=== PATIENT | male | born 1955 | race Caucasian/White ===

== ENCOUNTER → 2016-12-27 | Outpatient (CLI) | payer BC ==
[~2016-12-27] MED LIST: ACET-1256 PO; ACET325T96 PO; ALBINSX INH; ALBUAER2 INH; ATOR10TA88 PO; BISA10SU7 PR; CEFT1INJ6 IV; CLON1TAB3 PO; CNCI50 IV; CRG3125 PO; CYCL0.052 OPB; CYCL5TAB PO; DAPT500I IV; DOCU100C31 PO; ENOX40IN SQ; FLUO40CA8 PO; FLUT0.15 NAE; FRS/40 PO; FURO-85 PO; FURO80TA63 PO; GABA-113 PO; GABA600T PO; INSDGI SC; INSDGIPEN SC; INSU1INJ2 SC; INSUINJ4 SQ; LACT10SO17 PO; MCRK20 PO; MELA3TAB PO; METO50TA16 PO; METO50TA17 PO; MOME50SP5 NAE; MOME6000 NAE; NF656 TD; NVLGI SC; NXM/40 PO; OMEP40CA41 PO; ONDA4TAB46 PO; OXYC-57 PO; OXYC1TAB3 PO; PANT40TA PO; PENT400T PO; PENT400T2 PO; POLY1POW2 PO; POTA-74 PO; POTA20TA16 PO; PRAM1TAB6 PO; PRED-301 PO; PRED10TA PO; PRED20TA PO; PROM25IN13 IV; PROP10TA7 PO; PROP20TA67 PO; Potassium Chloride PO; QUET1TAB30 PO; REPA1TAB5 PO; RIFA300C34 PO; RIFA550T2 PO; ROTI1DIS3 TD; RSTOPS OP; RXC/5 PO; SIME80CH40 PO; SIMV20TA2 PO; SPIR50TA2 PO; SPR25 PO; SULF800T23 PO; VNTHFA/IN INH; XPNINS125 INH; [UNRECOGNIZED DRUG - CODE]; [UNRECOGNIZED DRUG - CODE] FLUSH; [UNRECOGNIZED DRUG - CODE] IM
--- NOTE | 2016-12-27 13:14 | DIAGNOSTIC IMAGING REPORT ---
MRI LUMBAR SPINE W/O CONTRAST CLINICAL HISTORY: Severe right-sided lumbar radiculopathy. TECHNIQUE: Sagittal and axial T1, T2 and STIR images were obtained. COMPARISON STUDY: No previous studies for comparison. OBSERVATIONS: There is a focal fatty rest/hemangioma at the S2 level. L1-2: No disc protrusions or extrusions. No evidence of spinal canal or neural foraminal compromise. L2-3: There is a tiny left paracentral disc protrusion. There is no significant spinal or foraminal stenosis. L3-4: No disc protrusions or extrusions. No evidence of spinal canal or neural foraminal compromise. L4-5: There is a large extruded disc herniation posteriorly on the right. This deforms the thecal sac, and likely impinges on the right L5 nerve root. L5-S1: No disc protrusions or extrusions. No evidence of spinal canal or neural foraminal compromise. The conus medullaris and cauda equina appear normal. IMPRESSION: 1. Large right-sided extruded disc herniation at the L4-5 level. The disc material extends posterior to the L5 vertebra. There is secondary thecal sac deformity and probable impingement on the right L5 nerve root 2. Tiny left paracentral disc protrusion at the L2-3 level. Electronically signed by: Ian Jones M.D. 12/27/2016 1:12 PM Dictated Date/Time: 12/27/2016 1:07 PM
== END | disposition home or self-care (01) ==
LOC: C.MRI 12:07
PROVIDERS: ATTEND Internal Medicine
DX: M54.16 Radiculopathy, lumbar region (principal); M51.26 Other intervertebral disc displacement, lumbar region

== ENCOUNTER → 2017-01-26 | Outpatient (CLI) | payer BC ==
--- NOTE | 2017-01-26 09:46 | DIAGNOSTIC IMAGING REPORT ---
ABDOMINAL ULTRASOUND COMPLETE HISTORY: Pain. Nausea. ABD PAIN, NAUSEA. COMPARISON: None. FINDINGS: Pancreas: The pancreas demonstrates a normal echotexture. Liver: Fatty infiltration Gallbladder: Slight thickening of the gallbladder wall at 4 mm. Trace amount of pericholecystic fluid. CBD: 8 mm considered slightly prominent Kidneys: No hydronephrosis. Spleen: Mildly enlarged at 14 cm Aorta: Normal in caliber. IVC: Patent. IMPRESSION: 1 slight gallbladder wall thickening with a trace amount of pericholecystic edematous change 2. Mild prominence extra hepatic common bile duct at 8 mm. 3. Fatty infiltration of liver. 4. Splenomegaly at 14 cm. 5. Possibility of a calculus cholecystitis is a diagnostic possibility. Biliary scanning would be helpful in this regard. Electronically signed by: Naga Vázquez M.D. 01/26/2017 9:45 AM Dictated Date/Time: 01/26/2017 9:43 AM
== END | disposition home or self-care (01) ==
LOC: C.ULTR 07:21
PROVIDERS: ATTEND Internal Medicine
DX: R10.10 Upper abdominal pain, unspecified (principal); R11.0 Nausea; K76.0 Fatty (change of) liver, not elsewhere classified; R16.1 Splenomegaly, not elsewhere classified; R93.2 Abnormal findings on diagnostic imaging of liver and biliary tract

== ENCOUNTER → 2017-01-31 | Outpatient (CLI) | payer BC ==
[~2017-01-31] MED LIST changes: +SINCALIDE INJ 2 MCG in SODIUM CHLORIDE 0.9% 100ML 100 ML IV ONE
--- NOTE | 2017-01-31 12:57 | DIAGNOSTIC IMAGING REPORT ---
NUCLEAR MEDICINE HEPATOBILIARY SCAN WITH GALLBLADDER EJECTION FRACTION CLINICAL HISTORY: Suspected calculus cholecystitis. COMPARISON: Abdominal ultrasound January 26, 2017. TECHNIQUE: 5.4 mCi of technetium 99m Choletec IV was injected at 10:30 AM on January 31, 2017. Immediately following injection, imaging of the abdomen was carried out for 60 minutes in the anterior projection. At this time, 2 mcg of Sincalide was injected IV as per protocol. Imaging was performed for an additional 45 minutes to estimate a gallbladder ejection fraction. FINDINGS: Hepatic uptake of radiotracer is prompt and homogeneous. Radiotracer is first identified within the gallbladder and common bile duct at 15 minutes. Following injection of sincalide, normal gallbladder emptying was noted with estimated ejection fraction of 77%. Normal is greater than 30-35%. IMPRESSION: 1. Normal hepatobiliary scan. No evidence of acute or chronic cholecystitis. 2. Normal gallbladder ejection fraction of 77%. Electronically signed by: Shayne Buchanan M.D. 01/31/2017 12:55 PM Dictated Date/Time: 01/31/2017 12:46 PM
== END | disposition home or self-care (01) ==
LOC: C.NUCL 10:07
PROVIDERS: ATTEND Internal Medicine
DX: K80.20 Calculus of gallbladder without cholecystitis without obstruction (principal)

== ENCOUNTER → 2017-02-03 | Outpatient (CLI) | payer BC ==
[~2017-02-03] MED LIST changes: -SINCALIDE INJ 2 MCG in SODIUM CHLORIDE 0.9% 100ML 100 ML IV ONE
== END | disposition home or self-care (01) ==
LOC: C.LABSPEC 12:30
PROVIDERS: ATTEND Internal Medicine
DX: E11.9 Type 2 diabetes mellitus without complications (principal); Z12.11 Encounter for screening for malignant neoplasm of colon

== ENCOUNTER → 2017-02-03 | Outpatient (CLI) | payer BC | END | disposition home or self-care (01) | LOC: C.LABSPEC 18:01 | PROVIDERS: ATTEND Internal Medicine | DX: Z12.11 Encounter for screening for malignant neoplasm of colon (principal) ==

== ENCOUNTER → 2017-02-10 | Outpatient (CLI) | payer BC ==
[~2017-02-10] MED LIST changes: +OPTIRAY 320 IV PRN
--- NOTE | 2017-02-10 12:30 | DIAGNOSTIC IMAGING REPORT ---
CT ABDOMEN COMBO CT DOSE: 2843.42 mGy.cm CLINICAL HISTORY: NAUSEA, WEIGHT LOSS,VOMITING *scoliosis. Liver lesions. TECHNIQUE: Unenhanced images were obtained through the upper abdomen. Patient was then scanned in a dynamic helical fashion during intravenous administration of 117 cc Optiray 320. Arterial phase and portal phase imaging was performed. COMPARISON STUDY: None. FINDINGS: The visualized portions the lung bases reveal mediastinal and hilar lymphadenopathy with areas of calcification. There is low volume ascites. There is a 4 mm left renal calculus. Postcontrast images reveal no space-occupying hepatic masses. The portal vein is patent. There is a slight nodular contour of the liver. Cirrhosis is suspected. There is recannulization of the umbilical vein. There is low volume ascites. There is nonspecific pericholecystic edema which may be secondary to hepatocellular disease. There is a tiny calcification abutting the gallbladder wall. No splenic masses are visualized. The spleen is enlarged measuring 15.5 cm. No pancreatic masses are visualized. No adrenal masses are visualized. No solid renal masses are visualized. There are multiple left renal hypodensities, the largest of which measures 8 mm. These likely represent cysts. There is no evidence of abdominal aortic dilatation. There is minimal mesenteric edema. There are scattered mildly prominent retroperitoneal and peripancreatic lymph nodes, likely reactive. IMPRESSION: 1. Cirrhotic morphology of the liver. No hepatic masses identified. Recannulization of the umbilical vein. 2. Splenomegaly 3. Low volume ascites 4. Nonobstructing left renal calculus 5. Gallbladder wall edema/pericholecystic fluid, likely secondary to hepatocellular disease 6. Mildly prominent retroperitoneal and peripancreatic lymph nodes, likely reactive. 7. Mediastinal and hilar lymphadenopathy Electronically signed by: Ian Jones M.D. 02/10/2017 12:29 PM Dictated Date/Time: 02/10/2017 12:21 PM
== END | disposition home or self-care (01) ==
LOC: C.CTS 11:41
PROVIDERS: ATTEND Internal Medicine Gastroenterology
DX: R11.0 Nausea (principal); K74.60 Unspecified cirrhosis of liver; N20.0 Calculus of kidney; R16.1 Splenomegaly, not elsewhere classified; R59.0 Localized enlarged lymph nodes

== ENCOUNTER → 2017-02-14 | Outpatient (CLI) | payer BC ==
[~2017-02-14] MED LIST changes: -OPTIRAY 320 IV PRN
--- NOTE | 2017-02-14 11:24 | DIAGNOSTIC IMAGING REPORT ---
MRI abdomen MRCP CLINICAL HISTORY: ABNORMAL LFT STAT elevated liver function tests TECHNIQUE: Multi axial MRI acquisition COMPARISON STUDY: CT dated 02/10/2017 FINDINGS: Lung bases appear clear. Components of hepatic cirrhosis. Trace perihepatic ascites. Gallbladder shows slightly edematous wall with a trace mastoid fluid. Biliary ductal system on the MRCP comparison study is unremarkable. There is no evidence for choledocholithiasis. Signal characteristics of the pancreas are unremarkable. Kidneys show moderate cortical scarring. There are negative for hydronephrosis. There is a 1 cm left renal cyst. Bowel pattern is nonobstructive. Moderate splenomegaly. IMPRESSION: 1. Mild hepatic cirrhotic change. 2. Trace Ascites. 3. Moderate splenomegaly. 4. Negative MRCP component of the study. 5. Slight gallbladder wall thickening and/or trace cholecystic edematous change raising possibility of changes secondary to hepatocellular dysfunction, although possibly of a calculus cholecystitis is not excluded. Electronically signed by: Naga Vázquez M.D. 02/14/2017 11:22 AM Dictated Date/Time: 02/14/2017 11:16 AM
== END | disposition home or self-care (01) ==
LOC: C.MRI 10:14
PROVIDERS: ATTEND Internal Medicine Gastroenterology
DX: R79.89 Other specified abnormal findings of blood chemistry (principal)

== ENCOUNTER 2017-03-08 12:11 | Emergency (ER) | payer BC ==
[~2017-03-08] VITALS: Ht 172.7 cm; Wt 105.9 kg
[~2017-03-08 12:11] MED LIST changes: -ACET-1256 PO; -ACET325T96 PO; -ALBINSX INH; +ATOR10TA82 PO; -ATOR10TA88 PO; -BISA10SU7 PR; -CEFT1INJ6 IV; -CNCI50 IV; -CYCL0.052 OPB; -CYCL5TAB PO; -DAPT500I IV; -DOCU100C31 PO; -ENOX40IN SQ; -FLUO40CA8 PO; -FLUT0.15 NAE; -FRS/40 PO; -FURO-85 PO; -FURO80TA63 PO; -GABA-113 PO; -GABA600T PO; -INSDGI SC; -INSDGIPEN SC; -INSU1INJ2 SC; -LACT10SO17 PO; -MCRK20 PO; -MELA3TAB PO; -METO50TA16 PO; -METO50TA17 PO; -MOME6000 NAE; -NF656 TD; -OMEP40CA41 PO; -ONDA4TAB46 PO; -OXYC-57 PO; -OXYC1TAB3 PO; -PANT40TA PO; -PENT400T2 PO; -POLY1POW2 PO; -POTA20TA16 PO; -PRED10TA PO; -PRED20TA PO; -PROM25IN13 IV; -PROP10TA7 PO; -PROP20TA67 PO; -Potassium Chloride PO; -QUET1TAB30 PO; -REPA1TAB5 PO; -RIFA300C34 PO; -RIFA550T2 PO; -RXC/5 PO; -SIME80CH40 PO; -SIMV20TA2 PO; -SPIR50TA2 PO; -SPR25 PO; -VNTHFA/IN INH; -XPNINS125 INH; -[UNRECOGNIZED DRUG - CODE] FLUSH
[2017-03-08 12:32] VITALS: TEMP 36.7; Ht 172.7 cm; Wt 105.9 kg
[2017-03-08] MEDS ORDERED: MoRPHine SULFATE 10 MG/ML CARP/VIAL IV STA (13:18)
[2017-03-08] MEDS ORDERED: ONDANSETRON INJ 2 MG/ML 2 ML VIAL IV STA (13:18)
[2017-03-08] MEDS ORDERED: SODIUM CHLORIDE 0.9% 500ML 500 ML IV STA (13:27)
[2017-03-08] MEDS ORDERED: MoRPHine SULFATE 4 MG/ML 1 ML CARP\\VIAL ONE (13:56)
[2017-03-08 14:08] LABS: HEMATOCRIT 39.6 % (42-52); MEAN CELL VOLUME 98.3 fL (80-100); MEAN CORPUSCULAR HGB CONC 33.6 g/dl (32-36); MEAN PLATELET VOLUME 11.3 fL (7.4-10.4); PLATELET COUNT 60 K/uL (130-400); RED BLOOD COUNT 4.03 M/uL (4.7-6.1); WHITE BLOOD COUNT 4.58 K/uL (4.8-10.8)
[2017-03-08 14:18] LABS: BUN/CREATININE RATIO 14.7 (10-20); CALCIUM 8.7 mg/dl (8.5-10.1); CREATININE 0.76 mg/dl (0.60-1.40); POTASSIUM 3.4 mmol/L (3.5-5.1)
[2017-03-08 14:23] LABS: BASO % 0.7 %; BASO ABS # 0.03 K/uL (0-0.2); COMPLETE YES; EOS % 1.3 %; IG% 0.2 %; LYMPH % 11.6 %; LYMPH ABS # 0.53 K/uL (1.2-3.4); MONO % 10.7 %; NEUT % 75.5 %
[2017-03-08] MEDS ORDERED: HYDROmorphone INJ 0.5 MG/0.5 ML SYR IV STA ×2 (14:38→16:51)
[2017-03-08] MEDS ORDERED: VNTHFA/IN INH (14:46)
[2017-03-08] MEDS ORDERED: CYCL0.052 OPB (14:46)
[2017-03-08] MEDS ORDERED: MOME6000 NAE (14:46)
[2017-03-08] MEDS ORDERED: PRED10TA PO (14:46)
[2017-03-08] MEDS ORDERED: GABA600T PO (14:46)
[2017-03-08] MEDS ORDERED: INSDGIPEN SC (14:46)
[2017-03-08] MEDS ORDERED: INSU1INJ2 SC (14:46)
[2017-03-08] MEDS ORDERED: OXYC1TAB3 PO (16:54)
[2017-03-08 17:26] VITALS: BP 128/79; PULSE 74; O2SAT 95
--- NOTE | 2017-03-08 18:39 | EMERGENCY ROOM VISIT NOTE ---
History First contact with patient: 13:03 Chief Complaint: BACK PAIN Stated Complaint: SEVERE BACK PAIN History of Present Illness The patient is a 62 year old male who presents to the Emergency Room with his with complaints of severe lower back pain radiating down both legs. The patient reports a recent MRI showing a large herniated disc. He was seen by Dr. Alexis who wanted to try conservative management. The patient reports that he has been doing well over the past few months until he twisted his back on Monday and now has worsening pain. The patient reports that he has had pain radiating all the way down the right lower extremity to the foot, which is unchanged over the past few months. He now reports increasing pain radiating into the left posterior thigh and buttock. He denies any change in lower extremity strength, saddle anesthesias or bladder/bowel difficulties/ incontinence. The patient reports that he has an appointment at the [facility] this Monday at 7:30 AM. The patient reports that "there is no way in hell I will make it until that appointment". He rates his discomfort a 9 out of 10. The reports that the patient has been taking Tylenol with Codeine at home without any pain relief. This medication was prescribed by his PCP, Dr. Yas Savage. 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 Social History Smoking Status: Never Smoker Alcohol Use: none Drug Use: none Marital Status: Housing Status: lives with family Occupation Status: retired Current/Historical Medications Scheduled Albuterol Hfa (Ventolin Hfa), 2-4 PUFFS INH Q6H Atorvastatin (Lipitor), 10 MG PO DAILY Clonazepam (Klonopin), 1.5 MG PO HS Cyclosporine (Ophth) (Restasis), 1 DROP OP BID Esomeprazole Magnesium (Nexium), 40 MG PO DAILY Gabapentin (Neurontin), 600 MG PO HS Insulin Aspart (Novolog Penfill), SC AC Insulin Glargine (Lantus Solostar), 40 UNITS SC AMPM Mometasone Furoate (Nasal) (Mometasone Furoate), 2 SPRAYS JORGE DAILY Potassium Chloride (Potassium Chloride Er), 30 MG PO BID Pramipexole Dihydrochloride (Pramipexole Dihydrochlori), 1 MG PO HS Prednisone Tab (Prednisone), 10 MG PO DAILY Scheduled PRN Oxycodone Ir (Roxicodone Ir), 1-2 TAB PO Q4H PRN for Pain Allergies Coded Allergies: Celecoxib (Verified Allergy, Intermediate, HIVES, 03/08/17) Penicillins (Verified Allergy, Intermediate, HIVES, 03/08/17) Physical Exam Vital Signs Date Time Temp Pulse Resp B/P Pulse Ox O2 Delivery O2 Flow Rate FiO2 03/08/17 17:26 74 18 128/79 95 03/08/17 15:09 81 14 131/76 92 Room Air 03/08/17 13:22 89 16 115/70 96 Room Air 03/08/17 12:32 36.7 86 18 114/72 93 Room Air Physical Exam CONSTITUTIONAL: Obese male, alert and oriented X 3 with positive affect. The patient appears in moderate discomfort. HEENT: Normocephalic, atraumatic. Pupils equal, round and reactive. NECK: Full active range of motion without discomfort. RESPIRATORY: Clear to auscultation bilaterally with no wheezing, crackles, rhonchi or stridor. CARDIOVASCULAR: Regular rate and rhythm with no murmurs, rubs or gallops. GASTROINTESTINAL: Bowel sounds present in all quadrants. Soft and nontender to palpation. MUSCULOSKELETAL: Examination shows diffuse tenderness to palpation of bilateral lower lumbar paraspinous muscles and SI joints. Negative logroll bilaterally. Positive right straight leg raise. Ankle plantar/torsion flexion strength is 4 out of 5 and symmetric bilaterally. INTEGUMENTARY: No rash or other significant dermatologic conditions noted. NEUROLOGIC: Lower extremity deep tendon reflexes are 2+ and symmetric bilaterally. The patient does have decreased sensation in the lower extremities from neuropathy. Medical Decision & Procedures Laboratory Results 03/08/17 13:34 Red Blood Count 4.03, Mean Corpuscular Volume 98.3, Mean Corpuscular Hemoglobin 33.0, Mean Corpuscular Hemoglobin Concent 33.6, Mean Platelet Volume 11.3, Neutrophils (%) (Auto) 75.5, Lymphocytes (%) (Auto) 11.6, Monocytes (%) (Auto) 10.7, Eosinophils (%) (Auto) 1.3, Basophils (%) (Auto) 0.7, Neutrophils # (Auto ) 3.46, Lymphocytes # (Auto) 0.53, Monocytes # (Auto) 0.49, Eosinophils # (Auto ) 0.06, Basophils # (Auto) 0.03 03/08/17 13:34 Test 03/08/17 13:34 White Blood Count 4.58 K/uL (4.8-10.8) Red Blood Count 4.03 M/uL (4.7-6.1) Hemoglobin 13.3 g/dL (14.0-18.0) Hematocrit 39.6 % (42-52) Mean Corpuscular Volume 98.3 fL (80-100) Mean Corpuscular Hemoglobin 33.0 pg (25-34) Mean Corpuscular Hemoglobin Concent 33.6 g/dl (32-36) Platelet Count 60 K/uL (130-400) Mean Platelet Volume 11.3 fL (7.4-10.4) Neutrophils (%) (Auto) 75.5 % Lymphocytes (%) (Auto) 11.6 % Monocytes (%) (Auto) 10.7 % Eosinophils (%) (Auto) 1.3 % Basophils (%) (Auto) 0.7 % Neutrophils # (Auto) 3.46 K/uL (1.4-6.5) Lymphocytes # (Auto) 0.53 K/uL (1.2-3.4) Monocytes # (Auto) 0.49 K/uL (0.11-0.59) Eosinophils # (Auto) 0.06 K/uL (0-0.5) Basophils # (Auto) 0.03 K/uL (0-0.2) RDW Standard Deviation 57.3 fL (36.4-46.3) RDW Coefficient of Variation 16.0 % (11.5-14.5) Immature Granulocyte % (Auto) 0.2 % Immature Granulocyte # (Auto) 0.01 K/uL (0.00-0.02) Anion Gap 6.0 mmol/L (3-11) Est Creatinine Clear Calc Drug Dose 115.8 ml/min Estimated GFR () 111.7 Estimated GFR (Non- 96.4 BUN/Creatinine Ratio 14.7 (10-20) Calcium Level 8.7 mg/dl (8.5-10.1) The above labs were reviewed. Medications Administered Medications (Trade) Dose Ordered Sig/Nathalia Route Start Time Stop Time Status Last Admin Dose Admin Ondansetron HCl 4 mg 4 mg NOW STAT IV 03/08/17 13:18 03/08/17 13:21 DC 03/08/17 13:57 4 MG Sodium Chloride (Nss 500ml) 500 ml @ 999 mls/hr Q31M STAT IV 03/08/17 13:27 03/08/17 13:57 DC 03/08/17 13:57 999 MLS/HR Morphine Sulfate (MoRPHine SULFATE INJ) 8 mg STK-MED ONCE .ROUTE 03/08/17 13:56 03/08/17 13:57 DC 03/08/17 13:56 8 MG Hydromorphone HCl (Dilaudid Inj) 0.5 mg NOW STAT IV 03/08/17 14:38 03/08/17 14:45 DC 03/08/17 15:09 0.5 MG Hydromorphone HCl (Dilaudid Inj) 0.5 mg NOW STAT IV 03/08/17 16:51 03/08/17 16:52 DC 03/08/17 17:00 0.5 MG Procedure 1. IV hydration: The patient received a normal saline 500 mL bolus 2. IV medications: The patient was initially administered morphine 8 mg and Zofran 4 mg IVP. He received an additional dose of Dilaudid 0.5 mg IVP after the initial morphine did not provide any significant relief. The patient received an additional Dilaudid 0.5 mg IVP prior to discharge. ED Course Patient history and physical exam were performed. Nurse's notes were reviewed. Vital signs were reviewed and were normal except for an O2 saturation of 93% on room air. I also reviewed the patient's last MRI dated 12/27/16, showing a large right sided extruded disc herniation at L4 5 level. The disc material extends posterior to the L5 vertebra. There is secondary thecal sac deformity and probable impingement on the right L5 nerve root. A tiny left paracentral disc protrusion at L2 3 level is also noted. For best titration of pain control, I did suggest establishing an IV. The patient was in agreement. In case the patient will require surgical intervention within the next 30 days, I also elected to draw labs. IV access was established, and the patient received analgesics and antiemetics as discussed in the previous Procedure section. The patient did not have any significant relief after his first IV dose of morphine. He was then given IV Dilaudid with moderate relief of his pain. Labs were reviewed and were normal. At this point, I discussed further disposition with the patient. 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 He reports that he cannot miss this closing. He also stated that if he would be admitted for simply pain control, he would rather go home. He would prefer to have surgery if he does come into the hospital. At this point, I discussed the case further with Dr. Alexis, who reports that the surgery would not happen a timely manner for him to attend the closing. He suggested hospitalist consultation as needed if needed for additional pain management. Otherwise he will see the patient in his office on Monday. This was discussed with the patient. He elected discharge with stronger pain medications. The patient was administered an additional IV Dilaudid prior to discharge, and was provided a prescription for OxyIR 5 mg. He was warned about sedation and constipation while taking this medication. The patient also on until no if he could take prednisone as he has a lot of this medication at home. The patient reports that it does not really miss with his blood glucose levels. He was encouraged to start a prednisone taper at 60 mg, decreasing 10 mg every day until finished. He will follow-up with the pain clinic on Monday, and call Dr. Alexis's office to arrange further follow-up. The patient was instructed to return to the emergency department for any uncontrollable pain or other concerning neurologic symptoms. I did brief patient and regarding the symptoms to watch for that are associated with cauda equina syndrome or other emergent compressive neuropathy. I also instructed him to call his PCP to advise him of his ED evaluation, and to provide additional analgesics as needed. The patient was happy with plan of care, voiced understanding of all discharge instructions, and rated his pain a 4 out of 10 at the conclusion of my exam. Medical Decision At this point, the patient has an MRI proven disc herniation with fragment. History and clinical exam does not show any symptoms consistent with an emergent compressive neuropathy or cauda equina syndrome. The patient is currently refusing hospitalist evaluation or observation for his pain. Impression Primary Impression: Lumbar disc herniation with radiculopathy Departure Information Prescriptions Oxycodone Ir (Roxicodone Ir) 5 Mg Tab 1-2 TAB PO Q4H Y for Pain, #36 TAB For Initial Treatment Prov: Jose Miguel Rivera PA 03/08/17 Referrals Hu Ackerman M.D. (PCP) Patient Instructions My [facility]
[2017-03-13] MEDS ORDERED: FRS/40 PO (14:19)
[2017-03-13] MEDS ORDERED: FLUO40CA8 PO (14:19)
[2017-03-13] MEDS ORDERED: Potassium Chloride PO (14:19)
[2017-03-13] MEDS ORDERED: PENT400T2 PO (14:19)
[2017-03-14] MEDS ORDERED: OXYC-57 PO (09:32)
[2017-03-18] MEDS ORDERED: OXYC-57 PO (08:24)
[2017-04-09] MEDS ORDERED: DAPT500I IV (09:58)
[2017-04-09] MEDS ORDERED: XPNINS125 INH (09:58)
[2017-04-09] MEDS ORDERED: [UNRECOGNIZED DRUG - CODE] FLUSH (09:58)
[2017-04-09] MEDS ORDERED: SPR25 PO (09:58)
[2017-04-09] MEDS ORDERED: MCRK20 PO (09:58)
[2017-04-09] MEDS ORDERED: METO50TA17 PO (09:58)
[2017-07-22] MEDS ORDERED: ATOR10TA82 PO (01:13)
[2017-08-01] MEDS ORDERED: CNCI50 IV (08:17)
== END 2017-03-08 17:28 | disposition home or self-care (01) ==
LOC: C.EDB 12:12 → C.EDC 17:28
DX: M51.16 Intervertebral disc disorders with radiculopathy, lumbar region (principal); I10 Essential (primary) hypertension; E78.5 Hyperlipidemia, unspecified; E11.43 Type 2 diabetes mellitus with diabetic autonomic (poly)neuropathy; J45.909 Unspecified asthma, uncomplicated; D64.9 Anemia, unspecified; K21.9 Gastro-esophageal reflux disease without esophagitis; G47.30 Sleep apnea, unspecified; Z87.442 Personal history of urinary calculi; Z86.19 Personal history of other infectious and parasitic diseases; Z79.4 Long term (current) use of insulin; Z79.899 Other long term (current) drug therapy; Z88.0 Allergy status to penicillin; Z88.8 Allergy status to other drugs, medicaments and biological substances

== ENCOUNTER → 2017-03-10 | Outpatient (CLI) | payer BC ==
[~2017-03-10] MED LIST changes: +ACET-1256 PO; +ACET325T96 PO; +ALBINSX INH; -ALBUAER2 INH; +BISA10SU7 PR; +CEFT1INJ6 IV; +CNCI50 IV; -CRG3125 PO; +CYCL0.052 OPB; +CYCL5TAB PO; +DAPT500I IV; +DOCU100C31 PO; +ENOX40IN SQ; +FLUO40CA8 PO; +FLUT0.15 NAE; +FRS/40 PO; +FURO-85 PO; +FURO80TA63 PO; +GABA-113 PO; +GABA600T PO; +INSDGI SC; +INSDGIPEN SC; +INSU1INJ2 SC; -INSUINJ4 SQ; +LACT10SO17 PO; +MCRK20 PO; +MELA3TAB PO; +METO50TA16 PO; +METO50TA17 PO; -MOME50SP5 NAE; +MOME6000 NAE; +NF656 TD; -NVLGI SC; +OMEP40CA41 PO; +ONDA4TAB46 PO; +OXYC-57 PO; +OXYC1TAB3 PO; +PANT40TA PO; -PENT400T PO; +PENT400T2 PO; +POLY1POW2 PO; +POTA20TA16 PO; -PRED-301 PO; +PRED10TA PO; +PRED20TA PO; +PROM25IN13 IV; +PROP10TA7 PO; +PROP20TA67 PO; +Potassium Chloride PO; +QUET1TAB30 PO; +REPA1TAB5 PO; +RIFA300C34 PO; +RIFA550T2 PO; -ROTI1DIS3 TD; -RSTOPS OP; +RXC/5 PO; +SIME80CH40 PO; +SIMV20TA2 PO; +SPIR50TA2 PO; +SPR25 PO; -SULF800T23 PO; +VNTHFA/IN INH; +XPNINS125 INH; -[UNRECOGNIZED DRUG - CODE]; +[UNRECOGNIZED DRUG - CODE] FLUSH; -[UNRECOGNIZED DRUG - CODE] IM
--- NOTE | 2017-03-10 17:14 | DIAGNOSTIC IMAGING REPORT ---
MRI OF THE LUMBAR SPINE WITHOUT IV CONTRAST CLINICAL HISTORY: Low back pain. Lower extremity radiculopathy. COMPARISON STUDY: MRI of the lumbar spine dated 12/27/2016. TECHNIQUE: MRI of the lumbar spine is performed utilizing various T1 and T2-weighted sequences in the axial and sagittal planes. IV contrast was not administered for this examination. FINDINGS: Lumbar spine: Vertebral body height and alignment are maintained throughout the lumbar spine. Normal marrow signal intensity is preserved throughout the visualized bony structures. The transverse and spinous processes are intact as imaged. There is no evidence of spondylolysis. Minimal chronic degenerative endplate change is noted at L4-L5. Intervertebral discs: There is degenerative disc desiccation seen throughout the lumbar spine. Mild loss of height is noted at L2-L3. Spinal cord: The imaged spinal cord is normal in morphology and signal intensity. The conus medullaris terminates at the level of L1. The nerve roots of the cauda equina are normal in morphology. L1-L2: Unremarkable. L2-L3: There is broad-based posterior disc bulge eccentric to the left. This causes mild to moderate acquired compromise of the central canal with a minimum AP diameter of 8.5 mm. This causes left-sided subarticular stenosis, and likely impinges on the exiting left L2 and the transiting left L3 nerve roots. The neural foramina are patent. L3-L4: There is mild posterior disc bulge. The central canal and neural foramina are patent. L4-L5: There is a large posterior disc herniation eccentric to the right. An inferiorly extruded fragment measures up to 1.8 cm. This causes only minimal effacement of the right anterior thecal sac. The disc fragment impinges on the transiting right L5 nerve root. There is right-sided subarticular stenosis. Facet arthropathy causes minimal bilateral neural foraminal narrowing. L5-S1: Unremarkable. Sacrum: Visualized sacrum is normal in morphology and signal intensity. Soft tissues: The bladder wall appears mildly thickened and trabeculated suggesting chronic outlet obstruction. The paraspinous soft tissues are within normal limits. IMPRESSION: 1. Again seen is a large disc herniation eccentric to the right at L4-L5 with an inferiorly extruded fragment. This impinges on the transiting right L5 nerve root. 2. Progressive disc bulge at L2-L3 as compared to 12/27/2016. This causes mild to moderate acquired compromise of the central canal. 3. Additional findings as above. Dictated: 03/10/2017 2:56 PM Transcribed: 03/10/2017 5:13 PM EVONNE_Troy Electronically signed by: Gianni Hewitt M.D. 03/11/2017 1:18 AM Dictated Date/Time: 03/10/2017 2:56 PM
== END | disposition home or self-care (01) ==
PROVIDERS: ATTEND Orthopaedic Surgery Orthopaedic Surgery of the Spine
DX: M51.26 Other intervertebral disc displacement, lumbar region (principal); M48.06 Spinal stenosis, lumbar region; R29.818 Other symptoms and signs involving the nervous system

== ENCOUNTER 2017-03-24 17:49 | Inpatient (IN) | payer BC, OTHER ==
[~2017-03-24] VITALS: Ht 170.2 cm; Wt 95.9 kg
[~2017-03-24 17:49] MED LIST changes: -ACET-1256 PO; -ACET325T96 PO; -ALBINSX INH; -BISA10SU7 PR; -CEFT1INJ6 IV; -CNCI50 IV; -CYCL5TAB PO; -DAPT500I IV; -DOCU100C31 PO; -ENOX40IN SQ; -FLUT0.15 NAE; -FURO-85 PO; -FURO80TA63 PO; -GABA-113 PO; -GABA600T PO; -INSDGI SC; -LACT10SO17 PO; -MCRK20 PO; -MELA3TAB PO; -METO50TA16 PO; -METO50TA17 PO; -NF656 TD; -OMEP40CA41 PO; -ONDA4TAB46 PO; -OXYC1TAB3 PO; -PANT40TA PO; -POLY1POW2 PO; -POTA-74 PO; -POTA20TA16 PO; -PRED20TA PO; -PROM25IN13 IV; -PROP10TA7 PO; -PROP20TA67 PO; -QUET1TAB30 PO; -REPA1TAB5 PO; -RIFA300C34 PO; -RIFA550T2 PO; -RXC/5 PO; -SIME80CH40 PO; -SIMV20TA2 PO; -SPIR50TA2 PO; -SPR25 PO; -XPNINS125 INH; -[UNRECOGNIZED DRUG - CODE] FLUSH
[2017-03-24] MEDS ORDERED: ONDANSETRON INJ 2 MG/ML 2 ML VIAL IV STA (18:24)
[2017-03-24] MEDS ORDERED: SODIUM CHLORIDE 0.9% 1000ML 1,000 ML IV STA (18:24)
[2017-03-24] MEDS ORDERED: HYDROmorphone INJ 1 MG/ML SYR IV STA ×2 (18:24→19:25)
--- NOTE | 2017-03-24 18:28 | EMERGENCY ROOM VISIT NOTE ---
History Report prepared by Teresa: Master Flower Under the Supervision of: Dr. Abram Mohamud M.D. First contact with patient: 18:19 Chief Complaint: BACK PAIN Stated Complaint: LOWER BACK PAIN History of Present Illness The patient is a 62 year old male who presents to the Emergency Room via ALS with complaints of persistent back pain that started a week ago after having L4- L5 fusion surgery performed for a herniated disc. The patient had the surgery done by Dr. Gray. The patient has not seen Dr. Gray for a follow up yet, but it is scheduled for next week. Per the patient's family, the patient has had back pain ever since the surgery, and he has been taking so many pain medications, that the patient has been extremely groggy and is not eating or drinking. The patient has been noted to be barely getting out of bed due to the grogginess. He has been being given Oxycodone 5 mg. He was also given Flexeril 5 mg a couple times. The patient also has a hematoma on his back that started when he came back from the hospital. He is noted to have had a low grade fever last night, but his temperature has gone back down today. He is diabetic. Source of History: patient, family Onset: A week ago Position: back Timing: other (persistent) Associated Symptoms: + fevers (last night) Note: Associated symptoms: Groggy and hardly eating due to pain medications. Barely getting out of bed. Hematoma on back. Review of Systems See HPI for pertinent positives & negatives. A total of 10 systems reviewed and were otherwise negative. Past Medical & Surgical Medical Problems: (1) ACUTE RESP.FAIL.,SARCOIDOSIS (2) Anemia (3) Asthma (4) Diabetic autonomic neuropathy (5) GERD (gastroesophageal reflux disease) (6) HEPATIC ENCEPHALOPATHY. SARCOIDOSIS. DM2,POST LUMBAR DISC SURGERY (7) HERNIATED L4-L5 DISC (8) Hyperlipidemia (9) Hypertension (10) Kidney stone (11) Lumbar stenosis with neurogenic claudication (12) Obesity (13) Sarcoidosis (14) Septal defect (15) SEVERE CELLULITIS L LEG,SEPSIS SYNDROME (16) Sleep apnea (17) Thrombocytopenia Family History Patient reports no known family medical history. Social History Smoking Status: Never Smoker Alcohol Use: none Drug Use: none Marital Status: Housing Status: lives with family Occupation Status: retired Current/Historical Medications Scheduled Albuterol Hfa (Ventolin Hfa), 2-4 PUFFS INH Q6H Atorvastatin (Lipitor), 10 MG PO QAM Clonazepam (Klonopin), 1.5 MG PO HS Cyclosporine (Ophth) (Restasis), 1 DROP OPB BID Esomeprazole Magnesium (Nexium), 40 MG PO BID Fluoxetine (Prozac), 40 MG PO HS Furosemide (Lasix), 60 MG PO QAM Insulin Aspart (Novolog Penfill), SC AC Insulin Glargine (Lantus Solostar), 40 UNITS SC BID Mometasone Furoate (Nasal) (Mometasone Furoate), 2 SPRAYS JORGE DAILY Pentoxifylline (Trental), 400 MG PO TID Pramipexole Dihydrochloride (Pramipexole Dihydrochlori), 1 MG PO HS Prednisone Tab (Prednisone), 10 MG PO QAM [Potassium Chloride], 60 MEQ PO BID Scheduled PRN Oxycodone/Acetaminophen 5MG/325MG (Percocet 5MG/325MG), 1-2 TABLETS PO Q4H PRN for Pain Allergies Coded Allergies: Celecoxib (Verified Allergy, Intermediate, HIVES, 03/24/17) Penicillins (Verified Allergy, Intermediate, HIVES, 03/24/17) Physical Exam Vital Signs Date Time Temp Pulse Resp B/P Pulse Ox O2 Delivery O2 Flow Rate FiO2 03/24/17 21:28 88 14 95/56 93 Room Air 03/24/17 19:25 80 16 109/63 93 Room Air 03/24/17 18:09 82 03/24/17 17:59 37.5 80 18 116/67 97 Room Air Physical Exam GENERAL: Patient is a healthy-appearing well-nourished 62 year old male HEAD: Normocephalic atraumatic EYES: Ocular movements intact pupils equal and react to light OROPHARYNX mucous membranes are moist no exudates present no erythema or edema present NECK: Supple no nuchal rigidity CHEST: Good equal expansion LUNGS: Clear and equal to auscultation CARDIAC: Normal S1 and S2 ABDOMEN: Soft nontender no guarding BACK: Healing surgical incision. Large hematoma to left flank area. EXTREMITIES: No pain upon palpation normal muscle strength in all groups no clubbing cyanosis or edema NEURO: Patient is following commands is answering questions appropriately. Alert and oriented x3 Cranial Nerves 2-12 grossly intact Medical Decision & Procedures ER Provider Diagnostic Interpretation: CT results as stated below per my review and radiologist interpretation: CT LUMBAR SPINE WITHOUT CT DOSE: CLINICAL HISTORY: Low back pain TECHNIQUE: Helical images were acquired in transverse plane. Reformatted sagittal and coronal images were reviewed. CONTRAST: No contrast was administered COMPARISON STUDY: None. FINDINGS: L1-2 level: There is no evidence of significant disc bulge or focal herniation. There is no evidence of spinal or foraminal stenosis. L2-3 level: There is a circumferential disc bulge with mild spinal stenosis. L3-4 level: There is a circumferential disc bulge with mild spinal stenosis. L4-5 level: There are postsurgical changes of an L4-5 discectomy and interbody fusion. There is posterior pedicle screw fixation. There are postlaminectomy changes. L5-S1 level: There is no evidence of significant disc bulge or focal herniation. There is no evidence of spinal or foraminal stenosis. IMPRESSION: 1. No acute fractures or traumatic subluxations identified 2. Postsurgical changes the L4-5 level 3. Disc bulges with mild spinal stenosis at the L2-3 and L3-4 levels. Electronically signed by: Ian Jones M.D. 03/24/2017 7:30 PM Dictated Date/Time: 03/24/2017 7:28 PM CHEST ONE VIEW PORTABLE CLINICAL HISTORY: Fever COMPARISON STUDY: 03/14/2017 FINDINGS: The heart remains enlarged. There is mild superior mediastinal widening unchanged the prior study. There is aortic tortuosity. There is no focal pulmonary consolidation. There is no overt failure. There are no significant pleural effusions.[ IMPRESSION: AP portable study. Stable cardiomegaly. No evidence of focal pulmonary consolidation Electronically signed by: Ian Jones M.D. 03/24/2017 6:53 PM Dictated Date/Time: 03/24/2017 6:[address] SCAN OF THE ABDOMEN AND PELVIS WITHOUT CONTRAST CLINICAL HISTORY: Left flank pain COMPARISON STUDY: The 2416 TECHNIQUE: CT scan of the abdomen and pelvis was performed from the lung bases to the proximal femurs. Images are reviewed in the axial, sagittal, and coronal planes. IV contrast was not administered for this examination. CT DOSE: 1667.51 mGy.cm FINDINGS: Lower chest: There are small bilateral pleural effusions with by basilar atelectasis. There is mild subpleural interstitial thickening/edema. Liver: The liver is slightly serrated. Underlying cirrhosis cannot be excluded. There are no focal masses identified on this noncontrast study. Gallbladder: Cholelithiasis versus gallbladder wall calcification. Spleen: The spleen is enlarged measuring 13.7 cm Pancreas: Unremarkable. Adrenal glands: Unremarkable. Kidneys: There is no hydronephrosis. There is a 5 mm nonobstructing left renal calculus. No ureteral calculi are visualized Bowel: Evaluation the bowel is somewhat limited due to the presence of ascites. There are no transition zones indicate bowel obstruction. There is colonic diverticulosis. There is possible mild diverticulitis involving the distal descending colon. Peritoneum: There is a fat-containing right inguinal hernia. There is low to moderate volume ascites which is increased when compared the prior study. Vasculature: The abdominal aorta is normal in course and caliber. Adenopathy: There are mildly prominent aortocaval lymph nodes, unchanged the preceding study. Pelvic viscera: The bladder, and pelvic viscera are unremarkable. Skeletal structures: There are postsurgical changes at the L4-5 level. IMPRESSION: 1. Hepatic cirrhosis with splenomegaly 2. Increasing ascites which is mild to moderate in volume 3. No evidence of bowel obstruction. No evidence of free air 4. Nonobstructing 5 mm left renal calculus. No ureteral calculi identified 5. Diverticulosis. Suspected mild acute diverticulitis involving the distal descending colon 6. Small bilateral pleural effusions Electronically signed by: Ian Jones M.D. 03/24/2017 7:26 PM Dictated Date/Time: 03/24/2017 7:17 PM Laboratory Results Test 03/24/17 19:00 03/24/17 20:07 Toxic Granulation 1+ Platelet Estimate DECREASED Giant Platelets 1+ Lipase 82 U/L (73-393) Ethyl Alcohol mg/dL < 3.0 mg/dl (0-3) Labs reviewed by ED physician. Medications Administered Medications (Trade) Dose Ordered Sig/Nathalia Route Start Time Stop Time Status Last Admin Dose Admin Sodium Chloride (Nss 1000ml) 1,000 ml @ 999 mls/hr Q1H1M STAT IV 03/24/17 18:24 03/24/17 19:24 DC 03/24/17 18:42 999 MLS/HR Hydromorphone HCl (Dilaudid Inj) 1 mg NOW STAT IV 03/24/17 18:24 03/24/17 18:26 DC 03/24/17 18:41 1 MG Ondansetron HCl (Zofran Inj) 4 mg NOW STAT IV 03/24/17 18:24 03/24/17 18:26 DC 03/24/17 18:40 4 MG Hydromorphone HCl (Dilaudid Inj) 1 mg NOW STAT IV 03/24/17 19:25 03/24/17 19:26 DC 03/24/17 19:38 1 MG ED Course 1819: Past medical records reviewed. The patient was evaluated in room C6. A complete history and physical examination was performed. 1823: Ordered Zofran Inj 4 mg IV, Dilaudid Inj 1 mg IV, NSS 1000 ml @ 999 mls/ hr IV. Medical Decision Prior records/ancillary studies reviewed. Triage Nursing notes reviewed. Additional history obtained from family. Differential diagnosis: Etiologies such as musculoskeletal, disc herniation, fracture, aortic disease, metastatic disease, cord compression, discitis, infection, renal colic, gastrointestinal, acute exacerbation of chronic back pain, sciatica, cauda equina, as well as others were entertained. This is a 62-year-old male who presents to the emergency department with intractable back pain. The patient's family is concerned over how confused he has been at home. The patient is unable to ambulate by himself and his large frame is concerning to both his and his daughter. In the emergency department an IV was established, the patient given normal saline bolus, Dilaudid. The patient also has elevations in his T bili and the bili. For this reason he was sent for an ultrasound of his gallbladder. I did discuss the case with the hospitalist who agreed to admit the patient. Patient family were in agreement with the treatment plan. Impression Primary Impression: Thrombocytopenia Additional Impression: Intractable low back pain Scribe Attestation The scribe's documentation has been prepared under my direction and personally reviewed by me in its entirety. I confirm that the note above accurately reflects all work, treatment, procedures, and medical decision making performed by me. Departure Information Dispostion Still a Patient Referrals Hu Ackerman M.D. (PCP) Patient Instructions My [facility] Problem Qualifiers
--- NOTE | 2017-03-24 18:55 | DIAGNOSTIC IMAGING REPORT ---
CHEST ONE VIEW PORTABLE CLINICAL HISTORY: Fever COMPARISON STUDY: 03/14/2017 FINDINGS: The heart remains enlarged. There is mild superior mediastinal widening unchanged the prior study. There is aortic tortuosity. There is no focal pulmonary consolidation. There is no overt failure. There are no significant pleural effusions.[ IMPRESSION: AP portable study. Stable cardiomegaly. No evidence of focal pulmonary consolidation Electronically signed by: Ian Jones M.D. 03/24/2017 6:53 PM Dictated Date/Time: 03/24/2017 6:53 PM
[2017-03-24 19:10] LABS: HEMATOCRIT 36.5 % (42-52); MEAN CELL VOLUME 96.6 fL (80-100); MEAN CORPUSCULAR HEMOGLOBIN 31.7 pg (25-34); MEAN CORPUSCULAR HGB CONC 32.9 g/dl (32-36); RED BLOOD COUNT 3.78 M/uL (4.7-6.1); WHITE BLOOD COUNT 8.98 K/uL (4.8-10.8)
--- NOTE | 2017-03-24 19:27 | DIAGNOSTIC IMAGING REPORT ---
CT SCAN OF THE ABDOMEN AND PELVIS WITHOUT CONTRAST CLINICAL HISTORY: Left flank pain COMPARISON STUDY: The 2417 TECHNIQUE: CT scan of the abdomen and pelvis was performed from the lung bases to the proximal femurs. Images are reviewed in the axial, sagittal, and coronal planes. IV contrast was not administered for this examination. CT DOSE: 1667.51 mGy.cm FINDINGS: Lower chest: There are small bilateral pleural effusions with by basilar atelectasis. There is mild subpleural interstitial thickening/edema. Liver: The liver is slightly serrated. Underlying cirrhosis cannot be excluded. There are no focal masses identified on this noncontrast study. Gallbladder: Cholelithiasis versus gallbladder wall calcification. Spleen: The spleen is enlarged measuring 13.7 cm Pancreas: Unremarkable. Adrenal glands: Unremarkable. Kidneys: There is no hydronephrosis. There is a 5 mm nonobstructing left renal calculus. No ureteral calculi are visualized Bowel: Evaluation the bowel is somewhat limited due to the presence of ascites. There are no transition zones indicate bowel obstruction. There is colonic diverticulosis. There is possible mild diverticulitis involving the distal descending colon. Peritoneum: There is a fat-containing right inguinal hernia. There is low to moderate volume ascites which is increased when compared the prior study. Vasculature: The abdominal aorta is normal in course and caliber. Adenopathy: There are mildly prominent aortocaval lymph nodes, unchanged the preceding study. Pelvic viscera: The bladder, and pelvic viscera are unremarkable. Skeletal structures: There are postsurgical changes at the L4-5 level. IMPRESSION: 1. Hepatic cirrhosis with splenomegaly 2. Increasing ascites which is mild to moderate in volume 3. No evidence of bowel obstruction. No evidence of free air 4. Nonobstructing 5 mm left renal calculus. No ureteral calculi identified 5. Diverticulosis. Suspected mild acute diverticulitis involving the distal descending colon 6. Small bilateral pleural effusions Electronically signed by: Ian Jones M.D. 03/24/2017 7:26 PM Dictated Date/Time: 03/24/2017 7:17 PM
--- NOTE | 2017-03-24 19:31 | DIAGNOSTIC IMAGING REPORT ---
CT LUMBAR SPINE WITHOUT CT DOSE: CLINICAL HISTORY: Low back pain TECHNIQUE: Helical images were acquired in transverse plane. Reformatted sagittal and coronal images were reviewed. CONTRAST: No contrast was administered COMPARISON STUDY: None. FINDINGS: L1-2 level: There is no evidence of significant disc bulge or focal herniation. There is no evidence of spinal or foraminal stenosis. L2-3 level: There is a circumferential disc bulge with mild spinal stenosis. L3-4 level: There is a circumferential disc bulge with mild spinal stenosis. L4-5 level: There are postsurgical changes of an L4-5 discectomy and interbody fusion. There is posterior pedicle screw fixation. There are postlaminectomy changes. L5-S1 level: There is no evidence of significant disc bulge or focal herniation. There is no evidence of spinal or foraminal stenosis. IMPRESSION: 1. No acute fractures or traumatic subluxations identified 2. Postsurgical changes the L4-5 level 3. Disc bulges with mild spinal stenosis at the L2-3 and L3-4 levels. Electronically signed by: Ian Jones M.D. 03/24/2017 7:30 PM Dictated Date/Time: 03/24/2017 7:28 PM
[2017-03-24 19:35] LABS: BASO % 0.3 %; BASO ABS # 0.03 K/uL (0-0.2); COMPLETE YES; EOS % 1.2 %; GIANT PLATELETS 1+; IG% 0.3 %; LYMPH % 2.6 %; LYMPH ABS # 0.23 K/uL (1.2-3.4); MEAN PLATELET VOLUME 11.5 fL (7.4-10.4); MONO % 3.8 %; NEUT % 91.8 %; PLATELET COUNT 59 K/uL (130-400); PLT ESTIMATE DECREASED; TOXIC GRANULATION 1+
[2017-03-24 19:41] LABS: BUN/CREATININE RATIO 16.9 (10-20); CALCIUM 8.3 mg/dl (8.5-10.1); CREATININE 1.1 mg/dl (0.60-1.40); POTASSIUM 5.1 mmol/L (3.5-5.1)
[2017-03-24 20:22] LABS: INR 1.3 (0.9-1.1); PROTHROMBIN TIME (PATIENT) 13.9 SECONDS (9.0-12.0)
--- NOTE | 2017-03-24 21:03 | DIAGNOSTIC IMAGING REPORT ---
BILIARY ULTRASOUND CLINICAL HISTORY: Right upper quadrant abdominal pain COMPARISON STUDY: 01/26/2017, CT scan dated 03/24/2017 FINDINGS: The pancreas was nonvisualized. No gallstones are visualized. There is mild gallbladder wall thickening. Common bile duct measures 4 mm. There is low volume ascites. There is no right-sided hydronephrosis. The liver has a cirrhotic morphology. The study was very difficult from a technical standpoint. The patient was unable to cooperate with breath holding. IMPRESSION: 1. Technically limited study 2. Gallbladder wall thickening, a nonspecific finding which may be secondary to hepatic cirrhosis and ascites. No calculi identified 3. No evidence of significant ductal dilatation 4. Cirrhotic morphology of the liver 5. Low volume ascites 6. Nondiagnostic evaluation of the pancreas Electronically signed by: Ian Jones M.D. 03/24/2017 9:02 PM Dictated Date/Time: 03/24/2017 8:59 PM
[2017-03-24] MEDS ORDERED: LACTULOSE SYRUP 20 GM/30 ML UDC PO STA (21:40)
[2017-03-24] MEDS ORDERED: GLUCAGON FOR INJ 1 MG VIAL SQ PRN (22:45)
[2017-03-24] MEDS ORDERED: GLUCOSE 40% GEL 15 GM TUBE PO PRN (22:45)
[2017-03-24] MEDS ORDERED: DEXTROSE 50% 50 ML SYR IV PRN (22:45)
[2017-03-24] MEDS ORDERED: GLUCOSE 10 TABS/TUBE PO PRN (22:45)
[2017-03-24 22:55] VITALS: BP 126/81; PULSE 86; TEMP 37; O2SAT 90; BMI 38.7
[2017-03-24] MEDS: METRONIDAZOLE / NSS 500 MG in PREMIXED NSS 100 ML IV SCH (23:03)
[2017-03-25] MEDS: CIPROFLOXACIN / D5W 400 MG in PREMIXED IN D5W 200 ML IV SCH ×3 (00:13→23:54)
[2017-03-25] MEDS: HYDROmorphone INJ 0.5 MG/0.5 ML SYR IV PRN ×3 (00:14→21:50)
--- NOTE | 2017-03-25 05:12 | HISTORY & PHYSICAL EXAMINATION ---
DATE OF ADMISSION: 03/24/2017 A 62-year-old male, admitted through the Emergency Room with mental status changes and suspected hepatic encephalopathy. HISTORY OF PRESENT ILLNESS: The patient was hospitalized at [facility] from 03/14/2017 until 03/18/2017. He had a large herniation of his L4-L5 disc with compromise of the exiting right L5 root. He underwent surgery on 03/16/[address] Gray. The procedure was well-tolerated. His pain resolved rapidly after surgery. Prior to his surgery, he did have previously noted chronic thrombocytopenia and he did require platelet transfusion. His medical history is quite complex. He has longstanding sarcoidosis with pulmonary and extrapulmonary involvement. He has type 2 diabetes mellitus, chronic lung disease and arterial hypertension. He has been on chronic prednisone therapy. He also has a history of atrial septal defect which was repaired in 2014. He does have sleep apnea and he uses CPAP at home. He was recently diagnosed with liver cirrhosis. The patient was discharged home on 03/18/2017. According to the patient and his , he did well until this 03/22/2017. His pain was controlled. He has been taking his narcotic pain medication. He was ambulating, but then on Monday he started having low back pain. He was taking his narcotic pain medication more frequently. He denied any falls. The pain at times, radiated to his right buttock area. His family noted that he has been quite lethargic, difficult to arouse. He has not been eating or drinking sufficiently. The patient does make wine at home. In the past, I did not get the impression or the history that he was drinking wine frequently, but today it is confirmed that he does drink at least 3 glasses of wine per day. The patient was having low back pain. He called Dr. Gray's office in the afternoon. He was asked to call our office or come to the Emergency Room. His called the office describing his condition. I recommended that he will be brought to the Emergency Room for evaluation. He was brought by ambulance. He was evaluated by Dr. Mohamud. Multiple tests were done. There was no apparent problem related to his surgery. The patient was quite lethargic. I saw the patient in the Emergency Room. He was admitted for further treatment. PAST MEDICAL HISTORY: 1. Herniated L4-L5 disc with compromise of the exiting right L5 root as noted above, requiring surgery on 03/16/2017. 2. Sarcoidosis. Multiple manifestations including pulmonary and extrapulmonary. He has been treated by multiple physicians and in multiple medical centers. He has been on chronic prednisone therapy and multiple other medications were administered in the past. 3. Tonsillectomy in childhood. 4. Left inguinal hernia repair, back in 1996. 5. Left knee torn meniscus, required surgery in 1996. 6. Carpal tunnel release in the past. 7. Environmental allergies. 8. Hyperlipidemia. 9. Episode of GI bleed with hemoglobin down to 7 grams. He was hospitalized. He had a GI workup. He had endoscopies. No definite source of the bleeding was determined. 10. Type 2 diabetes mellitus, first diagnosed in 2007, initially thought to be steroid induced. 11. Arterial hypertension. 12. Sleep apnea, diagnosed in 2005. 13. History of bilateral cataract surgery. 14. Atrial septal defect, repaired in 2014, done at the [facility]. Since his ASD repair, he has not required any home oxygen. 15. History of severe cellulitis of his left lower leg, required hospitalization. 16. Chronic thrombocytopenia, he did require platelet transfusion prior to his surgery last month. SOCIAL HISTORY: He is , has 1 daughter. No history of any smoking. He drinks wine. Now I know that he drinks at least 3 glasses of wine per day. 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 He denied any excessive coffee, tea or soft drinks. He is retired. He is on disability because of his pulmonary disease and sarcoidosis. 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 He is now volunteering with different organizations including the [employer] FAMILY HISTORY: His father at age 76, was diabetic and had heart disease. His mother at age 84 of natural cause. He has 2 sisters, alive and well. His daughter was diagnosed with breast cancer, treated. ALLERGIES: 1. CELEBREX. 2. PENICILLIN. REVIEW OF SYSTEMS: He is quite lethargic. Sleeping. Arousable. He denied any headache. No dizziness, no lightheadedness. He denied any earache or sore throat. No chest pain, no shortness of breath. No abdominal pain, no nausea, no vomiting. No problem with his bowel movements. No problem urinating. He is complaining of low back pain. He has noticed significant increased swelling in his legs. He also has noted some increase in the girth of his abdomen. PHYSICAL EXAMINATION: GENERAL: Well-developed, in no acute distress. He is lethargic. His recorded weight is 112 kg, height 170.2 cm and BMI 38.7. VITAL SIGNS: Blood pressure 116/67, pulse 80, respirations 18, temperature 37.5 and oxygen saturation 97% on room air. SKIN: Warm and dry. No rash. Multiple ecchymotic areas. HEENT: Facial deformity related to his chronic steroid therapy. Normal oronasal and pharyngeal mucosa. Ears were normal. No problem with his vision. NECK: Supple. Nontender. No lymph node or thyroid enlargement. No JVD. Bilateral carotid bruits. CHEST: Normal. HEART: Regular heart sounds, 2/6 systolic murmur. LUNGS: Decreased breath sounds bilaterally. No wheezing. No rhonchi. ABDOMEN: Protruded. Soft. Nontender. He does have documented splenomegaly. Good bowel sounds. BACK: Surgical scar. EXTREMITIES: Bilateral leg edema. No clubbing, no cyanosis. Good pulses. NEUROLOGIC: He is lethargic, but arousable. No evidence of any lateralized deficits. LABORATORY TESTS: WBC count 8980, hemoglobin 12, hematocrit 36.5 and platelet count 59,000. Sodium 136, potassium 5.1, chloride 103, CO2 27, BUN 19, creatinine 1.1, glucose 96, calcium 8.3, total bilirubin 4.9, direct bilirubin 2.8, AST 61, ALT 30, alkaline phosphatase 178, total protein 6.0, albumin 2.3, lipase 82 and ammonia level 40. Prothrombin time 13.9, INR 1.3. Multiple imaging studies were done. Lumbar CT scan showed the postsurgical changes. No acute problems were noted. He does have some disc bulging at L2-L3 and L3-L4 levels, but definitely there is no evidence of any hematoma or any complication related to his recent surgery. His chest x-ray showed stable cardiomegaly. No evidence of any other abnormalities. CT scan of the abdomen and pelvis without contrast was done. He does have splenomegaly. Changes consistent with liver cirrhosis. He had evidence of increasing ascites, [id number]. There was no evidence of any bowel obstruction. He is noted to have a nonobstructing 5 mm of left renal calculus. Also, he is noted to have diverticulosis and suspected acute diverticulitis involving the distal descending colon. Small bilateral pleural effusions were noted. ASSESSMENT: 1. Mental status changes, thought to be related to hepatic encephalopathy. 2. Sarcoidosis; pulmonary and extrapulmonary manifestation. 3. Status post surgery for herniated L4-L5 disc with neurological compromise of the exiting right L5 root. 4. Sleep apnea. 5. Thrombocytopenia. 6. Suspected diverticulitis. 7. History of atrial septal defect requiring repair in 2014. 8. Type 2 diabetes mellitus. 9. Hyperlipidemia. 10. Arterial hypertension. 11. Cirrhosis of the liver. PLAN: The patient was admitted to a medical bed. Resuscitation level 1. All his laboratory tests were ordered. Many of his medications are being held at this time. I placed him on sliding scale coverage for his diabetes. Low dose Dilaudid for pain control. I think part of the problem with his admission and mental status changes is multifactorial including his pain medications, liver cirrhosis and hepatic encephalopathy. Because of the ascites and leg edema, I did not start any IV fluids. He was given lactulose. We will hold off on any diuretic at this time until his condition improves. I did not start any Aldactone. His potassium is 5.1, we will monitor that. The plan at this time is to monitor his liver chemistries. Monitor his encephalopathy. Increase his activity gradually. Control his pain with a minimal amount of pain medication possible. We will decide, once he is stable, whether he needs to go to the rehab because of his recent surgery, recurrent back pain and multiple other medical problems.
[2017-03-25] MEDS: ONDANSETRON INJ 8 MG in DEXTROSE 5% 50ML 50 ML IV PRN (05:38)
[2017-03-25] MEDS: METRONIDAZOLE / NSS 500 MG in PREMIXED NSS 100 ML IV SCH ×3 (06:23→22:58)
[2017-03-25 07:50] VITALS: BP 122/66; PULSE 84; TEMP 39.3; O2SAT 96
[2017-03-25] MEDS: ACETAMINOPHEN 500 MG TAB PO PRN ×2 (07:56→23:54)
[2017-03-25 07:58] LABS: HEMATOCRIT 34.6 % (42-52); MEAN CELL VOLUME 96.9 fL (80-100); MEAN CORPUSCULAR HEMOGLOBIN 33.3 pg (25-34); MEAN CORPUSCULAR HGB CONC 34.4 g/dl (32-36); RED BLOOD COUNT 3.57 M/uL (4.7-6.1); WHITE BLOOD COUNT 8.13 K/uL (4.8-10.8)
[2017-03-25 08:06] LABS: INR 1.4 (0.9-1.1); PROTHROMBIN TIME (PATIENT) 15.3 SECONDS (9.0-12.0)
[2017-03-25 08:09] LABS: BASO % 0.1 %; BASO ABS # 0.01 K/uL (0-0.2); COMPLETE YES; EOS % 0.7 %; IG% 1.1 %; LYMPH % 2.7 %; LYMPH ABS # 0.22 K/uL (1.2-3.4); MEAN PLATELET VOLUME 11.7 fL (7.4-10.4); MONO % 3.1 %; NEUT % 92.3 %; PLATELET COUNT 51 K/uL (130-400)
[2017-03-25 08:55] LABS: BUN/CREATININE RATIO 17.7 (10-20); CALCIUM 8.5 mg/dl (8.5-10.1); CREATININE 1.2 mg/dl (0.60-1.40); POTASSIUM 4.6 mmol/L (3.5-5.1)
[2017-03-25] MEDS ORDERED: PHYTONADIONE INJ 5 MG in SODIUM CHLORIDE 0.9% 50ML 50 ML IV ONE (09:00)
[2017-03-25 09:14] VITALS: O2SAT 96
[2017-03-25 09:23] LABS: MANUAL MICROSCOPIC REQUIRED? YES; REVIEW REQ? NO; SULFASALICYLIC ACID POS (NEG); URINE APPEARANCE CLEAR (CLEAR); URINE COLOR ORANGE; URINE SPECIFIC GRAVITY 1.024 (1.000-1.030)
[2017-03-25 09:56] LABS: URINE BACTERIA 1+ (NEG); URINE MUCUS PRESENT (NONE PRSENT)
[2017-03-25] MEDS: LACTULOSE SYRUP 30 GM/45 ML UDP PO SCH ×3 (10:00→21:54)
[2017-03-25] MEDS: INSULIN ASPART 100 UNITS/ML 3 ML PEN SC SCH ×4 (10:07→21:53)
[2017-03-25 11:12] VITALS: TEMP 37.7
--- NOTE | 2017-03-25 11:22 | PROGRESS NOTE ---
DATE: 03/25/2017 A 62-year-old male admitted with: 1. Hepatic encephalopathy. 2. Liver cirrhosis. 3. Low back pain. 4. Status post surgery for large herniation of L4-L5 disc. 5. Sarcoidosis with pulmonary and extrapulmonary manifestations. 6. Type 2 diabetes mellitus. 7. Chronic steroid therapy. The patient was admitted. He was started on lactulose already. I held most of his medications at this time. Prescribed Dilaudid 0.5 mg, the lowest dose possible because of the concern about the interaction between his narcotic pain medication and his liver cirrhosis and mental status. He is continuing to have low back pain but overall it is tolerable. He denied any headache or dizziness. No chest pain. He does get short of breath with activity. Difficult for him to move in bed or getting out of bed. It is very strength consuming. No nausea, at this time no vomiting. I was called very early this morning, he was complaining of nausea and he did receive IV Zofran. His nausea has subsided. No problem urinating. Has not had a bowel movement yet. He does have swelling in both legs. PHYSICAL EXAMINATION: GENERAL: Well developed, in no distress. VITAL SIGNS: Blood pressure 122/66, pulse 84, respiration 14, temperature 39.3, oxygen saturation 96% on 2 liter oxygen by nasal cannula. SKIN: Warm and dry. No rash. HEENT: Noticeably icteric, jaundice. No mucosal abnormality. NECK: No adenopathy, no thyromegaly. No JVD. HEART: Regular heart sounds with 2/6 systolic murmur. He does have a history of ASD which was repaired in 2014. LUNGS: Clear. ABDOMEN: Protruded. Soft. Nontender. BACK: Surgical scar. The area looks fine. There is no evidence of any inflammation. He does have bruising in the lower back. EXTREMITIES: Bilateral leg edema. No clubbing or cyanosis. TODAY'S LABORATORY TESTS: WBC count 8130, hemoglobin 11.9, hematocrit 34.6, platelet count 51,000. He does have chronic thrombocytopenia. Sodium 136, potassium 4.6, chloride 101, CO2 of 26, BUN 21, creatinine 1.2, glucose 121, calcium 8.4, total bilirubin 5.2, direct bilirubin 3.5, AST 71, ALT 31, alkaline phosphatase 171, total protein 6, albumin 2.3, ammonia 35. ASSESSMENT: 1. Hepatic encephalopathy. His mental status has definitely improved since yesterday. He is much more awake and alert and communicative. 2. Liver cirrhosis. 3. Status post surgery for herniated L4-L5 disc. 4. Sarcoidosis. 5. History of atrial septal defect which required repair. 6. Type 2 diabetes mellitus. 7. Chronic steroid therapy. PLAN: 1. All cultures are done and are pending. 2. Tylenol for his fever. 3. Continue with the ciprofloxacin and metronidazole for the suspected diverticulitis. 4. We will get him out of bed. 5. Continue monitoring his liver enzymes. 6. A dose of vitamin K was ordered. 7. GI consultation requested. 8. We will continue with his medications. IV antibiotics. Monitor his fever. Wait for the cultures.
[2017-03-25 11:54] VITALS: BP 118/72; PULSE 80; TEMP 37.7; O2SAT 96
[2017-03-25] MEDS ORDERED: VANCOMYCIN CONSULT ACTIVE PRN (13:45)
[2017-03-25] MEDS ORDERED: VANCOMYCIN INJ 2,600 MG in SODIUM CHLORIDE 0.9% 500ML 500 ML IV ONE (14:00)
--- NOTE | 2017-03-25 14:07 | Pharmacy Progress Note ---
Pharmacy Antibiotic Consult Date of Service: March 25, 2017. Pharmacy Dosing Scope Pharmacy is consulted to initiate Vanco IV dosing therapy, order appropriate labs and adjust drug dose/frequency. Subjective The patient is a 62 year old male admitted on March 24, 2017 at 21:29. Objective Height (Feet): 5 Height (Inches): 7.00 Weight (Kilograms): 112.000 Lab Results (24hrs): Test 03/24/17 19:00 03/24/17 20:07 03/25/17 06:58 03/25/17 07:45 White Blood Count 8.98 K/uL (4.8-10.8) 8.13 K/uL (4.8-10.8) Red Blood Count 3.78 M/uL (4.7-6.1) 3.57 M/uL (4.7-6.1) Hemoglobin 12.0 g/dL (14.0-18.0) 11.9 g/dL (14.0-18.0) Hematocrit 36.5 % (42-52) 34.6 % (42-52) Mean Corpuscular Volume 96.6 fL (80-100) 96.9 fL (80-100) Mean Corpuscular Hemoglobin 31.7 pg (25-34) 33.3 pg (25-34) Mean Corpuscular Hemoglobin Concent 32.9 g/dl (32-36) 34.4 g/dl (32-36) Platelet Count 59 K/uL (130-400) 51 K/uL (130-400) Mean Platelet Volume 11.5 fL (7.4-10.4) 11.7 fL (7.4-10.4) Neutrophils (%) (Auto) 91.8 % 92.3 % Lymphocytes (%) (Auto) 2.6 % 2.7 % Monocytes (%) (Auto) 3.8 % 3.1 % Eosinophils (%) (Auto) 1.2 % 0.7 % Basophils (%) (Auto) 0.3 % 0.1 % Neutrophils # (Auto) 8.24 K/uL (1.4-6.5) 7.50 K/uL (1.4-6.5) Lymphocytes # (Auto) 0.23 K/uL (1.2-3.4) 0.22 K/uL (1.2-3.4) Monocytes # (Auto) 0.34 K/uL (0.11-0.59) 0.25 K/uL (0.11-0.59) Eosinophils # (Auto) 0.11 K/uL (0-0.5) 0.06 K/uL (0-0.5) Basophils # (Auto) 0.03 K/uL (0-0.2) 0.01 K/uL (0-0.2) RDW Standard Deviation 57.7 fL (36.4-46.3) 59.2 fL (36.4-46.3) RDW Coefficient of Variation 16.4 % (11.5-14.5) 16.6 % (11.5-14.5) Immature Granulocyte % (Auto) 0.3 % 1.1 % Immature Granulocyte # (Auto) 0.03 K/uL (0.00-0.02) 0.09 K/uL (0.00-0.02) Toxic Granulation 1+ Platelet Estimate DECREASED Giant Platelets 1+ Prothrombin Time 13.9 SECONDS (9.0-12.0) 15.3 SECONDS (9.0-12.0) Prothromb Time International Ratio 1.3 (0.9-1.1) 1.4 (0.9-1.1) Sodium Level 136 mmol/L (136-145) 136 mmol/L (136-145) Potassium Level 5.1 mmol/L (3.5-5.1) 4.6 mmol/L (3.5-5.1) Chloride Level 103 mmol/L (98-107) 101 mmol/L (98-107) Carbon Dioxide Level 27 mmol/L (21-32) 26 mmol/L (21-32) Anion Gap 6.0 mmol/L (3-11) 9.0 mmol/L (3-11) Blood Urea Nitrogen 19 mg/dl (7-18) 21 mg/dl (7-18) Creatinine 1.10 mg/dl (0.60-1.40) 1.20 mg/dl (0.60-1.40) Est Creatinine Clear Calc Drug Dose 81.1 ml/min 74.3 ml/min Estimated GFR () 81.8 73.6 Estimated GFR (Non- 70.6 63.5 BUN/Creatinine Ratio 16.9 (10-20) 17.7 (10-20) Random Glucose 96 mg/dl (70-99) 121 mg/dl (70-99) Calcium Level 8.3 mg/dl (8.5-10.1) 8.5 mg/dl (8.5-10.1) Total Bilirubin 4.9 mg/dl (0.2-1) 5.2 mg/dl (0.2-1) Direct Bilirubin 2.8 mg/dl (0-0.2) 3.5 mg/dl (0-0.2) Aspartate Amino Transf (AST/SGOT) 61 U/L (15-37) 71 U/L (15-37) Alanine Aminotransferase (ALT/SGPT) 30 U/L (12-78) 31 U/L (12-78) Alkaline Phosphatase 178 U/L (45-117) 171 U/L (45-117) Total Protein 6.0 gm/dl (6.4-8.2) 6.0 gm/dl (6.4-8.2) Albumin 2.3 gm/dl (3.4-5.0) 2.3 gm/dl (3.4-5.0) Lipase 82 U/L (73-393) Ammonia 40.0 umol/L (11-32) 35.0 umol/L (11-32) Ethyl Alcohol mg/dL < 3.0 mg/dl (0-3) Urine Color ORANGE Urine Appearance CLEAR (CLEAR) Urine pH (4.5-7.5) Urine Specific [place] 1.024 (1.000-1.030) Urine Protein POS (NEG) Urine Glucose (UA) (NEG) Urine Ketones (NEG) Urine Occult Blood (NEG) Urine Nitrite (NEG) Urine Bilirubin (NEG) Urine Urobilinogen (NEG) Urine Leukocyte Esterase (NEG) Urine RBC 10-30 /hpf (0-4) Urine WBC 1-5 /hpf (0-5) Urine Epithelial Cells 5-10 /lpf (0-5) Urine Bacteria 1+ (NEG) Urine Mucus PRESENT (NONE PRSENT) Test 03/25/17 08:04 03/25/17 11:54 Bedside Glucose 103 mg/dl (70-99) 152 mg/dl (70-99) Micro Results: Item Value Date Time Blood Culture - Preliminary Resulted 03/24/17 2135 Blood Gram Positive Cocci Urine Culture Received 03/25/17 0745 Urine , Clean Catch Pending Blood Culture Received 03/24/17 2140 Blood Pending Assessment & Plan Pt is a 62 yo M p/w AMS and fever. He is growing GPC in 1/2 BC with sensitivities predicated on organism. Empiric Cipro and Flagyl are also on board. Current temp is 37.7. WBC/RR/HR all currently WNL. His renal fxn is currently not at baseline. eCrCl is currently at 74cc/min (baseline: 101-129cc/ min) and SCr 1.20 (baseline: 0.66-.88). Pt population p'kinetics: ke=0.0658, t1/ 2=10.5. He does not have a h/o of MDRO. He is immunosuppressed 2/2 to chronic prednisone tx. Due to his BMI he is at a risk of Vanco accumulation. Vanco: * Loading dose: Vanco 2600mg (23mg/kg) IV X 1 dose at 1400 to achieve a peak of ~39mcg/mL: * Vanco 1600mg (14mg/kg) IV every 12 hours starting at 2200 on 03/25/17. * Goal trough level estimate: between 15 - 20 mcg/mL. * Trough level has been ordered for: prior to the third MD. Thank you for consulting the pharmacy kinetic team and including us in the care of Mr. Santiago. Pharmacy will continue to follow and will adjust dose/frequency as necessary. Thank you
--- NOTE | 2017-03-25 14:24 | PROGRESS NOTE ---
DATE: 03/25/2017 A report from microbiology. One blood culture is positive for Gram positive cocci. The patient has diverticulitis and he is on Cipro and Flagyl. Given the fact that he is acutely ill and spiked a fever up to 39.3 this morning and he had surgery last week and he also has a history of ASD with repair. Given the positive cocci in his blood culture, we will make sure that he is covered with vancomycin until we get the final report. I spoke with the pharmacist to initiate the vancomycin until we get the final culture report.
[2017-03-25 15:25] VITALS: BP 116/68; PULSE 76; TEMP 37.6; O2SAT 96
--- NOTE | 2017-03-25 17:21 | Gastroenterology Progress Note ---
Progress Note Subjective Pt evaluation today including: conversation w/ patient, conversation w/ family ( and daughter), physical exam, chart review (EMR this admit, GI consult , Outpt GI Office visit 01/2017) Medications Current Inpatient Medications Medications (Trade) Dose Ordered Sig/Nathalia Route Start Time Stop Time Status Last Admin Dose Admin Prednisone 10 mg 10 mg QAM PO 03/25/17 09:00 04/24/17 08:59 03/25/17 10:00 10 MG Ciprofloxacin/ Dextrose 400 mg/ Prmx 200 ml @ 100 mls/hr Q12H IV 03/25/17 00:00 04/04/17 00:00 03/25/17 12:17 100 MLS/HR Metronidazole/Prmx (Flagyl / Nss/ Premixed Nss) 100 ml @ 100 mls/hr Q8H IV 03/24/17 23:00 04/03/17 22:59 03/25/17 14:32 100 MLS/HR Insulin Aspart (novoLOG ASPART) SLIDING SCALE G... ACHS SC 03/25/17 07:00 04/24/17 06:59 03/25/17 13:24 6 UNITS Hydromorphone HCl (Dilaudid Inj) 0.5 mg Q4H PRN IV 03/24/17 21:30 04/07/17 21:29 03/25/17 15:40 0.5 MG Lactulose (Chronulac Syrup) 30 gm TID PO 03/25/17 09:00 04/24/17 08:59 03/25/17 14:32 30 GM Glucose (Glucose 40% Gel) 15-30 GRAMS 15 GRAMS... UD PRN PO 03/24/17 22:45 04/23/17 22:44 Glucose (Glucose Chew Tab) 4-8 Tablets 4 Tabl... UD PRN PO 03/24/17 22:45 04/23/17 22:44 Dextrose (Dextrose 50% 50ML Syringe) 25-50ML OF 50% DW IV FOR... UD PRN IV 03/24/17 22:45 04/23/17 22:44 Glucagon 1 mg 1 mg UD PRN SQ 03/24/17 22:45 04/23/17 22:44 Ondansetron HCl/ Dextrose (Zofran Inj/D5 50ml) 54 ml @ 200 mls/hr Q4H PRN IV 03/25/17 05:30 04/24/17 05:29 03/25/17 05:38 200 MLS/HR Acetaminophen (Tylenol Tab) 500 mg Q4H PRN PO 03/25/17 07:45 04/24/17 07:44 03/25/17 07:56 500 MG Vancomycin HCl 1 ea 1 ea UD PRN N/A 03/25/17 13:45 04/24/17 13:44 Vancomycin HCl/ Sodium Chloride (Vancomycin Inj/ Nss 500ml) 532 ml @ 200 mls/hr Q12@1000,2200 IV 03/25/17 22:00 04/08/17 21:59 Objective Vital Signs Date Time Temp Pulse Resp B/P Pulse Ox O2 Delivery O2 Flow Rate FiO2 03/25/17 15:30 Room Air 03/25/17 15:25 37.6 76 18 116/68 96 Nasal Cannula 2.0 03/25/17 11:54 37.7 80 18 118/72 96 Nasal Cannula 2.0 03/25/17 11:12 37.7 03/25/17 09:14 96 Nasal Cannula 2.0 03/25/17 07:50 Nasal Cannula 2.0 03/25/17 07:50 39.3 84 14 122/66 96 Nasal Cannula 2.0 03/25/17 00:24 Nasal Cannula 2.0 03/24/17 22:55 37.0 86 18 126/81 90 Room Air 03/24/17 21:28 88 14 95/56 93 Room Air 03/24/17 19:25 80 16 109/63 93 Room Air 03/24/17 18:09 82 03/24/17 17:59 37.5 80 18 116/67 97 Room Air Physical Exam Abdomen: normal bowel sounds, non tender, soft, + pertinent finding (somewhat distended but soft) Extremities: + pertinent finding Laboratory Results Last 24 Hours Test 03/24/17 19:00 03/24/17 20:07 03/25/17 06:58 03/25/17 07:45 White Blood Count 8.98 K/uL 8.13 K/uL Red Blood Count 3.78 M/uL 3.57 M/uL Hemoglobin 12.0 g/dL 11.9 g/dL Hematocrit 36.5 % 34.6 % Mean Corpuscular Volume 96.6 fL 96.9 fL Mean Corpuscular Hemoglobin 31.7 pg 33.3 pg Mean Corpuscular Hemoglobin Concent 32.9 g/dl 34.4 g/dl Platelet Count 59 K/uL 51 K/uL Mean Platelet Volume 11.5 fL 11.7 fL Neutrophils (%) (Auto) 91.8 % 92.3 % Lymphocytes (%) (Auto) 2.6 % 2.7 % Monocytes (%) (Auto) 3.8 % 3.1 % Eosinophils (%) (Auto) 1.2 % 0.7 % Basophils (%) (Auto) 0.3 % 0.1 % Neutrophils # (Auto) 8.24 K/uL 7.50 K/uL Lymphocytes # (Auto) 0.23 K/uL 0.22 K/uL Monocytes # (Auto) 0.34 K/uL 0.25 K/uL Eosinophils # (Auto) 0.11 K/uL 0.06 K/uL Basophils # (Auto) 0.03 K/uL 0.01 K/uL RDW Standard Deviation 57.7 fL 59.2 fL RDW Coefficient of Variation 16.4 % 16.6 % Immature Granulocyte % (Auto) 0.3 % 1.1 % Immature Granulocyte # (Auto) 0.03 K/uL 0.09 K/uL Toxic Granulation 1+ Platelet Estimate DECREASED Giant Platelets 1+ Prothrombin Time 13.9 SECONDS 15.3 SECONDS Prothromb Time International Ratio 1.3 1.4 Sodium Level 136 mmol/L 136 mmol/L Potassium Level 5.1 mmol/L 4.6 mmol/L Chloride Level 103 mmol/L 101 mmol/L Carbon Dioxide Level 27 mmol/L 26 mmol/L Anion Gap 6.0 mmol/L 9.0 mmol/L Blood Urea Nitrogen 19 mg/dl 21 mg/dl Creatinine 1.10 mg/dl 1.20 mg/dl Est Creatinine Clear Calc Drug Dose 81.1 ml/min 74.3 ml/min Estimated GFR () 81.8 73.6 Estimated GFR (Non- 70.6 63.5 BUN/Creatinine Ratio 16.9 17.7 Random Glucose 96 mg/dl 121 mg/dl Calcium Level 8.3 mg/dl 8.5 mg/dl Total Bilirubin 4.9 mg/dl 5.2 mg/dl Direct Bilirubin 2.8 mg/dl 3.5 mg/dl Aspartate Amino Transf (AST/SGOT) 61 U/L 71 U/L Alanine Aminotransferase (ALT/SGPT) 30 U/L 31 U/L Alkaline Phosphatase 178 U/L 171 U/L Total Protein 6.0 gm/dl 6.0 gm/dl Albumin 2.3 gm/dl 2.3 gm/dl Lipase 82 U/L Ammonia 40.0 umol/L 35.0 umol/L Ethyl Alcohol mg/dL < 3.0 mg/dl Urine Color ORANGE Urine Appearance CLEAR Urine pH Urine Specific [place] 1.024 Urine Protein POS Urine Glucose (UA) Urine Ketones Urine Occult Blood Urine Nitrite Urine Bilirubin Urine Urobilinogen Urine Leukocyte Esterase Urine RBC 10-30 /hpf Urine WBC 1-5 /hpf Urine Epithelial Cells 5-10 /lpf Urine Bacteria 1+ Urine Mucus PRESENT Test 03/25/17 08:04 03/25/17 11:54 Bedside Glucose 103 mg/dl 152 mg/dl Assessment and Plan GI consult--dicatated job [id number] Mental status changes--improved--could be from hepatic encephalopathy but ammonia level was not really in range I would expect that to be causing problem , pain medication and sepsis can also do this Elevated ammonia--continue lactulose for now titrate dose to 3-5 BMs per day. Whether he needs to be on meds chronically remains to be seen Ascites--worsening clinically as well as on CT scan---Cipro and Flagyl can cover possible SBP, Recommend patient have diagnostic and possible therapeutic paracentesis monday. cirrhosis--patient has not had full workup for etiology but sarcoidosis and ETOH and SANTOS can all be causative--told patient and and daughter recommend complete abstinence from ETOH. possible diverticulitis DC on CT--clinically no pain to suggest that but cipro and Flagyl will cover that calcified GB versus gallstones on CT--no gallstones on U/S--if has truly has calcified GB wall then worry about porcelain GB which has malignant potential-- Will speak with radiology regarding do they really feel GB wall calcified. elevated LFTs--TB worsened from baseline and others at baseline--can be from sepsis Normoacytic anemia--stable--no history of black or bloody stools thromobocytopenia--likely from splenomegaly from portal HTN Others per Dr Patterson Blood culture positive--gm positive cocci DM Spoke with DR Cooper regarding patient.
[2017-03-25] MEDS: VANCOMYCIN INJ 1,600 MG in SODIUM CHLORIDE 0.9% 500ML 500 ML IV SCH (21:58)
[2017-03-25 22:55] VITALS: BP 111/66; PULSE 80; TEMP 37.1; O2SAT 94
[2017-03-26] MEDS: HYDROmorphone INJ 1 MG/ML SYR IV PRN ×3 (02:28→22:08)
[2017-03-26] MEDS: ACETAMINOPHEN 500 MG TAB PO PRN ×2 (04:38→23:50)
[2017-03-26 06:24] LABS: HEMATOCRIT 29.8 % (42-52); MEAN CELL VOLUME 94.9 fL (80-100); MEAN CORPUSCULAR HEMOGLOBIN 32.2 pg (25-34); MEAN CORPUSCULAR HGB CONC 33.9 g/dl (32-36); RED BLOOD COUNT 3.14 M/uL (4.7-6.1); WHITE BLOOD COUNT 6.11 K/uL (4.8-10.8)
[2017-03-26 06:28] LABS: MEAN PLATELET VOLUME 11.2 fL (7.4-10.4); PLATELET COUNT 50 K/uL (130-400)
[2017-03-26 06:36] LABS: INR 1.4 (0.9-1.1); PROTHROMBIN TIME (PATIENT) 15.4 SECONDS (9.0-12.0)
[2017-03-26] MEDS: METRONIDAZOLE / NSS 500 MG in PREMIXED NSS 100 ML IV SCH ×3 (06:41→23:14)
[2017-03-26 06:54] VITALS: BP 97/55; PULSE 68; TEMP 36.5; O2SAT 94
[2017-03-26 06:56] LABS: ALB/GLOB RATIO 0.6 (0.9-2); BUN/CREATININE RATIO 25.3 (10-20); CALCIUM 7.9 mg/dl (8.5-10.1); CREATININE 1.2 mg/dl (0.60-1.40); POTASSIUM 3.9 mmol/L (3.5-5.1)
[2017-03-26 07:19] LABS: BASO % 0.3 %; BASO ABS # 0.02 K/uL (0-0.2); COMPLETE YES; EOS % 3.3 %; IG% 0.2 %; LYMPH % 4.7 %; LYMPH ABS # 0.29 K/uL (1.2-3.4); MONO % 6.7 %; NEUT % 84.8 %; TOXIC GRANULATION 1+
[2017-03-26] MEDS: VANCOMYCIN INJ 1,600 MG in SODIUM CHLORIDE 0.9% 500ML 500 ML IV SCH ×2 (09:30→22:07)
[2017-03-26] MEDS: INSULIN ASPART 100 UNITS/ML 3 ML PEN SC SCH ×4 (09:32→21:00)
--- NOTE | 2017-03-26 10:39 | PROGRESS NOTE ---
DATE: 03/26/2017 DATE: 03/26/2017. SUBJECTIVE: A 62-year-old male admitted with multiple medical problems includin. Encephalopathy, most likely metabolic, possibly a combination of hepatic and septic. 2. Cirrhosis of the liver. 3. Status post laminectomy L4-L5 herniated disc on 03/16/2017. 4. Sarcoidosis with both pulmonary and extra pulmonary manifestation. 5. Chronic steroid therapy. 6. History of atrial septal defect status post repair in 2014. 7. Thrombocytopenia. 8. Sleep apnea. 9. Suspected diverticulitis. The patient was admitted. Cultures were done. Initially, he was started on metronidazole and ciprofloxacin. Blood cultures were done initially and reported to be growing gram positive cocci yesterday. This morning the gram positive cocci is identified as a Staphylococcus species. Final identification and sensitivity pending. Yesterday after the report of positive blood culture with gram positive cocci he was also started on IV vancomycin. The patient had a laminectomy on 03/16/2017. He was still complaining of low back pain. His incision looked fine to my examination. There was no evidence of any significant inflammation or any drainage. Because of his liver cirrhosis the patient was seen yesterday in GI consultation by Dr. Osborne. I appreciated his consultation and input. Dr. Osborne did call me after he saw the patient and we discussed his condition and the plan of treatment. The patient remains afebrile. Today, he is really showing significant improvement. He remains afebrile. He denied any headache or dizziness or lightheadedness. No chest pain, no shortness of breath. No abdominal pain. No nausea, no vomiting. He was given lactulose initially and he has had multiple bowel movements. No urinary problem. He is still having low back pain. When he was admitted, he had a CT scan of the lumbar area and there was really no evidence of any fluid collection. He still has bilateral leg edema. PHYSICAL EXAMINATION: GENERAL: Well developed in no distress. VITAL SIGNS: Blood pressure 95/55, pulse 68, respirations 16, temperature 36.5, oxygen saturation 94% on room air. SKIN: Warm and dry. No rash. HEAD, EYES, EARS, NOSE, AND THROAT: He does have minimal scleral jaundice. Improved. NECK: Supple without lymph node enlargement. No JVD. Bilateral carotid bruit. HEART: Regular heart sounds with 2/6 systolic murmur. LUNGS: Decreased breath sounds. No wheezing, no rhonchi. ABDOMEN: Protruded, soft. No evidence of any tenderness. Documented splenomegaly. BACK: Surgical scar, looks fine. No evidence of any inflammation. EXTREMITIES: Bilateral leg edema. No clubbing, no cyanosis. NEUROLOGIC EXAMINATION: He is much more awake and alert. There is no evidence of any deficits. No tremor. No deficits. TODAY'S LABORATORY TESTS: WBC count 6110, hemoglobin 10.1, hematocrit 29.8, platelet count 50,000. Sodium 134, potassium 3.9, chloride 101, CO2 27, BUN 30, creatinine 1.2, glucose 130, calcium 7.9, total bilirubin 4.5, direct bilirubin 3.4, AST 44, ALT 26, alkaline phosphatase 145, total protein 5.3, albumin 1.9. Ammonia less than 10. As noted, blood cultures are growing Staphylococcus species. Both of them. ASSESSMENT: 1. Encephalopathy. Metabolic. Thought to be hepatic and also because of his sepsis. 2. Liver cirrhosis. 3. Type 2 diabetes mellitus. 4. Recent L4-L5 laminectomy for herniated disc done on 03/16/2016. 5. Chronic thrombocytopenia. 6. Sarcoidosis. 7. History of repair of atrioseptal defect. 8. Sleep apnea. 9. Diverticulosis. 10. Chronic steroid therapy. PLAN: 1. Continue the same medications at this point. 2. Continue with antibiotics including his Flagyl and ciprofloxacin. This was initiated because of the suspected diverticulitis and also he has ascites and the ciprofloxacin will cover any possible spontaneous peritonitis. 3. Continue vancomycin until the final identification of the Staphylococcus and the sensitivity. 4. There is no obvious source for his infection at this time. My main concern is about the fact that he does have a history of ASD and he has had this repaired with a patch. 5. I will speak with the [employer] sales and service supervisor and see which tests will be more helpful to us as far as trying to determine any evidence of vegetations, whether it is going to be a transthoracic echocardiogram or transesophageal echocardiogram. 6. I also requested a consultation from Dr. Gray to check the incision site, make sure he does not think that there is anything going on from an infectious standpoint. 7. I discontinued his lactulose today. 8. As noted, he was seen in GI consultation by Dr. Osborne. His findings were discussed. Dr. Osborne is having is scheduling him for a paracentesis tomorrow. 9. Encouraged to be out of bed. 10. We will continue his evaluation. Continue his IV antibiotics for now. Adjust his therapy as indicated by the results of the further testing.
[2017-03-26] MEDS: CIPROFLOXACIN / D5W 400 MG in PREMIXED IN D5W 200 ML IV SCH ×2 (12:06→23:50)
--- NOTE | 2017-03-26 14:28 | ORTHOPEDIC CONSULTATION ---
DATE OF CONSULTATION: 03/26/2017 CHIEF COMPLAINT: Back pain. HISTORY OF PRESENT ILLNESS: The patient did come to the hospital Monday evening with confusion. Laboratory studies do demonstrate evidence of bacteremia with blood cultures showing staph. He had done well postoperatively, but at the end of last week, Monday morning he began having evidence of confusion and worsening back pain. He continues to deny any clear radicular complaints. This again is markedly improved after surgery. PHYSICAL EXAMINATION: GENERAL: Today, he is in a chair. His family is in the room. He is alert and oriented x3. NEUROLOGICAL: He is in no gross tension signs. Reasonable strength to testing lower extremities, but does note marked difficulty with standing and ambulation secondary to back pain and some modest radiation into the right buttock. SKIN: Incision is clean, dry and intact, modest erythema only. No drainage. ASSESSMENT: Status post lumbar decompression and fusion. PLAN: At this time, I have a very low threshold to perform an I\T\D lumbar spine to wash out any retained hematoma or seroma. In light of his bacteremic state, he would easily seed this area and could go onto full lumbar infection. Subsequently, we will obtain an MRI today to assess for any fluid levels in the lumbar spine. We will have a very low threshold to perform an I\T\D preps Monday and reinsert drain. His family and the patient understand my concerns. We certainly do not want him to go on to develop a lumbar infection amongst his other health issues. He has done well nicely from as far as resolution of his radicular complaints. He understands and agrees. Will prophylactically make him n.p.o. after midnight and await MRI for further recommendations.
[2017-03-26 15:23] VITALS: BP 118/69; PULSE 76; TEMP 36.9; O2SAT 99
--- NOTE | 2017-03-26 17:04 | Gastroenterology Progress Note ---
Progress Note Date of Service: March 26, 2017 Subjective Pt evaluation today including: conversation w/ patient, physical exam, chart review, lab review, review of studies, review of inpatient medication list CC f/u mental status change, ascites HPI: Pt states has had crampy abd pain he attributes to lactulose. Thinks abd distension is affecting his breathing somewhat. Review of Systems Respiratory: + shortness of breath (off and on with exertion) Cardiac: No chest pain Medications Current Inpatient Medications Medications (Trade) Dose Ordered Sig/Nathalia Route Start Time Stop Time Status Last Admin Dose Admin Prednisone 10 mg 10 mg QAM PO 03/25/17 09:00 04/24/17 08:59 03/26/17 08:21 10 MG Ciprofloxacin/ Dextrose 400 mg/ Prmx 200 ml @ 100 mls/hr Q12H IV 03/25/17 00:00 04/04/17 00:00 03/26/17 12:06 100 MLS/HR Metronidazole/Prmx (Flagyl / Nss/ Premixed Nss) 100 ml @ 100 mls/hr Q8H IV 03/24/17 23:00 04/03/17 22:59 03/26/17 14:26 100 MLS/HR Insulin Aspart (novoLOG ASPART) SLIDING SCALE G... ACHS SC 03/25/17 07:00 04/24/17 06:59 03/26/17 14:08 4 UNITS Glucose (Glucose 40% Gel) 15-30 GRAMS 15 GRAMS... UD PRN PO 03/24/17 22:45 04/23/17 22:44 Glucose (Glucose Chew Tab) 4-8 Tablets 4 Tabl... UD PRN PO 03/24/17 22:45 04/23/17 22:44 Dextrose (Dextrose 50% 50ML Syringe) 25-50ML OF 50% DW IV FOR... UD PRN IV 03/24/17 22:45 04/23/17 22:44 Glucagon 1 mg 1 mg UD PRN SQ 03/24/17 22:45 04/23/17 22:44 Ondansetron HCl/ Dextrose (Zofran Inj/D5 50ml) 54 ml @ 200 mls/hr Q4H PRN IV 03/25/17 05:30 04/24/17 05:29 03/25/17 05:38 200 MLS/HR Acetaminophen (Tylenol Tab) 500 mg Q4H PRN PO 03/25/17 07:45 04/24/17 07:44 03/26/17 04:38 500 MG Vancomycin HCl 1 ea 1 ea UD PRN N/A 03/25/17 13:45 04/24/17 13:44 Vancomycin HCl/ Sodium Chloride (Vancomycin Inj/ Nss 500ml) 532 ml @ 200 mls/hr Q12@1000,2200 IV 03/25/17 22:00 04/08/17 21:59 03/26/17 09:30 200 MLS/HR Hydromorphone HCl (Dilaudid Inj) 0.5 mg Q4H PRN IV 03/26/17 02:30 04/09/17 02:29 03/26/17 13:47 0.5 MG Objective Vital Signs Date Time Temp Pulse Resp B/P Pulse Ox O2 Delivery O2 Flow Rate FiO2 03/26/17 15:23 36.9 76 18 118/69 99 Nasal Cannula 2.0 03/26/17 08:00 Room Air 03/26/17 06:54 36.5 68 16 97/55 94 Room Air 03/25/17 23:45 CPAP 03/25/17 22:55 37.1 80 18 111/66 94 CPAP Physical Exam General Appearance: WD/WN, no apparent distress Respiratory/Chest: lungs clear, no respiratory distress Cardiovascular: regular rate, rhythm, + pertinent finding (bilateral edema) Abdomen: normal bowel sounds, non tender, soft, + pertinent finding (distended but soft) Neurologic/Psych: 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, alert, normal mood/affect, oriented x 3 Laboratory Results Last 24 Hours Test 03/25/17 17:15 03/25/17 20:35 03/25/17 20:46 03/26/17 06:11 Bedside Glucose 153 mg/dl 164 mg/dl 161 mg/dl White Blood Count 6.11 K/uL Red Blood Count 3.14 M/uL Hemoglobin 10.1 g/dL Hematocrit 29.8 % Mean Corpuscular Volume 94.9 fL Mean Corpuscular Hemoglobin 32.2 pg Mean Corpuscular Hemoglobin Concent 33.9 g/dl Platelet Count 50 K/uL Mean Platelet Volume 11.2 fL Neutrophils (%) (Auto) 84.8 % Lymphocytes (%) (Auto) 4.7 % Monocytes (%) (Auto) 6.7 % Eosinophils (%) (Auto) 3.3 % Basophils (%) (Auto) 0.3 % Neutrophils # (Auto) 5.18 K/uL Lymphocytes # (Auto) 0.29 K/uL Monocytes # (Auto) 0.41 K/uL Eosinophils # (Auto) 0.20 K/uL Basophils # (Auto) 0.02 K/uL RDW Standard Deviation 58.1 fL RDW Coefficient of Variation 16.7 % Immature Granulocyte % (Auto) 0.2 % Immature Granulocyte # (Auto) 0.01 K/uL Toxic Granulation 1+ Prothrombin Time 15.4 SECONDS Prothromb Time International Ratio 1.4 Sodium Level 134 mmol/L Potassium Level 3.9 mmol/L Chloride Level 101 mmol/L Carbon Dioxide Level 27 mmol/L Anion Gap 6.0 mmol/L Blood Urea Nitrogen 30 mg/dl Creatinine 1.20 mg/dl Est Creatinine Clear Calc Drug Dose 74.3 ml/min Estimated GFR () 73.6 Estimated GFR (Non- 63.5 BUN/Creatinine Ratio 25.3 Random Glucose 130 mg/dl Calcium Level 7.9 mg/dl Total Bilirubin 4.5 mg/dl Direct Bilirubin 3.4 mg/dl Aspartate Amino Transf (AST/SGOT) 44 U/L Alanine Aminotransferase (ALT/SGPT) 26 U/L Alkaline Phosphatase 145 U/L Ammonia < 10.0 umol/L Total Protein 5.3 gm/dl Albumin 1.9 gm/dl Globulin 3.4 gm/dl Albumin/Globulin Ratio 0.6 Test 03/26/17 08:24 03/26/17 12:03 Bedside Glucose 101 mg/dl 145 mg/dl Assessment and Plan Mental status changes-resolved--could be from hepatic encephalopathy but ammonia level was not really in range I would expect that to be causing problem , pain medication and sepsis can also do this--=ammonia normal today Elevated ammonia--resolved--lactulose stopped Ascites--worsening clinically as well as on CT scan---Cipro and Flagyl can cover possible SBP, Recommend patient have diagnostic and possible therapeutic paracentesis monday. cirrhosis--patient has not had full workup for etiology but sarcoidosis and ETOH and SANTOS can all be causative--told patient and and daughter recommend complete abstinence from ETOH. possible diverticulitis DC on CT--clinically no pain to suggest that but cipro and Flagyl will cover that calcified GB versus gallstones on CT--no gallstones on U/S--if has truly has calcified GB wall then worry about porcelain GB which has malignant potential-- Will speak with radiology regarding do they really feel GB wall calcified. elevated LFTs--improved today Normoacytic anemia--decreased--no history of black or bloody stools---brown thromobocytopenia--likely from splenomegaly from portal HTN Others per Dr Patterson Blood culture positive--staph--ortho may be doing I and D on back at some point , doubt GI source DM Spoke with DR Cooper regarding patient.
[2017-03-26] MEDS ORDERED: VANCOMYCIN TROUGH ONE (21:30)
[2017-03-26] MEDS ORDERED: NURSING VERBAL MED ORDER ONE (22:15)
[2017-03-26] MEDS ORDERED: HYDROmorphone INJ 1 MG/ML SYR IV PRN (22:30)
[2017-03-26 22:51] VITALS: BP 138/76; PULSE 84; TEMP 37.1; O2SAT 98
[2017-03-27] VITALS (13 sets, daily range): BP systolic 111–177; BP diastolic 66–92; PULSE 81–141; TEMP 36.9–38.7; O2SAT 84–98
[2017-03-27] MEDS ORDERED: HydrALAZINE HCL 20 MG/ML VIAL IV. STA (02:36)
[2017-03-27] MEDS ORDERED: FUROSEMIDE INJ 40 MG in SYRINGE 0 ML IV STA (02:55)
[2017-03-27] MEDS ORDERED: LEVALBUTEROL 1.25MG/3ML NEB INH STA (03:12)
[2017-03-27] MEDS: HYDROmorphone INJ 1 MG/ML SYR IV PRN ×3 (03:18→17:03)
[2017-03-27] MEDS ORDERED: FUROSEMIDE INJ 40 MG in SYRINGE 0 ML IV ONE ×2 (06:00→15:15)
[2017-03-27 06:25] LABS: INR 1.4 (0.9-1.1); PROTHROMBIN TIME (PATIENT) 15.1 SECONDS (9.0-12.0)
[2017-03-27] MEDS: METRONIDAZOLE / NSS 500 MG in PREMIXED NSS 100 ML IV SCH ×2 (06:28→14:14)
[2017-03-27] MEDS: INSULIN ASPART 100 UNITS/ML 3 ML PEN SC SCH ×4 (06:30→20:39)
[2017-03-27] MEDS ORDERED: NURSING VERBAL MED ORDER ONE ×2 (06:30→18:15)
[2017-03-27 06:34] LABS: BASO % 0.4 %; BASO ABS # 0.03 K/uL (0-0.2); COMPLETE YES; EOS % 3.2 %; HEMATOCRIT 33.4 % (42-52); IG% 0.6 %; LYMPH % 8.2 %; LYMPH ABS # 0.58 K/uL (1.2-3.4); MEAN CELL VOLUME 95.7 fL (80-100); MEAN CORPUSCULAR HEMOGLOBIN 32.4 pg (25-34); MEAN CORPUSCULAR HGB CONC 33.8 g/dl (32-36); MEAN PLATELET VOLUME 12.1 fL (7.4-10.4); MONO % 9.6 %; PLATELET COUNT 58 K/uL (130-400); PLT ESTIMATE DECREASED; RED BLOOD COUNT 3.49 M/uL (4.7-6.1); WHITE BLOOD COUNT 7.11 K/uL (4.8-10.8)
[2017-03-27 06:44] LABS: BUN/CREATININE RATIO 18.7 (10-20); CALCIUM 7.9 mg/dl (8.5-10.1); CREATININE 1.3 mg/dl (0.60-1.40); POTASSIUM 3.8 mmol/L (3.5-5.1)
--- NOTE | 2017-03-27 07:14 | GASTROINTESTINAL CONSULTATION ---
DATE OF CONSULTATION: 03/25/2017 REQUESTING PHYSICIAN: Hu Nielsen MD REASON FOR CONSULTATION: Hepatic encephalopathy and cirrhosis. CHIEF COMPLAINT: The patient had some mental status changes and some back pain. HISTORY OF PRESENT ILLNESS: I went back and looked at records from Dr. Monroe in January seeing the patient for elevated LFTs and new diagnosis of cirrhosis. He had also GI consult on 03/17/2017 when he was in the hospital for herniated disk and a back surgery. He was out of the hospital about 3 days, developed some back pain and then 2 days grogginess. He came to the Emergency Room groggy and having significant back pain as well. The and the patient both recognize his mental status changes. He was given lactulose and he has also been given some antibiotics and he feels much better today and his back to his baseline. He has had no bloody stools or black stools, some increased abdominal girth, but no actual pain. He states his bowel habits were normal at home and diarrheal with lactulose in the hospital. No dysphagia. No significant change in weight. He did have some low-grade temps, some dry heaves, has history of GERD; controlled on Nexium. No hiatal hernia. He does have a history of sarcoidosis. Does drink alcohol, wine maybe 3 glasses a day. He also has a history of diabetes. His most recent EGD 02/28/2017, gastric erosions, path inflammation, possibly some mild portal hypertensive, gastropathy, and duodenal diverticulum. A random duodenal path was negative. An MRCP on 02/14/2017 showing some cirrhosis, trace ascites, moderate splenomegaly and some gallbladder thickening. He had a chest x-ray on this admission, cardiomegaly. CT abdomen and pelvis on this admission; gallstone versus calcified gallbladder wall, splenomegaly, diverticulosis and possible diverticulitis in the descending colon, moderate ascites, increased from before, left renal stone pleural effusion, and cirrhosis. Ultrasound of the gallbladder; gallbladder thickening, no stones, cirrhosis and a little ascites. Ammonia was 40 on admission and today, 35. Hemoglobin on admission 12 and 11.9 today. PT/INR 1.3. His LFTs on admission, the total bili is 5.2, AST 71, alkaline phosphatase 171, and albumin 2.3. Baseline total bili 03/18/2017 was 2.7, AST 51, alkaline phosphatase 175. ALLERGIES: CELECOXIB AND PENICILLIN. MEDICATIONS ON ADMISSION: Included Ventolin, Lipitor, Klonopin, Restasis, Nexium, Prozac, Lasix, insulin, mometasone spray, Trental, pramipexole, prednisone, potassium, oxycodone/acetaminophen. MEDICAL PROBLEMS: Include sarcoidosis, anemia, asthma, diabetic autonomic neuropathy, GERD, herniated disk, hyperlipidemia, hypertension, kidney stone, lumbar stenosis, obesity, atrial septal defect which has been operated on, sleep apnea, and thrombocytopenia. FAMILY HISTORY: His sister with some type of colitis. SOCIAL HISTORY: Tobacco negative, ethanol to about 3 glasses of wine daily. REVIEW OF SYSTEMS: Musculoskeletal, low back pain. Others are all negative including constitutional; eyes, ears, nose, mouth, and throat; cardiovascular; respiratory; ; integumentary; neurologic; psych; endocrine; hematologic; and allergic except as above. PHYSICAL EXAMINATION: GENERAL: Male, appears stated age in no acute distress. VITAL SIGNS: Most recent vital signs in the chart. Temp 37.6, pulse 76, respirations 18, BP 116/68, and O2 saturation 96% on 2 liters. EYES: Conjunctivae and lids normal. ENT: Oropharynx clear. NECK: Without obvious mass or thyroid enlargement. RESPIRATORY: Normal effort, clear to anterior auscultation. CARDIOVASCULAR: Regular rate and rhythm. EXTREMITIES: some bilateral edema ABDOMEN: Positive bowel sounds, mildly distended, but soft. No guarding or rebound, possibly some splenomegaly appreciated. No obvious masses noted. LYMPH: No obvious neck or groin nodes. MUSCULOSKELETAL: Digits and nails normal. SKIN: Without obvious rash or induration. Anteriorly incision in the back, some hyperemia, but no definite cellulitis. PSYCHIATRIC: Recent and remote memory good. Insight and judgment good. LABORATORY DATA: As above and also blood cultures are positive for gram-positive cocci. IMPRESSION AND PLAN: 1 . Mental status changes. This is markedly improved, could be multifactorial, some hepatic encephalopathy, although the ammonia level is not really in the range I would expect that, pain medication and sepsis can all do that as well. 2. Elevated ammonia. Continue lactulose for now, titrate to 3-5 bowel movements per day whether he needs to be on medication chronically, it remains to be seen. 3. Ascites, it is worsening clinically as well as on CAT scan. Cipro and Flagyl can cover possible spontaneous bacterial peritonitis. Recommend the patient a diagnostic and possible therapeutic paracentesis on Monday. 4. Cirrhosis. The patient has not had a full workup for etiology, but sarcoidosis and alcohol and nonalcoholic steatohepatitis can all be cause. I told the patient and the and daughter, recommended complete abstinence from alcohol. 5. Possible diverticulitis on CAT scan. Clinically, no pain to suggest, but Cipro and Flagyl will cover that in case. 6. Calcified gallbladder versus gallstones. CT scan, no gallstones noted on ultrasound. If he truly has a calcified gallbladder wall and worry about porcelain gallbladder, which has malignant potential, I will have to speak with radiology at some point to see whether porcelain gallbladder is in the differential. 7. Elevated LFTs. Total bilirubin is worsened from baseline and others are more baselines and this can be from sepsis. 8. Normocytic anemia, no history of black or bloody stools to suggest gastrointestinal bleeding. 9. Thrombocytopenia, likely from splenomegaly, portal hypertension. Other problems per Dr. Morales OROURKE, which include but are not limited to positive blood culture and diabetes. I did speak with Dr. Nielsen regarding this patient in my thoughts on further gastrointestinal workup. [facility]
[2017-03-27] MEDS: LEVALBUTEROL 1.25MG/3ML NEB INH SCH ×3 (07:23→20:04)
--- NOTE | 2017-03-27 07:40 | DIAGNOSTIC IMAGING REPORT ---
CHEST ONE VIEW PORTABLE HISTORY: dyspnea COMPARISON: Chest 03/24/2017. FINDINGS: No pneumothorax. The heart is mildly enlarged. There are low lung volumes. There is perihilar interstitial and vascular thickening consistent with mild pulmonary edema. Suspect trace bilateral pleural effusions. IMPRESSION: Mild interstitial pulmonary edema with trace bilateral pleural effusions. Electronically signed by: Joseph Beltrán M.D. 03/27/2017 7:38 AM Dictated Date/Time: 03/27/2017 7:38 AM
[2017-03-27] MEDS ORDERED: VANCOMYCIN TROUGH ONE (09:30)
--- NOTE | 2017-03-27 10:04 | DIAGNOSTIC IMAGING REPORT ---
ULTRASOUND-GUIDED therapeutic and diagnostic PARACENTESIS: HISTORY: Ascites. Procedure: The procedure and its risks, benefits and alternatives were discussed with the patient and written informed consent was obtained. Preliminary ultrasound of the abdomen was performed to determine a safe needle entry site. The right upper quadrant was prepped and draped in the usual sterile fashion. 1% Lidocaine was used for local anesthesia. A paracentesis needle-sheath was inserted into the peritoneal space using ultrasound guidance. The needle was removed and the sheath was connected to tubing and a vacuum suction device. A total of 1.6 liters of yellow ascites was aspirated. The sheath was removed and a sterile dressing applied. The patient tolerated the procedure well and there were no immediate complications. IMPRESSION: Ultrasound-guided therapeutic and diagnostic paracentesis with aspiration of 1.6 liters of ascites. A total of 1 L was sent to the laboratory. Electronically signed by: Joseph Beltrán M.D. 03/27/2017 10:03 AM Dictated Date/Time: 03/27/2017 10:02 AM
[2017-03-27] MEDS: VANCOMYCIN INJ 1,600 MG in SODIUM CHLORIDE 0.9% 500ML 500 ML IV SCH ×2 (10:24→22:14)
--- NOTE | 2017-03-27 11:38 | Pharmacy Progress Note ---
Pharmacy Antibiotic Prog Note Date of Service March 27, 2017. Subjective The patient is currently receiving vancomycin 1600 mg IV every 12 hours. The patient is currently on day # 3 of vancomycin IV therapy. Objective Height (Feet): 5 Height (Inches): 7.00 Weight (Kilograms): 114.300 Levels: Item Value Date Time Vancomycin Level Trough 18.3 mcg/ml 03/27/17 1020 Previous dose hung 03/26 @ 6303. Lab Results (24hrs): Test 03/27/17 00:00 03/27/17 05:56 03/27/17 06:05 03/27/17 08:17 Peritoneal Fluid Total Protein 0.9 g/dl Peritoneal Fluid Albumin < 0.6 g/dl Peritoneal Fluid Amylase 10 U/L Peritoneal Fluid Lipase 83 U/L Peritoneal Fluid Triglycerides 33 mg/dl White Blood Count 7.11 K/uL (4.8-10.8) Red Blood Count 3.49 M/uL (4.7-6.1) Hemoglobin 11.3 g/dL (14.0-18.0) Hematocrit 33.4 % (42-52) Mean Corpuscular Volume 95.7 fL (80-100) Mean Corpuscular Hemoglobin 32.4 pg (25-34) Mean Corpuscular Hemoglobin Concent 33.8 g/dl (32-36) Platelet Count 58 K/uL (130-400) Mean Platelet Volume 12.1 fL (7.4-10.4) Neutrophils (%) (Auto) 78.0 % Lymphocytes (%) (Auto) 8.2 % Monocytes (%) (Auto) 9.6 % Eosinophils (%) (Auto) 3.2 % Basophils (%) (Auto) 0.4 % Neutrophils # (Auto) 5.55 K/uL (1.4-6.5) Lymphocytes # (Auto) 0.58 K/uL (1.2-3.4) Monocytes # (Auto) 0.68 K/uL (0.11-0.59) Eosinophils # (Auto) 0.23 K/uL (0-0.5) Basophils # (Auto) 0.03 K/uL (0-0.2) RDW Standard Deviation 56.7 fL (36.4-46.3) RDW Coefficient of Variation 16.3 % (11.5-14.5) Immature Granulocyte % (Auto) 0.6 % Immature Granulocyte # (Auto) 0.04 K/uL (0.00-0.02) Platelet Estimate DECREASED Prothrombin Time 15.1 SECONDS (9.0-12.0) Prothromb Time International Ratio 1.4 (0.9-1.1) Sodium Level 135 mmol/L (136-145) Potassium Level 3.8 mmol/L (3.5-5.1) Chloride Level 102 mmol/L (98-107) Carbon Dioxide Level 25 mmol/L (21-32) Anion Gap 8.0 mmol/L (3-11) Blood Urea Nitrogen 24 mg/dl (7-18) Creatinine 1.30 mg/dl (0.60-1.40) Est Creatinine Clear Calc Drug Dose 69.3 ml/min Estimated GFR () 66.8 Estimated GFR (Non- 57.7 BUN/Creatinine Ratio 18.7 (10-20) Random Glucose 127 mg/dl (70-99) Calcium Level 7.9 mg/dl (8.5-10.1) Total Bilirubin 5.2 mg/dl (0.2-1) Direct Bilirubin 3.7 mg/dl (0-0.2) Aspartate Amino Transf (AST/SGOT) 44 U/L (15-37) Alanine Aminotransferase (ALT/SGPT) 27 U/L (12-78) Alkaline Phosphatase 204 U/L (45-117) Ammonia < 10.0 umol/L (11-32) Total Protein 5.5 gm/dl (6.4-8.2) Albumin 1.9 gm/dl (3.4-5.0) Bedside Glucose 114 mg/dl (70-99) 104 mg/dl (70-99) Test 03/27/17 10:20 Vancomycin Level Trough 18.3 mcg/ml (SEE COMMENT) Micro Results: 03/24 blood x2 Staph spp- ID & sens pending 03/25 urine NG 03/27 peritoneal fluid stains and cultures pending Recent Pertinent Medications Item Value Date Time Vancomycin HCl 532 ml @ 200 mls/hr 03/25/17 2200 1600 mg/Sodium Q12@1000,2200/IV 03/27/17 1024 Chloride Ciprofloxacin/ 200 ml @ 100 mls/hr 03/25/17 0000 Dextrose 400 mg/ Q12H/IV 03/26/17 2350 Prmx Metronidazole 500 100 ml @ 100 mls/hr 03/24/17 2300 mg/Prmx Q8H/IV 03/27/17 0628 Assessment & Plan Patient on day 3 of vancomycin for Staph bacteremia, and Cipro/Flagyl for possible SBP or diverticulitis (not a consult). This level is: Therapeutic. Will continue same dose and recheck vanco level in a few days if stable to assess for accumulation. Continue vancomycin 1600 mg IV every 12 hours. Goal trough level estimate: between 15-20 mcg/mL. Trough has been ordered for: 03/29/17 before 1000 dose. Pharmacy will continue to follow and will adjust dose/frequency as necessary. Thank you
[2017-03-27 11:51] LABS: PERIT FL WBC 220 /uL (0-300); PERITONEAL FLUID RBC < 3000 /uL
--- NOTE | 2017-03-27 12:29 | Gastroenterology Progress Note ---
Progress Note Date of Service: March 27, 2017 Subjective Pt evaluation today including: conversation w/ patient, physical exam, chart review, lab review, review of studies, review of inpatient medication list cc f/u cirrhosis, ascites HPI Pt s/p paracentesis today with 1.6 L fluid removed and patient feels less bloated. No randy abd pain. Review of Systems Respiratory: + shortness of breath Cardiac: No chest pain Medications Current Inpatient Medications Medications (Trade) Dose Ordered Sig/Nathalia Route Start Time Stop Time Status Last Admin Dose Admin Prednisone 10 mg 10 mg QAM PO 03/25/17 09:00 04/24/17 08:59 03/26/17 08:21 10 MG Ciprofloxacin/ Dextrose 400 mg/ Prmx 200 ml @ 100 mls/hr Q12H IV 03/25/17 00:00 04/04/17 00:00 03/26/17 23:50 100 MLS/HR Metronidazole/Prmx (Flagyl / Nss/ Premixed Nss) 100 ml @ 100 mls/hr Q8H IV 03/24/17 23:00 04/03/17 22:59 03/27/17 06:28 100 MLS/HR Glucose (Glucose 40% Gel) 15-30 GRAMS 15 GRAMS... UD PRN PO 03/24/17 22:45 04/23/17 22:44 Glucose (Glucose Chew Tab) 4-8 Tablets 4 Tabl... UD PRN PO 03/24/17 22:45 04/23/17 22:44 Dextrose (Dextrose 50% 50ML Syringe) 25-50ML OF 50% DW IV FOR... UD PRN IV 03/24/17 22:45 04/23/17 22:44 Glucagon 1 mg 1 mg UD PRN SQ 03/24/17 22:45 04/23/17 22:44 Ondansetron HCl/ Dextrose (Zofran Inj/D5 50ml) 54 ml @ 200 mls/hr Q4H PRN IV 03/25/17 05:30 04/24/17 05:29 03/25/17 05:38 200 MLS/HR Acetaminophen (Tylenol Tab) 500 mg Q4H PRN PO 03/25/17 07:45 04/24/17 07:44 03/26/17 23:50 500 MG Vancomycin HCl 1 ea 1 ea UD PRN N/A 03/25/17 13:45 04/24/17 13:44 Vancomycin HCl/ Sodium Chloride (Vancomycin Inj/ Nss 500ml) 532 ml @ 200 mls/hr Q12@1000,2200 IV 03/25/17 22:00 04/08/17 21:59 03/27/17 10:24 200 MLS/HR Hydromorphone HCl (Dilaudid Inj) 0.5 mg Q4H PRN IV 03/26/17 02:30 04/09/17 02:29 03/27/17 11:37 0.5 MG Levalbuterol (Xopenex 1.25MG/ 3ML Neb) 1.25 mg Q6R INH 03/27/17 09:00 04/26/17 08:59 03/27/17 07:23 1.25 MG Insulin Aspart (novoLOG ASPART) SLIDING SCALE G... Q6 SC 03/27/17 12:00 04/26/17 11:59 Objective Vital Signs Date Time Temp Pulse Resp B/P Pulse Ox O2 Delivery O2 Flow Rate FiO2 03/27/17 07:30 Nasal Cannula 03/27/17 07:23 97 18 95 Nasal Cannula 2.0 03/27/17 07:11 37.0 95 17 111/69 94 Nasal Cannula 2.0 03/27/17 06:52 37.0 95 17 11169 94 Nasal Cannula 2.0 03/27/17 03:33 112 20 95 Nasal Cannula 2.0 03/27/17 02:43 112 149/89 95 Nasal Cannula 5.0 03/27/17 02:25 131 177/92 03/27/17 02:22 141 94 Nasal Cannula 5.0 03/27/17 02:17 140 84 Room Air 03/27/17 00:00 Nasal Cannula 2.0 03/26/17 22:51 37.1 84 16 138/76 98 Nasal Cannula 2.0 03/26/17 15:40 Nasal Cannula 2.0 03/26/17 15:23 36.9 76 18 118/69 99 Nasal Cannula 2.0 Physical Exam General Appearance: WD/WN, no apparent distress Respiratory/Chest: normal breath sounds, no respiratory distress Cardiovascular: no murmur, + pertinent finding (bilateral edema) Abdomen: normal bowel sounds, non tender, soft Neurologic/Psych: normal mood/affect, oriented x 3 Laboratory Results Last 24 Hours Test 03/26/17 17:07 03/26/17 22:05 03/27/17 00:00 03/27/17 05:56 Bedside Glucose 127 mg/dl 130 mg/dl Peritoneal Fluid Color YELLOW Peritoneal Fluid Appearance CLEAR Peritoneal Fluid WBC 220 /uL Peritoneal Fluid RBC < 3000 /uL Peritoneal Fld Mononuclear WBCs (%) 58.7 % Peritoneal Fld Polynuclear WBCs (%) 41.3 % Peritoneal Fluid Total Protein 0.9 g/dl Peritoneal Fluid Albumin < 0.6 g/dl Peritoneal Fluid Amylase 10 U/L Peritoneal Fluid Lipase 83 U/L Peritoneal Fluid Triglycerides 33 mg/dl White Blood Count 7.11 K/uL Red Blood Count 3.49 M/uL Hemoglobin 11.3 g/dL Hematocrit 33.4 % Mean Corpuscular Volume 95.7 fL Mean Corpuscular Hemoglobin 32.4 pg Mean Corpuscular Hemoglobin Concent 33.8 g/dl Platelet Count 58 K/uL Mean Platelet Volume 12.1 fL Neutrophils (%) (Auto) 78.0 % Lymphocytes (%) (Auto) 8.2 % Monocytes (%) (Auto) 9.6 % Eosinophils (%) (Auto) 3.2 % Basophils (%) (Auto) 0.4 % Neutrophils # (Auto) 5.55 K/uL Lymphocytes # (Auto) 0.58 K/uL Monocytes # (Auto) 0.68 K/uL Eosinophils # (Auto) 0.23 K/uL Basophils # (Auto) 0.03 K/uL RDW Standard Deviation 56.7 fL RDW Coefficient of Variation 16.3 % Immature Granulocyte % (Auto) 0.6 % Immature Granulocyte # (Auto) 0.04 K/uL Platelet Estimate DECREASED Prothrombin Time 15.1 SECONDS Prothromb Time International Ratio 1.4 Sodium Level 135 mmol/L Potassium Level 3.8 mmol/L Chloride Level 102 mmol/L Carbon Dioxide Level 25 mmol/L Anion Gap 8.0 mmol/L Blood Urea Nitrogen 24 mg/dl Creatinine 1.30 mg/dl Est Creatinine Clear Calc Drug Dose 69.3 ml/min Estimated GFR () 66.8 Estimated GFR (Non- 57.7 BUN/Creatinine Ratio 18.7 Random Glucose 127 mg/dl Calcium Level 7.9 mg/dl Total Bilirubin 5.2 mg/dl Direct Bilirubin 3.7 mg/dl Aspartate Amino Transf (AST/SGOT) 44 U/L Alanine Aminotransferase (ALT/SGPT) 27 U/L Alkaline Phosphatase 204 U/L Ammonia < 10.0 umol/L Total Protein 5.5 gm/dl Albumin 1.9 gm/dl Test 03/27/17 06:05 03/27/17 08:17 03/27/17 10:20 Bedside Glucose 114 mg/dl 104 mg/dl Vancomycin Level Trough 18.3 mcg/ml Assessment and Plan Mental status changes-resolved--could be from hepatic encephalopathy but ammonia level was not really in range I would expect that to be causing problem , pain medication and sepsis can also do this--=ammonia normal today Elevated ammonia--resolved--lactulose stopped Ascites--s/p paracenteis and PMS only 90 so doubt SBP, could stop cipro and flagyl versus wait for cultures either way acceptable cirrhosis--patient has not had full workup for etiology but sarcoidosis and ETOH and SANTOS can all be causative--told patient and and daughtera on admit recommend complete abstinence from ETOH. possible diverticulitis DC on CT--clinically no pain to suggest that but cipro and Flagyl will cover that calcified GB versus gallstones on CT--no gallstones on U/S--if has truly has calcified GB wall then worry about porcelain GB which has malignant potential-- Will speak with radiology regarding do they really feel GB wall calcified. elevated LFTs--worse today Normoacytic anemia--improved--no history of black or bloody stools---brown thromobocytopenia--likely from splenomegaly from portal HTN Others per Dr Patterson: Blood culture positive--staph--ortho may be doing I and D on back at some point , doubt GI source DM
[2017-03-27] MEDS: CIPROFLOXACIN / D5W 400 MG in PREMIXED IN D5W 200 ML IV SCH (13:44)
[2017-03-27] MEDS: ONDANSETRON INJ 8 MG in DEXTROSE 5% 50ML 50 ML IV PRN (17:02)
--- NOTE | 2017-03-27 17:06 | DIAGNOSTIC IMAGING REPORT ---
LUMBAR SPINE MRI HISTORY: Pain post op back pain TECHNIQUE: Multiplanar multisequence MRI of the lumbar spine was performed without the use of contrast. COMPARISON: 03/10/2017 FINDINGS: For the purpose of the report the L5-S1 disc space will be located on axial image 27 of 30. Very limited study diagnostically due to the presence of severe patient motion and inability to tolerate the procedure. Interval L4-L5 laminectomy and fusion. Soft tissue posterior to the L4-L5 complex difficult to evaluate given given poor signal characteristics. There is suggestion that this is displaced the thecal sac anteriorly. Large disc herniation extruded disc fragment is less well-defined currently although this may be secondary to the poor caliber of the study are in L1-L2: No significant central canal or neural foraminal narrowing. L2-L3: Mild broad-based disc bulge. Mild impact anterior thecal sac. L3-L4: No significant central canal or neural foraminal narrowing. L4-L5: Apparent anterior displacement of the thecal sac versus abnormal soft tissue within the cecal thecal sac specifically. Lack resolution makes it extremely difficult to evaluate the significance of this finding. A large disc herniation appears to be diminished as does the extruded disc fragment posterior to L5. L5-S1: No significant central canal or neural foraminal narrowing. IMPRESSION: 1. Near nondiagnostic and/or nondiagnostic study of the lumbar spine despite several attempts. 2. Potential soft tissue of uncertain etiology posterior to the L4 level at the L4-L5 laminectomy and fusion site. 3. This measures 4.6 x 4.8 cm. It may be consistent with postprocedural granulation tissue, artifact, versus the less likely possibility of hemorrhage . It may be displacing the thecal sac anteriorly. 4. If the patient is able at a later time, a repeat scan potentially would be of assistance Electronically signed by: Naga Vázquez M.D. 03/27/2017 5:04 PM Dictated Date/Time: 03/27/2017 4:56 PM
[2017-03-27] MEDS: ACETAMINOPHEN 500 MG TAB PO PRN (20:37)
--- NOTE | 2017-03-27 21:30 | PROGRESS NOTE ---
DATE: 03/27/2017 A 62-year-old male admitted with metabolic encephalopathy related to his liver cirrhosis and also sepsis. His medical problems include type 2 diabetes mellitus, sarcoidosis with pulmonary and extrapulmonary manifestation, arterial hypertension, sleep apnea, history of atrial septal defect, status post repair in 2014. He also is diagnosed with liver cirrhosis. Early during the night, around 2:30 in the morning, he got up to go to the bathroom, and when he came back, he was markedly dyspneic. His oxygen saturation decreased. He was wheezing. His blood pressure increased. His heart rate also increased. He got back into bed. The patient was placed on oxygen. I saw him at that time. He was markedly dyspneic. His oxygen saturation improved with supplemental oxygen. He was given IV Lasix, a dose of 40 mg. Also given Xopenex treatment. Chest x-ray was done, showed evidence of interstitial edema. Electrocardiogram was done and showed no acute changes. His condition gradually improved. Multiple things were done today includin. He had paracentesis. 1400 mL of peritoneal fluid evacuated. There was no evidence of any infection. 2. He had an MRI of the lumbar spine done. This was done this afternoon. The study was of poor quality. There is what is described as potential soft tissue of uncertain etiology posterior to the L4 level, at the L4-L5 laminectomy and fusion site. This measured 4.6 x 4.8 cm. It may be consistent with post-procedural granulation tissue, artifact, or possibly hemorrhage. 3. An echocardiogram was attempted but was not completed. At this time, the patient is resting comfortably. He denied any headache. No dizziness. No chest pain. He does get dyspneic with activity. No abdominal pain. He does have nausea, needing Zofran. No vomiting. He has had multiple bowel movements. He is off lactulose now. Denied any urinary problem. He does complain of low back pain. Also, he does have swelling in both legs. PHYSICAL EXAMINATION: GENERAL: Well developed. No acute distress. VITAL SIGNS: This evening blood pressure 121/73, pulse 91, respiration 18, temperature 38.7, oxygen saturation 97% on 2 liter oxygen by nasal cannula. SKIN: Warm and dry. No rash. HEENT: No mucosal abnormality. He does have evidence of conjunctival icterus. NECK: Supple. Nontender. No JVD. HEART: Regular heart sounds with 2/6 systolic murmur. LUNGS: Decreased breath sounds. Scattered wheezes. ABDOMEN: Protruded. Soft. Nontender. BACK: His incision is not inflamed. No discharge. EXTREMITIES: Bilateral leg edema. No clubbing or cyanosis. TODAY'S LABORATORY TESTS: WBC count 7100, hemoglobin 11.3, hematocrit 33.4, platelet count 58,000. INR 1.4. Sodium 135, potassium 3.8, chloride 102, CO2 of 25, BUN 24, creatinine 1.3, glucose 127, calcium 7.9, total bilirubin 5.2, direct bilirubin 3.7, AST 44, ALT 27, alkaline phosphatase 204, total protein 5.5, albumin 1.9. ASSESSMENT: 1. Acute congestive heart failure, most likely on the basis of diastolic dysfunction. 2. Staphylococcus sepsis. 3. Status post lumbar laminectomy for herniated disc. 4. Liver cirrhosis. 5. History of atrial septal defect, status post repair. 6. Sarcoidosis with pulmonary and extrapulmonary manifestations. 7. Suspected diverticulitis. PLAN: 1. Continuing the same medications at this time. His IVs consist of Flagyl and Cipro, initiated because of suspected diverticulitis. He is on vancomycin because of the staph sepsis. His blood culture, both of them grew staphylococcus. It is sensitive to vancomycin. Also sensitive to daptomycin. It is not methicillin resistant. So we are continuing all the antibiotics at this time. 2. As noted, his MRI was done and the results are as noted. 3. I spoke with Dr. Gray this evening. He will review the MRI. Tentatively, the patient will have surgery on Monday to have an incision and drainage and placement of a drain. The main concern is about sepsis and possible seeding of the surgical site. 4. Echocardiogram was done today. We will see what that shows. Obviously, the concern is about the fact that he had a prior repair of his ASD with a patch. We will decide after the initial echocardiogram whether he will need a transesophageal echocardiogram. 5. We will continue with IV Lasix as needed. 6. We will repeat his chest x-ray in the morning. 7. We will continue his other medications. 8. In anticipation for the surgery on Monday, I spoke with blood bank and anticipate in needing 2 units of platelets. His platelet count today is 58,000. We will give him 2 units. 9. We will also keep monitoring his INR and decide on the need of fresh frozen plasma.
[2017-03-28] VITALS (19 sets, daily range): BP systolic 87–138; BP diastolic 45–72; PULSE 68–121; TEMP 36.5–37.6; O2SAT 94–98
[2017-03-28] MEDS: METRONIDAZOLE / NSS 500 MG in PREMIXED NSS 100 ML IV SCH ×4 (00:35→23:09)
[2017-03-28] MEDS: CIPROFLOXACIN / D5W 400 MG in PREMIXED IN D5W 200 ML IV SCH ×2 (00:35→13:02)
[2017-03-28] MEDS: HYDROmorphone INJ 1 MG/ML SYR IV PRN ×3 (00:46→21:30)
[2017-03-28] MEDS: LEVALBUTEROL 1.25MG/3ML NEB INH SCH ×4 (01:42→20:09)
[2017-03-28] MEDS ORDERED: FUROSEMIDE INJ 40 MG in SYRINGE 0 ML IV ONE ×2 (05:45→14:00)
[2017-03-28 06:39] LABS: MEAN CELL VOLUME 93.7 fL (80-100); MEAN CORPUSCULAR HEMOGLOBIN 31.7 pg (25-34); MEAN CORPUSCULAR HGB CONC 33.8 g/dl (32-36); RED BLOOD COUNT 3.63 M/uL (4.7-6.1); WHITE BLOOD COUNT 7.51 K/uL (4.8-10.8)
[2017-03-28 06:47] LABS: INR 1.7 (0.9-1.1); PROTHROMBIN TIME (PATIENT) 18.2 SECONDS (9.0-12.0)
[2017-03-28 07:10] LABS: BASO % 0.7 %; BASO ABS # 0.05 K/uL (0-0.2); COMPLETE YES; EOS % 4.5 %; IG% 0.9 %; LYMPH % 8.7 %; LYMPH ABS # 0.65 K/uL (1.2-3.4); MEAN PLATELET VOLUME 11.1 fL (7.4-10.4); MONO % 10.9 %; NEUT % 74.3 %; PLATELET COUNT 62 K/uL (130-400)
[2017-03-28 07:12] LABS: CALCIUM 7.9 mg/dl (8.5-10.1); CREATININE 1.3 mg/dl (0.60-1.40); POTASSIUM 3.2 mmol/L (3.5-5.1)
[2017-03-28] MEDS: INSULIN ASPART 100 UNITS/ML 3 ML PEN SC SCH ×4 (08:00→21:00)
[2017-03-28] MEDS ORDERED: POTASSIUM CHLORIDE 10 MEQ TABCR PO ONE ×3 (08:15→17:00)
--- NOTE | 2017-03-28 08:19 | PROGRESS NOTE ---
DATE: 03/28/2017 Continues to have back pain, no radicular complaints. I did review his MRI with the patient. There is significant fluid collection and compression of the thecal sac. This combined with his risks for infection we have elected to undergo I\T\D of the lumbar spine tomorrow morning. Hopefully around 9-10 o'clock will begin this procedure. My discussion with Dr. Nielsen he will be transfused with FFP and platelets today and tomorrow preoperatively. All questions were addressed. The patient understands and agrees. Will plan for surgery after tomorrow; n.p.o. after midnight.
--- NOTE | 2017-03-28 09:07 | DIAGNOSTIC IMAGING REPORT ---
CHEST ONE VIEW PORTABLE CLINICAL HISTORY: Congestive heart failure. COMPARISON STUDY: Chest radiograph March 2017. FINDINGS: Cardiomediastinal silhouette is stable. There is no pneumothorax or pleural effusion. There is mild right infrahilar opacity. Pulmonary vascular congestion has improved. IMPRESSION: 1. Interval improvement in pulmonary vascular congestion. 2. Suspected right infrahilar opacity which could reflect consolidation or atelectasis. Radiographic follow-up is recommended. Electronically signed by: Shayne Buchanan M.D. 03/28/2017 9:06 AM Dictated Date/Time: 03/28/2017 8:57 AM
[2017-03-28] MEDS: VANCOMYCIN INJ 1,600 MG in SODIUM CHLORIDE 0.9% 500ML 500 ML IV SCH ×2 (09:35→21:30)
--- NOTE | 2017-03-28 11:25 | ECHOCARDIOGRAM REPORT ---
*NOTICE TO RECEIVING LIBERTARIAN AGENCY This information is strictly Confidential and protected under [place] law. [place] law prohibits you from making any further disclosure of this information unless further disclosure is expressly permitted by the written consent of the person to whom it pertains or is authorized by law. A general authorization for the release of medical or other information is not sufficient for this purpose. Hospital accepts no responsibility if the information is made available to any other person, INCLUDING THE PATIENT. Interpretation Summary * Name: ALEXIS FENG JR Study Date: 03/28/2017 06:42 AM * Patient Location: [facility] [place]\S\N375\S\2 HR: 86 * : 1955 (M/d/yyyy) Gender: Male Height: 67 in * Age: 62 yrs Ethnicity: [place] Weight: 251 lb * Ordering Physician: Hu Ackerman * Referring Physician: Self, Referred * Performed By: Gisela Arroyo RDCS * * Reason For Study: Staph sepsis, post ASD repair, looking for vegetations * BSA: 2.2 m2 * There is no evidence of a mass or vegetation. This does not rule out endocarditis. * -- Conclusions -- * The study was technically difficult. * Left ventricular systolic function is low normal. * Regional wall motion abnormalities cannot be excluded due to limited visualization. * The right ventricle is mild to moderately dilated. * The right ventricular systolic function is normal as assessed by tricuspid annular plane systolic excursion (TAPSE) (normal >1.5 cm). * The left atrium is mildly dilated. * Mild valvular aortic stenosis. * There is mild mitral regurgitation. * There is mild mitral annular calcification. * Right ventricular systolic pressure is normal. * There is no evidence of a mass or vegetation. This does not rule out endocarditis. * Compared to an echocardiogram from 01/2016, there is no significant difference Procedure Details * A complete two-dimensional transthoracic echocardiogram was performed (2D, M-mode, Doppler and color flow Doppler). * The study was technically difficult. Left Ventricle * The left ventricle is normal in size. * There is normal left ventricular wall thickness. * Ejection Fraction = 50-55%. * Left ventricular systolic function is low normal. * Regional wall motion abnormalities cannot be excluded due to limited visualization. Right Ventricle * The right ventricle is mild to moderately dilated. * The right ventricular systolic function is normal as assessed by tricuspid annular plane systolic excursion (TAPSE) (normal >1.5 cm). Atria * The left atrium is mildly dilated. * The right atrium is mildly dilated. * There is an ASD patch visualized. Mitral Valve * The mitral valve leaflets appear thickened, but open well. * There is mild mitral annular calcification. * There is mild mitral regurgitation. Tricuspid Valve * The tricuspid valve is not well visualized, but is grossly normal. * There is mild tricuspid regurgitation. * Right ventricular systolic pressure is normal. Aortic Valve * Mild valvular aortic stenosis. * There is no significant aortic regurgitation. Pericardium/Pleural * There is no pericardial effusion. Left Ventricular Diastolic Function * Pulse wave TDI of the anterior and posterior mitral annulas demonstrates normal LV relaxation MMode 2D Measurements and Calculations IVSd 10 cm LVIDd 5.2 cm LVIDs 3.3 cm LVPWd 1.0 cm IVS/LVPW 0.99 FS 35.9 % EDV(Teich) 128.8 ml ESV(Teich) 44.9 ml EF(Teich) 65.1 % EDV(cubed) 139.6 ml ESV(cubed) 36.7 ml EF(cubed) 73.7 % LV mass(C)d 193.9 grams LV mass(C)dI 87.1 grams/m\S\2 SV(Teich) 83.9 ml SI(Teich) 37.7 ml/m\S\2 SV(cubed) 102.9 ml SI(cubed) 46.2 ml/m\S\2 Ao root diam 3.1 cm Ao root area 7.3 cm\S\2 ACS 1.7 cm LA dimension 3.8 cm asc Aorta Diam 3.1 cm LA/Ao 1.2 LVOT diam 2.0 cm LVOT area 3.0 cm\S\2 LVAd ap4 29.9 cm\S\2 LVLd ap4 8.4 cm EDV(MOD-sp4) 83.7 ml EDV(sp4-el) 90.4 ml LVAs ap4 17.9 cm\S\2 LVLs ap4 7.6 cm ESV(MOD-sp4) 34.1 ml ESV(sp4-el) 35.8 ml EF(MOD-sp4) 59.3 % EF(sp4-el) 60.4 % LVAd ap2 33.0 cm\S\2 LVLd ap2 8.2 cm EDV(MOD-sp2) 106.3 ml EDV(sp2-el) 112.4 ml LVAs ap2 19.7 cm\S\2 LVLs ap2 7.1 cm ESV(MOD-sp2) 44.9 ml ESV(sp2-el) 46.3 ml EF(MOD-sp2) 57.8 % EF(sp2-el) 58.8 % LVLd %diff -2.35 % EDV(MOD-bp) 96.0 ml LVLs %diff -6.82 % ESV(MOD-bp) 40.4 ml EF(MOD-bp) 57.9 % SV(MOD-sp4) 49.6 ml SI(MOD-sp4) 22.3 ml/m\S\2 SV(MOD-sp2) 61.5 ml SI(MOD-sp2) 27.6 ml/m\S\2 SV(MOD-bp) 55.6 ml SI(MOD-bp) 25.0 ml/m\S\2 SV(sp4-el) 54.6 ml SI(sp4-el) 24.5 ml/m\S\2 SV(sp2-el) 66.1 ml SI(sp2-el) 29.7 ml/m\S\2 Doppler Measurements and Calculations MV E max garrett 116.3 cm/sec MV A max garrett 80.7 cm/sec MV E/A 1.4 MV dec time 0.29 sec Ao V2 max 231.9 cm/sec Ao max PG 21.5 mmHg Ao max PG (full) 15.1 mmHg Ao V2 mean 161.1 cm/sec Ao mean PG 11.7 mmHg Ao V2 VTI 40.3 cm LOLA(V,A) 1.6 cm\S\2 LOLA(V,D) 1.6 cm\S\2 LV V1 max PG 6.4 mmHg LV V1 max 126.4 cm/sec MR max garrett 487.9 cm/sec MR max PG 95.2 mmHg MR mean garrett 394.6 cm/sec MR mean PG 68.6 mmHg MR VTI 148.0 cm SV(Ao) 294.7 ml SI(Ao) 132.3 ml/m\S\2 PA V2 max 94.2 cm/sec PA max PG 3.5 mmHg PA acc slope 445.5 cm/sec\S\2 PA acc time 0.19 sec TR max garrett 261.9 cm/sec PA pr(Accel) -4.33 mmHg
[2017-03-28] MEDS ORDERED: NURSING VERBAL MED ORDER ONE ×2 (12:30→23:00)
--- NOTE | 2017-03-28 12:51 | Gastroenterology Progress Note ---
Progress Note Date of Service: March 28, 2017 Subjective Pt evaluation today including: conversation w/ patient, conversation w/ family (), physical exam, chart review, lab review, review of studies, review of inpatient medication list CC f/u ascites HPI No abd pain. Tolerating diet. Review of Systems Respiratory: + shortness of breath Cardiac: No chest pain Medications Current Inpatient Medications Medications (Trade) Dose Ordered Sig/Nathalia Route Start Time Stop Time Status Last Admin Dose Admin Prednisone 10 mg 10 mg QAM PO 03/25/17 09:00 04/24/17 08:59 03/28/17 08:58 10 MG Ciprofloxacin/ Dextrose 400 mg/ Prmx 200 ml @ 100 mls/hr Q12H IV 03/25/17 00:00 04/04/17 00:00 03/28/17 00:35 100 MLS/HR Metronidazole/Prmx (Flagyl / Nss/ Premixed Nss) 100 ml @ 100 mls/hr Q8H IV 03/24/17 23:00 04/03/17 22:59 03/28/17 06:30 100 MLS/HR Glucose (Glucose 40% Gel) 15-30 GRAMS 15 GRAMS... UD PRN PO 03/24/17 22:45 04/23/17 22:44 Glucose (Glucose Chew Tab) 4-8 Tablets 4 Tabl... UD PRN PO 03/24/17 22:45 04/23/17 22:44 Dextrose (Dextrose 50% 50ML Syringe) 25-50ML OF 50% DW IV FOR... UD PRN IV 03/24/17 22:45 04/23/17 22:44 Glucagon 1 mg 1 mg UD PRN SQ 03/24/17 22:45 04/23/17 22:44 Ondansetron HCl/ Dextrose (Zofran Inj/D5 50ml) 54 ml @ 200 mls/hr Q4H PRN IV 03/25/17 05:30 04/24/17 05:29 03/27/17 17:02 200 MLS/HR Acetaminophen (Tylenol Tab) 500 mg Q4H PRN PO 03/25/17 07:45 04/24/17 07:44 03/27/17 20:37 500 MG Vancomycin HCl 1 ea 1 ea UD PRN N/A 03/25/17 13:45 04/24/17 13:44 Vancomycin HCl/ Sodium Chloride (Vancomycin Inj/ Nss 500ml) 532 ml @ 200 mls/hr Q12@1000,2200 IV 03/25/17 22:00 04/08/17 21:59 03/28/17 09:35 200 MLS/HR Hydromorphone HCl (Dilaudid Inj) 0.5 mg Q4H PRN IV 03/26/17 02:30 04/09/17 02:29 03/28/17 00:46 0.5 MG Levalbuterol (Xopenex 1.25MG/ 3ML Neb) 1.25 mg Q6R INH 03/27/17 09:00 04/26/17 08:59 03/28/17 12:11 1.25 MG Insulin Aspart SLIDING SCALE G... ACHS SC 03/27/17 21:00 04/26/17 20:59 Furosemide/Syringe (Lasix Inj/ Syringe) 4 ml @ 4 mls/min ONE ONCE IV 03/28/17 14:00 03/28/17 14:01 Potassium Chloride (Klor-Con M10) 30 meq ONE ONCE PO 03/28/17 17:00 03/28/17 17:01 Miscellaneous Information (Nursing Verbal Med Order) 1 ea ONE ONCE N/A 03/28/17 12:30 03/28/17 12:31 UNV Objective Vital Signs Date Time Temp Pulse Resp B/P Pulse Ox O2 Delivery O2 Flow Rate FiO2 03/28/17 12:15 121 20 98 Nasal Cannula 2.0 03/28/17 08:04 37.2 88 20 138/72 96 Room Air 03/28/17 07:45 Room Air 03/28/17 01:42 83 20 97 Nasal Cannula 2.0 03/27/17 23:54 36.9 81 20 113/66 95 03/27/17 23:00 CPAP 03/27/17 20:38 95 Room Air 03/27/17 20:04 85 14 98 Nasal Cannula 2.0 03/27/17 19:35 Room Air 03/27/17 17:00 Nasal Cannula 2.0 03/27/17 16:53 38.7 91 18 121/73 97 Nasal Cannula 2.0 03/27/17 14:06 87 14 95 Nasal Cannula 2.0 Physical Exam General Appearance: WD/WN, no apparent distress Respiratory/Chest: lungs clear, normal breath sounds Cardiovascular: regular rate, rhythm, + pertinent finding (bilateral lower extremity edema) Neurologic/Psych: normal mood/affect, oriented x 3 Laboratory Results Last 24 Hours Test 03/27/17 17:57 03/27/17 20:39 03/28/17 06:22 03/28/17 08:13 Bedside Glucose 129 mg/dl 118 mg/dl 74 mg/dl White Blood Count 7.51 K/uL Red Blood Count 3.63 M/uL Hemoglobin 11.5 g/dL Hematocrit 34.0 % Mean Corpuscular Volume 93.7 fL Mean Corpuscular Hemoglobin 31.7 pg Mean Corpuscular Hemoglobin Concent 33.8 g/dl Platelet Count 62 K/uL Mean Platelet Volume 11.1 fL Neutrophils (%) (Auto) 74.3 % Lymphocytes (%) (Auto) 8.7 % Monocytes (%) (Auto) 10.9 % Eosinophils (%) (Auto) 4.5 % Basophils (%) (Auto) 0.7 % Neutrophils # (Auto) 5.58 K/uL Lymphocytes # (Auto) 0.65 K/uL Monocytes # (Auto) 0.82 K/uL Eosinophils # (Auto) 0.34 K/uL Basophils # (Auto) 0.05 K/uL RDW Standard Deviation 55.5 fL RDW Coefficient of Variation 16.0 % Immature Granulocyte % (Auto) 0.9 % Immature Granulocyte # (Auto) 0.07 K/uL Prothrombin Time 18.2 SECONDS Prothromb Time International Ratio 1.7 Sodium Level 135 mmol/L Potassium Level 3.2 mmol/L Chloride Level 101 mmol/L Carbon Dioxide Level 26 mmol/L Anion Gap 8.0 mmol/L Blood Urea Nitrogen 26 mg/dl Creatinine 1.30 mg/dl Est Creatinine Clear Calc Drug Dose 68.7 ml/min Estimated GFR () 66.8 Estimated GFR (Non- 57.7 BUN/Creatinine Ratio 20.0 Random Glucose 107 mg/dl Calcium Level 7.9 mg/dl Total Bilirubin 7.3 mg/dl Direct Bilirubin 5.4 mg/dl Aspartate Amino Transf (AST/SGOT) 47 U/L Alanine Aminotransferase (ALT/SGPT) 26 U/L Alkaline Phosphatase 209 U/L Ammonia < 10.0 umol/L Total Protein 5.5 gm/dl Albumin 2.0 gm/dl Test 03/28/17 11:54 Bedside Glucose 114 mg/dl Assessment and Plan Mental status changes-resolved--could be from hepatic encephalopathy but ammonia level was not really in range I would expect that to be causing problem , pain medication and sepsis can also do this--=ammonia normal today Elevated ammonia--resolved--lactulose stopped Ascites--s/p paracenteis and PMS only 90 so doubt SBP, could stop cipro and flagyl versus wait for cultures either way acceptable, cx neg so far, serum ascites albumin gradient >1.3 consistent with portal HTN as cause, amylase, trigs, TP negative., Cytology pending cirrhosis--patient has not had full workup for etiology but sarcoidosis and ETOH and SANTOS can all be causative--told patient and and daughtera on admit recommend complete abstinence from ETOH. possible diverticulitis DC on CT--clinically no pain to suggest that but cipro and Flagyl will cover that calcified GB versus gallstones on CT--no gallstones on U/S--discussed with DR Beltrán of radiology and he looked at CT which showed 2-2 mm calcifications of GB wall and NOT porcealin GB so no further evalluatation needed. elevated LFTs--TB worse today. continue to follow Normoacytic anemia--stable--no history of black or bloody stools---brown thromobocytopenia--likely from splenomegaly from portal HTN Others per Dr Patterson: Blood culture positive--staph--ortho may be doing I and D on back at some point , doubt GI source DM
[2017-03-28] MEDS ORDERED: METOPROLOL TARTRATE 50 MG TAB PO ONE (12:58)
[2017-03-28] MEDS: SODIUM CHLORIDE 0.65% NA SOLN 45 ML (OCEAN) PRN (13:07)
[2017-03-28] MEDS: ACETAMINOPHEN 500 MG TAB PO PRN (14:51)
--- NOTE | 2017-03-28 20:41 | Anesthesiology Progress Note ---
Pre-OP Anesthesia Assessment Date of Note March 28, 2017. Review patient information reviewed, chart reviewed, labs reviewed, acceptable for surgery Notes 62 yo male had lumbar decompression 03/16/17. There were no anesthesia related complaints or complications postoperatively. Developed fluid collection at operative site and presents for wound exploration, I & D. PMH is complicated and includes DM, sarcoidosis, HTN, THUY, and chronic thrombocytopenia. Also noted hypokalemia and coagulopathy at present. Received platelets earlier today and p.o potassium supplements. Would review repeat labs preoperatively. GA discussed. He expressed understanding and signed informed consent.
[2017-03-28] MEDS: METOPROLOL TARTRATE 50 MG TAB PO SCH (21:00)
--- NOTE | 2017-03-28 23:42 | PROGRESS NOTE ---
DATE: 03/28/2017 SUBJECTIVE: A 62-year-old male with multiple problems includin. Mental status changes thought to be related to hepatic encephalopathy and sepsis. 2. Staphylococcus sepsis. 3. Status post surgery for herniated L4-L5 disk. 4. Sleep apnea. 5. Liver cirrhosis. 6. Thrombocytopenia. 7. Suspected diverticulosis. 8. History of atrial septal defect requiring repair in 2014. 9. Type 2 diabetes mellitus. 10. Hyperlipidemia. 11. Arterial hypertension. 12. 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 The patient was admitted. Cultures were done. Blood cultures grew Staphylococcus. He also was suspected of having a diverticulitis. Currently, he is on Flagyl and ciprofloxacin and also vancomycin. He was having recurrent low back pain. MRI of the lumbar spine showed a fluid collection. Dr. Gray is intending on taking the patient to the operating room to do an incision and drainage of the area. He denied any headache. No dizziness. No earache, sore throat or neck pain. No chest pain. His shortness of breath has improved. He did present with congestive heart failure. He was diuresed with IV Lasix. No abdominal pain. Recurrent nausea at times. No vomiting. He has had multiple bowel movements. Initially, he was started on lactulose because of his hepatic encephalopathy. Denied any problem urinating. He does have low back pain. He does have swelling in both legs. PHYSICAL EXAMINATION: GENERAL: Well developed, in no acute distress. VITAL SIGNS: Blood pressure 138/72, pulse 88, respirations 20, temperature 37.2, oxygen saturation 96% on room air. SKIN: Warm and dry. No rash. HEENT: No mucosal abnormalities. NECK: No JVD, no adenopathy. HEART: Regular heart sounds with 2/6 systolic murmur. LUNGS: Decreased breath sounds. No wheezing. No rales. ABDOMEN: Protruded. Soft, nontender. He does have ascites. Paracentesis was done yesterday and 1400 mL of fluid evacuated. BACK: Surgical scar, lower back. EXTREMITIES: Bilateral leg edema. No clubbing or cyanosis. TODAY'S LABORATORY TESTS: Sodium 135, potassium 3.2, chloride 102, CO2 26, BUN 26, creatinine 1.3, glucose 107. Calcium 7.9, total bilirubin 7.3, direct bilirubin 5.4, AST 47, ALT 26, alkaline phosphatase 209. WBC count 7510, hemoglobin 11.5, hematocrit 34, platelet count 62,000. INR 1.7. IMAGING DATA: His chest x-ray showed improvement as far as the congestive changes. Today, he presented with an episode where his heart rate increased, as high as 120. Electrocardiogram was done. No acute changes noted. His rate subsequently came down to 101. He was started on metoprolol. Also today, an echocardiogram was done. The results did not indicate the presence of any vegetation or any valvular problem but the study was limited because of the quality. Dr. Lopez recommended doing a CORDELL. Cardiology consultation was requested. ASSESSMENT: 1. Hepatic encephalopathy. Resolved. 2. Staphylococcus sepsis. 3. Status post surgery for herniated L4-L5 disk. 4. Recurrent back pain and evidence of fluid collection at the surgical site. 5. Sarcoidosis both pulmonary and extra pulmonary manifestations. 6. Type 2 diabetes mellitus. 7. Thrombocytopenia. 8. Liver cirrhosis. PLAN: 1. Anticipating surgery tomorrow. 2. The patient was transfused 2 units of platelets today. 3. His INR is elevated to 1.7. The plan is to give him 2 units of fresh frozen plasma tomorrow morning early prior to his surgery. 4. We will be repeating his laboratory test in the morning. 5. He was started on metoprolol tartrate 50 mg twice a day. 6. Continuing his IV antibiotics. 7. Planning for CORDELL to be done on . AMBIKA
[2017-03-29] VITALS (29 sets, daily range): BP systolic 92–116; BP diastolic 54–75; PULSE 64–86; TEMP 36.7–37.4; O2SAT 93–100
[2017-03-29] MEDS: CIPROFLOXACIN / D5W 400 MG in PREMIXED IN D5W 200 ML IV SCH ×2 (00:12→14:04)
[2017-03-29] MEDS: LEVALBUTEROL 1.25MG/3ML NEB INH SCH ×4 (01:56→19:38)
[2017-03-29 04:24] LABS: HEMATOCRIT 27.8 % (42-52); MEAN CELL VOLUME 92.4 fL (80-100); MEAN CORPUSCULAR HEMOGLOBIN 32.6 pg (25-34); MEAN CORPUSCULAR HGB CONC 35.3 g/dl (32-36); RED BLOOD COUNT 3.01 M/uL (4.7-6.1); WHITE BLOOD COUNT 6.29 K/uL (4.8-10.8)
[2017-03-29 04:27] LABS: MEAN PLATELET VOLUME 10.8 fL (7.4-10.4); PLATELET COUNT 74 K/uL (130-400)
[2017-03-29 04:38] LABS: INR 1.5 (0.9-1.1); PROTHROMBIN TIME (PATIENT) 16.8 SECONDS (9.0-12.0)
[2017-03-29 04:46] LABS: ALB/GLOB RATIO 0.7 (0.9-2); BUN/CREATININE RATIO 20.1 (10-20); CALCIUM 7.8 mg/dl (8.5-10.1); CREATININE 1.3 mg/dl (0.60-1.40); POTASSIUM 3.4 mmol/L (3.5-5.1)
[2017-03-29 04:54] LABS: BASO % 0.5 %; BASO ABS # 0.03 K/uL (0-0.2); COMPLETE YES; DOHLE BODIES 1+; LYMPH % 13.8 %; LYMPH ABS # 0.87 K/uL (1.2-3.4); NEUT % 67.7 %; TARGET CELLS 1+; TOXIC GRANULATION 3+; VACUOLIZATION 1+
[2017-03-29] MEDS: HYDROmorphone INJ 1 MG/ML SYR IV PRN ×3 (04:55→17:32)
[2017-03-29] MEDS ORDERED: POTASSIUM CHLORIDE 10 MEQ TABCR PO STA (05:36)
[2017-03-29] MEDS: INSULIN ASPART 100 UNITS/ML 3 ML PEN SC SCH ×4 (05:56→23:00)
[2017-03-29] MEDS: METRONIDAZOLE / NSS 500 MG in PREMIXED NSS 100 ML IV SCH ×3 (06:36→22:55)
[2017-03-29] MEDS ORDERED: FUROSEMIDE INJ 40 MG in SYRINGE 0 ML IV ONE (07:30)
[2017-03-29 08:22] LABS: INR 1.4 (0.9-1.1); PROTHROMBIN TIME (PATIENT) 15.7 SECONDS (9.0-12.0)
[2017-03-29] MEDS ORDERED: VANCOMYCIN TROUGH ONE (09:30)
--- NOTE | 2017-03-29 09:55 | History & Physical Bridge Note ---
H&P Re-Evaluation Bridge Note: I have examined the patient, reviewed the History & Physical and in the interval since the performance of the History & Physical I have noted the following changes of clinical significance: No changes noted
[2017-03-29] MEDS: VANCOMYCIN INJ 1,600 MG in SODIUM CHLORIDE 0.9% 500ML 500 ML IV SCH (10:12)
[2017-03-29] MEDS: METOPROLOL TARTRATE 50 MG TAB PO SCH ×2 (10:32→21:25)
[2017-03-29] MEDS ORDERED: LABETALOL HCL IV 5 MG/ML 20ML IV PRN (11:00)
[2017-03-29] MEDS ORDERED: PHENYLEPHRINE 100MCG/ML 5ML SYR IV PRN (11:00)
[2017-03-29] MEDS ORDERED: MEPERIDINE HCL 25 MG/ML CARP IV PRN (11:00)
[2017-03-29] MEDS ORDERED: ATROPINE SULFATE 0.1 MG/ML 5ML SYR IV PRN (11:00)
[2017-03-29] MEDS ORDERED: HYDROmorphone INJ 2 MG/ML SYR/VIAL IV PRN (11:00)
[2017-03-29] MEDS ORDERED: EpHEDrine SULFATE INJ 50 MG/ML AMP IV PRN (11:00)
[2017-03-29] MEDS ORDERED: FLUMAZENIL 0.1 MG/1 ML 10 ML VIAL IV PRN (11:00)
[2017-03-29] MEDS ORDERED: FENTANYL CITRATE INJ 50 MCG/1 ML 2 ML VIAL IV PRN (11:00)
[2017-03-29] MEDS ORDERED: NALOXONE HCL 0.4 MG/1 ML VIAL/CARP IV PRN ×2 (11:00→12:30)
[2017-03-29] MEDS ORDERED: ONDANSETRON INJ 2 MG/ML 2 ML VIAL IV PRN ×2 (11:00→12:30)
[2017-03-29] MEDS ORDERED: SUCCINYLCHOLINE CHLORIDE 20 MG/ML 10 ML VIAL IV ONE (11:05)
[2017-03-29] MEDS ORDERED: PROPOFOL IV EMULSION 10 MG/ML 20 ML VIAL IV ONE (11:05)
[2017-03-29] MEDS ORDERED: MIDAZOLAM HCL 1 MG/ML 2ML VIAL IV ONE (11:05)
[2017-03-29] MEDS ORDERED: ONDANSETRON INJ 2 MG/ML 2 ML VIAL IV ONE (11:05)
[2017-03-29] MEDS ORDERED: FENTANYL CITRATE INJ 50 MCG/1 ML 2 ML VIAL IV ONE (11:05)
[2017-03-29] MEDS ORDERED: LIDOCAINE HCL 2% 2 ML VIAL (20MG/ML) INFIL ONE (11:05)
[2017-03-29] MEDS ORDERED: HYDROmorphone INJ 2 MG/ML SYR/VIAL IV ONE (11:05)
--- NOTE | 2017-03-29 11:13 | Pharmacy Progress Note ---
Pharmacy Abx Dose Progress Nt Date of Service March 29, 2017. Pharmacy Dosing Scope The patient is currently receiving the following antimicrobial agents per Pharmacy consult: Vancomycin 1600 mg IV every 12 hours Objective Height (Feet): 5 Height (Inches): 7.00 Weight (Kilograms): 112.400 Vital Signs (Past 12Hrs) Vital Signs Past 12 Hours Date Time Temp Pulse Resp B/P Pulse Ox O2 Delivery O2 Flow Rate FiO2 03/29/17 10:31 76 105/59 03/29/17 08:15 37.4 76 19 115/68 95 1.0 03/29/17 07:42 37.1 71 18 105/65 95 03/29/17 07:35 71 14 98 Nasal Cannula 2.0 03/29/17 07:03 37.1 72 18 108/55 96 2.0 03/29/17 06:51 37.1 71 18 101/65 96 2.0 03/29/17 06:32 37.2 70 18 106/66 96 2.0 03/29/17 06:20 36.9 71 18 102/60 96 2.0 03/29/17 05:48 36.8 69 18 104/60 96 2.0 03/29/17 05:21 37.2 71 18 111/66 97 2.0 03/29/17 05:04 37.0 71 18 104/62 96 2.0 03/29/17 04:47 37.0 70 18 101/64 98 2.0 03/29/17 04:45 37.0 64 18 101/64 98 2.0 03/29/17 04:20 37.0 72 18 102/57 97 2.0 03/29/17 03:51 36.8 69 18 109/62 97 2.0 03/29/17 03:21 36.7 77 18 112/67 94 2.0 03/29/17 03:09 36.8 71 18 103/66 97 2.0 03/29/17 02:50 36.8 70 18 92/54 97 Nasal Cannula 2.0 03/29/17 01:56 71 14 97 Nasal Cannula 2.0 03/28/17 23:25 Nasal Cannula 2.0 03/28/17 23:05 36.5 71 18 102/65 97 Nasal Cannula 2.0 Lab Results (24Hrs) Test 03/28/17 23:51 03/29/17 04:15 03/29/17 05:56 03/29/17 08:04 Bedside Glucose 141 mg/dl (70-99) 112 mg/dl (70-99) White Blood Count 6.29 K/uL (4.8-10.8) Red Blood Count 3.01 M/uL (4.7-6.1) Hemoglobin 9.8 g/dL (14.0-18.0) Hematocrit 27.8 % (42-52) Mean Corpuscular Volume 92.4 fL (80-100) Mean Corpuscular Hemoglobin 32.6 pg (25-34) Mean Corpuscular Hemoglobin Concent 35.3 g/dl (32-36) Platelet Count 74 K/uL (130-400) Mean Platelet Volume 10.8 fL (7.4-10.4) Neutrophils (%) (Auto) 67.7 % Lymphocytes (%) (Auto) 13.8 % Monocytes (%) (Auto) 13.0 % Eosinophils (%) (Auto) 4.0 % Basophils (%) (Auto) 0.5 % Neutrophils # (Auto) 4.26 K/uL (1.4-6.5) Lymphocytes # (Auto) 0.87 K/uL (1.2-3.4) Monocytes # (Auto) 0.82 K/uL (0.11-0.59) Eosinophils # (Auto) 0.25 K/uL (0-0.5) Basophils # (Auto) 0.03 K/uL (0-0.2) RDW Standard Deviation 53.3 fL (36.4-46.3) RDW Coefficient of Variation 15.7 % (11.5-14.5) Immature Granulocyte % (Auto) 1.0 % Immature Granulocyte # (Auto) 0.06 K/uL (0.00-0.02) Toxic Granulation 3+ Toxic Vacuolation 1+ Dohle Bodies 1+ Target Cells 1+ Prothrombin Time 16.8 SECONDS (9.0-12.0) 15.7 SECONDS (9.0-12.0) Prothromb Time International Ratio 1.5 (0.9-1.1) 1.4 (0.9-1.1) Sodium Level 135 mmol/L (136-145) Potassium Level 3.4 mmol/L (3.5-5.1) Chloride Level 100 mmol/L (98-107) Carbon Dioxide Level 27 mmol/L (21-32) Anion Gap 8.0 mmol/L (3-11) Blood Urea Nitrogen 26 mg/dl (7-18) Creatinine 1.30 mg/dl (0.60-1.40) Est Creatinine Clear Calc Drug Dose 68.7 ml/min Estimated GFR () 66.8 Estimated GFR (Non- 57.7 BUN/Creatinine Ratio 20.1 (10-20) Random Glucose 123 mg/dl (70-99) Calcium Level 7.8 mg/dl (8.5-10.1) Total Bilirubin 7.1 mg/dl (0.2-1) Aspartate Amino Transf (AST/SGOT) 40 U/L (15-37) Alanine Aminotransferase (ALT/SGPT) 26 U/L (12-78) Alkaline Phosphatase 210 U/L (45-117) Ammonia < 10.0 umol/L (11-32) Total Protein 5.3 gm/dl (6.4-8.2) Albumin 2.1 gm/dl (3.4-5.0) Globulin 3.2 gm/dl (2.5-4.0) Albumin/Globulin Ratio 0.7 (0.9-2) Test 03/29/17 09:31 Vancomycin Level Trough 25.0 mcg/ml (SEE COMMENT) Micro Results Date/Time Source Procedure Growth Status 03/24/17 21:40 Blood Blood Culture - Final Coag Neg Staph Not Lugdunensis Complete 03/24/17 21:35 Blood Blood Culture - Final Coag Neg Staph Not Lugdunensis Complete 03/25/17 07:45 Urine , Clean Catch Urine Culture - Final NO GROWTH - LESS THAN 1,000 COLONIES/ML Complete 03/27/17 00:00 Peritoneal Fluid Acid Fast Stain - Final Resulted 03/27/17 00:00 Peritoneal Fluid Mycobacterial Culture Pending Resulted 03/27/17 00:00 Peritoneal Fluid Gram Stain - Final Resulted 03/27/17 00:00 Peritoneal Fluid Bacterial Culture - Preliminary NO GROWTH TO DATE. Resulted Risk Factors for Resistance * Hospitalization for 48 hours or more within the past 90 days (lumbar surgery in February 2017) * Current hospitalization > 5 days * Immunocompromised (chronic steroid therapy) Assessment & Plan Assessment 62 year old male receiving Vancomycin for treatment of staph bacteremia Day #04/02 of antimicrobial therapy Plan Vancomycin IV * Trough level of 25 mcg/mL is supratherapeutic. * Change to 1250 mg IV every 12 hours * Due to obesity (BMI >35), Vancomycin has accumulated over the last 48 hours * Patient received 1600 mg (scheduled for 1000) this morning after trough drawn * To estimate when to re-dose the patient at reduced dosing, I used current level and added estimated peak of the dose infused * I estimate the patient to come back to therapeutic range ~18 hours after dose infused this morning * Goal trough level for staph bacteremia : 15 to 20 mcg/mL * Trough level ordered for: 03/31/17 @1730 prior to the 1800 dose * Less than traditional dose selected due to likelihood of drug accumulation in obese patient/CKD Pharmacy will continue to follow and will adjust dose/frequency as necessary. Thank you.
[2017-03-29] MEDS ORDERED: BACITRACIN 50000 UNIT VIAL ONE ×2 (11:18→12:07)
[2017-03-29] MEDS ORDERED: BUPIVACAINE/EPINEPHRINE 0.5% MPF 1:200,000 30 ML VIAL ONE (11:18)
[2017-03-29] MEDS ORDERED: GENTAMICIN SULFATE 40 MG/ML 2 ML VIAL ONE (11:18)
[2017-03-29] MEDS ORDERED: VANCOMYCIN HCL 1000MG/20ML VIAL ONE (11:23)
[2017-03-29] MEDS ORDERED: ALBUT/IPRATROP 3MG/0.5MG NEB 3 ML VIAL ONE (11:28)
--- NOTE | 2017-03-29 11:43 | CARDIOLOGY CONSULTATION ---
DATE OF CONSULTATION: 03/29/2017 DATE OF CONSULTATION: 03/29/2017. REFERRING PHYSICIAN: Dr. Hu Nielsen. CHIEF COMPLAINT: Sepsis. HISTORY OF PRESENT ILLNESS: Mr. Orlando Santiago is a 62-year-old gentleman with a history of atrial septal defect fixed with a percutaneous device in 2013 at the [facility]. The patient has recently undergone surgery for herniated lumbar risk and apparently was feeling well at home when he later developed severe back pain and some mental status changes. This resulted in readmission to [facility] for evaluation. The patient was discovered to have evidence of staphylococcal infection, the source of which is unclear. The patient did undergo paracentesis for significant ascites which did not demonstrate evidence of SBT. He continues to have low back pain and is scheduled to go to the operative room today for explanation and possible debridement. The patient states that in general, he is an active individual who has some limitations related primarily to orthopedic and back disease. He has an element of dyspnea which is mild and does not perform significant exertional activity. He denies symptoms of chest discomfort. He has not had recent episodes of dizziness or lightheadedness and has not suffered a recent syncopal episode. He is not aware of any palpitations and does not describe symptoms of chest pain. It seems that during his evaluation for sarcoidosis at the [facility] he was noted to be hypoxic with exertion. This led to an evaluation demonstrating an atrial septal defect. This appears to have been closed percutaneously. His symptoms of exertional dyspnea and hypoxia resolved. PAST MEDICAL HISTORY: Significant for: 1. Sarcoidosis, which is believed to be pulmonary and extra pulmonary. The patient currently on chronic immunosuppression. 2. Obstructive sleep apnea. 3. Hyperlipidemia. 4. 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 5. History of gastrointestinal hemorrhage. 6. Diabetes mellitus type 2. 7. Hypertension. 8. Cataracts. 9. 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 PAST SURGICAL HISTORY: Includes the percutaneous repair of atrial septal defect, tonsillectomy, inguinal hernia repair on the left, knee surgery on the left, cataract surgery. SOCIAL HISTORY: Significant for alcohol abuse. Currently drinking wine on occasion. He was previously employed by [employer]. He denies tobacco use. FAMILY HISTORY: Not significant for premature coronary disease. CURRENT MEDICATIONS: Include insulin, metoprolol, vancomycin, prednisone, metronidazole. MEDICAL ALLERGIES: INCLUDE CELECOXIB AND PENICILLIN. REVIEW OF SYSTEMS: A complete 10-system review of systems was performed and the pertinent positives are noted in the history of present illness. The patient denied any recent loss in appetite or anorexia, no significant nausea or vomiting recently. He does have some edema in his lower extremities which is improving. He did have some increasing abdominal girth, but no current abdominal discomfort. PHYSICAL EXAMINATION: GENERAL: The patient was alert and oriented. His mood and affect appeared normal. He was no acute distress. He answered all questions appropriately. VITAL SIGNS: Include blood pressure 105/59 with pulse of 76. HEAD, EYES, EARS, NOSE, AND THROAT: Sclerae appear to be anicteric. Pupils equal and react to light and accommodation. Extraocular movements appear to be intact. Palpation of submandibular region did not reveal any significant lymphadenopathy. The carotids are palpable bilaterally. I do not appreciate any bruits on auscultation. There is no evidence of jugular venous distention, although the neck was somewhat redundant. There was no thyromegaly. LUNGS: Auscultation of the lung apices reveal them to be clear. He had good air movement. There were no rales, wheezes or rhonchi. CARDIAC EXAMINATION: Revealed him to be in a regular rhythm. He did have a crescendo systolic murmur heard best at the left second intercostal space. ABDOMEN: Soft and nontender but somewhat distention. Evaluation of lower extremities revealed 1+ pitting edema to the mid calf bilaterally. EXTREMITIES: Evaluation of both wrists revealed radial pulses that were equal in intensity. I did not appreciate any cyanosis or clubbing. The patient did have some bruising and ecchymosis throughout his body, but no notable rashes. LABORATORY STUDIES: Obtained today include a white cell count of 6.9, hemoglobin of 9.8, a platelet count of 74. Sodium is 135, potassium was 3.4, BUN was 26, creatinine was 1.3. INR was 1.4. The patient did undergo a transthoracic echocardiogram yesterday which revealed overall preserved left ventricular systolic function with mild left atrial dilatation and mild valvular aortic stenosis and mitral regurgitation. The patient had blood cultures obtained at the time of admission which revealed coagulated staph in 2 separate cultures. A back MRI was performed on 03/27/2017 and was felt to be of poor quality; however, there was some concern regarding the operative site in the lumbar area. Serial chest x-rays have been obtained since the patient's admission. There are intermittent reports of some mild pulmonary vascular congestion, otherwise unremarkable. ASSESSMENT AND PLAN: 1. Aortic stenosis. The patient has element of mild aortic stenosis, mild mitral regurgitation that is unchanged from prior studies. No overt symptoms or evidence of compromise based on this information. This can be followed longitudinally and likely would not require therapy. 2. Staphylococcus bacteremia. The source of the patient's infection is unclear, possibly related to his recent surgery. Given the known prosthetic material used for closure of his ASD and poor quality of the transthoracic echocardiogram it would be reasonable to proceed with a transesophagus echocardiogram 2 evaluated for possible endocarditis. This will be arranged for tomorrow. 3. Atrial septal defect: The patient had percutaneous repair which appears to be intact on his recent transthoracic echocardiogram. Symptoms associated with this abnormality have resolved with closure. 4. Sarcoidosis: The patient does not have reported cardiac sarcoid. He has occasional PVCs on EKGs, but no symptoms consistent with sustained ventricular arrhythmias. Overall, cardiac function continues to be normal.
--- NOTE | 2017-03-29 12:23 | [facility] Post Operative Brief Note ---
Immediate Operative Summary Operative Date March 29, 2017. Pre-Operative Diagnosis Status post lumbar decompression and fusion Post-Operative Diagnosis Status post lumbar decompression and fusion Procedure(s) Performed i and d Surgeon Dr. Todd Gray Strap Cutting Machine Operator Surgeon(s) Inna Peterson PA-C Estimated Blood Loss 50 Findings purulant fluid Specimens Microbiology L4-L5 Epidural Fluid
[2017-03-29] MEDS ORDERED: BISACODYL 10 MG SUPP PR PRN (12:30)
[2017-03-29] MEDS ORDERED: MAGNESIUM HYDROXIDE SUSP 30 ML UDC PO PRN (12:30)
[2017-03-29] MEDS ORDERED: SOD PHOSPHATE/SOD BIPHOSPHATE ENEMA 132 ML BTL PR PRN (12:30)
--- NOTE | 2017-03-29 13:42 | Anesthesiology Progress Note ---
Anesthesia Post Op Note Date & Time March 29, 2017 at 13:42 Vital Signs Pain Intensity: 0 Vital Signs Past 12 Hours Date Time Temp Pulse Resp B/P Pulse Ox O2 Delivery O2 Flow Rate FiO2 03/29/17 13:25 36.7 81 16 131/86 94 Nasal Cannula 4 03/29/17 13:20 81 16 100 Nasal Cannula 4.0 03/29/17 13:15 80 16 140/87 97 Nasal Cannula 4 03/29/17 13:05 83 16 127/78 96 Mask 10 03/29/17 12:55 85 16 119/87 96 Mask 10 03/29/17 12:45 36.2 74 16 112/77 96 Mask 10 03/29/17 10:31 76 105/59 03/29/17 08:15 37.4 76 19 115/68 95 1.0 03/29/17 08:15 Nasal Cannula 2.0 03/29/17 07:42 37.1 71 18 105/65 95 03/29/17 07:35 71 14 98 Nasal Cannula 2.0 03/29/17 07:03 37.1 72 18 108/55 96 2.0 03/29/17 06:51 37.1 71 18 101/65 96 2.0 03/29/17 06:32 37.2 70 18 106/66 96 2.0 03/29/17 06:20 36.9 71 18 102/60 96 2.0 03/29/17 05:48 36.8 69 18 104/60 96 2.0 03/29/17 05:21 37.2 71 18 111/66 97 2.0 03/29/17 05:04 37.0 71 18 104/62 96 2.0 03/29/17 04:47 37.0 70 18 101/64 98 2.0 03/29/17 04:45 37.0 64 18 101/64 98 2.0 03/29/17 04:20 37.0 72 18 102/57 97 2.0 03/29/17 03:51 36.8 69 18 109/62 97 2.0 03/29/17 03:21 36.7 77 18 112/67 94 2.0 03/29/17 03:09 36.8 71 18 103/66 97 2.0 03/29/17 02:50 36.8 70 18 92/54 97 Nasal Cannula 2.0 03/29/17 01:56 71 14 97 Nasal Cannula 2.0 Notes Mental Status: alert / awake / arousable, participated in evaluation Pt Amnestic to Procedure: Yes Nausea / Vomiting: adequately controlled Pain: adequately controlled Airway Patency, RR, SpO2: stable & adequate, see Notes BP & HR: stable & adequate Hydration State: stable & adequate Anesthetic Complications: no major complications apparent The patient was given a Duoneb both preoperatively and postoperatively due to wheezing. He is awake and at his baseline.
--- NOTE | 2017-03-29 13:56 | OPERATIVE REPORT ---
DATE OF OPERATION: 03/29/2017 PREOPERATIVE DIAGNOSIS: Epidural fluid collection. POSTOPERATIVE DIAGNOSIS: Same with evidence of epidural abscess. PROCEDURE PERFORMED: 1. I\T\D lumbar spine. 2. Evacuation of epidural abscess. 3. Placement of Stimulan beads gentamicin and vancomycin. SURGEON: Dr. Todd Gray. CARRIER DRIVER: Inna Barreto PA-C. Due to the complex nature of the procedure, the entire surgery was performed with the occupational therapist assistant of Inna Barreto PA-C. The construction management assistant, under direct supervision, was involved in the actual performance of all aspects of the surgical procedure including hemostasis, tissue retraction and incision, instrument management, patient positioning, and wound closure. ANESTHESIA: General. DISPOSITION: The patient was awakened and taken to PACU in stable condition. OPERATION AND FINDINGS: DESCRIPTION OF PROCEDURE: The patient was met with preoperatively, case discussed and all questions were addressed. At that point the patient was taken back to the operative suite and after undergoing successful general intubation by the department of anesthesia was placed in prone position on Mark table atop the Rustam frame. All bony prominences were well padded and the eyes were inspected to ensure there was no external pressure placed upon them. At this point, lumbar spine was prepped and draped in normal sterile fashion. Utilizing the previous incision site, sharp dissection with the assistance of Bovie cautery was performed down to and exposing the fascia. All sutures were then removed relieving a significant pocket of fluid in the epidural space. Cultures were taken. The fluid was cloudy and clearly consistent with infectious process. We then copiously irrigated the incision with antibiotic solution. After this was complete and we were down to very clean appearing tissues we placed Stimulan beads that were incorporated with both gentamicin and vancomycin in the posterolateral gutters. A 7 flat ANA drain was inserted. Incision was closed with 1-0 Vicryl in the fascia, 2-0 Vicryl subcutaneously, ricardo for final skin closure. Steri-Strips and sterile dressing placed. The patient was awakened and taken to PACU in stable condition. I attest to the content of the Intraoperative Record and any orders documented therein. Any exceptio ns are noted below.
[2017-03-29] MEDS: SODIUM CHLORIDE 0.9% 1000ML 1,000 ML IV SCH (14:04)
[2017-03-29] MEDS ORDERED: NURSING VERBAL MED ORDER ONE (15:15)
--- NOTE | 2017-03-29 16:40 | GASTROENTEROLOGY PROGRESS NOTE ---
DATE: 03/29/2017 DATE: 03/29/2017. SUBJECTIVE: The patient was found to have gram positive cocci with coag negative staph in his blood and underwent an epidural abscess drainage today by Dr. Gray. He was recently seen by GI services for his history of cirrhosis and elevated ammonia, which has resolved. The patient's cytology from his peritoneal fluid came back normal and it does not look infected. IMPRESSION: Patient has cirrhosis with noninfected ascites and normal ammonia level at this point. His deterioration appears to be related to an infected epidural abscess that was drained earlier today. At this point, we have no further recommendations and will sign off unless further input is needed. If so please contact us.
[2017-03-29] MEDS: DOCUSATE SODIUM/SENNA 50/8.6MG TAB PO SCH (21:00)
--- NOTE | 2017-03-29 23:21 | PROGRESS NOTE ---
DATE: 03/29/2017 A 62-year-old male, admitted with multiple problems includin. Metabolic encephalopathy secondary to his liver cirrhosis and sepsis. 2. Cirrhosis of the liver. 3. Staphylococcal sepsis. 4. Chronic thrombocytopenia. 5. Coagulopathy, secondary to his liver cirrhosis. 6. Sarcoidosis with extrapulmonary and pulmonary manifestations. 7. Status post surgery for a herniated L4-L5 disc. 8. Type 2 diabetes mellitus. 9. Chronic steroid therapy. 10. History of repair of an atrial septal defect. 11. Suspected diverticulitis. The patient was admitted. Cultures were done. His blood cultures did grow Staphylococcus. He has been on vancomycin. Also for his diverticulitis, he was initially started on ciprofloxacin and metronidazole. The patient was seen in GI consultation by Dr. Osborne. He was complaining of low back pain. Dr. Gray was consulted. An MRI was done. There was a pocket of fluid that was identified at the surgical site. In preparation of his surgery, the patient required transfusion of platelets and also because of his prolonged INR he was given 2 units of fresh frozen plasma. The patient was taken to the operating room today by Dr. Gray. His surgical site was explored. Dr. Gray identified a pocket of fluid with cloudy fluid suspected to be infectious. Overall, he is doing well at this point. He denied any headache. No dizziness. No chest pain. No shortness of breath at rest. No abdominal pain, no nausea, no vomiting. He did have a paracentesis with evacuation of 1400 mL. No problem with his bowel movements. He had multiple bowel movements after he was given lactulose. No urinary problem. He does have swelling in his legs. PHYSICAL EXAMINATION: GENERAL: Well-developed, in no distress. VITAL SIGNS: Blood pressure 105/68, pulse 70, respirations 18, temperature 37.1 and oxygen saturation 96% on 2 liters oxygen by nasal cannula. SKIN: Warm and dry. No rash. HEENT: He does have scleral icterus. NECK: Supple without adenopathy or thyromegaly. No JVD. HEART: Regular heart sounds with 2/6 systolic murmur. LUNGS: Decreased breath sounds. Upper airway wheezing. ABDOMEN: Soft and nontender. BACK: Surgical dressing in place with a drain. EXTREMITIES: Bilateral leg edema. No clubbing or cyanosis. TODAY'S LABORATORY TESTS: WBC count 6290, hemoglobin 9.8, hematocrit 27.8 and platelet count 74,000. This was after receiving 2 units of platelets during the night last night and yesterday afternoon. After the results became available this morning, prior to his surgery, he was given one additional unit of platelets. INR was 1.5. He did receive 2 units of fresh frozen plasma; after that his INR was 1.4. Sodium 135, potassium 3.4, chloride 100, CO2 27, BUN 26, creatinine 1.3, glucose 123, calcium 7.8, total bilirubin 7.1, AST 40, ALT 26, alkaline phosphatase 210, total protein 5.3, albumin 2.1 and globulin 3.2. ASSESSMENT: 1. Encephalopathy; both metabolic secondary to his sepsis and hepatic secondary to his liver cirrhosis. 2. Status post surgery for herniated L4-L5 disc. 3. Postoperative fluid collection, suspected to be infectious. 4. Liver cirrhosis. 5. Sarcoidosis. 6. Chronic steroid therapy. 7. History of repair of an atrial septal defect. 8. Type 2 diabetes mellitus. 9. Chronic steroid therapy. PLAN: 1. As noted, he underwent surgery today; a pocket of fluid was evacuated and culture was done. 2. Continue his IV antibiotics. 3. He is scheduled for a CORDELL tomorrow. 4. I will wait for the results of the CORDELL. 5. As far as his antibiotics, I should be able to discontinue his Cipro and metronidazole in another 24 hours. 6. As far as treatment of his Staphylococcal sepsis and the possible infectious collection at the site of his surgery in his lumbar area, I will wait to see what the CORDELL shows and decide on further treatment. 7. I will ask for an infectious disease consultation. The question that we need to answer is continuation of his vancomycin and the length of treatment. If he needs long-term treatment, then we will need to decide whether we are going to stay with the vancomycin or change to daptomycin, so the antibiotic could be administered only once a day as an outpatient.
[2017-03-30] VITALS (24 sets, daily range): BP systolic 100–125; BP diastolic 53–76; PULSE 62–88; TEMP 36.6–37.3; O2SAT 91–99; Ht 170.2 cm; Wt 95.9 kg
[2017-03-30] MEDS: CIPROFLOXACIN / D5W 400 MG in PREMIXED IN D5W 200 ML IV SCH ×2 (00:32→12:33)
[2017-03-30] MEDS: LEVALBUTEROL 1.25MG/3ML NEB INH SCH ×4 (02:02→19:47)
[2017-03-30] MEDS: SODIUM CHLORIDE 0.9% 1000ML 1,000 ML IV SCH (03:18)
[2017-03-30] MEDS: VANCOMYCIN INJ 1,250 MG in SODIUM CHLORIDE 0.9% 250ML 250 ML IV SCH ×2 (05:39→18:25)
[2017-03-30] MEDS: METRONIDAZOLE / NSS 500 MG in PREMIXED NSS 100 ML IV SCH ×3 (06:34→23:15)
[2017-03-30 06:49] LABS: BASO % 0.7 %; BASO ABS # 0.05 K/uL (0-0.2); COMPLETE YES; EOS % 4.2 %; HEMATOCRIT 29.7 % (42-52); IG% 1.5 %; LYMPH % 10.1 %; LYMPH ABS # 0.75 K/uL (1.2-3.4); MEAN CELL VOLUME 94.3 fL (80-100); MEAN CORPUSCULAR HEMOGLOBIN 33.3 pg (25-34); MEAN CORPUSCULAR HGB CONC 35.4 g/dl (32-36); MEAN PLATELET VOLUME 11.8 fL (7.4-10.4); MONO % 16.4 %; NEUT % 67.1 %; PLATELET COUNT 117 K/uL (130-400); RED BLOOD COUNT 3.15 M/uL (4.7-6.1)
[2017-03-30 06:53] LABS: INR 1.6 (0.9-1.1); PROTHROMBIN TIME (PATIENT) 17.5 SECONDS (9.0-12.0)
[2017-03-30] MEDS ORDERED: NURSING VERBAL MED ORDER ONE ×2 (07:00→12:45)
[2017-03-30 07:30] LABS: BUN/CREATININE RATIO 16.7 (10-20); CALCIUM 8.2 mg/dl (8.5-10.1); CREATININE 1.5 mg/dl (0.60-1.40); POTASSIUM 3.7 mmol/L (3.5-5.1)
--- NOTE | 2017-03-30 08:22 | PROGRESS NOTE ---
DATE: 03/30/2017 Postop day 1. Back symptoms are markedly improved. Leg pain improved. Vital signs are stable. T-max 37.3. ANA drained 50 mL over the last shift. Cultures taken intraoperatively pending. Blood cultures are demonstrating coag negative staph. On exam, he is in chair at bedside. Has good strength to testing, appears relatively comfortable. ASSESSMENT: Status post incision and drainage lumbar spine with placement of antibiotic beads. PLAN: At this time, we will encourage him to attempt at walking as tolerated. He understands we may need to maintain the drain for a few more days. He most likely will require IV antibiotics for a minimum of 6 weeks.
--- NOTE | 2017-03-30 08:33 | Anesthesiology Progress Note ---
Anesthesia Post Op Note Date & Time March 30, 2017 at 08:32 Vital Signs Pain Intensity: 3.0 Vital Signs Past 12 Hours Date Time Temp Pulse Resp B/P Pulse Ox O2 Delivery O2 Flow Rate FiO2 03/30/17 08:31 99 Nasal Cannula 2.0 03/30/17 07:36 69 16 98 Nasal Cannula 2.0 03/30/17 07:33 37.3 76 20 109/68 99 Nasal Cannula 2.0 03/30/17 03:49 36.6 69 18 125/76 98 Nasal Cannula 2.0 03/30/17 02:02 71 16 91 Nasal Cannula 2.0 03/30/17 01:46 Nasal Cannula 2.0 03/29/17 22:56 37.1 77 18 116/57 96 Nasal Cannula 2.0 03/29/17 21:23 76 103/54 Notes Mental Status: alert / awake / arousable, participated in evaluation Anesthetic Complications: no major complications apparent
[2017-03-30] MEDS: METOPROLOL TARTRATE 50 MG TAB PO SCH ×2 (08:47→21:13)
[2017-03-30] MEDS ORDERED: BENZOCAIN/TETRACA/BUTAM SPRAY 200 APPLN/20 GM SPRY ONE (10:51)
[2017-03-30] MEDS ORDERED: MIDAZOLAM HCL 1 MG/ML 2ML VIAL ONE (10:51)
[2017-03-30] MEDS ORDERED: FENTANYL CITRATE INJ 50 MCG/1 ML 2 ML VIAL ONE (10:51)
[2017-03-30] MEDS ORDERED: CANNULA ONE ×2 (10:51)
--- NOTE | 2017-03-30 11:41 | Procedure Note ---
Pre-Mod Sedation Assessment General Date of Moderate Sedation: March 30, 2017. Vital Signs: Vital Signs Past 12 Hours Date Time Temp Pulse Resp B/P Pulse Ox O2 Delivery O2 Flow Rate FiO2 03/30/17 10:55 77 18 119/61 97 Nasal Cannula 3 03/30/17 08:45 69 109/69 03/30/17 08:31 99 Nasal Cannula 2.0 03/30/17 07:36 69 16 98 Nasal Cannula 2.0 03/30/17 07:35 Nasal Cannula 2.0 03/30/17 07:33 37.3 76 20 109/68 99 Nasal Cannula 2.0 03/30/17 03:49 36.6 69 18 125/76 98 Nasal Cannula 2.0 03/30/17 02:02 71 16 91 Nasal Cannula 2.0 03/30/17 01:46 Nasal Cannula 2.0 Review Cardiovascular: regular rate, rhythm Airway Class: III Pre-Sedation Airway Assessment Oral Cavity: WNL Able to Visualize Vocal Cords: No Short Thick Neck: Yes Hx of Sleep Apnea: Yes Smoking Status: Never Smoker Mallampati Classification: Class III ASA Classification: Class III Procedure Planning Contraindications-for Mod Sed: None Yes Notes The planned sedation has been discussed with the patient and consent obtained. I have identified the patient, determined the appropriateness of sedation and have assessed the patient immediately prior to the procedure. All medicine(s) and interventions are by my order.
[2017-03-30] MEDS ORDERED: INSULIN ASPART 100 UNITS/ML 3 ML PEN SC SCH (12:00)
--- NOTE | 2017-03-30 12:37 | Medical Consult ---
Consultation Date of Consultation: March 30, 2017. Attending Physician: Hu Ackerman M.D. Reason for Consultation: Sepsis, status post lumbar laminectomy, ASD repair History of Present Illness 62-year-old male with multiple medical comorbidities including sarcoidosis on chronic steroid therapy, type 2 diabetes mellitus, cirrhosis of the liver with ascites, and chronic thrombocytopenia, who was hospitalized earlier this month for disc herniation, and underwent repaired of surgery. He initially did well postop, but several days ago noted worsening back pain radiating into his right buttock and was found to have progressively worsening mental status changes ultimately requiring him being brought to the hospital. He has been found to have positive blood cultures for coagulase negative Staph, and had MRI scan, read by me, which showed the presence of an epidural collection. He has now undergone exploration by Dr. Gray with finding of probable abscess formation. Operative cultures and Gram stain are pending. Patient currently on IV vancomycin therapy. Patient also with history of prior ASD repair 2014. CORDELL is pending. Has been afebrile with improvement in mental status since admitted. Back pain improved since surgery. Past Medical/Surgical History Medical Problems: (1) Fall in home Status: Acute (2) Fever Status: Acute (3) Hypoxia Status: Acute (4) Immunocompromised Status: Acute (5) Left leg cellulitis Status: Acute (6) Lumbar disc herniation with radiculopathy Status: Acute (7) Orthostasis Status: Acute (8) Tenosynovitis, de Quervain Status: Acute (9) Vomiting Status: Acute Medical Problems: (1) Abscess in epidural space of lumbar spine (2) ACUTE RESP.FAIL.,SARCOIDOSIS (3) Anemia (4) Asthma (5) Diabetic autonomic neuropathy (6) GERD (gastroesophageal reflux disease) (7) HEPATIC ENCEPHALOPATHY. SARCOIDOSIS. DM2,POST LUMBAR DISC SURGERY (8) HERNIATED L4-L5 DISC (9) Hyperlipidemia (10) Hypertension (11) Kidney stone (12) Lumbar stenosis with neurogenic claudication (13) Obesity (14) Sarcoidosis (15) Septal defect (16) SEVERE CELLULITIS L LEG,SEPSIS SYNDROME (17) Sleep apnea (18) Thrombocytopenia Family History Patient reports no known family medical history. Social History Smoking Status: Never Smoker Drug Use: none Marital Status: Housing Status: lives with family Occupation Status: retired Allergies Coded Allergies: Celecoxib (Verified Allergy, Intermediate, HIVES, 03/24/17) Penicillins (Verified Allergy, Intermediate, HIVES, 03/24/17) Current Inpatient Medications Current Inpatient Medications Medications (Trade) Dose Ordered Sig/Nathalia Route Start Time Stop Time Status Last Admin Dose Admin Prednisone 10 mg 10 mg QAM PO 03/25/17 09:00 04/24/17 08:59 03/30/17 08:47 10 MG Ciprofloxacin/ Dextrose 400 mg/ Prmx 200 ml @ 100 mls/hr Q12H IV 03/25/17 00:00 04/04/17 00:00 03/30/17 00:32 100 MLS/HR Metronidazole/Prmx (Flagyl / Nss/ Premixed Nss) 100 ml @ 100 mls/hr Q8H IV 03/24/17 23:00 04/03/17 22:59 03/30/17 06:34 100 MLS/HR Glucose (Glucose 40% Gel) 15-30 GRAMS 15 GRAMS... UD PRN PO 03/24/17 22:45 04/23/17 22:44 Glucose (Glucose Chew Tab) 4-8 Tablets 4 Tabl... UD PRN PO 03/24/17 22:45 04/23/17 22:44 Dextrose (Dextrose 50% 50ML Syringe) 25-50ML OF 50% DW IV FOR... UD PRN IV 03/24/17 22:45 04/23/17 22:44 Glucagon 1 mg 1 mg UD PRN SQ 03/24/17 22:45 04/23/17 22:44 Ondansetron HCl/ Dextrose (Zofran Inj/D5 50ml) 54 ml @ 200 mls/hr Q4H PRN IV 03/25/17 05:30 04/24/17 05:29 03/27/17 17:02 200 MLS/HR Acetaminophen (Tylenol Tab) 500 mg Q4H PRN PO 03/25/17 07:45 04/24/17 07:44 03/28/17 14:51 500 MG Vancomycin HCl (Consult) 1 ea UD PRN N/A 03/25/17 13:45 04/24/17 13:44 Hydromorphone HCl (Dilaudid Inj) 0.5 mg Q4H PRN IV 03/26/17 02:30 04/09/17 02:29 03/29/17 17:32 0.5 MG Levalbuterol (Xopenex 1.25MG/ 3ML Neb) 1.25 mg Q6R INH 03/27/17 09:00 04/26/17 08:59 03/30/17 07:36 1.25 MG Sodium Chloride ([place] Nasal [place]) 1 sprays PRN PRN NA 03/28/17 13:00 04/27/17 12:59 03/28/17 13:07 1 SPRAYS Metoprolol Tartrate 50 mg 50 mg BID PO 03/28/17 21:00 04/27/17 20:59 03/30/17 08:47 50 MG Vancomycin HCl/ Sodium Chloride (Vancomycin Inj/ Nss 250ml) 275 ml @ 125 mls/hr Q12H IV 03/30/17 06:00 04/07/17 23:59 03/30/17 05:39 125 MLS/HR Polyethylene (Miralax Powder Packet) 17 gm Q6 PO 03/31/17 06:00 04/30/17 05:59 Bisacodyl (Dulcolax Supp) 10 mg DAILY PRN NE 03/29/17 12:30 04/28/17 12:29 Magnesium Hydroxide (Milk Of Magnesia Susp) 30 ml DAILY PRN PO 03/29/17 12:30 04/28/17 12:29 Naloxone HCl (Narcan Inj) 0.1 mg Q5M PRN IV 03/29/17 12:30 04/28/17 12:29 Senna/Docusate Sodium (Senokot S Tab) 2 tab HS PO 03/29/17 21:00 04/28/17 20:59 Sodium Biphosphate/ Sodium Phosphate (Fleet Enema) 132 ml ONE PRN NE 03/29/17 12:30 04/28/17 12:29 Insulin Aspart (novoLOG ASPART) SLIDING SCALE G... Q6 SC 03/30/17 12:00 04/29/17 11:59 Review of Systems Constitutional: + weakness, No fever Eyes: No problem reported ENT: No problem reported Respiratory: No problem reported Cardiovascular: No problem reported Musculoskeletal: + problem reported (See HPI) Genitourinary - Male: No problem reported Neurologic: + problem reported (See HPI) Psychiatric: No problem reported Endocrine: No problem reported Hematologic / Lymphatic: No problem reported Integumentary: No problem reported Allergic / Immunologic: No problem reported Physical Exam Date Time Temp Pulse Resp B/P Pulse Ox O2 Delivery O2 Flow Rate FiO2 03/30/17 12:28 37.0 67 16 115/67 97 Nasal Cannula 2.0 03/30/17 12:05 71 14 103/51 96 Nasal Cannula 3 03/30/17 11:54 73 18 111/53 95 Nasal Cannula 3 03/30/17 11:37 70 16 108/56 95 Nasal Cannula 3 03/30/17 11:22 73 17 117/65 95 Nasal Cannula 3 03/30/17 11:22 73 17 117/65 95 Nasal Cannula 3 03/30/17 10:55 77 18 119/61 97 Nasal Cannula 3 03/30/17 08:45 69 109/69 03/30/17 08:31 99 Nasal Cannula 2.0 03/30/17 07:36 69 16 98 Nasal Cannula 2.0 03/30/17 07:35 Nasal Cannula 2.0 03/30/17 07:33 37.3 76 20 109/68 99 Nasal Cannula 2.0 03/30/17 03:49 36.6 69 18 125/76 98 Nasal Cannula 2.0 03/30/17 02:02 71 16 91 Nasal Cannula 2.0 03/30/17 01:46 Nasal Cannula 2.0 03/29/17 22:56 37.1 77 18 116/57 96 Nasal Cannula 2.0 03/29/17 21:23 76 103/54 03/29/17 19:50 37.0 79 18 115/73 95 Nasal Cannula 2.0 03/29/17 19:39 86 16 93 Nasal Cannula 2.0 03/29/17 17:10 36.9 70 18 114/75 93 Nasal Cannula 2.0 03/29/17 16:00 37.1 70 18 105/68 96 Nasal Cannula 2.0 03/29/17 15:30 Nasal Cannula 2.0 03/29/17 15:00 36.7 69 16 106/63 94 Nasal Cannula 2.0 03/29/17 14:36 76 16 95 Nasal Cannula 2.0 03/29/17 14:30 37.0 75 19 112/69 96 Nasal Cannula 2.0 03/29/17 14:00 93 Nasal Cannula 2.0 03/29/17 14:00 Nasal Cannula 2.0 03/29/17 13:25 36.7 81 16 131/86 94 Nasal Cannula 4 03/29/17 13:20 81 16 100 Nasal Cannula 4.0 03/29/17 13:15 80 16 140/87 97 Nasal Cannula 4 03/29/17 13:05 83 16 127/78 96 Mask 10 03/29/17 12:55 85 16 119/87 96 Mask 10 03/29/17 12:45 36.2 74 16 112/77 96 Mask 10 General Appearance: WD/WN, no apparent distress Head: normocephalic, atraumatic Eyes: normal inspection, EOMI, sclerae normal ENT: normal ENT inspection, pharynx normal Neck: supple, no adenopathy, thyroid normal, trachea midline Respiratory/Chest: chest non-tender, lungs clear, normal breath sounds, no respiratory distress Cardiovascular: regular rate, rhythm, no gallop, + systolic murmur Abdomen/GI: normal bowel sounds, soft, no organomegaly, + distended, + pertinent finding (Ascites present) Back: normal inspection, no CVA tenderness Extremities/Musculoskelatal: no calf tenderness, normal capillary refill Neurologic/Psych: alert, + disoriented Skin: normal color, warm/dry, no rash Lymphatic: no adenopathy Laboratory Results -------- RUN DATE: 03/27/17 [facility] LAB PAGE 1 RUN TIME: 1446 Specimen Inquiry PATIENT: ALEXIS FENG LOC: JANAE U # : [id number] AGE/SX: 62/M ROOM: [facility] REG : 03/24/[address]: Hu Ackerman M. : 1955 BED: 2 DIS : STATUS: ADM IN TLOC: SPEC #: [id number] ANGELIA: 03/24/17 STATUS: EDUARDO REQ #: [id number] RECD: 03/24/[address]: uH Ackerman M.D. SOURCE: BLOOD ENTR: 03/24/17-2009 [facility] [address]: Abram Mohamud MD [facility]: ORDERED: BLOOD CULTURE Procedure Result Verified Site BLD CULT Final 03/27/17-1446 Organism 1 COAG NEG STAPH NOT LUGDUNENSIS SENS SENSITIVITY TO FOLLOW Phoned Positive Blood Culture Gram Stain Report to ELIA PRADO on 03/25/17 At 1303 By LEA. Results were verbalized back to LEA. 1. COAG NEG STAPH NOT LUGDUNENSIS Target Route Dose RX AB Cost M.I.C. IQ ------ ----- ------ -- ------ -------- - ------ DAVID/SULFA R > * OXACILLIN S <=0.25 VANCOMYCIN S 1 ERYTHROMYCIN R >4 TETRACYCLINE R >8 CLINDAMYCIN R >4 DAPTOMYCIN S <=0.5 S = SENSITIVE I = INTERMEDIATE R = RESISTANT Last 24 Hours Test 03/29/17 12:50 03/29/17 14:11 03/29/17 17:16 03/29/17 20:58 Bedside Glucose 79 mg/dl 86 mg/dl 111 mg/dl 158 mg/dl Test 03/29/17 22:57 03/30/17 06:00 03/30/17 07:44 03/30/17 10:24 Bedside Glucose 146 mg/dl 89 mg/dl White Blood Count 7.40 K/uL Red Blood Count 3.15 M/uL Hemoglobin 10.5 g/dL Hematocrit 29.7 % Mean Corpuscular Volume 94.3 fL Mean Corpuscular Hemoglobin 33.3 pg Mean Corpuscular Hemoglobin Concent 35.4 g/dl Platelet Count 117 K/uL Mean Platelet Volume 11.8 fL Neutrophils (%) (Auto) 67.1 % Lymphocytes (%) (Auto) 10.1 % Monocytes (%) (Auto) 16.4 % Eosinophils (%) (Auto) 4.2 % Basophils (%) (Auto) 0.7 % Neutrophils # (Auto) 4.97 K/uL Lymphocytes # (Auto) 0.75 K/uL Monocytes # (Auto) 1.21 K/uL Eosinophils # (Auto) 0.31 K/uL Basophils # (Auto) 0.05 K/uL RDW Standard Deviation 55.4 fL RDW Coefficient of Variation 16.2 % Immature Granulocyte % (Auto) 1.5 % Immature Granulocyte # (Auto) 0.11 K/uL Prothrombin Time 17.5 SECONDS Prothromb Time International Ratio 1.6 Sodium Level 134 mmol/L Potassium Level 3.7 mmol/L Chloride Level 100 mmol/L Carbon Dioxide Level 28 mmol/L Anion Gap 6.0 mmol/L Blood Urea Nitrogen 25 mg/dl Creatinine 1.50 mg/dl Est Creatinine Clear Calc Drug Dose 60.8 ml/min Estimated GFR () 56.2 Estimated GFR (Non- 48.5 BUN/Creatinine Ratio 16.7 Random Glucose 111 mg/dl Calcium Level 8.2 mg/dl Total Bilirubin 8.8 mg/dl Direct Bilirubin 6.7 mg/dl Aspartate Amino Transf (AST/SGOT) 49 U/L Alanine Aminotransferase (ALT/SGPT) 28 U/L Alkaline Phosphatase 236 U/L Total Protein 6.0 gm/dl Albumin 2.3 gm/dl Ammonia < 10.0 umol/L Assessment & Plan 62-year-old male with multiple medical comorbidities including sarcoidosis and severe hepatic disease, now with coagulase negative staphylococcal sepsis with probable epidural abscess following lumbar laminectomy. Patient now status post surgical debridement. I feel the patient will require prolonged i.e. 6-8 weeks IV antibiotic therapy. Given penicillin allergy, daptomycin would provide easiest therapy once patient leaves the hospital. I would obtain echocardiogram to see if any significant valvular findings. I will discuss with all involved and we will continue to follow patient.
--- NOTE | 2017-03-30 13:27 | TEE ---
*NOTICE TO RECEIVING CONSTITUTION PARTY AGENCY This information is strictly Confidential and protected under [place] law. [place] law prohibits you from making any further disclosure of this information unless further disclosure is expressly permitted by the written consent of the person to whom it pertains or is authorized by law. A general authorization for the release of medical or other information is not sufficient for this purpose. Hospital accepts no responsibility if the information is made available to any other person, INCLUDING THE PATIENT. Interpretation Summary * Name: ALEXIS FENG JR Study Date: 03/30/2017 11:13 AM BP: 119/61 mmHg * Patient Location: C.MSN\S\N375\S\2 HR: 73 * : 1955 (M/d/yyyy) Gender: Male Height: 67 in * Age: 62 yrs Ethnicity: [place] Weight: 247 lb * Ordering Physician: Steven Lopez * Referring Physician: Self, Referred * Performed By: Brenda Delgado RCS * * Reason For Study: ENDOCARDITIS * BSA: 2.2 m2 * -- Conclusions -- * There is mild mitral regurgitation. * No evidence of endocarditis. * Intact ASD occlusion device. Procedure Details * CORDELL Probe #3 was administered during procedure. TIME OUT: 1120 PROBE IN: 1122 PROBE OUT: 1135 * The study was performed in Cardiopulmonary Department. * Time out was conducted by the physician, nurse, and soldering technician with positive identification of patient and procedure. * Informed consent for Transesophageal Echocardiogram was obtained prior to the procedure. * An intravenous line was placed. A topical anesthetic agent was used for oropharangeal anesthesia. A bite block was inserted. * The patient's vital signs, including blood pressure, heart rate, pulse oximetry and cardiac rhythm were monitored throughout the procedure . * Fentanyl 25 mcg was administered for procedural sedation. * Midazolam 1 mg administered for sedation. * The posterior oropharynx was anesthetized using a topical anesthetic spray. A bite guard was inserted. * The usual views were obtained; basal, mid-esophageal, transgastric and aortic views. * The patient tolerated the procedure well without evidence of orophangeal or esophageal trauma. * A 2D transesophageal echocardiogram with spectral and color flow Doppler was performed. * Contrast injection with agitated saline was performed. * A 2D transesophageal echocardiogram with Doppler and color flow Doppler was performed. Left Ventricle * Left ventricular systolic function is normal. * The left ventricular wall motion is normal at rest. Atria * ASD occlusion device is well positioned. No flow across the septum is seen. Mitral Valve * The mitral valve anatomy is normal. * There is mild mitral regurgitation. Aortic Valve * The aortic valve is normal in structure and function. Pericardium * There is no pericardial effusion.
[2017-03-30] MEDS: HYDROmorphone INJ 1 MG/ML SYR IV PRN (17:32)
[2017-03-30] MEDS: INSULIN ASPART 100 UNITS/ML 3 ML PEN SC SCH ×2 (18:28→21:00)
[2017-03-30] MEDS: DOCUSATE SODIUM/SENNA 50/8.6MG TAB PO SCH (21:13)
--- NOTE | 2017-03-30 23:51 | PROGRESS NOTE ---
DATE: 03/30/2017 A 62-year-old male admitted with encephalopathy related to his cirrhosis and also sepsis. He has staphylococcus sepsis. He had prior surgery for herniated L4-L5 disc. His medical problems also include liver cirrhosis, type 2 diabetes mellitus, sarcoidosis, chronic steroid therapy, and recently diagnosed liver cirrhosis with ascites. He also has chronic thrombocytopenia. The patient was admitted. Cultures were done. Staphylococcus was detected in his blood cultures. He also had suspected left-sided diverticulitis. Initially, he was started on ciprofloxacin and metronidazole. When the first blood culture came back positive for gram-positive cocci, vancomycin was added. The patient also has a history of ASD and had a repair with a patch in 2014. The patient was taken to the operating room and he had reexploration of his incision. He had a pocket of fluid which was suspected to be infectious based on the appearance of the cloudy fluid. The culture this afternoon from the fluid was reported to be growing staphylococcus. The patient has been seen in consultation by Dr. Gray in spinal surgery, Dr. Osborne in gastroenterology, and today he was also seen in infectious disease consultation by Dr. Banks. The patient has been confused. He is telling stories of things that happened while he was working many years ago. He had to be reoriented, but he was not aggressive and he was not violent. He denied any headache. No dizziness. No chest pain. No shortness of breath. No abdominal pain. His abdominal girth has increased in size. He does have ascites. He does have back pain related to his surgery. He does have swelling in both legs. Also swelling in his scrotum and penis. The patient underwent a CORDELL today and it looked normal. There is no evidence of any vegetations. PHYSICAL EXAMINATION: GENERAL: Well developed, in no distress. VITAL SIGNS: Blood pressure 112/71, pulse 69, respirations 18, temperature 36.6, oxygen saturation 96% on 2 liter oxygen by nasal cannula. SKIN: Warm and dry. Not jaundiced. HEENT: Conjunctival icterus noted. Oxygen cannula in place. NECK: No JVD. No adenopathy. HEART: Regular heart sounds. 2/6 systolic murmur. LUNGS: Clear. ABDOMEN: Distended. Evidence of ascites. BACK: Surgical scar and drain in place. EXTREMITIES: Bilateral leg edema. TODAY'S LABORATORY TESTS: WBC count 7400, hemoglobin 10.5, hematocrit 29.7, platelet count 117,000. Sodium 134, potassium 3.7, chloride 100, CO2 of 28, BUN 25, creatinine 1.5, glucose 111, calcium 8.2. Total bilirubin 8.8, direct bilirubin 6.5, AST 49, ALT 28, alkaline phosphatase 236, total protein 6.0, albumin 2.3. ASSESSMENT: 1. Staphylococcus sepsis. 2. Hepatic encephalopathy. 3. Postsurgical wound infection with evidence of staphylococcus lumbar area. 4. Mental status changes with confusion, most likely related to his hepatic disease. 5. Type 2 diabetes mellitus. 6. Chronic steroid therapy. 7. Sarcoidosis. 8. History of atrial septal defect. 9. Large ascites. 10. Chronic thrombocytopenia. PLAN: 1. His mental status is being monitored. Most likely, his confusion is related to his hepatic problem. His ammonia level was checked today and it was normal. 2. Continue his IV antibiotics. 3. As noted, he was seen in infectious disease consultation by Dr. Banks. The recommendation is for the patient to need antibiotic for 6-8 weeks. 4. A therapeutic paracentesis was ordered. 5. Tomorrow I should be able to discontinue his ciprofloxacin and metronidazole. 6. We are working on his discharge planning. Possibly admission to [facility]. Subsequently, we will be arranging for his IV antibiotics. Currently, he is on vancomycin, but there is a possibility that we can get him changed to daptomycin so that administration of antibiotic will be only once a day. We will ask Dr. Banks to finalize his treatment.
[2017-03-31] VITALS (15 sets, daily range): BP systolic 96–123; BP diastolic 59–75; PULSE 55–89; TEMP 36.4–37.2; O2SAT 95–100
[2017-03-31] MEDS: CIPROFLOXACIN / D5W 400 MG in PREMIXED IN D5W 200 ML IV SCH (00:09)
[2017-03-31] MEDS: LEVALBUTEROL 1.25MG/3ML NEB INH SCH ×4 (02:05→19:44)
[2017-03-31] MEDS ORDERED: NURSING VERBAL MED ORDER ONE (05:00)
[2017-03-31] MEDS: VANCOMYCIN INJ 1,250 MG in SODIUM CHLORIDE 0.9% 250ML 250 ML IV SCH ×2 (05:59→18:59)
[2017-03-31] MEDS ORDERED: FUROSEMIDE INJ 40 MG in SYRINGE 0 ML IV ONE ×2 (06:00→18:30)
[2017-03-31] MEDS ORDERED: POLYETHYLENE (MIRALAX) 17 GM PACK PO SCH (06:00)
[2017-03-31] MEDS: METRONIDAZOLE / NSS 500 MG in PREMIXED NSS 100 ML IV SCH (06:32)
[2017-03-31 06:33] LABS: BASO % 1.7 %; COMPLETE YES; EOS % 4.7 %; HEMATOCRIT 30.6 % (42-52); IG% 2.3 %; LYMPH % 20.2 %; LYMPH ABS # 1.21 K/uL (1.2-3.4); MEAN CELL VOLUME 92.7 fL (80-100); MEAN CORPUSCULAR HEMOGLOBIN 31.8 pg (25-34); MEAN CORPUSCULAR HGB CONC 34.3 g/dl (32-36); MEAN PLATELET VOLUME 11.3 fL (7.4-10.4); MONO % 8.7 %; NEUT % 62.4 %; PLATELET COUNT 123 K/uL (130-400)
[2017-03-31 06:41] LABS: INR 1.7 (0.9-1.1); PARTIAL THROMBOPLASTIN RATIO 1.4; PROTHROMBIN TIME (PATIENT) 18.8 SECONDS (9.0-12.0)
[2017-03-31 07:11] LABS: BUN/CREATININE RATIO 16.5 (10-20); CALCIUM 8.4 mg/dl (8.5-10.1); CREATININE 1.4 mg/dl (0.60-1.40); POTASSIUM 3.5 mmol/L (3.5-5.1)
[2017-03-31 07:12] LABS: ALB/GLOB RATIO 0.6 (0.9-2)
[2017-03-31] MEDS: METOPROLOL TARTRATE 50 MG TAB PO SCH ×2 (08:33→21:17)
[2017-03-31] MEDS: HYDROmorphone INJ 1 MG/ML SYR IV PRN ×2 (08:39→13:45)
[2017-03-31] MEDS: INSULIN ASPART 100 UNITS/ML 3 ML PEN SC SCH ×4 (08:42→21:26)
--- NOTE | 2017-03-31 09:30 | DIAGNOSTIC IMAGING REPORT ---
PARACENTESIS UNDER ULTRASOUND GUIDANCE CLINICAL HISTORY: ASCITES, LIVER CIRRHOSIS COMPARISON STUDY: No previous studies for comparison. FINDINGS: The risks, benefits, and alternatives to the procedure were discussed with the patient. Written informed consent was obtained. Following real-time ultrasound localization, the skin was prepped and draped. Following local anesthesia with Xylocaine, the sheath paracentesis needle was inserted and approximately 3 liters of straw-colored fluid was removed by vacuum suction. A right lower quadrant approach was utilized. The patient tolerated the procedure well and left the department in satisfactory condition. IMPRESSION: Successful ultrasound-guided paracentesis with removal of approximately 3 liters of ascitic fluid. Electronically signed by: Ian Jones M.D. 03/31/2017 9:29 AM Dictated Date/Time: 03/31/2017 9:28 AM
[2017-03-31] MEDS: SPIRONOLACTONE 25 MG TAB PO SCH (10:58)
--- NOTE | 2017-03-31 16:12 | PROGRESS NOTE ---
DATE: 03/31/2017 DATE: 03/31/2017. SUBJECTIVE: Pain is improved regarding his lumbar spine. He has no leg pain. Vital signs stable. T-max 37.2. ANA drained 150 mL today. Hematocrit 30.6. His cultures are positive for staph. OBJECTIVE: On exam, he is in chair at the bedside, has reasonable strength to testing and does appear comfortable. ASSESSMENT: Status post lumbar decompression and fusion. PLAN: At this time, will continue with activity as tolerated and hopefully be able to discontinue the drain in the next few days.
[2017-03-31] MEDS ORDERED: VANCOMYCIN TROUGH SCH (17:30)
--- NOTE | 2017-03-31 20:31 | PROGRESS NOTE ---
DATE: 03/31/2017 SUBJECTIVE: A 62-year-old male with multiple problems includin. Staphylococcus sepsis. 2. Liver cirrhosis. 3. Metabolic encephalopathy. 4. History of surgery for L4-L5 herniated disc. 5. Postoperative fluid collection infected with staph. 6. Ascites. 7. Thrombocytopenia. 8. Coagulopathy. 9. Sarcoidosis. 10. History of ASD with patch repair. The patient has had confusion yesterday throughout the day, but this morning his condition started to improve. He was more awake and alert and appropriate. He denied any headache or dizziness. No chest pain, no shortness of breath. No abdominal pain, no nausea, no vomiting. No problem with his bowel movements. No problem urinating. Today, he had a paracentesis done and 3 liters of fluid removed. Today also a PICC line was placed. PHYSICAL EXAMINATION: GENERAL: Well-developed in no distress. VITAL SIGNS: Blood pressure 106/65, pulse 85, respirations 18, temperature 37, oxygen saturation 97% on 2 liter oxygen by nasal cannula. SKIN: Warm and dry. No rash. HEENT: Oxygen cannula in place. He is jaundiced. NECK: Supple. No adenopathy, no thyromegaly. HEART: Regular heart sounds with 2/6 systolic murmur. LUNGS: Clear. ABDOMEN: Soft. Much less distended. BACK: Tenderness lumbar area from his surgery. EXTREMITIES: Bilateral leg edema. No clubbing, no cyanosis. GENITALIA: He does have a small area of slough skin over the scrotum and he does have evidence of scrotal and penile edema. TODAY'S LABORATORY TESTS: WBC count 6000, hemoglobin 10.5, hematocrit 30.6, platelet count 123,000. Sodium 139, potassium 3.5, chloride 105, CO2 27, BUN 23, creatinine 1.4, glucose 111, calcium 8.4, AST 44, ALT 22, alkaline phosphatase 215, total protein 5.4, albumin 2.0. INR 1.7. ASSESSMENT: 1. Staphylococcus sepsis. 2. Hepatic encephalopathy. 3. Liver cirrhosis. 4. Infection of surgical site lumbar area from his surgery for L4-L5 herniated disc. 5. History of atrial septal defect, status post repair. 6. Thrombocytopenia. 7. Coagulopathy. 8. Ascites. PLAN: 1. As noted, a PICC line was placed today. 2. I discontinued his ciprofloxacin and metronidazole. 3. Continuing vancomycin. 4. I started Aldactone. We will also give him additional Lasix to reduce his fluid retention and ascites. 5. Planning for him to go to [facility]. 6. We are planning on getting him set up for antibiotic therapy [facility]. He will need IV antibiotic, most likely is going to be daptomycin for 6-8 weeks as recommended by Dr. Banks. MARY IMOGENE BASSETT HOSPITALRefugio
[2017-03-31] MEDS: POTASSIUM CHLORIDE 20 MEQ TABCR PO SCH (21:16)
[2017-03-31] MEDS: DOCUSATE SODIUM/SENNA 50/8.6MG TAB PO SCH (21:16)
[2017-04-01] VITALS (11 sets, daily range): BP systolic 102–135; BP diastolic 60–71; PULSE 62–76; TEMP 36.5–36.7; O2SAT 93–100
[2017-04-01] MEDS: HYDROmorphone INJ 1 MG/ML SYR IV PRN ×3 (01:10→18:26)
[2017-04-01] MEDS: LEVALBUTEROL 1.25MG/3ML NEB INH SCH ×4 (01:40→19:43)
[2017-04-01] MEDS: ACETAMINOPHEN 500 MG TAB PO PRN (04:42)
[2017-04-01] MEDS: FUROSEMIDE INJ 40 MG in SYRINGE 0 ML IV SCH ×2 (06:33→14:15)
[2017-04-01 07:00] LABS: CREATININE 1.5 mg/dl (0.60-1.40)
[2017-04-01] MEDS: POTASSIUM CHLORIDE 20 MEQ TABCR PO SCH ×3 (08:50→21:49)
[2017-04-01] MEDS: SPIRONOLACTONE 25 MG TAB PO SCH (08:50)
[2017-04-01] MEDS: METOPROLOL TARTRATE 50 MG TAB PO SCH ×2 (08:50→21:49)
[2017-04-01] MEDS: INSULIN ASPART 100 UNITS/ML 3 ML PEN SC SCH ×4 (08:57→21:56)
--- NOTE | 2017-04-01 09:18 | Pharmacy Progress Note ---
Pharmacy Abx Dose Progress Nt Date of Service April 01, 2017. Pharmacy Dosing Scope The patient is currently receiving the following antimicrobial agents per Pharmacy consult: * VANCOMYCIN 1250 mg IV every 12 hours Objective Height (Feet): 5 Height (Inches): 7 Weight (Kilograms): 111.100 Vital Signs (Past 12Hrs) Vital Signs Past 12 Hours Date Time Temp Pulse Resp B/P Pulse Ox O2 Delivery O2 Flow Rate FiO2 04/01/17 08:54 67 109/70 94 Room Air 04/01/17 07:17 36.5 62 18 108/68 100 Mask 7.0 04/01/17 07:07 68 18 93 Room Air 04/01/17 01:40 65 18 95 Room Air 04/01/17 00:30 Room Air 03/31/17 22:58 36.6 68 18 107/60 95 Room Air Lab Results (24Hrs) Test 03/31/17 17:57 03/31/17 20:33 04/01/17 05:45 04/01/17 06:00 Vancomycin Level Trough 25.2 mcg/ml (SEE COMMENT) Bedside Glucose 144 mg/dl (70-99) Creatinine 1.50 mg/dl (0.60-1.40) Est Creatinine Clear Calc Drug Dose 59.2 ml/min Estimated GFR () 56.2 Estimated GFR (Non- 48.5 Test 04/01/17 08:21 Bedside Glucose 130 mg/dl (70-99) Micro Results Date/Time Source Procedure Growth Status 03/24/17 21:40 Blood Blood Culture - Final Coag Neg Staph Not Lugdunensis Complete 03/24/17 21:35 Blood Blood Culture - Final Coag Neg Staph Not Lugdunensis Complete 03/25/17 07:45 Urine , Clean Catch Urine Culture - Final NO GROWTH - LESS THAN 1,000 COLONIES/ML Complete 03/29/17 12:00 Drainage-Deep Lumbar Gram Stain - Final Resulted 03/29/17 12:00 Bacterial Culture - Preliminary Staph Species Resulted 03/27/17 00:00 Peritoneal Fluid Acid Fast Stain - Final Resulted 03/27/17 00:00 Peritoneal Fluid Mycobacterial Culture Pending Resulted 03/27/17 00:00 Peritoneal Fluid Gram Stain - Final Resulted 03/27/17 00:00 Peritoneal Fluid Bacterial Culture - Preliminary NO GROWTH TO DATE. Resulted Risk Factors for Resistance * Hospitalization for 48 hours or more within the past 90 days (lumbar surgery in February 2017) * Current hospitalization > 5 days * Immunocompromised (chronic steroid therapy) Assessment & Plan Assessment 62 year old male receiving VANCOMYCIN IV for treatment of CoN Staph bacteremia , infected epidural abscess following surgery on L4-5 * Day # 8 of antimicrobial therapy (will likely require 6-8 wks of ABX per provider's) * Renal fxn stable over the last 3 days - SCr a little higher than earlier this admission (1.2-1.3 early in admission vs 1.4-1.5 now). U.O. yesterday 3550. Vital signs stable. Will need to monitor renal fxn closely given 2 elevated troughs in the last 4 days. Will recheck SCr tomorrow AM. Plan Vancomycin IV * Trough level of 25.2 mcg/mL is supratherapeutic - likely due to accumulation of drug w/ ongoing therapy in obese patient (BMI > 35) * Change to 1300 mg IV every 18 hours - given an estimated half-life of ~13-14 hrs and estimated peak of ~40-45 after last evening's dose, he will not need redosed until 2200 tonight at which time trough should be less than 20 by my calculations * Goal trough level for bacteremia, epidural abscess : 15 to 20 mcg/mL * Trough or random level ordered for: 04/03/17 * Less than traditional dose and/or extended dosing interval selected due to likelihood of drug accumulation in obese patient/CKD. Pharmacy will continue to follow and will adjust dose/frequency as necessary. Thank you)
--- NOTE | 2017-04-01 10:05 | PROGRESS NOTE ---
DATE: 04/01/2017 DATE: 04/01/2017. SUBJECTIVE: The patient is in bed. He is difficult to maintain conversation, he is quite lethargic this morning. Vital signs are stable. T max 36.5. ANA drained 40 mL over the last shift. ASSESSMENT: Status post incision and drainage lumbar spine. PLAN: At this time, the ANA drain is still fairly significant and in light of his protein counts and liver disease this may need to stay in a few extra days. Continue to recommend transfers and ambulation as tolerated.
[2017-04-01 10:39] LABS: BASO % 0.9 %; BASO ABS # 0.06 K/uL (0-0.2); COMPLETE YES; EOS % 4.7 %; HEMATOCRIT 28.7 % (42-52); IG% 1.4 %; LYMPH % 11.4 %; LYMPH ABS # 0.76 K/uL (1.2-3.4); MEAN CELL VOLUME 93.2 fL (80-100); MEAN CORPUSCULAR HEMOGLOBIN 33.4 pg (25-34); MEAN CORPUSCULAR HGB CONC 35.9 g/dl (32-36); MEAN PLATELET VOLUME 11.6 fL (7.4-10.4); MONO % 12.7 %; NEUT % 68.9 %; PLATELET COUNT 122 K/uL (130-400); RED BLOOD COUNT 3.08 M/uL (4.7-6.1); WHITE BLOOD COUNT 6.64 K/uL (4.8-10.8)
[2017-04-01 10:52] LABS: INR 1.7 (0.9-1.1); PROTHROMBIN TIME (PATIENT) 18.6 SECONDS (9.0-12.0)
[2017-04-01 11:30] LABS: ALB/GLOB RATIO 0.5 (0.9-2); BUN/CREATININE RATIO 16.7 (10-20); CALCIUM 8.5 mg/dl (8.5-10.1); CREATININE 1.5 mg/dl (0.60-1.40)
[2017-04-01] MEDS: ONDANSETRON INJ 8 MG in DEXTROSE 5% 50ML 50 ML IV PRN (12:28)
[2017-04-01] MEDS: POTASSIUM CHLR 10 MEQ / WTR 10 MEQ in PREMIXED WATER 100 ML IV SCH ×2 (12:53→14:15)
--- NOTE | 2017-04-01 13:43 | PROGRESS NOTE ---
DATE: 04/01/2017 PROBLEM LIST: A 62-year-old male admitted with multiple problems includin. Mental status changes. 2. Staphylococcus sepsis. 3. Status post surgery for herniated L4-L5 disc. 4. Surgical site infection with fluid collection which also growing Staphylococcus. 5. 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 6. Atrial septal defect which was repaired in 2014. 7. Type 2 diabetes mellitus. 8. Chronic prednisone therapy. 9. Hyperlipidemia. 10. Sleep apnea. 11. Liver cirrhosis. 12. Chronic thrombocytopenia. 13. Coagulopathy secondary to his liver disease. SUBJECTIVE: The patient was admitted. Started on IV antibiotics. Initially, there was suspicion that he may have diverticulitis and he was started on ciprofloxacin and metronidazole. Then the blood culture was reported to be positive for Gram-positive cocci and vancomycin was started. The culture was later identified as Staphylococcus aureus. The patient was taken to the operating room by Dr. Gray. The surgical site was reexplored. He had a fluid collection. Culture was done. The culture grew Staphylococcus. Multiple problems have occurred during his hospitalization with deterioration of his liver function. His bilirubin has risen. His prothrombin time INR is 1.7. Prior to his surgery, he required platelet transfusion and also administration of fresh frozen plasma. The patient is being diuresed with IV Lasix and he was also started on Aldactone. Yesterday he also had a paracentesis done and removed 3000 mL of ascitic fluid. His condition has improved. He presented with confusion. His mental status is improving. He feeling tired. Sleeping this morning. Denied any headache. No dizziness. No chest pain. No shortness of breath. No abdominal pain, no nausea, no vomiting. His abdomen is distended because of the ascites. He still has a drain in his surgical site and he is draining good amount of fluid. He does have swelling in both legs. Also swelling in his scrotum and penis. PHYSICAL EXAMINATION: GENERAL: Well developed in no distress. VITAL SIGNS: Blood pressure 108/68, pulse 62, respirations 18, temperature 36.5, oxygen saturation was 100% on his CPAP mask with oxygen, 94% on room air subsequently SKIN: Warm and dry. Jaundiced. HEENT: Scleral icterus. No mucosal abnormalities. NECK: No JVD, no adenopathy. HEART: Regular heart sounds with a 2/6 systolic murmur. LUNGS: Decreased breath sounds. No wheezing, no rhonchi. ABDOMEN: Distended with ascites, but much improved since the paracentesis yesterday. BACK: No spinal tenderness. EXTREMITIES: Bilateral leg edema. GENITALIA: He does have edema of the scrotum and the penis. TODAY'S LABORATORY TESTS: WBC count 6640, hemoglobin 10.3, hematocrit 28.7, platelet count 122,000. Sodium 138, potassium 3.0, chloride 101, CO2 of 29, BUN 25, creatinine 1.5, glucose 213, calcium 8.5, total bilirubin 8.1, AST 44, ALT 20, alkaline phosphatase 232, total protein 5.4, albumin 1.9, globulin 3.5. ASSESSMENT: 1. Staphylococcus sepsis. 2. Infected surgical site after his lumbar surgery for herniated disk. 3. Mental status changes. 4. Hepatic encephalopathy. 5. Liver cirrhosis. 6. Sarcoidosis. 7. Type 2 diabetes mellitus. 8. Large ascites requiring paracentesis. 9. Sleep apnea. 10. 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 PLAN: 1. Continuing with his diuresis. 2. His potassium will be corrected. 3. Continuing his other medications. 4. Encouraged to be out of bed. 5. Eventually patient will go to [facility]. 6. As recommended by Dr. Banks, the patient will need IV antibiotics for 6-8 weeks because of the source of the infection and his multiple comorbidities. I am hoping that his antibiotic can be changed from vancomycin to daptomycin, which will make it easier for 1 a day administration since the patient will have to have his IV antibiotics administered at the medical treatment unit after his discharge from the rehab hospital. The cost of him having the antibiotic administered at home is prohibitive at this point.
[2017-04-01] MEDS: DOCUSATE SODIUM/SENNA 50/8.6MG TAB PO SCH (21:49)
[2017-04-01] MEDS: VANCOMYCIN INJ 1,300 MG in SODIUM CHLORIDE 0.9% 250ML 250 ML IV SCH (22:03)
[2017-04-02] VITALS (8 sets, daily range): BP systolic 100–111; BP diastolic 57–67; PULSE 63–70; TEMP 36.5–36.9; O2SAT 94–97
[2017-04-02] MEDS: LEVALBUTEROL 1.25MG/3ML NEB INH SCH ×4 (02:21→20:21)
[2017-04-02 06:01] LABS: BASO % 0.7 %; BASO ABS # 0.06 K/uL (0-0.2); COMPLETE YES; EOS % 3.1 %; HEMATOCRIT 29.8 % (42-52); IG% 1.6 %; LYMPH % 9.2 %; LYMPH ABS # 0.79 K/uL (1.2-3.4); MEAN CELL VOLUME 91.4 fL (80-100); MEAN CORPUSCULAR HEMOGLOBIN 31.6 pg (25-34); MEAN CORPUSCULAR HGB CONC 34.6 g/dl (32-36); MONO % 11.4 %; PLATELET COUNT 146 K/uL (130-400); RED BLOOD COUNT 3.26 M/uL (4.7-6.1); WHITE BLOOD COUNT 8.61 K/uL (4.8-10.8)
[2017-04-02 06:12] LABS: INR 1.6 (0.9-1.1); PROTHROMBIN TIME (PATIENT) 17.8 SECONDS (9.0-12.0)
[2017-04-02] MEDS: FUROSEMIDE INJ 40 MG in SYRINGE 0 ML IV SCH ×2 (06:30→13:49)
[2017-04-02 06:49] LABS: ALB/GLOB RATIO 0.5 (0.9-2); BUN/CREATININE RATIO 16.5 (10-20); CALCIUM 8.8 mg/dl (8.5-10.1); CREATININE 1.4 mg/dl (0.60-1.40); POTASSIUM 3.6 mmol/L (3.5-5.1)
[2017-04-02] MEDS: ACETAMINOPHEN 500 MG TAB PO PRN ×3 (07:38→23:55)
[2017-04-02] MEDS: HYDROmorphone INJ 1 MG/ML SYR IV PRN (09:06)
[2017-04-02] MEDS: POTASSIUM CHLORIDE 20 MEQ TABCR PO SCH ×3 (09:20→20:53)
[2017-04-02] MEDS: METOPROLOL TARTRATE 50 MG TAB PO SCH ×2 (09:21→20:54)
[2017-04-02] MEDS: SPIRONOLACTONE 25 MG TAB PO SCH (09:21)
[2017-04-02] MEDS: INSULIN ASPART 100 UNITS/ML 3 ML PEN SC SCH ×4 (09:26→20:58)
--- NOTE | 2017-04-02 11:36 | PROGRESS NOTE ---
DATE: 04/02/2017 HISTORY OF PRESENT ILLNESS: A 62-year-old male admitted with multiple problems includin. Mental status changes. 2. Metabolic encephalopathy secondary to his liver disease. 3. Sepsis secondary to Staphylococcus, which should also contributed to his mental status changes and encephalopathy. 4. Status post surgery for large herniation of L4-5 disc with neurological compromise. 5. Infection at the incision site with pocket of fluid that was drained by Dr. Gray and the culture is growing Staphylococcus. 6. Liver cirrhosis. 7. Type 2 diabetes mellitus. 8. Chronic steroid therapy. 9. 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 10. History of atrial septal defect which was repaired with the patch at the [facility] in 2014. The patient remains afebrile. He is currently on vancomycin. Initially, there was a suspicion of diverticulitis and he was also treated with metronidazole and Cipro, but these 2 antibiotics were discontinued yesterday. He remains afebrile. His RN, Sondra Mendoza, made the very important observation that whenever he got out of bed or stood up or sat in the chair, he experienced severe headache. Yesterday, he also became nauseous. She also noted markedly increased output through his drain from the lumbar surgical site whenever he stood up. She raised the possibility of a CSF leak. Actually this morning, I did the same thing got him out of bed and was taking him for a walk in the hallway and as soon as his stood up, he experienced severe headache. He had to sit down and I had to take him back to his room in a wheelchair. Also, when I first saw him this morning, I checked the drainage and it was really minimal but after he stood up and we got him back to bed the drainage increased very significantly. So most likely that is exactly what we are dealing with a CSF leak. We got him back to bed. He was medicated with Dilaudid. I spoke with Dr. Gray. Dr. Gray spoke with his nurse. He wanted the drain to be pulled out and the patient be kept in a flat position. Keep him at bed rest. Dr. Gray will be in to see the patient. Other than that his condition has been improving. He is less jaundiced. No dizziness. No chest pain, no shortness of breath. No cough. No abdominal pain. He had a paracentesis on Monday. During the night, there was leakage from the paracentesis site, so an ostomy bag was placed and he is draining some acidic fluid from that site. No problem urinating. His scrotal and penile edema has decreased. He is not really having any back pain. His leg edema has also decreased. PHYSICAL EXAMINATION: GENERAL: Well developed, in no acute distress. His weight today was 108.4 kilograms. His weight has been decreasing significantly with the diuresis and after the paracentesis when 3000 mL were removed. VITAL SIGNS: Blood pressure 111/67, pulse 65, respirations 16, temperature 36.5, oxygen saturation 94% on room air. SKIN: Warm and dry. No rash. Jaundiced. HEENT: No mucosal abnormality. NECK: No JVD. No adenopathy. HEART: Regular heart sounds with 2/6 systolic murmur. LUNGS: Clear. ABDOMEN: Soft. Still with evidence of ascites but much less than it has been. No abdominal tenderness. No guarding, no rebound. Ostomy bag on the right side at the site where he had his paracentesis with ascitic fluid content. BACK: Surgical dressing in place. Drain in place. EXTREMITIES: Bilateral leg edema, but markedly improved. GENITALIA: He does have scrotal edema and edema of the penis, but that has markedly decreased. TODAY'S LABORATORY TESTS: WBC count 8610, hemoglobin 10.3, hematocrit 29.8, and platelet count 146,000. Sodium 137, potassium 3.6, chloride 102, CO2 29, BUN 23, creatinine 1.4, glucose 141, calcium 8.8, total bilirubin 7.4, AST 42, ALT 20, alkaline phosphatase 251, total protein 5.5, albumin 1.19. ASSESSMENT: 1. Mental status changes with metabolic encephalopathy secondary to liver cirrhosis and sepsis. 2. Sepsis secondary to Staphylococcus. 3. Liver cirrhosis. 4. Status post surgery for L4-L5 disc herniation. 5. Status post surgery reexploration of the surgical site with finding of fluid collection which is also growing Staphylococcus. 6. Suspected cerebrospinal fluid leak. 7. Type 2 diabetes mellitus. 8. Sarcoidosis. 9. Sleep apnea. PLAN: 1. Continuing IV vancomycin. 2. I spoke with Dr. Gray this morning after I saw Mr. Santiago. Dr. Gray spoke with the RN. He wants her to pull out the drain from his surgical site in the lumbar area. Keep the patient flat in bed. Dr. Gray will be in to evaluate the patient. 3. All his laboratory tests are trending toward improvement. 4. Continuing all his medications. 5. Pain control as far as his headache. He was just given a dose of Dilaudid IV. 6. The plan is for him to go to [facility], but we have to wait until he is stable and all his problems are taken care of. At this point, with the suspicion of the CSF leak, the patient will be here for at least for the next 2-3 days. AMBIKA
--- NOTE | 2017-04-02 13:44 | PROGRESS NOTE ---
DATE: 04/02/2017 SUBJECTIVE: Unfortunately, he is demonstrating evidence of a CSF leak. We did pull the drain this morning and would plan on bed rest at least for the next 24, possibly 48 hours, before reinitiating transfers to a chair and ambulation. If he does continue to demonstrate CSF leak, we may have to explore the incision and repair it openly. This is reviewed with patient and family.
[2017-04-02] MEDS: VANCOMYCIN INJ 1,300 MG in SODIUM CHLORIDE 0.9% 250ML 250 ML IV SCH (15:59)
[2017-04-02] MEDS: DOCUSATE SODIUM/SENNA 50/8.6MG TAB PO SCH (20:53)
[2017-04-03] MEDS: HYDROmorphone INJ 1 MG/ML SYR IV PRN ×2 (01:34→05:46)
[2017-04-03] MEDS: LEVALBUTEROL 1.25MG/3ML NEB INH SCH ×4 (02:31→19:32)
[2017-04-03] MEDS: FUROSEMIDE INJ 40 MG in SYRINGE 0 ML IV SCH ×2 (06:29→13:34)
[2017-04-03 07:55] VITALS: PULSE 79; O2SAT 92
[2017-04-03] MEDS: INSULIN ASPART 100 UNITS/ML 3 ML PEN SC SCH ×4 (08:00→20:08)
[2017-04-03 08:17] VITALS: BP 106/62; PULSE 61; TEMP 36.9; O2SAT 91
[2017-04-03 08:18] LABS: BASO % 0.9 %; COMPLETE YES; EOS % 4.7 %; HEMATOCRIT 30.9 % (42-52); IG% 1.6 %; MEAN CELL VOLUME 91.7 fL (80-100); MEAN PLATELET VOLUME 11.1 fL (7.4-10.4); MONO % 11.5 %; NEUT % 72.3 %; PLATELET COUNT 166 K/uL (130-400); RED BLOOD COUNT 3.37 M/uL (4.7-6.1); WHITE BLOOD COUNT 11.17 K/uL (4.8-10.8)
[2017-04-03 08:24] LABS: INR 1.6 (0.9-1.1); PROTHROMBIN TIME (PATIENT) 16.9 SECONDS (9.0-12.0)
[2017-04-03] MEDS: METOPROLOL TARTRATE 50 MG TAB PO SCH ×2 (09:30→20:11)
[2017-04-03] MEDS: POTASSIUM CHLORIDE 20 MEQ TABCR PO SCH ×3 (09:30→20:11)
[2017-04-03] MEDS: SPIRONOLACTONE 25 MG TAB PO SCH (09:30)
[2017-04-03] MEDS ORDERED: VANCOMYCIN TROUGH ONE (09:30)
[2017-04-03 09:33] LABS: ALB/GLOB RATIO 0.5 (0.9-2); BUN/CREATININE RATIO 14.9 (10-20); CALCIUM 9.4 mg/dl (8.5-10.1); CREATININE 1.5 mg/dl (0.60-1.40); POTASSIUM 3.6 mmol/L (3.5-5.1)
[2017-04-03] MEDS: ONDANSETRON INJ 8 MG in DEXTROSE 5% 50ML 50 ML IV PRN ×2 (10:00→15:27)
[2017-04-03] MEDS: VANCOMYCIN INJ 1,300 MG in SODIUM CHLORIDE 0.9% 250ML 250 ML IV SCH (10:18)
--- NOTE | 2017-04-03 13:29 | PROGRESS NOTE ---
DATE: 04/03/2017 SUBJECTIVE: Today, he denies any headache. He states he is relatively comfortable; however, he does have signs of confusion and did ask me where he was, at the current time. He quickly realized he was at the hospital to questioning. PHYSICAL EXAMINATION: VITAL SIGNS: Stable. T-max 36.9. BACK AND SPINE: On inspection of the lumbar spine demonstrates a clean and intact dressing. There is no evidence of drainage at this time. There is no fluctuance to palpation of the lumbar musculature or jeremie-incisional region. There is no erythema. NEUROLOGICALLY: Intact to testing of the lower extremities. ASSESSMENT: Lumbar decompression and fusion with postoperative infection and concerns of a cerebrospinal fluid leak. PLAN: At this time, will maintain bed rest today. Pending his improvement over the next 24 hours, I may initiate a course of physical therapy to be in Monday with transitions to the chair. He understands and agrees.
[2017-04-03 14:29] VITALS: PULSE 73; O2SAT 90
[2017-04-03 15:00] VITALS: BP 122/66; PULSE 74; TEMP 37.4; O2SAT 92
[2017-04-03 19:32] VITALS: PULSE 79; O2SAT 92
[2017-04-03] MEDS: DOCUSATE SODIUM/SENNA 50/8.6MG TAB PO SCH (20:10)
--- NOTE | 2017-04-03 20:51 | Infectious Disease Progress Nt ---
Progress Note Date of Service April 03, 2017. Subjective Pt evaluation today including: conversation w/ patient, physical exam, chart review, lab review, review of studies, conversation w/ financial management consultant, review of inpatient medication list Now appears to have developed CSF leak. Somewhat confused. No fever. Appears to be tolerating antibiotics without apparent difficulty. All Other Systems: Reviewed and Negative Medications Current Inpatient Medications Medications (Trade) Dose Ordered Sig/Nathalia Route Start Time Stop Time Status Last Admin Dose Admin Prednisone (PredniSONE TAB) 10 mg QAM PO 03/25/17 09:00 04/24/17 08:59 04/03/17 09:31 10 MG Glucose (Glucose 40% Gel) 15-30 GRAMS 15 GRAMS... UD PRN PO 03/24/17 22:45 04/23/17 22:44 Glucose (Glucose Chew Tab) 4-8 Tablets 4 Tabl... UD PRN PO 03/24/17 22:45 04/23/17 22:44 Dextrose (Dextrose 50% 50ML Syringe) 25-50ML OF 50% DW IV FOR... UD PRN IV 03/24/17 22:45 04/23/17 22:44 Glucagon 1 mg 1 mg UD PRN SQ 03/24/17 22:45 04/23/17 22:44 Ondansetron HCl/ Dextrose (Zofran Inj/D5 50ml) 54 ml @ 200 mls/hr Q4H PRN IV 03/25/17 05:30 04/24/17 05:29 04/03/17 15:27 200 MLS/HR Acetaminophen (Tylenol Tab) 500 mg Q4H PRN PO 03/25/17 07:45 04/24/17 07:44 04/02/17 23:55 500 MG Hydromorphone HCl (Dilaudid Inj) 0.5 mg Q4H PRN IV 03/26/17 02:30 04/09/17 02:29 04/03/17 05:46 0.5 MG Levalbuterol (Xopenex 1.25MG/ 3ML Neb) 1.25 mg Q6R INH 03/27/17 09:00 04/26/17 08:59 04/03/17 19:32 1.25 MG Sodium Chloride ([place] Nasal [place]) 1 sprays PRN PRN NA 03/28/17 13:00 04/27/17 12:59 03/28/17 13:07 1 SPRAYS Metoprolol Tartrate (Lopressor Tab) 50 mg BID PO 03/28/17 21:00 04/27/17 20:59 04/03/17 20:11 50 MG Bisacodyl (Dulcolax Supp) 10 mg DAILY PRN MD 03/29/17 12:30 04/28/17 12:29 04/02/17 20:03 10 MG Magnesium Hydroxide (Milk Of Magnesia Susp) 30 ml DAILY PRN PO 03/29/17 12:30 04/28/17 12:29 Naloxone HCl (Narcan Inj) 0.1 mg Q5M PRN IV 03/29/17 12:30 04/28/17 12:29 Senna/Docusate Sodium (Senokot S Tab) 2 tab HS PO 03/29/17 21:00 04/28/17 20:59 04/03/17 20:10 2 TAB Sodium Biphosphate/ Sodium Phosphate (Fleet Enema) 132 ml ONE PRN MD 03/29/17 12:30 04/28/17 12:29 Insulin Aspart (novoLOG ASPART) SLIDING SCALE G... ACHS SC 03/30/17 17:15 04/29/17 17:14 04/02/17 20:58 5 UNITS Spironolactone (Aldactone Tab) 25 mg QAM PO 03/31/17 09:00 04/30/17 08:59 04/03/17 09:30 25 MG Heparin Sodium (Porcine) 5 ml 5 ml PRN PRN FLUSH 03/31/17 16:15 04/30/17 16:14 04/03/17 16:01 5 ML Furosemide/Syringe (Lasix Inj/ Syringe) 4 ml @ 4 mls/min [id number] IV 04/01/17 07:00 05/01/17 06:59 04/03/17 13:34 4 MLS/MIN Potassium Chloride 20 meq 20 meq TID PO 04/01/17 14:00 05/01/17 13:59 04/03/17 20:11 20 MEQ Daptomycin/Sodium Chloride (Cubicin IV/Nss 50ml) 62 ml @ 120 mls/hr DAILY@0600 IV 04/04/17 06:00 05/05/17 06:30 Objective Vital Signs Date Time Temp Pulse Resp B/P Pulse Ox O2 Delivery O2 Flow Rate FiO2 04/03/17 19:32 79 18 92 Room Air 04/03/17 15:00 37.4 74 18 122/66 92 Room Air 04/03/17 14:29 73 18 90 Room Air 04/03/17 10:09 Room Air 04/03/17 08:17 36.9 61 18 106/62 91 Room Air 04/03/17 07:55 79 18 92 Room Air 04/02/17 23:45 Room Air 04/02/17 22:47 36.9 68 18 108/66 97 Room Air Physical Exam General Appearance: WD/WN, no apparent distress Eyes: normal inspection, sclerae normal ENT: normal ENT inspection, pharynx normal Neck: supple, no adenopathy, trachea midline Respiratory/Chest: chest non-tender, lungs clear, normal breath sounds, no respiratory distress Cardiovascular: regular rate, rhythm, no gallop, no murmur Abdomen: normal bowel sounds, non tender, no organomegaly, + distended, + pertinent finding (Leakage from paracentesis site) Extremities: non-tender, no calf tenderness Neurologic/Psychiatric: alert Skin: normal color, no rash Lymphatic: no adenopathy Laboratory Results Last 24 Hours Test 04/03/17 08:00 04/03/17 08:17 04/03/17 09:47 04/03/17 12:06 White Blood Count 11.17 K/uL Red Blood Count 3.37 M/uL Hemoglobin 10.8 g/dL Hematocrit 30.9 % Mean Corpuscular Volume 91.7 fL Mean Corpuscular Hemoglobin 32.0 pg Mean Corpuscular Hemoglobin Concent 35.0 g/dl Platelet Count 166 K/uL Mean Platelet Volume 11.1 fL Neutrophils (%) (Auto) 72.3 % Lymphocytes (%) (Auto) 9.0 % Monocytes (%) (Auto) 11.5 % Eosinophils (%) (Auto) 4.7 % Basophils (%) (Auto) 0.9 % Neutrophils # (Auto) 8.09 K/uL Lymphocytes # (Auto) 1.00 K/uL Monocytes # (Auto) 1.28 K/uL Eosinophils # (Auto) 0.52 K/uL Basophils # (Auto) 0.10 K/uL RDW Standard Deviation 53.8 fL RDW Coefficient of Variation 16.9 % Immature Granulocyte % (Auto) 1.6 % Immature Granulocyte # (Auto) 0.18 K/uL Prothrombin Time 16.9 SECONDS Prothromb Time International Ratio 1.6 Sodium Level 136 mmol/L Potassium Level 3.6 mmol/L Chloride Level 99 mmol/L Carbon Dioxide Level 31 mmol/L Anion Gap 6.0 mmol/L Blood Urea Nitrogen 22 mg/dl Creatinine 1.50 mg/dl Est Creatinine Clear Calc Drug Dose 56.1 ml/min Estimated GFR () 56.2 Estimated GFR (Non- 48.5 BUN/Creatinine Ratio 14.9 Random Glucose 93 mg/dl Calcium Level 9.4 mg/dl Total Bilirubin 7.2 mg/dl Aspartate Amino Transf (AST/SGOT) 46 U/L Alanine Aminotransferase (ALT/SGPT) 21 U/L Alkaline Phosphatase 238 U/L Total Protein 5.7 gm/dl Albumin 2.0 gm/dl Globulin 3.7 gm/dl Albumin/Globulin Ratio 0.5 Bedside Glucose 88 mg/dl 78 mg/dl Vancomycin Level Trough 22.9 mcg/ml Test 04/03/17 16:57 Bedside Glucose 100 mg/dl Assessment and Plan 62-year-old male with multiple medical comorbidities including sarcoidosis and severe hepatic disease, now with coagulase negative staphylococcal sepsis with probable epidural abscess following lumbar laminectomy. Patient now status post surgical debridement. I feel the patient will require prolonged i.e. 6-8 weeks IV antibiotic therapy. Given penicillin allergy, daptomycin would provide easiest therapy once patient leaves the hospital. I would obtain echocardiogram to see if any significant valvular findings. Further management of CSF leak as per Dr. Gray. I will discuss with all involved and we will continue to follow patient.
[2017-04-03 22:58] VITALS: BP 116/65; PULSE 77; TEMP 37.4; O2SAT 92
[2017-04-04] VITALS (13 sets, daily range): BP systolic 119–162; BP diastolic 61–84; PULSE 69–82; TEMP 36.5–37; O2SAT 90–97
--- NOTE | 2017-04-04 00:26 | PROGRESS NOTE ---
DATE: 04/03/2017 A 62-year-old male admitted with mental status changes and metabolic encephalopathy, secondary to his liver cirrhosis and also, he was septic with Staphylococcus. He had prior surgery for herniated L4-L5 disc. He was found to have a pocket of fluid collection at the surgical site, which required re-exploration by Dr. Gray. The fluid was suspected to be an infectious collection. Eventually, the culture from the fluid did also grow Staphylococcus. The patient with known liver cirrhosis, type 2 diabetes mellitus, chronic steroid therapy, sarcoidosis and history of repair of an ASD. Today, the patient has been confused throughout the day; definitely not as bad as it has been in the past. Unfortunately, there is a suspicion of a CSF leak, so he is kept at bed rest. There has been no fever. No chills. No further headaches. No dizziness. No lightheadedness. Denied any chest pain, no shortness of breath. No abdominal pain. He has had vomiting twice today. He has had bowel movements. No problem urinating. Denied any pain in his extremities. He is complaining of some pain in the lower back the right buttocks area. PHYSICAL EXAMINATION: GENERAL: Well developed, in no distress. VITAL SIGNS: Blood pressure 106/62, pulse 61, respirations 18, temperature is 36.9, oxygen saturation 91% on room air. SKIN: Warm and dry. Jaundiced. HEENT: Sclerae icterus. No mucosal abnormalities. NECK: No adenopathy, no thyromegaly, no JVD. No rigidity. CHEST: Normal. HEART: Regular heart sounds with a 2/6 systolic murmur. LUNGS: Clear. No wheezing. ABDOMEN: Distended, related to his ascites. No tenderness. There is some ascitic fluid leakage from the sites of prior two paracenteses that he had. BACK: Surgical dressing in place. EXTREMITIES: Persistent bilateral leg edema. Also, there is dependent edema of the upper thighs and hips. NEUROLOGIC: He is confused. His confusion has been intermittent today. There is no lateralized deficit. LABORATORY TESTS: WBC count 11,170; hemoglobin 10.8, hematocrit 30.9, platelet count 166,000. His INR was 1.6. Sodium 136, potassium 3.6, chloride 99, CO2 31, BUN 22, creatinine 1.5, glucose 93, calcium 9.4, total bilirubin 7.2, AST 46, ALT 21, alkaline phosphatase 238, total protein 5.7, albumin 2.0. ASSESSMENT: 1. Sepsis, secondary to Staphylococcus. 2. Status post surgery for L4-L5 herniated disc. 3. Postoperative infection at the surgical site. Culture is growing Staphylococcus. 4. Liver cirrhosis. 5. Hepatic encephalopathy. 6. Type 2 diabetes mellitus. 7. Sarcoidosis. 8. History of repair of atrial septal defect. 9. Ascites. PLAN: 1. Continuing the same medications. 2. Continue diuresis with IV Lasix and he is also on Aldactone. 3. He is at bed rest throughout the day today. 4. We will monitor his WBC count. Monitor his temperature. 5. Dr. Gray will decide whether the surgical site will need to be explored to repair the CSF leak. 6. He is on vancomycin. Today, he was changed to daptomycin by Dr. Banks. He will be on the antibiotic for a total of 6-8 weeks. The patient has a PICC line and the intent is for him to go to [facility] once he is stable and then continue the course of his antibiotic treatment as an outpatient in the medical treatment unit. 7. I spoke with his and his daughter this afternoon. AMBIKA
[2017-04-04] MEDS: LEVALBUTEROL 1.25MG/3ML NEB INH SCH ×4 (02:04→19:55)
[2017-04-04 05:12] LABS: BASO % 0.6 %; BASO ABS # 0.07 K/uL (0-0.2); COMPLETE YES; EOS % 2.1 %; IG% 1.2 %; LYMPH % 9.4 %; LYMPH ABS # 1.04 K/uL (1.2-3.4); MEAN CELL VOLUME 90.4 fL (80-100); MEAN CORPUSCULAR HEMOGLOBIN 31.6 pg (25-34); MEAN PLATELET VOLUME 10.7 fL (7.4-10.4); MONO % 12.3 %; NEUT % 74.4 %; PLATELET COUNT 154 K/uL (130-400); RED BLOOD COUNT 3.32 M/uL (4.7-6.1); WHITE BLOOD COUNT 11.12 K/uL (4.8-10.8)
[2017-04-04 05:35] LABS: INR 1.5 (0.9-1.1); PROTHROMBIN TIME (PATIENT) 16.1 SECONDS (9.0-12.0)
[2017-04-04 05:37] LABS: ALB/GLOB RATIO 0.5 (0.9-2); BUN/CREATININE RATIO 16.1 (10-20); CALCIUM 9.2 mg/dl (8.5-10.1); CREATININE 1.6 mg/dl (0.60-1.40); MAGNESIUM 1.8 mg/dl (1.8-2.4); POTASSIUM 4.2 mmol/L (3.5-5.1)
[2017-04-04] MEDS: DAPTOmycin IV 600 MG in SODIUM CHLORIDE 0.9% 50ML 50 ML IV SCH (06:00)
[2017-04-04] MEDS: INSULIN ASPART 100 UNITS/ML 3 ML PEN SC SCH ×4 (09:20→21:41)
[2017-04-04] MEDS: POTASSIUM CHLORIDE 20 MEQ TABCR PO SCH ×3 (09:49→21:49)
[2017-04-04] MEDS: SPIRONOLACTONE 25 MG TAB PO SCH (09:49)
[2017-04-04] MEDS: METOPROLOL TARTRATE 50 MG TAB PO SCH ×2 (09:49→21:49)
--- NOTE | 2017-04-04 12:15 | PROGRESS NOTE ---
DATE: 04/04/2017 The patient is alert today, is sitting up at the side of the bed. He denies any headache, denies any leg pain, numbness or tingling. Back pain is controlled. On exam, he is oriented to place and time. His incision is clean, dry and intact. There is no fluctuance to palpation of the paravertebral musculature. ____ region. He has good strength to testing of lower extremities. ASSESSMENT: Status post lumbar decompression and fusion. PLAN: At this time, we will initiate transfers from bed to chair today. If he tolerates this without incident, we may consider increasing activity tomorrow.
[2017-04-04] MEDS: DOCUSATE SODIUM/SENNA 50/8.6MG TAB PO SCH (21:49)
--- NOTE | 2017-04-04 22:10 | PROGRESS NOTE ---
DATE: 04/04/2017 A 62-year-old male admitted with multiple problems includin. Encephalopathy, metabolic. It is thought to be multifactorial related to his liver cirrhosis and his sepsis. 2. Status post surgery for L4-L5 herniated disc. 3. Postoperative infection at the surgical site with fluid collection that also grew staphylococcus. 4. Sepsis related to staphylococcus. 5. Cirrhosis of the liver. 6. Sarcoidosis. 7. Coagulopathy. 8. Thrombocytopenia. 9. Type 2 diabetes mellitus. 10. History of ASD which was repaired in 2014. At this point, the main issue remains with his mental status. He is lethargic. Confused. He does not seem to be in any distress. He is at bed rest. He has a suspected CSF leak. He denied any headache. No dizziness, no lightheadedness. No chest pain, no shortness of breath. No abdominal pain, no nausea, no vomiting. Only very minimal discharge at the ostomy bag from his paracentesis site. He is complaining of low back pain but the pain is pretty much controlled. He does have swelling in his scrotum and penis which is resolving. He also has bilateral leg edema. PHYSICAL EXAMINATION: GENERAL: Well developed, in no distress. VITAL SIGNS: Blood pressure 162/84, pulse 70, respiration 15, temperature of 37, oxygen saturation 94% on room air. SKIN: Warm and dry. Jaundiced. HEENT: Conjunctival icterus noted. No mucosal abnormality. NECK: No JVD. No adenopathy. HEART: Regular heart sounds with 2/6 systolic murmur. LUNGS: Clear. ABDOMEN: Soft. Nontender. He does have evidence of ascites. BACK: Surgical dressing in place. EXTREMITIES: PICC line right upper arm. Bilateral leg edema. GENITALIA: The edema has resolved. TODAY'S LABORATORY TESTS: WBC count 11,120, hemoglobin 10.5, hematocrit 30%, platelet count 154,000. Sodium 136, potassium 4.2, chloride 99, CO2 of 34, BUN 26, creatinine 1.6, glucose 117, calcium 9.2, magnesium 1.8, total bilirubin 8.6, AST 54, ALT 22, alkaline phosphatase 221, total protein 6, albumin 1.9, globulin 4.1. His INR was 1.5. ASSESSMENT: 1. Metabolic encephalopathy secondary to liver cirrhosis and staphylococcus sepsis. 2. Liver cirrhosis. 3. Staphylococcus sepsis. 4. Sarcoidosis. 5. Chronic steroid therapy. 6. Status post surgery for L4-L5 disc. 7. Status post infectious process at the surgical site. The fluid drained also grew staphylococcus. 8. Coagulopathy. 9. Thrombocytopenia which is much improved. Prior to his surgery, he did receive platelet transfusion but his platelet count is holding in a good range. 10. Suspected cerebrospinal fluid leak at the surgical site. PLAN: 1. Continue with activity as recommended by Dr. Gray. 2. Continue his same medications. 3. He has been significantly diuresed with IV Lasix and he is also on Aldactone. 4. His mental status, remains confused. 5. We will increase his activity as soon as Dr. Gray thinks it is appropriate. 6. The intent is for him to go to [facility] after his acute hospitalization. 7. He is currently on daptomycin daily and the treatment should last between 6-8 weeks as recommended by Dr. Banks.
[2017-04-05] VITALS (10 sets, daily range): BP systolic 98–123; BP diastolic 55–71; PULSE 54–77; TEMP 36.1–36.9; O2SAT 90–97
[2017-04-05] MEDS: LEVALBUTEROL 1.25MG/3ML NEB INH SCH ×4 (02:05→19:40)
[2017-04-05] MEDS: DAPTOmycin IV 600 MG in SODIUM CHLORIDE 0.9% 50ML 50 ML IV SCH (05:38)
[2017-04-05 06:14] LABS: BASO % 0.6 %; BASO ABS # 0.08 K/uL (0-0.2); COMPLETE YES; EOS % 2.8 %; HEMATOCRIT 28.6 % (42-52); LYMPH % 8.6 %; LYMPH ABS # 1.06 K/uL (1.2-3.4); MEAN CELL VOLUME 90.8 fL (80-100); MEAN CORPUSCULAR HEMOGLOBIN 32.1 pg (25-34); MEAN CORPUSCULAR HGB CONC 35.3 g/dl (32-36); MEAN PLATELET VOLUME 11.3 fL (7.4-10.4); MONO % 12.1 %; NEUT % 74.9 %; PLATELET COUNT 129 K/uL (130-400); RED BLOOD COUNT 3.15 M/uL (4.7-6.1); WHITE BLOOD COUNT 12.33 K/uL (4.8-10.8)
[2017-04-05 06:22] LABS: INR 1.4 (0.9-1.1); PROTHROMBIN TIME (PATIENT) 15.7 SECONDS (9.0-12.0)
[2017-04-05] MEDS: FUROSEMIDE INJ 40 MG in SYRINGE 0 ML IV SCH (06:36)
[2017-04-05 06:50] LABS: BUN/CREATININE RATIO 18.6 (10-20); CALCIUM 9.2 mg/dl (8.5-10.1); CREATININE 1.4 mg/dl (0.60-1.40); POTASSIUM 4.1 mmol/L (3.5-5.1)
[2017-04-05 06:53] LABS: ALB/GLOB RATIO 0.5 (0.9-2)
[2017-04-05] MEDS: POTASSIUM CHLORIDE 20 MEQ TABCR PO SCH ×4 (09:54→21:13)
[2017-04-05] MEDS: METOPROLOL TARTRATE 50 MG TAB PO SCH ×2 (09:54→21:00)
[2017-04-05] MEDS: SPIRONOLACTONE 25 MG TAB PO SCH (09:54)
[2017-04-05] MEDS: INSULIN ASPART 100 UNITS/ML 3 ML PEN SC SCH ×4 (10:02→21:12)
[2017-04-05 10:50] LABS: MANUAL MICROSCOPIC REQUIRED? NO; REVIEW REQ? NO; URINE APPEARANCE CLEAR (CLEAR); URINE BILIRUBIN NEG (NEG); URINE COLOR YELLOW; URINE EPITHELIAL CELL AUTO 0-5 /lpf (0-5); URINE NITRITE NEG (NEG); UROBILINOGEN NEG (NEG)
[2017-04-05] MEDS ORDERED: LACTULOSE SYRUP 30 GM/45 ML UDP PO ONE (13:30)
--- NOTE | 2017-04-05 14:29 | PROGRESS NOTE ---
DATE: 04/05/2017 Today the patient is somewhat confused, but is responsive to questioning. On exam the incision is clean, dry and intact, very modest appreciable swelling, no fluctuance. Again no drainage. Nontender to palpation. He has reasonable strength to testing lower extremities. Vital signs are stable. T max 36.5. White count is 12.3 today. Platelets 129. ASSESSMENT: Status post incision and drainage lumbar spine. PLAN: At this time, I have concern that his white count seems to be creeping up. I do not appreciate any abnormal skin markings or evidence of infection lumbar spine of which I would have a low suspicion at this region secondary to the antibiotic beads placed at the time of his I\T\D. He was able to sit up yesterday in a chair and transfer with OT. He had no headaches throughout this activity yesterday. We will continue to monitor him closely.
[2017-04-05] MEDS: ACETAMINOPHEN 500 MG TAB PO PRN (17:35)
--- NOTE | 2017-04-05 20:29 | GASTROENTEROLOGY PROGRESS NOTE ---
DATE: 04/05/2017 I was contacted by Dr. Nielsen regarding Mr. Santiago. He has developed a degree of encephalopathy and has to re-evaluate the patient. He was seen previously during this hospitalization by Dr. Rubio. The patient was admitted for an infected fluid accumulation in his back following a back surgery several weeks ago. This has undergone drainage, but is complicated by a small CSF leak. The patient had developed increasing confusion. His laboratory studies show an elevation in his bilirubin at 8.6, which is up from admission on 03/24/2017; at that time it was 4.9. In addition his alkaline phosphatase is also elevated at 178. His ammonia level on admission was 40 and yesterday it was less than 10. Lipase was normal on admission. His white blood cell count has increased since 04/03/2017 and is currently 12.3, his value on admission was 8.9. Hemoglobin has essentially been stable in the low to mid 10 range. His vital signs currently are afebrile and it would not appear that the patient has had fever during his hospitalization. Cultures revealed coagulase negative staph from the lumbar drainage and the patient underwent peritoneal aspirate for ascites without evidence of bacterial growth. MEDICATIONS: The patient is currently on vancomycin and changed over to daptomycin. He is also on insulin, spironolactone, potassium supplements, Lasix and was recently restarted on lactulose at 30 grams (45 mL twice daily today). REVIEW OF SYSTEMS: Otherwise noncontributory. PHYSICAL EXAMINATION: GENERAL: Today the patient is awake and arousable, but somnolent. He does recognize me from prior evaluation. The patient is icteric. LUNGS: Overall clear to auscultation. HEART: Shows a systolic ejection murmur. ABDOMEN: Obese and nontender without rebound or guarding. I do not appreciate abdominal bruits. Abdominal exam is difficult to ascertain the presence of ascites. However, the abdomen is not tense. EXTREMITIES: Show +1 edema. There are compression boots on the patient. IMPRESSION: The patient with evidence of mental status changes, increasing bilirubin and white count, although the patient remains afebrile. There is a staph non-aureus organism for which he is currently being treated. The patient has a systolic ejection murmur. The source of the patient's bilirubin may have a lagging effect given the patient's infectious etiology, but this should be watched. The alkaline phosphatase is also climbing and at some point if these numbers persist abdominal imaging may be necessary. Also if the white count persists, increases, if there is any afebrile component, increase in abdominal girth or distention then reassessment for possible paracentesis may be necessary for cell count and organisms. The patient did have an echocardiogram on 03/28/2017, which showed no evidence of agitation with a left ventricular ejection fraction of 50-55%, right ventricle is moderately dilated. There is some thickening to the mitral valves although they open well and there is mild regurgitation. There is mild aortic stenosis noted without regurgitation. No evidence for pericardial effusion. I would continue lactulose at 45 mL twice daily with the end point of 3-4 pasty bowel movements and observation for clearing of mental status. Ammonia may not necessarily correlate with hepatic encephalopathy. If this is ineffective over several days, investigation for other sources of infection may be needed including biliary imaging. Rifaximin may be an alternative for the patient's hepatic encephalopathy. All questions were answered. MTDD
[2017-04-05] MEDS: LACTULOSE SYRUP 30 GM/45 ML UDP PO SCH ×2 (21:00→21:13)
[2017-04-05] MEDS: DOCUSATE SODIUM/SENNA 50/8.6MG TAB PO SCH ×2 (21:00→21:13)
[2017-04-06] VITALS (10 sets, daily range): BP systolic 97–114; BP diastolic 58–76; PULSE 60–73; TEMP 36.8–36.9; O2SAT 91–95
[2017-04-06] MEDS: LEVALBUTEROL 1.25MG/3ML NEB INH SCH ×4 (02:14→19:41)
--- NOTE | 2017-04-06 03:13 | PROGRESS NOTE ---
DATE: 04/05/2017 A 62-year-old male admitted with mental status changes and metabolic encephalopathy, thought to be related to his liver cirrhosis and also he was septic. His blood cultures grew Staphylococcus. He recently has had surgery for an L4-L5 disk and when he was readmitted there was a collection of fluid at the surgical site which also grew Staphylococcus. His medical problems also include sarcoidosis, arterial hypertension, type 2 diabetes mellitus, sleep apnea, chronic steroid therapy, thrombocytopenia and coagulopathy. His mental status remained altered. He is very sleepy. He is arousable, but he remains confused. He denies any headache. No dizziness. No chest pain, no shortness of breath. No abdominal pain. No nausea, no vomiting. This morning, he was having very frequent urination. He was quite uncomfortable. His bladder was scanned for over 400 mL of urine. A Verma catheter was placed. He continues to have bowel movements. He was complaining of pain in the right hip area. The patient is continued to be seen by Dr. Gray. PHYSICAL EXAMINATION: GENERAL: Well developed, in no distress. He is quite lethargic. VITAL SIGNS: Blood pressure 110/68, pulse 70, respiration 18, temperature 36.1, oxygen saturation 94% on 2 liter oxygen by nasal cannula. SKIN: Warm and dry. Jaundiced. HEENT: No mucosal abnormality. Scleral icterus. NECK: No JVD, no adenopathy. HEART: Regular heart sounds with 2/6 systolic murmur. LUNGS: Clear. ABDOMEN: Soft, nontender. There is still some drainage from both sides of previous paracentesis. MUSCULOSKELETAL: He is still having some low back pain. He has surgical dressing in place. His leg edema has markedly decreased. Also, the edema in his scrotum and penis have decreased. LABORATORY TESTS: WBC count 12,330, hemoglobin 10.1, hematocrit 28.6, platelet count 129,000. Sodium 133, potassium 4.1, chloride 98, CO2 31, BUN 26, creatinine 1.4, glucose 124, calcium 9.2, total bilirubin 8.6, AST 41, ALT 14, alkaline phosphatase 220, total protein 5.9, albumin 1.9. Urinalysis is normal. This was a cath specimen. There was minimal blood, but that is related to the Verma catheter. There is no evidence of any infection. ASSESSMENT: 1. Mental status changes. 2. Sepsis secondary to Staphylococcus. 3. Hepatic encephalopathy. 4. Infected surgical site which required reexploration and drainage of fluid collection which was growing Staphylococcus. 5. Liver cirrhosis. 6. Type 2 diabetes mellitus. 7. Sleep apnea. 8. Urinary retention. 9. Ascites. PLAN: 1. Continuing with his diuresis. 2. As noted, a Verma catheter was placed today. 3. I spoke with Dr. Monroe. The patient was seen by Dr. Monroe this afternoon. He was restarted on lactulose, 30 grams twice a day. 4. Dr. Gray will decide on the level of his activity. 5. There is a suspicion of CSF leak from the surgical site and the catheter was removed. 6. We will advance his activity as soon as Dr. Gray permits it. 7. We will continue monitoring his mental status and his laboratory tests.
[2017-04-06] MEDS: DAPTOmycin IV 600 MG in SODIUM CHLORIDE 0.9% 50ML 50 ML IV SCH (05:38)
[2017-04-06] MEDS: FUROSEMIDE INJ 40 MG in SYRINGE 0 ML IV SCH (06:30)
[2017-04-06 06:48] LABS: INR 1.4 (0.9-1.1)
[2017-04-06 06:57] LABS: BASO % 0.6 %; BASO ABS # 0.06 K/uL (0-0.2); COMPLETE YES; EOS % 4.3 %; IG% 1.1 %; LYMPH % 10.3 %; LYMPH ABS # 0.97 K/uL (1.2-3.4); MEAN CELL VOLUME 92.3 fL (80-100); MEAN CORPUSCULAR HGB CONC 35.8 g/dl (32-36); MONO % 9.7 %; PLATELET COUNT 113 K/uL (130-400); RED BLOOD COUNT 3.36 M/uL (4.7-6.1); WHITE BLOOD COUNT 9.43 K/uL (4.8-10.8)
[2017-04-06 07:24] LABS: ALB/GLOB RATIO 0.4 (0.9-2); BUN/CREATININE RATIO 18.5 (10-20); CALCIUM 9.4 mg/dl (8.5-10.1); CREATININE 1.4 mg/dl (0.60-1.40); POTASSIUM 3.9 mmol/L (3.5-5.1)
--- NOTE | 2017-04-06 08:15 | PROGRESS NOTE ---
DATE: 04/06/2017 DATE: 04/06/2017. SUBJECTIVE: He states today he has no significant discomfort. He is alert to place. He knows who I am through discussions. OBJECTIVE: On exam, vital signs are stable. T-max 36.8. White count 9, hematocrit 31.0. Dressing has been changed. It is clean, dry and intact. No evidence of drainage. There is no erythema appreciable. Nontender to palpation. He has good strength to testing lower extremities. ASSESSMENT: Status post lumbar decompression and fusion. PLAN: At this time, I would continue to recommend transfer from bed to chair as tolerated, ambulate about the room as tolerated.
[2017-04-06] MEDS: SPIRONOLACTONE 25 MG TAB PO SCH (08:39)
[2017-04-06] MEDS: ACETAMINOPHEN 500 MG TAB PO PRN ×2 (08:39→18:45)
[2017-04-06] MEDS: POTASSIUM CHLORIDE 20 MEQ TABCR PO SCH ×3 (08:40→21:13)
[2017-04-06] MEDS: METOPROLOL TARTRATE 50 MG TAB PO SCH ×2 (08:41→21:17)
[2017-04-06] MEDS: LACTULOSE SYRUP 30 GM/45 ML UDP PO SCH ×2 (08:45→21:12)
[2017-04-06] MEDS: INSULIN ASPART 100 UNITS/ML 3 ML PEN SC SCH ×4 (09:39→21:20)
--- NOTE | 2017-04-06 20:07 | GASTROENTEROLOGY PROGRESS NOTE ---
DATE: 04/06/2017 SUBJECTIVE: The patient was seen and he was accompanied by his family members. The patient is actually more lucid today, arousable, seemed to recognize me and provided a thumbs up when I asked. The patient is icteric. He did have response to the lactulose with a reported explosive bowel movement, but I believe that this may have improved some of his cognitive function. LABORATORY STUDIES: Today; show a white count of 9.43 which is down from 12.33, his hemoglobin is 11.1 and platelets are 113,000. His serum chemistries show a BUN and creatinine of 26 and 1.4, potassium 3.9, total bilirubin is 8.5, ammonia level this morning was less than 10, albumin 2.0, alkaline phosphatase 254, AST 46 and ALT 18. Alkaline phosphatase is slightly up and bilirubin is stable. PHYSICAL EXAMINATION: GENERAL: The patient is icteric. HEENT: Sclerae are icteric and skin is icteric. Oral mucosa is parched. HEART: Normal S1, S2. ABDOMEN: Soft, protuberant, nontender and nondistended with good bowel sounds. EXTREMITIES: Without clubbing, cyanosis or edema. RECTAL: Deferred at this time. VITAL SIGNS: Today; he is afebrile, blood pressure 108/67, 91% on room air, respirations rate 16 and heart rate of 60. IMPRESSION: The patient with a history of chronic liver disease with cirrhosis that may be multifactorial including sarcoid, alcohol and possibly from cor pulmonale. The patient's mental status has improved with less confusion although the patient is slightly somnolent. Mornings seem to be better for him. Would continue the current dose of lactulose and antibiotics for the back fluid collection. Goal is to titrate lactulose to create 3-4 pasty bowel movements daily. If this is not achievable, then consideration of a trial of rifaximin 550 mg twice daily and perhaps three times daily if lactulose is ineffective. We will follow with you. We would also trend liver function tests and if the white count rebounds, fever develops or ascites becomes more problematic then would recommend an ultrasound with portal venous Dopplers would be helpful and consideration for an additional diagnostic and therapeutic paracentesis. [facility]
[2017-04-06] MEDS: DOCUSATE SODIUM/SENNA 50/8.6MG TAB PO SCH (21:18)
--- NOTE | 2017-04-06 23:28 | PROGRESS NOTE ---
DATE: 04/06/2017 SUBJECTIVE: A 62-year-old male with mental status changes and encephalopathy secondary to liver cirrhosis and also sepsis. He had surgery for an L4-L5 disc and developed subsequent surgery at the surgical site with collection of fluid that also grew Staphylococcus. Two blood cultures also grew Staphylococcus. He has liver cirrhosis, sarcoidosis, type 2 diabetes mellitus. He is on chronic steroid therapy. He also had urinary retention and required a Verma catheter. I saw Mr. Santiago early this morning. He was resting comfortably. He was afebrile. He denied any headache or dizziness. No chest pain, no shortness of breath. No abdominal pain, no nausea, no vomiting. He was not having any significant pain. When I came back and saw him this evening, his condition had markedly improved. He was sitting up in the chair. He was completely awake and alert and oriented and conversant. He had no complaints whatsoever. He tolerated his diet well today. PHYSICAL EXAMINATION: GENERAL: Well-developed in no distress. VITAL SIGNS: Blood pressure 108/67, pulse 60, respirations 18, temperature 36.9, oxygen saturation 91% on room air. SKIN: Warm and dry. No rash. Jaundiced. HEENT: No mucosal abnormality. He does have conjunctival icterus. NECK: No JVD. No adenopathy. HEART: Regular heart sounds with 2/6 systolic murmur. LUNGS: Clear. ABDOMEN: Soft, nontender. BACK: Surgical dressing in place. EXTREMITIES: Minimal edema. No clubbing or cyanosis. TODAY'S LABORATORY TESTS: WBC count 9430, hemoglobin 11.1, hematocrit 31%, platelet count 113,000. Sodium 135, potassium 3.9, chloride 99, CO2 32, BUN 26, creatinine 1.4, glucose 114, calcium 9.4, total bilirubin 8.5, AST 46, ALT 18, alkaline phosphatase 254, total protein 6.5, albumin 2.0. ASSESSMENT: 1. Metabolic encephalopathy secondary to liver cirrhosis and sepsis. 2. Staphylococcus sepsis. 3. Status post L4-L5 disc surgery with subsequent infection at the surgical site. 4. Liver cirrhosis. 5. History of atrial septal defect, which was repaired. 6. Scoliosis. 7. Type 2 diabetes mellitus. 8. Urinary retention. PLAN: 1. As noted, this afternoon, his condition has markedly improved. 2. Continuing the same medications, he is on daptomycin. 3. Increasing his activity gradually. 4. We will remove his Verma in the morning. 5. The intent is for him to go to [facility]. We will make sure he is in a stable condition prior to that.
[2017-04-07] VITALS (9 sets, daily range): BP systolic 89–109; BP diastolic 53–70; PULSE 62–80; TEMP 36.4–36.9; O2SAT 91–96
[2017-04-07] MEDS: ACETAMINOPHEN 500 MG TAB PO PRN ×5 (01:44→22:33)
[2017-04-07] MEDS: LEVALBUTEROL 1.25MG/3ML NEB INH SCH ×5 (02:21→19:31)
[2017-04-07] MEDS: DAPTOmycin IV 600 MG in SODIUM CHLORIDE 0.9% 50ML 50 ML IV SCH (05:34)
[2017-04-07] MEDS: FUROSEMIDE INJ 40 MG in SYRINGE 0 ML IV SCH (06:33)
[2017-04-07 08:53] LABS: BASO % 0.8 %; BASO ABS # 0.07 K/uL (0-0.2); COMPLETE YES; EOS % 5.8 %; HEMATOCRIT 31.5 % (42-52); IG% 0.9 %; LYMPH % 10.1 %; LYMPH ABS # 0.89 K/uL (1.2-3.4); MEAN CELL VOLUME 93.5 fL (80-100); MEAN CORPUSCULAR HEMOGLOBIN 32.6 pg (25-34); MEAN CORPUSCULAR HGB CONC 34.9 g/dl (32-36); MEAN PLATELET VOLUME 11.3 fL (7.4-10.4); MONO % 10.7 %; NEUT % 71.7 %; PLATELET COUNT 109 K/uL (130-400); RED BLOOD COUNT 3.37 M/uL (4.7-6.1); WHITE BLOOD COUNT 8.85 K/uL (4.8-10.8)
[2017-04-07] MEDS: SPIRONOLACTONE 25 MG TAB PO SCH (09:03)
[2017-04-07] MEDS: METOPROLOL TARTRATE 50 MG TAB PO SCH ×2 (09:05→21:00)
[2017-04-07] MEDS: POTASSIUM CHLORIDE 20 MEQ TABCR PO SCH ×3 (09:07→21:48)
[2017-04-07] MEDS: LACTULOSE SYRUP 30 GM/45 ML UDP PO SCH ×2 (09:10→21:48)
[2017-04-07] MEDS: INSULIN ASPART 100 UNITS/ML 3 ML PEN SC SCH ×4 (09:11→21:55)
[2017-04-07] MEDS: SODIUM CHLORIDE 0.65% NA SOLN 45 ML (OCEAN) PRN (09:13)
[2017-04-07 09:26] LABS: ALB/GLOB RATIO 0.4 (0.9-2); BUN/CREATININE RATIO 20.9 (10-20); CREATININE 1.3 mg/dl (0.60-1.40); POTASSIUM 3.9 mmol/L (3.5-5.1)
--- NOTE | 2017-04-07 10:36 | PROGRESS NOTE ---
DATE: 04/07/2017 DATE: 04/07/2017. SUBJECTIVE: The patient is much more comfortable today. He has been up in the chair for 3 hours, states he tolerated this well without difficulty. Denies headaches, nausea or vomiting. Has some lumbar soreness but is quite tolerable. Vital signs stable. T-max 36.9. White count 8.8. OBJECTIVE: On exam, he has reasonable strength to testing and does appear comfortable. ASSESSMENT: Status post incision and drainage lumbar spine. PLAN: At this time, will continue to encourage bed to chair as tolerated with ambulation progressing as tolerated.
--- NOTE | 2017-04-07 16:16 | PROGRESS NOTE ---
DATE: 04/07/2017 SUBJECTIVE: The patient is more awake today and oriented to person, place and time. The patient reports that he had 6 bowel movements today on the lactulose. His white blood cell count has returned to normal at 8.85, hemoglobin is stable at 11. PHYSICAL EXAMINATION: NEUROLOGICAL: The patient has paula complexion and has some very mild asterixis. IMPRESSION: The patient's encephalopathy has improved with lactulose, which will be continued. Dr. Osborne will be covering for the weekend.
--- NOTE | 2017-04-07 20:23 | Infectious Disease Progress Nt ---
Progress Note Date of Service April 07, 2017. Subjective Pt evaluation today including: conversation w/ patient, physical exam, chart review, lab review, review of studies, conversation w/ investment consultant, review of inpatient medication list Patient feeling better, and mental status has returned to baseline. Remains afebrile. Back pain controlled. Tolerating antibiotic without apparent difficulty. All Other Systems: Reviewed and Negative Medications Current Inpatient Medications Medications (Trade) Dose Ordered Sig/Nathalia Route Start Time Stop Time Status Last Admin Dose Admin Prednisone (PredniSONE TAB) 10 mg QAM PO 03/25/17 09:00 04/24/17 08:59 04/07/17 09:04 10 MG Glucose (Glucose 40% Gel) 15-30 GRAMS 15 GRAMS... UD PRN PO 03/24/17 22:45 04/23/17 22:44 Glucose (Glucose Chew Tab) 4-8 Tablets 4 Tabl... UD PRN PO 03/24/17 22:45 04/23/17 22:44 Dextrose (Dextrose 50% 50ML Syringe) 25-50ML OF 50% DW IV FOR... UD PRN IV 03/24/17 22:45 04/23/17 22:44 Glucagon 1 mg 1 mg UD PRN SQ 03/24/17 22:45 04/23/17 22:44 Ondansetron HCl/ Dextrose (Zofran Inj/D5 50ml) 54 ml @ 200 mls/hr Q4H PRN IV 03/25/17 05:30 04/24/17 05:29 04/03/17 15:27 200 MLS/HR Acetaminophen (Tylenol Tab) 500 mg Q4H PRN PO 03/25/17 07:45 04/24/17 07:44 04/07/17 18:44 500 MG Hydromorphone HCl (Dilaudid Inj) 0.5 mg Q4H PRN IV 03/26/17 02:30 04/09/17 02:29 04/03/17 05:46 0.5 MG Levalbuterol (Xopenex 1.25MG/ 3ML Neb) 1.25 mg Q6R INH 03/27/17 09:00 04/26/17 08:59 04/07/17 19:31 1.25 MG Sodium Chloride ([place] Nasal [place]) 1 sprays PRN PRN NA 03/28/17 13:00 04/27/17 12:59 04/07/17 09:13 1 SPRAYS Metoprolol Tartrate (Lopressor Tab) 50 mg BID PO 03/28/17 21:00 04/27/17 20:59 04/07/17 09:05 50 MG Bisacodyl (Dulcolax Supp) 10 mg DAILY PRN NV 03/29/17 12:30 04/28/17 12:29 04/02/17 20:03 10 MG Magnesium Hydroxide (Milk Of Magnesia Susp) 30 ml DAILY PRN PO 03/29/17 12:30 04/28/17 12:29 Naloxone HCl (Narcan Inj) 0.1 mg Q5M PRN IV 03/29/17 12:30 04/28/17 12:29 Senna/Docusate Sodium (Senokot S Tab) 2 tab HS PO 03/29/17 21:00 04/28/17 20:59 04/06/17 21:18 2 TAB Sodium Biphosphate/ Sodium Phosphate (Fleet Enema) 132 ml ONE PRN NV 03/29/17 12:30 04/28/17 12:29 Insulin Aspart (novoLOG ASPART) SLIDING SCALE G... ACHS SC 03/30/17 17:15 04/29/17 17:14 04/07/17 18:43 5 UNITS Spironolactone (Aldactone Tab) 25 mg QAM PO 03/31/17 09:00 04/30/17 08:59 04/07/17 09:03 25 MG Heparin Sodium (Porcine) (Heparin 10 Unit/ ml 5 ml Flush) 5 ml PRN PRN FLUSH 03/31/17 16:15 04/30/17 16:14 04/07/17 10:46 5 ML Potassium Chloride 20 meq 20 meq TID PO 04/01/17 14:00 05/01/17 13:59 04/07/17 13:20 20 MEQ Daptomycin 600 mg/ Sodium Chloride 62 ml @ 120 mls/hr DAILY@0600 IV 04/04/17 06:00 05/05/17 06:30 04/07/17 05:34 120 MLS/HR Furosemide/Syringe (Lasix Inj/ Syringe) 4 ml @ 4 mls/min DAILY@0700 IV 04/05/17 07:00 05/05/17 06:59 04/07/17 06:33 4 MLS/MIN Lactulose (Chronulac Syrup) 30 gm BID PO 04/05/17 21:00 05/05/17 20:59 04/07/17 09:10 30 GM Objective Vital Signs Date Time Temp Pulse Resp B/P Pulse Ox O2 Delivery O2 Flow Rate FiO2 04/07/17 19:30 71 16 94 Room Air 04/07/17 15:17 67 16 91 Room Air 04/07/17 15:02 36.4 67 18 97/61 93 Room Air 04/07/17 08:03 62 16 91 Room Air 04/07/17 07:45 95 Room Air 04/07/17 07:03 36.9 65 18 109/70 95 Room Air 04/07/17 02:21 68 16 93 Room Air 04/07/17 01:15 Room Air 04/06/17 22:47 36.8 64 16 97/58 93 Room Air 04/06/17 21:15 73 114/69 Physical Exam General Appearance: WD/WN, no apparent distress Eyes: normal inspection, EOMI, sclerae normal ENT: normal ENT inspection, pharynx normal Neck: supple, no adenopathy, trachea midline Respiratory/Chest: chest non-tender, lungs clear, normal breath sounds, no respiratory distress Cardiovascular: regular rate, rhythm, no gallop, no murmur Abdomen: normal bowel sounds, non tender, soft, no organomegaly Extremities: non-tender, no calf tenderness Neurologic/Psychiatric: alert, oriented x 3 Skin: normal color, no rash Lymphatic: no adenopathy Laboratory Results Last 24 Hours Test 04/06/17 21:10 04/07/17 07:28 04/07/17 07:58 04/07/17 11:55 Bedside Glucose 158 mg/dl 112 mg/dl 168 mg/dl White Blood Count 8.85 K/uL Red Blood Count 3.37 M/uL Hemoglobin 11.0 g/dL Hematocrit 31.5 % Mean Corpuscular Volume 93.5 fL Mean Corpuscular Hemoglobin 32.6 pg Mean Corpuscular Hemoglobin Concent 34.9 g/dl Platelet Count 109 K/uL Mean Platelet Volume 11.3 fL Neutrophils (%) (Auto) 71.7 % Lymphocytes (%) (Auto) 10.1 % Monocytes (%) (Auto) 10.7 % Eosinophils (%) (Auto) 5.8 % Basophils (%) (Auto) 0.8 % Neutrophils # (Auto) 6.35 K/uL Lymphocytes # (Auto) 0.89 K/uL Monocytes # (Auto) 0.95 K/uL Eosinophils # (Auto) 0.51 K/uL Basophils # (Auto) 0.07 K/uL RDW Standard Deviation 60.9 fL RDW Coefficient of Variation 18.2 % Immature Granulocyte % (Auto) 0.9 % Immature Granulocyte # (Auto) 0.08 K/uL Sodium Level 133 mmol/L Potassium Level 3.9 mmol/L Chloride Level 95 mmol/L Carbon Dioxide Level 31 mmol/L Anion Gap 7.0 mmol/L Blood Urea Nitrogen 27 mg/dl Creatinine 1.30 mg/dl Est Creatinine Clear Calc Drug Dose 64.6 ml/min Estimated GFR () 66.8 Estimated GFR (Non- 57.7 BUN/Creatinine Ratio 20.9 Random Glucose 108 mg/dl Calcium Level 9.0 mg/dl Total Bilirubin 7.3 mg/dl Aspartate Amino Transf (AST/SGOT) 50 U/L Alanine Aminotransferase (ALT/SGPT) 19 U/L Alkaline Phosphatase 236 U/L Total Protein 6.6 gm/dl Albumin 2.0 gm/dl Globulin 4.6 gm/dl Albumin/Globulin Ratio 0.4 Test 04/07/17 17:01 Bedside Glucose 167 mg/dl Assessment and Plan 62-year-old male with multiple medical comorbidities including sarcoidosis and severe hepatic disease, now with coagulase negative staphylococcal sepsis with probable epidural abscess following lumbar laminectomy. Patient now status post surgical debridement. Patient requires prolonged IV antibiiotics\ and should continue on datomycin with serial CPK levels. Will follow.
[2017-04-07] MEDS: DOCUSATE SODIUM/SENNA 50/8.6MG TAB PO SCH (21:00)
--- NOTE | 2017-04-07 21:52 | PROGRESS NOTE ---
DATE: 04/07/2017 A 62-year-old male with multiple problems includin. Encephalopathy. 2. Sepsis secondary to staphylococcus. 3. Liver cirrhosis. 4. Status post surgery for herniated L4-L5 disc. 5. Postoperative infection at the site of the surgery with fluid collection that also grew staphylococcus. 6. Suspected CSF leak. 7. Sarcoidosis. 8. Type 2 diabetes mellitus. 9. Atrial septal defect which was repaired in 2014. 10. Urinary retention. Resolved. 11. Sleep apnea. His condition has markedly improved since yesterday. His mental status is normal. He is quite awake and alert and oriented. He denied any headache or dizziness. No chest pain, no shortness of breath. Denied any abdominal pain, no nausea, no vomiting. No back pain. He is having some pain in the right buttocks area. His leg edema has resolved. The edema in his scrotum and penis also has resolved. PHYSICAL EXAMINATION: GENERAL: Well developed, in no distress. VITAL SIGNS: Blood pressure 109/70, pulse 65, respiration 18, temperature 36.9, oxygen saturation 95% on room air. SKIN: Warm and dry. Jaundiced. HEENT: Scleral icterus. No mucosal abnormality. NECK: No JVD. No adenopathy. HEART: Regular heart sounds with 2/6 systolic murmur. LUNGS: Clear. ABDOMEN: Soft, nontender. BACK: No spinal tenderness. Surgical dressing. EXTREMITIES: Resolved edema. No clubbing, no cyanosis. GENITALIA: Resolved edema. TODAY'S LABORATORY TESTS: WBC count 8850, hemoglobin 11, hematocrit 31.5, platelet count 109,000. Sodium 133, potassium 3.9, chloride 95, CO2 of 31, BUN 26, creatinine 1.3, glucose 108, calcium 9.0, total bilirubin 7.3, AST 50, ALT 19, alkaline phosphatase 236, total protein 6.6, albumin 2.0. ASSESSMENT: 1. Encephalopathy, multifactorial, related to his staphylococcus sepsis and surgical site infection and liver cirrhosis. 2. Thrombocytopenia. 3. Coagulopathy secondary to his liver disease. 4. Staphylococcus sepsis. 5. Sleep apnea. 6. Type 2 diabetes mellitus. 7. Sarcoidosis with pulmonary and extrapulmonary manifestations. 8. Status post atrial septal defect repair. PLAN: 1. His condition is continuing to improve. 2. Continue with his therapies. 3. He will continue to stay on daptomycin for approximately 6 weeks. 4. The plan is for him to go to [facility]. We are working on getting that approved through his insurance company. If everything is lined up, then I expect transferring him tomorrow.
[2017-04-08] VITALS (11 sets, daily range): BP systolic 96–128; BP diastolic 56–78; PULSE 62–89; TEMP 36.9–37.4; O2SAT 90–96
[2017-04-08] MEDS: LEVALBUTEROL 1.25MG/3ML NEB INH SCH ×4 (02:22→20:26)
[2017-04-08] MEDS: ACETAMINOPHEN 500 MG TAB PO PRN ×2 (02:57→08:50)
[2017-04-08] MEDS: DAPTOmycin IV 600 MG in SODIUM CHLORIDE 0.9% 50ML 50 ML IV SCH (05:51)
[2017-04-08 06:14] LABS: HEMATOCRIT 29.4 % (42-52); MEAN CELL VOLUME 92.5 fL (80-100); MEAN CORPUSCULAR HEMOGLOBIN 32.7 pg (25-34); MEAN CORPUSCULAR HGB CONC 35.4 g/dl (32-36); RED BLOOD COUNT 3.18 M/uL (4.7-6.1); WHITE BLOOD COUNT 10.57 K/uL (4.8-10.8)
[2017-04-08 06:28] LABS: MEAN PLATELET VOLUME 12.1 fL (7.4-10.4); PLATELET COUNT 123 K/uL (130-400)
[2017-04-08 06:29] LABS: BASO % 0.9 %; BASO ABS # 0.09 K/uL (0-0.2); COMPLETE YES; EOS % 4.5 %; IG% 0.9 %; LYMPH % 9.3 %; LYMPH ABS # 0.98 K/uL (1.2-3.4); MONO % 9.7 %; NEUT % 74.7 %; PLT ESTIMATE DECREASED; POLYCHROMASIA 1+; TARGET CELLS 1+; TOXIC GRANULATION 3+
[2017-04-08] MEDS: FUROSEMIDE INJ 40 MG in SYRINGE 0 ML IV SCH (06:30)
[2017-04-08 06:45] LABS: ALB/GLOB RATIO 0.4 (0.9-2); BUN/CREATININE RATIO 16.6 (10-20); CALCIUM 8.7 mg/dl (8.5-10.1); CREATININE 1.4 mg/dl (0.60-1.40); POTASSIUM 4.3 mmol/L (3.5-5.1)
[2017-04-08] MEDS: METOPROLOL TARTRATE 50 MG TAB PO SCH ×2 (08:50→21:08)
[2017-04-08] MEDS: POTASSIUM CHLORIDE 20 MEQ TABCR PO SCH ×3 (08:50→21:07)
[2017-04-08] MEDS: LACTULOSE SYRUP 30 GM/45 ML UDP PO SCH ×2 (08:51→21:08)
[2017-04-08] MEDS: SPIRONOLACTONE 25 MG TAB PO SCH (08:51)
[2017-04-08] MEDS: INSULIN ASPART 100 UNITS/ML 3 ML PEN SC SCH ×4 (08:53→21:12)
[2017-04-08] MEDS ORDERED: OXYCODONE HCL IR 5 MG TAB (IMMEDIATE RELEASE) PO STA (10:38)
[2017-04-08] MEDS ORDERED: OXYCODONE HCL IR 5 MG TAB (IMMEDIATE RELEASE) PO PRN (10:45)
--- NOTE | 2017-04-08 15:27 | Gastroenterology Progress Note ---
Progress Note Date of Service: April 08, 2017 Subjective Pt evaluation today including: conversation w/ patient, conversation w/ family () CC f/u mental status changes, cirrhosis HPI Pt alert, Denies abd pain. States he is having more than 5 bms per 24 hour period but does not want to cut back on the lactulose. Per patient appetite somewhat off his usual but his thinks eating adequately. Review of Systems Respiratory: + shortness of breath (with walking around patten) Cardiac: No chest pain Medications Current Inpatient Medications Medications (Trade) Dose Ordered Sig/Nathalia Route Start Time Stop Time Status Last Admin Dose Admin Prednisone (PredniSONE TAB) 10 mg QAM PO 03/25/17 09:00 04/24/17 08:59 04/08/17 08:51 10 MG Glucose (Glucose 40% Gel) 15-30 GRAMS 15 GRAMS... UD PRN PO 03/24/17 22:45 04/23/17 22:44 Glucose (Glucose Chew Tab) 4-8 Tablets 4 Tabl... UD PRN PO 03/24/17 22:45 04/23/17 22:44 Dextrose (Dextrose 50% 50ML Syringe) 25-50ML OF 50% DW IV FOR... UD PRN IV 03/24/17 22:45 04/23/17 22:44 Glucagon 1 mg 1 mg UD PRN SQ 03/24/17 22:45 04/23/17 22:44 Ondansetron HCl/ Dextrose (Zofran Inj/D5 50ml) 54 ml @ 200 mls/hr Q4H PRN IV 03/25/17 05:30 04/24/17 05:29 04/03/17 15:27 200 MLS/HR Acetaminophen (Tylenol Tab) 500 mg Q4H PRN PO 03/25/17 07:45 04/24/17 07:44 04/08/17 08:50 500 MG Levalbuterol (Xopenex 1.25MG/ 3ML Neb) 1.25 mg Q6R INH 03/27/17 09:00 04/26/17 08:59 04/08/17 14:15 1.25 MG Sodium Chloride ([place] Nasal [place]) 1 sprays PRN PRN NA 03/28/17 13:00 04/27/17 12:59 04/07/17 09:13 1 SPRAYS Metoprolol Tartrate (Lopressor Tab) 50 mg BID PO 03/28/17 21:00 04/27/17 20:59 04/07/17 09:05 50 MG Bisacodyl (Dulcolax Supp) 10 mg DAILY PRN [place] 03/29/17 12:30 04/28/17 12:29 04/02/17 20:03 10 MG Magnesium Hydroxide (Milk Of Magnesia Susp) 30 ml DAILY PRN PO 03/29/17 12:30 04/28/17 12:29 Naloxone HCl (Narcan Inj) 0.1 mg Q5M PRN IV 03/29/17 12:30 04/28/17 12:29 Senna/Docusate Sodium (Senokot S Tab) 2 tab HS PO 03/29/17 21:00 04/28/17 20:59 04/06/17 21:18 2 TAB Sodium Biphosphate/ Sodium Phosphate (Fleet Enema) 132 ml ONE PRN [place] 03/29/17 12:30 04/28/17 12:29 Insulin Aspart (novoLOG ASPART) SLIDING SCALE G... ACHS SC 03/30/17 17:15 04/29/17 17:14 04/08/17 12:58 4 UNITS Spironolactone (Aldactone Tab) 25 mg QAM PO 03/31/17 09:00 04/30/17 08:59 04/08/17 08:51 25 MG Heparin Sodium (Porcine) (Heparin 10 Unit/ ml 5 ml Flush) 5 ml PRN PRN FLUSH 03/31/17 16:15 04/30/17 16:14 04/08/17 06:30 5 ML Potassium Chloride 20 meq 20 meq TID PO 04/01/17 14:00 05/01/17 13:59 04/08/17 13:49 20 MEQ Daptomycin 600 mg/ Sodium Chloride 62 ml @ 120 mls/hr DAILY@0600 IV 04/04/17 06:00 05/05/17 06:30 04/08/17 05:51 120 MLS/HR Furosemide/Syringe (Lasix Inj/ Syringe) 4 ml @ 4 mls/min DAILY@0700 IV 04/05/17 07:00 05/05/17 06:59 04/08/17 06:30 4 MLS/MIN Lactulose (Chronulac Syrup) 30 gm BID PO 04/05/17 21:00 05/05/17 20:59 04/08/17 08:51 30 GM Oxycodone HCl (Roxicodone Immediate Rel Tab) 5 mg Q4H PRN PO 04/08/17 10:45 04/22/17 10:44 Objective Vital Signs Date Time Temp Pulse Resp B/P Pulse Ox O2 Delivery O2 Flow Rate FiO2 04/08/17 14:10 72 14 95 Room Air 04/08/17 11:51 37.1 62 16 128/78 96 Room Air 04/08/17 09:15 95 Room Air 04/08/17 08:04 36.9 72 16 99/60 95 Room Air 04/08/17 07:44 72 16 95 Room Air 04/08/17 07:30 Room Air 04/08/17 06:29 96/57 04/07/17 23:33 80 91/53 04/07/17 23:30 Room Air 04/07/17 23:10 36.9 69 20 89/53 96 Room Air 04/07/17 19:30 71 16 94 Room Air 04/07/17 15:25 Room Air Physical Exam General Appearance: WD/WN, no apparent distress Respiratory/Chest: normal breath sounds, no respiratory distress Cardiovascular: regular rate, rhythm Abdomen: normal bowel sounds, non tender, soft, + pertinent finding (moderate distension from ascites, 2 drain bags on previous paracentesis sites. ) Laboratory Results Last 24 Hours Test 04/07/17 17:01 04/07/17 20:44 04/08/17 05:35 04/08/17 08:03 Bedside Glucose 167 mg/dl 166 mg/dl 82 mg/dl White Blood Count 10.57 K/uL Red Blood Count 3.18 M/uL Hemoglobin 10.4 g/dL Hematocrit 29.4 % Mean Corpuscular Volume 92.5 fL Mean Corpuscular Hemoglobin 32.7 pg Mean Corpuscular Hemoglobin Concent 35.4 g/dl Platelet Count 123 K/uL Mean Platelet Volume 12.1 fL Neutrophils (%) (Auto) 74.7 % Lymphocytes (%) (Auto) 9.3 % Monocytes (%) (Auto) 9.7 % Eosinophils (%) (Auto) 4.5 % Basophils (%) (Auto) 0.9 % Neutrophils # (Auto) 7.90 K/uL Lymphocytes # (Auto) 0.98 K/uL Monocytes # (Auto) 1.03 K/uL Eosinophils # (Auto) 0.48 K/uL Basophils # (Auto) 0.09 K/uL RDW Standard Deviation 61.5 fL RDW Coefficient of Variation 18.6 % Immature Granulocyte % (Auto) 0.9 % Immature Granulocyte # (Auto) 0.09 K/uL Toxic Granulation 3+ Platelet Estimate DECREASED Polychromasia 1+ Basophilic Stippling 1+ Target Cells 1+ Sodium Level 133 mmol/L Potassium Level 4.3 mmol/L Chloride Level 97 mmol/L Carbon Dioxide Level 31 mmol/L Anion Gap 5.0 mmol/L Blood Urea Nitrogen 23 mg/dl Creatinine 1.40 mg/dl Est Creatinine Clear Calc Drug Dose 59.4 ml/min Estimated GFR () 61.1 Estimated GFR (Non- 52.7 BUN/Creatinine Ratio 16.6 Random Glucose 95 mg/dl Calcium Level 8.7 mg/dl Total Bilirubin 7.3 mg/dl Aspartate Amino Transf (AST/SGOT) 54 U/L Alanine Aminotransferase (ALT/SGPT) 20 U/L Alkaline Phosphatase 231 U/L Total Protein 6.5 gm/dl Albumin 2.0 gm/dl Globulin 4.5 gm/dl Albumin/Globulin Ratio 0.4 Test 04/08/17 12:01 Bedside Glucose 134 mg/dl Assessment and Plan Mental status changes-resolved--could be from hepatic encephalopathy in combination with sepsis Hepatic encephalopathy--may have a component of this despite normal ammonias. Continue lactulose Ascites--s/p paracenteis twice, no infection, cytology pending, consistent with portal HTN cirrhosis--patient has not had full workup for etiology but sarcoidosis and ETOH and SANTOS can all be causative-- recommend complete abstinence from ETOH. elevated LFTs--stable Normoacytic anemia--stable-- thromobocytopenia--likely from splenomegaly from portal HTN
[2017-04-08] MEDS: ONDANSETRON INJ 8 MG in DEXTROSE 5% 50ML 50 ML IV PRN (18:24)
[2017-04-08] MEDS: DOCUSATE SODIUM/SENNA 50/8.6MG TAB PO SCH (21:08)
--- NOTE | 2017-04-08 23:00 | PROGRESS NOTE ---
DATE: 04/08/2017 SUBJECTIVE: A 62-year-old male with encephalopathy secondary to Staphylococcus sepsis and hepatic encephalopathy. He has multiple problems including recent surgery for herniated L4-L5 disk. Subsequently, he developed a fluid collection in the surgical site. Culture from the site did grow Staphylococcus. He was taken to the operating room and had an incision and debridement of the area. Gentamicin and vancomycin seeds were also placed. The patient has been treated with IV antibiotics. Initially vancomycin then daptomycin. He is also diabetic. Has sarcoidosis. He has chronic thrombocytopenia. He has a coagulopathy secondary to his liver disease. He has sleep apnea. He is on chronic steroid therapy. He denied any headache. No dizziness. Denied any chest pain, no shortness of breath. No abdominal pain, no nausea, no vomiting. He is having pain in the right side of his back, over the 11th and 12 rib areas. His leg edema has subsided. His scrotal edema also has subsided. PHYSICAL EXAMINATION: GENERAL: Well developed in no distress. VITAL SIGNS: Blood pressure of 99/60, pulse 72, respirations 16, temperature 36.9. SKIN: Warm and dry. No rash. HEENT: He has jaundice. NECK: No adenopathy, no thyromegaly, no JVD. HEART: Regular heart sounds with 2/6 systolic murmur. LUNGS: Clear. ABDOMEN: Soft, nontender. He does have ascites. BACK: Surgical dressing in place. Localized tenderness over the 11th and 12th rib area on the right side. EXTREMITIES: No edema, clubbing, or cyanosis. TODAY'S LABORATORY TESTS: WBC count 10,570, hemoglobin 10.4, hematocrit 29.4, platelet count 123,000. Sodium 133, potassium 4.3, chloride 97, CO2 31, BUN 23, creatinine 1.4, glucose 95. Calcium 8.7, total bilirubin 7.3, AST 54, ALT 20, alkaline phosphatase 231, total protein 6.5, and albumin 2.0. ASSESSMENT: 1. Encephalopathy secondary to sepsis and liver cirrhosis. 2. Status post L4-L5 disk herniation surgery. 3. Status post infection at the surgical site. 4. Liver cirrhosis. 5. Sarcoidosis. 6. Chronic steroid therapy. 7. Type 2 diabetes mellitus. 8. Sleep apnea. PLAN: 1. Continuing the same medications. 2. Continue monitoring his laboratory tests. 3. Was able to ambulate with him this morning the length of 1 hallway. He did become tired but he tolerated the walk. 4. Anticipating transfer to [facility]. All the necessary authorizations were obtained. No bed was available today. Hoping to be able to transfer him tomorrow.
[2017-04-09] VITALS (7 sets, daily range): BP systolic 108–113; BP diastolic 67–76; PULSE 68–84; TEMP 36.7–36.9; O2SAT 92–96
[2017-04-09] MEDS: LEVALBUTEROL 1.25MG/3ML NEB INH SCH ×3 (01:48→14:31)
[2017-04-09] MEDS: ACETAMINOPHEN 500 MG TAB PO PRN ×2 (03:53→11:11)
[2017-04-09] MEDS: DAPTOmycin IV 600 MG in SODIUM CHLORIDE 0.9% 50ML 50 ML IV SCH (05:35)
[2017-04-09 06:03] LABS: HEMATOCRIT 27.5 % (42-52); MEAN CELL VOLUME 94.5 fL (80-100); MEAN CORPUSCULAR HEMOGLOBIN 32.6 pg (25-34); MEAN CORPUSCULAR HGB CONC 34.5 g/dl (32-36); PLATELET COUNT 111 K/uL (130-400); RED BLOOD COUNT 2.91 M/uL (4.7-6.1); WHITE BLOOD COUNT 8.48 K/uL (4.8-10.8)
[2017-04-09 06:25] LABS: BASO % 0.6 %; BASO ABS # 0.05 K/uL (0-0.2); COMPLETE YES; EOS % 3.3 %; IG% 0.8 %; LYMPH % 11.7 %; LYMPH ABS # 0.99 K/uL (1.2-3.4); MONO % 13.3 %; NEUT % 70.3 %
[2017-04-09] MEDS: FUROSEMIDE INJ 40 MG in SYRINGE 0 ML IV SCH (06:27)
[2017-04-09 06:42] LABS: ALB/GLOB RATIO 0.4 (0.9-2); BUN/CREATININE RATIO 16.8 (10-20); CALCIUM 8.3 mg/dl (8.5-10.1); CREATININE 1.3 mg/dl (0.60-1.40); POTASSIUM 4.3 mmol/L (3.5-5.1)
[2017-04-09] MEDS: LACTULOSE SYRUP 30 GM/45 ML UDP PO SCH (08:42)
[2017-04-09] MEDS: METOPROLOL TARTRATE 50 MG TAB PO SCH (08:44)
[2017-04-09] MEDS: SPIRONOLACTONE 25 MG TAB PO SCH (08:44)
[2017-04-09] MEDS: POTASSIUM CHLORIDE 20 MEQ TABCR PO SCH ×2 (08:45→14:32)
[2017-04-09] MEDS: INSULIN ASPART 100 UNITS/ML 3 ML PEN SC SCH ×2 (08:48→13:32)
[2017-04-09] MEDS ORDERED: SPR25 PO (09:58)
[2017-04-09] MEDS ORDERED: [UNRECOGNIZED DRUG - CODE] FLUSH (09:58)
[2017-04-09] MEDS ORDERED: XPNINS125 INH (09:58)
[2017-04-09] MEDS ORDERED: METO50TA17 PO (09:58)
[2017-04-09] MEDS ORDERED: DAPT500I IV (09:58)
[2017-04-09] MEDS ORDERED: MCRK20 PO (09:58)
--- NOTE | 2017-04-09 10:13 | Discharge Instructions ---
Discharge Instructions Date of Service April 09, 2017. Admission Reason for Admission: STAPHYLOCOCCUS SEPSIS LIVER CIRRHOSIS HEPATIC ENCEPHALOPATHY POST L4-L5 HERNIATED DISC SURGERY ON 03/16/2017 POST OPERATIVE SITE INFECTION REQUIRING RE-EXPLORATION AND DRAINING OF COLLECTION THROMBOCYTOPENIA COAGULOPATHY TYPE 2 DIABETES MELLITUS SARCOIDOSIS. PULMONARY AND EXTRA-PULMONARY MANIFESTATION PERIPHERAL NEUROPATHY CHRONIC STEROID THERAPY Discharge Discharge Diagnosis / Problem: STAPHYLOCOCCUS SEPSIS. ENCEPHALOPATHY.LIVER CIRRHOSIS.POST-OP INFECTION Discharge Goals Goal(s): Decrease discomfort, Improve function, Increase independence, Improve disease control, Improve nutritional status, Therapeutic intervention Activity Recommendations Activity Level: Assistance Required Therapies: Physical Therapy, Occupational Therapy . Additional Information Patient informed of condition: Yes Advance Directives: No DNR: No Level of Care: Acute Rehab Communicable Disease: No Prognosis: Stable Verma Catheter: No Instructions / Follow-Up Instructions / Follow-Up PICC LINE CARE DR SMITH WANTS TO SEE PATIENT IN ONE WEEK. PLEASE ARRANGE FOR APPOINTMENT WHEN DISCHARGED FROM [facility] NEED TO ARRANGE FOR DAPTOMYCIN INFUSION AT THE MEDICAL TREATMENT UNIT TO COMPLETE THE COURSE Current Hospital Diet Patient's current hospital diet: Diabetes Type 2 Diet Discharge Diet Recommended Diet: Diabetes Type 2 Diet Procedures Procedures Performed: INCISION AND DRAINAGE LUMBAR SPINE PARACENTESIS X 2 PICC LINE CORDELL Pending Studies Studies pending at discharge: no Medical Emergencies . Who to Call and When: Medical Emergencies: If at any time you feel your situation is an emergency, please call 911 immediately. . Non-Emergent Contact Non-Emergency issues call your: Primary Care Provider, Surgeon . . "Provider Documentation" section prepared by Hu Nielsen. . Core Measure Problem Core Measures: None
--- NOTE | 2017-04-09 21:49 | PROGRESS NOTE ---
DATE: 04/09/2017 SUBJECTIVE: A 62-year-old male admitted with mental status changes with encephalopathy which turned out to be related to Staphylococcus sepsis and hepatic encephalopathy. He does have liver cirrhosis. He had surgery for herniated L4-L5 disk. The patient was found to have an infection site at the site of his surgery. He required reexploration. A pocket of fluid was evacuated. Culture grew Staphylococcus. Two blood cultures also grew Staphylococcus. He also has thrombocytopenia and coagulopathy related to his liver disease. He is diabetic. He has sleep apnea. He has a history of ASD, which required patch repair. 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 He has sleep apnea. Peripheral neuropathy. Overall, his condition gradually improved. He remained afebrile. He denied any headache or dizziness. No chest pain, no shortness of breath. No abdominal pain. No nausea, no vomiting. He is having frequent bowel movements related to the lactulose. He does have some back pain, but only minimal. No pain in his extremities. He did have significant edema, but that has resolved. He also had ascites and he underwent 2 paracentesis. He still has some seepage from the site of the paracentesis. PHYSICAL EXAMINATION: GENERAL: Well developed, in no acute distress. VITAL SIGNS: Blood pressure 108/67, pulse 68, respirations 17, temperature 36.7, oxygen saturation 92% on room air. SKIN: Warm and dry. No rash. Jaundiced HEENT: Scleral icterus. NECK: No JVD. No adenopathy. HEART: Regular heart sounds. 2/6 systolic murmur. LUNGS: Clear. ABDOMEN: Evidence of ascites. Soft, nontender. He does have ascitic fluid coming from that 2 paracentesis sites, very minimal. BACK: Surgical scar. EXTREMITIES: Resolved edema. No clubbing, no cyanosis. NEUROLOGIC: He is alert and oriented. There is no deficit. TODAY'S LABORATORY TESTS: WBC count 8480, hemoglobin 9.4, hematocrit 27.5, platelet count 111,000. Sodium 136, potassium 4.3, chloride 99, CO2 29, BUN 22, creatinine 1.3, glucose 96. Calcium 8.3, total bilirubin decreasing to 6.8, AST 55, ALT 21, alkaline phosphatase 212, total protein 6.3, albumin 1.9. ASSESSMENT: 1. Staphylococcus sepsis. 2. Status post surgery for L4-L5 disk. 3. Infection of the surgical site, which required incision and drainage of a pocket of fluid that grew Staphylococcus. 4. Liver cirrhosis. 5. Hepatic encephalopathy. 6. Thrombocytopenia. 7. Coagulopathy. 8. Type 2 diabetes mellitus. 9. Sarcoidosis. 10. History of atherosclerotic disease, which required repair. 11. Peripheral neuropathy. 12. Chronic steroid therapy. PLAN: 1. I discontinued his lactulose. 2. Continuing his medications. 3. Arrangements are completed for him to go to [facility]. 4. He will need to continue on his daptomycin 600 mg daily for an additional 35 days. 5. [facility], will make arrangements for him to have the daptomycin infusion in the medical treatment unit. 6. He will be seen by Dr. Gray as an outpatient in about a week. AMBIKA
--- NOTE | 2017-04-17 18:48 | DISCHARGE SUMMARY ---
DISCHARGE DIAGNOSES: 1. Mental status changes with encephalopathy secondary to liver cirrhosis and Staphylococcus sepsis. 2. Staphylococcus sepsis. 3. Liver cirrhosis. 4. Hepatic encephalopathy. 5. Status post surgery for L4-L5 herniated disk done on 03/16/2017. 6. Postoperative site infection requiring exploration and drainage of fluid collection which also grew Staphylococcus. 7. Chronic thrombocytopenia. 8. Coagulopathy with prolonged INR. 9. Type 2 diabetes mellitus. 10. 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 11. Peripheral neuropathy. 12. Chronic steroid therapy. 13. Sleep apnea. DISCHARGE MEDICATIONS: Included: 1. Daptomycin 600 mg daily to continue for 35 days. 2. Heparin flush of his PICC line. 3. Xopenex high flow treatment every 6 hours. 4. Metoprolol tartrate 50 mg twice daily. 5. Potassium chloride 20 mEq 3 times daily. 6. Spironolactone 25 mg daily. 7. Atorvastatin 10 mg daily. 8. Restasis 0.05% eyedrops 1 drop in both eyes twice a day. 9. Nexium 40 mg daily. 10. Fluoxetine 40 mg daily. 11. Furosemide 40 mg daily. 12. NovoLog insulin according to scale. 13. Oxycodone/APAP 5/325 one to two tablets every 4 hours if needed for pain. 14. Trental 400 mg 3 times a day. 15. Pramipexole 1 mg at bedtime. 16. Prednisone 10 mg daily. CONSULTATIONS: 1. Dr. Todd Gray in spinal surgery. 2. Dr. Nader Monroe in gastroenterology. 3. Dr. Banks in infectious disease. 4. Dr. Lopez in cardiology. PROCEDURES: 1 Re-exploration and drainage of an infected site of surgery at L4-L5 disc surgery which was previously done. 2. Paracentesis on 2 separate occasions. 3. PICC line placement. 4. Transesophageal echocardiogram. HISTORY OF PRESENT ILLNESS: A 62-year-old male admitted through the Emergency Room with mental status changes and suspected hepatic encephalopathy. The patient was hospitalized at [facility] from 03/14/2017 until 03/18/2017. He had a large herniation of his L4-L5 disc with nerve compromise of the L4 root on the right side. He underwent surgery on 03/16/2017. The procedure was well tolerated. He does have chronic thrombocytopenia and also coagulopathy secondary to his liver disease. He did require platelet transfusion and also fresh frozen plasma administration. His medical history is quite complex. He has sarcoidosis with pulmonary and extra pulmonary manifestations, type 2 diabetes mellitus, chronic lung disease, sleep apnea, arterial hypertension, chronic steroid therapy, history of atrial septal defect which was repaired in 2014. He also was diagnosed with liver cirrhosis. For a couple of days after his discharge, he was doing well. It started on Monday prior to his admission, he started having low back pain. He was taking his narcotic pain medication more frequently. He denied any fall. The pain radiated to the right buttock area at times. His family noted that he was quite lethargic. Difficult to arouse. He has not been eating or drinking sufficiently. The patient was having low back pain. He called Dr. Gray's office in the afternoon. He was asked to call our office or come to the Emergency Room. His called the office describing his condition and I asked her to call an ambulance and bring him to the Emergency Room. He was evaluated by Dr. Mohamud. Multiple tests were done. I saw the patient in the Emergency Room and he was admitted for further evaluation and treatment. PAST MEDICAL HISTORY, SOCIAL HISTORY AND FAMILY HISTORY: All as noted. ALLERGIES: 1. CELEBREX. 2. PENICILLIN. PHYSICAL EXAMINATION AND ADMISSION LABORATORY TESTS: All as noted. HOSPITAL COURSE: The patient was admitted to medical bed. Resuscitation level 1. All his laboratory tests were ordered. Cultures were ordered. He was placed on sliding scale coverage for his diabetes. Low dose Dilaudid for pain control. Because of his ascites and leg edema he was not started on IV fluid. He was given lactulose orally. Continued.... MTDD
--- NOTE | 2017-04-17 18:50 | DISCHARGE SUMMARY ---
HOSPITAL COURSE: As noted the patient was admitted to medical bed. Resuscitation level 1. All his laboratory tests were ordered. Cultures were ordered. He was placed on a sliding scale coverage for his diabetes. He was given Dilaudid for pain control. He was started on lactulose. Initially on his CT scan of the abdomen and pelvis, there was a suspicion that he may have a mild diverticulitis, so he was started on IV ciprofloxacin and metronidazole. His blood cultures grew Staphylococcus. As soon as the culture was reported to be growing Gram-positive cocci, he was started on IV vancomycin. The blood cultures did grow Staphylococcus according to the final report. The patient was having back pain. He just had surgery. Spinal surgery consultation was requested. He was seen by Dr. Gray. There was a suspicion that he may have a fluid collection at the site of the surgery. Dr. Gray took him back to the operating room. He did re-explore the area and drained a pocket of fluid which was cloudy and suspicion is to be infectious in nature. Culture was done. Eventually the culture did grow Staphylococcus. Postoperatively, his pain has subsided. As far as his liver cirrhosis, his bilirubin continued to rise. His mental status was affected. He had multiple episodes and multiple days where he was completely confused and not aware of where he was and he was drowsy and lethargic. GI consultation was requested. He was seen by Dr. Monroe. As far as his hepatic encephalopathy, the supportive treatment was continued. Because of his ascites he did have 2 paracenteses done. The first one 1400 mL of fluid drained and the second one 3000 mL. There was no evidence of any infection. Because of the sepsis with Staphylococcus and the fact that the patient had a prior ASD, which was repaired with a patch, cardiology consultation was requested. An echocardiogram was done. Initially, it did not really show any problem, but it was recommended that we should proceed with a CORDELL. This was done by Dr. Lopez. Fortunately, there was no problem with any vegetation or any other abnormality regarding his valves or the repaired ASD. Therapies were ordered. His laboratory tests were monitored. His condition fluctuated, but eventually his mental status improved. His total bilirubin started to drift down. He was ambulating with therapy. The patient remained in a weakened condition. It was impossible for us to send him directly home. Case management worked on discharge planning. The decision was to proceed with admission to [facility]. As noted, patient was seen in infectious disease consultation by Dr. Banks. The recommendation was to continue IV antibiotics for 6-8 weeks. Initially, patient was on vancomycin, but Dr. Gray did change it to daptomycin, so it could be administered only once a day. A PICC line was placed for the long-term IV antibiotic administration. His condition improved. His appetite improved. He was tolerating his therapies. He was ambulating. With the lactulose he did have multiple bowel movements, but the medication was discontinued because of the frequent bowel movements and some stool incontinence that he had. During his hospitalization, he also had an episode of urinary retention that required Verma catheter, but the Verma catheter was subsequently removed and he was voiding without any problem. Once his condition stabilized, the patient was transferred to [facility]. He was to follow up with Dr. Gray the following week. I will see him in the office after his discharge from [facility].
[2017-07-22] MEDS ORDERED: ATOR10TA82 PO (01:13)
== END 2017-04-09 15:35 | DRG 856 ==
LOC: ENRESERVTM → ENRESERVDT → EDBD 17:49 → C.EDC 17:50 → C.MSN 21:29
PROVIDERS: ADMIT Internal Medicine; ATTEND Internal Medicine
PROC: 0W9G3ZZ Drainage of Peritoneal Cavity, Percutaneous Approach (ICD-10-PCS; 2017-03-27)
PROC: 0W9G3ZX Drainage of Peritoneal Cavity, Percutaneous Approach, Diagnostic (ICD-10-PCS; 2017-03-27)
PROC: 009U0ZZ Drainage of Spinal Canal, Open Approach (ICD-10-PCS; principal; 2017-03-29 11:45)
PROC: 3E0S329 Introduction of Other Anti-infective into Epidural Space, Percutaneous Approach (ICD-10-PCS; principal; 2017-03-29 11:45)
PROC: 0W9G3ZZ Drainage of Peritoneal Cavity, Percutaneous Approach (ICD-10-PCS; 2017-03-31)
PROC: 02HV33Z Insertion of Infusion Device into Superior Vena Cava, Percutaneous Approach (ICD-10-PCS; 2017-03-31)
DX: T81.4XXA Infection following a procedure, initial encounter (principal); A41.1 Sepsis due to other specified staphylococcus; K57.92 Diverticulitis of intestine, part unspecified, without perforation or abscess without bleeding; R65.20 Severe sepsis without septic shock; K76.6 Portal hypertension; G93.41 Metabolic encephalopathy; I50.31 Acute diastolic (congestive) heart failure; G96.0 Cerebrospinal fluid leak; G06.1 Intraspinal abscess and granuloma; Z98.1 Arthrodesis status; D86.0 Sarcoidosis of lung; E11.43 Type 2 diabetes mellitus with diabetic autonomic (poly)neuropathy; K21.9 Gastro-esophageal reflux disease without esophagitis; E78.5 Hyperlipidemia, unspecified; E66.9 Obesity, unspecified; Z88.0 Allergy status to penicillin; D69.6 Thrombocytopenia, unspecified; K72.90 Hepatic failure, unspecified without coma; D86.89 Sarcoidosis of other sites; I10 Essential (primary) hypertension; K70.31 Alcoholic cirrhosis of liver with ascites; Z79.52 Long term (current) use of systemic steroids; G47.33 Obstructive sleep apnea (adult) (pediatric); F10.20 Alcohol dependence, uncomplicated; K25.9 Gastric ulcer, unspecified as acute or chronic, without hemorrhage or perforation; K31.89 Other diseases of stomach and duodenum; Y83.8 Other surgical procedures as the cause of abnormal reaction of the patient, or of later complication, without mention of misadventure at the time of the procedure; Y92.009 Unspecified place in unspecified non-institutional (private) residence as the place of occurrence of the external cause

== ENCOUNTER → 2017-04-27 | Outpatient (CLI) | payer BC ==
[~2017-04-27] MED LIST changes: +ACET-1256 PO; +ACET325T96 PO; +ALBINSX INH; +BISA10SU7 PR; +CEFT1INJ6 IV; -CLON1TAB3 PO; +CNCI50 IV; +CYCL5TAB PO; +DAPT500I IV; +DOCU100C31 PO; +ENOX40IN SQ; +FLUT0.15 NAE; +FURO-85 PO; +FURO80TA63 PO; +GABA-113 PO; +INSDGI SC; -INSDGIPEN SC; +LACT10SO17 PO; +MCRK20 PO; +MELA3TAB PO; +METO50TA16 PO; +METO50TA17 PO; +NF656 TD; +OMEP40CA41 PO; +ONDA4TAB46 PO; +OXYC1TAB3 PO; +PANT40TA PO; +POLY1POW2 PO; +POTA20TA16 PO; +PRED20TA PO; +PROM25IN13 IV; +PROP10TA7 PO; +PROP20TA67 PO; -Potassium Chloride PO; +QUET1TAB30 PO; +REPA1TAB5 PO; +RIFA300C34 PO; +RIFA550T2 PO; +RXC/5 PO; +SIME80CH40 PO; +SIMV20TA2 PO; +SPIR50TA2 PO; +SPR25 PO; +XPNINS125 INH; +[UNRECOGNIZED DRUG - CODE] FLUSH
[2017-04-27 15:20] LABS: ALT/SGPT 29 U/L (12-78); AST/SGOT 36 U/L (15-37); BLOOD UREA NITROGEN 25 mg/dl (7-18); CALCIUM 8.6 mg/dl (8.5-10.1); CARBON DIOXIDE 26 mmol/L (21-32); CHLORIDE 102 mmol/L (98-107); GLUCOSE 167 mg/dl (70-99); POTASSIUM 4.2 mmol/L (3.5-5.1); SODIUM 136 mmol/L (136-145)
[2017-04-27 15:21] LABS: INR 1.1 (0.9-1.1)
[2017-04-27 15:23] LABS: ALB/GLOB RATIO 0.4 (0.9-2); ALKALINE PHOSPHATASE 278 U/L (45-117)
[2017-04-27 15:39] LABS: BASO % 0.8 %; BASO ABS # 0.05 K/uL (0-0.2); COMPLETE YES; EOS % 4.6 %; HEMATOCRIT 30.2 % (42-52); IG% 0.3 %; LYMPH % 14.6 %; LYMPH ABS # 0.96 K/uL (1.2-3.4); MEAN CELL VOLUME 95.9 fL (80-100); MEAN CORPUSCULAR HGB CONC 34.4 g/dl (32-36); MEAN PLATELET VOLUME 11.4 fL (7.4-10.4); MONO % 14.3 %; NEUT % 65.4 %; PLATELET COUNT 128 K/uL (130-400); RED BLOOD COUNT 3.15 M/uL (4.7-6.1); TOXIC GRANULATION 2+; WHITE BLOOD COUNT 6.58 K/uL (4.8-10.8)
== END | disposition home or self-care (01) ==
LOC: C.LABSPEC 14:52
PROVIDERS: ATTEND Internal Medicine
DX: K74.60 Unspecified cirrhosis of liver (principal)

== ENCOUNTER 2017-05-02 11:31 | Inpatient (IN) | payer BC, OTHER ==
[2017-05-02] VITALS (10 sets, daily range): BP systolic 106–164; BP diastolic 64–93; PULSE 84–114; TEMP 36.6–38; O2SAT 91–97; Ht 170.2 cm; Wt 112.0 kg
[~2017-05-02] VITALS: Ht 170.2 cm; Wt 112.0 kg
[~2017-05-02 11:31] MED LIST changes: -ACET-1256 PO; -ACET325T96 PO; -ALBINSX INH; -ATOR10TA82 PO; +ATOR10TA88 PO; -BISA10SU7 PR; -CEFT1INJ6 IV; -CNCI50 IV; -CYCL5TAB PO; -DOCU100C31 PO; -ENOX40IN SQ; -FLUT0.15 NAE; -FURO-85 PO; -FURO80TA63 PO; -GABA-113 PO; -INSDGI SC; -LACT10SO17 PO; -MELA3TAB PO; -METO50TA16 PO; -NF656 TD; -OMEP40CA41 PO; -ONDA4TAB46 PO; -OXYC1TAB3 PO; -PANT40TA PO; -POLY1POW2 PO; -POTA20TA16 PO; -PRED20TA PO; -PROM25IN13 IV; -PROP10TA7 PO; -PROP20TA67 PO; -QUET1TAB30 PO; -REPA1TAB5 PO; -RIFA300C34 PO; -RIFA550T2 PO; -RXC/5 PO; -SIME80CH40 PO; -SIMV20TA2 PO; -SPIR50TA2 PO; -VNTHFA/IN INH
[2017-05-02] MEDS: LACTATED RINGER'S 1000ML 1,000 ML IV SCH (12:09)
[2017-05-02] MEDS ORDERED: DAPTOmycin 500 MG VIAL IV SCH (12:15)
[2017-05-02] MEDS ORDERED: NALOXONE HCL 0.4 MG/1 ML VIAL/CARP IV PRN (12:15)
[2017-05-02] MEDS ORDERED: LORAZEPAM INJ 1 MG in SYRINGE 0 ML IV PRN (12:15)
--- NOTE | 2017-05-02 12:59 | HISTORY & PHYSICAL EXAMINATION ---
DATE OF ADMISSION: 05/02/2017 HISTORY OF PRESENT ILLNESS: The patient is known to us prior he presented to our office for his routine followup. He is roughly 4 weeks status post I&D lumbar spine as well as on 03/16/2017 L4-L5 decompression and fusion. He has been on IV daptomycin since. He is now home. He notes an increase in back pain for the past week. He notes low grade temperatures off and on. Both of his legs are numb. He has right buttock and posterior thigh pain to the knee. He is requiring OxyIR 1 tablet every 5 hours plus Tylenol for pain control. Ambulates with a walker. He does have an upcoming appointment scheduled with Dr. Banks this May 05. PAST MEDICAL HISTORY: The patient's medical history is significant for sarcoidosis, type 2 diabetes, arterial hypertension, chronic prednisone therapy, history of atrial septal defect status post repair, sleep apnea with use of CPAP machine, liver cirrhosis, lumbar epidural abscess, GI bleed, and chronic thrombocytopenia. PAST SURGICAL HISTORY: Significant for tonsillectomy, left inguinal hernia repair, left knee surgery, carpal tunnel release, repair of atrial septal defect in [place], lumbar fusion with subsequent I&D to remove epidural abscess. ALLERGIES: INCLUDE CELEBREX AND PENICILLIN. MEDICATIONS: At home include insulin, chronic prednisone, oxycodone, IV daptomycin, spironolactone, and furosemide. SOCIAL HISTORY: He is and lives at home with his . REVIEW OF SYSTEMS: Significant for back and bilateral leg pain, numbness, fevers, increase in back pain. PHYSICAL EXAMINATION: GENERAL: He is seen with his in our office today, he is in a wheelchair. No obvious distress. He is alert and oriented x3. HEENT: Speech appropriate. CARDIOPULMONARY: No gross abnormalities. ABDOMEN: Soft, nontender. GENITOURINARY: Deferred. NEUROLOGIC: Cranial nerves II-XII grossly intact. MUSCULOSKELETAL: Lumbar incision is healed. There is some induration. There is some modest edema along the superior part of the incision. No purulence. Strength is intact bilateral lower extremities. No evidence of ankle clonus. LABORATORY DATA: He has a sed rate from yesterday which is greater than 90,000. White count is normal and platelet count is 98,000. PLAN: The patient will be directly admitted from our office. Will update MRI as well as CT scan, there is a possible lucency of the L4-L5 hardware as well due to his high sed rate as well as active infection despite IV daptomycin. We will plan for I&D as well as removal of instrumentation on . Will consult anesthesia, infectious disease and his family physician, Dr. Nielsen, preoperatively. The patient, his and his daughter are comfortable with this plan.
[2017-05-02 13:53] LABS: HEMATOCRIT 28.7 % (42-52); MEAN CELL VOLUME 96.3 fL (80-100); MEAN CORPUSCULAR HEMOGLOBIN 32.2 pg (25-34); MEAN CORPUSCULAR HGB CONC 33.4 g/dl (32-36); RED BLOOD COUNT 2.98 M/uL (4.7-6.1); WHITE BLOOD COUNT 5.76 K/uL (4.8-10.8)
[2017-05-02 14:12] LABS: INR 1.1 (0.9-1.1)
--- NOTE | 2017-05-02 14:16 | Progress Note ---
Progress Note Date of Service May 02, 2017. Progress Note ID Consult Dictated # [id number] A/P: 1. Epidural Abscess - RECRUITING OPERATIONS CONSULTANT, on dapto -Follow blood cultures, if + will need repeat echo -For OR in am, please send cultures, await OR findings -Add Imipenem for gnr coverage pending additional culture data -Will follow, thank you
[2017-05-02 14:17] LABS: MEAN PLATELET VOLUME 9.7 fL (7.4-10.4); PLATELET COUNT 98 K/uL (130-400)
[2017-05-02] MEDS: LEVALBUTEROL 1.25MG/3ML NEB INH SCH ×2 (14:20→19:02)
[2017-05-02 14:26] LABS: BUN/CREATININE RATIO 14.3 (10-20); CALCIUM 8.2 mg/dl (8.5-10.1); CREATININE 1.1 mg/dl (0.60-1.40)
[2017-05-02 14:27] LABS: ALB/GLOB RATIO 0.4 (0.9-2)
[2017-05-02] MEDS: PENTOXIFYLLINE 400MG EXT REL TAB PO SCH ×2 (14:35→21:10)
[2017-05-02] MEDS: POTASSIUM CHLORIDE 20 MEQ TABCR PO SCH ×2 (14:35→21:11)
[2017-05-02 14:41] LABS: BASO % 0.5 %; BASO ABS # 0.03 K/uL (0-0.2); COMPLETE YES; EOS % 2.6 %; IG% 0.7 %; LYMPH % 15.3 %; LYMPH ABS # 0.88 K/uL (1.2-3.4); MONO % 12.3 %; NEUT % 68.6 %; TOXIC GRANULATION 1+
[2017-05-02] MEDS ORDERED: GLUCOSE 40% GEL 15 GM TUBE PO PRN (15:00)
[2017-05-02] MEDS ORDERED: GLUCAGON FOR INJ 1 MG VIAL SQ PRN (15:00)
[2017-05-02] MEDS ORDERED: DEXTROSE 50% 50 ML SYR IV PRN (15:00)
[2017-05-02] MEDS ORDERED: GLUCOSE 10 TABS/TUBE PO PRN (15:00)
--- NOTE | 2017-05-02 15:02 | INFECT. DISEASE CONSULTATION ---
DATE OF CONSULTATION: 05/02/2017 DATE OF CONSULTATION: 05/02/2017. REQUESTING PHYSICIAN: Dr. Gray. HISTORY OF PRESENT ILLNESS: This is a 62-year-old gentleman who was admitted from the orthopedic office after he was seen there earlier today for follow-up visit. He does have a history of coagulase negative staph bacteremia as well as epidural abscess in March of 2017. He was placed on IV daptomycin and he continues on this as an outpatient basis. He did have an I&D of the lumbar spine on 03/16/2017. He had cultures from 04/07/2017 which grew coagulase negative staph. Per the H&P today he reported that he had increased back pain for the past week. He has also admitting to low grade fevers subjectively at home. On my examination today, he is wrapped in warming blankets and having active chills. He also complained of bilateral lower extremity weakness and numbness. He does have his most upcoming ID appointment scheduled for later this week. He appears to be tolerating daptomycin while on outpatient basis. He was admitted to the hospital and underwent MRI scan. He is due to have I&D of the lumbar area tomorrow. On my examination, he is complaining of fevers and he is having rigors on exam. He states that he is cold. He is wrapped in warming blankets and only his face is exposed. He does not wish to undergo full examination secondary to just getting placed into bed and feeling warm. The heat is also on in his room. He does admit to worsening back pain. He denies any bowel or bladder incontinence. He states he was tolerating antibiotics well. His remaining review of systems is limited, but unremarkable except or noted above. PAST MEDICAL HISTORY: Significant for sarcoidosis, type 2 diabetes, arterial hypertension, atrial septal defect status post repair, obstructive sleep apnea on CPAP, cirrhosis, epidural abscess with recent cultures from mid March growing coagulase negative staph, history of GI bleed and thrombocytopenia. PAST SURGICAL HISTORY: Significant for tonsillectomy and left inguinal hernia repair, left knee surgery, carpal tunnel release, repair of an atrial septal defect, lumbar fusion with I&D in February and removal of epidural abscess. ALLERGIES: HE HAS ALLERGIES TO PENICILLIN AND CELEBREX. SOCIAL HISTORY: Negative for tobacco use, alcohol use or drug use. CURRENT MEDICATIONS: Include Lipitor, Lasix, prednisone, spironolactone, Flonase, daptomycin, Prozac, Lopressor, Protonix, Mirapex, Xopenex, Trental, potassium, Ativan, Zofran, Dilaudid and subQ heparin. PHYSICAL EXAMINATION: VITAL SIGNS: She is afebrile, pulse 87, respiratory rate 19, blood pressure is 126/70, oxygen saturation 97% on room air. GENERAL: He is awake and having rigors. HEAD, EYES, EARS, NOSE, AND THROAT: Mucous membranes are dry. Extraocular muscles are intact. HEART: Regular. LUNGS: Clear with poor inspiratory effort. ABDOMEN: Nondistended. There is no edema. LABORATORY STUDIES: CBC today reveals a white blood cell count of 5.7, hemoglobin 9.6, platelets are pending. Chemistry panel is pending. Coagulation studies are pending. Urinalysis is pending. Blood cultures are ordered. There is no imaging to review of old micro reveals a deep lumbar drainage culture dated 03/29/2017 to be growing coagulase negative staph with susceptibilities to daptomycin, penicillin and vancomycin. Peritoneal fluid from March 27 is negative. Blood cultures from the are coagulase negative staph in 2/2 sets with matching susceptibilities, most recent echocardiogram was done on March 30. This was CORDELL. No vegetation was noted. ASD occlusion device was well placed. ASSESSMENT AND PLAN: Epidural abscess on daptomycin. He will undergo a formal I&D tomorrow. Repeat OR cultures should be obtained. Blood cultures are ordered and results are pending. I will add imipenem for gram negative coverage empirically in addition to his current daptomycin therapy following the results of his cultures. If his blood cultures are positive a repeat echocardiogram should be obtained. We will follow along with you.
[2017-05-02 15:06] LABS: MANUAL MICROSCOPIC REQUIRED? NO; REVIEW REQ? NO; URINE APPEARANCE CLOUDY (CLEAR); URINE BILIRUBIN NEG (NEG); URINE COLOR YELLOW; URINE EPITHELIAL CELL AUTO 0-5 /lpf (0-5); URINE NITRITE NEG (NEG); URINE SPECIFIC GRAVITY 1.012 (1.000-1.030); UROBILINOGEN NEG (NEG)
[2017-05-02] MEDS: RESTASIS-ORDER AWAITING ACTION SCH ×2 (16:00→23:47)
[2017-05-02] MEDS: HYDROmorphone HCL 0.5MG/ML 50 ML CASSETTE IV PRN ×2 (16:10→23:07)
[2017-05-02] MEDS: IMIPENEM/CILASTATIN IV 500 MG in DEXTROSE 5% 100ML 100 ML IV SCH ×2 (16:17→22:12)
[2017-05-02] MEDS: SODIUM CHLORIDE 0.9% 1000ML 1,000 ML IV SCH (16:17)
[2017-05-02] MEDS: ONDANSETRON INJ 2 MG/ML 2 ML VIAL IV PRN (16:57)
[2017-05-02] MEDS ORDERED: NURSING VERBAL MED ORDER ONE ×3 (17:00→23:15)
--- NOTE | 2017-05-02 18:40 | DIAGNOSTIC IMAGING REPORT ---
CT LUMBAR SPINE WITHOUT CT DOSE: 1609.29 mGy.cm CLINICAL HISTORY: Back pain. Hardware failure and L4-5. TECHNIQUE: Helical images were acquired in transverse plane. Reformatted sagittal and coronal images were reviewed. CONTRAST: No contrast was administered COMPARISON STUDY: 03/24/2017 FINDINGS: L1-2 level: There is no evidence of significant disc bulge or focal herniation. There is no evidence of spinal or foraminal stenosis. L2-3 level: There is a moderate circumferential disc bulge with mild to moderate spinal stenosis. There is no significant foraminal narrowing L3-4 level: There is a circumferential disc bulge with mild spinal stenosis. There is no significant foraminal narrowing L4-5 level: There are postsurgical changes of a discectomy and interbody fusion. There is a grade 1 spondylolisthesis of L4 and L5 which appears to have developed in the interim. There is a 5 cm posterior gas and fluid collection, likely postsurgical. There is possible revision of the hardware. There is a lucency surrounding the left L4 pedicle screw. There is a fracture of the left lateral mass of the L4 vertebra. There is a fracture involving the right lateral mass of the L5 vertebra. The right L5 pedicle screw is positioned lateral to the vertebral body. L5-S1 level: There is no evidence of significant disc bulge or focal herniation. There is no evidence of spinal or foraminal stenosis. IMPRESSION: 1. Moderate circumferential disc bulge at the L2-3 level with mild to moderate spinal stenosis 2. Circumferential disc bulge at the L3-4 level with mild spinal stenosis 3. Postsurgical changes the L4-5 level. Interval development of a grade 1 spondylolisthesis of L4 on L5. 5 cm posterior gas and fluid collection likely postsurgical. New fracture of the lateral mass of the L4 vertebra. New fracture of the right lateral mass of the L5 vertebra. The right L5 pedicle screw is positioned lateral to the vertebral body. There are lucencies surrounding the left L4 pedicle screw and right L5 pedicle screw. Electronically signed by: Ian Jones M.D. 05/02/2017 6:39 PM Dictated Date/Time: 05/02/2017 6:30 PM
[2017-05-02] MEDS ORDERED: GADAVIST IV PRN (18:45)
--- NOTE | 2017-05-02 19:04 | DIAGNOSTIC IMAGING REPORT ---
MRI LUMBAR SPINE COMBINATION CLINICAL HISTORY: Low back pain and bilateral leg pain. Right leg numbness and tingling. History of infection. History of lumbar spinal surgery in January 2017 TECHNIQUE: Sagittal and axial T1, T2 and STIR images were obtained. Imaging was performed before and after administration 11 cc of intravenous Gadavist COMPARISON STUDY: 03/27/2017 OBSERVATIONS: The examination is compromised due to motion artifact. There is progressive marrow edema involving the inferior L4 endplate and superior L5 endplate. The findings could be secondary to either a discitis osteomyelitis, or edema from abnormal motion at the L4-5 level. L1-2: No disc protrusions or extrusions. No evidence of spinal canal or neural foraminal compromise. L2-3: There is a circumferential disc bulge with mild spinal stenosis. L3-4: There is a circumferential disc bulge with mild spinal stenosis. L4-5: There is artifact secondary to pedicle screw fixation. There is abnormal marrow edema involving the inferior L4 endplate and superior L5 endplate. There is a posterior extradural fluid collection measuring 24 x 50 x 20 mm. There is significant circumferential epidural enhancement surrounding the thecal sac. No psoas abscesses are visualized. There is a grade 1 spondylolisthesis of L4 and L5 L5-S1: No disc protrusions or extrusions. No evidence of spinal canal or neural foraminal compromise. The conus medullaris and cauda equina appear normal. IMPRESSION: 1. Moderately limited study from a technical standpoint secondary to motion artifact. 2. Circumferential disc bulges with mild spinal stenosis the L2-3, and L3-4 levels 3. Postsurgical changes at the L4-5 level. Interval development of a grade 1 spondylolisthesis of L4 on L5 4. Posterior extradural fluid collection at the L4-5 level measuring 24 x 15 x 20 mm. This is likely postsurgical. It is not possible to determine whether this is infected 5. Circumferential epidural enhancement at the L4-5 level. This could be secondary to infection or related to recent surgery 6. Interval development of abnormal marrow edema involving the inferior L4 endplate and superior L5 endplate. Diagnostic considerations include a discitis osteomyelitis, or edema from abnormal motion at the L4-5 level. Electronically signed by: Ian Jones M.D. 05/02/2017 7:02 PM Dictated Date/Time: 05/02/2017 6:53 PM
[2017-05-02] MEDS: INSULIN ASPART 100 UNITS/ML 3 ML PEN SC SCH ×2 (19:17→21:14)
[2017-05-02] MEDS ORDERED: ACETAMINOPHEN 500 MG TAB PO PRN (20:45)
[2017-05-02] MEDS ORDERED: NON-FORMULARY MEDICATION (Cyclosporine (Ophth) (Restasis) 1 DROP) OPB SCH (21:00)
[2017-05-02] MEDS: PANTOprazole SOD 40 MG TAB PO SCH (21:10)
[2017-05-02] MEDS: FLUOXETINE HCL 20 MG CAP PO SCH (21:10)
[2017-05-02] MEDS: PRAMIPEXOLE DIHYDROCHLORIDE 0.5 MG TAB PO SCH (21:10)
[2017-05-02] MEDS: METOPROLOL TARTRATE 50 MG TAB PO SCH (21:10)
[2017-05-03] VITALS (15 sets, daily range): BP systolic 97–113; BP diastolic 52–69; PULSE 48–76; TEMP 36.4–36.6; O2SAT 92–100
[2017-05-03] MEDS: INSULIN ASPART 100 UNITS/ML 3 ML PEN SC SCH ×5 (00:17→21:03)
--- NOTE | 2017-05-03 01:24 | INTERNAL MEDICINE CONSULTATION ---
DATE OF CONSULTATION: 05/02/2017 A 62-year-old male admitted earlier today by Dr. Todd Gray with recurrent infection in the lumbar area. The patient has had lumbar spinal surgery for a large herniation of L4-L5 disc with compromise of the exiting L5 root. The surgery was done on 03/16/2017. The patient recovered from his surgery. He was discharged. He was readmitted on 03/24/2017 with multiple problems, including mental status changes and suspected hepatic encephalopathy. His medical history is quite extensive includin. 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 2. Chronic steroid therapy. 3. Obstructive sleep apnea. 4. Chronic thrombocytopenia. 5. History of atrial septal defect, requiring repair in 2014. 6. Type 2 diabetes mellitus. 7. Hyperlipidemia. 8. Arterial hypertension. 9. Liver cirrhosis with recent decompensation with marked elevation of his bilirubin up to 8.5. He developed large ascites and required paracentesis on 2 separate occasions. After his last hospitalization, he was transferred to [facility]. The patient has been continued on IV daptomycin, which he has been receiving on a daily basis. He does have a PICC line in place. The patient was seen by Dr. Gray today for his followup. He was complaining of pain. He was having fever and chills. His evaluation revealed evidence of a collection of fluid in the lumbar area, suspected to be an infectious process in nature. He was admitted directly from his office. Since admission, the patient has had multiple tests done. He also had an MRI of the lumbar spine and also a CT scan of the lumbar spine. Both imaging studies are showing severe abnormalities, a moderate circumferential disc bulge at L2-L3 with [id number] spinal stenosis. Also, disc bulge at L3-L4 with mild spinal stenosis. Postsurgical changes of L4-L5. He also had interval development of a grade 1 spondylolisthesis of L4 on L5. He also had a 5-cm posterior gas and fluid collection, likely post surgical. New fracture of the lateral mass of L4 vertebra. New fracture of the right lateral mass of the L5 vertebra. The right L5 pedicle screw was positioned laterally to the vertebral body. There were also lucencies surrounding the left L4 pedicle screw and right L5 pedicle screw. The patient was admitted with the intent of taking him to the operating room for treatment of the abnormalities noted. The patient continued to have recurrent fever. Having chills. Feeling weak and tired. Complaining of having low back pain. During his last hospitalization, patient had a transthoracic and transesophageal echocardiograms and there was no significant valvular abnormality and the patch repair of the AST was intact. He denied any chest pain. No shortness of breath. Poor appetite. Some nausea. No vomiting. No problem with his bowel movements. No problem urinating. Back pain, as noted. He was having weakness and numbness in both legs. PHYSICAL EXAMINATION: GENERAL: Well developed, in no acute distress. His recorded weight is 112 kg, height 170.2 cm, BMI 38.7. SKIN: Warm and dry. His jaundice has resolved. HEENT: No mucosal abnormality. NECK: No JVD, no adenopathy. No thyromegaly. HEART: Regular heart sounds with a 2/6 systolic murmur. LUNGS: Clear. ABDOMEN: Soft, nontender, without evident organomegaly or masses. BACK: Surgical scar, lumbar area. There is an area of swelling and fluctuation in the lumbar area. EXTREMITIES: No edema, clubbing, or cyanosis. NEUROLOGIC: He is awake and alert. He is oriented. After his admission, his family noted that he is intermittently confused. ADMISSION LABORATORY TESTS: WBC count 5760, hemoglobin 9.6, hematocrit 28.7, platelet count 98,000. Prothrombin time 12, INR 1.1. Sodium 136, potassium 4.0, chloride 102, CO2 24, BUN 16, creatinine 1.1, glucose 222, calcium 8.2, total bilirubin 1.7, AST 36, ALT 28, alkaline phosphatase 337. Total protein 7.3, albumin 2.1. His urinalysis showed a small amount of leukocyte esterase, 10-30 WBCs. His chest x-ray was unremarkable. His electrocardiogram was normal. ASSESSMENT: 1. Recurrent infection, lumbar area, status post surgery for a large herniation of L4-L5 disc. Status post reexploration of the area because of fluid collection and the culture at that time did grow Staphylococcus aureus and also 2 blood cultures were positive for the same bacteria. 2. Sarcoidosis. 3. Chronic steroid therapy. 4. Type 2 diabetes mellitus. 5. Obstructive sleep apnea. 6. Atrial septal defect with prior repair. 7. Liver cirrhosis. PLAN: As noted, the patient is admitted. The plan is for him to be taken to the operating room for re-exploration of the area and dealing with the hardware, as Dr. Gray decides. He was placed on a sliding scale coverage for his diabetes. He was seen in infectious disease consultation. He is continued on daptomycin. Primaxin was also added. All his cultures have been done as far as the blood cultures. Also, a urine culture was sent. Anticipating cultures from the operating room at the time his wound is explored. As noted, during his last hospitalization, patient did have transesophageal and transthoracic echocardiograms and there was no evidence of any vegetations. He is continued on his medications. Pain control. Surgery as planned. IV antibiotics. Cultures pending. Thank you for asking me to see Mr. Santiago. We will follow with you during his hospitalization.
[2017-05-03] MEDS: IMIPENEM/CILASTATIN IV 500 MG in DEXTROSE 5% 100ML 100 ML IV SCH ×4 (01:25→22:07)
[2017-05-03] MEDS: LEVALBUTEROL 1.25MG/3ML NEB INH SCH ×4 (01:37→19:11)
[2017-05-03] MEDS: HYDROmorphone HCL 0.5MG/ML 50 ML CASSETTE IV PRN ×4 (07:06→22:55)
[2017-05-03] MEDS: DAPTOmycin IV 600 MG in SODIUM CHLORIDE 0.9% 50ML 50 ML IV SCH (07:53)
[2017-05-03] MEDS: RESTASIS-ORDER AWAITING ACTION SCH ×3 (07:54→22:24)
[2017-05-03] MEDS: FLUTICASONE PROPIONATE NA SPR 16 GM BTL NAE SCH (08:48)
[2017-05-03] MEDS: PANTOprazole SOD 40 MG TAB PO SCH ×2 (08:49→20:54)
[2017-05-03] MEDS: METOPROLOL TARTRATE 50 MG TAB PO SCH ×2 (08:49→20:50)
[2017-05-03] MEDS: FUROSEMIDE 40 MG TAB PO SCH (08:49)
[2017-05-03] MEDS: SPIRONOLACTONE 25 MG TAB PO SCH (08:50)
[2017-05-03] MEDS: POTASSIUM CHLORIDE 20 MEQ TABCR PO SCH ×3 (08:50→20:53)
[2017-05-03] MEDS: ATORVASTATIN 10 MG TAB PO SCH (08:53)
[2017-05-03] MEDS: PENTOXIFYLLINE 400MG EXT REL TAB PO SCH ×3 (08:53→20:53)
[2017-05-03] MEDS ORDERED: MOMETASONE FUROATE NAE SCH (09:00)
[2017-05-03 09:17] LABS: HEMATOCRIT 27.8 % (42-52); MEAN CELL VOLUME 96.2 fL (80-100); MEAN CORPUSCULAR HEMOGLOBIN 32.5 pg (25-34); MEAN CORPUSCULAR HGB CONC 33.8 g/dl (32-36); RED BLOOD COUNT 2.89 M/uL (4.7-6.1); WHITE BLOOD COUNT 7.09 K/uL (4.8-10.8)
[2017-05-03 09:20] LABS: MEAN PLATELET VOLUME 9.2 fL (7.4-10.4); PLATELET COUNT 94 K/uL (130-400)
[2017-05-03 09:54] LABS: BUN/CREATININE RATIO 15.5 (10-20); CREATININE 1.1 mg/dl (0.60-1.40); POTASSIUM 4.2 mmol/L (3.5-5.1)
[2017-05-03 09:57] LABS: BASO % 0.4 %; BASO ABS # 0.03 K/uL (0-0.2); COMPLETE YES; EOS % 2.3 %; IG% 0.4 %; LYMPH % 10.9 %; LYMPH ABS # 0.77 K/uL (1.2-3.4); MONO % 13.8 %; NEUT % 72.2 %
[2017-05-03 10:01] LABS: ALB/GLOB RATIO 0.4 (0.9-2); CALCIUM 8.9 mg/dl (8.5-10.1)
[2017-05-03] MEDS: LACTATED RINGER'S 1000ML 1,000 ML IV SCH (13:12)
[2017-05-03] MEDS: SODIUM CHLORIDE 0.9% 1000ML 1,000 ML IV SCH (13:14)
[2017-05-03] MEDS ORDERED: VANCOMYCIN HCL 1000MG/20ML VIAL ONE (15:09)
[2017-05-03] MEDS ORDERED: GENTAMICIN SULFATE 40 MG/ML 2 ML VIAL ONE (15:09)
[2017-05-03] MEDS ORDERED: SODIUM CHLORIDE 0.9% PF 50 ML VIAL ONE (15:10)
[2017-05-03] MEDS ORDERED: BUPIVACAINE/EPINEPHRINE 0.5% MPF 1:200,000 30 ML VIAL ONE (15:10)
[2017-05-03] MEDS ORDERED: BACITRACIN 50000 UNIT VIAL ONE ×2 (15:10→15:30)
[2017-05-03] MEDS ORDERED: LIDOCAINE HCL 2% 2 ML VIAL (20MG/ML) ONE (15:12)
[2017-05-03] MEDS ORDERED: NEOSTIGMINE METHYLSULFATE 5 MG/5 ML SYR ONE (15:12)
[2017-05-03] MEDS ORDERED: PHENYLEPHRINE HCL INJ 10 MG/ML VIAL ONE (15:12)
[2017-05-03] MEDS ORDERED: GLYCOPYRROLATE INJ 0.2 MG/ML VIAL ONE (15:12)
[2017-05-03] MEDS ORDERED: DEXAMETHASONE SOD INJ 4 MG/ML VIAL ONE (15:12)
[2017-05-03] MEDS ORDERED: MIDAZOLAM HCL 1 MG/ML 2ML VIAL ONE (15:12)
[2017-05-03] MEDS ORDERED: ONDANSETRON INJ 2 MG/ML 2 ML VIAL ONE (15:12)
[2017-05-03] MEDS ORDERED: SUCCINYLCHOLINE CHLORIDE 20 MG/ML 10 ML VIAL IV ONE (15:12)
[2017-05-03] MEDS ORDERED: ROCURONIUM BROMIDE 10 MG/ML 5 ML VIAL ONE (15:12)
[2017-05-03] MEDS ORDERED: FENTANYL CITRATE INJ 50 MCG/1 ML 2 ML VIAL ONE (15:12)
[2017-05-03] MEDS ORDERED: EpHEDrine SULFATE INJ 50 MG/ML AMP ONE (15:12)
[2017-05-03] MEDS ORDERED: PROPOFOL IV EMULSION 10 MG/ML 20 ML VIAL IV ONE (15:12)
--- NOTE | 2017-05-03 15:33 | Progress Note ---
Subjective Date of Service: May 03, 2017. Subjective pt in OR. cultures reviewed, urine and blood with gnr. tolerating abx. isolated fever overnight, 38. wbc 7 today. UA with 10-30 wbc Problem List Medical Problems: (1) Fall in home Status: Acute (2) Fever Status: Acute (3) Hypoxia Status: Acute (4) Immunocompromised Status: Acute (5) Left leg cellulitis Status: Acute (6) Lumbar disc herniation with radiculopathy Status: Acute (7) Orthostasis Status: Acute (8) Tenosynovitis, de Quervain Status: Acute (9) Vomiting Status: Acute Objective Vital Signs Date Time Temp Pulse Resp B/P (MAP) Pulse Ox O2 Delivery O2 Flow Rate FiO2 05/03/17 14:05 59 16 94 Room Air 05/03/17 11:37 36.5 62 16 102/64 (77) 94 Room Air 05/03/17 08:50 74 109/62 (78) 05/03/17 08:39 92 Room Air 05/03/17 07:30 Room Air 05/03/17 07:15 36.6 64 16 100/52 (68) 92 Room Air 05/03/17 07:05 72 16 97 Room Air 05/03/17 03:56 36.4 72 16 113/69 (84) Room Air 05/02/17 23:15 Room Air 05/02/17 23:04 36.9 84 18 106/69 (81) 93 Room Air 05/02/17 21:04 37.4 102 20 120/69 (86) 91 Room Air 05/02/17 19:55 38.0 111 22 119/66 (83) 93 Room Air 05/02/17 19:02 84 16 96 Room Air 05/02/17 18:48 36.8 114 20 132/75 (94) 92 Room Air 05/02/17 16:10 37.7 109 20 164/93 (116) 97 Room Air 05/02/17 15:50 Room Air Laboratory Results Item Value Date Time Blood Culture - Preliminary Resulted 05/02/17 1437 Blood Gram Negative Bacilli Blood Culture - Preliminary Resulted 05/02/17 1427 Blood Gram Negative Bacilli Urine Culture - Preliminary Resulted 05/02/17 0000 Urine , Clean Catch Gram Negative Bacilli Last 24 Hours Test 05/02/17 18:46 05/02/17 20:56 05/02/17 23:55 05/03/17 05:55 Bedside Glucose 174 mg/dl 172 mg/dl 186 mg/dl 143 mg/dl Test 05/03/17 09:06 05/03/17 12:09 White Blood Count 7.09 K/uL Red Blood Count 2.89 M/uL Hemoglobin 9.4 g/dL Hematocrit 27.8 % Mean Corpuscular Volume 96.2 fL Mean Corpuscular Hemoglobin 32.5 pg Mean Corpuscular Hemoglobin Concent 33.8 g/dl Platelet Count 94 K/uL Mean Platelet Volume 9.2 fL Neutrophils (%) (Auto) 72.2 % Lymphocytes (%) (Auto) 10.9 % Monocytes (%) (Auto) 13.8 % Eosinophils (%) (Auto) 2.3 % Basophils (%) (Auto) 0.4 % Neutrophils # (Auto) 5.12 K/uL Lymphocytes # (Auto) 0.77 K/uL Monocytes # (Auto) 0.98 K/uL Eosinophils # (Auto) 0.16 K/uL Basophils # (Auto) 0.03 K/uL RDW Standard Deviation 63.2 fL RDW Coefficient of Variation 17.7 % Immature Granulocyte % (Auto) 0.4 % Immature Granulocyte # (Auto) 0.03 K/uL Sodium Level 139 mmol/L Potassium Level 4.2 mmol/L Chloride Level 105 mmol/L Carbon Dioxide Level 24 mmol/L Anion Gap 10.0 mmol/L Blood Urea Nitrogen 17 mg/dl Creatinine 1.10 mg/dl Est Creatinine Clear Calc Drug Dose 81.1 ml/min Estimated GFR () 81.8 Estimated GFR (Non- 70.6 BUN/Creatinine Ratio 15.5 Random Glucose 108 mg/dl Calcium Level 8.9 mg/dl Total Bilirubin 2.2 mg/dl Aspartate Amino Transf (AST/SGOT) 31 U/L Alanine Aminotransferase (ALT/SGPT) 26 U/L Alkaline Phosphatase 231 U/L Total Protein 6.7 gm/dl Albumin 1.9 gm/dl Globulin 4.8 gm/dl Albumin/Globulin Ratio 0.4 Bedside Glucose 129 mg/dl Assessment and Plan (1) Gram negative septicemia Assessment & Plan: continue current abx, will order repeat blood cultures. await OR findings, await ID gnr from urine and blood. (2) Post op infection
[2017-05-03] MEDS ORDERED: FENTANYL CITRATE INJ 50 MCG/1 ML 2 ML VIAL IV PRN (16:00)
[2017-05-03] MEDS ORDERED: ATROPINE SULFATE 0.1 MG/ML 5ML SYR IV PRN (16:00)
[2017-05-03] MEDS ORDERED: ONDANSETRON INJ 2 MG/ML 2 ML VIAL IV PRN ×2 (16:00→16:45)
[2017-05-03] MEDS ORDERED: HYDROmorphone INJ 1 MG/ML SYR IV PRN (16:00)
[2017-05-03] MEDS ORDERED: EpHEDrine SULFATE INJ 50 MG/ML AMP IV PRN (16:00)
[2017-05-03] MEDS ORDERED: SODIUM CHLORIDE 0.9% 1000ML 1,000 ML IV SCH ×2 (16:37→17:30)
--- NOTE | 2017-05-03 16:37 | [facility] Post Operative Brief Note ---
Immediate Operative Summary Operative Date May 03, 2017. 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
[2017-05-03] MEDS ORDERED: METOCLOPRAMIDE HCL INJ 5 MG/ML 2 ML VIAL IV PRN (16:45)
[2017-05-03] MEDS ORDERED: NALOXONE HCL 0.4 MG/1 ML VIAL/CARP IV PRN ×2 (16:45)
[2017-05-03] MEDS ORDERED: DO NOT ADMINISTER FLU VACCINE PRN ×3 (16:45)
[2017-05-03] MEDS ORDERED: BISACODYL 10 MG SUPP PR PRN (16:45)
[2017-05-03] MEDS ORDERED: MAGNESIUM HYDROXIDE SUSP 30 ML UDC PO PRN (16:45)
[2017-05-03] MEDS ORDERED: PROMETHAZINE HCL INJ 12.5 MG in SODIUM CHLORIDE 0.9% 50ML 50 ML IV PRN (16:45)
[2017-05-03] MEDS ORDERED: HYDROmorphone HCL 0.5MG/ML 50 ML CASSETTE IV PRN (16:45)
[2017-05-03] MEDS ORDERED: DO NOT ADMINISTER PNEUMOCOCCAL VACCINE PRN ×2 (16:45)
[2017-05-03] MEDS ORDERED: SOD PHOSPHATE/SOD BIPHOSPHATE ENEMA 132 ML BTL PR PRN (16:45)
[2017-05-03] MEDS ORDERED: LARYING-O-JET KIT (LTA) ONE ×2 (17:10)
--- NOTE | 2017-05-03 17:40 | Anesthesiology Progress Note ---
Anesthesia Post Op Note Date & Time May 03, 2017 at 17:40 Vital Signs Pain Intensity: 0 Vital Signs Past 12 Hours Date Time Temp Pulse Resp B/P (MAP) Pulse Ox O2 Delivery O2 Flow Rate FiO2 05/03/17 17:25 73 18 114/61 100 Nasal Cannula 2 05/03/17 17:15 79 15 105/66 100 Mask 10 05/03/17 17:05 78 21 107/63 100 Mask 10 05/03/17 16:59 36.9 82 14 112/63 100 Mask 10 05/03/17 14:05 59 16 94 Room Air 05/03/17 11:37 36.5 62 16 102/64 (77) 94 Room Air 05/03/17 08:50 74 109/62 (78) 05/03/17 08:39 92 Room Air 05/03/17 07:30 Room Air 05/03/17 07:15 36.6 64 16 100/52 (68) 92 Room Air 05/03/17 07:05 72 16 97 Room Air Notes Mental Status: alert / awake / arousable, participated in evaluation Pt Amnestic to Procedure: Yes Nausea / Vomiting: adequately controlled Pain: adequately controlled Airway Patency, RR, SpO2: stable & adequate BP & HR: stable & adequate Hydration State: stable & adequate Anesthetic Complications: no major complications apparent
[2017-05-03] MEDS ORDERED: NURSING VERBAL MED ORDER ONE (18:00)
--- NOTE | 2017-05-03 18:00 | OPERATIVE REPORT ---
DATE OF OPERATION: 05/03/2017 PREOPERATIVE DIAGNOSIS: Epidural abscess, L4-L5. POSTOPERATIVE DIAGNOSES: Same with evidence of loose hardware. PROCEDURES PERFORMED: 1. I&D lumbar spine. 2. Removal of posterior instrumentation L4-L5 lumbar spine. 3. Placement of Stimulan beads with vancomycin and gentamicin in the posterolateral gutters and pedicle screw holes. SURGEON: Dr. Todd Gray. FIELD OPERATIONS MANAGER: Inna Barreto PA-C. Due to the complex nature of the procedure, the entire surgery was performed with the critical care physician assistant of ANJALI Lewis.? The diversional therapist's assistant, under direct supervision, was involved in the actual performance of all aspects of the surgical procedure including hemostasis, tissue retraction and incision, instrument management, patient positioning, and wound closure. ANESTHESIA: General. DISPOSITION: The patient awakened and taken to PACU in stable condition. HISTORY OF PATIENT'S PROBLEMS: A 62-year-old male presents with above-mentioned diagnosis. After marked concern of loose hardware and worsening epidural abscess with neurologic decline, we elected to undergo I&D lumbar spine. Risks, benefits, pros, cons, and alternatives were outlined in detail preoperatively. DESCRIPTION OF PROCEDURE: The patient was met with preoperatively, case discussed and all questions were addressed. At that point the patient was taken back to the operative suite and after undergoing successful general intubation by the department of anesthesia was placed in prone position on Mark table atop the Rustam frame. All bony prominences were padded and the eyes were inspected to ensure there was no external pressure placed upon them. At this point, lumbar spine was prepped and draped in normal sterile fashion. Sharp dissection with the assistance of Bovie cautery was performed down to and exposing the hardware at L4-L5. Obvious fluid collection purulent in nature was found in the epidural space. This was evacuated in its entirety, cultures were taken. All loose tissue was debrided and removed. We did proceed to remove the hardware bilaterally. The incision was then copiously irrigated with antibiotic solution. We then placed Stimulan beads prepared with vancomycin and gentamicin into the posterior gutters and the previous pedicle screw holes. A 15 round ANA drain was inserted and incision was closed with 1-0 Vicryl in the fascia, 2-0 Vicryl subcutaneously, 4-0 Monocryl for final skin closure. Steri-Strips and sterile dressing placed. The patient was awakened and taken to PACU in stable condition. I attest to the content of the Intraoperative Record and any orders documented therein. Any exception s are noted below.
[2017-05-03] MEDS: FLUOXETINE HCL 20 MG CAP PO SCH (20:54)
[2017-05-03] MEDS: DOCUSATE SODIUM/SENNA 50/8.6MG TAB PO SCH (20:54)
[2017-05-03] MEDS: PRAMIPEXOLE DIHYDROCHLORIDE 0.5 MG TAB PO SCH (20:54)
[2017-05-04] VITALS (10 sets, daily range): BP systolic 95–131; BP diastolic 54–75; PULSE 48–92; TEMP 36.4–36.8; O2SAT 91–97
[2017-05-04] MEDS: LEVALBUTEROL 1.25MG/3ML NEB INH SCH ×4 (01:28→20:11)
--- NOTE | 2017-05-04 01:55 | PROGRESS NOTE ---
DATE: 05/03/2017 A 62-year-old male admitted with fever and chills. He has had prior surgery for herniated L4-L5 disc. He developed complications after surgery with the site of infection and collection of fluid, and he required additional surgery. Culture grew Staphylococcus aureus. He also had bacteremia secondary to the same bacteria. He has been on IV daptomycin. The patient was readmitted because of fever and chills. Additional imaging studies showed significant problem with the hardware in his back and also a fluid collection. Also 2 blood cultures are growing gram \negative bacilli. Identification is pending. His urine is also growing gram-negative bacilli. His temperature did come down. He is on IV daptomycin and also IV Primaxin. I spoke with Dr. Gray this morning. The patient was taken back to the operating room. Surgery was done. It was tolerated. I saw the patient this morning. He was resting comfortably. He was not having any fever or any chills. No headache. No dizziness. No chest pain or shortness of breath. No abdominal pain. No nausea or vomiting. No edema. PHYSICAL EXAMINATION: GENERAL: Well developed, in no distress. VITAL SIGNS: Blood pressure 100/52, pulse 64, respirations 16, temperature 36.6, oxygen saturation 92% on room air. SKIN: Warm and dry. No rash. HEENT: No mucosal abnormality. Slightly jaundiced. NECK: Supple. No adenopathy, no thyromegaly. No JVD. HEART: Regular heart sounds with 2/6 systolic murmur. LUNGS: Decreased breath sounds. No wheezing, no rhonchi. ABDOMEN: Soft, nontender. BACK: Surgical scar. EXTREMITIES: No edema, clubbing, or cyanosis. TODAY'S LABORATORY TESTS: WBC count 7090, hemoglobin 9.4, hematocrit 27.8, platelet count 94,000. Sodium 139, potassium 4.2, chloride 105, CO2 24, BUN 17, creatinine 1.1, glucose 108, calcium 8.9. Total bilirubin 2.2, AST 31, ALT 26, alkaline phosphatase 231. Total protein 6.7, albumin 1.9. ASSESSMENT: 1. Recurrent infections surgical site, lumbar area. 2. Gram-negative bacilli bacteremia. 3. Urinary tract infection. 4. Sarcoidosis. 5. Type 2 diabetes mellitus. 6. History of ASD, status post repair. PLAN: 1. As noted, patient was taken to the operating room. 2. Continuing the same IV antibiotics. 3. Pending identification of the gram-negative bacilli. 4. Continuing all his medications. Everything will be resumed after surgery. 5. Continue monitoring his blood sugars. 6. Decision as to the continuation of antibiotics, in what form and for how long.
[2017-05-04] MEDS: IMIPENEM/CILASTATIN IV 500 MG in DEXTROSE 5% 100ML 100 ML IV SCH ×4 (04:03→22:42)
[2017-05-04] MEDS ORDERED: NURSING DECISION MEDICATION ORDER SCH (05:30)
[2017-05-04 05:51] LABS: BASO % 0.5 %; BASO ABS # 0.04 K/uL (0-0.2); COMPLETE YES; EOS % 2.7 %; HEMATOCRIT 27.9 % (42-52); IG% 0.6 %; LYMPH % 11.2 %; LYMPH ABS # 0.91 K/uL (1.2-3.4); MEAN CELL VOLUME 95.5 fL (80-100); MEAN CORPUSCULAR HEMOGLOBIN 32.5 pg (25-34); MEAN CORPUSCULAR HGB CONC 34.1 g/dl (32-36); MEAN PLATELET VOLUME 10.1 fL (7.4-10.4); MONO % 11.9 %; NEUT % 73.1 %; PLATELET COUNT 122 K/uL (130-400); RED BLOOD COUNT 2.92 M/uL (4.7-6.1)
[2017-05-04 06:28] LABS: BUN/CREATININE RATIO 16.9 (10-20); CALCIUM 8.5 mg/dl (8.5-10.1); POTASSIUM 4.1 mmol/L (3.5-5.1)
[2017-05-04] MEDS: HYDROmorphone HCL 0.5MG/ML 50 ML CASSETTE IV PRN ×3 (06:56→19:05)
[2017-05-04] MEDS: RESTASIS-ORDER AWAITING ACTION SCH ×3 (06:58→22:42)
[2017-05-04] MEDS: LACTATED RINGER'S 1000ML 1,000 ML IV SCH (07:00)
[2017-05-04] MEDS: DAPTOmycin IV 600 MG in SODIUM CHLORIDE 0.9% 50ML 50 ML IV SCH (08:36)
[2017-05-04] MEDS: POTASSIUM CHLORIDE 20 MEQ TABCR PO SCH ×3 (09:08→22:34)
[2017-05-04] MEDS: ATORVASTATIN 10 MG TAB PO SCH (09:08)
[2017-05-04] MEDS: FLUTICASONE PROPIONATE NA SPR 16 GM BTL NAE SCH (09:08)
[2017-05-04] MEDS: PENTOXIFYLLINE 400MG EXT REL TAB PO SCH ×3 (09:09→22:36)
[2017-05-04] MEDS: FUROSEMIDE 40 MG TAB PO SCH (09:09)
[2017-05-04] MEDS: METOPROLOL TARTRATE 50 MG TAB PO SCH ×2 (09:09→22:35)
[2017-05-04] MEDS: PANTOprazole SOD 40 MG TAB PO SCH ×2 (09:09→22:34)
[2017-05-04] MEDS: SPIRONOLACTONE 25 MG TAB PO SCH (09:10)
[2017-05-04] MEDS: INSULIN ASPART 100 UNITS/ML 3 ML PEN SC SCH ×4 (09:17→21:00)
--- NOTE | 2017-05-04 10:52 | Progress Note ---
Subjective Date of Service: May 04, 2017. Subjective Pt evaluation today including: conversation w/ patient, physical exam, chart review, lab review pt seen in follow up, s/p lumbar I&D, hardware removal yesterday. Increased pain today, lethargic at times during exam. No f/c. no more episodes of rigors since admission. Urine culture growing payne sensitive Klebsiella, initial blood cultures with gnr, not yet identified. Repeat blood cultures pending. OR cultures pending. Remains on imipenem and dapto, tolerating well. Denies any gu symptoms prior to admission, none currently. No abd pain. All remaining ros reviewed and are negative. Problem List Medical Problems: (1) Fall in home Status: Acute (2) Fever Status: Acute (3) Hypoxia Status: Acute (4) Immunocompromised Status: Acute (5) Left leg cellulitis Status: Acute (6) Lumbar disc herniation with radiculopathy Status: Acute (7) Orthostasis Status: Acute (8) Tenosynovitis, de Quervain Status: Acute (9) Vomiting Status: Acute Objective Vital Signs Date Time Temp Pulse Resp B/P (MAP) Pulse Ox O2 Delivery O2 Flow Rate FiO2 05/04/17 08:21 Room Air 05/04/17 08:00 95 Room Air 05/04/17 07:52 36.5 70 18 100/54 (69) 95 Room Air 05/04/17 07:05 92 16 91 Room Air 05/04/17 03:33 36.4 83 16 95/58 (70) 93 Room Air 05/04/17 00:08 Room Air 05/03/17 23:10 36.4 72 18 108/63 (78) 98 Room Air 05/03/17 22:00 36.4 76 18 97/64 (75) 96 Room Air 05/03/17 20:46 36.4 68 16 104/54 (71) 96 Room Air 05/03/17 20:00 66 16 112/66 (81) 99 Nasal Cannula 2.0 05/03/17 19:20 Nasal Cannula 2.0 05/03/17 19:11 70 16 100 Nasal Cannula 05/03/17 19:00 36.6 58 16 102/62 (75) 99 Nasal Cannula 2.0 05/03/17 18:33 36.4 48 16 103/53 (70) 100 Nasal Cannula 2.0 05/03/17 18:00 99 Nasal Cannula 2.0 05/03/17 18:00 36.4 58 16 108/54 (72) 99 Nasal Cannula 2.0 05/03/17 18:00 99 Nasal Cannula 2.0 05/03/17 17:45 64 12 102/46 100 Nasal Cannula 2 05/03/17 17:35 36.4 67 13 105/63 100 Nasal Cannula 2 05/03/17 17:25 73 18 114/61 100 Nasal Cannula 2 05/03/17 17:15 79 15 105/66 100 Mask 10 05/03/17 17:05 78 21 107/63 100 Mask 10 05/03/17 16:59 36.9 82 14 112/63 100 Mask 10 05/03/17 14:05 59 16 94 Room Air 05/03/17 11:37 36.5 62 16 102/64 (77) 94 Room Air Physical Exam General Appearance: WD/WN, no apparent distress Eyes: normal inspection Neck: supple Respiratory/Chest: lungs clear, normal breath sounds, no respiratory distress Cardiovascular: regular rate, rhythm, no edema Abdomen: non tender, soft Extremities: non-tender, normal inspection, no pedal edema Neurologic/Psychiatric: alert, oriented x 3 Skin: normal color Comments: rue picc c/d/i, no surrounding edema, erythema Laboratory Results Item Value Date Time Urine Culture - Preliminary Resulted 05/02/17 0000 Urine , Clean Catch Klebsiella Pneumoniae Blood Culture - Preliminary Resulted 05/02/17 1427 Blood Gram Negative Bacilli Blood Culture - Preliminary Resulted 05/02/17 1437 Blood Gram Negative Bacilli Last 24 Hours Test 05/03/17 12:09 05/03/17 14:52 05/03/17 17:04 05/03/17 18:09 Bedside Glucose 129 mg/dl 153 mg/dl 172 mg/dl 167 mg/dl Test 05/03/17 20:48 05/04/17 05:20 Bedside Glucose 182 mg/dl White Blood Count 8.10 K/uL Red Blood Count 2.92 M/uL Hemoglobin 9.5 g/dL Hematocrit 27.9 % Mean Corpuscular Volume 95.5 fL Mean Corpuscular Hemoglobin 32.5 pg Mean Corpuscular Hemoglobin Concent 34.1 g/dl Platelet Count 122 K/uL Mean Platelet Volume 10.1 fL Neutrophils (%) (Auto) 73.1 % Lymphocytes (%) (Auto) 11.2 % Monocytes (%) (Auto) 11.9 % Eosinophils (%) (Auto) 2.7 % Basophils (%) (Auto) 0.5 % Neutrophils # (Auto) 5.92 K/uL Lymphocytes # (Auto) 0.91 K/uL Monocytes # (Auto) 0.96 K/uL Eosinophils # (Auto) 0.22 K/uL Basophils # (Auto) 0.04 K/uL RDW Standard Deviation 61.5 fL RDW Coefficient of Variation 17.4 % Immature Granulocyte % (Auto) 0.6 % Immature Granulocyte # (Auto) 0.05 K/uL Sodium Level 135 mmol/L Potassium Level 4.1 mmol/L Chloride Level 101 mmol/L Carbon Dioxide Level 26 mmol/L Anion Gap 8.0 mmol/L Blood Urea Nitrogen 17 mg/dl Creatinine 1.00 mg/dl Est Creatinine Clear Calc Drug Dose 89.2 ml/min Estimated GFR () 91.8 Estimated GFR (Non- 79.2 BUN/Creatinine Ratio 16.9 Random Glucose 133 mg/dl Calcium Level 8.5 mg/dl Assessment and Plan (1) Gram negative septicemia Assessment & Plan: will cont current abx pending ID gnr in blood and OR cultures. follow repeat cultures. (2) Post op infection
--- NOTE | 2017-05-04 11:34 | PROGRESS NOTE ---
DATE: 05/04/2017 DATE: 05/04/2017. SUBJECTIVE: Postop day 1. The patient complains of considerable back pain when transitioning to the chair. He is comfortable in bed. Denies any significant leg pain. Vital signs stable. T-max 36.5. ANA drained 10 mL. Hematocrit this a.m. is 27.9, platelets 122. Cultures are pending. ASSESSMENT: Status post incision and drainage lumbar spine. PLAN: At this time, I would recommend simple bed to chair transfers only for the next day or so. Assess his progress. We may need to consider a fci versus rehab placement.
[2017-05-04] MEDS: SODIUM CHLORIDE 0.9% 1000ML 1,000 ML IV SCH (11:59)
[2017-05-04] MEDS: PRAMIPEXOLE DIHYDROCHLORIDE 0.5 MG TAB PO SCH (22:34)
[2017-05-04] MEDS: DOCUSATE SODIUM/SENNA 50/8.6MG TAB PO SCH (22:34)
[2017-05-04] MEDS: FLUOXETINE HCL 20 MG CAP PO SCH (22:34)
[2017-05-05] VITALS (10 sets, daily range): BP systolic 105–134; BP diastolic 64–88; PULSE 76–93; TEMP 36.6–37; O2SAT 94–97
--- NOTE | 2017-05-05 01:31 | PROGRESS NOTE ---
DATE: 05/04/2017 A 62-year-old male admitted by Dr. Gray. He has had prior surgery for herniated L4-L5 disc. Postoperatively, he developed an infection in the surgical site. His culture grew Staphylococcus. He also had Staphylococcus bacteremia. He had been on IV daptomycin. The patient was admitted with fever and chills. He was found to have a fluid collection in the lumbar area at the surgical site. He also had evidence of a urinary tract infection. Two blood cultures were positive for gram-negative bacilli. The patient was taken to the operating room. He had an incision and drainage of the lumbar area. He was found to have an epidural abscess. 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 He also has sleep apnea and arterial hypertension. The patient remains afebrile. He denied any headache. No dizziness. Denied any chest pain. No shortness of breath. No abdominal pain. No nausea, no vomiting. Poor appetite. No problem urinating. No problem with his bowel movements. No swelling in his extremities. PHYSICAL EXAMINATION: GENERAL: Well developed, in no distress. VITAL SIGNS: Blood pressure 100/54, pulse 70, respiration 18, temperature 36.5, oxygen saturation 95% on room air. SKIN: Warm and dry. No rash. HEENT: No mucosal abnormality. NECK: No adenopathy. No JVD. HEART: Regular heart sounds with a 2/6 systolic murmur. LUNGS: Clear. ABDOMEN: Soft, nontender. BACK: Surgical dressing. Drain in place. EXTREMITIES: No edema, clubbing, or cyanosis. LABORATORY TESTS: WBC count 8100, hemoglobin 9.5, hematocrit 27.9, platelet count 122,000. Sodium 135, potassium 4.1, chloride 101, CO2 26, BUN 17, creatinine 1.0, glucose 133, calcium 8.5. ASSESSMENT: 1. Epidural abscess. 2. Postoperative complications with recurrent abscess in the same area. 3. History of Staphylococcus bacteremia. 4. Gram-negative bacilli bacteremia. Identification pending. 5. Urinary tract infection, secondary to Klebsiella. 6. Liver cirrhosis. 7. History of atrial septal defect, status post repair. 8. Type 2 diabetes mellitus. 9. Thrombocytopenia. 10. Obstructive sleep apnea. PLAN: 1. Overall, his condition has improved. His pain is under control. He remains afebrile. 2. Continuing with daptomycin and Primaxin. 3. The final identification, as far as the gram negative bacilli in his blood, is pending. 4. Continue all his medications. 5. Gradual increase in his activity, as dictated by Dr. Gray.
[2017-05-05] MEDS: LEVALBUTEROL 1.25MG/3ML NEB INH SCH ×4 (02:07→19:00)
[2017-05-05] MEDS: IMIPENEM/CILASTATIN IV 500 MG in DEXTROSE 5% 100ML 100 ML IV SCH ×2 (04:02→10:31)
[2017-05-05 05:38] LABS: BASO % 0.4 %; BASO ABS # 0.04 K/uL (0-0.2); COMPLETE YES; EOS % 2.6 %; HEMATOCRIT 29.7 % (42-52); IG% 0.7 %; LYMPH % 11.4 %; LYMPH ABS # 1.02 K/uL (1.2-3.4); MEAN CORPUSCULAR HEMOGLOBIN 31.6 pg (25-34); MEAN CORPUSCULAR HGB CONC 33.7 g/dl (32-36); MEAN PLATELET VOLUME 9.8 fL (7.4-10.4); MONO % 13.5 %; NEUT % 71.4 %; PLATELET COUNT 142 K/uL (130-400); RED BLOOD COUNT 3.16 M/uL (4.7-6.1); WHITE BLOOD COUNT 8.98 K/uL (4.8-10.8)
[2017-05-05 05:42] LABS: INR 1.2 (0.9-1.1); PROTHROMBIN TIME (PATIENT) 12.8 SECONDS (9.0-12.0)
[2017-05-05 06:07] LABS: BUN/CREATININE RATIO 14.9 (10-20); CALCIUM 8.8 mg/dl (8.5-10.1); CREATININE 1.1 mg/dl (0.60-1.40); POTASSIUM 4.1 mmol/L (3.5-5.1)
[2017-05-05 06:10] LABS: ALB/GLOB RATIO 0.4 (0.9-2)
[2017-05-05] MEDS: POLYETHYLENE (MIRALAX) 17 GM PACK PO SCH ×3 (06:14→18:51)
[2017-05-05] MEDS: HYDROmorphone HCL 0.5MG/ML 50 ML CASSETTE IV PRN ×2 (07:12→11:10)
[2017-05-05] MEDS: RESTASIS-ORDER AWAITING ACTION SCH ×2 (08:00→16:00)
[2017-05-05] MEDS: FLUTICASONE PROPIONATE NA SPR 16 GM BTL NAE SCH (08:04)
[2017-05-05] MEDS: DAPTOmycin IV 600 MG in SODIUM CHLORIDE 0.9% 50ML 50 ML IV SCH (08:04)
[2017-05-05] MEDS: SPIRONOLACTONE 25 MG TAB PO SCH (08:05)
[2017-05-05] MEDS: PENTOXIFYLLINE 400MG EXT REL TAB PO SCH ×3 (08:05→21:06)
[2017-05-05] MEDS: METOPROLOL TARTRATE 50 MG TAB PO SCH ×2 (08:05→21:07)
[2017-05-05] MEDS: FUROSEMIDE 40 MG TAB PO SCH (08:06)
[2017-05-05] MEDS: ATORVASTATIN 10 MG TAB PO SCH (08:06)
[2017-05-05] MEDS: POTASSIUM CHLORIDE 20 MEQ TABCR PO SCH ×3 (08:07→21:07)
[2017-05-05] MEDS: INSULIN ASPART 100 UNITS/ML 3 ML PEN SC SCH ×4 (08:50→21:10)
[2017-05-05] MEDS: PANTOprazole SOD 40 MG TAB PO SCH ×2 (09:15→21:07)
--- NOTE | 2017-05-05 10:52 | Progress Note ---
Subjective Date of Service: May 05, 2017. Subjective Pt evaluation today including: conversation w/ patient, physical exam, chart review, lab review pt seen in follow up, less pain today but still requiring pain meds. more awake , appears more comfortable. no f/c overnight. tolerating abx. initial blood culture with k. pneumo as well. OR cultures negative to date but collection drained in OR. Repeat blood cultures negative to date. eating well. no n/v/d. all remaining ros reviewed and are negative. wbc 8.9, tolerating abx. Problem List Medical Problems: (1) Fall in home Status: Acute (2) Fever Status: Acute (3) Hypoxia Status: Acute (4) Immunocompromised Status: Acute (5) Left leg cellulitis Status: Acute (6) Lumbar disc herniation with radiculopathy Status: Acute (7) Orthostasis Status: Acute (8) Tenosynovitis, de Quervain Status: Acute (9) Vomiting Status: Acute Objective Vital Signs Date Time Temp Pulse Resp B/P (MAP) Pulse Ox O2 Delivery O2 Flow Rate FiO2 05/05/17 08:15 77 16 96 Room Air 05/05/17 08:00 Room Air 05/05/17 07:16 36.8 86 16 123/72 (89) 95 Room Air 05/05/17 03:40 36.6 93 16 134/88 (103) 94 Room Air 05/04/17 23:41 36.8 88 22 123/66 (85) 97 Room Air 05/04/17 22:33 92 128/68 (88) 05/04/17 20:11 80 16 95 Room Air 05/04/17 19:30 Room Air 05/04/17 16:00 Room Air 05/04/17 15:10 36.4 74 18 131/75 (93) 91 Room Air 05/04/17 14:27 81 16 94 Room Air 05/04/17 12:09 36.7 48 12 110/70 (83) 93 Room Air Physical Exam General Appearance: WD/WN, no apparent distress Eyes: normal inspection, EOMI Neck: supple Respiratory/Chest: lungs clear, normal breath sounds, no respiratory distress Cardiovascular: regular rate, rhythm, no edema Abdomen: non tender, soft Extremities: non-tender, normal inspection, no pedal edema Neurologic/Psychiatric: alert, oriented x 3 Skin: normal color Comments: pilar drain with min serosang drainage. picc c/d/i Laboratory Results Item Value Date Time Urine Culture - Final Complete 05/02/17 0000 Urine , Clean Catch Klebsiella Pneumoniae Blood Culture - Final Complete 05/02/17 1427 Blood Klebsiella Pneumoniae Blood Culture - Final Complete 05/02/17 1437 Blood Klebsiella Pneumoniae Gram Stain - Final Resulted 05/03/17 1610 Abscess Back Blood Culture - Preliminary Resulted 05/03/17 1925 Blood NO GROWTH TO DATE. Blood Culture - Preliminary Resulted 05/03/172013 Blood NO GROWTH TO DATE. Last 24 Hours Test 05/04/17 11:57 05/04/17 17:06 05/04/17 21:03 05/05/17 05:22 Bedside Glucose 131 mg/dl 197 mg/dl 116 mg/dl White Blood Count 8.98 K/uL Red Blood Count 3.16 M/uL Hemoglobin 10.0 g/dL Hematocrit 29.7 % Mean Corpuscular Volume 94.0 fL Mean Corpuscular Hemoglobin 31.6 pg Mean Corpuscular Hemoglobin Concent 33.7 g/dl Platelet Count 142 K/uL Mean Platelet Volume 9.8 fL Neutrophils (%) (Auto) 71.4 % Lymphocytes (%) (Auto) 11.4 % Monocytes (%) (Auto) 13.5 % Eosinophils (%) (Auto) 2.6 % Basophils (%) (Auto) 0.4 % Neutrophils # (Auto) 6.42 K/uL Lymphocytes # (Auto) 1.02 K/uL Monocytes # (Auto) 1.21 K/uL Eosinophils # (Auto) 0.23 K/uL Basophils # (Auto) 0.04 K/uL RDW Standard Deviation 59.5 fL RDW Coefficient of Variation 17.2 % Immature Granulocyte % (Auto) 0.7 % Immature Granulocyte # (Auto) 0.06 K/uL Prothrombin Time 12.8 SECONDS Prothromb Time International Ratio 1.2 Sodium Level 133 mmol/L Potassium Level 4.1 mmol/L Chloride Level 96 mmol/L Carbon Dioxide Level 30 mmol/L Anion Gap 7.0 mmol/L Blood Urea Nitrogen 16 mg/dl Creatinine 1.10 mg/dl Est Creatinine Clear Calc Drug Dose 81.1 ml/min Estimated GFR () 81.8 Estimated GFR (Non- 70.6 BUN/Creatinine Ratio 14.9 Random Glucose 111 mg/dl Calcium Level 8.8 mg/dl Total Bilirubin 2.3 mg/dl Aspartate Amino Transf (AST/SGOT) 28 U/L Alanine Aminotransferase (ALT/SGPT) 22 U/L Alkaline Phosphatase 213 U/L Total Creatine Kinase 36 U/L Total Protein 7.2 gm/dl Albumin 2.0 gm/dl Globulin 5.2 gm/dl Albumin/Globulin Ratio 0.4 Test 05/05/17 07:56 Bedside Glucose 120 mg/dl Assessment and Plan (1) Gram negative septicemia Assessment & Plan: likely secondary to gu source but with collection seen at hardware, will continue with IV abx. will change to ertapenem for ease of daily dosing. follow OR and repeat blood cultures. continue dapto as planned. dispo pending, ? rehab. will need continued outpt follow up post d/c (2) Post op infection
[2017-05-05] MEDS ORDERED: NURSING VERBAL MED ORDER ONE (11:15)
[2017-05-05] MEDS: ONDANSETRON INJ 2 MG/ML 2 ML VIAL IV PRN (13:34)
[2017-05-05] MEDS: ERTAPENEM IV 1 GM in SODIUM CHLOR 0.9% AD-VAN 50ML 50 ML IV SCH (15:11)
[2017-05-05] MEDS: LORAZEPAM 1 MG TAB PO PRN (15:23)
[2017-05-05] MEDS ORDERED: OXYCODONE HCL IR 5 MG TAB (IMMEDIATE RELEASE) ONE (16:57)
--- NOTE | 2017-05-05 17:26 | PROGRESS NOTE ---
DATE: 05/05/2017 SUBJECTIVE: Back pain is controlled. Leg pain improved. Vital signs are stable. T-max 37.0. ANA drained 35 mL today. Hematocrit stable at 29.7, platelets 142. Cultures from the lumbar spine continue to be demonstrate no growth. PHYSICAL EXAMINATION: He has good strength to testing. He is alert and oriented. ASSESSMENT: Status post incision and drainage lumbar spine. PLAN: At this time, will begin transfers to the chair, ambulate about the room. He has requested discharge with home health and will try to have this arranged.
[2017-05-05] MEDS: HYDROmorphone INJ 1 MG/ML SYR IV PRN (18:12)
[2017-05-05] MEDS: PRAMIPEXOLE DIHYDROCHLORIDE 0.5 MG TAB PO SCH (21:06)
[2017-05-05] MEDS: DOCUSATE SODIUM/SENNA 50/8.6MG TAB PO SCH (21:06)
[2017-05-05] MEDS: FLUOXETINE HCL 20 MG CAP PO SCH (21:07)
[2017-05-06] VITALS (7 sets, daily range): BP systolic 100–142; BP diastolic 62–77; PULSE 74–82; TEMP 36.5–37; O2SAT 92–99
[2017-05-06] MEDS: OXYCODONE HCL IR 5 MG TAB (IMMEDIATE RELEASE) PO PRN ×3 (00:34→16:59)
[2017-05-06] MEDS: POLYETHYLENE (MIRALAX) 17 GM PACK PO SCH ×4 (00:34→18:00)
--- NOTE | 2017-05-06 01:52 | PROGRESS NOTE ---
DATE: 05/05/2017 A 62-year-old male with multiple medical problems includin. Recurrent fluid collection and epidural abscess. 2. Status post surgery for herniated L4-L5 discs. 3. History of Staphylococcus sepsis. 4. Urinary tract infection. 5. Sepsis secondary to Klebsiella pneumonia. 6. Sarcoidosis. 7. Type 2 diabetes mellitus. 8. History of atrial septal defect, status post repair. 9. Sleep apnea. After admission, the patient was taken to the operating room by Dr. Gray. Incision and drainage of the pocket of fluid in the lumbar area was done. Culture was done, still negative. The hardware was removed. The patient continued to feel weak, tired, back pain. Denied any headache or dizziness. No chest pain, no shortness of breath. No abdominal pain, no nausea, no vomiting. No problem with his bowel movements. No problem urinating. No significant edema. PHYSICAL EXAMINATION: GENERAL: Well developed, in no acute distress. VITAL SIGNS: Blood pressure 123/72, pulse 86, respiration 16, temperature 36.8, oxygen saturation 95% on room air. SKIN: Warm and dry. No rash. HEENT: Very minimal jaundice. NECK: Supple without lymph node or thyroid enlargement. No JVD. HEART: Regular heart sounds with 2/6 systolic murmur. LUNGS: Clear. ABDOMEN: Soft, nontender. BACK: Surgical dressing. Drain in place. EXTREMITIES: No edema, clubbing or cyanosis. TODAY'S LABORATORY TESTS: WBC count 8980, hemoglobin 10, hematocrit 29.7, platelet count 142,000. Sodium 133, potassium 4.1, chloride 96, CO2 of 30, BUN 16, creatinine 1.1, glucose 111, calcium 8.8, total bilirubin 2.3, AST 28, ALT 22, alkaline phosphatase 213, total CK 36, total protein 7.2, albumin 2.0. ASSESSMENT: 1. Epidural abscess. 2. History of surgery for herniated L4-L5 discs with postoperative complication with abscess formation. 3. Staphylococcus sepsis, has been on daptomycin IV. 4. Urinary tract infection secondary to Klebsiella pneumonia. 5. Bacteremia secondary to Klebsiella pneumonia. 6. Sarcoidosis. 7. Type 2 diabetes mellitus. 8. Sleep apnea. 9. Liver cirrhosis. PLAN: 1. Continuing the same medications. 2. Working with physical and occupational therapy. 3. Working on discharge planning. Options discussed including [facility] and the rehab hospital. I spoke with his and his daughter this afternoon. They did go to [facility] and visited the facility and they were happy. This is primary choice for now. Referral has already been made. 4. We will wait until Dr. Gray continues to increase his activity and decide on discharge timing.
[2017-05-06] MEDS: HYDROmorphone INJ 1 MG/ML SYR IV PRN ×2 (01:56→11:23)
[2017-05-06] MEDS: LEVALBUTEROL 1.25MG/3ML NEB INH SCH ×4 (03:00→19:12)
[2017-05-06 06:09] LABS: BASO % 0.4 %; BASO ABS # 0.04 K/uL (0-0.2); COMPLETE YES; EOS % 2.2 %; HEMATOCRIT 30.1 % (42-52); IG% 0.9 %; LYMPH % 12.7 %; LYMPH ABS # 1.19 K/uL (1.2-3.4); MEAN CELL VOLUME 93.2 fL (80-100); MEAN CORPUSCULAR HEMOGLOBIN 32.8 pg (25-34); MEAN CORPUSCULAR HGB CONC 35.2 g/dl (32-36); MEAN PLATELET VOLUME 10.1 fL (7.4-10.4); NEUT % 70.8 %; PLATELET COUNT 165 K/uL (130-400); RED BLOOD COUNT 3.23 M/uL (4.7-6.1); WHITE BLOOD COUNT 9.36 K/uL (4.8-10.8)
[2017-05-06 06:46] LABS: BUN/CREATININE RATIO 16.2 (10-20); CALCIUM 9.1 mg/dl (8.5-10.1); CREATININE 1.1 mg/dl (0.60-1.40); POTASSIUM 3.6 mmol/L (3.5-5.1)
[2017-05-06 06:48] LABS: ALB/GLOB RATIO 0.4 (0.9-2)
[2017-05-06] MEDS: RESTASIS-ORDER AWAITING ACTION SCH ×4 (07:00→23:06)
[2017-05-06] MEDS: DAPTOmycin IV 600 MG in SODIUM CHLORIDE 0.9% 50ML 50 ML IV SCH (07:40)
[2017-05-06] MEDS: INSULIN ASPART 100 UNITS/ML 3 ML PEN SC SCH ×4 (08:00→21:35)
[2017-05-06] MEDS: FUROSEMIDE 40 MG TAB PO SCH (08:46)
[2017-05-06] MEDS: PANTOprazole SOD 40 MG TAB PO SCH ×2 (08:46→21:36)
[2017-05-06] MEDS: SPIRONOLACTONE 25 MG TAB PO SCH (08:46)
[2017-05-06] MEDS: ERTAPENEM IV 1 GM in SODIUM CHLOR 0.9% AD-VAN 50ML 50 ML IV SCH (08:47)
[2017-05-06] MEDS: FLUTICASONE PROPIONATE NA SPR 16 GM BTL NAE SCH (08:47)
[2017-05-06] MEDS: ATORVASTATIN 10 MG TAB PO SCH (08:47)
[2017-05-06] MEDS: POTASSIUM CHLORIDE 20 MEQ TABCR PO SCH ×3 (08:47→21:36)
[2017-05-06] MEDS: METOPROLOL TARTRATE 50 MG TAB PO SCH ×2 (08:48→21:37)
[2017-05-06] MEDS: PENTOXIFYLLINE 400MG EXT REL TAB PO SCH ×3 (08:48→21:37)
--- NOTE | 2017-05-06 11:14 | PROGRESS NOTE ---
DATE: 05/06/2017 Complaining mostly of axial back pain, right sided worse than left. He states his leg symptoms are improved. He did get to a chair yesterday a few steps about the room and seemed to be able to tolerate this. Vital signs stable. T-max 36.5. ANA drain down to 5 mL. Hematocrit stable at 30.1. PHYSICAL EXAMINATION: He has good strength to testing. He is alert and oriented. ASSESSMENT: Status post I&D, removal of instrumentation lumbar spine. PLAN: At this time, I think it is safe to remove the drain today. I am considering adding MS Contin 15 mg p.o. b.i.d. for pain control. If this does not work, we may consider consultation with pain management for their guidance. We anticipate discharge Monday, perhaps to a SNF.
[2017-05-06] MEDS: MoRPHine SULFATE CR 15 MG TAB (MS CONTIN) PO SCH ×2 (11:22→21:45)
--- NOTE | 2017-05-06 19:59 | PROGRESS NOTE ---
DATE: 05/06/2017 A 62-year-old male, with multiple problems includin. Recent surgery for herniated L4-L5 disc with postoperative complication with epidural abscess. Blood cultures were positive for Staphylococcus aureus and also the culture from the fluid collection grew the same bacteria. Initially, he was started on vancomycin on 03/24/2017 and subsequently changed to daptomycin at the time he was hospitalized the last time and then transferred to [facility]. After his discharge from [facility], he continued to receive daptomycin in the medical treatment unit daily. 2. Urinary tract infection secondary to Klebsiella. 3. Bacteremia secondary to Klebsiella. 4. Sarcoidosis. 5. Liver cirrhosis. 6. Chronic steroid therapy. 7. Type 2 diabetes mellitus. 8. Sleep apnea. Overall, his condition is stable. He denied any headache. No dizziness, no lightheadedness. He has no chest pain, no shortness of breath. He continues to complain of back pain. He did require additional surgery when he was admitted by Dr. Gray and removal of the hardware. He denied any problem with his bowel movements. No problem urinating. He denied any swelling in his ankles. PHYSICAL EXAMINATION: GENERAL: Well-developed, in no distress. VITAL SIGNS: Blood pressure 142/77, pulse 74, respirations 19, temperature 36.5 and oxygen saturation 99% on room air. SKIN: Warm and dry. No rash. HEENT: No mucosal abnormality. Mild jaundice. NECK: Supple. No JVD. HEART: Regular heart sounds with 2/6 systolic murmur. LUNGS: Clear. ABDOMEN: Soft and nontender. BACK: Surgical dressing. Drain is still in place. EXTREMITIES: No edema, clubbing or cyanosis. TODAY'S LABORATORY TESTS: WBC count 9360, hemoglobin 10.6, hematocrit 30.1 and platelet count 165,000. Sodium 132, potassium 3.6, chloride 94, CO2 31, BUN 18, creatinine 1.1, glucose 102, calcium 9.1, total bilirubin 2.5, AST 27, ALT 21, alkaline phosphatase 214, total protein 7.5 and albumin 2.2. ASSESSMENT: 1. Urinary tract infection. 2. Bacteremia secondary to Klebsiella. 3. Epidural abscess. 4. Status post surgery for herniated L4-L5 disc. He had multiple complications after his surgery. 5. Type 2 diabetes mellitus. 6. Sarcoidosis. 7. History of atrial septal defect requiring repair. 8. Sleep apnea. PLAN: 1. Continuing the same medications. 2. Encouraged him to be out of bed. 3. Continue monitoring his laboratory tests. 4. Working on discharge planning. Multiple consideration including [facility] and [facility].
[2017-05-06] MEDS: DOCUSATE SODIUM/SENNA 50/8.6MG TAB PO SCH (21:36)
[2017-05-06] MEDS: PRAMIPEXOLE DIHYDROCHLORIDE 0.5 MG TAB PO SCH (21:36)
[2017-05-06] MEDS: FLUOXETINE HCL 20 MG CAP PO SCH (21:37)
[2017-05-07] MEDS: HYDROmorphone INJ 1 MG/ML SYR IV PRN (00:15)
[2017-05-07] MEDS ORDERED: NURSING VERBAL MED ORDER ONE ×2 (00:15→15:15)
[2017-05-07] MEDS: LEVALBUTEROL 1.25MG/3ML NEB INH SCH (03:00)
[2017-05-07 05:48] LABS: BASO % 0.2 %; BASO ABS # 0.02 K/uL (0-0.2); COMPLETE YES; EOS % 0.9 %; HEMATOCRIT 31.5 % (42-52); IG% 0.7 %; LYMPH % 9.1 %; LYMPH ABS # 0.97 K/uL (1.2-3.4); MEAN CELL VOLUME 92.6 fL (80-100); MEAN CORPUSCULAR HEMOGLOBIN 31.5 pg (25-34); MEAN PLATELET VOLUME 9.5 fL (7.4-10.4); MONO % 10.7 %; NEUT % 78.4 %; PLATELET COUNT 170 K/uL (130-400)
[2017-05-07 06:21] LABS: BUN/CREATININE RATIO 18.7 (10-20); CALCIUM 9.1 mg/dl (8.5-10.1); CREATININE 1.1 mg/dl (0.60-1.40); POTASSIUM 3.8 mmol/L (3.5-5.1)
[2017-05-07 06:23] LABS: ALB/GLOB RATIO 0.4 (0.9-2)
[2017-05-07 06:59] VITALS: BP 112/69; PULSE 70; TEMP 36.5; O2SAT 95
[2017-05-07 07:55] VITALS: PULSE 85; O2SAT 96
[2017-05-07] MEDS: DAPTOmycin IV 600 MG in SODIUM CHLORIDE 0.9% 50ML 50 ML IV SCH (07:59)
[2017-05-07] MEDS: RESTASIS-ORDER AWAITING ACTION SCH ×2 (07:59→16:00)
[2017-05-07] MEDS: ERTAPENEM IV 1 GM in SODIUM CHLOR 0.9% AD-VAN 50ML 50 ML IV SCH (09:16)
[2017-05-07] MEDS: POTASSIUM CHLORIDE 20 MEQ TABCR PO SCH ×3 (09:17→20:54)
[2017-05-07] MEDS: FUROSEMIDE 40 MG TAB PO SCH (09:17)
[2017-05-07] MEDS: ATORVASTATIN 10 MG TAB PO SCH (09:18)
[2017-05-07] MEDS: SPIRONOLACTONE 25 MG TAB PO SCH (09:18)
[2017-05-07] MEDS: PENTOXIFYLLINE 400MG EXT REL TAB PO SCH ×3 (09:21→20:54)
[2017-05-07] MEDS: METOPROLOL TARTRATE 50 MG TAB PO SCH ×2 (09:21→20:40)
[2017-05-07] MEDS: FLUTICASONE PROPIONATE NA SPR 16 GM BTL NAE SCH (09:21)
[2017-05-07] MEDS: PANTOprazole SOD 40 MG TAB PO SCH ×2 (09:21→20:55)
[2017-05-07] MEDS: OXYCODONE HCL IR 5 MG TAB (IMMEDIATE RELEASE) PO PRN ×3 (09:29→17:13)
[2017-05-07] MEDS: INSULIN ASPART 100 UNITS/ML 3 ML PEN SC SCH ×4 (09:31→21:00)
[2017-05-07] MEDS: MoRPHine SULFATE CR 15 MG TAB (MS CONTIN) PO SCH ×2 (12:09→22:14)
[2017-05-07] MEDS: LEValbuterol HFA 15GM INHALER INH SCH ×2 (13:24→18:53)
[2017-05-07 15:06] VITALS: BP 108/63; PULSE 65; TEMP 36.3; O2SAT 93
[2017-05-07 16:00] VITALS: O2SAT 93
--- NOTE | 2017-05-07 16:17 | PROGRESS NOTE ---
DATE: 05/07/2017 A 62-year-old male with the following problems: 1. Urinary tract infection. 2. Bacteremia secondary to Klebsiella, which is the same bacteria growing in his urine. 3. Recurrent infection at his surgical site, he has had a prior L4-L5 disc surgery. 4. History of staphylococcus bacteremia. 5. Sarcoidosis. 6. Type 2 diabetes mellitus. 7. Sleep apnea. 8. Liver cirrhosis. The patient continued to be on IV daptomycin and currently on ertapenem. He remains afebrile. His condition has improved compared to yesterday. He is resting more comfortably, still having pain but it is more under control. The pain is mostly in his back. He denied any headache. No dizziness. No chest pain, no shortness of breath. No abdominal pain, no nausea, no vomiting. No problem with his bowel movements. No problem urinating. Back pain as noted. No pain in his extremities. PHYSICAL EXAMINATION: GENERAL: Well developed, in no distress. VITAL SIGNS: Blood pressure 112/69, pulse 70, respirations 15, temperature 36.5, oxygen saturation 95% on room air. SKIN: Warm and dry. No rash. HEENT: Slight jaundice. NECK: No JVD. No adenopathy. HEART: Regular heart sounds with 2/6 systolic murmur. LUNGS: Clear. ABDOMEN: Soft, nontender. BACK: Surgical dressing. Drain still in place. EXTREMITIES: No edema, clubbing, or cyanosis. TODAY'S LABORATORY TESTS: WBC count 10,700, hemoglobin 10.7, hematocrit 31.5, platelet count 170,000. Sodium 133, potassium 3.8, chloride 96, CO2 28, BUN 21, creatinine 1.1, glucose 134, calcium 9.1, total bilirubin 2.2, AST 29, ALT 21, alkaline phosphatase 228, total protein 7.5, albumin 2.2. ASSESSMENT: 1. Urinary tract infection secondary to Klebsiella. 2. Bacteremia secondary to Klebsiella. 3. Status post surgery for L4-L5 disc with infectious complications with collection of fluid. The first time the fluid collection did grow staphylococcus. The second time so far, his culture is negative. 4. Liver cirrhosis. 5. Type 2 diabetes mellitus. 6. Chronic steroid therapy. PLAN: 1. As noted, his condition has improved. He is having less pain. He has been out of bed twice so far. 2. Continuing the same medications. 3. Working on discharge planning with the alf facility. 4. The patient has been on IV antibiotic for his staph infection since March 24. The culture from his back at this time is negative. Now we are dealing mostly with his urinary tract infection and urosepsis. 5. Infectious disease will decide on the length of his treatment and which antibiotics to continue.
[2017-05-07] MEDS: PRAMIPEXOLE DIHYDROCHLORIDE 0.5 MG TAB PO SCH (20:40)
[2017-05-07] MEDS: DOCUSATE SODIUM/SENNA 50/8.6MG TAB PO SCH (20:55)
[2017-05-07] MEDS: FLUOXETINE HCL 20 MG CAP PO SCH (20:55)
[2017-05-07 22:52] VITALS: BP 123/75; PULSE 70; TEMP 36.5; O2SAT 98
[2017-05-08] VITALS (7 sets, daily range): BP systolic 103–159; BP diastolic 67–82; PULSE 64–94; TEMP 35.2–36.8; O2SAT 92–100
[2017-05-08] MEDS: LEValbuterol HFA 15GM INHALER INH SCH ×5 (00:08→18:00)
[2017-05-08] MEDS: OXYCODONE HCL IR 5 MG TAB (IMMEDIATE RELEASE) PO PRN (00:24)
[2017-05-08] MEDS: LORAZEPAM 1 MG TAB PO PRN (06:09)
[2017-05-08] MEDS: HYDROmorphone INJ 1 MG/ML SYR IV PRN (06:30)
[2017-05-08] MEDS: RESTASIS-ORDER AWAITING ACTION SCH ×2 (08:00)
[2017-05-08] MEDS: DAPTOmycin IV 600 MG in SODIUM CHLORIDE 0.9% 50ML 50 ML IV SCH (08:28)
[2017-05-08] MEDS: METOPROLOL TARTRATE 50 MG TAB PO SCH ×2 (09:02→20:41)
[2017-05-08] MEDS: ATORVASTATIN 10 MG TAB PO SCH (09:02)
[2017-05-08] MEDS: FUROSEMIDE 40 MG TAB PO SCH (09:03)
[2017-05-08] MEDS: PENTOXIFYLLINE 400MG EXT REL TAB PO SCH ×3 (09:03→20:41)
[2017-05-08] MEDS: SPIRONOLACTONE 25 MG TAB PO SCH (09:03)
[2017-05-08] MEDS: FLUTICASONE PROPIONATE NA SPR 16 GM BTL NAE SCH (09:04)
[2017-05-08] MEDS: POTASSIUM CHLORIDE 20 MEQ TABCR PO SCH ×3 (09:04→20:41)
[2017-05-08] MEDS: PANTOprazole SOD 40 MG TAB PO SCH ×2 (09:04→20:42)
[2017-05-08] MEDS: ERTAPENEM IV 1 GM in SODIUM CHLOR 0.9% AD-VAN 50ML 50 ML IV SCH (09:04)
[2017-05-08] MEDS: INSULIN ASPART 100 UNITS/ML 3 ML PEN SC SCH ×4 (09:12→21:00)
--- NOTE | 2017-05-08 11:21 | Progress Note ---
Subjective Date of Service: May 08, 2017. Subjective Pt evaluation today including: conversation w/ patient, physical exam, chart review, lab review pt seen in follow up, lethargic but denies pain. denies any additonal fevers or shaking chills. cultures reviewed, repeat blood cultures negative. urine and initial blood cultures with payne sensitive k. pneumo. tolerating meds. wbc nml. for d/c to rehab. all remaining ros reviewed and are negative. Problem List Medical Problems: (1) Fall in home Status: Acute (2) Fever Status: Acute (3) Hypoxia Status: Acute (4) Immunocompromised Status: Acute (5) Left leg cellulitis Status: Acute (6) Lumbar disc herniation with radiculopathy Status: Acute (7) Orthostasis Status: Acute (8) Tenosynovitis, de Quervain Status: Acute (9) Vomiting Status: Acute Objective Vital Signs Date Time Temp Pulse Resp B/P (MAP) Pulse Ox O2 Delivery O2 Flow Rate FiO2 05/08/17 07:37 36.7 94 18 159/82 (107) 94 Room Air 05/08/17 07:35 Room Air 05/08/17 00:05 Room Air 05/07/17 22:52 36.5 70 16 123/75 (91) 98 Room Air 05/07/17 16:00 93 Room Air 05/07/17 15:06 36.3 65 16 108/63 (78) 93 Room Air Physical Exam General Appearance: WD/WN Eyes: normal inspection Neck: supple Respiratory/Chest: normal breath sounds, no respiratory distress Cardiovascular: regular rate, rhythm, no edema Abdomen: non tender, soft Extremities: non-tender, normal inspection, no pedal edema Neurologic/Psychiatric: alert, oriented x 3 Skin: normal color Laboratory Results Item Value Date Time Urine Culture - Final Complete 05/02/17 0000 Urine , Clean Catch Klebsiella Pneumoniae Blood Culture - Final Complete 05/02/17 1427 Blood Klebsiella Pneumoniae Blood Culture - Final Complete 05/02/17 1437 Blood Klebsiella Pneumoniae Blood Culture - Preliminary Resulted 05/03/17 1925 Blood NO GROWTH TO DATE. Blood Culture - Preliminary Resulted 05/03/17 2014 Blood NO GROWTH TO DATE. Gram Stain - Final Resulted 05/03/17 1610 Abscess Back Gram Stain - Final Resulted 05/03/17 1610 Abscess Back Last 24 Hours Test 05/07/17 12:01 6/18/17 17:10 05/07/17 20:51 05/08/17 08:15 Bedside Glucose 125 mg/dl 149 mg/dl 155 mg/dl 127 mg/dl Assessment and Plan (1) Gram negative septicemia Assessment & Plan: likely secondary to gu source but with collection seen at hardware, will continue with IV abx. will change to ertapenem for ease of daily dosing. follow OR and repeat blood cultures. continue dapto as planned. dispo pending, ? rehab. will need continued outpt follow up post d/c would give Ertapenem until 05/17, continue dapto as well (OR cultures negative) until 05/17. will need weekly cbc,cmp, esr, cpk while on abx. will need ID follow up (2) Post op infection
[2017-05-08] MEDS: MoRPHine SULFATE CR 15 MG TAB (MS CONTIN) PO SCH (11:39)
--- NOTE | 2017-05-08 13:59 | PROGRESS NOTE ---
DATE: 05/08/2017 SUBJECTIVE: Pain is controlled. Denies any leg pain. Vital signs stable. T-max 36.7. Hematocrit stable at 31.5. OBJECTIVE: On exam, he is comfortable, has good strength to testing lower extremities. ASSESSMENT: Status post incision and drainage. PLAN: At this time, will consult physical therapy, occupational therapy for their input. Hope to transfer to [facility] tomorrow. The patient understands and agrees.
[2017-05-08] MEDS ORDERED: NURSING VERBAL MED ORDER ONE (16:45)
[2017-05-08] MEDS ORDERED: NALOXONE HCL 0.4 MG/1 ML VIAL/CARP IV STA (17:36)
[2017-05-08] MEDS ORDERED: ACETAMINOPHEN IV 650 MG in EMPTY BAG 0 ML IV PRN (17:45)
[2017-05-08] MEDS: KETOROLAC TROMETHAMINE 15 MG/ML VIAL IV PRN (18:00)
[2017-05-08 18:06] LABS: BASO % 0.2 %; BASO ABS # 0.02 K/uL (0-0.2); EOS % 0.6 %; HEMATOCRIT 33.3 % (42-52); IG% 1.3 %; LYMPH % 8.1 %; LYMPH ABS # 0.89 K/uL (1.2-3.4); MEAN PLATELET VOLUME 9.5 fL (7.4-10.4); MONO % 9.5 %; NEUT % 80.3 %; PLATELET COUNT 174 K/uL (130-400); RED BLOOD COUNT 3.62 M/uL (4.7-6.1); WHITE BLOOD COUNT 10.93 K/uL (4.8-10.8)
[2017-05-08 18:10] LABS: COMPLETE YES; MEAN CORPUSCULAR HGB CONC 34.8 g/dl (32-36)
[2017-05-08 18:31] LABS: ALB/GLOB RATIO 0.4 (0.9-2); BUN/CREATININE RATIO 16.1 (10-20); CALCIUM 8.8 mg/dl (8.5-10.1); CREATININE 1.3 mg/dl (0.60-1.40); POTASSIUM 4.2 mmol/L (3.5-5.1)
[2017-05-08] MEDS: BOOST GLUCOSE CONTROL PO SCH (18:58)
[2017-05-08] MEDS: HYDROmorphone INJ 0.5 MG/0.5 ML SYR IV PRN (20:15)
[2017-05-08] MEDS: CYCLOBENZAPRINE HCL 5 MG TAB PO SCH (20:16)
[2017-05-08] MEDS: SODIUM CHLORIDE 0.9% 1000ML 1,000 ML IV SCH (20:18)
[2017-05-08] MEDS: PRAMIPEXOLE DIHYDROCHLORIDE 0.5 MG TAB PO SCH (20:42)
[2017-05-08] MEDS: FLUOXETINE HCL 20 MG CAP PO SCH (20:42)
[2017-05-08] MEDS: DOCUSATE SODIUM/SENNA 50/8.6MG TAB PO SCH (20:42)
[2017-05-08] MEDS: GABAPENTIN 300 MG CAP PO SCH (20:42)
--- NOTE | 2017-05-08 21:50 | PROGRESS NOTE ---
DATE: 05/08/2017 SUBJECTIVE: A 62-year-old male admitted by Dr. Gray. The patient has had prior surgery for L4-L5 disc. Subsequently, he developed an epidural abscess. Grew Staphylococcus. He also had bacteremia with Staphylococcus. At this time, there was a loosening of the hardware and he required additional surgery. He was also found to have an epidural abscess. The culture from that collection has been negative. The patient also had urinary tract infection and bacteremia secondary to Klebsiella. He is currently on daptomycin and ertapenem. The patient continues to complain of pain in his back and his right leg. He has been on multiple pain medications. He has multiple other problems including, sarcoidosis and liver cirrhosis, type 2 diabetes mellitus, sleep apnea, arterial hypertension, peripheral neuropathy. I saw the patient this morning, his condition was stable. His vital signs were normal. He was afebrile. He was communicating. Late this afternoon, his condition has changed. He was markedly lethargic. He is not responding. When I came to see him, his eyes were rolled back. I could ask him to open his eyes and he responds, but that is the extent of it. He was grimacing with pain, but he has had received pain medications including, oxycodone and also IV Dilaudid and also received lorazepam for presumed spasm in his back and right leg. PHYSICAL EXAMINATION: GENERAL: Well-developed. He is very lethargic. Difficult to arouse. VITAL SIGNS: Blood pressure 111/68, pulse 72, respirations 16, temperature 35.2, oxygen saturation 95% on room air. SKIN: Warm and dry. Mild jaundice. HEENT: Mild sclerae, jaundice. NECK: No adenopathy. No JVD. HEART: Regular heart sounds with 2/6 systolic murmur. LUNGS: Clear. ABDOMEN: Soft. Nontender. BACK: Surgical dressing. Drain in place. EXTREMITIES: No edema, clubbing, or cyanosis. No evidence of any inflammation in any of his joints. NEUROLOGIC: Quite lethargic. Difficult to arouse. ASSESSMENT: 1. Mental status changes. 2. Urinary tract infection. 3. Klebsiella bacteremia. 4. Epidural abscess of the lumbar spine post-surgical. 5. Liver cirrhosis. 6. Type 2 diabetes mellitus. 7. Sleep apnea. 8. Jaundice. PLAN: 1. The patient was evaluated. In view of the fact that he received narcotics and his mental status has changed, I did give him 1 dose of Narcan 0.4 mg IV. His mental status improved immediately after that. 2. He was complaining of pain and spasms and I suspected that he may have urinary retention. We scanned his bladder. He did have large volume and I placed a Verma catheter and was able to remove 700 mL of clear urine. 3. I discontinued all his narcotics and sedatives. 4. Starting him on IV Tylenol and IV Toradol. 5. I did speak with Dr. Gray to update him of his condition. 6. He continued to have severe pain. I added Dilaudid, but only 0.5 mg instead of the 1 mg dose every 4 hours as needed. I also started him on Neurontin 300 mg three times a day. He had been on Neurontin in the past. Also given Flexeril for spasms. 7. I did check his laboratory test, including his CBC and chemistry profile and there was really nothing significantly different from prior tests. 8. At this point, we will monitor his condition. Control his pain. Monitor his laboratory tests. Try to increase his activity. 9. We are working on getting him to a facility, where he could receive his therapies and also continue to receive his IV antibiotics, both ertapenem and daptomycin until 05/17/[address] Chen. [facility]
[2017-05-09] VITALS (7 sets, daily range): BP systolic 93–113; BP diastolic 63–70; PULSE 48–81; TEMP 36.3–36.6; O2SAT 94–100
[2017-05-09] MEDS: LEValbuterol HFA 15GM INHALER INH SCH ×4 (00:31→18:00)
--- NOTE | 2017-05-09 08:32 | PROGRESS NOTE ---
DATE: 05/09/2017 DATE: 05/09/2017. SUBJECTIVE: He is much improved today, alert and oriented, sitting in chair at bedside. Vital signs stable. T-max 36.3. Hematocrit stable at 33.3. OBJECTIVE: On exam, he has reasonable strength to testing. ASSESSMENT: Status post incision and drainage and removal of instrumentation. PLAN: At this time, we will obtain x-rays of the lumbar spine today. Anticipate transfer to [facility] in the next day or so.
[2017-05-09] MEDS: BOOST GLUCOSE CONTROL PO SCH ×3 (09:28→17:47)
[2017-05-09] MEDS: DAPTOmycin IV 600 MG in SODIUM CHLORIDE 0.9% 50ML 50 ML IV SCH (09:28)
[2017-05-09] MEDS: ERTAPENEM IV 1 GM in SODIUM CHLOR 0.9% AD-VAN 50ML 50 ML IV SCH (09:29)
[2017-05-09] MEDS: FLUTICASONE PROPIONATE NA SPR 16 GM BTL NAE SCH (09:31)
[2017-05-09] MEDS: PENTOXIFYLLINE 400MG EXT REL TAB PO SCH ×3 (09:34→22:10)
[2017-05-09] MEDS: GABAPENTIN 300 MG CAP PO SCH ×3 (09:35→22:09)
[2017-05-09] MEDS: SPIRONOLACTONE 25 MG TAB PO SCH (09:35)
[2017-05-09] MEDS: ATORVASTATIN 10 MG TAB PO SCH (09:35)
[2017-05-09] MEDS: FUROSEMIDE 40 MG TAB PO SCH (09:37)
[2017-05-09] MEDS: POTASSIUM CHLORIDE 20 MEQ TABCR PO SCH ×3 (09:39→22:09)
[2017-05-09] MEDS: METOPROLOL TARTRATE 50 MG TAB PO SCH ×2 (09:39→22:09)
[2017-05-09] MEDS: CYCLOBENZAPRINE HCL 5 MG TAB PO SCH ×3 (09:40→22:09)
[2017-05-09] MEDS: INSULIN ASPART 100 UNITS/ML 3 ML PEN SC SCH ×4 (09:49→22:13)
[2017-05-09] MEDS: PANTOprazole SOD 40 MG TAB PO SCH ×2 (10:05→22:09)
[2017-05-09] MEDS: SODIUM CHLORIDE 0.9% 1000ML 1,000 ML IV SCH ×2 (10:11→22:13)
--- NOTE | 2017-05-09 13:08 | DIAGNOSTIC IMAGING REPORT ---
LUMBAR SPINE 2 OR 3 VIEWS CLINICAL HISTORY: post op COMPARISON STUDY: None FINDINGS: Findings consistent with lumbar laminectomy and fusion at L4-L5. Minimal grade 1 anterolisthesis of L4 on L5. Disc spacers present at the L4-L5 level. IMPRESSION: Findings consistent with laminectomy and fusion at the L4-L5 level. Disc spacer is present. Electronically signed by: Naga Vázquez M.D. 05/09/2017 1:07 PM Dictated Date/Time: 05/09/2017 1:06 PM
[2017-05-09] MEDS: HYDROmorphone INJ 0.5 MG/0.5 ML SYR IV PRN (17:47)
[2017-05-09] MEDS: DOCUSATE SODIUM/SENNA 50/8.6MG TAB PO SCH (21:00)
[2017-05-09] MEDS: PRAMIPEXOLE DIHYDROCHLORIDE 0.5 MG TAB PO SCH (22:09)
[2017-05-09] MEDS: FLUOXETINE HCL 20 MG CAP PO SCH (22:10)
--- NOTE | 2017-05-09 22:41 | PROGRESS NOTE ---
DATE: 05/09/2017 A 62-year-old male, with multiple problems including a prior surgery for L4-L5 disc herniation with subsequent postoperative complication with epidural abscess on two separate occasions. He also had a Staphylococcus sepsis and also positive culture from the fluid collection in the epidural area initially after surgery. He had been on IV antibiotics since 03/24/2017. Subsequently, the patient was readmitted with loosening of the hardware. He also had a fluid collection which also required drainage. This time, the culture was negative, but the patient had a urinary tract infection and bacteremia secondary to Klebsiella. This morning, his condition has markedly improved. The patient was awake and alert. His pain was controlled. He slept much better last night. No headache or dizziness. No chest pain, no shortness of breath. No abdominal pain, no nausea, no vomiting. His pain is under control. PHYSICAL EXAMINATION: GENERAL: Well-developed, in no distress. VITAL SIGNS: Blood pressure 104/70, pulse 48, respirations 20, temperature 36.3 and oxygen saturation 100% on 1.5 liters oxygen by nasal cannula. SKIN: Warm and dry. No rash. HEENT: Mild conjunctival icterus. NECK: Supple. No adenopathy, no thyromegaly. No JVD. HEART: Regular heart sounds with 2/6 systolic murmur. LUNGS: Clear. ABDOMEN: Soft and nontender. BACK: Surgical dressing. EXTREMITIES: No edema, clubbing or cyanosis. ASSESSMENT: 1. Urinary tract infection secondary to Klebsiella with bacteremia, secondary to the same bacteria. 2. History of epidural abscess. Positive Staphylococcus culture. 3. Status post surgery for herniated L4-L5 disc. 4. Liver cirrhosis. 5. Type 2 diabetes mellitus. 6. History of atrial septal defect with prior repair. 7. Urinary retention. He has a Verma catheter in place since yesterday. PLAN: 1. Overall, his condition has markedly improved. Today, he has been sitting out of bed and he has been working with therapy. 2. Continue working on his discharge planning. 3. We will try to remove the Verma catheter tomorrow.
[2017-05-10] MEDS: LEValbuterol HFA 15GM INHALER INH SCH ×5 (00:23→23:34)
[2017-05-10] MEDS: KETOROLAC TROMETHAMINE 15 MG/ML VIAL IV PRN (05:52)
[2017-05-10 07:15] VITALS: O2SAT 96
[2017-05-10 08:13] VITALS: BP 110/64; PULSE 74; TEMP 36.8; O2SAT 96
[2017-05-10 08:58] VITALS: O2SAT 96
[2017-05-10] MEDS: DAPTOmycin IV 600 MG in SODIUM CHLORIDE 0.9% 50ML 50 ML IV SCH (09:40)
[2017-05-10] MEDS: ERTAPENEM IV 1 GM in SODIUM CHLOR 0.9% AD-VAN 50ML 50 ML IV SCH (09:40)
[2017-05-10] MEDS: BOOST GLUCOSE CONTROL PO SCH ×3 (09:44→17:50)
[2017-05-10] MEDS: FLUTICASONE PROPIONATE NA SPR 16 GM BTL NAE SCH (09:45)
[2017-05-10] MEDS: SPIRONOLACTONE 25 MG TAB PO SCH (09:46)
[2017-05-10] MEDS: CYCLOBENZAPRINE HCL 5 MG TAB PO SCH ×3 (09:46→22:03)
[2017-05-10] MEDS: POTASSIUM CHLORIDE 20 MEQ TABCR PO SCH ×3 (09:47→22:08)
[2017-05-10] MEDS: FUROSEMIDE 40 MG TAB PO SCH (09:48)
[2017-05-10] MEDS: METOPROLOL TARTRATE 50 MG TAB PO SCH ×2 (09:48→22:13)
[2017-05-10] MEDS: ATORVASTATIN 10 MG TAB PO SCH (09:49)
[2017-05-10] MEDS: GABAPENTIN 300 MG CAP PO SCH ×3 (09:49→22:04)
[2017-05-10] MEDS: PANTOprazole SOD 40 MG TAB PO SCH ×2 (09:51→22:05)
[2017-05-10] MEDS: PENTOXIFYLLINE 400MG EXT REL TAB PO SCH ×3 (09:51→22:11)
[2017-05-10] MEDS: INSULIN ASPART 100 UNITS/ML 3 ML PEN SC SCH ×4 (09:53→22:15)
[2017-05-10 11:41] VITALS: BP 94/58; PULSE 68; TEMP 36.9; O2SAT 99
[2017-05-10] MEDS: SODIUM CHLORIDE 0.9% 1000ML 1,000 ML IV SCH (12:48)
--- NOTE | 2017-05-10 15:08 | Discharge Instructions ---
Discharge Instructions Date of Service May 10, 2017. Admission Reason for Admission: Recurrent Lumbar Spine Infection Discharge Discharge Diagnosis / Problem: hardware removal Discharge Goals Goal(s): Improve function Activity Recommendations Activity Limitations: per Instructions/Follow-up section . Instructions / Follow-Up Instructions / Follow-Up ACTIVITY RECOMMENDATIONS: SELF CARE INSTRUCTIONS AFTER THORACIC/LUMBAR FUSIONS 1. You may walk to your tolerance. It is good exercise for your legs and back. Expect some back and intermittent leg aches and pains. 2. You may perform "counter-top" level activities (make a sandwich, ryan with a project, etc.). 3. No bending or lifting of more than 10 pounds or back twisting of any nature (roll like a log when turning in bed). 4. You may ride in a car for 20-30 minutes at a time. No driving until after your first visit with your doctor. 5. Frequent changes of position and restricting sitting to 30 minutes at a time will help limit the amount of back spasms and stiffness you may experience. 6. You may discontinue the use of ambulatory aids (cane, crutches, etc.) once your strength and confidence allow. 7. You may final assembly and packing supervisor the shower and let water strike your incision when you arrive home at least once daily. Do not take a tub bath, sit in a hot tub or go into a swimming pool until after your first recheck in the office. SPECIAL CARE INSTRUCTIONS: VERY IMPORTANT TO READ AND REVIEW A. Your surgical incision has been closed with a cosmetic suture under the skin that will dissolve in about 6 weeks. In 14 days, you can use a pair of clean scissors and cut the suture that is left outside of the skin at the ends of your incision. 1. The small skin tapes can be removed 7 days after surgery if they have not fallen off by that point. 2. You may keep the wound open to air as much as possible to promote healing after post-op day number 5 unless told otherwise by your doctor. 3. If you think the wound looks like it is becoming infected (redness or worsening drainage) and/or you are experiencing fever, chill or worsening back pain and muscle spasms, contact the office so that we may evaluate you as soon as possible. B. Complications are uncommon, but please contact us if you have any signs or symptoms of: 1. wound infection (fever higher than 102.5 degrees F, redness, separation of wound, drainage, or increasing pain from the incision) 2. blood clots in legs (pain, swelling, redness and warmth in legs) 3. urinary tract infection (fever higher than 102.5 degrees F, burning upon urination or increased frequency of urination) 4. nerve problems (inability to walk on your toes or heels, numbness, loss of bowel or bladder control) 5. any other symptoms that concern you C. Please call the office at if you have any concerns or questions about your operation or recovery. D. No smoking! Smoking drastically decreases the chance of a solid fusion. E. Do not take any anti-inflammatory medications (Indocin, Advil, Motrin, Aspirin, Naprosyn, etc.) as these may inhibit the chance of a solid fusion. Tylenol is okay to take for pain. MANAGING PAIN AFTER SPINAL SURGERY 1. Narcotic medication is intended for short-term use and will be provided for surgical pain. Surgical pain usually lasts for a period of 4-6 weeks. Narcotic medication includes Percocet, Vicodin, Darvocet, Tylenol #3 or Lortab. 2. Longer-term pain is more appropriately treated with non-narcotic medication such as Tylenol ES. 3. Muscle spasm is not appropriately treated with narcotics. Muscle relaxers such as Soma, Flexeril or Skelaxin can be used along with Tylenol ES. 4. Remember that we all live with some "aches and pains". This is not unusual or uncommon after an injury or as we get older. a. Back pain is expected and may include muscle spasms for 4 to 6 weeks after surgery. The pain should gradually improve. If the pain worsens for no apparent reason, please contact the office. b. Intermittent leg pain may also be experienced and should not be concerned about unless it worsens for no apparent reason. If so, please contact the office. 5. We will provide appropriate medication within the normal guidelines of their prescribed use. We will also be very cautious and aware of potential abuse and extended duration of patients' medication needs. a. Pain medications are for your comfort and to assist with sleep and rest so that the tissue can heal. They are not provided in order to return to normal activity and should not be used through the day. To do so or worsening pain at night can result from ongoing tissue damage and development of tolerance to the prescribed medicine. 6. Please allow 2-3 days to process refills. Prescriptions will not be mailed but must be picked up at the office. FOLLOW UP VISIT: Keep your scheduled follow-up appointment. Any questions, please call the office at . Current Hospital Diet Patient's current hospital diet: Diabetes Type 2 Diet Discharge Diet Recommended Diet: Regular Diet Procedures Procedures Performed: Incision and drainage of the lumbar spine, hardware removal at L4-L5. Pending Studies Studies pending at discharge: no Medical Emergencies . Who to Call and When: Medical Emergencies: If at any time you feel your situation is an emergency, please call 911 immediately. . Non-Emergent Contact Non-Emergency issues call your: Primary Care Provider . "Provider Documentation" section prepared by Todd Gray. . VTE Core Measure Inpt VTE Proph given/why not?: Tatianna Moon, [facility]
[2017-05-10 15:26] VITALS: BP 99/58; PULSE 72; TEMP 37; O2SAT 99
--- NOTE | 2017-05-10 15:33 | PROGRESS NOTE ---
DATE: 05/10/2017 He is alert and oriented today. Feels his pain is reasonably controlled. Still some right-sided back pain. He has been getting to his chair regularly. Vital signs stable. T-max 36.9. Hematocrit stable at 33.3. On exam, he has good strength to testing. Appears comfortable. ASSESSMENT: Status post incision and drainage of lumbar spine. PLAN: At this time, we are awaiting disposition hopefully to [facility] or nursing facility tomorrow.
[2017-05-10] MEDS: DOCUSATE SODIUM/SENNA 50/8.6MG TAB PO SCH (22:06)
[2017-05-10] MEDS: PRAMIPEXOLE DIHYDROCHLORIDE 0.5 MG TAB PO SCH (22:08)
[2017-05-10] MEDS: FLUOXETINE HCL 20 MG CAP PO SCH (22:10)
--- NOTE | 2017-05-10 22:34 | PROGRESS NOTE ---
DATE: 05/10/2017 A 62-year-old male, who underwent a surgery for L4-L5 disc herniation. Subsequently, he had evidence of an epidural abscess. The culture grew Staphylococcus. He had 2 blood cultures that were also positive for Staphylococcus. He was treated initially with vancomycin and then daptomycin. His antibiotic was started on 03/24/2017. Subsequently, he went to [facility] and then home. He had to be re-admitted with multiple problems. He had a urinary tract infection. Two blood cultures were positive for Klebsiella. He has been on IV antibiotics; initially Primaxin and now he is on ertapenem. His medical history is quite extensive with sarcoidosis, type 2 diabetes mellitus, sleep apnea, liver cirrhosis and history of ASD that required repair. His condition has slightly improved. His mental status has improved. He denied any headache. No dizziness. No chest pain. No shortness of breath. No abdominal pain. He has had multiple bowel movements. He had urinary retention. He had a Verma catheter in place. He continues to complain of low back pain, but overall level of the pain has markedly improved. There is no weakness in his legs related to any neurological deficits. PHYSICAL EXAMINATION: GENERAL: Well-developed, in no distress. VITAL SIGNS: Blood pressure 110/64, pulse 74, respirations 20, temperature 36.8 and oxygen saturation 96% on room air. SKIN: Warm and dry. No rash. HEENT: No evidence of any mucosal abnormalities. NECK: No JVD. No adenopathy. HEART: Regular heart sounds with 2/6 systolic murmur. LUNGS: Clear. ABDOMEN: Soft and nontender. EXTREMITIES: No edema, clubbing or cyanosis. ASSESSMENT: 1. Epidural abscess. 2. Urinary tract infection. 3. Klebsiella bacteremia. 4. History of epidural abscess with Staphylococcus isolated in the culture. 5. History of Staphylococcus bacteremia. 6. Liver cirrhosis. 7. Type 2 diabetes mellitus. 8. Sleep apnea. 9. Sarcoidosis. 10. Chronic steroid therapy. PLAN: 1. His Verma catheter was removed. 2. Continuing the same medications. 3. Continuing with his therapies. 4. Working on trying to finalize his discharge planning to [facility] or a nursing home facility. He will need to continue both IV antibiotics, daptomycin and ertapenem until 05/17/[address] Chen.
[2017-05-10 22:54] VITALS: BP 126/72; PULSE 85; TEMP 36.7; O2SAT 97
[2017-05-11] VITALS (7 sets, daily range): BP systolic 93–118; BP diastolic 51–67; PULSE 68–88; TEMP 36.7–37.1; O2SAT 93–98
[2017-05-11] MEDS: SODIUM CHLORIDE 0.9% 1000ML 1,000 ML IV SCH ×2 (01:52→13:06)
[2017-05-11] MEDS: LEValbuterol HFA 15GM INHALER INH SCH ×4 (05:45→23:28)
[2017-05-11] MEDS: ERTAPENEM IV 1 GM in SODIUM CHLOR 0.9% AD-VAN 50ML 50 ML IV SCH (08:37)
[2017-05-11] MEDS: DAPTOmycin IV 600 MG in SODIUM CHLORIDE 0.9% 50ML 50 ML IV SCH (08:37)
[2017-05-11] MEDS: BOOST GLUCOSE CONTROL PO SCH ×3 (08:37→17:50)
[2017-05-11] MEDS: FLUTICASONE PROPIONATE NA SPR 16 GM BTL NAE SCH (08:37)
[2017-05-11] MEDS: SPIRONOLACTONE 25 MG TAB PO SCH (08:39)
[2017-05-11] MEDS: FUROSEMIDE 40 MG TAB PO SCH (08:39)
[2017-05-11] MEDS: GABAPENTIN 300 MG CAP PO SCH ×3 (08:40→21:48)
[2017-05-11] MEDS: POTASSIUM CHLORIDE 20 MEQ TABCR PO SCH ×3 (08:40→21:50)
[2017-05-11] MEDS: ATORVASTATIN 10 MG TAB PO SCH (08:40)
[2017-05-11] MEDS: METOPROLOL TARTRATE 50 MG TAB PO SCH ×2 (08:41→21:00)
[2017-05-11] MEDS: PENTOXIFYLLINE 400MG EXT REL TAB PO SCH ×3 (08:41→21:48)
[2017-05-11] MEDS: PANTOprazole SOD 40 MG TAB PO SCH ×2 (08:41→21:48)
[2017-05-11] MEDS: CYCLOBENZAPRINE HCL 5 MG TAB PO SCH ×3 (08:42→21:48)
[2017-05-11] MEDS: INSULIN ASPART 100 UNITS/ML 3 ML PEN SC SCH ×4 (09:24→21:44)
--- NOTE | 2017-05-11 14:54 | PROGRESS NOTE ---
DATE: 05/11/2017 SUBJECTIVE: Back pain controlled. Leg pain improved. Vital signs stable. T-max 36.1. Bowels working well. Hematocrit stable at 33.3. On exam, he has reasonable strength to testing, is relatively comfortable. ASSESSMENT: Status post incision and drainage lumbar spine. PLAN: At this time, we are awaiting placement. The patient understands and agrees.
[2017-05-11] MEDS: KETOROLAC TROMETHAMINE 15 MG/ML VIAL IV PRN (17:15)
[2017-05-11] MEDS: PRAMIPEXOLE DIHYDROCHLORIDE 0.5 MG TAB PO SCH (21:48)
[2017-05-11] MEDS: DOCUSATE SODIUM/SENNA 50/8.6MG TAB PO SCH (21:48)
[2017-05-11] MEDS: FLUOXETINE HCL 20 MG CAP PO SCH (21:48)
--- NOTE | 2017-05-11 23:43 | PROGRESS NOTE ---
DATE: 05/11/2017 A 62-year-old male with multiple problems includin. Recent surgery for herniated L4-L5 disc. 2. Postoperative complications with epidural abscess secondary to staphylococcus with staphylococcus bacteremia. 3. CSF leak. 4. Re-hospitalization with urinary tract infection secondary to Klebsiella with 2 blood cultures positive for Klebsiella. 5. Type 2 diabetes mellitus. 6. Sarcoidosis. 7. History of atrial septal defect requiring repair. 8. Sleep apnea. 9. Liver cirrhosis. He remains afebrile. He is continued on IV antibiotics. He is currently on daptomycin and ertapenem. The plan is to continue both medications until 05/17/2017. The patient has had recurrent problem with confusion. He denied any headache or dizziness. No chest pain. No shortness of breath. No abdominal pain, no nausea, no vomiting. He had urinary retention and required a Verma catheter. It was removed. He is voiding. No problem with his bowel movements. His back pain and pain in his right leg persist but seem to be under control. PHYSICAL EXAMINATION: GENERAL: Well developed, in no distress. VITAL SIGNS: Blood pressure 112/58, pulse 78, respirations 24, temperature 36.7, oxygen saturation 94% on room air. SKIN: Warm and dry. No rash. HEENT: No mucosal abnormality. Slight jaundice. NECK: Supple. No adenopathy. No JVD. HEART: Regular heart sounds with 2/6 systolic murmur. LUNGS: Clear. ABDOMEN: Soft, nontender. BACK: Surgical scar. EXTREMITIES: No edema, clubbing, or cyanosis. ASSESSMENT: 1. Urinary tract infection secondary to Klebsiella. 2. Bacteremia secondary to Klebsiella. 3. Epidural abscess. 4. Status post surgery for L4-L5 disc. 5. Liver cirrhosis. 6. Type 2 diabetes mellitus. 7. Sleep apnea. 8. Sarcoidosis. PLAN: 1. Continuing the same medications. 2. Continue with therapies. 3. Still working on his discharge planning. Waiting for final approval. 4. He will continue his IV antibiotics until 05/17/2017. 5. As soon as we have final approval and final decision as far as where he is going to go for his rehabilitation, we will proceed with that.
[2017-05-12] MEDS: LEValbuterol HFA 15GM INHALER INH SCH ×2 (05:30→13:23)
[2017-05-12 07:24] VITALS: BP 101/52; PULSE 89; TEMP 37; O2SAT 92
[2017-05-12] MEDS: INSULIN ASPART 100 UNITS/ML 3 ML PEN SC SCH ×2 (08:00→13:29)
[2017-05-12] MEDS: BOOST GLUCOSE CONTROL PO SCH ×2 (09:04→13:22)
[2017-05-12] MEDS: DAPTOmycin IV 600 MG in SODIUM CHLORIDE 0.9% 50ML 50 ML IV SCH (09:04)
[2017-05-12] MEDS: ERTAPENEM IV 1 GM in SODIUM CHLOR 0.9% AD-VAN 50ML 50 ML IV SCH (09:04)
[2017-05-12] MEDS: FLUTICASONE PROPIONATE NA SPR 16 GM BTL NAE SCH (09:17)
[2017-05-12] MEDS: PENTOXIFYLLINE 400MG EXT REL TAB PO SCH ×2 (09:18→13:24)
[2017-05-12] MEDS: METOPROLOL TARTRATE 50 MG TAB PO SCH (09:18)
[2017-05-12] MEDS: CYCLOBENZAPRINE HCL 5 MG TAB PO SCH ×2 (09:19→13:24)
[2017-05-12] MEDS: SPIRONOLACTONE 25 MG TAB PO SCH (09:19)
[2017-05-12] MEDS: PANTOprazole SOD 40 MG TAB PO SCH (09:19)
[2017-05-12] MEDS: POTASSIUM CHLORIDE 20 MEQ TABCR PO SCH ×2 (09:20→13:24)
[2017-05-12] MEDS: ATORVASTATIN 10 MG TAB PO SCH (09:21)
[2017-05-12] MEDS: GABAPENTIN 300 MG CAP PO SCH ×2 (09:21→13:24)
[2017-05-12] MEDS: FUROSEMIDE 40 MG TAB PO SCH (09:21)
[2017-05-12 10:48] VITALS: BP 110/69; PULSE 103; O2SAT 96
[2017-05-12 13:12] VITALS: BP 101/52; PULSE 89; TEMP 37; O2SAT 92
--- NOTE | 2017-05-22 10:15 | Discharge Summary ---
Orthopedic Discharge Summary Admission Date/Reason May 02, 2017 at 11:38 Recurrent Lumbar Spine Infection. Discharge Date/Disposition May 11, 2017 care home facility Diagnosis Principal Diagnosis: lumbar infection, hardware failure lumbar spine Secondary Diagnoses/Problems: urosepsis Procedure(s) Performed removal hardware lumbar spine, Iand D lumbar spine Consultations infectious disease Medication Reconciliation Continued Medications: Cyclosporine (Ophth) (Restasis) 0.05 % Emu 1 DROP OPB BID Daptomycin (Daptomycin) 500 Mg Inj 600 MG IV Q24H for 35 Days Esomeprazole Magnesium (Nexium) 40 Mg Cap 40 MG PO BID, CAP Fluoxetine (Prozac) 40 Mg Cap 40 MG PO HS, CAP Heparin Sodium (Porcine) Lock (Heparin Lock Flush) 10 Unit/Ml Inj 5 ML FLUSH PRN PRN for FLUSH for 90 Days Insulin Aspart (Novolog Penfill) 100 Unit/Ml Inj SC AC SLIDING SCALE BS 120 OR GREATER 20 UNITS BS 160 40 UNITS Levalbuterol (Levalbuterol HCl) 1.25 Mg/3 Ml Nebu 1.25 MG INH Q6R for 15 Days Mometasone Furoate (Nasal) (Mometasone Furoate) 50 Mcg/Act Spr 2 SPRAYS JORGE DAILY Pentoxifylline (Trental) 400 Mg Tab 400 MG PO TID, TAB Pramipexole Dihydrochloride (Pramipexole Dihydrochlori) 1 Mg Tab 1 MG PO HS Prednisone Tab (Prednisone) 10 Mg Tab 10 MG PO QAM, TAB Spironolactone (Spironolactone) 25 Mg Tab 25 MG PO QAM for 90 Days, #90 TAB Discontinued Medications: Oxycodone/Acetaminophen 5MG/325MG (Percocet 5MG/325MG) Tab 1-2 TABLETS PO Q4H PRN for Pain for 30 Days, #60 TAB PAIN Admission Physical Exam As per Admitting History & Physical. Discharge Instructions Please refer to the electronic Patient Visit Report (Discharge Instructions) for additional information.
[2017-08-01] MEDS ORDERED: CNCI50 IV (08:17)
== END 2017-05-12 13:53 | DRG 856 ==
LOC: C.MSN 11:38
PROVIDERS: ADMIT Orthopaedic Surgery Orthopaedic Surgery of the Spine; ATTEND Orthopaedic Surgery Orthopaedic Surgery of the Spine
PROC: 0JC70ZZ Extirpation of Matter from Back Subcutaneous Tissue and Fascia, Open Approach (ICD-10-PCS; principal; 2017-05-03 15:15)
PROC: 009Y00Z Drainage of Lumbar Spinal Cord with Drainage Device, Open Approach (ICD-10-PCS; principal; 2017-05-03 15:15)
PROC: 3E0U029 Introduction of Other Anti-infective into Joints, Open Approach (ICD-10-PCS; principal; 2017-05-03 15:15)
PROC: 0QP004Z Removal of Internal Fixation Device from Lumbar Vertebra, Open Approach (ICD-10-PCS; principal; 2017-05-03 15:15)
DX: T81.4XXA Infection following a procedure, initial encounter (principal); G06.1 Intraspinal abscess and granuloma; T84.328A Displacement of other bone devices, implants and grafts, initial encounter; A41.01 Sepsis due to Methicillin susceptible Staphylococcus aureus; N39.0 Urinary tract infection, site not specified; L03.114 Cellulitis of left upper limb; D86.9 Sarcoidosis, unspecified; E11.9 Type 2 diabetes mellitus without complications; I10 Essential (primary) hypertension; G47.30 Sleep apnea, unspecified; Z79.52 Long term (current) use of systemic steroids; K74.60 Unspecified cirrhosis of liver; G47.33 Obstructive sleep apnea (adult) (pediatric); Z88.0 Allergy status to penicillin; M51.26 Other intervertebral disc displacement, lumbar region; Y83.8 Other surgical procedures as the cause of abnormal reaction of the patient, or of later complication, without mention of misadventure at the time of the procedure; Y92.009 Unspecified place in unspecified non-institutional (private) residence as the place of occurrence of the external cause; Y79.2 Prosthetic and other implants, materials and accessory orthopedic devices associated with adverse incidents

== ENCOUNTER 2017-05-19 10:47 | Inpatient (IN) | payer BC, OTHER ==
[~2017-05-19] VITALS: Ht 170.2 cm; Wt 79.1 kg
[2017-05-19] VITALS (9 sets, daily range): BP systolic 88–110; BP diastolic 49–82; PULSE 79–93; TEMP 36.7–37; O2SAT 94–99; Ht 170.2 cm; Wt 79.1 kg
[~2017-05-19 10:47] MED LIST changes: -OXYC-57 PO
[2017-05-19 12:07] LABS: BASO % 0.3 %; BASO ABS # 0.02 K/uL (0-0.2); COMPLETE YES; EOS % 0.7 %; HEMATOCRIT 31.4 % (42-52); IG% 0.4 %; LYMPH % 7.6 %; LYMPH ABS # 0.55 K/uL (1.2-3.4); MEAN CORPUSCULAR HEMOGLOBIN 31.1 pg (25-34); MEAN CORPUSCULAR HGB CONC 33.1 g/dl (32-36); MEAN PLATELET VOLUME 10.1 fL (7.4-10.4); MONO % 11.4 %; NEUT % 79.6 %; PLATELET COUNT 188 K/uL (130-400); RED BLOOD COUNT 3.34 M/uL (4.7-6.1); WHITE BLOOD COUNT 7.27 K/uL (4.8-10.8)
[2017-05-19] MEDS ORDERED: SODIUM CHLORIDE 0.9% 1000ML 1,000 ML IV STA (12:07)
[2017-05-19] MEDS ORDERED: SODIUM CHLORIDE 0.9% 500ML 500 ML IV STA (12:07)
--- NOTE | 2017-05-19 12:16 | EMERGENCY ROOM VISIT NOTE ---
History Report prepared by Teresa: Galindo Prado Under the Supervision of: Dr. Cehy Diehl M.D. First contact with patient: 12:04 Chief Complaint: ALTERED MENTAL STATUS Stated Complaint: CONFUSION/TREMORS Nursing Triage Summary: pt arrived als from [facility] for an evaluation regarding his base line since february of altered mental status with tremors reported pt had a surgery on lumbar in february and ever since has tremors and is altered pt was dc from [facility] march 06 back surgery, april 05 infected picc line on iv antibiotics since, may 06barterial infection with uti [place] at [facility] picc line was pulled and cultured hx of sarcoid cirrhosis History of Present Illness The patient is a 62 year old male who presents to the Emergency Room from [facility] with complaints of worsened altered mental status starting a few days ago. The patient recently had 3 back surgeries and was discharged from [facility] about a week ago. The patient recently had a osteomyelitis of the spine and urinary tract infection and has completed 8 weeks of intravenous antibiotics. He apparently began to spike fevers towards the end of the course of treatment. He also has a history of liver cirrhosis, spleen issues, and sarcoidosis. He recently had blood work and his ammonia levels were coming down. He has been having intermittent fevers for the past few days. The patient's current symptoms are worse than they were with the staph infection and UTI. He has been having shakiness and moving his arms around which is new. He has been urinating as normal. He has had a loss of appetite. The patient has lost 50 pounds since February. HPI is limited secondary to altered mental status. Additional history is obtained as per . Source of History: patient History Limited By: AMS Onset: a few days ago Position: other (global) Quality: other (altered mental status) Timing: other (worsened) Associated Symptoms: + fevers Review of Systems ROS is limited secondary to altered mental status. 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 SARCOIDOSIS. DM2,POST LUMBAR DISC SURGERY (9) HERNIATED L4-L5 DISC (10) Hyperlipidemia (11) Hypertension (12) Infection of lumbar spine (13) Kidney stone (14) Lumbar stenosis with neurogenic claudication (15) Meningitis (16) MSC. FEVER.,?MENINGITIS,DM2,SARCOIDOSIS,SLEEP APNEA (17) Obesity (18) Post op infection (19) Sarcoidosis (20) Septal defect (21) SEVERE CELLULITIS L LEG,SEPSIS SYNDROME (22) Sleep apnea (23) Thrombocytopenia Family History Patient reports no known family medical history. Social History Smoking Status: Unknown if Ever Smoked Alcohol Use: none Drug Use: none Marital Status: Housing Status: lives with family Occupation Status: retired Current/Historical Medications Scheduled Cyclobenzaprine Hcl (Flexeril), 5 MG PO Q8 Cyclosporine (Ophth) (Restasis), 1 DROP OPB BID Daptomycin (Daptomycin), 600 MG IV Q24H Esomeprazole Magnesium (Nexium), 40 MG PO BID Fluoxetine (Prozac), 40 MG PO HS Furosemide (Lasix), 60 MG PO DAILY Gabapentin (Neurontin), 300 MG PO Q8 Insulin Aspart (Novolog Penfill), SC AC Lactulose (Chronulac), 30 ML PO TID Levalbuterol (Levalbuterol HCl), 1.25 MG INH Q6R Metoprolol Tartrate (Lopressor) (Lopressor), 50 MG PO AMPM Mometasone Furoate (Nasal) (Mometasone Furoate), 2 SPRAYS JORGE DAILY Pentoxifylline (Trental), 400 MG PO TID Potassium Ext Rel (Klor-Con), 20 MEQ PO TIDM Pramipexole Dihydrochloride (Pramipexole Dihydrochlori), 1 MG PO HS Prednisone Tab (Prednisone), 10 MG PO QAM Spironolactone (Spironolactone), 25 MG PO QAM Scheduled PRN Acetaminophen Tab (Tylenol), 650 MG PO Q8 PRN for Fever Heparin Sodium (Porcine) Lock (Heparin Lock Flush), 5 ML FLUSH PRN PRN for FLUSH Oxycodone HCl (Oxycodone HCl), 5 MG PO Q6 PRN for Pain Allergies Coded Allergies: Celecoxib (Verified Allergy, Intermediate, HIVES, 05/02/17) Penicillins (Verified Allergy, Intermediate, HIVES, 05/02/17) Physical Exam Vital Signs Date Time Temp Pulse Resp B/P (MAP) Pulse Ox O2 Delivery O2 Flow Rate FiO2 05/19/17 15:41 87 18 95/61 96 Room Air 05/19/17 15:14 87 18 95/61 94 Room Air 05/19/17 14:23 88 18 102/66 92 05/19/17 13:10 90 05/19/17 12:30 88 22 126/65 96 Room Air 05/19/17 12:29 38.6 88 22 126/65 96 Room Air 05/19/17 12:29 96 Room Air 05/19/17 11:19 91 05/19/17 10:57 37.2 88 18 127/79 97 Room Air Physical Exam Vital signs reviewed. General: Chronically ill-appearing, jaundiced, hallucinating, in no significant distress. HEENT: No scleral icterus, PERRLA, pale conjunctiva, severely dry mucous membranes, neck supple. Atraumatic. Cardiovascular: Regular rate and rhythm, no extra sounds. Pulmonary: Clear to auscultation bilaterally, normal work of breathing. Abdomen: Soft, nontender, nondistended, positive bowel sounds. Musculoskeletal: Atraumatic, no peripheral edema. Neurologic: Patient is able to answer questions regarding orientation. Has random upper extremity movements (holding hands up over the head). Full strength in all 4 extremities. Cranial nerves 2 through 12 grossly intact. Skin: Warm, dry, no rash Medical Decision & Procedures ER Provider Diagnostic Interpretation: X-ray results as stated below per interpretation by me and the radiologist: CHEST ONE VIEW PORTABLE CLINICAL HISTORY: fever COMPARISON STUDY: 03/28/2017 FINDINGS: Potential small parenchymal infiltrate medial left base versus chronic parenchymal scarring. Lungs otherwise appear clear. Diaphragms smooth. IMPRESSION: Small parenchymal infiltrate medial left base versus components of chronic parenchymal scarring Electronically signed by: Naga Vázquez M.D. 05/19/2017 1:23 PM Dictated Date/Time: 05/19/2017 12:[address], US, and Fluoroscopy results as stated below per my review and radiologist interpretation: ABDOMINAL ULTRASOUND TO ASSESS FOR ASCITES CLINICAL HISTORY: Ascites. COMPARISON STUDY: Ultrasound guided paracentesis March 31, 2017. FINDINGS: The patient presented for possible paracentesis. However, no fluid was identified within the 4 quadrants. Therefore, no paracentesis could be performed. IMPRESSION: No ascites. Electronically signed by: Shayne Buchanan M.D. 05/19/2017 4:54 PM Dictated Date/Time: 05/19/2017 4:53 PM FLUOROSCOPICALLY GUIDED LUMBAR PUNCTURE CLINICAL HISTORY: AMS, fever, h/o spine osteo recently PROCEDURE: The procedure, risks and benefits were discussed with the patient and his given altered mental status. The discussed risks included spinal headache, bleeding and infection. The patient agreed to the procedure and informed written consent was obtained. The procedure was performed by Dr. Buchanan following a timeout. The right L4-L5 interlaminar space was targeted. Skin overlying the space was prepped and draped in sterile fashion and local anesthesia was achieved with 1% lidocaine. Under intermittent fluoroscopic guidance, a 5 inch, 22-gauge spinal needle was directed into the thecal sac. This procedure was difficult given motion during this exam. There was return of serosanguineous fluid. 7 cc of serosanguineous fluid was collected in 4 vials and sent to laboratory as ordered. The fluid did not clear during the procedure. The needle was removed. No immediate complications were evident. IMPRESSION: Fluoroscopically guided lumbar puncture. Technically difficult procedure due to significant patient motion during the procedure. 7 cc of serosanguineous fluid was collected. When correlating with MRI of May 02, 2017, this fluid could represent cerebrospinal fluid or fluid from the laminectomy bed collection. Discussed with Dr. Diehl at time of dictation. Electronically signed by: Shayne Buchanan M.D. 05/19/2017 3:02 PM Dictated Date/Time: 05/19/2017 2:[address] NON[address]AST CT DOSE: 537.48 mGy.cm HISTORY: Mental status change AMS TECHNIQUE: Multiaxial CT images of the head were performed without the use of intravenous contrast. Comparison: 05/09/2013 Findings: Moderate mucosal thickening right maxillary sinus. The calvarium and skull base are intact. The ventricles and sulci are within normal limits. There is no mass, hematoma, midline shift, or acute infarct. Impression: No acute intracranial abnormality. Electronically signed by: Naga Vázquez M.D. 05/19/2017 1:25 PM Dictated Date/Time: 05/19/2017 1:23 PM Laboratory Results 05/19/17 11:15 Red Blood Count 3.34, Mean Corpuscular Volume 94.0, Mean Corpuscular Hemoglobin 31.1, Mean Corpuscular Hemoglobin Concent 33.1, Mean Platelet Volume 10.1, Neutrophils (%) (Auto) 79.6, Lymphocytes (%) (Auto) 7.6, Monocytes (%) (Auto) 11.4, Eosinophils (%) (Auto) 0.7, Basophils (%) (Auto) 0.3, Neutrophils # (Auto ) 5.79, Lymphocytes # (Auto) 0.55, Monocytes # (Auto) 0.83, Eosinophils # (Auto ) 0.05, Basophils # (Auto) 0.02 05/19/17 11:15 05/19/17 12:45 Test 05/19/17 11:15 05/19/17 12:30 05/19/17 12:45 05/19/17 13:04 White Blood Count 7.27 K/uL (4.8-10.8) Red Blood Count 3.34 M/uL (4.7-6.1) Hemoglobin 10.4 g/dL (14.0-18.0) Hematocrit 31.4 % (42-52) Mean Corpuscular Volume 94.0 fL (80-100) Mean Corpuscular Hemoglobin 31.1 pg (25-34) Mean Corpuscular Hemoglobin Concent 33.1 g/dl (32-36) Platelet Count 188 K/uL (130-400) Mean Platelet Volume 10.1 fL (7.4-10.4) Neutrophils (%) (Auto) 79.6 % Lymphocytes (%) (Auto) 7.6 % Monocytes (%) (Auto) 11.4 % Eosinophils (%) (Auto) 0.7 % Basophils (%) (Auto) 0.3 % Neutrophils # (Auto) 5.79 K/uL (1.4-6.5) Lymphocytes # (Auto) 0.55 K/uL (1.2-3.4) Monocytes # (Auto) 0.83 K/uL (0.11-0.59) Eosinophils # (Auto) 0.05 K/uL (0-0.5) Basophils # (Auto) 0.02 K/uL (0-0.2) RDW Standard Deviation 53.8 fL (36.4-46.3) RDW Coefficient of Variation 15.7 % (11.5-14.5) Immature Granulocyte % (Auto) 0.4 % Immature Granulocyte # (Auto) 0.03 K/uL (0.00-0.02) Prothrombin Time 14.0 SECONDS (9.0-12.0) Prothromb Time International Ratio 1.3 (0.9-1.1) Activated Partial Thromboplast Time 32.0 SECONDS (21.0-31.0) Partial Thromboplastin Ratio 1.2 Anion Gap 10.0 mmol/L (3-11) Est Creatinine Clear Calc Drug Dose 47.8 ml/min Estimated GFR () 52.0 Estimated GFR (Non- 44.9 BUN/Creatinine Ratio 15.6 (10-20) Calcium Level 9.1 mg/dl (8.5-10.1) Total Bilirubin 2.5 mg/dl (0.2-1) Alanine Aminotransferase (ALT/SGPT) 24 U/L (12-78) Alkaline Phosphatase 194 U/L (45-117) Total Protein 8.0 gm/dl (6.4-8.2) Albumin 2.2 gm/dl (3.4-5.0) Globulin 5.8 gm/dl (2.5-4.0) Albumin/Globulin Ratio 0.4 (0.9-2) Urine Color YELLOW Urine Appearance CLEAR (CLEAR) Urine pH 5.0 (4.5-7.5) Urine Specific [place] 1.017 (1.000-1.030) Urine Protein TRACE (NEG) Urine Glucose (UA) NEG (NEG) Urine Ketones NEG (NEG) Urine Occult Blood 3+ (NEG) Urine Nitrite NEG (NEG) Urine Bilirubin NEG (NEG) Urine Urobilinogen NEG (NEG) Urine Leukocyte Esterase NEG (NEG) Urine WBC (Auto) 1-5 /hpf (0-5) Urine RBC (Auto) 10-30 /hpf (0-4) Urine Hyaline Casts (Auto) 1-5 /lpf (0-5) Urine Epithelial Cells (Auto) 10-20 /lpf (0-5) Urine Bacteria (Auto) NEG (NEG) Magnesium Level 2.1 mg/dl (1.8-2.4) Aspartate Amino Transf (AST/SGOT) 37 U/L (15-37) Ammonia 31.0 umol/L (11-32) Bedside Lactic Acid Venous 2.46 mmol/L (0.90-1.70) Test 05/19/17 14:05 CSF Color RED CSF Appearance BLOODY CSF WBC 97818 /uL (0-5) CSF RBC 225671 /uL (0) CSF Xanthrochromic XANTHOCHROMIC CSF Cell Count Tube # 1 CSF Mononuclear WBCs % 7.6 % CSF Polynuclear WBCs (%) 92.4 % CSF Chemistry Tube # 2 CSF Glucose 93 mg/dl (40-70) CSF Total Protein mg/dl (15.0-45.0) Laboratory results per my review. Medications Administered Medications (Trade) Dose Ordered Sig/Nathalia Route Start Time Stop Time Status Last Admin Dose Admin Sodium Chloride 500 ml @ 999 mls/hr Q31M STAT IV 05/19/17 12:07 05/19/17 12:39 DC 05/19/17 12:07 999 MLS/HR Sodium Chloride 1,000 ml @ 150 mls/hr Q6H40M STAT IV 05/19/17 12:07 05/19/17 17:41 DC 05/19/17 12:07 150 MLS/HR Ceftriaxone Sodium 2000 mg/ Dextrose 70 ml @ 140 mls/hr NOW STAT IV 05/19/17 13:43 05/19/17 14:12 DC 05/19/17 15:54 140 MLS/HR Vancomycin HCl 2000 mg/Sodium Chloride 540 ml @ 200 mls/hr NOW STAT IV 05/19/17 13:44 05/19/17 16:25 DC 05/19/17 14:28 200 MLS/HR Trimethoprim/ Sulfamethoxazole 408 mg/Dextrose 525.5 ml @ 333 mls/hr NOW STAT IV 05/19/17 13:49 05/19/17 15:23 DC 05/19/17 15:33 333 MLS/HR Acetaminophen 650 mg/Empty Bag 65 ml @ 260 mls/hr NOW STAT IV 05/19/17 13:54 05/19/17 14:08 DC 05/19/17 14:24 260 MLS/HR Fentanyl Citrate (Fentanyl Inj) 50 mcg NOW STAT IV 05/19/17 15:22 05/19/17 15:23 DC 05/19/17 15:29 50 MCG Diazepam (Valium Inj) 2.5 mg NOW STAT IV 05/19/17 15:24 05/19/17 15:25 DC 05/19/17 15:24 2.5 MG ECG Indication: altered mental status Rate (beats per minute): 87 Rhythm: sinus rhythm Findings: nonspecific-ST abn, PVC, no ectopy ED Course 1204: Past medical records reviewed. The patient was evaluated in room C04. A complete history and physical examination was performed. 1207: Sodium Chloride 1000 ml @ 150 mls/hr IV, Sodium Chloride 500 ml @ 999 mls/ hr IV 1253: I discussed the patient's case with Dr. Nielsen, parts counter specialist with [facility]. He reported that the patient just finished an 8 week dose of antibiotics for osteomyelitis of spine and klebsiella UTI. He is under the care of infectious disease. 1259: I discussed the patient's case with Dr. Buchanan, radiologist with [facility]. He is going to do paracentesis and a lumbar puncture. 1338: I discussed the patient's case with Dr. Chen, infectious disease specialist with [facility]. 1343: Ceftriaxone Sodium 2000 mg/Dextrose 70 ml @ 140 mls/hr Protocol IV 1344: Vancomycin HCl 2000 mg/Sodium Chloride 540 ml @ 200 mls/hr IV 1349: Trimethoprim/Sulfamethoxazole 408 mg/Dextrose 525.5 ml @ 333 mls/hr IV 1621: Upon reevaluation, the patient is resting comfortably. I discussed laboratory and radiographic results with the patient's family. They verbalized agreement of the treatment plan. I spoke with Dr. Nielsen, parts counter specialist with [facility]. The patient will be evaluated for further management and care. Medical Decision Medication Reconciliation: I attest that I have personally reviewed the patient' s current medication list. Blood Pressure Screening: Patient was found to have normal blood pressure on screening and does not require follow-up. Differential diagnosis: Etiologies such as hepatic encephalopathy, sepsis, UTI, pneumonia, metabolic, electrolyte abnormalities, cardiac sources, intracerebral event, toxicologic, neurologic, as well as others were entertained. This patient was evaluated and appeared to be in significantly ill. IV access was obtained and laboratory work was drawn. 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 EKG reveals nonspecific ST changes. Rectal temp is elevated to 38.6. Blood cultures and lactate were drawn. Patient's laboratory work reveals a normal white blood cell count. Lactic acid is 2.49. Patient was started on IV hydration. Consultation with Dr. Buchanan of radiology was placed. He has agreed to perform lumbar puncture under fluoroscopy as well as a paracentesis. After consultation with infectious disease, Dr. Chen and clinical pharmacist in the ER, Rasta Bernard the patient was given IV ceftriaxone, IV vancomycin, IV Bactrim. The LP was apparently difficult due to the patient's movements and postsurgical changes in the spine. There is a serosanguineous fluid that was obtained per Dr. Buchanan. He is concerned that this may represent CSF versus surgical bed fluid collection. The lumbar puncture reveals many WBCs and RBCs. They do not seem to be clearing by tube 4. I did communicate my findings to Dr. Hu Savage, the patient's PCP. He agrees to evaluate the patient for admission and further management. He is also aware of the difficulty in performing the lumbar puncture. A repeat LP at a different level may be indicated at some point. The patient will be admitted to the hospital for further treatment and patient's family are aware of the plan. Consults Time Called: 1250 Consulting Physician: Dr. Nielsen, parts counter specialist with [facility] Returned Call: [phone] I discussed the patient's case with Dr. Nielsen, parts counter specialist with [facility]. He reported that the patient just finished an 8 week dose of antibiotics for osteomyelitis of spine and klebsiella UTI. He is under the care of infectious disease. Additional Consults: Time Called: 1256 Consulted Physician: Dr. Buchanan, radiologist with [facility] Returned Call: [phone] Additional Comments: I discussed the patient's case with Dr. Buchanan, [facility]. He is going to do paracentesis and a lumbar puncture. Time Called: 1334 Consulted Physician: Dr. Chen, infectious disease specialist with [facility] Returned Call: [phone] Additional Comments: I discussed the patient's case with Dr. Chen, infectious disease specialist with [facility]. Impression Primary Impression: Sepsis Additional Impressions: Meningitis Altered mental status Critical Care I have personally spent greater than 60 minutes of critical care time in the direct management of this patient. This includes bedside care, interpretation of diagnostic studies, and testing, discussion with consultants, patient, and family members, and other required patient management activities. This 60 minutes is in excess of all separately billable procedures. Scribe Attestation The scribe's documentation has been prepared under my direction and personally reviewed by me in its entirety. I confirm that the note above accurately reflects all work, treatment, procedures, and medical decision making performed by me. Departure Information Dispostion Being Evaluated By Hospitalist Referrals Hu Ackerman M.D. (PCP) Patient Instructions My [facility] Problem Qualifiers Primary Impression: Sepsis Sepsis type: sepsis due to unspecified organism Qualified Codes: A41.9 - Sepsis, unspecified organism Additional Impressions: Altered mental status Altered mental status type: delirium Qualified Codes: R41.0 - Disorientation , unspecified
[2017-05-19 12:19] LABS: INR 1.3 (0.9-1.1); PARTIAL THROMBOPLASTIN RATIO 1.2
[2017-05-19 12:28] LABS: ALB/GLOB RATIO 0.4 (0.9-2); ALKALINE PHOSPHATASE 194 U/L (45-117); ALT/SGPT 24 U/L (12-78); BLOOD UREA NITROGEN 25 mg/dl (7-18); BUN/CREATININE RATIO 15.6 (10-20); CALCIUM 9.1 mg/dl (8.5-10.1); CARBON DIOXIDE 23 mmol/L (21-32); CHLORIDE 106 mmol/L (98-107); GLUCOSE 142 mg/dl (70-99); SODIUM 139 mmol/L (136-145)
[2017-05-19 12:50] LABS: URINE APPEARANCE CLEAR (CLEAR); URINE BILIRUBIN NEG (NEG); URINE COLOR YELLOW; URINE NITRITE NEG (NEG); URINE SPECIFIC GRAVITY 1.017 (1.000-1.030); UROBILINOGEN NEG (NEG)
[2017-05-19] MEDS ORDERED: FURO-85 PO (12:54)
[2017-05-19] MEDS ORDERED: POTA20TA16 PO (12:54)
[2017-05-19] MEDS ORDERED: LACT10SO17 PO (12:54)
[2017-05-19] MEDS ORDERED: CYCL5TAB PO (12:54)
[2017-05-19] MEDS ORDERED: RXC/5 PO (12:54)
[2017-05-19] MEDS ORDERED: GABA-113 PO (12:54)
[2017-05-19 12:56] LABS: MANUAL MICROSCOPIC REQUIRED? NO; REVIEW REQ? NO
[2017-05-19] MEDS ORDERED: ACET325T96 PO (12:56)
[2017-05-19] MEDS ORDERED: METO50TA16 PO (13:00)
[2017-05-19 13:18] LABS: POTASSIUM 3.9 mmol/L (3.5-5.1)
[2017-05-19 13:23] LABS: MAGNESIUM 2.1 mg/dl (1.8-2.4)
--- NOTE | 2017-05-19 13:24 | DIAGNOSTIC IMAGING REPORT ---
CHEST ONE VIEW PORTABLE CLINICAL HISTORY: fever COMPARISON STUDY: 03/28/2017 FINDINGS: Potential small parenchymal infiltrate medial left base versus chronic parenchymal scarring. Lungs otherwise appear clear. Diaphragms smooth. IMPRESSION: Small parenchymal infiltrate medial left base versus components of chronic parenchymal scarring Electronically signed by: Naga Vázquez M.D. 05/19/2017 1:23 PM Dictated Date/Time: 05/19/2017 12:39 PM
--- NOTE | 2017-05-19 13:27 | DIAGNOSTIC IMAGING REPORT ---
HEAD CT NONCONTRAST CT DOSE: 537.48 mGy.cm HISTORY: Mental status change AMS TECHNIQUE: Multiaxial CT images of the head were performed without the use of intravenous contrast. Comparison: 05/09/2013 Findings: Moderate mucosal thickening right maxillary sinus. The calvarium and skull base are intact. The ventricles and sulci are within normal limits. There is no mass, hematoma, midline shift, or acute infarct. Impression: No acute intracranial abnormality. Electronically signed by: Naga Vázquez M.D. 05/19/2017 1:25 PM Dictated Date/Time: 05/19/2017 1:23 PM
[2017-05-19] MEDS ORDERED: CEFTRIAXONE SOD INJ 2000 MG in DEXTROSE 5% 50ML IV STA (13:43)
[2017-05-19] MEDS ORDERED: VANCOMYCIN INJ 2,000 MG in SODIUM CHLORIDE 0.9% 500ML 500 ML IV STA (13:44)
[2017-05-19] MEDS ORDERED: TRIMETH IV STA (13:49)
[2017-05-19] MEDS ORDERED: DEXTROSE 5% IV STA (13:49)
[2017-05-19] MEDS ORDERED: SULFA IV STA (13:49)
[2017-05-19] MEDS ORDERED: ACETAMINOPHEN IV 650 MG in EMPTY BAG 0 ML IV STA (13:54)
[2017-05-19 14:31] LABS: CSF CHEMISTRY TUBE # 2
[2017-05-19 14:57] LABS: CSF APPEARANCE BLOODY; CSF COLOR RED
[2017-05-19 14:58] LABS: CSF XANTHOCHROMIC XANTHOCHROMIC
[2017-05-19 15:03] LABS: CSF XANTHOCHROMIC XANTHOCHROMIC
--- NOTE | 2017-05-19 15:03 | DIAGNOSTIC IMAGING REPORT ---
FLUOROSCOPICALLY GUIDED LUMBAR PUNCTURE CLINICAL HISTORY: AMS, fever, h/o spine osteo recently PROCEDURE: The procedure, risks and benefits were discussed with the patient and his given altered mental status. The discussed risks included spinal headache, bleeding and infection. The patient agreed to the procedure and informed written consent was obtained. The procedure was performed by Dr. Buchanan following a timeout. The right L4-L5 interlaminar space was targeted. Skin overlying the space was prepped and draped in sterile fashion and local anesthesia was achieved with 1% lidocaine. Under intermittent fluoroscopic guidance, a 5 inch, 22-gauge spinal needle was directed into the thecal sac. This procedure was difficult given motion during this exam. There was return of serosanguineous fluid. 7 cc of serosanguineous fluid was collected in 4 vials and sent to laboratory as ordered. The fluid did not clear during the procedure. The needle was removed. No immediate complications were evident. IMPRESSION: Fluoroscopically guided lumbar puncture. Technically difficult procedure due to significant patient motion during the procedure. 7 cc of serosanguineous fluid was collected. When correlating with MRI of May 02, 2017, this fluid could represent cerebrospinal fluid or fluid from the laminectomy bed collection. Discussed with Dr. Diehl at time of dictation. Electronically signed by: Shayne Buchanan M.D. 05/19/2017 3:02 PM Dictated Date/Time: 05/19/2017 2:16 PM
[2017-05-19 15:07] LABS: CSF APPEARANCE BLOODY; CSF COLOR RED; CSF MONONUC RELAT 7.6 %
[2017-05-19] MEDS ORDERED: FENTANYL CITRATE INJ 50 MCG/1 ML 2 ML VIAL IV STA (15:22)
[2017-05-19] MEDS ORDERED: DIAZEPAM INJ 5 MG/ML 2 ML CARP IV STA (15:24)
[2017-05-19] MEDS ORDERED: IMIPENEM/CILASTATIN IV 500 MG in DEXTROSE 5% 100ML 100 ML IV STA (15:33)
[2017-05-19 15:34] LABS: CSF MONONUC RELAT 7.9 %
--- NOTE | 2017-05-19 16:24 | Medical Consult ---
Consultation Date of Consultation: May 19, 2017. Attending Physician: History of Present Illness pt seen in Er. called by primary and ER regarding concern for meningitis and altered mental status. Pt did have isolated fever at [facility] last week, blood and urine culture negative reportedly. he was taken off of dapto and ertapenem ( recent back/hardware infection with MRSA and bsi due to uti with klebsiella), abx stopped on 05/17, picc removed and picc tip cultures (pending). Spoke to pcp on , plan to remove picc and follow off of abx (? b lactam fever, ? infected picc) and if fever persisted, send to ER for further workup. He then according to family at bedside in Er had fever yesterday and again today, mental status alerted as well today, acutely. states he is talking but not making sense and is not responsive. appetite has been poor as well this week. currently with fever. Sent to Er for further eval and LP done, >12,000 wbc, glucose elevated, gram stain csf negative. all cultures pending. started on bactrim, vanco and ctx in ER (droplet precautions), for paracenthesis soon as well. CT head negative. Had ortho surgery last admission and OR cultures negative. Pt is moving in bed but does not follow commands. non verbal, awake, I am unable to obtain ros. tolerating abx. lactate elevated. wbc nml. Past Medical/Surgical History Medical Problems: (1) Fall in home Status: Acute (2) Fever Status: Acute (3) Hypoxia Status: Acute (4) Immunocompromised Status: Acute (5) Left leg cellulitis Status: Acute (6) Lumbar disc herniation with radiculopathy Status: Acute (7) Orthostasis Status: Acute (8) Tenosynovitis, de Quervain Status: Acute (9) Vomiting Status: Acute Family History Patient reports no known family medical history. Social History Smoking Status: Unknown if Ever Smoked Drug Use: none Marital Status: Housing Status: lives with family Occupation Status: retired Allergies Coded Allergies: Celecoxib (Verified Allergy, Intermediate, HIVES, 05/02/17) Penicillins (Verified Allergy, Intermediate, HIVES, 05/02/17) Current Inpatient Medications Current Inpatient Medications Medications (Trade) Dose Ordered Sig/Nathalia Route Start Time Stop Time Status Last Admin Dose Admin Sodium Chloride 1,000 ml @ 150 mls/hr Q6H40M STAT IV 05/19/17 12:07 05/19/17 18:46 05/19/17 12:07 150 MLS/HR Vancomycin HCl 2000 mg/Sodium Chloride 540 ml @ 200 mls/hr NOW STAT IV 05/19/17 13:44 05/19/17 16:25 05/19/17 14:28 200 MLS/HR Imipenem/ Cilastatin Sodium 500 mg/Dextrose 110 ml @ 100 mls/hr NOW STAT IV 05/19/17 15:33 05/19/17 16:38 Physical Exam Date Time Temp Pulse Resp B/P (MAP) Pulse Ox O2 Delivery O2 Flow Rate FiO2 05/19/17 15:41 87 18 95/61 96 Room Air 05/19/17 15:14 87 18 95/61 94 Room Air 05/19/17 14:23 88 18 102/66 92 05/19/17 13:10 90 05/19/17 12:30 88 22 126/65 96 Room Air 05/19/17 12:29 38.6 88 22 126/65 96 Room Air 05/19/17 12:29 96 Room Air 05/19/17 11:19 91 05/19/17 10:57 37.2 88 18 127/79 97 Room Air General Appearance: + moderate distress, + pertinent finding (no nuchal rigidity, moving all extremities ) Head: normocephalic, atraumatic ENT: + pertinent finding (dry mm) Neck: + pertinent finding (no rigidity) Respiratory/Chest: lungs clear, + decreased breath sounds Cardiovascular: regular rate, rhythm, no edema Abdomen/GI: soft Back: + pertinent finding (unable to examine) Extremities/Musculoskelatal: no pedal edema Neurologic/Psych: + pertinent finding (letharic/obtunded) Skin: normal color, warm/dry, no rash Laboratory Results Item Value Date Time Gram Stain - Final Resulted 05/19/17 1405 Cerebral Spinal Fluid CSF WBC 10436 /uL *H 05/19/17 1405 Last 24 Hours Test 05/19/17 11:15 05/19/17 12:30 05/19/17 12:45 05/19/17 13:04 White Blood Count 7.27 K/uL Red Blood Count 3.34 M/uL Hemoglobin 10.4 g/dL Hematocrit 31.4 % Mean Corpuscular Volume 94.0 fL Mean Corpuscular Hemoglobin 31.1 pg Mean Corpuscular Hemoglobin Concent 33.1 g/dl Platelet Count 188 K/uL Mean Platelet Volume 10.1 fL Neutrophils (%) (Auto) 79.6 % Lymphocytes (%) (Auto) 7.6 % Monocytes (%) (Auto) 11.4 % Eosinophils (%) (Auto) 0.7 % Basophils (%) (Auto) 0.3 % Neutrophils # (Auto) 5.79 K/uL Lymphocytes # (Auto) 0.55 K/uL Monocytes # (Auto) 0.83 K/uL Eosinophils # (Auto) 0.05 K/uL Basophils # (Auto) 0.02 K/uL RDW Standard Deviation 53.8 fL RDW Coefficient of Variation 15.7 % Immature Granulocyte % (Auto) 0.4 % Immature Granulocyte # (Auto) 0.03 K/uL Prothrombin Time 14.0 SECONDS Prothromb Time International Ratio 1.3 Activated Partial Thromboplast Time 32.0 SECONDS Partial Thromboplastin Ratio 1.2 Sodium Level 139 mmol/L Potassium Level mmol/L 3.9 mmol/L Chloride Level 106 mmol/L Carbon Dioxide Level 23 mmol/L Anion Gap 10.0 mmol/L Blood Urea Nitrogen 25 mg/dl Creatinine 1.60 mg/dl Est Creatinine Clear Calc Drug Dose 47.8 ml/min Estimated GFR () 52.0 Estimated GFR (Non- 44.9 BUN/Creatinine Ratio 15.6 Random Glucose 142 mg/dl Calcium Level 9.1 mg/dl Magnesium Level mg/dl 2.1 mg/dl Total Bilirubin 2.5 mg/dl Aspartate Amino Transf (AST/SGOT) U/L 37 U/L Alanine Aminotransferase (ALT/SGPT) 24 U/L Alkaline Phosphatase 194 U/L Total Protein 8.0 gm/dl Albumin 2.2 gm/dl Globulin 5.8 gm/dl Albumin/Globulin Ratio 0.4 Urine Color YELLOW Urine Appearance CLEAR Urine pH 5.0 Urine Specific [place] 1.017 Urine Protein TRACE Urine Glucose (UA) NEG Urine Ketones NEG Urine Occult Blood 3+ Urine Nitrite NEG Urine Bilirubin NEG Urine Urobilinogen NEG Urine Leukocyte Esterase NEG Urine WBC (Auto) 1-5 /hpf Urine RBC (Auto) 10-30 /hpf Urine Hyaline Casts (Auto) 1-5 /lpf Urine Epithelial Cells (Auto) 10-20 /lpf Urine Bacteria (Auto) NEG Ammonia 31.0 umol/L Bedside Lactic Acid Venous 2.46 mmol/L Test 05/19/17 14:05 CSF Color RED CSF Appearance BLOODY CSF WBC 65825 /uL CSF RBC 305051 /uL CSF Xanthrochromic XANTHOCHROMIC CSF Cell Count Tube # 1 CSF Mononuclear WBCs % 7.6 % CSF Polynuclear WBCs (%) 92.4 % CSF Chemistry Tube # 2 CSF Glucose 93 mg/dl CSF Total Protein mg/dl Assessment & Plan (1) Meningitis Assessment & Plan: will add imipenem, concern for potential csf leak with multiple recent surgeries. will continue with broad spectrum abx, especially with h/o MRSA infection. droplet precautions. follow cultures. suggest orhto eval as well. supportive care. discussed case with ER and pcp.
[2017-05-19] MEDS ORDERED: ACETAMINOPHEN 325 MG TAB PO PRN (16:30)
[2017-05-19] MEDS ORDERED: HYDROCORTISONE IV 100 MG in SYRINGE 0 ML IV STA (16:48)
--- NOTE | 2017-05-19 16:55 | DIAGNOSTIC IMAGING REPORT ---
ABDOMINAL ULTRASOUND TO ASSESS FOR ASCITES CLINICAL HISTORY: Ascites. COMPARISON STUDY: Ultrasound guided paracentesis March 31, 2017. FINDINGS: The patient presented for possible paracentesis. However, no fluid was identified within the 4 quadrants. Therefore, no paracentesis could be performed. IMPRESSION: No ascites. Electronically signed by: Shayne Buchanan M.D. 05/19/2017 4:54 PM Dictated Date/Time: 05/19/2017 4:53 PM
[2017-05-19] MEDS ORDERED: GLUCAGON FOR INJ 1 MG VIAL SQ PRN (17:30)
[2017-05-19] MEDS ORDERED: DEXTROSE 50% 50 ML SYR IV PRN (17:30)
[2017-05-19] MEDS ORDERED: GLUCOSE 10 TABS/TUBE PO PRN (17:30)
[2017-05-19] MEDS ORDERED: GLUCOSE 40% GEL 15 GM TUBE PO PRN (17:30)
--- NOTE | 2017-05-19 17:36 | Medical Consult ---
Consultation Date of Consultation: May 19, 2017. Attending Physician: Reason for Consultation: confusion, Recent lumbar infection History of Present Illness 62 yo male with sarcoidosis and cirrhosis who underwent lumbar fusion complicated by postop infection(MRSA) who underwent 2 subsequent debridements, the last 2 weeks ago with hardware removal and antibiotic bead placement, tlif cage remains in disc space. He was d/c's to SNF with family reporting decline in ambulation and strength over past week. He has had intermittent fevers, iv abx stopped 05/17. Family reports he has been increasingly confused and that he has had increased LBP since HW removal, he has also been incontinent since his last surgery. He is currently confused and nonverbal but follow commands in a limited fashion. He has been seen by ID and placed on broad spectrum iv abx. LP is done. WBC currently wnl. Past Medical/Surgical History Medical Problems: (1) Altered mental status Status: Acute (2) Fall in home Status: Acute (3) Fever Status: Acute (4) Hypoxia Status: Acute (5) Immunocompromised Status: Acute (6) Left leg cellulitis Status: Acute (7) Lumbar disc herniation with radiculopathy Status: Acute (8) Orthostasis Status: Acute (9) Sepsis Status: Acute (10) Tenosynovitis, de Quervain Status: Acute (11) Vomiting Status: Acute Family History Patient reports no known family medical history. Social History Smoking Status: Unknown if Ever Smoked Drug Use: none Marital Status: Housing Status: lives with family Occupation Status: retired Allergies Coded Allergies: Celecoxib (Verified Allergy, Intermediate, HIVES, 05/02/17) Penicillins (Verified Allergy, Intermediate, HIVES, 05/02/17) Current Inpatient Medications Current Inpatient Medications Medications (Trade) Dose Ordered Sig/Nathalia Route Start Time Stop Time Status Last Admin Dose Admin Sodium Chloride 1,000 ml @ 150 mls/hr Q6H40M STAT IV 05/19/17 12:07 05/19/17 18:46 05/19/17 12:07 150 MLS/HR Imipenem/ Cilastatin Sodium 500 mg/Dextrose 110 ml @ 100 mls/hr Q6H IV 05/19/17 16:30 05/29/17 16:29 UNV Sodium Chloride 1,000 ml @ 100 mls/hr Q10H IV 05/19/17 16:23 06/18/17 16:22 UNV Acetaminophen (Tylenol Tab) 650 mg Q4H PRN PO 05/19/17 16:30 06/18/17 16:29 Pantoprazole Sodium (Protonix Tab) 40 mg DAILY PO 05/20/17 09:00 06/19/17 08:59 UNV Hydrocortisone Sodium Succinate 50 mg/Syringe 1 ml @ 4 mls/min Q6H IV 05/19/17 16:30 06/18/17 16:29 UNV Insulin Aspart (novoLOG ASPART) SLIDING SCALE G... ACHS SC 05/19/17 21:00 06/18/17 20:59 UNV Gabapentin (Neurontin Cap) 300 mg Q8 PO 05/19/17 22:00 06/18/17 21:59 UNV Lactulose (Chronulac Syrup) 20 gm TID PO 05/19/17 21:00 06/18/17 20:59 UNV Metoprolol Tartrate (Lopressor Tab) 50 mg BID PO 05/19/17 21:00 06/18/17 20:59 UNV Review of Systems not obtainable Physical Exam Date Time Temp Pulse Resp B/P (MAP) Pulse Ox O2 Delivery O2 Flow Rate FiO2 05/19/17 16:49 89 18 110/61 97 Room Air 05/19/17 15:41 87 18 95/61 96 Room Air 05/19/17 15:14 87 18 95/61 94 Room Air 05/19/17 14:23 88 18 102/66 92 05/19/17 13:10 90 05/19/17 12:30 88 22 126/65 96 Room Air 05/19/17 12:29 38.6 88 22 126/65 96 Room Air 05/19/17 12:29 96 Room Air 05/19/17 11:19 91 05/19/17 10:57 37.2 88 18 127/79 97 Room Air General Appearance: + moderate distress Head: normocephalic, atraumatic Back: normal inspection, + pertinent finding (incision healed with no redness, drainage swelling, or fluctuance) Extremities/Musculoskelatal: normal inspection Neurologic/Psych: no motor/sensory deficits (he is grossly moving both LE's, appeared to have intact sensation to light touch in bilateral LE's but evaluation limited), normal reflexes (difficult to assess due to patient inability to follow instructions) Laboratory Results Last 24 Hours Test 05/19/17 11:15 05/19/17 12:30 05/19/17 12:45 05/19/17 13:04 White Blood Count 7.27 K/uL Red Blood Count 3.34 M/uL Hemoglobin 10.4 g/dL Hematocrit 31.4 % Mean Corpuscular Volume 94.0 fL Mean Corpuscular Hemoglobin 31.1 pg Mean Corpuscular Hemoglobin Concent 33.1 g/dl Platelet Count 188 K/uL Mean Platelet Volume 10.1 fL Neutrophils (%) (Auto) 79.6 % Lymphocytes (%) (Auto) 7.6 % Monocytes (%) (Auto) 11.4 % Eosinophils (%) (Auto) 0.7 % Basophils (%) (Auto) 0.3 % Neutrophils # (Auto) 5.79 K/uL Lymphocytes # (Auto) 0.55 K/uL Monocytes # (Auto) 0.83 K/uL Eosinophils # (Auto) 0.05 K/uL Basophils # (Auto) 0.02 K/uL RDW Standard Deviation 53.8 fL RDW Coefficient of Variation 15.7 % Immature Granulocyte % (Auto) 0.4 % Immature Granulocyte # (Auto) 0.03 K/uL Prothrombin Time 14.0 SECONDS Prothromb Time International Ratio 1.3 Activated Partial Thromboplast Time 32.0 SECONDS Partial Thromboplastin Ratio 1.2 Sodium Level 139 mmol/L Potassium Level mmol/L 3.9 mmol/L Chloride Level 106 mmol/L Carbon Dioxide Level 23 mmol/L Anion Gap 10.0 mmol/L Blood Urea Nitrogen 25 mg/dl Creatinine 1.60 mg/dl Est Creatinine Clear Calc Drug Dose 47.8 ml/min Estimated GFR () 52.0 Estimated GFR (Non- 44.9 BUN/Creatinine Ratio 15.6 Random Glucose 142 mg/dl Calcium Level 9.1 mg/dl Magnesium Level mg/dl 2.1 mg/dl Total Bilirubin 2.5 mg/dl Aspartate Amino Transf (AST/SGOT) U/L 37 U/L Alanine Aminotransferase (ALT/SGPT) 24 U/L Alkaline Phosphatase 194 U/L Total Protein 8.0 gm/dl Albumin 2.2 gm/dl Globulin 5.8 gm/dl Albumin/Globulin Ratio 0.4 Urine Color YELLOW Urine Appearance CLEAR Urine pH 5.0 Urine Specific [place] 1.017 Urine Protein TRACE Urine Glucose (UA) NEG Urine Ketones NEG Urine Occult Blood 3+ Urine Nitrite NEG Urine Bilirubin NEG Urine Urobilinogen NEG Urine Leukocyte Esterase NEG Urine WBC (Auto) 1-5 /hpf Urine RBC (Auto) 10-30 /hpf Urine Hyaline Casts (Auto) 1-5 /lpf Urine Epithelial Cells (Auto) 10-20 /lpf Urine Bacteria (Auto) NEG Ammonia 31.0 umol/L Bedside Lactic Acid Venous 2.46 mmol/L Test 05/19/17 14:05 CSF Color RED CSF Appearance BLOODY CSF WBC 70294 /uL CSF RBC 110554 /uL CSF Xanthrochromic XANTHOCHROMIC CSF Cell Count Tube # 1 CSF Mononuclear WBCs % 7.6 % CSF Polynuclear WBCs (%) 92.4 % CSF Chemistry Tube # 2 CSF Glucose 93 mg/dl CSF Total Protein mg/dl Assessment & Plan Possible ongoing lumbar infection with possible colonized interbody device, L4- 5 instability. No gross motor deficits. Agree with ID recs, Doubt CSF leak. Repeat lumbar MRI with and without nicky when able to be sedated or compliant. will order lumbar xray to assess stability.
[2017-05-19] MEDS: SODIUM CHLORIDE 0.9% 1000ML 1,000 ML IV SCH (18:30)
[2017-05-19] MEDS ORDERED: VANCOMYCIN CONSULT ACTIVE PRN (18:45)
[2017-05-19] MEDS ORDERED: HALOPERIDOL LACTATE 5 MG/ML 1 ML VIAL IV STA (18:46)
--- NOTE | 2017-05-19 18:53 | Pharmacy Progress Note ---
Pharmacy Abx Initial Consult Date of Service May 19, 2017. Pharmacy Dosing Scope Date of Consult: 05/19/17 Consultation requested by: Dr. Pagan Pharmacy is consulted to initiate vancomycin IV dosing therapy, order appropriate labs and adjust drug dose/frequency. Subjective The patient is a 62 year old male admitted on May 19, 2017 at 16:42. Objective Height (Feet): 5 Height (Inches): 7.00 Weight (Kilograms): 79.100 Vital Signs (Past 12Hrs) Vital Signs Past 12 Hours Date Time Temp Pulse Resp B/P (MAP) Pulse Ox O2 Delivery O2 Flow Rate FiO2 05/19/17 17:56 36.8 87 18 109/65 96 Room Air 05/19/17 17:24 89 20 110/67 95 Room Air 05/19/17 16:49 89 18 110/61 97 Room Air 05/19/17 15:41 87 18 95/61 96 Room Air 05/19/17 15:14 87 18 95/61 94 Room Air 05/19/17 14:23 88 18 102/66 92 05/19/17 13:10 90 05/19/17 12:30 88 22 126/65 96 Room Air 05/19/17 12:29 38.6 88 22 126/65 96 Room Air 05/19/17 12:29 96 Room Air 05/19/17 11:19 91 05/19/17 10:57 37.2 88 18 127/79 97 Room Air Lab Results (24Hrs) Laboratory Tests (24 Hours) Test 05/19/17 11:15 White Blood Count 7.27 K/uL (4.8-10.8) Red Blood Count 3.34 M/uL (4.7-6.1) L Hemoglobin 10.4 g/dL (14.0-18.0) L Hematocrit 31.4 % (42-52) L Mean Corpuscular Volume 94.0 fL (80-100) Mean Corpuscular Hemoglobin 31.1 pg (25-34) Mean Corpuscular Hemoglobin Concent 33.1 g/dl (32-36) Platelet Count 188 K/uL (130-400) Mean Platelet Volume 10.1 fL (7.4-10.4) Neutrophils (%) (Auto) 79.6 % Lymphocytes (%) (Auto) 7.6 % Monocytes (%) (Auto) 11.4 % Eosinophils (%) (Auto) 0.7 % Basophils (%) (Auto) 0.3 % Neutrophils # (Auto) 5.79 K/uL (1.4-6.5) Lymphocytes # (Auto) 0.55 K/uL (1.2-3.4) L Monocytes # (Auto) 0.83 K/uL (0.11-0.59) H Eosinophils # (Auto) 0.05 K/uL (0-0.5) Basophils # (Auto) 0.02 K/uL (0-0.2) Item Value Date Time Bedside Lactic Acid Venous 2.46 mmol/L H 05/19/17 1304 Creatinine 1.60 mg/dl H 05/19/17 1115 Est Creatinine Clear Calc Drug Dose 47.8 ml/min 05/19/17 1115 Micro Results Date/Time Source Procedure Growth Status 05/19/17 12:45 Blood Blood Culture Pending Received 05/19/17 11:15 Blood Blood Culture Pending Received 05/19/17 14:05 Cerebral Spinal Fluid Gram Stain - Final Resulted 05/19/17 14:05 Cerebral Spinal Fluid CSF Culture Pending Resulted 05/19/17 00:00 Nasal MRSA DNA Surveillance Screen Pending Received 05/19/17 12:30 Urine,Catheterized Urine Culture Pending Received Item Value Date Time CSF Total Protein mg/dl 05/19/17 1405 CSF Glucose 93 mg/dl H 05/19/17 1405 CSF Chemistry Tube # 2 05/19/17 1405 CSF Polynuclear WBCs (%) 92.1 % 05/19/17 1405 CSF Mononuclear WBCs % 7.9 % 05/19/17 1405 CSF Cell Count Tube # 4 05/19/17 1405 CSF RBC 969194 /uL 05/19/17 1405 CSF WBC 01261 /uL *H 05/19/17 1405 CSF Xanthrochromic XANTHOCHROMIC 05/19/17 1405 CSF Color RED 05/19/17 1405 CSF Appearance BLOODY 05/19/17 1405 Risk Factors for Resistance * Resident in a long term or extended-care facility * Hospitalization for 48 hours or more within the past 90 days * Immunocompromised (chronic steroid therapy - Prednisone 10mg PO daily) * 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 pneumoniae * Possible meningitis, CSF leak * vancomycin, ceftriaxone and sulfamethoxazole/trimethoprim given in ED * Currently in [facility] * SCr 1.6mg/dL (baseline ~1.1mg/dL) Plan Vancomycin and Imipenem-cilastatin for treatment of meningitis Vancomycin IV * Loading dose: 2000 mg (25 mg/kg) x1 in ED * Maintenance dose: 1250 mg IV (16 mg/kg) every 14 hours * Goal trough level for meningitis : 15 to 20 mcg/mL * Trough level ordered for 05/21/17 prior to the 12:00 dose * Vancomycin has been empirically dosed based on baseline renal function - if SCr does not improve, frequency will need adjusted. Imipenem-cilastatin IV (not a pharmacy consult) * Loading dose: 500mg IV x1 in ED * Maintenance dose: 500mg IV every 6 hours * will need dose adjusted if CrCL does not rise above 50mL/min * Low levels reached in CSF - may consider addition/change in gram-negative coverage if patient does not improve (Cefepime or ceftriaxone) Pharmacy will continue to follow and will adjust dose/frequency as necessary. Thank you.
[2017-05-19] MEDS ORDERED: CEFTRIAXONE SOD INJ 1 GM in DEXTROSE 5% ADD-VANTAGE 50ML 50 ML IV SCH (20:15)
[2017-05-19] MEDS ORDERED: TRIMETH IV SCH (20:15)
[2017-05-19] MEDS ORDERED: SULFA IV SCH (20:15)
[2017-05-19] MEDS ORDERED: DILUENT IV SCH (20:15)
[2017-05-19] MEDS ORDERED: ALBUMIN HUMAN 25% 12.5 GM/50 ML VIAL IV ONE (20:30)
[2017-05-19] MEDS ORDERED: METOPROLOL TARTRATE 50 MG TAB PO SCH (21:00)
[2017-05-19] MEDS: LACTULOSE SYRUP 20 GM/30 ML UDC PO SCH (21:00)
[2017-05-19] MEDS: INSULIN ASPART 100 UNITS/ML 3 ML PEN SC SCH (21:00)
--- NOTE | 2017-05-19 21:12 | Critical Care Consultation ---
Critical Care Consultation Date of Consultation: May 19, 2017. Attending Physician: Hu Ackerman M.D. Reason for Consultation: Fever, altered mental status History of Present Illness This is a 62-year-old gentleman with a very complex past medical history. He has a history of steroid-dependent sarcoidosis, diabetes as well as other medical problems which will be outlined below. He is admitted to the intensive care unit from the emergency department where he presented with fever and altered mental status today. His most recent course of hospitalizations and events include admission to [facility] between March 14 and March 18 for an L4L5 decompression and fusion. He returned to the hospital between March 24 April 09 at which time he had blood cultures which were positive for staph aureus and he required an operation to drain a pocket of fluid near around the surgical site which also grew staph aureus. He was on vancomycin and changed to daptomycin for a 6-8 week course of IV antibiotics. He was discharged to [facility]. He returned to [facility] on May 02 through May 11. He had complaints of back pain and numbness in the legs. His hardware was removed during that admission and he grew Klebsiella from his urine. At some point along the line he was also diagnosed with cirrhosis and had several paracentesis. He was discharged to [facility] on May 11 to complete his IV antibiotics which I believe were daptomycin. Antibiotics were stopped on May 17. He is now been out of the hospital for about a week and his tells me he was running fevers for around the past 5 days between 100 F and 101F. His PICC line was removed on May 17 and thus far, according to his attending physician, the blood cultures and culture of the tip of the PICC line remain negative. His reports that his mental status has been declining for the past week and that he has made several attempts to get out of bed. His appetite has been poor and he has been confused. She denies cough, abdominal pain, shortness of breath, lower extremity swelling, chills. He regularly has diarrhea when he is on antibiotics. He was seen in the emergency department today and was given a normal saline bolus of 500 mL and 150 mL per hour. He underwent fluoroscopic lumbar puncture which may have been a drainage of a fluid collection as the white blood cells were 12,507. He had a CT scan of his brain which showed no acute process, chest x-ray showed no acute process but he does have some basilar scarring, abdominal ultrasound did not reveal any ascites to sample. He received ceftriaxone and vancomycin and Bactrim. He was seen by Dr. Chen who added imipenem to his regimen. Blood cultures were drawn along with sending urine culture and CSF culture. He has also been seen by the orthopedic service and the neurology service has been consulted. He is unable to give me any history whatsoever. Although he will awaken and try to speak he mumbles unintelligibly. Past Medical/Surgical History Steroid-dependent sarcoidosis, cared for by a physician at [facility] Diabetes mellitus type 2 History of ASD status post pair in 2014 Hypertension Obstructive sleep apnea with use of CPAP Cirrhosis Lumbar epidural abscess Chronic thrombocytopenia Splenomegaly Tonsillectomy Left inguinal hernia repair L4-L5 decompression and fusion February 2017 Incision and drainage at the L4-L5 decompression site Removal of lumbar hardware Family History Patient reports no known family medical history. Social History He is cared for by his . They recently sold their home and she is living out of [facility]. He has never smoked and used to drink about 3 glasses of wine and several cocktails per day until approximately 2 weeks ago when he was told he had cirrhosis. He likes to make wine. Drug Use: none Marital Status: Housing Status: lives with family Occupation Status: retired Allergies Coded Allergies: Celecoxib (Verified Allergy, Intermediate, HIVES, 05/02/17) Penicillins (Verified Allergy, Intermediate, HIVES, 05/02/17) Home Medications Scheduled Cyclobenzaprine Hcl (Flexeril), 5 MG PO Q8 Cyclosporine (Ophth) (Restasis), 1 DROP OPB BID Daptomycin (Daptomycin), 600 MG IV Q24H Esomeprazole Magnesium (Nexium), 40 MG PO BID Fluoxetine (Prozac), 40 MG PO HS Furosemide (Lasix), 60 MG PO DAILY Gabapentin (Neurontin), 300 MG PO Q8 Insulin Aspart (Novolog Penfill), SC AC Lactulose (Chronulac), 30 ML PO TID Levalbuterol (Levalbuterol HCl), 1.25 MG INH Q6R Metoprolol Tartrate (Lopressor) (Lopressor), 50 MG PO AMPM Mometasone Furoate (Nasal) (Mometasone Furoate), 2 SPRAYS JORGE DAILY Pentoxifylline (Trental), 400 MG PO TID Potassium Ext Rel (Klor-Con), 20 MEQ PO TIDM Pramipexole Dihydrochloride (Pramipexole Dihydrochlori), 1 MG PO HS Prednisone Tab (Prednisone), 10 MG PO QAM Spironolactone (Spironolactone), 25 MG PO QAM Scheduled PRN Acetaminophen Tab (Tylenol), 650 MG PO Q8 PRN for Fever Heparin Sodium (Porcine) Lock (Heparin Lock Flush), 5 ML FLUSH PRN PRN for FLUSH Oxycodone HCl (Oxycodone HCl), 5 MG PO Q6 PRN for Pain Current Inpatient Medications Current Inpatient Medications Medications (Trade) Dose Ordered Sig/Nathalia Route Start Time Stop Time Status Last Admin Dose Admin Imipenem/ Cilastatin Sodium 500 mg/Dextrose 110 ml @ 100 mls/hr Q6H IV 05/20/17 01:00 05/30/17 00:59 Sodium Chloride 1,000 ml @ 100 mls/hr Q10H IV 05/19/17 16:23 06/18/17 16:22 05/19/17 18:30 100 MLS/HR Acetaminophen (Tylenol Tab) 650 mg Q4H PRN PO 05/19/17 16:30 06/18/17 16:29 Hydrocortisone Sodium Succinate 50 mg/Syringe 1 ml @ 4 mls/min Q6H IV 05/19/17 23:00 06/18/17 22:59 Insulin Aspart (novoLOG ASPART) SLIDING SCALE G... ACHS SC 05/19/17 21:00 06/18/17 20:59 Lactulose (Chronulac Syrup) 20 gm TID PO 05/19/17 21:00 06/18/17 20:59 Glucose (Glucose 40% Gel) 15-30 GRAMS 15 GRAMS... UD PRN PO 05/19/17 17:30 06/18/17 17:29 Glucose (Glucose Chew Tab) 4-8 Tablets 4 Tabl... UD PRN PO 05/19/17 17:30 06/18/17 17:29 Dextrose (Dextrose 50% 50ML Syringe) 25-50ML OF 50% DW IV FOR... UD PRN IV 05/19/17 17:30 06/18/17 17:29 Glucagon (Glucagon Inj) 1 mg UD PRN SQ 05/19/17 17:30 06/18/17 17:29 Vancomycin HCl (Consult) 1 ea UD PRN N/A 05/19/17 18:45 06/18/17 18:44 Vancomycin HCl 1250 mg/Sodium Chloride 275 ml @ 125 mls/hr Q14H IV 05/20/17 08:00 05/30/17 07:59 Pantoprazole Sodium 40 mg/ Syringe 10 ml @ 5 mls/min DAILY@11 IV 05/20/17 11:00 06/19/17 10:59 UNV Metoprolol Tartrate (Lopressor Iv) 5 mg Q6 IV. 05/20/17 00:00 06/19/17 00:00 UNV Trimethoprim/ Sulfamethoxazole 408 mg/Diluent 25.5 ml @ 0 mls/hr Q12H IV 05/19/17 20:15 05/29/17 20:14 UNV Ceftriaxone Sodium 1 gm/ Dextrose 50 ml @ 100 mls/hr Q24H IV 05/19/17 20:15 05/29/17 20:14 UNV Albumin Human (Albumin 25%) 25 gm ONE ONCE IV 05/19/17 20:30 05/19/17 20:31 Review of Systems A 12 point review of systems was obtained. He has not complained of headache or visual changes but seems to be having some visual hallucinations. He has had numbness and weakness of the lower extremities. He has diarrhea when he is on antibiotics. Additional review of systems are negative or noncontributory 12 point system. Please also refer to the history of present illness. Physical Exam Date Time Temp Pulse Resp B/P (MAP) Pulse Ox O2 Delivery O2 Flow Rate FiO2 05/19/17 17:56 36.8 87 18 109/65 96 Room Air 05/19/17 17:24 89 20 110/67 95 Room Air 05/19/17 16:49 89 18 110/61 97 Room Air 05/19/17 15:41 87 18 95/61 96 Room Air 05/19/17 15:14 87 18 95/61 94 Room Air 05/19/17 14:23 88 18 102/66 92 05/19/17 13:10 90 05/19/17 12:30 88 22 126/65 96 Room Air 05/19/17 12:29 38.6 88 22 126/65 96 Room Air 05/19/17 12:29 96 Room Air 05/19/17 11:19 91 05/19/17 10:57 37.2 88 18 127/79 97 Room Air In general this is a chronically ill-appearing gentleman lying in bed reaching to try to pick things out of the air HEENT pupils are equally round and reactive to light he has some proptosis. The oral mucosa is very dry. Posterior pharynx is clear. Neck no rigidity, no bruits, trachea midline. Lungs: Decreased breath sounds throughout no rales rhonchi or wheezes. Heart: regular rate and rhythm Abdomen: round, soft, nontender, mildly distended, active bowel sounds. Extremities: Thin and without edema. Scattered ecchymosis. Skin: Thin and friable. Dry. Neuro: He moves all 4 extremities spontaneously but not to command. I don't see a facial droop and tongue is midline. He does not follow instructions. Difficult to assess his strength. Sensation seems grossly intact. Laboratory Results Last 24 Hours Test 05/19/17 11:15 05/19/17 12:30 05/19/17 12:45 05/19/17 13:04 White Blood Count 7.27 K/uL Red Blood Count 3.34 M/uL Hemoglobin 10.4 g/dL Hematocrit 31.4 % Mean Corpuscular Volume 94.0 fL Mean Corpuscular Hemoglobin 31.1 pg Mean Corpuscular Hemoglobin Concent 33.1 g/dl Platelet Count 188 K/uL Mean Platelet Volume 10.1 fL Neutrophils (%) (Auto) 79.6 % Lymphocytes (%) (Auto) 7.6 % Monocytes (%) (Auto) 11.4 % Eosinophils (%) (Auto) 0.7 % Basophils (%) (Auto) 0.3 % Neutrophils # (Auto) 5.79 K/uL Lymphocytes # (Auto) 0.55 K/uL Monocytes # (Auto) 0.83 K/uL Eosinophils # (Auto) 0.05 K/uL Basophils # (Auto) 0.02 K/uL RDW Standard Deviation 53.8 fL RDW Coefficient of Variation 15.7 % Immature Granulocyte % (Auto) 0.4 % Immature Granulocyte # (Auto) 0.03 K/uL Prothrombin Time 14.0 SECONDS Prothromb Time International Ratio 1.3 Activated Partial Thromboplast Time 32.0 SECONDS Partial Thromboplastin Ratio 1.2 Sodium Level 139 mmol/L Potassium Level mmol/L 3.9 mmol/L Chloride Level 106 mmol/L Carbon Dioxide Level 23 mmol/L Anion Gap 10.0 mmol/L Blood Urea Nitrogen 25 mg/dl Creatinine 1.60 mg/dl Est Creatinine Clear Calc Drug Dose 47.8 ml/min Estimated GFR () 52.0 Estimated GFR (Non- 44.9 BUN/Creatinine Ratio 15.6 Random Glucose 142 mg/dl Calcium Level 9.1 mg/dl Magnesium Level mg/dl 2.1 mg/dl Total Bilirubin 2.5 mg/dl Aspartate Amino Transf (AST/SGOT) U/L 37 U/L Alanine Aminotransferase (ALT/SGPT) 24 U/L Alkaline Phosphatase 194 U/L Total Protein 8.0 gm/dl Albumin 2.2 gm/dl Globulin 5.8 gm/dl Albumin/Globulin Ratio 0.4 Urine Color YELLOW Urine Appearance CLEAR Urine pH 5.0 Urine Specific [place] 1.017 Urine Protein TRACE Urine Glucose (UA) NEG Urine Ketones NEG Urine Occult Blood 3+ Urine Nitrite NEG Urine Bilirubin NEG Urine Urobilinogen NEG Urine Leukocyte Esterase NEG Urine WBC (Auto) 1-5 /hpf Urine RBC (Auto) 10-30 /hpf Urine Hyaline Casts (Auto) 1-5 /lpf Urine Epithelial Cells (Auto) 10-20 /lpf Urine Bacteria (Auto) NEG Ammonia 31.0 umol/L Bedside Lactic Acid Venous 2.46 mmol/L Test 05/19/17 14:05 05/19/17 20:00 05/19/17 20:01 CSF Color RED CSF Appearance BLOODY CSF WBC 89347 /uL CSF RBC 185652 /uL CSF Xanthrochromic XANTHOCHROMIC CSF Cell Count Tube # 1 CSF Mononuclear WBCs % 7.6 % CSF Polynuclear WBCs (%) 92.4 % CSF Chemistry Tube # 2 CSF Glucose 93 mg/dl CSF Total Protein mg/dl Diagnostic Results ABDOMINAL ULTRASOUND TO ASSESS FOR ASCITES CLINICAL HISTORY: Ascites. COMPARISON STUDY: Ultrasound guided paracentesis March 31, 2017. FINDINGS: The patient presented for possible paracentesis. However, no fluid was identified within the 4 quadrants. Therefore, no paracentesis could be performed. IMPRESSION: No ascites. HEAD CT NONCONTRAST CT DOSE: 537.48 mGy.cm HISTORY: Mental status change AMS TECHNIQUE: Multiaxial CT images of the head were performed without the use of intravenous contrast. Comparison: 05/09/2013 Findings: Moderate mucosal thickening right maxillary sinus. The calvarium and skull base are intact. The ventricles and sulci are within normal limits. There is no mass, hematoma, midline shift, or acute infarct. Impression: No acute intracranial abnormality. Electronically signed by: Naga Vázquez M.D. 05/19/2017 1:25 PM EKG shows normal sinus rhythm with occasional PVCs. Nonspecific ST-T wave changes. QTc 476 ms Assessment & Plan 1. Fever with recent removal of his lumbar hardware after infection with staph aureus. With the white blood cell count being as high as it is in the CSF, he is being treated very broadly for possible meningitis. Cultures are pending and the infectious disease service has been consulted. Unfortunately I'm unable to see previous culture results at this time. Cultures were also drawn at [facility] earlier this week. 2. Encephalopathy, likely metabolic in secondary to infection and sepsis. 3. Acute kidney injury. I think he is intravascularly depleted and may be experiencing ATN associated with sepsis as well. 4. Status post L4-L5 decompression and fusion, incision and drainage, removal of hardware and completion of his course of antibiotics on May 17. 5. History of steroid-dependent sarcoidosis, on stress dose steroids with hydrocortisone. 6. Diabetes mellitus type 2 7. History of cirrhosis with ascites. Ammonia level is 31 and satisfactory this far. It may be difficult to give him his by mouth medications, i.e. lactulose unless his mental status improves. 8. History of thrombocytopenia, presently his platelets are satisfactory 9. History of hypertension 10. History of ASD repair Plan: Neuro: I have ordered low-dose Haldol for his restlessness. Discontinue gabapentin as he is not safe to take oral medications presently. If he has pain , use low-dose Dilaudid. Infectious disease: Continue Primaxin, ceftriaxone, vancomycin and Bactrim. I paged Dr. Chen to confirm but have not heard back from her. Continue to follow cultures. MRI of the lumbar spine as soon as is feasible and he can remain still.. Presently he is not hypotensive and I don't believe it would dramatically change his treatment overnight tonight. I would like to avoid a nighttime transport to the MRI as well. Plain films of the lumbar spine are pending. Should he deteriorate, consider intubation for MRI. I discussed this with his this evening. Cardiovascular: I have changed his Lopressor from by mouth to IV. Volume resuscitate with albumin. Continue IV fluids. Pulmonary: no acute active issues however I'm concerned that he may develop acute lung injury secondary to sepsis. Renal: Appropriately dosed medications and avoid nephrotoxins. Continue volume resuscitation. GI: Nothing by mouth for now. Provide GI prophylaxis with IV Protonix and follow ammonia level. The GI service also have been consulted. Endocrine: Insulin sliding scale and glycemic management consult. Continue stress dose steroids. Heme: Follow platelets. SCDs for DVT prophylaxis. I discussed his care in detail with his . He is a full code. Questions were answered and support was provided. Critical care time 60 minutes.
[2017-05-19] MEDS: CEFTRIAXONE SOD INJ 2000 MG in DEXTROSE 5% 50ML IV SCH (21:38)
[2017-05-19] MEDS ORDERED: GABAPENTIN 300 MG CAP PO SCH (22:00)
[2017-05-19 22:06] LABS: BUN/CREATININE RATIO 16.6 (10-20); CALCIUM 8.1 mg/dl (8.5-10.1); CREATININE 1.4 mg/dl (0.60-1.40); MAGNESIUM 1.9 mg/dl (1.8-2.4); PHOSPHORUS 2.7 mg/dl (2.5-4.9); POTASSIUM 3.3 mmol/L (3.5-5.1)
--- NOTE | 2017-05-19 22:16 | DIAGNOSTIC IMAGING REPORT ---
LUMBAR SPINE 2 VIEWS CLINICAL HISTORY: Low back pain. FINDINGS: AP and lateral portable views of the lumbar spine are compared to study dated 05/09/2017. Correlation is made with CT scan of the lumbar spine dated 05/02/2017. The examination is degraded by suboptimal positioning and portable technique. The skeletal structures are osteopenic. There is likely a severe compression fracture of L5 with significant loss of height. This is new from 05/09/2017. Vertebral body height is otherwise maintained throughout the lumbar spine. Anterolisthesis is noted at L4-L5. Alignment is otherwise preserved. A disc spacer is seen at L4-L5. The transverse and spinous processes appear intact as visualized. Mild multilevel degenerative disc space narrowing is noted. The bony pelvis is intact as visualized. There is a nonobstructed abdominal bowel gas pattern. IMPRESSION: 1. There is a severe acute compression fracture of L5, new from 05/09/2017. 2. Vertebral body height is otherwise maintained throughout the lumbar spine. Electronically signed by: Gianni Hewitt M.D. 05/19/2017 10:14 PM Dictated Date/Time: 05/19/2017 10:09 PM
[2017-05-19] MEDS ORDERED: POTASSIUM CHLR 20 MEQ / WTR 20 MEQ in PREMIXED WATER 100 ML IV SCH (23:15)
[2017-05-19] MEDS: HYDROCORTISONE IV 50 MG in SYRINGE 0 ML IV SCH (23:43)
[2017-05-19] MEDS: POTASSIUM CHLR 20 MEQ / WTR 20 MEQ in PREMIXED WATER 100 ML IV SCH (23:43)
[2017-05-20] VITALS (11 sets, daily range): BP systolic 88–117; BP diastolic 45–59; PULSE 79–95; TEMP 36.8–38.7; O2SAT 94–99
[2017-05-20] MEDS ORDERED: METOPROLOL TARTRATE 1 MG/ML VIAL IV. SCH
[2017-05-20] MEDS ORDERED: NURSING VERBAL MED ORDER ONE ×2 (01:15→03:45)
[2017-05-20] MEDS: IMIPENEM/CILASTATIN IV 500 MG in DEXTROSE 5% 100ML 100 ML IV SCH ×3 (01:28→12:40)
[2017-05-20] MEDS ORDERED: METOPROLOL TARTRATE 1 MG/ML VIAL IV PRN (02:00)
[2017-05-20] MEDS: POTASSIUM CHLR 20 MEQ / WTR 20 MEQ in PREMIXED WATER 100 ML IV SCH (03:05)
[2017-05-20] MEDS: SODIUM CHLORIDE 0.9% 1000ML 1,000 ML IV SCH ×2 (03:05→12:41)
[2017-05-20] MEDS ORDERED: SULFA IV SCH (04:00)
[2017-05-20] MEDS ORDERED: DEXTROSE 5% IV SCH (04:00)
[2017-05-20] MEDS ORDERED: TRIMETH IV SCH (04:00)
[2017-05-20] MEDS ORDERED: ACETAMINOPHEN IV 650 MG in EMPTY BAG 0 ML IV ONE (04:15)
[2017-05-20] MEDS: HYDROCORTISONE IV 50 MG in SYRINGE 0 ML IV SCH ×2 (05:13→12:40)
[2017-05-20 06:46] LABS: BUN/CREATININE RATIO 16.5 (10-20); CALCIUM 7.8 mg/dl (8.5-10.1); CREATININE 1.4 mg/dl (0.60-1.40); POTASSIUM 3.4 mmol/L (3.5-5.1)
[2017-05-20 06:53] LABS: ALB/GLOB RATIO 0.4 (0.9-2); PHOSPHORUS 1.9 mg/dl (2.5-4.9)
[2017-05-20] MEDS ORDERED: POTASSIUM PHOS 3 MMOL/1 ML INFUSION IV STA (07:34)
[2017-05-20] MEDS ORDERED: POTASSIUM CHLR 20 MEQ / WTR 20 MEQ in PREMIXED WATER 100 ML IV ONE (07:45)
[2017-05-20] MEDS ORDERED: POTASSIUM PHOSPHATE INJ 24 MMOL in SODIUM CHLORIDE 0.9% 500ML 500 ML IV ONE (07:45)
[2017-05-20] MEDS: CEFTRIAXONE SOD INJ 2000 MG in DEXTROSE 5% 50ML IV SCH (07:53)
[2017-05-20] MEDS: INSULIN ASPART 100 UNITS/ML 3 ML PEN SC SCH ×2 (07:53→11:00)
[2017-05-20] MEDS: LACTULOSE SYRUP 20 GM/30 ML UDC PO SCH ×2 (07:54→12:41)
[2017-05-20 08:00] LABS: MEAN CORPUSCULAR HGB CONC 34.2 g/dl (32-36)
[2017-05-20] MEDS ORDERED: VANCOMYCIN INJ 1,250 MG in SODIUM CHLORIDE 0.9% 250ML 250 ML IV SCH (08:00)
[2017-05-20 08:01] LABS: MEAN CORPUSCULAR HEMOGLOBIN 31.4 pg (25-34); RED BLOOD COUNT 2.61 M/uL (4.7-6.1)
--- NOTE | 2017-05-20 08:10 | Progress Note ---
Subjective Date of Service: May 20, 2017. Subjective Pt evaluation today including: conversation w/ patient, physical exam, chart review, lab review pt significantly improved this am. ate breakfast, awake, able to answer questions but remains lethargic and confused at times. still with episode of shaking but much better than yesterday. spoke with primary this am, radiology feels they may have sampled a post op fluid collection and not csf. cultures negative so far. blood cultures pending. remains on broad spectrum abx. still with fevers tmax 38.7. am labs pending. admits to fevers and back pain, remaining ros negative but limited Problem List Medical Problems: (1) Altered mental status Status: Acute (2) Fall in home Status: Acute (3) Fever Status: Acute (4) Hypoxia Status: Acute (5) Immunocompromised Status: Acute (6) Left leg cellulitis Status: Acute (7) Lumbar disc herniation with radiculopathy Status: Acute (8) Orthostasis Status: Acute (9) Sepsis Status: Acute (10) Tenosynovitis, de Quervain Status: Acute (11) Vomiting Status: Acute Objective Vital Signs Date Time Temp Pulse Resp B/P (MAP) Pulse Ox O2 Delivery O2 Flow Rate FiO2 05/20/17 05:00 38.3 85 21 88/52 (64) 97 Room Air 05/20/17 04:34 96 Room Air 05/20/17 04:01 38.7 88 19 102/53 (69) 97 Room Air 05/20/17 03:01 94 17 111/54 (73) 96 Room Air 05/20/17 02:00 95 17 117/57 (77) 99 Room Air 95 05/20/17 01:01 91 19 110/59 (76) 96 Room Air 91 05/20/17 00:06 96 Room Air 05/20/17 00:01 93 23 107/57 (74) 99 Room Air 93 05/19/17 23:13 37.0 88 21 104/52 (69) 98 Room Air 05/19/17 23:10 17 104/52 (69) 99 Room Air 05/19/17 23:00 37.0 17 103/54 (70) 97 Room Air 05/19/17 22:01 88 20 100/56 (71) 98 Room Air 88 05/19/17 21:01 93 17 105/82 (90) 98 Room Air 93 05/19/17 20:45 96 Room Air 05/19/17 20:00 36.7 79 13 88/49 (62) 94 Room Air 79 05/19/17 19:01 92 24 110/64 (79) Room Air 92 05/19/17 17:56 36.8 87 18 109/65 96 Room Air 05/19/17 17:24 89 20 110/67 95 Room Air 05/19/17 16:49 89 18 110/61 97 Room Air 05/19/17 15:41 87 18 95/61 96 Room Air 05/19/17 15:14 87 18 95/61 94 Room Air 05/19/17 14:23 88 18 102/66 92 05/19/17 13:10 90 05/19/17 12:30 88 22 126/65 96 Room Air 05/19/17 12:29 38.6 88 22 126/65 96 Room Air 05/19/17 12:29 96 Room Air 05/19/17 11:19 91 05/19/17 10:57 37.2 88 18 127/79 97 Room Air Physical Exam General Appearance: + mild distress Eyes: EOMI Neck: supple, + pertinent finding (no rigidity) Respiratory/Chest: chest non-tender, lungs clear, normal breath sounds, no respiratory distress Cardiovascular: regular rate, rhythm, no edema Abdomen: non tender, soft Extremities: non-tender, normal inspection, no pedal edema Neurologic/Psychiatric: alert, oriented x 3 Skin: normal color Laboratory Results Item Value Date Time Gram Stain - Final Resulted 05/19/17 1405 Cerebral Spinal Fluid Last 24 Hours Test 05/19/17 11:15 05/19/17 12:30 05/19/17 12:45 05/19/17 13:04 White Blood Count 7.27 K/uL Red Blood Count 3.34 M/uL Hemoglobin 10.4 g/dL Hematocrit 31.4 % Mean Corpuscular Volume 94.0 fL Mean Corpuscular Hemoglobin 31.1 pg Mean Corpuscular Hemoglobin Concent 33.1 g/dl Platelet Count 188 K/uL Mean Platelet Volume 10.1 fL Neutrophils (%) (Auto) 79.6 % Lymphocytes (%) (Auto) 7.6 % Monocytes (%) (Auto) 11.4 % Eosinophils (%) (Auto) 0.7 % Basophils (%) (Auto) 0.3 % Neutrophils # (Auto) 5.79 K/uL Lymphocytes # (Auto) 0.55 K/uL Monocytes # (Auto) 0.83 K/uL Eosinophils # (Auto) 0.05 K/uL Basophils # (Auto) 0.02 K/uL RDW Standard Deviation 53.8 fL RDW Coefficient of Variation 15.7 % Immature Granulocyte % (Auto) 0.4 % Immature Granulocyte # (Auto) 0.03 K/uL Prothrombin Time 14.0 SECONDS Prothromb Time International Ratio 1.3 Activated Partial Thromboplast Time 32.0 SECONDS Partial Thromboplastin Ratio 1.2 Sodium Level 139 mmol/L Potassium Level mmol/L 3.9 mmol/L Chloride Level 106 mmol/L Carbon Dioxide Level 23 mmol/L Anion Gap 10.0 mmol/L Blood Urea Nitrogen 25 mg/dl Creatinine 1.60 mg/dl Est Creatinine Clear Calc Drug Dose 47.8 ml/min Estimated GFR () 52.0 Estimated GFR (Non- 44.9 BUN/Creatinine Ratio 15.6 Random Glucose 142 mg/dl Calcium Level 9.1 mg/dl Magnesium Level mg/dl 2.1 mg/dl Total Bilirubin 2.5 mg/dl Aspartate Amino Transf (AST/SGOT) U/L 37 U/L Alanine Aminotransferase (ALT/SGPT) 24 U/L Alkaline Phosphatase 194 U/L Total Protein 8.0 gm/dl Albumin 2.2 gm/dl Globulin 5.8 gm/dl Albumin/Globulin Ratio 0.4 Urine Color YELLOW Urine Appearance CLEAR Urine pH 5.0 Urine Specific [place] 1.017 Urine Protein TRACE Urine Glucose (UA) NEG Urine Ketones NEG Urine Occult Blood 3+ Urine Nitrite NEG Urine Bilirubin NEG Urine Urobilinogen NEG Urine Leukocyte Esterase NEG Urine WBC (Auto) 1-5 /hpf Urine RBC (Auto) 10-30 /hpf Urine Hyaline Casts (Auto) 1-5 /lpf Urine Epithelial Cells (Auto) 10-20 /lpf Urine Bacteria (Auto) NEG Ammonia 31.0 umol/L Bedside Lactic Acid Venous 2.46 mmol/L Test 05/19/17 14:05 05/19/17 21:27 05/19/17 21:31 05/20/17 06:13 CSF Color RED CSF Appearance BLOODY CSF WBC 77936 /uL CSF RBC 021947 /uL CSF Xanthrochromic XANTHOCHROMIC CSF Cell Count Tube # 1 CSF Mononuclear WBCs % 7.6 % CSF Polynuclear WBCs (%) 92.4 % CSF Chemistry Tube # 2 CSF Glucose 93 mg/dl CSF Total Protein mg/dl Sodium Level 138 mmol/L 138 mmol/L Potassium Level 3.3 mmol/L 3.4 mmol/L Chloride Level 108 mmol/L 109 mmol/L Carbon Dioxide Level 21 mmol/L 21 mmol/L Anion Gap 9.0 mmol/L 8.0 mmol/L Blood Urea Nitrogen 23 mg/dl 23 mg/dl Creatinine 1.40 mg/dl 1.40 mg/dl Est Creatinine Clear Calc Drug Dose 49.8 ml/min 49.8 ml/min Estimated GFR () 61.1 61.1 Estimated GFR (Non- 52.7 52.7 BUN/Creatinine Ratio 16.6 16.5 Random Glucose 139 mg/dl 195 mg/dl Lactic Acid Level 1.6 mmol/L Calcium Level 8.1 mg/dl 7.8 mg/dl Phosphorus Level 2.7 mg/dl 1.9 mg/dl Magnesium Level 1.9 mg/dl 2.0 mg/dl Procalcitonin 0.32 ng/ml 0.35 ng/ml Bedside Glucose 126 mg/dl Total Bilirubin 1.3 mg/dl Aspartate Amino Transf (AST/SGOT) 22 U/L Alanine Aminotransferase (ALT/SGPT) 16 U/L Alkaline Phosphatase 126 U/L Ammonia 17.0 umol/L Total Protein 6.0 gm/dl Albumin 1.8 gm/dl Globulin 4.2 gm/dl Albumin/Globulin Ratio 0.4 Test 05/20/17 06:32 05/20/17 07:37 05/20/17 07:42 Bedside Glucose 166 mg/dl White Blood Count 2.80 K/uL Red Blood Count 2.61 M/uL Hemoglobin 8.2 g/dL Hematocrit 24.0 % Mean Corpuscular Volume 92.0 fL Mean Corpuscular Hemoglobin 31.4 pg Mean Corpuscular Hemoglobin Concent 34.2 g/dl RDW Standard Deviation 52.2 fL RDW Coefficient of Variation 15.3 % Assessment and Plan (1) Meningitis Assessment & Plan: continue abx, follow cultures. unsure if sampled fluid was csf or collection but with continued fevers, mental status change would repeat lp. discussed with primary
[2017-05-20 08:18] LABS: MEAN PLATELET VOLUME 9.4 fL (7.4-10.4); PLATELET COUNT 89 K/uL (130-400)
[2017-05-20 08:19] LABS: BASO % 0.4 %; BASO ABS # 0.01 K/uL (0-0.2); COMPLETE YES; IG% 0.4 %; LARGE PLATELETS 1+; LYMPH % 7.1 %; MONO % 11.8 %; NEUT % 80.3 %; PLT ESTIMATE DECREASED; TARGET CELLS 1+; TOXIC GRANULATION 1+
[2017-05-20] MEDS ORDERED: PANTOprazole SOD 40 MG TAB PO SCH (09:00)
[2017-05-20] MEDS ORDERED: HALOPERIDOL LACTATE 5 MG/ML 1 ML VIAL ONE (09:01)
[2017-05-20] MEDS ORDERED: HALOPERIDOL LACTATE 5 MG/ML 1 ML VIAL IV PRN (09:15)
[2017-05-20 10:21] LABS: CSF APPEARANCE CLOUDY; CSF COLOR ORANGE
[2017-05-20 10:22] LABS: CSF XANTHOCHROMIC XANTHOCHROMIC
[2017-05-20 10:37] LABS: CSF LACTATE** 5.8 mmol/L (0.6-2.2)
[2017-05-20 10:52] LABS: CSF MONONUC RELAT 6.8 %
[2017-05-20] MEDS ORDERED: PANTOprazole INJ 40 MG in SYRINGE 0 ML IV SCH (11:00)
[2017-05-20 11:03] LABS: CSF CHEMISTRY TUBE # 1
[2017-05-20 11:16] LABS: CSF TOTAL PROTEIN 450.3 mg/dl (15.0-45.0)
--- NOTE | 2017-05-20 11:43 | Neurology Consultation ---
Neurology Consultation Date of Service May 20, 2017. Neurology Consultation I have been asked to evaluate this 62 year old man with a very complex chronic and recent medical history by his primary care physician Dr Yas Savage and by the ICU staff. He currently ahs been readmitted to [facility] for assessment of a progressive encephalopathy characterized by confusion, disorientation, delusional thinking, hallucinations and episodic myoclonic movements ove the past week to ten days and in association with fevers of uncertain causation. I refer the reader to the extensive Infectious disease consultation notes, the comprehensive notes of the ICU staff and Dr Yas Savage for details of his recent issues following lumbar disc surgery in February of 2017 and the subsequent post operative infections need for incision and drainage and removal of hardware and the multiple courses of antibiotics that have been and continue to be requires for treatment of this issue He has a past history of steroid dependent sarcoidosis, type two diabetes, an asd repain, hypertension, obstructive sleep apnea, cirrhosis, splenomegaly, thrombocytopenia and is post t an a in the remote past. Meds are as per the EMR he is now on four antibiotics for broad coverage of possible meningitis along with other potential sources of infedtion and lactulose I do not see any ongoing thiamine Family history and social history of no significance other than prior etoh use which has now stopped. Ros as recorded in multiple notes and not obtainable from the patient today Imaging and labs reviewed second Lumbar puncture results pending but initial values suggest peripheral blood contamination Cultures likely to be sterile at this point anywy due to antibiotic rx unless there is a fungal or tuberculous component Exam limited he is according to family a bit more lucid and is jovial but clearly not fully oriented save to year and location and this is inconsistent He is hallucinating looking about the room and at times appearing to be conversing with unseen individuals. There is no clear confabulation per se but it would be very hard to demonstrate in light of the global confusional state. Ocular movements are normal and full no nystagmus is seen and all extremities move well and symmetrically Reflexes difficult to test and strength is also but appears to be grossly normal and there is no atrophy of significance specifically in L4-5 innervated groups Sensation cannot be reliably tested There are periodic myoclonic movements of his angel and head and rarely legs No clear asterixis seen. At this point the diagnosis remains a nonspecific encephalopathy likely toxic an metabolic and likely multifactorial. My only recommendations are to await results of csf, check an eeg at some point (but doubt nonconvulsive status here in light of his exam ), check a brain mri with contrast if renal function will permit and at a time when he can cooperate and to rx empirically with thiamine to cover potential Wernicke Korsakoff syndrome I will check back tomorrow discussed with Dr Yas Savage earlier Orlando Serra MD
--- NOTE | 2017-05-20 11:50 | DIAGNOSTIC IMAGING REPORT ---
FLUOROSCOPICALLY GUIDED LUMBAR PUNCTURE CLINICAL HISTORY: Encephalopathy. PROCEDURE: The procedure, risks and benefits were discussed with the the patient's given the patient's altered mental status including the risk of spinal headache, bleeding and infection. She agreed to the procedure and informed written consent was obtained. The procedure was performed by Dr. Buchanan following a timeout. Initially, the left L2-L3 interlaminar space was targeted. Skin overlying the space was prepped and draped in sterile fashion and local anesthesia was achieved with 1% lidocaine. Under intermittent fluoroscopic guidance, a 5 inch, 22-gauge spinal needle was directed into the thecal sac. There was immediate return of blood-tinged CSF. Only a small amount of CSF was obtained possibly due to low pressure. Attempt was made at the L1-L2 level as well. A small amount of CSF was obtained. A total of 2 cc of blood-tinged CSF was collected and sent to laboratory for analysis. Fluoroscopy time was 1.3 minutes. 4 fluoroscopic images were obtained. IMPRESSION: Fluoroscopically guided lumbar puncture with collection of 2 cc of blood-tinged CSF. No additional CSF could be obtained as this exam was technically difficult. Fluid sent to the laboratory for analysis. Electronically signed by: Shayne Buchanan M.D. 05/20/2017 11:49 AM Dictated Date/Time: 05/20/2017 11:43 AM
--- NOTE | 2017-05-20 12:09 | Consultant Recommendations ---
Wafer Line Worker Recommendations Date of Service May 20, 2017. Wafer Line Worker Recommendations The patient remains intermittently confused. Currently neutropenic, thrombocytopenic, anemic. On broad spectrum abx. No neuro change from last PM. Has intact motor function in BLE, but limited by pain and confusion. Xrays show progressive collapse of L5 with retrolisthesis into canal and migration of interbody spacer into body of L4. This likely represents bony destruction and instability due to osteomyelitis. 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 Transfer to tertiary care at [facility] for further management has been agreed to and he has been accepted by [facility] and [facility] service at [facility].
--- NOTE | 2017-05-20 13:16 | Progress Note ---
Progress Note Date of Service May 20, 2017. Progress Note There were no acute events overnight. The patient's care was discussed in detail with his bedside nurse, Lita. He had a double lumen PICC line placed last night and remains on Rocephin, Bactrim, Primaxin and vancomycin. He still has a sitter at his bedside secondary to some visual hallucinations and agitation. He received Haldol 2.5 mg IV 1 last evening for the PICC line and responded well. He is much easier to understand today is far as his speech goes but is still confused. He is able to tell me his back pain is about 5 or 6 out of 10. He had a bowel movement this morning. He underwent a repeat lumbar puncture this morning with fluoroscopic guidance. He has over 7000 white blood cells in this CSF sample. Vital signs maximum temperature 38.7 heart rate 85-94 respiratory rate 17-19 blood pressure 88-117/56 oxygen saturation 97% on room air fluid balance overnight is even. Exam: Gen.: This is a chronically ill appearing gentleman who is fidgeting in the bed and picking at his sheets. He sometimes picks at things in the air. He laughs at inappropriate times. Neuro: He moves all 4 extremities to command. The right proximal lower extremity strength seems to be limited by back pain, distal strength is 4/5 bilaterally. Upper extremity strength is 4/5. Sensation is grossly intact. CAM assessment is positive. Lungs: Clear to auscultation bilaterally. No rhonchi or wheezes. Heart: regular rate and rhythm with 2/6 systolic murmur murmur Abdomen: Soft, nondistended, nontender, active bowel sounds. Extremities: No edema Skin: Very thin and dry. Last 24 Hours Test 05/19/17 13:04 05/19/17 14:05 05/19/17 21:27 05/19/17 21:31 Bedside Lactic Acid Venous 2.46 mmol/L CSF Color RED CSF Appearance BLOODY CSF WBC 16019 /uL CSF RBC 440837 /uL CSF Xanthrochromic XANTHOCHROMIC CSF Cell Count Tube # 1 CSF Mononuclear WBCs % 7.6 % CSF Polynuclear WBCs (%) 92.4 % CSF Chemistry Tube # 2 CSF Glucose 93 mg/dl CSF Total Protein mg/dl Sodium Level 138 mmol/L Potassium Level 3.3 mmol/L Chloride Level 108 mmol/L Carbon Dioxide Level 21 mmol/L Anion Gap 9.0 mmol/L Blood Urea Nitrogen 23 mg/dl Creatinine 1.40 mg/dl Est Creatinine Clear Calc Drug Dose 49.8 ml/min Estimated GFR () 61.1 Estimated GFR (Non- 52.7 BUN/Creatinine Ratio 16.6 Random Glucose 139 mg/dl Lactic Acid Level 1.6 mmol/L Calcium Level 8.1 mg/dl Phosphorus Level 2.7 mg/dl Magnesium Level 1.9 mg/dl Procalcitonin 0.32 ng/ml Bedside Glucose 126 mg/dl Test 05/20/17 06:13 05/20/17 06:32 05/20/17 07:31 05/20/17 07:42 Sodium Level 138 mmol/L Potassium Level 3.4 mmol/L Chloride Level 109 mmol/L Carbon Dioxide Level 21 mmol/L Anion Gap 8.0 mmol/L Blood Urea Nitrogen 23 mg/dl Creatinine 1.40 mg/dl Est Creatinine Clear Calc Drug Dose 49.8 ml/min Estimated GFR () 61.1 Estimated GFR (Non- 52.7 BUN/Creatinine Ratio 16.5 Random Glucose 195 mg/dl Calcium Level 7.8 mg/dl Phosphorus Level 1.9 mg/dl Magnesium Level 2.0 mg/dl Total Bilirubin 1.3 mg/dl Aspartate Amino Transf (AST/SGOT) 22 U/L Alanine Aminotransferase (ALT/SGPT) 16 U/L Alkaline Phosphatase 126 U/L Ammonia 17.0 umol/L Total Protein 6.0 gm/dl Albumin 1.8 gm/dl Globulin 4.2 gm/dl Albumin/Globulin Ratio 0.4 Procalcitonin 0.35 ng/ml Bedside Glucose 166 mg/dl Lactic Acid Level 2.9 mmol/L White Blood Count 2.80 K/uL Red Blood Count 2.61 M/uL Hemoglobin 8.2 g/dL Hematocrit 24.0 % Mean Corpuscular Volume 92.0 fL Mean Corpuscular Hemoglobin 31.4 pg Mean Corpuscular Hemoglobin Concent 34.2 g/dl Platelet Count 89 K/uL Mean Platelet Volume 9.4 fL Neutrophils (%) (Auto) 80.3 % Lymphocytes (%) (Auto) 7.1 % Monocytes (%) (Auto) 11.8 % Eosinophils (%) (Auto) 0.0 % Basophils (%) (Auto) 0.4 % Neutrophils # (Auto) 2.25 K/uL Lymphocytes # (Auto) 0.20 K/uL Monocytes # (Auto) 0.33 K/uL Eosinophils # (Auto) 0.00 K/uL Basophils # (Auto) 0.01 K/uL RDW Standard Deviation 52.2 fL RDW Coefficient of Variation 15.3 % Immature Granulocyte % (Auto) 0.4 % Immature Granulocyte # (Auto) 0.01 K/uL Toxic Granulation 1+ Platelet Estimate DECREASED Large Platelets 1+ Target Cells 1+ Random Cortisol > 150.00 mcg/dl Test 05/20/17 09:31 05/20/17 11:23 CSF Color ORANGE CSF Appearance CLOUDY CSF WBC 7872 /uL CSF RBC 40229 /uL CSF Xanthrochromic XANTHOCHROMIC CSF Cell Count Tube # 1 CSF Mononuclear WBCs % 6.8 % CSF Polynuclear WBCs (%) 93.2 % CSF Chemistry Tube # 1 CSF Glucose 79 mg/dl CSF Lactic Acid 5.8 mmol/L CSF Total Protein 450.3 mg/dl Bedside Glucose 144 mg/dl LUMBAR SPINE 2 VIEWS CLINICAL HISTORY: Low back pain. FINDINGS: AP and lateral portable views of the lumbar spine are compared to study dated 05/09/2017. Correlation is made with CT scan of the lumbar spine dated 05/02/2017. The examination is degraded by suboptimal positioning and portable technique. The skeletal structures are osteopenic. There is likely a severe compression fracture of L5 with significant loss of height. This is new from 05/09/2017. Vertebral body height is otherwise maintained throughout the lumbar spine. Anterolisthesis is noted at L4-L5. Alignment is otherwise preserved. A disc spacer is seen at L4-L5. The transverse and spinous processes appear intact as visualized. Mild multilevel degenerative disc space narrowing is noted. The bony pelvis is intact as visualized. There is a nonobstructed abdominal bowel gas pattern. IMPRESSION: 1. There is a severe acute compression fracture of L5, new from 05/09/2017. 2. Vertebral body height is otherwise maintained throughout the lumbar spine. Electronically signed by: Gianni Hewitt M.D. 05/19/2017 10:14 PM Dictated Date/Time: 05/19/2017 10:09 PM Blood cultures 05/19/17 pending, urine culture also pending 05/19/17 CSF Gram stain 05/19/17 with many white blood cells no organisms CSF Gram stain 05/20/17 many polys no organisms CSF cultures pending Medications: Acetaminophen, ceftriaxone day 2, Haldol when necessary, hydrocortisone, imipenem day 2, insulin sliding scale, lactulose, Lopressor when necessary, Protonix, normal saline 100 mL per hour, Bactrim day 2, vancomycin. Impression: 1. Sepsis. This is most likely secondary to osteomyelitis or meningitis. He is being covered broadly with antibiotics and is known to have had recent infection of his lumbar surgical site. His hardware was removed and his most recent x-ray of the lumbar spine shows an acute compression fracture. The orthopedic service has seen the patient this morning and has made arrangements for transfer to [facility] for further evaluation and possible surgical intervention. 2. Acute metabolic encephalopathy, likely secondary to #1. 3. Acute kidney injury, improved 4. Steroid-dependent sarcoidosis on stress dose steroids. Random cortisol is greater than 150. 5. History of cirrhosis with ascites and splenomegaly. Ammonia level is still satisfactory without his lactulose. He has been unable to take it due to his waxing and waning mental status. Bilirubin is improved compared to yesterday 6. History of chronic thrombocytopenia, platelets are down to 85,000 now. 7. Anemia, no signs of acute blood loss. He may be hemodilution to do and this may be partially due to sepsis as well. 8. History of ASD repair 9. Hypokalemia and hypophosphatemia Plan: Neuro: Continue Haldol 2.5 mg IV every 6 hours for agitation. Avoid benzodiazepines. Reorient frequently. Follow neuro exam. Continue Tylenol for pain. Consider low-dose Dilaudid as well. Infectious disease: Continue Rocephin, Bactrim, Primaxin and vancomycin. He is being transferred to [facility] for possible surgical debridement of the lumbar operative site. Hold on MRI secondary to pending transfer. Cardiovascular: Continue Lopressor when necessary. Continue IV fluids. Pulmonary: No active issues. GI: Continue GI prophylaxis and followed ammonia level. He is tolerating some clears. I will hold anything by mouth for the impending transfer. Endocrine. Continue insulin sliding scale and consider decreasing steroids. Heme. Follow platelets and watch for signs of bleeding. SCDs for DVT prophylaxis. Renal: Electrolytes are being repleted. Consider changing fluids to half- normal saline. As noted previously, he is being transferred to [facility]. has communicated with the orthopedics and critical care services at [facility]. Please call me about any Medical Center for any questions or concerns.
[2017-05-21] MEDS ORDERED: VANCOMYCIN TROUGH SCH (11:30)
--- NOTE | 2017-06-03 18:24 | Discharge Summary ---
Discharge Summary Date of Service Jun 03, 2017. Discharge Summary Admission Date: 05/19/2017 Discharge Date: 05/20/2017 Discharge Diagnoses: Lumbar spinal abscess Postoperative compression fracture and collapse of the L5 Osteomyelitis Suspected Meningitis Mental status changes secondary to ongoing infection Sleep apnea Sarcoidosis History of atrial septal defect requiring repair Liver cirrhosis Thrombocytopenia type 2 diabetes mellitus Arterial hypertension 62-year-old male admitted from [facility] with multiple problems including mental status changes, confusion, delirium,he has had multiple surgeries for herniated disc and severe postoperative complications. Postoperatively he had a severe infection with epidural abscess which grew Staphylococcus, requiring additional interventions. He also had loosening of the hardware and it was removed except for a spacer. He was also hospitalized for urinary tract infection with urosepsis. He has been on IV antibiotics initially with vancomycin and then with daptomycin since is due 03/25/2017. He also received a full course of IV ertapenem for his urinary tract infection and urosepsis. Patient has had recurrent fever in spite of the antibiotic treatment. His mental status has been altered significantly. He has been confused. Hallucinating. His oral intake has not been adequate. He was transferred to the emergency room. He was evaluated by Dr. Diehl. Multiple cultures were done. A lumbar puncture was also done in the radiology Department by Dr. Buchanan. The results were consistent with severe meningitis. But Dr. Buchanan was not completely sure that he would do spinal fluid. It was a possible that he drained an epidural abscess area. Infectious disease consultation was requested from Dr. Pallavi Chen. Patient was started on IV Septra, IV ceftriaxone, IV vancomycin, and IV Primaxin. Patient was admitted to ICU for further evaluation and treatment. Intensive care medicine was requested from Dr. Rocio Pagan. Past medical history social history and family history were all as noted on his admission history and physical Allergies: Celebrex Penicillin Medications on admission were all as noted on his home medication list Hospital Course: Patient was admitted to ICU. All cultures were done. He was continued on the 4 antibiotics as noted above. He was seen in orthopedic surgery consultation by Dr. Jj. In view of the initial results of his lumbar puncture the procedure was repeated by Dr. Buchanan. The spinal fluid analysis was still markedly abnormal motor. The main issue is with a concern about epidural abscess or spinal fluid leak. Could not be absolutely sure that the CSF was sampled. X-rays of his lumbar spine were done. There was evidence of severe compression fracture and collapse of satisfying. There was also suspicion of an abscess. Unfortunately because of his mental status an MRI could not be done immediately. Patient would have to be intubated and sedated. Dr. Jj recommended that we transfer care Mr. Santiago to a tertiary care hospital because he anticipated that the patient will need extensive surgery which could not be done here. He made arrangements for transfer to [facility] orthopedic surgery Department for further treatment. Patient was to be admitted to ICU at [facility]. Initially arrangements were being made for transfer by helicopter but the weather did not permit it. The transfer Team came by ambulance from [facility] and transported the patient.
== END 2017-05-20 14:55 | disposition short-term general hospital (02) | DRG 856 ==
LOC: EDBD 10:47 → C.EDC 10:48 → C.MSICU 16:42 → UNDOADMIN 16:42 → ENRESERV 16:51
PROVIDERS: ADMIT Internal Medicine; ATTEND Internal Medicine
PROC: 009Y00Z Drainage of Lumbar Spinal Cord with Drainage Device, Open Approach (ICD-10-PCS; principal; 2017-05-20)
DX: T81.4XXA Infection following a procedure, initial encounter (principal); G06.1 Intraspinal abscess and granuloma; G03.9 Meningitis, unspecified; I10 Essential (primary) hypertension; E78.5 Hyperlipidemia, unspecified; E11.43 Type 2 diabetes mellitus with diabetic autonomic (poly)neuropathy; J45.909 Unspecified asthma, uncomplicated; D64.9 Anemia, unspecified; K21.9 Gastro-esophageal reflux disease without esophagitis; R41.0 Disorientation, unspecified; E87.6 Hypokalemia; E83.39 Other disorders of phosphorus metabolism; D86.9 Sarcoidosis, unspecified; G47.33 Obstructive sleep apnea (adult) (pediatric); Y83.8 Other surgical procedures as the cause of abnormal reaction of the patient, or of later complication, without mention of misadventure at the time of the procedure; Z79.4 Long term (current) use of insulin; Z79.52 Long term (current) use of systemic steroids

== ENCOUNTER → 2017-06-16 | Outpatient (CLI) | payer BC ==
[~2017-06-16] MED LIST changes: +ACET-1256 PO; +ACET325T96 PO; +ALBINSX INH; +BISA10SU7 PR; +CEFT1INJ6 IV; +CNCI50 IV; +CYCL5TAB PO; +DOCU100C31 PO; +ENOX40IN SQ; +FLUT0.15 NAE; +FURO-85 PO; +FURO80TA63 PO; +GABA-113 PO; +INSDGI SC; +LACT10SO17 PO; -MCRK20 PO; +MELA3TAB PO; +METO50TA16 PO; -METO50TA17 PO; +NF656 TD; +OMEP40CA41 PO; +ONDA4TAB46 PO; +OXYC1TAB3 PO; +PANT40TA PO; +POLY1POW2 PO; +POTA20TA16 PO; +PRED20TA PO; +PROM25IN13 IV; +PROP10TA7 PO; +PROP20TA67 PO; +QUET1TAB30 PO; +REPA1TAB5 PO; +RIFA300C34 PO; +RIFA550T2 PO; +RXC/5 PO; +SIME80CH40 PO; +SIMV20TA2 PO; +SPIR50TA2 PO; +VNTHFA/IN INH
[2017-06-16 08:33] LABS: ALT/SGPT 18 U/L (12-78); AST/SGOT 28 U/L (15-37); BLOOD UREA NITROGEN 14 mg/dl (7-18); BUN/CREATININE RATIO 13.6 (10-20); CALCIUM 7.2 mg/dl (8.5-10.1); CARBON DIOXIDE 25 mmol/L (21-32); CHLORIDE 101 mmol/L (98-107); GLUCOSE 77 mg/dl (70-99); POTASSIUM 2.6 mmol/L (3.5-5.1); SODIUM 136 mmol/L (136-145)
[2017-06-16 08:43] LABS: ALB/GLOB RATIO 0.4 (0.9-2); ALKALINE PHOSPHATASE 301 U/L (45-117); PREALBUMIN < 3.0 mg/dl (20-40)
== END ==
LOC: C.LABCC 07:49
DX: R60.9 Edema, unspecified (principal); K74.60 Unspecified cirrhosis of liver

== ENCOUNTER 2017-06-17 15:31 | Inpatient (IN) | payer BC, OTHER ==
[~2017-06-17] VITALS: Ht 170.2 cm; Wt 96.0 kg
[~2017-06-17 15:31] MED LIST changes: -ACET-1256 PO; -ALBINSX INH; -ATOR10TA88 PO; -BISA10SU7 PR; -CEFT1INJ6 IV; -CNCI50 IV; -DOCU100C31 PO; -ENOX40IN SQ; -FLUT0.15 NAE; -FRS/40 PO; -FURO80TA63 PO; -INSDGI SC; -MELA3TAB PO; -NF656 TD; -OMEP40CA41 PO; -ONDA4TAB46 PO; -OXYC1TAB3 PO; -PANT40TA PO; -POLY1POW2 PO; -PRED20TA PO; -PROM25IN13 IV; -PROP10TA7 PO; -PROP20TA67 PO; -QUET1TAB30 PO; -REPA1TAB5 PO; -RIFA300C34 PO; -RIFA550T2 PO; -SIME80CH40 PO; -SIMV20TA2 PO; -SPIR50TA2 PO; -VNTHFA/IN INH
[2017-06-17] MEDS ORDERED: FLUT0.15 NAE (15:52)
[2017-06-17] MEDS ORDERED: ONDA4TAB46 PO (15:52)
[2017-06-17] MEDS ORDERED: MELA3TAB PO (15:52)
[2017-06-17] MEDS ORDERED: PROP20TA67 PO (15:52)
[2017-06-17] MEDS ORDERED: REPA1TAB5 PO (15:52)
[2017-06-17] MEDS ORDERED: PRED20TA PO (15:52)
[2017-06-17] MEDS ORDERED: SIMV20TA2 PO (15:52)
[2017-06-17] MEDS ORDERED: RIFA300C34 PO (15:52)
[2017-06-17] MEDS ORDERED: RIFA550T2 PO (15:52)
[2017-06-17] MEDS ORDERED: QUET1TAB30 PO (15:52)
[2017-06-17] MEDS ORDERED: FURO80TA63 PO (15:52)
[2017-06-17] MEDS ORDERED: XPNINS125 INH (15:52)
[2017-06-17] MEDS ORDERED: SPIR50TA2 PO (15:52)
[2017-06-17] MEDS ORDERED: NF656 TD (15:52)
[2017-06-17] MEDS ORDERED: CEFT1INJ6 IV (15:54)
[2017-06-17] MEDS ORDERED: VNTHFA/IN INH (16:06)
[2017-06-17] MEDS ORDERED: OXYC1TAB3 PO (16:06)
[2017-06-17] MEDS ORDERED: ACET325T96 PO (16:06)
[2017-06-17] MEDS ORDERED: OMEP40CA41 PO (16:06)
[2017-06-17] MEDS ORDERED: SIME80CH40 PO (16:06)
[2017-06-17] MEDS ORDERED: PROM25IN13 IV (16:06)
--- NOTE | 2017-06-17 16:17 | EMERGENCY ROOM VISIT NOTE ---
History Report prepared by Scribe: Danielle Huitron Under the Supervision of: Dr. Harriet Harman D.O. First contact with patient: 15:51 Chief Complaint: OTHER COMPLAINT Stated Complaint: LETHARGIC, ILLNESS History of Present Illness The patient is a 62 year old male who presents to the Emergency Room with complaints of worsening lethargy that started within the past day. He was brought to the ED via EMS and is accompanied by his . The patient has undergone 5 back surgeries since February 2017 for a history of lumbar stenosis. 3 of the surgeries were performed in [place] at [facility], and 2 were performed here at [facility]. His initial surgery was performed by Dr. Gray at [facility] and afterwards he developed an infection, requiring multiple additional surgeries. This morning, the patient's primary care physician, Dr. Nielsen, stopped in to visit him at [facility], where he is getting post-surgical rehabilitation, and referred the patient to the ED for further evaluation after seeing how weak he was. The patient states his legs have been so swollen and weeping so much recently that he thought they were "going to explode". His states his abdomen is distended and he has a history of abdominal ascites due to cirrhosis. The patient complains of nausea, but has not vomited. He was given Phenergan and Rocephin in the field but states they have provided only minimal relief. He does receive IV antibiotics twice a day at [facility]. 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 A total of 10 systems reviewed and were otherwise negative. 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 SARCOIDOSIS. DM2,POST LUMBAR DISC SURGERY (9) HERNIATED L4-L5 DISC (10) Hyperlipidemia (11) Hypertension (12) Infection of lumbar spine (13) Kidney stone (14) Lumbar stenosis with neurogenic claudication (15) Meningitis (16) MSC. FEVER.,?MENINGITIS,DM2,SARCOIDOSIS,SLEEP APNEA (17) Obesity (18) Post op infection (19) Sarcoidosis (20) Septal defect (21) SEVERE CELLULITIS L LEG,SEPSIS SYNDROME (22) Sleep apnea (23) Thrombocytopenia Family History Patient reports no known family medical history. Social History Alcohol Use: none Drug Use: none Marital Status: Housing Status: lives with family Occupation Status: retired Current/Historical Medications Scheduled Ceftriaxone Sodium (Rocephin), 2 GM IV Q12 Cyclosporine (Ophth) (Restasis), 1 DROP OPB BID Fluticasone Propionate (Nasal) (Flonase Allergy Relief), 2 SPRAYS JORGE DAILY Furosemide (Lasix), 80 MG PO BID Insulin Aspart (Novolog Penfill), SC AC Lactulose (Chronulac), 30 ML PO TID Levalbuterol (Levalbuterol HCl), 1.25 MG INH TID Lidocaine (Lidoderm Patch 5%), 1 PATCH TD QAM Melatonin (Melatonin), 6 MG PO HS Omeprazole (Prilosec), 40 MG PO BID Pentoxifylline (Trental), 400 MG PO TID Potassium Ext Rel (Klor-Con), 40 MEQ PO QAM Prednisone (Prednisone), 20 MG PO QAM Propranolol (Inderal), 20 MG PO BID Quetiapine Fumarate (Seroquel), 25 MG PO HS Repaglinide (Prandin), 0.5 MG PO TID Rifampin (Rifadin), 300 MG PO BID Rifaximin (Xifaxan), 550 MG PO BID Simvastatin (Zocor), 20 MG PO HS Spironolactone (Aldactone), 50 MG PO DAILY Scheduled PRN Acetaminophen Tab (Tylenol), 650 MG PO Q6 PRN for Mild Pain Albuterol Hfa (Ventolin Hfa), 2-4 PUFFS INH Q4 PRN for Shortness of Breath Ondansetron Hcl (Zofran), 4 MG PO Q6 PRN for Nausea Oxycodone Ir (Roxicodone Ir), 5 MG PO Q4H PRN for Moderate Pain Promethazine Hcl (Phenergan), 25 MG IV Q6 PRN for Nausea or Vomiting Simethicone (Cvs Gas Relief), 80 MG PO Q6 PRN for GAS Allergies Coded Allergies: Celecoxib (Verified Allergy, Intermediate, HIVES, 05/02/17) Penicillins (Verified Allergy, Intermediate, HIVES, 05/02/17) Physical Exam Vital Signs Date Time Temp Pulse Resp B/P (MAP) Pulse Ox O2 Delivery O2 Flow Rate FiO2 06/17/17 18:03 88/61 06/17/17 18:01 73 16 87/57 99 06/17/17 18:00 87/57 06/17/17 17:56 75 12 97 06/17/17 17:51 71 10 96 06/17/17 17:46 74 16 98 06/17/17 17:41 69 17 99 06/17/17 17:36 71 10 98 06/17/17 17:31 76 11 96 06/17/17 17:26 76 11 97 06/17/17 17:25 81 19 100/62 97 06/17/17 17:22 100/65 06/17/17 17:21 74 19 99 06/17/17 17:16 73 19 98 06/17/17 17:11 73 12 98 06/17/17 17:06 73 12 99 06/17/17 17:01 71 14 97 06/17/17 16:56 74 14 96 06/17/17 16:51 72 14 97 06/17/17 16:46 70 10 98 06/17/17 16:41 70 10 97 06/17/17 16:36 68 13 96 06/17/17 16:31 77 14 93 06/17/17 16:26 72 14 97 06/17/17 16:21 71 14 94 06/17/17 16:16 71 14 97 06/17/17 16:14 73 06/17/17 16:11 73 14 97 06/17/17 16:06 73 15 97 06/17/17 16:01 72 13 99 06/17/17 15:56 74 17 98 06/17/17 15:50 36.3 75 18 104/71 99 Room Air 06/17/17 15:39 104/71 Physical Exam HEENT: Head - normocephalic and atraumatic Eyes are proptotic. Pupils are equal, round, and reactive to light. Extraocular eye muscles are intact, and scleral icteric. Nose - moist nasal mucosa without discharge. Mouth - moist buccal mucosa. Oropharynx is nonerythematous and there is no tonsillar exudate or edema noted. Neck: Supple; no JVD, nuchal rigidity, cervical lymphadenopathy. Heart: Regular rate and rhythm. There is a normal S1 and S2 with no murmurs, clicks, or gallops appreciated. Lungs: Clear to auscultation bilaterally with no wheezes, rales, or rhonchi. Abdomen: Abdomen is distended, soft, completely nontender, with good bowel sounds. There are no palpable pulsatile masses or hepatosplenomegaly. There is no guarding, rigidity, or rebound noted. Extremities: 4+ edema in the legs with weeping wounds. No evidence of cyanosis, clubbing. There are easily palpable peripheral pulses. Skin: Skin is jaundiced, warm and dry with good turgor and no rashes. Neuro: The patient seems slightly lethargic but is awake, alert and oriented. Medical Decision & Procedures Laboratory Results 06/17/17 16:35 Red Blood Count 2.97, Mean Corpuscular Volume 89.6, Mean Corpuscular Hemoglobin 31.0, Mean Corpuscular Hemoglobin Concent 34.6, Mean Platelet Volume 9.9, Neutrophils (%) (Auto) 66.3, Lymphocytes (%) (Auto) 15.0, Monocytes (%) (Auto) 12.0, Eosinophils (%) (Auto) 5.2, Basophils (%) (Auto) 0.9, Neutrophils # (Auto ) 3.55, Lymphocytes # (Auto) 0.80, Monocytes # (Auto) 0.64, Eosinophils # (Auto ) 0.28, Basophils # (Auto) 0.05 06/17/17 16:35 Test 06/17/17 15:43 06/17/17 16:35 Urine Color DK YELLOW Urine Appearance CLEAR (CLEAR) Urine pH 6.5 (4.5-7.5) Urine Specific Hollister 1.011 (1.000-1.030) Urine Protein NEG (NEG) Urine Glucose (UA) NEG (NEG) Urine Ketones NEG (NEG) Urine Occult Blood 2+ (NEG) Urine Nitrite NEG (NEG) Urine Bilirubin NEG (NEG) Urine Urobilinogen NEG (NEG) Urine Leukocyte Esterase NEG (NEG) Urine WBC (Auto) 0 /hpf (0-5) Urine RBC (Auto) 10-30 /hpf (0-4) Urine Hyaline Casts (Auto) 0 /lpf (0-5) Urine Epithelial Cells (Auto) 0-5 /lpf (0-5) Urine Bacteria (Auto) NEG (NEG) White Blood Count 5.35 K/uL (4.8-10.8) Red Blood Count 2.97 M/uL (4.7-6.1) Hemoglobin 9.2 g/dL (14.0-18.0) Hematocrit 26.6 % (42-52) Mean Corpuscular Volume 89.6 fL (80-100) Mean Corpuscular Hemoglobin 31.0 pg (25-34) Mean Corpuscular Hemoglobin Concent 34.6 g/dl (32-36) Platelet Count 154 K/uL (130-400) Mean Platelet Volume 9.9 fL (7.4-10.4) Neutrophils (%) (Auto) 66.3 % Lymphocytes (%) (Auto) 15.0 % Monocytes (%) (Auto) 12.0 % Eosinophils (%) (Auto) 5.2 % Basophils (%) (Auto) 0.9 % Neutrophils # (Auto) 3.55 K/uL (1.4-6.5) Lymphocytes # (Auto) 0.80 K/uL (1.2-3.4) Monocytes # (Auto) 0.64 K/uL (0.11-0.59) Eosinophils # (Auto) 0.28 K/uL (0-0.5) Basophils # (Auto) 0.05 K/uL (0-0.2) RDW Standard Deviation 58.2 fL (36.4-46.3) RDW Coefficient of Variation 17.7 % (11.5-14.5) Immature Granulocyte % (Auto) 0.6 % Immature Granulocyte # (Auto) 0.03 K/uL (0.00-0.02) Prothrombin Time 15.1 SECONDS (9.0-12.0) Prothromb Time International Ratio 1.4 (0.9-1.1) Activated Partial Thromboplast Time 39.1 SECONDS (21.0-31.0) Partial Thromboplastin Ratio 1.5 Anion Gap 8.0 mmol/L (3-11) Est Creatinine Clear Calc Drug Dose 83.7 ml/min Estimated GFR () 95.2 Estimated GFR (Non- 82.2 BUN/Creatinine Ratio 11.5 (10-20) Calcium Level 6.8 mg/dl (8.5-10.1) Phosphorus Level 2.9 mg/dl (2.5-4.9) Magnesium Level 1.5 mg/dl (1.8-2.4) Total Bilirubin 4.8 mg/dl (0.2-1) Direct Bilirubin 3.6 mg/dl (0-0.2) Aspartate Amino Transf (AST/SGOT) 27 U/L (15-37) Alanine Aminotransferase (ALT/SGPT) 19 U/L (12-78) Alkaline Phosphatase 348 U/L (45-117) Ammonia < 10.0 umol/L (11-32) Total Protein 4.9 gm/dl (6.4-8.2) Albumin 1.4 gm/dl (3.4-5.0) Lipase 447 U/L (73-393) Laboratory results per my review. Medications Administered Medications (Trade) Dose Ordered Sig/Nathalia Route Start Time Stop Time Status Last Admin Dose Admin Sodium Chloride 1,000 ml @ 250 mls/hr Q4H STAT IV 06/17/17 17:12 06/17/17 21:11 06/17/17 17:34 250 MLS/HR Potassium Chloride (Kcl 10 Meq / Wtr) 10 meq NOW STAT IV 06/17/17 17:12 06/17/17 17:13 DC 06/17/17 17:35 10 MEQ Sodium Chloride 500 ml @ 999 mls/hr Q31M STAT IV 06/17/17 18:05 06/17/17 18:35 DC 06/17/17 18:05 999 MLS/HR Procedure Potassium Chloride IV. NSS IV. ECG Indication: weakness Rate (beats per minute): 73 Rhythm: normal sinus Findings: no acute ischemic change, no ectopy ED Course 1555: Past medical records reviewed. The patient was evaluated in room C12. A complete history and physical exam was performed. labs were drawn as above. 1711: Nursing informed me the patient's Potassium is 2.3. 1712: Potassium Chloride 10 meq IV, NSS 1000 ml @ 250 mls/hr IV. 1745: I reevaluated the patient. He is resting comfortably. I discussed his results and my recommendation that he remain in the hospital for further evaluation and management and he and his family verbalized complete understanding and agreement. 1747: I discussed the patients case with Dr. Nielsen, [facility]. The patient will be further evaluated. 1803: Nursing informed me the patients blood pressure is in the 80s systolic. I will administer a fluid bolus. 180: NSS 500 ml @ 999 mls/hr IV. Medical Decision The patient is a 62 year old male who presents to the ED with lethargy. The differential diagnoses considered include: cirrhosis, elevated ammonia level, worsening liver failure and dehydration. Lab results show no leukocytosis. Hemoglobin is 9.2 which is baseline for him. Platelets are 154, which is improved from previous admission. Potassium is 2.3. Magnesium is 1.5. Normal renal function. Glucose is 83. Calcium is 6.8. Total bilirubin is 4.8. Direct bilirubin is 3.6. Trans aminase level is normal. Alkaline Phosphatase is 348. Ammonia is less than 10. Lipase is 447. Urine has 2 + blood, and 10 to 30 red blood cells. INR is 1.4. Phosphorus-2.9 This is a 62-year-old male patient with a long-standing history of cirrhosis and hepatic encephalopathy. His PCP/friend had stopped by to visit him today at [facility] and noted that he was increasingly lethargic and more jaundiced. He recommended that the [facility] doctors have the patient evaluated here at the hospital. The patient has noticed increased edema to his legs and they have begun to weep. The patient has quite an extensive spinal surgery history with a total 5 surgeries since February 2017. The patient's potassium was noted to be low along with his magnesium and calcium. He has had previous episodes of electrolyte derangement. I've discussed the case with his PCP and he will evaluate the patient here in the hospital. The patient is currently receiving IV potassium replacement and IV crystalloid therapy for some hypotension. Medication Reconcilliation Current Medication List: was personally reviewed by me Blood Pressure Screening Patient's blood pressure: Normal blood pressure Blood pressure disposition: Did not require urgent referral Consults Time Called: 1744 Consulting Physician: Dr. Yas Savage, [facility] Returned Call: 1746 I discussed the patients case with Dr. Nielsen, [facility]. The patient will be further evaluated. Impression Primary Impression: Hypokalemia Additional Impression: Hepatic encephalopathy Scribe Attestation The scribe's documentation has been prepared under my direction and personally reviewed by me in its entirety. I confirm that the note above accurately reflects all work, treatment, procedures, and medical decision making performed by me. Departure Information Dispostion Being Evaluated By Hospitalist Referrals [place] ([place]P) Patient Instructions My [facility] Health Problem Qualifiers
[2017-06-17 16:35] LABS: URINE APPEARANCE CLEAR (CLEAR); URINE BILIRUBIN NEG (NEG); URINE COLOR DK YELLOW; URINE EPITHELIAL CELL AUTO 0-5 /lpf (0-5); URINE NITRITE NEG (NEG); URINE PH 6.5 (4.5-7.5); URINE SPECIFIC GRAVITY 1.011 (1.000-1.030); UROBILINOGEN NEG (NEG)
[2017-06-17 16:46] LABS: BASO % 0.9 %; BASO ABS # 0.05 K/uL (0-0.2); COMPLETE YES; EOS % 5.2 %; HEMATOCRIT 26.6 % (42-52); IG% 0.6 %; MEAN CELL VOLUME 89.6 fL (80-100); MEAN CORPUSCULAR HGB CONC 34.6 g/dl (32-36); MEAN PLATELET VOLUME 9.9 fL (7.4-10.4); NEUT % 66.3 %; PLATELET COUNT 154 K/uL (130-400); RED BLOOD COUNT 2.97 M/uL (4.7-6.1); WHITE BLOOD COUNT 5.35 K/uL (4.8-10.8)
[2017-06-17 16:50] LABS: MANUAL MICROSCOPIC REQUIRED? NO; REVIEW REQ? NO
[2017-06-17 17:12] LABS: BUN/CREATININE RATIO 11.5 (10-20); CALCIUM 6.8 mg/dl (8.5-10.1); CREATININE 0.97 mg/dl (0.60-1.40); MAGNESIUM 1.5 mg/dl (1.8-2.4)
[2017-06-17] MEDS ORDERED: POTASSIUM CHLORIDE 10 MEQ / 100ML WTR IV STA (17:12)
[2017-06-17] MEDS ORDERED: SODIUM CHLORIDE 0.9% 1000ML 1,000 ML IV STA (17:12)
[2017-06-17 17:13] LABS: POTASSIUM 2.3 mmol/L (3.5-5.1)
[2017-06-17 17:51] LABS: INR 1.4 (0.9-1.1); PARTIAL THROMBOPLASTIN RATIO 1.5; PROTHROMBIN TIME (PATIENT) 15.1 SECONDS (9.0-12.0)
[2017-06-17] MEDS ORDERED: SODIUM CHLORIDE 0.9% 500ML 500 ML IV STA (18:05)
[2017-06-17] MEDS ORDERED: ACETAMINOPHEN 500 MG TAB PO PRN (19:00)
[2017-06-17] MEDS ORDERED: ALBUTEROL HFA 8 GM INHALER INH PRN (19:15)
[2017-06-17 20:18] VITALS: O2SAT 96
[2017-06-17] MEDS ORDERED: POTASSIUM CHLR 20 MEQ / WTR 20 MEQ in PREMIXED WATER 100 ML IV STA (20:22)
[2017-06-17 20:39] VITALS: BP 107/70; PULSE 79; TEMP 36.5; Ht 170.2 cm; Wt 96.0 kg
[2017-06-17] MEDS: MAGNESIUM SULFATE 1GM / D5W 1 GM in PREMIXED IN D5W 100 ML IV SCH ×3 (20:46→22:26)
[2017-06-17] MEDS: CEFTRIAXONE SOD INJ 2000 MG in DEXTROSE 5% 50ML IV SCH (20:52)
[2017-06-17] MEDS: INSULIN ASPART 100 UNITS/ML 3 ML PEN SC SCH (21:00)
[2017-06-17] MEDS ORDERED: CEFTRIAXONE SOD 1 GM VIAL IV SCH (21:00)
[2017-06-17] MEDS: LEVALBUTEROL 1.25MG/3ML NEB INH SCH (21:00)
[2017-06-17] MEDS ORDERED: LACTULOSE SYRUP 20 GM/30 ML UDC PO SCH (21:00)
[2017-06-17] MEDS ORDERED: HEPARIN SOD 5000 UNIT/0.5 ML CARP SQ SCH (21:00)
[2017-06-17] MEDS: QUETIAPINE FUMARATE 25 MG TAB PO SCH (21:06)
[2017-06-17] MEDS: PENTOXIFYLLINE 400MG EXT REL TAB PO SCH (21:07)
[2017-06-17] MEDS: RIFAMPIN 300 MG CAP PO SCH (21:07)
[2017-06-17] MEDS: SIMVASTATIN 20 MG TAB PO SCH (21:07)
[2017-06-17] MEDS: PROPRANOLOL HCL 20 MG TAB PO SCH (21:07)
[2017-06-17] MEDS: RIFAXIMIN TAB 550 MG TAB PO SCH (21:07)
[2017-06-17] MEDS: LACTULOSE SYRUP 10 GM/15 ML BTL 473 ML PO SCH (21:10)
[2017-06-18] VITALS (15 sets, daily range): BP systolic 90–106; BP diastolic 50–68; PULSE 71–91; TEMP 36.4–36.9; O2SAT 92–99
--- NOTE | 2017-06-18 00:30 | History and Physical ---
History & Physical Date of Service Jun 17, 2017. History & Physical ADMISSION DATE: 06/17/2017 CHIEF COMPLAINT: 62-year-old male admitted from [facility] with multiple problems including mental status changes, jaundice, diffuse edema, multiple electrolyte abnormalities including severe hypokalemia and hypomagnesemia. PRESENT ILLNESS: His medical history is quite extensive including sarcoidosis with pulmonary and extrapulmonary manifestations has been on chronic prednisone therapy. He is also diabetic. Was on insulin until recently. Arterial hypertension, obstructive sleep apnea, cirrhosis of the liver, history of atrial septal defect which was repaired in 2014 at the [facility]. He also has liver cirrhosis. He did present with hepatic encephalopathy.In February of this year he had a large herniated L4-L5 disc with severe compromise of the exiting L5 nerve root. He had surgery. Postoperatively he had multiple complications including epidural abscess, Staphylococcus sepsis, CSF leak, required multiple interventions. He had loosening of the hardware which had to be removed. But he still has a spacer and a screen in place. At one time postoperatively he had problem with urinary retention, urinary tract infection with Klebsiella as the offending -organism. He also had Klebsiella sepsis. On 05/19/2017 he was found to have severe compression fracture of L4. He was also suspected to have an abscess. He had ongoing infection in spite of the continued IV antibiotic treatment. He was transferred to [facility]. He had 2 additional intervention. One to repair a large CSF leak and the other one for debridement of the abscess area. It is anticipated that patient will need more extensive surgery with anterior approach and this is planned for some time in the future. In the meantime he was transferred to [facility]. [facility]. Actually he was doing well at that time. He was awake and alert and conversant. He was complaining of weakness in his legs. He was receiving his IV antibiotics. He was undergoing therapies. I did go back to [facility] this morning. His condition has dramatically changed. He was very lethargic. He did not answer me appropriately. He was jaundiced. He was markedly edematous. I asked the nursing supervisor mending to contact the on-call physician. Patient was subsequently transferred to the emergency room. On 06/16/2017 he had blood test done. His sodium was 136, potassium 2.6, chloride 101, CO2 25, BUN 14, creatinine 1.0, glucose 77, potassium 7.2, total bilirubin 4.3, AST 28, ALT 18, alkaline phosphatase 301, total protein 4.7, albumin 1.4, globulin 3.3, the albumin less than 3, TSH 2.64. I saw the patient in the emergency room after he was already evaluated by Dr. Harman. He was already receiving IV fluid and supplemental potassium chloride. Arrangements were made for admission. PAST MEDICAL HISTORY: * herniated L4-L5 disc with compromise of the exiting L5 nerve root requiring surgery on 03/16/2017. * Multiple postoperative complications with epidural abscess secondary to Staphylococcus, Staphylococcus sepsis, CSF leak, loosening of the hardware, had 2 additional interventions. Subsequently transferred to [facility]. He had 2 additional surgeries. Anticipating major surgery with ventral approach for debridement of the lumbar spine abscess. He continues to be on IV antibiotics. Currently on Rocephin 2 g IV every 12 hours and also rifampin 300 mg twice a day. He does have a PICC line in place * Prior hospitalization with Klebsiella urosepsis. * Sarcoidosis with pulmonary and extrapulmonary manifestations. He has been evaluated in multiple Medical Center's. Currently he goes to the [facility]. He is on chronic prednisone. He had multiple other medications in the past. * Atrial septal defect discovered when he was evaluated at the [facility]. He underwent patch repair in 2014. * During his hospitalization at that time he presented with Staphylococcus sepsis he had a transesophageal echocardiogram and a patch was intact. * Obstructive sleep apnea diagnosed in 2005. He does use his CPAP. * Tonsillectomy in childhood * Left knee torn meniscus requiring surgery in 1996 * Left inguinal hernia repair in 1996 * Carpal tunnel release in the remote past * Environmental allergies * Type 2 diabetes mellitus. Initially steroid induced. * Episode of GI bleed with a hemoglobin down to 7 g. He did require hospitalization and transfusion. He had upper and lower endoscopies. The source of bleeding was not identified. * Arterial hypertension * History of bilateral cataract surgery * History of thrombocytopenia thought to be related to his liver disease and splenomegaly. Prior to his disc surgery he did require platelet transfusion. His prothrombin time was also prolonged and he did require fresh frozen plasma. SOCIAL HISTORY: He is . Has one daughter. No history of any smoking. He did have excessive alcohol intake. 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 He is retired. He is on disability because of his pulmonary disease. 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 After shelter he was volunteering with multiple organizations. FAMILY HISTORY: His father age 76 was diabetic and had heart disease. His mother at age 84 of natural cause. He has 2 sisters alive and well. His daughter was recently treated for breast cancer. ALLERGIES: * penicillin * Celebrex CURRENT MEDICATIONS: * : As noted on his admission laboratory tests according to the [facility]. REVIEW OF SYSTEMS: At this time he seemed to be much more awake and alert compared to his condition this morning. He denied any headache or dizziness or lightheadedness. Denies any chest pain. No shortness of breath. No abdominal pain. His abdomen is distended. He does have ascites. He does have lower back pain. He has diffuse edema in his lower legs. Clear fluid is seeping from multiple areas on his legs. PHYSICAL EXAMINATION: GENERAL : Well developed. Chronically ill. His recorded weight is 92.8 kg, height 170.2 cm, BMI 32. VITAL SIGNS ; Blood Pressure : on arrived to the emergency room he was hypotensive with a blood pressure of 88/61. His blood pressure did gradually improve.Pulse : 79 Temperature :36.3, respirations 14, oxygen saturation 96% on room air SKIN : Warm and dry. No rash.Markedly jaundiced HEENT :Conjunctival icterus. No mucosal abnormalities. NECK : Supple. No adenopathy. No thyromegaly. No JVD. Normal carotid pulses. No carotid bruit. CHEST : Normal HEART: Regular heart tones with 2/6 systolic murmur. No rub no gallop. LUNGS: Clear. Normal breath sounds. ABDOMEN: Distended. Evidence of ascites. Difficult to appreciate any organomegaly. Edematous. BACK: Surgical dressing lower back EXTREMITIES: Severe edema of the entire legs. No clubbing no cyanosis. Clear fluid seepage from multiple areas of his lower legs. Good pulses. NEUROLOGICAL EXAMINATION: He is much more awake and alert and responsive. He does have severe weakness of both legs. GENITALIA: He does have edema of the scrotum and the penis. LABORATORY TEST; WBC count 5350, hemoglobin 9.2, hematocrit 26.6, platelet count 154,000. Prothrombin time 15.1, INR 1.4, PTT 39.1. Sodium 136, potassium 2.3, chloride 98, CO2 30, BUN 11, creatinine 0.97, glucose 83, potassium 6.8, magnesium 1.5, phosphorus 2.9, total bilirubin 4.8, AST 27, ALT 19, alkaline phosphatase 348, ammonia level less than 10, total protein 4.9, albumin 1.4, lipase 447. Urinalysis showed 2+ blood. 10-30 rbc's. Electrocardiogram showed a normal sinus rhythm. No acute changes. ASSESSMENT: * mental status changes * Severe hypokalemia * Hypomagnesemia * Liver cirrhosis * Diffuse edema * Malnutrition * Lumbar spinal abscess. Initially presented with a herniated L4-L5 disc. He had surgery. He had multiple complications afterwards.with epidural abscess, CSF leak, loosening of the hardware. * Sarcoidosis * Sleep apnea * Type 2 diabetes mellitus * Atrial septal defect which was repaired in 2014 PLAN: Patient was admitted to the PCU with telemetry. Resuscitation level I. all his laboratory tests were ordered. Cultures were ordered. He was continued on the same antibiotic regimen prescribed at [facility]. Will correct his potassium and magnesium. Will monitor his liver chemistries. Dietary consultation was requested. Need to work on protein supplementation. Wound care consultation was requested. He was tentatively scheduled to go back to [facility] next week to have the ricardo removed. It is anticipated that the patient will need a major surgery to take care of the infected area and his lumbar spine and to remove that his visual material. I spoke with the patient, his , his sister and a niece who were all with him in the emergency room.
[2017-06-18] MEDS ORDERED: POTASSIUM CHLR 20 MEQ / WTR 20 MEQ in PREMIXED WATER 100 ML IV ONE ×6 (02:00→22:00)
[2017-06-18 05:49] LABS: BASO % 1.5 %; BASO ABS # 0.09 K/uL (0-0.2); EOS % 17.9 %; HEMATOCRIT 24.6 % (42-52); LYMPH % 10.7 %; LYMPH ABS # 0.65 K/uL (1.2-3.4); MEAN CELL VOLUME 88.8 fL (80-100); MEAN PLATELET VOLUME 9.8 fL (7.4-10.4); MONO % 21.2 %; NEUT % 47.7 %; PLATELET COUNT 138 K/uL (130-400); RED BLOOD COUNT 2.77 M/uL (4.7-6.1); WHITE BLOOD COUNT 6.08 K/uL (4.8-10.8)
[2017-06-18 06:18] LABS: COMPLETE YES; GIANT PLATELETS 1+; TOXIC GRANULATION 1+
[2017-06-18 06:32] LABS: ALB/GLOB RATIO 0.5 (0.9-2); BUN/CREATININE RATIO 12.7 (10-20); CALCIUM 6.5 mg/dl (8.5-10.1); CREATININE 0.92 mg/dl (0.60-1.40); MAGNESIUM 1.8 mg/dl (1.8-2.4); POTASSIUM 2.3 mmol/L (3.5-5.1)
[2017-06-18] MEDS: INSULIN ASPART 100 UNITS/ML 3 ML PEN SC SCH ×4 (07:00→20:29)
[2017-06-18] MEDS: LEVALBUTEROL 1.25MG/3ML NEB INH SCH ×3 (07:10→19:10)
[2017-06-18] MEDS ORDERED: ONDANSETRON INJ 2 MG/ML 2 ML VIAL ONE ×2 (08:13→08:17)
[2017-06-18] MEDS ORDERED: NURSING VERBAL MED ORDER ONE (08:30)
[2017-06-18] MEDS: FLUTICASONE PROPIONATE NA SPR 16 GM BTL NAE SCH (08:37)
[2017-06-18] MEDS: PROPRANOLOL HCL 20 MG TAB PO SCH ×2 (09:00→20:23)
[2017-06-18] MEDS: CEFTRIAXONE SOD INJ 2000 MG in DEXTROSE 5% 50ML IV SCH ×2 (09:17→20:30)
[2017-06-18] MEDS: LACTULOSE SYRUP 10 GM/15 ML BTL 473 ML PO SCH ×3 (09:18→20:20)
[2017-06-18] MEDS: RIFAMPIN 300 MG CAP PO SCH ×2 (09:18→20:23)
[2017-06-18] MEDS: PENTOXIFYLLINE 400MG EXT REL TAB PO SCH ×3 (09:19→15:43)
[2017-06-18] MEDS: SPIRONOLACTONE 25 MG TAB PO SCH (09:20)
[2017-06-18] MEDS: RIFAXIMIN TAB 550 MG TAB PO SCH ×2 (09:22→20:23)
[2017-06-18 18:00] LABS: BUN/CREATININE RATIO 10.8 (10-20); CALCIUM 6.8 mg/dl (8.5-10.1); CREATININE 1.1 mg/dl (0.60-1.40); POTASSIUM 3.2 mmol/L (3.5-5.1)
--- NOTE | 2017-06-18 18:21 | Progress Note ---
Progress Note Date of Service Jun 18, 2017. Progress Note 62-year-old [facility] including: * mental status changes * Severe hypokalemia * Hypomagnesemia * Poor nutritional status with an albumin of 1.4 * Liver cirrhosis * Diffuse edema * History of surgery for a herniated L4-L5 disc with severe complications since then including epidural abscess, suspected abscess at the L4 level, loosening of the hardware, CSF leak, * Sleep apnea * Type 2 diabetes mellitus * Atrial septal defect which was repaired in 2014 His mental status has improved. He denied any headache or dizziness or lightheadedness. Denies any chest pain. No shortness of breath. He is complaining of nausea. Most likely related to the medications he is taking by mouth. No vomiting. No problem with his bowel movements. No problem urinating. He does have pain in his back. Weakness in his lower extremities. EXAMINATION: GENERAL : Well developed. Well nourished. No acute distress.Feeling very weak. VITAL SIGNS ; Blood Pressure : 96/65 Pulse :81 Temperature :36.5 Respiration 20 oxygen saturation 97% on room air SKIN: Jaundiced HEENT :Scleral icterus. No mucosal abnormalities. NECK : Supple. No adenopathy. No thyromegaly. No JVD. Normal carotid pulses. HEART: Regular heart tones with 2/6 systolic murmur. No rub no gallop. LUNGS: Clear. Normal breath sounds. ABDOMEN: Soft nontender. Good bowel sounds. BACK: No spine or CVA tenderness.Surgical dressing in lumbar area EXTREMITIES: Persistent bilateral leg edema. The edema extends to the upper thighs and hip area. It is improved compared to yesterday.PICC line right arm LABORATORY TESTS: WBC count 6000 an AP, hemoglobin 8.6, hematocrit 24.6, platelet count 138,000. Sodium 137, potassium 2.3, chloride 100, CO2 30, BUN 12, creatinine 0.92, glucose 79, potassium 6.5, magnesium 1.8, total bilirubin 4.1, AST 25, ALT 17, alkaline phosphatase 330, total protein 4.4, albumin 1.4, globulin 3.0. ASSESSMENT: * mental status changes. Improved * Severe hypokalemia * Bilateral leg weakness * Status post surgery for herniated L4-L5 disc with multiple postoperative complications requiring multiple interventions * Type 2 diabetes mellitus * Liver cirrhosis * Sarcoidosis * Sleep apnea * General weakness PLAN: * continue all his medications including his antibiotics * Potassium supplementation * Physical and occupational therapy * Dietary consultation has been requested * Will coordinate his next visit to [facility] which was scheduled for next week.
[2017-06-18] MEDS: BOOST GLUCOSE CONTROL PO SCH (20:20)
[2017-06-18] MEDS: QUETIAPINE FUMARATE 25 MG TAB PO SCH (20:22)
[2017-06-18] MEDS: SIMVASTATIN 20 MG TAB PO SCH (20:23)
[2017-06-18] MEDS: OXYCODONE HCL IR 5 MG TAB (IMMEDIATE RELEASE) PO PRN (21:10)
[2017-06-19] VITALS (9 sets, daily range): BP systolic 94–107; BP diastolic 57–71; PULSE 81–90; TEMP 36.8–37.2; O2SAT 93–98
[2017-06-19 05:43] LABS: BASO % 1.3 %; BASO ABS # 0.08 K/uL (0-0.2); EOS % 17.1 %; HEMATOCRIT 25.7 % (42-52); LYMPH % 13.6 %; LYMPH ABS # 0.82 K/uL (1.2-3.4); MEAN CELL VOLUME 89.9 fL (80-100); MEAN CORPUSCULAR HEMOGLOBIN 30.8 pg (25-34); MEAN CORPUSCULAR HGB CONC 34.2 g/dl (32-36); MEAN PLATELET VOLUME 10.1 fL (7.4-10.4); PLATELET COUNT 140 K/uL (130-400); RED BLOOD COUNT 2.86 M/uL (4.7-6.1); WHITE BLOOD COUNT 6.01 K/uL (4.8-10.8)
[2017-06-19 06:12] LABS: BUN/CREATININE RATIO 14.1 (10-20); CALCIUM 6.8 mg/dl (8.5-10.1); CREATININE 0.87 mg/dl (0.60-1.40); MAGNESIUM 1.8 mg/dl (1.8-2.4)
[2017-06-19 06:14] LABS: ALB/GLOB RATIO 0.5 (0.9-2)
[2017-06-19] MEDS: INSULIN ASPART 100 UNITS/ML 3 ML PEN SC SCH ×4 (07:00→21:02)
[2017-06-19 07:10] LABS: ANISOCYTOSIS PRESENT; COMPLETE YES
[2017-06-19] MEDS: LEVALBUTEROL 1.25MG/3ML NEB INH SCH ×3 (07:10→19:44)
[2017-06-19] MEDS ORDERED: POTASSIUM CHLR 20 MEQ / WTR 20 MEQ in PREMIXED WATER 100 ML IV SCH ×2 (07:45→11:00)
[2017-06-19] MEDS: FLUTICASONE PROPIONATE NA SPR 16 GM BTL NAE SCH (08:30)
[2017-06-19] MEDS: PENTOXIFYLLINE 400MG EXT REL TAB PO SCH ×3 (08:30→17:47)
[2017-06-19] MEDS: SPIRONOLACTONE 25 MG TAB PO SCH (08:31)
[2017-06-19] MEDS: LACTULOSE SYRUP 10 GM/15 ML BTL 473 ML PO SCH ×3 (08:31→21:00)
[2017-06-19] MEDS: RIFAXIMIN TAB 550 MG TAB PO SCH ×2 (08:32→20:59)
[2017-06-19] MEDS: BOOST GLUCOSE CONTROL PO SCH ×3 (08:32→21:00)
[2017-06-19] MEDS: PROPRANOLOL HCL 20 MG TAB PO SCH ×2 (08:32→20:59)
[2017-06-19] MEDS: RIFAMPIN 300 MG CAP PO SCH ×2 (08:32→20:59)
[2017-06-19] MEDS: CEFTRIAXONE SOD INJ 2000 MG in DEXTROSE 5% 50ML IV SCH ×2 (08:37→21:00)
--- NOTE | 2017-06-19 09:28 | Clinical Documentation Query ---
[facility] : CLINICAL DOCUMENTATION QUERIES QUERY 1 OF 2 Documentation includes "mental status changes". In the setting of recurrent infection (including current antibiotics), severe electrolyte derangements, and liver cirrhosis, consider documentation as suggested below as an alteration in mental status represents only a symptom, not a clinical diagnosis, which lacks the severity of illness and associated risk of mortality. In your clinical opinion is this patient being managed for: (x ) Metabolic encephalopathy ( ) Other explanation of clinical findings (Please Explain) ( ) Unable to determine (Please Define) ( ) Need to Discuss ( ) Not Agree The medical record reflects the following clinical findings, treatment, and risk factors. Clinical Indicators: As above Treatment: Electrolyte repletion, antibiotics, labs Risk Factors: Recurrent infections, electrolyte derangement, cirrhosis of the liver QUERY 2 OF 2 Documentation includes "malnutrition", not otherwise specified. Serum albumin noted to be 1.4 g/dl. He has cirrhosis of the liver. [employer] has been consulted. PT/OT have been consulted. [employer] documentation included "Wt Hx is consistent w/a 13.9 kg (13%) wt loss in 3 months which is significant." He has bilateral edema of the legs and feet with draining fluid In your clinical opinion is this patient being managed for: ( x ) Severe protein-calorie malnutrition ( ) Other explanation of clinical findings (Please Explain) ( ) Unable to determine (Please Define) ( ) Need to Discuss ( ) Not Agree The medical record reflects the following clinical findings, treatment, and risk factors. Clinical Indicators:decreased appetite, multiple hospitalizations/surgeries, acute illness, wt loss of 13% in 3 months, <50% of EEE for >5 days, skin breakdown Treatment: [employer] consult, Boost supplements, serial chemistries, high protein snacks from kitchen BID, daily weights, I/O, skin care and precautions. Risk Factors: Frequent hospitalizations, nausea, illness Please clarify and document your clinical opinion in the progress notes and discharge summary. Terms such as "probable", "suspected", "likely", "questionable", "possible", or "still to be ruled out" are acceptable. IF IN AGREEMENT, YOU MUST DOCUMENT ABOVE DIAGNOSTIC STATEMENT IN DAILY PROGRESS NOTES AND DISCHARGE SUMMARY. This document is not part of the patient's record. Thank You, Fabio Carrera, RN [phone]
[2017-06-19] MEDS: ONDANSETRON INJ 8 MG in DEXTROSE 5% 50ML 50 ML IV PRN (16:59)
[2017-06-19 17:51] LABS: BUN/CREATININE RATIO 12.7 (10-20); CALCIUM 7.2 mg/dl (8.5-10.1); CREATININE 0.89 mg/dl (0.60-1.40); POTASSIUM 3.9 mmol/L (3.5-5.1)
--- NOTE | 2017-06-19 18:41 | Progress Note ---
Progress Note Date of Service Jun 19, 2017. Progress Note 62-year-old male admitted from [facility]. Problems include: * Mental status changes consistent with metabolic encephalopathy * Severe hypokalemia * Hypomagnesemia * Cirrhosis of the liver * Malnutrition * Lumbar spinal abscess. He is status post surgery for L4-L5 disc. Had multiple complications with infection and CSF leak. He has had multiple additional procedures here at [facility] and also at [facility] * Sarcoidosis * Type 2 diabetes mellitus * Sleep apnea * Atrial septal defect which was repaired in 2014 at the [facility] Patient was admitted. Cultures were done. His potassium was supplemented with IV potassium chloride. His magnesium was corrected. Dietary consultation was requested. He had severe edema of both legs and he was seeping clear liquid. He continues to complain mostly of nausea. He did has had some vomiting. I think is all related to the oral antibiotics that he is receiving. He denied any headache no dizziness no lightheadedness. No chest pain no shortness of breath. He does have some nonspecific abdominal discomfort. His back pain is under control. He still has ricardo in place. No problem with his bowel movements. No problem urinating. Examination Well-developed in no distress. He does have persistent jaundice but slightly decreased Vital signs: Blood pressure 97/61, pulse 83, respiration 20, temperature 37.2, oxygen saturation 94% on room air. Skin is warm and dry. Jaundiced. HEENT: Icteric sclera. Neck is supple without lymph node or thyroid enlargement. No JVD. Heart regular heart sounds with 2/6 systolic murmur Lungs are clear Abdomen is soft nontender. Good bowel sounds. Back he still has the ricardo in place. His incision looks fine. No evidence of any inflammation. Extremities persistent edema but markedly improved. From a neurological standpoint he is awake and alert. Appropriate. Still complaining of weakness in his legs. Laboratory tests: WBC count 6010, hemoglobin 8.8, hematocrit 25.7, platelet count 140,000. Sodium 137, potassium 3.0, glucose chloride 101, CO2 29, BUN 12, creatinine 0.87 , glucose 98, calcium 6.8, magnesium 1.8, total bilirubin 3.7, AST 23, AST 17, alkaline phosphatase 335, total protein 4.5, albumin 1.4, Assessment: * Metabolic encephalopathy * Status post multiple surgical intervention for his herniated L4-L5 disc followed by multiple postoperative complications including infection site epidural abscess spinal infection CSF leak * Sarcoidosis * Type 2 diabetes mellitus * Sleep apnea * Hypokalemia * Malnutrition Plan: * Potassium supplementation for correction * Continue all his other medications * Physical and occupational therapy * Depending on his condition and will decide on which facility to go to. He has been at [facility], [facility]. His preference for rehabilitation at this point is [facility]. * Continuing his antibiotics unchanged * His blood cultures remain negative
[2017-06-19] MEDS ORDERED: NURSING VERBAL MED ORDER ONE (19:30)
[2017-06-19] MEDS ORDERED: PROMETHAZINE HCL INJ 12.5 MG in SODIUM CHLORIDE 0.9% 50ML 50 ML IV ONE (19:45)
[2017-06-19] MEDS: QUETIAPINE FUMARATE 25 MG TAB PO SCH (20:59)
[2017-06-19] MEDS: OXYCODONE HCL IR 5 MG TAB (IMMEDIATE RELEASE) PO PRN (20:59)
[2017-06-19] MEDS: SIMVASTATIN 20 MG TAB PO SCH (21:00)
[2017-06-20] VITALS (7 sets, daily range): BP systolic 90–116; BP diastolic 56–75; PULSE 77–86; TEMP 36.5–37; O2SAT 93–100
[2017-06-20] MEDS: OXYCODONE HCL IR 5 MG TAB (IMMEDIATE RELEASE) PO PRN ×2 (02:11→19:36)
[2017-06-20 04:33] LABS: MEAN CELL VOLUME 90.3 fL (80-100); MEAN CORPUSCULAR HEMOGLOBIN 31.3 pg (25-34); MEAN CORPUSCULAR HGB CONC 34.6 g/dl (32-36); MEAN PLATELET VOLUME 9.8 fL (7.4-10.4); PLATELET COUNT 133 K/uL (130-400); RED BLOOD COUNT 2.88 M/uL (4.7-6.1); WHITE BLOOD COUNT 7.28 K/uL (4.8-10.8)
[2017-06-20] MEDS: ONDANSETRON INJ 8 MG in DEXTROSE 5% 50ML 50 ML IV PRN (04:36)
[2017-06-20 05:00] LABS: ALB/GLOB RATIO 0.5 (0.9-2); BUN/CREATININE RATIO 13.2 (10-20); CALCIUM 7.3 mg/dl (8.5-10.1); CREATININE 0.8 mg/dl (0.60-1.40); MAGNESIUM 1.9 mg/dl (1.8-2.4); POTASSIUM 3.3 mmol/L (3.5-5.1)
[2017-06-20 05:41] LABS: BASO ABS # 0.12 K/uL (0-0.2); BASOPHIL % 1.7 % (0-2); COMPLETE YES; ECHINOCYTES 1+; EOSINOPHIL % 24.3 %; LYMPH ABS # 0.76 K/uL (1.2-3.4); LYMPHOCYTE % 10.4 %; NEUTROPHILS % 58.4 %; POLYCHROMASIA 1+; TOXIC GRANULATION 1+
[2017-06-20] MEDS: LEVALBUTEROL 1.25MG/3ML NEB INH SCH ×3 (07:17→18:57)
[2017-06-20] MEDS: FLUTICASONE PROPIONATE NA SPR 16 GM BTL NAE SCH (07:39)
[2017-06-20] MEDS: PENTOXIFYLLINE 400MG EXT REL TAB PO SCH ×4 (07:40→22:18)
[2017-06-20] MEDS: PROPRANOLOL HCL 20 MG TAB PO SCH ×2 (07:40→21:00)
[2017-06-20] MEDS: RIFAMPIN 300 MG CAP PO SCH ×2 (07:40→22:17)
[2017-06-20] MEDS: RIFAXIMIN TAB 550 MG TAB PO SCH ×2 (07:40→22:16)
[2017-06-20] MEDS: SPIRONOLACTONE 25 MG TAB PO SCH (07:41)
[2017-06-20] MEDS: POTASSIUM CHLR 10 MEQ / WTR 10 MEQ in PREMIXED WATER 100 ML IV SCH ×4 (07:55→15:37)
[2017-06-20] MEDS: BOOST GLUCOSE CONTROL PO SCH ×3 (07:57→21:00)
[2017-06-20] MEDS: LACTULOSE SYRUP 10 GM/15 ML BTL 473 ML PO SCH ×3 (08:30→21:00)
[2017-06-20] MEDS: INSULIN ASPART 100 UNITS/ML 3 ML PEN SC SCH ×4 (09:07→21:00)
[2017-06-20] MEDS: PROMETHAZINE HCL INJ 12.5 MG in SODIUM CHLORIDE 0.9% 50ML 50 ML IV PRN ×2 (10:14→17:26)
[2017-06-20] MEDS: CEFTRIAXONE SOD INJ 2000 MG in DEXTROSE 5% 50ML IV SCH ×2 (11:01→22:15)
[2017-06-20 17:58] LABS: BUN/CREATININE RATIO 12.7 (10-20); CALCIUM 7.4 mg/dl (8.5-10.1); CREATININE 0.88 mg/dl (0.60-1.40)
[2017-06-20] MEDS: QUETIAPINE FUMARATE 25 MG TAB PO SCH (22:16)
[2017-06-20] MEDS: SIMVASTATIN 20 MG TAB PO SCH (22:18)
[2017-06-20] MEDS ORDERED: POTASSIUM CHLR 20 MEQ / WTR 20 MEQ in PREMIXED WATER 100 ML IV STA (22:37)
--- NOTE | 2017-06-20 22:44 | Progress Note ---
Progress Note Date of Service Jun 20, 2017. Progress Note 62-year-old male admitted from [facility]. His medical problems are extensive including: * mental status changes with metabolic encephalopathy * Cirrhosis of the liver * Severe hypokalemia * Hypomagnesemia * Malnutrition with an albumin level of 1.4 * Status post surgery for herniated L4-L5 disc with multiple complications including epidural abscess osteomyelitis loosening of the hardware recurrent CSF leak has required multiple interventions. He is now scheduled to undergo a major intervention at [facility] on 06/22/2017 * Sarcoidosis * Chronic steroid therapy * Type 2 diabetes mellitus * Sleep apnea * History of atrial septal defect which was repaired with a patch at the [facility] in 2014 His condition definitely improved. His mental status is back to his baseline. He continues to complain of feeling tired and weak. Poor appetite. Recurrent nausea. Denied any headache. No dizziness. No chest pain. No shortness of breath. Abdominal discomfort. Nonspecific. Having bowel movements. No problem urinating. Continues to complain of pain in his back. His leg edema has decreased. EXAMINATION: General : Well developed. No distress. Vital Signs : Blood [id number], pulse 81, respiration 20, temperature 36.9, oxygen saturation 98% on room air Skin is warm and dry. Jaundiced. HEENT :Scleral icterus Neck is supple. No tenderness. No adenopathy no thyromegaly. No JVD. Heart regular heart sounds with 2/6 systolic murmur Lungs are clear Abdomen is soft. No localized tenderness. No guarding no rebound. Good bowel sounds. Back surgical scar lumbar area. Esteban in place. Extremities bilateral leg edema. Improved. No clubbing no cyanosis. No seepage of any fluid Genitalia he does have minimal scrotal and edema of the penis LABORATORY TESTS: WBC count 7280, hemoglobin 9, hematocrit 26, platelet count 133,000. Sodium 134 , potassium 3.3, chloride 100, CO2 27, BUN 11, creatinine 0.8, glucose 123, calcium 7.3, magnesium 1.9, total bilirubin 3.6, AST 25, ALT 17, alkaline phosphatase 381, total protein 4.8, albumin 1.5. ASSESSMENT : * Mental status changes with encephalopathy. * Hypokalemia * Hypomagnesemia * Lumbar spinal infection post surgery. Loosening of the hardware which was removed. Fractured L4. * Type 2 diabetes mellitus * Sarcoidosis * Atrial septal defect status post repair in 2014 * Sleep apnea * Generalized weakness * Persistent nausea * Malnutrition PLAN: * Continue the same medications and IVs * I did change him from Zofran to Phenergan IV for his nausea. Seems to be more effective for him * Arrangements are being made for transfer care to [facility] tomorrow with anticipated surgery on 06/22/2017. I did speak with today. Arrangements were made with admissions for transfer there tomorrow. Patient would be transferred with S by ambulance * I spoke with the patient and his .
[2017-06-21] VITALS (8 sets, daily range): BP systolic 93–112; BP diastolic 60–71; PULSE 67–91; TEMP 37–37.2; O2SAT 95–98
[2017-06-21] MEDS: PROMETHAZINE HCL INJ 12.5 MG in SODIUM CHLORIDE 0.9% 50ML 50 ML IV PRN ×3 (00:41→16:51)
[2017-06-21] MEDS: OXYCODONE HCL IR 5 MG TAB (IMMEDIATE RELEASE) PO PRN ×2 (02:15→18:57)
[2017-06-21 05:51] LABS: BASO % 1.3 %; BASO ABS # 0.08 K/uL (0-0.2); EOS % 12.6 %; HEMATOCRIT 25.4 % (42-52); IG% 2.3 %; LYMPH % 12.6 %; LYMPH ABS # 0.77 K/uL (1.2-3.4); MEAN CORPUSCULAR HEMOGLOBIN 30.5 pg (25-34); MEAN CORPUSCULAR HGB CONC 33.5 g/dl (32-36); MONO % 15.7 %; NEUT % 55.5 %; PLATELET COUNT 105 K/uL (130-400); RED BLOOD COUNT 2.79 M/uL (4.7-6.1)
[2017-06-21 06:32] LABS: ALB/GLOB RATIO 0.5 (0.9-2); BUN/CREATININE RATIO 12.4 (10-20); CALCIUM 7.3 mg/dl (8.5-10.1); CREATININE 0.79 mg/dl (0.60-1.40); MAGNESIUM 1.9 mg/dl (1.8-2.4); POTASSIUM 3.8 mmol/L (3.5-5.1)
[2017-06-21 06:49] LABS: COMPLETE YES; OVALOCYTES 1+; TOXIC GRANULATION 2+; VACUOLIZATION 1+
[2017-06-21] MEDS: LEVALBUTEROL 1.25MG/3ML NEB INH SCH ×3 (07:09→19:10)
[2017-06-21] MEDS: CEFTRIAXONE SOD INJ 2000 MG in DEXTROSE 5% 50ML IV SCH ×2 (07:42→20:12)
[2017-06-21] MEDS: BOOST GLUCOSE CONTROL PO SCH ×3 (07:42→20:04)
[2017-06-21] MEDS: INSULIN ASPART 100 UNITS/ML 3 ML PEN SC SCH ×4 (07:42→20:06)
[2017-06-21] MEDS: SPIRONOLACTONE 25 MG TAB PO SCH (07:43)
[2017-06-21] MEDS: FLUTICASONE PROPIONATE NA SPR 16 GM BTL NAE SCH (07:43)
[2017-06-21] MEDS: LACTULOSE SYRUP 10 GM/15 ML BTL 473 ML PO SCH ×3 (07:44→20:04)
[2017-06-21] MEDS: PROPRANOLOL HCL 20 MG TAB PO SCH ×2 (07:44→20:04)
[2017-06-21] MEDS: RIFAMPIN 300 MG CAP PO SCH ×2 (07:45→20:04)
[2017-06-21] MEDS: RIFAXIMIN TAB 550 MG TAB PO SCH ×2 (07:45→20:05)
[2017-06-21] MEDS: PENTOXIFYLLINE 400MG EXT REL TAB PO SCH ×2 (12:08→16:52)
--- NOTE | 2017-06-21 18:38 | Progress Note ---
Progress Note Date of Service Jun 21, 2017. Progress Note 62-year-old male admitted with multiple problems including: * Mental status changes * Metabolic encephalopathy * Liver cirrhosis * Profound hypokalemia * Hypomagnesemia * Status post surgery for L4-L5 disc followed by multiple complications including epidural abscess osteomyelitis loosening of the hardware and fracture of L4. He required multiple surgeries at [facility] and at [facility]. Anticipating surgery tomorrow morning at [facility]. * Sarcoidosis * Type 2 diabetes mellitus * Atrial septal defect which was repaired at the [facility] in 2014 * Generalized weakness * Malnutrition His condition didn't improve. His electrolytes were corrected. His mental status improved. His back pain is under control. He was mostly complaining of nausea. I think this is related to the oral antibiotics is taking. He denied any headache. No dizziness. No neck pain. No chest pain no shortness of breath. No abdominal pain. Nausea. No vomiting. He is on lactulose. He has had multiple bowel movements. EXAMINATION: Well-developed. No acute distress. Jaundiced. Vital signs: Blood pressure 112/70, pulse 91, respiration 20, temperature 37.2, oxygen saturation 96% on room air Skin is warm and dry. Mild jaundice. HEENT scleral icterus. Neck is supple. Nontender. No lymph node or thyroid enlargement. Heart regular heart sounds Lungs are clear Abdomen is soft nontender. Good bowel sounds. Back surgical scar. Equality in place. Extremities persistent edema but much less pronounced. No ulcerations. Genitalia minimal edema of the scrotum and the penis. LABORATORY TESTS: WBC count 6100, hemoglobin 8.5, hematocrit 25.4, platelet count 10 5000. Sodium 135, potassium 3.8, chloride 101, CO2 28, BU and 10, creatinine 0.79, glucose 110, calcium 7.3, magnesium 1.9, total bilirubin 3.1, AST 25, AST 16, alkaline phosphatase 339, total protein 4.5, albumin 1.5 ASSESSMENT: * Metabolic encephalopathy. Resolved. * Profound hypokalemia. Corrected * Hypomagnesemia. Corrected * Liver cirrhosis * Lumbar spinal infection and fractured L4 * Type 2 diabetes mellitus * Sleep apnea * Sarcoidosis * History of ASD which was repaired in 2014 PLAN: * Continue the same medications * Anticipating transfer to [facility] today * Anticipating surgery tomorrow morning * Continue Phenergan for nausea. More effective than Zofran for him.
[2017-06-21] MEDS: SIMVASTATIN 20 MG TAB PO SCH (20:06)
[2017-06-21] MEDS: QUETIAPINE FUMARATE 25 MG TAB PO SCH (20:07)
--- NOTE | 2017-07-01 19:36 | Discharge Summary ---
Discharge Summary Date of Service Jul 01, 2017. Discharge Summary ADMISSION DATE: 06/17/2017 DISCHARGE DATE: 06/21/2017(patient was transferred to [facility]) DISCHARGE DIAGNOSES: * mental status changes * Metabolic encephalopathy * Lumbar spinal abscess. * Status post laminectomy for L4-L5 herniated disc * Epidural abscess requiring surgery * Loosening of the hardware requiring surgery * Severe hypokalemia * Hypomagnesemia * Sarcoidosis with pulmonary and extrapulmonary manifestations * Chronic prednisone therapy * Type 2 diabetes mellitus * Obstructive sleep apnea * Atrial septal defect which was repaired with a patch in 2014 * Liver cirrhosis * Malnutrition DISCHARGE MEDICATIONS: * ceftriaxone 2 g IV every 12 hours * Boost one can 3 times a day * Flonase nasal spray 2 sprays in each nostril daily * Regular insulin coverage according to scale * Lactulose 15 g 3 times a day * Xopenex 1.25 mg- high flow treatment 3 times a day * Trental 400 mg 3 times a day * Propranolol 20 mg twice a day * Prednisone 20 mg daily * Seroquel 25 mg at bedtime * Rifampin 300 mg 2 times a day * Rifaximin 550 mg twice a day * Simvastatin 20 mg daily * Spironolactone 50 mg daily * Tylenol 500 mg every 4 hours as needed * Albuterol inhaler 2 puffs every 4 hours as needed * Promethazine 12.5 mg IV every 4 hours as needed for nausea * Oxycodone IR 5 mg every 4 hours as needed for pain * Heparin flushes for his PICC line 62-year-old male admitted from [facility] with multiple problems including mental status changes, jaundice, diffuse edema, multiple electrolyte abnormalities with severe hypokalemia and hypomagnesemia. Patient with a very complex medical history. In February of this year he underwent surgery for a herniated L4-L5 disc. He had multiple postoperative complications including epidural abscess, loosening of the hardware, fracture of L4, spinal abscess, required multiple interventions both at [facility] and at [facility]. After his last hospitalization at [facility] he was transferred to the intermediate for rehabilitation in anticipation of additional major surgery on his lumbar spine. Patient has been septic.he also had an episode of urosepsis. He has been on IV antibiotics since that time after his surgery in February. His other medical problems include sarcoidosis with pulmonary and extrapulmonary manifestations, type 2 diabetes mellitus, liver cirrhosis, severe malnutrition, sleep apnea. I saw the patient at the intermediate few days prior to his admission and actually he was doing quite well. I went back to see him on the day of admission and there has been significant change in his status. He was very lethargic. His mental status has changed. He was not communicative. Recent blood test at the intermediate showed severe hypokalemia. He has multiple other laboratory abnormalities. Patient was transferred to the emergency room. After evaluation he was admitted for further treatment. PAST MEDICAL HISTORY, SOCIAL HISTORY, FAMILY HISTORY: As noted on admission history and physical ALLERGIES: * penicillin * Celebrex ADMISSION MEDICATIONS: As noted on the home medication list PHYSICAL EXAMINATION AND LABORATORY TESTS ARE NOTED ON ADMISSION HITORY AND PHYSICAL HOSPITAL COURSE: Patient was admitted to PCU with telemetry. Resuscitation level I. All his laboratory tests were ordered. Blood cultures were done. He was continued on the same antibiotics as has been administered at the intermediate including IV Rocephin, oral rifampin. He did require multiple doses of IV potassium chloride. His magnesium was also corrected. Dietary consultation was requested. Wound Care consultation was requested. Patient had severe edema of both legs and had multiple areas with clear fluid seeping. Physical and occupational therapies were ordered. Patient presented with recurrent nausea. I thought it was related to his oral antibiotics. He was initially given Zofran but that was not effective. Phenergan was prescribed and that was more helpful to control his nausea. His appetite remained poor. His albumin level was markedly decreased to 1.4 and 1.5. His electrolytes were corrected. His blood cultures were negative. He remained with generalized weakness. I did speak with Dr. Cameron Birmingham at [facility]. Patient was scheduled to be admitted on 06/22/2017 for his major surgery. Arrangements were completed. Patient was transferred by ambulance with S.
== END 2017-06-21 21:39 | disposition short-term general hospital (02) | DRG 640 ==
LOC: EDBD 15:31 → C.EDC 15:32 → C.2T 19:05 → ENRESERV 19:35 → C.2T 06-18 14:13
PROVIDERS: ADMIT Internal Medicine; ATTEND Internal Medicine
DX: E87.6 Hypokalemia (principal); G93.41 Metabolic encephalopathy; E43 Unspecified severe protein-calorie malnutrition; G06.1 Intraspinal abscess and granuloma; E83.42 Hypomagnesemia; K74.60 Unspecified cirrhosis of liver; R60.9 Edema, unspecified; D86.0 Sarcoidosis of lung; J45.909 Unspecified asthma, uncomplicated; E10.43 Type 1 diabetes mellitus with diabetic autonomic (poly)neuropathy; I10 Essential (primary) hypertension; E78.5 Hyperlipidemia, unspecified; K21.9 Gastro-esophageal reflux disease without esophagitis; G47.33 Obstructive sleep apnea (adult) (pediatric); E66.9 Obesity, unspecified; Z79.899 Other long term (current) drug therapy; Z79.4 Long term (current) use of insulin; Z79.52 Long term (current) use of systemic steroids; Z98.890 Other specified postprocedural states; Z86.19 Personal history of other infectious and parasitic diseases; Z87.440 Personal history of urinary (tract) infections; Z87.74 Personal history of (corrected) congenital malformations of heart and circulatory system; Z68.33 Body mass index [BMI] 33.0-33.9, adult; Z83.3 Family history of diabetes mellitus; Z82.49 Family history of ischemic heart disease and other diseases of the circulatory system; Z80.3 Family history of malignant neoplasm of breast; Y83.8 Other surgical procedures as the cause of abnormal reaction of the patient, or of later complication, without mention of misadventure at the time of the procedure

== ENCOUNTER 2017-07-21 23:34 | Inpatient (IN) | payer BC, OTHER ==
[~2017-07-21] VITALS: Ht 170.2 cm; Wt 84.3 kg
[~2017-07-21 23:34] MED LIST changes: +CEFT1INJ6 IV; -CYCL5TAB PO; -DAPT500I IV; -FLUO40CA8 PO; +FLUT0.15 NAE; -FURO-85 PO; +FURO80TA63 PO; -GABA-113 PO; +MELA3TAB PO; -METO50TA16 PO; -MOME6000 NAE; +NF656 TD; -NXM/40 PO; +OMEP40CA41 PO; +ONDA4TAB46 PO; +OXYC1TAB3 PO; -PRAM1TAB6 PO; -PRED10TA PO; +PRED20TA PO; +PROM25IN13 IV; +PROP20TA67 PO; +QUET1TAB30 PO; +REPA1TAB5 PO; +RIFA300C34 PO; +RIFA550T2 PO; -RXC/5 PO; +SIME80CH40 PO; +SIMV20TA2 PO; +SPIR50TA2 PO; -SPR25 PO; +VNTHFA/IN INH; -[UNRECOGNIZED DRUG - CODE] FLUSH
[2017-07-21] MEDS ORDERED: SODIUM CHLORIDE 0.9% 1000ML 2,000 ML IV STA (23:48)
[2017-07-22] VITALS (13 sets, daily range): BP systolic 85–110; BP diastolic 47–66; PULSE 70–91; TEMP 36–36.7; O2SAT 90–98; BMI 32.2
[2017-07-22] MEDS ORDERED: OPTIRAY 320 IV PRN (00:15)
[2017-07-22] MEDS ORDERED: ONDANSETRON INJ 2 MG/ML 2 ML VIAL ONE (00:25)
[2017-07-22 00:35] LABS: HEMATOCRIT 29.1 % (42-52); MEAN CELL VOLUME 89.8 fL (80-100); MEAN CORPUSCULAR HEMOGLOBIN 30.6 pg (25-34); PLATELET COUNT 111 K/uL (130-400); RED BLOOD COUNT 3.24 M/uL (4.7-6.1)
[2017-07-22] MEDS ORDERED: LEVAQUIN 750MG / 150ML D5W IV STA (00:36)
[2017-07-22] MEDS ORDERED: CEFEPIME IV 1,000 MG in DEXTROSE 5% 100ML 100 ML IV STA (00:36)
[2017-07-22 00:39] LABS: URINE APPEARANCE CLEAR (CLEAR); URINE BILIRUBIN NEG (NEG); URINE COLOR YELLOW; URINE NITRITE NEG (NEG); URINE SPECIFIC GRAVITY 1.014 (1.000-1.030); UROBILINOGEN NEG (NEG); ZZUR CULT IF INDIC CLEAN CATCH YES
[2017-07-22 00:41] LABS: ISTAT CREATININE 1.2 mg/dl (0.6-1.3); ISTAT HEMOGLOBIN 10.5 g/dl (14.0-18.0); ISTAT IONIZED CALCIUM 1.08 mmol/l (1.12-1.32)
[2017-07-22 00:44] LABS: INR 1.2 (0.9-1.1); PROTHROMBIN TIME (PATIENT) 12.6 SECONDS (9.0-12.0)
[2017-07-22] MEDS ORDERED: PROP10TA7 PO (00:49)
[2017-07-22] MEDS ORDERED: PRED20TA PO (00:51)
[2017-07-22] MEDS ORDERED: VANCOMYCIN INJ 2,500 MG in SODIUM CHLORIDE 0.9% 500ML 500 ML IV STA (00:56)
[2017-07-22] MEDS ORDERED: ACETAMINOPHEN 500 MG TAB PO STA (00:56)
[2017-07-22] MEDS ORDERED: PANT40TA PO (00:57)
[2017-07-22 00:58] LABS: MANUAL MICROSCOPIC REQUIRED? NO; REVIEW REQ? YES
[2017-07-22] MEDS ORDERED: INSDGI SC (01:02)
[2017-07-22 01:04] LABS: BASO % 0.1 %; BASO ABS # 0.03 K/uL (0-0.2); COMPLETE YES; EOS % 0.6 %; IG% 2.2 %; LYMPH % 1.3 %; LYMPH ABS # 0.29 K/uL (1.2-3.4); MONO % 4.2 %; NEUT % 91.6 %; OVALOCYTES 1+; TOXIC GRANULATION 1+; VACUOLIZATION 1+
[2017-07-22] MEDS ORDERED: FRS/40 PO (01:06)
[2017-07-22] MEDS ORDERED: FLUO40CA8 PO (01:07)
[2017-07-22] MEDS ORDERED: ENOX40IN SQ (01:08)
[2017-07-22] MEDS ORDERED: DOCU100C31 PO (01:10)
[2017-07-22] MEDS ORDERED: ATOR10TA88 PO (01:13)
[2017-07-22] MEDS ORDERED: ALBINSX INH (01:16)
[2017-07-22] MEDS ORDERED: ACET-1256 PO (01:17)
[2017-07-22 01:18] LABS: PARTIAL THROMBOPLASTIN RATIO 1.3
[2017-07-22] MEDS ORDERED: BISA10SU7 PR (01:19)
[2017-07-22] MEDS ORDERED: POLY1POW2 PO (01:20)
[2017-07-22 01:57] LABS: CALCIUM 8.3 mg/dl (8.5-10.1); MAGNESIUM 1.8 mg/dl (1.8-2.4); POTASSIUM 3.7 mmol/L (3.5-5.1)
[2017-07-22 02:02] LABS: CKMB/CK RATIO 3.8 (0-3.0)
[2017-07-22 02:03] LABS: BUN/CREATININE RATIO 19.7 (10-20); CREATININE 1.3 mg/dl (0.60-1.40)
[2017-07-22] MEDS ORDERED: PROTAMINE SULFATE INJ 20 MG in DEXTROSE 5% 50ML 50 ML IV ONE (02:15)
[2017-07-22] MEDS ORDERED: ACETAMINOPHEN 325 MG TAB PO PRN (02:30)
[2017-07-22] MEDS ORDERED: SODIUM CHLORIDE 0.9% 1000ML 1,000 ML IV STA (02:56)
[2017-07-22] MEDS: LEVALBUTEROL 1.25MG/3ML NEB INH SCH ×4 (03:00→19:03)
[2017-07-22] MEDS: OXYCODONE HCL IR 5 MG TAB (IMMEDIATE RELEASE) PO PRN ×2 (03:14→19:22)
[2017-07-22] MEDS ORDERED: GLUCOSE 10 TABS/TUBE PO PRN (03:15)
[2017-07-22] MEDS ORDERED: GLUCOSE 40% GEL 15 GM TUBE PO PRN (03:15)
[2017-07-22] MEDS ORDERED: DEXTROSE 50% 50 ML SYR IV PRN (03:15)
[2017-07-22] MEDS ORDERED: GLUCAGON FOR INJ 1 MG VIAL SQ PRN (03:15)
--- NOTE | 2017-07-22 03:37 | EMERGENCY ROOM VISIT NOTE ---
History Report prepared by Scribe: Danielle Huitron Under the Supervision of: Dr. Jerzy Soto D.O. First contact with patient: 23:38 Stated Complaint: BLOODY STOOL History of Present Illness The patient is a 62 year old male who presents to the Emergency Room with complaints of persistent rectal bleeding that started earlier this evening. He has a history of multiple previous back surgeries with the most recent one being a spinal fusion performed last , 8 days [employer], at [facility]. The patient is currently recovering at [facility]. He underwent an L4/ L5 decompression on March 14, 2017. He developed a post-operative MRSA infection and on March 29, 2017, underwent a washout. On April 20, he developed pain and swelling and underwent 3 separate debridement surgeries. On May 26, he had an L2 spinal fusion and on June 22, he underwent a corpectomy and an L3 to S1 spinal fusion. On June 26, he had paracentesis for a history of liver disease. A final revision was performed on June 30. Earlier this evening, he had one bloody bowel movement, so EMS was called. He is on daily blood thinners , stating he gets 40 mg Lovenox SQ in his abdomen. In addition to the rectal bleeding, he also complains of nausea and fatigue. The patient denies any headache, change in vision, fevers, chest pain, shortness of breath, vomiting, diarrhea, pain with urination, melena or new numbness or weakness in his legs. He denies any history of previous blood clots. Source of History: patient Onset: [employer] Position: other (rectum) Timing: other (persistent) Associated Symptoms: + nausea, + fatigue, No fevers, No headache, No chest pain, No SOB, No vomiting, No melena, No diarrhea, No urinary symptoms, No weakness (in the legs), No numbness (in the legs) Review of Systems See HPI for pertinent positives & negatives. A total of 10 systems reviewed and were otherwise negative. Past Medical & Surgical Medical Problems: (1) Abscess in epidural space of lumbar spine (2) ACUTE RESP.FAIL.,SARCOIDOSIS (3) Anemia (4) Asthma (5) Diabetic autonomic neuropathy (6) GERD (gastroesophageal reflux disease) (7) gi bleed, ? sepsis (8) gi bleed, ?sepsis (9) Gram negative septicemia (10) HEPATIC ENCEPHALOPATHY. SARCOIDOSIS. DM2,POST LUMBAR DISC SURGERY (11) HERNIATED L4-L5 DISC (12) Hyperlipidemia (13) Hypertension (14) Infection of lumbar spine (15) Kidney stone (16) Lumbar stenosis with neurogenic claudication (17) Meningitis (18) MSC,SEVERE HYPO K, LUMBAR SPINE ABCESS,MALNUTRITION, CIRRHOSIS (19) MSC. FEVER.,?MENINGITIS,DM2,SARCOIDOSIS,SLEEP APNEA (20) Obesity (21) Post op infection (22) Sarcoidosis (23) Septal defect (24) SEVERE CELLULITIS L LEG,SEPSIS SYNDROME (25) Sleep apnea (26) Thrombocytopenia Family History Patient reports no known family medical history. Social History Smoking Status: Never Smoker Alcohol Use: none Drug Use: none Marital Status: Housing Status: lives with family Occupation Status: retired Current/Historical Medications Scheduled Atorvastatin (Lipitor), 10 MG PO DAILY Ceftriaxone Sodium (Rocephin), 2 GM IV Q12 Cyclosporine (Ophth) (Restasis), 1 DROP OPB BID Enoxaparin (Lovenox), 40 MG SQ DAILY Fluoxetine (Prozac), 40 MG PO QAM Furosemide (Lasix), 40 MG PO BID Insulin Aspart (Novolog Penfill), SC AC Insulin Glargine (Lantus), 30 UNITS SC QPM Lactulose (Chronulac), 30 ML PO TID Levalbuterol (Levalbuterol HCl), 1.25 MG INH TID Pantoprazole (Protonix), 40 MG PO QAM Pentoxifylline (Trental), 400 MG PO TID Potassium Ext Rel (Klor-Con), 20 MEQ PO BIDM Prednisone (Prednisone), 20 MG PO QAM Propranolol (Inderal), 10 MG PO BID Quetiapine Fumarate (Seroquel), 25 MG PO HS Rifaximin (Xifaxan), 550 MG PO BID Spironolactone (Aldactone), 50 MG PO DAILY Scheduled PRN Acetaminophen (Tylenol), 500 MG PO Q4H PRN for Pain Albuterol Sulf (Albuterol Sulfate), 2.5 MG INH Q4H PRN for SOB/Wheezing Bisacodyl (Bisac-Evac), 10 MG MT DAILY PRN for Constipation Docusate Sodium (Docusate Sodium), 100 MG PO BID PRN for Constipation Ondansetron Hcl (Zofran), 4 MG PO Q6 PRN for Nausea Oxycodone Ir (Roxicodone Ir), 5 MG PO Q4H PRN for Moderate Pain Polyethylene Glycol 3350 (Bulk (Polyethylene Glycol 3350), 17 GM PO DAILY PRN for Constipation Simethicone (Cvs Gas Relief), 80 MG PO Q6 PRN for GAS Allergies Coded Allergies: Celecoxib (Verified Allergy, Intermediate, HIVES, 05/02/17) Penicillins (Verified Allergy, Intermediate, HIVES, 05/02/17) Physical Exam Vital Signs Date Time Temp Pulse Resp B/P (MAP) Pulse Ox O2 Delivery O2 Flow Rate FiO2 07/22/17 02:52 96 18 79/49 97 Nasal Cannula 3.0 07/22/17 01:45 100 90/56 94 Nasal Cannula 2.0 07/22/17 01:45 101 18 76/48 97 Nasal Cannula 2.0 07/22/17 01:30 97 18 87/58 94 Nasal Cannula 2.0 07/22/17 01:15 99 18 89/50 97 Nasal Cannula 2.0 07/22/17 00:57 92 18 88/55 97 Nasal Cannula 3.0 07/22/17 00:45 95 18 91/58 98 Nasal Cannula 2.0 07/22/17 00:30 96 18 95/62 98 Room Air 07/22/17 00:21 38.7 98 18 103/58 95 Nasal Cannula 3.0 07/22/17 00:09 108 18 89/44 07/21/17 23:41 37.6 106 18 79/51 93 Nasal Cannula 2.0 Physical Exam GENERAL: Patient is alert, sitting up in bed, on nasal canula, ill-appearing, in moderate distress EYE EXAM: normal conjunctiva OROPHARYNX: no exudate, no erythema, lips, buccal mucosa, and tongue normal and mucous membranes are dry NECK: supple, no nuchal rigidity, no adenopathy, non-tender LUNGS: Diminished bilateral. Normal chest wall mechanics HEART: no murmurs, S1 normal and S2 normal ABDOMEN: Abdomen is distended with a midline incision which is clean, dry and intact. Abdomen is non-tender, normo-active bowel sounds, no masses, no rebound or guarding. RECTAL: Gross blood present. BACK: Back is symmetrical on inspection and there is no deformity, no midline tenderness, no CVA tenderness. SKIN: no rashes and no bruising UPPER EXTREMITIES: upper extremities are grossly normal. LOWER EXTREMITIES: Pitting edema in bilateral LE. NEURO EXAM: Normal sensorium, cranial nerves II-XII grossly intact, normal speech. Medical Decision & Procedures ER Provider Diagnostic Interpretation: Radiology results as stated below per my review and interpretation: CHEST X-RAY, PORTABLE, 1 VIEW Patchy infiltrate over left lung, with consolidation in right lower lobe. CT ABDOMEN & PELVIS: Comparison: CT abdomen and pelvis 03/24/17 No gross evidence of GI hemorrhage, although very limited on noncontrast CT. Tagged red blood cell scan could be used for further evaluation if indicated. Colonic diverticulosis without evidence of diverticulitis. Cirrhotic liver with evidence of portal hypertension. Splenomegaly. Moderate volume ascites. Accumulation of fluid within the muscular layers of the left lower quadrant anterior abdominal wall. Sterility is indeterminate. Overlying fluid in the subcutaneous abdominal wall. Anasarca. Peripancreatic fluid, which may be redistribution of ascites, but correlate with labs for acute pancreatitis. Nonobstructing left renal calculus. Small amount of air in the urinary bladder. Correlate for recent instrumentation versus infection. Scattered bibasilar opacities, likely atelectasis. Posterior lumbosacral spinal fusion. Radiologist: Efrían Esteban MD Laboratory Results 07/22/17 00:18 Red Blood Count 3.24, Mean Corpuscular Volume 89.8, Mean Corpuscular Hemoglobin 30.6, Mean Corpuscular Hemoglobin Concent 34.0, Mean Platelet Volume 11.0, Neutrophils (%) (Auto) 91.6, Lymphocytes (%) (Auto) 1.3, Monocytes (%) (Auto) 4.2, Eosinophils (%) (Auto) 0.6, Basophils (%) (Auto) 0.1, Neutrophils # (Auto) 19.79, Lymphocytes # (Auto) 0.29, Monocytes # (Auto) 0.90, Eosinophils # (Auto) 0.12, Basophils # (Auto) 0.03 07/22/17 00:18 Test 07/22/17 00:18 07/22/17 00:23 07/22/17 00:27 White Blood Count 21.60 K/uL (4.8-10.8) Red Blood Count 3.24 M/uL (4.7-6.1) Hemoglobin 9.9 g/dL (14.0-18.0) Hematocrit 29.1 % (42-52) Mean Corpuscular Volume 89.8 fL (80-100) Mean Corpuscular Hemoglobin 30.6 pg (25-34) Mean Corpuscular Hemoglobin Concent 34.0 g/dl (32-36) Platelet Count 111 K/uL (130-400) Mean Platelet Volume 11.0 fL (7.4-10.4) Neutrophils (%) (Auto) 91.6 % Lymphocytes (%) (Auto) 1.3 % Monocytes (%) (Auto) 4.2 % Eosinophils (%) (Auto) 0.6 % Basophils (%) (Auto) 0.1 % Neutrophils # (Auto) 19.79 K/uL (1.4-6.5) Lymphocytes # (Auto) 0.29 K/uL (1.2-3.4) Monocytes # (Auto) 0.90 K/uL (0.11-0.59) Eosinophils # (Auto) 0.12 K/uL (0-0.5) Basophils # (Auto) 0.03 K/uL (0-0.2) RDW Standard Deviation 58.8 fL (36.4-46.3) RDW Coefficient of Variation 17.9 % (11.5-14.5) Immature Granulocyte % (Auto) 2.2 % Immature Granulocyte # (Auto) 0.47 K/uL (0.00-0.02) Toxic Granulation 1+ Toxic Vacuolation 1+ Ovalocytes 1+ Prothrombin Time 12.6 SECONDS (9.0-12.0) Prothromb Time International Ratio 1.2 (0.9-1.1) Activated Partial Thromboplast Time 32.9 SECONDS (21.0-31.0) Partial Thromboplastin Ratio 1.3 Urine Color YELLOW Urine Appearance CLEAR (CLEAR) Urine pH 6.0 (4.5-7.5) Urine Specific [place] 1.014 (1.000-1.030) Urine Protein TRACE (NEG) Urine Glucose (UA) NEG (NEG) Urine Ketones NEG (NEG) Urine Occult Blood 3+ (NEG) Urine Nitrite NEG (NEG) Urine Bilirubin NEG (NEG) Urine Urobilinogen NEG (NEG) Urine Leukocyte Esterase NEG (NEG) Urine WBC (Auto) 5-10 /hpf (0-5) Urine RBC (Auto) >30 /hpf (0-4) Urine Hyaline Casts (Auto) 1-5 /lpf (0-5) Urine Epithelial Cells (Auto) 5-10 /lpf (0-5) Urine Bacteria (Auto) NEG (NEG) Urine Yeast (Auto) BUDDING (NONE PRSENT) Est Creatinine Clear Calc Drug Dose 62.7 ml/min Estimated GFR () 66.8 Estimated GFR (Non- 57.7 BUN/Creatinine Ratio 19.7 (10-20) Calcium Level 8.3 mg/dl (8.5-10.1) Magnesium Level 1.8 mg/dl (1.8-2.4) Total Bilirubin 1.7 mg/dl (0.2-1) Direct Bilirubin 0.9 mg/dl (0-0.2) Aspartate Amino Transf (AST/SGOT) 33 U/L (15-37) Alanine Aminotransferase (ALT/SGPT) 30 U/L (12-78) Alkaline Phosphatase 311 U/L (45-117) Total Creatine Kinase 24 U/L (39-308) Creatine Kinase MB 0.9 ng/ml (0.5-3.6) Creatine Kinase MB Ratio 3.8 (0-3.0) Troponin I 0.040 ng/ml (0-0.045) Total Protein 4.7 gm/dl (6.4-8.2) Albumin 2.1 gm/dl (3.4-5.0) Bedside Lactic Acid Venous 2.62 mmol/L (0.90-1.70) Bedside Hemoglobin 10.5 g/dl (14.0-18.0) Bedside Hematocrit 31 % (42-52) Bedside Sodium 134 mEq/L (135-144) Bedside Potassium 3.7 mEq/L (3.3-5.0) Bedside Chloride 91 mEq/L (101-112) Bedside Total CO2 28 mEq/l (24-31) Anion Gap 19.0 mmol/L (16-25) Bedside Blood Urea Nitrogen 23 mg/dl (7-18) Bedside Creatinine 1.2 mg/dl (0.6-1.3) Bedside Glucose (other) 135 mg/dl (70-99) Bedside Ionized Calcium (James) 1.08 mmol/l (1.12-1.32) Laboratory results per my review. Medications Administered Medications (Trade) Dose Ordered Sig/Nathalia Route Start Time Stop Time Status Last Admin Dose Admin Sodium Chloride 2,000 ml @ 999 mls/hr Q2H1M STAT IV 07/21/17 23:48 07/22/17 01:48 DC 07/22/17 00:19 999 MLS/HR Ondansetron HCl (Zofran Inj) 4 mg STK-MED ONCE .ROUTE 07/22/17 00:25 07/22/17 00:26 DC 07/22/17 00:27 4 MG Cefepime HCl 1000 mg/Dextrose 111.3 ml @ 200 mls/hr NOW STAT IV 07/22/17 00:36 07/22/17 01:09 DC 07/22/17 01:31 200 MLS/HR Levofloxacin (Levaquin / D5W) 750 mg NOW STAT IV 07/22/17 00:36 07/22/17 00:37 DC 07/22/17 01:34 750 MG Vancomycin HCl 2500 mg/Sodium Chloride 550 ml @ 200 mls/hr ONE STAT IV 07/22/17 00:56 07/22/17 03:40 07/22/17 02:13 200 MLS/HR Acetaminophen (Tylenol Tab) 1,000 mg NOW STAT PO 07/22/17 00:56 07/22/17 00:57 DC 07/22/17 01:38 1,000 MG Protamine Sulfate 20 mg/Dextrose 52 ml @ 300 mls/hr NOW ONCE IV 07/22/17 02:15 07/22/17 02:25 DC 07/22/17 03:00 300 MLS/HR Oxycodone HCl (Roxicodone Immediate Rel Tab) 5 mg Q4H PRN PO 07/22/17 02:45 08/05/17 02:44 07/22/17 03:14 5 MG Sodium Chloride 1,000 ml @ 999 mls/hr Q1H1M STAT IV 07/22/17 02:56 07/22/17 03:56 07/22/17 03:01 999 MLS/HR ECG Indication: toxicologic, weakness Rate (beats per minute): 96 Rhythm: sinus rhythm Findings: PAC, PVC, other (normal axis) ED Course ED COURSE: Vital signs were reviewed and showed normal vital signs The patients medical record was reviewed The above diagnostic studies were performed and reviewed. ED treatments and interventions as stated above. 2339: The patient was evaluated in room B6. A complete history and physical examination was performed. 2348: NSS 2000 ml @ 999 mls/hr IV. 0005: I reevaluated the patient. He had another bloody bowel movement. 0020: I have reviewed the patients most recent lab work from July 20, 2017. His WBC was 9.8, Hemoglobin was 9.5 and Creatinine was 1.1. 0025: Zofran 4 mg IV. 0036: Levaquin 750 mg IV, Cefepime HCl 1000 mg/Dextrose 111.3 ml @ 200 mls/hr IV. 0056: Acetaminophen 1000 mg PO, Vancomycin HCl 2500 mg/NSS 550 ml @ 200 mls/hr IV. 0118: I discussed the patients case Dr. Nielesn, Internal Medicine. The patient will be further evaluated. 0150: The patients blood pressure decreased from the 90's to the 70's. A bedside US shows no pericardial effusion, but a hyperdynamic left ventricle. 0201: I discussed the patients case with Danika Alvarenga PA-C, [facility] Autom[employer] Service Consultant. The patient will be further evaluated. 0210: Upon reevaluation, the patient is stable and resting. I discussed my findings with the patient and he understands and agrees with the treatment plan. 0215: Protamine Sulfate 20 mg/Dextrose 52 ml @ 300 mls/hr IV. Based on the patients age, coexisting illnesses, exam and lab findings the decision to treat as an inpatient was made. The patient remained stable while under my care. The patient will be evaluated for further management. Medical Decision Differential diagnosis includes etiologies such as diverticulosis, AVM, coagulopathy, colitis, inflammatory bowel disease, malignancy, Ruma-Leggett tear, esophagitis, peptic ulcer disease, variceal bleed, gastritis, epistaxis, fissure, hemorrhoids, as well as others were entertained. Patient is a 62-year-old male that presents to ER via ALS who was found to be febrile with a temperature of 39, tachycardic and hypotensive with systolic blood pressures in the 70s. He was having bright red blood per rectum. Sepsis order set was started. PICC line was previously in place. An additional 18- gauge was obtained. He was given 3 L of IV normal saline. He was given cefepime, vancomycin and Levaquin. Chest x-ray supports pneumonia. CT of his abdomen and pelvis doesn't appear to show any acute infectious etiology. Bedside ultrasound/echo of the heart shows a hyperdynamic LV initially. Heart rate trended down following fluids. Systolic blood pressures did improve to the 90s. CBC was 21,000. Hemoglobin was 9.9 consistent with his hemoglobin yesterday. BMP was unremarkable. Bilirubin slightly elevated. Lactate was 2.6. UA does not support an infection. PTT was elevated at 33. With his GI bleeding per to mean was given to reverse bleeding. Patient and family were updated at the bedside. He was admitted to internal medicine for further workup of his severe sepsis. Medication Reconcilliation Current Medication List: was personally reviewed by me Blood Pressure Screening Patient's blood pressure: Low blood pressure Blood pressure disposition: Elevated BP felt to be situational Consults Time Called: 0115 Consulting Physician: Dr. Nielsen, Internal Medicine Returned Call: 0118 I discussed the patients case Dr. Nielsen, Internal Medicine. The patient will be further evaluated. Additional Consults: Time Called: 0157 Consulted Physician: Danika Alvarenga PA-C, [facility] [employer] Service Consultant Returned Call: 0201 Additional Comments: I discussed the patients case with Danika Alvarenga PA-C, [facility] Autom[employer] Service Consultant. The patient will be further evaluated. Impression Primary Impression: Severe sepsis Additional Impressions: Lactic acidosis Pneumonia GI bleed Hypotension Critical Care I have personally spent 75 minutes of critical care time in the direct management of this patient. This includes bedside care, interpretation of diagnostic studies, and testing, discussion with consultants, patient, and family members, and other required patient management activities. This 75 minutes is in excess of all separately billable procedures. Scribe Attestation The scribe's documentation has been prepared under my direction and personally reviewed by me in its entirety. I confirm that the note above accurately reflects all work, treatment, procedures, and medical decision making performed by me. Departure Information Dispostion Being Evaluated By Hospitalist Referrals HaakonBala (PCP) Problem Qualifiers Additional Impressions: Pneumonia Pneumonia type: due to unspecified organism Laterality: unspecified laterality Lung location: unspecified part of lung Qualified Codes: J18.9 - Pneumonia, unspecified organism GI bleed GI bleed type/associated pathology: unspecified gastrointestinal hemorrhage type Qualified Codes: K92.2 - Gastrointestinal hemorrhage, unspecified Hypotension Hypotension type: unspecified hypotension type Qualified Codes: I95.9 - Hypotension, unspecified
[2017-07-22] MEDS ORDERED: CEFEPIME CONSULT ACTIVE PRN ×2 (04:00)
[2017-07-22] MEDS ORDERED: VANCOMYCIN CONSULT ACTIVE PRN (04:00)
[2017-07-22] MEDS ORDERED: LEVOFLOXACIN CONSULT ACTIVE PRN (04:00)
--- NOTE | 2017-07-22 04:16 | History and Physical ---
History & Physical Date of Service Jul 22, 2017. History & Physical ADMISSION DATE : 07/22/2017 CHIEF COMPLAINT : 62-year-old male admitted from [facility] with multiple problems including recurrent fever, rectal bleeding. PRESENT ILLNESS : Patient with extensive medical history. Since the end of February 2017 he has been hospitalized here at [facility], [facility] , [facility], [facility]. He probably spent approximately one week at home since then. In February of this year he underwent surgery for severe herniation of L4-L5 disc with nerve root compromise. He was having severe lumbar radiculopathy with leg weakness and fall. He underwent surgery by Dr. Todd Gray. Subsequently he developed infection at the surgical site and required additional surgery. The hardware got loose. He required additional intervention and eventually removed of most of the hardware. He required multiple hospitalizations. Required additional interventions for debridement of the surgical site. He did develop spinal abscess. At one time he was also hospitalized with sepsis related to urinary tract infection. Patient was then transferred to [facility]. He underwent additional surgeries. The hardware was eventually completely removed. He had severe collapse of L4. An new cage was placed. There was a problem related to that because the cage moved out of place and another surgery was performed. The last 2 surgeries he had involved anterior approach. His surgeries have been quite complex. Patient has been on IV antibiotic continuously since after his first surgery. He has been on different medications including vancomycin, daptomycin, Rocephin, and rifampin orally. Patient was discharged from [facility] 2 days ago. He was admitted to [facility]. Tonight he was noted to have rectal bleeding. He was feeling weak and tired. He also developed fever. Keeping in mind that he is still on IV Rocephin . Patient was transferred to the emergency room. He was evaluated by Dr. Soto. Multiple tests were done. His chest x-ray showed abnormalities most likely representing atelectasis but the possibility of an infectious process is also considered. He had a CT scan of the abdomen and pelvis. No evidence of any ongoing infection was noted. As noted his medical history is quite complex. 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 Type 2 diabetes mellitus initially steroid induced. Chronic steroid therapy. Liver cirrhosis. Recurrent ascites. Chronic thrombocytopenia. Malnutrition. Atrial septal defect which was repaired in 2014 at the [facility]. Depression. According to the patient and his family he participated in therapy. He does have a brace that he has to wear whenever he is moved. Earlier today his family noted that he was feeling tired. He denied any headache. No dizziness no lightheadedness. Denied any chest pain. No shortness of breath. No cough or sputum no hemoptysis. No abdominal pain. No problem with the surgical site. He was complaining of back pain which is chronic. He has had severe swelling in his lower extremities but that has been improving. I saw the patient in the emergency room. He was already started on a triple antibiotic with Levaquin, cefepime, and vancomycin. Patient has been on Lovenox. Protamine sulfate was also ordered by Dr. Soto. After evaluation in the emergency room patient is being admitted to PCU with telemetry for further evaluation and treatment. PAST MEDICAL HISTORY : * Long-standing sarcoidosis with pulmonary and extrapulmonary manifestations. He has been on chronic prednisone therapy. Prior to that he was tried on multiple medications. * Large herniation of L4-L5 disc with severe compromise of the exiting L4 root. Had his first surgery in February 2016. Multiple postoperative complications with abscesses, osteomyelitis, loosening of the hardware, collapse of L4. * History of urosepsis with Klebsiella * Atrial septal defect required repair at the [facility] in 2014 * Obstructive sleep apnea he uses a CPAP. First diagnosed in 2005 * Tonsillectomy in childhood * Torn meniscus of the left knee required surgery in 1996 * Left inguinal hernia repair in 1996 * Bilateral carpal tunnel release in the remote past * Type 2 diabetes mellitus on insulin * Peripheral neuropathy * Liver cirrhosis * History of GI bleed with a hemoglobin down to 7 g. He was hospitalized. He had upper and lower endoscopies. The source of the bleeding was never determined. * Arterial hypertension. Long-standing. * Bilateral cataract surgery * Chronic thrombocytopenia * Recurrent ascites SOCIAL HISTORY : He is . Has one daughter. No history of any smoking. 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 He did drink wine at least 3 glasses per day. Denied any drugs. He is retired. 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 Up until he presented with the problem with his herniated disc he was volunteering with multiple organizations. FAMILY HISTORY : His father age 76. Was diabetic and had heart disease. His mother at age 84 of natural cause. He has 2 sisters alive and well. One daughter recently treated for breast cancer. ALLERGIES : * Penicillin * Celebrex CURRENT MEDICATIONS : All as noted on the information that came with him from [facility] REVIEW OF SYSTEMS : All as noted above PHYSICAL EXAMINATION : GENERAL: Well-developed. Feeling weak and tired. His recorded weight is 94 kg. Height 170.2 cm. BMI 32.4 VITAL SIGNS: On arrival to the emergency room his blood pressure was 79/51, pulse 106, respiration 18, temperature 37.6, oxygen saturation 93% on 2 L oxygen by nasal cannula. His temperature tameka to 38.7 after he arrived to the emergency room. SKIN: Warm and dry. No evidence of any significant jaundice. HEENT: No significant jaundice. No mucosal abnormality. NECK: Supple. Nontender. No lymph node or thyroid enlargement. No JVD. CHEST: Normal HEART: Regular heart sounds with 2/6 systolic murmur. LUNGS: Decreased breath sounds bilaterally. No wheezing. No rhonchi. AXILLA: No adenopathy BREASTS: Normal ABDOMEN: Soft nontender. Evidence of ascites. Surgical scar left side. No evidence of any inflammation or discharge. Good bowel sounds. BACK: Surgical scar EXTREMITIES: Bilateral leg edema. No clubbing no cyanosis. No joint or muscle tenderness. Good pulses. He has a PICC line right arm NEUROLOGICAL EXAMINATION: He is awake alert and oriented. He does have bilateral leg weakness. No lateralized deficit. GENITALIA: He does have evidence of edema in the scrotum and the penis LABORATORY TESTS : WBC count 21,600, hemoglobin 9.9, hematocrit 29.1, platelet count 111,000. Prothrombin time 12.6, INR 1.2, PTT 32.9. Sodium 135, potassium 3.7, chloride 97, CO2 30, BU and 26, creatinine 1.3, glucose 138, calcium 8.3, magnesium 1.8, total bilirubin 1.7, AST 33, AST 30, alkaline phosphatase 311, total CK 24, CK-MB 0.9, troponin I 0.040, total protein 4.7, albumin 2.1. Lactic acid 2.62. Urinalysis showed trace protein, 3+ blood, 5-10 WBCs, over 30 rbc's. Budding yeast noted. ASSESSMENT : * Lower GI bleed * Suspected sepsis * Abnormal chest x-ray. Atelectasis. Cannot rule out an infectious process. Clinically he is not having any cough or any sputum. * Status post lumbar disc surgery L4-L5 with multiple complications including osteomyelitis, abscesses, collapse of L4, has required multiple interventions a total of 7. * Sarcoidosis with pulmonary and extrapulmonary manifestations * Liver cirrhosis * Chronic thrombocytopenia * Type 2 diabetes mellitus * Generalized weakness * Poor nutritional status * Obstructive sleep apnea * Peripheral neuropathy * Depression * Atrial septal defect which was repaired in 2014 PLAN : As noted patient had an extensive evaluation by Dr. Soto in the emergency room. Because of the GI bleed and the fact that he was on Lovenox Dr. Soto gave him a dose of protamine sulfate. He also started him on a triple antibiotic with Levaquin, cefepime, and vancomycin. I spoke with the pharmacist. We will continue this triple antibiotic for now. Infectious disease consultation was requested from Dr. Pallavi Chen and she will decide on the choice of antibiotics. Depending on the blood culture results we need to decide about changing his PICC line and possibly repeat his echocardiogram. Stool was sent for culture and sensitivity and also for Clostridium difficile toxin. Patient is admitted to PCU with telemetry. Resuscitation level I. All his laboratory tests were ordered. Continued on oxygen. High flow treatment with Xopenex. Monitoring his BSG's and insulin coverage. Hold off on any anticoagulation. GI consultation was requested. Patient has seen Dr. Fer garcia in the past. With all the surgeries that he had so far, recurrent sepsis, GI bleed and generalized weakness his condition is serious. I did speak with the patient, his and his sister.
[2017-07-22] MEDS: SODIUM CHLORIDE 0.9% 1000ML 1,000 ML IV SCH ×2 (05:02→17:15)
--- NOTE | 2017-07-22 05:24 | DIAGNOSTIC IMAGING REPORT ---
CHEST ONE VIEW PORTABLE CLINICAL HISTORY: 62 years-old Male presenting with fever. TECHNIQUE: Portable semiupright AP view of the chest was obtained. COMPARISON: 05/19/2017. FINDINGS: Right upper extremity PICC terminates in the SVC. Low lung volumes with hypoventilatory changes. Resulting prominence of the cardiomediastinal silhouette. Patchy central and basilar predominant opacities, left greater than right. No large effusion or pneumothorax. Degenerative changes of the spine. Upper abdomen normal. IMPRESSION: 1. Patchy central and basilar predominant opacities, left greater than right. Multifocal pneumonia cannot be excluded. However, in the setting of low lung volumes, this could also represent extensive atelectasis. Electronically signed by: Jayro Frankel M.D. 07/22/2017 5:22 AM Dictated Date/Time: 07/22/2017 5:20 AM
--- NOTE | 2017-07-22 06:00 | DIAGNOSTIC IMAGING REPORT ---
ABD/PELVIS IV CONTRAST ONLY CLINICAL HISTORY: 62 years-old Male presenting with gi bleed . TECHNIQUE: Multidetector CT of the abdomen and pelvis was performed after the administration of intravenous contrast. IV contrast: 94 mL of Optiray 320. A dose lowering technique was used consistent with the principles of ALARA (as low as reasonably achievable). COMPARISON: 03/24/2017. CT DOSE (mGy.cm): The estimated cumulative dose is 1675.81 mGy.cm. 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 Lung bases: Increased peribronchial vascular consolidation in the right lower lobe. Reticular and groundglass opacities now seen in the lingula. Bandlike opacities in the left lung base also noted. Surgical material noted in the region of the interatrial septum. Aortic valve and coronary artery calcification. Mild cardiac enlargement. No pericardial or pleural effusion. Liver: Nodular contour of the liver could suggest cirrhosis. No liver lesion. Patent hepatic vasculature. Biliary: No intrahepatic or extrahepatic biliary ductal dilatation. Gallbladder contracted. Pancreas: Peripancreatic fluid and fat stranding most pronounced at the tail new from prior. Densely normal parenchymal enhancement. Spleen: Top normal in size measuring nearly 13 cm in maximal sagittal dimension. Adrenal glands: Normal. Kidneys and ureters: Few well-defined hypodensities in the left kidney likely simple cysts. Nonobstructing 5 mm calculus in the interpolar region of the left kidney. No hydronephrosis. Normal ureters. Bladder: Incompletely evaluated secondary to underdistention. Apparent bladder wall thickening may be due to underdistention. A focus of gas may represent recent catheterization or instrumentation. Pelvic organs: Prostate and seminal vesicles normal. Bowel: Fluid within the colon suggests a diarrheal state. Limited diverticulosis at the junction of the descending and sigmoid colon. No bowel obstruction. Mild wall thickening of the descending portion of the duodenum is suggested, likely secondarily reactive. Peritoneal cavity: Stable to slight increase in volume of the moderate abdominal pelvic ascites. Peritoneal defects with herniation of ascites along the left abdominal wall and into the subcutaneous tissue of the left lower quadrant. No convincing evidence of peritoneal thickening or enhancement to suggest peritonitis. Vasculature: Atherosclerosis of the normal caliber abdominal aorta. IVC patent. Lymph nodes: Few prominent lymph nodes in the portacaval region, likely reactive. No pathologically enlarged lymph nodes by CT size criteria. Abdominal wall: Fat-containing right inguinal hernia. The left inguinal canal contains hyperdense material that may suggest prior postsurgical or posttreatment change. Multiple locules of fluid noted in the subcutaneous tissue of the left lower quadrant, likely due to herniation of ascites. Skin thickening over the left lower quadrant, more focal than on prior exam. Mild anasarca noted. A surgical defect may be present along the left lower quadrant at the site of subcutaneous ascites. Musculoskeletal: Posterior lumbar fusion hardware noted. This bridges the bilateral sacroiliac joints. IMPRESSION: 1. Interval development of peripancreatic fluid and fat stranding with essentially normal parenchymal enhancement of the pancreas. This is consistent with interstitial edematous pancreatitis likely with acute peripancreatic fluid collection at the pancreatic tail. 2. Fluid within the colon suggests a diarrheal state. 3. Slowly increasing ascites. Multiple peritoneal defects primarily in the left lower quadrant with herniation of ascites into the abdominal wall and subcutaneous tissue. 4. Suggestion of cirrhosis. 5. Postsurgical changes in the left lower quadrant may be present. Skin thickening could be related or represent cellulitis. Correlate clinically. 6. Vascular consolidation of the right lower lobe combined with reticular and groundglass opacities in the lingula. Infectious etiology cannot be excluded. Likely atelectasis in the left lower lobe. Electronically signed by: Jayro Frankel M.D. 07/22/2017 5:59 AM Dictated Date/Time: 07/22/2017 5:45 AM
[2017-07-22 06:33] LABS: HEMATOCRIT 27.5 % (42-52); MEAN CELL VOLUME 91.7 fL (80-100); MEAN CORPUSCULAR HGB CONC 31.6 g/dl (32-36); WHITE BLOOD COUNT 12.35 K/uL (4.8-10.8)
[2017-07-22 06:42] LABS: INR 1.2 (0.9-1.1); PARTIAL THROMBOPLASTIN RATIO 1.5; PROTHROMBIN TIME (PATIENT) 13.4 SECONDS (9.0-12.0)
[2017-07-22 06:59] LABS: BUN/CREATININE RATIO 19.1 (10-20); CALCIUM 7.4 mg/dl (8.5-10.1); CREATININE 1.2 mg/dl (0.60-1.40); MAGNESIUM 1.7 mg/dl (1.8-2.4); POTASSIUM 3.6 mmol/L (3.5-5.1)
[2017-07-22 07:01] LABS: ALB/GLOB RATIO 0.7 (0.9-2); PHOSPHORUS 3.6 mg/dl (2.5-4.9)
[2017-07-22 07:38] LABS: BASO % 0.1 %; BASO ABS # 0.01 K/uL (0-0.2); COMPLETE YES; ECHINOCYTES 2+; EOS % 0.9 %; IG% 1.6 %; LYMPH % 3.6 %; LYMPH ABS # 0.45 K/uL (1.2-3.4); MEAN PLATELET VOLUME 10.4 fL (7.4-10.4); MONO % 8.6 %; NEUT % 85.2 %; PLATELET COUNT 73 K/uL (130-400); PLT ESTIMATE DECREASED; TOXIC GRANULATION 3+
[2017-07-22] MEDS: RESTASIS~ORDER AWAITING ACTION SCH ×2 (08:00→16:00)
[2017-07-22] MEDS: FUROSEMIDE 40 MG TAB PO SCH ×2 (08:31→17:08)
[2017-07-22] MEDS: FLUOXETINE HCL 20 MG CAP PO SCH (08:31)
[2017-07-22] MEDS: ATORVASTATIN 10 MG TAB PO SCH (08:31)
[2017-07-22] MEDS: PROPRANOLOL HCL 10 MG TAB PO SCH ×2 (08:32→21:55)
[2017-07-22] MEDS: SPIRONOLACTONE 100 MG TAB PO SCH (08:32)
[2017-07-22] MEDS: PANTOprazole SOD 40 MG TAB PO SCH (08:33)
[2017-07-22] MEDS: LACTULOSE SYRUP 20 GM/30 ML UDC PO SCH ×3 (08:33→19:28)
[2017-07-22] MEDS: INSULIN GLARGINE SOLOSTAR 100 UNITS/ML 3 ML PEN SC SCH ×2 (08:37→21:59)
[2017-07-22] MEDS: INSULIN ASPART 100 UNITS/ML 3 ML PEN SC SCH ×4 (08:37→21:58)
[2017-07-22] MEDS ORDERED: FUROSEMIDE 40 MG TAB PO SCH (09:00)
--- NOTE | 2017-07-22 09:57 | Progress Note ---
Progress Note Date of Service Jul 22, 2017. Progress Note 62-year-old male admitted during the night with multiple problems including rectal bleeding, suspected sepsis, he has an extensive complex medical history. He has had multiple surgeries on his lumbar spine. Initially he had herniated L4-L5 disc and had surgery in February. Subsequently he developed multiple severe complications with infection of the surgical site, osteomyelitis, collapse of L4, loosening of the hardware. He has required multiple surgeries both here at our hospital and also at [facility]. This morning he is afebrile. He seems to be resting comfortably. He denied any headache or dizziness or lightheadedness. No chest pain no shortness of breath. No abdominal pain. His back pain is under control. He does have swelling in his legs. This is chronic. He does have liver cirrhosis. He also has ascites. EXAMINATION: Skin is warm and dry. No rash. HEENT no evidence of any mucosal abnormality. No jaundice. Neck is supple without lymph node or thyroid enlargement. No JVD. Heart regular heart sounds. 2/6 systolic murmur. Lungs decreased breath sounds. No wheezing. Abdomen is markedly distended with ascites. He does have a surgical scar left side of his abdomen. Extremities bilateral leg edema. Laboratory tests this morning showed WBC count 12,350, hemoglobin 8.7, hematocrit 27.5, platelet count 73,000. Sodium 138, potassium 3.6, glucose 114 , chloride 102, CO2 30, BU and 23, creatinine 1.2, calcium 7.4, phosphorus 3.6, magnesium 1.7, total bilirubin 1.3, AST 27, AST 25, alkaline phosphatase 248. Stool was negative for Clostridium difficile. Cultures are pending. He did have a bowel movement this morning. There was only minimal amount of blood. ASSESSMENT * Lower GI bleed * Probable sepsis * Liver cirrhosis * Thrombocytopenia * Anemia * Status post multiple surgeries lumbar spine initially for herniated disc then for multiple infectious complications * Sarcoidosis * Type 2 diabetes mellitus * Chronic thrombocytopenia PLAN: * Continue with his current medications * We'll monitor his hemoglobin. It did decrease from 9.9 on admission this was done at midnight last night and this morning it was 8.7. So far there is no evidence of significant bleeding per rectum. We will be repeating his CBC at noon and again at 6 PM tonight. I did ask him to sign at the transfusion consent just in case is currently transfusion * GI consultation was requested * Infectious disease consultation was requested * Physical and occupational therapies were requested. * He is currently on a triple antibiotic with cefepime, vancomycin, Levaquin. We will continue this regimen until we have recommendation from infectious disease.
[2017-07-22] MEDS: CEFEPIME IV 2000 MG in DEXTROSE 5% 100ML IV SCH ×2 (10:13→17:06)
[2017-07-22 12:16] LABS: HEMATOCRIT 27.3 % (42-52); MEAN CELL VOLUME 91.6 fL (80-100); MEAN CORPUSCULAR HEMOGLOBIN 30.5 pg (25-34); MEAN CORPUSCULAR HGB CONC 33.3 g/dl (32-36); RED BLOOD COUNT 2.98 M/uL (4.7-6.1)
[2017-07-22 12:20] LABS: MEAN PLATELET VOLUME 10.6 fL (7.4-10.4); PLATELET COUNT 79 K/uL (130-400)
--- NOTE | 2017-07-22 13:30 | Gastrointestinal Consultation ---
Gastrointestinal Consultation Date of Consultation: Jul 22, 2017 Attending Physician: Hu Cooper Consulting Physician: Fabio Osborne Reason for Consultation: GI bleeding History of Present Illness Patient is a 62 year old male with chief complaint of rectal bleeding HPI with patient for H and P. Reviewed [place] and [facility] EMR. Pt with complicated recent history. Pt with several back surgeries since 02/2017 and either in hospital or acute or subacute rehab since then. Has had complications of infection. GI saw him last in office 01/[address] Monroe diagnosed him with cirrhosis. Last GI hosp contact 03/2017 for mental status changes and ascites. Had GI workup for anemia 2014 with EGD, colonoscopy and capsule with unclear source. The [id number] did show hemorrhoids and diverticulosis. Most recent EGD 02/28/2017 Gastric erosions path inflammation, portal hypertensive gastropathy, duodenal diverticulum, random duodenal bx neg. Pt most recently at [facility] and noted to be having bowel movements with what was described as fresh red blood. Rectal in ER described as gross blood. Hgb 9.9 in ER versus baseline 8.5 on 06/21/17. Hgb 9.1 at 1208 today. Had small brown with red stool this am but at 1319 stool but no blood in it. Pt states has incisional abd pain. Has lost 50 lbs since February with multiple admissions, surgeries. In ER noted to be hypotensive and tachycardic with fever to 39. Is on Xifaxan and lactulose for hepatic encephalopathy and does have diarrhea from that treatment. CXR ? pneumonia. WBC elevated. LFTS elevated. CT A/P diverticulosis, ascites, cirrhosis, fluid around panacreas, stool composition suggestive of diarrhea. Past Medical/Surgical History Medical Problems: (1) Altered mental status Status: Acute (2) Fall in home Status: Acute (3) Fever Status: Acute (4) GI bleed Status: Acute (5) Hepatic encephalopathy Status: Acute (6) Hypokalemia Status: Acute (7) Hypotension Status: Acute (8) Hypoxia Status: Acute (9) Immunocompromised Status: Acute (10) Lactic acidosis Status: Acute (11) Left leg cellulitis Status: Acute (12) Lumbar disc herniation with radiculopathy Status: Acute (13) Orthostasis Status: Acute (14) Pneumonia Status: Acute (15) Sepsis Status: Acute (16) Severe sepsis Status: Acute (17) Tenosynovitis, de Quervain Status: Acute (18) Vomiting Status: Acute Family History Patient reports no known family medical history. Social History Smoking Status: Never Smoker Alcohol Use: none Drug Use: none Marital Status: Housing Status: lives with family Occupation Status: retired Allergies Coded Allergies: Celecoxib (Verified Allergy, Intermediate, HIVES, 05/02/17) Penicillins (Verified Allergy, Intermediate, HIVES, 05/02/17) Current Medications Home Meds and Scripts Medications Dose Route/Sig Max Daily Dose Days Date Category Dose Instructions Polyethylene Glycol 3350 (Polyethylene Glycol 3350 (Bulk) 1 17 Gm PO DAILY PRN 07/22/17 Reported Bisac-Evac (Bisacodyl) 10 Mg Sup 10 Mg OH DAILY PRN 07/22/17 Reported Tylenol (Acetaminophen) 500 Mg Tab 500 Mg PO Q4H PRN 07/22/17 Reported Albuterol Sulfate (Albuterol Sulf) 2.5 Mg/3 Ml Nebu 2.5 Mg INH Q4H PRN 07/22/17 Reported Lipitor (Atorvastatin Calcium) 10 Mg Tab 10 Mg PO DAILY 07/22/17 Reported Docusate Sodium 100 Mg Cap 100 Mg PO BID PRN 07/22/17 Reported Lovenox (Enoxaparin Sodium) 40 Mg/0.4 Ml Inj 40 Mg SQ DAILY 07/22/17 Reported Prozac (Fluoxetine HCl) 40 Mg Cap 40 Mg PO QAM 07/22/17 Reported Lasix (Furosemide) 40 Mg Tab 40 Mg PO BID 07/22/17 Reported Lantus (Insulin Glargine) 100 Unit/Ml Inj 30 Units SC QPM 07/22/17 Reported Protonix (Pantoprazole Sodium) 40 Mg Tab 40 Mg PO QAM 07/22/17 Reported Inderal (Propranolol HCl) 10 Mg Tab 10 Mg PO BID 07/22/17 Reported Roxicodone Ir (Oxycodone HCl) 5 Mg Tab 5 Mg PO Q4H PRN 06/17/17 Reported [facility] Gas Relief (Simethicone) 80 Mg Chw 80 Mg PO Q6 PRN 06/17/17 Reported Rocephin (Ceftriaxone Sodium) 1 Gm Inj 2 Gm IV Q12 06/17/17 Reported Zofran (Ondansetron HCl) 4 Mg Tab 4 Mg PO Q6 PRN 06/17/17 Reported Aldactone (Spironolactone) 50 Mg Tab 50 Mg PO DAILY 06/17/17 Reported Levalbuterol HCl (Levalbuterol) 1.25 Mg/3 Ml Nebu 1.25 Mg INH TID 06/17/17 Reported Prednisone 20 Mg Tab 20 Mg PO QAM 06/17/17 Reported Xifaxan (Rifaximin) 550 Mg Tab 550 Mg PO BID 06/17/17 Reported Seroquel (Quetiapine Fumarate) 25 Mg Tab 25 Mg PO HS 06/17/17 Reported Chronulac (Lactulose) 10 Gm/15 Ml Syrp 30 Ml PO TID 05/19/17 Reported Klor-Con (Potassium Chloride) 20 Meq Tabcr 20 Meq PO BIDM 05/19/17 Reported Trental (Pentoxifylline) 400 Mg Tab 400 Mg PO TID 03/13/17 Reported Novolog Penfill (Insulin Aspart) 100 Unit/Ml Inj SC AC 03/08/17 Reported SLIDING SCALE Restasis (Cyclosporine (Ophth)) 0.05 % Emu 1 Drop OPB BID 03/08/17 Reported Review of Systems 10 ROS of negative Physical Exam Date Time Temp Pulse Resp B/P (MAP) Pulse Ox O2 Delivery O2 Flow Rate FiO2 07/22/17 12:01 36.7 70 20 93/57 (69) 90 Room Air 07/22/17 08:07 36.0 73 20 91/63 (72) 97 Nasal Cannula 2.0 07/22/17 08:00 97 Nasal Cannula 1.5 07/22/17 07:27 74 16 97 Nasal Cannula 1.5 07/22/17 04:27 36.6 91 18 85/47 95 Nasal Cannula 2.0 07/22/17 04:00 37.0 88 18 80/46 95 07/22/17 03:50 89 18 82/49 94 Nasal Cannula 3.0 07/22/17 03:49 93 18 75/50 92 Nasal Cannula 3.0 07/22/17 03:35 91 18 76/48 94 Nasal Cannula 3.0 07/22/17 03:15 96 18 86/51 93 Nasal Cannula 3.0 07/22/17 03:00 96 18 86/48 95 Nasal Cannula 3.0 07/22/17 02:52 96 18 79/49 97 Nasal Cannula 3.0 07/22/17 01:45 100 90/56 94 Nasal Cannula 2.0 07/22/17 01:45 101 18 76/48 97 Nasal Cannula 2.0 07/22/17 01:30 97 18 87/58 94 Nasal Cannula 2.0 07/22/17 01:15 99 18 89/50 97 Nasal Cannula 2.0 07/22/17 00:57 92 18 88/55 97 Nasal Cannula 3.0 07/22/17 00:45 95 18 91/58 98 Nasal Cannula 2.0 07/22/17 00:30 96 18 95/62 98 Room Air 07/22/17 00:21 38.7 98 18 103/58 95 Nasal Cannula 3.0 07/22/17 00:09 108 18 89/44 07/21/17 23:41 37.6 106 18 79/51 93 Nasal Cannula 2.0 General Appearance: WD/WN, no apparent distress ENT: hearing grossly normal, pharynx normal Neck: supple, no adenopathy Respiratory/Chest: lungs clear, no respiratory distress Cardiovascular: no murmur, + pertinent finding (bilateral lower extremity edema ) Abdomen: normal bowel sounds, non tender, soft, + pertinent finding ( protuberant abdomen from ascites.) Extremities: normal range of motion, non-tender 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, no motor/sensory deficits, alert Skin: normal color, no jaundice Laboratory Results Last 24 Hours Test 07/22/17 00:18 07/22/17 00:23 07/22/17 00:27 07/22/17 06:08 White Blood Count 21.60 K/uL 12.35 K/uL Red Blood Count 3.24 M/uL 3.00 M/uL Hemoglobin 9.9 g/dL 8.7 g/dL Hematocrit 29.1 % 27.5 % Mean Corpuscular Volume 89.8 fL 91.7 fL Mean Corpuscular Hemoglobin 30.6 pg 29.0 pg Mean Corpuscular Hemoglobin Concent 34.0 g/dl 31.6 g/dl Platelet Count 111 K/uL 73 K/uL Mean Platelet Volume 11.0 fL 10.4 fL Neutrophils (%) (Auto) 91.6 % 85.2 % Lymphocytes (%) (Auto) 1.3 % 3.6 % Monocytes (%) (Auto) 4.2 % 8.6 % Eosinophils (%) (Auto) 0.6 % 0.9 % Basophils (%) (Auto) 0.1 % 0.1 % Neutrophils # (Auto) 19.79 K/uL 10.52 K/uL Lymphocytes # (Auto) 0.29 K/uL 0.45 K/uL Monocytes # (Auto) 0.90 K/uL 1.06 K/uL Eosinophils # (Auto) 0.12 K/uL 0.11 K/uL Basophils # (Auto) 0.03 K/uL 0.01 K/uL RDW Standard Deviation 58.8 fL 60.6 fL RDW Coefficient of Variation 17.9 % 18.0 % Immature Granulocyte % (Auto) 2.2 % 1.6 % Immature Granulocyte # (Auto) 0.47 K/uL 0.20 K/uL Toxic Granulation 1+ 3+ Toxic Vacuolation 1+ Ovalocytes 1+ Prothrombin Time 12.6 SECONDS 13.4 SECONDS Prothromb Time International Ratio 1.2 1.2 Activated Partial Thromboplast Time 32.9 SECONDS 38.3 SECONDS Partial Thromboplastin Ratio 1.3 1.5 Urine Color YELLOW Urine Appearance CLEAR Urine pH 6.0 Urine Specific [place] 1.014 Urine Protein TRACE Urine Glucose (UA) NEG Urine Ketones NEG Urine Occult Blood 3+ Urine Nitrite NEG Urine Bilirubin NEG Urine Urobilinogen NEG Urine Leukocyte Esterase NEG Urine WBC (Auto) 5-10 /hpf Urine RBC (Auto) >30 /hpf Urine Hyaline Casts (Auto) 1-5 /lpf Urine Epithelial Cells (Auto) 5-10 /lpf Urine Bacteria (Auto) NEG Urine Yeast (Auto) BUDDING Sodium Level 135 mmol/L 138 mmol/L Potassium Level 3.7 mmol/L 3.6 mmol/L Chloride Level 97 mmol/L 102 mmol/L Carbon Dioxide Level 30 mmol/L 30 mmol/L Anion Gap 8.0 mmol/L 19.0 mmol/L 6.0 mmol/L Blood Urea Nitrogen 26 mg/dl 23 mg/dl Creatinine 1.30 mg/dl 1.20 mg/dl Est Creatinine Clear Calc Drug Dose 62.7 ml/min 67.8 ml/min Estimated GFR () 66.8 73.6 Estimated GFR (Non- 57.7 63.5 BUN/Creatinine Ratio 19.7 19.1 Random Glucose 138 mg/dl 114 mg/dl Calcium Level 8.3 mg/dl 7.4 mg/dl Magnesium Level 1.8 mg/dl 1.7 mg/dl Total Bilirubin 1.7 mg/dl 1.3 mg/dl Direct Bilirubin 0.9 mg/dl Aspartate Amino Transf (AST/SGOT) 33 U/L 27 U/L Alanine Aminotransferase (ALT/SGPT) 30 U/L 25 U/L Alkaline Phosphatase 311 U/L 248 U/L Total Creatine Kinase 24 U/L Creatine Kinase MB 0.9 ng/ml Creatine Kinase MB Ratio 3.8 Troponin I 0.040 ng/ml Total Protein 4.7 gm/dl 4.0 gm/dl Albumin 2.1 gm/dl 1.7 gm/dl Bedside Lactic Acid Venous 2.62 mmol/L Bedside Hemoglobin 10.5 g/dl Bedside Hematocrit 31 % Bedside Sodium 134 mEq/L Bedside Potassium 3.7 mEq/L Bedside Chloride 91 mEq/L Bedside Total CO2 28 mEq/l Bedside Blood Urea Nitrogen 23 mg/dl Bedside Creatinine 1.2 mg/dl Bedside Glucose (other) 135 mg/dl Bedside Ionized Calcium (James) 1.08 mmol/l Platelet Estimate DECREASED Echinocytes 2+ Phosphorus Level 3.6 mg/dl Globulin 2.3 gm/dl Albumin/Globulin Ratio 0.7 Hepatitis C Antibody Screen NEG Test 07/22/17 06:41 07/22/17 11:40 07/22/17 12:05 Bedside Glucose 119 mg/dl 140 mg/dl White Blood Count 10.10 K/uL Red Blood Count 2.98 M/uL Hemoglobin 9.1 g/dL Hematocrit 27.3 % Mean Corpuscular Volume 91.6 fL Mean Corpuscular Hemoglobin 30.5 pg Mean Corpuscular Hemoglobin Concent 33.3 g/dl RDW Standard Deviation 61.1 fL RDW Coefficient of Variation 18.1 % Platelet Count 79 K/uL Mean Platelet Volume 10.6 fL Impression Rectal bleeding---brown stool now mixed with blood suggestive of lower colonic process--could be hemorrhoids or diverticulosis. At this point no gross blood seen. In setting of possible sepsis would avoid colonoscopy unless has ongoing brisk bleeding. follow H and H Ascites--no abd pain to suggest SBP--is on multiple abx to cover for that hepatic encephalopathy---check baseline ammonia, lactulose ordered but on Xifaxan as output so monitor ammonia levels daily cirrhosis --no complete workup done but suspect SANTOS and/or sarcoidosis elevated LFTs from cirrhosis Pancreas fluid--no abd pain to suggest pancreatis---check lipase
[2017-07-22] MEDS: VANCOMYCIN INJ 1,250 MG in SODIUM CHLORIDE 0.9% 250ML 250 ML IV SCH ×2 (13:59→23:11)
[2017-07-22 14:28] LABS: RED BLOOD COUNT 2.94 M/uL (4.7-6.1); WHITE BLOOD COUNT 8.55 K/uL (4.8-10.8)
[2017-07-22 14:29] LABS: HEMATOCRIT 27.2 % (42-52); MEAN CELL VOLUME 92.5 fL (80-100); MEAN CORPUSCULAR HEMOGLOBIN 29.6 pg (25-34)
[2017-07-22 14:41] LABS: PLATELET COUNT 81 K/uL (130-400)
[2017-07-22] MEDS: BOOST GLUCOSE CONTROL PO SCH (17:08)
[2017-07-22] MEDS: QUETIAPINE FUMARATE 25 MG TAB PO SCH (21:53)
[2017-07-22] MEDS: MAGNESIUM SULFATE 1GM / D5W 1 GM in PREMIXED IN D5W 100 ML IV SCH (22:47)
[2017-07-23] VITALS (16 sets, daily range): BP systolic 95–122; BP diastolic 63–75; PULSE 62–85; TEMP 36.1–37.7; O2SAT 91–98
[2017-07-23] MEDS: MAGNESIUM SULFATE 1GM / D5W 1 GM in PREMIXED IN D5W 100 ML IV SCH (00:07)
[2017-07-23] MEDS: LEVALBUTEROL 1.25MG/3ML NEB INH SCH ×4 (02:02→19:27)
[2017-07-23] MEDS: LEVOFLOXACIN 750MG / D5W IV SCH (02:58)
[2017-07-23] MEDS: CEFEPIME IV 2000 MG in DEXTROSE 5% 100ML IV SCH ×3 (02:58→16:54)
[2017-07-23 06:52] LABS: HEMATOCRIT 25.6 % (42-52); MEAN CELL VOLUME 91.1 fL (80-100); MEAN CORPUSCULAR HEMOGLOBIN 30.6 pg (25-34); MEAN CORPUSCULAR HGB CONC 33.6 g/dl (32-36); RED BLOOD COUNT 2.81 M/uL (4.7-6.1); WHITE BLOOD COUNT 6.09 K/uL (4.8-10.8)
--- NOTE | 2017-07-23 06:58 | Progress Note ---
Progress Note Date of Service Jul 23, 2017. Progress Note ID Consult Dictated #[id number] A/P: 1. Fever, h/o infected hardware -Continue abx, follow cultures -Will follow, thank you
[2017-07-23 07:26] LABS: BUN/CREATININE RATIO 22.1 (10-20); CALCIUM 7.7 mg/dl (8.5-10.1); MAGNESIUM 2.3 mg/dl (1.8-2.4); POTASSIUM 3.5 mmol/L (3.5-5.1)
[2017-07-23 07:29] LABS: ALB/GLOB RATIO 0.7 (0.9-2); PHOSPHORUS 3.2 mg/dl (2.5-4.9)
[2017-07-23 07:31] LABS: MEAN PLATELET VOLUME 11.2 fL (7.4-10.4); PLATELET COUNT 76 K/uL (130-400)
[2017-07-23 07:32] LABS: BASO % 0.2 %; BASO ABS # 0.01 K/uL (0-0.2); COMPLETE YES; ECHINOCYTES 1+; EOS % 3.3 %; IG% 0.8 %; LYMPH % 7.7 %; LYMPH ABS # 0.47 K/uL (1.2-3.4); MONO % 12.2 %; NEUT % 75.8 %; TOXIC GRANULATION 2+
[2017-07-23] MEDS: RESTASIS~ORDER AWAITING ACTION SCH ×4 (08:00→23:11)
[2017-07-23] MEDS: PROPRANOLOL HCL 10 MG TAB PO SCH ×2 (08:16→21:08)
[2017-07-23] MEDS: BOOST GLUCOSE CONTROL PO SCH ×3 (08:16→16:54)
[2017-07-23] MEDS: PANTOprazole SOD 40 MG TAB PO SCH (08:18)
[2017-07-23] MEDS: LACTULOSE SYRUP 20 GM/30 ML UDC PO SCH ×3 (08:18→21:08)
[2017-07-23] MEDS: ATORVASTATIN 10 MG TAB PO SCH (08:18)
[2017-07-23] MEDS: ONDANSETRON INJ 8 MG in DEXTROSE 5% 50ML 50 ML IV PRN ×2 (08:18→18:33)
[2017-07-23] MEDS: SPIRONOLACTONE 100 MG TAB PO SCH (08:19)
[2017-07-23] MEDS: FLUOXETINE HCL 20 MG CAP PO SCH (08:19)
[2017-07-23] MEDS: FUROSEMIDE 40 MG TAB PO SCH ×2 (08:19→16:55)
[2017-07-23] MEDS: INSULIN ASPART 100 UNITS/ML 3 ML PEN SC SCH ×4 (08:22→21:09)
[2017-07-23] MEDS: INSULIN GLARGINE SOLOSTAR 100 UNITS/ML 3 ML PEN SC SCH ×2 (08:22→21:09)
[2017-07-23] MEDS: VANCOMYCIN INJ 1,250 MG in SODIUM CHLORIDE 0.9% 250ML 250 ML IV SCH ×2 (12:18→22:39)
[2017-07-23] MEDS: OXYCODONE HCL IR 5 MG TAB (IMMEDIATE RELEASE) PO PRN ×2 (14:55→19:15)
--- NOTE | 2017-07-23 14:57 | Gastroenterology Progress Note ---
Progress Note Date of Service: Jul 23, 2017 Subjective Pt evaluation today including: conversation w/ patient, physical exam, chart review, lab review, review of studies, review of inpatient medication list CC f/u rectal bleeding HPI Pt states has some crampy mild abd discomfort. Per nursing care trend and patient no further rectal bleeding noted. Review of Systems Respiratory: No shortness of breath Cardiac: No chest pain Medications Current Inpatient Medications Medications (Trade) Dose Ordered Sig/Nathalia Route Start Time Stop Time Status Last Admin Dose Admin Ioversol (Optiray 320) 125 ml UD PRN IV 07/22/17 00:15 07/26/17 00:14 Acetaminophen (Tylenol Tab) 650 mg Q4H PRN PO 07/22/17 02:30 08/21/17 02:29 Atorvastatin Calcium (Lipitor Tab) 10 mg DAILY PO 07/22/17 09:00 08/21/17 08:59 07/23/17 08:18 10 MG Fluoxetine HCl (Prozac Cap) 40 mg QAM PO 07/22/17 09:00 08/21/17 08:59 07/23/17 08:19 40 MG Pantoprazole Sodium (Protonix Tab) 40 mg QAM PO 07/22/17 09:00 08/21/17 08:59 07/23/17 08:18 40 MG Prednisone (PredniSONE TAB) 20 mg QAM PO 07/22/17 09:00 08/21/17 08:59 07/23/17 08:18 20 MG Propranolol HCl (Inderal Tab) 10 mg BID PO 07/22/17 09:00 08/21/17 08:59 07/23/17 08:16 10 MG Quetiapine Fumarate (seroQUEL TAB) 25 mg HS PO 07/22/17 21:00 08/21/17 20:59 07/22/17 21:53 25 MG Spironolactone (Aldactone Tab) 50 mg DAILY PO 07/22/17 09:00 08/21/17 08:59 07/23/17 08:19 50 MG Miscellaneous Information (Order Awaiting Action) 1 ea QS N/A 07/22/17 08:00 08/21/17 07:59 Levalbuterol (Xopenex 1.25MG/ 3ML Neb) 1.25 mg Q6R INH 07/22/17 03:00 08/21/17 02:59 07/23/17 14:03 1.25 MG Insulin Glargine (Lantus Solostar Pen) 10 units BID SC 07/22/17 09:00 08/21/17 08:59 07/23/17 08:22 10 UNITS Insulin Aspart (novoLOG ASPART) SLIDING SCALE G... ACHS SC 07/22/17 07:00 08/21/17 06:59 07/23/17 12:20 10 UNITS Lactulose (Chronulac Syrup) 20 gm TID PO 07/22/17 09:00 08/21/17 08:59 07/22/17 13:59 20 GM Oxycodone HCl (Roxicodone Immediate Rel Tab) 5 mg Q4H PRN PO 07/22/17 02:45 08/05/17 02:44 07/22/17 19:22 5 MG Ondansetron HCl 8 mg/Dextrose 54 ml @ 200 mls/hr Q4H PRN IV 07/22/17 03:00 08/21/17 02:59 07/23/17 08:18 200 MLS/HR Glucose (Glucose 40% Gel) 15-30 GRAMS 15 GRAMS... UD PRN PO 07/22/17 03:15 08/21/17 03:14 Glucose (Glucose Chew Tab) 4-8 Tablets 4 Tabl... UD PRN PO 07/22/17 03:15 08/21/17 03:14 Dextrose (Dextrose 50% 50ML Syringe) 25-50ML OF 50% DW IV FOR... UD PRN IV 07/22/17 03:15 08/21/17 03:14 Glucagon (Glucagon Inj) 1 mg UD PRN SQ 07/22/17 03:15 08/21/17 03:14 Cefepime HCl (Consult) 1 ea UD PRN N/A 07/22/17 04:00 08/21/17 03:59 Levofloxacin (Consult) 1 ea UD PRN N/A 07/22/17 04:00 08/21/17 03:59 Vancomycin HCl (Consult) 1 ea UD PRN N/A 07/22/17 04:00 08/21/17 03:59 Levofloxacin 750 mg/Prmx 150 ml @ 100 mls/hr Q24H IV 07/23/17 02:00 07/30/17 01:59 07/23/17 02:58 100 MLS/HR Cefepime HCl 2000 mg/Dextrose 112.5 ml @ 225 mls/hr Q8H IV 07/22/17 10:00 07/29/17 09:59 07/23/17 10:05 225 MLS/HR Furosemide (Lasix Tab) 40 mg BIDM PO 07/22/17 07:30 08/21/17 07:29 07/23/17 08:19 40 MG Vancomycin HCl 1250 mg/Sodium Chloride 275 ml @ 125 mls/hr Q12H IV 07/22/17 11:00 07/29/17 10:59 07/23/17 12:18 125 MLS/HR Enteral Nutritional Formula (Boost Glucose Control) 1 can TIDM PO 07/22/17 16:45 08/21/17 16:44 07/23/17 12:17 1 CAN Objective Vital Signs Date Time Temp Pulse Resp B/P (MAP) Pulse Ox O2 Delivery O2 Flow Rate FiO2 07/23/17 14:03 78 16 91 Nasal Cannula 2.0 07/23/17 12:00 97 Nasal Cannula 2.0 07/23/17 11:54 37.0 78 20 104/66 (79) 96 Room Air 07/23/17 08:03 36.5 72 24 95/63 (74) 91 Nasal Cannula 2.0 07/23/17 08:00 97 Nasal Cannula 2.0 07/23/17 07:14 71 16 96 Nasal Cannula 2.0 07/23/17 04:46 36.1 62 18 100/63 (75) 97 Nasal Cannula 2.0 07/23/17 04:05 98 Nasal Cannula 1.5 07/23/17 02:02 67 14 97 Nasal Cannula 2.0 07/23/17 00:16 98 Nasal Cannula 1.5 07/22/17 23:17 36.5 76 18 110/63 (79) 97 Nasal Cannula 2.0 07/22/17 20:16 98 Nasal Cannula 1.5 07/22/17 19:03 72 16 97 Nasal Cannula 2.0 07/22/17 18:46 36.3 71 18 103/66 (78) 98 Nasal Cannula 2.0 07/22/17 16:00 98 Nasal Cannula 1.5 07/22/17 15:19 36.4 75 18 98/63 (75) 94 Room Air Physical Exam General Appearance: WD/WN, no apparent distress Respiratory/Chest: normal breath sounds Cardiovascular: + pertinent finding (bilateral lower extremity edema) Abdomen: normal bowel sounds, non tender, soft, + pertinent finding ( protuberant likely from ascites) Laboratory Results Last 24 Hours Test 07/22/17 16:59 07/22/17 20:03 07/23/17 06:32 07/23/17 06:33 Bedside Glucose 259 mg/dl 231 mg/dl 164 mg/dl White Blood Count 6.09 K/uL Red Blood Count 2.81 M/uL Hemoglobin 8.6 g/dL Hematocrit 25.6 % Mean Corpuscular Volume 91.1 fL Mean Corpuscular Hemoglobin 30.6 pg Mean Corpuscular Hemoglobin Concent 33.6 g/dl Platelet Count 76 K/uL Mean Platelet Volume 11.2 fL Neutrophils (%) (Auto) 75.8 % Lymphocytes (%) (Auto) 7.7 % Monocytes (%) (Auto) 12.2 % Eosinophils (%) (Auto) 3.3 % Basophils (%) (Auto) 0.2 % Neutrophils # (Auto) 4.62 K/uL Lymphocytes # (Auto) 0.47 K/uL Monocytes # (Auto) 0.74 K/uL Eosinophils # (Auto) 0.20 K/uL Basophils # (Auto) 0.01 K/uL RDW Standard Deviation 59.1 fL RDW Coefficient of Variation 17.8 % Immature Granulocyte % (Auto) 0.8 % Immature Granulocyte # (Auto) 0.05 K/uL Toxic Granulation 2+ Echinocytes 1+ Sodium Level 138 mmol/L Potassium Level 3.5 mmol/L Chloride Level 103 mmol/L Carbon Dioxide Level 29 mmol/L Anion Gap 6.0 mmol/L Blood Urea Nitrogen 22 mg/dl Creatinine 1.00 mg/dl Est Creatinine Clear Calc Drug Dose 81.3 ml/min Estimated GFR () 91.8 Estimated GFR (Non- 79.2 BUN/Creatinine Ratio 22.1 Random Glucose 153 mg/dl Calcium Level 7.7 mg/dl Phosphorus Level 3.2 mg/dl Magnesium Level 2.3 mg/dl Total Bilirubin 1.0 mg/dl Aspartate Amino Transf (AST/SGOT) 26 U/L Alanine Aminotransferase (ALT/SGPT) 25 U/L Alkaline Phosphatase 266 U/L Ammonia 29.0 umol/L Total Protein 4.0 gm/dl Albumin 1.7 gm/dl Globulin 2.3 gm/dl Albumin/Globulin Ratio 0.7 Test 07/23/17 10:47 Bedside Glucose 199 mg/dl Assessment and Plan Rectal bleeding---brown stool only at this point suggestive of local process such as hemorrhoidal bleeding. In setting of possible sepsis would avoid colonoscopy unless has ongoing brisk bleeding. follow H and H--stable Ascites--no significant abd pain to suggest SBP--is on multiple abx to cover for that--await ID note, if no other source of infection found then paracentesis by radiology could be ordered. hepatic encephalopathy---ammonia 29 today lactulose ordered but on Xifaxan as output so monitor ammonia levels daily cirrhosis --no complete workup done but suspect SANTOS and/or sarcoidosis elevated LFTs from cirrhosis Pancreas --fluid suroundin on CT-no abd pain to suggest pancreatis--- lipase 07/22 normal--doubt pancreatitis. Addendum: Fabio Osborne M.D. on 07/22/17 @ 21:31 Addendum Section Ammonia and lipase normal from earlier today.
--- NOTE | 2017-07-23 15:18 | INFECT. DISEASE CONSULTATION ---
DATE OF CONSULTATION: 07/23/2017 REQUESTING PHYSICIAN: Dr. Lui. HISTORY OF PRESENT ILLNESS: This is a 62-year-old gentleman who was recently seen by infectious diseases in April of this year. 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 Previous culture grew coagulase negative staph. He was on long-term antibiotics for this and was readmitted in April with fevers. At that time, he was found to have a Klebsiella pneumonia and his urinary tract infection and bloodstream infection as well. At that time, he was transferred to [facility]. He had been there for a prolonged period of time and was just discharged 2 days ago. He was admitted to [facility] and then subsequently transferred to the ER for rectal bleeding. He is being followed by GI. He denies any back pain at this time. He states he remains on multiple antibiotics unable to tell me what he has been on most recently. He denies any fevers or chills. He did have a white blood cell count of 21 upon admission, but this is improved to 8 this morning. His urinalysis had only 5-10 wbc's. His C. diff was checked and is pending. PROSPER is negative. He did have a CAT scan of the abdomen which did show questionable right lower lobe pneumonia versus atelectasis. He was placed on Levaquin, vancomycin and cefepime. He did have an isolated fever of 38.7. He states he is feeling significantly better this morning. He denies any cough, chest pain, shortness of breath, nausea, vomiting or diarrhea. He denies any rectal pain. He states his appetite is stable. He denies any back pain. He has no urinary symptoms. All remaining review of systems is reviewed and is unremarkable. PAST MEDICAL HISTORY: Significant for sarcoidosis with extra pulmonary manifestations, he is on chronic steroids for this; L4-L5 disc disease with multiple surgeries complicated by infection with osteomyelitis and abscess, ASD was repaired in 2014, obstructive sleep apnea on CPAP, type 2 diabetes, peripheral neuropathy, cirrhosis of the liver, history of GI bleed, and hypertension. PAST SURGICAL HISTORY: Significant for multiple lumbar surgeries and ASD repair, tonsillectomy, knee surgery, inguinal repair, carpal tunnel release, and cataract surgery. FAMILY HISTORY: Noncontributory. SOCIAL HISTORY: Negative for tobacco use, drug use or alcohol use. He currently has been hospitalized for a prolonged period of time. ALLERGIES: HE HAS ALLERGIES TO PENICILLIN AND CELEBREX. CURRENT MEDICATIONS: Include Levaquin, Seroquel, vancomycin, cefepime, Lipitor, Prozac, Protonix, prednisone, Inderal, Aldactone, Lantus, Lasix, Xopenex, Zofran, Roxicodone, and Tylenol. PHYSICAL EXAMINATION: VITAL SIGNS: He is currently afebrile, pulse 62, respiratory rate is 18, blood pressure is 100/63, and oxygen saturation is 97-98%. GENERAL: He is awake, alert and oriented x3 on my exam. HEENT: His mucous membranes are moist. Extraocular muscles are intact. HEART: Regular. LUNGS: Clear bilaterally with decreased breath sounds at the bases. ABDOMEN: Soft, nontender, nondistended. There is no edema. LABORATORY STUDIES: CBC yesterday reveals a white blood cell count of 8.5, hemoglobin 8.7, platelets are 81. Chemistry panel yesterday afternoon - sodium 138, potassium 3.6, chloride 102, bicarbonate 30, BUN 23, creatinine 1.2, glucose is 140. LFTs are within normal limits. Lipase was 326. Urinalysis again had only 5-10 wbc's, sepsis screen is negative, C. diff is negative. Blood cultures and urine cultures are pending. IMAGING: As above. ASSESSMENT AND PLAN: Fever. Certainly, I would keep this patient on broad spectrum antibiotics pending blood cultures with his past history of infected hardware. The Clostridium difficile is negative. We will follow along with you. Thank you for this consultation. MABIKA
--- NOTE | 2017-07-23 20:36 | Progress Note ---
Progress Note Date of Service Jul 23, 2017. Progress Note 62-year-old male admitted from the rehabilitation hospital. He was admitted there 2 days prior to his transfer to the emergency room. He was sent to the emergency room because of rectal bleeding and fever. He has an extensive medical history. Since February of this year he has had a total of 7 surgical intervention. The first one was for treatment of a large herniation of L4-L5 disc. He developed multiple complications after the surgery with abscess, osteomyelitis, loosening of the hardware, collapse of L4. His surgeries were done both here and at [facility].he also has sarcoidosis, type 2 diabetes mellitus, sleep apnea,atrial septal defect which was repaired, depression, liver cirrhosis, chronic thrombocytopenia. Patient was admitted. All cultures were done. He was started on triple IV antibiotics with vancomycin, cefepime, and Levaquin. He seems to be doing well. His rectal bleeding subsided. After the initial drop of his hemoglobin it has been stable. He has not required any transfusions. He was seen in GI consultation by Dr. Fabio Osborne. He was also seen in infectious disease consultation by Dr. Chen. His mental status is back to his baseline. He denied any headache no dizziness no lightheadedness. No chest pain no shortness of breath. His abdomen is distended. He has ascites. There is also some seepage from the incision left side of his abdomen. His back pain seems to be under control. He does have swelling of both legs. Also swelling of the penis and the scrotum. EXAMINATION: GENERAL : Well developed. Well nourished. No acute distress. VITAL SIGNS : Blood Pressure : 95/63, respiration 24, pulse 72, temperature 36.5 , oxygen saturation 91% on 2 L oxygen by nasal cannula. SKIN : Warm and dry. No rash.No jaundice HEENT :Facial swelling related to his chronic prednisone therapy NECK : Supple. No adenopathy. No thyromegaly. No JVD. Normal carotid pulses. No carotid bruit. HEART: Regular heart tones with 2/6 systolic murmur. No rub no gallop. LUNG: Decreased breath sounds. No wheezing no rhonchi. ABDOMEN: Soft. Distended. Ascites. Significant seepage of clear fluid from his incision on the left side. The fluid coming how it is consistent with his ascites. BACK: Surgical scar. EXTREMITIES: bilateral leg edema. No clubbing no cyanosis. GENITALIA: Edema of the scrotum and the penis LABORATORY TESTS: WBC count 6090, hemoglobin 8.6, hematocrit 25.6, platelet count 76,000. Sodium 138, potassium 3.5, chloride 103, CO2 29, BUN 22, creatinine 1.0, glucose 153, calcium 7.7, phosphorus 3.2, magnesium 2.3, total bilirubin 1.0, AST 26, ALT 25, aspirin phosphatase 266, total protein 4.0, albumin 1.7 So far all his cultures have been negative ASSESSMENT: * rectal bleed. Seems to have subsided. * Recurrent fever. 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 * Because of the edema and the seepage from his abdominal incision I did discontinue his IV fluid. * Continuing with his therapies * We'll await for the final culture results. Decide on continuation of his antibiotics and the choice of his antibiotics. Obviously I will leave that up to Dr. Chen * I anticipate that we will need to schedule both a diagnostic and therapeutic paracentesis. * I will check his coagulation parameters tomorrow.
[2017-07-23] MEDS: QUETIAPINE FUMARATE 25 MG TAB PO SCH (21:08)
[2017-07-24] VITALS (11 sets, daily range): BP systolic 94–109; BP diastolic 56–69; PULSE 70–83; TEMP 36.6–37.3; O2SAT 94–99
[2017-07-24] MEDS: LEVOFLOXACIN 750MG / D5W IV SCH (01:18)
[2017-07-24] MEDS: CEFEPIME IV 2000 MG in DEXTROSE 5% 100ML IV SCH ×3 (01:18→17:35)
[2017-07-24] MEDS: LEVALBUTEROL 1.25MG/3ML NEB INH SCH ×4 (01:52→20:13)
[2017-07-24 06:11] LABS: HEMATOCRIT 26.4 % (42-52); MEAN CELL VOLUME 90.4 fL (80-100); MEAN CORPUSCULAR HEMOGLOBIN 29.8 pg (25-34); RED BLOOD COUNT 2.92 M/uL (4.7-6.1)
[2017-07-24 06:18] LABS: MEAN PLATELET VOLUME 11.9 fL (7.4-10.4); PLATELET COUNT 74 K/uL (130-400)
[2017-07-24] MEDS: OXYCODONE HCL IR 5 MG TAB (IMMEDIATE RELEASE) PO PRN ×3 (06:29→19:50)
[2017-07-24 06:37] LABS: BASO % 0.2 %; BASO ABS # 0.01 K/uL (0-0.2); COMPLETE YES; ECHINOCYTES 1+; EOS % 0.8 %; IG% 0.6 %; LYMPH % 14.2 %; LYMPH ABS # 0.75 K/uL (1.2-3.4); MONO % 1.7 %; NEUT % 82.5 %; POLYCHROMASIA 1+
[2017-07-24 06:43] LABS: BUN/CREATININE RATIO 20.7 (10-20); CALCIUM 7.4 mg/dl (8.5-10.1); CREATININE 1.1 mg/dl (0.60-1.40); POTASSIUM 3.5 mmol/L (3.5-5.1)
[2017-07-24 06:46] LABS: ALB/GLOB RATIO 0.7 (0.9-2); PHOSPHORUS 2.8 mg/dl (2.5-4.9)
[2017-07-24] MEDS: FUROSEMIDE 40 MG TAB PO SCH ×2 (07:48→16:01)
[2017-07-24] MEDS: INSULIN ASPART 100 UNITS/ML 3 ML PEN SC SCH ×4 (07:49→22:18)
[2017-07-24] MEDS: INSULIN GLARGINE SOLOSTAR 100 UNITS/ML 3 ML PEN SC SCH ×2 (07:49→22:17)
[2017-07-24] MEDS: ATORVASTATIN 10 MG TAB PO SCH (07:50)
[2017-07-24] MEDS: PANTOprazole SOD 40 MG TAB PO SCH (07:51)
[2017-07-24] MEDS: FLUOXETINE HCL 20 MG CAP PO SCH (07:51)
[2017-07-24] MEDS: LACTULOSE SYRUP 20 GM/30 ML UDC PO SCH ×3 (07:51→22:15)
[2017-07-24] MEDS: SPIRONOLACTONE 100 MG TAB PO SCH (07:51)
[2017-07-24] MEDS: PROPRANOLOL HCL 10 MG TAB PO SCH ×2 (07:52→22:16)
[2017-07-24] MEDS: RESTASIS~ORDER AWAITING ACTION SCH ×2 (08:00→15:55)
[2017-07-24] MEDS: BOOST GLUCOSE CONTROL PO SCH ×3 (08:04→15:59)
[2017-07-24] MEDS ORDERED: VANCOMYCIN TROUGH SCH (10:30)
[2017-07-24] MEDS: VANCOMYCIN INJ 1,250 MG in SODIUM CHLORIDE 0.9% 250ML 250 ML IV SCH (10:57)
[2017-07-24] MEDS ORDERED: FUROSEMIDE INJ 40 MG in SYRINGE 0 ML IV ONE (11:15)
--- NOTE | 2017-07-24 11:33 | Progress Note ---
Progress Note Date of Service Jul 24, 2017. Progress Note 62-year-old male admitted from the rehabilitation hospital with multiple problems including rectal bleeding, recurrent fever, suspected sepsis. His medical history is quite extensive. Since February of this year he has had multiple surgeries on his lumbar spine. He initially presented with a herniated L4-L5 disc with severe compromise of the exiting nerve root. He had his first surgery but unfortunately developed multiple infectious complications after that including abscess, osteomyelitis, loosening of the hardware, collapse of the fourth lumbar vertebra. He has had multiple surgeries both at our hospital and at [facility]. He has not had any recurrent fever. His WBC count normalized. At this time his rectal bleeding seems to have resolved. His hemoglobin has stabilized. He has not had any fever. All his cultures remain negative. He does have large ascites. He has seepage of ascites fluid from his abdominal incision on the left side. He does have severe swelling in both legs and also in his penis and scrotum. He denied any headache no dizziness no lightheadedness. No chest pain. No shortness of breath. No abdominal pain no nausea no vomiting. He is tolerating his diet. He is having bowel movements. No evidence of any blood. Not having any problem urinating. EXAMINATION: He is well-developed. No distress. Vital signs blood pressure 98/64, pulse 70, respiration 22, temperature 36.9, oxygen saturation 96% on 3 L oxygen by nasal cannula Skin is warm and dry. No rash. No evidence of any jaundice HEENT: Oxygen cannula in place. No mucosal abnormality Neck is supple without lymph node or thyroid enlargement. No JVD Heart regular heart sounds with 2/6 systolic murmur Lungs are clear. Abdomen is markedly distended. Large ascites. Nontender. Incision left side of his abdomen which is seeping large amount of ascitic fluid. Back his incision is healing very well. Extremities: Bilateral leg edema. Severe. No clubbing no cyanosis. Genitalia: He does have significant edema of his scrotum and penis LABORATORY TESTS: WBC count 5300, hemoglobin 8.7, hematocrit 26.4, platelet count 74,000. Sodium 133, potassium 3.5, chloride 99, CO2 30, BUN 23, creatinine 1.1, glucose at 210, calcium 7.4, phosphorus 2.8, magnesium 2.0, total bilirubin 1.1, AST 30 , AST 26, alkaline phosphatase 274. ASSESSMENT * Rectal bleeding. Most likely lower source. Resolved. * Recurrent fever. * Lumbar spinal pathology with herniated disc and multiple infectious complications * Sarcoidosis * Type 2 diabetes mellitus * Sleep apnea * Liver cirrhosis * Large ascites * History of atrial septal defect which was repaired PLAN: * Was given 1 dose of IV Lasix in addition to his oral dose. Continue Aldactone. * Paracentesis under ultrasound guidance was ordered. Ascites fluid analysis ordered. Cultures ordered. * Continue his other medications unchanged * He is still on triple antibiotic with vancomycin, Levaquin, and cefepime. * Continue with his therapies * Eventually the plan is for him to go back to the rehabilitation hospital. Dr. Chen will decide on his antibiotic therapy. * I will call his physicians at [facility] tomorrow just to give them an update. He was scheduled to be seen in vascular service tomorrow.
--- NOTE | 2017-07-24 11:43 | Pharmacy Progress Note ---
Pharmacy Abx Dose Progress Nt Date of Service Jul 24, 2017. Pharmacy Dosing Scope The patient is currently receiving the following antimicrobial agents per Pharmacy consult: Vancomycin 1250 mg IV every 12 hours Levaquin 750mg IV Q24H Cefepime 2g IV Q8H Objective Height (Feet): 5 Height (Inches): 7.00 Weight (Kilograms): 95.500 Vital Signs (Past 12Hrs) Vital Signs Past 12 Hours Date Time Temp Pulse Resp B/P (MAP) Pulse Ox O2 Delivery O2 Flow Rate FiO2 07/24/17 08:00 Nasal Cannula 3.0 07/24/17 07:34 36.9 70 22 98/64 (75) 96 Nasal Cannula 3.0 07/24/17 04:00 98 Nasal Cannula 3.0 07/24/17 04:00 37.0 74 18 94/56 (69) 98 Nasal Cannula 3.0 07/24/17 01:53 76 20 96 Nasal Cannula 2.0 07/24/17 00:00 37.3 83 20 105/63 (77) 94 Nasal Cannula 2.0 07/23/17 23:59 94 Nasal Cannula 3.0 Lab Results (24Hrs) Laboratory Tests (24 Hours) Item Value Date Time Vancomycin Level Trough 34.4 mcg/ml 07/24/17 1033 Test 07/24/17 06:01 White Blood Count 5.30 K/uL (4.8-10.8) Red Blood Count 2.92 M/uL (4.7-6.1) L Hemoglobin 8.7 g/dL (14.0-18.0) L Hematocrit 26.4 % (42-52) L Mean Corpuscular Volume 90.4 fL (80-100) Mean Corpuscular Hemoglobin 29.8 pg (25-34) Mean Corpuscular Hemoglobin Concent 33.0 g/dl (32-36) Platelet Count 74 K/uL (130-400) L Mean Platelet Volume 11.9 fL (7.4-10.4) H Neutrophils (%) (Auto) 82.5 % Lymphocytes (%) (Auto) 14.2 % Monocytes (%) (Auto) 1.7 % Eosinophils (%) (Auto) 0.8 % Basophils (%) (Auto) 0.2 % Neutrophils # (Auto) 4.38 K/uL (1.4-6.5) Lymphocytes # (Auto) 0.75 K/uL (1.2-3.4) L Monocytes # (Auto) 0.09 K/uL (0.11-0.59) L Eosinophils # (Auto) 0.04 K/uL (0-0.5) Basophils # (Auto) 0.01 K/uL (0-0.2) Micro Results Date/Time Source Procedure Growth Status 07/22/17 00:34 Blood Blood Culture - Preliminary NO GROWTH TO DATE. Resulted 07/22/17 00:18 Blood Blood Culture - Preliminary NO GROWTH TO DATE. Resulted 07/22/17 04:55 Nasal MRSA DNA Surveillance Screen - Final Specimen Negative for MRSA by DNA Probe Complete 07/22/17 03:28 Stool C.difficile Toxin B Gene (PCR) - Final No C. difficile toxin B gene detected Complete 07/22/17 03:28 Stool Shiga Toxin Test - Preliminary Resulted 07/22/17 03:28 Stool Stool Culture - Preliminary NO SALMONELLA ISOLATED TO DATE,... Resulted 07/22/17 00:18 Urine , Clean Catch Urine Culture - Final Christina Glabrata (T. Glabrata) Complete Risk Factors for Resistance * Resident in a intermediate or extended-care facility * Hospitalization for 48 hours or more within the past 90 days * Immunocompromised (chronic steroid therapy) * Previously infected lumbar hardware * Antimicrobial use within the last 90 days Vancomycin, Daptomycin, Rocephin, Rifampin Assessment & Plan Assessment 62 year old male receiving IV Vancomycin, Levaquin, Cefepime for treatment of sepsis, pulmonary source possible? ID consulted, continuing antibiotics until cultures finalized as patient has had previously infected lumbar hardware. Day # 3 of antimicrobial therapy Plan Vancomycin IV * Trough level of 34.4 mcg/mL is supratherapeutic. * Change to Vancomycin 1250 mg IV every 18 hours, will start this 24 hours after the last dose given * Goal trough level for sepsis/pneumonia/ ?infected hardware? : 15 to 20 mcg/mL , closer to 20mcg/mL * Trough level ordered for: 07/26/17 prior to 0400 dose * Less than traditional dose selected due to likelihood of drug accumulation in obese patient (13mg/kg dose for BMI 33kg/m2) Levaquin 750mg IV Q24H * Continue for CrCl > 50ml/min Cefepime 2g IV Q8H * Continue for CrCl > 60ml/min Pharmacy will continue to follow and will adjust dose/frequency as necessary. Thank you.
--- NOTE | 2017-07-24 15:07 | Gastroenterology Progress Note ---
Progress Note Date of Service: Jul 24, 2017 Subjective Pt evaluation today including: conversation w/ patient, physical exam, chart review, lab review, review of studies, review of inpatient medication list cc F/u GI bleeding, ascites HPI Pt has some abdominal discomfort. Complains of nausea today. Paracentesis has been ordered by DR Lambert. No mention in nursing notes of rectal bleeding. Most recent stool recorded was today at 0600 brown. Review of Systems Respiratory: No shortness of breath Cardiac: No chest pain Medications Current Inpatient Medications Medications (Trade) Dose Ordered Sig/Nathalia Route Start Time Stop Time Status Last Admin Dose Admin Ioversol (Optiray 320) 125 ml UD PRN IV 07/22/17 00:15 07/26/17 00:14 Acetaminophen (Tylenol Tab) 650 mg Q4H PRN PO 07/22/17 02:30 08/21/17 02:29 Atorvastatin Calcium (Lipitor Tab) 10 mg DAILY PO 07/22/17 09:00 08/21/17 08:59 07/24/17 07:50 10 MG Fluoxetine HCl (Prozac Cap) 40 mg QAM PO 07/22/17 09:00 08/21/17 08:59 07/24/17 07:51 40 MG Pantoprazole Sodium (Protonix Tab) 40 mg QAM PO 07/22/17 09:00 08/21/17 08:59 07/24/17 07:51 40 MG Prednisone (PredniSONE TAB) 20 mg QAM PO 07/22/17 09:00 08/21/17 08:59 07/24/17 07:51 20 MG Propranolol HCl (Inderal Tab) 10 mg BID PO 07/22/17 09:00 08/21/17 08:59 07/24/17 07:52 10 MG Quetiapine Fumarate (seroQUEL TAB) 25 mg HS PO 07/22/17 21:00 08/21/17 20:59 07/23/17 21:08 25 MG Spironolactone (Aldactone Tab) 50 mg DAILY PO 07/22/17 09:00 08/21/17 08:59 07/24/17 07:51 50 MG Miscellaneous Information (Order Awaiting Action) 1 ea QS N/A 07/22/17 08:00 08/21/17 07:59 Levalbuterol (Xopenex 1.25MG/ 3ML Neb) 1.25 mg Q6R INH 07/22/17 03:00 08/21/17 02:59 07/24/17 14:27 1.25 MG Insulin Glargine (Lantus Solostar Pen) 10 units BID SC 07/22/17 09:00 08/21/17 08:59 07/24/17 07:49 10 UNITS Insulin Aspart (novoLOG ASPART) SLIDING SCALE G... ACHS SC 07/22/17 07:00 08/21/17 06:59 07/24/17 11:58 9 UNITS Lactulose (Chronulac Syrup) 20 gm TID PO 07/22/17 09:00 08/21/17 08:59 07/24/17 14:16 20 GM Oxycodone HCl (Roxicodone Immediate Rel Tab) 5 mg Q4H PRN PO 07/22/17 02:45 08/05/17 02:44 07/24/17 06:29 5 MG Ondansetron HCl 8 mg/Dextrose 54 ml @ 200 mls/hr Q4H PRN IV 07/22/17 03:00 08/21/17 02:59 07/23/17 18:33 200 MLS/HR Glucose (Glucose 40% Gel) 15-30 GRAMS 15 GRAMS... UD PRN PO 07/22/17 03:15 08/21/17 03:14 Glucose (Glucose Chew Tab) 4-8 Tablets 4 Tabl... UD PRN PO 07/22/17 03:15 08/21/17 03:14 Dextrose (Dextrose 50% 50ML Syringe) 25-50ML OF 50% DW IV FOR... UD PRN IV 07/22/17 03:15 08/21/17 03:14 Glucagon (Glucagon Inj) 1 mg UD PRN SQ 07/22/17 03:15 08/21/17 03:14 Cefepime HCl (Consult) 1 ea UD PRN N/A 07/22/17 04:00 08/21/17 03:59 Levofloxacin (Consult) 1 ea UD PRN N/A 07/22/17 04:00 08/21/17 03:59 Vancomycin HCl (Consult) 1 ea UD PRN N/A 07/22/17 04:00 08/21/17 03:59 Levofloxacin 750 mg/Prmx 150 ml @ 100 mls/hr Q24H IV 07/23/17 02:00 07/30/17 01:59 07/24/17 01:18 100 MLS/HR Cefepime HCl 2000 mg/Dextrose 112.5 ml @ 225 mls/hr Q8H IV 07/22/17 10:00 07/29/17 09:59 07/24/17 09:55 225 MLS/HR Furosemide (Lasix Tab) 40 mg BIDM PO 07/22/17 07:30 08/21/17 07:29 07/24/17 07:48 40 MG Enteral Nutritional Formula (Boost Glucose Control) 1 can TIDM PO 07/22/17 16:45 08/21/17 16:44 07/24/17 11:51 1 CAN Vancomycin HCl 1250 mg/Sodium Chloride 275 ml @ 125 mls/hr Q18H IV 07/25/17 10:00 07/31/17 23:59 Objective Vital Signs Date Time Temp Pulse Resp B/P (MAP) Pulse Ox O2 Delivery O2 Flow Rate FiO2 07/24/17 14:27 73 16 96 Nasal Cannula 3.0 07/24/17 12:00 Nasal Cannula 3.0 07/24/17 11:50 36.6 71 20 109/69 (82) 99 Nasal Cannula 3.0 07/24/17 08:00 Nasal Cannula 3.0 07/24/17 07:34 36.9 70 22 98/64 (75) 96 Nasal Cannula 3.0 07/24/17 04:00 98 Nasal Cannula 3.0 07/24/17 04:00 37.0 74 18 94/56 (69) 98 Nasal Cannula 3.0 07/24/17 01:53 76 20 96 Nasal Cannula 2.0 07/24/17 00:00 37.3 83 20 105/63 (77) 94 Nasal Cannula 2.0 07/23/17 23:59 94 Nasal Cannula 3.0 07/23/17 20:00 94 Nasal Cannula 2.0 07/23/17 19:27 85 20 94 Nasal Cannula 2.0 07/23/17 19:12 37.2 83 20 113/68 (83) 95 Nasal Cannula 2.0 07/23/17 16:26 37.7 85 22 122/75 (91) 94 Room Air 07/23/17 16:00 97 Nasal Cannula 2.0 Physical Exam General Appearance: WD/WN, no apparent distress Respiratory/Chest: lungs clear, no respiratory distress Cardiovascular: no murmur, + pertinent finding (bilateral edema) Abdomen: normal bowel sounds, soft, + pertinent finding (some subjective abd discomfort but no guarding nor rebound. Abdomen more distended but not tense. ) Laboratory Results Last 24 Hours Test 07/23/17 16:37 07/23/17 20:03 07/24/17 06:01 07/24/17 06:40 Bedside Glucose 173 mg/dl 224 mg/dl 203 mg/dl White Blood Count 5.30 K/uL Red Blood Count 2.92 M/uL Hemoglobin 8.7 g/dL Hematocrit 26.4 % Mean Corpuscular Volume 90.4 fL Mean Corpuscular Hemoglobin 29.8 pg Mean Corpuscular Hemoglobin Concent 33.0 g/dl Platelet Count 74 K/uL Mean Platelet Volume 11.9 fL Neutrophils (%) (Auto) 82.5 % Lymphocytes (%) (Auto) 14.2 % Monocytes (%) (Auto) 1.7 % Eosinophils (%) (Auto) 0.8 % Basophils (%) (Auto) 0.2 % Neutrophils # (Auto) 4.38 K/uL Lymphocytes # (Auto) 0.75 K/uL Monocytes # (Auto) 0.09 K/uL Eosinophils # (Auto) 0.04 K/uL Basophils # (Auto) 0.01 K/uL RDW Standard Deviation 58.2 fL RDW Coefficient of Variation 17.5 % Immature Granulocyte % (Auto) 0.6 % Immature Granulocyte # (Auto) 0.03 K/uL Polychromasia 1+ Echinocytes 1+ Sodium Level 133 mmol/L Potassium Level 3.5 mmol/L Chloride Level 99 mmol/L Carbon Dioxide Level 30 mmol/L Anion Gap 4.0 mmol/L Blood Urea Nitrogen 23 mg/dl Creatinine 1.10 mg/dl Est Creatinine Clear Calc Drug Dose 74.7 ml/min Estimated GFR () 81.8 Estimated GFR (Non- 70.6 BUN/Creatinine Ratio 20.7 Random Glucose 210 mg/dl Calcium Level 7.4 mg/dl Phosphorus Level 2.8 mg/dl Magnesium Level 2.0 mg/dl Total Bilirubin 1.1 mg/dl Aspartate Amino Transf (AST/SGOT) 30 U/L Alanine Aminotransferase (ALT/SGPT) 26 U/L Alkaline Phosphatase 276 U/L Ammonia 36.0 umol/L Total Protein 4.2 gm/dl Albumin 1.7 gm/dl Globulin 2.5 gm/dl Albumin/Globulin Ratio 0.7 Test 07/24/17 10:33 07/24/17 10:55 Vancomycin Level Trough 34.4 mcg/ml Bedside Glucose 186 mg/dl Assessment and Plan Rectal bleeding---brown stool only at this point suggestive of local process such as hemorrhoidal bleeding. In setting of possible sepsis would avoid colonoscopy unless has ongoing brisk bleeding. follow H and H Ascites--is on multiple abx to cover SBP, Increasing in amount and patient having symptom so paracentesis should be helpful diagnostically and therapeutically. hepatic encephalopathy---ammonia 36 going up. Is on lactulose only. Add Xifaxan. cirrhosis --no complete workup done but suspect SANTOS and/or sarcoidosis elevated LFTs from cirrhosis Pancreas --fluid surounding on CT-no abd pain to suggest pancreatis--- lipase 07/22 normal--doubt pancreatitis. Addendum: Fabio Osborne M.D. on 07/22/17 @ 21:31 Addendum Section Ammonia and lipase normal from earlier today.
[2017-07-24] MEDS ORDERED: INSULIN ASPART 100 UNITS/ML 3 ML PEN SC SCH (17:00)
[2017-07-24] MEDS ORDERED: NURSING VERBAL MED ORDER ONE (17:00)
[2017-07-24] MEDS: ONDANSETRON INJ 8 MG in DEXTROSE 5% 50ML 50 ML IV PRN (19:26)
[2017-07-24] MEDS ORDERED: NURSING VERBAL MED ORDER STA (19:36)
[2017-07-24] MEDS ORDERED: INSULIN ASPART 100 UNITS/ML 3 ML PEN SC ONE (19:45)
[2017-07-24] MEDS ORDERED: CASPOFUNGIN INJ 70 MG in SODIUM CHLORIDE 0.9% 250ML 250 ML IV STA (21:35)
--- NOTE | 2017-07-24 21:35 | Progress Note ---
Progress Note Date of Service Jul 24, 2017. Progress Note This evening at 21:20 one blood culture is reporting to grow yeast. Identification is pending. His urine culture did grow Christina glabrata. Tondonald I ordered one dose of caspofungin 70 mg to be administered intravenously. I did not order any additional doses. I would wait on to Dr. Chen has a chance to review the cultures tomorrow and decide on further treatment. Also we need to decide about changing his PICC line.
[2017-07-24] MEDS: QUETIAPINE FUMARATE 25 MG TAB PO SCH (22:15)
[2017-07-24] MEDS: RIFAXIMIN TAB 550 MG TAB PO SCH (22:15)
[2017-07-25] VITALS (11 sets, daily range): BP systolic 95–109; BP diastolic 59–66; PULSE 67–78; TEMP 36.4–36.8; O2SAT 90–98; BMI 31.4
[2017-07-25] MEDS: CEFEPIME IV 2000 MG in DEXTROSE 5% 100ML IV SCH ×3 (01:34→17:37)
[2017-07-25] MEDS: LEVOFLOXACIN 750MG / D5W IV SCH (01:34)
[2017-07-25] MEDS: LEVALBUTEROL 1.25MG/3ML NEB INH SCH ×4 (02:04→19:45)
[2017-07-25 04:30] LABS: HEMATOCRIT 25.7 % (42-52); MEAN CELL VOLUME 89.9 fL (80-100); MEAN CORPUSCULAR HEMOGLOBIN 29.7 pg (25-34); MEAN CORPUSCULAR HGB CONC 33.1 g/dl (32-36); RED BLOOD COUNT 2.86 M/uL (4.7-6.1)
[2017-07-25 04:32] LABS: MEAN PLATELET VOLUME 11.1 fL (7.4-10.4); PLATELET COUNT 74 K/uL (130-400)
[2017-07-25 04:48] LABS: BUN/CREATININE RATIO 24.1 (10-20); CALCIUM 7.6 mg/dl (8.5-10.1); CREATININE 1.1 mg/dl (0.60-1.40); MAGNESIUM 2.1 mg/dl (1.8-2.4); POTASSIUM 3.3 mmol/L (3.5-5.1)
[2017-07-25 04:51] LABS: ALB/GLOB RATIO 0.6 (0.9-2); PHOSPHORUS 2.5 mg/dl (2.5-4.9)
[2017-07-25 05:10] LABS: BASO % 0.1 %; BASO ABS # 0.01 K/uL (0-0.2); COMPLETE YES; EOS % 2.6 %; IG% 1.2 %; LYMPH % 8.8 %; MONO % 8.1 %; NEUT % 79.2 %
[2017-07-25 06:25] LABS: INR 1.2 (0.9-1.1); PARTIAL THROMBOPLASTIN RATIO 1.4; PROTHROMBIN TIME (PATIENT) 12.9 SECONDS (9.0-12.0)
[2017-07-25] MEDS: RIFAXIMIN TAB 550 MG TAB PO SCH ×2 (07:23→20:40)
[2017-07-25] MEDS: FLUOXETINE HCL 20 MG CAP PO SCH (07:23)
[2017-07-25] MEDS: LACTULOSE SYRUP 20 GM/30 ML UDC PO SCH ×3 (07:23→20:38)
[2017-07-25] MEDS: ATORVASTATIN 10 MG TAB PO SCH (07:23)
[2017-07-25] MEDS: BOOST GLUCOSE CONTROL PO SCH ×3 (07:23→17:26)
[2017-07-25] MEDS: PANTOprazole SOD 40 MG TAB PO SCH (07:24)
[2017-07-25] MEDS: PROPRANOLOL HCL 10 MG TAB PO SCH ×2 (07:24→20:39)
[2017-07-25] MEDS: SPIRONOLACTONE 100 MG TAB PO SCH ×2 (07:24→10:43)
[2017-07-25] MEDS: FUROSEMIDE 40 MG TAB PO SCH ×3 (07:25→17:26)
[2017-07-25] MEDS: RESTASIS~ORDER AWAITING ACTION SCH ×4 (07:26→23:47)
[2017-07-25] MEDS: INSULIN GLARGINE SOLOSTAR 100 UNITS/ML 3 ML PEN SC SCH ×2 (07:28→20:43)
[2017-07-25] MEDS: INSULIN ASPART 100 UNITS/ML 3 ML PEN SC SCH ×4 (08:00→20:46)
[2017-07-25] MEDS ORDERED: POTASSIUM CHLR 20 MEQ / WTR 20 MEQ in PREMIXED WATER 100 ML IV SCH (09:30)
--- NOTE | 2017-07-25 10:55 | DIAGNOSTIC IMAGING REPORT ---
ULTRASOUND-GUIDED DIAGNOSTIC AND THERAPEUTIC PARACENTESIS: HISTORY: Ascites. Procedure: The procedure and its risks, benefits and alternatives were discussed with the patient and written informed consent was obtained. Preliminary ultrasound of the abdomen was performed to determine a safe needle entry site. The left lower quadrant was prepped and draped in the usual sterile fashion. 1% Lidocaine was used for local anesthesia. 2 separate paracentesis needle-sheaths were inserted into the 2 separate fluid collections which appear to be either within the abdominal wall or retroperitoneal space using ultrasound guidance. The needles were removed and the sheaths were connected to tubing and a vacuum suction device. A total of 2.2 liters of yellow fluid was aspirated. The patient tolerated the procedure well and there were no immediate complications. IMPRESSION: Ultrasound-guided therapeutic and diagnostic paracentesis/drainage of the left-sided abdominal wall/retroperitoneal fluid collections with aspiration of 2.2 liters of ascites. A small amount of intra-abdominal ascites remains Electronically signed by: Joseph Beltrán M.D. 07/25/2017 10:54 AM Dictated Date/Time: 07/25/2017 10:50 AM
[2017-07-25] MEDS: VANCOMYCIN INJ 1,250 MG in SODIUM CHLORIDE 0.9% 250ML 250 ML IV SCH (12:19)
[2017-07-25 12:28] LABS: PERIT FL WBC 103 /uL (0-300); PERITONEAL FLUID RBC < 3000 /uL
[2017-07-25] MEDS: OXYCODONE HCL IR 5 MG TAB (IMMEDIATE RELEASE) PO PRN ×3 (13:57→20:35)
--- NOTE | 2017-07-25 15:14 | Progress Note ---
Subjective Date of Service: Jul 25, 2017. Subjective Pt evaluation today including: conversation w/ patient, conversation w/ family , physical exam, chart review, lab review pt seen in follow up,states he feels cold but denies fevers. initial blood cultures + yeast, non albicans. given one time dose caspo yesterday, remains on abx. urine with yeast as well. states he has had same picc in place for months. denies pain at picc site. no f/c. tolerating abx. wbc improved from admission. denies additional bleeding. all remainign ros reviewed and are negative. Problem List Medical Problems: (1) Altered mental status Status: Acute (2) Fall in home Status: Acute (3) Fever Status: Acute (4) GI bleed Status: Acute (5) Hepatic encephalopathy Status: Acute (6) Hypokalemia Status: Acute (7) Hypotension Status: Acute (8) Hypoxia Status: Acute (9) Immunocompromised Status: Acute (10) Lactic acidosis Status: Acute (11) Left leg cellulitis Status: Acute (12) Lumbar disc herniation with radiculopathy Status: Acute (13) Orthostasis Status: Acute (14) Pneumonia Status: Acute (15) Sepsis Status: Acute (16) Severe sepsis Status: Acute (17) Tenosynovitis, de Quervain Status: Acute (18) Vomiting Status: Acute Objective Vital Signs Date Time Temp Pulse Resp B/P (MAP) Pulse Ox O2 Delivery O2 Flow Rate FiO2 07/25/17 14:20 70 16 90 Nasal Cannula 1.0 07/25/17 12:00 Nasal Cannula 2.0 07/25/17 10:44 36.5 73 22 99/63 (75) 92 Nasal Cannula 2.0 07/25/17 08:00 Nasal Cannula 2.0 07/25/17 07:57 36.7 69 20 104/64 (77) 98 Nasal Cannula 2.0 07/25/17 07:30 67 16 97 Nasal Cannula 2.0 07/25/17 04:00 36.5 69 19 102/61 (75) 95 Nasal Cannula 2.0 07/25/17 04:00 96 Nasal Cannula 2.0 07/25/17 02:04 78 16 96 Nasal Cannula 2.0 07/25/17 00:16 36.4 70 19 109/66 (80) 97 Nasal Cannula 2.0 07/24/17 23:59 95 Nasal Cannula 2.0 07/24/17 20:17 82 16 95 Nasal Cannula 2.0 07/24/17 20:15 36.9 79 18 97/60 (72) 96 Nasal Cannula 2.0 07/24/17 20:00 98 Nasal Cannula 2.0 07/24/17 16:00 Nasal Cannula 3.0 07/24/17 15:34 36.9 72 16 104/58 (73) 98 Nasal Cannula 2.0 Physical Exam General Appearance: WD/WN, no apparent distress Eyes: normal inspection, EOMI Neck: supple Respiratory/Chest: lungs clear, normal breath sounds, no respiratory distress Cardiovascular: regular rate, rhythm, no edema Abdomen: non tender, soft Extremities: non-tender, no pedal edema Neurologic/Psychiatric: alert, oriented x 3 Skin: normal color, no rash Comments: picc site c/d/i Laboratory Results Item Value Date Time Blood Culture - Preliminary Resulted 07/22/17 0018 Blood NO GROWTH TO DATE. Urine Culture - Final Complete 07/22/17 0018 Urine , Clean Catch Christina Glabrata (T. Glabrata) Blood Culture - Preliminary Resulted 07/22/17 0034 Blood Yeast - Ident To Follow C.difficile Toxin B Gene (PCR) - Final Complete 07/22/17 0328 Stool No C. difficile toxin B gene detected Blood Culture - Preliminary Resulted 07/22/17 0034 Blood Yeast Not Christina Albicans Last 24 Hours Test 07/24/17 16:20 07/24/17 16:38 07/24/17 19:22 07/24/17 20:50 Bedside Glucose 353 mg/dl 371 mg/dl 263 mg/dl 188 mg/dl Test 07/25/17 00:00 07/25/17 04:21 07/25/17 06:05 07/25/17 06:59 Peritoneal Fluid Color PALE YELLOW Peritoneal Fluid Appearance HAZY Peritoneal Fluid WBC 103 /uL Peritoneal Fluid RBC < 3000 /uL Peritoneal Fld Mononuclear WBCs (%) 58.2 % Peritoneal Fld Polynuclear WBCs (%) 41.8 % Peritoneal Fluid Total Protein 0.6 g/dl Peritoneal Fluid Albumin < 0.6 g/dl Peritoneal Fluid LDH 56 IU Peritoneal Fluid Glucose 159 mg/dl Peritoneal Fluid Amylase 50 U/L Peritoneal Fluid Lipase 571 U/L Peritoneal Fluid Triglycerides 37 mg/dl White Blood Count 6.80 K/uL Red Blood Count 2.86 M/uL Hemoglobin 8.5 g/dL Hematocrit 25.7 % Mean Corpuscular Volume 89.9 fL Mean Corpuscular Hemoglobin 29.7 pg Mean Corpuscular Hemoglobin Concent 33.1 g/dl Platelet Count 74 K/uL Mean Platelet Volume 11.1 fL Neutrophils (%) (Auto) 79.2 % Lymphocytes (%) (Auto) 8.8 % Monocytes (%) (Auto) 8.1 % Eosinophils (%) (Auto) 2.6 % Basophils (%) (Auto) 0.1 % Neutrophils # (Auto) 5.38 K/uL Lymphocytes # (Auto) 0.60 K/uL Monocytes # (Auto) 0.55 K/uL Eosinophils # (Auto) 0.18 K/uL Basophils # (Auto) 0.01 K/uL RDW Standard Deviation 57.4 fL RDW Coefficient of Variation 17.3 % Immature Granulocyte % (Auto) 1.2 % Immature Granulocyte # (Auto) 0.08 K/uL Basophilic Stippling 1+ Sodium Level 135 mmol/L Potassium Level 3.3 mmol/L Chloride Level 101 mmol/L Carbon Dioxide Level 30 mmol/L Anion Gap 4.0 mmol/L Blood Urea Nitrogen 27 mg/dl Creatinine 1.10 mg/dl Est Creatinine Clear Calc Drug Dose 74.7 ml/min Estimated GFR () 81.8 Estimated GFR (Non- 70.6 BUN/Creatinine Ratio 24.1 Random Glucose 171 mg/dl Calcium Level 7.6 mg/dl Phosphorus Level 2.5 mg/dl Magnesium Level 2.1 mg/dl Total Bilirubin 1.0 mg/dl Aspartate Amino Transf (AST/SGOT) 27 U/L Alanine Aminotransferase (ALT/SGPT) 25 U/L Alkaline Phosphatase 291 U/L Ammonia 26.0 umol/L Total Protein 4.1 gm/dl Albumin 1.6 gm/dl Globulin 2.5 gm/dl Albumin/Globulin Ratio 0.6 Prothrombin Time 12.9 SECONDS Prothromb Time International Ratio 1.2 Activated Partial Thromboplast Time 36.3 SECONDS Partial Thromboplastin Ratio 1.4 Bedside Glucose 115 mg/dl Assessment and Plan (1) Fungemia Assessment & Plan: pt will remains on caspo, repeat cultures ordered. will need echo as well. urine could be source but with prolonged picc line and multiple IV abx, line suspected as source. Agree with primary to remove line and culture tip. 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 will follow.
[2017-07-25] MEDS: QUETIAPINE FUMARATE 25 MG TAB PO SCH (20:38)
--- NOTE | 2017-07-25 21:45 | Progress Note ---
Progress Note Date of Service Jul 25, 2017. Progress Note 62-year-old male admitted with multiple problems including * rectal bleeding * Recurrent fever * Lumbar spine infection. Had surgery in February for herniated L4-L5 disc. Multiple infectious complications including abscess formation, Staphylococcus sepsis, infection of the hardware, loosening of the hardware, has required multiple surgeries. * Liver cirrhosis * Ascites * Sarcoidosis * Type 2 diabetes mellitus Patient was admitted. Cultures were done. He was started on a broad spectrum triple antibiotic coverage. His blood cultures had been negative, but given his standpoint. One bacteria was reported to be growing yeast. Identification is pending. He also had a large ascites. His left abdominal incision was sleeping and clear liquid. His rectal bleeding resolved spontaneously. He denied any headache or dizziness. No chest pain no shortness of breath. No abdominal pain. No nausea or vomiting. His appetite is improving. No problem with his bowel movements. No problem urinating. He does have edema of his legs. Also edema of his penis and scrotum. Patient has been seen in GI consultation by Dr. Osborne. Seen by infectious disease consultation by Dr. Chen. EXAMINATION: GENERAL : Well developed. Well nourished. No acute distress. VITAL SIGNS : Blood Pressure : 104/64, pulse 69, respiration 20, temperature 36.7, oxygen saturation 98% on 2 L oxygen by nasal cannula SKIN : Warm and dry. No rash.No jaundice HEENT :Oxygen cannula in place. No mucosal abnormalities. NECK : Supple. No adenopathy. No thyromegaly. No JVD. Normal carotid pulses. HEART: Regular heart tones with 2/6 systolic murmur. No rub no gallop. LUNGS: Clear. Normal breath sounds. ABDOMEN: Soft nontender. No organomegaly or masses. Good bowel sounds.Surgical scar. Large ascites. BACK: No spine or CVA tenderness.Surgical scar. Well-healed. EXTREMITIES: Bilateral leg edema. GENITALIA: Edema of the scrotum and penis. LABORATORY TESTS: WBC count 6800, hemoglobin 8.5, hematocrit 25.7, platelet count 74,000. Sodium 135, potassium 3.3, chloride 101, CO2 30, BUN 27, creatinine 1.1, glucose 171, calcium 7.6, phosphorus 2.5, magnesium 2.1, total bilirubin 1.0, AST 27, ALT 25, alkaline phosphatase 291, ammonia 26, total protein 4.1, albumin 1.6, ASSESSMENT: * rectal bleeding. Self-limited. * Recurrent fever. Bacterial cultures have been negative. One blood culture grew yeast. Identification is pending. * Status post multiple surgeries for lumbar disc disease and multiple infectious complications * Hypokalemia * Liver cirrhosis * Ascites * Type 2 diabetes mellitus * Sarcoidosis PLAN: * potassium supplementation * Continue on his IV antibiotics * Remove PICC line and culture tip * Continuing therapies * He did have a paracentesis today. 2.2 L of fluid removed. * Dr. Chen in order to additional blood cultures today * Decide on continuation of his antibiotics and whether he needs treatment for his positive blood cultures for fungus. * The intent is for him to go back to [facility].
[2017-07-26] VITALS (12 sets, daily range): BP systolic 91–101; BP diastolic 51–63; PULSE 73–88; TEMP 36.5–37.1; O2SAT 87–97; Ht 170.2 cm; Wt 84.3 kg
[2017-07-26] MEDS: LEVALBUTEROL 1.25MG/3ML NEB INH SCH ×4 (02:02→19:37)
[2017-07-26] MEDS: CEFEPIME IV 2000 MG in DEXTROSE 5% 100ML IV SCH ×2 (02:30→10:36)
[2017-07-26] MEDS: LEVOFLOXACIN 750MG / D5W IV SCH (03:11)
[2017-07-26] MEDS ORDERED: VANCOMYCIN TROUGH SCH (03:30)
[2017-07-26 03:40] LABS: HEMATOCRIT 27.5 % (42-52); MEAN CELL VOLUME 89.3 fL (80-100); MEAN CORPUSCULAR HEMOGLOBIN 29.9 pg (25-34); MEAN CORPUSCULAR HGB CONC 33.5 g/dl (32-36); RED BLOOD COUNT 3.08 M/uL (4.7-6.1); WHITE BLOOD COUNT 7.88 K/uL (4.8-10.8)
[2017-07-26 03:59] LABS: BUN/CREATININE RATIO 20.8 (10-20); CALCIUM 7.7 mg/dl (8.5-10.1); CREATININE 1.3 mg/dl (0.60-1.40); MAGNESIUM 1.9 mg/dl (1.8-2.4); POTASSIUM 3.4 mmol/L (3.5-5.1)
[2017-07-26 04:03] LABS: MEAN PLATELET VOLUME 11.1 fL (7.4-10.4); PLATELET COUNT 76 K/uL (130-400)
[2017-07-26 04:04] LABS: ALB/GLOB RATIO 0.6 (0.9-2); PHOSPHORUS 2.5 mg/dl (2.5-4.9)
[2017-07-26 04:17] LABS: BASO % 0.5 %; BASO ABS # 0.04 K/uL (0-0.2); COMPLETE YES; IG% 2.3 %; LYMPH % 4.6 %; LYMPH ABS # 0.36 K/uL (1.2-3.4); MONO % 12.7 %; NEUT % 76.9 %; POLYCHROMASIA 1+
[2017-07-26] MEDS: OXYCODONE HCL IR 5 MG TAB (IMMEDIATE RELEASE) PO PRN ×3 (04:18→10:29)
[2017-07-26] MEDS: VANCOMYCIN INJ 1,250 MG in SODIUM CHLORIDE 0.9% 250ML 250 ML IV SCH (04:55)
--- NOTE | 2017-07-26 05:26 | GASTROENTEROLOGY PROGRESS NOTE ---
DATE: 07/25/2017 SUBJECTIVE: Mr. Santiago is known to me from prior hospitalizations. The patient has a history of cirrhosis that may reflect an SANTOS vs. sarcoidosis. The patient has had a complicated neurosurgical course for the past several months and was in an extended care facility during which period he has required surgical revisions. The patient presented on July 22 and had rectal bleeding on presentation. The patient is treated at home for encephalopathy and it would appear the patient had presented with confusion but is currently alert. The patient presented to the hospital from extended care facility with reports of rectal bleeding, hypotension, tachycardia and febrile state. Since admission, the patient's hemoglobin has remained stable. The patient himself reported overnight that he had some rectal bleeding, although yesterday's notations from GI and review of the nursing notes do not describe any significant rectal bleeding event that I can identify. Since admission, the patient reports episodes of GI bleeding since yesterday's GI visit. There is no abdominal pain. His laboratory studies show an overall stable hemoglobin that was 8.7 on admission and essentially continues in that range with hemoglobin this morning of 8.5. White count is normal at 6.8. The patient's platelet count is diminished at 74,000 but stable. There was some aspects of confusion and the patient has remained on his lactulose and rifaximin that he was taking outside the hospital. The patient did undergo paracentesis earlier today. LABORATORY DATA: His laboratory studies show a normal white count, diminished platelet count of approximately 70,000 and a hemoglobin that has been essentially stable in the mid-8 region since admission. The patient is eating and tolerating food well. REVIEW OF SYSTEMS: Otherwise noncontributory, based on 13-point exam. PHYSICAL EXAMINATION: VITAL SIGNS: Stable and include blood pressure 99/63, respirations 22, pulse 73, temperature 36.5, on 2 liters nasal cannula at 92%. GENERAL: The patient is awake, alert and oriented x3. The patient recognized me from my previous interactions and hospitalizations. HEENT: Sclerae are anicteric. Oral mucosa is slightly parched. Conjunctivae are moist. HEART: Normal S1, S2. LUNGS: Clear to auscultation. ABDOMEN: Soft, nontender, nondistended with good bowel sounds. I do not appreciate a tense ascites. I do not appreciate hepatosplenomegaly. EXTREMITIES: Show trace to +1 edema bilaterally. RECTAL: Deferred at this time. MEDICATIONS: Reviewed. He continues on capofungin, vancomycin IV, rifaximin was started, lactulose, levofloxacin, cefepime, atorvastatin, Prozac, pantoprazole, prednisone, spironolactone, insulin. ALLERGIES: THE PATIENT IS ALLERGIC TO CELECOXIB, PENICILLINS. IMPRESSION AND PLAN: The patient reported rectal bleeding, although earlier today and overnight, there were brown bowel movements noted by nursing. At the present time, his hemoglobin remains stable. Differential diagnosis may include ischemic colitis, or bleeding related to portal hypertension. We will continue PPI therapy and monitor hemoglobin and stool outputs. If bleeding becomes evident, it may first be helpful to obtain a tagged red cell scan to help localize this bleeding source, and if an area can be identified or if bleeding becomes more consistent then it may be necessary to consider bidirectional endoscopy. Await results of the paracentesis. His BUN and creatinine are 27 and 1.1 today and on presentation to the Emergency Room, BUN and creatinine were 26 and 1.3. All questions were answered for the patient. AMBIKA
[2017-07-26] MEDS ORDERED: POTASSIUM CHLORIDE 10 MEQ TABCR PO STA (07:08)
[2017-07-26] MEDS ORDERED: POTASSIUM CHLORIDE 10 MEQ TABCR PO ONE (07:15)
[2017-07-26] MEDS: RESTASIS~ORDER AWAITING ACTION SCH ×2 (08:00→16:00)
--- NOTE | 2017-07-26 08:44 | Clinical Documentation Query ---
Dr. EUSEBIO [facility] : CLINICAL DOCUMENTATION QUERIES QUERY 1 OF 2 Patient is a 62 year old male admitted for evaluation and treatment of rectal bleeding, recurrent fever. Cultures performed. Multiple antibiotics administered. Urine and 1 of 2 blood cultures growing yeast. PICC line discontinued. Tip culture pending. ID architectural sales consultant documentation included "urine could be source but with prolonged picc line and multiple IV abx, line suspected as source". As appropriate, consider documentation as suggested below in order to capture the severity of illness associated with this diagnosis. Thank you. In your clinical opinion is this patient being managed for: ( ) (Possible/Suspected) fungal sepsis secondary to infected PICC line, POA ( ) Not Agree ( ) Other explanation of clinical findings (Please Explain) (x) Unable to determine (Please Define) This is not definite at this time. Could be contamination. Cultures repeated. Please be patient. ( ) Need to Discuss The medical record reflects the following clinical findings, treatment, and risk factors. 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 He recieved protamine sulfate in the ED, seen in consultation by GI, and is being monitored with serial hematology. In your clinical opinion is this patient being managed for: ( ) GI bleeding secondary to Lovenox in the setting of known hemorrhoids and diverticulosis ( ) Not Agree ( ) Other explanation of clinical findings (Please Explain) (x ) Unable to determine (Please Define) Most likey hemorroidal bleed. ( ) Need to Discuss The medical record reflects the following clinical findings, treatment, and risk factors. Clinical Indicators: As above Treatment: Protamine sulfate, GI consultation, serial hematolgy Risk Factors: Age, medications, hemorrhoids, diverticulosis, Lovenox Please clarify and document your clinical opinion in the progress notes and discharge summary. Terms such as "probable", "suspected", "likely", "questionable", "possible", or "still to be ruled out" are acceptable. Please clarify and document your clinical opinion in the progress notes and discharge summary. Terms such as "probable", "suspected", "likely", "questionable", "possible", or "still to be ruled out" are acceptable. IF IN AGREEMENT, YOU MUST DOCUMENT ABOVE DIAGNOSTIC STATEMENT IN DAILY PROGRESS NOTES AND DISCHARGE SUMMARY. This document is not part of the patient's record. Thank You, Fabio Carrera RN [phone]
[2017-07-26] MEDS: ATORVASTATIN 10 MG TAB PO SCH (08:51)
[2017-07-26] MEDS: LACTULOSE SYRUP 20 GM/30 ML UDC PO SCH ×3 (08:51→21:20)
[2017-07-26] MEDS: FUROSEMIDE 40 MG TAB PO SCH ×2 (08:51→17:34)
[2017-07-26] MEDS: PROPRANOLOL HCL 10 MG TAB PO SCH ×2 (08:52→21:20)
[2017-07-26] MEDS: RIFAXIMIN TAB 550 MG TAB PO SCH ×2 (08:52→21:20)
[2017-07-26] MEDS: FLUOXETINE HCL 20 MG CAP PO SCH (08:52)
[2017-07-26] MEDS: PANTOprazole SOD 40 MG TAB PO SCH (08:52)
--- NOTE | 2017-07-26 08:53 | Pharmacy Progress Note ---
Pharmacy Abx Dose Short Note Date of Service Jul 26, 2017. Assessment & Plan Assessment 62 year old male receiving vancomycin/levaquin/cefepime for treatment of sepsis , caspofungin for candidemia (non-albicans) Day # 5 of antimicrobial therapy. Plan Vancomycin * Trough level of 32.8 mcg/mL is supratherapeutic. * Estimate T 1/2 ~ 21 hours, received dose this morning ~0500 * Will check random level and SCr in AM, then will start 1250 mg q24H if still appropriate * Goal trough level 15-20 mcg/mL Pharmacy will continue to follow and will adjust dose/frequency as necessary. Thank you.
[2017-07-26] MEDS: BOOST GLUCOSE CONTROL PO SCH ×3 (08:57→16:11)
[2017-07-26] MEDS: CASPOFUNGIN INJ 50 MG in SODIUM CHLORIDE 0.9% 250ML 250 ML IV SCH (08:57)
[2017-07-26] MEDS: INSULIN ASPART 100 UNITS/ML 3 ML PEN SC SCH ×4 (09:03→21:25)
[2017-07-26] MEDS: INSULIN GLARGINE SOLOSTAR 100 UNITS/ML 3 ML PEN SC SCH ×2 (09:04→21:24)
[2017-07-26] MEDS: ONDANSETRON INJ 8 MG in DEXTROSE 5% 50ML 50 ML IV PRN ×2 (09:24→16:40)
[2017-07-26] MEDS: SPIRONOLACTONE 100 MG TAB PO SCH (10:07)
[2017-07-26] MEDS ORDERED: NURSING VERBAL MED ORDER ONE ×2 (10:30→20:30)
--- NOTE | 2017-07-26 15:06 | Progress Note ---
Subjective Date of Service: Jul 26, 2017. Subjective pt receiving breathing treatment, comfortable. no fevers. on caspo, tolerating well. Picc line removed yesterday, picc tip culture negative so far. repeat blood cultures penidng - done before picc removed, unclear if taken from line or perph. Spoke with primary and reviewed old records send from rehab. pt was d/ c from hospital on ctx 2g Q12h. It is unclear from records if he was followed by ID. No clear stop date given per faxed records. Primay spoke with performing surgeon and plan was to transition to po suppressive abx and stop IV abx. No signs of infection were found upon last surgery for displaced hardware and no cultures obtained. Unfortunately, pt now has non albicans yeast bsi ? picc vs urine. Last + culture was from 03/2017 - [facility], sensitive to oxacillin. he was on prolonged dapto since that time. Also received ertapenem course in April for K. pneumo bsi. No fevers, no diarrhea, remaining negative. Problem List Medical Problems: (1) Altered mental status Status: Acute (2) Fall in home Status: Acute (3) Fever Status: Acute (4) GI bleed Status: Acute (5) Hepatic encephalopathy Status: Acute (6) Hypokalemia Status: Acute (7) Hypotension Status: Acute (8) Hypoxia Status: Acute (9) Immunocompromised Status: Acute (10) Lactic acidosis Status: Acute (11) Left leg cellulitis Status: Acute (12) Lumbar disc herniation with radiculopathy Status: Acute (13) Orthostasis Status: Acute (14) Pneumonia Status: Acute (15) Sepsis Status: Acute (16) Severe sepsis Status: Acute (17) Tenosynovitis, de Quervain Status: Acute (18) Vomiting Status: Acute Objective Vital Signs Date Time Temp Pulse Resp B/P (MAP) Pulse Ox O2 Delivery O2 Flow Rate FiO2 07/26/17 14:38 82 18 91 Room Air 07/26/17 12:18 36.8 88 22 96/58 (71) 97 07/26/17 12:00 Room Air 07/26/17 08:00 Room Air 07/26/17 07:42 36.5 80 22 96/60 (72) 91 Room Air 07/26/17 06:52 75 15 92 Room Air 07/26/17 04:12 36.8 75 20 97/51 (66) 93 Room Air 07/26/17 04:00 97 Nasal Cannula 2.0 07/26/17 02:02 73 16 93 Room Air 07/26/17 00:09 36.9 73 19 91/53 (66) 93 Nasal Cannula 2.0 07/25/17 20:00 97 Nasal Cannula 2.0 07/25/17 19:53 36.8 76 18 104/66 (79) 97 Nasal Cannula 2.0 07/25/17 19:45 77 16 94 Nasal Cannula 2.0 07/25/17 16:08 36.5 76 18 95/59 (71) 94 Nasal Cannula 3.0 07/25/17 16:00 Nasal Cannula 2.0 Physical Exam General Appearance: WD/WN, no apparent distress Eyes: normal inspection, EOMI Neck: supple Respiratory/Chest: normal breath sounds, no respiratory distress Cardiovascular: no edema Abdomen: soft Extremities: no pedal edema Neurologic/Psychiatric: alert Skin: normal color Laboratory Results Item Value Date Time Urine Culture - Final Complete 07/22/17 0018 Urine , Clean Catch Christina Glabrata (T. Glabrata) Blood Culture - Preliminary Resulted 07/22/17 0034 Blood Yeast Not Christina Albicans Catheter Tip Culture - Preliminary Resulted 07/25/17 1710 Catheter Tip Picc Line NO GROWTH TO DATE. Gram Stain - Final Resulted 07/25/17 0000 Ascities Fluid Last 24 Hours Test 07/25/17 16:32 07/25/17 20:13 07/26/17 03:29 07/26/17 07:06 Bedside Glucose 235 mg/dl 338 mg/dl 140 mg/dl White Blood Count 7.88 K/uL Red Blood Count 3.08 M/uL Hemoglobin 9.2 g/dL Hematocrit 27.5 % Mean Corpuscular Volume 89.3 fL Mean Corpuscular Hemoglobin 29.9 pg Mean Corpuscular Hemoglobin Concent 33.5 g/dl Platelet Count 76 K/uL Mean Platelet Volume 11.1 fL Neutrophils (%) (Auto) 76.9 % Lymphocytes (%) (Auto) 4.6 % Monocytes (%) (Auto) 12.7 % Eosinophils (%) (Auto) 3.0 % Basophils (%) (Auto) 0.5 % Neutrophils # (Auto) 6.06 K/uL Lymphocytes # (Auto) 0.36 K/uL Monocytes # (Auto) 1.00 K/uL Eosinophils # (Auto) 0.24 K/uL Basophils # (Auto) 0.04 K/uL RDW Standard Deviation 56.8 fL RDW Coefficient of Variation 17.4 % Immature Granulocyte % (Auto) 2.3 % Immature Granulocyte # (Auto) 0.18 K/uL Polychromasia 1+ Sodium Level 133 mmol/L Potassium Level 3.4 mmol/L Chloride Level 98 mmol/L Carbon Dioxide Level 30 mmol/L Anion Gap 5.0 mmol/L Blood Urea Nitrogen 27 mg/dl Creatinine 1.30 mg/dl Est Creatinine Clear Calc Drug Dose 61.8 ml/min Estimated GFR () 66.8 Estimated GFR (Non- 57.7 BUN/Creatinine Ratio 20.8 Random Glucose 232 mg/dl Calcium Level 7.7 mg/dl Phosphorus Level 2.5 mg/dl Magnesium Level 1.9 mg/dl Total Bilirubin 1.0 mg/dl Aspartate Amino Transf (AST/SGOT) 29 U/L Alanine Aminotransferase (ALT/SGPT) 27 U/L Alkaline Phosphatase 344 U/L Ammonia 20.0 umol/L Total Protein 4.5 gm/dl Albumin 1.7 gm/dl Globulin 2.8 gm/dl Albumin/Globulin Ratio 0.6 Vancomycin Level Trough 32.8 mcg/ml Assessment and Plan (1) Fungemia Assessment & Plan: picc out, culture tip negative to date. will continue vanco for now pending repeat cultures. If negative, will finish course for fungemia and also transition to po abx suppression prior to d/c. Needs echo r/o IE. If negative, will need 14 days caspofungin from first negative culture. would not transition to po fluconazole with non albicans yeast. Willfollow.
--- NOTE | 2017-07-26 18:30 | GASTROENTEROLOGY PROGRESS NOTE ---
DATE: 07/26/2017 GASTROENTEROLOGY INPATIENT PROGRESS NOTE SUBJECTIVE: The patient is doing better and shows increasing improvement with mental status. The patient is awake, alert and oriented x3 and accompanied by his . He reports no further rectal bleeding and nursing notes confirmed bowel movement to be brown, soft, without evidence of bleeding. His blood work today showed a white count of 7.8 with a hemoglobin of 9.2, which is up from yesterday of 8.5 without transfusions; platelet count is 76,000. His alkaline phosphatase today is 344 with an ammonia level of 20, transaminase and bilirubin are normal. BUN and creatinine are 27 and 1.3, and ammonia level was 14 on July 22, 29 on July 23 and 36 on July 24. MEDICATIONS: His medications were reviewed and he continues on anti-fungal therapy capofungin Rifaximin, atorvastatin, enteral nutritional formula, Seroquel, pantoprazole, prednisone, Inderal, spironolactone, insulin, lactulose, and furosemide. ALLERGIES: Reviewed. REVIEW OF SYSTEMS: Otherwise noncontributory. LABORATORY STUDIES: Microbiology on the ascites fluid shows no growth to date bacterial cultures and no evidence of acid fast bacilli on stain with cultures pending. Peritoneal fluid showed 103 white cells, less than 3000 red blood cells for which the mononuclear component of white cells were 58.2%. Albumin is low at 0.6, amylase 50, lipase 571. This would suggest no evidence for SBP. Serum albumin was 1.6 on July 25 with ascites of less than 0.6, which likely reflects values consistent with serum albumin ascites gradient of greater than 1.3. PHYSICAL EXAMINATION: GENERAL: The patient is awake, alert and oriented x3. VITAL SIGNS: Show the patient is afebrile, blood pressure is 100/58, respirations 18, heart rate 78, 92% on room air. NEUROLOGIC: The patient is awake, alert and oriented x3. HEENT: Sclerae are anicteric, conjunctivae slightly injected but moist, oral mucosa is slightly parched. HEART: Normal S1, S2. LUNGS: Show diminished breath sounds at the bases, which may be partly inspiratory effort. I do not appreciate rhonchi. HEART: Normal S1, S2. ABDOMEN: Soft, nontender, mildly protuberant without focal tenderness, evidence of tense ascites, rebound or guarding. There are positive bowel sounds. EXTREMITIES: Show +1 edema. IMPRESSION AND PLAN: The patient with a history of cirrhosis, presumably due to either sarcoid and/or nonalcoholic steatohepatitis with portal hypertension and ascites. Admission with rectal bleeding, although this seems to have stopped over the last 24-48 hours and hemoglobin actually is increased without recent transfusions. There are no reports of melena or bright red blood per rectum. No evidence for small bowel obstruction. Would continue medicines with hepatic encephalopathy and can slowly increase diet as tolerated. We will follow with you. MTDD
[2017-07-26] MEDS ORDERED: INSULIN ASPART 100 UNITS/ML 3 ML PEN SC ONE (21:00)
[2017-07-26] MEDS: QUETIAPINE FUMARATE 25 MG TAB PO SCH (21:20)
--- NOTE | 2017-07-26 21:42 | Progress Note ---
Progress Note Date of Service Jul 26, 2017. Progress Note 62-year-old male admitted with multiple problems including: * rectal bleeding. * Recurrent fever * Since February of this year he has had surgery for herniated L4-L5 disc. Followed by multiple complications. He developed epidural abscess. Osteomyelitis. The dosing of the hardware. Collapse of L4. Has required multiple surgeries since February her periods are total of 7. * Type 2 diabetes mellitus * Liver cirrhosis * Ascites * Sarcoidosis * Atrial septal defect which was repaired in 2014 * Poor nutritional status * Sleep apnea His rectal bleeding was self-limited. He has not had any recurrent problem. His fever resolved. He had had multiple cultures. One culture growing a yeast. Identification is still pending. His PICC line was removed yesterday. He did have a paracentesis with removal of 2.2 L of fluid. He has been receiving physical and occupational therapy. Patient has been seen in gastroenterology consultation by Dr. Fabio Osborne and in infectious disease consultation by Dr. Pallavi Cehn. He denied any headache. No dizziness. No chest pain. No shortness of breath. No abdominal pain. No nausea no vomiting. His appetite is improving. He has had multiple bowel movements. No evidence of any blood in his stool. No problem urinating. His back pain is well under control. He does have bilateral leg edema. Which has improved. EXAMINATION: Skin is warm and dry. No evidence of any jaundice. Vital signs: Blood pressure 96/60, pulse 80, respiration 22, temperature 36.5, oxygen saturation 91% on room air. Skin is warm and dry. No rash. No jaundice. HEENT no evidence of any mucosal abnormality. Neck is supple without lymph node enlargement. No JVD. Heart regular heart sounds with 2/6 systolic murmur Lungs are clear. Abdomen is soft. Nontender. No evidence of any masses. His left side abdominal incision is healing nicely. There is much less drainage after the paracentesis. Back his surgical incision is healed very well. Extremities: He does have significant edema in his feet but this is related to the SCD stocking. LABORATORY TEST: None WBC count 7880, hemoglobin 9.2, hematocrit 27.5, platelet count 76,000. Sodium 133, potassium 3.4, chloride 98, CO2 30, BUN 27, creatinine 1.3, glucose 232, calcium 7.7, phosphorus 2.5, magnesium 1.9, total bilirubin 1.0, AST 29, ALT 27 , alkaline phosphatase 344, ammonia level XX, total protein 4.7, albumin 1.7. ASSESSMENT: * rectal bleed. Self-limited. Most likely hemorrhoidal. * Because of fever. Has remained afebrile since admission. * Lumbar spinal infection. Has required multiple surgeries. * Liver cirrhosis * Ascites * Sarcoidosis * Type 2 diabetes mellitus PLAN: * today I was able to speak with Dr. Birmingham at [facility]. Gave him an update about the patient's condition. He feels that at this time we can plan on change in his antibiotic to his suppressive therapy. He thinks that he needs to be treated for about a year. He would see him in followup end of July. * I spoke with Dr. Chen. She is agreeable. She will plan on changing his antibiotics when appropriate. * As far as the positive culture for yeast it turns out to be not a tony albicans.he is currently on caspofungin. * Will plan on repeating his echocardiogram as she recommended * Continue with his therapies * Potassium supplementation ordered * The plan is for him to go back to [facility] once stable.
[2017-07-27] VITALS (11 sets, daily range): BP systolic 92–97; BP diastolic 50–61; PULSE 71–86; TEMP 36.8–37.1; O2SAT 91–96
[2017-07-27] MEDS: LEVALBUTEROL 1.25MG/3ML NEB INH SCH ×4 (02:32→20:40)
[2017-07-27] MEDS: ONDANSETRON INJ 8 MG in DEXTROSE 5% 50ML 50 ML IV PRN ×2 (03:05→15:58)
[2017-07-27] MEDS: OXYCODONE HCL IR 5 MG TAB (IMMEDIATE RELEASE) PO PRN ×2 (03:06→08:37)
[2017-07-27 07:13] LABS: HEMATOCRIT 27.9 % (42-52); MEAN CELL VOLUME 88.6 fL (80-100); MEAN CORPUSCULAR HEMOGLOBIN 30.2 pg (25-34); MEAN CORPUSCULAR HGB CONC 34.1 g/dl (32-36); RED BLOOD COUNT 3.15 M/uL (4.7-6.1); WHITE BLOOD COUNT 7.98 K/uL (4.8-10.8)
[2017-07-27 07:43] LABS: MEAN PLATELET VOLUME 11.3 fL (7.4-10.4); PLATELET COUNT 93 K/uL (130-400)
[2017-07-27 07:48] LABS: BASO % 0.6 %; BASO ABS # 0.05 K/uL (0-0.2); BUN/CREATININE RATIO 24.1 (10-20); CALCIUM 8.1 mg/dl (8.5-10.1); COMPLETE YES; CREATININE 1.2 mg/dl (0.60-1.40); EOS % 3.9 %; IG% 4.3 %; LYMPH % 8.4 %; LYMPH ABS # 0.67 K/uL (1.2-3.4); NEUT % 71.8 %; POLYCHROMASIA 1+; POTASSIUM 3.2 mmol/L (3.5-5.1); TOXIC GRANULATION 1+
[2017-07-27 07:51] LABS: ALB/GLOB RATIO 0.6 (0.9-2)
[2017-07-27] MEDS: RESTASIS~ORDER AWAITING ACTION SCH ×3 (08:38→15:32)
[2017-07-27] MEDS: FUROSEMIDE 40 MG TAB PO SCH ×2 (08:38→17:26)
[2017-07-27] MEDS: BOOST GLUCOSE CONTROL PO SCH ×3 (08:38→16:45)
[2017-07-27] MEDS: INSULIN ASPART 100 UNITS/ML 3 ML PEN SC SCH ×4 (08:42→21:37)
[2017-07-27] MEDS: INSULIN GLARGINE SOLOSTAR 100 UNITS/ML 3 ML PEN SC SCH ×2 (08:43→21:37)
[2017-07-27] MEDS: FLUOXETINE HCL 20 MG CAP PO SCH (08:44)
[2017-07-27] MEDS: ATORVASTATIN 10 MG TAB PO SCH (08:45)
[2017-07-27] MEDS: RIFAXIMIN TAB 550 MG TAB PO SCH ×2 (08:45→20:06)
[2017-07-27] MEDS: PANTOprazole SOD 40 MG TAB PO SCH (08:46)
[2017-07-27] MEDS: SPIRONOLACTONE 100 MG TAB PO SCH (08:47)
[2017-07-27] MEDS: LACTULOSE SYRUP 20 GM/30 ML UDC PO SCH ×3 (08:48→20:03)
[2017-07-27] MEDS: CASPOFUNGIN INJ 50 MG in SODIUM CHLORIDE 0.9% 250ML 250 ML IV SCH (08:50)
--- NOTE | 2017-07-27 13:22 | Pharmacy Progress Note ---
Pharmacy Abx Dose Short Note Date of Service Jul 27, 2017. Assessment & Plan Assessment 62 year old male receiving vancomycin for treatment of sepsis, caspofungin for candidemia (non-albicans) Day # 6 of antimicrobial therapy. Plan Vancomycin * Random level this AM is 30 mcg/mL * Per ID note- plan to stop the vancomycin if blood cultures remain negative * Estimated t1/2 ~30 hours- level should remain therapeutic until morning * Will not redose and check another level in AM if vancomycin continued. Pharmacy will continue to follow and will adjust dose/frequency as necessary. Thank you.
[2017-07-27] MEDS: PROPRANOLOL HCL 10 MG TAB PO SCH ×2 (14:14→20:06)
[2017-07-27] MEDS: POTASSIUM CHLORIDE 20 MEQ TABCR PO SCH ×3 (14:14→20:06)
--- NOTE | 2017-07-27 14:55 | Progress Note ---
Subjective Date of Service: Jul 27, 2017. Subjective Pt evaluation today including: conversation w/ patient, physical exam, chart review, lab review pt seen in followup, doing well. feeling better today. vanco level elevated, on hold. other abx stopped yesterday. c diff negative. repeat cultures negative. tolerating caspo. denies f/c. no abd pain, sp aspiration, ascites growing non albicans yeast as well, ? source. picc tip negative and final. All remaining ros reviewed and are negative. Problem List Medical Problems: (1) Altered mental status Status: Acute (2) Fall in home Status: Acute (3) Fever Status: Acute (4) GI bleed Status: Acute (5) Hepatic encephalopathy Status: Acute (6) Hypokalemia Status: Acute (7) Hypotension Status: Acute (8) Hypoxia Status: Acute (9) Immunocompromised Status: Acute (10) Lactic acidosis Status: Acute (11) Left leg cellulitis Status: Acute (12) Lumbar disc herniation with radiculopathy Status: Acute (13) Orthostasis Status: Acute (14) Pneumonia Status: Acute (15) Sepsis Status: Acute (16) Severe sepsis Status: Acute (17) Tenosynovitis, de Quervain Status: Acute (18) Vomiting Status: Acute Objective Vital Signs Date Time Temp Pulse Resp B/P (MAP) Pulse Ox O2 Delivery O2 Flow Rate FiO2 07/27/17 14:26 81 16 95 Nasal Cannula 3.0 07/27/17 12:00 Nasal Cannula 2.0 07/27/17 08:20 36.8 71 20 96/56 (69) 94 Room Air 07/27/17 08:00 Nasal Cannula 2.0 07/27/17 07:29 81 16 95 Room Air 07/27/17 04:00 Nasal Cannula 2.0 07/27/17 04:00 37.1 75 20 96/59 (71) 96 Nasal Cannula 2.0 07/27/17 02:33 78 16 96 Nasal Cannula 2.0 07/26/17 23:59 Nasal Cannula 2.0 07/26/17 23:22 37.1 84 20 98/55 (69) 94 Nasal Cannula 2.0 07/26/17 20:05 36.9 86 18 101/63 (76) 91 Room Air 07/26/17 20:00 Room Air 07/26/17 19:37 82 16 87 Room Air 07/26/17 16:00 Room Air 07/26/17 15:30 37.0 78 18 100/58 (72) 92 Room Air Physical Exam General Appearance: WD/WN, no apparent distress Eyes: normal inspection, EOMI Neck: supple Respiratory/Chest: lungs clear, normal breath sounds, no respiratory distress Cardiovascular: regular rate, rhythm, no edema Abdomen: non tender, soft Extremities: non-tender Neurologic/Psychiatric: alert, oriented x 3 Skin: normal color, warm/dry, no rash Laboratory Results Item Value Date Time Urine Culture - Final Complete 07/22/17 0018 Urine , Clean Catch Christina Glabrata (T. Glabrata) Blood Culture - Preliminary Resulted 07/22/17 0034 Blood Yeast Not Christina Albicans Gram Stain - Final Resulted 07/25/17 0000 Ascities Fluid Blood Culture - Preliminary Resulted 07/25/17 1607 Blood NO GROWTH TO DATE. Blood Culture - Preliminary Resulted 07/25/17 1600 Blood NO GROWTH TO DATE. Catheter Tip Culture - Final Complete 07/25/17 1710 Catheter Tip Picc Line NO GROWTH Gram Stain - Final Resulted 07/25/17 0000 Ascities Fluid C.difficile Toxin B Gene (PCR) - Final Complete 07/27/17 1054 Stool No C. difficile toxin B gene detected Gram Stain - Final Resulted 07/25/17 0000 Ascities Fluid Last 24 Hours Test 07/26/17 16:12 07/26/17 19:56 07/27/17 06:46 07/27/17 06:53 Bedside Glucose 314 mg/dl 301 mg/dl 100 mg/dl White Blood Count 7.98 K/uL Red Blood Count 3.15 M/uL Hemoglobin 9.5 g/dL Hematocrit 27.9 % Mean Corpuscular Volume 88.6 fL Mean Corpuscular Hemoglobin 30.2 pg Mean Corpuscular Hemoglobin Concent 34.1 g/dl Platelet Count 93 K/uL Mean Platelet Volume 11.3 fL Neutrophils (%) (Auto) 71.8 % Lymphocytes (%) (Auto) 8.4 % Monocytes (%) (Auto) 11.0 % Eosinophils (%) (Auto) 3.9 % Basophils (%) (Auto) 0.6 % Neutrophils # (Auto) 5.73 K/uL Lymphocytes # (Auto) 0.67 K/uL Monocytes # (Auto) 0.88 K/uL Eosinophils # (Auto) 0.31 K/uL Basophils # (Auto) 0.05 K/uL RDW Standard Deviation 56.7 fL RDW Coefficient of Variation 17.4 % Immature Granulocyte % (Auto) 4.3 % Immature Granulocyte # (Auto) 0.34 K/uL Toxic Granulation 1+ Polychromasia 1+ Basophilic Stippling 1+ Sodium Level 135 mmol/L Potassium Level 3.2 mmol/L Chloride Level 100 mmol/L Carbon Dioxide Level 26 mmol/L Anion Gap 9.0 mmol/L Blood Urea Nitrogen 29 mg/dl Creatinine 1.20 mg/dl Est Creatinine Clear Calc Drug Dose 65.0 ml/min Estimated GFR () 73.6 Estimated GFR (Non- 63.5 BUN/Creatinine Ratio 24.1 Random Glucose 92 mg/dl Calcium Level 8.1 mg/dl Total Bilirubin 1.1 mg/dl Aspartate Amino Transf (AST/SGOT) 33 U/L Alanine Aminotransferase (ALT/SGPT) 26 U/L Alkaline Phosphatase 283 U/L Ammonia 38.0 umol/L Total Protein 4.2 gm/dl Albumin 1.6 gm/dl Globulin 2.6 gm/dl Albumin/Globulin Ratio 0.6 Random Vancomycin Level 30.0 mcg/ml Assessment and Plan (1) Fungemia Assessment & Plan: suspect ascites as source. this will prolong duration, would give 4 weeks from first negative culture. will likely require another picc line unfortunately. will place on keflex bid for suppression of back infection and he will plan to follow with surgery post d/c.
[2017-07-27] MEDS: QUETIAPINE FUMARATE 25 MG TAB PO SCH (20:06)
--- NOTE | 2017-07-27 21:05 | Progress Note ---
Progress Note Date of Service Jul 27, 2017. Progress Note 62-year-old male admitted with multiple problems from [facility]. He presented with rectal bleeding. He also had recurrent fever. His medical history is quite complex with lumbar spinal infection after herniated disc surgery which was complicated by abscess formation and osteomyelitis and loosening of the hardware and collapse of L4. He also has liver cirrhosis. He had a large ascites. He has sleep apnea. He has a history of atrial septal defect which required repair. His rectal bleeding subsided spontaneously. It is thought to be most likely hemorrhoid noted. He was seen in GI consultation by Dr. Osborne He remained afebrile after admission. Multiple cultures were done. His urine culture, one blood culture, and culture of the peritoneal fluid overload 2 yeast which was not Christina. Initially he was placed on triple antibiotics with vancomycin, Levaquin, and cefepime. Because of the positive blood culture for yeast he was also started on caspofungin. He was seen in infectious disease consultation by Dr. Chen. Today his intravenous antibiotics have been discontinued. He was placed on a maintenance suppressive treatment with cephalexin. He is continued on caspofungin. Dr. Chen is recommending continuation of antifungal treatment for 4 weeks after the last negative culture. Patient had a PICC line initially which was removed. But he will need another PICC line. He denied any headache or dizziness or lightheadedness. Denied any earache. No chest pain. No shortness of breath. He has had recurrent abdominal pain. No nausea no vomiting. He has had recurrent diarrhea. No evidence of any blood in his stool. Today his stool was checked for Clostridium difficile and it was negative. EXAMINATION: GENERAL : Well developed. Well nourished. No acute distress. VITAL SIGNS : Blood Pressure : 96/56, pulse 71, respiration 20, temperature 36.8 , oxygen saturation 94% on room air. SKIN : Warm and dry. No rash.No jaundice HEENT :No mucosal abnormalities NECK : Supple. No adenopathy. No thyromegaly. No JVD. HEART: Regular heart tones with 2/6 systolic murmur. No rub no gallop. LUNGS: Clear. Normal breath sounds. ABDOMEN: Soft. Nontender. The incision on his left side of his abdomen if he did well. There is no further seepage of fluid since his paracentesis was done. BACK: No problem with his lumbar incision EXTREMITIES: Bilateral leg edema. Decreasing. LABORATORY TESTS : WBC count 7980, hemoglobin 9.5, hematocrit 27.9, platelet count 93,000. Sodium 135, potassium 3.2, chloride 100, CO2 26, BUN 29, creatinine 1.2, glucose 92, calcium 8.1, bilirubin 1.1, AST 33, ALT 26, alkaline phosphatase 283, ammonia level of 38, total protein 4.2, albumin 1.6. ASSESSMENT: * fungal infection. Most likely peritoneal with one positive blood culture . Also fungal urinary tract infection * Rectal bleeding. Self-limited * Lumbar spinal infection after multiple surgeries * Liver cirrhosis * Sarcoidosis * Type 2 diabetes mellitus * History of atrial septal defect which was repaired * Sleep apnea PLAN: * as noted he was switched today to oral Keflex for maintenance suppression. * Continuing caspofungin * We'll recheck an echocardiogram tomorrow * Will place a new PICC line * Continuing therapies * Eventually transfer to [facility]
[2017-07-27] MEDS: CEPHALEXIN MONOHYDRATE 500 MG CAP PO SCH (22:23)
[2017-07-28] VITALS (11 sets, daily range): BP systolic 88–105; BP diastolic 50–69; PULSE 60–101; TEMP 36.6–37.5; O2SAT 87–97
[2017-07-28] MEDS: OXYCODONE HCL IR 5 MG TAB (IMMEDIATE RELEASE) PO PRN ×4 (00:02→18:30)
[2017-07-28] MEDS: LEVALBUTEROL 1.25MG/3ML NEB INH SCH ×4 (01:54→20:54)
[2017-07-28 06:37] LABS: HEMATOCRIT 27.8 % (42-52); MEAN CELL VOLUME 89.1 fL (80-100); MEAN CORPUSCULAR HEMOGLOBIN 29.8 pg (25-34); MEAN CORPUSCULAR HGB CONC 33.5 g/dl (32-36); RED BLOOD COUNT 3.12 M/uL (4.7-6.1); WHITE BLOOD COUNT 6.11 K/uL (4.8-10.8)
[2017-07-28 06:41] LABS: PLATELET COUNT 81 K/uL (130-400)
[2017-07-28 07:05] LABS: CALCIUM 8.4 mg/dl (8.5-10.1); CREATININE 1.4 mg/dl (0.60-1.40); POTASSIUM 3.6 mmol/L (3.5-5.1)
[2017-07-28 07:08] LABS: ALB/GLOB RATIO 0.6 (0.9-2)
[2017-07-28 07:31] LABS: BASO % 0.3 %; BASO ABS # 0.02 K/uL (0-0.2); COMPLETE YES; EOS % 4.7 %; IG% 4.9 %; LYMPH % 5.6 %; LYMPH ABS # 0.34 K/uL (1.2-3.4); MONO % 12.6 %; NEUT % 71.9 %; TOXIC GRANULATION 1+
[2017-07-28] MEDS: RESTASIS~ORDER AWAITING ACTION SCH ×3 (08:00→16:00)
--- NOTE | 2017-07-28 09:24 | DIAGNOSTIC IMAGING REPORT ---
CHEST ONE VIEW PORTABLE CLINICAL HISTORY: atelectasis SEPSIS COMPARISON STUDY: 07/22/2017 FINDINGS: The cardiac and mediastinal contours remain stable. There are persistent bilateral posterior airspace opacities, most pronounced in the left midlung zone and right perihilar region. There is stable mild elevation and flattening of the right hemidiaphragm.[ IMPRESSION: 1. No significant change from the prior study. Stable bilateral pulmonary airspace opacities Electronically signed by: Ian Jones M.D. 07/28/2017 9:22 AM Dictated Date/Time: 07/28/2017 9:20 AM
[2017-07-28] MEDS: BOOST GLUCOSE CONTROL PO SCH ×3 (09:41→17:56)
[2017-07-28] MEDS: INSULIN GLARGINE SOLOSTAR 100 UNITS/ML 3 ML PEN SC SCH ×2 (09:44→21:13)
[2017-07-28] MEDS: INSULIN ASPART 100 UNITS/ML 3 ML PEN SC SCH ×4 (09:44→21:15)
[2017-07-28] MEDS: LACTULOSE SYRUP 20 GM/30 ML UDC PO SCH ×3 (09:46→21:04)
[2017-07-28] MEDS: PROPRANOLOL HCL 10 MG TAB PO SCH ×2 (09:47→21:04)
[2017-07-28] MEDS: FUROSEMIDE 40 MG TAB PO SCH ×2 (09:48→17:57)
[2017-07-28] MEDS: SPIRONOLACTONE 100 MG TAB PO SCH (09:49)
[2017-07-28] MEDS: ATORVASTATIN 10 MG TAB PO SCH (09:49)
[2017-07-28] MEDS: RIFAXIMIN TAB 550 MG TAB PO SCH ×2 (09:50→21:04)
[2017-07-28] MEDS: PANTOprazole SOD 40 MG TAB PO SCH (09:50)
[2017-07-28] MEDS: FLUOXETINE HCL 20 MG CAP PO SCH (09:51)
[2017-07-28] MEDS: POTASSIUM CHLORIDE 20 MEQ TABCR PO SCH ×3 (09:51→21:04)
[2017-07-28] MEDS: CEPHALEXIN MONOHYDRATE 500 MG CAP PO SCH ×2 (09:52→21:04)
[2017-07-28] MEDS: CASPOFUNGIN INJ 50 MG in SODIUM CHLORIDE 0.9% 250ML 250 ML IV SCH (09:56)
--- NOTE | 2017-07-28 10:34 | Progress Note ---
Subjective Date of Service: Jul 28, 2017. Subjective Pt evaluation today including: conversation w/ patient, physical exam, chart review, lab review Pt doing much better, reading the paper, ate breakfast this am, no n/v/d/abd pain. no f/c. tolerating caspo. was placed on suppressive keflex yesterday, tolerating well. new picc placed. picc tip culture negative, repeat blood cultures remain negative. Feeling much better today. All remaining ros reviewed and are negative. Problem List Medical Problems: (1) Altered mental status Status: Acute (2) Fall in home Status: Acute (3) Fever Status: Acute (4) GI bleed Status: Acute (5) Hepatic encephalopathy Status: Acute (6) Hypokalemia Status: Acute (7) Hypotension Status: Acute (8) Hypoxia Status: Acute (9) Immunocompromised Status: Acute (10) Lactic acidosis Status: Acute (11) Left leg cellulitis Status: Acute (12) Lumbar disc herniation with radiculopathy Status: Acute (13) Orthostasis Status: Acute (14) Pneumonia Status: Acute (15) Sepsis Status: Acute (16) Severe sepsis Status: Acute (17) Tenosynovitis, de Quervain Status: Acute (18) Vomiting Status: Acute Objective Vital Signs Date Time Temp Pulse Resp B/P (MAP) Pulse Ox O2 Delivery O2 Flow Rate FiO2 07/28/17 07:34 36.6 74 18 89/50 (63) 93 Nasal Cannula 2.0 07/28/17 07:33 74 16 93 Nasal Cannula 2.0 07/28/17 04:15 36.6 60 19 94/59 (71) 95 Nasal Cannula 2.0 07/28/17 04:00 Nasal Cannula 2.0 07/28/17 01:57 73 16 96 Nasal Cannula 2.0 07/28/17 00:00 Nasal Cannula 2.0 07/27/17 23:54 37.1 72 19 97/50 (66) 92 Nasal Cannula 2.0 07/27/17 20:40 79 16 96 Nasal Cannula 3.0 07/27/17 20:26 36.8 81 16 94/61 (72) 93 Nasal Cannula 4.0 07/27/17 20:01 91 Nasal Cannula 2.0 07/27/17 16:01 91 Nasal Cannula 2.0 07/27/17 15:50 37.1 86 18 92/59 (70) 91 Nasal Cannula 1.5 07/27/17 14:26 81 16 95 Nasal Cannula 3.0 07/27/17 12:00 Nasal Cannula 2.0 Physical Exam General Appearance: WD/WN, no apparent distress Eyes: normal inspection, EOMI Neck: supple Respiratory/Chest: lungs clear, normal breath sounds, no respiratory distress Cardiovascular: regular rate, rhythm, no edema Abdomen: non tender, soft Extremities: non-tender, normal inspection, no pedal edema Neurologic/Psychiatric: alert, normal mood/affect, oriented x 3 Skin: normal color Laboratory Results Item Value Date Time Catheter Tip Culture - Final Complete 07/25/17 1710 Catheter Tip Picc Line NO GROWTH Blood Culture - Preliminary Resulted 07/25/17 1607 Blood NO GROWTH TO DATE. Blood Culture - Preliminary Resulted 07/25/17 1600 Blood NO GROWTH TO DATE. Gram Stain - Final Resulted 07/25/17 0000 Ascities Fluid Blood Culture - Final Complete 07/22/17 0034 Blood Christina Glabrata (T. Glabrata) Urine Culture - Final Complete 07/22/17 0018 Urine , Clean Catch Christina Glabrata (T. Glabrata) Gram Stain - Final Resulted 07/25/17 0000 Ascities Fluid Last 24 Hours Test 07/27/17 11:32 07/27/17 16:47 07/27/17 20:33 07/28/17 06:14 Bedside Glucose 178 mg/dl 235 mg/dl 259 mg/dl Sodium Level 135 mmol/L Potassium Level 3.6 mmol/L Chloride Level 101 mmol/L Carbon Dioxide Level 28 mmol/L Anion Gap 6.0 mmol/L Blood Urea Nitrogen 32 mg/dl Creatinine 1.40 mg/dl Est Creatinine Clear Calc Drug Dose 55.8 ml/min Estimated GFR () 61.1 Estimated GFR (Non- 52.7 BUN/Creatinine Ratio 23.0 Random Glucose 124 mg/dl Calcium Level 8.4 mg/dl Total Bilirubin 1.1 mg/dl Aspartate Amino Transf (AST/SGOT) 36 U/L Alanine Aminotransferase (ALT/SGPT) 28 U/L Alkaline Phosphatase 303 U/L Ammonia 47.0 umol/L Total Protein 4.2 gm/dl Albumin 1.6 gm/dl Globulin 2.6 gm/dl Albumin/Globulin Ratio 0.6 Test 07/28/17 06:15 07/28/17 07:01 White Blood Count 6.11 K/uL Red Blood Count 3.12 M/uL Hemoglobin 9.3 g/dL Hematocrit 27.8 % Mean Corpuscular Volume 89.1 fL Mean Corpuscular Hemoglobin 29.8 pg Mean Corpuscular Hemoglobin Concent 33.5 g/dl Platelet Count 81 K/uL Mean Platelet Volume 11.0 fL Neutrophils (%) (Auto) 71.9 % Lymphocytes (%) (Auto) 5.6 % Monocytes (%) (Auto) 12.6 % Eosinophils (%) (Auto) 4.7 % Basophils (%) (Auto) 0.3 % Neutrophils # (Auto) 4.39 K/uL Lymphocytes # (Auto) 0.34 K/uL Monocytes # (Auto) 0.77 K/uL Eosinophils # (Auto) 0.29 K/uL Basophils # (Auto) 0.02 K/uL RDW Standard Deviation 57.3 fL RDW Coefficient of Variation 17.5 % Immature Granulocyte % (Auto) 4.9 % Immature Granulocyte # (Auto) 0.30 K/uL Toxic Granulation 1+ Random Vancomycin Level 22.5 mcg/ml Bedside Glucose 119 mg/dl Assessment and Plan (1) Fungemia Assessment & Plan: suspect ascites as source. this will prolong duration, would give 4 weeks from first negative culture, tentative stop date 08/22. [address] on keflex bid for suppression of back infection and he will plan to follow with surgery post d/c. ok for d/c when otherwise stable.
--- NOTE | 2017-07-28 13:27 | GASTROENTEROLOGY PROGRESS NOTE ---
DATE: 07/28/2017 DATE: 07/28/2017 SUBJECTIVE: The patient reports a good night overall. This morning he is slightly fatigued but is clearly awake, alert and oriented x3. Sclerae are anicteric. The patient did eat breakfast this morning without difficulty and has not had a bowel movement. There are no reports of gastrointestinal bleeding overnight. Small amount of serous leakage from abdominal incision onto the gown is noted. LABORATORY STUDIES: Show white count 6.1, hemoglobin is stable at 9.3, platelets are 81,000. BUN and creatinine this morning 32 and 1.4, which is slightly increased compared to yesterday, potassium 3.6, total bilirubin is slightly elevated at 1.1 with an alkaline phosphatase of 303. His ammonia level is up compared with yesterday when it was 38, today is 47. REVIEW OF SYSTEMS: Otherwise noncontributory based on 13-point exam. MEDICATIONS: Include Keflex, potassium chloride, insulin, caspofungin, rifaximin, atorvastatin, Prozac, pantoprazole 40 mg daily, prednisone, Inderal 10 mg twice daily, spironolactone, lactulose, Lasix. PHYSICAL EXAMINATION: GENERAL: The patient is awake, alert, slightly lethargic but clearly is oriented to person, place and time. HEART: Normal S1, S2. LUNGS: Clear to auscultation. ABDOMEN: Soft, nontender, without rebound or guarding. EXTREMITIES: Without edema. IMPRESSION: The patient with a history of cirrhosis due to a probable sarcoid versus and/or fatty liver. His ammonia level is up compared with yesterday at 47. It is difficult to know if this reflects a slight worsening of encephalopathy or small just fatigue from his occupational therapy. However, ammonia level was elevated and could reflect a component of dehydration as his BUN and creatinine are slightly elevated compared with yesterday despite the absence of any reported blood loss and stable hemoglobin. There is no evidence for ST-T. It may be reasonable, if tolerated, to increase hydration slowly and consider increasing lactulose to 45 mL 3 times daily. Understandably walking a fine balance between dehydration and reduced lethargy and volume overload. Will continue to follow with you. MTDD
--- NOTE | 2017-07-28 19:41 | ECHOCARDIOGRAM REPORT ---
*NOTICE TO RECEIVING REPUBLICAN AGENCY This information is strictly Confidential and protected under [place] law. [place] law prohibits you from making any further disclosure of this information unless further disclosure is expressly permitted by the written consent of the person to whom it pertains or is authorized by law. A general authorization for the release of medical or other information is not sufficient for this purpose. Hospital accepts no responsibility if the information is made available to any other person, INCLUDING THE PATIENT. Interpretation Summary * Name: ALEXIS FENG JR Study Date: 07/28/2017 10:19 AM * Patient Location: C.2T\S\S244\S\1 HR: 72 * : 1955 (M/d/yyyy) Gender: Male Height: 67 in * Age: 62 yrs Ethnicity: [place] Weight: 189 lb * Ordering Physician: Hu Ackerman * Referring Physician: UNKNOWN * Performed By: Sophie Koehler RCS * * Reason For Study: Rule Out Endocarditiis * BSA: 2.0 m2 * Normal biventricular systolic function. * Mild concentric left ventricle hypertrophy. * Class 2 left ventricular diastolic dysfunction. * Mild left atrial dilatation. * Aortic valve sclerosis without significant stenosis. The valve was mildly stenosed. No aortic regurgitation. * Trace mitral and tricuspid regurgitation. * Normal estimated right ventricular systolic pressure. * There is no evidence of a mass or vegetation. This does not rule out endocarditis. * -- Conclusions -- * Aortic valve sclerosis moderate, without significant aortic valvular stenosis. Procedure Details * Left Ventricle The left ventricle is normal in size. There is mild concentric left ventricular hypertrophy. Ejection Fraction = 65-70%. Left ventricular systolic function is normal. A full diastolic examination was done with clinical findings of Class II diastolic dysfunction. The left ventricular wall motion is normal. * Right Ventricle The right ventricle is normal in size and function. * Atria The left atrium is mildly dilated. Right atrial size is normal. No ASD detected; PFO is not assessed. * Mitral Valve There is mild mitral annular calcification. There is no mitral valve stenosis. There is trace mitral regurgitation. * Tricuspid Valve The tricuspid valve is normal. There is no tricuspid stenosis. There is trace tricuspid regurgitation. * Aortic Valve The aortic valve is trileaflet. Aortic valve sclerosis moderate, without significant aortic valvular stenosis. Aortic valve area was calculated at 1.6 cm\S\2 using the continuity equation. Mild valvular aortic stenosis. No aortic regurgitation is present. * Pulmonic Valve The pulmonic valve is not well visualized. The pulmonary valve is inadequately visualized, but the Doppler data is adequate for interpretation. There is no pulmonic valvular stenosis. There is no pulmonic valvular regurgitation. * Great Vessels The aortic root is normal size. * Pericardium/Pleural There is no pericardial effusion. * Great Vessels Normal inferior vena cava diameter and respiratory variation suggests normal central venous pressure. * * MMode 2D Measurements and Calculations * IVSd 1.4 cm * * LVIDd 4.7 cm * LVIDs 2.8 cm * LVPWd 1.4 cm * * IVS/LVPW 0.98 * FS 40.2 % * EDV(Teich) 104.4 ml * ESV(Teich) 30.5 ml * EF(Teich) 70.8 % * * EDV(cubed) 106.4 ml * ESV(cubed) 22.8 ml * EF(cubed) 78.6 % * * LV mass(C)d 267.1 grams * LV mass(C)dI 135.3 grams/m\S\2 * * SV(Teich) 73.9 ml * SI(Teich) 37.4 ml/m\S\2 * SV(cubed) 83.6 ml * SI(cubed) 42.4 ml/m\S\2 * * Ao root diam 2.9 cm * Ao root area 6.7 cm\S\2 * LA dimension 4.6 cm * * LA/Ao 1.6 * LVOT diam 2.0 cm * LVOT area 3.1 cm\S\2 * * LVAd ap4 38.3 cm\S\2 * LVLd ap4 9.3 cm * EDV(MOD-sp4) 129.6 ml * EDV(sp4-el) 134.0 ml * LVAs ap4 16.0 cm\S\2 * LVLs ap4 7.0 cm * ESV(MOD-sp4) 29.3 ml * ESV(sp4-el) 31.0 ml * EF(MOD-sp4) 77.4 % * EF(sp4-el) 76.8 % * * LVAd ap2 23.8 cm\S\2 * LVLd ap2 8.7 cm * EDV(MOD-sp2) 54.4 ml * EDV(sp2-el) 55.4 ml * LVAs ap2 12.0 cm\S\2 * LVLs ap2 6.4 cm * ESV(MOD-sp2) 19.0 ml * ESV(sp2-el) 19.2 ml * EF(MOD-sp2) 65.1 % * EF(sp2-el) 65.4 % * * LVLd %diff -6.83 % * EDV(MOD-bp) 87.1 ml * LVLs %diff -8.23 % * ESV(MOD-bp) 24.5 ml * EF(MOD-bp) 71.9 % * * SV(MOD-sp4) 100.3 ml * SI(MOD-sp4) 50.8 ml/m\S\2 * * SV(MOD-sp2) 35.5 ml * SI(MOD-sp2) 18.0 ml/m\S\2 * * SV(MOD-bp) 62.6 ml * SI(MOD-bp) 31.7 ml/m\S\2 * * SV(sp4-el) 103.0 ml * SI(sp4-el) 52.2 ml/m\S\2 * * SV(sp2-el) 36.2 ml * SI(sp2-el) 18.3 ml/m\S\2 * * * Doppler Measurements and Calculations * MV E max garrett 78.8 cm/sec * MV A max garrett 74.2 cm/sec * * MV E/A 1.1 * * Ao V2 max 244.3 cm/sec * Ao max PG 23.9 mmHg * Ao max PG (full) 17.8 mmHg * Ao V2 mean 167.1 cm/sec * Ao mean PG 12.7 mmHg * Ao mean PG (full) 9.3 mmHg * Ao V2 VTI 50.3 cm * LOLA(I,A) 1.7 cm\S\2 * LOLA(I,D) 1.7 cm\S\2 * LOLA(V,A) 1.6 cm\S\2 * LOLA(V,D) 1.6 cm\S\2 * * LV V1 max PG 6.2 mmHg * LV V1 mean PG 3.3 mmHg * * LV V1 max 123.2 cm/sec * LV V1 mean 82.5 cm/sec * LV V1 VTI 27.1 cm * * SV(Ao) 338.0 ml * SI(Ao) 171.2 ml/m\S\2 * SV(LVOT) 84.8 ml * SI(LVOT) 42.9 ml/m\S\2 * * TR max garrett 248.9 cm/sec * * *
--- NOTE | 2017-07-28 20:51 | Progress Note ---
Progress Note Date of Service Jul 28, 2017. Progress Note she 2-year-old male admitted with bleeding which was self-limited. He also has recurrent fever and was suspected of having recurrent sepsis. He has had an infection of the lumbar spine after his initial surgery for herniated L4-L5 disc with major complications with epidural abscess and osteomyelitis and who is new of the hardware and collapse of L4. He had multiple surgeries here at our hospital and also at [facility].his history is also significant for sarcoidosis, type 2 diabetes mellitus , sleep apnea, atrial septal defect which was repaired, peripheral neuropathy.he also has liver cirrhosis. Had large ascites. Underwent paracentesis. Cultures from his peritoneal fluid, urine and one blood culture grew yeast. He is currently on caspofungin. He was on intravenous antibiotics but he was changed to a maintenance suppressive therapy with cephalexin. His condition has improved. He denied any headache. No dizziness. No chest pain. No shortness of breath. Has had recurrent abdominal pain. Has recurrent diarrhea. He has been on lactulose. No problem urinating. His back pain is under control. He does have bilateral leg edema. EXAMINATION GENERAL : Well developed. Well nourished. No acute distress. VITAL SIGNS : Blood Pressure : 89/50, pulse 74, respiration 18, temperature 36.6 , oxygen saturation 93% on 2 L oxygen. SKIN : Warm and dry. No rash. HEENT :Oxygen cannula in place. No mucosal abdomen obese. NECK : Supple. No adenopathy. No thyromegaly. No JVD. HEART: Regular heart tones with 2/6 systolic murmur. No rub no gallop. LUNGS: Clear. Normal breath sounds. ABDOMEN: Soft. Nontender. Surgical scar left side. Does have residual ascites. EXTREMITIES: Bilateral leg edema. Much improved. New PICC line in place left arm LABORATORY TESTS: WBC count 6110, hemoglobin 9.3, hematocrit 27.8, platelet count 81,000. Sodium 135, potassium 3.6, chloride 101, CO2 28, BUN 32, creatinine 1.4, glucose 124, calcium 8.4, total bilirubin 1.1, AST 36, ALT 28, alkaline phosphatase 303, ammonia 47, total protein 4.2, albumin 1.6. Repeat chest x-ray showed stable bilateral pulmonary airspace opacities. Echocardiogram did not show any evidence of endocarditis ASSESSMENT: * fungal infection. Thought to be related to his ascites. One positive blood culture. Positive urine culture. * Rectal bleeding. Self-limited. * Lumbar spinal infection after surgery * Liver cirrhosis * Recurrent ascites * Type 2 diabetes mellitus * Sleep apnea * Sarcoidosis PLAN: * as noted a new PICC line was placed * Continuing caspofungin * Continuing cephalexin * Increase lactulose because of the increase in his ammonia level * Continue therapies * Plan and for eventual transfer to [facility]
[2017-07-28] MEDS: QUETIAPINE FUMARATE 25 MG TAB PO SCH (21:04)
[2017-07-28] MEDS: ONDANSETRON INJ 8 MG in DEXTROSE 5% 50ML 50 ML IV PRN (21:16)
[2017-07-29] VITALS (14 sets, daily range): BP systolic 97–107; BP diastolic 59–71; PULSE 75–98; TEMP 36.7–37; O2SAT 93–97
[2017-07-29] MEDS: LEVALBUTEROL 1.25MG/3ML NEB INH SCH ×4 (01:50→20:04)
[2017-07-29 04:48] LABS: HEMATOCRIT 27.5 % (42-52); MEAN CELL VOLUME 88.4 fL (80-100); MEAN CORPUSCULAR HEMOGLOBIN 30.5 pg (25-34); MEAN CORPUSCULAR HGB CONC 34.5 g/dl (32-36); RED BLOOD COUNT 3.11 M/uL (4.7-6.1); WHITE BLOOD COUNT 6.91 K/uL (4.8-10.8)
[2017-07-29 04:54] LABS: MEAN PLATELET VOLUME 11.1 fL (7.4-10.4); PLATELET COUNT 80 K/uL (130-400)
[2017-07-29 05:17] LABS: BASO % 0.3 %; BASO ABS # 0.02 K/uL (0-0.2); COMPLETE YES; IG% 5.2 %; LYMPH % 2.7 %; LYMPH ABS # 0.19 K/uL (1.2-3.4); MONO % 11.6 %; NEUT % 78.2 %; TOXIC GRANULATION 1+
[2017-07-29 05:48] LABS: BUN/CREATININE RATIO 24.6 (10-20); CALCIUM 8.2 mg/dl (8.5-10.1); CREATININE 1.3 mg/dl (0.60-1.40); POTASSIUM 4.7 mmol/L (3.5-5.1)
[2017-07-29 05:55] LABS: ALB/GLOB RATIO 0.6 (0.9-2)
[2017-07-29] MEDS: INSULIN ASPART 100 UNITS/ML 3 ML PEN SC SCH ×4 (07:59→21:29)
[2017-07-29] MEDS: RESTASIS~ORDER AWAITING ACTION SCH ×4 (08:00→18:46)
[2017-07-29] MEDS: FUROSEMIDE 40 MG TAB PO SCH ×2 (08:03→17:11)
[2017-07-29] MEDS: BOOST GLUCOSE CONTROL PO SCH ×3 (08:08→17:11)
[2017-07-29] MEDS: LACTULOSE SYRUP 20 GM/30 ML UDC PO SCH ×3 (08:08→21:00)
[2017-07-29] MEDS: FLUOXETINE HCL 20 MG CAP PO SCH (08:09)
[2017-07-29] MEDS: PROPRANOLOL HCL 10 MG TAB PO SCH ×2 (08:09→21:27)
[2017-07-29] MEDS: SPIRONOLACTONE 100 MG TAB PO SCH (08:09)
[2017-07-29] MEDS: RIFAXIMIN TAB 550 MG TAB PO SCH ×2 (08:09→21:27)
[2017-07-29] MEDS: CEPHALEXIN MONOHYDRATE 500 MG CAP PO SCH ×2 (08:10→21:27)
[2017-07-29] MEDS: POTASSIUM CHLORIDE 20 MEQ TABCR PO SCH ×3 (08:10→21:27)
[2017-07-29] MEDS: CASPOFUNGIN INJ 50 MG in SODIUM CHLORIDE 0.9% 250ML 250 ML IV SCH (09:19)
[2017-07-29] MEDS: INSULIN GLARGINE SOLOSTAR 100 UNITS/ML 3 ML PEN SC SCH ×2 (09:20→21:30)
[2017-07-29] MEDS: PANTOprazole SOD 40 MG TAB PO SCH (09:30)
[2017-07-29] MEDS: ATORVASTATIN 10 MG TAB PO SCH (09:30)
--- NOTE | 2017-07-29 11:10 | Progress Note ---
Progress Note Date of Service Jul 29, 2017. Progress Note 62-year-old male admitted from [facility] with multiple problems including rectal bleeding. He also had recurrent fever. He was suspected of having recurrent sepsis. He had surgery for L4-L5 herniated disc back in February 2017 and had multiple complications since then including epidural abscess, osteomyelitis, loosening of the hardware, infection of the hardware, collapse of L4. He has required multiple surgeries since then a total of 7. His medical problems also include sarcoidosis, type 2 diabetes mellitus, sleep apnea, peripheral neuropathy, liver cirrhosis, recurrent ascites , atrial septal defect which required repair. Since his admission this time the following has taken place: * His rectal bleeding resolved spontaneously. After the initial drop of his hemoglobin is stabilized. There has been no evidence of any recurrent bleeding. * He has not had any recurrent fever. Blood cultures were negative for soreness bacterial growth. One blood culture grew yeast not tony. * His urine culture also grew yeast. Not tony. * He had a paracentesis with removal of 2.2 L of ascites fluid. Culture did grow yeast. Not tony. The suspicion is that he did have a yeast peritonitis which is the source of the infection. * He had a PICC line which was removed. Culture of the tip of the catheter has been negative * An echocardiogram was done yesterday and showed no evidence of endocarditis within the limitation of the test * His ammonia level has been slightly elevated. He is on lactulose. He is also on rifaximin. He has had a large number of bowel movements or diarrhea related to the lactulose. Stool was negative for Clostridium difficile. * He has been undergoing therapy. At this point he denied any headache or dizziness or lightheadedness. His jaundice completely resolved. He is requiring oxygen. Denied any chest pain. No shortness of breath. His abdominal pain seems to have resolved. His appetite is improving. He likes to eat a lot of carbohydrates. We are trying to encourage him to eat more protein. He has required additional doses of insulin because of his carbohydrate intake. There has been no more blood in his stool. No problem urinating. He continues to have some discomfort in his lower back. But it seems to be under control. He does have bilateral leg edema. It has markedly improved. EXAMINATION : GENERAL: Well-developed. No distress. VITAL SIGNS: Blood pressure 103/71, pulse 75, respiration 20, temperature 36.9, oxygen saturation 97% on 2 L oxygen by nasal cannula. SKIN: Warm and dry. No rash. No jaundice HEENT: Oxygen cannula in place. No mucosal abnormality NECK: Supple, nontender. No lymph node or thyroid enlargement. No JVD. HEART: Regular heart sounds with 2/6 systolic murmur LUNGS: Bilateral rhonchi especially at the bases ABDOMEN: Soft nontender. Residual ascites. Left-sided abdominal scar is healing very well. Minimal discharge noted on the dressing. BACK: No reported problem with his incision EXTREMITIES: Persistent edema. Much lesser extent. Dependent edema upper thighs and hips. LABORATORY TESTS : WBC count 6910, hemoglobin 9.5, hematocrit 27.5, platelet count 80,000. Sodium 131, potassium 4.7, chloride 99, CO2 29, BUN 32, creatinine 1.3, glucose 175, calcium 8.2, total bilirubin 1.2, AST 41, AST 31, alkaline phosphatase 334 , total protein 4.4, albumin 1.7, ASSESSMENT : * Yeast peritonitis with fungemia and urinary tract infection * Rectal bleeding. Resolved. * Lumbar spinal infection after surgery for herniated disc with multiple complications * Liver cirrhosis * Sleep apnea * Type 2 diabetes mellitus * Sarcoidosis PLAN : * Continue the same medications * Additional dose of Lasix today * Continuing his therapies * New PICC line in place * Continue monitoring the results of his cultures * Continuing physical therapy * Planning for transfer to [facility] early next week
--- NOTE | 2017-07-29 17:26 | Gastroenterology Progress Note ---
Progress Note Date of Service: Jul 29, 2017 Subjective Pt evaluation today including: conversation w/ patient, physical exam, chart review, lab review, review of studies, review of inpatient medication list CC f/u GI bleeding, ascites HPI Pt denies abd pain but is nauseated and thinks maybe one of his meds might be doing it but not sure which one. Stools per patient and nursing no blood. Most recent yellow. Review of Systems Respiratory: No shortness of breath Cardiac: No chest pain Medications Current Inpatient Medications Medications (Trade) Dose Ordered Sig/Nathalia Route Start Time Stop Time Status Last Admin Dose Admin Acetaminophen (Tylenol Tab) 650 mg Q4H PRN PO 07/22/17 02:30 08/21/17 02:29 Atorvastatin Calcium (Lipitor Tab) 10 mg DAILY PO 07/22/17 09:00 08/21/17 08:59 07/29/17 09:30 10 MG Fluoxetine HCl (Prozac Cap) 40 mg QAM PO 07/22/17 09:00 08/21/17 08:59 07/29/17 08:09 40 MG Pantoprazole Sodium (Protonix Tab) 40 mg QAM PO 07/22/17 09:00 08/21/17 08:59 07/29/17 09:30 40 MG Prednisone (PredniSONE TAB) 20 mg QAM PO 07/22/17 09:00 08/21/17 08:59 07/29/17 09:29 20 MG Propranolol HCl (Inderal Tab) 10 mg BID PO 07/22/17 09:00 08/21/17 08:59 07/29/17 08:09 10 MG Quetiapine Fumarate (seroQUEL TAB) 25 mg HS PO 07/22/17 21:00 08/21/17 20:59 07/28/17 21:04 25 MG Spironolactone (Aldactone Tab) 50 mg DAILY PO 07/22/17 09:00 08/21/17 08:59 07/29/17 08:09 50 MG Miscellaneous Information (Order Awaiting Action) 1 ea QS N/A 07/22/17 08:00 08/21/17 07:59 Levalbuterol (Xopenex 1.25MG/ 3ML Neb) 1.25 mg Q6R INH 07/22/17 03:00 08/21/17 02:59 07/29/17 14:05 1.25 MG Insulin Aspart (novoLOG ASPART) SLIDING SCALE G... ACHS SC 07/22/17 07:00 08/21/17 06:59 07/29/17 17:15 14 UNITS Lactulose (Chronulac Syrup) 20 gm TID PO 07/22/17 09:00 08/21/17 08:59 07/29/17 14:33 20 GM Oxycodone HCl (Roxicodone Immediate Rel Tab) 5 mg Q4H PRN PO 07/22/17 02:45 08/05/17 02:44 07/28/17 18:30 5 MG Ondansetron HCl 8 mg/Dextrose 54 ml @ 200 mls/hr Q4H PRN IV 07/22/17 03:00 08/21/17 02:59 07/28/17 21:16 200 MLS/HR Glucose (Glucose 40% Gel) 15-30 GRAMS 15 GRAMS... UD PRN PO 07/22/17 03:15 08/21/17 03:14 Glucose (Glucose Chew Tab) 4-8 Tablets 4 Tabl... UD PRN PO 07/22/17 03:15 08/21/17 03:14 Dextrose (Dextrose 50% 50ML Syringe) 25-50ML OF 50% DW IV FOR... UD PRN IV 07/22/17 03:15 08/21/17 03:14 Glucagon (Glucagon Inj) 1 mg UD PRN SQ 07/22/17 03:15 08/21/17 03:14 Furosemide (Lasix Tab) 40 mg BIDM PO 07/22/17 07:30 08/21/17 07:29 07/29/17 17:11 40 MG Enteral Nutritional Formula (Boost Glucose Control) 1 can TIDM PO 07/22/17 16:45 08/21/17 16:44 07/29/17 17:11 1 CAN Rifaximin (Xifaxan Tab) 550 mg BID PO 07/24/17 21:00 08/23/17 20:59 07/29/17 08:09 550 MG Caspofungin 50 mg/ Sodium Chloride 260 ml @ 250 mls/hr DAILY IV 07/26/17 09:00 08/25/17 08:59 07/29/17 09:19 250 MLS/HR Insulin Glargine (Lantus Solostar Pen) 20 units BID SC 07/26/17 21:00 08/21/17 08:59 07/29/17 09:20 20 UNITS Potassium Chloride (Klor-Con Tab) 20 meq TID PO 07/27/17 09:00 08/26/17 08:59 07/29/17 14:33 20 MEQ Cephalexin Monohydrate (Keflex Cap) 500 mg BID PO 07/27/17 21:00 09/07/17 20:59 07/29/17 08:10 500 MG Heparin Sodium (Porcine) (Heparin 10 Unit/ ml 5 ml Flush) 5 ml PRN PRN FLUSH 07/29/17 01:00 08/28/17 00:59 07/29/17 10:46 5 ML Objective Vital Signs Date Time Temp Pulse Resp B/P (MAP) Pulse Ox O2 Delivery O2 Flow Rate FiO2 07/29/17 16:45 95 Nasal Cannula 2.0 07/29/17 16:01 37.0 79 18 103/65 (78) 95 Room Air 07/29/17 14:06 88 16 95 Nasal Cannula 2.0 07/29/17 12:45 95 Nasal Cannula 2.0 07/29/17 11:26 36.7 83 20 101/64 (76) 95 Nasal Cannula 2.5 07/29/17 08:36 95 Nasal Cannula 2.0 07/29/17 07:44 36.9 75 20 103/71 (82) 97 Nasal Cannula 2.0 07/29/17 06:57 81 16 94 Nasal Cannula 2.0 07/29/17 04:00 36.8 82 20 97/67 (77) 95 Nasal Cannula 2.0 07/29/17 04:00 95 Nasal Cannula 2.0 07/29/17 01:51 98 16 94 Nasal Cannula 2.0 07/29/17 00:00 94 Nasal Cannula 2.0 07/29/17 00:00 36.9 85 20 107/69 (82) 94 Nasal Cannula 2.0 07/28/17 20:54 101 16 95 Nasal Cannula 2.0 07/28/17 20:00 94 Nasal Cannula 2.0 07/28/17 18:59 37.5 20 100/64 (76) 94 Nasal Cannula 2.0 Physical Exam General Appearance: WD/WN, no apparent distress Respiratory/Chest: lungs clear, no respiratory distress Cardiovascular: regular rate, rhythm, no murmur Abdomen: normal bowel sounds, non tender, soft, no organomegaly Laboratory Results Last 24 Hours Test 07/28/17 20:23 07/29/17 04:40 07/29/17 06:50 07/29/17 11:14 Bedside Glucose 238 mg/dl 152 mg/dl 211 mg/dl White Blood Count 6.91 K/uL Red Blood Count 3.11 M/uL Hemoglobin 9.5 g/dL Hematocrit 27.5 % Mean Corpuscular Volume 88.4 fL Mean Corpuscular Hemoglobin 30.5 pg Mean Corpuscular Hemoglobin Concent 34.5 g/dl Platelet Count 80 K/uL Mean Platelet Volume 11.1 fL Neutrophils (%) (Auto) 78.2 % Lymphocytes (%) (Auto) 2.7 % Monocytes (%) (Auto) 11.6 % Eosinophils (%) (Auto) 2.0 % Basophils (%) (Auto) 0.3 % Neutrophils # (Auto) 5.40 K/uL Lymphocytes # (Auto) 0.19 K/uL Monocytes # (Auto) 0.80 K/uL Eosinophils # (Auto) 0.14 K/uL Basophils # (Auto) 0.02 K/uL RDW Standard Deviation 56.2 fL RDW Coefficient of Variation 17.3 % Immature Granulocyte % (Auto) 5.2 % Immature Granulocyte # (Auto) 0.36 K/uL Toxic Granulation 1+ Sodium Level 131 mmol/L Potassium Level 4.7 mmol/L Chloride Level 99 mmol/L Carbon Dioxide Level 29 mmol/L Anion Gap 3.0 mmol/L Blood Urea Nitrogen 32 mg/dl Creatinine 1.30 mg/dl Est Creatinine Clear Calc Drug Dose 60.1 ml/min Estimated GFR () 66.8 Estimated GFR (Non- 57.7 BUN/Creatinine Ratio 24.6 Random Glucose 175 mg/dl Calcium Level 8.2 mg/dl Total Bilirubin 1.2 mg/dl Aspartate Amino Transf (AST/SGOT) 41 U/L Alanine Aminotransferase (ALT/SGPT) 31 U/L Alkaline Phosphatase 334 U/L Ammonia 42.0 umol/L Total Protein 4.4 gm/dl Albumin 1.7 gm/dl Globulin 2.7 gm/dl Albumin/Globulin Ratio 0.6 Test 07/29/17 16:22 Bedside Glucose 239 mg/dl Assessment and Plan Rectal bleeding---resolved Ascites--culture positive for tony so perhaps this is source of bacteremia also nausea--on zofran 8 mg every 4 hours, patient thinks perhaps medication but would be difficult to sort out since on multiple hepatic encephalopathy---peaked yesterday. today improved. Pt is awake and alert. on lactulose stooling and xifaxan, follow. cirrhosis --no complete workup done but suspect SANTOS and/or sarcoidosis elevated LFTs from cirrhosis Pancreas --fluid surounding on CT-no abd pain to suggest pancreatis--- lipase 9/ 2 normal--doubt pancreatitis.
[2017-07-29] MEDS: QUETIAPINE FUMARATE 25 MG TAB PO SCH (21:27)
[2017-07-29] MEDS: OXYCODONE HCL IR 5 MG TAB (IMMEDIATE RELEASE) PO PRN (21:42)
[2017-07-29] MEDS: ONDANSETRON INJ 8 MG in DEXTROSE 5% 50ML 50 ML IV PRN (22:04)
[2017-07-30] VITALS (11 sets, daily range): BP systolic 89–111; BP diastolic 65–72; PULSE 73–85; TEMP 36–36.8; O2SAT 90–98
[2017-07-30] MEDS: LEVALBUTEROL 1.25MG/3ML NEB INH SCH ×4 (01:49→19:03)
[2017-07-30 04:47] LABS: HEMATOCRIT 26.6 % (42-52); MEAN CELL VOLUME 88.4 fL (80-100); MEAN CORPUSCULAR HEMOGLOBIN 29.9 pg (25-34); MEAN CORPUSCULAR HGB CONC 33.8 g/dl (32-36); RED BLOOD COUNT 3.01 M/uL (4.7-6.1); WHITE BLOOD COUNT 7.44 K/uL (4.8-10.8)
[2017-07-30 05:08] LABS: BUN/CREATININE RATIO 24.8 (10-20); CREATININE 1.3 mg/dl (0.60-1.40); POTASSIUM 4.3 mmol/L (3.5-5.1)
[2017-07-30 05:09] LABS: MEAN PLATELET VOLUME 10.6 fL (7.4-10.4); PLATELET COUNT 78 K/uL (130-400)
[2017-07-30 05:10] LABS: ALB/GLOB RATIO 0.7 (0.9-2)
[2017-07-30 05:16] LABS: BASO % 0.3 %; BASO ABS # 0.02 K/uL (0-0.2); COMPLETE YES; EOS % 2.4 %; IG% 4.4 %; LYMPH % 4.7 %; LYMPH ABS # 0.35 K/uL (1.2-3.4); MONO % 16.1 %; NEUT % 72.1 %; TOXIC GRANULATION 2+
[2017-07-30] MEDS: RESTASIS~ORDER AWAITING ACTION SCH ×3 (08:00→19:40)
[2017-07-30] MEDS: ATORVASTATIN 10 MG TAB PO SCH (08:50)
[2017-07-30] MEDS: FUROSEMIDE 40 MG TAB PO SCH ×2 (08:50→17:49)
[2017-07-30] MEDS: LACTULOSE SYRUP 20 GM/30 ML UDC PO SCH ×3 (08:50→21:00)
[2017-07-30] MEDS: CASPOFUNGIN INJ 50 MG in SODIUM CHLORIDE 0.9% 250ML 250 ML IV SCH (08:50)
[2017-07-30] MEDS: PANTOprazole SOD 40 MG TAB PO SCH (08:50)
[2017-07-30] MEDS: PROPRANOLOL HCL 10 MG TAB PO SCH ×2 (08:50→21:28)
[2017-07-30] MEDS: RIFAXIMIN TAB 550 MG TAB PO SCH ×2 (08:51→21:29)
[2017-07-30] MEDS: FLUOXETINE HCL 20 MG CAP PO SCH (08:51)
[2017-07-30] MEDS: SPIRONOLACTONE 100 MG TAB PO SCH (08:51)
[2017-07-30] MEDS: CEPHALEXIN MONOHYDRATE 500 MG CAP PO SCH ×2 (08:51→21:28)
[2017-07-30] MEDS: BOOST GLUCOSE CONTROL PO SCH ×3 (08:51→17:49)
[2017-07-30] MEDS: INSULIN ASPART 100 UNITS/ML 3 ML PEN SC SCH ×4 (09:04→21:28)
[2017-07-30] MEDS: INSULIN GLARGINE SOLOSTAR 100 UNITS/ML 3 ML PEN SC SCH ×2 (09:04→21:28)
[2017-07-30] MEDS: POTASSIUM CHLORIDE 20 MEQ TABCR PO SCH ×3 (10:01→21:29)
[2017-07-30] MEDS: OXYCODONE HCL IR 5 MG TAB (IMMEDIATE RELEASE) PO PRN ×2 (10:01→21:29)
--- NOTE | 2017-07-30 13:25 | Progress Note ---
Progress Note Date of Service Jul 30, 2017. Progress Note 62-year-old male admitted from [facility] with multiple problems including rectal bleeding, recurrent fever. He has an extensive medical history including lumbar spine an infection after surgery for herniated L4-L5 disc. Multiple infectious complications including epidural abscess, osteomyelitis, infection of the hardware, loosening of the hardware, collapse of L4. he also has type 2 diabetes mellitus, so. Doses, sleep apnea, liver cirrhosis, recurrent ascites. One blood culture grew yeast. Urine culture also grew yeast. Culture of peritoneal fluid also grew yeast. No bacterial growth was noted. Culture of the PICC line tip was negative. Echocardiogram showed no evidence of endocarditis.at this point he is on caspofungin and suppressive chronic treatment with cephalexin. He is complaining of feeling weak and tired.he denied any headache. No dizziness. No chest pain. No shortness of breath. No abdominal pain. No nausea no vomiting. Has had multiple bowel movements with diarrhea related to the lactulose. His Clostridium difficile was negative. He continues to complain of back pain. His leg edema has decreased significantly. EXAMINATION: GENERAL : Well developed. Well nourished. No acute distress. VITAL SIGNS : Blood Pressure : 89/65, pulse 77, respirations 17, temperature 36.8, oxygen saturation 96% on 2 L oxygen by nasal cannula. SKIN : Warm and dry. No rash. HEENT :No mucosal abnormalities. Oxygen cannula in place. NECK : Supple. No adenopathy. No thyromegaly. No JVD. HEART: Regular heart tones with 2/6 systolic murmur. No rub no gallop. LUNGS: Clear. Normal breath sounds. ABDOMEN: Soft nontender. the abdominal incision on the left side is healed completely without any problem. He had a slight drainage from paracentesis site BACK: the incision is reported to be healed completely. EXTREMITIES: Decreased edema. Minimal residual. LABORATORY TESTS: WBC count 7440, hemoglobin 9, hematocrit 26.6, platelet count 78,000. Sodium 136, potassium 4.3, chloride 101, CO2 31, BUN 32, creatinine 1.3, glucose 193, calcium 8.0, total bilirubin 1.1, AST 34, ALT 31, alkaline phosphatase 364, ammonia level 35, total protein 4.3, albumin 1.7. ASSESSMENT: * fungal peritonitis, urinary tract infection and positive one blood culture her for fungus. * Rectal bleeding. Self-limited. * Lumbar spine infection * Multiple postoperative infectious complications of the lumbar spine * Liver cirrhosis * Type 2 diabetes mellitus * Sarcoidosis * Atrial septal defect. Status post repair. PLAN: * one dose of IV Lasix only 20 mg * Continue on his medications * Continue therapies * Planning on getting him to [facility]
[2017-07-30] MEDS ORDERED: FUROSEMIDE INJ 20 MG in SYRINGE 0 ML IV ONE (14:00)
--- NOTE | 2017-07-30 15:26 | Gastroenterology Progress Note ---
Progress Note Date of Service: Jul 30, 2017 Subjective Pt evaluation today including: conversation w/ patient, physical exam, chart review, lab review, review of studies, review of inpatient medication list cc f/u nausea HPI Pts chief complaint is nausea. States he can eat about 1/2 of his tray. Mild abd pain. No rectal bleeding Review of Systems Respiratory: No shortness of breath Cardiac: No chest pain Medications Current Inpatient Medications Medications (Trade) Dose Ordered Sig/Nathalia Route Start Time Stop Time Status Last Admin Dose Admin Acetaminophen (Tylenol Tab) 650 mg Q4H PRN PO 07/22/17 02:30 08/21/17 02:29 Atorvastatin Calcium (Lipitor Tab) 10 mg DAILY PO 07/22/17 09:00 08/21/17 08:59 07/30/17 08:50 10 MG Fluoxetine HCl (Prozac Cap) 40 mg QAM PO 07/22/17 09:00 08/21/17 08:59 07/30/17 08:51 40 MG Pantoprazole Sodium (Protonix Tab) 40 mg QAM PO 07/22/17 09:00 08/21/17 08:59 07/30/17 08:50 40 MG Prednisone (PredniSONE TAB) 20 mg QAM PO 07/22/17 09:00 08/21/17 08:59 07/30/17 08:50 20 MG Propranolol HCl (Inderal Tab) 10 mg BID PO 07/22/17 09:00 08/21/17 08:59 07/30/17 08:50 10 MG Quetiapine Fumarate (seroQUEL TAB) 25 mg HS PO 07/22/17 21:00 08/21/17 20:59 07/29/17 21:27 25 MG Spironolactone (Aldactone Tab) 50 mg DAILY PO 07/22/17 09:00 08/21/17 08:59 07/30/17 08:51 50 MG Miscellaneous Information (Order Awaiting Action) 1 ea QS N/A 07/22/17 08:00 08/21/17 07:59 07/29/17 18:46 1 EA Levalbuterol (Xopenex 1.25MG/ 3ML Neb) 1.25 mg Q6R INH 07/22/17 03:00 08/21/17 02:59 07/30/17 13:59 1.25 MG Insulin Aspart (novoLOG ASPART) SLIDING SCALE G... ACHS SC 07/22/17 07:00 08/21/17 06:59 07/30/17 13:19 9 UNITS Lactulose (Chronulac Syrup) 20 gm TID PO 07/22/17 09:00 08/21/17 08:59 07/30/17 13:07 20 GM Oxycodone HCl (Roxicodone Immediate Rel Tab) 5 mg Q4H PRN PO 07/22/17 02:45 08/05/17 02:44 07/30/17 10:01 5 MG Ondansetron HCl 8 mg/Dextrose 54 ml @ 200 mls/hr Q4H PRN IV 07/22/17 03:00 08/21/17 02:59 07/29/17 22:04 200 MLS/HR Glucose (Glucose 40% Gel) 15-30 GRAMS 15 GRAMS... UD PRN PO 07/22/17 03:15 08/21/17 03:14 Glucose (Glucose Chew Tab) 4-8 Tablets 4 Tabl... UD PRN PO 07/22/17 03:15 08/21/17 03:14 Dextrose (Dextrose 50% 50ML Syringe) 25-50ML OF 50% DW IV FOR... UD PRN IV 07/22/17 03:15 08/21/17 03:14 Glucagon (Glucagon Inj) 1 mg UD PRN SQ 07/22/17 03:15 08/21/17 03:14 Furosemide (Lasix Tab) 40 mg BIDM PO 07/22/17 07:30 08/21/17 07:29 07/30/17 08:50 40 MG Enteral Nutritional Formula (Boost Glucose Control) 1 can TIDM PO 07/22/17 16:45 08/21/17 16:44 07/30/17 10:41 1 CAN Rifaximin (Xifaxan Tab) 550 mg BID PO 07/24/17 21:00 08/23/17 20:59 07/30/17 08:51 550 MG Caspofungin 50 mg/ Sodium Chloride 260 ml @ 250 mls/hr DAILY IV 07/26/17 09:00 08/25/17 08:59 07/30/17 08:50 250 MLS/HR Insulin Glargine (Lantus Solostar Pen) 20 units BID SC 07/26/17 21:00 08/21/17 08:59 07/30/17 09:04 20 UNITS Potassium Chloride (Klor-Con Tab) 20 meq TID PO 07/27/17 09:00 08/26/17 08:59 07/30/17 13:07 20 MEQ Cephalexin Monohydrate (Keflex Cap) 500 mg BID PO 07/27/17 21:00 09/07/17 20:59 07/30/17 08:51 500 MG Heparin Sodium (Porcine) (Heparin 10 Unit/ ml 5 ml Flush) 5 ml PRN PRN FLUSH 07/29/17 01:00 08/28/17 00:59 07/30/17 10:41 5 ML Objective Vital Signs Date Time Temp Pulse Resp B/P (MAP) Pulse Ox O2 Delivery O2 Flow Rate FiO2 07/30/17 14:00 78 16 92 Nasal Cannula 2.0 07/30/17 13:59 Nasal Cannula 2.0 07/30/17 11:45 36.5 75 20 104/72 (83) 95 Nasal Cannula 2.0 07/30/17 11:30 Nasal Cannula 2.0 07/30/17 08:42 Nasal Cannula 2.0 07/30/17 08:30 74 100/67 (78) 07/30/17 07:28 36.8 77 17 89/65 (73) 96 Nasal Cannula 07/30/17 07:01 73 16 97 Nasal Cannula 2.0 07/30/17 04:17 Nasal Cannula 2.0 07/30/17 04:10 36.0 75 22 108/70 (83) 96 Nasal Cannula 2.0 07/30/17 01:49 82 16 98 Nasal Cannula 2.0 07/30/17 00:26 Nasal Cannula 2.0 07/29/17 23:40 36.9 89 20 100/60 (73) 95 Nasal Cannula 2.0 07/29/17 20:55 Nasal Cannula 2.0 07/29/17 20:18 91 16 93 Nasal Cannula 2.0 07/29/17 19:48 37.0 91 20 103/59 (74) 93 07/29/17 16:45 95 Nasal Cannula 2.0 07/29/17 16:01 37.0 79 18 103/65 (78) 95 Room Air Physical Exam General Appearance: WD/WN, no apparent distress Respiratory/Chest: lungs clear, no respiratory distress Cardiovascular: regular rate, rhythm Abdomen: normal bowel sounds, non tender, soft, no organomegaly Laboratory Results Last 24 Hours Test 07/29/17 16:22 07/29/17 20:14 07/30/17 04:38 07/30/17 06:14 Bedside Glucose 239 mg/dl 272 mg/dl 159 mg/dl White Blood Count 7.44 K/uL Red Blood Count 3.01 M/uL Hemoglobin 9.0 g/dL Hematocrit 26.6 % Mean Corpuscular Volume 88.4 fL Mean Corpuscular Hemoglobin 29.9 pg Mean Corpuscular Hemoglobin Concent 33.8 g/dl Platelet Count 78 K/uL Mean Platelet Volume 10.6 fL Neutrophils (%) (Auto) 72.1 % Lymphocytes (%) (Auto) 4.7 % Monocytes (%) (Auto) 16.1 % Eosinophils (%) (Auto) 2.4 % Basophils (%) (Auto) 0.3 % Neutrophils # (Auto) 5.36 K/uL Lymphocytes # (Auto) 0.35 K/uL Monocytes # (Auto) 1.20 K/uL Eosinophils # (Auto) 0.18 K/uL Basophils # (Auto) 0.02 K/uL RDW Standard Deviation 55.9 fL RDW Coefficient of Variation 17.3 % Immature Granulocyte % (Auto) 4.4 % Immature Granulocyte # (Auto) 0.33 K/uL Toxic Granulation 2+ Sodium Level 136 mmol/L Potassium Level 4.3 mmol/L Chloride Level 101 mmol/L Carbon Dioxide Level 31 mmol/L Anion Gap 4.0 mmol/L Blood Urea Nitrogen 32 mg/dl Creatinine 1.30 mg/dl Est Creatinine Clear Calc Drug Dose 59.5 ml/min Estimated GFR () 66.8 Estimated GFR (Non- 57.7 BUN/Creatinine Ratio 24.8 Random Glucose 193 mg/dl Calcium Level 8.0 mg/dl Total Bilirubin 1.1 mg/dl Aspartate Amino Transf (AST/SGOT) 34 U/L Alanine Aminotransferase (ALT/SGPT) 31 U/L Alkaline Phosphatase 364 U/L Ammonia 35.0 umol/L Total Protein 4.3 gm/dl Albumin 1.7 gm/dl Globulin 2.6 gm/dl Albumin/Globulin Ratio 0.7 Test 07/30/17 11:14 Bedside Glucose 220 mg/dl Assessment and Plan Rectal bleeding---resolved Ascites--culture positive for tony so perhaps this is source of bacteremia also nausea--on zofran 8 mg every 4 hours, patient thinks perhaps medication but would be difficult to sort out since on multiple--- hepatic encephalopathy---imrpoving--- Pt is awake and alert. on lactulose stooling and xifaxan, follow. cirrhosis --no complete workup done but suspect SANTOS and/or sarcoidosis elevated LFTs from cirrhosis Pancreas --fluid surounding on CT-no abd pain to suggest pancreatis--- lipase 07/22 normal--doubt pancreatitis. I am going off service tomorrow 07/31/[address] Rubio is assuming GI care then.
[2017-07-30] MEDS: QUETIAPINE FUMARATE 25 MG TAB PO SCH (21:29)
[2017-07-31] VITALS (10 sets, daily range): BP systolic 96–115; BP diastolic 57–71; PULSE 70–86; TEMP 36.6–37.1; O2SAT 91–98
[2017-07-31] MEDS: LEVALBUTEROL 1.25MG/3ML NEB INH SCH ×4 (01:44→19:24)
[2017-07-31 04:57] LABS: HEMATOCRIT 26.7 % (42-52); MEAN CELL VOLUME 88.4 fL (80-100); MEAN CORPUSCULAR HEMOGLOBIN 30.1 pg (25-34); MEAN CORPUSCULAR HGB CONC 34.1 g/dl (32-36); MEAN PLATELET VOLUME 10.9 fL (7.4-10.4); PLATELET COUNT 78 K/uL (130-400); RED BLOOD COUNT 3.02 M/uL (4.7-6.1); WHITE BLOOD COUNT 7.08 K/uL (4.8-10.8)
[2017-07-31 05:17] LABS: BUN/CREATININE RATIO 25.4 (10-20); CALCIUM 7.8 mg/dl (8.5-10.1); CREATININE 1.3 mg/dl (0.60-1.40)
[2017-07-31 05:20] LABS: ALB/GLOB RATIO 0.7 (0.9-2)
[2017-07-31 05:32] LABS: BASO % 0.3 %; BASO ABS # 0.02 K/uL (0-0.2); COMPLETE YES; EOS % 4.5 %; IG% 4.1 %; LYMPH % 5.1 %; LYMPH ABS # 0.36 K/uL (1.2-3.4); MONO % 16.1 %; NEUT % 69.9 %
[2017-07-31] MEDS: BOOST GLUCOSE CONTROL PO SCH ×4 (07:30→17:26)
[2017-07-31] MEDS: RESTASIS~ORDER AWAITING ACTION SCH ×3 (08:00→19:45)
[2017-07-31] MEDS: SPIRONOLACTONE 100 MG TAB PO SCH (08:38)
[2017-07-31] MEDS: LACTULOSE SYRUP 20 GM/30 ML UDC PO SCH ×3 (08:38→21:00)
[2017-07-31] MEDS: POTASSIUM CHLORIDE 20 MEQ TABCR PO SCH ×3 (08:38→21:50)
[2017-07-31] MEDS: PANTOprazole SOD 40 MG TAB PO SCH (08:38)
[2017-07-31] MEDS: PROPRANOLOL HCL 10 MG TAB PO SCH ×2 (08:38→21:49)
[2017-07-31] MEDS: FUROSEMIDE 40 MG TAB PO SCH ×2 (08:38→17:26)
[2017-07-31] MEDS: ATORVASTATIN 10 MG TAB PO SCH (08:38)
[2017-07-31] MEDS: CEPHALEXIN MONOHYDRATE 500 MG CAP PO SCH ×2 (08:38→21:50)
[2017-07-31] MEDS: FLUOXETINE HCL 20 MG CAP PO SCH (08:39)
[2017-07-31] MEDS: RIFAXIMIN TAB 550 MG TAB PO SCH ×2 (08:39→21:50)
[2017-07-31] MEDS: INSULIN ASPART 100 UNITS/ML 3 ML PEN SC SCH ×4 (08:43→21:52)
[2017-07-31] MEDS: INSULIN GLARGINE SOLOSTAR 100 UNITS/ML 3 ML PEN SC SCH ×2 (08:44→21:52)
[2017-07-31] MEDS: CASPOFUNGIN INJ 50 MG in SODIUM CHLORIDE 0.9% 250ML 250 ML IV SCH (09:53)
--- NOTE | 2017-07-31 18:17 | Progress Note ---
Progress Note Date of Service Jul 31, 2017. Progress Note 62-year-old male admitted from [facility] with multiple problems including rectal bleeding, recurrent fever, suspected sepsis. His medical problems are quite extensive. Since February of this year he has had multiple surgeries initially for herniated L4-L5 disc. Subsequently he developed postoperative complication with epidural abscess, osteomyelitis, loosening of the hardware, collapse of L4. His medical problems also include type 2 diabetes mellitus, sarcoidosis, atrial septal defect which was repaired, sleep apnea, arterial hypertension, peripheral neuropathy. He also has liver cirrhosis. Recurrent ascites. He has been seen in GI consultation. Patient was admitted. All his cultures were done. His urine culture grew he is not Christina. He had a paracentesis done. Culture of ascites fluid also grew he is not Christina. One blood culture also grew yeast not Christina. He has been treated with caspofungin. He had been on multiple antibiotics in the past because of his spinal infection. Patient was switched to maintenance suppressive therapy with cephalexin. He has been seen in infectious disease consultation by Dr. Chen. His condition has improved. Denied any headache or dizziness or lightheadedness. No chest pain. No shortness of breath. He has had recurrent abdominal pain. Most of the time after he takes his oral medications. No nausea no vomiting. He does have recurrent diarrhea. He is on lactulose. No further blood in his stool it resolved spontaneously. No urinary problem. He does have back pain but this pre-much under control. He had severe leg edema which is now mostly resolved. As far as his diet is concerned he does have poor appetite but it has been improving. The main issue is that he has required additional coverage with insulin because he likes to consume quite a bit of carbohydrates. We have been encouraged him to increase his protein intake instead. Today he told me that he had a very good day with therapy. He feels that he is getting stronger. He sat at the edge of the bed. He is able to move his legs on his own and he feels stronger. EXAMINATION : GENERAL: Well-developed. No acute distress VITAL SIGNS: Blood pressure 96/57, pulse 72, respiration 20, temperature 36.7, oxygen saturation 91% on room SKIN: Warm and dry. No rash. No jaundice. HEENT: Oxygen cannula in place. No mucosal abnormality. NECK: Supple. Nontender. No JVD. HEART: Regular heart sounds with 2/6 systolic murmur LUNGS: Mostly clear. Some rhonchi at the bases ABDOMEN: Soft nontender. The left sided abdominal surgical scar is completely healed. He still has minimal discharge from the site of the paracentesis on the left side. BACK: Surgical scar is completely he did EXTREMITIES: Minimal edema. No clubbing no cyanosis. GENITALIA: The edema in his penis and scrotum has markedly decreased LABORATORY TESTS : WBC count 7000 and 8T, hemoglobin 9.1, hematocrit 26.7, platelet count 78,000. Sodium 135, potassium 4.0, chloride 100, CO2 31, BUN 33, creatinine 1.3, glucose 277, calcium 7.8, total bilirubin 1.1, AST 33, AST 32, alkaline phosphatase 377, ammonia 34, total protein 4.3, albumin 1.4. ASSESSMENT : * Fungal infection with fungal peritonitis, fungal urinary tract infection, one blood culture grew fungus not Christina. * Rectal bleeding. Resolved. * Lumbar spinal infection * Sarcoidosis * Type 2 diabetes mellitus * Liver cirrhosis * Atrial septal defect which was repaired * Recurrent ascites PLAN : * Continue the same medications * Continue physical and occupational therapies * He would be continued indefinitely for now on cephalexin 500 mg twice a day * He will receive a full four-week course of caspofungin * Working on getting him back to [facility]. Updates were sent today. Working on insurance approval. If that is all accomplished then I'll transfer him tomorrow.
[2017-07-31] MEDS: QUETIAPINE FUMARATE 25 MG TAB PO SCH (21:50)
[2017-07-31] MEDS: OXYCODONE HCL IR 5 MG TAB (IMMEDIATE RELEASE) PO PRN (21:53)
[2017-08-01] VITALS (9 sets, daily range): BP systolic 97–107; BP diastolic 57–69; PULSE 68–88; TEMP 36.5–37.1; O2SAT 91–98
[2017-08-01] MEDS: LEVALBUTEROL 1.25MG/3ML NEB INH SCH ×3 (02:36→14:23)
[2017-08-01] MEDS ORDERED: CNCI50 IV (08:17)
--- NOTE | 2017-08-01 08:23 | Discharge Instructions ---
Discharge Instructions Date of Service Aug 01, 2017. Admission Reason for Admission: Fungal peritonitis Fungal urinary tract infection Fungemia Rectal bleeding. Self-limited Lumbar spinal infection Liver cirrhosis Recurrent ascites Type 2 diabetes mellitus Sarcoidosis Atrial septal defect which was repaired Sleep apnea Hyperlipidemia Depression Dyspepsia Discharge Discharge Diagnosis / Problem: fungal peritonitis. Fungemia. Lumbar spinal infection. Type 2 diabetes m Discharge Goals Goal(s): Decrease discomfort, Improve function, Increase independence, Improve disease control, Improve nutritional status Activity Recommendations Activity Level: Assistance Required Therapies: Physical Therapy, Occupational Therapy . Additional Information Patient informed of condition: Yes Advance Directives: No DNR: No Level of Care: Acute Rehab Communicable Disease: No Prognosis: Improving Verma Catheter: No Instructions / Follow-Up Instructions / Follow-Up Dr. Birmingham at [facility]. Appointment is to be scheduled end of this month Dr. Chen in infectious disease. Please call for appointment Current Hospital Diet Patient's current hospital diet: Regular Diet Discharge Diet Recommended Diet: Diabetes Type 2 Diet Procedures Procedures Performed: PICC line was changed Pending Studies Studies pending at discharge: no Physician Orders On Transfer IV Therapy: Caspofungin 50 mg IV every 24 hours for 20 days Medical Emergencies . Who to Call and When: Medical Emergencies: If at any time you feel your situation is an emergency, please call 911 immediately. . Non-Emergent Contact Non-Emergency issues call your: Primary Care Provider . . "Provider Documentation" section prepared by Hu Nielsen. . Core Measure Problem Core Measures: None
[2017-08-01] MEDS: RESTASIS~ORDER AWAITING ACTION SCH (08:36)
[2017-08-01] MEDS: BOOST GLUCOSE CONTROL PO SCH ×2 (08:38→12:39)
[2017-08-01] MEDS: CEPHALEXIN MONOHYDRATE 500 MG CAP PO SCH (08:40)
[2017-08-01] MEDS: FUROSEMIDE 40 MG TAB PO SCH (08:40)
[2017-08-01] MEDS: RIFAXIMIN TAB 550 MG TAB PO SCH (08:40)
[2017-08-01] MEDS: FLUOXETINE HCL 20 MG CAP PO SCH (08:41)
[2017-08-01] MEDS: ATORVASTATIN 10 MG TAB PO SCH (08:41)
[2017-08-01] MEDS: PANTOprazole SOD 40 MG TAB PO SCH (08:41)
[2017-08-01] MEDS: PROPRANOLOL HCL 10 MG TAB PO SCH (08:41)
[2017-08-01] MEDS: SPIRONOLACTONE 100 MG TAB PO SCH (08:41)
[2017-08-01] MEDS: CASPOFUNGIN INJ 50 MG in SODIUM CHLORIDE 0.9% 250ML 250 ML IV SCH (08:46)
[2017-08-01] MEDS: LACTULOSE SYRUP 20 GM/30 ML UDC PO SCH ×2 (09:00→13:21)
[2017-08-01] MEDS: INSULIN ASPART 100 UNITS/ML 3 ML PEN SC SCH ×2 (09:25→13:26)
[2017-08-01] MEDS: INSULIN GLARGINE SOLOSTAR 100 UNITS/ML 3 ML PEN SC SCH (09:26)
[2017-08-01] MEDS: POTASSIUM CHLORIDE 20 MEQ TABCR PO SCH ×2 (10:01→13:22)
--- NOTE | 2017-08-01 18:03 | Progress Note ---
Progress Note Date of Service Aug 01, 2017. Progress Note 62-year-old male with multiple medical problems including * Rectal bleed. Self-limited. Thought to be anal in nature. * Suspected sepsis. Bacterial cultures were all negative. He had evidence of fungal peritonitis, fungal urinary tract infection, fungemia with one blood culture growing fungus. Not tony. * Infection lumbar spine * Status post surgery for L4-L5 disc with multiple infectious complications * Liver cirrhosis * Recurrent ascites * History of atrial septal defect which was repaired * Sarcoidosis * Type 2 diabetes mellitus * Sleep apnea * Depression related mostly to his illness During his hospitalization patient was seen by Dr. Fabio Osborne in gastroenterology and Dr. Pallavi Chen in infectious disease. Overall his condition has improved. He denied any headache no dizziness no lightheadedness. Denied any chest pain. No shortness of breath. He has had recurrent abdominal pain and nausea thought to be related to his oral medications. He has had diarrhea. He is on lactulose. No urinary problem. His back pain is under control. He had severe edema of his legs scrotum and penis and that has resolved significantly. EXAMINATION: Vital signs: Blood pressure 107/69, pulse 79, respiration 20, temperature 37.1, oxygen saturation 98% on 3 L by nasal cannula Skin is warm and dry. No rash. Neck is supple without lymph node or thyroid enlargement. No JVD. Heart regular heart sounds with 2/6 systolic murmur Lungs decreased breath sounds at the bases. No rales no wheezing. Abdomen is soft nontender. He does have evidence of residual ascites. Minimal discharge from the paracentesis site left lower quadrant . Left sided abdominal incision is healing very well. Extremities minimal edema. No clubbing no cyanosis ASSESSMENT: * Fungal peritonitis * Fungal urinary tract infection * Fungemia with one blood cultures growing fungus * Infection of the lumbar spine after surgery for herniated disc which was done back in February. * Sarcoidosis * Type 2 diabetes mellitus * Recurrent ascites * Liver cirrhosis * History of atrial septal defect. Status post repair. * Sleep apnea PLAN: * He is on maintenance suppressive therapy with Keflex 500 mg twice a day * Continue on caspofungin for the full course of 4 weeks * Continue all his other medications * He was accepted to go to [facility] and that was done today. * He will be following up with Dr. Romano at [facility] toward the end of the month * He will be following up with Dr. Chen in infectious disease. Appointment to be scheduled.
--- NOTE | 2017-08-13 14:50 | Discharge Summary ---
Discharge Summary Date of Service Aug 13, 2017. Discharge Summary ADMISSION DATE: 07/22/2017 DISCHARGE DATE: 08/01/2017 DISCHARGE DIAGNOSES: * fungal peritonitis * Fungal urinary tract infection * Fungemia * Rectal bleeding, self-limited. * Lumbar spinal infection * Liver cirrhosis * Recurrent ascites * Type 2 diabetes mellitus * Sarcoidosis * Atrial septal defect which was repaired in the past * Sleep apnea * Hyperlipidemia * Depression * Dyspepsia DISCHARGE MEDICATIONS: * caspofungin 50 mg intravenously daily for 20 days * Acetaminophen 500 mg every 4 hours as needed * Albuterol nebulizer every 4 hours as needed * Atorvastatin 10 mg daily * Restasis 0.05% drops one drop in each eye twice a day * Docusate sodium 100 mg twice a day * Lovenox 40 mg subcutaneously daily * Fluoxetine 40 mg daily * Furosemide 40 mg twice a day * NovoLog insulin according to sliding scale * Bisacodyl 10 mg suppository as needed * Lantus insulin 30 units in the evening * Lactulose 30 mL by mouth 3 times a day * Xopenex high flow treatments 3 times a day * Zofran 40 mg every 6 hours as needed for nausea * Oxycodone IR 5 mg every 4 hours as needed * Pantoprazole 40 mg daily * Pentoxifylline 400 mg 3 times a day * Potassium chloride 20 mEq twice daily * Prednisone 20 mg daily * Propranolol 10 mg twice a day * Seroquel 25 mg at bedtime * Rifaximin 550 mg twice a day * Simethicone 80 mg to chew every 6 hours as needed * Spironolactone 50 mg daily CONSULTATIONS: * Dr. Pallavi Chen in infectious disease * Dr. Osborne in gastroenterology 62-year-old male [facility] with multiple problems including rectal bleeding and recurrent fever. Patient with a very complex medical history. In February of this year he had surgery for herniated L4-L5 disc. He feels faint and multiple complications after the surgery with epidural abscess, spinal infection, osteomyelitis, infection of the hardware, collapse of L4. He had multiple surgical interventions at this hospital and also at [facility]. Early on the day of admission his family noted that he was feeling tired. He denied any headache. No dizziness. No chest pain or shortness of breath. No abdominal pain. He was complaining of back pain. He had swelling of his lower extremities. He was noted to have rectal bleeding. He was transferred to the emergency room. He was evaluated. Cultures were done. He was febrile. His blood pressure was 38.7. He was started on multiple antibiotics including Levaquin, cefepime, vancomycin. Patient was admitted to PCU for further evaluation and treatment. PAST MEDICAL HISTORY, SOCIAL HISTORY, FAMILY HISTORY: As noted on admission history and physical ALLERGIES:Celebrex, penicillin. ADMISSION MEDICATIONS: As noted on the home medication list PHYSICAL EXAMINATION AND LABORATORY TESTS ARE NOTED ON ADMISSION HITORY AND PHYSICAL HOSPITAL COURSE: as noted after evaluation in the emergency room cultures were done. He was started on IV antibiotics. He was admitted to PCU. Resuscitation level I. All laboratory tests were ordered. His rectal bleeding was self-limited. He was seen in GI consultation. No further recommendation as far as any endoscopies to be done. He was seen in infectious disease consultation. Eventually his urine cause her was positive for fungus. One blood cultures was also positive for fungus. He was started on caspofungin. He developed increasing ascites. Paracentesis was done. Eventually the culture from his ascites fluid did grow fungus. his PICC line was removed. The tip of the catheter was cultured. The culture was negative. Because of the need for caspofungin for 4 weeks a new PICC line was placed. He remained afebrile. Therapies were ordered. He had a brace that he has to wear whenever he is mobilized. Eventually his antibiotics were discontinue. He was switched to maintenance suppressive treatment for his spinal infection with Keflex. I did speak with Dr. Birmingham at [facility]. His hemoglobin stabilized. He did not require any transfusion. As noted he did require a paracentesis. There was leakage of fluid from the paracentesis site. It did improve. There was no evidence of any infection of his surgical sites in his lower back and abdomen. An echocardiogram was done. There was no evidence of any endocarditis. His condition is stabilized. He was tolerating his medications. Arrangements were made for transfer back to the rehabilitation hospital.
== END 2017-08-01 16:05 | DRG 371 ==
LOC: EDBD 23:34 → C.EDB 23:38 → EDBEDREQ 07-22 02:48 → ENRESERV 07-22 02:57 → CANRESERV 07-22 02:57 → C.2T 07-22 03:12 → EDBEDREQSVC 07-22 03:17 → ENRESERV 07-22 03:26
PROVIDERS: ADMIT Internal Medicine; ATTEND Internal Medicine
PROC: 02HV33Z Insertion of Infusion Device into Superior Vena Cava, Percutaneous Approach (ICD-10-PCS; principal; 2017-07-28)
DX: K65.8 Other peritonitis (principal); J18.9 Pneumonia, unspecified organism; K92.1 Melena; R18.8 Other ascites; L03.116 Cellulitis of left lower limb; B49 Unspecified mycosis; N39.0 Urinary tract infection, site not specified; K72.90 Hepatic failure, unspecified without coma; Z98.1 Arthrodesis status; Z86.14 Personal history of Methicillin resistant Staphylococcus aureus infection; E11.43 Type 2 diabetes mellitus with diabetic autonomic (poly)neuropathy; K21.9 Gastro-esophageal reflux disease without esophagitis; D86.9 Sarcoidosis, unspecified; I10 Essential (primary) hypertension; K75.81 Nonalcoholic steatohepatitis (NASH); K74.60 Unspecified cirrhosis of liver; E87.6 Hypokalemia; M65.9 Synovitis and tenosynovitis, unspecified

== ENCOUNTER → 2017-09-13 | Outpatient (CLI) | payer BC ==
[~2017-09-13] MED LIST changes: +ACET-1256 PO; -ACET325T96 PO; +ALBINSX INH; +ATOR10TA82 PO; +BISA10SU7 PR; -CEFT1INJ6 IV; +CNCI50 IV; +DOCU100C31 PO; +ENOX40IN SQ; +FLUO40CA8 PO; -FLUT0.15 NAE; +FRS/40 PO; -FURO80TA63 PO; +INSDGI SC; -MELA3TAB PO; -NF656 TD; -OMEP40CA41 PO; +PANT40TA PO; -PROM25IN13 IV; +PROP10TA7 PO; -PROP20TA67 PO; -REPA1TAB5 PO; -RIFA300C34 PO; -SIMV20TA2 PO; -VNTHFA/IN INH
[2017-09-13 15:35] LABS: BASO % 0.6 %; BASO ABS # 0.05 K/uL (0-0.2); COMPLETE YES; EOS % 2.5 %; HEMATOCRIT 28.4 % (42-52); IG% 0.8 %; LYMPH % 10.7 %; LYMPH ABS # 0.91 K/uL (1.2-3.4); MEAN CELL VOLUME 86.3 fL (80-100); MEAN CORPUSCULAR HEMOGLOBIN 27.7 pg (25-34); MEAN PLATELET VOLUME 10.2 fL (7.4-10.4); MONO % 14.3 %; NEUT % 71.1 %; PLATELET COUNT 115 K/uL (130-400); RED BLOOD COUNT 3.29 M/uL (4.7-6.1); WHITE BLOOD COUNT 8.47 K/uL (4.8-10.8)
[2017-09-13 15:44] LABS: ALT/SGPT 36 U/L (12-78); BLOOD UREA NITROGEN 30 mg/dl (7-18); BUN/CREATININE RATIO 20.8 (10-20); CALCIUM 8.6 mg/dl (8.5-10.1); CARBON DIOXIDE 29 mmol/L (21-32); CHLORIDE 100 mmol/L (98-107); CREATININE 1.42 mg/dl (0.60-1.40); GLUCOSE 172 mg/dl (70-99); POTASSIUM 3.4 mmol/L (3.5-5.1); SODIUM 137 mmol/L (136-145)
[2017-09-13 15:47] LABS: ALB/GLOB RATIO 0.7 (0.9-2); ALKALINE PHOSPHATASE 280 U/L (45-117); AST/SGOT 42 U/L (15-37)
== END | disposition home or self-care (01) ==
LOC: C.LABSPEC 15:23
PROVIDERS: ATTEND Internal Medicine
DX: K74.60 Unspecified cirrhosis of liver (principal); E11.9 Type 2 diabetes mellitus without complications; D86.9 Sarcoidosis, unspecified

== ENCOUNTER 2017-11-23 13:03 | Inpatient (IN) | payer BC, OTHER ==
[~2017-11-23] VITALS: Ht 167.6 cm; Wt 81.6 kg
--- NOTE | 2017-11-23 13:32 | EMERGENCY ROOM VISIT NOTE ---
History First contact with patient: 13:11 Chief Complaint: INFECTION Stated Complaint: HERNIA SURGERY INCISION SPLIT, SEEPING History of Present Illness The patient is a 62 year old male who presents to the Emergency Room with complaints of redness around an abdominal incision with some small open areas which are seeping.. The patient's states she noticed the drainage yesterday. She called his family physician and was instructed to come to the emergency room. The patient also states that there is redness around the area but denies any pain. He does admit that he has a chronic hernia in the left lower abdomen from recurrent back surgeries which they use the anterior approach. The patient denies any fever, head congestion or chest pain. The states that she thinks he is more short of breath although the patient does not agree. The patient denies any nausea or vomiting. He denies any change in bowel habits. The patient states that his blood sugar this morning was 188. The patient has had recurrent sepsis in the past. He is on prophylactic Keflex 500 mg twice a day. The patient denies any urinary symptoms of frequency, urgency or dysuria. Review of Systems 10 system review was performed and was negative unless stated otherwise history of present illness. 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 sepsis (9) gi bleed, ?sepsis (10) Gram negative septicemia (11) HEPATIC ENCEPHALOPATHY. SARCOIDOSIS. DM2,POST LUMBAR DISC SURGERY (12) HERNIATED L4-L5 DISC (13) Hyperlipidemia (14) Hypertension (15) Infection of lumbar spine (16) Kidney stone (17) Lumbar stenosis with neurogenic claudication (18) Meningitis (19) MSC,SEVERE HYPO K, LUMBAR SPINE ABCESS,MALNUTRITION, CIRRHOSIS (20) MSC. FEVER.,?MENINGITIS,DM2,SARCOIDOSIS,SLEEP APNEA (21) Obesity (22) Post op infection (23) Sarcoidosis (24) Septal defect (25) SEVERE CELLULITIS L LEG,SEPSIS SYNDROME (26) Sleep apnea (27) Thrombocytopenia Family History Patient reports no known family medical history. Social History Smoking Status: Never Smoker Alcohol Use: none Drug Use: none Marital Status: Housing Status: lives with family Occupation Status: retired Current/Historical Medications Scheduled Atorvastatin (Lipitor), 10 MG PO DAILY Caspofungin (Cancidas), 50 MG IV QD Cyclosporine (Ophth) (Restasis), 1 DROP OPB BID Fluoxetine (Prozac), 40 MG PO QAM Furosemide (Lasix), 40 MG PO BID Insulin Aspart (Novolog Penfill), SC AC Insulin Glargine (Lantus), Unknown Dose SC QPM Lactulose (Chronulac), 30 ML PO BID Levalbuterol (Levalbuterol HCl), 1.25 MG INH TID Pantoprazole (Protonix), 40 MG PO QAM Potassium Ext Rel (Klor-Con), 20 MEQ PO BIDM Prednisone (Prednisone), 20 MG PO QAM Propranolol (Inderal), 10 MG PO DAILY Scheduled PRN Acetaminophen (Tylenol), 500 MG PO Q4H PRN for Pain Albuterol Sulf (Albuterol Sulfate), 2.5 MG INH Q4H PRN for SOB/Wheezing Ondansetron Hcl (Zofran), 4 MG PO Q4 PRN for Nausea Oxycodone Ir (Roxicodone Ir), 5 MG PO Q4H PRN for Moderate Pain Physical Exam Vital Signs Date Time Temp Pulse Resp B/P (MAP) Pulse Ox O2 Delivery O2 Flow Rate FiO2 11/23/17 14:57 77 151/85 96 Room Air 11/23/17 13:53 75 159/85 98 Room Air 11/23/17 13:31 99 Room Air 11/23/17 13:05 36.7 79 24 140/84 98 Room Air Physical Exam GENERAL: 62-year-old male appears in no acute distress. MENTAL Status: Alert and oriented 3. MOUTH: Mucosa is slightly dry. NECK: Supple, no lymphadenopathy noted. No carotid bruits noted. LUNGS: Clear auscultation without wheezes rales or rhonchi. CARDIAC: Regular rate and rhythm with 3/6 murmur noted at both the right and the left sternal borders.. Pulses is full and equal throughout. BACK: No CVA tenderness noted. ABDOMEN: Positive bowel sounds all 4 quadrants. Soft, there is a angulated scar noted in the left lower quadrant consistent with his prior surgeries. There are a few punctate open areas along the scar line out any purulent drainage noted at this time. There is diffuse erythema over the left lower abdomen and a large hernia is noted in the left lower quadrant. The hernia is not reducible. There is increased temperature to touch over the entire left lower abdomen. The patient is not tender to palpation in this area or in the remainder of the abdomen. EXTREMITIES: No cyanosis or edema noted. SKIN: The patient has multiple scabbed areas on both arms and legs. Medical Decision & Procedures ER Provider Diagnostic Interpretation: ULTRASOUND R VENOUS DOPP LOWER EXT UNILAT CLINICAL HISTORY: Abnormal CT scan with probable DVT. Ultrasound recommended for confirmation COMPARISON STUDY: CT scan dated 11/23/2017 FINDINGS: There is thrombus within the right common femoral and proximal superficial femoral vein. No thrombus is visualized within the popliteal vein or proximal trifurcation veins of the calf. There is a 3 x 1 x 1.7 cm right popliteal cyst. IMPRESSION: Right lower extremity DVT involving the common femoral and proximal superficial femoral vein. Electronically signed by: Ian Jones M.D. 11/23/2017 4:32 PM Dictated Date/Time: 11/23/2017 4:29 PM CHEST ONE VIEW PORTABLE CLINICAL HISTORY: sob dyspnea COMPARISON STUDY: March 2017 FINDINGS: Chronic elevation right hemidiaphragm. Lungs are considered clear. Mild stable cardiomegaly. IMPRESSION: No acute process. Chronic changes as noted. The above report was generated using voice recognition software. It may contain grammatical, syntax or spelling errors. Electronically signed by: Naga Vázquez M.D. 11/23/2017 2:11 PM Dictated Date/Time: 11/23/2017 2:10 PM ABD/PELVIS IV CONTRAST ONLY CLINICAL HISTORY: 62 years-old Male presenting with left lower quadrant draining/reddness, hernia surgery, incision splitting open and seeping. TECHNIQUE: Multidetector CT of the abdomen and pelvis was performed after the administration of intravenous contrast. IV contrast: 93 mL of Optiray 320. A dose lowering technique was used consistent with the principles of ALARA (as low as reasonably achievable). COMPARISON: 07/22/2017. CT DOSE (mGy.cm): The estimated cumulative dose is 1375.28 mGy.cm. 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 Lung bases: Minimal basilar opacities, likely atelectasis. Overall decreased peribronchovascular and dependent consolidation from prior. Calcified granuloma noted in the left lower lobe. Multichamber enlargement of the heart. Postsurgical changes of the interatrial septum. Coronary artery and aortic valve calcification. No pericardial or pleural effusion. Liver: Nodular contour of the liver consistent with cirrhosis. Allowing for the single phase of contrast, no focal liver lesion. Patent hepatic vasculature. Biliary: No intrahepatic or extrahepatic biliary ductal dilatation. Gallbladder decompressed. Pancreas: Decreased peripancreatic fluid and inflammatory change. Pancreatic parenchyma normal-appearing. Spleen: Mildly enlarged measuring slightly more than 13 cm in maximal sagittal dimension. Adrenal glands: Normal. Kidneys and ureters: Well-defined hypodensity in the left kidney likely simple cyst. Mild cortical thinning may be present. Nonobstructing left renal calculus measures 5 mm. No hydronephrosis. Normal ureters. Bladder: Normal. Pelvic organs: Prostate and seminal vesicles normal. Bowel: Limited diverticulosis of the optimal sigmoid colon. No bowel obstruction. Feces in the small bowel could suggest delayed transit. Duodenal diverticulum noted at the level of the pancreatic head. Mild small bowel wall thickening in the jejunum could relate to portal enteropathy. Peritoneal cavity: Moderate amount of simple appearing ascites in the abdomen and pelvis. There is also a peritoneal defect allowing herniation of ascites into the left retroperitoneum as well as through the anterior peritoneum where there is both interfascial loculated ascites as well as more superficial ascites in the subcutaneous tissue of the left lower quadrant. The volume of herniated ascites has increased from prior. No internal complexity. No free air. Lymph nodes: No enlarged lymph nodes in the abdomen or pelvis. Vasculature: Slight expansion of the right superficial femoral vein and right common femoral vein with a suspected filling defect worrisome for thrombus (series 3 image 455). Atherosclerosis of the normal caliber abdominal aorta. Abdominal wall: Fat-containing right inguinal hernia. Extensive skin thickening and subcutaneous infiltration along the left lateral abdominal wall and left lower quadrant. Musculoskeletal: Posterior lumbar fusion hardware with bridging across the sacroiliac joints. Compression deformity of the L1 vertebral body. This is new from prior. Severe osteopenia. IMPRESSION: 1. Interval development of a compression fracture of L1 in the setting of severe osteopenia. 2. Moderate ascites with increased herniation into the left retroperitoneum, left anterior abdominal wall musculature, and left anterior subcutaneous tissue. The surrounding skin thickening and subcutaneous infiltration in the left anterolateral abdominal wall could suggest associated cellulitis. No internal complexity of the herniated/loculated fluid. Sterility of these collections cannot be confirmed by CT. 3. Interval development of a suspected deep venous thrombosis in the right common and superficial femoral veins. This could be confirmed with lower extremity Doppler venous ultrasound. 4. Cirrhosis with portal hypertension evidenced by mild spinal megaly and ascites. 5. Bibasilar atelectasis. The report will be called/faxed according to standard departmental protocol. Electronically signed by: Jayro Frankel M.D. 11/23/2017 3:12 PM Dictated Date/Time: 11/23/2017 2:58 PM The status of this report is Signed. Draft = Not yet reviewed or approved by Radiologist. Signed = Reviewed and approved by Radiologist. <AttendingPhy></AttendingPhy> <FamilyPhy>Hu Ackerman M.D.</FamilyPhy> < PrimaryPhy>Hu Ackerman M.D.</PrimaryPhy> <UnitNumber>[id number]</ UnitNumber> <VisitNumber>[id number]</VisitNumber> <PatientName>ALEXIS FENG JR</PatientName> <DateOfBirth>1955</DateOfBirth> <Location>[facility]</ Location> <ServiceDate>11/23/17</ServiceDate> <MNE>ESINDI</MNE> <OrderingPhy> Antonette Vázquez PA-C</OrderingPhy> <OrderingPhyMNE>f rep ord dr zapata</ OrderingPhyMNE> <DictatingPhyMNE>f rep dict dr zapata</DictatingPhyMNE> <CCListMNE> f rep ct mne</CCListMNE> <AdmittingPhyMNE>f pt admit dr zapata</AdmittingPhyMNE> < AttendingPhyMNE>f pt attend LUMBAR SPINE WITH CLINICAL HISTORY: 62 years-old Male with prior surgeries, incisional drainage/. Acute low back pain with history of prior lumbar spine surgery TECHNIQUE: Multiple axial CT images of the lumbar spine were obtained with the use of intrathecal contrast. Coronal and sagittal reformats were generated from the axial data set and submitted for review. A dose lowering technique was utilized adhering to the principles of ALARA. COMPARISON: CT abdomen and pelvis of same day, lumbar spine radiographs 05/19/2017, lumbar spine CT 05/02/2017, CT abdomen and pelvis 07/22/2017. FINDINGS: Postoperative changes of laminectomy noted at the L4 level. Posterior interbody noel and screw fusion hardware extends from L2-S1 with cannulated screws extending into the bilateral iliac wings. Prior hardware removal at the L4 and L5 levels. Bones are moderately demineralized. There is new 30% anterior endplate compression deformity of the L1 vertebral body with associated vacuum disc phenomenon at T12-L1. Air is noted within the anterior aspect of the L1 vertebral body suggesting associated avascular necrosis with vertebral body collapse. No retropulsion or high-grade central canal stenosis. There is 9 mm anterolisthesis L4 on L5 which has progressed from prior CT lumbar spine, however appears to be unchanged from CT study dated 07/22/2017. There is unchanged positioning of orthopedic linear hardware extending from L3 to the L5-S1 level. There is fragmentation with loss of vertebral body height involving the L4 and L5 vertebral bodies which also appears unchanged from CT dated 07/22/2017. Calcifications are seen of the posterior longitudinal ligament. Vacuum disc phenomenon seen at L2-L3. No definite high-grade central canal or foraminal narrowing, however CT is limited compared to that of MRI for evaluation of the central canal and foramina. No drainable fluid collections or abscess identified. Mild volume of ascites is noted within the abdomen and pelvis. Small duodenal diverticulum. 6 mm nonobstructing calculus of the interpolar left kidney. Urinary bladder distention. IMPRESSION: 1. Extensive postoperative changes of the lumbar spine as above which appears generally unchanged from comparison CT abdomen and pelvis 07/22/2017. Prior hardware removal at the L4 and L5 levels. 2. No focal drainable fluid collection or abscess identified at this time. 3. 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 No associated retropulsion, high-grade central canal or foraminal narrowing. 4. Intra-abdominal findings as above, further discussed on CT abdomen and pelvis of same day. The above report was generated using voice recognition software. It may contain grammatical, syntax or spelling errors. Electronically signed by: Christian Dia M.D. 11/23/2017 3:16 PM Dictated Date/Time: 11/23/2017 2:58 PM The status of this report is Signed. Draft = Not yet reviewed or approved by Radiologist. Signed = Reviewed and approved by Radiologist. <AttendingPhy></AttendingPhy> <FamilyPhy>Hu Ackerman M.D.</FamilyPhy> < PrimaryPhy>Hu Ackerman M.D.</PrimaryPhy> <UnitNumber>[id number]</ UnitNumber> <VisitNumber>[id number]</VisitNumber> <PatientName>MARGOTAKBARRADAMESALEXIS JR</PatientName> <DateOfBirth>1955</DateOfBirth> <Location>[facility]</ Location> <ServiceDate>11/23/17</ServiceDate> <MNE>ESINDI</MNE> <OrderingPhy> Antonette Vázquez PA-C</OrderingPhy> Laboratory Results 11/23/17 13:29 Red Blood Count 3.35, Mean Corpuscular Volume 86.0, Mean Corpuscular Hemoglobin 27.2, Mean Corpuscular Hemoglobin Concent 31.6, Mean Platelet Volume 9.9, Neutrophils (%) (Auto) 70.8, Lymphocytes (%) (Auto) 12.9, Monocytes (%) (Auto) 11.6, Eosinophils (%) (Auto) 3.5, Basophils (%) (Auto) 0.2, Neutrophils # (Auto ) 4.44, Lymphocytes # (Auto) 0.81, Monocytes # (Auto) 0.73, Eosinophils # (Auto ) 0.22, Basophils # (Auto) 0.01 11/23/17 13:29 Test 11/23/17 13:29 11/23/17 13:38 11/23/17 15:40 White Blood Count 6.27 K/uL (4.8-10.8) Red Blood Count 3.35 M/uL (4.7-6.1) Hemoglobin 9.1 g/dL (14.0-18.0) Hematocrit 28.8 % (42-52) Mean Corpuscular Volume 86.0 fL (80-100) Mean Corpuscular Hemoglobin 27.2 pg (25-34) Mean Corpuscular Hemoglobin Concent 31.6 g/dl (32-36) Platelet Count 118 K/uL (130-400) Mean Platelet Volume 9.9 fL (7.4-10.4) Neutrophils (%) (Auto) 70.8 % Lymphocytes (%) (Auto) 12.9 % Monocytes (%) (Auto) 11.6 % Eosinophils (%) (Auto) 3.5 % Basophils (%) (Auto) 0.2 % Neutrophils # (Auto) 4.44 K/uL (1.4-6.5) Lymphocytes # (Auto) 0.81 K/uL (1.2-3.4) Monocytes # (Auto) 0.73 K/uL (0.11-0.59) Eosinophils # (Auto) 0.22 K/uL (0-0.5) Basophils # (Auto) 0.01 K/uL (0-0.2) RDW Standard Deviation 57.8 fL (36.4-46.3) RDW Coefficient of Variation 18.6 % (11.5-14.5) Immature Granulocyte % (Auto) 1.0 % Immature Granulocyte # (Auto) 0.06 K/uL (0.00-0.02) Prothrombin Time 11.8 SECONDS (9.0-12.0) Prothromb Time International Ratio 1.1 (0.9-1.1) Activated Partial Thromboplast Time 28.6 SECONDS (21.0-31.0) Partial Thromboplastin Ratio 1.1 Anion Gap 4.0 mmol/L (3-11) Est Creatinine Clear Calc Drug Dose 39.7 ml/min Estimated GFR () 45.7 Estimated GFR (Non- 39.4 BUN/Creatinine Ratio 22.2 (10-20) Lactic Acid Level 1.0 mmol/L (0.4-2.0) Calcium Level 8.1 mg/dl (8.5-10.1) Total Bilirubin 0.8 mg/dl (0.2-1) Direct Bilirubin 0.4 mg/dl (0-0.2) Aspartate Amino Transf (AST/SGOT) 40 U/L (15-37) Alanine Aminotransferase (ALT/SGPT) 27 U/L (12-78) Alkaline Phosphatase 336 U/L (45-117) Total Protein 6.4 gm/dl (6.4-8.2) Albumin 2.4 gm/dl (3.4-5.0) Lipase 607 U/L (73-393) Ammonia 20.0 umol/L (11-32) Urine Color YELLOW Urine Appearance CLEAR (CLEAR) Urine pH 5.0 (4.5-7.5) Urine Specific [place] 1.020 (1.000-1.030) Urine Protein NEG (NEG) Urine Glucose (UA) NEG (NEG) Urine Ketones NEG (NEG) Urine Occult Blood 1+ (NEG) Urine Nitrite NEG (NEG) Urine Bilirubin NEG (NEG) Urine Urobilinogen NEG (NEG) Urine Leukocyte Esterase NEG (NEG) Urine WBC (Auto) 1-5 /hpf (0-5) Urine RBC (Auto) 5-10 /hpf (0-4) Urine Hyaline Casts (Auto) 0 /lpf (0-5) Urine Epithelial Cells (Auto) 0-5 /lpf (0-5) Urine Bacteria (Auto) NEG (NEG) Medications Administered Medications (Trade) Dose Ordered Sig/Nathalia Route Start Time Stop Time Status Last Admin Dose Admin Sodium Chloride 1,000 ml @ 999 mls/hr Q1H1M STAT IV 11/23/17 15:51 11/23/17 16:51 11/23/17 15:51 999 MLS/HR ED Course The patient was evaluated. The patient's EMR medication list were reviewed. IV access was obtained. The patient was placed on a monitor and continuous pulse ox. Oxygen was started. CBC and differential, coags, lactic acid, or renal profile, LFTs and lipase levels were ordered. Ammonia level was ordered. Urinalysis was ordered. Portable chest x-ray was ordered and interpreted by the radiologist as above. CT of the lumbar spine with IV contrast as well as a CT of the abdomen with IV contrast was ordered. The patient's case was discussed with Dr. Stock who agreed with treatment plan.. Labs are reviewed and the patient's white count was normal. The patient's hemoglobin and hematocrit were low but were baseline. The patient's ammonia level was normal as well as his lactic acid. Patient's creatinine was slightly elevated at 1.78. Since this was slightly over the cut off for a CAT scan but due to the the patient's history and possible abscess the patient was given the contrast. He will be treated with another liter of saline post CT. CT of the abdomen and lumbar spine revealed increased ascites of the abdomen extending into the left retroperitoneal area. It also showed a L1 compression fracture and was suspicious for a DVT in the right common and superficial femoral vein. Venous Doppler of the right lower extremity was ordered. The patient was independently evaluated by Dr. Stock. Hospitalist was consulted for admission. Medical Decision Differential diagnosis include cellulitis, abscess, ascites, sepsis Due to the multiple abnormal findings noted on the CT the patient will be admitted for further evaluation and treatment. [place] Drug Monitoring [place] Search Results: patient reviewed within database Medication Reconcilliation Current Medication List: was personally reviewed by oh Blood Pressure Screening Patient's blood pressure: Normal blood pressure Impression Primary Impression: Cellulitis of left abdominal wall Additional Impressions: Ascites Lumbar compression fracture Dvt femoral (deep venous thrombosis) Departure Information Dispostion Being Evaluated By Hospitalist Condition GOOD Referrals Hu Ackerman M.D. (PCP) Patient Instructions My [facility] Problem Qualifiers Additional Impressions: Ascites Ascites type: other type Qualified Codes: R18.8 - Other ascites Lumbar compression fracture Encounter type: initial encounter Lumbar vertebra fracture level: L1 Fracture type: closed Qualified Codes: S32.010A - Wedge compression fracture of first lumbar vertebra, initial encounter for closed fracture Dvt femoral (deep venous thrombosis) Chronicity: acute Laterality: right Qualified Codes: I82.411 - Acute embolism and thrombosis of right femoral vein
[2017-11-23] MEDS ORDERED: OPTIRAY 320 IV PRN (14:00)
[2017-11-23 14:02] LABS: BASO % 0.2 %; BASO ABS # 0.01 K/uL (0-0.2); EOS % 3.5 %; EOS ABS # 0.22 K/uL (0-0.5); HEMATOCRIT 28.8 % (42-52); HEMOGLOBIN 9.1 g/dL (14.0-18.0); IG# 0.06 K/uL (0.00-0.02); LYMPH % 12.9 %; LYMPH ABS # 0.81 K/uL (1.2-3.4); MEAN CORPUSCULAR HEMOGLOBIN 27.2 pg (25-34); MEAN CORPUSCULAR HGB CONC 31.6 g/dl (32-36); MEAN PLATELET VOLUME 9.9 fL (7.4-10.4); MONO % 11.6 %; MONO ABS # 0.73 K/uL (0.11-0.59); NEUT % 70.8 %; NEUT ABS # 4.44 K/uL (1.4-6.5); PLATELET COUNT 118 K/uL (130-400); RED CELL DISTRIBUTION WIDTH CV 18.6 % (11.5-14.5); RED CELL DISTRIBUTION WIDTH SD 57.8 fL (36.4-46.3); WHITE BLOOD COUNT 6.27 K/uL (4.8-10.8)
--- NOTE | 2017-11-23 14:12 | DIAGNOSTIC IMAGING REPORT ---
CHEST ONE VIEW PORTABLE CLINICAL HISTORY: sob dyspnea COMPARISON STUDY: March 2017 FINDINGS: Chronic elevation right hemidiaphragm. Lungs are considered clear. Mild stable cardiomegaly. IMPRESSION: No acute process. Chronic changes as noted. The above report was generated using voice recognition software. It may contain grammatical, syntax or spelling errors. Electronically signed by: Naga Vázquez M.D. 11/23/2017 2:11 PM Dictated Date/Time: 11/23/2017 2:10 PM
[2017-11-23 14:14] LABS: INR 1.1 (0.9-1.1); PTT PATIENT 28.6 SECONDS (21.0-31.0)
[2017-11-23 14:20] LABS: ALBUMIN 2.4 gm/dl (3.4-5.0); CALCIUM 8.1 mg/dl (8.5-10.1); CREATININE 1.78 mg/dl (0.60-1.40); POTASSIUM 3.4 mmol/L (3.5-5.1)
[2017-11-23 14:23] LABS: TOTAL PROTEIN 6.4 gm/dl (6.4-8.2)
--- NOTE | 2017-11-23 15:14 | DIAGNOSTIC IMAGING REPORT ---
ABD/PELVIS IV CONTRAST ONLY CLINICAL HISTORY: 62 years-old Male presenting with left lower quadrant draining/reddness, hernia surgery, incision splitting open and seeping. TECHNIQUE: Multidetector CT of the abdomen and pelvis was performed after the administration of intravenous contrast. IV contrast: 93 mL of Optiray 320. A dose lowering technique was used consistent with the principles of ALARA (as low as reasonably achievable). COMPARISON: 07/22/2017. CT DOSE (mGy.cm): The estimated cumulative dose is 1375.28 mGy.cm. FINDINGS: [employer] topogram: Lumbar fusion hardware. Lung bases: Minimal basilar opacities, likely atelectasis. Overall decreased peribronchovascular and dependent consolidation from prior. Calcified granuloma noted in the left lower lobe. Multichamber enlargement of the heart. Postsurgical changes of the interatrial septum. Coronary artery and aortic valve calcification. No pericardial or pleural effusion. Liver: Nodular contour of the liver consistent with cirrhosis. Allowing for the single phase of contrast, no focal liver lesion. Patent hepatic vasculature. Biliary: No intrahepatic or extrahepatic biliary ductal dilatation. Gallbladder decompressed. Pancreas: Decreased peripancreatic fluid and inflammatory change. Pancreatic parenchyma normal-appearing. Spleen: Mildly enlarged measuring slightly more than 13 cm in maximal sagittal dimension. Adrenal glands: Normal. Kidneys and ureters: Well-defined hypodensity in the left kidney likely simple cyst. Mild cortical thinning may be present. Nonobstructing left renal calculus measures 5 mm. No hydronephrosis. Normal ureters. Bladder: Normal. Pelvic organs: Prostate and seminal vesicles normal. Bowel: Limited diverticulosis of the optimal sigmoid colon. No bowel obstruction. Feces in the small bowel could suggest delayed transit. Duodenal diverticulum noted at the level of the pancreatic head. Mild small bowel wall thickening in the jejunum could relate to portal enteropathy. Peritoneal cavity: Moderate amount of simple appearing ascites in the abdomen and pelvis. There is also a peritoneal defect allowing herniation of ascites into the left retroperitoneum as well as through the anterior peritoneum where there is both interfascial loculated ascites as well as more superficial ascites in the subcutaneous tissue of the left lower quadrant. The volume of herniated ascites has increased from prior. No internal complexity. No free air. Lymph nodes: No enlarged lymph nodes in the abdomen or pelvis. Vasculature: Slight expansion of the right superficial femoral vein and right common femoral vein with a suspected filling defect worrisome for thrombus (series 3 image 455). Atherosclerosis of the normal caliber abdominal aorta. Abdominal wall: Fat-containing right inguinal hernia. Extensive skin thickening and subcutaneous infiltration along the left lateral abdominal wall and left lower quadrant. Musculoskeletal: Posterior lumbar fusion hardware with bridging across the sacroiliac joints. Compression deformity of the L1 vertebral body. This is new from prior. Severe osteopenia. IMPRESSION: 1. Interval development of a compression fracture of L1 in the setting of severe osteopenia. 2. Moderate ascites with increased herniation into the left retroperitoneum, left anterior abdominal wall musculature, and left anterior subcutaneous tissue. The surrounding skin thickening and subcutaneous infiltration in the left anterolateral abdominal wall could suggest associated cellulitis. No internal complexity of the herniated/loculated fluid. Sterility of these collections cannot be confirmed by CT. 3. Interval development of a suspected deep venous thrombosis in the right common and superficial femoral veins. This could be confirmed with lower extremity Doppler venous ultrasound. 4. Cirrhosis with portal hypertension evidenced by mild spinal megaly and ascites. 5. Bibasilar atelectasis. The report will be called/faxed according to standard departmental protocol. Electronically signed by: Jayro Frankel M.D. 11/23/2017 3:12 PM Dictated Date/Time: 11/23/2017 2:58 PM
--- NOTE | 2017-11-23 15:18 | DIAGNOSTIC IMAGING REPORT ---
LUMBAR SPINE WITH CLINICAL HISTORY: 62 years-old Male with prior surgeries, incisional drainage/. Acute low back pain with history of prior lumbar spine surgery TECHNIQUE: Multiple axial CT images of the lumbar spine were obtained with the use of intrathecal contrast. Coronal and sagittal reformats were generated from the axial data set and submitted for review. A dose lowering technique was utilized adhering to the principles of ALARA. COMPARISON: CT abdomen and pelvis of same day, lumbar spine radiographs 05/19/2017, lumbar spine CT 05/02/2017, CT abdomen and pelvis 07/22/2017. FINDINGS: Postoperative changes of laminectomy noted at the L4 level. Posterior interbody noel and screw fusion hardware extends from L2-S1 with cannulated screws extending into the bilateral iliac wings. Prior hardware removal at the L4 and L5 levels. Bones are moderately demineralized. There is new 30% anterior endplate compression deformity of the L1 vertebral body with associated vacuum disc phenomenon at T12-L1. Air is noted within the anterior aspect of the L1 vertebral body suggesting associated avascular necrosis with vertebral body collapse. No retropulsion or high-grade central canal stenosis. There is 9 mm anterolisthesis L4 on L5 which has progressed from prior CT lumbar spine, however appears to be unchanged from CT study dated 07/22/2017. There is unchanged positioning of orthopedic linear hardware extending from L3 to the L5-S1 level. There is fragmentation with loss of vertebral body height involving the L4 and L5 vertebral bodies which also appears unchanged from CT dated 07/22/2017. Calcifications are seen of the posterior longitudinal ligament. Vacuum disc phenomenon seen at L2-L3. No definite high-grade central canal or foraminal narrowing, however CT is limited compared to that of MRI for evaluation of the central canal and foramina. No drainable fluid collections or abscess identified. Mild volume of ascites is noted within the abdomen and pelvis. Small duodenal diverticulum. 6 mm nonobstructing calculus of the interpolar left kidney. Urinary bladder distention. IMPRESSION: 1. Extensive postoperative changes of the lumbar spine as above which appears generally unchanged from comparison CT abdomen and pelvis 07/22/2017. Prior hardware removal at the L4 and L5 levels. 2. No focal drainable fluid collection or abscess identified at this time. 3. 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 No associated retropulsion, high-grade central canal or foraminal narrowing. 4. Intra-abdominal findings as above, further discussed on CT abdomen and pelvis of same day. The above report was generated using voice recognition software. It may contain grammatical, syntax or spelling errors. Electronically signed by: Christian Dia M.D. 11/23/2017 3:16 PM Dictated Date/Time: 11/23/2017 2:58 PM
[2017-11-23] MEDS ORDERED: SODIUM CHLORIDE 0.9% 1000ML 1,000 ML IV STA (15:51)
--- NOTE | 2017-11-23 16:04 | EMERGENCY ROOM VISIT NOTE ---
ED Visit Note First contact with patient: 13:11 I did evaluate and examine this patient myself. I did guide management for the patient. I agree with the APC's assessment as discussed. Please see the APC's dictation for further details. I did independently review the CT scan and blood work. He will be admitted for IV antibiotics and further evaluation.
--- NOTE | 2017-11-23 16:33 | DIAGNOSTIC IMAGING REPORT ---
ULTRASOUND R VENOUS DOPP LOWER EXT UNILAT CLINICAL HISTORY: Abnormal CT scan with probable DVT. Ultrasound recommended for confirmation COMPARISON STUDY: CT scan dated 11/23/2017 FINDINGS: There is thrombus within the right common femoral and proximal superficial femoral vein. No thrombus is visualized within the popliteal vein or proximal trifurcation veins of the calf. There is a 3 x 1 x 1.7 cm right popliteal cyst. IMPRESSION: Right lower extremity DVT involving the common femoral and proximal superficial femoral vein. Electronically signed by: Ian Jones M.D. 11/23/2017 4:32 PM Dictated Date/Time: 11/23/2017 4:29 PM
[2017-11-23] MEDS ORDERED: SPR25 PO (17:40)
[2017-11-23] MEDS ORDERED: ACETAMINOPHEN 500 MG TAB PO PRN (17:45)
[2017-11-23] MEDS ORDERED: POLYETHYLENE (MIRALAX) 17 GM PACK PO PRN (17:45)
[2017-11-23] MEDS ORDERED: ALUMINUM/MAGNESIUM/SIMETH (MAALOX MAX) 30 ML UDC PO PRN (17:45)
[2017-11-23] MEDS ORDERED: ONDANSETRON INJ 2 MG/ML 2 ML VIAL IV PRN (17:45)
[2017-11-23] MEDS ORDERED: GLUCAGON FOR INJ 1 MG VIAL SQ PRN (17:45)
[2017-11-23] MEDS ORDERED: ONDANSETRON 4 MG TAB PO PRN (17:45)
[2017-11-23] MEDS ORDERED: MAGNESIUM HYDROXIDE SUSP 30 ML UDC PO PRN (17:45)
[2017-11-23] MEDS ORDERED: DEXTROSE 50% 50 ML SYR IV PRN (17:45)
[2017-11-23] MEDS ORDERED: GLUCOSE 10 TABS/TUBE PO PRN (17:45)
[2017-11-23] MEDS ORDERED: GLUCOSE 40% GEL 15 GM TUBE PO PRN (17:45)
--- NOTE | 2017-11-23 19:01 | History and Physical ---
History & Physical Date & Time of Service: Nov 23, 2017 at 19:00 Chief Complaint: Hernia Surgery Incision Split, Seeping Primary Care Physician: Hu Ackerman M.D. History of Present Illness Source: patient, spouse Mr. 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 Most of the HPI obtained from as patient answers appropriately but is mildly lethargic and mostly resting with eyes closed. She states he has had small open wounds around his abdominal incision that has been draining clear fluid. She states fluid has slight yellow tinge when it weeks on his shirt. She does note that his abdominal girth is larger than normal and imaging supports moderate amounts of ascites. She states he does have occasional paracentesis for his ascites with the last tap in June prior to his last surgical intervention. Patient has subsequently developed a LLQ hernia that is reducible and produces no pain for him. He denies any fever/chills or abdominal pain. States the redness does not bother him. It is slightly warm to touch and clear fluid is minimally leaking from the top aspect of his surgical incision but incision is not open. No tenderness to palpation of this area. He has been taking suppressive Keflex 500 mg BID. Patient thinks he gets frequent redness in this area but states that prior to a couple days ago it was not red. It is minimally erythematous. Imaging supports findings suggesting a cellulitis. Given the leaking fluid and erythema/irritation a fistula is possible. also notes patient is more SOB and relates this to his abdominal distention but patient denies SOB. Patient is lethargic but can contribute to history and largely answers questions appropriately. However will intermittently laugh when it appears he is just resting. He has a history of ETOH abuse but states he does not drink anymore. When asked about illegal drugs he stated "just weed" and when the said that he doesn't he looked at her and ask what he just said, then closed his eyes. Imaging also shows R common femoral DVT. He denies H/O DVT but was on Lovenox after surgeries and had a Hgb drop to 7.2. He had colonoscopy and EGD that did not confirm source. He states he has not had hemoptysis, melena, or hematochezia. Reviewed records and did not see reported esophageal varices. Past Medical/Surgical History Medical Problems: (1) Diabetic autonomic neuropathy Status: Chronic Family History Patient reports no known family medical history. Social History Smoking Status: Never Smoker Alcohol Use: Previous heavy drinker Drug Use: none Marital Status: Occupational Status: retired Immunizations History of Influenza Vaccine: Yes Influenza Vaccine Date: Oct 07, 2005 History of Tetanus Vaccine?: Unknown History of Pneumococcal: Yes Pneumococcal Date: Oct 07, 2004 History of Hepatitis B Vaccine: No Multi-Drug Resistant Organisms History of MDRO: No Allergies Coded Allergies: Celecoxib (Verified Allergy, Intermediate, HIVES, 05/02/17) Penicillins (Verified Allergy, Intermediate, HIVES, 05/02/17) Home Medications Scheduled Atorvastatin (Lipitor), 10 MG PO DAILY Cyclosporine (Ophth) (Restasis), 1 DROP OPB BID Fluoxetine (Prozac), 40 MG PO QAM Furosemide (Lasix), 40 MG PO BID Insulin Aspart (Novolog Penfill), SC AC Insulin Glargine (Lantus), 20 UNITS SC BID Lactulose (Chronulac), 30 ML PO BID Levalbuterol (Levalbuterol HCl), 1.25 MG INH TID Pantoprazole (Protonix), 40 MG PO QAM Potassium Ext Rel (Klor-Con), 20 MEQ PO BIDM Prednisone (Prednisone), 20 MG PO QAM Propranolol (Inderal), 10 MG PO DAILY Spironolactone (Spironolactone), 50 MG PO DAILY Scheduled PRN Acetaminophen (Tylenol), 500 MG PO Q4H PRN for Pain Albuterol Sulf (Albuterol Sulfate), 2.5 MG INH Q4H PRN for SOB/Wheezing Ondansetron Hcl (Zofran), 4 MG PO Q4 PRN for Nausea Oxycodone Ir (Roxicodone Ir), 5 MG PO Q4H PRN for Moderate Pain Review of Systems Constitutional: No fever, No chills Respiratory: No cough, No shortness of breath Cardiovascular: No chest pain Abdomen: No pain, No nausea, No vomiting, No diarrhea, No constipation, No GI bleeding Musculoskeletal: + swelling (b/l legs - chronic but slightly worse), No calf pain Genitourinary - Male: No dysuria Hematologic / Lymphatic: No abnormal bleeding/bruising, No clotting problems Integumentary: + problem reported (redness of L abdomen with clear liquid drainage) Physical Exam Vital Signs Date Time Temp Pulse Resp B/P (MAP) Pulse Ox O2 Delivery O2 Flow Rate FiO2 11/23/17 18:03 75 11/23/17 16:33 72 103/79 96 Room Air 11/23/17 14:57 77 151/85 96 Room Air 11/23/17 13:53 75 159/85 98 Room Air 11/23/17 13:31 99 Room Air 11/23/17 13:05 36.7 79 24 140/84 98 Room Air General Appearance: WD/WN, no apparent distress, + obese Head: normocephalic, atraumatic Eyes: sclerae normal ENT: hearing grossly normal Neck: supple, no JVD, trachea midline Respiratory/Chest: no respiratory distress, no accessory muscle use, + crackles (minimal bases b/l) Cardiovascular: regular rate, rhythm, + systolic murmur Abdomen/GI: normal bowel sounds, non tender, soft, + pertinent finding (large LLQ reducible hernia which extends to L groin; surgical incision well-healed and well-approximated; small abrasions around incision with minimal clear liquid drinage; multiple ecchymotic areas on abdomen) Extremities/Musculoskelatal: no pedal edema, + swelling (trace to 1+ pitting edema) Neurologic/Psych: alert, oriented x 3, + pertinent finding (lethargic, mostly answers appropriately but will laugh randomly and say things then forget what he said) Skin: warm/dry, + pertinent finding (Mild Erythema extending from the lateral aspect of his surgical incision up to RUQ; warm touch but non-tender; small scabbed wounds near incision with the one at top of incision with scant clear drainage) Diagnostics Laboratory Results Results Past 24 Hours Test 11/23/17 13:29 11/23/17 13:38 11/23/17 15:40 11/23/17 18:39 Range/Units White Blood Count 6.27 4.8-10.8 K/uL Red Blood Count 3.35 4.7-6.1 M/uL Hemoglobin 9.1 14.0-18.0 g/dL Hematocrit 28.8 42-52 % Mean Corpuscular Volume 86.0 80-100 fL Mean Corpuscular Hemoglobin 27.2 25-34 pg Mean Corpuscular Hemoglobin Concent 31.6 32-36 g/dl Platelet Count 118 130-400 K/uL Mean Platelet Volume 9.9 7.4-10.4 fL Neutrophils (%) (Auto) 70.8 % Lymphocytes (%) (Auto) 12.9 % Monocytes (%) (Auto) 11.6 % Eosinophils (%) (Auto) 3.5 % Basophils (%) (Auto) 0.2 % Neutrophils # (Auto) 4.44 1.4-6.5 K/uL Lymphocytes # (Auto) 0.81 1.2-3.4 K/uL Monocytes # (Auto) 0.73 0.11-0.59 K/uL Eosinophils # (Auto) 0.22 0-0.5 K/uL Basophils # (Auto) 0.01 0-0.2 K/uL RDW Standard Deviation 57.8 36.4-46.3 fL RDW Coefficient of Variation 18.6 11.5-14.5 % Immature Granulocyte % (Auto) 1.0 % Immature Granulocyte # (Auto) 0.06 0.00-0.02 K/uL Prothrombin Time 11.8 9.0-12.0 SECONDS Prothromb Time International Ratio 1.1 0.9-1.1 Activated Partial Thromboplast Time 28.6 21.0-31.0 SECONDS Partial Thromboplastin Ratio 1.1 Sodium Level 142 136-145 mmol/L Potassium Level 3.4 3.5-5.1 mmol/L Chloride Level 109 98-107 mmol/L Carbon Dioxide Level 29 21-32 mmol/L Anion Gap 4.0 3-11 mmol/L Blood Urea Nitrogen 39 7-18 mg/dl Creatinine 1.78 0.60-1.40 mg/dl Est Creatinine Clear Calc Drug Dose 39.7 ml/min Estimated GFR () 45.7 Estimated GFR (Non- 39.4 BUN/Creatinine Ratio 22.2 10-20 Random Glucose 139 70-99 mg/dl Lactic Acid Level 1.0 0.4-2.0 mmol/L Calcium Level 8.1 8.5-10.1 mg/dl Total Bilirubin 0.8 0.2-1 mg/dl Direct Bilirubin 0.4 0-0.2 mg/dl Aspartate Amino Transf (AST/SGOT) 40 15-37 U/L Alanine Aminotransferase (ALT/SGPT) 27 12-78 U/L Alkaline Phosphatase 336 45-117 U/L Total Protein 6.4 6.4-8.2 gm/dl Albumin 2.4 3.4-5.0 gm/dl Lipase 607 73-393 U/L Ammonia 20.0 11-32 umol/L Urine Color YELLOW Urine Appearance CLEAR CLEAR Urine pH 5.0 4.5-7.5 Urine Specific [place] 1.020 1.000-1.030 Urine Protein NEG NEG Urine Glucose (UA) NEG NEG Urine Ketones NEG NEG Urine Occult Blood 1+ NEG Urine Nitrite NEG NEG Urine Bilirubin NEG NEG Urine Urobilinogen NEG NEG Urine Leukocyte Esterase NEG NEG Urine WBC (Auto) 1-5 0-5 /hpf Urine RBC (Auto) 5-10 0-4 /hpf Urine Hyaline Casts (Auto) 0 0-5 /lpf Urine Epithelial Cells (Auto) 0-5 0-5 /lpf Urine Bacteria (Auto) NEG NEG Microbiology Results 11/23/17 Blood Culture, Received Pending 11/23/17 Blood Culture, Received Pending Diagnostic Radiology LUMBAR SPINE WITH FINDINGS: Postoperative changes of laminectomy noted at the L4 level. Posterior interbody noel and screw fusion hardware extends from L2-S1 with cannulated screws extending into the bilateral iliac wings. Prior hardware removal at the L4 and L5 levels. Bones are moderately demineralized. There is new 30% anterior endplate compression deformity of the L1 vertebral body with associated vacuum disc phenomenon at T12-L1. Air is noted within the anterior aspect of the L1 vertebral body suggesting associated avascular necrosis with vertebral body collapse. No retropulsion or high-grade central canal stenosis. There is 9 mm anterolisthesis L4 on L5 which has progressed from prior CT lumbar spine, however appears to be unchanged from CT study dated 07/22/2017. There is unchanged positioning of orthopedic linear hardware extending from L3 to the L5-S1 level. There is fragmentation with loss of vertebral body height involving the L4 and L5 vertebral bodies which also appears unchanged from CT dated 07/22/2017. Calcifications are seen of the posterior longitudinal ligament. Vacuum disc phenomenon seen at L2-L3. No definite high-grade central canal or foraminal narrowing, however CT is limited compared to that of MRI for evaluation of the central canal and foramina. No drainable fluid collections or abscess identified. Mild volume of ascites is noted within the abdomen and pelvis. Small duodenal diverticulum. 6 mm nonobstructing calculus of the interpolar left kidney. Urinary bladder distention. IMPRESSION: 1. Extensive postoperative changes of the lumbar spine as above which appears generally unchanged from comparison CT abdomen and pelvis 07/22/2017. Prior hardware removal at the L4 and L5 levels. 2. No focal drainable fluid collection or abscess identified at this time. 3. 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 No associated retropulsion, high-grade central canal or foraminal narrowing. 4. Intra-abdominal findings as above, further discussed on CT abdomen and pelvis of same day. ABD/PELVIS IV CONTRAST ONLY FINDINGS: [employer] Inspector topogram: Lumbar fusion hardware. Lung bases: Minimal basilar opacities, likely atelectasis. Overall decreased peribronchovascular and dependent consolidation from prior. Calcified granuloma noted in the left lower lobe. Multichamber enlargement of the heart. Postsurgical changes of the interatrial septum. Coronary artery and aortic valve calcification. No pericardial or pleural effusion. Liver: Nodular contour of the liver consistent with cirrhosis. Allowing for the single phase of contrast, no focal liver lesion. Patent hepatic vasculature. Biliary: No intrahepatic or extrahepatic biliary ductal dilatation. Gallbladder decompressed. Pancreas: Decreased peripancreatic fluid and inflammatory change. Pancreatic parenchyma normal-appearing. Spleen: Mildly enlarged measuring slightly more than 13 cm in maximal sagittal dimension. Adrenal glands: Normal. Kidneys and ureters: Well-defined hypodensity in the left kidney likely simple cyst. Mild cortical thinning may be present. Nonobstructing left renal calculus measures 5 mm. No hydronephrosis. Normal ureters. Bladder: Normal. Pelvic organs: Prostate and seminal vesicles normal. Bowel: Limited diverticulosis of the optimal sigmoid colon. No bowel obstruction. Feces in the small bowel could suggest delayed transit. Duodenal diverticulum noted at the level of the pancreatic head. Mild small bowel wall thickening in the jejunum could relate to portal enteropathy. Peritoneal cavity: Moderate amount of simple appearing ascites in the abdomen and pelvis. There is also a peritoneal defect allowing herniation of ascites into the left retroperitoneum as well as through the anterior peritoneum where there is both interfascial loculated ascites as well as more superficial ascites in the subcutaneous tissue of the left lower quadrant. The volume of herniated ascites has increased from prior. No internal complexity. No free air. Lymph nodes: No enlarged lymph nodes in the abdomen or pelvis. Vasculature: Slight expansion of the right superficial femoral vein and right common femoral vein with a suspected filling defect worrisome for thrombus (series 3 image 455). Atherosclerosis of the normal caliber abdominal aorta. Abdominal wall: Fat-containing right inguinal hernia. Extensive skin thickening and subcutaneous infiltration along the left lateral abdominal wall and left lower quadrant. Musculoskeletal: Posterior lumbar fusion hardware with bridging across the sacroiliac joints. Compression deformity of the L1 vertebral body. This is new from prior. Severe osteopenia. IMPRESSION: 1. Interval development of a compression fracture of L1 in the setting of severe osteopenia. 2. Moderate ascites with increased herniation into the left retroperitoneum, left anterior abdominal wall musculature, and left anterior subcutaneous tissue. The surrounding skin thickening and subcutaneous infiltration in the left anterolateral abdominal wall could suggest associated cellulitis. No internal complexity of the herniated/loculated fluid. Sterility of these collections cannot be confirmed by CT. 3. Interval development of a suspected deep venous thrombosis in the right common and superficial femoral veins. This could be confirmed with lower extremity Doppler venous ultrasound. 4. Cirrhosis with portal hypertension evidenced by mild spinal megaly and ascites. 5. Bibasilar atelectasis. ULTRASOUND R VENOUS DOPP LOWER EXT UNILAT FINDINGS: There is thrombus within the right common femoral and proximal superficial femoral vein. No thrombus is visualized within the popliteal vein or proximal trifurcation veins of the calf. There is a 3 x 1 x 1.7 cm right popliteal cyst. IMPRESSION: Right lower extremity DVT involving the common femoral and proximal superficial femoral vein. CT HEAD WITHOUT CONTRAST (CT) FINDINGS: No intra or extra-axial mass lesions are visualized. There is no CT evidence of acute cortical infarction. There is no evidence of midline shift. There is no acute hemorrhage. No calvarial fractures are visualized. There are patchy white matter hypodensities likely on a small vessel basis. There is persistent partial opacification of the right maxillary and sphenoid sinus. Postsurgical changes within the paranasal sinuses are suspected. There is no evidence of pathologic ventricular dilatation. IMPRESSION: No acute intracranial findings Impression Assessment and Plan Mr. 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 Acute Hepatic Encephalopathy with Normal Ammonia: - Will obtain ABG and Head CT (unremarkable) - patient appears encephalopathic and is likely from his cirrhosis but will continue to monitor L-Sided Abdominal Cellulitis: - He is afebrile without leukocytosis but is on suppressive Keflex and on chronic steroids - has multiple episodes of sepsis and does have an element of immunosuppression due to chronic steroids - It is possible the erythema may be more irritation from the ascites and question possible fistula - Rocephin 1 g IV daily and Vancomycin - Will consult general surgery - possible fistula complicating cellulitis? R Common Femoral DVT and Superficial Femoral Vein: - Initiate low-dose heparin gtt and monitor Hgb and for any signs of bleeding LETTY: - Baseline appears to be around 1.0-1.3 and currently 1.78 - Gentle hydration with NSS at 75 mL/hr x 2 bags and check BMP in AM -- Will hold Lasix but will continue Spironolactone given liver disease 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: - Appearing acute to subacute with no associated retropulsion, high-grade central canal or foraminal narrowing - No complaints of back pain - likely back brace for support - could consider discussion with Dr. 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 with Portal HTN and Ascites and Thrombocytopenia: - Lactulose 20 g BID and Spironolactone 50 mg daily - Per records he was on Rifaximin but reviewed 's list and it was not an active med - there was some meds crossed off but not sure if this was one of them - Appears that he may need a paracentesis in the near future but does not appear to be SOB at this time and until treatment of cellulitis is complete would be best to not tap T2DM: A1c 8.4 (Sep 2017) - Lantus 20 units SC BID and SSI Sarcoidosis with Extra-Pulmonary Effects: - Ventolin Q4H PRN and Xopenex neb TID - Prednisone 20 mg daily HLD: - Atorvastatin 10 mg daily HTN: - Propranolol 10 mg daily DVT Prophylaxis: Heparin gtt Code Status: FULL RESUSCITATION I personally interviewed and examined the patient. I agree with history of present illness and physical exam mentioned above, I also performed my own history taking and examination. Past medical history and review of system has been obtained by myself I reviewed all pertinent labs and studies Reviewed current medications I discussed and formulated of the assessment and plan mentioned above. Please refer to the Summary mentioned below. 62-year-old male with past medical history of liver cirrhosis, portal hypertension, diabetes mellitus, diastolic CHF, sleep apnea noncompliant with his CPAP, hypertension and mild thrombocytopenia presented to the ED with erythema and abdomen clinical for peritoneal fluid at the site of previous surgical intervention Accidentally on the CT scan abdomen DVT was noticed in lower extremity. Patient appears to be confused has been confused for few days, despite of normal ammonia level which can vary based on many factors, he will be treated as hepatic encephalopathy with increasing lactulose knows that he takes at home and rifaximin. 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 General Appearance: not in acute distress Eyes: normal Sclerae, extraocular muscle intact ENT: hearing grossly normal Neck: supple Respiratory/Chest: normal air entry bilateral ,no respiratory distress, no accessory muscle use Cardiovascular: regular rate, rhythm, no murmur Abdomen: non tender, large hernia with fistula at the site of previous incision Extremities: no edema Neurologic/Psychiatric: Awake alert but confused and slow in his answers moves all extremities sensation intact cranial nerves II-12 appear to be intact Skin: normal color, warm/dry, no rash Wesam Moustafa Hu MD, [facility] Level [facility] Care Telemetry Resuscitation Status FULL RESUSCITATION VTE Prophylaxis VTE Risk Assessment Done? Y/N: Yes Risk Level: Moderate Given or contraindicated: Other Anticoagulation (Heparin)
--- NOTE | 2017-11-23 19:39 | DIAGNOSTIC IMAGING REPORT ---
CT HEAD WITHOUT CONTRAST (CT) CLINICAL HISTORY: Lethargic; Altered Mentation COMPARISON STUDY: 05/19/2017 TECHNIQUE: Axial CT of the brain is performed from the vertex to the skull base. IV contrast was not administered for this examination. A dose lowering technique was utilized adhering to the principles of ALARA. CT DOSE: 614.27 mGy.cm FINDINGS: No intra or extra-axial mass lesions are visualized. There is no CT evidence of acute cortical infarction. There is no evidence of midline shift. There is no acute hemorrhage. No calvarial fractures are visualized. There are patchy white matter hypodensities likely on a small vessel basis. There is persistent partial opacification of the right maxillary and sphenoid sinus. Postsurgical changes within the paranasal sinuses are suspected. There is no evidence of pathologic ventricular dilatation. IMPRESSION: No acute intracranial findings Electronically signed by: Ian Jones M.D. 11/23/2017 7:38 PM Dictated Date/Time: 11/23/2017 7:36 PM
[2017-11-23 19:55] VITALS: BP 124/73; PULSE 75; TEMP 36.9; O2SAT 97
[2017-11-23] MEDS: CEFTRIAXONE SOD INJ 1 GM in DEXTROSE 5% ADD-VANTAGE 50ML 50 ML IV SCH (20:33)
[2017-11-23] MEDS: SODIUM CHLORIDE 0.9% 1000ML 1,000 ML IV SCH (20:33)
[2017-11-23] MEDS ORDERED: LACTULOSE SYRUP 20 GM/30 ML UDC PO SCH (21:00)
[2017-11-23 21:02] VITALS: BMI 28.9
[2017-11-23] MEDS ORDERED: VANCOMYCIN CONSULT ACTIVE PRN (21:15)
[2017-11-23] MEDS ORDERED: VANCOMYCIN INJ 1,750 MG in SODIUM CHLORIDE 0.9% 500ML 500 ML IV ONE (21:15)
[2017-11-23] MEDS: INSULIN GLARGINE SOLOSTAR 100 UNITS/ML 3 ML PEN SC SCH (21:50)
[2017-11-23] MEDS: INSULIN ASPART 100 UNITS/ML 3 ML PEN SC SCH (21:51)
[2017-11-23] MEDS ORDERED: HEPARIN IV BOLUS 4,000 UNIT in SYRINGE 0 ML IV ONE (22:00)
[2017-11-23] MEDS: HEPARIN 25,000 UNIT/500ML D5W 500 ML IV PRN (22:11)
[2017-11-23] MEDS: LEVALBUTEROL 1.25MG/3ML NEB INH SCH (22:20)
[2017-11-23 22:21] VITALS: PULSE 76; O2SAT 96
[2017-11-23 22:36] VITALS: BP 124/73; PULSE 75; TEMP 36.9; O2SAT 95; BMI 28.9
[2017-11-23 23:28] VITALS: BP 137/71; PULSE 79; TEMP 36.3; O2SAT 94
[2017-11-24] VITALS (10 sets, daily range): BP systolic 123–155; BP diastolic 62–84; PULSE 71–84; TEMP 36.3–36.8; O2SAT 94–98; BMI 28.9
[2017-11-24] MEDS: LACTULOSE SYRUP 30 GM/45 ML UDP PO SCH ×4 (04:00→20:40)
[2017-11-24] MEDS: ALBUTEROL 0.083% NEBU SOLN 3 ML VIAL INH PRN (04:08)
[2017-11-24 04:25] LABS: BASO % 0.2 %; BASO ABS # 0.01 K/uL (0-0.2); EOS % 1.8 %; EOS ABS # 0.12 K/uL (0-0.5); HEMATOCRIT 27.5 % (42-52); HEMOGLOBIN 8.8 g/dL (14.0-18.0); IG# 0.05 K/uL (0.00-0.02); LYMPH ABS # 0.52 K/uL (1.2-3.4); MEAN CELL VOLUME 85.4 fL (80-100); MEAN CORPUSCULAR HEMOGLOBIN 27.3 pg (25-34); MEAN PLATELET VOLUME 9.6 fL (7.4-10.4); MONO % 14.8 %; MONO ABS # 0.96 K/uL (0.11-0.59); NEUT % 74.4 %; NEUT ABS # 4.83 K/uL (1.4-6.5); PLATELET COUNT 107 K/uL (130-400); RED CELL DISTRIBUTION WIDTH CV 18.6 % (11.5-14.5); RED CELL DISTRIBUTION WIDTH SD 58.3 fL (36.4-46.3); WHITE BLOOD COUNT 6.49 K/uL (4.8-10.8)
[2017-11-24 04:51] LABS: ALBUMIN 2.2 gm/dl (3.4-5.0); CALCIUM 7.7 mg/dl (8.5-10.1); CREATININE 1.66 mg/dl (0.60-1.40); POTASSIUM 3.7 mmol/L (3.5-5.1)
[2017-11-24 04:54] LABS: PHOSPHORUS 3.9 mg/dl (2.5-4.9); TOTAL PROTEIN 5.7 gm/dl (6.4-8.2)
[2017-11-24 05:27] LABS: PTT PATIENT 117.5 SECONDS (21.0-31.0)
[2017-11-24] MEDS: INSULIN ASPART 100 UNITS/ML 3 ML PEN SC SCH ×4 (06:30→20:53)
[2017-11-24] MEDS: HEPARIN 25,000 UNIT/500ML D5W 500 ML IV PRN ×2 (06:42→15:00)
[2017-11-24] MEDS: LEVALBUTEROL 1.25MG/3ML NEB INH SCH ×3 (07:12→19:47)
[2017-11-24] MEDS: SODIUM CHLORIDE 0.9% 1000ML 1,000 ML IV SCH (09:10)
[2017-11-24] MEDS: RIFAXIMIN TAB 550 MG TAB PO SCH ×2 (09:11→20:39)
[2017-11-24] MEDS: SPIRONOLACTONE 25 MG TAB PO SCH (09:11)
[2017-11-24] MEDS: FLUOXETINE HCL 20 MG CAP PO SCH (09:12)
[2017-11-24] MEDS: ATORVASTATIN 10 MG TAB PO SCH (09:12)
[2017-11-24] MEDS: PROPRANOLOL HCL 10 MG TAB PO SCH (09:12)
[2017-11-24] MEDS: PANTOprazole SOD 40 MG TAB PO SCH (09:12)
[2017-11-24] MEDS: INSULIN GLARGINE SOLOSTAR 100 UNITS/ML 3 ML PEN SC SCH ×2 (09:19→20:54)
--- NOTE | 2017-11-24 10:42 | Hospitalist Progress Note ---
Hospitalist Progress Note Date of Service Nov 24, 2017. (Amanda Henning ., KRISTENC) Subjective Pt evaluation today including: conversation w/ patient, physical exam, chart review, lab review, review of studies, review of inpatient medication list Pain: None PO Intake: Tolerating PO diet Voiding: no voiding problems The patient reports feeling better. He does report some shortness of breath, which he states has been getting progressively worse in the last few days prior to arrival. He reports a non-productive cough. He also states that he had developed chills one night prior to arrival, but denies any last night. He denies any abdominal pain currently. The patient denies fevers, chills, sweats , chest pain, palpitations, claudication, wheezing, nausea, vomiting, abdominal pain, dysuria, hematuria, urinary retention, paralysis, weakness, numbness and tingling. Additional Comments: See HPI for pertinent positives and negatives. All other systems reviewed and negative. (Amanda Henning ., ANJALI-C) Objective Vital Signs Date Time Temp Pulse Resp B/P (MAP) Pulse Ox O2 Delivery O2 Flow Rate FiO2 11/24/17 07:46 36.8 72 20 136/77 (96) 98 Room Air 11/24/17 07:14 71 16 96 Room Air 11/24/17 04:11 36.6 77 18 123/62 (82) 95 Room Air 11/24/17 04:08 76 18 94 Room Air 11/24/17 04:00 Room Air 11/24/17 00:00 Room Air 11/23/17 23:28 36.3 79 18 137/71 (93) 94 Room Air 11/23/17 22:36 36.9 75 18 124/73 95 Room Air 11/23/17 22:21 76 18 96 Room Air 11/23/17 19:55 36.9 75 20 124/73 (90) 97 Room Air 11/23/17 19:26 75 118/77 97 11/23/17 18:03 75 11/23/17 16:33 72 103/79 96 Room Air 11/23/17 14:57 77 151/85 96 Room Air 11/23/17 13:53 75 159/85 98 Room Air 11/23/17 13:31 99 Room Air 11/23/17 13:05 36.7 79 24 140/84 98 Room Air (Amanda Henning ., PA-C) Physical Exam Notes: General appearance: +Mildly lethargic. Well-developed, well-nourished, no apparent distress Head: Normocephalic, atraumatic Eyes: Normal inspection, PERRL, EOMI ENT: Normal ENT inspection, hearing grossly normal, pharynx normal Neck: Supple, no JVD, trachea midline Respiratory/Chest: Lungs clear to auscultation, normal breath sounds, no respiratory distress Cardiovascular: +Systolic murmur. Regular rate & rhythm, no gallop Abdomen/GI: +Large reducible LLQ hernia. Incision with very mild surrounding erythema. Non-tender. No drainage currently. Normal bowel sounds, non-tender , soft Extremities/Musculoskeletal: +Trace pitting edema. Normal inspection, no calf tenderness Neurological/Psych: +Somewhat lethargic but awake and answering questions appropriately. Oriented x 3. Normal mood/affect, oriented x 3 Skin: Normal color, warm/dry, no rash (Amanda Henning ., PA-C) Laboratory Results Last 24 Hours Test 11/23/17 13:29 11/23/17 13:38 11/23/17 15:40 11/23/17 20:35 White Blood Count 6.27 K/uL Red Blood Count 3.35 M/uL Hemoglobin 9.1 g/dL Hematocrit 28.8 % Mean Corpuscular Volume 86.0 fL Mean Corpuscular Hemoglobin 27.2 pg Mean Corpuscular Hemoglobin Concent 31.6 g/dl Platelet Count 118 K/uL Mean Platelet Volume 9.9 fL Neutrophils (%) (Auto) 70.8 % Lymphocytes (%) (Auto) 12.9 % Monocytes (%) (Auto) 11.6 % Eosinophils (%) (Auto) 3.5 % Basophils (%) (Auto) 0.2 % Neutrophils # (Auto) 4.44 K/uL Lymphocytes # (Auto) 0.81 K/uL Monocytes # (Auto) 0.73 K/uL Eosinophils # (Auto) 0.22 K/uL Basophils # (Auto) 0.01 K/uL RDW Standard Deviation 57.8 fL RDW Coefficient of Variation 18.6 % Immature Granulocyte % (Auto) 1.0 % Immature Granulocyte # (Auto) 0.06 K/uL Prothrombin Time 11.8 SECONDS Prothromb Time International Ratio 1.1 Activated Partial Thromboplast Time 28.6 SECONDS Partial Thromboplastin Ratio 1.1 Sodium Level 142 mmol/L Potassium Level 3.4 mmol/L Chloride Level 109 mmol/L Carbon Dioxide Level 29 mmol/L Anion Gap 4.0 mmol/L Blood Urea Nitrogen 39 mg/dl Creatinine 1.78 mg/dl Est Creatinine Clear Calc Drug Dose 39.7 ml/min Estimated GFR () 45.7 Estimated GFR (Non- 39.4 BUN/Creatinine Ratio 22.2 Random Glucose 139 mg/dl Lactic Acid Level 1.0 mmol/L Calcium Level 8.1 mg/dl Total Bilirubin 0.8 mg/dl Direct Bilirubin 0.4 mg/dl Aspartate Amino Transf (AST/SGOT) 40 U/L Alanine Aminotransferase (ALT/SGPT) 27 U/L Alkaline Phosphatase 336 U/L Total Protein 6.4 gm/dl Albumin 2.4 gm/dl Lipase 607 U/L Ammonia 20.0 umol/L Urine Color YELLOW Urine Appearance CLEAR Urine pH 5.0 Urine Specific [place] 1.020 Urine Protein NEG Urine Glucose (UA) NEG Urine Ketones NEG Urine Occult Blood 1+ Urine Nitrite NEG Urine Bilirubin NEG Urine Urobilinogen NEG Urine Leukocyte Esterase NEG Urine WBC (Auto) 1-5 /hpf Urine RBC (Auto) 5-10 /hpf Urine Hyaline Casts (Auto) 0 /lpf Urine Epithelial Cells (Auto) 0-5 /lpf Urine Bacteria (Auto) NEG Arterial Blood pH 7.44 Arterial Blood Partial Pressure CO2 36 mmHg Arterial Blood Partial Pressure O2 79 mm/Hg Arterial Blood HCO3 24 mmol/L Arterial Blood Oxygen Saturation 93.5 % Arterial Blood Base Excess -0.2 mEq/L Arterial Blood Gas Delivery ROOM AIR Sergio Test POS Test 11/23/17 21:18 11/23/17 22:44 11/24/17 04:15 11/24/17 07:42 Bedside Glucose 197 mg/dl 53 mg/dl Vitamin B12 Level 1882 pg/mL Thyroid Stimulating Hormone (TSH) 1.140 uIu/ml White Blood Count 6.49 K/uL Red Blood Count 3.22 M/uL Hemoglobin 8.8 g/dL Hematocrit 27.5 % Mean Corpuscular Volume 85.4 fL Mean Corpuscular Hemoglobin 27.3 pg Mean Corpuscular Hemoglobin Concent 32.0 g/dl Platelet Count 107 K/uL Mean Platelet Volume 9.6 fL Neutrophils (%) (Auto) 74.4 % Lymphocytes (%) (Auto) 8.0 % Monocytes (%) (Auto) 14.8 % Eosinophils (%) (Auto) 1.8 % Basophils (%) (Auto) 0.2 % Neutrophils # (Auto) 4.83 K/uL Lymphocytes # (Auto) 0.52 K/uL Monocytes # (Auto) 0.96 K/uL Eosinophils # (Auto) 0.12 K/uL Basophils # (Auto) 0.01 K/uL RDW Standard Deviation 58.3 fL RDW Coefficient of Variation 18.6 % Immature Granulocyte % (Auto) 0.8 % Immature Granulocyte # (Auto) 0.05 K/uL Toxic Vacuolation 1+ Polychromasia 1+ Ovalocytes 1+ Activated Partial Thromboplast Time 117.5 SECONDS Partial Thromboplastin Ratio 4.5 Sodium Level 145 mmol/L Potassium Level 3.7 mmol/L Chloride Level 113 mmol/L Carbon Dioxide Level 28 mmol/L Anion Gap 4.0 mmol/L Blood Urea Nitrogen 40 mg/dl Creatinine 1.66 mg/dl Est Creatinine Clear Calc Drug Dose 45.0 ml/min Estimated GFR () 49.7 Estimated GFR (Non- 42.9 BUN/Creatinine Ratio 24.1 Random Glucose 93 mg/dl Calcium Level 7.7 mg/dl Phosphorus Level 3.9 mg/dl Magnesium Level 2.3 mg/dl Total Bilirubin 0.7 mg/dl Aspartate Amino Transf (AST/SGOT) 40 U/L Alanine Aminotransferase (ALT/SGPT) 26 U/L Alkaline Phosphatase 253 U/L Total Protein 5.7 gm/dl Albumin 2.2 gm/dl Globulin 3.5 gm/dl Albumin/Globulin Ratio 0.6 Test 11/24/17 08:00 11/24/17 09:16 Bedside Glucose 84 mg/dl 125 mg/dl (Amanda Henning, KEO) Assessment and Plan 62 y/o male with a history of 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 Encephalopathy with unclear etiology--improving -Admit to telemetry. No acute events overnight. Pt in SR with HR in 70s -ABG unremarkable, head CT negative -Metabolic encephalopathy secondary to cellulitis vs hepatic encephalopathy due to cirrhosis, although ammonia WNL -TSH, B12 WNL L-Sided Abdominal Cellulitis--improving, only mild erythema -Chronic suppressive Keflex and chronic steroids -Cellulitis vs irritation, possible fistula -General surgery consulted regarding possible fistula, appreciate recs -Continue Rocephin 1 gm IV qd and vancomycin for now. Day #2 R Common Femoral DVT and Superficial Femoral Vein--stable -Continue heparin drip pending surgery eval LETTY--improving -Creatinine 1.66 on 11/24, down from 1.78 -Received 2L NSS at 75 cc/hr. Will hold off on further IVF for now given diastolic dysfunction -Continue to hold Lasix Compression Fracture of L1 with Avascular Necrosis--stable - Appearing acute to subacute with no associated retropulsion, high-grade central canal or foraminal narrowing - No complaints of back pain. Consult orthotics for back brace - Could consider discussion with Dr. 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 with Portal HTN and Ascites and Thrombocytopenia--stable - Lactulose increased to 30 gm PO q6h - Continue spironolactone 50 mg PO qd, Xifaxan 550 mg PO BID - Hold off on paracentesis for now W1EL--xibxqn, HgbA1c 8.4 (Sep 2017) - Lantus 20 units SC BID - Insulin sliding scale - Check BSGs q ac and qhs Sarcoidosis with Extra-Pulmonary Effects--stable - Ventolin Q4H PRN and Xopenex neb TID - Prednisone 20 mg daily HTN, HLD--stable - Continue propranolol 10 mg PO qd and atorvastatin 10 gm PO qd DVT prophylaxis -Heparin drip Code Status -Level I, FULL RESUSCITATION STATUS (Amanda Henning, KRISTENC) Supervising Note Dr. Dubois I performed a history and physical examination on the patient. I reviewed above note and agree with it. I discussed plan with APC and patient. During my face to face encounter with the patient, I answered all of the patient's questions. Patient was more awake on my exam today. Less confused as documented above. I for now will continue current meds. (Reji Dubois M.D.)
--- NOTE | 2017-11-24 12:17 | Surgery Consultation ---
Consultation Date of Consultation: Nov 24, 2017. Attending Physician: Kevin Plascencia MD Reason for Consultation: Abdominal wall cellulitis, possible fistula? History of Present Illness Mr. 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 Most of the HPI obtained from chart due to the patient being very lethargic and only oriented to place during my initial encounter. Patient has had some drainage from superior aspect of incision and small open wounds. In the emergency department he did admit that he has a chronic hernia in the left lower abdomen from recurrent back surgeries which they use the anterior approach. The patient has had recurrent sepsis in the past. He is on prophylactic Keflex 500 mg twice a day. CT scan showed "moderate ascites with increased herniation into the left retroperitoneum, left anterior abdominal wall musculature, and left anterior subcutaneous tissue. The surrounding skin thickening and subcutaneous infiltration in the left anterolateral abdominal wall could suggest associated cellulitis. No internal complexity of the herniated/loculated fluid. Sterility of these collections cannot be confirmed by CT." Patient has had occasional paracentesis for his ascites with last tap in June. During my second encounter with the patient with Dr. Morataya patient was more alert, aware, and oriented. Easily aroused. Patient states he has no abdominal pain. States he had hernia repair of the abdomen many years ago. Denies of any fever, chills, nausea, or vomiting. Past Medical/Surgical History Past Medical History (1) Abscess in epidural space of lumbar spine (2) ACUTE RESP.FAIL.,SARCOIDOSIS (3) Anemia (4) Asthma (5) Diabetic autonomic neuropathy (6) Fungemia (7) GERD (gastroesophageal reflux disease) (8) gi bleed, ? sepsis (9) gi bleed, ?sepsis (10) Gram negative septicemia (11) HEPATIC ENCEPHALOPATHY. SARCOIDOSIS. DM2,POST LUMBAR DISC SURGERY (12) HERNIATED L4-L5 DISC (13) Hyperlipidemia (14) Hypertension (15) Infection of lumbar spine (16) Kidney stone (17) Lumbar stenosis with neurogenic claudication (18) Meningitis (19) MSC,SEVERE HYPO K, LUMBAR SPINE ABCESS,MALNUTRITION, CIRRHOSIS (20) MSC. FEVER.,?MENINGITIS,DM2,SARCOIDOSIS,SLEEP APNEA (21) Obesity (22) Post op infection (23) Sarcoidosis (24) Septal defect (25) SEVERE CELLULITIS L LEG,SEPSIS SYNDROME (26) Sleep apnea (27) Thrombocytopenia Past Surgical History: 1. Multiple back surgeries with anterior approach 2. left abdominal hernia repair 3. Cardiac Catheterization 4. Cardiac septal defect repair Family History Patient reports no known family medical history. Social History Smoking Status: Never Smoker Alcohol Use: Previous heavy drinker Drug Use: none Marital Status: Housing Status: lives with family Occupation Status: retired Allergies Coded Allergies: Celecoxib (Verified Allergy, Intermediate, HIVES, 05/02/17) Penicillins (Verified Allergy, Intermediate, HIVES, 05/02/17) Home Medications Scheduled Atorvastatin (Lipitor), 10 MG PO DAILY Cyclosporine (Ophth) (Restasis), 1 DROP OPB BID Fluoxetine (Prozac), 40 MG PO QAM Furosemide (Lasix), 40 MG PO BID Insulin Aspart (Novolog Penfill), SC AC Insulin Glargine (Lantus), 20 UNITS SC BID Lactulose (Chronulac), 30 ML PO BID Levalbuterol (Levalbuterol HCl), 1.25 MG INH TID Pantoprazole (Protonix), 40 MG PO QAM Potassium Ext Rel (Klor-Con), 20 MEQ PO BIDM Prednisone (Prednisone), 20 MG PO QAM Propranolol (Inderal), 10 MG PO DAILY Spironolactone (Spironolactone), 50 MG PO DAILY Scheduled PRN Acetaminophen (Tylenol), 500 MG PO Q4H PRN for Pain Albuterol Sulf (Albuterol Sulfate), 2.5 MG INH Q4H PRN for SOB/Wheezing Ondansetron Hcl (Zofran), 4 MG PO Q4 PRN for Nausea Oxycodone Ir (Roxicodone Ir), 5 MG PO Q4H PRN for Moderate Pain Current Inpatient Medications Current Inpatient Medications Medications (Trade) Dose Ordered Sig/Nathalia Route Start Time Stop Time Status Last Admin Dose Admin Ioversol (Optiray 320) 111 ml UD PRN IV 11/23/17 14:00 11/27/17 13:59 Sodium Chloride 1,000 ml @ 75 mls/hr [id number] IV 11/23/17 17:31 1/5/18 20:10 11/23/17 20:33 75 MLS/HR Acetaminophen (Tylenol Tab) 650 mg Q4H PRN PO 11/23/17 17:45 12/23/17 17:44 Al Hydrox/Mg Hydrox/Simethicone (Maalox Max Susp) 15 ml Q4H PRN PO 11/23/17 17:45 12/23/17 17:44 Magnesium Hydroxide (Milk Of Magnesia Susp) 30 ml Q12H PRN PO 11/23/17 17:45 12/23/17 17:44 Ondansetron HCl (Zofran Inj) 4 mg Q6H PRN IV 11/23/17 17:45 12/23/17 17:44 Polyethylene (Miralax Powder Packet) 17 gm DAILY PRN PO 11/23/17 17:45 12/23/17 17:44 Insulin Aspart (novoLOG ASPART) SLIDING SCALE If C... ACHS SC 11/23/17 21:00 12/23/17 20:59 11/23/17 21:51 1 UNITS Glucose (Glucose 40% Gel) 15-30 GRAMS 15 GRAMS... UD PRN PO 11/23/17 17:45 12/23/17 17:44 Glucose (Glucose Chew Tab) 4-8 Tablets 4 Tabl... UD PRN PO 11/23/17 17:45 12/23/17 17:44 Dextrose (Dextrose 50% 50ML Syringe) 25-50ML OF 50% DW IV FOR... UD PRN IV 11/23/17 17:45 12/23/17 17:44 Glucagon (Glucagon Inj) 1 mg UD PRN SQ 11/23/17 17:45 12/23/17 17:44 Albuterol Sulfate (Ventolin 0.083% 2.5MG/3ML Neb) 2.5 mg Q4H PRN INH 11/23/17 17:45 12/23/17 17:44 11/24/17 04:08 2.5 MG Atorvastatin Calcium (Lipitor Tab) 10 mg DAILY PO 11/24/17 09:00 12/24/17 08:59 Fluoxetine HCl (Prozac Cap) 40 mg QAM PO 11/24/17 09:00 12/24/17 08:59 Levalbuterol (Xopenex 1.25MG/ 3ML Neb) 1.25 mg TID INH 11/23/17 21:00 12/23/17 20:59 11/24/17 07:12 1.25 MG Ondansetron HCl (Zofran Tab) 4 mg Q4 PRN PO 11/23/17 17:45 12/23/17 17:44 Oxycodone HCl (Roxicodone Immediate Rel Tab) 5 mg Q4H PRN PO 11/23/17 17:45 12/07/17 17:44 Pantoprazole Sodium (Protonix Tab) 40 mg QAM PO 11/24/17 09:00 12/24/17 08:59 Prednisone (PredniSONE TAB) 20 mg QAM PO 11/24/17 09:00 12/24/17 08:59 Propranolol HCl (Inderal Tab) 10 mg DAILY PO 11/24/17 09:00 12/24/17 08:59 Spironolactone (Aldactone Tab) 50 mg DAILY PO 11/24/17 09:00 12/24/17 08:59 Vancomycin HCl 1000 mg/Sodium Chloride 270 ml @ 125 mls/hr Q24H IV 11/24/17 21:00 12/04/17 20:59 Ceftriaxone Sodium 1 gm/ Dextrose 50 ml @ 100 mls/hr Q24H IV 11/23/17 18:45 12/03/17 18:44 11/23/17 20:33 100 MLS/HR Insulin Glargine (Lantus Solostar Pen) 20 units BID SC 11/23/17 21:00 12/23/17 20:59 11/23/17 21:50 20 UNITS Vancomycin HCl (Consult) 1 ea UD PRN N/A 11/23/17 21:15 12/23/17 21:14 Lactulose (Chronulac Syrup) 30 gm Q6H PO 11/24/17 03:00 12/23/17 20:59 11/24/17 04:00 30 GM Rifaximin (Xifaxan Tab) 550 mg BID PO 11/24/17 09:00 12/24/17 08:59 Heparin Sodium/ Dextrose 500 ml @ 13 mls/hr Q24H PRN IV 11/23/17 21:45 12/23/17 21:44 11/24/17 06:42 13 MLS/HR Review of Systems Constitutional: No fever, No chills Abdomen: No pain, No nausea, No vomiting, No diarrhea, No constipation, No GI bleeding Hematologic / Lymphatic: No abnormal bleeding/bruising Integumentary: + color change (redness of the left lower abdomen, drainage from superficial wounds of the left lower abdomen) Physical Exam Date Time Temp Pulse Resp B/P (MAP) Pulse Ox O2 Delivery O2 Flow Rate FiO2 11/24/17 07:46 36.8 72 20 136/77 (96) 98 Room Air 11/24/17 07:14 71 16 96 Room Air 11/24/17 04:11 36.6 77 18 123/62 (82) 95 Room Air 11/24/17 04:08 76 18 94 Room Air 11/24/17 04:00 Room Air 11/24/17 00:00 Room Air 11/23/17 23:28 36.3 79 18 137/71 (93) 94 Room Air 11/23/17 22:36 36.9 75 18 124/73 95 Room Air 11/23/17 22:21 76 18 96 Room Air 11/23/17 19:55 36.9 75 20 124/73 (90) 97 Room Air 11/23/17 19:26 75 118/77 97 11/23/17 18:03 75 11/23/17 16:33 72 103/79 96 Room Air 11/23/17 14:57 77 151/85 96 Room Air 11/23/17 13:53 75 159/85 98 Room Air 11/23/17 13:31 99 Room Air 11/23/17 13:05 36.7 79 24 140/84 98 Room Air General Appearance: WD/WN, no apparent distress Head: normocephalic, atraumatic Eyes: sclerae normal ENT: hearing grossly normal Neck: trachea midline Respiratory/Chest: lungs clear, normal breath sounds, no respiratory distress, no accessory muscle use Cardiovascular: regular rate, rhythm Abdomen/GI: soft, no organomegaly, + distended (ascities present), + hernia ( left abdominal wall hernia with slight loss of domain, previous hernia repair many years ago, soft, reducible, nontender on palpation), + pertinent finding ( There is mild erythema of the abdominal wall, mostly of the lower abdomen and in the LLQ at previous incision site. No active drainage on examination.) Extremities/Musculoskelatal: no pedal edema Neurologic/Psych: alert (on second encounter), oriented x 3 (oriented to place on initial encounter) Skin: + pertinent finding (erythema of the lower abdominal wall) Laboratory Results Last 24 Hours Test 11/23/17 13:29 11/23/17 13:38 11/23/17 15:40 11/23/17 20:35 White Blood Count 6.27 K/uL Red Blood Count 3.35 M/uL Hemoglobin 9.1 g/dL Hematocrit 28.8 % Mean Corpuscular Volume 86.0 fL Mean Corpuscular Hemoglobin 27.2 pg Mean Corpuscular Hemoglobin Concent 31.6 g/dl Platelet Count 118 K/uL Mean Platelet Volume 9.9 fL Neutrophils (%) (Auto) 70.8 % Lymphocytes (%) (Auto) 12.9 % Monocytes (%) (Auto) 11.6 % Eosinophils (%) (Auto) 3.5 % Basophils (%) (Auto) 0.2 % Neutrophils # (Auto) 4.44 K/uL Lymphocytes # (Auto) 0.81 K/uL Monocytes # (Auto) 0.73 K/uL Eosinophils # (Auto) 0.22 K/uL Basophils # (Auto) 0.01 K/uL RDW Standard Deviation 57.8 fL RDW Coefficient of Variation 18.6 % Immature Granulocyte % (Auto) 1.0 % Immature Granulocyte # (Auto) 0.06 K/uL Prothrombin Time 11.8 SECONDS Prothromb Time International Ratio 1.1 Activated Partial Thromboplast Time 28.6 SECONDS Partial Thromboplastin Ratio 1.1 Sodium Level 142 mmol/L Potassium Level 3.4 mmol/L Chloride Level 109 mmol/L Carbon Dioxide Level 29 mmol/L Anion Gap 4.0 mmol/L Blood Urea Nitrogen 39 mg/dl Creatinine 1.78 mg/dl Est Creatinine Clear Calc Drug Dose 39.7 ml/min Estimated GFR () 45.7 Estimated GFR (Non- 39.4 BUN/Creatinine Ratio 22.2 Random Glucose 139 mg/dl Lactic Acid Level 1.0 mmol/L Calcium Level 8.1 mg/dl Total Bilirubin 0.8 mg/dl Direct Bilirubin 0.4 mg/dl Aspartate Amino Transf (AST/SGOT) 40 U/L Alanine Aminotransferase (ALT/SGPT) 27 U/L Alkaline Phosphatase 336 U/L Total Protein 6.4 gm/dl Albumin 2.4 gm/dl Lipase 607 U/L Ammonia 20.0 umol/L Urine Color YELLOW Urine Appearance CLEAR Urine pH 5.0 Urine Specific [place] 1.020 Urine Protein NEG Urine Glucose (UA) NEG Urine Ketones NEG Urine Occult Blood 1+ Urine Nitrite NEG Urine Bilirubin NEG Urine Urobilinogen NEG Urine Leukocyte Esterase NEG Urine WBC (Auto) 1-5 /hpf Urine RBC (Auto) 5-10 /hpf Urine Hyaline Casts (Auto) 0 /lpf Urine Epithelial Cells (Auto) 0-5 /lpf Urine Bacteria (Auto) NEG Arterial Blood pH 7.44 Arterial Blood Partial Pressure CO2 36 mmHg Arterial Blood Partial Pressure O2 79 mm/Hg Arterial Blood HCO3 24 mmol/L Arterial Blood Oxygen Saturation 93.5 % Arterial Blood Base Excess -0.2 mEq/L Arterial Blood Gas Delivery ROOM AIR Sergio Test POS Test 11/23/17 21:18 11/23/17 22:44 11/24/17 04:15 11/24/17 07:42 Bedside Glucose 197 mg/dl 53 mg/dl Vitamin B12 Level 1882 pg/mL Thyroid Stimulating Hormone (TSH) 1.140 uIu/ml White Blood Count 6.49 K/uL Red Blood Count 3.22 M/uL Hemoglobin 8.8 g/dL Hematocrit 27.5 % Mean Corpuscular Volume 85.4 fL Mean Corpuscular Hemoglobin 27.3 pg Mean Corpuscular Hemoglobin Concent 32.0 g/dl Platelet Count 107 K/uL Mean Platelet Volume 9.6 fL Neutrophils (%) (Auto) 74.4 % Lymphocytes (%) (Auto) 8.0 % Monocytes (%) (Auto) 14.8 % Eosinophils (%) (Auto) 1.8 % Basophils (%) (Auto) 0.2 % Neutrophils # (Auto) 4.83 K/uL Lymphocytes # (Auto) 0.52 K/uL Monocytes # (Auto) 0.96 K/uL Eosinophils # (Auto) 0.12 K/uL Basophils # (Auto) 0.01 K/uL RDW Standard Deviation 58.3 fL RDW Coefficient of Variation 18.6 % Immature Granulocyte % (Auto) 0.8 % Immature Granulocyte # (Auto) 0.05 K/uL Toxic Vacuolation 1+ Polychromasia 1+ Ovalocytes 1+ Activated Partial Thromboplast Time 117.5 SECONDS Partial Thromboplastin Ratio 4.5 Sodium Level 145 mmol/L Potassium Level 3.7 mmol/L Chloride Level 113 mmol/L Carbon Dioxide Level 28 mmol/L Anion Gap 4.0 mmol/L Blood Urea Nitrogen 40 mg/dl Creatinine 1.66 mg/dl Est Creatinine Clear Calc Drug Dose 45.0 ml/min Estimated GFR () 49.7 Estimated GFR (Non- 42.9 BUN/Creatinine Ratio 24.1 Random Glucose 93 mg/dl Calcium Level 7.7 mg/dl Phosphorus Level 3.9 mg/dl Magnesium Level 2.3 mg/dl Total Bilirubin 0.7 mg/dl Aspartate Amino Transf (AST/SGOT) 40 U/L Alanine Aminotransferase (ALT/SGPT) 26 U/L Alkaline Phosphatase 253 U/L Total Protein 5.7 gm/dl Albumin 2.2 gm/dl Globulin 3.5 gm/dl Albumin/Globulin Ratio 0.6 Test 11/24/17 08:00 Bedside Glucose 84 mg/dl ABD/PELVIS IV CONTRAST ONLY CLINICAL HISTORY: 62 years-old Male presenting with left lower quadrant draining/reddness, hernia surgery, incision splitting open and seeping. TECHNIQUE: Multidetector CT of the abdomen and pelvis was performed after the administration of intravenous contrast. IV contrast: 93 mL of Optiray 320. A dose lowering technique was used consistent with the principles of ALARA (as low as reasonably achievable). COMPARISON: 07/22/2017. CT DOSE (mGy.cm): The estimated cumulative dose is 1375.28 mGy.cm. FINDINGS: Etcher Electrolytic topogram: Lumbar fusion hardware. Lung bases: Minimal basilar opacities, likely atelectasis. Overall decreased peribronchovascular and dependent consolidation from prior. Calcified granuloma noted in the left lower lobe. Multichamber enlargement of the heart. Postsurgical changes of the interatrial septum. Coronary artery and aortic valve calcification. No pericardial or pleural effusion. Liver: Nodular contour of the liver consistent with cirrhosis. Allowing for the single phase of contrast, no focal liver lesion. Patent hepatic vasculature. Biliary: No intrahepatic or extrahepatic biliary ductal dilatation. Gallbladder decompressed. Pancreas: Decreased peripancreatic fluid and inflammatory change. Pancreatic parenchyma normal-appearing. Spleen: Mildly enlarged measuring slightly more than 13 cm in maximal sagittal dimension. Adrenal glands: Normal. Kidneys and ureters: Well-defined hypodensity in the left kidney likely simple cyst. Mild cortical thinning may be present. Nonobstructing left renal calculus measures 5 mm. No hydronephrosis. Normal ureters. Bladder: Normal. Pelvic organs: Prostate and seminal vesicles normal. Bowel: Limited diverticulosis of the optimal sigmoid colon. No bowel obstruction. Feces in the small bowel could suggest delayed transit. Duodenal diverticulum noted at the level of the pancreatic head. Mild small bowel wall thickening in the jejunum could relate to portal enteropathy. Peritoneal cavity: Moderate amount of simple appearing ascites in the abdomen and pelvis. There is also a peritoneal defect allowing herniation of ascites into the left retroperitoneum as well as through the anterior peritoneum where there is both interfascial loculated ascites as well as more superficial ascites in the subcutaneous tissue of the left lower quadrant. The volume of herniated ascites has increased from prior. No internal complexity. No free air. Lymph nodes: No enlarged lymph nodes in the abdomen or pelvis. Vasculature: Slight expansion of the right superficial femoral vein and right common femoral vein with a suspected filling defect worrisome for thrombus (series 3 image 455). Atherosclerosis of the normal caliber abdominal aorta. Abdominal wall: Fat-containing right inguinal hernia. Extensive skin thickening and subcutaneous infiltration along the left lateral abdominal wall and left lower quadrant. Musculoskeletal: Posterior lumbar fusion hardware with bridging across the sacroiliac joints. Compression deformity of the L1 vertebral body. This is new from prior. Severe osteopenia. IMPRESSION: 1. Interval development of a compression fracture of L1 in the setting of severe osteopenia. 2. Moderate ascites with increased herniation into the left retroperitoneum, left anterior abdominal wall musculature, and left anterior subcutaneous tissue. The surrounding skin thickening and subcutaneous infiltration in the left anterolateral abdominal wall could suggest associated cellulitis. No internal complexity of the herniated/loculated fluid. Sterility of these collections cannot be confirmed by CT. 3. Interval development of a suspected deep venous thrombosis in the right common and superficial femoral veins. This could be confirmed with lower extremity Doppler venous ultrasound. 4. Cirrhosis with portal hypertension evidenced by mild spinal megaly and ascites. 5. Bibasilar atelectasis. Assessment & Plan 62 year-old male with multiple comorbidities including cirrhosis with recurrent ascites who presented to emergency department last evening with complaint of left lower abdominal redness x [address] scan showing herniation of ascites into retroperitoneum, left anterior abdominal wall musculature as well as subcutaneous tissues. Patient also has LLE DVT currently being treated with IV Heparin. IV Rocephin and Vancomycin started. Patient has been afebrile and no leukocytosis. No signs of abdominal fistula. Believe amount of ascites is causing weakening of previous hernia repair and drainage. Plan: Patient has moderate to large size abdominal wall hernia with slight loss of domain. Given extent of recurrent ascites with history of paracentesis, transfer to tertiary center for possible shunt to reduce ascites and complex hernia repair with possible component separation is recommended. Would continue IV antibiotics: Rocephin and Vancomycin in the meantime. Discussed Dr. Morataya's recommendations with hospitalist Amanda Henning Thank you for consultation and involving us in the care of this patient. Dr. Morataya has seen and examined patient, agrees with above.
--- NOTE | 2017-11-24 12:44 | Pharmacy Progress Note ---
Pharmacy Abx Initial Consult Date of Service Nov 24, 2017. Pharmacy Dosing Scope Date of Consult: 11/23 Consultation requested by: Enma Ruggiero Pharmacy is consulted to initiate Vancomycin IV dosing therapy, order appropriate labs and adjust drug dose/frequency. Subjective The patient is a 62 year old male admitted on Nov 23, 2017 at 17:40. Objective Height (Feet): 5 Height (Inches): 6.00 Weight (Kilograms): 81.300 Vital Signs (Past 12Hrs) Vital Signs Past 12 Hours Date Time Temp Pulse Resp B/P (MAP) Pulse Ox O2 Delivery O2 Flow Rate FiO2 11/24/17 12:12 36.4 73 20 155/77 (103) 95 11/24/17 08:00 Room Air 11/24/17 07:46 36.8 72 20 136/77 (96) 98 Room Air 11/24/17 07:14 71 16 96 Room Air 11/24/17 04:11 36.6 77 18 123/62 (82) 95 Room Air 11/24/17 04:08 76 18 94 Room Air 11/24/17 04:00 Room Air Lab Results (24Hrs) Laboratory Tests (24 Hours) Test 11/23/17 13:29 11/24/17 04:15 Lactic Acid Level 1.0 mmol/L (0.4-2.0) White Blood Count 6.49 K/uL (4.8-10.8) Red Blood Count 3.22 M/uL (4.7-6.1) L Hemoglobin 8.8 g/dL (14.0-18.0) L Hematocrit 27.5 % (42-52) L Mean Corpuscular Volume 85.4 fL (80-100) Mean Corpuscular Hemoglobin 27.3 pg (25-34) Mean Corpuscular Hemoglobin Concent 32.0 g/dl (32-36) Platelet Count 107 K/uL (130-400) L Mean Platelet Volume 9.6 fL (7.4-10.4) Neutrophils (%) (Auto) 74.4 % Lymphocytes (%) (Auto) 8.0 % Monocytes (%) (Auto) 14.8 % Eosinophils (%) (Auto) 1.8 % Basophils (%) (Auto) 0.2 % Neutrophils # (Auto) 4.83 K/uL (1.4-6.5) Lymphocytes # (Auto) 0.52 K/uL (1.2-3.4) L Monocytes # (Auto) 0.96 K/uL (0.11-0.59) H Eosinophils # (Auto) 0.12 K/uL (0-0.5) Basophils # (Auto) 0.01 K/uL (0-0.2) Micro Results Date/Time Source Procedure Growth Status 11/23/17 13:35 Blood Blood Culture Pending Received 11/23/17 13:29 Blood Blood Culture Pending Received Risk Factors for Resistance * Immunocompromised (chronic steroid therapy) * Antimicrobial use within the last 90 days, on chronic suppressive therapy with keflex 500mg bid Assessment & Plan Assessment 62 year old male admitted for possible seeping/split hernia incision. * history of sarcoidosis, cirrhosis, T2DM, HTN, chronic diastolic CHF. * on chronic suppressive therapy with keflex 500mg bid and steroids * hospital stay in 08/06 for sepsis, treated with vancomycin * Estimated pk parameters: ke=0.037 t1/2=19 hrs * Blood cultures pending Plan Vancomycin and rocephin for treatment of cellulitis. (Rocephin is not a consult) Vancomycin IV * Loading dose: 1750 mg (23 mg/kg) * Maintenance dose: 1000 mg IV (13 mg/kg) every 24 hours * Goal trough level for cellulitis : 15 to 20 mcg/mL (aiming higher than traditional cellulitis indication due to risk factors and history) * Trough level ordered for 11/25 @2029 Pharmacy will continue to follow and will adjust dose/frequency as necessary. Thank you.
[2017-11-24 14:17] LABS: PTT PATIENT 70.9 SECONDS (21.0-31.0)
[2017-11-24] MEDS: CEFTRIAXONE SOD INJ 1 GM in DEXTROSE 5% ADD-VANTAGE 50ML 50 ML IV SCH (18:34)
[2017-11-24] MEDS: VANCOMYCIN INJ 1,000 MG in SODIUM CHLORIDE 0.9% 250ML 250 ML IV SCH (20:40)
[2017-11-24 20:54] LABS: PTT PATIENT 40.2 SECONDS (21.0-31.0)
[2017-11-24] MEDS ORDERED: HEPARIN IV BOLUS 4,500 UNIT in SYRINGE 0 ML IV ONE (22:00)
[2017-11-24] MEDS: OXYCODONE HCL IR 5 MG TAB (IMMEDIATE RELEASE) PO PRN (23:00)
[2017-11-25] VITALS (11 sets, daily range): BP systolic 104–165; BP diastolic 68–89; PULSE 63–76; TEMP 36.5–37; O2SAT 94–100
[2017-11-25] MEDS: LACTULOSE SYRUP 30 GM/45 ML UDP PO SCH ×4 (03:32→20:21)
[2017-11-25] MEDS: ALBUTEROL 0.083% NEBU SOLN 3 ML VIAL INH PRN (03:56)
[2017-11-25 05:17] LABS: HEMATOCRIT 28.5 % (42-52); HEMOGLOBIN 9.1 g/dL (14.0-18.0); MEAN CELL VOLUME 85.8 fL (80-100); MEAN CORPUSCULAR HEMOGLOBIN 27.4 pg (25-34); MEAN CORPUSCULAR HGB CONC 31.9 g/dl (32-36); MEAN PLATELET VOLUME 10.1 fL (7.4-10.4); PLATELET COUNT 113 K/uL (130-400); RED CELL DISTRIBUTION WIDTH CV 18.7 % (11.5-14.5); RED CELL DISTRIBUTION WIDTH SD 57.5 fL (36.4-46.3)
[2017-11-25 05:41] LABS: CALCIUM 8.1 mg/dl (8.5-10.1); CREATININE 1.46 mg/dl (0.60-1.40); POTASSIUM 4.1 mmol/L (3.5-5.1)
[2017-11-25 05:52] LABS: PTT PATIENT 121.4 SECONDS (21.0-31.0)
[2017-11-25] MEDS: HEPARIN 25,000 UNIT/500ML D5W 500 ML IV PRN ×2 (07:06→14:31)
[2017-11-25] MEDS: LEVALBUTEROL 1.25MG/3ML NEB INH SCH ×3 (07:20→20:11)
[2017-11-25] MEDS: ATORVASTATIN 10 MG TAB PO SCH (07:55)
[2017-11-25] MEDS: PANTOprazole SOD 40 MG TAB PO SCH (07:55)
[2017-11-25] MEDS: FLUOXETINE HCL 20 MG CAP PO SCH (07:56)
[2017-11-25] MEDS: RIFAXIMIN TAB 550 MG TAB PO SCH ×2 (07:56→20:15)
[2017-11-25] MEDS: PROPRANOLOL HCL 10 MG TAB PO SCH (07:56)
[2017-11-25] MEDS: SPIRONOLACTONE 25 MG TAB PO SCH (07:57)
[2017-11-25] MEDS: INSULIN ASPART 100 UNITS/ML 3 ML PEN SC SCH ×4 (08:02→20:19)
[2017-11-25] MEDS: INSULIN GLARGINE SOLOSTAR 100 UNITS/ML 3 ML PEN SC SCH ×2 (08:03→20:20)
[2017-11-25 14:15] LABS: PTT PATIENT 69.3 SECONDS (21.0-31.0)
[2017-11-25] MEDS: ACETAMINOPHEN 325 MG TAB PO PRN ×2 (14:24→22:37)
[2017-11-25] MEDS: CEFTRIAXONE SOD INJ 1 GM in DEXTROSE 5% ADD-VANTAGE 50ML 50 ML IV SCH (18:27)
[2017-11-25] MEDS: VANCOMYCIN INJ 1,000 MG in SODIUM CHLORIDE 0.9% 250ML 250 ML IV SCH (20:14)
[2017-11-25] MEDS ORDERED: VANCOMYCIN TROUGH ONE (20:30)
--- NOTE | 2017-11-25 20:54 | Progress Note ---
Subjective Date of Service: Nov 25, 2017. Subjective Pt evaluation today including: conversation w/ patient, physical exam 62 yo male presents to the hospital with multiple issues. He has liver cirrhosis. Patient unsure what caused it. He states alcohol may have played a role as well as elevated weight. Today he states that he feels somewhat better but continues to have SOB. He states that the erythema in his abd. is improved. Patient denies fever, chills, Problem List Medical Problems: (1) Altered mental status Status: Acute (2) Ascites Status: Acute (3) Cellulitis of left abdominal wall Status: Acute (4) Dvt femoral (deep venous thrombosis) Status: Acute (5) Fall in home Status: Acute (6) Fever Status: Acute (7) GI bleed Status: Acute (8) Hepatic encephalopathy Status: Acute (9) Hypokalemia Status: Acute (10) Hypotension Status: Acute (11) Hypoxia Status: Acute (12) Immunocompromised Status: Acute (13) Lactic acidosis Status: Acute (14) Left leg cellulitis Status: Acute (15) Lumbar compression fracture Status: Acute (16) Lumbar disc herniation with radiculopathy Status: Acute (17) Orthostasis Status: Acute (18) Pneumonia Status: Acute (19) Sepsis Status: Acute (20) Severe sepsis Status: Acute (21) Tenosynovitis, de Quervain Status: Acute (22) Vomiting Status: Acute Review of Systems Constitutional: No fever, No chills ENT: No hearing loss, No unusual epistaxis Respiratory: No cough, No sputum Cardiac: No chest pain, No orthopnea Abdomen: No pain, No nausea Musculoskeletal: No joint pain Neurologic: No memory loss, No paralysis Psychiatric: No depression symptoms Heme: No abnormal bleeding/bruising Endo: No fatigue Skin: No rash All Other Systems: Reviewed and Negative Medications Current Inpatient Medications Medications (Trade) Dose Ordered Sig/Nathalia Route Start Time Stop Time Status Last Admin Dose Admin Ioversol (Optiray 320) 111 ml UD PRN IV 11/23/17 14:00 11/27/17 13:59 Acetaminophen (Tylenol Tab) 650 mg Q4H PRN PO 11/23/17 17:45 12/23/17 17:44 11/27/17 01:21 650 MG Al Hydrox/Mg Hydrox/Simethicone (Maalox Max Susp) 15 ml Q4H PRN PO 11/23/17 17:45 12/23/17 17:44 Magnesium Hydroxide (Milk Of Magnesia Susp) 30 ml Q12H PRN PO 11/23/17 17:45 12/23/17 17:44 Ondansetron HCl (Zofran Inj) 4 mg Q6H PRN IV 11/23/17 17:45 12/23/17 17:44 Polyethylene (Miralax Powder Packet) 17 gm DAILY PRN PO 11/23/17 17:45 12/23/17 17:44 Insulin Aspart (novoLOG ASPART) SLIDING SCALE If C... ACHS SC 11/23/17 21:00 12/23/17 20:59 11/27/17 08:32 5 UNITS Glucose (Glucose 40% Gel) 15-30 GRAMS 15 GRAMS... UD PRN PO 11/23/17 17:45 12/23/17 17:44 Glucose (Glucose Chew Tab) 4-8 Tablets 4 Tabl... UD PRN PO 11/23/17 17:45 12/23/17 17:44 Dextrose (Dextrose 50% 50ML Syringe) 25-50ML OF 50% DW IV FOR... UD PRN IV 11/23/17 17:45 12/23/17 17:44 Glucagon (Glucagon Inj) 1 mg UD PRN SQ 11/23/17 17:45 12/23/17 17:44 Albuterol Sulfate (Ventolin 0.083% 2.5MG/3ML Neb) 2.5 mg Q4H PRN INH 11/23/17 17:45 12/23/17 17:44 11/25/17 03:56 2.5 MG Atorvastatin Calcium (Lipitor Tab) 10 mg DAILY PO 11/24/17 09:00 12/24/17 08:59 11/27/17 08:22 10 MG Fluoxetine HCl (Prozac Cap) 40 mg QAM PO 11/24/17 09:00 12/24/17 08:59 11/27/17 08:22 40 MG Levalbuterol (Xopenex 1.25MG/ 3ML Neb) 1.25 mg TID INH 11/23/17 21:00 12/23/17 20:59 11/27/17 07:28 1.25 MG Ondansetron HCl (Zofran Tab) 4 mg Q4 PRN PO 11/23/17 17:45 12/23/17 17:44 Oxycodone HCl (Roxicodone Immediate Rel Tab) 5 mg Q4H PRN PO 11/23/17 17:45 12/07/17 17:44 11/26/17 14:39 5 MG Pantoprazole Sodium (Protonix Tab) 40 mg QAM PO 11/24/17 09:00 12/24/17 08:59 11/27/17 08:22 40 MG Propranolol HCl (Inderal Tab) 10 mg DAILY PO 11/24/17 09:00 12/24/17 08:59 11/27/17 08:23 10 MG Ceftriaxone Sodium 1 gm/ Dextrose 50 ml @ 100 mls/hr Q24H IV 11/23/17 18:45 12/03/17 18:44 11/26/17 18:33 100 MLS/HR Insulin Glargine (Lantus Solostar Pen) 20 units BID SC 11/23/17 21:00 12/23/17 20:59 11/27/17 08:29 20 UNITS Vancomycin HCl (Consult) 1 ea UD PRN N/A 11/23/17 21:15 12/23/17 21:14 Lactulose (Chronulac Syrup) 30 gm Q6H PO 11/24/17 03:00 12/23/17 20:59 11/27/17 08:23 30 GM Rifaximin (Xifaxan Tab) 550 mg BID PO 11/24/17 09:00 12/24/17 08:59 11/27/17 08:21 550 MG Heparin Sodium/ Dextrose 500 ml @ 11 mls/hr Q24H PRN IV 11/23/17 21:45 12/23/17 21:44 11/25/17 14:31 11 MLS/HR Vancomycin HCl 1250 mg/Sodium Chloride 275 ml @ 125 mls/hr Q24H IV 11/26/17 12:00 12/04/17 11:59 11/26/17 12:29 125 MLS/HR Spironolactone (Aldactone Tab) 100 mg QAM PO 11/27/17 09:00 12/27/17 08:59 11/27/17 08:23 100 MG Furosemide (Lasix Tab) 40 mg QAM PO 11/27/17 09:00 12/27/17 08:59 11/27/17 08:22 40 MG Prednisolone Sodium Phosphate (Pediapred Oral Soln) 20 mg DAILY PO 11/27/17 09:00 12/27/17 08:59 11/27/17 08:37 20 MG Objective Vital Signs Date Time Temp Pulse Resp B/P (MAP) Pulse Ox O2 Delivery O2 Flow Rate FiO2 11/25/17 19:36 36.9 67 18 140/77 (98) 97 Room Air 11/25/17 16:00 Room Air 11/25/17 14:56 66 16 96 Room Air 11/25/17 14:40 36.6 63 18 158/82 (107) 97 Room Air 11/25/17 12:00 Room Air 11/25/17 11:06 36.5 67 20 144/76 (98) 97 Room Air 11/25/17 08:00 Room Air 11/25/17 07:47 71 16 98 Room Air 11/25/17 07:12 36.6 66 20 165/89 (114) 100 Room Air 11/25/17 05:07 36.6 76 20 104/68 (80) 94 BiPAP 11/25/17 03:59 Room Air 11/25/17 03:56 74 16 96 Room Air 11/25/17 00:05 Room Air 11/24/17 23:46 36.3 76 18 133/75 (94) 96 Room Air Physical Exam Comments: General appearance: Patient is completely awake Well-developed, well-nourished , no apparent distress Head: Normocephalic, atraumatic Eyes: Normal inspection, PERRL, EOMI ENT: Normal ENT inspection, hearing grossly normal, pharynx normal Neck: Supple, no JVD, trachea midline Respiratory/Chest: Lungs clear to auscultation, normal breath sounds, no respiratory distress Cardiovascular: +Systolic murmur. Regular rate & rhythm, no gallop Abdomen/GI: +Large reducible LLQ hernia. Incision with very decreased erythema Non-tender. No drainage currently. Normal bowel sounds, non-tender, soft Extremities/Musculoskeletal: +Trace pitting edema. Normal inspection, no calf tenderness Neurological/Psych: +Awake, Oriented x 3. Normal mood/affect, oriented x 3 Skin: Normal color, warm/dry, no rash Laboratory Results Last 24 Hours Test 11/25/17 04:33 11/25/17 07:38 11/25/17 11:42 11/25/17 12:49 White Blood Count 6.60 K/uL Red Blood Count 3.32 M/uL Hemoglobin 9.1 g/dL Hematocrit 28.5 % Mean Corpuscular Volume 85.8 fL Mean Corpuscular Hemoglobin 27.4 pg Mean Corpuscular Hemoglobin Concent 31.9 g/dl RDW Standard Deviation 57.5 fL RDW Coefficient of Variation 18.7 % Platelet Count 113 K/uL Mean Platelet Volume 10.1 fL Activated Partial Thromboplast Time 121.4 SECONDS 69.3 SECONDS Partial Thromboplastin Ratio 4.7 2.7 Sodium Level 143 mmol/L Potassium Level 4.1 mmol/L Chloride Level 112 mmol/L Carbon Dioxide Level 26 mmol/L Anion Gap 5.0 mmol/L Blood Urea Nitrogen 33 mg/dl Creatinine 1.46 mg/dl Est Creatinine Clear Calc Drug Dose 51.2 ml/min Estimated GFR () 58.1 Estimated GFR (Non- 50.1 BUN/Creatinine Ratio 22.3 Random Glucose 191 mg/dl Calcium Level 8.1 mg/dl Magnesium Level 2.4 mg/dl Bedside Glucose 117 mg/dl 194 mg/dl Test 11/25/17 16:35 11/25/17 18:55 11/25/17 20:11 Bedside Glucose 200 mg/dl 224 mg/dl Assessment and Plan 62 y/o male with a history of 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 Encephalopathy with unclear etiology--improved -Admit to telemetry. No acute events overnight. Pt in SR with HR in 70s -ABG unremarkable, head CT negative -Metabolic encephalopathy secondary to cellulitis vs hepatic encephalopathy due to cirrhosis, although ammonia WNL -TSH, B12 WNL L-Sided Abdominal Cellulitis--improving, -Chronic suppressive Keflex and chronic steroids -Cellulitis vs irritation, possible fistula -General surgery consulted regarding possible fistula, appreciate recs -Continue Rocephin 1 gm IV qd and vancomycin for now. Day #3 R Common Femoral DVT and Superficial Femoral Vein--stable -Continue heparin drip -will either require anticoag or IVF filter. d/w spouse and patient. discussed risks and benefits of both will let me know tomorrow LETTY--improving will hold off IVF Ascities: placed on lasix and aldactone at 100/40 ratio may need paracenthesis as this is making his work of breathing harder will place on BIPAP at night patient had bIPAP machine at home but lost it. Does not know settings Placed at 12/5 Compression Fracture of L1 with Avascular Necrosis--stable - Appearing acute to subacute with no associated retropulsion, high-grade central canal or foraminal narrowing - No complaints of back pain. Consult orthotics for back brace - Could consider discussion with Dr. 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 -Changed prednisone to prednisolone due to his cirrhosis [id number]--tiuaxm, HgbA1c 8.4 (Sep 2017) - Lantus 20 units SC BID - Insulin sliding scale - Check BSGs q ac and qhs Sarcoidosis with Extra-Pulmonary Effects--stable - Ventolin Q4H PRN and Xopenex neb TID - Prednisone 20 mg daily HTN, HLD--stable - Continue propranolol 10 mg PO qd and atorvastatin 10 gm PO qd DVT prophylaxis -Heparin drip Code Status -Level I, FULL RESUSCITATION STATUS I spent 65 minutes in the management of this case, including face to face time with patient.
[2017-11-25] MEDS ORDERED: SPIRONOLACTONE 25 MG TAB PO ONE (21:00)
[2017-11-25] MEDS ORDERED: FUROSEMIDE INJ 20 MG in SYRINGE 0 ML IV STA (21:10)
[2017-11-26] VITALS (10 sets, daily range): BP systolic 145–160; BP diastolic 70–83; PULSE 62–79; TEMP 36.3–36.7; O2SAT 90–99
[2017-11-26] MEDS: LACTULOSE SYRUP 30 GM/45 ML UDP PO SCH ×4 (03:00→20:32)
[2017-11-26] MEDS: ACETAMINOPHEN 325 MG TAB PO PRN ×2 (04:54→08:39)
[2017-11-26] MEDS: LEVALBUTEROL 1.25MG/3ML NEB INH SCH ×3 (07:37→19:32)
[2017-11-26 07:39] LABS: HEMATOCRIT 31.1 % (42-52); HEMOGLOBIN 9.4 g/dL (14.0-18.0); MEAN CELL VOLUME 85.9 fL (80-100); MEAN CORPUSCULAR HGB CONC 30.2 g/dl (32-36); MEAN PLATELET VOLUME 10.5 fL (7.4-10.4); PLATELET COUNT 122 K/uL (130-400); RED CELL DISTRIBUTION WIDTH CV 18.6 % (11.5-14.5); RED CELL DISTRIBUTION WIDTH SD 58.3 fL (36.4-46.3); WHITE BLOOD COUNT 5.49 K/uL (4.8-10.8)
[2017-11-26 08:03] LABS: CALCIUM 8.5 mg/dl (8.5-10.1); CREATININE 1.54 mg/dl (0.60-1.40); POTASSIUM 3.7 mmol/L (3.5-5.1)
[2017-11-26 08:21] LABS: PTT PATIENT 47.1 SECONDS (21.0-31.0)
[2017-11-26] MEDS: FLUOXETINE HCL 20 MG CAP PO SCH (08:28)
[2017-11-26] MEDS: RIFAXIMIN TAB 550 MG TAB PO SCH ×2 (08:28→20:32)
[2017-11-26] MEDS: PROPRANOLOL HCL 10 MG TAB PO SCH (08:29)
[2017-11-26] MEDS: ATORVASTATIN 10 MG TAB PO SCH (08:29)
[2017-11-26] MEDS: SPIRONOLACTONE 25 MG TAB PO SCH (08:29)
[2017-11-26] MEDS: PANTOprazole SOD 40 MG TAB PO SCH (08:30)
[2017-11-26] MEDS: INSULIN ASPART 100 UNITS/ML 3 ML PEN SC SCH ×4 (08:36→20:35)
[2017-11-26] MEDS: INSULIN GLARGINE SOLOSTAR 100 UNITS/ML 3 ML PEN SC SCH ×2 (08:37→20:34)
--- NOTE | 2017-11-26 11:42 | Pharmacy Progress Note ---
Pharmacy Abx Dose Short Note Date of Service Nov 26, 2017. Assessment & Plan Assessment 62 year old male receiving vancomycin and Rocephin for treatment of left sided abdominal wall cellulitis. Day # 4 of antimicrobial therapy. Plan Vancomycin * Trough level of 9.9 mcg/mL (11/25 2100 dose) is subtherapeutic. * Change to 1250 mg IV every 24 hours (~14mg/kg) with next dose at 1200. Confirmed with random this am that is within desired trough range. * Goal trough level for cellulitis : 15 to 20 mcg/mL * Will follow up with orders for levels tomorrow if vanc is continued. Pharmacy will continue to follow and will adjust dose/frequency as necessary. Thank you.
[2017-11-26] MEDS ORDERED: VANCOMYCIN INJ 1,250 MG in SODIUM CHLORIDE 0.9% 250ML 250 ML IV SCH (12:00)
[2017-11-26] MEDS: OXYCODONE HCL IR 5 MG TAB (IMMEDIATE RELEASE) PO PRN (14:39)
[2017-11-26] MEDS ORDERED: FUROSEMIDE 40 MG TAB PO ONE (16:15)
[2017-11-26] MEDS ORDERED: SPIRONOLACTONE 25 MG TAB PO ONE (16:15)
[2017-11-26] MEDS: CEFTRIAXONE SOD INJ 1 GM in DEXTROSE 5% ADD-VANTAGE 50ML 50 ML IV SCH (18:33)
--- NOTE | 2017-11-26 22:24 | Progress Note ---
Subjective Date of Service: Nov 26, 2017. Subjective Patient reports no worsening today. He continues to feel SOB however. Patient reports that his BIPAP was a little uncomfortable. He believes the setting was too strong. In regards to his DVT, he states that he would be interested in a temporary IVC filter. He denies fever, chills, nausea, vomiting. Problem List Medical Problems: (1) Altered mental status Status: Acute (2) Ascites Status: Acute (3) Cellulitis of left abdominal wall Status: Acute (4) Dvt femoral (deep venous thrombosis) Status: Acute (5) Fall in home Status: Acute (6) Fever Status: Acute (7) GI bleed Status: Acute (8) Hepatic encephalopathy Status: Acute (9) Hypokalemia Status: Acute (10) Hypotension Status: Acute (11) Hypoxia Status: Acute (12) Immunocompromised Status: Acute (13) Lactic acidosis Status: Acute (14) Left leg cellulitis Status: Acute (15) Lumbar compression fracture Status: Acute (16) Lumbar disc herniation with radiculopathy Status: Acute (17) Orthostasis Status: Acute (18) Pneumonia Status: Acute (19) Sepsis Status: Acute (20) Severe sepsis Status: Acute (21) Tenosynovitis, de Quervain Status: Acute (22) Vomiting Status: Acute Review of Systems Constitutional: No fever, No chills Respiratory: + cough, + shortness of breath, + dyspnea on exertion, No sputum Cardiac: No chest pain, No orthopnea Abdomen: + problem reported (ascities) Musculoskeletal: No joint pain Neurologic: No memory loss, No paralysis Psychiatric: No depression symptoms, No anhedonism Heme: + clotting problems Endo: + fatigue Skin: No rash, No itch All Other Systems: Reviewed and Negative Medications Current Inpatient Medications Medications (Trade) Dose Ordered Sig/Nathalia Route Start Time Stop Time Status Last Admin Dose Admin Ioversol (Optiray 320) 111 ml UD PRN IV 11/23/17 14:00 11/27/17 13:59 Acetaminophen (Tylenol Tab) 650 mg Q4H PRN PO 11/23/17 17:45 12/23/17 17:44 11/27/17 01:21 650 MG Al Hydrox/Mg Hydrox/Simethicone (Maalox Max Susp) 15 ml Q4H PRN PO 11/23/17 17:45 12/23/17 17:44 Magnesium Hydroxide (Milk Of Magnesia Susp) 30 ml Q12H PRN PO 11/23/17 17:45 12/23/17 17:44 Ondansetron HCl (Zofran Inj) 4 mg Q6H PRN IV 11/23/17 17:45 12/23/17 17:44 Polyethylene (Miralax Powder Packet) 17 gm DAILY PRN PO 11/23/17 17:45 12/23/17 17:44 Insulin Aspart (novoLOG ASPART) SLIDING SCALE If C... ACHS SC 11/23/17 21:00 12/23/17 20:59 11/27/17 08:32 5 UNITS Glucose (Glucose 40% Gel) 15-30 GRAMS 15 GRAMS... UD PRN PO 11/23/17 17:45 12/23/17 17:44 Glucose (Glucose Chew Tab) 4-8 Tablets 4 Tabl... UD PRN PO 11/23/17 17:45 12/23/17 17:44 Dextrose (Dextrose 50% 50ML Syringe) 25-50ML OF 50% DW IV FOR... UD PRN IV 11/23/17 17:45 12/23/17 17:44 Glucagon (Glucagon Inj) 1 mg UD PRN SQ 11/23/17 17:45 12/23/17 17:44 Albuterol Sulfate (Ventolin 0.083% 2.5MG/3ML Neb) 2.5 mg Q4H PRN INH 11/23/17 17:45 12/23/17 17:44 11/25/17 03:56 2.5 MG Atorvastatin Calcium (Lipitor Tab) 10 mg DAILY PO 11/24/17 09:00 12/24/17 08:59 11/27/17 08:22 10 MG Fluoxetine HCl (Prozac Cap) 40 mg QAM PO 11/24/17 09:00 12/24/17 08:59 11/27/17 08:22 40 MG Levalbuterol (Xopenex 1.25MG/ 3ML Neb) 1.25 mg TID INH 11/23/17 21:00 12/23/17 20:59 11/27/17 07:28 1.25 MG Ondansetron HCl (Zofran Tab) 4 mg Q4 PRN PO 11/23/17 17:45 12/23/17 17:44 Oxycodone HCl (Roxicodone Immediate Rel Tab) 5 mg Q4H PRN PO 11/23/17 17:45 12/07/17 17:44 11/26/17 14:39 5 MG Pantoprazole Sodium (Protonix Tab) 40 mg QAM PO 11/24/17 09:00 12/24/17 08:59 11/27/17 08:22 40 MG Propranolol HCl (Inderal Tab) 10 mg DAILY PO 11/24/17 09:00 12/24/17 08:59 11/27/17 08:23 10 MG Ceftriaxone Sodium 1 gm/ Dextrose 50 ml @ 100 mls/hr Q24H IV 11/23/17 18:45 12/03/17 18:44 11/26/17 18:33 100 MLS/HR Insulin Glargine (Lantus Solostar Pen) 20 units BID SC 11/23/17 21:00 12/23/17 20:59 11/27/17 08:29 20 UNITS Vancomycin HCl (Consult) 1 ea UD PRN N/A 11/23/17 21:15 12/23/17 21:14 Lactulose (Chronulac Syrup) 30 gm Q6H PO 11/24/17 03:00 12/23/17 20:59 11/27/17 08:23 30 GM Rifaximin (Xifaxan Tab) 550 mg BID PO 11/24/17 09:00 12/24/17 08:59 11/27/17 08:21 550 MG Heparin Sodium/ Dextrose 500 ml @ 11 mls/hr Q24H PRN IV 11/23/17 21:45 12/23/17 21:44 11/25/17 14:31 11 MLS/HR Vancomycin HCl 1250 mg/Sodium Chloride 275 ml @ 125 mls/hr Q24H IV 11/26/17 12:00 12/04/17 11:59 11/26/17 12:29 125 MLS/HR Spironolactone (Aldactone Tab) 100 mg QAM PO 11/27/17 09:00 12/27/17 08:59 11/27/17 08:23 100 MG Furosemide (Lasix Tab) 40 mg QAM PO 11/27/17 09:00 12/27/17 08:59 11/27/17 08:22 40 MG Prednisolone Sodium Phosphate (Pediapred Oral Soln) 20 mg DAILY PO 11/27/17 09:00 12/27/17 08:59 11/27/17 08:37 20 MG Objective Vital Signs Date Time Temp Pulse Resp B/P (MAP) Pulse Ox O2 Delivery O2 Flow Rate FiO2 11/26/17 22:11 69 95 21 11/26/17 20:00 Room Air BiPAP 11/26/17 19:51 36.6 62 18 151/73 (99) 98 Room Air 11/26/17 19:32 73 16 97 Room Air 11/26/17 16:00 Room Air 11/26/17 14:59 36.7 70 18 158/80 (106) 96 Room Air 11/26/17 14:25 70 16 90 Room Air 11/26/17 12:00 Room Air 11/26/17 11:12 36.4 70 18 145/70 (95) 97 Room Air 11/26/17 07:40 Room Air 11/26/17 07:37 79 16 96 Room Air 11/26/17 07:19 36.4 70 16 153/83 (106) 96 Room Air 11/26/17 04:00 Room Air 11/26/17 02:40 36.5 69 18 160/79 (106) 99 CPAP 11/26/17 00:00 Room Air 11/25/17 23:48 72 98 21 11/25/17 22:55 37.0 74 20 145/74 (97) 99 Room Air Physical Exam Comments: General appearance: Awake, Well-developed, well-nourished, no apparent distress Head: Normocephalic, atraumatic Eyes: Normal inspection, PERRL, EOMI ENT: Normal ENT inspection, hearing grossly normal, pharynx normal Neck: Supple, no JVD, trachea midline Respiratory/Chest: Lungs clear to auscultation, normal breath sounds, no respiratory distress Cardiovascular: +Systolic murmur. Regular rate & rhythm, no gallop Abdomen/GI: +Large reducible LLQ hernia. No erythema noted Non-tender. No drainage currently. Normal bowel sounds, non-tender, soft Extremities/Musculoskeletal: +Trace pitting edema. Normal inspection, no calf tenderness Neurological/Psych: Awake Oriented x 3. Normal mood/affect, oriented x 3 Skin: Normal color, warm/dry, no rash Laboratory Results Last 24 Hours Test 11/26/17 07:16 11/26/17 07:25 11/26/17 09:44 11/26/17 11:24 White Blood Count 5.49 K/uL Red Blood Count 3.62 M/uL Hemoglobin 9.4 g/dL Hematocrit 31.1 % Mean Corpuscular Volume 85.9 fL Mean Corpuscular Hemoglobin 26.0 pg Mean Corpuscular Hemoglobin Concent 30.2 g/dl RDW Standard Deviation 58.3 fL RDW Coefficient of Variation 18.6 % Platelet Count 122 K/uL Mean Platelet Volume 10.5 fL Activated Partial Thromboplast Time 47.1 SECONDS Partial Thromboplastin Ratio 1.8 Sodium Level 141 mmol/L Potassium Level 3.7 mmol/L Chloride Level 109 mmol/L Carbon Dioxide Level 26 mmol/L Anion Gap 6.0 mmol/L Blood Urea Nitrogen 29 mg/dl Creatinine 1.54 mg/dl Est Creatinine Clear Calc Drug Dose 50.7 ml/min Estimated GFR () 54.5 Estimated GFR (Non- 47.0 BUN/Creatinine Ratio 19.0 Random Glucose 91 mg/dl Calcium Level 8.5 mg/dl Magnesium Level 2.2 mg/dl Bedside Glucose 82 mg/dl 137 mg/dl Random Vancomycin Level 15.7 mcg/ml Test 11/26/17 16:17 11/26/17 20:05 Bedside Glucose 155 mg/dl 235 mg/dl Assessment and Plan 62 y/o male with a history of 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 Encephalopathy with unclear etiology--RESOLVED Likly hepatic encephalopathy -Admit to telemetry. No acute events overnight. Pt in SR with HR in 70s -ABG unremarkable, head CT negative -Metabolic encephalopathy secondary to cellulitis vs hepatic encephalopathy due to cirrhosis, although ammonia WNL -TSH, B12 WNL L-Sided Abdominal Cellulitis--improved -Chronic suppressive Keflex and chronic steroids -Cellulitis vs irritation, possible fistula -General surgery consulted regarding possible fistula, appreciate recs -Continue Rocephin 1 gm IV qd and vancomycin for now. Day #4 R Common Femoral DVT and Superficial Femoral Vein--stable -Continue heparin drip Family opted for tempoaryy IVC filter. will place once acute issues resolve LETTY-- stable. Ascities: placed on lasix and aldactone at 100/40 ratio may need paracenthesis as this is making his work of breathing harder will continue on BIPAP at night decrease setting at 10/5 Compression Fracture of L1 with Avascular Necrosis--stable - Appearing acute to subacute with no associated retropulsion, high-grade central canal or foraminal narrowing - No complaints of back pain. Consult orthotics for back brace - Could consider discussion with Dr. 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 - Continue spironolactone 100 mg PO qd, Xifaxan 550 mg PO BID - will recommend paracenthesis on MONDAY. -on prednisolone [id number], HgbA1c 8.4 (Sep 2017) - Lantus 20 units SC BID - Insulin sliding scale - Check BSGs q ac and qhs Sarcoidosis with Extra-Pulmonary Effects--stable - Ventolin Q4H PRN and Xopenex neb TID - Prednisone 20 mg daily HTN, HLD--stable - Continue propranolol 10 mg PO qd and atorvastatin 10 gm PO qd DVT prophylaxis -Heparin drip Continued [facility] stay due to: multiple IV medications needed, home environment unsafe for pt Discharge planning: uncertain
[2017-11-27] VITALS (10 sets, daily range): BP systolic 125–142; BP diastolic 72–86; PULSE 70–86; TEMP 36.5–36.9; O2SAT 95–99
[2017-11-27] MEDS: ACETAMINOPHEN 325 MG TAB PO PRN ×2 (01:21→08:46)
[2017-11-27] MEDS: LACTULOSE SYRUP 30 GM/45 ML UDP PO SCH ×3 (03:00→20:40)
[2017-11-27 06:21] LABS: HEMATOCRIT 27.3 % (42-52); HEMOGLOBIN 8.7 g/dL (14.0-18.0); MEAN CELL VOLUME 84.5 fL (80-100); MEAN CORPUSCULAR HEMOGLOBIN 26.9 pg (25-34); MEAN CORPUSCULAR HGB CONC 31.9 g/dl (32-36); RED CELL DISTRIBUTION WIDTH CV 18.3 % (11.5-14.5); RED CELL DISTRIBUTION WIDTH SD 56.9 fL (36.4-46.3); WHITE BLOOD COUNT 5.76 K/uL (4.8-10.8)
[2017-11-27 06:24] LABS: PTT PATIENT 51.1 SECONDS (21.0-31.0)
[2017-11-27 06:29] LABS: CALCIUM 8.1 mg/dl (8.5-10.1); CREATININE 1.5 mg/dl (0.60-1.40); POTASSIUM 4.4 mmol/L (3.5-5.1); TOTAL PROTEIN 5.5 gm/dl (6.4-8.2)
[2017-11-27 07:24] LABS: PLATELET COUNT 77 K/uL (130-400)
[2017-11-27] MEDS: LEVALBUTEROL 1.25MG/3ML NEB INH SCH ×3 (07:28→19:22)
--- NOTE | 2017-11-27 08:17 | Hospitalist Progress Note ---
Hospitalist Progress Note Date of Service Nov 27, 2017. Subjective Pt evaluation today including: conversation w/ patient, physical exam, chart review, lab review, review of studies, review of inpatient medication list Patient seen and evaluated. No acute events overnight. Mentation improved and answers questions appropriately. Reports no complaints but does have some back pain and utilizing brace. Has significant ecchymosis of arm while on heparin gtt. Will consult GI for recommendations of needing to perform paracentesis vs does he need tips procedure? Large LLQ hernia remains reducible and verbalizes no complaints with it. Will seek heme/onc recommendations for anticoagulation with common femoral DVT and underlying liver disorder. Constitutional: No fever, No chills Respiratory: No cough, No shortness of breath Cardiovascular: No chest pain, No palpitations Abdomen: No pain, No nausea, No vomiting, No diarrhea, No constipation Musculoskeletal: No calf pain Heme: + abnormal bleeding/bruising (significant ecchymosis) Medications Current Inpatient Medications Medications (Trade) Dose Ordered Sig/Nathalia Route Start Time Stop Time Status Last Admin Dose Admin Ioversol (Optiray 320) 111 ml UD PRN IV 11/23/17 14:00 11/27/17 13:59 Acetaminophen (Tylenol Tab) 650 mg Q4H PRN PO 11/23/17 17:45 12/23/17 17:44 11/27/17 08:46 650 MG Al Hydrox/Mg Hydrox/Simethicone (Maalox Max Susp) 15 ml Q4H PRN PO 11/23/17 17:45 12/23/17 17:44 Magnesium Hydroxide (Milk Of Magnesia Susp) 30 ml Q12H PRN PO 11/23/17 17:45 12/23/17 17:44 Ondansetron HCl (Zofran Inj) 4 mg Q6H PRN IV 11/23/17 17:45 12/23/17 17:44 Polyethylene (Miralax Powder Packet) 17 gm DAILY PRN PO 11/23/17 17:45 12/23/17 17:44 Insulin Aspart (novoLOG ASPART) SLIDING SCALE If C... ACHS SC 11/23/17 21:00 12/23/17 20:59 11/27/17 12:25 8 UNITS Glucose (Glucose 40% Gel) 15-30 GRAMS 15 GRAMS... UD PRN PO 11/23/17 17:45 12/23/17 17:44 Glucose (Glucose Chew Tab) 4-8 Tablets 4 Tabl... UD PRN PO 11/23/17 17:45 12/23/17 17:44 Dextrose (Dextrose 50% 50ML Syringe) 25-50ML OF 50% DW IV FOR... UD PRN IV 11/23/17 17:45 12/23/17 17:44 Glucagon (Glucagon Inj) 1 mg UD PRN SQ 11/23/17 17:45 12/23/17 17:44 Albuterol Sulfate (Ventolin 0.083% 2.5MG/3ML Neb) 2.5 mg Q4H PRN INH 11/23/17 17:45 12/23/17 17:44 11/25/17 03:56 2.5 MG Atorvastatin Calcium (Lipitor Tab) 10 mg DAILY PO 11/24/17 09:00 12/24/17 08:59 11/27/17 08:22 10 MG Fluoxetine HCl (Prozac Cap) 40 mg QAM PO 11/24/17 09:00 12/24/17 08:59 11/27/17 08:22 40 MG Levalbuterol (Xopenex 1.25MG/ 3ML Neb) 1.25 mg TID INH 11/23/17 21:00 12/23/17 20:59 11/27/17 07:28 1.25 MG Ondansetron HCl (Zofran Tab) 4 mg Q4 PRN PO 11/23/17 17:45 12/23/17 17:44 Oxycodone HCl (Roxicodone Immediate Rel Tab) 5 mg Q4H PRN PO 11/23/17 17:45 12/07/17 17:44 11/26/17 14:39 5 MG Pantoprazole Sodium (Protonix Tab) 40 mg QAM PO 11/24/17 09:00 12/24/17 08:59 11/27/17 08:22 40 MG Propranolol HCl (Inderal Tab) 10 mg DAILY PO 11/24/17 09:00 12/24/17 08:59 11/27/17 08:23 10 MG Insulin Glargine (Lantus Solostar Pen) 20 units BID SC 11/23/17 21:00 12/23/17 20:59 11/27/17 08:29 20 UNITS Rifaximin (Xifaxan Tab) 550 mg BID PO 11/24/17 09:00 12/24/17 08:59 11/27/17 08:21 550 MG Heparin Sodium/ Dextrose 500 ml @ 11 mls/hr Q24H PRN IV 11/23/17 21:45 12/23/17 21:44 11/25/17 14:31 11 MLS/HR Spironolactone (Aldactone Tab) 100 mg QAM PO 11/27/17 09:00 12/27/17 08:59 11/27/17 08:23 100 MG Furosemide (Lasix Tab) 40 mg QAM PO 11/27/17 09:00 12/27/17 08:59 11/27/17 08:22 40 MG Lactulose (Chronulac Syrup) 30 gm BID PO 11/27/17 21:00 12/23/17 20:59 Ceftriaxone Sodium 2000 mg/ Dextrose 70 ml @ 140 mls/hr Q24H IV 11/27/17 18:00 12/02/17 18:29 Prednisone (PredniSONE TAB) 20 mg DAILY PO 11/28/17 09:00 12/28/17 08:59 Objective Vital Signs Date Time Temp Pulse Resp B/P (MAP) Pulse Ox O2 Delivery O2 Flow Rate FiO2 11/27/17 07:28 72 16 98 Room Air 11/27/17 07:13 36.9 79 18 128/80 (96) 99 Room Air 11/27/17 04:00 Room Air BiPAP 11/27/17 03:57 36.5 75 18 125/76 (92) 97 BiPAP 11/27/17 00:00 Room Air BiPAP 11/26/17 23:06 36.3 75 18 146/73 (97) 99 BiPAP 11/26/17 22:11 69 95 21 11/26/17 20:00 Room Air BiPAP 11/26/17 19:51 36.6 62 18 151/73 (99) 98 Room Air 11/26/17 19:32 73 16 97 Room Air 11/26/17 16:00 Room Air 11/26/17 14:59 36.7 70 18 158/80 (106) 96 Room Air 11/26/17 14:25 70 16 90 Room Air 11/26/17 12:00 Room Air 1/7/18 11:12 36.4 70 18 145/70 (95) 97 Room Air Physical Exam General Appearance: WD/WN, no apparent distress Eyes: sclerae normal ENT: hearing grossly normal Neck: supple, no JVD, trachea midline Respiratory/Chest: lungs clear, normal breath sounds, no respiratory distress, no accessory muscle use Cardiovascular: regular rate, rhythm Abdomen: normal bowel sounds, non tender, + pertinent finding (large abdomen with ascites largely of the LLQ with caput medusa; large LLQ reducible hernia; small scabbed lesions without drainage) Extremities: no pedal edema, no calf tenderness Neurologic/Psychiatric: alert, oriented x 3 Skin: normal color, warm/dry Laboratory Results Last 24 Hours Test 11/26/17 09:44 11/26/17 11:24 11/26/17 16:17 11/26/17 20:05 Random Vancomycin Level 15.7 mcg/ml Bedside Glucose 137 mg/dl 155 mg/dl 235 mg/dl Test 11/27/17 05:30 11/27/17 07:42 White Blood Count 5.76 K/uL Red Blood Count 3.23 M/uL Hemoglobin 8.7 g/dL Hematocrit 27.3 % Mean Corpuscular Volume 84.5 fL Mean Corpuscular Hemoglobin 26.9 pg Mean Corpuscular Hemoglobin Concent 31.9 g/dl RDW Standard Deviation 56.9 fL RDW Coefficient of Variation 18.3 % Platelet Count 77 K/uL Platelet Estimate DECREASED Activated Partial Thromboplast Time 51.1 SECONDS Partial Thromboplastin Ratio 2.0 Sodium Level 137 mmol/L Potassium Level 4.4 mmol/L Chloride Level 105 mmol/L Carbon Dioxide Level 26 mmol/L Anion Gap 6.0 mmol/L Blood Urea Nitrogen 28 mg/dl Creatinine 1.50 mg/dl Est Creatinine Clear Calc Drug Dose 52.0 ml/min Estimated GFR () 56.2 Estimated GFR (Non- 48.5 BUN/Creatinine Ratio 18.6 Random Glucose 145 mg/dl Calcium Level 8.1 mg/dl Total Bilirubin 0.9 mg/dl Aspartate Amino Transf (AST/SGOT) 36 U/L Alanine Aminotransferase (ALT/SGPT) 26 U/L Alkaline Phosphatase 234 U/L Total Protein 5.5 gm/dl Albumin 2.0 gm/dl Globulin 3.5 gm/dl Albumin/Globulin Ratio 0.6 Bedside Glucose 114 mg/dl Assessment and Plan Mr. 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 Acute Hepatic Encephalopathy: RESOLVED - Continue to monitor and continue home medications L-Sided Abdominal Cellulitis: - Convert to Keflex 500 mg BID - is on this suppressively and can continue on D/ C - Gen Surg consultation - suggesting possible need for tertiary evaluation of hernia -- Given he is asymptomatic and it remains reducible - likely can follow as outpatient R Common Femoral DVT and Superficial Femoral Vein: - Continue heparin gtt at this time and will consult heme/onc and appreciate assistance given his underlying cirrhosis/thrombocytopenia possible Lovenox? 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 or any other recommendations T2DM: A1c 8.4 (Sep 2017) - Lantus 20 units SC BID and SSI Sarcoidosis with Extra-Pulmonary Effects: - Ventolin Q4H PRN and Xopenex neb TID - Prednisone 20 mg daily HLD: - Atorvastatin 10 mg daily HTN: - Propranolol 10 mg daily DVT Prophylaxis: Heparin gtt Code Status: FULL RESUSCITATION Continued [facility] stay due to: multiple IV medications needed Discharge planning: home
[2017-11-27] MEDS: RIFAXIMIN TAB 550 MG TAB PO SCH ×2 (08:21→20:38)
[2017-11-27] MEDS: PANTOprazole SOD 40 MG TAB PO SCH (08:22)
[2017-11-27] MEDS: FUROSEMIDE 40 MG TAB PO SCH (08:22)
[2017-11-27] MEDS: FLUOXETINE HCL 20 MG CAP PO SCH (08:22)
[2017-11-27] MEDS: ATORVASTATIN 10 MG TAB PO SCH (08:22)
[2017-11-27] MEDS: SPIRONOLACTONE 100 MG TAB PO SCH (08:23)
[2017-11-27] MEDS: PROPRANOLOL HCL 10 MG TAB PO SCH (08:23)
[2017-11-27] MEDS: INSULIN GLARGINE SOLOSTAR 100 UNITS/ML 3 ML PEN SC SCH ×2 (08:29→20:37)
[2017-11-27] MEDS: INSULIN ASPART 100 UNITS/ML 3 ML PEN SC SCH ×4 (08:32→20:37)
[2017-11-27] MEDS ORDERED: prednisoLONE SOD PHOS 5 MG/5 ML PO SCH (09:00)
[2017-11-27] MEDS ORDERED: CEPHALEXIN MONOHYDRATE 500 MG CAP PO ONE (13:30)
[2017-11-27] MEDS: HEPARIN 25,000 UNIT/500ML D5W 500 ML IV PRN (13:50)
--- NOTE | 2017-11-27 16:40 | Oncology Consultation ---
Oncology/Heme Consultation Date of Consultation: Nov 27, 2017. Attending Physician: Beto Driscoll D.O. Reason for Consultation: History of right leg DVT and underlying hypersplenism. History of Present Illness Mr. jeff cheng is a 62-year-old gentleman that was recently hospitalized with confusion related findings of abdominal wall cellulitis. He has a history of cirrhosis presumably on the basis of sarcoidosis (vs alcohol by prior notes). He has a very large abdominal wall hernia. He has been prone to ascites requiring drainage on several occasions over the past year. His describes having multiple surgeries at [facility] that she states were on his back. He was hospitalized recently been November 23 with findings of abdominal wall cellulitis and confusion. With his initial workup he was also found to have both on CT as well as ultrasound right common femoral DVT. He is now on heparin. He is alert and oriented. His is at his side. He states he has been fairly active at home. States he was having a fever at home. There apparently was some seepage from an abdominal wound on presentation but that has subsided. He states he is short of breath. He denies hemoptysis. He currently is on heparin. Past Medical/Surgical History Medical Problems: (1) Altered mental status Status: Acute (2) Ascites Status: Acute (3) Cellulitis of left abdominal wall Status: Acute (4) Dvt femoral (deep venous thrombosis) Status: Acute (5) Fall in home Status: Acute (6) Fever Status: Acute (7) GI bleed Status: Acute (8) Hepatic encephalopathy Status: Acute (9) Hypokalemia Status: Acute (10) Hypotension Status: Acute (11) Hypoxia Status: Acute (12) Immunocompromised Status: Acute (13) Lactic acidosis Status: Acute (14) Left leg cellulitis Status: Acute (15) Lumbar compression fracture Status: Acute (16) Lumbar disc herniation with radiculopathy Status: Acute (17) Orthostasis Status: Acute (18) Pneumonia Status: Acute (19) Sepsis Status: Acute (20) Severe sepsis Status: Acute (21) Tenosynovitis, de Quervain Status: Acute (22) Vomiting Status: Acute Family History Patient reports no known family medical history. Social History Smoking Status: Never Smoker Alcohol Use: Previous heavy drinker Drug Use: none Marital Status: Housing Status: lives with family Occupation Status: retired Allergies Coded Allergies: Celecoxib (Verified Allergy, Intermediate, HIVES, 05/02/17) Penicillins (Verified Allergy, Intermediate, HIVES, 05/02/17) Home Medications Scheduled Atorvastatin (Lipitor), 10 MG PO DAILY Cyclosporine (Ophth) (Restasis), 1 DROP OPB BID Fluoxetine (Prozac), 40 MG PO QAM Furosemide (Lasix), 40 MG PO BID Insulin Aspart (Novolog Penfill), SC AC Insulin Glargine (Lantus), 20 UNITS SC BID Lactulose (Chronulac), 30 ML PO BID Levalbuterol (Levalbuterol HCl), 1.25 MG INH TID Pantoprazole (Protonix), 40 MG PO QAM Potassium Ext Rel (Klor-Con), 20 MEQ PO BIDM Prednisone (Prednisone), 20 MG PO QAM Propranolol (Inderal), 10 MG PO DAILY Spironolactone (Spironolactone), 50 MG PO DAILY Scheduled PRN Acetaminophen (Tylenol), 500 MG PO Q4H PRN for Pain Albuterol Sulf (Albuterol Sulfate), 2.5 MG INH Q4H PRN for SOB/Wheezing Ondansetron Hcl (Zofran), 4 MG PO Q4 PRN for Nausea Oxycodone Ir (Roxicodone Ir), 5 MG PO Q4H PRN for Moderate Pain Current Inpatient Medications Current Inpatient Medications Medications (Trade) Dose Ordered Sig/Nathalia Route Start Time Stop Time Status Last Admin Dose Admin Acetaminophen (Tylenol Tab) 650 mg Q4H PRN PO 11/23/17 17:45 12/23/17 17:44 11/27/17 08:46 650 MG Al Hydrox/Mg Hydrox/Simethicone (Maalox Max Susp) 15 ml Q4H PRN PO 11/23/17 17:45 12/23/17 17:44 Magnesium Hydroxide (Milk Of Magnesia Susp) 30 ml Q12H PRN PO 11/23/17 17:45 12/23/17 17:44 Ondansetron HCl (Zofran Inj) 4 mg Q6H PRN IV 11/23/17 17:45 12/23/17 17:44 Polyethylene (Miralax Powder Packet) 17 gm DAILY PRN PO 11/23/17 17:45 12/23/17 17:44 Insulin Aspart (novoLOG ASPART) SLIDING SCALE If C... ACHS SC 11/23/17 21:00 12/23/17 20:59 11/27/17 12:25 8 UNITS Glucose (Glucose 40% Gel) 15-30 GRAMS 15 GRAMS... UD PRN PO 11/23/17 17:45 12/23/17 17:44 Glucose (Glucose Chew Tab) 4-8 Tablets 4 Tabl... UD PRN PO 11/23/17 17:45 12/23/17 17:44 Dextrose (Dextrose 50% 50ML Syringe) 25-50ML OF 50% DW IV FOR... UD PRN IV 11/23/17 17:45 12/23/17 17:44 Glucagon (Glucagon Inj) 1 mg UD PRN SQ 11/23/17 17:45 12/23/17 17:44 Albuterol Sulfate (Ventolin 0.083% 2.5MG/3ML Neb) 2.5 mg Q4H PRN INH 11/23/17 17:45 12/23/17 17:44 11/25/17 03:56 2.5 MG Atorvastatin Calcium (Lipitor Tab) 10 mg DAILY PO 11/24/17 09:00 12/24/17 08:59 11/27/17 08:22 10 MG Fluoxetine HCl (Prozac Cap) 40 mg QAM PO 11/24/17 09:00 12/24/17 08:59 11/27/17 08:22 40 MG Levalbuterol (Xopenex 1.25MG/ 3ML Neb) 1.25 mg TID INH 11/23/17 21:00 12/23/17 20:59 11/27/17 14:18 1.25 MG Ondansetron HCl (Zofran Tab) 4 mg Q4 PRN PO 11/23/17 17:45 12/23/17 17:44 Oxycodone HCl (Roxicodone Immediate Rel Tab) 5 mg Q4H PRN PO 11/23/17 17:45 12/07/17 17:44 11/26/17 14:39 5 MG Pantoprazole Sodium (Protonix Tab) 40 mg QAM PO 11/24/17 09:00 12/24/17 08:59 11/27/17 08:22 40 MG Propranolol HCl (Inderal Tab) 10 mg DAILY PO 11/24/17 09:00 12/24/17 08:59 11/27/17 08:23 10 MG Insulin Glargine (Lantus Solostar Pen) 20 units BID SC 11/23/17 21:00 12/23/17 20:59 11/27/17 08:29 20 UNITS Rifaximin (Xifaxan Tab) 550 mg BID PO 11/24/17 09:00 12/24/17 08:59 11/27/17 08:21 550 MG Heparin Sodium/ Dextrose 500 ml @ 11 mls/hr Q24H PRN IV 11/23/17 21:45 12/23/17 21:44 11/27/17 13:50 11 MLS/HR Spironolactone (Aldactone Tab) 100 mg QAM PO 11/27/17 09:00 12/27/17 08:59 11/27/17 08:23 100 MG Furosemide (Lasix Tab) 40 mg QAM PO 11/27/17 09:00 12/27/17 08:59 11/27/17 08:22 40 MG Lactulose (Chronulac Syrup) 30 gm BID PO 11/27/17 21:00 12/23/17 20:59 Prednisone (PredniSONE TAB) 20 mg DAILY PO 11/28/17 09:00 12/28/17 08:59 Cephalexin Monohydrate (Keflex Cap) 500 mg BID PO 11/27/17 21:00 12/07/17 20:59 Review of Systems Constitutional: Negative for night sweats Eyes: Negative for event change of vision ENT: Negative for epistaxis, nasal discharge, sore throat, or deafness Cardiovascular: Negative for chest pain, palpitations, dizziness, diaphoresis Respiratory: Negative for hemoptysis, or purulent cough Gastrointestinal: Negative for diarrhea, hematemesis, melena, nausea, vomiting , or dyspepsia Integumentary (skin): Negative for rash or jaundice discoloration Genitourinary: Negative for urinary frequency, hematuria, or dysuria Neurological: Negative for new weakness, seizure activity, headache, or dizziness Lymphatic/Hematologic: Negative for petechiae, bleeding or new adenopathy Musculoskeletal: Negative for new joint or back pain Allergic/Immunologic: Negative for unusual rash or pruritis. Physical Exam Date Time Temp Pulse Resp B/P (MAP) Pulse Ox O2 Delivery O2 Flow Rate FiO2 11/27/17 15:55 36.9 84 20 125/72 (89) 95 11/27/17 14:20 82 16 95 Room Air 11/27/17 11:34 36.7 70 18 142/86 (104) 95 Room Air 11/27/17 08:00 Room Air 11/27/17 07:28 72 16 98 Room Air 11/27/17 07:13 36.9 79 18 128/80 (96) 99 Room Air 11/27/17 04:00 Room Air BiPAP 11/27/17 03:57 36.5 75 18 125/76 (92) 97 BiPAP 11/27/17 00:00 Room Air BiPAP 11/26/17 23:06 36.3 75 18 146/73 (97) 99 BiPAP 11/26/17 22:11 69 95 21 11/26/17 20:00 Room Air BiPAP 11/26/17 19:51 36.6 62 18 151/73 (99) 98 Room Air 11/26/17 19:32 73 16 97 Room Air Constitutional: vitals are stable. Eyes: Eyes are JUSTYN EOMI without conjuctival erythema or icterus. ENT: External examination was negative for masses. Neck: Negative for masses or palpable thyromegaly Respiratory: Lung sounds were generally clear bilaterally Cardiovascular: Heart was RRR without significant murmur, gallops aoe rubs Gastrointestinal: No palpable hepatic or splenomegaly. The abdomen demonstrates a large ventral hernia with underlying ascites. There is an erythema tint to the skin overkying the abdomen particularlay on the left flank. Lymphatic system: there was no palpable peripheral lymphadenopathy Musculoskeletal System: The musculoskeletal system seemed concordant with age. Skin: The skin was negative for jaundice. Ecchymosis over in volving right arm. Neurologic exam: The exam was negative for any focal findings. Deep tendon reflexes were equal and symmetrical. Psychiatric exam: Was essentially negative with normal mood and effect. Extremities: negative for edema or tenderness Laboratory Results Last 24 Hours Test 11/26/17 20:05 11/27/17 05:30 11/27/17 07:42 11/27/17 11:32 Bedside Glucose 235 mg/dl 114 mg/dl 195 mg/dl White Blood Count 5.76 K/uL Red Blood Count 3.23 M/uL Hemoglobin 8.7 g/dL Hematocrit 27.3 % Mean Corpuscular Volume 84.5 fL Mean Corpuscular Hemoglobin 26.9 pg Mean Corpuscular Hemoglobin Concent 31.9 g/dl RDW Standard Deviation 56.9 fL RDW Coefficient of Variation 18.3 % Platelet Count 77 K/uL Platelet Estimate DECREASED Activated Partial Thromboplast Time 51.1 SECONDS Partial Thromboplastin Ratio 2.0 Sodium Level 137 mmol/L Potassium Level 4.4 mmol/L Chloride Level 105 mmol/L Carbon Dioxide Level 26 mmol/L Anion Gap 6.0 mmol/L Blood Urea Nitrogen 28 mg/dl Creatinine 1.50 mg/dl Est Creatinine Clear Calc Drug Dose 52.0 ml/min Estimated GFR () 56.2 Estimated GFR (Non- 48.5 BUN/Creatinine Ratio 18.6 Random Glucose 145 mg/dl Calcium Level 8.1 mg/dl Total Bilirubin 0.9 mg/dl Aspartate Amino Transf (AST/SGOT) 36 U/L Alanine Aminotransferase (ALT/SGPT) 26 U/L Alkaline Phosphatase 234 U/L Total Protein 5.5 gm/dl Albumin 2.0 gm/dl Globulin 3.5 gm/dl Albumin/Globulin Ratio 0.6 Assessment & Plan DVT found in the right common femoral area. Cirrhosis with resultant hypersplenism. Baseline INR 1.1 and platele numbers fluctuate between 75-100K. creatinine 1.5 (GFR adequate) He currently is on heparin and would agree with that. If surgery is planned for his abdomen (or needed elsewhere) then an IVC filter will need to be placed. Would go on with heparin for now until the surgical decision is sorted through. If no surgery is planned then he can be then converted to once a day low molecular weight heparin (1.5 mg/kg/day Lovenox) with a consultation to the coagulation clinic for follow-up. Would anticipate anticoagulation of a 3 month duration.
[2017-11-27] MEDS ORDERED: CEFTRIAXONE SOD INJ 2000 MG in DEXTROSE 5% 50ML IV SCH (18:00)
[2017-11-27] MEDS: CEPHALEXIN MONOHYDRATE 500 MG CAP PO SCH (20:38)
--- NOTE | 2017-11-27 20:52 | GASTROINTESTINAL CONSULTATION ---
DATE OF CONSULTATION: 11/27/2017 CHIEF COMPLAINT: Ascites, shortness of breath, sarcoid induced chronic liver disease, new onset right lower extremity DVT, and suspected abdominal wall cellulitis. HISTORY OF PRESENT ILLNESS: Mr. Santiago is known to me from previous hospitalizations. He is a 62-year-old male with a history of the above-stated problems [facility] of breath, increased abdominal girth, mental status changes and weeping of liquid at prior paracentesis site. The patient is on suppressive Keflex. The patient also had development from his last surgery of an inguinal hernia and abdominal wall hernia that is likely fluid filled with ascites. PAST MEDICAL HISTORY: Includes sarcoidosis, alcohol use, chronic liver disease, back surgery, cellulitis, and abdominal wall hernia repair. FAMILY HISTORY: Noncontributory. SOCIAL HISTORY: The patient denies tobacco usage and had used alcoholic beverages in the past, although does not use now. He is . ALLERGIES: CELEBREX, AND PENICILLINS. HOME MEDICATIONS: Include Lipitor, Restasis, fluoxetine, Lasix, insulin, lactulose, levalbuterol, pantoprazole, potassium, prednisone for his sarcoid, propranolol 10 mg daily, and Aldactone 50 mg daily. REVIEW OF SYSTEMS: Otherwise noncontributory based on 13-point exam except for mentioned above. There is no hematemesis, coffee-ground emesis, melena or bright red blood per rectum. At the present time, he is much more lucid and is awake, alert and oriented x3, although knows that when he presented to the Emergency Room, he was clearly more confused. PHYSICAL EXAMINATION: VITAL SIGNS: Today, the patient's blood pressure 125/72, pulse ox 95, heart rate 84, afebrile 36.9, and 95% on room air. GENERAL: The patient is awake, alert and oriented x3. HEENT: Sclerae are anicteric, conjunctivae is moist. Oral mucosa moist. NECK: Normal range of motion in the neck. There is no cervical or supraclavicular adenopathy. I do not appreciate thyromegaly. HEART: Normal S1, S2. LUNGS: Clear to auscultation without rales, rhonchi or wheezes. The patient is comfortable at rest, lying in bed. ABDOMEN: Distended with ascites. There is no shifting dullness. It is firm, but not overly tense. There is no rebound or guarding. There is no focal tenderness. There is a sizable softball size lower left abdominal wall hernia, in the pelvic region. EXTREMITIES: Without clubbing, cyanosis or edema. Normal range of motion in extremities. RECTAL: Deferred. LABORATORY STUDIES: Include a BUN and creatinine of 20 and 1.5, blood sugars in the 190-200 range. Hemoglobin is 8.7 today, which is essentially stable since admission; white count of 5.76, platelets are 77,000 today and generally around 110. CURRENT MEDICATIONS: In the hospital include prednisone, lactulose, Keflex, spironolactone, Lasix, atorvastatin, fluoxetine, propranolol, Xifaxan, heparin, levalbuterol and insulin. IMAGING STUDIES: Show evidence of a right lower extremity DVT. CT scan on admission revealed interval development of compression fracture, moderate ascites with increased herniation in the left retroperitoneum, left anterior abdominal wall musculature, and left anterior subcutaneous tissue, features of cirrhosis and portal hypertension with splenomegaly noted. Head CT on admission - no acute intracranial findings. IMPRESSION: Mr. Santiago is a 62-year-old male with portal hypertension and cirrhosis, presumably due to sarcoid as well as chronic alcohol use. The patient is on chronic prednisone. He has had challenges in managing his ascites with diuretics alone and has required paracentesis at times for control of respiratory function. Although, the patient is currently comfortable in bed, I believe that he still has some baseline respiratory deficiency and certainly any ambulation or activity would make him more increasingly short of breath. The patient is on a heparin drip for his deep venous thrombosis. Based on the above findings, I believe it is reasonable to consider paracentesis with albumin replacement. If tolerated, diuretic therapy, perhaps can be a slightly increased. However, renal function needs to be closely monitored. He should be on a no more than 2 gram sodium diet, and restrict his oral fluids to approximately 2 liters, if achievable. Would continue the current antibiotics for the presumed cellulitis on his abdominal wall, some of this may be chronic stasis changes on the abdominal wall due to his ascites. By the patient's report, however, this actually has gotten better with the IV antibiotics that were prescribed here. Would also continue on his Xifaxan and lactulose and aim for 3 pasty bowel movements daily. We will continue to follow with you. Dr. Rubio is covering the service for the next few days. AMBIKA
[2017-11-27] MEDS: ALBUTEROL 0.083% NEBU SOLN 3 ML VIAL INH PRN (22:13)
[2017-11-28] VITALS (7 sets, daily range): BP systolic 117–147; BP diastolic 73–83; PULSE 68–89; TEMP 36.6–36.9; O2SAT 91–98
[2017-11-28] MEDS: ACETAMINOPHEN 325 MG TAB PO PRN ×2 (00:41→23:42)
[2017-11-28] MEDS: LEVALBUTEROL 1.25MG/3ML NEB INH SCH ×3 (07:34→20:32)
[2017-11-28 07:36] LABS: HEMATOCRIT 28.6 % (42-52); HEMOGLOBIN 9.2 g/dL (14.0-18.0); MEAN CELL VOLUME 84.4 fL (80-100); MEAN CORPUSCULAR HEMOGLOBIN 27.1 pg (25-34); MEAN CORPUSCULAR HGB CONC 32.2 g/dl (32-36); RED CELL DISTRIBUTION WIDTH CV 18.7 % (11.5-14.5); RED CELL DISTRIBUTION WIDTH SD 57.3 fL (36.4-46.3)
[2017-11-28 07:52] LABS: MEAN PLATELET VOLUME 9.6 fL (7.4-10.4); PLATELET COUNT 99 K/uL (130-400)
[2017-11-28 09:00] LABS: CALCIUM 8.6 mg/dl (8.5-10.1); CREATININE 1.39 mg/dl (0.60-1.40); POTASSIUM 4.1 mmol/L (3.5-5.1)
[2017-11-28] MEDS: LACTULOSE SYRUP 30 GM/45 ML UDP PO SCH ×3 (09:00→20:58)
[2017-11-28] MEDS: PROPRANOLOL HCL 10 MG TAB PO SCH (09:09)
[2017-11-28] MEDS: PANTOprazole SOD 40 MG TAB PO SCH (09:09)
[2017-11-28] MEDS: FUROSEMIDE 40 MG TAB PO SCH (09:10)
[2017-11-28] MEDS: FLUOXETINE HCL 20 MG CAP PO SCH (09:10)
[2017-11-28] MEDS: CEPHALEXIN MONOHYDRATE 500 MG CAP PO SCH ×2 (09:11→20:58)
[2017-11-28] MEDS: ATORVASTATIN 10 MG TAB PO SCH (09:11)
[2017-11-28] MEDS: RIFAXIMIN TAB 550 MG TAB PO SCH ×2 (09:11→20:58)
[2017-11-28] MEDS: SPIRONOLACTONE 100 MG TAB PO SCH (09:12)
[2017-11-28] MEDS: INSULIN GLARGINE SOLOSTAR 100 UNITS/ML 3 ML PEN SC SCH ×2 (09:16→21:03)
[2017-11-28] MEDS: INSULIN ASPART 100 UNITS/ML 3 ML PEN SC SCH ×4 (09:16→20:59)
--- NOTE | 2017-11-28 11:30 | Hematology/Oncology Prog Note ---
Hematology/Onc Progress Note Date of Service Nov 28, 2017. Diagnoses Right lower extremity DVT Hepatic encephalopathy by history Cirrhosis and refractory ascites Abdominal wall cellulitis Medications Medications Administered Medications (Trade) Dose Ordered Sig/Nathalia Route Start Time Stop Time Status Last Admin Dose Admin Sodium Chloride 1,000 ml @ 999 mls/hr Q1H1M STAT IV 11/23/17 15:51 11/23/17 16:51 DC 11/23/17 15:51 999 MLS/HR Sodium Chloride 1,000 ml @ 75 mls/hr [id number] IV 11/23/17 17:31 11/24/17 20:10 DC 11/24/17 09:10 75 MLS/HR Acetaminophen (Tylenol Tab) 650 mg Q4H PRN PO 11/23/17 17:45 12/23/17 17:44 11/28/17 00:41 650 MG Insulin Aspart (novoLOG ASPART) SLIDING SCALE If C... ACHS SC 11/23/17 21:00 12/23/17 20:59 11/28/17 09:16 4 UNITS Albuterol Sulfate (Ventolin 0.083% 2.5MG/3ML Neb) 2.5 mg Q4H PRN INH 11/23/17 17:45 12/23/17 17:44 11/27/17 22:13 2.5 MG Atorvastatin Calcium (Lipitor Tab) 10 mg DAILY PO 11/24/17 09:00 12/24/17 08:59 11/28/17 09:11 10 MG Fluoxetine HCl (Prozac Cap) 40 mg QAM PO 11/24/17 09:00 12/24/17 08:59 11/28/17 09:10 40 MG Levalbuterol (Xopenex 1.25MG/ 3ML Neb) 1.25 mg TID INH 11/23/17 21:00 12/23/17 20:59 11/28/17 07:34 1.25 MG Oxycodone HCl (Roxicodone Immediate Rel Tab) 5 mg Q4H PRN PO 11/23/17 17:45 12/07/17 17:44 11/26/17 14:39 5 MG Pantoprazole Sodium (Protonix Tab) 40 mg QAM PO 11/24/17 09:00 12/24/17 08:59 11/28/17 09:09 40 MG Prednisone (PredniSONE TAB) 20 mg QAM PO 11/24/17 09:00 11/25/17 21:00 DC 11/25/17 07:55 20 MG Propranolol HCl (Inderal Tab) 10 mg DAILY PO 11/24/17 09:00 12/24/17 08:59 11/28/17 09:09 10 MG Spironolactone (Aldactone Tab) 50 mg DAILY PO 11/24/17 09:00 11/26/17 16:00 DC 11/26/17 08:29 50 MG Vancomycin HCl 1000 mg/Sodium Chloride 270 ml @ 125 mls/hr Q24H IV 11/24/17 21:00 11/26/17 11:33 DC 11/25/17 20:14 125 MLS/HR Ceftriaxone Sodium 1 gm/ Dextrose 50 ml @ 100 mls/hr Q24H IV 11/23/17 18:45 11/27/17 10:41 DC 11/26/17 18:33 100 MLS/HR Insulin Glargine (Lantus Solostar Pen) 20 units BID SC 11/23/17 21:00 12/23/17 20:59 11/28/17 09:16 20 UNITS Vancomycin HCl 1750 mg/Sodium Chloride 535 ml @ 200 mls/hr ONE ONCE IV 11/23/17 21:15 11/23/17 23:55 DC 11/23/17 21:48 200 MLS/HR Lactulose (Chronulac Syrup) 30 gm Q6H PO 11/24/17 03:00 11/27/17 09:02 DC 11/27/17 08:23 30 GM Rifaximin (Xifaxan Tab) 550 mg BID PO 11/24/17 09:00 12/24/17 08:59 11/28/17 09:11 550 MG Heparin Sodium/ Dextrose 500 ml @ 11 mls/hr Q24H PRN IV 11/23/17 21:45 12/23/17 21:44 Future Hold 11/27/17 13:50 11 MLS/HR Heparin Sodium (Porcine) 4000 unit/Syringe 4 ml @ 10 mls/min NOW ONCE IV 11/23/17 22:00 11/23/17 22:01 DC 11/23/17 22:10 10 MLS/MIN Heparin Sodium (Porcine) 4500 unit/Syringe 4.5 ml @ 10 mls/min NOW ONCE IV 11/24/17 22:00 11/24/17 22:01 DC 11/24/17 22:30 10 MLS/MIN Prednisone (PredniSONE TAB) 20 mg DAILY PO 11/26/17 09:00 11/26/17 21:14 DC 11/26/17 08:29 20 MG Furosemide 20 mg/ Syringe 2 ml @ 4 mls/min ONE STAT IV 11/25/17 21:10 11/25/17 21:11 DC 11/25/17 21:23 4 MLS/MIN Spironolactone (Aldactone Tab) 50 mg NOW ONCE PO 11/25/17 21:00 11/25/17 21:10 DC 11/25/17 21:23 50 MG Vancomycin HCl 1250 mg/Sodium Chloride 275 ml @ 125 mls/hr Q24H IV 11/26/17 12:00 11/27/17 10:37 DC 11/26/17 12:29 125 MLS/HR Spironolactone (Aldactone Tab) 100 mg QAM PO 11/27/17 09:00 12/27/17 08:59 11/28/17 09:12 100 MG Spironolactone (Aldactone Tab) 50 mg NOW ONCE PO 11/26/17 16:15 11/26/17 16:16 DC 11/26/17 17:24 50 MG Furosemide (Lasix Tab) 40 mg QAM PO 11/27/17 09:00 12/27/17 08:59 11/28/17 09:10 40 MG Furosemide (Lasix Tab) 40 mg NOW ONCE PO 11/26/17 16:15 11/26/17 16:16 DC 11/26/17 17:24 40 MG Prednisolone Sodium Phosphate (Pediapred Oral Soln) 20 mg DAILY PO 11/27/17 09:00 11/27/17 10:58 DC 11/27/17 08:37 20 MG Prednisone (PredniSONE TAB) 20 mg DAILY PO 11/28/17 09:00 12/28/17 08:59 11/28/17 09:11 20 MG Cephalexin Monohydrate (Keflex Cap) 500 mg BID PO 11/27/17 21:00 12/07/17 20:59 11/28/17 09:11 500 MG Cephalexin Monohydrate (Keflex Cap) 500 mg 1330 ONCE PO 11/27/17 13:30 11/27/17 13:31 DC 11/27/17 13:50 500 MG Subjective He denies shortness of breath. He denies any chest pain. Denies hemoptysis. He states his abdomen around the ventral hernia in particular is becoming more tender. He has been afebrile. Review of Systems: Constitutional: Negative for weight loss, night sweats, or fever Eyes: Negative for event change of vision ENT: Negative for epistaxis, nasal discharge, sore throat, or deafness Cardiovascular: Negative for chest pain, palpitations, dizziness, diaphoresis Respiratory: Negative for new shortness of breath,hemoptysis, or purulent cough Gastrointestinal: Negative for diarrhea, hematemesis, melena, nausea, vomiting , or dyspepsia Integumentary (skin): Negative for rash or jaundice discoloration Neurological: Negative for weakness, seizure activity, headache, or dizziness Lymphatic/Hematologic: Negative for petechiae, bleeding or new adenopathy Musculoskeletal: Negative for new joint or back pain Allergic/Immunologic: Negative for unusual rash or pruritis. Vital Signs Vital Signs Past 12 Hours Date Time Temp Pulse Resp B/P (MAP) Pulse Ox O2 Delivery O2 Flow Rate FiO2 11/28/17 08:00 Room Air 11/28/17 07:36 73 16 98 Room Air 11/28/17 07:35 36.7 72 17 147/83 (104) 98 Room Air 11/28/17 00:45 36.6 74 20 117/73 (88) 94 BiPAP 11/28/17 00:00 Room Air Physical Exam Constitutional: vitals are stable. Eyes: Eyes are JUSTYN EOMI without conjuctival erythema or icterus. ENT: External examination was negative for masses. Neck: Negative for masses or palpable thyromegaly Respiratory: Lung sounds were generally clear bilaterally Cardiovascular: Heart was RRR without significant murmur, gallops aoe rubs Gastrointestinal: Mildly tender and erythematous abdominal wall particularly in the left lower quadrant of the abdomen and in an area of large ventral hernia. There is evidence of ascites. Lymphatic system: there was no palpable peripheral lymphadenopathy Musculoskeletal System: The musculoskeletal system seemed concordant with age. Skin: The skin was negative for jaundice. Neurologic exam: The exam was negative for any focal findings. Deep tendon reflexes were equal and symmetrical. Psychiatric exam: Was essentially negative with normal mood and effect. Extremities: negative for edema or tenderness Laboratory Last 24 Hours Test 11/27/17 11:32 11/27/17 16:30 11/27/17 20:05 11/28/17 07:11 Bedside Glucose 195 mg/dl 207 mg/dl 194 mg/dl White Blood Count 7.40 K/uL Red Blood Count 3.39 M/uL Hemoglobin 9.2 g/dL Hematocrit 28.6 % Mean Corpuscular Volume 84.4 fL Mean Corpuscular Hemoglobin 27.1 pg Mean Corpuscular Hemoglobin Concent 32.2 g/dl RDW Standard Deviation 57.3 fL RDW Coefficient of Variation 18.7 % Platelet Count 99 K/uL Mean Platelet Volume 9.6 fL Activated Partial Thromboplast Time 50.0 SECONDS Partial Thromboplastin Ratio 1.9 Sodium Level 136 mmol/L Potassium Level 4.1 mmol/L Chloride Level 104 mmol/L Carbon Dioxide Level 25 mmol/L Anion Gap 7.0 mmol/L Blood Urea Nitrogen 29 mg/dl Creatinine 1.39 mg/dl Est Creatinine Clear Calc Drug Dose 56.1 ml/min Estimated GFR () 61.6 Estimated GFR (Non- 53.2 BUN/Creatinine Ratio 20.6 Random Glucose 83 mg/dl Calcium Level 8.6 mg/dl Test 11/28/17 07:19 Bedside Glucose 82 mg/dl Assessment & Plan Right lower extremity DVT in the setting of hepatic failure. As stated yesterday if there are no plans to have any surgeries then switch to once a day Lovenox (1.5 mg/kg) for 3 months duration seems reasonable. However if surgery is planned then an IVC filter would be necessary in place of systemic therapy. If in fact he is placed on low molecular weight heparin then please consult anticoagulation clinic going forward to timo as outpatient. His blood counts are stable. Platelet count of 99,000. There is been no overt bleeding. For now we will sign off as a service. Please do not hesitate to reconsult us if necessary.
[2017-11-28] MEDS: OXYCODONE HCL IR 5 MG TAB (IMMEDIATE RELEASE) PO PRN (11:37)
--- NOTE | 2017-11-28 12:28 | PROGRESS NOTE ---
DATE: 11/28/2017 SUBJECTIVE: The patient is mild mildly short of breath when lying on his back. He does have a lot of ascites and he is scheduled for a paracentesis later this afternoon followed by an albumin infusion. OBJECTIVE: VITAL SIGNS: Show blood pressure is 147/83, pulse 72, temperature is 36.7. LABORATORY: Show BUN of 29, creatinine 1.39. Sodium, potassium, chloride, all normal. 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 He will get a therapeutic paracentesis later today under ultrasound guidance and radiology, followed by an albumin infusion, which should hopefully allow him to breathe easier and be more comfortable. We will continue to follow the patient during his hospital stay.
--- NOTE | 2017-11-28 13:40 | Surgery Consultation ---
Consultation Date of Service Nov 28, 2017. (Katherine Kelly, KEO) Chief Complaint RLE DVT, possible IVC filter insertion (Katherine Kelly, KEO) History of Present Illness The patient is a 62 year old male with complicated medical hx, including multiple spine fractures and surgeries, lumbar spinal abscess and meningitis, sarcoidosis on chronic steroids, DMII, cirrhotic liver failure with ascites, admitted and found to have RLE DVT, seen in consultation today for possible IVC filter insertion. Pt remains on heparin with plans to start chronic anticoagulation. No hx of DVT/PE in past per pt. Activity level has been significantly decreased over past 1 year d/t spinal surgeries and infections. Pt admits fatigue/malaise presently, and states he would prefer to have the IVC filter so that he doesn't "have to take another pill every day." Pt denies GIRARD, fever, chills, chest pain, SOB, abd pain, N/V, rest pain, claudication, other complaints. Pt is scheduled for paracentesis later today, but no other surgical procedures are definitely planned per pt. (Katherine Kelly, KRISTENC) Vitals Vital Signs Past 12 Hours Date Time Temp Pulse Resp B/P (MAP) Pulse Ox O2 Delivery O2 Flow Rate FiO2 11/28/17 08:00 Room Air 11/28/17 07:36 73 16 98 Room Air 11/28/17 07:35 36.7 72 17 147/83 (104) 98 Room Air (Katherine Kelly, KRISTENC) Allergies Coded Allergies: Celecoxib (Verified Allergy, Intermediate, HIVES, 05/02/17) Penicillins (Verified Allergy, Intermediate, HIVES, 05/02/17) Home Medications Scheduled Atorvastatin (Lipitor), 10 MG PO DAILY Cyclosporine (Ophth) (Restasis), 1 DROP OPB BID Fluoxetine (Prozac), 40 MG PO QAM Furosemide (Lasix), 40 MG PO BID Insulin Aspart (Novolog Penfill), SC AC Insulin Glargine (Lantus), 20 UNITS SC BID Lactulose (Chronulac), 30 ML PO BID Levalbuterol (Levalbuterol HCl), 1.25 MG INH TID Pantoprazole (Protonix), 40 MG PO QAM Potassium Ext Rel (Klor-Con), 20 MEQ PO BIDM Prednisone (Prednisone), 20 MG PO QAM Propranolol (Inderal), 10 MG PO DAILY Spironolactone (Spironolactone), 50 MG PO DAILY Scheduled PRN Acetaminophen (Tylenol), 500 MG PO Q4H PRN for Pain Albuterol Sulf (Albuterol Sulfate), 2.5 MG INH Q4H PRN for SOB/Wheezing Ondansetron Hcl (Zofran), 4 MG PO Q4 PRN for Nausea Oxycodone Ir (Roxicodone Ir), 5 MG PO Q4H PRN for Moderate Pain Problem List Medical Problems: (1) Abscess in epidural space of lumbar spine (2) ACUTE RESP.FAIL.,SARCOIDOSIS (3) Anemia (4) Asthma (5) Diabetic autonomic neuropathy (6) Fungemia (7) GERD (gastroesophageal reflux disease) (8) gi bleed, ? sepsis (9) gi bleed, ?sepsis (10) Gram negative septicemia (11) HEPATIC ENCEPHALOPATHY. SARCOIDOSIS. DM2,POST LUMBAR DISC SURGERY (12) HERNIATED L4-L5 DISC (13) Hyperlipidemia (14) Hypertension (15) Infection of lumbar spine (16) Kidney stone (17) Lumbar stenosis with neurogenic claudication (18) Meningitis (19) MSC,SEVERE HYPO K, LUMBAR SPINE ABCESS,MALNUTRITION, CIRRHOSIS (20) MSC. FEVER.,?MENINGITIS,DM2,SARCOIDOSIS,SLEEP APNEA (21) Obesity (22) Post op infection (23) Sarcoidosis (24) Septal defect (25) SEVERE CELLULITIS L LEG,SEPSIS SYNDROME (26) Sleep apnea (27) Thrombocytopenia (Katherine Kelly, KRISTENC) Surgical / Medical History Hx Cardiac Surgery: Yes (Cardiac cath, septal defect repair) Hx Abdominal Surgery: Yes (hernia) Hx Cancer Surgery: No Hx Thoracic Surgery: No Hx Orthopedic: Yes (7 back surgeries, shoulder) Hx Urinary Tract Surgery: No Past Medical/Surgical History: Diabetes, Heart Disease, Hypertension, Kidney Disease, Liver Disease (Katherine Kelly, KRISTENC) Family History Patient reports no known family medical history. (Katherine Kelly, KRISTENC) Patient reports no known family medical history. (Brant Najera M.D.) Social History Smoking Status: Never Smoker Hx Tobacco Use In Past Year?: No Hx Alcohol Use - Type & Amnt: No Hx Substance Use -Type & Amnt: No (Katherine Kelly, KRISTENC) Review of Systems Constitutional: + malaise, No chills, No fever Skin: No change in color Eyes: No visual changes ENMT: No sore throat Respiratory: No cough, No [place], No hemoptysis, No short of breath Cardiovascular: + edema (BLE, chronic), No chest pain, No palpitations, No intermittent claudication Gastrointestinal: + problem reported (hernia), No abdominal pain, No nausea Neurologic: No dizziness, No lethargy, No numbness, No tingling (Katherine Kelly, KRISTENC) Physical Exam Constitutional: General Apperance: well-nourished, well-developed, obese (cain facies) Level of Distress: NAD, chronically ill Psychiatric: Mental Status: active & alert, normal mood, normal affect Orientation: oriented except where noted, to time, to place, to person Memory: recent memory normal, remote memory normal Head: normocephalic, atraumatic Eyes: EOM: EOMI ENMT: normal ENT inspection, hearing grossly normal Neck: supple, trachea midline Lungs: Respiratory effort: no dyspnea Auscultation: no rales/crackles, no rhonchi, decreased breath sounds Cardiovascular: Apical Impulse: not displaced Heart Auscultation: RRR, no rubs, no gallops Peripheral Pulses: Pulses: full and equal, in all extremities except if noted Bruits: none appreciated Carotid Pulse: normal on the left, normal on the right Brachial Pulses: normal on the left, normal on the right Radial Pulse: normal on the left, normal on the right Femoral Pulse: normal on the left, normal on the right Posterior Tibialis Pulse: decreased on the left, decreased on the right Dorsalis Pedis Pulse: decreased on the left, decreased on the right Abdomen: Bowel Sounds: normal Inspection & Palpation: soft, no tenderness, guarding & rebound, distended, masses (L sided large hernia) Hernia: pertinent finding (L sided) Extremities: Upper Right: no cyanosis, no edema, no varicosities Upper Left: no cyanosis, no edema Lower Right: no cyanosis, no varicosities, no palpable cord, edema Lower Left: no cyanosis, no varicosities, edema Neurologic: Cranial Nerves: grossly intact Sensation: grossly intact (Katherine Kelly, PA-C) Assessment and Plan ASSESSMENT and PLAN: RLE DVT Liver failure Pt without severe thrombocytopenia or active bleeding at this time. Pt discussed at length with Dr Najera, does not recommend IVC filter insertion at this time. If anticoagulation needs to be interrupted for surgery, could consider IVC filter insertion pre operatively for PE protection. Discussed with pt. Please call if needed. (Katherine Kelly, PA-C) Agree with exam and treatment plan of the Vascular PA. Would not place a filter unless surgery is planned and he needs to be off heparin, contraindication for anticoagulation, or failure of anticoagulation treatment. Thank you very much for letting me participate in the care of this patient. (Brant Najera M.D.)
--- NOTE | 2017-11-28 14:40 | DIAGNOSTIC IMAGING REPORT ---
PARACENTESIS UNDER ULTRASOUND GUIDANCE CLINICAL HISTORY: Abdominal ascites. PROCEDURE: The risks, benefits, and alternatives to the procedure were discussed with the patient who voiced understanding. Written informed consent was obtained. Following real-time ultrasound localization of a suitable pocket of fluid in the left lower quadrant, the abdomen was prepped and draped in the usual sterile fashion. The skin and soft tissues were anesthetized with 1% lidocaine. The sheathed paracentesis was inserted and approximately 3.8 liters of tameka colored ascitic fluid was removed by vacuum suction. The procedure was well tolerated and without immediate complication. The patient left the department in satisfactory condition. IMPRESSION: Successful ultrasound-guided paracentesis with removal of approximately 3.8 liters of ascitic fluid. Electronically signed by: Gianni Hewitt M.D. 11/28/2017 2:39 PM Dictated Date/Time: 11/28/2017 2:38 PM
[2017-11-28] MEDS ORDERED: ALBUMIN HUMAN 25% 12.5 GM/50 ML VIAL IV SCH (15:00)
[2017-11-28] MEDS ORDERED: ENOXAPARIN 150 MG/1ML SYR SQ ONE (15:00)
--- NOTE | 2017-11-28 15:03 | Hospitalist Progress Note ---
Hospitalist Progress Note Date of Service Nov 28, 2017. Subjective Pt evaluation today including: conversation w/ patient, physical exam, chart review, lab review, review of studies, review of inpatient medication list Patient seen and evaluated. No acute events overnight. Was a little encephalopathic on exam today. Stating he mind was playing tricks on him as he thought there was a dog in his bed. Has intermittently refused Lactulose and his mentation improved throughout the day. reporting he normally acts this way when first waking up. Discussed risk/benefits of IVC filter vs anticoagulation. As suspected only need for coverage x 3 months that anticoagulation would be the better approach unless surgical intervention is warranted then a temporary IVC filter could be considered. Will continue to discuss with patient. He had therapeutic paracentesis today for 4.8 L and will f/u with albumin. Will stop heparin and institute Lovenox Constitutional: No fever, No chills Respiratory: No cough, No shortness of breath Cardiovascular: No chest pain Abdomen: No pain, No nausea, No vomiting, No GI bleeding Musculoskeletal: + problem reported (back pain) Medications Current Inpatient Medications Medications (Trade) Dose Ordered Sig/Nathalia Route Start Time Stop Time Status Last Admin Dose Admin Acetaminophen (Tylenol Tab) 650 mg Q4H PRN PO 11/23/17 17:45 12/23/17 17:44 11/28/17 00:41 650 MG Al Hydrox/Mg Hydrox/Simethicone (Maalox Max Susp) 15 ml Q4H PRN PO 11/23/17 17:45 12/23/17 17:44 Magnesium Hydroxide (Milk Of Magnesia Susp) 30 ml Q12H PRN PO 11/23/17 17:45 12/23/17 17:44 Ondansetron HCl (Zofran Inj) 4 mg Q6H PRN IV 11/23/17 17:45 12/23/17 17:44 Polyethylene (Miralax Powder Packet) 17 gm DAILY PRN PO 11/23/17 17:45 12/23/17 17:44 Insulin Aspart (novoLOG ASPART) SLIDING SCALE If C... ACHS SC 11/23/17 21:00 12/23/17 20:59 11/28/17 09:16 4 UNITS Glucose (Glucose 40% Gel) 15-30 GRAMS 15 GRAMS... UD PRN PO 11/23/17 17:45 12/23/17 17:44 Glucose (Glucose Chew Tab) 4-8 Tablets 4 Tabl... UD PRN PO 11/23/17 17:45 12/23/17 17:44 Dextrose (Dextrose 50% 50ML Syringe) 25-50ML OF 50% DW IV FOR... UD PRN IV 11/23/17 17:45 12/23/17 17:44 Glucagon (Glucagon Inj) 1 mg UD PRN SQ 11/23/17 17:45 12/23/17 17:44 Albuterol Sulfate (Ventolin 0.083% 2.5MG/3ML Neb) 2.5 mg Q4H PRN INH 11/23/17 17:45 12/23/17 17:44 11/27/17 22:13 2.5 MG Atorvastatin Calcium (Lipitor Tab) 10 mg DAILY PO 11/24/17 09:00 12/24/17 08:59 11/28/17 09:11 10 MG Fluoxetine HCl (Prozac Cap) 40 mg QAM PO 11/24/17 09:00 12/24/17 08:59 11/28/17 09:10 40 MG Levalbuterol (Xopenex 1.25MG/ 3ML Neb) 1.25 mg TID INH 11/23/17 21:00 12/23/17 20:59 11/28/17 07:34 1.25 MG Ondansetron HCl (Zofran Tab) 4 mg Q4 PRN PO 11/23/17 17:45 12/23/17 17:44 Oxycodone HCl (Roxicodone Immediate Rel Tab) 5 mg Q4H PRN PO 11/23/17 17:45 12/07/17 17:44 11/28/17 11:37 5 MG Pantoprazole Sodium (Protonix Tab) 40 mg QAM PO 11/24/17 09:00 12/24/17 08:59 11/28/17 09:09 40 MG Propranolol HCl (Inderal Tab) 10 mg DAILY PO 11/24/17 09:00 12/24/17 08:59 11/28/17 09:09 10 MG Insulin Glargine (Lantus Solostar Pen) 20 units BID SC 11/23/17 21:00 2/3/18 20:59 11/28/17 09:16 20 UNITS Rifaximin (Xifaxan Tab) 550 mg BID PO 11/24/17 09:00 12/24/17 08:59 11/28/17 09:11 550 MG Spironolactone (Aldactone Tab) 100 mg QAM PO 11/27/17 09:00 12/27/17 08:59 11/28/17 09:12 100 MG Furosemide (Lasix Tab) 40 mg QAM PO 11/27/17 09:00 12/27/17 08:59 11/28/17 09:10 40 MG Lactulose (Chronulac Syrup) 30 gm BID PO 11/27/17 21:00 12/23/17 20:59 11/28/17 11:36 30 GM Prednisone (PredniSONE TAB) 20 mg DAILY PO 11/28/17 09:00 12/28/17 08:59 11/28/17 09:11 20 MG Cephalexin Monohydrate (Keflex Cap) 500 mg BID PO 11/27/17 21:00 12/07/17 20:59 11/28/17 09:11 500 MG Enoxaparin Sodium (Lovenox Inj) 129 mg DAILY SQ 11/29/17 11:00 12/29/17 10:59 Enoxaparin Sodium (Lovenox Inj) 129 mg 1500 ONCE SQ 11/28/17 15:00 11/28/17 15:01 Objective Vital Signs Date Time Temp Pulse Resp B/P (MAP) Pulse Ox O2 Delivery O2 Flow Rate FiO2 11/28/17 14:32 36.9 68 18 138/74 (95) 94 11/28/17 08:00 Room Air 11/28/17 07:36 73 16 98 Room Air 11/28/17 07:35 36.7 72 17 147/83 (104) 98 Room Air 11/28/17 00:45 36.6 74 20 117/73 (88) 94 BiPAP 11/28/17 00:00 Room Air 11/27/17 22:14 86 95 21 11/27/17 22:13 86 16 95 Room Air 11/27/17 20:00 Room Air 11/27/17 19:23 83 16 96 Room Air 11/27/17 16:39 95 Room Air 11/27/17 16:39 95 Room Air 11/27/17 15:55 36.9 84 20 125/72 (89) 95 Physical Exam General Appearance: WD/WN, no apparent distress Eyes: sclerae normal ENT: hearing grossly normal Neck: supple, no JVD, trachea midline Respiratory/Chest: lungs clear, normal breath sounds, no respiratory distress, no accessory muscle use Cardiovascular: regular rate, rhythm Abdomen: normal bowel sounds, non tender, soft, + pertinent finding (large reducible LLQ hernia) Extremities: no pedal edema Neurologic/Psychiatric: alert, oriented x 3, + pertinent finding (mildly confused) Skin: normal color, warm/dry Laboratory Results Last 24 Hours Test 11/27/17 16:30 11/27/17 20:05 11/28/17 07:11 11/28/17 07:19 Bedside Glucose 207 mg/dl 194 mg/dl 82 mg/dl White Blood Count 7.40 K/uL Red Blood Count 3.39 M/uL Hemoglobin 9.2 g/dL Hematocrit 28.6 % Mean Corpuscular Volume 84.4 fL Mean Corpuscular Hemoglobin 27.1 pg Mean Corpuscular Hemoglobin Concent 32.2 g/dl RDW Standard Deviation 57.3 fL RDW Coefficient of Variation 18.7 % Platelet Count 99 K/uL Mean Platelet Volume 9.6 fL Activated Partial Thromboplast Time 50.0 SECONDS Partial Thromboplastin Ratio 1.9 Sodium Level 136 mmol/L Potassium Level 4.1 mmol/L Chloride Level 104 mmol/L Carbon Dioxide Level 25 mmol/L Anion Gap 7.0 mmol/L Blood Urea Nitrogen 29 mg/dl Creatinine 1.39 mg/dl Est Creatinine Clear Calc Drug Dose 56.1 ml/min Estimated GFR () 61.6 Estimated GFR (Non- 53.2 BUN/Creatinine Ratio 20.6 Random Glucose 83 mg/dl Calcium Level 8.6 mg/dl Test 11/28/17 11:20 Bedside Glucose 121 mg/dl Assessment and Plan Mr. 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 Acute Hepatic Encephalopathy: - Continue to monitor did have some encephalopathy today and continue home medications - dose intermittent refuse Lactulose L-Sided Abdominal Cellulitis: - Convert to Keflex 500 mg BID - is on this suppressively and can continue on D/ C - Gen Surg consultation - suggesting possible need for tertiary evaluation of hernia but can be done as outpatient R Common Femoral DVT and Superficial Femoral Vein: - Stop heparin gtt and convert to Lovenox 1.5 mg/kg daily - will need anticoagulation x 3 months - Consultation placed for Vascular Surgery - no indication for IVC filter at this time LETTY vs New Baseline Cr: - Has remained stable without much change and likely this is new baseline - Will continue Lasix 40 mg daily (home dosing in BID) and continue to monitor 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: - Continue back brace and monitor Chronic Diastolic CHF: STABLE 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 with Portal HTN and Ascites and Thrombocytopenia: - Continue Lasix 40 mg daily and tolerating increased Spironolactone 100 mg daily - Lactulose 30 g BID and will continue Xifaxan 550 mg BID - Consult GI - recommended paracentesis - currently pulled 4.8 L and will treat with Albumin T2DM: A1c 8.4 (Sep 2017) - Lantus 20 units SC BID and SSI Sarcoidosis with Extra-Pulmonary Effects: - Ventolin Q4H PRN and Xopenex neb TID - Prednisone 20 mg daily HLD: - Atorvastatin 10 mg daily HTN: - Propranolol 10 mg daily DVT Prophylaxis: Heparin gtt Code Status: FULL RESUSCITATION Disposition: - Evaluate cost of Lovenox and possible D/C tomorrow Continued [facility] stay due to: multiple IV medications needed Discharge planning: home
[2017-11-29] VITALS (9 sets, daily range): BP systolic 106–123; BP diastolic 62–72; PULSE 67–89; TEMP 36.5–37.1; O2SAT 91–97
[2017-11-29] MEDS: LEVALBUTEROL 1.25MG/3ML NEB INH SCH ×3 (07:35→21:13)
[2017-11-29 07:54] LABS: HEMATOCRIT 25.9 % (42-52); HEMOGLOBIN 8.2 g/dL (14.0-18.0); MEAN CELL VOLUME 83.8 fL (80-100); MEAN CORPUSCULAR HEMOGLOBIN 26.5 pg (25-34); MEAN CORPUSCULAR HGB CONC 31.7 g/dl (32-36); RED CELL DISTRIBUTION WIDTH CV 18.8 % (11.5-14.5); RED CELL DISTRIBUTION WIDTH SD 56.6 fL (36.4-46.3); WHITE BLOOD COUNT 5.78 K/uL (4.8-10.8)
[2017-11-29 07:55] LABS: MEAN PLATELET VOLUME 10.3 fL (7.4-10.4); PLATELET COUNT 96 K/uL (130-400)
[2017-11-29 08:03] LABS: PTT PATIENT 39.2 SECONDS (21.0-31.0)
[2017-11-29] MEDS: INSULIN ASPART 100 UNITS/ML 3 ML PEN SC SCH ×4 (08:10→20:09)
[2017-11-29] MEDS: ATORVASTATIN 10 MG TAB PO SCH (08:15)
[2017-11-29] MEDS: FLUOXETINE HCL 20 MG CAP PO SCH (08:16)
[2017-11-29] MEDS: SPIRONOLACTONE 100 MG TAB PO SCH (08:16)
[2017-11-29] MEDS: FUROSEMIDE 40 MG TAB PO SCH (08:16)
[2017-11-29] MEDS: RIFAXIMIN TAB 550 MG TAB PO SCH ×2 (08:16→20:08)
[2017-11-29] MEDS: CEPHALEXIN MONOHYDRATE 500 MG CAP PO SCH (08:17)
[2017-11-29] MEDS: LACTULOSE SYRUP 30 GM/45 ML UDP PO SCH ×2 (08:17→20:08)
[2017-11-29] MEDS: PROPRANOLOL HCL 10 MG TAB PO SCH (08:17)
[2017-11-29] MEDS: INSULIN GLARGINE SOLOSTAR 100 UNITS/ML 3 ML PEN SC SCH ×2 (08:20→20:11)
[2017-11-29] MEDS: ACETAMINOPHEN 325 MG TAB PO PRN (08:21)
[2017-11-29] MEDS: PANTOprazole SOD 40 MG TAB PO SCH (09:16)
[2017-11-29] MEDS ORDERED: ENOXAPARIN 150 MG/1ML SYR SQ SCH (11:00)
--- NOTE | 2017-11-29 13:00 | PROGRESS NOTE ---
DATE: 11/29/2017 SUBJECTIVE: The patient underwent paracentesis yesterday with ultrasound guidance and had 3.8 liters of fluid removed, this was tameka colored and received an albumin infusion. Following that, he reports that his umbilical hernia has reduced in size about 50% since the paracentesis. His ammonia is normal and he continues to take lactulose 30 grams twice a day along with Xifaxan 550 mg twice a day. He is having 3 bowel movements a day which is our target. OBJECTIVE: VITAL SIGNS: Blood pressure is 109/62, pulse 69, temperature is 36.7. IMPRESSION AND PLAN: The patient's cirrhosis is stable. He had some fluid removed from his abdomen yesterday, which is making him more comfortable and putting less pressure on his umbilical hernia. Will continue to keep him on diuretics, lactulose and Xifaxan. Will continue to follow him during his hospital stay.
--- NOTE | 2017-11-29 17:10 | DIAGNOSTIC IMAGING REPORT ---
CT OF THE HEAD WITHOUT CONTRAST CLINICAL HISTORY: Altered mental status. COMPARISON STUDY: Head CT November 23, 2017. TECHNIQUE: Helical axial images of the head were obtained without IV contrast. Automated exposure control was utilized for the study. A dose lowering technique was utilized adhering to the principles of ALARA. FINDINGS: No acute intracranial hemorrhage, midline shift or mass affect is present. Ventricular system is stable. Basilar cisterns are patent. There are no extra-axial collections. White matter hypodensity suggests small vessel disease. There are no findings to suggest acute dural sinus thrombosis or acute territorial infarct. There are postoperative findings within the sinuses. Right sphenoid sinus is largely opacified. There is moderate mucosal thickening of the right maxillary sinus. There is mild mucosal thickening of the ethmoid sinuses. There are postoperative findings within the sinuses. Sinus opacification has slightly progressed since exam of November 23, 2017. IMPRESSION: 1. No acute intracranial findings. 2. Paranasal sinus disease, as described above. Electronically signed by: Shayne Buchanan M.D. 11/29/2017 5:08 PM Dictated Date/Time: 11/29/2017 5:03 PM
--- NOTE | 2017-11-29 18:10 | Hospitalist Progress Note ---
Hospitalist Progress Note Date of Service Nov 29, 2017. (Enma Ruggiero PA-C) Subjective Pt evaluation today including: conversation w/ patient, conversation w/ family , physical exam, chart review, lab review, review of studies, conversation w/ corporate learning consultant (Dr. Johnson), review of inpatient medication list Patient seen and evaluated. Patient sustained a fall overnight. States he was "doing something stupid" and was trying to get to the bathroom to have a bowel movement. He was found sitting on the floor. No bruising to the head or reports of hitting his head. This AM states the his back still is sore but not worse then before his fall. Patient is more confused this AM which has been consistent during his stay but today his mentation didn't clear much, if anything got worse. He was reporting mice in his room, reaching to things in the air, mostly sleeping, and mumbling. Ammonia WNL and VBG WNL. Head CT without acute findings. Did have a paracentesis yesterday and continues to leak ascitic fluid. Skin is not erythematous but question of continued infection causing AMS. Had a long discussion with today and discussed collaboration with vascular and hematology. Given cirrhosis, warfarin would not be ideal given his liver disease and difficulty regulating this medication. Novel agents do not have the research to support use in his situation. IVC filter is not directly indicated in this situation, not to mention the risks of insertion/removal/migration/ puncture when the plan is for a 3 month coverage. Insurance reports copay $1000 for daily injections for one month. BID dosing will be $100 x 1 month and reports they can do this as it is the best approach. Given mentation, the concern would be for undertreated cellulitis/peritonitis. Plan for diagnostic paracentesis tomorrow to evaluate fluid and will broaden ABx coverage. Will also need to consider exploration that his back may be contributing with his H/O meningitis and spinal abscess. Constitutional: No fever, No chills Respiratory: No cough, No shortness of breath Cardiovascular: No chest pain Abdomen: No pain, No nausea, No vomiting, No diarrhea, No constipation Musculoskeletal: No calf pain Heme: + abnormal bleeding/bruising (Enma Ruggiero, KRISTENC) Medications Current Inpatient Medications Medications (Trade) Dose Ordered Sig/Nathalia Route Start Time Stop Time Status Last Admin Dose Admin Acetaminophen (Tylenol Tab) 650 mg Q4H PRN PO 11/23/17 17:45 12/23/17 17:44 11/29/17 08:21 650 MG Al Hydrox/Mg Hydrox/Simethicone (Maalox Max Susp) 15 ml Q4H PRN PO 11/23/17 17:45 12/23/17 17:44 Magnesium Hydroxide (Milk Of Magnesia Susp) 30 ml Q12H PRN PO 11/23/17 17:45 12/23/17 17:44 Ondansetron HCl (Zofran Inj) 4 mg Q6H PRN IV 11/23/17 17:45 12/23/17 17:44 Polyethylene (Miralax Powder Packet) 17 gm DAILY PRN PO 11/23/17 17:45 12/23/17 17:44 Insulin Aspart (novoLOG ASPART) SLIDING SCALE If C... ACHS SC 11/23/17 21:00 12/23/17 20:59 11/29/17 13:04 3 UNITS Glucose (Glucose 40% Gel) 15-30 GRAMS 15 GRAMS... UD PRN PO 11/23/17 17:45 12/23/17 17:44 Glucose (Glucose Chew Tab) 4-8 Tablets 4 Tabl... UD PRN PO 11/23/17 17:45 12/23/17 17:44 Dextrose (Dextrose 50% 50ML Syringe) 25-50ML OF 50% DW IV FOR... UD PRN IV 11/23/17 17:45 12/23/17 17:44 Glucagon (Glucagon Inj) 1 mg UD PRN SQ 11/23/17 17:45 12/23/17 17:44 Albuterol Sulfate (Ventolin 0.083% 2.5MG/3ML Neb) 2.5 mg Q4H PRN INH 11/23/17 17:45 12/23/17 17:44 11/27/17 22:13 2.5 MG Atorvastatin Calcium (Lipitor Tab) 10 mg DAILY PO 11/24/17 09:00 12/24/17 08:59 11/29/17 08:15 10 MG Fluoxetine HCl (Prozac Cap) 40 mg QAM PO 11/24/17 09:00 12/24/17 08:59 11/29/17 08:16 40 MG Levalbuterol (Xopenex 1.25MG/ 3ML Neb) 1.25 mg TID INH 11/23/17 21:00 12/23/17 20:59 11/29/17 14:26 1.25 MG Ondansetron HCl (Zofran Tab) 4 mg Q4 PRN PO 11/23/17 17:45 12/23/17 17:44 Oxycodone HCl (Roxicodone Immediate Rel Tab) 5 mg Q4H PRN PO 11/23/17 17:45 12/07/17 17:44 11/28/17 11:37 5 MG Pantoprazole Sodium (Protonix Tab) 40 mg QAM PO 11/24/17 09:00 12/24/17 08:59 11/29/17 09:16 40 MG Propranolol HCl (Inderal Tab) 10 mg DAILY PO 11/24/17 09:00 12/24/17 08:59 11/29/17 08:17 10 MG Insulin Glargine (Lantus Solostar Pen) 20 units BID SC 11/23/17 21:00 12/23/17 20:59 11/29/17 08:20 20 UNITS Rifaximin (Xifaxan Tab) 550 mg BID PO 11/24/17 09:00 12/24/17 08:59 11/29/17 08:16 550 MG Spironolactone (Aldactone Tab) 100 mg QAM PO 11/27/17 09:00 12/27/17 08:59 11/29/17 08:16 100 MG Furosemide (Lasix Tab) 40 mg QAM PO 11/27/17 09:00 12/27/17 08:59 11/29/17 08:16 40 MG Lactulose (Chronulac Syrup) 30 gm BID PO 11/27/17 21:00 12/23/17 20:59 11/28/17 20:58 30 GM Prednisone (PredniSONE TAB) 20 mg DAILY PO 11/28/17 09:00 12/28/17 08:59 11/29/17 08:15 20 MG Cephalexin Monohydrate (Keflex Cap) 500 mg BID PO 11/27/17 21:00 12/07/17 20:59 11/29/17 08:17 500 MG Enoxaparin Sodium (Lovenox Inj) 129 mg DAILY SQ 11/29/17 11:00 12/29/17 10:59 Future Hold 11/29/17 13:06 129 MG Ceftriaxone Sodium 1 gm/ Dextrose 50 ml @ 100 mls/hr Q24H IV 11/29/17 17:45 12/09/17 17:44 UNV Vancomycin HCl 1000 mg/Sodium Chloride 270 ml @ 125 mls/hr Q12 IV 11/29/17 21:00 12/09/17 20:59 UNV (Enma Ruggiero PA-C) Objective Vital Signs Date Time Temp Pulse Resp B/P (MAP) Pulse Ox O2 Delivery O2 Flow Rate FiO2 11/29/17 15:39 36.7 68 18 112/68 (83) 96 Room Air 11/29/17 14:26 67 16 91 Room Air 11/29/17 08:15 Room Air 11/29/17 07:35 89 16 93 Room Air 11/29/17 06:59 36.7 69 18 109/62 (78) 96 Room Air 11/29/17 00:00 Room Air 11/29/17 00:00 37.1 82 20 123/72 (89) 93 Room Air 11/28/17 22:27 83 91 21 11/28/17 20:32 89 16 93 Room Air (Enma Ruggiero PA-C) Physical Exam General Appearance: WD/WN, no apparent distress, + obese Eyes: sclerae normal ENT: hearing grossly normal Neck: supple, no JVD, trachea midline Respiratory/Chest: lungs clear, normal breath sounds, no respiratory distress, no accessory muscle use Cardiovascular: regular rate, rhythm, no gallop, no murmur Abdomen: normal bowel sounds, non tender, soft, + hernia (LLQ - reducible), + pertinent finding (paracentesis puncture with clear ascitic drainage without erythema or purulent drainage; no visualized erythema of abdominal wall) Extremities: + swelling (1+ pitting edema of ankles R>L) Neurologic/Psychiatric: alert, oriented x 3 (this AM but confused - throughout the day he became more lethargic and confused) Skin: normal color, warm/dry, + pertinent finding (scattered diffuse ecchymosis ) (Enma Ruggiero PA-C) Laboratory Results Last 24 Hours Test 11/28/17 19:56 11/29/17 07:28 11/29/17 07:33 11/29/17 11:32 Bedside Glucose 159 mg/dl 109 mg/dl 113 mg/dl White Blood Count 5.78 K/uL Red Blood Count 3.09 M/uL Hemoglobin 8.2 g/dL Hematocrit 25.9 % Mean Corpuscular Volume 83.8 fL Mean Corpuscular Hemoglobin 26.5 pg Mean Corpuscular Hemoglobin Concent 31.7 g/dl RDW Standard Deviation 56.6 fL RDW Coefficient of Variation 18.8 % Platelet Count 96 K/uL Mean Platelet Volume 10.3 fL Activated Partial Thromboplast Time 39.2 SECONDS Partial Thromboplastin Ratio 1.5 Test 11/29/17 13:48 11/29/17 16:24 Venous Blood pH 7.40 Venous Blood Partial Pressure CO2 43 mmHg Venous Blood Partial Pressure O2 38 mmHg Venous Blood HCO3 26 mmol/L Venous Blood Oxygen Saturation 67.2 % Venous Blood Base Excess 0.8 mEq/L Ammonia 29.8 umol/L Bedside Glucose 189 mg/dl (Enma Ruggiero, PA-C) Assessment and Plan Mr. 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 Acute Metabolic Encephalopathy: - On admission he was very lethargic and confused but did improve with waxing and waning mentation that was worse in the AM and progressively improved throughout the day; on 11/29 patient was more coherent this AM but was encephalopathic but has become more lethargic throughout the day - Possible related to infection; Head CT/Ammonia/VBG unremarkable - will broaden Abx coverage and monitor for improvement L-Sided Abdominal Cellulitis: - Will go back to Rocephin 1 g IV daily and Vancomycin given changes in mentation and recent paracentesis - Will hold Lovenox tomorrow and likely discuss a diagnostic paracentesis to evaluate fluid for infection - Gen Surg consultation - suggesting possible need for tertiary evaluation of hernia but can be done as outpatient R Common Femoral DVT and Superficial Femoral Vein: - Lovenox 1.5 mg/kg daily - will need anticoagulation x 3 months - Consultation placed for Vascular Surgery - no indication for IVC filter at this time - Will need BID dosing on D/C due to insurance coverage - reporting BID dosing to be $100/month and states this is feasible x 3 months LETTY vs New Baseline Cr: - Cr is WNL today - continue to monitor 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: - Continue back brace and monitor Chronic Diastolic CHF: STABLE 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 with Portal HTN and Ascites and Thrombocytopenia: - Continue Lasix 40 mg daily and tolerating increased Spironolactone 100 mg daily - Lactulose 30 g BID and will continue Xifaxan 550 mg BID - GI following - appreciate further recommendations T2DM: A1c 8.4 (Sep 2017) - Lantus 20 units SC BID and SSI Sarcoidosis with Extra-Pulmonary Effects: - Ventolin Q4H PRN and Xopenex neb TID - Prednisone 20 mg daily HLD: - Atorvastatin 10 mg daily HTN: - Propranolol 10 mg daily DVT Prophylaxis: Heparin gtt Code Status: FULL RESUSCITATION Disposition: - D/C uncertain at this time - will broaden IV Abx pending response may need to further explore his back given H/O meningitis and abscess - PT/OT - likely need rehab on D/C Continued [facility] stay due to: multiple IV medications needed Discharge planning: uncertain (Enma Ruggiero, PAJereC) Attending Attestation: Pt seen/examined, chart reviewed, care plan d/w ANJALI Ruggiero. I agree w/ the chan components of her documentation. PT's at bedside. She confirms he continues to be confused, falling asleep easily, etc. She recounts the events of the last year pertaining to his back, epidural abscess w/ drainage, PICC line w/ IV abx, meningitis, multiple surgeries here and at [facility] [place]. Pt himself denies complaints. Fell asleep multiple times during the visit. gen - chronically ill appearing, alert one moment then falling asleep the next minute, could not tell me the months of the year backwards skin - ecchymoses multiple areas, no jaundice neck - no JVD heart - RRR lungs - CTA b/l abd - mild ascites, large reducible hernia in the midline/just to left of midline, previous paracentesis puncture site leaking clear ascites fluid, left side of abdomen with warmth and hyperpigmented skin/slightly red skin but nontender, BS+ ext - no edema neuro - no asterixis, strength 5/5 x 4 exts back - minimal tenderness to palpation over l-spine in the midline A/P: 1. ongoing encephalopathy, metabolic, but specific cause uncertain. I am most concerned about a smoldering infection - SBP vs cellulitis of the abdominal wall vs infectious process of back vs other. Will place back on rocephin/vanco. Hold lovenox. Plan for diagnostic paracentesis tomorrow (had therapeutic paracentesis a few days ago but no fluid was sent for analysis). If tap is neg for SBP then consider imaging of l-spine, r/o infectious process there. 2. RLE DVT - on lovenox 1mg/kg BID; hold for paracentesis tomorrow. 3. cirrhosis, with mild decompensation (ascites, etc) - but no evidence of hepatic encephalopathy. Raiza NEVAREZ MD (Antoni Nevarez MD)
[2017-11-29] MEDS ORDERED: VANCOMYCIN CONSULT ACTIVE PRN (18:15)
[2017-11-29] MEDS: CEFTRIAXONE SOD INJ 1 GM in DEXTROSE 5% ADD-VANTAGE 50ML 50 ML IV SCH (18:37)
[2017-11-29] MEDS ORDERED: VANCOMYCIN INJ 1,750 MG in SODIUM CHLORIDE 0.9% 500ML 500 ML IV ONE (19:00)
--- NOTE | 2017-11-29 22:16 | Pharmacy Progress Note ---
Pharmacy Abx Dose Short Note Date of Service Nov 29, 2017. Assessment & Plan Assessment 62 year old male receiving vancomycin/Rocephin for treatment of non-specific infection/SSTI Day # 1 of antimicrobial therapy. Plan Vancomycin * Restart vancomycin with 1750 mg IV load (23 mg/kg/dose) * Then begin vancomycin 1250 mg IV every 24 hours started 26 hours after the load (based upon previous patient data this should provide adequate trough levels for unspecified infections) * Goal trough level for unspecified infection : 15 to 20 mcg/mL * Trough ordered for: 12/01/17 prior to 2100 dose Pharmacy will continue to follow and will adjust dose/frequency as necessary. Thank you.
[2017-11-30] VITALS (7 sets, daily range): BP systolic 96–129; BP diastolic 54–72; PULSE 71–82; TEMP 36.4–36.9; O2SAT 93–97
[2017-11-30] MEDS: LEVALBUTEROL 1.25MG/3ML NEB INH SCH ×3 (07:40→19:30)
[2017-11-30 08:03] LABS: HEMOGLOBIN 8.3 g/dL (14.0-18.0); MEAN CELL VOLUME 84.7 fL (80-100); MEAN CORPUSCULAR HGB CONC 31.9 g/dl (32-36); MEAN PLATELET VOLUME 9.8 fL (7.4-10.4); PLATELET COUNT 101 K/uL (130-400); RED CELL DISTRIBUTION WIDTH CV 19.3 % (11.5-14.5); RED CELL DISTRIBUTION WIDTH SD 58.8 fL (36.4-46.3); WHITE BLOOD COUNT 6.41 K/uL (4.8-10.8)
[2017-11-30 08:10] LABS: PTT PATIENT 36.6 SECONDS (21.0-31.0)
[2017-11-30 08:32] LABS: ALBUMIN 2.1 gm/dl (3.4-5.0); CALCIUM 8.5 mg/dl (8.5-10.1); CREATININE 1.49 mg/dl (0.60-1.40); POTASSIUM 3.9 mmol/L (3.5-5.1)
[2017-11-30 08:35] LABS: TOTAL PROTEIN 5.3 gm/dl (6.4-8.2)
[2017-11-30] MEDS: LACTULOSE SYRUP 30 GM/45 ML UDP PO SCH ×2 (09:00→20:48)
[2017-11-30] MEDS: ATORVASTATIN 10 MG TAB PO SCH (09:08)
[2017-11-30] MEDS: PANTOprazole SOD 40 MG TAB PO SCH (09:08)
[2017-11-30] MEDS: RIFAXIMIN TAB 550 MG TAB PO SCH ×2 (09:08→20:49)
[2017-11-30] MEDS: SPIRONOLACTONE 100 MG TAB PO SCH (09:08)
[2017-11-30] MEDS: FLUOXETINE HCL 20 MG CAP PO SCH (09:08)
[2017-11-30] MEDS: PROPRANOLOL HCL 10 MG TAB PO SCH (09:09)
[2017-11-30] MEDS: FUROSEMIDE 40 MG TAB PO SCH (09:09)
[2017-11-30] MEDS: ACETAMINOPHEN 325 MG TAB PO PRN ×2 (09:11→20:48)
[2017-11-30] MEDS: INSULIN GLARGINE SOLOSTAR 100 UNITS/ML 3 ML PEN SC SCH ×2 (09:56→20:55)
[2017-11-30] MEDS: INSULIN ASPART 100 UNITS/ML 3 ML PEN SC SCH ×4 (09:56→20:55)
--- NOTE | 2017-11-30 12:20 | Hospitalist Progress Note ---
Hospitalist Progress Note Date of Service Nov 30, 2017. (Enma Ruggiero PA-C) Subjective Pt evaluation today including: conversation w/ patient, physical exam, chart review, lab review, review of studies, review of inpatient medication list Patient seen and evaluated. Mentation does appear to be improving compared to yesterday but continues to be drowsy. Pressure dressing applied to paracentesis site that is clean and dry. Abdomen is warm to touch but without direct erythema. Is having back pain but feels that it is from laying in bed so much. States the back feels about the same as it has since arrival. He was resumed on IV abx for further treatment of abdominal cellulitis vs SBP. Will have additional paracentesis today for fluid analysis. Lovenox on hold. Constitutional: No fever, No chills Respiratory: No shortness of breath Cardiovascular: No chest pain Abdomen: No pain, No nausea, No vomiting, No diarrhea, No constipation Musculoskeletal: + problem reported (back pain) Male : No dysuria Heme: + abnormal bleeding/bruising (Enma Ruggiero, KRISTENC) Medications Current Inpatient Medications Medications (Trade) Dose Ordered Sig/Nathalia Route Start Time Stop Time Status Last Admin Dose Admin Acetaminophen (Tylenol Tab) 650 mg Q4H PRN PO 11/23/17 17:45 12/23/17 17:44 11/30/17 09:11 650 MG Al Hydrox/Mg Hydrox/Simethicone (Maalox Max Susp) 15 ml Q4H PRN PO 11/23/17 17:45 12/23/17 17:44 Magnesium Hydroxide (Milk Of Magnesia Susp) 30 ml Q12H PRN PO 11/23/17 17:45 12/23/17 17:44 Ondansetron HCl (Zofran Inj) 4 mg Q6H PRN IV 11/23/17 17:45 12/23/17 17:44 Polyethylene (Miralax Powder Packet) 17 gm DAILY PRN PO 11/23/17 17:45 12/23/17 17:44 Insulin Aspart (novoLOG ASPART) SLIDING SCALE If C... ACHS SC 11/23/17 21:00 12/23/17 20:59 11/30/17 09:56 4 UNITS Glucose (Glucose 40% Gel) 15-30 GRAMS 15 GRAMS... UD PRN PO 11/23/17 17:45 12/23/17 17:44 Glucose (Glucose Chew Tab) 4-8 Tablets 4 Tabl... UD PRN PO 11/23/17 17:45 12/23/17 17:44 Dextrose (Dextrose 50% 50ML Syringe) 25-50ML OF 50% DW IV FOR... UD PRN IV 11/23/17 17:45 12/23/17 17:44 Glucagon (Glucagon Inj) 1 mg UD PRN SQ 11/23/17 17:45 12/23/17 17:44 Albuterol Sulfate (Ventolin 0.083% 2.5MG/3ML Neb) 2.5 mg Q4H PRN INH 11/23/17 17:45 12/23/17 17:44 11/27/17 22:13 2.5 MG Atorvastatin Calcium (Lipitor Tab) 10 mg DAILY PO 11/24/17 09:00 12/24/17 08:59 11/30/17 09:08 10 MG Fluoxetine HCl (Prozac Cap) 40 mg QAM PO 11/24/17 09:00 12/24/17 08:59 11/30/17 09:08 40 MG Levalbuterol (Xopenex 1.25MG/ 3ML Neb) 1.25 mg TID INH 11/23/17 21:00 12/23/17 20:59 11/30/17 07:40 1.25 MG Ondansetron HCl (Zofran Tab) 4 mg Q4 PRN PO 11/23/17 17:45 12/23/17 17:44 Oxycodone HCl (Roxicodone Immediate Rel Tab) 5 mg Q4H PRN PO 11/23/17 17:45 12/07/17 17:44 11/28/17 11:37 5 MG Pantoprazole Sodium (Protonix Tab) 40 mg QAM PO 11/24/17 09:00 12/24/17 08:59 11/30/17 09:08 40 MG Propranolol HCl (Inderal Tab) 10 mg DAILY PO 11/24/17 09:00 12/24/17 08:59 11/30/17 09:09 10 MG Insulin Glargine (Lantus Solostar Pen) 20 units BID SC 11/23/17 21:00 2/18 20:59 11/30/17 09:56 20 UNITS Rifaximin (Xifaxan Tab) 550 mg BID PO 11/24/17 09:00 12/24/17 08:59 11/30/17 09:08 550 MG Spironolactone (Aldactone Tab) 100 mg QAM PO 11/27/17 09:00 12/27/17 08:59 11/30/17 09:08 100 MG Furosemide (Lasix Tab) 40 mg QAM PO 11/27/17 09:00 12/27/17 08:59 11/30/17 09:09 40 MG Lactulose (Chronulac Syrup) 30 gm BID PO 11/27/17 21:00 12/23/17 20:59 11/29/17 20:08 30 GM Prednisone (PredniSONE TAB) 20 mg DAILY PO 11/28/17 09:00 12/28/17 08:59 11/30/17 09:09 20 MG Enoxaparin Sodium (Lovenox Inj) 129 mg DAILY SQ 11/29/17 11:00 12/29/17 10:59 Future Hold 11/29/17 13:06 129 MG Ceftriaxone Sodium 1 gm/ Dextrose 50 ml @ 100 mls/hr Q24H IV 11/29/17 18:00 12/09/17 17:59 11/29/17 18:37 100 MLS/HR Vancomycin HCl (Consult) 1 ea UD PRN N/A 11/29/17 18:15 12/29/17 18:14 Vancomycin HCl 1250 mg/Sodium Chloride 275 ml @ 125 mls/hr Q24H IV 11/30/17 21:00 12/09/17 23:59 (Enma Ruggiero, KEO) Objective Vital Signs Date Time Temp Pulse Resp B/P (MAP) Pulse Ox O2 Delivery O2 Flow Rate FiO2 11/30/17 08:30 Room Air 11/30/17 07:40 73 16 97 Room Air 11/30/17 07:04 36.4 72 17 129/72 (91) 97 CPAP 11/30/17 00:00 Room Air BiPAP 11/29/17 23:28 36.5 76 20 106/62 (77) 97 CPAP 11/29/17 22:23 74 95 21 11/29/17 20:10 77 16 96 Room Air 11/29/17 20:00 Room Air BiPAP 11/29/17 16:00 96 Room Air 11/29/17 15:39 36.7 68 18 112/68 (83) 96 Room Air 11/29/17 14:26 67 16 91 Room Air (Enma Ruggiero PA-C) Physical Exam General Appearance: WD/WN, no apparent distress Eyes: sclerae normal ENT: hearing grossly normal Neck: supple, no JVD, trachea midline Respiratory/Chest: lungs clear, normal breath sounds, no respiratory distress, no accessory muscle use Cardiovascular: regular rate, rhythm, + systolic murmur Abdomen: normal bowel sounds, non tender, soft, + hernia (LLQ reducible), + pertinent finding (mildly warm to touch; paracentesis site with pressure dressing that is C/D/I) Extremities: + swelling (1+ b/l ankles) Neurologic/Psychiatric: alert, oriented x 3, + pertinent finding (drowsy) (Enma Ruggiero, KRISTENC) Laboratory Results Last 24 Hours Test 11/29/17 13:48 11/29/17 16:24 11/29/17 20:04 11/30/17 07:18 Venous Blood pH 7.40 Venous Blood Partial Pressure CO2 43 mmHg Venous Blood Partial Pressure O2 38 mmHg Venous Blood HCO3 26 mmol/L Venous Blood Oxygen Saturation 67.2 % Venous Blood Base Excess 0.8 mEq/L Ammonia 29.8 umol/L Bedside Glucose 189 mg/dl 178 mg/dl Prothrombin Time 11.0 SECONDS Prothromb Time International Ratio 1.0 Test 11/30/17 07:19 11/30/17 07:29 11/30/17 08:03 11/30/17 11:33 White Blood Count 6.41 K/uL Red Blood Count 3.07 M/uL Hemoglobin 8.3 g/dL Hematocrit 26.0 % Mean Corpuscular Volume 84.7 fL Mean Corpuscular Hemoglobin 27.0 pg Mean Corpuscular Hemoglobin Concent 31.9 g/dl RDW Standard Deviation 58.8 fL RDW Coefficient of Variation 19.3 % Platelet Count 101 K/uL Mean Platelet Volume 9.8 fL Activated Partial Thromboplast Time 36.6 SECONDS Partial Thromboplastin Ratio 1.4 Sodium Level 139 mmol/L Potassium Level 3.9 mmol/L Chloride Level 105 mmol/L Carbon Dioxide Level 28 mmol/L Anion Gap 6.0 mmol/L Blood Urea Nitrogen 29 mg/dl Creatinine 1.49 mg/dl Est Creatinine Clear Calc Drug Dose 50.7 ml/min Estimated GFR () 56.7 Estimated GFR (Non- 48.9 BUN/Creatinine Ratio 19.7 Random Glucose 86 mg/dl Calcium Level 8.5 mg/dl Total Bilirubin 1.0 mg/dl Aspartate Amino Transf (AST/SGOT) 41 U/L Alanine Aminotransferase (ALT/SGPT) 30 U/L Alkaline Phosphatase 210 U/L Total Protein 5.3 gm/dl Albumin 2.1 gm/dl Globulin 3.2 gm/dl Albumin/Globulin Ratio 0.7 Bedside Glucose 88 mg/dl 146 mg/dl (Enma Ruggiero, PAJereC) Assessment and Plan Mr. 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 Acute Metabolic Encephalopathy: IMPROVING - On admission he was very lethargic and confused but did improve with waxing and waning mentation that was worse in the AM and progressively improved throughout the day; on 11/29 patient was more coherent in AM but was encephalopathic but became more lethargic throughout the day - Head CT/Ammonia/ VBG unremarkable - does appear to be improving today but still drowsy L-Sided Abdominal Cellulitis vs Stasis: - Will go back to Rocephin 1 g IV daily and Vancomycin given changes in mentation and recent paracentesis - Diagnostic paracentesis completed - no direct indication for SBP - Gen Surg recommendation - suggesting possible need for tertiary evaluation of hernia but can be done as outpatient R Common Femoral DVT and Superficial Femoral Vein: - Lovenox 1.5 mg/kg daily - will need anticoagulation x 3 months - Consultation placed for Vascular Surgery - no indication for IVC filter at this time - Will need BID dosing on D/C due to insurance coverage - reporting BID dosing to be $100/month and states this is feasible x 3 months LETTY vs New Baseline Cr: - Cr rather stable but fluctuating between WNL and mild elevation 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: - Continue back brace and monitor; PRN pain medication Chronic Diastolic CHF: STABLE 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 with Portal HTN and Ascites and Thrombocytopenia: - Continue Lasix 40 mg daily and tolerating increased Spironolactone 100 mg daily - Lactulose 30 g BID and will continue Xifaxan 550 mg BID - GI following - appreciate further recommendations T2DM: A1c 8.4 (Sep 2017) - Lantus 20 units SC BID and SSI Sarcoidosis with Extra-Pulmonary Effects: - Ventolin Q4H PRN and Xopenex neb TID - Prednisone 20 mg daily HLD: - Atorvastatin 10 mg daily HTN: - Propranolol 10 mg daily DVT Prophylaxis: Heparin gtt Code Status: FULL RESUSCITATION Disposition: - D/C uncertain at this time - will broaden IV Abx pending response may need to further explore his back given H/O meningitis and abscess - PT/OT - likely need rehab on D/C Continued [facility] stay due to: multiple IV medications needed Discharge planning: rehab hospital (Enma Ruggiero, PAJereC) Attending Attestation: Pt seen/examined, chart reviewed, care plan d/w ANJALI Ruggiero. I agree w/ the chan components of her documentation. PT's at bedside once again. She confirms his mentation is MUCH better today. He reports feeling better. Good appetite. Overall more energy today and not falling asleep like yesterday. VSS no fever gen - chronically ill appearing, but much more awake/alert and oriented x 3 today; did not fall asleep during our conversation today skin - ecchymoses multiple areas, no jaundice neck - no JVD heart - RRR lungs - CTA b/l abd - mild ascites, large reducible hernia in the midline/just to left of midline, previous paracentesis puncture site no longer leaking ascites fluid, left side of abdomen with minimal warmth and hyperpigmented skin but not red; BS + ext - no edema neuro - no asterixis, strength 5/5 x 4 exts; a/o x 3 A/P: 1. ongoing encephalopathy, metabolic - suspect some element of infection causing his encephalopathy. Diagnostic paracentesis today w/o evidence of SBP. Recent abdominal wall cellulitis is much improved. He c/o dysuria - recheck u/a and urine cx. In light of his lumbar spine history and ongoing pain in that region consider MRI of lumbar spine - r/o diskitis. Cont rocephin/vanco. 2. RLE DVT - on lovenox 1mg/kg BID; was held for paracentesis today but can resume later tonight. 3. cirrhosis, with mild decompensation (ascites, etc) - still no evidence of hepatic encephalopathy. I am pleased with his improvement overnight. updated. Raiza NEVAREZ MD (Antoni Nevarez MD)
--- NOTE | 2017-11-30 14:58 | DIAGNOSTIC IMAGING REPORT ---
DIAGNOSTIC PARACENTESIS UNDER ULTRASOUND GUIDANCE CLINICAL HISTORY: Abdominal pain, ascites, confusion, r/o SBP COMPARISON STUDY: No previous studies for comparison. FINDINGS: A timeout was performed. The risks, benefits, and alternatives to the procedure were discussed with the patient. Written informed consent was obtained. Following real-time ultrasound localization, the skin was prepped and draped. Following local anesthesia with Xylocaine, an 18-gauge needle was introduced into the peritoneum and 120 cc of straw-colored fluid was removed by vacuum suction. The patient tolerated the procedure well and left the department in satisfactory condition. IMPRESSION: Successful diagnostic ultrasound-guided paracentesis with removal of approximately 120 cc of ascitic fluid. This was sent to the laboratory for analysis. Electronically signed by: Ian Jones M.D. 11/30/2017 2:57 PM Dictated Date/Time: 11/30/2017 2:55 PM
--- NOTE | 2017-11-30 16:09 | PROGRESS NOTE ---
DATE: 11/30/2017 SUBJECTIVE: The patient continues to have waxing and waning mental status. His ammonia level remains normal at 29.8 yesterday, his white count is normal at 6.41, and he is afebrile. He underwent a paracentesis again today and this was diagnostic, 120 mL of straw-colored fluid was removed and sent for laboratory. The initial findings showed only 223 white cells, 4000 red cells. Microbiology is pending. It is unlikely that this represents spontaneous bacterial peritonitis. He is currently on lactulose and Xifaxan as well as diuretics which we will continue. Will await final results of his diagnostic paracentesis from today and Dr. Monroe will follow the patient tomorrow.
[2017-11-30] MEDS ORDERED: ENOXAPARIN 1.5 MG/KG SQ ONE (17:51)
[2017-11-30] MEDS: CEFTRIAXONE SOD INJ 1 GM in DEXTROSE 5% ADD-VANTAGE 50ML 50 ML IV SCH (17:57)
[2017-11-30] MEDS: ENOXAPARIN 120 MG/0.8 ML SYR SQ SCH (18:43)
[2017-11-30] MEDS: VANCOMYCIN INJ 1,250 MG in SODIUM CHLORIDE 0.9% 250ML 250 ML IV SCH (20:56)
[2017-11-30] MEDS: OXYCODONE HCL IR 5 MG TAB (IMMEDIATE RELEASE) PO PRN (23:31)
[2017-12-01] VITALS (7 sets, daily range): BP systolic 93–125; BP diastolic 55–65; PULSE 71–100; TEMP 36.7; O2SAT 91–96
[2017-12-01] MEDS: LEVALBUTEROL 1.25MG/3ML NEB INH SCH ×3 (07:19→18:59)
[2017-12-01 07:38] LABS: HEMATOCRIT 24.8 % (42-52); HEMOGLOBIN 8.1 g/dL (14.0-18.0); MEAN CELL VOLUME 84.1 fL (80-100); MEAN CORPUSCULAR HEMOGLOBIN 27.5 pg (25-34); MEAN CORPUSCULAR HGB CONC 32.7 g/dl (32-36); RED CELL DISTRIBUTION WIDTH CV 19.4 % (11.5-14.5); RED CELL DISTRIBUTION WIDTH SD 58.6 fL (36.4-46.3); WHITE BLOOD COUNT 5.69 K/uL (4.8-10.8)
[2017-12-01 08:06] LABS: PLATELET COUNT 96 K/uL (130-400)
[2017-12-01] MEDS: FUROSEMIDE 40 MG TAB PO SCH (08:08)
[2017-12-01] MEDS: FLUOXETINE HCL 20 MG CAP PO SCH (08:08)
[2017-12-01] MEDS: PANTOprazole SOD 40 MG TAB PO SCH (08:08)
[2017-12-01] MEDS: SPIRONOLACTONE 100 MG TAB PO SCH (08:09)
[2017-12-01] MEDS: PROPRANOLOL HCL 10 MG TAB PO SCH (08:09)
[2017-12-01] MEDS: RIFAXIMIN TAB 550 MG TAB PO SCH ×2 (08:09→21:14)
[2017-12-01] MEDS: ATORVASTATIN 10 MG TAB PO SCH (08:09)
[2017-12-01 08:10] LABS: CALCIUM 8.3 mg/dl (8.5-10.1); CREATININE 1.42 mg/dl (0.60-1.40); POTASSIUM 3.9 mmol/L (3.5-5.1)
[2017-12-01] MEDS: LACTULOSE SYRUP 30 GM/45 ML UDP PO SCH ×2 (08:10→21:00)
[2017-12-01] MEDS: INSULIN GLARGINE SOLOSTAR 100 UNITS/ML 3 ML PEN SC SCH ×2 (08:13→21:15)
[2017-12-01] MEDS: INSULIN ASPART 100 UNITS/ML 3 ML PEN SC SCH ×4 (08:13→21:15)
[2017-12-01] MEDS ORDERED: ENOXAPARIN 1.5 MG/KG SQ SCH (09:00)
[2017-12-01] MEDS ORDERED: GADAVIST IV PRN (12:45)
[2017-12-01] MEDS: OXYCODONE HCL IR 5 MG TAB (IMMEDIATE RELEASE) PO PRN (13:07)
--- NOTE | 2017-12-01 13:10 | DIAGNOSTIC IMAGING REPORT ---
MRI OF THE LUMBAR SPINE WITH AND WITHOUT CONTRAST CLINICAL HISTORY: Lumbar back pain. Evaluate for discitis or abscess. COMPARISON STUDY: Lumbar spine MRI May 02, [address] November 23, 2017. TECHNIQUE: Utilizing a 1.5 Karla magnet and dedicated coil, multiplanar, multiecho imaging of the lumbar spine was performed before and after uneventful IV administration of 8 mL of Gadavist. FINDINGS: An L4 laminectomy is noted. There is a bilateral pedicle screw fusion from L2 through S1 with cannulated screws extending into the bilateral iliac wings. Prior hardware removal at the L4 and L5 levels is noted. 9 mm anterolisthesis of L4 and L5 is present. Orthopedic hardware extending from the L3-L5 vertebral bodies is noted. Susceptibility artifact from hardware compromises visualization of the central canal. Loss of height of L4 is noted. There is a severe L1 compression fracture. There is a suspected old fracture of the anterior aspect of the S1 vertebral body. Signal abnormality within the operative bed is noted. Note is made of an elongated operative bed fluid collection extends from the mid L2-L5 levels that measures approximately 8.9 x 8.3 x 4.2 cm. No additional fluid collections are identified. No definite epidural fluid collection is identified. There is no MRI evidence of discitis. IMPRESSION: 1. Extensive postoperative findings within lumbar spine, as described above. Susceptibility artifact from the spinal hardware markedly compromises visualization of the lumbar spine. However, no epidural abscess or evidence for discitis. 2. Small nonspecific operative bed fluid collection that extends from L2 through L5. This may reflect a seroma, resolving hematoma or abscess. 3. L1 and L4 fractures which are unchanged since CT of November 23, 2017. Electronically signed by: Shayne Buchanan M.D. 12/01/2017 1:09 PM Dictated Date/Time: 12/01/2017 12:51 PM
--- NOTE | 2017-12-01 15:55 | Hospitalist Progress Note ---
Hospitalist Progress Note Date of Service Dec 01, 2017. (Enma Ruggiero, KRISTENC) Subjective Pt evaluation today including: conversation w/ patient, conversation w/ family , physical exam, chart review, lab review, review of studies, review of inpatient medication list Patient seen and evaluated. Mentation has drastically improved since restarting IV antibiotics. Energy levels improving as well. Reporting some burning sensation at the bottom of his abdominal hernia. No open wounds but mildly red irritation where the skin folds under the hernia. Will try Desenex to help with relief. Abdomen is a lot less distended since paracentesis. Tap does not support SBP. Obtained MRI given back pain and his extensive issues with abscess formation. There is a 8.9x8.3x4.2 cm fluid filled mass in the L spine he has had previous abscess however did sustain a fall a few days ago...given his history will consult spine for their opinion. ESR and CRP mildly elevated and patient is immunocompromised so may not present as overtly as someone else in setting of infection. Infection is concerning due to AMS changes the other day that seemed to resolve with incorporating IV Abx. Constitutional: No fever, No chills Respiratory: No shortness of breath Cardiovascular: No chest pain Abdomen: No pain, No nausea, No vomiting Musculoskeletal: + problem reported (back pain) Skin: + problem reported (burning sensation of hernia) (Enma Ruggiero, ANJALI-C) Medications Current Inpatient Medications Medications (Trade) Dose Ordered Sig/Nathalia Route Start Time Stop Time Status Last Admin Dose Admin Al Hydrox/Mg Hydrox/Simethicone (Maalox Max Susp) 15 ml Q4H PRN PO 11/23/17 17:45 12/23/17 17:44 Magnesium Hydroxide (Milk Of Magnesia Susp) 30 ml Q12H PRN PO 11/23/17 17:45 12/23/17 17:44 Ondansetron HCl (Zofran Inj) 4 mg Q6H PRN IV 11/23/17 17:45 12/23/17 17:44 Polyethylene (Miralax Powder Packet) 17 gm DAILY PRN PO 11/23/17 17:45 12/23/17 17:44 Insulin Aspart (novoLOG ASPART) SLIDING SCALE If C... ACHS SC 11/23/17 21:00 12/23/17 20:59 12/01/17 13:20 7 UNITS Glucose (Glucose 40% Gel) 15-30 GRAMS 15 GRAMS... UD PRN PO 11/23/17 17:45 12/23/17 17:44 Glucose (Glucose Chew Tab) 4-8 Tablets 4 Tabl... UD PRN PO 11/23/17 17:45 12/23/17 17:44 Dextrose (Dextrose 50% 50ML Syringe) 25-50ML OF 50% DW IV FOR... UD PRN IV 11/23/17 17:45 12/23/17 17:44 Glucagon (Glucagon Inj) 1 mg UD PRN SQ 11/23/17 17:45 12/23/17 17:44 Albuterol Sulfate (Ventolin 0.083% 2.5MG/3ML Neb) 2.5 mg Q4H PRN INH 11/23/17 17:45 12/23/17 17:44 11/27/17 22:13 2.5 MG Atorvastatin Calcium (Lipitor Tab) 10 mg DAILY PO 11/24/17 09:00 12/24/17 08:59 12/01/17 08:09 10 MG Fluoxetine HCl (Prozac Cap) 40 mg QAM PO 11/24/17 09:00 12/24/17 08:59 12/01/17 08:08 40 MG Levalbuterol (Xopenex 1.25MG/ 3ML Neb) 1.25 mg TID INH 11/23/17 21:00 12/23/17 20:59 12/01/17 14:10 1.25 MG Ondansetron HCl (Zofran Tab) 4 mg Q4 PRN PO 11/23/17 17:45 12/23/17 17:44 Oxycodone HCl (Roxicodone Immediate Rel Tab) 5 mg Q4H PRN PO 11/23/17 17:45 12/07/17 17:44 12/01/17 13:07 5 MG Pantoprazole Sodium (Protonix Tab) 40 mg QAM PO 11/24/17 09:00 12/24/17 08:59 12/01/17 08:08 40 MG Propranolol HCl (Inderal Tab) 10 mg DAILY PO 11/24/17 09:00 12/24/17 08:59 12/01/17 08:09 10 MG Insulin Glargine (Lantus Solostar Pen) 20 units BID SC 11/23/17 21:00 12/23/17 20:59 12/01/17 08:13 20 UNITS Rifaximin (Xifaxan Tab) 550 mg BID PO 11/24/17 09:00 12/24/17 08:59 12/01/17 08:09 550 MG Spironolactone (Aldactone Tab) 100 mg QAM PO 11/27/17 09:00 12/27/17 08:59 12/01/17 08:09 100 MG Furosemide (Lasix Tab) 40 mg QAM PO 11/27/17 09:00 12/27/17 08:59 12/01/17 08:08 40 MG Lactulose (Chronulac Syrup) 30 gm BID PO 11/27/17 21:00 12/23/17 20:59 11/30/17 20:48 30 GM Prednisone (PredniSONE TAB) 20 mg DAILY PO 11/28/17 09:00 12/28/17 08:59 12/01/17 08:09 20 MG Ceftriaxone Sodium 1 gm/ Dextrose 50 ml @ 100 mls/hr Q24H IV 11/29/17 18:00 12/09/17 17:59 11/30/17 17:57 100 MLS/HR Vancomycin HCl (Consult) 1 ea UD PRN N/A 11/29/17 18:15 12/29/17 18:14 Vancomycin HCl 1250 mg/Sodium Chloride 275 ml @ 125 mls/hr Q24H IV 11/30/17 21:00 12/09/17 23:59 11/30/17 20:56 125 MLS/HR Acetaminophen (Tylenol Tab) 650 mg Q8H PRN PO 11/30/17 18:00 12/23/17 17:44 11/30/17 20:48 650 MG Enoxaparin Sodium (Lovenox Inj) 120 mg DAILY@1800 SQ 11/30/17 18:00 12/30/17 17:59 11/30/17 18:43 120 MG Gadobutrol (Gadavist) 8 mmol UD PRN IV 12/01/17 12:45 12/05/17 12:44 (Enma Ruggiero, KEO) Objective Vital Signs Date Time Temp Pulse Resp B/P (MAP) Pulse Ox O2 Delivery O2 Flow Rate FiO2 12/01/17 15:10 36.7 72 17 105/65 (78) 95 Room Air 12/01/17 08:00 Room Air 12/01/17 07:53 36.7 100 16 125/55 (78) 94 12/01/17 07:19 72 16 93 Room Air 12/01/17 00:00 Room Air BiPAP 11/30/17 23:14 36.9 79 18 96/54 (68) 96 BiPAP 11/30/17 19:32 82 16 93 Room Air 11/30/17 19:26 36.9 78 18 107/63 (78) 93 Room Air 11/30/17 16:00 96 Room Air (Enma Ruggiero PA-C) Physical Exam General Appearance: WD/WN, no apparent distress ENT: hearing grossly normal Neck: supple, no JVD, trachea midline Respiratory/Chest: lungs clear, normal breath sounds, no respiratory distress, no accessory muscle use Cardiovascular: regular rate, rhythm Abdomen: normal bowel sounds, non tender, soft, + hernia (reducible; small mildly erthematous lesion that does not appear open under distal portion of hernia in skin fold), + pertinent finding (two paracentesis sites of L abdomen with pressure dressing C/D/I) Neurologic/Psychiatric: alert, oriented x 3 Skin: normal color, warm/dry (Enma Ruggiero, PA-C) Laboratory Results Last 24 Hours Test 11/30/17 16:10 11/30/17 17:45 11/30/17 20:13 12/01/17 07:06 Bedside Glucose 172 mg/dl 302 mg/dl Urine Color YELLOW Urine Appearance CLOUDY Urine pH 5.5 Urine Specific [place] 1.012 Urine Protein NEG Urine Glucose (UA) NEG Urine Ketones NEG Urine Occult Blood 2+ Urine Nitrite NEG Urine Bilirubin NEG Urine Urobilinogen NEG Urine Leukocyte Esterase NEG Urine WBC (Auto) 1-5 /hpf Urine RBC (Auto) 5-10 /hpf Urine Hyaline Casts (Auto) 1-5 /lpf Urine Epithelial Cells (Auto) 0-5 /lpf Urine Bacteria (Auto) NEG White Blood Count 5.69 K/uL Red Blood Count 2.95 M/uL Hemoglobin 8.1 g/dL Hematocrit 24.8 % Mean Corpuscular Volume 84.1 fL Mean Corpuscular Hemoglobin 27.5 pg Mean Corpuscular Hemoglobin Concent 32.7 g/dl RDW Standard Deviation 58.6 fL RDW Coefficient of Variation 19.4 % Platelet Count 96 K/uL Mean Platelet Volume 10.0 fL Platelet Estimate DECREASED Sodium Level 135 mmol/L Potassium Level 3.9 mmol/L Chloride Level 101 mmol/L Carbon Dioxide Level 27 mmol/L Anion Gap 7.0 mmol/L Blood Urea Nitrogen 29 mg/dl Creatinine 1.42 mg/dl Est Creatinine Clear Calc Drug Dose 53.2 ml/min Estimated GFR () 60.1 Estimated GFR (Non- 51.8 BUN/Creatinine Ratio 20.7 Random Glucose 127 mg/dl Calcium Level 8.3 mg/dl Test 12/01/17 07:43 12/01/17 13:11 12/01/17 13:41 Bedside Glucose 123 mg/dl 186 mg/dl Erythrocyte Sedimentation Rate 29 mm/hr C-Reactive Protein 2.09 mg/dl (Enma Ruggiero, PA-C) Assessment and Plan Mr. 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 Acute Metabolic Encephalopathy: RESOLVED - On admission he was very lethargic and confused but did improve with waxing and waning mentation that was worse in the AM and progressively improved throughout the day; on 11/29 patient was more coherent in AM but was encephalopathic but became more lethargic throughout the day - Head CT/Ammonia/ VBG unremarkable - at baseline mentation L-Sided Abdominal Cellulitis vs Stasis: - Rocephin 1 g IV daily and Vancomycin - Diagnostic paracentesis completed - no direct indication for SBP - Gen Surg recommendation - suggesting possible need for tertiary evaluation of hernia but can be done as outpatient R Common Femoral DVT and Superficial Femoral Vein: - Lovenox 1.5 mg/kg daily - will need anticoagulation x 3 months - Consultation placed for Vascular Surgery - no indication for IVC filter at this time - Will need BID dosing on D/C due to insurance coverage - reporting BID dosing to be $100/month and states this is feasible x 3 months LETTY vs New Baseline Cr: - Cr rather stable but fluctuating between WNL and mild elevation 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 with Fluid Filled Collection : Seroma vs Healing Hematoma vs Abscess - Continue back brace and monitor; PRN pain medication - Consult Spine - appreciate recommendations for further evaluation Chronic Diastolic CHF: STABLE 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 with Portal HTN and Ascites and Thrombocytopenia: - Continue Lasix 40 mg daily and tolerating increased Spironolactone 100 mg daily - Lactulose 30 g BID and will continue Xifaxan 550 mg BID - GI following - appreciate further recommendations T2DM: A1c 8.4 (Sep 2017) - Lantus 20 units SC BID and SSI Sarcoidosis with Extra-Pulmonary Effects: - Ventolin Q4H PRN and Xopenex neb TID - Prednisone 20 mg daily HLD: - Atorvastatin 10 mg daily HTN: - Propranolol 10 mg daily DVT Prophylaxis: Heparin gtt Code Status: FULL RESUSCITATION Disposition: - D/C uncertain at this time - will broaden IV Abx pending response may need to further explore his back given H/O meningitis and abscess - PT/OT - likely need rehab on D/C Continued [facility] stay due to: multiple IV medications needed Discharge planning: rehab hospital (Enma Ruggiero, KEO) Attending Attestation: Pt seen/examined, chart reviewed, care plan d/w ANJALI Ruggiero. I agree w/ the chan components of her documentation except DVT proph is not heparin drip but lovenox 1.5mg/kg/day. Pt's mentation is back to baseline. Appetite is good. Only complaint is that of back pain. VSS no fever gen - chronically ill appearing, a/o x 3; looks better than yesterday skin - ecchymoses multiple areas, no jaundice; large vertical incision on abdominal wall - clean, no drainage neck - no JVD heart - RRR lungs - CTA b/l abd - mild ascites, large reducible hernia in the midline/just to left of midline, previous paracentesis puncture sites intact, left side of abdomen with no warmth; hyperpigmented skin only; BS+; nontender in any location ext - no edema back - mildly tender to palpation over multiple lumbar segments A/P: 1. met encephalopathy - resolved. Suspect some element of infection that caused the encephalopathy as mentation improved with institution of abx therapy. Diagnostic paracentesis with negative culture and normal cell counts. Recent abdominal wall cellulitis is resolved. He has a 9x8x2 fluid collection from L2-L5. Statistically this is likely a seroma, but in light of his extensive back history including past h/o epidural abscess, along w/ his immunocompromised status (prednisone use, sarcoid, cirrhosis, etc) - I am concerned this fluid collection could be infected. He remains on IV vanco and rocephin. I spoke with Dr. Gray from ortho who will consult tomorrow and give recommendations for the MRI findings. 2. RLE DVT - on lovenox 1.5mg/kg/day. 3. cirrhosis, with mild decompensation (ascites, etc) - still no evidence of hepatic encephalopathy. GI following 4. uncontrolled T2DM - adjust novolog w/ meals; cont lantus. updated at bedside Raiza NEVAREZ MD (Antoni Nevarez MD)
[2017-12-01] MEDS: ACETAMINOPHEN 325 MG TAB PO PRN (16:15)
--- NOTE | 2017-12-01 17:23 | GASTROENTEROLOGY PROGRESS NOTE ---
DATE: 12/01/2017 GASTROENTEROLOGY INPATIENT PROGRESS NOTE SUBJECTIVE: The Chart reviewed, patient examined. The patient is resting comfortably in bed, is awake, alert and oriented x3. The patient reports that his stools have been loose today and has not had his dose of lactulose. He has been eating and is tolerating this reasonably well, but mostly because he does not like its taste. He denies any melena or bright red blood per rectum and has not had nausea or vomiting. His breathing is comfortable. The patient has had 2 paracenteses this weekend this week, one on November 28 and yesterday November 30, 3.8 liters were removed on the and for diagnostics purposes 120 mL of straw-colored fluid. The microbiology for this shows no growth to date on Gram stain. The patient has also had no blood cultures positive to date. On November 30, the cell count showed a peritoneal white blood cells of 223 for which 11.9% were PMNs. This does not suggested spontaneous bacterial peritonitis. His other laboratories show a BUN and creatinine of 29 and 1.42. Blood sugars range from 123-302, although there is an elevated sed rate and C-reactive protein (patient has sarcoid). CURRENT MEDICATIONS: Include Desenex powder, vancomycin IV, Rocephin IV, prednisone for sarcoid, lactulose 45 mL twice daily, spironolactone 100 mg daily, Lasix 40 mg dairy, Lipitor 10 mg daily, Prozac 40 mg daily, pantoprazole 40 mg daily, Xifaxan 550 twice daily, and insulin. REVIEW OF SYSTEMS: Otherwise noncontributory based on 13-point exam except for mentioned above. PHYSICAL EXAMINATION: GENERAL: The patient is awake, alert and oriented x3. HEENT: Sclerae and conjunctivae are somewhat pale. VITAL SIGNS: He is afebrile 36.7, blood pressure 105/65, respirations 17, pulse 72 and room air 95%. LUNGS: Clear to auscultation without wheezes. HEART: Normal S1, S2. ABDOMEN: Soft, distended, mildly tympanitic. There is no rebound or guarding. I do not appreciate hepatosplenomegaly. There is a sizeable left groin ventral wall hernia. EXTREMITIES: Without clubbing, cyanosis or edema. RECTAL: Deferred. IMPRESSION AND PLAN: The patient with cirrhosis associated with alcohol and possibly sarcoid effect. His blood count has been slowly drifting downward, but there are no overt signs of blood loss from the gastrointestinal tract. Would continue to monitor and continue current therapies with a careful assessment of his renal function. Fluid restriction to 2 liters daily and 2 gram sodium diet recommended. Dr. Osborne will be covering the GI service on the weekend. AMBIKA
[2017-12-01] MEDS: CEFTRIAXONE SOD INJ 1 GM in DEXTROSE 5% ADD-VANTAGE 50ML 50 ML IV SCH (17:38)
[2017-12-01] MEDS: ENOXAPARIN 120 MG/0.8 ML SYR SQ SCH (17:41)
[2017-12-01] MEDS ORDERED: VANCOMYCIN TROUGH ONE (20:30)
[2017-12-01] MEDS: MICONAZOLE NITRATE POWDER 43 GM EXT SCH (21:12)
[2017-12-01] MEDS: VANCOMYCIN INJ 1,250 MG in SODIUM CHLORIDE 0.9% 250ML 250 ML IV SCH (21:20)
[2017-12-02] VITALS (7 sets, daily range): BP systolic 113–129; BP diastolic 63–72; PULSE 50–80; TEMP 36.5–36.8; O2SAT 94–97
[2017-12-02] MEDS: LEVALBUTEROL 1.25MG/3ML NEB INH SCH ×3 (07:39→19:34)
[2017-12-02 07:59] LABS: HEMATOCRIT 25.3 % (42-52); HEMOGLOBIN 8.1 g/dL (14.0-18.0); MEAN CELL VOLUME 84.3 fL (80-100); MEAN PLATELET VOLUME 10.1 fL (7.4-10.4); PLATELET COUNT 105 K/uL (130-400); RED CELL DISTRIBUTION WIDTH CV 19.1 % (11.5-14.5); RED CELL DISTRIBUTION WIDTH SD 58.6 fL (36.4-46.3); WHITE BLOOD COUNT 6.16 K/uL (4.8-10.8)
[2017-12-02] MEDS: INSULIN ASPART 100 UNITS/ML 3 ML PEN SC SCH ×4 (08:03→21:07)
[2017-12-02] MEDS: INSULIN GLARGINE SOLOSTAR 100 UNITS/ML 3 ML PEN SC SCH ×2 (08:04→21:08)
[2017-12-02] MEDS: FLUOXETINE HCL 20 MG CAP PO SCH (08:05)
[2017-12-02] MEDS: SPIRONOLACTONE 100 MG TAB PO SCH (08:06)
[2017-12-02] MEDS: FUROSEMIDE 40 MG TAB PO SCH (08:06)
[2017-12-02] MEDS: PANTOprazole SOD 40 MG TAB PO SCH (08:06)
[2017-12-02] MEDS: PROPRANOLOL HCL 10 MG TAB PO SCH (08:08)
[2017-12-02] MEDS: ATORVASTATIN 10 MG TAB PO SCH (08:08)
[2017-12-02] MEDS: RIFAXIMIN TAB 550 MG TAB PO SCH ×2 (08:08→20:51)
[2017-12-02] MEDS: LACTULOSE SYRUP 30 GM/45 ML UDP PO SCH ×3 (08:09→21:00)
[2017-12-02 08:29] LABS: CALCIUM 8.5 mg/dl (8.5-10.1); CREATININE 1.47 mg/dl (0.60-1.40); POTASSIUM 4.4 mmol/L (3.5-5.1)
[2017-12-02] MEDS: MICONAZOLE NITRATE POWDER 43 GM EXT SCH ×2 (11:59→20:50)
[2017-12-02] MEDS: ACETAMINOPHEN 325 MG TAB PO PRN (11:59)
--- NOTE | 2017-12-02 13:36 | Surgery Consultation ---
Consultation Date of Consultation: Dec 02, 2017. 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 pt denies abdominal pain, no fever, no active bleeding on abdominal wall, pt has apresor dressing on abdominal wall, Past Medical/Surgical History Medical Problems: (1) Altered mental status Status: Acute (2) Ascites Status: Acute (3) Cellulitis of left abdominal wall Status: Acute (4) Dvt femoral (deep venous thrombosis) Status: Acute (5) Fall in home Status: Acute (6) Fever Status: Acute (7) GI bleed Status: Acute (8) Hepatic encephalopathy Status: Acute (9) Hypokalemia Status: Acute (10) Hypotension Status: Acute (11) Hypoxia Status: Acute (12) Immunocompromised Status: Acute (13) Lactic acidosis Status: Acute (14) Left leg cellulitis Status: Acute (15) Lumbar compression fracture Status: Acute (16) Lumbar disc herniation with radiculopathy Status: Acute (17) Orthostasis Status: Acute (18) Pneumonia Status: Acute (19) Sepsis Status: Acute (20) Severe sepsis Status: Acute (21) Tenosynovitis, de Quervain Status: Acute (22) Vomiting Status: Acute Family History Patient reports no known family medical history. Social History Smoking Status: Never Smoker Smokeless Tobacco Use: No Alcohol Use: Previous heavy drinker Drug Use: none Marital Status: Housing Status: lives with family Occupation Status: retired Allergies Coded Allergies: Celecoxib (Verified Allergy, Intermediate, HIVES, 05/02/17) Penicillins (Verified Allergy, Intermediate, HIVES, 05/02/17) Home Medications Scheduled Atorvastatin (Lipitor), 10 MG PO DAILY Cyclosporine (Ophth) (Restasis), 1 DROP OPB BID Fluoxetine (Prozac), 40 MG PO QAM Furosemide (Lasix), 40 MG PO BID Insulin Aspart (Novolog Penfill), SC AC Insulin Glargine (Lantus), 20 UNITS SC BID Lactulose (Chronulac), 30 ML PO BID Levalbuterol (Levalbuterol HCl), 1.25 MG INH TID Pantoprazole (Protonix), 40 MG PO QAM Potassium Ext Rel (Klor-Con), 20 MEQ PO BIDM Prednisone (Prednisone), 20 MG PO QAM Propranolol (Inderal), 10 MG PO DAILY Spironolactone (Spironolactone), 50 MG PO DAILY Scheduled PRN Acetaminophen (Tylenol), 500 MG PO Q4H PRN for Pain Albuterol Sulf (Albuterol Sulfate), 2.5 MG INH Q4H PRN for SOB/Wheezing Ondansetron Hcl (Zofran), 4 MG PO Q4 PRN for Nausea Oxycodone Ir (Roxicodone Ir), 5 MG PO Q4H PRN for Moderate Pain Current Inpatient Medications Current Inpatient Medications Medications (Trade) Dose Ordered Sig/Nathalia Route Start Time Stop Time Status Last Admin Dose Admin Al Hydrox/Mg Hydrox/Simethicone (Maalox Max Susp) 15 ml Q4H PRN PO 11/23/17 17:45 12/23/17 17:44 Magnesium Hydroxide (Milk Of Magnesia Susp) 30 ml Q12H PRN PO 11/23/17 17:45 12/23/17 17:44 Ondansetron HCl (Zofran Inj) 4 mg Q6H PRN IV 11/23/17 17:45 12/23/17 17:44 Polyethylene (Miralax Powder Packet) 17 gm DAILY PRN PO 11/23/17 17:45 12/23/17 17:44 Insulin Aspart (novoLOG ASPART) SLIDING SCALE If C... ACHS SC 11/23/17 21:00 12/23/17 20:59 12/02/17 12:46 4 UNITS Glucose (Glucose 40% Gel) 15-30 GRAMS 15 GRAMS... UD PRN PO 11/23/17 17:45 12/23/17 17:44 Glucose (Glucose Chew Tab) 4-8 Tablets 4 Tabl... UD PRN PO 11/23/17 17:45 12/23/17 17:44 Dextrose (Dextrose 50% 50ML Syringe) 25-50ML OF 50% DW IV FOR... UD PRN IV 11/23/17 17:45 12/23/17 17:44 Glucagon (Glucagon Inj) 1 mg UD PRN SQ 11/23/17 17:45 12/23/17 17:44 Albuterol Sulfate (Ventolin 0.083% 2.5MG/3ML Neb) 2.5 mg Q4H PRN INH 11/23/17 17:45 12/23/17 17:44 11/27/17 22:13 2.5 MG Atorvastatin Calcium (Lipitor Tab) 10 mg DAILY PO 11/24/17 09:00 12/24/17 08:59 12/02/17 08:08 10 MG Fluoxetine HCl (Prozac Cap) 40 mg QAM PO 11/24/17 09:00 12/24/17 08:59 12/02/17 08:05 40 MG Levalbuterol (Xopenex 1.25MG/ 3ML Neb) 1.25 mg TID INH 11/23/17 21:00 12/23/17 20:59 12/02/17 07:39 1.25 MG Ondansetron HCl (Zofran Tab) 4 mg Q4 PRN PO 11/23/17 17:45 12/23/17 17:44 12/02/17 11:59 4 MG Oxycodone HCl (Roxicodone Immediate Rel Tab) 5 mg Q4H PRN PO 11/23/17 17:45 12/07/17 17:44 12/01/17 13:07 5 MG Pantoprazole Sodium (Protonix Tab) 40 mg QAM PO 11/24/17 09:00 12/24/17 08:59 12/02/17 08:06 40 MG Propranolol HCl (Inderal Tab) 10 mg DAILY PO 11/24/17 09:00 12/24/17 08:59 12/02/17 08:08 10 MG Insulin Glargine (Lantus Solostar Pen) 20 units BID SC 11/23/17 21:00 12/23/17 20:59 12/02/17 08:04 20 UNITS Rifaximin (Xifaxan Tab) 550 mg BID PO 11/24/17 09:00 12/24/17 08:59 12/02/17 08:08 550 MG Spironolactone (Aldactone Tab) 100 mg QAM PO 11/27/17 09:00 12/27/17 08:59 12/02/17 08:06 100 MG Furosemide (Lasix Tab) 40 mg QAM PO 11/27/17 09:00 12/27/17 08:59 12/02/17 08:06 40 MG Lactulose (Chronulac Syrup) 30 gm BID PO 11/27/17 21:00 12/23/17 20:59 12/02/17 08:09 30 GM Prednisone (PredniSONE TAB) 20 mg DAILY PO 11/28/17 09:00 12/28/17 08:59 12/02/17 08:08 20 MG Ceftriaxone Sodium 1 gm/ Dextrose 50 ml @ 100 mls/hr Q24H IV 11/29/17 18:00 12/09/17 17:59 12/01/17 17:38 100 MLS/HR Vancomycin HCl (Consult) 1 ea UD PRN N/A 11/29/17 18:15 12/29/17 18:14 Vancomycin HCl 1250 mg/Sodium Chloride 275 ml @ 125 mls/hr Q24H IV 11/30/17 21:00 12/09/17 23:59 12/01/17 21:20 125 MLS/HR Acetaminophen (Tylenol Tab) 650 mg Q8H PRN PO 11/30/17 18:00 12/23/17 17:44 12/02/17 11:59 650 MG Enoxaparin Sodium (Lovenox Inj) 120 mg DAILY@1800 SQ 11/30/17 18:00 12/30/17 17:59 12/01/17 17:41 120 MG Gadobutrol (Gadavist) 8 mmol UD PRN IV 12/01/17 12:45 12/05/17 12:44 Miconazole Nitrate (Desenex Powder) 1 appln BID EXT 12/01/17 21:00 12/31/17 20:59 12/02/17 11:59 1 APPLN Review of Systems Constitutional: No fever, No chills, No sweats, No weight loss, No weakness, No fatigue, No problem reported Eyes: No worsening of vision, No eye pain, No redness, No discharge, No diplopia, No problem reported ENT: No hearing loss, No unusual epistaxis, No nasal symptoms, No sore throat, No tinnitus, No dental problems, No trouble swallowing, No problem reported Respiratory: No cough, No sputum, No wheezing, No shortness of breath, No dyspnea on exertion, No dyspnea at rest, No hemoptysis, No problem reported Cardiovascular: No chest pain, No orthopnea, No PND, No edema, No claudication , No palpitations, No problem reported Abdomen: + problem reported Neurologic: No memory loss, No paralysis, No weakness, No numbness/tingling, No vertigo, No balance problems, No problem reported Psychiatric: No depression symptoms, No anhedonism, No anxiety, No insomnia, No substance abuse, No problem reported Hematologic / Lymphatic: No abnormal bleeding/bruising, No clotting problems, No swollen lymph nodes, No night sweats, No problem reported Physical Exam Date Time Temp Pulse Resp B/P (MAP) Pulse Ox O2 Delivery O2 Flow Rate FiO2 12/02/17 07:56 36.5 71 18 113/67 (82) 94 12/02/17 07:55 Room Air 12/02/17 07:41 72 16 95 Room Air 12/01/17 23:41 CPAP 12/01/17 22:54 76 96 21 12/01/17 22:25 36.7 75 18 93/60 (71) 91 Room Air 12/01/17 19:03 71 16 96 Room Air 12/01/17 16:00 95 Room Air CPAP 12/01/17 15:10 36.7 72 17 105/65 (78) 95 Room Air General Appearance: WD/WN, no apparent distress Head: normocephalic Eyes: normal inspection ENT: normal ENT inspection Neck: supple, no adenopathy Respiratory/Chest: chest non-tender, lungs clear Cardiovascular: regular rate, rhythm, no edema, no gallop Abdomen/GI: normal bowel sounds, non tender, soft (ventral hernia, no active bleeding on abdominal wall, ) Extremities/Musculoskelatal: normal inspection, no calf tenderness, normal capillary refill Neurologic/Psych: no motor/sensory deficits, alert, normal mood/affect Skin: normal color, warm/dry, no rash Laboratory Results Last 24 Hours Test 12/01/17 13:41 12/01/17 16:36 12/01/17 20:05 12/01/17 20:22 Erythrocyte Sedimentation Rate 29 mm/hr C-Reactive Protein 2.09 mg/dl Bedside Glucose 291 mg/dl 276 mg/dl Vancomycin Level Trough 14.9 mcg/ml Test 12/02/17 07:47 12/02/17 07:48 12/02/17 11:32 Bedside Glucose 103 mg/dl 161 mg/dl White Blood Count 6.16 K/uL Red Blood Count 3.00 M/uL Hemoglobin 8.1 g/dL Hematocrit 25.3 % Mean Corpuscular Volume 84.3 fL Mean Corpuscular Hemoglobin 27.0 pg Mean Corpuscular Hemoglobin Concent 32.0 g/dl RDW Standard Deviation 58.6 fL RDW Coefficient of Variation 19.1 % Platelet Count 105 K/uL Mean Platelet Volume 10.1 fL Sodium Level 136 mmol/L Potassium Level 4.4 mmol/L Chloride Level 103 mmol/L Carbon Dioxide Level 29 mmol/L Anion Gap 5.0 mmol/L Blood Urea Nitrogen 30 mg/dl Creatinine 1.47 mg/dl Est Creatinine Clear Calc Drug Dose 50.9 ml/min Estimated GFR () 57.6 Estimated GFR (Non- 49.7 BUN/Creatinine Ratio 20.7 Random Glucose 104 mg/dl Calcium Level 8.5 mg/dl Chemistry Specimen Hemolysis Assessment & Plan pt is a 62 yo male who has PMHx of 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 pt denies abdominal pain, no fever, no active bleeding on abdominal wall, pt has apresor dressing on abdominal wall, no active bleeding on abdominal wall now keep the pressor dressing on will F/U no indication for suturing bleeding,
--- NOTE | 2017-12-02 14:00 | Orthopedic Consultation ---
Orthopedic Consultation Date of Consultation: Dec 02, 2017. Attending Physician: Antoni Nevarez MD Reason for Consultation: Back pain History of Present Illness This is a 62-year-old male well-known to me the presents to the hospital changes in mental status. He does have a history of undergoing multi-level and multiple lumbar surgical procedures in light of a postop lumbar infection. He required significant lumbar reconstruction and stabilization. Updated imaging of the lumbar spine demonstrates instrumentation be in place appropriate alignment on CAT scan however MRI demonstrates evidence of a fluid collection posterior to the operative bed extending roughly L2 to to the L5 regions. With his immunocompromise status there is significant concern that this fluid collection may be in fact infected. Upon my discussion with him today he is post dialysis. Is quite lethargic. He is not complaining of any back pain this time. He's not cooperative with exam secondary to lethargy. Past Medical/Surgical History Medical Problems: (1) Altered mental status Status: Acute (2) Ascites Status: Acute (3) Cellulitis of left abdominal wall Status: Acute (4) Dvt femoral (deep venous thrombosis) Status: Acute (5) Fall in home Status: Acute (6) Fever Status: Acute (7) GI bleed Status: Acute (8) Hepatic encephalopathy Status: Acute (9) Hypokalemia Status: Acute (10) Hypotension Status: Acute (11) Hypoxia Status: Acute (12) Immunocompromised Status: Acute (13) Lactic acidosis Status: Acute (14) Left leg cellulitis Status: Acute (15) Lumbar compression fracture Status: Acute (16) Lumbar disc herniation with radiculopathy Status: Acute (17) Orthostasis Status: Acute (18) Pneumonia Status: Acute (19) Sepsis Status: Acute (20) Severe sepsis Status: Acute (21) Tenosynovitis, de Quervain Status: Acute (22) Vomiting Status: Acute Family History Patient reports no known family medical history. Social History Smoking Status: Never Smoker Smokeless Tobacco Use: No Alcohol Use: Previous heavy drinker Drug Use: none Marital Status: Housing Status: lives with family Occupation Status: retired Allergies Coded Allergies: Celecoxib (Verified Allergy, Intermediate, HIVES, 05/02/17) Penicillins (Verified Allergy, Intermediate, HIVES, 05/02/17) Home Medications Scheduled Atorvastatin (Lipitor), 10 MG PO DAILY Cyclosporine (Ophth) (Restasis), 1 DROP OPB BID Fluoxetine (Prozac), 40 MG PO QAM Furosemide (Lasix), 40 MG PO BID Insulin Aspart (Novolog Penfill), SC AC Insulin Glargine (Lantus), 20 UNITS SC BID Lactulose (Chronulac), 30 ML PO BID Levalbuterol (Levalbuterol HCl), 1.25 MG INH TID Pantoprazole (Protonix), 40 MG PO QAM Potassium Ext Rel (Klor-Con), 20 MEQ PO BIDM Prednisone (Prednisone), 20 MG PO QAM Propranolol (Inderal), 10 MG PO DAILY Spironolactone (Spironolactone), 50 MG PO DAILY Scheduled PRN Acetaminophen (Tylenol), 500 MG PO Q4H PRN for Pain Albuterol Sulf (Albuterol Sulfate), 2.5 MG INH Q4H PRN for SOB/Wheezing Ondansetron Hcl (Zofran), 4 MG PO Q4 PRN for Nausea Oxycodone Ir (Roxicodone Ir), 5 MG PO Q4H PRN for Moderate Pain Current Inpatient Medications Current Inpatient Medications Medications (Trade) Dose Ordered Sig/Nathalia Route Start Time Stop Time Status Last Admin Dose Admin Al Hydrox/Mg Hydrox/Simethicone (Maalox Max Susp) 15 ml Q4H PRN PO 11/23/17 17:45 12/23/17 17:44 Magnesium Hydroxide (Milk Of Magnesia Susp) 30 ml Q12H PRN PO 11/23/17 17:45 12/23/17 17:44 Ondansetron HCl (Zofran Inj) 4 mg Q6H PRN IV 11/23/17 17:45 12/23/17 17:44 Polyethylene (Miralax Powder Packet) 17 gm DAILY PRN PO 11/23/17 17:45 12/23/17 17:44 Insulin Aspart (novoLOG ASPART) SLIDING SCALE If C... ACHS SC 11/23/17 21:00 12/23/17 20:59 12/02/17 12:46 4 UNITS Glucose (Glucose 40% Gel) 15-30 GRAMS 15 GRAMS... UD PRN PO 11/23/17 17:45 12/23/17 17:44 Glucose (Glucose Chew Tab) 4-8 Tablets 4 Tabl... UD PRN PO 11/23/17 17:45 12/23/17 17:44 Dextrose (Dextrose 50% 50ML Syringe) 25-50ML OF 50% DW IV FOR... UD PRN IV 11/23/17 17:45 12/23/17 17:44 Glucagon (Glucagon Inj) 1 mg UD PRN SQ 11/23/17 17:45 12/23/17 17:44 Albuterol Sulfate (Ventolin 0.083% 2.5MG/3ML Neb) 2.5 mg Q4H PRN INH 11/23/17 17:45 12/23/17 17:44 11/27/17 22:13 2.5 MG Atorvastatin Calcium (Lipitor Tab) 10 mg DAILY PO 11/24/17 09:00 12/24/17 08:59 12/02/17 08:08 10 MG Fluoxetine HCl (Prozac Cap) 40 mg QAM PO 11/24/17 09:00 12/24/17 08:59 12/02/17 08:05 40 MG Levalbuterol (Xopenex 1.25MG/ 3ML Neb) 1.25 mg TID INH 11/23/17 21:00 12/23/17 20:59 12/02/17 07:39 1.25 MG Ondansetron HCl (Zofran Tab) 4 mg Q4 PRN PO 11/23/17 17:45 12/23/17 17:44 12/02/17 11:59 4 MG Oxycodone HCl (Roxicodone Immediate Rel Tab) 5 mg Q4H PRN PO 11/23/17 17:45 12/07/17 17:44 12/01/17 13:07 5 MG Pantoprazole Sodium (Protonix Tab) 40 mg QAM PO 11/24/17 09:00 12/24/17 08:59 12/02/17 08:06 40 MG Propranolol HCl (Inderal Tab) 10 mg DAILY PO 11/24/17 09:00 12/24/17 08:59 12/02/17 08:08 10 MG Insulin Glargine (Lantus Solostar Pen) 20 units BID SC 11/23/17 21:00 12/23/17 20:59 12/02/17 08:04 20 UNITS Rifaximin (Xifaxan Tab) 550 mg BID PO 11/24/17 09:00 12/24/17 08:59 12/02/17 08:08 550 MG Spironolactone (Aldactone Tab) 100 mg QAM PO 11/27/17 09:00 12/27/17 08:59 12/02/17 08:06 100 MG Furosemide (Lasix Tab) 40 mg QAM PO 11/27/17 09:00 12/27/17 08:59 12/02/17 08:06 40 MG Lactulose (Chronulac Syrup) 30 gm BID PO 11/27/17 21:00 12/23/17 20:59 12/02/17 08:09 30 GM Prednisone (PredniSONE TAB) 20 mg DAILY PO 11/28/17 09:00 12/28/17 08:59 12/02/17 08:08 20 MG Ceftriaxone Sodium 1 gm/ Dextrose 50 ml @ 100 mls/hr Q24H IV 11/29/17 18:00 12/09/17 17:59 12/01/17 17:38 100 MLS/HR Vancomycin HCl (Consult) 1 ea UD PRN N/A 11/29/17 18:15 12/29/17 18:14 Vancomycin HCl 1250 mg/Sodium Chloride 275 ml @ 125 mls/hr Q24H IV 11/30/17 21:00 12/09/17 23:59 12/01/17 21:20 125 MLS/HR Acetaminophen (Tylenol Tab) 650 mg Q8H PRN PO 11/30/17 18:00 12/23/17 17:44 12/02/17 11:59 650 MG Enoxaparin Sodium (Lovenox Inj) 120 mg DAILY@1800 SQ 11/30/17 18:00 12/30/17 17:59 12/01/17 17:41 120 MG Gadobutrol (Gadavist) 8 mmol UD PRN IV 12/01/17 12:45 12/05/17 12:44 Miconazole Nitrate (Desenex Powder) 1 appln BID EXT 12/01/17 21:00 12/31/17 20:59 12/02/17 11:59 1 APPLN Physical Exam Date Time Temp Pulse Resp B/P (MAP) Pulse Ox O2 Delivery O2 Flow Rate FiO2 12/02/17 07:56 36.5 71 18 113/67 (82) 94 12/02/17 07:55 Room Air 12/02/17 07:41 72 16 95 Room Air 12/01/17 23:41 CPAP 12/01/17 22:54 76 96 21 12/01/17 22:25 36.7 75 18 93/60 (71) 91 Room Air 12/01/17 19:03 71 16 96 Room Air 12/01/17 16:00 95 Room Air CPAP 12/01/17 15:10 36.7 72 17 105/65 (78) 95 Room Air On exam he has a bandage on his abdomen secondary to a paracentesis procedure. The anterior incision for the lumbar procedure appears to be healed. He demonstrates lower extremities to be low neurologically intact though with poor effort. Laboratory Results Last 24 Hours Test 12/01/17 16:36 12/01/17 20:05 12/01/17 20:22 12/02/17 07:47 Bedside Glucose 291 mg/dl 276 mg/dl 103 mg/dl Vancomycin Level Trough 14.9 mcg/ml Test 12/02/17 07:48 12/02/17 11:32 White Blood Count 6.16 K/uL Red Blood Count 3.00 M/uL Hemoglobin 8.1 g/dL Hematocrit 25.3 % Mean Corpuscular Volume 84.3 fL Mean Corpuscular Hemoglobin 27.0 pg Mean Corpuscular Hemoglobin Concent 32.0 g/dl RDW Standard Deviation 58.6 fL RDW Coefficient of Variation 19.1 % Platelet Count 105 K/uL Mean Platelet Volume 10.1 fL Sodium Level 136 mmol/L Potassium Level 4.4 mmol/L Chloride Level 103 mmol/L Carbon Dioxide Level 29 mmol/L Anion Gap 5.0 mmol/L Blood Urea Nitrogen 30 mg/dl Creatinine 1.47 mg/dl Est Creatinine Clear Calc Drug Dose 50.9 ml/min Estimated GFR () 57.6 Estimated GFR (Non- 49.7 BUN/Creatinine Ratio 20.7 Random Glucose 104 mg/dl Calcium Level 8.5 mg/dl Chemistry Specimen Hemolysis Bedside Glucose 161 mg/dl Assessment & Plan Assessment status post multiple lumbar procedures secondary to postoperative infection. Plan at this time he certainly has evidence of fluid collection throughout the lumbar spine without evidence of thecal impression. While this would be a normal finding postoperatively and consistent with seroma there is a high-level suspicion that this could in fact be the beginnings of or a source of infection. He's responded to IV antibiotics over the past few days. At this time we may need to consider nonurgent follow-up with his surgeons at [facility]. They may consider CT-guided drainage of the fluid collection for culture versus formal I&D. This time I'll be very hesitant to take him to surgery and manage his issues at [facility].
--- NOTE | 2017-12-02 15:14 | Gastroenterology Progress Note ---
Progress Note Date of Service: Dec 02, 2017 Subjective Pt evaluation today including: conversation w/ patient, physical exam, chart review, lab review, review of studies, review of inpatient medication list CC f/u ascites, hepatic encephalopathy HPI Pt alert. States he is nauseated but no vomiting and is eating some solid food. No abd pain. Per care trends and nurse coming on now no evidence of black nor bloody stools Review of Systems Respiratory: No shortness of breath Cardiac: No chest pain Medications Current Inpatient Medications Medications (Trade) Dose Ordered Sig/Nathalia Route Start Time Stop Time Status Last Admin Dose Admin Al Hydrox/Mg Hydrox/Simethicone (Maalox Max Susp) 15 ml Q4H PRN PO 11/23/17 17:45 12/23/17 17:44 Magnesium Hydroxide (Milk Of Magnesia Susp) 30 ml Q12H PRN PO 11/23/17 17:45 12/23/17 17:44 Ondansetron HCl (Zofran Inj) 4 mg Q6H PRN IV 11/23/17 17:45 12/23/17 17:44 Polyethylene (Miralax Powder Packet) 17 gm DAILY PRN PO 11/23/17 17:45 12/23/17 17:44 Insulin Aspart (novoLOG ASPART) SLIDING SCALE If C... ACHS SC 11/23/17 21:00 12/23/17 20:59 12/02/17 12:46 4 UNITS Glucose (Glucose 40% Gel) 15-30 GRAMS 15 GRAMS... UD PRN PO 11/23/17 17:45 12/23/17 17:44 Glucose (Glucose Chew Tab) 4-8 Tablets 4 Tabl... UD PRN PO 11/23/17 17:45 12/23/17 17:44 Dextrose (Dextrose 50% 50ML Syringe) 25-50ML OF 50% DW IV FOR... UD PRN IV 11/23/17 17:45 12/23/17 17:44 Glucagon (Glucagon Inj) 1 mg UD PRN SQ 11/23/17 17:45 12/23/17 17:44 Albuterol Sulfate (Ventolin 0.083% 2.5MG/3ML Neb) 2.5 mg Q4H PRN INH 11/23/17 17:45 12/23/17 17:44 11/27/17 22:13 2.5 MG Atorvastatin Calcium (Lipitor Tab) 10 mg DAILY PO 11/24/17 09:00 12/24/17 08:59 12/02/17 08:08 10 MG Fluoxetine HCl (Prozac Cap) 40 mg QAM PO 11/24/17 09:00 12/24/17 08:59 12/02/17 08:05 40 MG Levalbuterol (Xopenex 1.25MG/ 3ML Neb) 1.25 mg TID INH 11/23/17 21:00 12/23/17 20:59 12/02/17 14:26 1.25 MG Ondansetron HCl (Zofran Tab) 4 mg Q4 PRN PO 11/23/17 17:45 12/23/17 17:44 12/02/17 11:59 4 MG Oxycodone HCl (Roxicodone Immediate Rel Tab) 5 mg Q4H PRN PO 11/23/17 17:45 12/07/17 17:44 12/01/17 13:07 5 MG Pantoprazole Sodium (Protonix Tab) 40 mg QAM PO 11/24/17 09:00 12/24/17 08:59 12/02/17 08:06 40 MG Propranolol HCl (Inderal Tab) 10 mg DAILY PO 11/24/17 09:00 12/24/17 08:59 12/02/17 08:08 10 MG Insulin Glargine (Lantus Solostar Pen) 20 units BID SC 11/23/17 21:00 12/23/17 20:59 12/02/17 08:04 20 UNITS Rifaximin (Xifaxan Tab) 550 mg BID PO 11/24/17 09:00 12/24/17 08:59 12/02/17 08:08 550 MG Spironolactone (Aldactone Tab) 100 mg QAM PO 11/27/17 09:00 12/27/17 08:59 12/02/17 08:06 100 MG Furosemide (Lasix Tab) 40 mg QAM PO 11/27/17 09:00 12/27/17 08:59 12/02/17 08:06 40 MG Lactulose (Chronulac Syrup) 30 gm BID PO 11/27/17 21:00 12/23/17 20:59 12/02/17 08:09 30 GM Prednisone (PredniSONE TAB) 20 mg DAILY PO 11/28/17 09:00 12/28/17 08:59 12/02/17 08:08 20 MG Ceftriaxone Sodium 1 gm/ Dextrose 50 ml @ 100 mls/hr Q24H IV 11/29/17 18:00 12/09/17 17:59 12/01/17 17:38 100 MLS/HR Vancomycin HCl (Consult) 1 ea UD PRN N/A 11/29/17 18:15 12/29/17 18:14 Vancomycin HCl 1250 mg/Sodium Chloride 275 ml @ 125 mls/hr Q24H IV 11/30/17 21:00 12/09/17 23:59 12/01/17 21:20 125 MLS/HR Acetaminophen (Tylenol Tab) 650 mg Q8H PRN PO 11/30/17 18:00 12/23/17 17:44 12/02/17 11:59 650 MG Enoxaparin Sodium (Lovenox Inj) 120 mg DAILY@1800 SQ 11/30/17 18:00 12/30/17 17:59 12/01/17 17:41 120 MG Gadobutrol (Gadavist) 8 mmol UD PRN IV 12/01/17 12:45 12/05/17 12:44 Miconazole Nitrate (Desenex Powder) 1 appln BID EXT 12/01/17 21:00 12/31/17 20:59 12/02/17 11:59 1 APPLN Objective Vital Signs Date Time Temp Pulse Resp B/P (MAP) Pulse Ox O2 Delivery O2 Flow Rate FiO2 12/02/17 14:26 50 16 97 Room Air 12/02/17 07:56 36.5 71 18 113/67 (82) 94 12/02/17 07:55 Room Air 12/02/17 07:41 72 16 95 Room Air 12/01/17 23:41 CPAP 12/01/17 22:54 76 96 21 12/01/17 22:25 36.7 75 18 93/60 (71) 91 Room Air 12/01/17 19:03 71 16 96 Room Air 12/01/17 16:00 95 Room Air CPAP 12/01/17 15:10 36.7 72 17 105/65 (78) 95 Room Air Physical Exam General Appearance: WD/WN, no apparent distress Respiratory/Chest: lungs clear, normal breath sounds Cardiovascular: regular rate, rhythm, no edema Abdomen: normal bowel sounds, non tender, soft, no organomegaly, no pulsatile mass, + distended Neurologic/Psych: alert, normal mood/affect, oriented x 3 Skin: warm/dry Laboratory Results Last 24 Hours Test 12/01/17 16:36 12/01/17 20:05 12/01/17 20:22 12/02/17 07:47 Bedside Glucose 291 mg/dl 276 mg/dl 103 mg/dl Vancomycin Level Trough 14.9 mcg/ml Test 12/02/17 07:48 12/02/17 11:32 White Blood Count 6.16 K/uL Red Blood Count 3.00 M/uL Hemoglobin 8.1 g/dL Hematocrit 25.3 % Mean Corpuscular Volume 84.3 fL Mean Corpuscular Hemoglobin 27.0 pg Mean Corpuscular Hemoglobin Concent 32.0 g/dl RDW Standard Deviation 58.6 fL RDW Coefficient of Variation 19.1 % Platelet Count 105 K/uL Mean Platelet Volume 10.1 fL Sodium Level 136 mmol/L Potassium Level 4.4 mmol/L Chloride Level 103 mmol/L Carbon Dioxide Level 29 mmol/L Anion Gap 5.0 mmol/L Blood Urea Nitrogen 30 mg/dl Creatinine 1.47 mg/dl Est Creatinine Clear Calc Drug Dose 50.9 ml/min Estimated GFR () 57.6 Estimated GFR (Non- 49.7 BUN/Creatinine Ratio 20.7 Random Glucose 104 mg/dl Calcium Level 8.5 mg/dl Chemistry Specimen Hemolysis Bedside Glucose 161 mg/dl Assessment and Plan ascites--no evidence of SBP on cell count and culture NGSF. on lasix and aldactone and with some elevation in BUN and CR would NOT push up dose of diuretics. hepatic encephalopathy--patient alert at present--on lactulose and rifaxamin cirrhosis anemia--no overt GI bleeding nausea--no vomiting, could be related to the spinal process--continue Protonix in case PUD contributing.
--- NOTE | 2017-12-02 15:32 | Pharmacy Progress Note ---
Pharmacy Abx Dose Short Note Date of Service Dec 02, 2017. Assessment & Plan 12/02/17 Renal fxn stable for previous 72hrs. Trough at goal for being prior to the 3rd maintenance dose. Will continue current Vancomycin 1250mg (15mg/kg) q24 regimen barring any fluctuations in renal fxn. If renal fxn decompensates it may prove necessary to adjust his regimen. No further lvls ordered at this juncture. 12/06/17 Trough looks good. Renal fxn stable. Continue current regimen. Pharmacy will continue to follow and will adjust dose/frequency as necessary. Thank you.
[2017-12-02] MEDS: ENOXAPARIN 120 MG/0.8 ML SYR SQ SCH (18:38)
[2017-12-02] MEDS: CEFTRIAXONE SOD INJ 1 GM in DEXTROSE 5% ADD-VANTAGE 50ML 50 ML IV SCH (18:38)
[2017-12-02] MEDS: OXYCODONE HCL IR 5 MG TAB (IMMEDIATE RELEASE) PO PRN (18:51)
[2017-12-02] MEDS: VANCOMYCIN INJ 1,250 MG in SODIUM CHLORIDE 0.9% 250ML 250 ML IV SCH (20:50)
--- NOTE | 2017-12-02 23:35 | Progress Note ---
Subjective Date of Service: Dec 02, 2017. Subjective Pt evaluation today including: conversation w/ patient, physical exam, chart review, lab review, conversation w/ store sales consultant (gen surgery), review of inpatient medication list Pain: low back PO Intake: requests non-diabetic diet Voiding: no voiding problems overnight, some time about 0200, he thinks he scratched off a scab on his lower abdominal wall immediately he had copious amounts of blood on the sheets staff had to place a pressure dressing on the site patient states that he refuses to eat a diabetic diet wants regular food he is willing to continue low salt no other new issues Problem List Medical Problems: (1) Altered mental status Status: Acute (2) Ascites Status: Acute (3) Cellulitis of left abdominal wall Status: Acute (4) Dvt femoral (deep venous thrombosis) Status: Acute (5) Fall in home Status: Acute (6) Fever Status: Acute (7) GI bleed Status: Acute (8) Hepatic encephalopathy Status: Acute (9) Hypokalemia Status: Acute (10) Hypotension Status: Acute (11) Hypoxia Status: Acute (12) Immunocompromised Status: Acute (13) Lactic acidosis Status: Acute (14) Left leg cellulitis Status: Acute (15) Lumbar compression fracture Status: Acute (16) Lumbar disc herniation with radiculopathy Status: Acute (17) Orthostasis Status: Acute (18) Pneumonia Status: Acute (19) Sepsis Status: Acute (20) Severe sepsis Status: Acute (21) Tenosynovitis, de Quervain Status: Acute (22) Vomiting Status: Acute Review of Systems Constitutional: No fever, No chills Respiratory: No shortness of breath Cardiac: No chest pain Abdomen: No pain, No nausea, No vomiting Objective Vital Signs Date Time Temp Pulse Resp B/P (MAP) Pulse Ox O2 Delivery O2 Flow Rate FiO2 12/02/17 19:35 66 16 96 Room Air 12/02/17 16:00 97 Room Air 12/02/17 15:34 36.8 71 16 120/72 (88) 97 Room Air 12/02/17 14:26 50 16 97 Room Air 12/02/17 07:56 36.5 71 18 113/67 (82) 94 12/02/17 07:55 Room Air 12/02/17 07:41 72 16 95 Room Air 1/12/18 23:41 CPAP Physical Exam General Appearance: no apparent distress, + obese ENT: pharynx normal Neck: no JVD Respiratory/Chest: lungs clear, no respiratory distress, no accessory muscle use Cardiovascular: regular rate, rhythm, no gallop, + systolic murmur (2/6 LUSB) Abdomen: normal bowel sounds, non tender, soft, no organomegaly, + hernia ( incisional, lower abdomen, reducible) Extremities: no pedal edema Neurologic/Psychiatric: no motor/sensory deficits (strength 5/5 b/l legs), alert, oriented x 3 Skin: + pertinent finding (extensive ecchymoses over all limbs; resolved cellulitis of left side of abdominal wall; 2 prior paracentesis puncture sites are clean; just to the left of the large vertical abdominal scar there was a small ulceration with blood oozing from the site) Laboratory Results Last 24 Hours Test 12/02/17 07:47 12/02/17 07:48 12/02/17 11:32 12/02/17 16:24 Bedside Glucose 103 mg/dl 161 mg/dl 219 mg/dl White Blood Count 6.16 K/uL Red Blood Count 3.00 M/uL Hemoglobin 8.1 g/dL Hematocrit 25.3 % Mean Corpuscular Volume 84.3 fL Mean Corpuscular Hemoglobin 27.0 pg Mean Corpuscular Hemoglobin Concent 32.0 g/dl RDW Standard Deviation 58.6 fL RDW Coefficient of Variation 19.1 % Platelet Count 105 K/uL Mean Platelet Volume 10.1 fL Sodium Level 136 mmol/L Potassium Level 4.4 mmol/L Chloride Level 103 mmol/L Carbon Dioxide Level 29 mmol/L Anion Gap 5.0 mmol/L Blood Urea Nitrogen 30 mg/dl Creatinine 1.47 mg/dl Est Creatinine Clear Calc Drug Dose 50.9 ml/min Estimated GFR () 57.6 Estimated GFR (Non- 49.7 BUN/Creatinine Ratio 20.7 Random Glucose 104 mg/dl Calcium Level 8.5 mg/dl Chemistry Specimen Hemolysis Test 12/02/17 20:03 Bedside Glucose 297 mg/dl Assessment and Plan 62yo male - 1. met encephalopathy - resolved. Suspect some element of infection that caused the encephalopathy as mentation improved with institution of abx therapy. Diagnostic paracentesis with negative culture and normal cell counts. Recent abdominal wall cellulitis is resolved. He has a 9x8x2 fluid collection from L2-L5 on MRI of the lumbar spine. Statistically this is likely a seroma, but in light of his extensive back history including past h/o epidural abscess, along w/ his immunocompromised status (prednisone use, sarcoid, cirrhosis, etc) - I am concerned this fluid collection could be infected. This could be the reason for recent encephalopathy. He remains on IV vanco and rocephin. I spoke with Dr. Gray from [facility] who will consult today. The question in the end is -- treat empirically with IV antibiotics vs CT- guided I & D vs other. Defer to Dr. Gray. 2. RLE DVT - on lovenox 1.5mg/kg/day. Heme/onc recommending 3months of this regimen. 3. 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 - cont inderal for portal HTN 4. uncontrolled T2DM - I counseled/warned the patient that changing his diet to regular from T2DM will only worsen his glycemic control. He demanded the diet be changed. Will likely have to adjust his insulins with this new diet. 5. ulceration with oozing from abdominal wall - I have asked gen surg to consult to see if this ulceration needs to be sutured. 6. left-sided abdominal wall cellulitis with chronic stasis changes - cellulitis appears resolved. 7. large incisional hernia - no intervention at this time. 8. CKD stage 2 - creatinine stable at 1.4. 9. 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 Sarcoid does not appear active at this time. 10. 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 11. Chronic Diastolic CHF - compensated. 12. HTN - controlled w/ inderal. cont PT, OT await Dr. Gray's consultation Continued [facility] stay due to: multiple IV medications needed Discharge planning: rehab hospital (vs SNF vs other)
[2017-12-03] VITALS (8 sets, daily range): BP systolic 105–125; BP diastolic 51–75; PULSE 70–82; TEMP 36.3–36.8; O2SAT 94–98
[2017-12-03 06:05] LABS: BASO % 0.3 %; BASO ABS # 0.02 K/uL (0-0.2); EOS % 1.4 %; EOS ABS # 0.11 K/uL (0-0.5); HEMOGLOBIN 8.4 g/dL (14.0-18.0); IG# 0.06 K/uL (0.00-0.02); LYMPH % 10.8 %; LYMPH ABS # 0.83 K/uL (1.2-3.4); MEAN CELL VOLUME 84.1 fL (80-100); MEAN CORPUSCULAR HEMOGLOBIN 27.2 pg (25-34); MEAN CORPUSCULAR HGB CONC 32.3 g/dl (32-36); MEAN PLATELET VOLUME 9.9 fL (7.4-10.4); MONO % 12.2 %; MONO ABS # 0.93 K/uL (0.11-0.59); NEUT % 74.5 %; PLATELET COUNT 110 K/uL (130-400); RED CELL DISTRIBUTION WIDTH SD 58.5 fL (36.4-46.3); WHITE BLOOD COUNT 7.65 K/uL (4.8-10.8)
[2017-12-03 06:41] LABS: ALBUMIN 2.2 gm/dl (3.4-5.0); CALCIUM 8.2 mg/dl (8.5-10.1); CREATININE 1.26 mg/dl (0.60-1.40); POTASSIUM 3.9 mmol/L (3.5-5.1)
[2017-12-03 06:43] LABS: TOTAL PROTEIN 5.5 gm/dl (6.4-8.2)
[2017-12-03] MEDS: LEVALBUTEROL 1.25MG/3ML NEB INH SCH ×3 (07:12→19:49)
[2017-12-03] MEDS: PANTOprazole SOD 40 MG TAB PO SCH (08:14)
[2017-12-03] MEDS: RIFAXIMIN TAB 550 MG TAB PO SCH ×2 (08:14→21:27)
[2017-12-03] MEDS: MICONAZOLE NITRATE POWDER 43 GM EXT SCH ×2 (08:14→21:29)
[2017-12-03] MEDS: ATORVASTATIN 10 MG TAB PO SCH (08:14)
[2017-12-03] MEDS: PROPRANOLOL HCL 10 MG TAB PO SCH (08:14)
[2017-12-03] MEDS: FUROSEMIDE 40 MG TAB PO SCH (08:15)
[2017-12-03] MEDS: FLUOXETINE HCL 20 MG CAP PO SCH (08:15)
[2017-12-03] MEDS: LACTULOSE SYRUP 30 GM/45 ML UDP PO SCH ×2 (08:15→21:27)
[2017-12-03] MEDS: SPIRONOLACTONE 100 MG TAB PO SCH (08:15)
[2017-12-03] MEDS: INSULIN GLARGINE SOLOSTAR 100 UNITS/ML 3 ML PEN SC SCH ×2 (08:24→21:43)
[2017-12-03] MEDS: ACETAMINOPHEN 325 MG TAB PO PRN (08:25)
[2017-12-03] MEDS: INSULIN ASPART 100 UNITS/ML 3 ML PEN SC SCH ×4 (08:25→21:45)
--- NOTE | 2017-12-03 09:16 | Progress Note ---
Subjective Date of Service: Dec 03, 2017. Subjective pt was dismissive at best during my visit, keeping his eyes closed, and answering in low tones, complaints of diffuse pain Problem List Medical Problems: (1) Altered mental status Status: Acute (2) Ascites Status: Acute (3) Cellulitis of left abdominal wall Status: Acute (4) Dvt femoral (deep venous thrombosis) Status: Acute (5) Fall in home Status: Acute (6) Fever Status: Acute (7) GI bleed Status: Acute (8) Hepatic encephalopathy Status: Acute (9) Hypokalemia Status: Acute (10) Hypotension Status: Acute (11) Hypoxia Status: Acute (12) Immunocompromised Status: Acute (13) Lactic acidosis Status: Acute (14) Left leg cellulitis Status: Acute (15) Lumbar compression fracture Status: Acute (16) Lumbar disc herniation with radiculopathy Status: Acute (17) Orthostasis Status: Acute (18) Pneumonia Status: Acute (19) Sepsis Status: Acute (20) Severe sepsis Status: Acute (21) Tenosynovitis, de Quervain Status: Acute (22) Vomiting Status: Acute Review of Systems Constitutional: No fever, No chills Respiratory: No cough, No shortness of breath Abdomen: No pain, No nausea, No vomiting Male : No dysuria, No urinary frequency Neurologic: No memory loss, No paralysis Psychiatric: No depression symptoms, No anhedonism Objective Vital Signs Date Time Temp Pulse Resp B/P (MAP) Pulse Ox O2 Delivery O2 Flow Rate FiO2 12/03/17 07:15 72 16 98 Room Air 12/03/17 06:45 36.7 70 20 125/67 (86) 95 Room Air 12/03/17 00:00 Room Air 12/02/17 23:37 36.7 80 18 129/63 (85) 95 Room Air 12/02/17 19:35 66 16 96 Room Air 12/02/17 16:00 97 Room Air 12/02/17 15:34 36.8 71 16 120/72 (88) 97 Room Air 12/02/17 14:26 50 16 97 Room Air Physical Exam General Appearance: WD/WN, + moderate distress Eyes: normal inspection, sclerae normal Respiratory/Chest: chest non-tender, lungs clear, normal breath sounds Cardiovascular: regular rate, rhythm, no murmur Abdomen: normal bowel sounds, non tender, soft Extremities: no pedal edema, no calf tenderness Neurologic/Psychiatric: alert, oriented x 3 Laboratory Results Last 24 Hours Test 12/02/17 11:32 12/02/17 16:24 12/02/17 20:03 12/03/17 05:56 Bedside Glucose 161 mg/dl 219 mg/dl 297 mg/dl White Blood Count 7.65 K/uL Red Blood Count 3.09 M/uL Hemoglobin 8.4 g/dL Hematocrit 26.0 % Mean Corpuscular Volume 84.1 fL Mean Corpuscular Hemoglobin 27.2 pg Mean Corpuscular Hemoglobin Concent 32.3 g/dl Platelet Count 110 K/uL Mean Platelet Volume 9.9 fL Neutrophils (%) (Auto) 74.5 % Lymphocytes (%) (Auto) 10.8 % Monocytes (%) (Auto) 12.2 % Eosinophils (%) (Auto) 1.4 % Basophils (%) (Auto) 0.3 % Neutrophils # (Auto) 5.70 K/uL Lymphocytes # (Auto) 0.83 K/uL Monocytes # (Auto) 0.93 K/uL Eosinophils # (Auto) 0.11 K/uL Basophils # (Auto) 0.02 K/uL RDW Standard Deviation 58.5 fL RDW Coefficient of Variation 19.0 % Immature Granulocyte % (Auto) 0.8 % Immature Granulocyte # (Auto) 0.06 K/uL Polychromasia 1+ Hypochromasia PRESENT Anisocytosis PRESENT Sodium Level 133 mmol/L Potassium Level 3.9 mmol/L Chloride Level 99 mmol/L Carbon Dioxide Level 30 mmol/L Anion Gap 4.0 mmol/L Blood Urea Nitrogen 28 mg/dl Creatinine 1.26 mg/dl Est Creatinine Clear Calc Drug Dose 59.4 ml/min Estimated GFR () 69.4 Estimated GFR (Non- 59.9 BUN/Creatinine Ratio 22.5 Random Glucose 157 mg/dl Calcium Level 8.2 mg/dl Total Bilirubin 1.1 mg/dl Aspartate Amino Transf (AST/SGOT) 38 U/L Alanine Aminotransferase (ALT/SGPT) 33 U/L Alkaline Phosphatase 271 U/L Ammonia 39.0 umol/L Total Protein 5.5 gm/dl Albumin 2.2 gm/dl Globulin 3.3 gm/dl Albumin/Globulin Ratio 0.7 Test 12/03/17 07:35 Bedside Glucose 123 mg/dl Assessment and Plan 62yo male -with metabolic encephalopathy from suspected paraspinous fluid collection or abscess, did improved with empiric antibiotic therapy met encephalopathy - resolved, caused the encephalopathy as mentation improved with institution of abx therapy. Diagnostic paracentesis with negative culture and normal cell counts. Recent abdominal wall cellulitis is resolved. He has a 9x8x2 fluid collection from L2-L5 on MRI of the lumbar spine. Statistically this is likely a seroma, but in light of his extensive back history including past h/o epidural abscess, along w/ his immunocompromised status (prednisone use, sarcoid, cirrhosis, etc) - I am concerned this fluid collection could be infected. This could be the reason for recent encephalopathy. He remains on IV vanco and rocephin. I spoke with Dr. Gray from ortho who will consult- treat empirically with IV antibiotics vs CT-guided I & D vs other. RLE DVT - previously on lovenox 1.5mg/kg/day. Heme/onc recommending 3months of this regimen. 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 Uncontrolled T2DM - Insulin monitoring for toxic affects ulceration with oozing from abdominal wall - gen surg to consult to see wound would need intervention Left-sided abdominal wall cellulitis with chronic stasis changes - cellulitis appears resolved. large incisional hernia - no intervention at this time. CKD stage 2 - creatinine stable at 1.4. 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 Sarcoid does not appear active at this time. 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 Chronic Diastolic CHF - compensated. Continued [facility] stay due to: multiple IV medications needed Discharge planning: rehab hospital (vs SNF vs other)
--- NOTE | 2017-12-03 10:22 | Surgery Progress Note ---
Surgery Progress Note Date of Service Dec 03, 2017. Subjective + feeling well doing fine, no active bleeding from abdominal wall, Objective Vital Signs: Date Time Temp Pulse Resp B/P (MAP) Pulse Ox O2 Delivery O2 Flow Rate FiO2 12/03/17 08:00 95 Room Air 12/03/17 07:15 72 16 98 Room Air 12/03/17 06:45 36.7 70 20 125/67 (86) 95 Room Air 12/03/17 00:00 Room Air 12/02/17 23:37 36.7 80 18 129/63 (85) 95 Room Air 12/02/17 19:35 66 16 96 Room Air 12/02/17 16:00 97 Room Air 12/02/17 15:34 36.8 71 16 120/72 (88) 97 Room Air 12/02/17 14:26 50 16 97 Room Air General Appearance: WD/WN Head: normocephalic Neck: supple Respiratory/Chest: chest non-tender Cardiovascular: regular rate, rhythm, no edema, no gallop Abdomen: normal bowel sounds, non tender, non distended, soft Extremities: normal range of motion, non-tender, normal inspection Laboratory Results: Results Past 24 Hours Test 12/02/17 11:32 12/02/17 16:24 12/02/17 20:03 12/03/17 05:56 Range/Units Bedside Glucose 161 219 297 70-99 mg/dl White Blood Count 7.65 4.8-10.8 K/uL Red Blood Count 3.09 4.7-6.1 M/uL Hemoglobin 8.4 14.0-18.0 g/dL Hematocrit 26.0 42-52 % Mean Corpuscular Volume 84.1 80-100 fL Mean Corpuscular Hemoglobin 27.2 25-34 pg Mean Corpuscular Hemoglobin Concent 32.3 32-36 g/dl Platelet Count 110 130-400 K/uL Mean Platelet Volume 9.9 7.4-10.4 fL Neutrophils (%) (Auto) 74.5 % Lymphocytes (%) (Auto) 10.8 % Monocytes (%) (Auto) 12.2 % Eosinophils (%) (Auto) 1.4 % Basophils (%) (Auto) 0.3 % Neutrophils # (Auto) 5.70 1.4-6.5 K/uL Lymphocytes # (Auto) 0.83 1.2-3.4 K/uL Monocytes # (Auto) 0.93 0.11-0.59 K/uL Eosinophils # (Auto) 0.11 0-0.5 K/uL Basophils # (Auto) 0.02 0-0.2 K/uL RDW Standard Deviation 58.5 36.4-46.3 fL RDW Coefficient of Variation 19.0 11.5-14.5 % Immature Granulocyte % (Auto) 0.8 % Immature Granulocyte # (Auto) 0.06 0.00-0.02 K/uL Polychromasia 1+ Hypochromasia PRESENT Anisocytosis PRESENT Sodium Level 133 136-145 mmol/L Potassium Level 3.9 3.5-5.1 mmol/L Chloride Level 99 98-107 mmol/L Carbon Dioxide Level 30 21-32 mmol/L Anion Gap 4.0 3-11 mmol/L Blood Urea Nitrogen 28 7-18 mg/dl Creatinine 1.26 0.60-1.40 mg/dl Est Creatinine Clear Calc Drug Dose 59.4 ml/min Estimated GFR () 69.4 Estimated GFR (Non- 59.9 BUN/Creatinine Ratio 22.5 10-20 Random Glucose 157 70-99 mg/dl Calcium Level 8.2 8.5-10.1 mg/dl Total Bilirubin 1.1 0.2-1 mg/dl Aspartate Amino Transf (AST/SGOT) 38 15-37 U/L Alanine Aminotransferase (ALT/SGPT) 33 12-78 U/L Alkaline Phosphatase 271 45-117 U/L Ammonia 39.0 11-32 umol/L Total Protein 5.5 6.4-8.2 gm/dl Albumin 2.2 3.4-5.0 gm/dl Globulin 3.3 2.5-4.0 gm/dl Albumin/Globulin Ratio 0.7 0.9-2 Test 12/03/17 07:35 Range/Units Bedside Glucose 123 70-99 mg/dl Assessment & Plan doing fine, no active bleeding from abdominal wall sign off today, please call US if any questions, thanks!
[2017-12-03] MEDS: OXYCODONE HCL IR 5 MG TAB (IMMEDIATE RELEASE) PO PRN ×2 (12:38→17:10)
--- NOTE | 2017-12-03 16:59 | Gastroenterology Progress Note ---
Progress Note Date of Service: Dec 03, 2017 Subjective Pt evaluation today including: conversation w/ patient, conversation w/ family (), physical exam, chart review, lab review, review of studies, review of inpatient medication list CC f/u cirrhosis, ascites HPI with patient and was told by patient he did not sleep well last night. Pt sleeping with CPAP on and will wake up to answer questions. He denies abd pain. Review of Systems Respiratory: No shortness of breath Cardiac: No chest pain Medications Current Inpatient Medications Medications (Trade) Dose Ordered Sig/Nathalia Route Start Time Stop Time Status Last Admin Dose Admin Al Hydrox/Mg Hydrox/Simethicone (Maalox Max Susp) 15 ml Q4H PRN PO 11/23/17 17:45 12/23/17 17:44 Magnesium Hydroxide (Milk Of Magnesia Susp) 30 ml Q12H PRN PO 11/23/17 17:45 12/23/17 17:44 Ondansetron HCl (Zofran Inj) 4 mg Q6H PRN IV 11/23/17 17:45 12/23/17 17:44 Polyethylene (Miralax Powder Packet) 17 gm DAILY PRN PO 11/23/17 17:45 12/23/17 17:44 Insulin Aspart (novoLOG ASPART) SLIDING SCALE If C... ACHS SC 11/23/17 21:00 12/23/17 20:59 12/03/17 12:40 9 UNITS Glucose (Glucose 40% Gel) 15-30 GRAMS 15 GRAMS... UD PRN PO 11/23/17 17:45 12/23/17 17:44 Glucose (Glucose Chew Tab) 4-8 Tablets 4 Tabl... UD PRN PO 11/23/17 17:45 12/23/17 17:44 Dextrose (Dextrose 50% 50ML Syringe) 25-50ML OF 50% DW IV FOR... UD PRN IV 11/23/17 17:45 12/23/17 17:44 Glucagon (Glucagon Inj) 1 mg UD PRN SQ 11/23/17 17:45 12/23/17 17:44 Albuterol Sulfate (Ventolin 0.083% 2.5MG/3ML Neb) 2.5 mg Q4H PRN INH 11/23/17 17:45 2/3/18 17:44 11/27/17 22:13 2.5 MG Atorvastatin Calcium (Lipitor Tab) 10 mg DAILY PO 11/24/17 09:00 12/24/17 08:59 12/03/17 08:14 10 MG Fluoxetine HCl (Prozac Cap) 40 mg QAM PO 11/24/17 09:00 12/24/17 08:59 12/03/17 08:15 40 MG Levalbuterol (Xopenex 1.25MG/ 3ML Neb) 1.25 mg TID INH 11/23/17 21:00 12/23/17 20:59 12/03/17 14:08 1.25 MG Ondansetron HCl (Zofran Tab) 4 mg Q4 PRN PO 11/23/17 17:45 12/23/17 17:44 12/02/17 11:59 4 MG Pantoprazole Sodium (Protonix Tab) 40 mg QAM PO 11/24/17 09:00 12/24/17 08:59 12/03/17 08:14 40 MG Propranolol HCl (Inderal Tab) 10 mg DAILY PO 11/24/17 09:00 12/24/17 08:59 12/03/17 08:14 10 MG Insulin Glargine (Lantus Solostar Pen) 20 units BID SC 11/23/17 21:00 12/23/17 20:59 12/03/17 08:24 20 UNITS Rifaximin (Xifaxan Tab) 550 mg BID PO 11/24/17 09:00 12/24/17 08:59 12/03/17 08:14 550 MG Spironolactone (Aldactone Tab) 100 mg QAM PO 11/27/17 09:00 12/27/17 08:59 12/03/17 08:15 100 MG Furosemide (Lasix Tab) 40 mg QAM PO 11/27/17 09:00 12/27/17 08:59 12/03/17 08:15 40 MG Lactulose (Chronulac Syrup) 30 gm BID PO 11/27/17 21:00 12/23/17 20:59 12/03/17 08:15 30 GM Prednisone (PredniSONE TAB) 20 mg DAILY PO 11/28/17 09:00 12/28/17 08:59 12/03/17 08:15 20 MG Ceftriaxone Sodium 1 gm/ Dextrose 50 ml @ 100 mls/hr Q24H IV 11/29/17 18:00 12/09/17 17:59 12/02/17 18:38 100 MLS/HR Vancomycin HCl (Consult) 1 ea UD PRN N/A 11/29/17 18:15 12/29/17 18:14 Vancomycin HCl 1250 mg/Sodium Chloride 275 ml @ 125 mls/hr Q24H IV 11/30/17 21:00 12/09/17 23:59 12/02/17 20:50 125 MLS/HR Acetaminophen (Tylenol Tab) 650 mg Q8H PRN PO 11/30/17 18:00 12/23/17 17:44 12/03/17 08:25 650 MG Enoxaparin Sodium (Lovenox Inj) 120 mg DAILY@1800 SQ 11/30/17 18:00 12/30/17 17:59 12/02/17 18:38 120 MG Gadobutrol (Gadavist) 8 mmol UD PRN IV 12/01/17 12:45 12/05/17 12:44 Miconazole Nitrate (Desenex Powder) 1 appln BID EXT 12/01/17 21:00 12/31/17 20:59 12/03/17 08:14 1 APPLN Oxycodone HCl (Roxicodone Immediate Rel Tab) 10 mg Q4H PRN PO 12/03/17 15:15 12/07/17 17:44 Hydromorphone HCl (Dilaudid Inj) 0.5 mg Q4 PRN IV 12/03/17 15:00 12/17/17 14:59 Objective Vital Signs Date Time Temp Pulse Resp B/P (MAP) Pulse Ox O2 Delivery O2 Flow Rate FiO2 12/03/17 15:33 36.3 71 19 118/75 (89) 97 Room Air 12/03/17 14:08 70 16 95 Room Air 12/03/17 08:00 95 Room Air 12/03/17 07:15 72 16 98 Room Air 12/03/17 06:45 36.7 70 20 125/67 (86) 95 Room Air 12/03/17 00:00 Room Air 12/02/17 23:37 36.7 80 18 129/63 (85) 95 Room Air 12/02/17 19:35 66 16 96 Room Air Physical Exam General Appearance: WD/WN, no apparent distress Respiratory/Chest: lungs clear, normal breath sounds Cardiovascular: regular rate, rhythm, no murmur Abdomen: normal bowel sounds, non tender, soft, no organomegaly, + distended Neurologic/Psych: normal mood/affect, + pertinent finding (sleeping but is arousable to answer questions) Skin: normal color Laboratory Results Last 24 Hours Test 12/02/17 20:03 12/03/17 05:56 12/03/17 07:35 12/03/17 11:27 Bedside Glucose 297 mg/dl 123 mg/dl 162 mg/dl White Blood Count 7.65 K/uL Red Blood Count 3.09 M/uL Hemoglobin 8.4 g/dL Hematocrit 26.0 % Mean Corpuscular Volume 84.1 fL Mean Corpuscular Hemoglobin 27.2 pg Mean Corpuscular Hemoglobin Concent 32.3 g/dl Platelet Count 110 K/uL Mean Platelet Volume 9.9 fL Neutrophils (%) (Auto) 74.5 % Lymphocytes (%) (Auto) 10.8 % Monocytes (%) (Auto) 12.2 % Eosinophils (%) (Auto) 1.4 % Basophils (%) (Auto) 0.3 % Neutrophils # (Auto) 5.70 K/uL Lymphocytes # (Auto) 0.83 K/uL Monocytes # (Auto) 0.93 K/uL Eosinophils # (Auto) 0.11 K/uL Basophils # (Auto) 0.02 K/uL RDW Standard Deviation 58.5 fL RDW Coefficient of Variation 19.0 % Immature Granulocyte % (Auto) 0.8 % Immature Granulocyte # (Auto) 0.06 K/uL Polychromasia 1+ Hypochromasia PRESENT Anisocytosis PRESENT Sodium Level 133 mmol/L Potassium Level 3.9 mmol/L Chloride Level 99 mmol/L Carbon Dioxide Level 30 mmol/L Anion Gap 4.0 mmol/L Blood Urea Nitrogen 28 mg/dl Creatinine 1.26 mg/dl Est Creatinine Clear Calc Drug Dose 59.4 ml/min Estimated GFR () 69.4 Estimated GFR (Non- 59.9 BUN/Creatinine Ratio 22.5 Random Glucose 157 mg/dl Calcium Level 8.2 mg/dl Total Bilirubin 1.1 mg/dl Aspartate Amino Transf (AST/SGOT) 38 U/L Alanine Aminotransferase (ALT/SGPT) 33 U/L Alkaline Phosphatase 271 U/L Ammonia 39.0 umol/L Total Protein 5.5 gm/dl Albumin 2.2 gm/dl Globulin 3.3 gm/dl Albumin/Globulin Ratio 0.7 Test 12/03/17 16:38 Bedside Glucose 331 mg/dl Assessment and Plan ascites--no evidence of SBP on cell count and culture NGSF. on lasix and aldactone with mild BUN elevationa hepatic encephalopathy--patient sleeping but will wake up and answer questions. --on lactulose and rifaxamin--ammonia 39 so doubt the "sleepiness" if from this cirrhosis anemia--no overt GI bleeding--stable. nausea--no vomiting, could be related to the spinal process--continue Protonix in case PUD contributing. I am going off service tomorrow 12/04/[address] Rubio is on schedule to be assumign GI care then.
[2017-12-03] MEDS: CEFTRIAXONE SOD INJ 1 GM in DEXTROSE 5% ADD-VANTAGE 50ML 50 ML IV SCH (18:29)
[2017-12-03] MEDS: ENOXAPARIN 120 MG/0.8 ML SYR SQ SCH (18:30)
[2017-12-03] MEDS: VANCOMYCIN INJ 1,250 MG in SODIUM CHLORIDE 0.9% 250ML 250 ML IV SCH (21:21)
[2017-12-04] VITALS (8 sets, daily range): BP systolic 105–121; BP diastolic 57–68; PULSE 68–95; TEMP 36.4–36.7; O2SAT 94–99; Ht 167.6 cm; Wt 81.6 kg
[2017-12-04] MEDS: LEVALBUTEROL 1.25MG/3ML NEB INH SCH ×3 (07:18→19:47)
[2017-12-04] MEDS: MICONAZOLE NITRATE POWDER 43 GM EXT SCH ×2 (08:15→21:25)
[2017-12-04] MEDS: PANTOprazole SOD 40 MG TAB PO SCH (08:15)
[2017-12-04] MEDS: FLUOXETINE HCL 20 MG CAP PO SCH (08:15)
[2017-12-04] MEDS: SPIRONOLACTONE 100 MG TAB PO SCH (08:15)
[2017-12-04] MEDS: FUROSEMIDE 40 MG TAB PO SCH (08:15)
[2017-12-04] MEDS: RIFAXIMIN TAB 550 MG TAB PO SCH ×2 (08:15→21:25)
[2017-12-04 08:16] LABS: BASO % 0.6 %; BASO ABS # 0.05 K/uL (0-0.2); EOS % 2.6 %; EOS ABS # 0.22 K/uL (0-0.5); HEMOGLOBIN 8.6 g/dL (14.0-18.0); LYMPH % 10.9 %; LYMPH ABS # 0.91 K/uL (1.2-3.4); MEAN CELL VOLUME 84.4 fL (80-100); MEAN CORPUSCULAR HEMOGLOBIN 26.9 pg (25-34); MEAN CORPUSCULAR HGB CONC 31.9 g/dl (32-36); MEAN PLATELET VOLUME 10.2 fL (7.4-10.4); MONO ABS # 0.92 K/uL (0.11-0.59); NEUT % 73.7 %; NEUT ABS # 6.17 K/uL (1.4-6.5); PLATELET COUNT 124 K/uL (130-400); RED CELL DISTRIBUTION WIDTH CV 18.9 % (11.5-14.5); RED CELL DISTRIBUTION WIDTH SD 58.6 fL (36.4-46.3); WHITE BLOOD COUNT 8.37 K/uL (4.8-10.8)
[2017-12-04] MEDS: LACTULOSE SYRUP 30 GM/45 ML UDP PO SCH ×2 (08:16→21:25)
[2017-12-04] MEDS: ATORVASTATIN 10 MG TAB PO SCH (08:16)
[2017-12-04] MEDS: PROPRANOLOL HCL 10 MG TAB PO SCH (08:16)
[2017-12-04] MEDS: INSULIN ASPART 100 UNITS/ML 3 ML PEN SC SCH ×4 (08:22→21:38)
[2017-12-04 08:55] LABS: ALBUMIN 2.3 gm/dl (3.4-5.0); CALCIUM 8.6 mg/dl (8.5-10.1); CREATININE 1.16 mg/dl (0.60-1.40); POTASSIUM 4.1 mmol/L (3.5-5.1)
[2017-12-04 08:58] LABS: TOTAL PROTEIN 5.5 gm/dl (6.4-8.2)
[2017-12-04] MEDS: INSULIN GLARGINE SOLOSTAR 100 UNITS/ML 3 ML PEN SC SCH ×2 (09:31→21:39)
[2017-12-04] MEDS: ACETAMINOPHEN 325 MG TAB PO PRN ×2 (09:34→17:41)
[2017-12-04] MEDS: OXYCODONE HCL IR 5 MG TAB (IMMEDIATE RELEASE) PO PRN ×2 (13:25→23:45)
--- NOTE | 2017-12-04 13:56 | Hospitalist Progress Note ---
Hospitalist Progress Note Date of Service Dec 04, 2017. (Enma Ruggiero, PA-C) Subjective Pt evaluation today including: conversation w/ patient, physical exam, chart review, lab review, review of studies, conversation w/ ux consultant (Dr. Gray), review of inpatient medication list Patient seen and evaluated. No acute events overnight. Reports a much better day today then yesterday. Reports back pain is improving and only is bothersome when trying to lay down or get back up but once in one position his back does not bother him. Mentation has remained improved since restarting IV Abx. Discussed with Dr. Gray and recommendations for non-urgent F/U with his surgeons in [facility] to consider possible need for drainage. Constitutional: No fever, No chills Respiratory: No shortness of breath Cardiovascular: No chest pain Abdomen: No pain, No nausea, No vomiting, No diarrhea, No constipation Musculoskeletal: + problem reported (back pain - improving) (Enma Ruggiero, ANJALI-C) Medications Current Inpatient Medications Medications (Trade) Dose Ordered Sig/Nathalia Route Start Time Stop Time Status Last Admin Dose Admin Al Hydrox/Mg Hydrox/Simethicone (Maalox Max Susp) 15 ml Q4H PRN PO 11/23/17 17:45 12/23/17 17:44 Magnesium Hydroxide (Milk Of Magnesia Susp) 30 ml Q12H PRN PO 11/23/17 17:45 12/23/17 17:44 Ondansetron HCl (Zofran Inj) 4 mg Q6H PRN IV 11/23/17 17:45 12/23/17 17:44 Polyethylene (Miralax Powder Packet) 17 gm DAILY PRN PO 11/23/17 17:45 12/23/17 17:44 Insulin Aspart (novoLOG ASPART) SLIDING SCALE If C... ACHS SC 11/23/17 21:00 12/23/17 20:59 12/04/17 12:18 2 UNITS Glucose (Glucose 40% Gel) 15-30 GRAMS 15 GRAMS... UD PRN PO 11/23/17 17:45 12/23/17 17:44 Glucose (Glucose Chew Tab) 4-8 Tablets 4 Tabl... UD PRN PO 11/23/17 17:45 12/23/17 17:44 Dextrose (Dextrose 50% 50ML Syringe) 25-50ML OF 50% DW IV FOR... UD PRN IV 11/23/17 17:45 12/23/17 17:44 Glucagon (Glucagon Inj) 1 mg UD PRN SQ 11/23/17 17:45 12/23/17 17:44 Albuterol Sulfate (Ventolin 0.083% 2.5MG/3ML Neb) 2.5 mg Q4H PRN INH 11/23/17 17:45 12/23/17 17:44 11/27/17 22:13 2.5 MG Atorvastatin Calcium (Lipitor Tab) 10 mg DAILY PO 11/24/17 09:00 12/24/17 08:59 12/04/17 08:16 10 MG Fluoxetine HCl (Prozac Cap) 40 mg QAM PO 11/24/17 09:00 12/24/17 08:59 12/04/17 08:15 40 MG Levalbuterol (Xopenex 1.25MG/ 3ML Neb) 1.25 mg TID INH 11/23/17 21:00 12/23/17 20:59 12/04/17 07:18 1.25 MG Ondansetron HCl (Zofran Tab) 4 mg Q4 PRN PO 11/23/17 17:45 12/23/17 17:44 12/02/17 11:59 4 MG Pantoprazole Sodium (Protonix Tab) 40 mg QAM PO 11/24/17 09:00 12/24/17 08:59 12/04/17 08:15 40 MG Propranolol HCl (Inderal Tab) 10 mg DAILY PO 11/24/17 09:00 12/24/17 08:59 12/04/17 08:16 10 MG Rifaximin (Xifaxan Tab) 550 mg BID PO 11/24/17 09:00 12/24/17 08:59 12/04/17 08:15 550 MG Spironolactone (Aldactone Tab) 100 mg QAM PO 11/27/17 09:00 12/27/17 08:59 12/04/17 08:15 100 MG Furosemide (Lasix Tab) 40 mg QAM PO 11/27/17 09:00 12/27/17 08:59 12/04/17 08:15 40 MG Lactulose (Chronulac Syrup) 30 gm BID PO 11/27/17 21:00 12/23/17 20:59 12/04/17 08:16 30 GM Prednisone (PredniSONE TAB) 20 mg DAILY PO 11/28/17 09:00 12/28/17 08:59 12/04/17 08:16 20 MG Ceftriaxone Sodium 1 gm/ Dextrose 50 ml @ 100 mls/hr Q24H IV 11/29/17 18:00 12/09/17 17:59 12/03/17 18:29 100 MLS/HR Vancomycin HCl (Consult) 1 ea UD PRN N/A 11/29/17 18:15 12/29/17 18:14 Vancomycin HCl 1250 mg/Sodium Chloride 275 ml @ 125 mls/hr Q24H IV 11/30/17 21:00 12/09/17 23:59 12/03/17 21:21 125 MLS/HR Acetaminophen (Tylenol Tab) 650 mg Q8H PRN PO 11/30/17 18:00 12/23/17 17:44 12/04/17 09:34 650 MG Enoxaparin Sodium (Lovenox Inj) 120 mg DAILY@1800 SQ 11/30/17 18:00 12/30/17 17:59 12/03/17 18:30 120 MG Gadobutrol (Gadavist) 8 mmol UD PRN IV 12/01/17 12:45 12/05/17 12:44 Miconazole Nitrate (Desenex Powder) 1 appln BID EXT 12/01/17 21:00 12/31/17 20:59 12/04/17 08:15 1 APPLN Oxycodone HCl (Roxicodone Immediate Rel Tab) 10 mg Q4H PRN PO 12/03/17 15:15 12/07/17 17:44 12/04/17 13:25 10 MG Hydromorphone HCl (Dilaudid Inj) 0.5 mg Q4 PRN IV 12/03/17 15:00 12/17/17 14:59 Insulin Glargine (Lantus Solostar Pen) 25 units BID SC 12/04/17 09:00 12/23/17 20:59 12/04/17 09:31 5 UNITS (Enma Ruggiero, KEO) Objective Vital Signs Date Time Temp Pulse Resp B/P (MAP) Pulse Ox O2 Delivery O2 Flow Rate FiO2 12/04/17 08:00 99 Room Air 12/04/17 07:23 36.6 71 18 110/68 (82) 99 Room Air 12/04/17 07:18 68 15 98 Room Air 12/04/17 00:00 BiPAP 12/03/17 23:04 36.8 82 18 105/51 (69) 94 Room Air 12/03/17 19:49 75 16 96 Room Air 12/03/17 18:17 18 95 Room Air 12/03/17 17:10 Room Air 12/03/17 15:33 36.3 71 19 118/75 (89) 97 Room Air 12/03/17 14:08 70 16 95 Room Air (Enma Ruggiero PA-C) Physical Exam General Appearance: WD/WN, no apparent distress Eyes: sclerae normal ENT: hearing grossly normal Neck: supple, no JVD, trachea midline Respiratory/Chest: lungs clear, normal breath sounds, no respiratory distress, no accessory muscle use Cardiovascular: regular rate, rhythm Abdomen: normal bowel sounds, non tender, soft, + pertinent finding (pressure dressing to hernia site that is C/D/I) Neurologic/Psychiatric: alert Skin: normal color (Enma Ruggiero PA-C) Laboratory Results Last 24 Hours Test 12/03/17 16:38 12/03/17 19:58 12/04/17 07:50 12/04/17 08:07 Bedside Glucose 331 mg/dl 346 mg/dl 140 mg/dl White Blood Count 8.37 K/uL Red Blood Count 3.20 M/uL Hemoglobin 8.6 g/dL Hematocrit 27.0 % Mean Corpuscular Volume 84.4 fL Mean Corpuscular Hemoglobin 26.9 pg Mean Corpuscular Hemoglobin Concent 31.9 g/dl Platelet Count 124 K/uL Mean Platelet Volume 10.2 fL Neutrophils (%) (Auto) 73.7 % Lymphocytes (%) (Auto) 10.9 % Monocytes (%) (Auto) 11.0 % Eosinophils (%) (Auto) 2.6 % Basophils (%) (Auto) 0.6 % Neutrophils # (Auto) 6.17 K/uL Lymphocytes # (Auto) 0.91 K/uL Monocytes # (Auto) 0.92 K/uL Eosinophils # (Auto) 0.22 K/uL Basophils # (Auto) 0.05 K/uL RDW Standard Deviation 58.6 fL RDW Coefficient of Variation 18.9 % Immature Granulocyte % (Auto) 1.2 % Immature Granulocyte # (Auto) 0.10 K/uL Polychromasia 1+ Poikilocytosis PRESENT Sodium Level 137 mmol/L Potassium Level 4.1 mmol/L Chloride Level 101 mmol/L Carbon Dioxide Level 28 mmol/L Anion Gap 8.0 mmol/L Blood Urea Nitrogen 24 mg/dl Creatinine 1.16 mg/dl Est Creatinine Clear Calc Drug Dose 64.5 ml/min Estimated GFR () 76.7 Estimated GFR (Non- 66.2 BUN/Creatinine Ratio 20.3 Random Glucose 147 mg/dl Calcium Level 8.6 mg/dl Total Bilirubin 1.2 mg/dl Aspartate Amino Transf (AST/SGOT) 40 U/L Alanine Aminotransferase (ALT/SGPT) 38 U/L Alkaline Phosphatase 280 U/L Ammonia 12.5 umol/L Total Protein 5.5 gm/dl Albumin 2.3 gm/dl Globulin 3.2 gm/dl Albumin/Globulin Ratio 0.7 Test 12/04/17 11:07 Bedside Glucose 145 mg/dl (Enma Ruggiero, PAJereC) Assessment and Plan Mr. 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 Acute Metabolic Encephalopathy: RESOLVED - Mentation at baseline since resuming IV Abx leaning towards likely metabolic encephalopathy from infection whether this is the abdominal cellulitis vs lumbar abscess? 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: - Lovenox 1.5 mg/kg daily - will need anticoagulation x 3 months - Consultation placed for Vascular Surgery - no indication for IVC filter at this time - Will need BID dosing on D/C due to insurance coverage - reporting BID dosing to be $100/month and states this is feasible x 3 months LETTY vs New Baseline Cr: - Cr rather stable but fluctuating between WNL and mild elevation Chronic Diastolic CHF: STABLE 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 with Portal HTN and Ascites and Thrombocytopenia: - Continue Lasix 40 mg daily and tolerating increased Spironolactone 100 mg daily - Lactulose 30 g BID and will continue Xifaxan 550 mg BID - GI following - appreciate further recommendations T2DM: A1c 8.4 (Sep 2017) - Lantus 25 units SC BID and SSI - Reporting that he does not want a diabetic diet and will adjust insulin for better coverage Sarcoidosis with Extra-Pulmonary Effects: - Ventolin Q4H PRN and Xopenex neb TID - Prednisone 20 mg daily HLD: - Atorvastatin 10 mg daily HTN: - Propranolol 10 mg daily DVT Prophylaxis: Heparin gtt Code Status: FULL RESUSCITATION Disposition: - Appreciate IDs recommendations of duration of Abx and likely D/C to [facility] next 1-2 days - Recommend outpatient F/U with [facility] Spine Surgeon quickly thereafter. Continued [facility] stay due to: multiple IV medications needed Discharge planning: rehab hospital (Enma Ruggiero, PAJereC) PA Physician Supervision Note: I interviewed and examined the patient. Discussed with Enma Ruggiero PAC and agree with findings and plan as documented in the note. Any exceptions or clarifications are listed here: None Patient has multiple problems as listed above was here initially with encephalopathy felt to be multifactorial with most recent concern for a fluid collection in his spine which could be abscess or seroma this is, get a by recent trauma. The patient also has a history of liver failure which required evaluation of ascitic fluid found to be transudate of and not felt to be infected. He does also have a concurrent acute VTE which needs treatment with anticoagulation. This plus the fact these markedly deconditioned and has consistent persistent pain since his back surgery will require him to need rehabilitation prior to returning home Vitals are reviewed and stable today he is much better pain control His cardiac exam is distant but regular lungs are clear with the bases abdomen is normal bowel sounds and soft he does have some shifting dullness which may be ascites. He initially was here with a possible abdominal wall cellulitis this seems to be resolved however the patient's continue to be treated with vancomycin and Rocephin for concern that the fluid collection in his back could be seeded, we're looking for infectious disease direction for duration of treatment for this possible infection and it may well be with intravenous antibiotics post discharge. Documented By: Americo Edwards (Americo Edwards M.D.)
--- NOTE | 2017-12-04 15:34 | Medical Consult ---
Consultation Date of Consultation: Dec 04, 2017. Attending Physician: Americo Edwards M.D. Reason for Consultation: Possible lumbar abscess, recommendations for duration of antibiotics History of Present Illness 62-year-old male well known to the Infectious Disease service with complicated past medical history including sarcoidosis with cirrhosis, diabetes mellitus, sleep apnea, hypertension, hyperlipidemia, and chronic thrombocytopenia, hospitalized last summer with lumbar osteomyelitis and diskitis following lumbar surgery requiring repair in removal of some hardware, with cultures at that time growing Klebsiella pneumoniae, subsequent episode of Christina glabrata sepsis, who has been maintained on chronic suppressive therapy with cephalexin, who was admitted with several days of altered mental status with erythema of the left abdominal wall consistent with abdominal wall cellulitis. He was started empirically on broad-spectrum antibiotics, blood cultures were negative , peritoneal fluid cultures also negative. He had improvement in mental status back to baseline with antibiotic therapy. He had episode of severe bleeding from the his abdominal wall incision which has now subsided.. He has had persistent back pain, no obvious worsening over the recent past, and MRI of the lumbar spine was repeated which shows fluid collection raising the spectre of possible lumbar abscess. In review of previous MRI scan, he had similar fluid collection which was significantly larger in May. Prior evidence of diskitis and osteomyelitis has resolved. He appears to have had several compression type fractures in the interim. He states the back pain is much better. His sed rate is 29, was greater than 90 in May. C reactive protein 2.09. Past Medical/Surgical History Medical Problems: (1) Altered mental status Status: Acute (2) Ascites Status: Acute (3) Cellulitis of left abdominal wall Status: Acute (4) Dvt femoral (deep venous thrombosis) Status: Acute (5) Fall in home Status: Acute (6) Fever Status: Acute (7) GI bleed Status: Acute (8) Hepatic encephalopathy Status: Acute (9) Hypokalemia Status: Acute (10) Hypotension Status: Acute (11) Hypoxia Status: Acute (12) Immunocompromised Status: Acute (13) Lactic acidosis Status: Acute (14) Left leg cellulitis Status: Acute (15) Lumbar compression fracture Status: Acute (16) Lumbar disc herniation with radiculopathy Status: Acute (17) Orthostasis Status: Acute (18) Pneumonia Status: Acute (19) Sepsis Status: Acute (20) Severe sepsis Status: Acute (21) Tenosynovitis, de Quervain Status: Acute (22) Vomiting Status: Acute Medical Problems: (1) Abscess in epidural space of lumbar spine (2) ACUTE RESP.FAIL.,SARCOIDOSIS (3) Anemia (4) Asthma (5) Diabetic autonomic neuropathy (6) Fungemia (7) GERD (gastroesophageal reflux disease) (8) gi bleed, ? sepsis (9) gi bleed, ?sepsis (10) Gram negative septicemia (11) HEPATIC ENCEPHALOPATHY. SARCOIDOSIS. DM2,POST LUMBAR DISC SURGERY (12) HERNIATED L4-L5 DISC (13) Hyperlipidemia (14) Hypertension (15) Infection of lumbar spine (16) Kidney stone (17) Lumbar stenosis with neurogenic claudication (18) Meningitis (19) MSC,SEVERE HYPO K, LUMBAR SPINE ABCESS,MALNUTRITION, CIRRHOSIS (20) MSC. FEVER.,?MENINGITIS,DM2,SARCOIDOSIS,SLEEP APNEA (21) Obesity (22) Post op infection (23) Sarcoidosis (24) Septal defect (25) SEVERE CELLULITIS L LEG,SEPSIS SYNDROME (26) Sleep apnea (27) Thrombocytopenia Family History Patient reports no known family medical history. Social History Smoking Status: Never Smoker Smokeless Tobacco Use: No Alcohol Use: Previous heavy drinker Drug Use: none Marital Status: Housing Status: lives with family Occupation Status: retired Allergies Coded Allergies: Celecoxib (Verified Allergy, Intermediate, HIVES, 05/02/17) Penicillins (Verified Allergy, Intermediate, HIVES, 05/02/17) Current Inpatient Medications Current Inpatient Medications Medications (Trade) Dose Ordered Sig/Nathalia Route Start Time Stop Time Status Last Admin Dose Admin Al Hydrox/Mg Hydrox/Simethicone (Maalox Max Susp) 15 ml Q4H PRN PO 11/23/17 17:45 12/23/17 17:44 Magnesium Hydroxide (Milk Of Magnesia Susp) 30 ml Q12H PRN PO 11/23/17 17:45 12/23/17 17:44 Ondansetron HCl (Zofran Inj) 4 mg Q6H PRN IV 11/23/17 17:45 12/23/17 17:44 Polyethylene (Miralax Powder Packet) 17 gm DAILY PRN PO 11/23/17 17:45 12/23/17 17:44 Insulin Aspart (novoLOG ASPART) SLIDING SCALE If C... ACHS SC 11/23/17 21:00 2/18 20:59 12/04/17 12:18 2 UNITS Glucose (Glucose 40% Gel) 15-30 GRAMS 15 GRAMS... UD PRN PO 11/23/17 17:45 12/23/17 17:44 Glucose (Glucose Chew Tab) 4-8 Tablets 4 Tabl... UD PRN PO 11/23/17 17:45 12/23/17 17:44 Dextrose (Dextrose 50% 50ML Syringe) 25-50ML OF 50% DW IV FOR... UD PRN IV 11/23/17 17:45 12/23/17 17:44 Glucagon (Glucagon Inj) 1 mg UD PRN SQ 11/23/17 17:45 12/23/17 17:44 Albuterol Sulfate (Ventolin 0.083% 2.5MG/3ML Neb) 2.5 mg Q4H PRN INH 11/23/17 17:45 12/23/17 17:44 11/27/17 22:13 2.5 MG Atorvastatin Calcium (Lipitor Tab) 10 mg DAILY PO 11/24/17 09:00 12/24/17 08:59 12/04/17 08:16 10 MG Fluoxetine HCl (Prozac Cap) 40 mg QAM PO 11/24/17 09:00 12/24/17 08:59 12/04/17 08:15 40 MG Levalbuterol (Xopenex 1.25MG/ 3ML Neb) 1.25 mg TID INH 11/23/17 21:00 12/23/17 20:59 12/04/17 14:28 1.25 MG Ondansetron HCl (Zofran Tab) 4 mg Q4 PRN PO 11/23/17 17:45 12/23/17 17:44 12/02/17 11:59 4 MG Pantoprazole Sodium (Protonix Tab) 40 mg QAM PO 11/24/17 09:00 12/24/17 08:59 12/04/17 08:15 40 MG Propranolol HCl (Inderal Tab) 10 mg DAILY PO 11/24/17 09:00 12/24/17 08:59 12/04/17 08:16 10 MG Rifaximin (Xifaxan Tab) 550 mg BID PO 11/24/17 09:00 12/24/17 08:59 12/04/17 08:15 550 MG Spironolactone (Aldactone Tab) 100 mg QAM PO 11/27/17 09:00 12/27/17 08:59 12/04/17 08:15 100 MG Furosemide (Lasix Tab) 40 mg QAM PO 11/27/17 09:00 12/27/17 08:59 12/04/17 08:15 40 MG Lactulose (Chronulac Syrup) 30 gm BID PO 11/27/17 21:00 12/23/17 20:59 12/04/17 08:16 30 GM Prednisone (PredniSONE TAB) 20 mg DAILY PO 11/28/17 09:00 12/28/17 08:59 12/04/17 08:16 20 MG Ceftriaxone Sodium 1 gm/ Dextrose 50 ml @ 100 mls/hr Q24H IV 11/29/17 18:00 12/09/17 17:59 12/03/17 18:29 100 MLS/HR Vancomycin HCl (Consult) 1 ea UD PRN N/A 11/29/17 18:15 12/29/17 18:14 Vancomycin HCl 1250 mg/Sodium Chloride 275 ml @ 125 mls/hr Q24H IV 11/30/17 21:00 12/09/17 23:59 12/03/17 21:21 125 MLS/HR Acetaminophen (Tylenol Tab) 650 mg Q8H PRN PO 11/30/17 18:00 12/23/17 17:44 12/04/17 09:34 650 MG Enoxaparin Sodium (Lovenox Inj) 120 mg DAILY@1800 SQ 11/30/17 18:00 12/30/17 17:59 12/03/17 18:30 120 MG Gadobutrol (Gadavist) 8 mmol UD PRN IV 12/01/17 12:45 12/05/17 12:44 Miconazole Nitrate (Desenex Powder) 1 appln BID EXT 12/01/17 21:00 12/31/17 20:59 12/04/17 08:15 1 APPLN Oxycodone HCl (Roxicodone Immediate Rel Tab) 10 mg Q4H PRN PO 12/03/17 15:15 12/07/17 17:44 12/04/17 13:25 10 MG Hydromorphone HCl (Dilaudid Inj) 0.5 mg Q4 PRN IV 12/03/17 15:00 12/17/17 14:59 Insulin Glargine (Lantus Solostar Pen) 25 units BID SC 12/04/17 09:00 12/23/17 20:59 12/04/17 09:31 5 UNITS Review of Systems Constitutional: + weakness, + fatigue, No fever, No chills Eyes: No problem reported ENT: No problem reported Respiratory: No problem reported Cardiovascular: No problem reported Abdomen: + pain, No diarrhea, No GI bleeding Musculoskeletal: + problem reported (Back pain) Genitourinary - Male: No problem reported Neurologic: No problem reported Psychiatric: No problem reported Endocrine: No problem reported Hematologic / Lymphatic: + abnormal bleeding/bruising Integumentary: + new/changing skin lesions Allergic / Immunologic: No problem reported Physical Exam Date Time Temp Pulse Resp B/P (MAP) Pulse Ox O2 Delivery O2 Flow Rate FiO2 12/04/17 14:53 36.4 70 20 105/64 (78) 99 Room Air 12/04/17 14:29 72 16 96 Room Air 12/04/17 08:00 99 Room Air 12/04/17 07:23 36.6 71 18 110/68 (82) 99 Room Air 12/04/17 07:18 68 15 98 Room Air 12/04/17 00:00 BiPAP 12/03/17 23:04 36.8 82 18 105/51 (69) 94 Room Air 12/03/17 19:49 75 16 96 Room Air 12/03/17 18:17 18 95 Room Air 12/03/17 17:10 Room Air 12/03/17 15:33 36.3 71 19 118/75 (89) 97 Room Air General Appearance: WD/WN, no apparent distress, + pertinent finding ( Cushingoid) Head: normocephalic, atraumatic Eyes: normal inspection, EOMI, sclerae normal ENT: normal ENT inspection, pharynx normal Neck: supple, no adenopathy, thyroid normal, trachea midline Respiratory/Chest: chest non-tender, lungs clear, normal breath sounds, no respiratory distress Cardiovascular: regular rate, rhythm, no gallop, + systolic murmur Abdomen/GI: normal bowel sounds, non tender, soft, no organomegaly, + distended , + pertinent finding (Left lower quadrant hernia) Back: normal inspection, no CVA tenderness Extremities/Musculoskelatal: normal inspection, no calf tenderness Neurologic/Psych: alert, oriented x 3 Skin: normal color, no rash Lymphatic: no adenopathy Laboratory Results RUN DATE: 11/29/17 [facility] PAGE 1 RUN TIME: 0739 Specimen Inquiry PATIENT: ALEXIS FENG JR LOC: C.MS2W U # : [id number] AGE/SX: 62/M ROOM: [facility] REG : 11/23/[address]: Beto Driscoll, D.ONoé : 1955 BED: 2 DIS : STATUS: ADM IN TLOC: SPEC #: [id number] ANGELIA: 11/23/17 STATUS: COMP REQ #: [id number] RECD: 11/23/[address]: Antonette Vázquez PA-C SOURCE: BLOOD ENTR: 11/23/17 [facility] DR: Hu Ackerman M.D. [facility]: Americo Lemus M.D. ORDERED: BLOOD CULTURE COMMENTS: Comments to Inside Sales Consultant SAME TIME DIFFERENT SITES Procedure Result Verified Site BLD CULT Final 11/29/17-0739 NO GROWTH Last 24 Hours Test 12/03/17 16:38 12/03/17 19:58 12/04/17 07:50 12/04/17 08:07 Bedside Glucose 331 mg/dl 346 mg/dl 140 mg/dl White Blood Count 8.37 K/uL Red Blood Count 3.20 M/uL Hemoglobin 8.6 g/dL Hematocrit 27.0 % Mean Corpuscular Volume 84.4 fL Mean Corpuscular Hemoglobin 26.9 pg Mean Corpuscular Hemoglobin Concent 31.9 g/dl Platelet Count 124 K/uL Mean Platelet Volume 10.2 fL Neutrophils (%) (Auto) 73.7 % Lymphocytes (%) (Auto) 10.9 % Monocytes (%) (Auto) 11.0 % Eosinophils (%) (Auto) 2.6 % Basophils (%) (Auto) 0.6 % Neutrophils # (Auto) 6.17 K/uL Lymphocytes # (Auto) 0.91 K/uL Monocytes # (Auto) 0.92 K/uL Eosinophils # (Auto) 0.22 K/uL Basophils # (Auto) 0.05 K/uL RDW Standard Deviation 58.6 fL RDW Coefficient of Variation 18.9 % Immature Granulocyte % (Auto) 1.2 % Immature Granulocyte # (Auto) 0.10 K/uL Polychromasia 1+ Poikilocytosis PRESENT Sodium Level 137 mmol/L Potassium Level 4.1 mmol/L Chloride Level 101 mmol/L Carbon Dioxide Level 28 mmol/L Anion Gap 8.0 mmol/L Blood Urea Nitrogen 24 mg/dl Creatinine 1.16 mg/dl Est Creatinine Clear Calc Drug Dose 64.5 ml/min Estimated GFR () 76.7 Estimated GFR (Non- 66.2 BUN/Creatinine Ratio 20.3 Random Glucose 147 mg/dl Calcium Level 8.6 mg/dl Total Bilirubin 1.2 mg/dl Aspartate Amino Transf (AST/SGOT) 40 U/L Alanine Aminotransferase (ALT/SGPT) 38 U/L Alkaline Phosphatase 280 U/L Ammonia 12.5 umol/L Total Protein 5.5 gm/dl Albumin 2.3 gm/dl Globulin 3.2 gm/dl Albumin/Globulin Ratio 0.7 Test 12/04/17 11:07 Bedside Glucose 145 mg/dl Patient Name: ALEXIS FENG JR Unit Number: [id number] Dictated: 12/01/171250 Transcribed: 12/01/171250 KRYSTIAN Printed Date/Time: [~ rep prt dt]/[~ rep prt tm] [~ rep ct labl] - [~ rep ct ivnm] [facility] [place] [address] Dictated: 12/01/171250 Transcribed: 12/01/171250 KRYSTIAN Printed Date/Time: [~ rep prt dt]/[~ rep prt tm] [~ rep ct labl] - [~ rep ct ivnm] [~ rep ct add3]] MRI OF THE LUMBAR SPINE WITH AND WITHOUT CONTRAST CLINICAL HISTORY: Lumbar back pain. Evaluate for discitis or abscess. COMPARISON STUDY: Lumbar spine MRI May 02, [address] November 23, 2017. TECHNIQUE: Utilizing a 1.5 Karla magnet and dedicated coil, multiplanar, multiecho imaging of the lumbar spine was performed before and after uneventful IV administration of 8 mL of Gadavist. FINDINGS: An L4 laminectomy is noted. There is a bilateral pedicle screw fusion from L2 through S1 with cannulated screws extending into the bilateral iliac wings. Prior hardware removal at the L4 and L5 levels is noted. 9 mm anterolisthesis of L4 and L5 is present. Orthopedic hardware extending from the L3-L5 vertebral bodies is noted. Susceptibility artifact from hardware compromises visualization of the central canal. Loss of height of L4 is noted. There is a severe L1 compression fracture. There is a suspected old fracture of the anterior aspect of the S1 vertebral body. Signal abnormality within the operative bed is noted. Note is made of an elongated operative bed fluid collection extends from the mid L2-L5 levels that measures approximately 8.9 x 8.3 x 4.2 cm. No additional fluid collections are identified. No definite epidural fluid collection is identified. There is no MRI evidence of discitis. IMPRESSION: 1. Extensive postoperative findings within lumbar spine, as described above. Susceptibility artifact from the spinal hardware markedly compromises visualization of the lumbar spine. However, no epidural abscess or evidence for discitis. 2. Small nonspecific operative bed fluid collection that extends from L2 through L5. This may reflect a seroma, resolving hematoma or abscess. 3. L1 and L4 fractures which are unchanged since CT of November 23, 2017. Electronically signed by: Shayne Buchanan M.D. 12/01/2017 1:09 PM Dictated Date/Time: 12/01/2017 12:51 PM The status of this report is Signed. Draft = Not yet reviewed or approved by Radiologist. Signed = Reviewed and approved by Radiologist. <AttendingPhy>Antoni Nevarez MD</AttendingPhy> <FamilyPhy>Hu Ackerman M.D.</FamilyPhy> <PrimaryPhy>Hu Ackerman M.D.</PrimaryPhy> < UnitNumber>[id number]</UnitNumber> <VisitNumber>[id number]</VisitNumber> < PatientName>ALEXIS FENG JR</PatientName> <DateOfBirth>1955</ DateOfBirth> <Location>[facility]</Location> <ServiceDate>11/23/17</ServiceDate> < MNE>ESINDI</MNE> <OrderingPhy>Enma Ruggiero PA-C</OrderingPhy> < OrderingPhyMNE>f rep ord dr zapata</OrderingPhyMNE> <DictatingPhyMNE>f rep dict dr zapata</DictatingPhyMNE> <CCListMNE>f rep ct mne</CCListMNE> <AdmittingPhyMNE>f pt admit dr zapata</AdmittingPhyMNE> <AttendingPhyMNE>f pt attend dr zapata</ AttendingPhyMNE> <ConsultingPhyMNE>f pt consult dr zapata</ConsultingPhyMNE> <FamilyPhyMNE>f pt fam dr zapata</FamilyPhyMNE> <OtherPhyMNE>f pt other dr zapata</OtherPhyMNE> < PrimaryPhyMNE>f pt prim care dr zapata</PrimaryPhyMNE> <ReferringPhyMNE>f pt referring dr zapata</ReferringPhyMNE> Assessment & Plan 62-year-old male with previous lumbar infection with diskitis and osteomyelitis as well as possible abscess formation, now admitted mental status changes with evidence of abdominal wall cellulitis. Given that fluid collection seen in the lumbar area is significantly smaller, and sed rate significantly improved, I am not convinced that patient has active lumbar abscess, but may just have residual fluid from previous process. Suspect abdominal wall cellulitis lead to mental status changes. Would continue patient on present antibiotics now with likely in the range of 2 weeks of therapy. Would then consider putting patient back on chronic suppressive therapy. Will discuss with all involved. Will follow.
[2017-12-04] MEDS: HYDROmorphone INJ 1 MG/ML SYR IV PRN (16:10)
[2017-12-04] MEDS: CEFTRIAXONE SOD INJ 1 GM in DEXTROSE 5% ADD-VANTAGE 50ML 50 ML IV SCH (17:40)
[2017-12-04] MEDS: ENOXAPARIN 120 MG/0.8 ML SYR SQ SCH (17:40)
--- NOTE | 2017-12-04 18:05 | PROGRESS NOTE ---
DATE: 12/04/2017 SUBJECTIVE: The patient's abdominal fluid turned out to be a noninfected transudate. The patient continues to be treated with diuretics including Lasix and Aldactone. He is on lactulose and Xifaxan for his encephalopathy with his ammonia level being normal at this time. The patient's weight continues to drop slightly at 81.6 kilograms, which is down about 4 kilograms from 5 days ago. Cultures of the peritoneal fluid are no growth so far. IMPRESSION AND PLAN: The patient has ascites from chronic liver disease, which is a noninfected transudate. Continue to manage him with diuretics and low salt diet.
[2017-12-04] MEDS: VANCOMYCIN INJ 1,250 MG in SODIUM CHLORIDE 0.9% 250ML 250 ML IV SCH (21:25)
[2017-12-05] VITALS (9 sets, daily range): BP systolic 123–129; BP diastolic 57–68; PULSE 65–89; TEMP 36.6–36.8; O2SAT 94–100
[2017-12-05] MEDS: HYDROmorphone INJ 1 MG/ML SYR IV PRN ×2 (03:19→10:35)
[2017-12-05] MEDS: LEVALBUTEROL 1.25MG/3ML NEB INH SCH ×3 (07:24→19:36)
[2017-12-05] MEDS: ATORVASTATIN 10 MG TAB PO SCH (07:46)
[2017-12-05] MEDS: PROPRANOLOL HCL 10 MG TAB PO SCH (07:46)
[2017-12-05] MEDS: FUROSEMIDE 40 MG TAB PO SCH (07:46)
[2017-12-05] MEDS: PANTOprazole SOD 40 MG TAB PO SCH (07:46)
[2017-12-05] MEDS: LACTULOSE SYRUP 30 GM/45 ML UDP PO SCH ×2 (07:46→21:30)
[2017-12-05] MEDS: MICONAZOLE NITRATE POWDER 43 GM EXT SCH ×2 (07:47→21:31)
[2017-12-05] MEDS: RIFAXIMIN TAB 550 MG TAB PO SCH ×2 (07:47→21:31)
[2017-12-05] MEDS: FLUOXETINE HCL 20 MG CAP PO SCH (07:47)
[2017-12-05] MEDS: SPIRONOLACTONE 100 MG TAB PO SCH (07:47)
[2017-12-05] MEDS: INSULIN ASPART 100 UNITS/ML 3 ML PEN SC SCH ×4 (07:52→21:35)
[2017-12-05] MEDS: INSULIN GLARGINE SOLOSTAR 100 UNITS/ML 3 ML PEN SC SCH ×2 (07:53→21:34)
[2017-12-05] MEDS: OXYCODONE HCL IR 5 MG TAB (IMMEDIATE RELEASE) PO PRN (12:23)
--- NOTE | 2017-12-05 15:31 | Hospitalist Progress Note ---
Hospitalist Progress Note Date of Service Dec 05, 2017. (Enma Ruggiero, KRISTENC) Subjective Pt evaluation today including: conversation w/ patient, physical exam, chart review, lab review, review of studies, conversation w/ events solutions consultant, review of inpatient medication list Patient seen and evaluated. No acute events overnight. Just awoke when visiting today and was a little drowsy and slow to respond which is normal for him. ROS limited due to this state. Reports his back is about the same. Not too bothersome when laying down. Will place U/S guided peripheral line to continue IV ABx to complete a 14 day course. Will get [facility]. Medically should be suitable for D/C when approval from [place] obtained. Additional Comments: ROS limited due to mentation. Reporting back pain is about the same.Verbalizes no other issues. (Enma Ruggiero, KRISTENC) Medications Current Inpatient Medications Medications (Trade) Dose Ordered Sig/Nathalia Route Start Time Stop Time Status Last Admin Dose Admin Al Hydrox/Mg Hydrox/Simethicone (Maalox Max Susp) 15 ml Q4H PRN PO 11/23/17 17:45 12/23/17 17:44 Magnesium Hydroxide (Milk Of Magnesia Susp) 30 ml Q12H PRN PO 11/23/17 17:45 12/23/17 17:44 Ondansetron HCl (Zofran Inj) 4 mg Q6H PRN IV 11/23/17 17:45 12/23/17 17:44 Polyethylene (Miralax Powder Packet) 17 gm DAILY PRN PO 11/23/17 17:45 12/23/17 17:44 Insulin Aspart (novoLOG ASPART) SLIDING SCALE If C... ACHS SC 11/23/17 21:00 12/23/17 20:59 12/05/17 13:04 8 UNITS Glucose (Glucose 40% Gel) 15-30 GRAMS 15 GRAMS... UD PRN PO 11/23/17 17:45 12/23/17 17:44 Glucose (Glucose Chew Tab) 4-8 Tablets 4 Tabl... UD PRN PO 11/23/17 17:45 12/23/17 17:44 Dextrose (Dextrose 50% 50ML Syringe) 25-50ML OF 50% DW IV FOR... UD PRN IV 11/23/17 17:45 12/23/17 17:44 Glucagon (Glucagon Inj) 1 mg UD PRN SQ 11/23/17 17:45 12/23/17 17:44 Albuterol Sulfate (Ventolin 0.083% 2.5MG/3ML Neb) 2.5 mg Q4H PRN INH 11/23/17 17:45 12/23/17 17:44 11/27/17 22:13 2.5 MG Atorvastatin Calcium (Lipitor Tab) 10 mg DAILY PO 11/24/17 09:00 12/24/17 08:59 12/05/17 07:46 10 MG Fluoxetine HCl (Prozac Cap) 40 mg QAM PO 11/24/17 09:00 12/24/17 08:59 12/05/17 07:47 40 MG Levalbuterol (Xopenex 1.25MG/ 3ML Neb) 1.25 mg TID INH 11/23/17 21:00 12/23/17 20:59 12/05/17 14:24 1.25 MG Ondansetron HCl (Zofran Tab) 4 mg Q4 PRN PO 11/23/17 17:45 12/23/17 17:44 12/02/17 11:59 4 MG Pantoprazole Sodium (Protonix Tab) 40 mg QAM PO 11/24/17 09:00 12/24/17 08:59 12/05/17 07:46 40 MG Propranolol HCl (Inderal Tab) 10 mg DAILY PO 11/24/17 09:00 12/24/17 08:59 12/05/17 07:46 10 MG Rifaximin (Xifaxan Tab) 550 mg BID PO 11/24/17 09:00 12/24/17 08:59 12/05/17 07:47 550 MG Spironolactone (Aldactone Tab) 100 mg QAM PO 11/27/17 09:00 12/27/17 08:59 12/05/17 07:47 100 MG Furosemide (Lasix Tab) 40 mg QAM PO 11/27/17 09:00 12/27/17 08:59 12/05/17 07:46 40 MG Lactulose (Chronulac Syrup) 30 gm BID PO 11/27/17 21:00 12/23/17 20:59 12/05/17 07:46 30 GM Prednisone (PredniSONE TAB) 20 mg DAILY PO 11/28/17 09:00 12/28/17 08:59 12/05/17 07:47 20 MG Ceftriaxone Sodium 1 gm/ Dextrose 50 ml @ 100 mls/hr Q24H IV 11/29/17 18:00 12/09/17 17:59 12/04/17 17:40 100 MLS/HR Vancomycin HCl (Consult) 1 ea UD PRN N/A 11/29/17 18:15 12/29/17 18:14 Vancomycin HCl 1250 mg/Sodium Chloride 275 ml @ 125 mls/hr Q24H IV 11/30/17 21:00 12/09/17 23:59 12/04/17 21:25 125 MLS/HR Acetaminophen (Tylenol Tab) 650 mg Q8H PRN PO 11/30/17 18:00 12/23/17 17:44 12/04/17 17:41 650 MG Enoxaparin Sodium (Lovenox Inj) 120 mg DAILY@1800 SQ 11/30/17 18:00 12/30/17 17:59 12/04/17 17:40 120 MG Miconazole Nitrate (Desenex Powder) 1 appln BID EXT 12/01/17 21:00 12/31/17 20:59 12/05/17 07:47 1 APPLN Oxycodone HCl (Roxicodone Immediate Rel Tab) 10 mg Q4H PRN PO 12/03/17 15:15 12/07/17 17:44 12/05/17 12:23 10 MG Hydromorphone HCl (Dilaudid Inj) 0.5 mg Q4 PRN IV 12/03/17 15:00 12/17/17 14:59 12/05/17 10:35 0.5 MG Insulin Glargine (Lantus Solostar Pen) 25 units BID SC 12/04/17 09:00 12/23/17 20:59 12/05/17 07:53 25 UNITS (Enma Ruggiero PA-C) Objective Vital Signs Date Time Temp Pulse Resp B/P (MAP) Pulse Ox O2 Delivery O2 Flow Rate FiO2 12/05/17 14:24 89 16 95 Room Air 12/05/17 08:00 95 Room Air 12/05/17 07:48 36.6 65 20 129/57 (81) 100 12/05/17 07:24 88 16 95 Room Air 12/05/17 00:00 94 Room Air 12/04/17 23:39 36.7 95 18 121/57 (78) 96 Room Air 12/04/17 19:47 83 16 94 Room Air 12/04/17 16:00 99 Room Air (Enma Ruggiero PA-C) Physical Exam General Appearance: WD/WN, no apparent distress Neck: supple, no JVD, trachea midline Respiratory/Chest: lungs clear, normal breath sounds, no respiratory distress, no accessory muscle use Cardiovascular: regular rate, rhythm Abdomen: normal bowel sounds, non tender, soft, + pertinent finding (no erythema; reducible hernia to LLQ) Neurologic/Psychiatric: alert (but lethargic) (Enma Ruggiero, KRISTENC) Laboratory Results Last 24 Hours Test 12/04/17 16:32 12/04/17 20:01 12/05/17 07:28 12/05/17 11:05 Bedside Glucose 300 mg/dl 264 mg/dl 135 mg/dl 181 mg/dl (Enma Ruggiero, KRISTENC) Assessment and Plan Mr. 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 Acute Metabolic Encephalopathy: RESOLVED 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 with Fluid Filled Collection : Seroma vs Healing Hematoma vs Abscess - Continue Rocephin 1 g IV daily to complete 14 day course - Will complete on - U/S guided peripheral line placed - Continue back brace and monitor; PRN pain medication - Consult Spine - plan to have outpatient F/U with Dr. Birmingham ([facility]) - ID following - recommending 2 weeks IV Abx L-Sided Abdominal Cellulitis vs Stasis: - Continue Rocephin 1 g IV daily to complete 14 day course - Will complete on - U/S guided peripheral line placed R Common Femoral DVT and Superficial Femoral Vein: - Lovenox 1.5 mg/kg daily - will need anticoagulation x 3 months - Will need BID dosing on D/C due to insurance coverage - reporting BID dosing to be $100/month and states this is feasible x 3 months LETTY vs New Baseline Cr: - Cr rather stable but fluctuating between WNL and mild elevation Chronic Diastolic CHF: STABLE 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 with Portal HTN and Ascites and Thrombocytopenia: - Continue Lasix 40 mg daily and tolerating increased Spironolactone 100 mg daily - Lactulose 30 g BID and will continue Xifaxan 550 mg BID - GI following - appreciate further recommendations T2DM: A1c 8.4 (Sep 2017) - Lantus 25 units SC BID and SSI - Reporting that he does not want a diabetic diet and will adjust insulin for better coverage Sarcoidosis with Extra-Pulmonary Effects: - Ventolin Q4H PRN and Xopenex neb TID - Prednisone 20 mg daily HLD: - Atorvastatin 10 mg daily HTN: - Propranolol 10 mg daily DVT Prophylaxis: Heparin gtt Code Status: FULL RESUSCITATION Disposition: - Await [facility] approval - Recommend outpatient F/U with [facility] Surgeon quickly thereafter. Continued [facility] stay due to: multiple IV medications needed Discharge planning: rehab hospital (Enma Ruggiero, KRISTENC) PA Physician Supervision Note: I interviewed and examined the patient. Discussed with Enma Ruggiero PAC and agree with findings and plan as documented in the note. Any exceptions or clarifications are listed here: None Patient is now complaining of more pain in his back he said no persistent fevers and encephalopathy has cleared since being initiated on antibiotics is difficult to tell given the mechanics of his back at this is purely a isolated incident or progression of his hematoma/seroma/abscess. It is back pain does not improve reimaging of his back would be warranted certainly if he has a neurological compromise is also likely be warranted signed vital signs are reviewed and stable no fever Patient is arousable but lethargic his abdomen is protuberant NABS and likely some dullness or ascites the patient can move his legs against gravity reflexes are difficult to ascertain Fluid collection in his back after failed back surgery with the patient with multiple [place] morbid problems including being on therapeutic anticoagulation for recent DVT Supportive care continuing treatment for possible infection with eyes towards moving to debilitation however if the pain continues to be persistent reimaging of his back prior to transfer may be warranted. We'll gently escalate his opiate pain control due to poor pain control today. The patient did require parenteral pain control today Documented By: Americo Edwards (Americo dEwards M.D.)
--- NOTE | 2017-12-05 15:41 | Infectious Disease Progress Nt ---
Progress Note Date of Service Dec 05, 2017. Subjective Pt evaluation today including: conversation w/ patient, conversation w/ family , physical exam, chart review, lab review, review of studies, conversation w/ network security consultant, review of inpatient medication list Patient appears about the same today states pain in his back unchanged. He remains afebrile. No other new complaints. All Other Systems: Reviewed and Negative Medications Current Inpatient Medications Medications (Trade) Dose Ordered Sig/Nathalia Route Start Time Stop Time Status Last Admin Dose Admin Al Hydrox/Mg Hydrox/Simethicone (Maalox Max Susp) 15 ml Q4H PRN PO 11/23/17 17:45 12/23/17 17:44 Magnesium Hydroxide (Milk Of Magnesia Susp) 30 ml Q12H PRN PO 11/23/17 17:45 12/23/17 17:44 Ondansetron HCl (Zofran Inj) 4 mg Q6H PRN IV 11/23/17 17:45 12/23/17 17:44 Polyethylene (Miralax Powder Packet) 17 gm DAILY PRN PO 11/23/17 17:45 12/23/17 17:44 Insulin Aspart (novoLOG ASPART) SLIDING SCALE If C... ACHS SC 11/23/17 21:00 12/23/17 20:59 12/05/17 13:04 8 UNITS Glucose (Glucose 40% Gel) 15-30 GRAMS 15 GRAMS... UD PRN PO 11/23/17 17:45 12/23/17 17:44 Glucose (Glucose Chew Tab) 4-8 Tablets 4 Tabl... UD PRN PO 11/23/17 17:45 12/23/17 17:44 Dextrose (Dextrose 50% 50ML Syringe) 25-50ML OF 50% DW IV FOR... UD PRN IV 11/23/17 17:45 12/23/17 17:44 Glucagon (Glucagon Inj) 1 mg UD PRN SQ 11/23/17 17:45 12/23/17 17:44 Albuterol Sulfate (Ventolin 0.083% 2.5MG/3ML Neb) 2.5 mg Q4H PRN INH 11/23/17 17:45 12/23/17 17:44 11/27/17 22:13 2.5 MG Atorvastatin Calcium (Lipitor Tab) 10 mg DAILY PO 11/24/17 09:00 12/24/17 08:59 12/05/17 07:46 10 MG Fluoxetine HCl (Prozac Cap) 40 mg QAM PO 11/24/17 09:00 12/24/17 08:59 12/05/17 07:47 40 MG Levalbuterol (Xopenex 1.25MG/ 3ML Neb) 1.25 mg TID INH 11/23/17 21:00 12/23/17 20:59 12/05/17 14:24 1.25 MG Ondansetron HCl (Zofran Tab) 4 mg Q4 PRN PO 11/23/17 17:45 12/23/17 17:44 12/02/17 11:59 4 MG Pantoprazole Sodium (Protonix Tab) 40 mg QAM PO 11/24/17 09:00 12/24/17 08:59 12/05/17 07:46 40 MG Propranolol HCl (Inderal Tab) 10 mg DAILY PO 11/24/17 09:00 12/24/17 08:59 12/05/17 07:46 10 MG Rifaximin (Xifaxan Tab) 550 mg BID PO 11/24/17 09:00 12/24/17 08:59 12/05/17 07:47 550 MG Spironolactone (Aldactone Tab) 100 mg QAM PO 11/27/17 09:00 12/27/17 08:59 12/05/17 07:47 100 MG Furosemide (Lasix Tab) 40 mg QAM PO 11/27/17 09:00 12/27/17 08:59 12/05/17 07:46 40 MG Lactulose (Chronulac Syrup) 30 gm BID PO 11/27/17 21:00 12/23/17 20:59 12/05/17 07:46 30 GM Prednisone (PredniSONE TAB) 20 mg DAILY PO 11/28/17 09:00 12/28/17 08:59 12/05/17 07:47 20 MG Ceftriaxone Sodium 1 gm/ Dextrose 50 ml @ 100 mls/hr Q24H IV 11/29/17 18:00 12/09/17 17:59 12/04/17 17:40 100 MLS/HR Vancomycin HCl (Consult) 1 ea UD PRN N/A 11/29/17 18:15 12/29/17 18:14 Vancomycin HCl 1250 mg/Sodium Chloride 275 ml @ 125 mls/hr Q24H IV 11/30/17 21:00 12/09/17 23:59 12/04/17 21:25 125 MLS/HR Acetaminophen (Tylenol Tab) 650 mg Q8H PRN PO 11/30/17 18:00 12/23/17 17:44 12/04/17 17:41 650 MG Enoxaparin Sodium (Lovenox Inj) 120 mg DAILY@1800 SQ 11/30/17 18:00 12/30/17 17:59 12/04/17 17:40 120 MG Miconazole Nitrate (Desenex Powder) 1 appln BID EXT 12/01/17 21:00 12/31/17 20:59 12/05/17 07:47 1 APPLN Oxycodone HCl (Roxicodone Immediate Rel Tab) 10 mg Q4H PRN PO 12/03/17 15:15 12/07/17 17:44 12/05/17 12:23 10 MG Hydromorphone HCl (Dilaudid Inj) 0.5 mg Q4 PRN IV 12/03/17 15:00 12/17/17 14:59 12/05/17 10:35 0.5 MG Insulin Glargine (Lantus Solostar Pen) 25 units BID SC 12/04/17 09:00 12/23/17 20:59 12/05/17 07:53 25 UNITS Objective Vital Signs Date Time Temp Pulse Resp B/P (MAP) Pulse Ox O2 Delivery O2 Flow Rate FiO2 12/05/17 14:24 89 16 95 Room Air 12/05/17 08:00 95 Room Air 12/05/17 07:48 36.6 65 20 129/57 (81) 100 12/05/17 07:24 88 16 95 Room Air 12/05/17 00:00 94 Room Air 12/04/17 23:39 36.7 95 18 121/57 (78) 96 Room Air 12/04/17 19:47 83 16 94 Room Air 12/04/17 16:00 99 Room Air Physical Exam General Appearance: WD/WN, no apparent distress Eyes: normal inspection, EOMI, sclerae normal ENT: normal ENT inspection, pharynx normal Neck: supple, no adenopathy, trachea midline Respiratory/Chest: chest non-tender, lungs clear, normal breath sounds, no respiratory distress Cardiovascular: regular rate, rhythm, no gallop, no murmur Abdomen: normal bowel sounds, non tender, soft, no organomegaly, + pertinent finding (Left lower quadrant reducible hernia) Extremities: non-tender, no calf tenderness Neurologic/Psychiatric: alert, oriented x 3 Skin: normal color, no rash Lymphatic: no adenopathy Laboratory Results RUN DATE: 12/02/17 [facility] LAB PAGE 1 RUN TIME: 1302 Specimen Inquiry PATIENT: ALEXIS FENG JR LOC: [id number] U # : [id number] AGE/SX: 62/M ROOM: [facility] REG : 11/23/[address]: Antoni Nevarez MD : [id number] BED: 2 DIS : STATUS: ADM IN TLOC: SPEC #: [id number] ANGELIA: 11/30/17 STATUS: COMP REQ #: [id number] RECD: 11/30/[address]: Antoni Nevarez MD SOURCE: KULDEEP, JAYLENE ENTR: 11/30/[address] [facility] [address]: Hu Ackerman M.D. [facility]: Roberto Rubio M.D. Hegstrom, Michael T., M.D. Kevin Plascencia MD O'Donnell, Sean B. , MD Najera, Brant Givens M.D. ORDERED: CULTURE URCLEAN COMMENTS: Has Specimen Been Obtained/Collected? Y Procedure Result Verified Site URINE CULTURE Final 12/02/17-1302 Organism 1 YEAST COLONY COUNT 8,000 CFU/ml SENS NO SENSITIVITY TO FOLLOW Last 24 Hours Test 12/04/17 16:32 12/04/17 20:01 12/05/17 07:28 12/05/17 11:05 Bedside Glucose 300 mg/dl 264 mg/dl 135 mg/dl 181 mg/dl Assessment and Plan 62-year-old male with previous lumbar infection with diskitis and osteomyelitis as well as possible abscess formation, now admitted mental status changes with evidence of abdominal wall cellulitis. MRI with small collection in the lumbar area consistent with seroma, more likely than abscess. Case discussed with Dr. Gray. He agrees that abscess unlikely specially given relatively normal sed rate. Patient to be treated with 2 weeks of antibiotics to cover abdominal wall cellulitis, and he will be re-evaluated in the near future with [facility] spine surgery. Will follow.
[2017-12-05] MEDS ORDERED: LIDODERM (LIDOCAINE) PATCH 5% TD ONE (17:00)
[2017-12-05] MEDS: ENOXAPARIN 120 MG/0.8 ML SYR SQ SCH (17:51)
[2017-12-05] MEDS: CEFTRIAXONE SOD INJ 1 GM in DEXTROSE 5% ADD-VANTAGE 50ML 50 ML IV SCH (17:57)
[2017-12-05] MEDS: ACETAMINOPHEN 325 MG TAB PO PRN (19:20)
[2017-12-05] MEDS ORDERED: VANCOMYCIN TROUGH ONE (20:30)
[2017-12-05] MEDS: VANCOMYCIN INJ 1,250 MG in SODIUM CHLORIDE 0.9% 250ML 250 ML IV SCH (21:36)
[2017-12-06] VITALS (7 sets, daily range): BP systolic 128–135; BP diastolic 71–75; PULSE 77–89; TEMP 36.8–37.1; O2SAT 96–98
[2017-12-06] MEDS: OXYCODONE HCL IR 5 MG TAB (IMMEDIATE RELEASE) PO PRN ×2 (02:07→14:39)
[2017-12-06 07:18] LABS: CREATININE 1.25 mg/dl (0.60-1.40)
[2017-12-06] MEDS: LEVALBUTEROL 1.25MG/3ML NEB INH SCH ×2 (07:26→13:56)
[2017-12-06] MEDS: FUROSEMIDE 40 MG TAB PO SCH (07:54)
[2017-12-06] MEDS: MICONAZOLE NITRATE POWDER 43 GM EXT SCH (07:54)
[2017-12-06] MEDS: FLUOXETINE HCL 20 MG CAP PO SCH (07:55)
[2017-12-06] MEDS: PANTOprazole SOD 40 MG TAB PO SCH (07:55)
[2017-12-06] MEDS: SPIRONOLACTONE 100 MG TAB PO SCH (07:55)
[2017-12-06] MEDS: ATORVASTATIN 10 MG TAB PO SCH (07:55)
[2017-12-06] MEDS: PROPRANOLOL HCL 10 MG TAB PO SCH (07:55)
[2017-12-06] MEDS: RIFAXIMIN TAB 550 MG TAB PO SCH (07:55)
[2017-12-06] MEDS: LACTULOSE SYRUP 30 GM/45 ML UDP PO SCH (07:55)
[2017-12-06] MEDS: INSULIN GLARGINE SOLOSTAR 100 UNITS/ML 3 ML PEN SC SCH (08:16)
[2017-12-06] MEDS: INSULIN ASPART 100 UNITS/ML 3 ML PEN SC SCH ×3 (08:17→17:29)
[2017-12-06] MEDS ORDERED: LIDODERM (LIDOCAINE) PATCH 5% TD SCH (09:00)
[2017-12-06] MEDS ORDERED: ENOX40IN SC (14:42)
[2017-12-06] MEDS ORDERED: MCTP EXT (14:42)
[2017-12-06] MEDS ORDERED: LDDP5 TD (14:42)
[2017-12-06] MEDS ORDERED: RCPAV1 IV (14:42)
[2017-12-06] MEDS ORDERED: FRS/40 PO (14:42)
[2017-12-06] MEDS ORDERED: OXYC1TAB3 PO (14:42)
[2017-12-06] MEDS ORDERED: XFX550 PO (14:42)
[2017-12-06] MEDS ORDERED: SPRN100 PO (14:42)
[2017-12-06] MEDS ORDERED: INSDGIPEN SC (14:42)
--- NOTE | 2017-12-06 14:51 | Discharge Instructions ---
Discharge Instructions Date of Service Dec 06, 2017. Admission Reason for Admission: Cellulitis Of Left Abdominal Wall, Dvt Femoral Discharge Discharge Diagnosis / Problem: Abdominal Cellulitis and DVT Discharge Goals Goal(s): Decrease discomfort, Improve function, Increase independence Activity Recommendations Activity Level: Assistance Required Therapies: Physical Therapy, Occupational Therapy . Additional Information Patient informed of condition: Yes Advance Directives: No DNR: No Level of Care: Acute Rehab Communicable Disease: No Prognosis: Stable Instructions / Follow-Up Instructions / Follow-Up Mr. 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 Acute Metabolic Encephalopathy: RESOLVED - Ammonia levels have been normal during admission and did not seem to be hepatic related - improved with IV Abx - Does have a tendency to be lethargic in the morning coming off BiPAP but then mentation stabilizes 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 with Fluid Filled Collection on MRI: Seroma vs Healing Hematoma vs Abscess - Continue Rocephin 1 g IV daily to complete 14 day course - Will complete on - U/S guided peripheral line placed - Continue back brace and monitor; PRN pain medication - Consult Spine - plan to have outpatient F/U with Dr. Birmingham ([facility] ) - does have an established appt. for January 20 but if this could be arranged sooner this would be beneficial - discussed with [facility] and recommending non -urgent evaluation for possible need for drainage? - ID following - recommending 2 weeks IV Abx - low suspicion this is an abscess but thinks more related to abdominal wall cellulitis L Ankle Injury: - Patient sustained a fall early in admission reporting "twisting his ankle" - XR as follows: Distraction lateral margin distal fibula. No well-defined acute fracture line. Ankle mortise is aligned anatomically. All remaining osseous structures are unremarkable. Moderate generalized degenerative change throughout. There is no evidence for soft tissue swelling. IMPRESSION: Subtle periosteal reaction lateral margin distal fibular shaft. 2. This most likely indicates healing stress fracture. - Will place walking boot on and can be WBAT with boot on for ambulation. Can remove boot when resting - He will need outpatient orthopedic appointment with follow-up XR per their discretion L-Sided Abdominal Cellulitis vs Stasis: - Continue Rocephin 1 g IV daily to complete 14 day course - Will complete on - U/S guided peripheral line placed - Did have 2 paracentesis procedures and no sign of infection - may need therapeutic taps in the future? 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 with Portal HTN and Ascites and Thrombocytopenia: - Continue Lasix 40 mg daily and tolerating increased Spironolactone 100 mg daily (these were changed from home dosing and can be adjusted per his PCP when D/Cd) - Lactulose 30 g BID and will continue Xifaxan 550 mg BID T2DM: A1c 8.4 (Sep 2017) - Lantus 25 units SC BID and SSI - Reporting that he does not want a diabetic diet and will adjust insulin for better coverage Sarcoidosis with Extra-Pulmonary Effects: - Ventolin Q4H PRN and Xopenex neb TID - Prednisone 20 mg daily HLD: - Atorvastatin 10 mg daily HTN: - Propranolol 10 mg daily Code Status: FULL RESUSCITATION Disposition: - F/U appointment with Dr. Birmingham and Dr. Nielsen prior to D/C - If back pain worsens could consider F/U MRI for further evaluation - Does use BiPAP at night Current Hospital Diet Patient's current hospital diet: Low Sodium Diet (2gm Na) Discharge Diet Recommended Diet: Low Sodium Diet (2gm Na) Pending Studies Studies pending at discharge: no Physician Orders On Transfer POLST Discussion: Not Applicable Medical Emergencies . Who to Call and When: Medical Emergencies: If at any time you feel your situation is an emergency, please call 911 immediately. . Non-Emergent Contact Non-Emergency issues call your: Primary Care Provider Call Non-Emergent contact if: you have a fever, your pain is concerning you, you have any medication questions . . "Provider Documentation" section prepared by Enma Ruggiero. . Core Measure Problem Core Measures: None
--- NOTE | 2017-12-06 15:47 | DIAGNOSTIC IMAGING REPORT ---
R ANKLE MIN 3 VIEWS ROUTINE CLINICAL HISTORY: R Ankle Pain - Lateral/Distal fib trauma. Pain. COMPARISON: None. DISCUSSION: Subtle Distraction lateral margin distal fibula. No well-defined acute fracture line. Ankle mortise is aligned anatomically. All remaining osseous structures are unremarkable. Moderate generalized degenerative change throughout. There is no evidence for soft tissue swelling. IMPRESSION: Subtle periosteal reaction lateral margin distal fibular shaft. 2. This most likely indicates healing stress fracture. The above report was generated using voice recognition software. It may contain grammatical, syntax or spelling errors. Electronically signed by: Naga Vázquez M.D. 12/06/2017 3:46 PM Dictated Date/Time: 12/06/2017 3:45 PM
[2017-12-06] MEDS: CEFTRIAXONE SOD INJ 1 GM in DEXTROSE 5% ADD-VANTAGE 50ML 50 ML IV SCH (16:23)
[2017-12-06] MEDS: ENOXAPARIN 120 MG/0.8 ML SYR SQ SCH (17:30)
--- NOTE | 2017-12-06 19:44 | Discharge Summary ---
Discharge Summary Date of Service Dec 06, 2017. Discharge Summary Admission Date: Nov 23, 2017 at 17:40 Discharge Date: Dec 06, 2017 Discharge Disposition: Rehab Principal Diagnosis: Abdominal Wall Cellulitis and Femoral DVT Problems/Secondary Diagnoses: 1. 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 Portal HTN 3. T2DM 4. Sarcoidosis with Extra-Pulmonary Effects 5. THUY on BiPAP 6. HLD 7. HTN 8. Thrombocytopenia Immunizations: Have You Had Influenza Vaccine: Yes Influenza Vaccine Date: Oct 07, 2005 History of Tetanus Vaccine?: Unknown History of Pneumococcal: Yes Pneumococcal Date: Oct 07, 2004 History of Hepatitis B Vaccine: No Procedures: MRI OF THE LUMBAR SPINE WITH AND WITHOUT CONTRAST FINDINGS: An L4 laminectomy is noted. There is a bilateral pedicle screw fusion from L2 through S1 with cannulated screws extending into the bilateral iliac wings. Prior hardware removal at the L4 and L5 levels is noted. 9 mm anterolisthesis of L4 and L5 is present. Orthopedic hardware extending from the L3-L5 vertebral bodies is noted. Susceptibility artifact from hardware compromises visualization of the central canal. Loss of height of L4 is noted. There is a severe L1 compression fracture. There is a suspected old fracture of the anterior aspect of the S1 vertebral body. Signal abnormality within the operative bed is noted. Note is made of an elongated operative bed fluid collection extends from the mid L2-L5 levels that measures approximately 8.9 x 8.3 x 4.2 cm. No additional fluid collections are identified. No definite epidural fluid collection is identified. There is no MRI evidence of discitis. IMPRESSION: 1. Extensive postoperative findings within lumbar spine, as described above. Susceptibility artifact from the spinal hardware markedly compromises visualization of the lumbar spine. However, no epidural abscess or evidence for discitis. 2. Small nonspecific operative bed fluid collection that extends from L2 through L5. This may reflect a seroma, resolving hematoma or abscess. 3. L1 and L4 fractures which are unchanged since CT of November 23, 2017. ABD/PELVIS IV CONTRAST ONLY FINDINGS: Intermodal Dispatcher topogram: Lumbar fusion hardware. Lung bases: Minimal basilar opacities, likely atelectasis. Overall decreased peribronchovascular and dependent consolidation from prior. Calcified granuloma noted in the left lower lobe. Multichamber enlargement of the heart. Postsurgical changes of the interatrial septum. Coronary artery and aortic valve calcification. No pericardial or pleural effusion. Liver: Nodular contour of the liver consistent with cirrhosis. Allowing for the single phase of contrast, no focal liver lesion. Patent hepatic vasculature. Biliary: No intrahepatic or extrahepatic biliary ductal dilatation. Gallbladder decompressed. Pancreas: Decreased peripancreatic fluid and inflammatory change. Pancreatic parenchyma normal-appearing. Spleen: Mildly enlarged measuring slightly more than 13 cm in maximal sagittal dimension. Adrenal glands: Normal. Kidneys and ureters: Well-defined hypodensity in the left kidney likely simple cyst. Mild cortical thinning may be present. Nonobstructing left renal calculus measures 5 mm. No hydronephrosis. Normal ureters. Bladder: Normal. Pelvic organs: Prostate and seminal vesicles normal. Bowel: Limited diverticulosis of the optimal sigmoid colon. No bowel obstruction. Feces in the small bowel could suggest delayed transit. Duodenal diverticulum noted at the level of the pancreatic head. Mild small bowel wall thickening in the jejunum could relate to portal enteropathy. Peritoneal cavity: Moderate amount of simple appearing ascites in the abdomen and pelvis. There is also a peritoneal defect allowing herniation of ascites into the left retroperitoneum as well as through the anterior peritoneum where there is both interfascial loculated ascites as well as more superficial ascites in the subcutaneous tissue of the left lower quadrant. The volume of herniated ascites has increased from prior. No internal complexity. No free air. Lymph nodes: No enlarged lymph nodes in the abdomen or pelvis. Vasculature: Slight expansion of the right superficial femoral vein and right common femoral vein with a suspected filling defect worrisome for thrombus (series 3 image 455). Atherosclerosis of the normal caliber abdominal aorta. Abdominal wall: Fat-containing right inguinal hernia. Extensive skin thickening and subcutaneous infiltration along the left lateral abdominal wall and left lower quadrant. Musculoskeletal: Posterior lumbar fusion hardware with bridging across the sacroiliac joints. Compression deformity of the L1 vertebral body. This is new from prior. Severe osteopenia. IMPRESSION: 1. Interval development of a compression fracture of L1 in the setting of severe osteopenia. 2. Moderate ascites with increased herniation into the left retroperitoneum, left anterior abdominal wall musculature, and left anterior subcutaneous tissue. The surrounding skin thickening and subcutaneous infiltration in the left anterolateral abdominal wall could suggest associated cellulitis. No internal complexity of the herniated/loculated fluid. Sterility of these collections cannot be confirmed by CT. 3. Interval development of a suspected deep venous thrombosis in the right common and superficial femoral veins. This could be confirmed with lower extremity Doppler venous ultrasound. 4. Cirrhosis with portal hypertension evidenced by mild spinal megaly and ascites. 5. Bibasilar atelectasis. ULTRASOUND R VENOUS DOPP LOWER EXT UNILAT FINDINGS: There is thrombus within the right common femoral and proximal superficial femoral vein. No thrombus is visualized within the popliteal vein or proximal trifurcation veins of the calf. There is a 3 x 1 x 1.7 cm right popliteal cyst. IMPRESSION: Right lower extremity DVT involving the common femoral and proximal superficial femoral vein. PARACENTESIS UNDER ULTRASOUND GUIDANCE PROCEDURE: The risks, benefits, and alternatives to the procedure were discussed with the patient who voiced understanding. Written informed consent was obtained. Following real-time ultrasound localization of a suitable pocket of fluid in the left lower quadrant, the abdomen was prepped and draped in the usual sterile fashion. The skin and soft tissues were anesthetized with 1% lidocaine. The sheathed paracentesis was inserted and approximately 3.8 liters of tameka colored ascitic fluid was removed by vacuum suction. The procedure was well tolerated and without immediate complication. The patient left the department in satisfactory condition. IMPRESSION: Successful ultrasound-guided paracentesis with removal of approximately 3.8 liters of ascitic fluid. R ANKLE MIN 3 VIEWS ROUTINE Distraction lateral margin distal fibula. No well-defined acute fracture line. Ankle mortise is aligned anatomically. All remaining osseous structures are unremarkable. Moderate generalized degenerative change throughout. There is no evidence for soft tissue swelling. IMPRESSION: 1. Subtle periosteal reaction lateral margin distal fibular shaft. 2. This most likely indicates healing stress fracture. Consultations: 1. Gastroenterology 2. Vascular Surgery 3. Infectious Disease 4. General Surgery 5. Hematology 6. Orthopedic Spine Medication Reconciliation New Medications: Ceftriaxone Sod (Rocephin) 1 Gm Inj 1 GM IV DAILY for 6 Days, VIAL Start on 12/07/17. Enoxaparin (Lovenox) 40 Mg/0.4 Ml Inj 80 MG SC BID for 30 Days Insulin Glargine (Lantus Solostar) 100 Unit/Ml Inj 25 UNITS SC BID for 30 Days Lidocaine (Lidocaine) 1 Patch Tdsy 1 PATCH TD QAM for 30 Days Miconazole Nitrate (Desenex Shake Powder) 43 Appln/43 Gm Powd 1 APPLN EXT BID for 30 Days Rifaximin (Xifaxan) 550 Mg Tab 550 MG PO BID for 30 Days, #60 TAB Changed Medications: Furosemide (Lasix) 40 Mg Tab 40 MG PO DAILY for 30 Days, #30 TABS (Changed from: BID) Oxycodone Ir (Roxicodone Ir) 5 Mg Tab 5-10 MG PO Q4H PRN for Pain for 3 Days, #20 (Changed from: 5 MG) Spironolactone (Spironolactone) 100 Mg Tab 100 MG PO DAILY for 30 Days, #30 TABS (Changed from: Spironolactone 25 Mg Tab 50 Mg PO DAILY) Continued Medications: Acetaminophen (Tylenol) 500 Mg Tab 500 MG PO Q4H PRN for Pain Albuterol Sulf (Albuterol Sulfate) 2.5 Mg/3 Ml Nebu 2.5 MG INH Q4H PRN for SOB/Wheezing Atorvastatin (Lipitor) 10 Mg Tab 10 MG PO DAILY Cyclosporine (Ophth) (Restasis) 0.05 % Emu 1 DROP OPB BID Fluoxetine (Prozac) 40 Mg Cap 40 MG PO QAM Insulin Aspart (Novolog Penfill) 100 Unit/Ml Inj SC AC SLIDING SCALE Lactulose (Chronulac) 10 Gm/15 Ml Syrp 30 ML PO BID Levalbuterol (Levalbuterol HCl) 1.25 Mg/3 Ml Nebu 1.25 MG INH TID Ondansetron Hcl (Zofran) 4 Mg Tab 4 MG PO Q4 PRN for Nausea, TAB Pantoprazole (Protonix) 40 Mg Tab 40 MG PO QAM Potassium Ext Rel (Klor-Con) 20 Meq Tabcr 20 MEQ PO BIDM Prednisone (Prednisone) 20 Mg Tab 20 MG PO QAM Propranolol (Inderal) 10 Mg Tab 10 MG PO DAILY Discontinued Medications: Insulin Glargine (Lantus) Unknown Strength Inj 20 UNITS SC BID Discharge Exam Review of Systems: Constitutional: No fever, No chills ENT: No nasal symptoms, No sore throat, No trouble swallowing Respiratory: No cough, No wheezing, No shortness of breath Cardiovascular: No chest pain Abdomen: No pain, No nausea, No vomiting, No diarrhea, No constipation Musculoskeletal: + joint pain (R lateral ankle), + problem reported (stable back pain), No swelling, No calf pain Genitourinary - Male: No dysuria Hematologic / Lymphatic: + abnormal bleeding/bruising (improving) Physical Exam: General Appearance: WD/WN, no apparent distress Eyes: sclerae normal ENT: hearing grossly normal Neck: supple, no JVD, trachea midline Respiratory/Chest: lungs clear, normal breath sounds, no respiratory distress, no accessory muscle use Cardiovascular: regular rate, rhythm Abdomen / GI: normal bowel sounds, non tender, soft, + hernia (reducible LLQ ; healing abrasion to distal portion of hernia), + pertinent finding (abdomen is mildly erythematous that wax and wanes) Extremities: + pertinent finding (point tenderness to lateral aspect of ankle with significant bruising) Neurologic/Psychiatric: alert, oriented x 3 Hospital Course ADMISSION: Mr. 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 Most of the HPI obtained from as patient answers appropriately but is mildly lethargic and mostly resting with eyes closed. She states he has had small open wounds around his abdominal incision that has been draining clear fluid. She states fluid has slight yellow tinge when it weeks on his shirt. She does note that his abdominal girth is larger than normal and imaging supports moderate amounts of ascites. She states he does have occasional paracentesis for his ascites with the last tap in June prior to his last surgical intervention. Patient has subsequently developed a LLQ hernia that is reducible and produces no pain for him. He denies any fever/chills or abdominal pain. States the redness does not bother him. It is slightly warm to touch and clear fluid is minimally leaking from the top aspect of his surgical incision but incision is not open. No tenderness to palpation of this area. He has been taking suppressive Keflex 500 mg BID. Patient thinks he gets frequent redness in this area but states that prior to a couple days ago it was not red. It is minimally erythematous. Imaging supports findings suggesting a cellulitis. Given the leaking fluid and erythema/irritation a fistula is possible. also notes patient is more SOB and relates this to his abdominal distention but patient denies SOB. Patient is lethargic but can contribute to history and largely answers questions appropriately. However will intermittently laugh when it appears he is just resting. He has a history of ETOH abuse but states he does not drink anymore. When asked about illegal drugs he stated "just weed" and when the said that he doesn't he looked at her and ask what he just said, then closed his eyes. Imaging also shows R common femoral DVT. He denies H/O DVT but was on Lovenox after surgeries and had a Hgb drop to 7.2. He had colonoscopy and EGD that did not confirm source. He states he has not had hemoptysis, melena, or hematochezia. Reviewed records and did not see reported esophageal varices. HOSPITAL COURSE: Mr. Santiago was admitted for Abdominal Cellulitis with a Compression Fx of Back and R Common Femoral DVT Acute Metabolic Encephalopathy: RESOLVED - Had waxing and waning mentation but ammonia remained WNL; more lethargic in AM just after waking up but improves as the day goes on - When cellulitis improved he was converted back to his suppressive Keflex BID but mentation worsened and was resumed on IV Abx and mentation returned to baseline 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 with Fluid Filled Collection : Seroma vs Healing Hematoma vs Abscess - Continue Rocephin 1 g IV daily to complete 14 day course - Will complete on - U/S guided peripheral line placed - Continue back brace and monitor; PRN pain medication - Consult Spine - low suspicion this is abscess but recommending to have outpatient F/U with Dr. Birmingham ([facility]) - did discuss with case management and informed [employer] to try and move F/U earlier than January 20 - ID followed - recommending 2 weeks IV Abx and suspect more related to abdominal cellulitis and low suspicion for abscess as well L-Sided Abdominal Cellulitis vs Stasis and Abdominal Hernia: - Continue Rocephin 1 g IV daily to complete 14 day course - Will complete on - U/S guided peripheral line placed - Discussed with Gen Surg who recommended tertiary care for repair if warranted - continues to be reducible and without pain - would recommend if he stays asymptomatic to await after DVT treatment R Common Femoral DVT and Superficial Femoral Vein: - Will need Lovenox 1 mg/kg BID dosing on D/C due to insurance coverage - reporting BID dosing to be $100/month and states this is feasible x 3 months - Discussed with Heme/Onc and recommending only 3 month coverage - could consider F/U U/S after treatment - Discussed with Vascular Surgery - recommended again IVC Filter given risk/ benefits and does not meet criteria for placement at this time R Ankle Stress Fracture: - XR supports possible healing stress fracture. Walking boot applied and will be WBAT with boot on and have outpatient orthopedic follow-up and F/U XR - Patient did sustain a fall in-hospital (unwitnessed) but was found sitting on his buttocks on the floor which he reports this is when he "twisted his ankle" - states he was trying to get out of the bed to go to the bathroom. 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 with Portal HTN and Ascites and Thrombocytopenia: - Continue Lasix 40 mg daily and tolerating increased Spironolactone 100 mg daily - This was a change from his home dosing and can be further evaluated/ adjusted - Lactulose 30 g BID and Xifaxan 550 mg BID was added - Had therapeutic and diagnosis paracentesis - no evidence of SBP - GI following and agree with above T2DM: A1c 8.4 (Sep 2017) - Lantus 25 units SC BID and SSI - He was very adamant about not using a diabetic diet in-hospital - reports eats what he wants at home and adjusts insulin to this - recommend increased dose of Lantus for appropriate coverage Disposition: - [facility] for acute rehab - Recommend close F/U with Spine Ortho in [facility] - Dr. Vinnie ALBA Physician Supervision Note: I interviewed and examined the patient. Discussed with Enma WAGONER and agree with findings and plan as documented in the note. Any exceptions or clarifications are listed here: None This patient presented with encephalopathy concern was for a fluid collection in his lumbar spine and his previous surgical site which may have occurred after trauma he did improve after being treated with antibiotics for this. He also developed a painful right ankle during this hospital stay from the possibility of stress fracture of the distal fibula. He had issues with pain control throughout his hospital stay requiring parenteral pain control and also escalation of his normal oral medications. His up at encephalopathy from cirrhosis remains stable and he was eventually transferred to rehabilitation facility for continued improvement of his strength Vitals are stable at some of discharge his heart was distant but regular his lungs were clear his abdomen is protuberant with mild ascites he did have thoracentesis twice once for diagnostic to rule out SBP 1 therapeutic his lower extremity is ecchymotic from a injury with weight which occurred when he fell and also injured his back he is tender to the lateral malleolus of the right foot. Patient be discharged to [facility] will continue antibiotics with follow-up with Dr. Nielsen and also considering follow-up at [facility] with a spine surgeon Documented By: Americo Edwards Total Time Spent: Greater than 30 minutes This includes examination of the patient, discharge planning, medication reconciliation, and communication with other providers. Discharge Instructions Please refer to the electronic Patient Visit Report (Discharge Instructions) for additional information. Additional Copies To Hu Ackerman M.D.; [facility]
--- NOTE | 2017-12-07 22:17 | GASTROENTEROLOGY PROGRESS NOTE ---
DATE: 12/06/2017 SUBJECTIVE: Chart reviewed, patient examined, patient accompanied by his . The patient is awake, alert and oriented x3, tolerating foods well and actually has plans for discharge this evening to rehab. The patient feels well, has no abdominal pain and is currently on antibiotics for fluid collection in the back. His abdominal wall cellulitis seems to be in good control. The stool patterns are tolerably and generally has 3 or 4 pasty bowel movements that are only occasionally loose on the current regimen for his encephalopathy. The patient's medications include insulin, Desenex powder, Lovenox 1.5 mg/kg daily, vancomycin with discontinued Rocephin, lactulose 30 grams twice daily, pantoprazole, rifaximin 550 mg twice daily, Aldactone, Inderal. OBJECTIVE: VITAL SIGNS: Today blood pressure 128/71, respirations 18, pulse 89, temperature 37.97% on room air. GENERAL: The patient is awake, alert and oriented x3. HEENT: Anicteric sclerae. HEART: Normal S1, S2. LUNGS: Overall clear to auscultation. ABDOMEN: Soft, mildly distended without rebound or guarding. There is no evidence of tense ascites or shifting dullness. There are no abdominal bruits or masses. EXTREMITIES: Without clubbing, cyanosis. There is trace edema bilaterally. RECTAL: Deferred. ASSESSMENT AND PLAN: The patient with a history of cirrhosis due to sarcoid along with prior alcohol use and perhaps fatty liver. Overall, he has improved considerably, he is not encephalopathic and no reports of GI bleeding. Would continue the current regimen as an outpatient for this and will plan to see the patient back in several weeks in GI clinic to assess his progress if he has completed his rehabilitation. I did speak with and the patient regarding the importance of avoiding excess salt intake (2 gram sodium diet) and avoiding excess water intake (1800 mL approximately daily) to avoid reaccumulation of ascites that could impact his respiratory status. All questions answered.
== END 2017-12-06 18:30 | DRG 441 ==
LOC: C.EDB 13:04 → C.MED 17:40 → ENRESERV 18:31 → C.MS2W 11-27 18:37
PROVIDERS: ADMIT Internal Medicine; ATTEND Internal Medicine
DX: K72.00 Acute and subacute hepatic failure without coma (principal); G93.41 Metabolic encephalopathy; I82.411 Acute embolism and thrombosis of right femoral vein; L03.311 Cellulitis of abdominal wall; N17.9 Acute kidney failure, unspecified; I50.32 Chronic diastolic (congestive) heart failure; K76.6 Portal hypertension; D86.9 Sarcoidosis, unspecified; K70.31 Alcoholic cirrhosis of liver with ascites; J45.909 Unspecified asthma, uncomplicated; K21.9 Gastro-esophageal reflux disease without esophagitis; E78.5 Hyperlipidemia, unspecified; E11.43 Type 2 diabetes mellitus with diabetic autonomic (poly)neuropathy; Z87.442 Personal history of urinary calculi; G47.30 Sleep apnea, unspecified; Z79.4 Long term (current) use of insulin; Z88.0 Allergy status to penicillin

== ENCOUNTER 2017-12-17 00:36 | Inpatient (IN) | payer BC, OTHER ==
[~2017-12-17] VITALS: Ht 165.1 cm; Wt 85.6 kg
[2017-12-17] VITALS (34 sets, daily range): BP systolic 79–115; BP diastolic 47–70; PULSE 90–106; TEMP 36.7–37; O2SAT 95–100; Ht 165.1 cm; Wt 85.6 kg
[~2017-12-17 00:36] MED LIST changes: -BISA10SU7 PR; -CNCI50 IV; -DOCU100C31 PO; +ENOX40IN SC; -ENOX40IN SQ; -INSDGI SC; +INSDGIPEN SC; +LDDP5 TD; +MCTP EXT; -PENT400T2 PO; -QUET1TAB30 PO; -RIFA550T2 PO; -SIME80CH40 PO; -SPIR50TA2 PO; +SPRN100 PO; +XFX550 PO
[2017-12-17] MEDS ORDERED: SODIUM CHLORIDE 0.9% 1000ML 1,000 ML IV STA ×2 (00:54)
[2017-12-17 01:08] LABS: BASO % 1.1 %; BASO ABS # 0.07 K/uL (0-0.2); EOS % 6.3 %; EOS ABS # 0.41 K/uL (0-0.5); IG# 0.02 K/uL (0.00-0.02); LYMPH % 7.6 %; LYMPH ABS # 0.49 K/uL (1.2-3.4); MEAN CELL VOLUME 81.9 fL (80-100); MEAN CORPUSCULAR HEMOGLOBIN 26.3 pg (25-34); MEAN CORPUSCULAR HGB CONC 32.1 g/dl (32-36); MEAN PLATELET VOLUME 10.2 fL (7.4-10.4); MONO % 12.5 %; MONO ABS # 0.81 K/uL (0.11-0.59); NEUT % 72.2 %; NEUT ABS # 4.68 K/uL (1.4-6.5); PLATELET COUNT 137 K/uL (130-400); RED CELL DISTRIBUTION WIDTH CV 17.1 % (11.5-14.5); RED CELL DISTRIBUTION WIDTH SD 51.9 fL (36.4-46.3); WHITE BLOOD COUNT 6.48 K/uL (4.8-10.8)
[2017-12-17 01:20] LABS: INR 1.1 (0.9-1.1); PTT PATIENT 38.3 SECONDS (21.0-31.0)
--- NOTE | 2017-12-17 01:24 | EMERGENCY ROOM VISIT NOTE ---
History Report prepared by Teresa: Jenny Reynaga Under the Supervision of: Dr. Harriet Harman D.O. First contact with patient: 00:48 Chief Complaint: ILLNESS Stated Complaint: ILLNESS/FEVER History of Present Illness The patient is a 62 year old male who presents to the Emergency Room with complaints of an illness and fever beginning around 2100. Per nursing staff, he came from [facility], has been more lethargic, started vomiting around 2100, was febrile, had hypotension, hypoxia, nausea. His reports that he was at the hospital from November 23- for a cellulitis infection of the abdominal wall and a fluid collection in his spine which was thought possibly to be an abscess. He was on long-term antibiotics. The patient denies any chest pain, back pain, neck pain but has positive abdominal pain. Source of History: patient, spouse/significant other (), nursing staff History Limited By: other (lethargy) Onset: 2100 Position: abdomen, other Associated Symptoms: + fevers, + nausea, + vomiting, + abdominal pain, No neck pain, No chest pain, No back pain Note: Positive lethargy, hypoxia, and is hypotensive Review of Systems The patient had a bit of an altered mental status so this review of systems was unreliable. However, according to the patient's , he had been doing well at [facility] until this evening when he became more lethargic. In fact, his doctor told him that he would be discharged this week. The patient denies any increased back pain. He had been vomiting and had a slight cough. 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 sepsis (10) gi bleed, ?sepsis (11) Gram negative septicemia (12) HEPATIC ENCEPHALOPATHY. SARCOIDOSIS. DM2,POST LUMBAR DISC SURGERY (13) HERNIATED L4-L5 DISC (14) Hyperlipidemia (15) Hypertension (16) Infection of lumbar spine (17) Kidney stone (18) Lumbar stenosis with neurogenic claudication (19) Meningitis (20) MSC,SEVERE HYPO K, LUMBAR SPINE ABCESS,MALNUTRITION, CIRRHOSIS (21) MSC. FEVER.,?MENINGITIS,DM2,SARCOIDOSIS,SLEEP APNEA (22) Obesity (23) Post op infection (24) Sarcoidosis (25) Septal defect (26) SEVERE CELLULITIS L LEG,SEPSIS SYNDROME (27) Sleep apnea (28) Thrombocytopenia Family History Patient reports no known family medical history. Social History Smoking Status: Never Smoker Alcohol Use: none Drug Use: none Marital Status: Housing Status: lives with family Occupation Status: retired Current/Historical Medications Scheduled Atorvastatin (Lipitor), 10 MG PO q dinner Cyclosporine (Ophth) (Restasis), 1 DROP OPB Q12 Docusate Sodium (Docusate Sodium), 1 CAP PO BID Enoxaparin (Lovenox), 80 MG SQ Q12H Fluoxetine (Prozac), 40 MG PO QAM Furosemide (Lasix), 40 MG PO DAILY Insulin Aspart (Novolog Penfill), SC ACHS Insulin Glargine (Lantus Solostar), 25 UNITS SC BID Lactulose (Chronulac), 30 ML PO BID Levalbuterol (Levalbuterol HCl), 1.25 MG INH TID Miconazole Nitrate (Desenex Shake Powder), 1 APPLN EXT BID Pantoprazole (Protonix), 40 MG PO QAM Potassium Ext Rel (Klor-Con), 20 MEQ PO BIDM Prednisone (Prednisone), 20 MG PO QAM Propranolol (Inderal), 10 MG PO DAILY Rifaximin (Xifaxan), 550 MG PO Q12 Spironolactone (Aldactone), 100 MG PO 3XWK Scheduled PRN Acetaminophen (Tylenol), 500 MG PO Q4H PRN for Pain Bisacodyl (Dulcolax), 1 SUPP TN DAILY PRN for Constipation Ipratropium-Albuterol (Duoneb), 1 TREATMENT INH Q4H PRN for Wheezing Magnesium Hydroxide (Milk Of Magnesia), 30 ML PO DAILY PRN for Constipation Ondansetron Hcl (Zofran), 4 MG PO Q4 PRN for Nausea Oxycodone/Acetaminophen 10MG/325MG (Oxycodone/Acetaminophen 10MG/325MG), 1 TAB PO Q4 PRN for pain 7-10 Oxycodone/Acetaminophen 5MG/325MG (Oxycodone/Acetaminophen 5MG/325MG), 1 TAB PO Q4 PRN for pain 4-6 Polyethylene Glycol 3350 (Miralax), 17 GM PO DAILYBL PRN for Constipation Senna (Senokot), 1 TAB PO q lunch PRN for Constipation Sodium Phosphate/Biphosphate (Fleet Enema), 1 EA TN DAILY PRN for Constipation Allergies Coded Allergies: Celecoxib (Verified Allergy, Intermediate, HIVES, 12/17/17) Penicillins (Verified Allergy, Intermediate, HIVES, 12/17/17) Physical Exam Vital Signs Date Time Temp Pulse Resp B/P (MAP) Pulse Ox O2 Delivery O2 Flow Rate FiO2 12/17/17 04:00 94 15 81/47 (58) 99 Nasal Cannula 3.0 12/17/17 03:37 93 92/51 97 Nasal Cannula 2.0 12/17/17 02:45 74/46 12/17/17 02:41 95 16 100 12/17/17 02:37 87/54 12/17/17 02:35 37.5 12/17/17 02:30 73/40 12/17/17 02:26 93 15 100 12/17/17 02:21 93 15 99 Nasal Cannula 2.0 12/17/17 02:15 75/50 12/17/17 02:07 71/46 12/17/17 02:06 93 14 74/42 98 Nasal Cannula 2.0 12/17/17 02:01 77/44 12/17/17 02:00 87/48 12/17/17 01:51 101 14 100 Nasal Cannula 2.0 12/17/17 01:45 105/62 12/17/17 01:36 99 16 98 Nasal Cannula 2.0 12/17/17 01:33 75/41 12/17/17 01:30 86/46 12/17/17 01:24 99/48 100 Nasal Cannula 2.0 12/17/17 01:24 100 Nasal Cannula 2.0 12/17/17 01:21 100 16 88 Room Air 12/17/17 01:06 99 16 91 Room Air 12/17/17 01:00 75/44 12/17/17 01:00 92 Room Air 12/17/17 00:51 101 15 93 Room Air 12/17/17 00:50 82/41 12/17/17 00:44 104 12/17/17 00:40 38.7 105 20 90/46 95 Room Air 12/17/17 00:39 90/46 Physical Exam HEENT: Head - Lethargic, normocephalic and atraumatic Pupils are equal, round , and reactive to light. Eyes are proptotic. Extraocular eye muscles are intact, and sclera are anicteric. Nose - dry nasal mucosa without discharge. Mouth -extremely dry buccal mucosa. Oropharynx is nonerythematous and there is no tonsillar exudate or edema noted. Neck: Supple; no JVD, nuchal rigidity, cervical lymphadenopathy. Heart: Regular rate and tachycardic. There is a normal S1 and S2 with no murmurs, clicks, or gallops appreciated. Lungs: Clear to auscultation bilaterally with no wheezes, rales, or rhonchi. Abdomen: Soft, nondistended, with good bowel sounds. There are no palpable pulsatile masses or hepatosplenomegaly. There is no guarding, rigidity, or rebound noted. Diffuse abdominal pain with palpation. Extremities: No evidence of cyanosis, clubbing, or edema. There are easily palpable peripheral pulses. Skin: hot and dry with good turgor. Multiple areas of excoriation. Medical Decision & Procedures ER Provider Diagnostic Interpretation: Radiology results as stated below per my review and the radiologist's interpretation: CHEST X RAY Right middle lobe consolidation, concerning for pneumonia Laboratory Results Test 12/17/17 00:00 12/17/17 00:20 12/17/17 00:52 12/17/17 00:54 Urine Random Sodium < 5 mEq/L Urine Random Potassium 41.9 mEq/L Urine Random Chloride < 10 mEq/L Immature Granulocyte % (Auto) 0.3 % White Blood Count 6.48 K/uL (4.8-10.8) Red Blood Count 3.42 M/uL (4.7-6.1) Hemoglobin 9.0 g/dL (14.0-18.0) Hematocrit 28.0 % (42-52) Mean Corpuscular Volume 81.9 fL (80-100) Mean Corpuscular Hemoglobin 26.3 pg (25-34) Mean Corpuscular Hemoglobin Concent 32.1 g/dl (32-36) Platelet Count 137 K/uL (130-400) Mean Platelet Volume 10.2 fL (7.4-10.4) Neutrophils (%) (Auto) 72.2 % Lymphocytes (%) (Auto) 7.6 % Monocytes (%) (Auto) 12.5 % Eosinophils (%) (Auto) 6.3 % Basophils (%) (Auto) 1.1 % Neutrophils # (Auto) 4.68 K/uL (1.4-6.5) Lymphocytes # (Auto) 0.49 K/uL (1.2-3.4) Monocytes # (Auto) 0.81 K/uL (0.11-0.59) Eosinophils # (Auto) 0.41 K/uL (0-0.5) Basophils # (Auto) 0.07 K/uL (0-0.2) Immature Granulocyte # (Auto) 0.02 K/uL (0.00-0.02) Total Bilirubin 1.5 mg/dl (0.2-1) Aspartate Amino Transf (AST/SGOT) 42 U/L (15-37) Alanine Aminotransferase (ALT/SGPT) 29 U/L (12-78) Alkaline Phosphatase 315 U/L (45-117) Total Creatine Kinase 27 U/L (39-308) Creatine Kinase MB 0.7 ng/ml (0.5-3.6) Creatine Kinase MB Ratio 2.6 (0-3.0) Troponin I < 0.015 ng/ml (0-0.045) Total Protein 6.0 gm/dl (6.4-8.2) Albumin 2.5 gm/dl (3.4-5.0) Globulin 3.5 gm/dl (2.5-4.0) Albumin/Globulin Ratio 0.7 (0.9-2) Influenza Type A Antigen Neg for Influ A (NEG) Influenza Type B Antigen Neg for Influ B (NEG) Bedside Lactic Acid Venous 2.75 mmol/L (0.90-1.70) Test 12/17/17 02:15 12/17/17 03:42 Urine Color DK YELLOW Urine Appearance CLOUDY (CLEAR) Urine pH 5.0 (4.5-7.5) Urine Specific [place] 1.017 (1.000-1.030) Urine Protein NEG (NEG) Urine Glucose (UA) NEG (NEG) Urine Ketones NEG (NEG) Urine Occult Blood 1+ (NEG) Urine Nitrite NEG (NEG) Urine Bilirubin NEG (NEG) Urine Urobilinogen NEG (NEG) Urine Leukocyte Esterase TRACE (NEG) Urine WBC (Auto) 1-5 /hpf (0-5) Urine RBC (Auto) 0-4 /hpf (0-4) Urine Hyaline Casts (Auto) 1-5 /lpf (0-5) Urine Epithelial Cells (Auto) 5-10 /lpf (0-5) Urine Bacteria (Auto) NEG (NEG) Urine Crystals CALCIUM OXALATE (NONE Urine Yeast (Auto) BUDDING (NONE PRSENT) Bedside Blood Gas pH (LAB) 7.39 (7.35-7.45) Bedside Blood Gas pCO2 (LAB) 34 mmHg (35-46) Bedside Blood Gas pO2 (LAB) 85 mmHg (80-95) Bedside Blood Gas HCO3 (LAB) 21 meq/L (19-24) Bedside Blood Gas Total CO2 22 mEq/l (24-31) Bedside Blood Gas Base Excess (LAB) -4.0 meq/L (-9-1.8) Bedside Blood Gas O2 Saturation 97.0 % (90-95) Laboratory results per my review. Medications Administered Medications (Trade) Dose Ordered Sig/Nathalia Route Start Time Stop Time Status Last Admin Dose Admin Sodium Chloride 1,000 ml @ 250 mls/hr Q4H STAT IV 12/17/17 00:54 12/17/17 04:53 DC 12/17/17 01:54 250 MLS/HR Sodium Chloride 1,000 ml @ 999 mls/hr Q1H1M STAT IV 12/17/17 00:54 12/17/17 01:54 DC 12/17/17 01:13 999 MLS/HR Aztreonam 2000 mg/ Dextrose 110 ml @ 100 mls/hr NOW STAT IV 12/17/17 01:42 12/17/17 02:47 DC 12/17/17 02:23 100 MLS/HR Acetaminophen (Tylenol Tab) 1,000 mg NOW STAT PO 12/17/17 01:43 12/17/17 01:44 DC 12/17/17 01:54 1,000 MG Daptomycin 500 mg/ Syringe 10 ml @ 5 mls/min NOW STAT IV 12/17/17 02:08 12/17/17 02:09 DC 12/17/17 02:23 5 MLS/MIN Miscellaneous Information (Nursing Verbal Med Order) 1 ea ONE ONCE N/A 12/17/17 02:30 12/17/17 02:31 DC 12/17/17 02:31 1 EA Albumin Human (Albumin 25%) 25 gm Q6H IV 12/17/17 04:00 12/17/17 22:01 DC 12/17/17 21:59 25 GM Hydrocortisone Sodium Succinate (Solu-Cortef IV) 100 mg NOW STAT IV 12/17/17 04:04 12/17/17 04:05 DC 12/17/17 04:25 100 MG Procedure 0054: Sodium Chloride IV 0143: Aztreonam 2000 mg/Dextrose 0143: Tylenol Tab Oral 0208: Daptomycin 500 mg/Syringe IV ECG Indication: abdominal pain Rate (beats per minute): 104 Rhythm: sinus tachycardia Findings: no acute ischemic change, no ectopy Change: Patient's electrocardiogram was interpreted by me. ED Course 0103: Past medical records reviewed. The patient was evaluated in room C3. A complete history and physical exam was performed. A septic protocol was performed. 0130: I revaluated the patient at this time. His blood pressure was 99 systolic after 1500 of saline. 0150: I reevaluated the patient at this time. He had a systolic BP 105 and is slightly more alert. His says that when they went to [place] yesterday, the patient has a collection of fluid in his back and they were wondering if it was an abscess. The [facility] surgeon does not think so and thinks it is just a normal post-surgical fluid collection. 0230: I revaluated the patient at this time. His blood pressure was 75/50 and he was receiving a third liter of crystalloid. I spoke with his about his resuscitation status and he is a full code and would be agreeable to pressers. The blood pressure came up temporarily with the third liter of fluid. 0235: I revaluated the patient at this time. He is being moved to [facility] and his blood pressure systolic was 85. Nursing is paging Dr. Cerda for his diagnosis of septic shock. 0237: Upon reevaluation, I discussed findings and results with him. He verbalized agreement of the treatment plan. [facility] The patient will be evaluated by him for further management and care. Medical Decision The patient is a 62 year old male who presents to the ED with illness and fever. Differential diagnosis includes sepsis, SBP, epidural abscess, UTI, pneumonia, influenza Lab results show lactic acid 2.75, white count 6.4, hemoglobin is 9, BUN 20, creatinine 1.9, glucose 155, total bilirubin of 1.5, alkphos of 315. Negative cardiac enzymes. Flue testing negative. Urinalysis had 1+ blood and trace leukocytes esterase. This is a 62-year-old male patient with a complicated past medical history presents to the emergency department from [facility] with a fever, lethargy, hypotension and hypoxia. The patient was placed on supplemental oxygen. He had 2 IV locks initiated and was receiving IV crystalloid therapy. Potential source for his fever and sepsis was thought to be his lungs since he was hypoxic but chest x-ray was unremarkable. I considered the fluid collection in the spine as well as the abdomen. [facility] will [facility] for further management. Impression Primary Impression: Septic shock Critical Care I have personally spent greater than 90 minutes of critical care time in the direct management of this patient. This includes bedside care, interpretation of diagnostic studies, and testing, discussion with consultants, patient, and family members, and other required patient management activities. This 90 minutes is in excess of all separately billable procedures. Scribe Attestation The scribe's documentation has been prepared under my direction and personally reviewed by me in its entirety. I confirm that the note above accurately reflects all work, treatment, procedures, and medical decision making performed by me. Departure Information Dispostion Still a Patient Referrals Hu Ackerman M.D. (PCP) Forms HOME CARE DOCUMENTATION FORM, IMPORTANT VISIT INFORMATION, WORK / SCHOOL INSTRUCTIONS Patient Instructions My [facility]
[2017-12-17 01:26] LABS: ALBUMIN 2.5 gm/dl (3.4-5.0); ALT/SGPT 29 U/L (12-78); AST/SGOT 42 U/L (15-37); BLOOD UREA NITROGEN 20 mg/dl (7-18); CALCIUM 8.2 mg/dl (8.5-10.1); CARBON DIOXIDE 26 mmol/L (21-32); CREATININE 1.99 mg/dl (0.60-1.40); GLUCOSE 155 mg/dl (70-99); POTASSIUM 4.6 mmol/L (3.5-5.1); SODIUM 132 mmol/L (136-145)
[2017-12-17] MEDS ORDERED: BISA10SU38 PR (01:28)
[2017-12-17] MEDS ORDERED: MOML PO (01:28)
[2017-12-17] MEDS ORDERED: POLY335019 PO (01:28)
[2017-12-17] MEDS ORDERED: SODIENE PR (01:29)
[2017-12-17] MEDS ORDERED: ENOX80IN SQ (01:29)
[2017-12-17 01:31] LABS: ALKALINE PHOSPHATASE 315 U/L (45-117); CKMB 0.7 ng/ml (0.5-3.6)
[2017-12-17] MEDS ORDERED: ATOR10TA82 PO (01:32)
[2017-12-17] MEDS ORDERED: SENN-61 PO (01:35)
[2017-12-17] MEDS ORDERED: RIFA550T2 PO (01:35)
[2017-12-17] MEDS ORDERED: SPIR100T PO (01:36)
[2017-12-17] MEDS ORDERED: DOCU100C31 PO (01:36)
[2017-12-17] MEDS ORDERED: DAPTOmycin IV 500 MG in SODIUM CHLORIDE 0.9% 50ML 50 ML IV STA (01:41)
[2017-12-17] MEDS ORDERED: OXYC-88 PO (01:41)
[2017-12-17] MEDS ORDERED: OXYC-643 PO (01:41)
[2017-12-17] MEDS ORDERED: AZTREONAM IV 2,000 MG in DEXTROSE 5% 100ML 100 ML IV STA (01:42)
[2017-12-17] MEDS ORDERED: ACETAMINOPHEN 500 MG TAB PO STA (01:43)
[2017-12-17] MEDS ORDERED: IPRASOL4 INH (01:43)
[2017-12-17 01:45] LABS: INFLUENZA B ANTIGEN Neg for Influ B (NEG)
[2017-12-17] MEDS ORDERED: DAPTOmycin IV 500 MG in SYRINGE 0 ML IV STA (02:08)
[2017-12-17] MEDS ORDERED: NURSING VERBAL MED ORDER ONE ×2 (02:30→14:00)
[2017-12-17] MEDS ORDERED: ALBUMIN HUMAN 25% 12.5 GM/50 ML VIAL IV SCH (03:45)
[2017-12-17] MEDS ORDERED: VANCOMYCIN CONSULT ACTIVE PRN (03:45)
[2017-12-17] MEDS ORDERED: NOREPINEPHRINE BIT INJ 8 MG in DEXTROSE 5% 500ML 500 ML IV PRN (04:02)
[2017-12-17] MEDS ORDERED: HYDROCORTISONE SOD SUCCINATE 100 MG/2 ML VIAL IV STA (04:04)
[2017-12-17] MEDS ORDERED: ICU PROTOCOL FOR HYPERGLYCEMIA PRN (04:15)
[2017-12-17] MEDS: ALBUMIN HUMAN 25% 12.5 GM/50 ML VIAL IV SCH ×4 (04:19→21:59)
--- NOTE | 2017-12-17 04:28 | Critical Care Consultation ---
Critical Care Consultation Date of Consultation: Dec 17, 2017. Attending Physician: Reason for Consultation: 62-year-old male with extensive past medical history including cirrhosis, sarcoidosis, diabetes, hypertension, and multiple lumbar surgeries presented from an outpatient rehabilitation facility with sepsis from multiple possible sources requiring aggressive fluid resuscitation, close hemodynamic monitoring, and likely vasoactive medications for. History of Present Illness Patient is a 62-year-old male with a significant past medical history for cirrhosis, sarcoidosis, insulin dependent diabetes, and multiple prior back surgeries who presented to the emergency department this morning for high fevers , low blood pressure, tachycardia, and lethargy. Patient was recently admitted at this facility for a cellulitis of the LEFT lower abdomen. He was discharged to [facility] for rehabilitation as he has had multiple prior lumbar surgeries resulting in weakness in the lower extremities. He actually had an appointment yesterday with his surgeon at [facility] as there was concern for possible fluid collection in the lumbar spine. At that point, it was felt to be a "fluid pocket." He had been doing well and had his dinner at approximate 5 PM. His reports that he was somewhat tired today, but she equated it to the activity of traveling to and from. Earlier this morning, though I received a call as she reports the patient's status had clinically changed. The patient does admit to one episode of emesis this morning. He has had a slight cough. He was found to have a fever as well as hypotension and tachycardia. He received 3 L normal saline in the emergency department as well as a strain and vancomycin. Chest x-ray was obtained and demonstrated a possible RIGHT lower lobe infiltrate. On my evaluation in the emergency department, the patient is lethargic, however he does awaken and answer questions appropriately. He complains of chronic low back pain, but offers no new complaints otherwise. Patient denies any current headaches, dizziness, recent upper respiratory infections, chest pain, palpitations, pleuritic pain, hematemesis, hematochezia , melena, hematuria, or dysuria. Past Medical/Surgical History Medical Problems: (1) Abscess in epidural space of lumbar spine (2) ACUTE RESP.FAIL.,SARCOIDOSIS (3) Altered mental status (4) Anemia (5) Asthma (6) Diabetic autonomic neuropathy (7) Fungemia (8) GERD (gastroesophageal reflux disease) (9) gi bleed, ? sepsis (10) gi bleed, ?sepsis (11) Gram negative septicemia (12) HEPATIC ENCEPHALOPATHY. SARCOIDOSIS. DM2,POST LUMBAR DISC SURGERY (13) HERNIATED L4-L5 DISC (14) Hyperlipidemia (15) Hypertension (16) Infection of lumbar spine (17) Kidney stone (18) Lumbar stenosis with neurogenic claudication (19) Meningitis (20) MSC,SEVERE HYPO K, LUMBAR SPINE ABCESS,MALNUTRITION, CIRRHOSIS (21) MSC. FEVER.,?MENINGITIS,DM2,SARCOIDOSIS,SLEEP APNEA (22) Obesity (23) Post op infection (24) Sarcoidosis (25) Septal defect (26) SEVERE CELLULITIS L LEG,SEPSIS SYNDROME (27) Sleep apnea (28) Thrombocytopenia Family History Patient reports no known family medical history. Noncontributory Social History Smoking Status: Never Smoker Smokeless Tobacco Use: No Alcohol Use: previous heavy use Drug Use: none Marital Status: Housing Status: lives with family Occupation Status: retired Allergies Coded Allergies: Celecoxib (Verified Allergy, Intermediate, HIVES, 12/17/17) Penicillins (Verified Allergy, Intermediate, HIVES, 12/17/17) Home Medications Scheduled Atorvastatin (Lipitor), 10 MG PO q dinner Cyclosporine (Ophth) (Restasis), 1 DROP OPB Q12 Docusate Sodium (Docusate Sodium), 1 CAP PO BID Enoxaparin (Lovenox), 80 MG SQ Q12H Fluoxetine (Prozac), 40 MG PO QAM Furosemide (Lasix), 40 MG PO DAILY Insulin Aspart (Novolog Penfill), SC ACHS Insulin Glargine (Lantus Solostar), 25 UNITS SC BID Lactulose (Chronulac), 30 ML PO BID Levalbuterol (Levalbuterol HCl), 1.25 MG INH TID Miconazole Nitrate (Desenex Shake Powder), 1 APPLN EXT BID Pantoprazole (Protonix), 40 MG PO QAM Potassium Ext Rel (Klor-Con), 20 MEQ PO BIDM Prednisone (Prednisone), 20 MG PO QAM Propranolol (Inderal), 10 MG PO DAILY Rifaximin (Xifaxan), 550 MG PO Q12 Spironolactone (Aldactone), 100 MG PO 3XWK Scheduled PRN Acetaminophen (Tylenol), 500 MG PO Q4H PRN for Pain Bisacodyl (Dulcolax), 1 SUPP UT DAILY PRN for Constipation Ipratropium-Albuterol (Duoneb), 1 TREATMENT INH Q4H PRN for Wheezing Magnesium Hydroxide (Milk Of Magnesia), 30 ML PO DAILY PRN for Constipation Ondansetron Hcl (Zofran), 4 MG PO Q4 PRN for Nausea Oxycodone/Acetaminophen 10MG/325MG (Oxycodone/Acetaminophen 10MG/325MG), 1 TAB PO Q4 PRN for pain 7-10 Oxycodone/Acetaminophen 5MG/325MG (Oxycodone/Acetaminophen 5MG/325MG), 1 TAB PO Q4 PRN for pain 4-6 Polyethylene Glycol 3350 (Miralax), 17 GM PO DAILYBL PRN for Constipation Senna (Senokot), 1 TAB PO q lunch PRN for Constipation Sodium Phosphate/Biphosphate (Fleet Enema), 1 EA UT DAILY PRN for Constipation Current Inpatient Medications Current Inpatient Medications Medications (Trade) Dose Ordered Sig/Nathalia Route Start Time Stop Time Status Last Admin Dose Admin Sodium Chloride 1,000 ml @ 250 mls/hr Q4H STAT IV 12/17/17 00:54 12/17/17 04:53 12/17/17 01:54 250 MLS/HR Albumin Human (Albumin 25%) 25 gm Q6H IV 12/17/17 04:00 12/17/17 22:01 12/17/17 04:19 25 GM Hydrocortisone Sodium Succinate 100 mg/Syringe 2 ml @ 4 mls/min Q8H IV 12/17/17 12:00 01/16/18 11:59 UNV Vancomycin HCl 1000 mg/Sodium Chloride 270 ml @ 125 mls/hr Q12 IV 12/17/17 09:00 12/27/17 08:59 UNV Miscellaneous Information (Consult) 1 ea UD PRN N/A 12/17/17 03:45 01/16/18 03:44 Aztreonam 2000 mg/ Dextrose 110 ml @ 100 mls/hr Q8H IV 12/17/17 03:45 12/27/17 03:44 UNV Sodium Chloride 1,000 ml @ 125 mls/hr Q8H IV 12/17/17 04:02 01/16/18 04:01 UNV Norepinephrine Bitartrate 8 mg/ Dextrose 508 ml @ 0 mls/hr Q0M PRN IV 12/17/17 04:02 01/16/18 04:01 Pantoprazole Sodium 40 mg/ Syringe 10 ml @ 5 mls/min DAILY IV 12/17/17 09:00 01/16/18 08:59 UNV Levalbuterol (Xopenex 1.25MG/ 0.5ML Neb) 1.25 mg Q4H PRN INH 12/17/17 04:15 01/16/18 04:14 UNV Ipratropium Lynn (Atrovent 0.02% 0.5MG/2.5ML Neb) 0.5 mg Q4H PRN INH 12/17/17 04:15 01/16/18 04:14 UNV Miscellaneous Information (Icu Protocol For Hyperglycemia) 1 ea PRN PRN N/A 12/17/17 04:15 12/19/17 04:14 UNV Review of Systems A complete 10-point Review of Systems was discussed with the patient, with pertinent positives and negatives listed in the History of Present Illness. All remaining Review of Systems questions can be considered negative unless otherwise specified. Physical Exam Date Time Temp Pulse Resp B/P (MAP) Pulse Ox O2 Delivery O2 Flow Rate FiO2 12/17/17 03:37 93 92/51 97 Nasal Cannula 2.0 12/17/17 02:45 74/46 12/17/17 02:41 95 16 100 12/17/17 02:37 87/54 12/17/17 02:35 37.5 12/17/17 02:30 73/40 12/17/17 02:26 93 15 100 12/17/17 02:21 93 15 99 Nasal Cannula 2.0 12/17/17 02:15 75/50 12/17/17 02:07 71/46 12/17/17 02:06 93 14 74/42 98 Nasal Cannula 2.0 12/17/17 02:01 77/44 12/17/17 02:00 87/48 12/17/17 01:51 101 14 100 Nasal Cannula 2.0 12/17/17 01:45 105/62 12/17/17 01:36 99 16 98 Nasal Cannula 2.0 12/17/17 01:33 75/41 12/17/17 01:30 86/46 12/17/17 01:24 99/48 100 Nasal Cannula 2.0 12/17/17 01:24 100 Nasal Cannula 2.0 12/17/17 01:21 100 16 88 Room Air 12/17/17 01:06 99 16 91 Room Air 12/17/17 01:00 75/44 12/17/17 01:00 92 Room Air 12/17/17 00:51 101 15 93 Room Air 12/17/17 00:50 82/41 12/17/17 00:44 104 12/17/17 00:40 38.7 105 20 90/46 95 Room Air 12/17/17 00:39 90/46 VITAL SIGNS - Vital signs and nursing notes were reviewed. GENERAL - 62-year-old male appearing male appearing older than his stated age who is in no acute distress. Drowsy but awakes to conversation. Answers questions appropriately. SKIN - Without rashes. HEAD - NC/AT. EYES - PERRL with EOMI bilaterally. Sclera anicteric. Palpebral conjunctiva pink and moist with no injection noted. Bulging eyes. EARS - No deformities of external structures noted on gross examination bilaterally. NOSE - Midline and without cyanosis. No epistaxis or purulent drainage noted. Septum midline without deviation or septal hematoma noted. MOUTH/OROPHARYNX - Without perioral cyanosis. Buccal mucosa pink and dry and without leukoplakia. Tongue midline with equal elevation of palate bilaterally. NECK - Neck with FROM. Supple to palpation. No lymphadenopathy noted. No nuchal rigidity. LUNGS - Chest wall symmetric without accessory muscle use, intercostals retractions, or central cyanosis. Normal vesicular breath sounds CTA B/L. No wheezes, rales, or rhonchi appreciated. CARDIAC - RRR with S1/S2. No murmur, rubs, or gallops appreciated. ABDOMEN - Abdominal contour obese without pulsations or visible masses. BS normoactive all four quadrants. No tenderness, palpable masses, hepatosplenomegaly, or ascites noted. Large LLQ palpable hernia. EXTREMITIES - No clubbing or peripheral cyanosis. No pretibial edema present. +3 /5 radial and dorsalis pedis pulses palpated throughout. +5/5 strength noted in UE/LE bilaterally. NEUROLOGIC - Cranial nerves II through XII grossly intact. Sensory intact to light touch throughout. PSYCH - A&Ox3 and cooperates fully with examiner. Drowsy initially. Pt is very pleasant and interacts well with examiner. Laboratory Results Last 24 Hours Test 12/17/17 00:20 12/17/17 00:52 12/17/17 00:54 12/17/17 02:15 White Blood Count 6.48 K/uL Red Blood Count 3.42 M/uL Hemoglobin 9.0 g/dL Hematocrit 28.0 % Mean Corpuscular Volume 81.9 fL Mean Corpuscular Hemoglobin 26.3 pg Mean Corpuscular Hemoglobin Concent 32.1 g/dl Platelet Count 137 K/uL Mean Platelet Volume 10.2 fL Neutrophils (%) (Auto) 72.2 % Lymphocytes (%) (Auto) 7.6 % Monocytes (%) (Auto) 12.5 % Eosinophils (%) (Auto) 6.3 % Basophils (%) (Auto) 1.1 % Neutrophils # (Auto) 4.68 K/uL Lymphocytes # (Auto) 0.49 K/uL Monocytes # (Auto) 0.81 K/uL Eosinophils # (Auto) 0.41 K/uL Basophils # (Auto) 0.07 K/uL RDW Standard Deviation 51.9 fL RDW Coefficient of Variation 17.1 % Immature Granulocyte % (Auto) 0.3 % Immature Granulocyte # (Auto) 0.02 K/uL Prothrombin Time 11.3 SECONDS Prothromb Time International Ratio 1.1 Activated Partial Thromboplast Time 38.3 SECONDS Partial Thromboplastin Ratio 1.5 Sodium Level 132 mmol/L Potassium Level 4.6 mmol/L Chloride Level 98 mmol/L Carbon Dioxide Level 26 mmol/L Anion Gap 8.0 mmol/L Blood Urea Nitrogen 20 mg/dl Creatinine 1.99 mg/dl Est Creatinine Clear Calc Drug Dose 36.8 ml/min Estimated GFR () 39.9 Estimated GFR (Non- 34.5 BUN/Creatinine Ratio 10.2 Random Glucose 155 mg/dl Calcium Level 8.2 mg/dl Total Bilirubin 1.5 mg/dl Aspartate Amino Transf (AST/SGOT) 42 U/L Alanine Aminotransferase (ALT/SGPT) 29 U/L Alkaline Phosphatase 315 U/L Total Creatine Kinase 27 U/L Creatine Kinase MB 0.7 ng/ml Creatine Kinase MB Ratio 2.6 Troponin I < 0.015 ng/ml Total Protein 6.0 gm/dl Albumin 2.5 gm/dl Globulin 3.5 gm/dl Albumin/Globulin Ratio 0.7 Influenza Type A Antigen Neg for Influ A Influenza Type B Antigen Neg for Influ B Bedside Lactic Acid Venous 2.75 mmol/L Urine Color DK YELLOW Urine Appearance CLOUDY Urine pH 5.0 Urine Specific [place] 1.017 Urine Protein NEG Urine Glucose (UA) NEG Urine Ketones NEG Urine Occult Blood 1+ Urine Nitrite NEG Urine Bilirubin NEG Urine Urobilinogen NEG Urine Leukocyte Esterase TRACE Urine WBC (Auto) 1-5 /hpf Urine RBC (Auto) 0-4 /hpf Urine Hyaline Casts (Auto) 1-5 /lpf Urine Epithelial Cells (Auto) 5-10 /lpf Urine Bacteria (Auto) NEG Urine Crystals CALCIUM OXALATE Urine Yeast (Auto) BUDDING Test 12/17/17 03:42 12/17/17 03:44 12/17/17 04:02 Bedside Blood Gas pH (LAB) 7.39 Bedside Blood Gas pCO2 (LAB) 34 mmHg Bedside Blood Gas pO2 (LAB) 85 mmHg Bedside Blood Gas HCO3 (LAB) 21 meq/L Bedside Blood Gas Total CO2 22 mEq/l Bedside Blood Gas Base Excess (LAB) -4.0 meq/L Bedside Blood Gas O2 Saturation 97.0 % Ammonia 32.0 umol/L Diagnostic Results Images, labs, and reports were all obtained and reviewed by myself. Assessment & Plan (1) Hypotension (2) Septic shock Reason Critically Ill: 62-year-old male with extensive past medical history including cirrhosis, sarcoidosis, diabetes, hypertension, and multiple lumbar surgeries presented from an outpatient rehabilitation facility with sepsis from multiple possible sources requiring aggressive fluid resuscitation, close hemodynamic monitoring, and likely vasoactive medications for. Neuro - * CAM ICU: NEGATIVE * Acute Encephalopathy: * Likely 2/2 sepsis syndrome. * CT of the head ordered. * Will monitor for any changes. * Improvement of drowsiness upon arrival to the ICU. * h/o Chronic Lumbar Pain w/ multiple previous lumbar surgeries: * Pain Rx PRN Cardiac - * Hypotension 2/2 sepsis: * Albumin q6h * Stress dose steroids 2/2 chronic steroid use. * Levophed PRN. * IVF hydration. * h/o HTN, ASD (repaired). * EKGs * AM Echo for evaluation of ??vegetations in the setting of sepsis/hypotension. * Monitor on telemetry. Respiratory - * ??Aspiration event contributing to illness: * Abx. * Nebs/steroids * NC PRN * THUY: * CPAP per home settings. GI - * h/o Cirrhosis 2/2 Sarcoidosis and EtOH use: * Continue Xifaxan/Lactulose. * Ammonia level not elevated. * h/o UGIB recently. * Prophylaxis w/ Protonix * NPO while pressors titrate. RENAL/LYTES - * LETTY: * Aggressive IVF in the ED. * Will att NSS@75mL/hr * Monitor electrolytes - replace appropriately. - * Verma if needed. ENDO - * IDDM: * ISS/gtt per protocol. * No h/o Thyroid Dz HEME - * Stable H&H at this point. * h/o thrombocytopenia - will monitor. * Currently on Lovenox therapeutic dose. Will continue. ID - * Sepsis w/ Shock: * ??Spinal abscess - CT pending?? * ??Aspiration Pneumonia * Elevated Lactic acid - will trend. * Check ProCal. * Vanc, Aztreonam * Will add caspofungin 2/2 recent Tx for SBP * Appreciate ID consultation. LINES/IV ACCESS - * PIVS intact. * Will need central venous access if pressors are required. DVT PROPHYLAXIS - * Will continue current Lovenox therapeutic dose for RLE DVT. * NO SCDs 2/2 DVT. I have personally spent 45 minutes of critical care time in the direct management of this patient. This is a life/limb threatening event. This includes time spent evaluating patient, direct bedside care, chart review, placing orders, interpretation of diagnostic studies, discussion with consultants, patient, and family members, as well as other required patient management activities. This time is exclusive of all separately billable procedures, and teaching time and separate from and in addition to any other critical care service time. Thank you for this consultation allow us to be part of this patient's care. Please refer to my attending physician's documentation for any further recommendations. Attending addendum, The patient was seen, examined independently, agree with assessment and plan of my colleague Gui. In summary this is [id number] gentleman with a history of liver cirrhosis, GI bleed in the past, hepatic encephalopathy, history of lumbar radiculopathy requiring multiple surgeries with most recent done in June 2017, complicated by wound infection and delayed wound healing due to liver cirrhosis and ascites. The patient was recently treated for wound infection with broad- spectrum antibiotic for the past 3 weeks recently was discharged to [facility] , he was returned from [facility] due to altered mental status, hypotension, and back pain. Concerns regarding recurrence of sepsis was mentioned. The patient was started empirically on broad-spectrum antibiotic including vancomycin, azithromycin and caspofungin. The patient was started also on IV fluid and admitted to the ICU for further management with diagnosis of sepsis. The patient underwent extensive imaging including payne CAT scan which showed difficult to interpret lumbar spine due to the hardware. I have discussed the case with Dr. Buchanan from radiology and he felt no value of doing MRI of the spine as it will be difficult to interpret as well. I have discussed the case with his in details and mentioned that the patient was fully awake at dinner 24 hours ago and he was not lethargic. The patient does have waxing and waning and he has been treated in the past for hyperammonemia. The patient had his surgery at [facility], and no further operative procedure was planned, the patient did have a recent GI bleed in which I did not have the results of noted the cause of the GI bleed. His physical exam revealed 62-year-old gentleman appeared older than his chronologic age, his vital signs showed blood pressure at borderline which was 93/55. He is chronically in that range. Heart rate is 102 and O2 saturation is 95. He does have jaundice, heart examination S1-S2 regular rate and rhythm, distant breath sounds bilaterally, he does have ventral hernia at the surgical wound in the abdomen with what appeared reducible fluid shift positive bowel sounds, and trace edema in the lower extremities. He does have back pain but difficult to assess. His neurologic status appeared nonfocal. The patient woke up to me and was able to answer questions and he had equal motor sensory function. I have reviewed his labs which showed slight increase in his BUN/creatinine from previous, he did not have leukocytosis, no left shift or bandemia, predominantly lymphocytosis. His urine sodium was less than 5 despite IV fluid with normal saline. He did not require any Levophed. Other imaging were reviewed and did not show overt CHF. Impression: #1 hypotension secondary to liver cirrhosis. I could not find any source of sepsis however the patient may not be febrile or had leukocytic reaction. I do believe that the patient could have hepatorenal syndrome given his very low sodium in the urine spot. #2 history of lumbar radiculopathy with multiple surgeries and fusion hardware at the lumbar spine with compression fracture of L1. Pain is controlled. #3 liver cirrhosis with history of hepatic encephalopathy, his ammonia level is only 32 but it has been in that range in the past with encephalopathy as well. #4 history of GI bleed in the past with no evidence of bleeding at this point. #5 although possible sepsis, I could not find any source at this point. Ascitic fluid in the past grew Christina glabrata but it was a rare on the smear only. The patient completed a course of antifungal therapy. Plan: #1 I will continue with IV fluid. #2 the patient would benefit from levo fed low dose for the treatment of HRS. #3 I would obtain a renal consult in the morning for evaluation of HRS. #4 continue with current antibiotics including vancomycin, aztreonam, caspofungin until 72 hours, if there is no source of infection antibiotics can be stopped entirely. #5 hepatic encephalopathy with ammonia level of 32, I will continue with lactulose and rifaximin. The patient did have hepatic encephalopathy in the past with that range of ammonia level. #6 no intervention and no MRI to the spine as I discuss it with Dr. Buchanan from radiology and likely it will not show any new findings. Lumbar puncture could be helpful however the patient woke up and answer the questions properly, the patient did not have any signs and symptoms of encephalopathy at the moment. His hypotension did be related to sepsis or fluid mobilization due to liver cirrhosis itself. #7 the patient did not require any pressors at this point, no Central line was placed in that regard. Patient remains on IV fluid. #8 GI and DVT prophylaxis. #9 discussed extensively and in details with the who was at the bedside. Critical care time spent with the patient was 60 minutes. Case discussed with Dr. Edwards, appreciate his input.
--- NOTE | 2017-12-17 05:11 | History and Physical ---
History & Physical Date & Time of Service: Dec 17, 2017 at 05:07 Chief Complaint: Illness/Fever Primary Care Physician: Hu Ackerman M.D. 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 The patient is secondary to his who stated that she had last seen at 5 PM and he appeared to be more tired than usual but was still alert. He was recently admitted at [facility] in November 2017 for abdominal wall cellulitis. Last year, he had a surgery for herniated L4-L5 disc and had multiple complications after the surgery with epidural abscess, spinal infection, osteomyelitis, infection of the hardware and collapse of L4 for which she had multiple surgical interventions. Past Medical/Surgical History Medical Problems: (1) Diabetic autonomic neuropathy Status: Chronic (Sarcoidosis Anemia Asthma Fungemia GERD Hyperlipidemia Hypertension Lumbar stenosis Sleep apnea Family History Patient reports no known family medical history. Social History Smoking Status: Never Smoker Smokeless Tobacco Use: No Alcohol Use: none Drug Use: none Marital Status: Housing status: lives with family Occupational Status: retired Immunizations History of Influenza Vaccine: Yes Influenza Vaccine Date: Oct 07, 2005 History of Tetanus Vaccine?: Unknown History of Pneumococcal: Yes Pneumococcal Date: Oct 07, 2004 History of Hepatitis B Vaccine: No Multi-Drug Resistant Organisms History of MDRO: No Allergies Coded Allergies: Celecoxib (Verified Allergy, Intermediate, HIVES, 12/17/17) Penicillins (Verified Allergy, Intermediate, HIVES, 12/17/17) Home Medications Scheduled Atorvastatin (Lipitor), 10 MG PO q dinner Cyclosporine (Ophth) (Restasis), 1 DROP OPB Q12 Docusate Sodium (Docusate Sodium), 1 CAP PO BID Enoxaparin (Lovenox), 80 MG SQ Q12H Fluoxetine (Prozac), 40 MG PO QAM Furosemide (Lasix), 40 MG PO DAILY Insulin Aspart (Novolog Penfill), SC ACHS Insulin Glargine (Lantus Solostar), 25 UNITS SC BID Lactulose (Chronulac), 30 ML PO BID Levalbuterol (Levalbuterol HCl), 1.25 MG INH TID Miconazole Nitrate (Desenex Shake Powder), 1 APPLN EXT BID Pantoprazole (Protonix), 40 MG PO QAM Potassium Ext Rel (Klor-Con), 20 MEQ PO BIDM Prednisone (Prednisone), 20 MG PO QAM Propranolol (Inderal), 10 MG PO DAILY Rifaximin (Xifaxan), 550 MG PO Q12 Spironolactone (Aldactone), 100 MG PO 3XWK Scheduled PRN Acetaminophen (Tylenol), 500 MG PO Q4H PRN for Pain Bisacodyl (Dulcolax), 1 SUPP [place] DAILY PRN for Constipation Ipratropium-Albuterol (Duoneb), 1 TREATMENT INH Q4H PRN for Wheezing Magnesium Hydroxide (Milk Of Magnesia), 30 ML PO DAILY PRN for Constipation Ondansetron Hcl (Zofran), 4 MG PO Q4 PRN for Nausea Oxycodone/Acetaminophen 10MG/325MG (Oxycodone/Acetaminophen 10MG/325MG), 1 TAB PO Q4 PRN for pain 7-10 Oxycodone/Acetaminophen 5MG/325MG (Oxycodone/Acetaminophen 5MG/325MG), 1 TAB PO Q4 PRN for pain 4-6 Polyethylene Glycol 3350 (Miralax), 17 GM PO DAILYBL PRN for Constipation Senna (Senokot), 1 TAB PO q lunch PRN for Constipation Sodium Phosphate/Biphosphate (Fleet Enema), 1 EA [place] DAILY PRN for Constipation Review of Systems Unable to obtain review of systems as the patient is very drowsy and lethargic Physical Exam Vital Signs Date Time Temp Pulse Resp B/P (MAP) Pulse Ox O2 Delivery O2 Flow Rate FiO2 12/17/17 04:42 37.5 93 16 92/51 97 12/17/17 03:37 93 92/51 97 Nasal Cannula 2.0 12/17/17 02:45 74/46 12/17/17 02:41 95 16 100 12/17/17 02:37 87/54 12/17/17 02:35 37.5 12/17/17 02:30 73/40 12/17/17 02:26 93 15 100 12/17/17 02:21 93 15 99 Nasal Cannula 2.0 12/17/17 02:15 75/50 12/17/17 02:07 71/46 12/17/17 02:06 93 14 74/42 98 Nasal Cannula 2.0 12/17/17 02:01 77/44 12/17/17 02:00 87/48 12/17/17 01:51 101 14 100 Nasal Cannula 2.0 12/17/17 01:45 105/62 12/17/17 01:36 99 16 98 Nasal Cannula 2.0 12/17/17 01:33 75/41 12/17/17 01:30 86/46 12/17/17 01:24 99/48 100 Nasal Cannula 2.0 12/17/17 01:24 100 Nasal Cannula 2.0 12/17/17 01:21 100 16 88 Room Air 12/17/17 01:06 99 16 91 Room Air 12/17/17 01:00 75/44 12/17/17 01:00 92 Room Air 12/17/17 00:51 101 15 93 Room Air 12/17/17 00:50 82/41 12/17/17 00:44 104 12/17/17 00:40 38.7 105 20 90/46 95 Room Air 12/17/17 00:39 90/46 General Appearance: + pertinent finding (drowsy and lethargic) Head: atraumatic Eyes: normal inspection Neck: supple Respiratory/Chest: lungs clear, no respiratory distress, no accessory muscle use Cardiovascular: + systolic murmur Abdomen/GI: soft, + tenderness (diffusely and especially right upper quadrant) , + distended, + hernia Extremities/Musculoskelatal: + pedal edema (trace) Neurologic/Psych: + disoriented Skin: + jaundice Diagnostics Laboratory Results Results Past 24 Hours Test 12/17/17 00:20 12/17/17 00:52 12/17/17 00:54 12/17/17 02:15 Range/Units White Blood Count 6.48 4.8-10.8 K/uL Red Blood Count 3.42 4.7-6.1 M/uL Hemoglobin 9.0 14.0-18.0 g/dL Hematocrit 28.0 42-52 % Mean Corpuscular Volume 81.9 80-100 fL Mean Corpuscular Hemoglobin 26.3 25-34 pg Mean Corpuscular Hemoglobin Concent 32.1 32-36 g/dl Platelet Count 137 130-400 K/uL Mean Platelet Volume 10.2 7.4-10.4 fL Neutrophils (%) (Auto) 72.2 % Lymphocytes (%) (Auto) 7.6 % Monocytes (%) (Auto) 12.5 % Eosinophils (%) (Auto) 6.3 % Basophils (%) (Auto) 1.1 % Neutrophils # (Auto) 4.68 1.4-6.5 K/uL Lymphocytes # (Auto) 0.49 1.2-3.4 K/uL Monocytes # (Auto) 0.81 0.11-0.59 K/uL Eosinophils # (Auto) 0.41 0-0.5 K/uL Basophils # (Auto) 0.07 0-0.2 K/uL RDW Standard Deviation 51.9 36.4-46.3 fL RDW Coefficient of Variation 17.1 11.5-14.5 % Immature Granulocyte % (Auto) 0.3 % Immature Granulocyte # (Auto) 0.02 0.00-0.02 K/uL Prothrombin Time 11.3 9.0-12.0 SECONDS Prothromb Time International Ratio 1.1 0.9-1.1 Activated Partial Thromboplast Time 38.3 21.0-31.0 SECONDS Partial Thromboplastin Ratio 1.5 Sodium Level 132 136-145 mmol/L Potassium Level 4.6 3.5-5.1 mmol/L Chloride Level 98 98-107 mmol/L Carbon Dioxide Level 26 21-32 mmol/L Anion Gap 8.0 3-11 mmol/L Blood Urea Nitrogen 20 7-18 mg/dl Creatinine 1.99 0.60-1.40 mg/dl Est Creatinine Clear Calc Drug Dose 36.8 ml/min Estimated GFR () 39.9 Estimated GFR (Non- 34.5 BUN/Creatinine Ratio 10.2 10-20 Random Glucose 155 70-99 mg/dl Calcium Level 8.2 8.5-10.1 mg/dl Total Bilirubin 1.5 0.2-1 mg/dl Aspartate Amino Transf (AST/SGOT) 42 15-37 U/L Alanine Aminotransferase (ALT/SGPT) 29 12-78 U/L Alkaline Phosphatase 315 45-117 U/L Total Creatine Kinase 27 39-308 U/L Creatine Kinase MB 0.7 0.5-3.6 ng/ml Creatine Kinase MB Ratio 2.6 0-3.0 Troponin I < 0.015 0-0.045 ng/ml Total Protein 6.0 6.4-8.2 gm/dl Albumin 2.5 3.4-5.0 gm/dl Globulin 3.5 2.5-4.0 gm/dl Albumin/Globulin Ratio 0.7 0.9-2 Influenza Type A Antigen Neg for Influ A NEG Influenza Type B Antigen Neg for Influ B NEG Bedside Lactic Acid Venous 2.75 0.90-1.70 mmol/L Urine Color DK YELLOW Urine Appearance CLOUDY CLEAR Urine pH 5.0 4.5-7.5 Urine Specific [place] 1.017 1.000-1.030 Urine Protein NEG NEG Urine Glucose (UA) NEG NEG Urine Ketones NEG NEG Urine Occult Blood 1+ NEG Urine Nitrite NEG NEG Urine Bilirubin NEG NEG Urine Urobilinogen NEG NEG Urine Leukocyte Esterase TRACE NEG Urine WBC (Auto) 1-5 0-5 /hpf Urine RBC (Auto) 0-4 0-4 /hpf Urine Hyaline Casts (Auto) 1-5 0-5 /lpf Urine Epithelial Cells (Auto) 5-10 0-5 /lpf Urine Bacteria (Auto) NEG NEG Urine Crystals CALCIUM OXALATE NONE PRSENT Urine Yeast (Auto) BUDDING NONE PRSENT Test 12/17/17 03:42 12/17/17 03:44 12/17/17 04:29 Range/Units Bedside Blood Gas pH (LAB) 7.39 7.35-7.45 Bedside Blood Gas pCO2 (LAB) 34 35-46 mmHg Bedside Blood Gas pO2 (LAB) 85 80-95 mmHg Bedside Blood Gas HCO3 (LAB) 21 19-24 meq/L Bedside Blood Gas Total CO2 22 24-31 mEq/l Bedside Blood Gas Base Excess (LAB) -4.0 -9-1.8 meq/L Bedside Blood Gas O2 Saturation 97.0 90-95 % Ammonia 32.0 11-32 umol/L Lactic Acid Level 2.0 0.4-2.0 mmol/L Microbiology Results 12/17/17 Blood Culture, Received Pending 12/17/17 Blood Culture, Received Pending 12/17/17 Urine Culture, Received Pending Impression Assessment and Plan 62-year-old male with a past medical history of 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 On arrival, he was febrile and was hypotensive in the late 70s to 80s systolic. He was fluid resuscitated with 3 L of normal saline. He was transferred to the ICU in anticipation of need for pressor support Altered mental status: Likely secondary to sepsis - Head CT ordered - Ammonia level within normal limits Septic shock: Unknown source of infection - No leukocytosis but is febrile, tachycardic and hypotensive - lactic acid elevated at 2.3, repeat lactic acid currently pending - UA unremarkable - Influenza negative - Chest x-ray with probable right middle infiltrate - CT chest , CT abdomen and pelvis, CT lumbar spine ordered - Broad-spectrum antibiotics, vancomycin and aztreonam (added considering h/o fungal peritonitis) - IV fluids at 125 mls/hr - albumin 25% 25 mg IVq6h - levophed started Renal insufficiency: - Creatinine at 1.9, baseline 1.2 - Likely secondary to septic shock causing decreased perfusion - Continue IV fluids and monitor creatinine Sarcoidosis: - Is on chronic prednisone 20 mg daily - Stress dose of 100 mg of hydrocortisone every 8 hours Type 2 diabetes - A1c 8.4 (Sep 2017) - SSI Portal hypertension/alcoholic/sarcoidosis-induced cirrhosis - Rifaximin and lactulose,propranolol currently held - Lasix 40 mg daily and Spironolactone 100 mg currently held Right Common Femoral DVT and Superficial Femoral Vein: - on lovenox which has been held considering his decreased renal function. - started on heparin drip Full code Dispo: admitted to ICU Attending addendum: I have physically seen this patient, have supervised the medical residents activities, and agree with the H&P unless as otherwise noted. Assessment and Plan: Septic shock/pneumonia involving right lung-- Admission to ICU CT of chest, abdomen and pelvis, and lumbar spine ordered Vancomycin IV and aztreonam IV. Caspofungin IV daily due to history of fungal peritonitis Continue Levophed begun in the ED with usual titration parameters next Give albumin 25 g IV every 6 hours 4 doses Acute kidney injury-- Creatinine on admission 1.9, with baseline 1.2 Monitor serial laboratories for improvement next Sarcoidosis/chronic prednisone 20 mg daily-- Stress dose steroids hydrocortisone 100 mg IV every 8 hours X Right common femoral/superficial femoral vein DVT-- Change Lovenox to heparin drip Level of Care Critical Care Advanced Directives Existing Advance Directive: No Existing Living Will: No Existing Power of Assistive Technology Trainer: No Resuscitation Status FULL RESUSCITATION VTE Prophylaxis VTE Risk Assessment Done? Y/N: Yes Risk Level: Moderate Given or contraindicated: Other Anticoagulation (heparin drip) Note Total Time: Critical Care 30 - 74 minutes Resident Tracking Resident Involvement: Resident Care Provided Care Provided: Adult Hospital Medicine
[2017-12-17] MEDS ORDERED: GLUCOSE 10 TABS/TUBE PO PRN (05:45)
[2017-12-17] MEDS ORDERED: DEXTROSE 50% 50 ML SYR IV PRN (05:45)
[2017-12-17] MEDS ORDERED: GLUCOSE 40% GEL 15 GM TUBE PO PRN (05:45)
[2017-12-17] MEDS ORDERED: GLUCAGON FOR INJ 1 MG VIAL SQ PRN (05:45)
[2017-12-17] MEDS: SODIUM CHLORIDE 0.9% 1000ML 1,000 ML IV SCH ×3 (06:00→22:00)
[2017-12-17] MEDS ORDERED: CASPOFUNGIN INJ 70 MG in SODIUM CHLORIDE 0.9% 250ML 250 ML IV SCH (06:30)
--- NOTE | 2017-12-17 06:53 | DIAGNOSTIC IMAGING REPORT ---
CT OF THE HEAD WITHOUT CONTRAST CLINICAL HISTORY: Altered mental status. Fever. COMPARISON STUDY: Head CT November 29, 2017. CT DOSE: 614.27 mGy.cm TECHNIQUE: Helical axial images of the head were obtained without IV contrast. Automated exposure control was utilized for the study. A dose lowering technique was utilized adhering to the principles of ALARA. FINDINGS: No acute intracranial hemorrhage, midline shift or mass affect is present. Ventricular system is stable. Basilar cisterns are patent. There are no extra-axial collections. Sunshine-white differentiation is maintained. There are no findings to suggest acute dural sinus thrombosis or acute territorial infarct. There are no calvarial fractures. Mastoid air cells are clear. Postoperative findings within the sinuses are noted. There is moderate mucosal thickening of the right maxillary sinus. The right sphenoid sinus is opacified. This is similar to study of November 29, 2017. IMPRESSION: 1. No acute intracranial findings. 2. Right maxillary and sphenoid sinus opacification, as described above. Electronically signed by: Shayne Buchanan M.D. 12/17/2017 6:51 AM Dictated Date/Time: 12/17/2017 6:48 AM
--- NOTE | 2017-12-17 06:59 | DIAGNOSTIC IMAGING REPORT ---
RIGHT LOWER EXTREMITY VENOUS DOPPLER CLINICAL HISTORY: Septic shock. Altered mental status. COMPARISON STUDY: Right lower extremity venous Doppler November 23, 2017. TECHNIQUE: Sonography of the deep venous system of the right lower extremity was performed. FINDINGS: Nonocclusive deep venous thrombus within the right common femoral vein is noted. The thrombus extension into the superficial femoral vein shown on prior exam of November 23, 2017 was not depicted on this exam. No additional sites of deep venous thrombus within the right lower extremity were identified. IMPRESSION: Nonocclusive deep venous thrombus within the right common femoral vein. Comparison by sonography is difficult however the amount of thrombus is either similar or slightly diminished since exam of November 23, 2017. Electronically signed by: Shayne Buchanan M.D. 12/17/2017 6:57 AM Dictated Date/Time: 12/17/2017 6:55 AM
--- NOTE | 2017-12-17 07:08 | DIAGNOSTIC IMAGING REPORT ---
CT OF THE CHEST WITHOUT IV CONTRAST CLINICAL HISTORY: Altered mental status. Fever. COMPARISON STUDY: Chest CT January 19, 2016 and chest radiograph performed earlier today. TECHNIQUE: Axial images of the chest were obtained without IV contrast. Images were reviewed in the axial, sagittal, and coronal planes. IV contrast was not administered for this examination. A dose lowering technique was utilized adhering to the principles of ALARA. FINDINGS: There is no axillary lymphadenopathy. Multiple mildly enlarged partially calcified mediastinal and bilateral hilar lymph nodes are similar to CT of January 19, 2016. The heart is moderately enlarged. An ASD occluder is noted. There is bilateral gynecomastia. There is no pericardial effusion. The abdomen and pelvis will be reported separately. No pneumothorax is present. There is a trace right pleural effusion. A few calcified granulomas are noted. There are scattered mild groundglass opacities. There is no confluent consolidation. Central airways are patent. No significant abnormalities of the bony thorax are noted. Elevation of the right hemidiaphragm is noted. IMPRESSION: 1. Scattered mild groundglass opacities within the lungs, most evident within the left upper lobe. This could reflect a mild infectious process or atelectasis. No confluent consolidation. 2. Moderate cardiomegaly. 3. No change in multiple mildly enlarged mediastinal and bilateral hilar lymph nodes which are partially calcified since CT of January 19, 2016. This suggests a granulomatous process such as sarcoidosis. Electronically signed by: Shayne Buchanan M.D. 12/17/2017 7:07 AM Dictated Date/Time: 12/17/2017 6:57 AM
--- NOTE | 2017-12-17 07:20 | DIAGNOSTIC IMAGING REPORT ---
CT OF THE ABDOMEN AND PELVIS WITHOUT CONTRAST CLINICAL HISTORY: Fever. Altered mental status. Possible sepsis. COMPARISON STUDY: CT of the abdomen and pelvis November 23, 2017. TECHNIQUE: Axial images of the abdomen and pelvis were obtained without IV contrast. Images were reviewed in the axial, sagittal, and coronal planes. A dose lowering technique was utilized adhering to the principles of ALARA. FINDINGS: The lumbar spine CT will be reported separately. Evaluation of the abdomen and pelvis is suboptimal on this unenhanced exam. No pneumatosis, free air or portal venous gas is present. The chest will be reported separately. A small amount of ascites is noted within the abdomen and pelvis. The previously described complex multiloculated fluid collection superficial and deep to the left lateral abdominal wall has significantly decreased in size since CT of November 23, 2017. The largest component along the left lateral abdominal wall now measures 9.6 x 4.2 cm. It previously measured 16.7 x 7.8 cm on exam of November 23, 2017. A subcutaneous component within the left lower quadrant now measures 6.8 x 3.5 cm. It previously measured 10.8 x 9.2 cm. There is no evidence for a bowel obstruction. The liver is cirrhotic. No lesions are identified although sensitivity is diminished on this unenhanced exam. Moderate splenomegaly is noted. There are are multiple varices. Diffuse mesenteric infiltration is noted. This may be related to portal hypertension. There is a moderate amount of stool within the rectum. Unenhanced images of the adrenal glands and kidneys are unremarkable with exception of a 5 mm left renal calculus. There is no hydronephrosis. There is no biliary or pancreatic ductal dilatation. Suspected postoperative findings consistent with a left inguinal hernia repair with mesh is noted. IMPRESSION: 1. Cirrhosis with manifestations of portal hypertension including splenomegaly and varices formation. Small amount of abdominal and pelvic ascites. Significant decrease in size of the multiloculated fluid collection superficial and deep to the left lateral abdominal wall since exam of November 23, 2017. 2. No bowel obstruction. 3. 5 mm left renal calculus. Electronically signed by: Shayne Buchanan M.D. 12/17/2017 7:19 AM Dictated Date/Time: 12/17/2017 7:07 AM
[2017-12-17] MEDS: INSULIN ASPART 100 UNITS/ML 3 ML PEN SC SCH ×4 (07:35→21:22)
--- NOTE | 2017-12-17 07:36 | DIAGNOSTIC IMAGING REPORT ---
LUMBAR SPINE WITHOUT CLINICAL HISTORY: Altered mental status. Fever. Possible sepsis. COMPARISON STUDY: Lumbar spine CT November 23, 2017 and lumbar spine MRI December 01, 2017. FINDINGS: The CT of the abdomen and pelvis will be reported separately. Extensive postoperative findings within the lumbar spine are noted. Evaluation of the lumbar spine is suboptimal given CT technique and streak artifact from the surgical hardware. There are bilateral iliac bolts. There is anterior fusion extending from L3 through S1. There are bilateral pedicle screws at the L2, L3 and S1 levels. Severe L1 compression fracture is noted with minimal retropulsion.. Vertebral body height loss has increased since exam of November 23, 2017. Marked disc space narrowing at L4-L5 is unchanged with irregularity and loss of height of the inferior endplate of L4 and superior endplate of L5. This is unchanged and CT of November 23, 2017. Mild loss of height of the superior plate of L3 is unchanged. No acute fracture is identified on this examination. Evaluate for the central canal and neural foramen is essentially nondiagnostic. IMPRESSION: 1. Extensive postoperative findings within lumbar spine, as described above. Evaluation of the central canal and neural foramen is nearly nondiagnostic given CT technique and streak artifact from the hardware. 2. Severe L1 compression fracture with interval loss of vertebral body height since exam of November 23, 2017. Fractures of L3, L4 and L5 which are similar to exam of November 23, 2017. Marked disc space narrowing at L4-L5 which is unchanged. Electronically signed by: Shayne Buchanan M.D. 12/17/2017 7:34 AM Dictated Date/Time: 12/17/2017 7:25 AM
[2017-12-17] MEDS ORDERED: VANCOMYCIN INJ 2,000 MG in SODIUM CHLORIDE 0.9% 500ML 500 ML IV SCH (08:00)
[2017-12-17] MEDS ORDERED: HEPARIN 25,000 UNIT/500ML D5W 500 ML IV SCH (08:45)
[2017-12-17] MEDS ORDERED: VANCOMYCIN INJ 1,000 MG in SODIUM CHLORIDE 0.9% 250ML 250 ML IV SCH (09:00)
[2017-12-17] MEDS: AZTREONAM IV 2,000 MG in DEXTROSE 5% 100ML 100 ML IV SCH ×2 (09:01→16:23)
[2017-12-17] MEDS: PANTOprazole INJ 40 MG in SYRINGE 0 ML IV SCH (09:01)
[2017-12-17] MEDS: HEPARIN 25,000 UNIT/500ML D5W 500 ML IV PRN ×2 (09:03→20:29)
--- NOTE | 2017-12-17 09:51 | Pharmacy Progress Note ---
Pharmacy Abx Initial Consult Date of Service Dec 17, 2017. Pharmacy Dosing Scope Date of Consult: 12/17/17 Consultation requested by: Dr. Rivera Pharmacy is consulted to initiate Vancomycin IV dosing therapy, order appropriate labs and adjust drug dose/frequency. Pt is also on aztreonam and caspofungin. Subjective The patient is a 62 year old male admitted on Dec 17, 2017 at 04:08. Objective Height (Feet): 5 Height (Inches): 5.00 Weight (Kilograms): 82.600 Vital Signs (Past 12Hrs) Vital Signs Past 12 Hours Date Time Temp Pulse Resp B/P (MAP) Pulse Ox O2 Delivery O2 Flow Rate FiO2 12/17/17 08:00 36.8 98 17 101/54 (70) 99 Nasal Cannula 2.0 12/17/17 08:00 Nasal Cannula 2.0 12/17/17 07:44 92 18 90/58 (69) 98 Nasal Cannula 2.0 12/17/17 07:00 93 20 84/51 (62) 98 Nasal Cannula 2.0 12/17/17 06:00 90 84/51 (62) 100 Nasal Cannula 3.0 12/17/17 05:26 91/58 (69) 97 Nasal Cannula 3.0 12/17/17 05:01 98 94/53 (67) 98 Nasal Cannula 3.0 12/17/17 05:00 37.0 97 18 94/53 97 Nasal Cannula 3.0 12/17/17 04:57 97 79/48 (58) 96 Nasal Cannula 3.0 12/17/17 04:45 93 86/47 (60) 100 Nasal Cannula 3.0 12/17/17 04:42 37.5 93 16 92/51 97 12/17/17 04:30 94 14 83/48 (60) 100 Nasal Cannula 3.0 12/17/17 04:15 96 16 87/48 (61) 100 Nasal Cannula 3.0 12/17/17 04:00 94 15 81/47 (58) 99 Nasal Cannula 3.0 12/17/17 03:37 93 92/51 97 Nasal Cannula 2.0 12/17/17 02:45 74/46 12/17/17 02:41 95 16 100 12/17/17 02:37 87/54 12/17/17 02:35 37.5 12/17/17 02:30 73/40 12/17/17 02:26 93 15 100 12/17/17 02:21 93 15 99 Nasal Cannula 2.0 12/17/17 02:15 75/50 12/17/17 02:07 71/46 12/17/17 02:06 93 14 74/42 98 Nasal Cannula 2.0 12/17/17 02:01 77/44 12/17/17 02:00 87/48 12/17/17 01:51 101 14 100 Nasal Cannula 2.0 12/17/17 01:45 105/62 12/17/17 01:36 99 16 98 Nasal Cannula 2.0 12/17/17 01:33 75/41 12/17/17 01:30 86/46 12/17/17 01:24 99/48 100 Nasal Cannula 2.0 12/17/17 01:24 100 Nasal Cannula 2.0 12/17/17 01:21 100 16 88 Room Air 12/17/17 01:06 99 16 91 Room Air 12/17/17 01:00 75/44 12/17/17 01:00 92 Room Air 12/17/17 00:51 101 15 93 Room Air 12/17/17 00:50 82/41 12/17/17 00:44 104 12/17/17 00:40 38.7 105 20 90/46 95 Room Air 12/17/17 00:39 90/46 Lab Results (24Hrs) Laboratory Tests (24 Hours) Test 12/17/17 00:20 12/17/17 04:29 White Blood Count 6.48 K/uL (4.8-10.8) Red Blood Count 3.42 M/uL (4.7-6.1) L Hemoglobin 9.0 g/dL (14.0-18.0) L Hematocrit 28.0 % (42-52) L Mean Corpuscular Volume 81.9 fL (80-100) Mean Corpuscular Hemoglobin 26.3 pg (25-34) Mean Corpuscular Hemoglobin Concent 32.1 g/dl (32-36) Platelet Count 137 K/uL (130-400) Mean Platelet Volume 10.2 fL (7.4-10.4) Neutrophils (%) (Auto) 72.2 % Lymphocytes (%) (Auto) 7.6 % Monocytes (%) (Auto) 12.5 % Eosinophils (%) (Auto) 6.3 % Basophils (%) (Auto) 1.1 % Neutrophils # (Auto) 4.68 K/uL (1.4-6.5) Lymphocytes # (Auto) 0.49 K/uL (1.2-3.4) L Monocytes # (Auto) 0.81 K/uL (0.11-0.59) H Eosinophils # (Auto) 0.41 K/uL (0-0.5) Basophils # (Auto) 0.07 K/uL (0-0.2) Total Creatine Kinase 27 U/L (39-308) L Lactic Acid Level 2.0 mmol/L (0.4-2.0) Micro Results Date/Time Source Procedure Growth Status 12/17/17 01:01 Blood Blood Culture Pending Received 12/17/17 00:55 Blood Blood Culture Pending Received 12/17/17 05:45 Nasal MRSA DNA Surveillance Screen - Final Specimen Negative for MRSA by DNA Probe Complete 12/17/17 02:30 Urine,Catheterized Urine Culture Pending Received Risk Factors for Resistance * Resident in a intermediate or extended-care facility: [facility] * Hospitalization for 48 hours or more within the past 90 days * Admitted early Nov 2017 for abdominal wall cellulitis * Antimicrobial use within the last 90 days * Pt was on vancomycin and rocephin in early Nov 2017 Assessment & Plan Assessment 62 year old male presented to the ER from [facility] with septic shock. PMH of DM, fungemia (07/2017), epidural abscess, osteomyelitis, and has chronic sarcoidosis. * Scr of 1.9 today is slightly elevated above baseline of 1.2-1.4. * Nasal swab is negative for MRSA * Urine and blood cultures pending Plan Vancomycin for treatment of unspecified infection, unknown origin. Vancomycin IV * Loading dose: 2000 mg (25 mg/kg) * Maintenance dose:1250 mg IV (15 mg/kg) every 24 hours * Goal trough level : 15 to 20 mcg/mL * Trough level ordered for 12/20 @0330 Pharmacy will continue to follow and will adjust dose/frequency as necessary. Thank you.
--- NOTE | 2017-12-17 10:02 | DIAGNOSTIC IMAGING REPORT ---
CHEST ONE VIEW PORTABLE CLINICAL HISTORY: Sepsis COMPARISON STUDY: Chest radiograph November 23, 2017. FINDINGS: Cardiomegaly is unchanged. Elevation of the right hemidiaphragm is unchanged. Mild interstitial thickening is unchanged. There is no pneumothorax or pleural effusion. IMPRESSION: No acute cardiopulmonary findings. No change in appearance of the chest. Electronically signed by: Shayne Buchanan M.D. 12/17/2017 10:01 AM Dictated Date/Time: 12/17/2017 10:00 AM
[2017-12-17] MEDS: HYDROCORTISONE IV 100 MG in SYRINGE 0 ML IV SCH ×2 (11:51→20:20)
[2017-12-17 12:56] LABS: POTASSIUM RANDOM URINE 41.9 mEq/L; SODIUM RANDOM URINE < 5 mEq/L
--- NOTE | 2017-12-17 14:20 | Progress Note ---
Subjective Date of Service: Dec 17, 2017. Subjective This patient looks about his usual state he is arousable claims she has no discomfort claims he feels better Problem List Medical Problems: (1) Altered mental status Status: Acute (2) Ascites Status: Acute (3) Cellulitis of left abdominal wall Status: Acute (4) Dvt femoral (deep venous thrombosis) Status: Acute (5) Fall in home Status: Acute (6) Fever Status: Acute (7) GI bleed Status: Acute (8) Hepatic encephalopathy Status: Acute (9) Hypokalemia Status: Acute (10) Hypotension Status: Acute (11) Hypotension Status: Acute (12) Hypoxia Status: Acute (13) Immunocompromised Status: Acute (14) Lactic acidosis Status: Acute (15) Left leg cellulitis Status: Acute (16) Lumbar compression fracture Status: Acute (17) Lumbar disc herniation with radiculopathy Status: Acute (18) Orthostasis Status: Acute (19) Pneumonia Status: Acute (20) Sepsis Status: Acute (21) Septic shock Status: Acute (22) Severe sepsis Status: Acute (23) Tenosynovitis, de Quervain Status: Acute (24) Vomiting Status: Acute Review of Systems Constitutional: + weakness, No fever, No chills Respiratory: + dyspnea on exertion, No cough, No shortness of breath Cardiac: + edema, No chest pain Abdomen: + problem reported (mild distention), No pain, No nausea, No vomiting Psychiatric: No depression symptoms, No anxiety Objective Vital Signs Date Time Temp Pulse Resp B/P (MAP) Pulse Ox O2 Delivery O2 Flow Rate FiO2 12/17/17 14:00 104 17 105/57 (73) 100 Nasal Cannula 2.0 12/17/17 13:00 102 16 84/51 (62) 99 Nasal Cannula 2.0 12/17/17 12:30 100 18 97/53 (68) 99 Nasal Cannula 2.0 12/17/17 12:00 36.7 100 16 88/53 (65) 98 Nasal Cannula 2.0 12/17/17 12:00 Nasal Cannula 2.0 12/17/17 11:00 97 16 95/53 (67) 98 Nasal Cannula 2.0 12/17/17 10:00 97 20 92/55 (67) 95 Nasal Cannula 2.0 12/17/17 09:30 98 16 98/60 (73) 97 Nasal Cannula 2.0 12/17/17 09:13 93 18 88/50 (63) 99 Nasal Cannula 2.0 12/17/17 08:41 96 17 91/57 (68) 100 Nasal Cannula 2.0 12/17/17 08:00 36.8 98 17 101/54 (70) 99 Nasal Cannula 2.0 12/17/17 08:00 Nasal Cannula 2.0 12/17/17 07:44 92 18 90/58 (69) 98 Nasal Cannula 2.0 12/17/17 07:00 93 20 84/51 (62) 98 Nasal Cannula 2.0 12/17/17 06:00 90 84/51 (62) 100 Nasal Cannula 3.0 12/17/17 05:26 91/58 (69) 97 Nasal Cannula 3.0 12/17/17 05:01 98 94/53 (67) 98 Nasal Cannula 3.0 12/17/17 05:00 37.0 97 18 94/53 97 Nasal Cannula 3.0 12/17/17 04:57 97 79/48 (58) 96 Nasal Cannula 3.0 12/17/17 04:45 93 86/47 (60) 100 Nasal Cannula 3.0 12/17/17 04:42 37.5 93 16 92/51 97 12/17/17 04:30 94 14 83/48 (60) 100 Nasal Cannula 3.0 12/17/17 04:15 96 16 87/48 (61) 100 Nasal Cannula 3.0 12/17/17 04:00 94 15 81/47 (58) 99 Nasal Cannula 3.0 12/17/17 03:37 93 92/51 97 Nasal Cannula 2.0 12/17/17 02:45 74/46 12/17/17 02:41 95 16 100 12/17/17 02:37 87/54 12/17/17 02:35 37.5 12/17/17 02:30 73/40 12/17/17 02:26 93 15 100 12/17/17 02:21 93 15 99 Nasal Cannula 2.0 12/17/17 02:15 75/50 12/17/17 02:07 71/46 12/17/17 02:06 93 14 74/42 98 Nasal Cannula 2.0 12/17/17 02:01 77/44 12/17/17 02:00 87/48 12/17/17 01:51 101 14 100 Nasal Cannula 2.0 12/17/17 01:45 105/62 12/17/17 01:36 99 16 98 Nasal Cannula 2.0 12/17/17 01:33 75/41 12/17/17 01:30 86/46 12/17/17 01:24 99/48 100 Nasal Cannula 2.0 12/17/17 01:24 100 Nasal Cannula 2.0 12/17/17 01:21 100 16 88 Room Air 12/17/17 01:06 99 16 91 Room Air 12/17/17 01:00 75/44 12/17/17 01:00 92 Room Air 12/17/17 00:51 101 15 93 Room Air 12/17/17 00:50 82/41 12/17/17 00:44 104 12/17/17 00:40 38.7 105 20 90/46 95 Room Air 12/17/17 00:39 90/46 Physical Exam General Appearance: WD/WN, + mild distress, + moderate distress Respiratory/Chest: chest non-tender, + decreased breath sounds, + accessory muscle use Cardiovascular: regular rate, rhythm, + systolic murmur Abdomen: normal bowel sounds, soft, + distended (no large fluid wave consistent with ascites) Extremities: + pedal edema (minor tenderness to his right lateral a little less ) Neurologic/Psychiatric: alert, oriented x 3 (but drowsy) Laboratory Results Last 24 Hours Test 12/17/17 00:00 12/17/17 00:20 12/17/17 00:52 12/17/17 00:54 Urine Random Sodium < 5 mEq/L Urine Random Potassium 41.9 mEq/L Urine Random Chloride < 10 mEq/L White Blood Count 6.48 K/uL Red Blood Count 3.42 M/uL Hemoglobin 9.0 g/dL Hematocrit 28.0 % Mean Corpuscular Volume 81.9 fL Mean Corpuscular Hemoglobin 26.3 pg Mean Corpuscular Hemoglobin Concent 32.1 g/dl Platelet Count 137 K/uL Mean Platelet Volume 10.2 fL Neutrophils (%) (Auto) 72.2 % Lymphocytes (%) (Auto) 7.6 % Monocytes (%) (Auto) 12.5 % Eosinophils (%) (Auto) 6.3 % Basophils (%) (Auto) 1.1 % Neutrophils # (Auto) 4.68 K/uL Lymphocytes # (Auto) 0.49 K/uL Monocytes # (Auto) 0.81 K/uL Eosinophils # (Auto) 0.41 K/uL Basophils # (Auto) 0.07 K/uL RDW Standard Deviation 51.9 fL RDW Coefficient of Variation 17.1 % Immature Granulocyte % (Auto) 0.3 % Immature Granulocyte # (Auto) 0.02 K/uL Prothrombin Time 11.3 SECONDS Prothromb Time International Ratio 1.1 Activated Partial Thromboplast Time 38.3 SECONDS Partial Thromboplastin Ratio 1.5 Sodium Level 132 mmol/L Potassium Level 4.6 mmol/L Chloride Level 98 mmol/L Carbon Dioxide Level 26 mmol/L Anion Gap 8.0 mmol/L Blood Urea Nitrogen 20 mg/dl Creatinine 1.99 mg/dl Est Creatinine Clear Calc Drug Dose 36.8 ml/min Estimated GFR () 39.9 Estimated GFR (Non- 34.5 BUN/Creatinine Ratio 10.2 Random Glucose 155 mg/dl Calcium Level 8.2 mg/dl Total Bilirubin 1.5 mg/dl Aspartate Amino Transf (AST/SGOT) 42 U/L Alanine Aminotransferase (ALT/SGPT) 29 U/L Alkaline Phosphatase 315 U/L Total Creatine Kinase 27 U/L Creatine Kinase MB 0.7 ng/ml Creatine Kinase MB Ratio 2.6 Troponin I < 0.015 ng/ml Total Protein 6.0 gm/dl Albumin 2.5 gm/dl Globulin 3.5 gm/dl Albumin/Globulin Ratio 0.7 Influenza Type A Antigen Neg for Influ A Influenza Type B Antigen Neg for Influ B Bedside Lactic Acid Venous 2.75 mmol/L Test 12/17/17 02:15 12/17/17 03:42 12/17/17 03:44 12/17/17 04:29 Urine Color DK YELLOW Urine Appearance CLOUDY Urine pH 5.0 Urine Specific [place] 1.017 Urine Protein NEG Urine Glucose (UA) NEG Urine Ketones NEG Urine Occult Blood 1+ Urine Nitrite NEG Urine Bilirubin NEG Urine Urobilinogen NEG Urine Leukocyte Esterase TRACE Urine WBC (Auto) 1-5 /hpf Urine RBC (Auto) 0-4 /hpf Urine Hyaline Casts (Auto) 1-5 /lpf Urine Epithelial Cells (Auto) 5-10 /lpf Urine Bacteria (Auto) NEG Urine Crystals CALCIUM OXALATE Urine Yeast (Auto) BUDDING Bedside Blood Gas pH (LAB) 7.39 Bedside Blood Gas pCO2 (LAB) 34 mmHg Bedside Blood Gas pO2 (LAB) 85 mmHg Bedside Blood Gas HCO3 (LAB) 21 meq/L Bedside Blood Gas Total CO2 22 mEq/l Bedside Blood Gas Base Excess (LAB) -4.0 meq/L Bedside Blood Gas O2 Saturation 97.0 % Ammonia 32.0 umol/L Lactic Acid Level 2.0 mmol/L Test 12/17/17 07:30 12/17/17 11:30 Bedside Glucose 129 mg/dl 151 mg/dl Assessment and Plan 62-year-old male presented to the ER from [facility] with concern for sepsis was discharged marked facility not so long ago being treated with intravenous antibiotics with concern for infected fluid collection from recent spinal surgery. There was concern of fluid collection in the abdominal wall and also in the paraspinous areas. Given the complexity of his medical care at decision was made to treat medically and not to pursue aggressive intervention. 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 He is pancultured considerations could be the fluid collections that mentioned above or skin-related infection or urinary infection. He does not have any symptoms of SBP and his last hospital stay he did have his ascites evaluated and that was negative he does not have clinical signs or symptoms of significant ascites, Influenza negative - Chest x-ray with probable right middle infiltrate Renal insufficiency:- Creatinine at 1.9, baseline 1.2 concern for hepatorenal syndrome volume resuscitated and supporting blood pressure following levels Sarcoidosis: Has been given stress steroid coverage given he is on chronic prednisone 20 mg daily Type 2 diabetes - A1c 8.4 (Sep 2017) this will likely be worsened by steroid coverage will maintain insulin sliding scale watching for toxic side effects such as hypoglycemia Portal hypertension/alcoholic/sarcoidosis-induced cirrhosis Rifaximin and lactulose,propranolol have been restarted given his mental state for permits oral intake and his blood pressure have prevented propranolol we'll continue to hold his Lasix 40 mg daily and Spironolactone 100 mg Right Common Femoral DVT and Superficial Femoral Vein: Was previously on lovenox which has been held considering his decreased renal function therapeutic heparin drip has been started we'll be monitoring his CBC for toxic effects of platelet depression this will also serve as current DVT prevention I personally spent 10 minutes discussing this case with the pre press proofer on-call the ICU Full code
[2017-12-17] MEDS: OXYCODONE HCL IR 5 MG TAB (IMMEDIATE RELEASE) PO PRN ×2 (16:24→23:47)
[2017-12-17 19:28] LABS: PTT PATIENT 98.7 SECONDS (21.0-31.0)
[2017-12-17] MEDS: MICONAZOLE NITRATE POWDER 43 GM EXT SCH (20:20)
[2017-12-17] MEDS: LACTULOSE SYRUP 20 GM/30 ML UDC PO SCH (20:20)
[2017-12-17] MEDS: RIFAXIMIN TAB 550 MG TAB PO SCH (20:21)
[2017-12-17] MEDS ORDERED: MODERATE STRESS LEVEL ONE (21:30)
[2017-12-17] MEDS ORDERED: INSULIN PROTOCOL GOAL RANGE ONE (21:30)
[2017-12-17] MEDS ORDERED: INSULIN IV INFUSION PROTOCOL SCH (21:35)
[2017-12-17 21:41] LABS: INR 1.3 (0.9-1.1)
[2017-12-17 21:50] LABS: CALCIUM 7.9 mg/dl (8.5-10.1); CREATININE 1.59 mg/dl (0.60-1.40)
[2017-12-17] MEDS ORDERED: INSULIN REGULAR 250 UNITS in SODIUM CHLORIDE 0.9% 250ML 250 ML IV SCH (22:00)
[2017-12-17 22:52] LABS: HEMATOCRIT 16.4 % (42-52); HEMOGLOBIN 5.3 g/dL (14.0-18.0); MEAN CELL VOLUME 83.2 fL (80-100); MEAN CORPUSCULAR HEMOGLOBIN 26.9 pg (25-34); MEAN CORPUSCULAR HGB CONC 32.3 g/dl (32-36); PLATELET COUNT 64 K/uL (130-400); RED CELL DISTRIBUTION WIDTH CV 17.3 % (11.5-14.5); RED CELL DISTRIBUTION WIDTH SD 52.5 fL (36.4-46.3); WHITE BLOOD COUNT 1.15 K/uL (4.8-10.8)
[2017-12-17] MEDS ORDERED: SODIUM CHLORIDE 0.9% 1000ML 1,000 ML IV SCH (22:59)
--- NOTE | 2017-12-17 23:25 | Critical Care Progress Note ---
Critical Care Progress Note Date of Service Dec 17, 2017. Critical Care Progress Note I was approached by nursing staff at 2200 as they have had issues with the patient's PTT while on heparin drip. There was concerns regarding persistent levels. Because of this, I did discuss with pharmacy and the reason the patient was placed on heparin versus his daily Lovenox dosing was concerns for LETTY. Because of this, I did repeat PTT as well as CBC given the patient's elevated PTT. I was contacted by labs as the patient was found to have a significant drop in his H&H. A repeat or if her labs was obtained. The patient is now found to be essentially pancytopenic. His H&H is 5.3 and 16.4. Patient was reevaluated at this point. He is mentating well and appears clinically much better than his admission early this morning. He has no abdominal pain. His abdomen is soft and nontender to palpation. No point chest pain or back pain. He does complain of some chronic low back pain, but nothing acute at this point. CT of the abdomen and pelvis without contrast as well as CT the chest without contrast was obtained in the setting of a LETTY and need for evaluation of bleeding sources. Patient was typed and crossed and blood consent was obtained by hospitalist service. Coagulation panel including fibrin degradation product, fibrinogen, peripheral smear, PT/INR, plasminogen factor activator, and HIT panel were all ordered prior to starting blood products. CT ABDOMEN & PELVIS Without Contrast: (PER STATRAD) Comparison: 12/17/2017 at 05:41 AM impression: Increasing fluid collection seen within the left lateral abdominal wall/rectus sheath. This measures approximately 15 x 7 x 6.6 cm, previously measuring 10.7 x 4.5 cm. Findings may represent hematoma. However, this measures fluid density. Additional findings: Cirrhotic liver with mild edema and splenomegaly suggesting portal hypertension. Gallbladder is decompressed with mild thickening of the gallbladder wall. Pancreas and adrenal glands are unremarkable. Nonobstructing calculus within the left kidney. Noninflamed colonic diverticulosis. Appendix is not visualized. After receiving CT results, I did speak with the patient in great length and explained condition. I spoke with Dr. Rodriguez of Gen. surgery to is in agreement with transfer to tertiary care facility for acute blood loss anemia and rectus sheath hematoma for the possibility of need for IR and larger blood blank supply unavailable at this facility. I did discuss transfer with the patient who is in agreement. Transfer paperwork was filled out by myself as I was waiting for return call from [facility] transfer Center. After speaking with the transfer center, they initially declined transfer and suggested medical management (Dr. Mohan). At this point, the patient was actively being treated with PRBCs. I have personally spent 40 minutes of critical care time in the direct management of this patient. This is a life/limb threatening event. This includes time spent evaluating patient, direct bedside care, chart review, placing orders, interpretation of diagnostic studies, discussion with consultants, patient, and family members, as well as other required patient management activities. This time is exclusive of all separately billable procedures, and teaching time and separate from and in addition to any other critical care service time.
[2017-12-18] VITALS (57 sets, daily range): BP systolic 98–139; BP diastolic 52–85; PULSE 75–105; TEMP 36.7–37; O2SAT 84–100
[2017-12-18] MEDS ORDERED: NURSING VERBAL MED ORDER ONE ×3 (01:30→11:15)
[2017-12-18] MEDS ORDERED: FENTANYL CITRATE INJ 50 MCG/1 ML 2 ML VIAL IV ONE ×2 (01:45→04:45)
[2017-12-18] MEDS: AZTREONAM IV 2,000 MG in DEXTROSE 5% 100ML 100 ML IV SCH ×3 (02:24→17:36)
[2017-12-18 02:52] LABS: PTT PATIENT 51.6 SECONDS (21.0-31.0)
[2017-12-18] MEDS ORDERED: VANCOMYCIN INJ 1,250 MG in SODIUM CHLORIDE 0.9% 250ML 250 ML IV SCH (04:00)
[2017-12-18] MEDS: HYDROCORTISONE IV 100 MG in SYRINGE 0 ML IV SCH ×3 (04:35→19:58)
[2017-12-18] MEDS ORDERED: FENTANYL CITRATE INJ 50 MCG/1 ML 2 ML VIAL ONE (04:42)
[2017-12-18] MEDS: LEVALBUTEROL 1.25MG/0.5ML NEB INH PRN ×2 (04:59→21:28)
[2017-12-18] MEDS: IPRATROPIUM BROMIDE NEB SOLN 0.02% 2.5 ML VIAL INH PRN ×2 (04:59→21:28)
[2017-12-18 05:07] LABS: HEMATOCRIT 25.1 % (42-52); MEAN CELL VOLUME 84.2 fL (80-100); MEAN CORPUSCULAR HEMOGLOBIN 26.8 pg (25-34); MEAN CORPUSCULAR HGB CONC 31.9 g/dl (32-36); MEAN PLATELET VOLUME 8.8 fL (7.4-10.4); PLATELET COUNT 106 K/uL (130-400); RED CELL DISTRIBUTION WIDTH CV 16.6 % (11.5-14.5); RED CELL DISTRIBUTION WIDTH SD 50.9 fL (36.4-46.3); WHITE BLOOD COUNT 3.36 K/uL (4.8-10.8)
[2017-12-18 05:12] LABS: INR 1.2 (0.9-1.1); PTT PATIENT 39.8 SECONDS (21.0-31.0)
[2017-12-18 05:23] LABS: ALBUMIN 3.1 gm/dl (3.4-5.0); CALCIUM 8.1 mg/dl (8.5-10.1); CREATININE 1.42 mg/dl (0.60-1.40); POTASSIUM 3.8 mmol/L (3.5-5.1)
[2017-12-18 05:27] LABS: PHOSPHORUS 2.7 mg/dl (2.5-4.9); TOTAL PROTEIN 6.1 gm/dl (6.4-8.2)
[2017-12-18] MEDS ORDERED: FUROSEMIDE INJ 40 MG in SYRINGE 0 ML IV ONE (05:30)
[2017-12-18] MEDS ORDERED: FUROSEMIDE 40 MG/4 ML VIAL ONE (05:33)
--- NOTE | 2017-12-18 06:56 | DIAGNOSTIC IMAGING REPORT ---
CT OF THE ABDOMEN AND PELVIS WITHOUT CONTRAST, STONE PROTOCOL CLINICAL HISTORY: Acute blood loss - LETTY. COMPARISON STUDY: The abdomen and pelvis April or 09/07/2018 5:41 AM. TECHNIQUE: Helical axial images of the abdomen and pelvis were obtained without IV or oral contrast according to renal stone protocol. A dose lowering technique was utilized adhering to the principles of ALARA. FINDINGS: The chest CT will be reported separately. The liver is cirrhotic. Splenomegaly is unchanged. Moderate varices formation is noted. Sensitivity for detection of hepatic lesions is diminished on this unenhanced exam but none are identified. Mesenteric infiltration is likely due to portal hypertension. Unenhanced images of the adrenal glands, kidneys and pancreas are normal with exception of a 5 mm left renal calculus. There is no hydronephrosis. A fluid collection centered on the left lateral abdominal wall, located superficial and deep to the abdominal wall has increased in size since CT of December 09, 2017 at 5:46 AM. The largest component measures 13.7 x 5.6 cm. It previously measured 9.6 x 4.2 cm. This measures water attenuation. A small amount of abdominal and pelvic ascites is noted. This has slightly increased since prior CT. There is no evidence for a bowel obstruction. No pneumatosis, free air or portal venous gas is present. Postoperative findings within the left inguinal region are noted. Postoperative findings within the lumbar spine are suboptimally assessed by CT. L1, L3, L4 and L5 fractures are noted. Multilevel fusion is noted. IMPRESSION: 1. Increase in size of the multiloculated multicompartment fluid collection centered on the left lateral abdominal wall since CT performed earlier today. This measures water attenuation and therefore likely reflects ascites or seroma. This does not reflect an acute hematoma. 2. Cirrhosis with manifestations of portal hypertension including splenomegaly, varices and ascites formation. 3. No bowel obstruction. 4. No retroperitoneal hematoma. 5. Postoperative findings within the lumbar spine, suboptimally assessed by CT. Electronically signed by: Shayne Buchanan M.D. 12/18/2017 6:54 AM Dictated Date/Time: 12/18/2017 6:41 AM
--- NOTE | 2017-12-18 06:59 | DIAGNOSTIC IMAGING REPORT ---
LIMITED ABDOMINAL ULTRASOUND TO EVALUATE FOR HEMATOMA HISTORY: Evaluate possible left-sided abdominal hematoma. COMPARISON: CT of the abdomen and pelvis December 17, 2017 11:21 PM. FINDINGS: Note is made of a fluid collection centered on the left lateral abdominal wall which is been shown on several previous exams. This is located superficial and deep to the left lateral abdominal wall. The largest component measures 12.7 x 7.9 x 8.4 cm. There are several smaller components. This has low level internal echoes. This does not appear to represent hematoma by ultrasound. In addition, a small amount of abdominal ascites which contains low level echoes is noted within the peritoneal cavity. This may communicate with the ascites. IMPRESSION: Redemonstration of a multiloculated multicompartment fluid collection centered on the left lateral abdominal wall which has been shown on several previous imaging studies. The largest component measures 12.7 x 7.9 x 8.4 cm. This contains low level echoes as does ascites shown on this exam. This fluid collection could reflect ascites extending from the peritoneal cavity into the abdominal wall or a seroma. This does not reflect an acute hematoma. Discussed with Gui Esquivel at time of dictation. Electronically signed by: Shayne Buchanan M.D. 12/18/2017 6:58 AM Dictated Date/Time: 12/18/2017 6:54 AM
--- NOTE | 2017-12-18 07:29 | DIAGNOSTIC IMAGING REPORT ---
CT SCAN OF THE CHEST WITHOUT IV CONTRAST CLINICAL HISTORY: Anemia. Sepsis. COMPARISON STUDY: Chest CT dated 12/17/2017 and 08/02/2013. TECHNIQUE: CT scan of the thorax was performed from the thoracic inlet to the upper abdomen. Images are reviewed in the axial, sagittal, and coronal planes. IV contrast was not administered for this examination. A dose lowering technique was utilized adhering to the principles of ALARA. FINDINGS: Thyroid: Imaged portions of the thyroid gland are normal in size and attenuation. Thoracic aorta: The thoracic aorta is normal in caliber and demonstrates standard 3-vessel arch anatomy. Heart: The heart is enlarged and without pericardial effusion. The coronary arteries and aortic valve leaflets are densely calcified. There is diminished attenuation of the cardiac blood pool as compared to the myocardium suggesting anemia. Lungs and pleural spaces: There our trace pleural effusions, left larger than right with associated atelectasis. Chronic elevation of right hemidiaphragm is again noted. Atelectasis/scarring is present in the lower lobes. Numerous tiny calcified granulomas are identified. No airspace consolidation is seen typical for pneumonia. The trachea and central airways are clear. Mediastinum: There are numerous calcified mediastinal lymph nodes. Cynthia: There are numerous calcified hilar lymph nodes. Axillae: There is no axillary lymphadenopathy. Upper abdomen: Gynecomastia is observed. The liver is cirrhotic in morphology and heterogeneous in attenuation. The spleen is enlarged measuring over 16 cm in length. A tiny hiatal hernia is identified. Ascites is noted in the upper abdomen. The gallbladder appears contracted and thick walled. Skeletal structures: Skeletal structures are osteopenic. Degenerative change is noted throughout the thoracic spine. Arthritic change is seen in the shoulders. No lytic or blastic bony lesions are identified. IMPRESSION: 1. Cardiomegaly. 2. There are trace pleural effusions. 3. No airspace consolidation is seen typical for pneumonia. 4. Cirrhotic liver morphology with evidence of portal hypertension including ascites and splenomegaly. 5. Additional findings as above. Electronically signed by: Gianni Hewitt M.D. 12/18/2017 7:28 AM Dictated Date/Time: 12/18/2017 7:06 AM
--- NOTE | 2017-12-18 07:34 | DIAGNOSTIC IMAGING REPORT ---
CHEST ONE VIEW PORTABLE CLINICAL HISTORY: Shortness of breath. COMPARISON STUDY: Chest radiograph and chest CT December 17, 2017. FINDINGS: A trace right pleural effusion is noted. There is elevation of the right hemidiaphragm. Cardiomediastinal silhouette is stable. There is no evidence for pulmonary edema. There is no consolidation. IMPRESSION: 1. No change in appearance of the chest with a trace right pleural effusion. 2. Cardiomegaly without evidence of pulmonary edema. Electronically signed by: Shayne Buchanan M.D. 12/18/2017 7:32 AM Dictated Date/Time: 12/18/2017 7:32 AM
[2017-12-18] MEDS: INSULIN ASPART 100 UNITS/ML 3 ML PEN SC SCH ×5 (07:37→20:45)
--- NOTE | 2017-12-18 07:39 | Critical Care Progress Note ---
Critical Care Progress Note Date of Service Dec 18, 2017. Critical Care Progress Note This note reflects changes in patient care starting after 0000 on 12/18/2017: I received a return call from Dr. Mohan at 0115 and the transfer center at [facility] in regards to the patient. He did review the patient's record and questioned if he had an IVC filter placed previously. At this point, given the bleeding and patient's recent DVT, it was felt as though evaluation for IVC filter was warranted. At this point, the patient was accepted, however there are no ICU beds at [facility]. We will be contacted in the morning for changing beds, however if the patient's status clinically declines, certainly he'll be transferred to an alternate facility. Patient was updated with this information. He acknowledges understanding and agrees with treatment plan. I did ask if he wanted me to call his , but at this point, he reports that he would rather let her sleep. I did order an Ultrasound of the abdomen to assess for any active hemorrhage into the area of collection. US SOFT TISSUE: (PER STATRAD) Left lower quadrant superficial fluid collection measuring 10.1 x 2.7 x 2.0 cm as well as a left lateral abdominal wall collection measuring 12.7 x 8.4 x 7.9 cm. Mild debris noted within the fluid collections. Findings are concerning for seroma or resolving hematoma. Abscess is not excluded. No active hemorrhage identified. Minimal ascites noted within the left lower quadrant. Patient received a total of 2 units PRBCs and 2 units of platelets. The patient did have some increasing low back pain at approximately 0500. On evaluation, the patient is uncomfortable and complains of pain and his isolated low back without radiation of the pain. He denies any abdominal discomfort. His abdomen is soft and nontender to palpation. His pulse oximetry is in the high 80s/low 90s on room air. He did have coarse breath sounds with inspiratory wheezes noted to the LEFT lower lung field on exam. He is placed on his BiPAP and respiratory was contacted for breathing treatment. He was ordered 25 g fentanyl intravenously for pain. An EKG was obtained for completeness which demonstrated normal sinus rhythm and no acute changes otherwise. A chest x-ray was ordered and reviewed by myself. There appears to be worsening RIGHT lower lobe pleural effusion. On review the patient's record and in discussion, the patient reports that he previously had Lasix as needed for volume overload and shortness of breath. He rarely reports that his breathing is much better at this point and he never really had any significant shortness of breath as he usually always has shortness of breath. He was administered 40 mg IV Lasix on review his record he is 5 L positive in the setting of hepatic failure with likely progressive ascites. At this point, the patient has likely experienced acute septic syndrome from unknown etiology at this point. He was resuscitated with crystalloid with great volume expansion. He did have significant improvement with IV albumin which did help bring his blood pressure up into the low 100s. I suspect that the patient has had progression of his ascites and his abdomen and, subsequently , rectus sheath. While this certainly carries high suspicion for hematoma in the setting of acute blood loss, this is likely mixed as the patient has had significant ascites in the past. The chest x-ray demonstrates progression of an RIGHT-sided pleural effusion which is suspicious for hepatic hydrothorax. The patient's blood pressure did recover nicely with intravascular volume recovery with blood products which does make sense in the situation. I did speak with Dr. Morataya of general surgery and update him on current status as patient was unable to be transferred last evening. He agrees to evaluate the patient at bedside. I did speak with the patient's (Kaylee) at this request. She was updated with all information and questions were answered. I have personally spent 60 minutes of critical care time in the direct management of this patient. This is a life/limb threatening event. This includes time spent evaluating patient, direct bedside care, chart review, placing orders, interpretation of diagnostic studies, discussion with consultants, patient, and family members, as well as other required patient management activities. This time is exclusive of all separately billable procedures, and teaching time and separate from and in addition to any other critical care service time. Thank you for this consultation allow us to be part of this patient's care. Please refer to my attending physician's documentation for any further recommendations.
[2017-12-18 07:42] LABS: HEMOGLOBIN A1C 5.9 % (4.5-5.6)
[2017-12-18] MEDS ORDERED: ALBUTEROL 0.5% NEB SOLN 2.5 MG/0.5 ML VIAL INH PRN (08:00)
[2017-12-18] MEDS: MICONAZOLE NITRATE POWDER 43 GM EXT SCH ×2 (08:30→19:14)
[2017-12-18] MEDS: LACTULOSE SYRUP 20 GM/30 ML UDC PO SCH ×3 (08:30→20:01)
[2017-12-18] MEDS: RIFAXIMIN TAB 550 MG TAB PO SCH ×2 (08:30→19:58)
--- NOTE | 2017-12-18 08:30 | Surgery Consultation ---
Consultation Date of Consultation: Dec 18, 2017. Attending Physician: Darshan Cerda M.D. 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 yesterday he appeared to be more tired than usual but was still alert. He was recently admitted at [facility] in November 2017 for abdominal wall cellulitis. Last year, he had a surgery for herniated L4-L5 disc and had multiple complications after the surgery with epidural abscess, spinal infection, osteomyelitis, infection of the hardware and collapse of L4 for which she had multiple surgical interventions. I got a call from ICU for consult decrease H/H after started heparin drip, I saw pt at bedside, pt is alter and awake, pt said slightly LUQ pain, no nausea, no vomiting, last BM this morning. pt denies fever. Past Medical/Surgical History Medical Problems: (1) Altered mental status Status: Acute (2) Ascites Status: Acute (3) Cellulitis of left abdominal wall Status: Acute (4) Dvt femoral (deep venous thrombosis) Status: Acute (5) Fall in home Status: Acute (6) Fever Status: Acute (7) GI bleed Status: Acute (8) Hepatic encephalopathy Status: Acute (9) Hypokalemia Status: Acute (10) Hypotension Status: Acute (11) Hypotension Status: Acute (12) Hypoxia Status: Acute (13) Immunocompromised Status: Acute (14) Lactic acidosis Status: Acute (15) Left leg cellulitis Status: Acute (16) Lumbar compression fracture Status: Acute (17) Lumbar disc herniation with radiculopathy Status: Acute (18) Orthostasis Status: Acute (19) Pneumonia Status: Acute (20) Sepsis Status: Acute (21) Septic shock Status: Acute (22) Severe sepsis Status: Acute (23) Tenosynovitis, de Quervain Status: Acute (24) Vomiting Status: Acute Family History Patient reports no known family medical history. Social History Smoking Status: Never Smoker Smokeless Tobacco Use: No Alcohol Use: none Drug Use: none Marital Status: Housing Status: lives with family Occupation Status: retired Allergies Coded Allergies: Celecoxib (Verified Allergy, Intermediate, HIVES, 12/17/17) Penicillins (Verified Allergy, Intermediate, HIVES, 12/17/17) Home Medications Scheduled Atorvastatin (Lipitor), 10 MG PO q dinner Cyclosporine (Ophth) (Restasis), 1 DROP OPB Q12 Docusate Sodium (Docusate Sodium), 1 CAP PO BID Enoxaparin (Lovenox), 80 MG SQ Q12H Fluoxetine (Prozac), 40 MG PO QAM Furosemide (Lasix), 40 MG PO DAILY Insulin Aspart (Novolog Penfill), SC ACHS Insulin Glargine (Lantus Solostar), 25 UNITS SC BID Lactulose (Chronulac), 30 ML PO BID Levalbuterol (Levalbuterol HCl), 1.25 MG INH TID Miconazole Nitrate (Desenex Shake Powder), 1 APPLN EXT BID Pantoprazole (Protonix), 40 MG PO QAM Potassium Ext Rel (Klor-Con), 20 MEQ PO BIDM Prednisone (Prednisone), 20 MG PO QAM Propranolol (Inderal), 10 MG PO DAILY Rifaximin (Xifaxan), 550 MG PO Q12 Spironolactone (Aldactone), 100 MG PO [id number] Scheduled PRN Acetaminophen (Tylenol), 500 MG PO Q4H PRN for Pain Bisacodyl (Dulcolax), 1 SUPP ID DAILY PRN for Constipation Ipratropium-Albuterol (Duoneb), 1 TREATMENT INH Q4H PRN for Wheezing Magnesium Hydroxide (Milk Of Magnesia), 30 ML PO DAILY PRN for Constipation Ondansetron Hcl (Zofran), 4 MG PO Q4 PRN for Nausea Oxycodone/Acetaminophen 10MG/325MG (Oxycodone/Acetaminophen 10MG/325MG), 1 TAB PO Q4 PRN for pain 7-10 Oxycodone/Acetaminophen 5MG/325MG (Oxycodone/Acetaminophen 5MG/325MG), 1 TAB PO Q4 PRN for pain 4-6 Polyethylene Glycol 3350 (Miralax), 17 GM PO DAILYBL PRN for Constipation Senna (Senokot), 1 TAB PO q lunch PRN for Constipation Sodium Phosphate/Biphosphate (Fleet Enema), 1 EA ID DAILY PRN for Constipation Current Inpatient Medications Current Inpatient Medications Medications (Trade) Dose Ordered Sig/Nathalia Route Start Time Stop Time Status Last Admin Dose Admin Hydrocortisone Sodium Succinate 100 mg/Syringe 2 ml @ 4 mls/min Q8H IV 12/17/17 12:00 01/16/18 11:59 12/18/17 04:35 4 MLS/MIN Miscellaneous Information (Consult) 1 ea UD PRN N/A 12/17/17 03:45 01/16/18 03:44 Aztreonam 2000 mg/ Dextrose 110 ml @ 100 mls/hr Q8H IV 12/17/17 10:00 12/27/17 09:59 12/18/17 02:24 100 MLS/HR Norepinephrine Bitartrate 8 mg/ Dextrose 508 ml @ 0 mls/hr Q0M PRN IV 12/17/17 04:02 01/16/18 04:01 Pantoprazole Sodium 40 mg/ Syringe 10 ml @ 5 mls/min DAILY IV 12/17/17 09:00 01/16/18 08:59 12/17/17 09:01 5 MLS/MIN Levalbuterol (Xopenex 1.25MG/ 0.5ML Neb) 1.25 mg Q4H PRN INH 12/17/17 04:15 01/16/18 04:14 12/18/17 04:59 1.25 MG Ipratropium [place] (Atrovent 0.02% 0.5MG/2.5ML Neb) 0.5 mg Q4H PRN INH 12/17/17 04:15 01/16/18 04:14 12/18/17 04:59 0.5 MG Miscellaneous Information (Icu Protocol For Hyperglycemia) 1 ea PRN PRN N/A 12/17/17 04:15 12/19/17 04:14 Insulin Aspart (novoLOG ASPART) SLIDING SCALE G... ACHS SC 12/17/17 06:45 01/16/18 06:59 Future Hold 12/17/17 21:22 4 UNITS Glucose (Glucose 40% Gel) 15-30 GRAMS 15 GRAMS... UD PRN PO 12/17/17 05:45 01/16/18 05:44 Glucose (Glucose Chew Tab) 4-8 Tablets 4 Tabl... UD PRN PO 12/17/17 05:45 01/16/18 05:44 Dextrose (Dextrose 50% 50ML Syringe) 25-50ML OF 50% DW IV FOR... UD PRN IV 12/17/17 05:45 01/16/18 05:44 Glucagon (Glucagon Inj) 1 mg UD PRN SQ 12/17/17 05:45 01/16/18 05:44 Caspofungin 50 mg/ Sodium Chloride 260 ml @ 250 mls/hr DAILY IV 12/18/17 09:00 12/26/17 10:03 Lactulose (Chronulac Syrup) 20 gm BID PO 12/17/17 21:00 01/16/18 20:59 12/17/17 20:20 20 GM Miconazole Nitrate (Desenex Powder) 1 appln BID EXT 12/17/17 21:00 01/16/18 20:59 12/17/17 20:20 1 APPLN Propranolol HCl (Inderal Tab) 10 mg DAILY PO 12/18/17 09:00 01/17/18 08:59 Rifaximin (Xifaxan Tab) 550 mg Q12 PO 12/17/17 21:00 01/16/18 20:59 12/17/17 20:21 550 MG Vancomycin HCl 1250 mg/Sodium Chloride 275 ml @ 125 mls/hr Q24H IV 12/18/17 04:00 12/27/17 03:59 12/18/17 05:14 125 MLS/HR Oxycodone HCl (Roxicodone Immediate Rel Tab) 5 mg Q4 PRN PO 12/17/17 14:15 12/31/17 14:14 12/17/17 23:47 5 MG Insulin Aspart (novoLOG ASPART) SLIDING SCALE [facility] 12/18/17 08:00 01/17/18 07:59 Insulin Human Regular 250 units/ Sodium Chloride 252.5 ml @ 0 mls/hr Q24H IV 12/17/17 22:00 01/16/18 21:59 12/17/17 22:16 2 MLS/HR Sodium Chloride 1,000 ml @ 75 mls/hr [id number] IV 12/17/17 22:59 01/16/18 22:58 12/17/17 22:59 75 MLS/HR Albuterol Sulfate (Ventolin 0.5% 2.5MG/0.5ML Neb) 2.5 mg Q6R PRN INH 12/18/17 08:00 01/17/18 07:59 UNV Review of Systems Constitutional: No fever, No chills, No sweats, No weight loss, No weakness, No fatigue, No problem reported Eyes: No worsening of vision, No eye pain, No redness, No discharge, No diplopia, No problem reported ENT: No hearing loss, No unusual epistaxis, No nasal symptoms, No sore throat, No tinnitus, No dental problems, No trouble swallowing, No problem reported Respiratory: No cough, No sputum, No wheezing, No shortness of breath, No dyspnea on exertion, No dyspnea at rest, No hemoptysis, No problem reported Cardiovascular: No chest pain, No orthopnea, No PND, No edema, No claudication , No palpitations, No problem reported Abdomen: + pain Neurologic: No memory loss, No paralysis, No weakness, No numbness/tingling, No vertigo, No balance problems, No problem reported Psychiatric: No depression symptoms, No anhedonism, No anxiety, No insomnia, No substance abuse, No problem reported Endocrine: + fatigue Hematologic / Lymphatic: No abnormal bleeding/bruising, No clotting problems, No swollen lymph nodes, No night sweats, No problem reported Integumentary: No rash, No itch, No new/changing skin lesions, No color change , No bleeding, No problem reported Allergic / Immunologic: No environmental allergies, No seasonal allergies, No pet sensitivities, No food allergies, No hives, No frequent infections, No poor healing, No prolonged convalescence, No problem reported Physical Exam Date Time Temp Pulse Resp B/P (MAP) Pulse Ox O2 Delivery O2 Flow Rate FiO2 12/18/17 06:00 99 15 132/83 (99) 93 BiPAP 12/18/17 05:45 100 18 139/82 (101) 93 BiPAP 12/18/17 05:30 98 21 135/80 (98) 96 BiPAP 12/18/17 05:15 82 22 136/83 (100) 98 BiPAP 12/18/17 05:01 88 20 136/80 (98) 100 BiPAP 12/18/17 05:01 75 99 21 12/18/17 04:59 76 26 99 BiPAP/CPAP 12/18/17 04:49 100 25 132/78 (96) 96 Room Air 12/18/17 04:49 36.8 99 21 132/78 96 12/18/17 04:45 101 22 123/71 (88) 90 Room Air 12/18/17 04:30 98 14 124/76 (92) 95 Room Air 12/18/17 04:30 98 14 124/76 95 12/18/17 04:21 97 13 128/70 (89) 95 Room Air 12/18/17 04:21 36.8 91 16 128/70 95 12/18/17 04:15 97 15 122/71 (88) 95 Room Air 12/18/17 04:00 Room Air 12/18/17 04:00 36.8 98 18 121/73 (89) 97 Room Air 12/18/17 03:45 100 15 116/72 (87) 96 Room Air 12/18/17 03:41 36.8 98 16 117/66 99 12/18/17 03:39 99 16 117/66 (83) 96 Room Air 12/18/17 03:15 100 19 119/70 (86) 96 Room Air 12/18/17 03:15 100 19 119/70 96 12/18/17 03:00 97 15 114/72 (86) 99 Room Air 12/18/17 03:00 97 15 114/72 99 12/18/17 02:45 98 17 118/70 (86) 98 Room Air 12/18/17 02:45 36.8 98 17 118/70 98 12/18/17 02:35 36.7 99 16 114/73 98 12/18/17 02:34 99 14 114/73 (87) 99 Room Air 12/18/17 02:30 100 16 122/71 (88) 98 Room Air 12/18/17 02:25 105 18 102/59 (73) 84 Room Air 12/18/17 02:24 36.7 102 16 102/59 95 12/18/17 02:15 99 17 116/66 (83) 99 Room Air 12/18/17 02:09 36.8 100 18 116/67 100 12/18/17 02:09 99 16 116/67 (83) 99 Room Air 12/18/17 02:00 99 21 109/63 (78) 99 Room Air 12/18/17 01:57 98 14 114/66 (82) 99 Room Air 12/18/17 01:56 36.8 98 16 114/66 100 12/18/17 01:45 102 21 109/65 (80) 99 Room Air 12/18/17 01:30 100 102/58 (73) 99 Room Air 12/18/17 01:15 98 103/60 (74) 98 Room Air 12/18/17 01:00 98 103/61 (75) 100 Room Air 12/18/17 00:46 99 113/63 (80) 100 Room Air 12/18/17 00:46 36.7 99 18 113/63 100 12/18/17 00:33 97 98/60 (73) 98 Room Air 12/18/17 00:32 36.7 97 16 98/60 99 12/18/17 00:28 100 105/60 (75) 100 Room Air 12/18/17 00:01 Room Air 12/18/17 00:00 36.7 101 108/62 (77) 100 Room Air 12/17/17 23:28 102 112/68 (83) 100 Nasal Cannula 2.0 12/17/17 23:00 102 115/70 (85) 100 Nasal Cannula 2.0 12/17/17 22:59 106 22 113/67 (82) 100 Nasal Cannula 2.0 12/17/17 22:58 104 20 106/63 (77) 98 Nasal Cannula 2.0 12/17/17 22:03 100 100 21 12/17/17 22:00 100 16 109/64 (79) 100 Nasal Cannula 2.0 12/17/17 21:00 105 19 112/65 (81) 99 Nasal Cannula 2.0 12/17/17 20:00 102 104/60 (75) 100 12/17/17 20:00 Nasal Cannula 2.0 12/17/17 20:00 36.7 102 17 104/60 (75) 100 Nasal Cannula 2.0 12/17/17 19:00 102 18 97/53 (68) 100 Nasal Cannula 2.0 12/17/17 18:00 101 18 96/54 (68) 100 Nasal Cannula 2.0 12/17/17 17:10 101 18 101/59 (73) 100 Nasal Cannula 2.0 12/17/17 16:00 36.9 103 15 98/57 (71) 98 Nasal Cannula 2.0 12/17/17 16:00 Nasal Cannula 2.0 12/17/17 15:00 102 16 93/55 (68) 99 Nasal Cannula 2.0 12/17/17 14:00 104 17 105/57 (73) 100 Nasal Cannula 2.0 12/17/17 13:00 102 16 84/51 (62) 99 Nasal Cannula 2.0 12/17/17 12:30 100 18 97/53 (68) 99 Nasal Cannula 2.0 12/17/17 12:00 36.7 100 16 88/53 (65) 98 Nasal Cannula 2.0 12/17/17 12:00 Nasal Cannula 2.0 12/17/17 11:00 97 16 95/53 (67) 98 Nasal Cannula 2.0 12/17/17 10:00 97 20 92/55 (67) 95 Nasal Cannula 2.0 12/17/17 09:30 98 16 98/60 (73) 97 Nasal Cannula 2.0 12/17/17 09:13 93 18 88/50 (63) 99 Nasal Cannula 2.0 12/17/17 08:41 96 17 91/57 (68) 100 Nasal Cannula 2.0 General Appearance: WD/WN, no apparent distress Head: normocephalic Eyes: normal inspection ENT: normal ENT inspection Neck: supple, no JVD Respiratory/Chest: chest non-tender, lungs clear, normal breath sounds, no respiratory distress Cardiovascular: regular rate, rhythm, no edema, no gallop, no JVD, no murmur Abdomen/GI: normal bowel sounds, soft, no organomegaly, no pulsatile mass, + tenderness (slightly tenderness at LUQ, no rebound pain, no redness, one abdominal hernia at LLQ, soft, reducible, no skin color change. ) Extremities/Musculoskelatal: normal inspection, no calf tenderness, normal capillary refill Neurologic/Psych: no motor/sensory deficits, alert, normal mood/affect Skin: normal color, warm/dry, no rash Lymphatic: no adenopathy Laboratory Results Last 24 Hours Test 12/17/17 11:30 12/17/17 16:01 12/17/17 16:35 12/17/17 18:53 Bedside Glucose 151 mg/dl 231 mg/dl Activated Partial Thromboplast Time 204.0 SECONDS 98.7 SECONDS Partial Thromboplastin Ratio 7.8 3.8 Test 12/17/17 21:15 12/17/17 21:24 12/17/17 21:27 12/17/17 22:30 Bedside Glucose 216 mg/dl Sodium Level 137 mmol/L Potassium Level 4.0 mmol/L Chloride Level 107 mmol/L Carbon Dioxide Level 20 mmol/L Anion Gap 10.0 mmol/L Blood Urea Nitrogen 18 mg/dl Creatinine 1.59 mg/dl Est Creatinine Clear Calc Drug Dose 46.4 ml/min Estimated GFR () 52.4 Estimated GFR (Non- 45.2 BUN/Creatinine Ratio 11.5 Random Glucose 211 mg/dl Calcium Level 7.9 mg/dl Ammonia 22.2 umol/L Prothrombin Time 13.6 SECONDS Prothromb Time International Ratio 1.3 Stool Occult Blood POSITIVE Test 12/17/17 22:31 12/17/17 23:31 12/17/17 23:44 12/18/17 00:43 White Blood Count 1.15 K/uL Red Blood Count 1.97 M/uL Hemoglobin 5.3 g/dL Hematocrit 16.4 % Mean Corpuscular Volume 83.2 fL Mean Corpuscular Hemoglobin 26.9 pg Mean Corpuscular Hemoglobin Concent 32.3 g/dl Platelet Count 64 K/uL Mean Platelet Volume 9.0 fL RDW Standard Deviation 52.5 fL RDW Coefficient of Variation 17.3 % Neutrophils % (Manual) 92.8 % Lymphocytes % (Manual) 4.5 % Monocytes % (Manual) 2.7 % Neutrophils # (Manual) 1.07 K/uL Total Absolute Neutrophils 1.07 K/uL Lymphocytes # (Manual) 0.05 K/uL Total Absolute Lymphocytes 0.05 K/uL Monocytes # (Manual) 0.03 K/uL Toxic Granulation 1+ Platelet Estimate DECREASED Hypochromasia PRESENT Ovalocytes 1+ Echinocytes 1+ Bedside Glucose 216 mg/dl 194 mg/dl Fibrinogen 240 mg/dl Fibrin Degradation Products 10-40 mcg/ml Heparin-PF4 Antibody Screen NEG Test 12/18/17 01:45 12/18/17 02:20 12/18/17 02:36 12/18/17 03:47 Bedside Glucose 200 mg/dl 157 mg/dl 179 mg/dl Activated Partial Thromboplast Time 51.6 SECONDS Partial Thromboplastin Ratio 2.0 Test 1/29/18 04:49 12/18/17 05:05 12/18/17 06:15 White Blood Count 3.36 K/uL Red Blood Count 2.98 M/uL Hemoglobin 8.0 g/dL Hematocrit 25.1 % Mean Corpuscular Volume 84.2 fL Mean Corpuscular Hemoglobin 26.8 pg Mean Corpuscular Hemoglobin Concent 31.9 g/dl RDW Standard Deviation 50.9 fL RDW Coefficient of Variation 16.6 % Platelet Count 106 K/uL Mean Platelet Volume 8.8 fL Prothrombin Time 12.9 SECONDS Prothromb Time International Ratio 1.2 Activated Partial Thromboplast Time 39.8 SECONDS Partial Thromboplastin Ratio 1.5 Sodium Level 138 mmol/L Potassium Level 3.8 mmol/L Chloride Level 108 mmol/L Carbon Dioxide Level 20 mmol/L Anion Gap 10.0 mmol/L Blood Urea Nitrogen 18 mg/dl Creatinine 1.42 mg/dl Est Creatinine Clear Calc Drug Dose 52.0 ml/min Estimated GFR () 60.1 Estimated GFR (Non- 51.8 BUN/Creatinine Ratio 12.7 Random Glucose 166 mg/dl Estimated Average Glucose 123 mg/dl Hemoglobin A1c 5.9 % Calcium Level 8.1 mg/dl Phosphorus Level 2.7 mg/dl Magnesium Level 1.9 mg/dl Total Bilirubin 1.3 mg/dl Direct Bilirubin 0.7 mg/dl Aspartate Amino Transf (AST/SGOT) 26 U/L Alanine Aminotransferase (ALT/SGPT) 25 U/L Alkaline Phosphatase 187 U/L Pro-B-Type Natriuretic Peptide 1060 pg/ml Total Protein 6.1 gm/dl Albumin 3.1 gm/dl Lipase 218 U/L Bedside Glucose 157 mg/dl 166 mg/dl Assessment & Plan FINDINGS: Note is made of a fluid collection centered on the left lateral abdomen U/S -abdominal wall which is been shown on several previous exams. This is located superficial and deep to the left lateral abdominal wall. The largest component measures 12.7 x 7.9 x 8.4 cm. There are several smaller components. This has low level internal echoes. This does not appear to represent hematoma by ultrasound. In addition, a small amount of abdominal ascites which contains low level echoes is noted within the peritoneal cavity. This may communicate with the ascites. IMPRESSION: Redemonstration of a multiloculated multicompartment fluid collection centered on the left lateral abdominal wall which has been shown on several previous imaging studies. The largest component measures 12.7 x 7.9 x 8.4 cm. This contains low level echoes as does ascites shown on this exam. This fluid collection could reflect ascites extending from the peritoneal cavity into the abdominal wall or a seroma. This does not reflect an acute hematoma. Discussed with Gui Esquivel at time of dictation.CT scan IMPRESSION: 1. Increase in size of the multiloculated multicompartment fluid collection centered on the left lateral abdominal wall since CT performed earlier today. This measures water attenuation and therefore likely reflects ascites or seroma. This does not reflect an acute hematoma. 2. Cirrhosis with manifestations of portal hypertension including splenomegaly, varices and ascites formation. 3. No bowel obstruction. 4. No retroperitoneal hematoma. 5. Postoperative findings within the lumbar spine, suboptimally assessed by CT. 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 yesterday he appeared to be more tired than usual but was still alert. decrease H/H after started IV heparin drip, now H/H 07/14. 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 I recommend to transfer to higher level care thanks, please call me if any change.
[2017-12-18] MEDS: PANTOprazole INJ 40 MG in SYRINGE 0 ML IV SCH (08:34)
[2017-12-18] MEDS ORDERED: PROPRANOLOL HCL 10 MG TAB PO SCH (09:00)
[2017-12-18] MEDS ORDERED: CASPOFUNGIN INJ 50 MG in SODIUM CHLORIDE 0.9% 250ML 250 ML IV SCH (09:00)
[2017-12-18] MEDS ORDERED: HEPARIN 25,000 UNIT/500ML D5W 500 ML IV PRN (09:45)
--- NOTE | 2017-12-18 09:56 | ECHOCARDIOGRAM REPORT ---
*NOTICE TO RECEIVING [employer] This information is strictly Confidential and protected under [place] law. [place] law prohibits you from making any further disclosure of this information unless further disclosure is expressly permitted by the written consent of the person to whom it pertains or is authorized by law. A general authorization for the release of medical or other information is not sufficient for this purpose. Hospital accepts no responsibility if the information is made available to any other person, INCLUDING THE PATIENT. Interpretation Summary * Name: ALEXIS FENG JR Study Date: 12/18/2017 07:35 AM BP: 132/83 mmHg * [facility] HR: 100 * : 1955 (M/d/yyyy) Gender: Male Height: 65 in * Age: 62 yrs Ethnicity: CA Weight: 182 lb * Ordering Physician: Fabio Hernández * Referring Physician: David Romeo * Performed By: Brenda Delgado RCS * * Reason For Study: MURMUR * BSA: 1.9 m2 * -- Conclusions -- * There is mild concentric left ventricular hypertrophy. * Left ventricular systolic function is normal. * The left atrium is moderately dilated. * The right atrium is mildly dilated. * Mild valvular aortic stenosis. * There is mild to moderate mitral regurgitation. * Right ventricular systolic pressure is elevated at 30-40mmHg. * Compared to an echocardiogram from July 2017, the degree of mitral regurgitation and aortic stenosis appears slightly worse, otherwise minimal difference Procedure Details * A complete two-dimensional transthoracic echocardiogram was performed (2D, M-mode, Doppler and color flow Doppler). * There were technical limitations due to patient'spoor positioning Left Ventricle * The left ventricle is normal in size. * There is mild concentric left ventricular hypertrophy. * Left ventricular systolic function is normal. * Ejection Fraction = 60-65%. * The left ventricular wall motion is normal. Right Ventricle * The right ventricle is normal in size and function. Atria * The left atrium is moderately dilated. * The right atrium is mildly dilated. Mitral Valve * The mitral valve is grossly normal. * There is mild to moderate mitral regurgitation. Tricuspid Valve * The tricuspid valve is not well visualized, but is grossly normal. * There is mild tricuspid regurgitation. * Right ventricular systolic pressure is elevated at 30-40mmHg. Aortic Valve * The aortic valve is not well visualized. * Mild valvular aortic stenosis. * Trace aortic regurgitation. Great Vessels * The aortic root is normal size. Pericardium/Pleural * There is no pericardial effusion. MMode 2D Measurements and Calculations IVSd 2.0 cm IVSs 2.4 cm LVIDd 3.1 cm LVIDs 2.2 cm LVPWd 1.7 cm LVPWs 1.8 cm IVS/LVPW 1.2 FS 27.4 % EDV(Teich) 37.3 ml ESV(Teich) 16.9 ml EF(Teich) 54.7 % EDV(cubed) 29.2 ml ESV(cubed) 11.2 ml EF(cubed) 61.7 % % IVS thick 19.7 % % LVPW thick 8.1 % LV mass(C)d 231.1 grams LV mass(C)dI 121.6 grams/m\S\2 LV mass(C)s 212.0 grams LV mass(C)sI 111.6 grams/m\S\2 SV(Teich) 20.4 ml SI(Teich) 10.7 ml/m\S\2 SV(cubed) 18.0 ml SI(cubed) 9.5 ml/m\S\2 Ao root diam 3.2 cm Ao root area 7.8 cm\S\2 ACS 1.2 cm LA dimension 4.7 cm LA/Ao 1.5 LVOT diam 2.0 cm LVOT area 3.2 cm\S\2 LVAd ap4 40.7 cm\S\2 LVLd ap4 8.0 cm EDV(MOD-sp4) 158.2 ml EDV(sp4-el) 176.5 ml LVAs ap4 23.7 cm\S\2 LVLs ap4 6.6 cm ESV(MOD-sp4) 70.2 ml ESV(sp4-el) 72.1 ml EF(MOD-sp4) 55.7 % EF(sp4-el) 59.2 % LVAd ap2 37.5 cm\S\2 LVLd ap2 8.7 cm EDV(MOD-sp2) 129.7 ml EDV(sp2-el) 137.9 ml LVAs ap2 24.2 cm\S\2 LVLs ap2 7.3 cm ESV(MOD-sp2) 67.0 ml ESV(sp2-el) 67.9 ml EF(MOD-sp2) 48.4 % EF(sp2-el) 50.8 % LVLd %diff 8.2 % EDV(MOD-bp) 147.3 ml LVLs %diff 9.9 % ESV(MOD-bp) 72.3 ml EF(MOD-bp) 50.9 % SV(MOD-sp4) 88.1 ml SI(MOD-sp4) 46.3 ml/m\S\2 SV(MOD-sp2) 62.8 ml SI(MOD-sp2) 33.0 ml/m\S\2 SV(MOD-bp) 75.0 ml SI(MOD-bp) 39.5 ml/m\S\2 SV(sp4-el) 104.5 ml SI(sp4-el) 55.0 ml/m\S\2 SV(sp2-el) 70.0 ml SI(sp2-el) 36.8 ml/m\S\2 Doppler Measurements and Calculations MV E max garrett 137.5 cm/sec MV P1/2t max garrett 174.6 cm/sec MV P1/2t 61.5 msec MVA(P1/2t) 3.6 cm\S\2 MV dec slope 832.1 cm/sec\S\2 MV dec time 0.16 sec Ao V2 max 290.8 cm/sec Ao max PG 33.8 mmHg Ao max PG (full) 27.5 mmHg LOLA(V,A) 1.4 cm\S\2 LOLA(V,D) 1.4 cm\S\2 LV V1 max PG 6.3 mmHg LV V1 max 125.8 cm/sec MR max garrett 572.0 cm/sec MR max PG 130.9 mmHg PA V2 max 124.6 cm/sec PA max PG 6.2 mmHg TR max garrett 285.5 cm/sec
--- NOTE | 2017-12-18 09:59 | Critical Care Progress Note ---
Critical Care Progress Note Date of Service Dec 18, 2017. ICU Day ICU Day Number: [address] Hernández Subjective Generally tired, however, feels improved from yesterday. Overnight he received 2 units packed red blood cells 2 units of platelets Objective SHAREPOINT SPECIALIST/Neuro: AAOx 3, Pupils: Equal round reactive, Focal Signs: None Sedation/pain control: Oxycodone 5 mg PO q4 prn EEG/CT/MRI: NA Restraints: NA Neurologic prophylaxis: NA Respiratory: Rhonchi bilaterally Vent Settings NA Chest x-ray: Trace right pleural effusion, elevation of the right hemidiaphragm I reviewed the chest x-ray as well as report dated November 272017 HOB up 30 degrees: y Chlorhexidine: NA Respiratory prophylaxis: Nebulizers when necessary Cardiovascular: S1-S2 regular rate and rhythm CV drips: NA Rhythm: Normal sinus EKG: Reviewed EKG dated 12/18/2017 no change comparison to prior. ECHO: Pending Fluids/Renal: IV Fluids: Not applicable Net Urine: 0.78 mL per kilo per hour Verma: Present GI/Nutrition: 2 fluid collections in the left lateral aspect of the abdomen, mild tenderness to palpation Feeding: Regular diet Prophylaxis: Not applicable Endocrine: Last 24 hour glucose: 200-166 Insulin protocol: Y; Drip: Sliding scale coverage Hematology: No bruising no Sunshine Miller sign Skin/MSK: No evidence of skin breakdown Infectious Disease/Immunology: Tmax: Febrile last 24 hours CVL (date): 12/18/17 Antimicrobials: Vancomycin day 2/? Aztreonam day 2/? Caspofungin day 2/? Cultures: Blood: No growth to date Urine: Or pending Respiratory: Not applicable CSF: Not Applicable Immunosuppressive labs: Not applicable Assessment & Plan Reason Critically Ill: Hypotension from unclear etiology, relative immunosuppressed and given long-term chronic steroid use, acute anemia PLAN: Neuro: Pain well-controlled Hepatic encephalopathy * Improved with the administration of lactulose * Report that the patient becomes altered with an ammonia level into the 30s Resp: Sarcoidosis * Long-term steroid use CV: Hypotension * Resolved Fluids/Renal: Discontinue normal saline Acute kidney injury * Improved * Maintain Verma through today to the monitor output given acute kidney injury and hypotension ID: History of multiple abscesses as well as fungal infections * Sent fungal blood culture * Continue current antibiotics * Possible source could be seroma, it is increasing in size to the largest is severed been and is now having pain. * There does appear to be debris in the seroma, I have consult to general surgery who recommends transfer to higher level care for further evaluation of this possible source of infection GI/Nutrition: Hepatic insufficiency/cirrhosis * Mental status improved with lactulose Heme: Acute anemia * Unclear etiology at this point * CT scan of the abdomen did not reveal acute bleeding * He is not having large bloody stools Known right common femoral DVT * Will restart low intensity heparin at this point and continue to follow for bleeding * Patient had been evaluated for possible IVC filter previously * Will defer IVC filter is patient will be transferred to higher level of care Endocrine: Hyperglycemia * On insulin infusion * ADA diet with carb counting * Stress dose hydrocortisone * An extensive discussion with the patient regarding goals care. He reported that he wanted to follow his own diet because been eating whatever he wants for the past 15 years. We emphasized glycemic control to help preclude infections. His goals for care include being able to regain his ability to walk and hopefully be transferred back to [facility]. We discussed the need for further evaluation for possible infection which is been a chronic problem for him. He understands we are attempting transfer to [facility] for further evaluation and management and is agreeable with this. I have personally spent 90 minutes of critical care time in the direct management of this patient. This is a life/limb threatening event. This includes time spent evaluating patient, direct bedside care, chart review, placing orders, interpretation of diagnostic studies, discussion with consultants, patient, and/or family members regarding treatment decisions, as well as other required patient management activities. This time is exclusive of all separately billable procedures, and teaching time and separate from and in addition to any other critical care service time. Data Medications: Current Inpatient Medications Medications (Trade) Dose Ordered Sig/Nathalia Route Start Time Stop Time Status Last Admin Dose Admin Hydrocortisone Sodium Succinate 100 mg/Syringe 2 ml @ 4 mls/min Q8H IV 12/17/17 12:00 01/16/18 11:59 12/18/17 04:35 4 MLS/MIN Miscellaneous Information (Consult) 1 ea UD PRN N/A 12/17/17 03:45 01/16/18 03:44 Aztreonam 2000 mg/ Dextrose 110 ml @ 100 mls/hr Q8H IV 12/17/17 10:00 12/27/17 09:59 12/18/17 02:24 100 MLS/HR Norepinephrine Bitartrate 8 mg/ Dextrose 508 ml @ 0 mls/hr Q0M PRN IV 12/17/17 04:02 01/16/18 04:01 Pantoprazole Sodium 40 mg/ Syringe 10 ml @ 5 mls/min DAILY IV 12/17/17 09:00 01/16/18 08:59 12/17/17 09:01 5 MLS/MIN Levalbuterol (Xopenex 1.25MG/ 0.5ML Neb) 1.25 mg Q4H PRN INH 12/17/17 04:15 01/16/18 04:14 12/18/17 04:59 1.25 MG Ipratropium [place] (Atrovent 0.02% 0.5MG/2.5ML Neb) 0.5 mg Q4H PRN INH 12/17/17 04:15 01/16/18 04:14 12/18/17 04:59 0.5 MG Miscellaneous Information (Icu Protocol For Hyperglycemia) 1 ea PRN PRN N/A 12/17/17 04:15 12/19/17 04:14 Insulin Aspart (novoLOG ASPART) SLIDING SCALE G... ACHS SC 12/17/17 06:45 01/16/18 06:59 Future Hold 12/17/17 21:22 4 UNITS Glucose (Glucose 40% Gel) 15-30 GRAMS 15 GRAMS... UD PRN PO 12/17/17 05:45 01/16/18 05:44 Glucose (Glucose Chew Tab) 4-8 Tablets 4 Tabl... UD PRN PO 12/17/17 05:45 01/16/18 05:44 Dextrose (Dextrose 50% 50ML Syringe) 25-50ML OF 50% DW IV FOR... UD PRN IV 12/17/17 05:45 01/16/18 05:44 Glucagon (Glucagon Inj) 1 mg UD PRN SQ 12/17/17 05:45 01/16/18 05:44 Caspofungin 50 mg/ Sodium Chloride 260 ml @ 250 mls/hr DAILY IV 12/18/17 09:00 12/26/17 10:03 Lactulose (Chronulac Syrup) 20 gm BID PO 12/17/17 21:00 01/16/18 20:59 12/17/17 20:20 20 GM Miconazole Nitrate (Desenex Powder) 1 appln BID EXT 12/17/17 21:00 01/16/18 20:59 12/17/17 20:20 1 APPLN Propranolol HCl (Inderal Tab) 10 mg DAILY PO 12/18/17 09:00 01/17/18 08:59 Rifaximin (Xifaxan Tab) 550 mg Q12 PO 12/17/17 21:00 01/16/18 20:59 12/17/17 20:21 550 MG Vancomycin HCl 1250 mg/Sodium Chloride 275 ml @ 125 mls/hr Q24H IV 12/18/17 04:00 12/27/17 03:59 12/18/17 05:14 125 MLS/HR Oxycodone HCl (Roxicodone Immediate Rel Tab) 5 mg Q4 PRN PO 12/17/17 14:15 12/31/17 14:14 12/17/17 23:47 5 MG Insulin Aspart (novoLOG ASPART) SLIDING SCALE PCHS SC 12/18/17 08:00 01/17/18 07:59 Insulin Human Regular 250 units/ Sodium Chloride 252.5 ml @ 0 mls/hr Q24H IV 12/17/17 22:00 01/16/18 21:59 12/17/17 22:16 2 MLS/HR Sodium Chloride 1,000 ml @ 75 mls/hr [id number] IV 12/17/17 22:59 01/16/18 22:58 12/17/17 22:59 75 MLS/HR Vital Signs: Date Time Temp Pulse Resp B/P (MAP) Pulse Ox O2 Delivery O2 Flow Rate FiO2 12/18/17 06:00 99 15 132/83 (99) 93 BiPAP 12/18/17 05:45 100 18 139/82 (101) 93 BiPAP 12/18/17 05:30 98 21 135/80 (98) 96 BiPAP 12/18/17 05:15 82 22 136/83 (100) 98 BiPAP 12/18/17 05:01 88 20 136/80 (98) 100 BiPAP 12/18/17 05:01 75 99 21 12/18/17 04:59 76 26 99 BiPAP/CPAP 12/18/17 04:49 100 25 132/78 (96) 96 Room Air 12/18/17 04:49 36.8 99 21 132/78 96 12/18/17 04:45 101 22 123/71 (88) 90 Room Air 12/18/17 04:30 98 14 124/76 (92) 95 Room Air 12/18/17 04:30 98 14 124/76 95 12/18/17 04:21 97 13 128/70 (89) 95 Room Air 12/18/17 04:21 36.8 91 16 128/70 95 12/18/17 04:15 97 15 122/71 (88) 95 Room Air 12/18/17 04:00 Room Air 12/18/17 04:00 36.8 98 18 121/73 (89) 97 Room Air 12/18/17 03:45 100 15 116/72 (87) 96 Room Air 12/18/17 03:41 36.8 98 16 117/66 99 12/18/17 03:39 99 16 117/66 (83) 96 Room Air 12/18/17 03:15 100 19 119/70 (86) 96 Room Air 12/18/17 03:15 100 19 119/70 96 12/18/17 03:00 97 15 114/72 (86) 99 Room Air 12/18/17 03:00 97 15 114/72 99 12/18/17 02:45 98 17 118/70 (86) 98 Room Air 12/18/17 02:45 36.8 98 17 118/70 98 12/18/17 02:35 36.7 99 16 114/73 98 12/18/17 02:34 99 14 114/73 (87) 99 Room Air 12/18/17 02:30 100 16 122/71 (88) 98 Room Air 12/18/17 02:25 105 18 102/59 (73) 84 Room Air 12/18/17 02:24 36.7 102 16 102/59 95 12/18/17 02:15 99 17 116/66 (83) 99 Room Air 12/18/17 02:09 36.8 100 18 116/67 100 12/18/17 02:09 99 16 116/67 (83) 99 Room Air 12/18/17 02:00 99 21 109/63 (78) 99 Room Air 12/18/17 01:57 98 14 114/66 (82) 99 Room Air 12/18/17 01:56 36.8 98 16 114/66 100 12/18/17 01:45 102 21 109/65 (80) 99 Room Air 12/18/17 01:30 100 102/58 (73) 99 Room Air 12/18/17 01:15 98 103/60 (74) 98 Room Air 12/18/17 01:00 98 103/61 (75) 100 Room Air 12/18/17 00:46 99 113/63 (80) 100 Room Air 12/18/17 00:46 36.7 99 18 113/63 100 12/18/17 00:33 97 98/60 (73) 98 Room Air 12/18/17 00:32 36.7 97 16 98/60 99 12/18/17 00:28 100 105/60 (75) 100 Room Air 12/18/17 00:01 Room Air 12/18/17 00:00 36.7 101 108/62 (77) 100 Room Air 12/17/17 23:28 102 112/68 (83) 100 Nasal Cannula 2.0 12/17/17 23:00 102 115/70 (85) 100 Nasal Cannula 2.0 12/17/17 22:59 106 22 113/67 (82) 100 Nasal Cannula 2.0 12/17/17 22:58 104 20 106/63 (77) 98 Nasal Cannula 2.0 12/17/17 22:03 100 100 21 12/17/17 22:00 100 16 109/64 (79) 100 Nasal Cannula 2.0 12/17/17 21:00 105 19 112/65 (81) 99 Nasal Cannula 2.0 12/17/17 20:00 102 104/60 (75) 100 12/17/17 20:00 Nasal Cannula 2.0 12/17/17 20:00 36.7 102 17 104/60 (75) 100 Nasal Cannula 2.0 12/17/17 19:00 102 18 97/53 (68) 100 Nasal Cannula 2.0 12/17/17 18:00 101 18 96/54 (68) 100 Nasal Cannula 2.0 12/17/17 17:10 101 18 101/59 (73) 100 Nasal Cannula 2.0 1/28/18 16:00 36.9 103 15 98/57 (71) 98 Nasal Cannula 2.0 12/17/17 16:00 Nasal Cannula 2.0 12/17/17 15:00 102 16 93/55 (68) 99 Nasal Cannula 2.0 12/17/17 14:00 104 17 105/57 (73) 100 Nasal Cannula 2.0 12/17/17 13:00 102 16 84/51 (62) 99 Nasal Cannula 2.0 12/17/17 12:30 100 18 97/53 (68) 99 Nasal Cannula 2.0 12/17/17 12:00 36.7 100 16 88/53 (65) 98 Nasal Cannula 2.0 12/17/17 12:00 Nasal Cannula 2.0 12/17/17 11:00 97 16 95/53 (67) 98 Nasal Cannula 2.0 12/17/17 10:00 97 20 92/55 (67) 95 Nasal Cannula 2.0 12/17/17 09:30 98 16 98/60 (73) 97 Nasal Cannula 2.0 12/17/17 09:13 93 18 88/50 (63) 99 Nasal Cannula 2.0 12/17/17 08:41 96 17 91/57 (68) 100 Nasal Cannula 2.0 12/17/17 08:00 36.8 98 17 101/54 (70) 99 Nasal Cannula 2.0 12/17/17 08:00 Nasal Cannula 2.0 Laboratory Results: Last 24 Hours Test 12/17/17 11:30 12/17/17 16:01 12/17/17 16:35 12/17/17 18:53 Bedside Glucose 151 mg/dl 231 mg/dl Activated Partial Thromboplast Time 204.0 SECONDS 98.7 SECONDS Partial Thromboplastin Ratio 7.8 3.8 Test 12/17/17 21:15 12/17/17 21:24 12/17/17 21:27 12/17/17 22:30 Bedside Glucose 216 mg/dl Sodium Level 137 mmol/L Potassium Level 4.0 mmol/L Chloride Level 107 mmol/L Carbon Dioxide Level 20 mmol/L Anion Gap 10.0 mmol/L Blood Urea Nitrogen 18 mg/dl Creatinine 1.59 mg/dl Est Creatinine Clear Calc Drug Dose 46.4 ml/min Estimated GFR () 52.4 Estimated GFR (Non- 45.2 BUN/Creatinine Ratio 11.5 Random Glucose 211 mg/dl Calcium Level 7.9 mg/dl Ammonia 22.2 umol/L Prothrombin Time 13.6 SECONDS Prothromb Time International Ratio 1.3 Stool Occult Blood POSITIVE Test 12/17/17 22:31 12/17/17 23:31 12/17/17 23:44 12/18/17 00:43 White Blood Count 1.15 K/uL Red Blood Count 1.97 M/uL Hemoglobin 5.3 g/dL Hematocrit 16.4 % Mean Corpuscular Volume 83.2 fL Mean Corpuscular Hemoglobin 26.9 pg Mean Corpuscular Hemoglobin Concent 32.3 g/dl Platelet Count 64 K/uL Mean Platelet Volume 9.0 fL RDW Standard Deviation 52.5 fL RDW Coefficient of Variation 17.3 % Neutrophils % (Manual) 92.8 % Lymphocytes % (Manual) 4.5 % Monocytes % (Manual) 2.7 % Neutrophils # (Manual) 1.07 K/uL Total Absolute Neutrophils 1.07 K/uL Lymphocytes # (Manual) 0.05 K/uL Total Absolute Lymphocytes 0.05 K/uL Monocytes # (Manual) 0.03 K/uL Toxic Granulation 1+ Platelet Estimate DECREASED Hypochromasia PRESENT Ovalocytes 1+ Echinocytes 1+ Bedside Glucose 216 mg/dl 194 mg/dl Fibrinogen 240 mg/dl Fibrin Degradation Products 10-40 mcg/ml Heparin-PF4 Antibody Screen NEG Test 12/18/17 01:45 12/18/17 02:20 12/18/17 02:36 12/18/17 03:47 Bedside Glucose 200 mg/dl 157 mg/dl 179 mg/dl Activated Partial Thromboplast Time 51.6 SECONDS Partial Thromboplastin Ratio 2.0 Test 12/18/17 04:49 12/18/17 05:05 12/18/17 06:15 White Blood Count 3.36 K/uL Red Blood Count 2.98 M/uL Hemoglobin 8.0 g/dL Hematocrit 25.1 % Mean Corpuscular Volume 84.2 fL Mean Corpuscular Hemoglobin 26.8 pg Mean Corpuscular Hemoglobin Concent 31.9 g/dl RDW Standard Deviation 50.9 fL RDW Coefficient of Variation 16.6 % Platelet Count 106 K/uL Mean Platelet Volume 8.8 fL Prothrombin Time 12.9 SECONDS Prothromb Time International Ratio 1.2 Activated Partial Thromboplast Time 39.8 SECONDS Partial Thromboplastin Ratio 1.5 Sodium Level 138 mmol/L Potassium Level 3.8 mmol/L Chloride Level 108 mmol/L Carbon Dioxide Level 20 mmol/L Anion Gap 10.0 mmol/L Blood Urea Nitrogen 18 mg/dl Creatinine 1.42 mg/dl Est Creatinine Clear Calc Drug Dose 52.0 ml/min Estimated GFR () 60.1 Estimated GFR (Non- 51.8 BUN/Creatinine Ratio 12.7 Random Glucose 166 mg/dl Estimated Average Glucose 123 mg/dl Hemoglobin A1c 5.9 % Calcium Level 8.1 mg/dl Phosphorus Level 2.7 mg/dl Magnesium Level 1.9 mg/dl Total Bilirubin 1.3 mg/dl Direct Bilirubin 0.7 mg/dl Aspartate Amino Transf (AST/SGOT) 26 U/L Alanine Aminotransferase (ALT/SGPT) 25 U/L Alkaline Phosphatase 187 U/L Pro-B-Type Natriuretic Peptide 1060 pg/ml Total Protein 6.1 gm/dl Albumin 3.1 gm/dl Lipase 218 U/L Bedside Glucose 157 mg/dl 166 mg/dl
--- NOTE | 2017-12-18 10:04 | Progress Note ---
Subjective Date of Service: Dec 18, 2017. Problem List Medical Problems: (1) Altered mental status Status: Acute (2) Ascites Status: Acute (3) Cellulitis of left abdominal wall Status: Acute (4) Dvt femoral (deep venous thrombosis) Status: Acute (5) Fall in home Status: Acute (6) Fever Status: Acute (7) GI bleed Status: Acute (8) Hepatic encephalopathy Status: Acute (9) Hypokalemia Status: Acute (10) Hypotension Status: Acute (11) Hypotension Status: Acute (12) Hypoxia Status: Acute (13) Immunocompromised Status: Acute (14) Lactic acidosis Status: Acute (15) Left leg cellulitis Status: Acute (16) Lumbar compression fracture Status: Acute (17) Lumbar disc herniation with radiculopathy Status: Acute (18) Orthostasis Status: Acute (19) Pneumonia Status: Acute (20) Sepsis Status: Acute (21) Septic shock Status: Acute (22) Severe sepsis Status: Acute (23) Tenosynovitis, de Quervain Status: Acute (24) Vomiting Status: Acute Objective Vital Signs Date Time Temp Pulse Resp B/P (MAP) Pulse Ox O2 Delivery O2 Flow Rate FiO2 12/18/17 08:31 103 27 105/56 (72) 98 Nasal Cannula 2.0 12/18/17 08:00 Nasal Cannula 2.0 12/18/17 08:00 36.8 101 25 125/70 (88) 99 Nasal Cannula 2.0 12/18/17 07:45 99 23 123/70 (87) 98 Nasal Cannula 2.0 12/18/17 07:30 96 17 133/85 (101) 100 BiPAP 12/18/17 07:15 95 15 130/79 (96) 96 BiPAP 12/18/17 07:00 97 13 130/70 (90) 96 BiPAP 12/18/17 06:00 99 15 132/83 (99) 93 BiPAP 12/18/17 05:45 100 18 139/82 (101) 93 BiPAP 12/18/17 05:30 98 21 135/80 (98) 96 BiPAP 12/18/17 05:15 82 22 136/83 (100) 98 BiPAP 12/18/17 05:01 88 20 136/80 (98) 100 BiPAP 12/18/17 05:01 75 99 21 12/18/17 04:59 76 26 99 BiPAP/CPAP 12/18/17 04:49 100 25 132/78 (96) 96 Room Air 12/18/17 04:49 36.8 99 21 132/78 96 12/18/17 04:45 101 22 123/71 (88) 90 Room Air 12/18/17 04:30 98 14 124/76 (92) 95 Room Air 12/18/17 04:30 98 14 124/76 95 12/18/17 04:21 97 13 128/70 (89) 95 Room Air 12/18/17 04:21 36.8 91 16 128/70 95 12/18/17 04:15 97 15 122/71 (88) 95 Room Air 12/18/17 04:00 Room Air 12/18/17 04:00 36.8 98 18 121/73 (89) 97 Room Air 12/18/17 03:45 100 15 116/72 (87) 96 Room Air 12/18/17 03:41 36.8 98 16 117/66 99 12/18/17 03:39 99 16 117/66 (83) 96 Room Air 12/18/17 03:15 100 19 119/70 (86) 96 Room Air 12/18/17 03:15 100 19 119/70 96 12/18/17 03:00 97 15 114/72 (86) 99 Room Air 12/18/17 03:00 97 15 114/72 99 12/18/17 02:45 98 17 118/70 (86) 98 Room Air 12/18/17 02:45 36.8 98 17 118/70 98 12/18/17 02:35 36.7 99 16 114/73 98 12/18/17 02:34 99 14 114/73 (87) 99 Room Air 12/18/17 02:30 100 16 122/71 (88) 98 Room Air 12/18/17 02:25 105 18 102/59 (73) 84 Room Air 12/18/17 02:24 36.7 102 16 102/59 95 12/18/17 02:15 99 17 116/66 (83) 99 Room Air 12/18/17 02:09 36.8 100 18 116/67 100 12/18/17 02:09 99 16 116/67 (83) 99 Room Air 12/18/17 02:00 99 21 109/63 (78) 99 Room Air 12/18/17 01:57 98 14 114/66 (82) 99 Room Air 12/18/17 01:56 36.8 98 16 114/66 100 12/18/17 01:45 102 21 109/65 (80) 99 Room Air 12/18/17 01:30 100 102/58 (73) 99 Room Air 12/18/17 01:15 98 103/60 (74) 98 Room Air 12/18/17 01:00 98 103/61 (75) 100 Room Air 12/18/17 00:46 99 113/63 (80) 100 Room Air 12/18/17 00:46 36.7 99 18 113/63 100 12/18/17 00:33 97 98/60 (73) 98 Room Air 12/18/17 00:32 36.7 97 16 98/60 99 12/18/17 00:28 100 105/60 (75) 100 Room Air 12/18/17 00:01 Room Air 12/18/17 00:00 36.7 101 108/62 (77) 100 Room Air 12/17/17 23:28 102 112/68 (83) 100 Nasal Cannula 2.0 12/17/17 23:00 102 115/70 (85) 100 Nasal Cannula 2.0 12/17/17 22:59 106 22 113/67 (82) 100 Nasal Cannula 2.0 12/17/17 22:58 104 20 106/63 (77) 98 Nasal Cannula 2.0 12/17/17 22:03 100 100 21 12/17/17 22:00 100 16 109/64 (79) 100 Nasal Cannula 2.0 12/17/17 21:00 105 19 112/65 (81) 99 Nasal Cannula 2.0 12/17/17 20:00 102 104/60 (75) 100 12/17/17 20:00 Nasal Cannula 2.0 12/17/17 20:00 36.7 102 17 104/60 (75) 100 Nasal Cannula 2.0 12/17/17 19:00 102 18 97/53 (68) 100 Nasal Cannula 2.0 12/17/17 18:00 101 18 96/54 (68) 100 Nasal Cannula 2.0 12/17/17 17:10 101 18 101/59 (73) 100 Nasal Cannula 2.0 12/17/17 16:00 36.9 103 15 98/57 (71) 98 Nasal Cannula 2.0 12/17/17 16:00 Nasal Cannula 2.0 12/17/17 15:00 102 16 93/55 (68) 99 Nasal Cannula 2.0 12/17/17 14:00 104 17 105/57 (73) 100 Nasal Cannula 2.0 12/17/17 13:00 102 16 84/51 (62) 99 Nasal Cannula 2.0 12/17/17 12:30 100 18 97/53 (68) 99 Nasal Cannula 2.0 12/17/17 12:00 36.7 100 16 88/53 (65) 98 Nasal Cannula 2.0 12/17/17 12:00 Nasal Cannula 2.0 12/17/17 11:00 97 16 95/53 (67) 98 Nasal Cannula 2.0 Laboratory Results Last 24 Hours Test 12/17/17 11:30 12/17/17 16:01 12/17/17 16:35 12/17/17 18:53 Bedside Glucose 151 mg/dl 231 mg/dl Activated Partial Thromboplast Time 204.0 SECONDS 98.7 SECONDS Partial Thromboplastin Ratio 7.8 3.8 Test 12/17/17 21:15 12/17/17 21:24 12/17/17 21:27 12/17/17 22:30 Bedside Glucose 216 mg/dl Sodium Level 137 mmol/L Potassium Level 4.0 mmol/L Chloride Level 107 mmol/L Carbon Dioxide Level 20 mmol/L Anion Gap 10.0 mmol/L Blood Urea Nitrogen 18 mg/dl Creatinine 1.59 mg/dl Est Creatinine Clear Calc Drug Dose 46.4 ml/min Estimated GFR () 52.4 Estimated GFR (Non- 45.2 BUN/Creatinine Ratio 11.5 Random Glucose 211 mg/dl Calcium Level 7.9 mg/dl Ammonia 22.2 umol/L Prothrombin Time 13.6 SECONDS Prothromb Time International Ratio 1.3 Stool Occult Blood POSITIVE Test 12/17/17 22:31 12/17/17 23:31 12/17/17 23:44 12/18/17 00:43 White Blood Count 1.15 K/uL Red Blood Count 1.97 M/uL Hemoglobin 5.3 g/dL Hematocrit 16.4 % Mean Corpuscular Volume 83.2 fL Mean Corpuscular Hemoglobin 26.9 pg Mean Corpuscular Hemoglobin Concent 32.3 g/dl Platelet Count 64 K/uL Mean Platelet Volume 9.0 fL RDW Standard Deviation 52.5 fL RDW Coefficient of Variation 17.3 % Neutrophils % (Manual) 92.8 % Lymphocytes % (Manual) 4.5 % Monocytes % (Manual) 2.7 % Neutrophils # (Manual) 1.07 K/uL Total Absolute Neutrophils 1.07 K/uL Lymphocytes # (Manual) 0.05 K/uL Total Absolute Lymphocytes 0.05 K/uL Monocytes # (Manual) 0.03 K/uL Toxic Granulation 1+ Platelet Estimate DECREASED Hypochromasia PRESENT Ovalocytes 1+ Echinocytes 1+ Peripheral Blood Smear Path Consult Bedside Glucose 216 mg/dl 194 mg/dl Fibrinogen 240 mg/dl Fibrin Degradation Products 10-40 mcg/ml Heparin-PF4 Antibody Screen NEG Test 12/18/17 01:45 12/18/17 02:20 12/18/17 02:36 12/18/17 03:47 Bedside Glucose 200 mg/dl 157 mg/dl 179 mg/dl Activated Partial Thromboplast Time 51.6 SECONDS Partial Thromboplastin Ratio 2.0 Test 12/18/17 04:49 12/18/17 05:05 12/18/17 06:15 12/18/17 08:23 White Blood Count 3.36 K/uL Red Blood Count 2.98 M/uL Hemoglobin 8.0 g/dL Hematocrit 25.1 % Mean Corpuscular Volume 84.2 fL Mean Corpuscular Hemoglobin 26.8 pg Mean Corpuscular Hemoglobin Concent 31.9 g/dl RDW Standard Deviation 50.9 fL RDW Coefficient of Variation 16.6 % Platelet Count 106 K/uL Mean Platelet Volume 8.8 fL Prothrombin Time 12.9 SECONDS Prothromb Time International Ratio 1.2 Activated Partial Thromboplast Time 39.8 SECONDS Partial Thromboplastin Ratio 1.5 Sodium Level 138 mmol/L Potassium Level 3.8 mmol/L Chloride Level 108 mmol/L Carbon Dioxide Level 20 mmol/L Anion Gap 10.0 mmol/L Blood Urea Nitrogen 18 mg/dl Creatinine 1.42 mg/dl Est Creatinine Clear Calc Drug Dose 52.0 ml/min Estimated GFR () 60.1 Estimated GFR (Non- 51.8 BUN/Creatinine Ratio 12.7 Random Glucose 166 mg/dl Estimated Average Glucose 123 mg/dl Hemoglobin A1c 5.9 % Calcium Level 8.1 mg/dl Phosphorus Level 2.7 mg/dl Magnesium Level 1.9 mg/dl Total Bilirubin 1.3 mg/dl Direct Bilirubin 0.7 mg/dl Aspartate Amino Transf (AST/SGOT) 26 U/L Alanine Aminotransferase (ALT/SGPT) 25 U/L Alkaline Phosphatase 187 U/L Pro-B-Type Natriuretic Peptide 1060 pg/ml Total Protein 6.1 gm/dl Albumin 3.1 gm/dl Lipase 218 U/L Bedside Glucose 157 mg/dl 166 mg/dl 136 mg/dl
[2017-12-18] MEDS ORDERED: INSULIN GLARGINE SOLOSTAR 100 UNITS/ML 3 ML PEN SC ONE (10:30)
--- NOTE | 2017-12-18 11:02 | Palliative Care Consultation ---
Consultation Date of Consultation: Dec 18, 2017. Requesting Physician: Maricel Lloyd PA-C Attending Physician: Dr. Dubois Reason for Consultation: Goals of care History of Present Illness This 62 year old male patient with PMH sarcoidosis, cirrhosis, portal hypertension, DM type 2, THUY, HLD, htn, and others listed below, presented to the hospital yesterday from [facility] with fever, hypotension, tachycardia, and lethargy. He was recently here with cellulitis of the left lower abdomen, discharged to [facility]. Patient has ongoing issues with "fluid pocket " in his abdomen as well as recurrent infection. He has been dealing with this sarcoidosis for about 12-15 years, has been on Prednisone for the majority of that time. He has also had several lumbar surgeries for fluid collection there as well. Patient was even "paralyzed" at one point after surgery, but recently has been making strides to get better. He is able to ambulate with a walker when he's at physical therapy, uses wheelchair at home. He can perform his daily ADL independently. Patient was seen by our surgical team today for the fluid collection in abdomen. Given his extensive history and acute illness, it was recommended for higher level of care by surgeon, Dr. Morataya. Before patient goes, palliative care and ICU team will have discussion with patient about goals of care. Please see below. Past Medical/Surgical History Medical History: Cirrhosis Sarcoidosis Anemia Asthma Fungemia GERD HLD Htn Lumbar stenosis Obstructive sleep apnea Social History Smoking Status: Never Smoker History of Alcohol Use: No Drug Use: none Marital Status: Housing Status: lives with family Occupation Status: retired Review of Systems Constitutional: + weakness ENT: No trouble swallowing Respiratory: + dyspnea on exertion, No shortness of breath Cardiac: No chest pain Abdomen: No pain, No nausea, No vomiting Musculoskeletal: No problem reported (denies pain) Male : No problem reported Psychiatric: No depression symptoms, No anxiety Allergies Coded Allergies: Celecoxib (Verified Allergy, Intermediate, HIVES, 12/17/17) Penicillins (Verified Allergy, Intermediate, HIVES, 12/17/17) Medications Current Inpatient Medications Medications (Trade) Dose Ordered Sig/Nathalia Route Start Time Stop Time Status Last Admin Dose Admin Hydrocortisone Sodium Succinate 100 mg/Syringe 2 ml @ 4 mls/min Q8H IV 12/17/17 12:00 01/16/18 11:59 12/18/17 04:35 4 MLS/MIN Miscellaneous Information (Consult) 1 ea UD PRN N/A 12/17/17 03:45 01/16/18 03:44 Aztreonam 2000 mg/ Dextrose 110 ml @ 100 mls/hr Q8H IV 12/17/17 10:00 12/27/17 09:59 12/18/17 10:36 100 MLS/HR Norepinephrine Bitartrate 8 mg/ Dextrose 508 ml @ 0 mls/hr Q0M PRN IV 12/17/17 04:02 01/16/18 04:01 Pantoprazole Sodium 40 mg/ Syringe 10 ml @ 5 mls/min DAILY IV 12/17/17 09:00 01/16/18 08:59 12/18/17 08:34 5 MLS/MIN Levalbuterol (Xopenex 1.25MG/ 0.5ML Neb) 1.25 mg Q4H PRN INH 12/17/17 04:15 01/16/18 04:14 12/18/17 04:59 1.25 MG Ipratropium Dawson (Atrovent 0.02% 0.5MG/2.5ML Neb) 0.5 mg Q4H PRN INH 12/17/17 04:15 01/16/18 04:14 12/18/17 04:59 0.5 MG Miscellaneous Information (Icu Protocol For Hyperglycemia) 1 ea PRN PRN N/A 12/17/17 04:15 12/19/17 04:14 Glucose (Glucose 40% Gel) 15-30 GRAMS 15 GRAMS... UD PRN PO 12/17/17 05:45 01/16/18 05:44 Glucose (Glucose Chew Tab) 4-8 Tablets 4 Tabl... UD PRN PO 12/17/17 05:45 01/16/18 05:44 Dextrose (Dextrose 50% 50ML Syringe) 25-50ML OF 50% DW IV FOR... UD PRN IV 12/17/17 05:45 01/16/18 05:44 Glucagon (Glucagon Inj) 1 mg UD PRN SQ 12/17/17 05:45 01/16/18 05:44 Caspofungin 50 mg/ Sodium Chloride 260 ml @ 250 mls/hr DAILY IV 12/18/17 09:00 2/18 10:03 12/18/17 08:34 250 MLS/HR Lactulose (Chronulac Syrup) 20 gm BID PO 12/17/17 21:00 01/16/18 20:59 12/18/17 08:30 20 GM Miconazole Nitrate (Desenex Powder) 1 appln BID EXT 12/17/17 21:00 01/16/18 20:59 12/18/17 08:30 1 APPLN Propranolol HCl (Inderal Tab) 10 mg DAILY PO 12/18/17 09:00 01/17/18 08:59 12/18/17 08:31 10 MG Rifaximin (Xifaxan Tab) 550 mg Q12 PO 12/17/17 21:00 01/16/18 20:59 12/18/17 08:30 550 MG Vancomycin HCl 1250 mg/Sodium Chloride 275 ml @ 125 mls/hr Q24H IV 12/18/17 04:00 12/27/17 03:59 12/18/17 05:14 125 MLS/HR Oxycodone HCl (Roxicodone Immediate Rel Tab) 5 mg Q4 PRN PO 12/17/17 14:15 12/31/17 14:14 12/17/17 23:47 5 MG Insulin Human Regular 250 units/ Sodium Chloride 252.5 ml @ 0 mls/hr Q24H IV 12/17/17 22:00 12/18/17 16:30 12/17/17 22:16 2 MLS/HR Sodium Chloride 1,000 ml @ 75 mls/hr [id number] IV 12/17/17 22:59 01/16/18 22:58 12/17/17 22:59 75 MLS/HR Albuterol Sulfate (Ventolin 0.5% 2.5MG/0.5ML Neb) 2.5 mg Q6R PRN INH 12/18/17 08:00 01/17/18 07:59 Heparin Sodium/ Dextrose 500 ml @ 20 mls/hr Q24H PRN IV 12/18/17 09:45 01/17/18 09:44 12/18/17 10:48 20 MLS/HR Miscellaneous Information (Dc Iv Insulin Infusion) 1 ea 1630 ONCE N/A 12/18/17 16:30 12/18/17 16:31 Insulin Glargine (Lantus Solostar Pen) Q12 SC 12/18/17 21:00 01/17/18 20:59 Insulin Aspart (novoLOG ASPART) ACHS SC 12/18/17 11:00 01/17/18 10:59 Physical Exam Date Time Temp Pulse Resp B/P (MAP) Pulse Ox O2 Delivery O2 Flow Rate FiO2 12/18/17 08:31 103 27 105/56 (72) 98 Nasal Cannula 2.0 12/18/17 08:00 Nasal Cannula 2.0 12/18/17 08:00 36.8 101 25 125/70 (88) 99 Nasal Cannula 2.0 12/18/17 07:45 99 23 123/70 (87) 98 Nasal Cannula 2.0 12/18/17 07:30 96 17 133/85 (101) 100 BiPAP 12/18/17 07:15 95 15 130/79 (96) 96 BiPAP 12/18/17 07:00 97 13 130/70 (90) 96 BiPAP 12/18/17 06:00 99 15 132/83 (99) 93 BiPAP 12/18/17 05:45 100 18 139/82 (101) 93 BiPAP 12/18/17 05:30 98 21 135/80 (98) 96 BiPAP 12/18/17 05:15 82 22 136/83 (100) 98 BiPAP 12/18/17 05:01 88 20 136/80 (98) 100 BiPAP 12/18/17 05:01 75 99 21 12/18/17 04:59 76 26 99 BiPAP/CPAP 12/18/17 04:49 100 25 132/78 (96) 96 Room Air 12/18/17 04:49 36.8 99 21 132/78 96 12/18/17 04:45 101 22 123/71 (88) 90 Room Air 12/18/17 04:30 98 14 124/76 (92) 95 Room Air 12/18/17 04:30 98 14 124/76 95 12/18/17 04:21 97 13 128/70 (89) 95 Room Air 12/18/17 04:21 36.8 91 16 128/70 95 12/18/17 04:15 97 15 122/71 (88) 95 Room Air 12/18/17 04:00 Room Air 12/18/17 04:00 36.8 98 18 121/73 (89) 97 Room Air 12/18/17 03:45 100 15 116/72 (87) 96 Room Air 12/18/17 03:41 36.8 98 16 117/66 99 12/18/17 03:39 99 16 117/66 (83) 96 Room Air 12/18/17 03:15 100 19 119/70 (86) 96 Room Air 12/18/17 03:15 100 19 119/70 96 12/18/17 03:00 97 15 114/72 (86) 99 Room Air 12/18/17 03:00 97 15 114/72 99 12/18/17 02:45 98 17 118/70 (86) 98 Room Air 12/18/17 02:45 36.8 98 17 118/70 98 12/18/17 02:35 36.7 99 16 114/73 98 12/18/17 02:34 99 14 114/73 (87) 99 Room Air 12/18/17 02:30 100 16 122/71 (88) 98 Room Air 12/18/17 02:25 105 18 102/59 (73) 84 Room Air 12/18/17 02:24 36.7 102 16 102/59 95 12/18/17 02:15 99 17 116/66 (83) 99 Room Air 12/18/17 02:09 36.8 100 18 116/67 100 12/18/17 02:09 99 16 116/67 (83) 99 Room Air 12/18/17 02:00 99 21 109/63 (78) 99 Room Air 12/18/17 01:57 98 14 114/66 (82) 99 Room Air 12/18/17 01:56 36.8 98 16 114/66 100 12/18/17 01:45 102 21 109/65 (80) 99 Room Air 12/18/17 01:30 100 102/58 (73) 99 Room Air 12/18/17 01:15 98 103/60 (74) 98 Room Air 12/18/17 01:00 98 103/61 (75) 100 Room Air 12/18/17 00:46 99 113/63 (80) 100 Room Air 12/18/17 00:46 36.7 99 18 113/63 100 12/18/17 00:33 97 98/60 (73) 98 Room Air 12/18/17 00:32 36.7 97 16 98/60 99 12/18/17 00:28 100 105/60 (75) 100 Room Air 12/18/17 00:01 Room Air 12/18/17 00:00 36.7 101 108/62 (77) 100 Room Air 12/17/17 23:28 102 112/68 (83) 100 Nasal Cannula 2.0 12/17/17 23:00 102 115/70 (85) 100 Nasal Cannula 2.0 12/17/17 22:59 106 22 113/67 (82) 100 Nasal Cannula 2.0 12/17/17 22:58 104 20 106/63 (77) 98 Nasal Cannula 2.0 12/17/17 22:03 100 100 21 12/17/17 22:00 100 16 109/64 (79) 100 Nasal Cannula 2.0 12/17/17 21:00 105 19 112/65 (81) 99 Nasal Cannula 2.0 12/17/17 20:00 102 104/60 (75) 100 12/17/17 20:00 Nasal Cannula 2.0 12/17/17 20:00 36.7 102 17 104/60 (75) 100 Nasal Cannula 2.0 12/17/17 19:00 102 18 97/53 (68) 100 Nasal Cannula 2.0 12/17/17 18:00 101 18 96/54 (68) 100 Nasal Cannula 2.0 12/17/17 17:10 101 18 101/59 (73) 100 Nasal Cannula 2.0 12/17/17 16:00 36.9 103 15 98/57 (71) 98 Nasal Cannula 2.0 12/17/17 16:00 Nasal Cannula 2.0 12/17/17 15:00 102 16 93/55 (68) 99 Nasal Cannula 2.0 12/17/17 14:00 104 17 105/57 (73) 100 Nasal Cannula 2.0 12/17/17 13:00 102 16 84/51 (62) 99 Nasal Cannula 2.0 12/17/17 12:30 100 18 97/53 (68) 99 Nasal Cannula 2.0 12/17/17 12:00 36.7 100 16 88/53 (65) 98 Nasal Cannula 2.0 12/17/17 12:00 Nasal Cannula 2.0 12/17/17 11:00 97 16 95/53 (67) 98 Nasal Cannula 2.0 General Appearance: no apparent distress, + obese ENT: hearing grossly normal Neck: supple, no JVD Respiratory: no respiratory distress, no accessory muscle use, + pertinent finding (nasal cannula) Cardiovascular: regular rate, rhythm, + tachycardia Abdomen: + distended (obesely distended abdomen) Neurologic/Psychiatric: alert, normal mood/affect, oriented x 3 Skin: + pertinent finding (spider hemangiomas on face) Laboratory Results Last 24 Hours Test 12/17/17 11:30 12/17/17 16:01 12/17/17 16:35 12/17/17 18:53 Bedside Glucose 151 mg/dl 231 mg/dl Activated Partial Thromboplast Time 204.0 SECONDS 98.7 SECONDS Partial Thromboplastin Ratio 7.8 3.8 Test 12/17/17 21:15 12/17/17 21:24 12/17/17 21:27 12/17/17 22:30 Bedside Glucose 216 mg/dl Sodium Level 137 mmol/L Potassium Level 4.0 mmol/L Chloride Level 107 mmol/L Carbon Dioxide Level 20 mmol/L Anion Gap 10.0 mmol/L Blood Urea Nitrogen 18 mg/dl Creatinine 1.59 mg/dl Est Creatinine Clear Calc Drug Dose 46.4 ml/min Estimated GFR () 52.4 Estimated GFR (Non- 45.2 BUN/Creatinine Ratio 11.5 Random Glucose 211 mg/dl Calcium Level 7.9 mg/dl Ammonia 22.2 umol/L Prothrombin Time 13.6 SECONDS Prothromb Time International Ratio 1.3 Stool Occult Blood POSITIVE Test 12/17/17 22:31 12/17/17 23:31 12/17/17 23:44 12/18/17 00:43 White Blood Count 1.15 K/uL Red Blood Count 1.97 M/uL Hemoglobin 5.3 g/dL Hematocrit 16.4 % Mean Corpuscular Volume 83.2 fL Mean Corpuscular Hemoglobin 26.9 pg Mean Corpuscular Hemoglobin Concent 32.3 g/dl Platelet Count 64 K/uL Mean Platelet Volume 9.0 fL RDW Standard Deviation 52.5 fL RDW Coefficient of Variation 17.3 % Neutrophils % (Manual) 92.8 % Lymphocytes % (Manual) 4.5 % Monocytes % (Manual) 2.7 % Neutrophils # (Manual) 1.07 K/uL Total Absolute Neutrophils 1.07 K/uL Lymphocytes # (Manual) 0.05 K/uL Total Absolute Lymphocytes 0.05 K/uL Monocytes # (Manual) 0.03 K/uL Toxic Granulation 1+ Platelet Estimate DECREASED Hypochromasia PRESENT Ovalocytes 1+ Echinocytes 1+ Peripheral Blood Smear Path Consult Bedside Glucose 216 mg/dl 194 mg/dl Fibrinogen 240 mg/dl Fibrin Degradation Products 10-40 mcg/ml Heparin-PF4 Antibody Screen NEG Test 12/18/17 01:45 12/18/17 02:20 12/18/17 02:36 12/18/17 03:47 Bedside Glucose 200 mg/dl 157 mg/dl 179 mg/dl Activated Partial Thromboplast Time 51.6 SECONDS Partial Thromboplastin Ratio 2.0 Test 12/18/17 04:49 12/18/17 05:05 12/18/17 06:15 12/18/17 08:23 White Blood Count 3.36 K/uL Red Blood Count 2.98 M/uL Hemoglobin 8.0 g/dL Hematocrit 25.1 % Mean Corpuscular Volume 84.2 fL Mean Corpuscular Hemoglobin 26.8 pg Mean Corpuscular Hemoglobin Concent 31.9 g/dl RDW Standard Deviation 50.9 fL RDW Coefficient of Variation 16.6 % Platelet Count 106 K/uL Mean Platelet Volume 8.8 fL Prothrombin Time 12.9 SECONDS Prothromb Time International Ratio 1.2 Activated Partial Thromboplast Time 39.8 SECONDS Partial Thromboplastin Ratio 1.5 Sodium Level 138 mmol/L Potassium Level 3.8 mmol/L Chloride Level 108 mmol/L Carbon Dioxide Level 20 mmol/L Anion Gap 10.0 mmol/L Blood Urea Nitrogen 18 mg/dl Creatinine 1.42 mg/dl Est Creatinine Clear Calc Drug Dose 52.0 ml/min Estimated GFR () 60.1 Estimated GFR (Non- 51.8 BUN/Creatinine Ratio 12.7 Random Glucose 166 mg/dl Estimated Average Glucose 123 mg/dl Hemoglobin A1c 5.9 % Calcium Level 8.1 mg/dl Phosphorus Level 2.7 mg/dl Magnesium Level 1.9 mg/dl Total Bilirubin 1.3 mg/dl Direct Bilirubin 0.7 mg/dl Aspartate Amino Transf (AST/SGOT) 26 U/L Alanine Aminotransferase (ALT/SGPT) 25 U/L Alkaline Phosphatase 187 U/L Pro-B-Type Natriuretic Peptide 1060 pg/ml Total Protein 6.1 gm/dl Albumin 3.1 gm/dl Lipase 218 U/L Bedside Glucose 157 mg/dl 166 mg/dl 136 mg/dl Assessment & Plan Problem list: Lethargy Fever Hypotension Septic shock- ?source- two fluid collections in left side of abdomen- could be seroma LETTY Portal hypertension/cirrhosis (alcohol vs. sarcoidosis-induced) DVT- on heparin Anemia Sarcoidosis- immunosuppressed given long-term steroid use DM type 2- uncontrolled- on insulin gtt Goals of care Palliative care recs: -I met with the patient along with the ICU team (Maricel Holman PA-C, and student) in room 105. Long discussion was held regarding goals of care. In particular, it was stressed to the patient the importance of diet to help control the hyperglycemia in the setting of acute infection, immunosuppression, etc. Patient verbalizes understanding. Patient's goal is to get better, and he wants FULL TREATMENT at this time including CPR/intubation if indicated. At the same time, patient states he is not afraid to and has "had my conversation with God." He states that if things worsen to the point of no recovery or when he feels ready, he would not have a problem transitioning to comfort care. At this time, he is not there. [place] [facility] and [place]. Thank you kindly for this consult. Please contact me with any further palliative care needs.
[2017-12-18] MEDS: OXYCODONE HCL IR 5 MG TAB (IMMEDIATE RELEASE) PO PRN ×2 (12:48→23:00)
[2017-12-18 12:53] LABS: HEMATOCRIT 23.8 % (42-52); HEMOGLOBIN 7.7 g/dL (14.0-18.0)
[2017-12-18 13:17] LABS: PTT PATIENT 53.5 SECONDS (21.0-31.0)
--- NOTE | 2017-12-18 14:41 | DIAGNOSTIC IMAGING REPORT ---
LEFT LOWER EXTREMITY VENOUS DOPPLER CLINICAL HISTORY: dvt eval COMPARISON STUDY: Bilateral lower extremity venous Doppler January 19, 2016. TECHNIQUE: Sonography of the deep venous system of the left lower extremity was performed. Compression and augmentation were evaluated. FINDINGS: The left common femoral, superficial femoral and popliteal veins were compressible. Augmentation was normal. Flow was shown within the deep calf vessels. IMPRESSION: No evidence of deep venous thrombus within the left lower extremity. Electronically signed by: Shayne Buchanan M.D. 12/18/2017 2:39 PM Dictated Date/Time: 12/18/2017 2:39 PM
[2017-12-18 16:06] LABS: HEMATOCRIT 23.9 % (42-52); HEMOGLOBIN 7.7 g/dL (14.0-18.0)
[2017-12-18 16:27] LABS: PTT PATIENT 69.3 SECONDS (21.0-31.0)
[2017-12-18] MEDS ORDERED: DC IV INSULIN INFUSION ONE (16:30)
[2017-12-18 20:18] LABS: HEMATOCRIT 23.7 % (42-52); HEMOGLOBIN 7.8 g/dL (14.0-18.0)
[2017-12-18] MEDS ORDERED: INSULIN GLARGINE SOLOSTAR 100 UNITS/ML 3 ML PEN SC SCH (21:00)
[2017-12-19] VITALS: BP 134/77; PULSE 79; O2SAT 95
--- NOTE | 2017-12-19 07:55 | Discharge Summary ---
Discharge Summary Date of Service Dec 18, 2017. Discharge Summary Admission Date: Dec 17, 2017 at 04:08 Discharge Date: Dec 18, 2017 Discharge Disposition: Acute care facility Principal Diagnosis: Hypotension from unclear etiology Problems/Secondary Diagnoses: Sepsis/ Cirrhosis/ Ascities Immunizations: Have You Had Influenza Vaccine: Yes Influenza Vaccine Date: Oct 07, 2005 History of Tetanus Vaccine?: Unknown History of Pneumococcal: Yes Pneumococcal Date: Oct 07, 2004 History of Hepatitis B Vaccine: No Consultations: Critical care consult Discharge Exam ROS: Constitutional: + weakness, No fever, No chills Respiratory: + dyspnea on exertion, No cough, No shortness of breath Cardiac: + edema, No chest pain Abdomen: + problem reported (mild distention), No pain, No nausea, No vomiting Psychiatric: No depression symptoms, No anxiety General Appearance: WD/WN, NO LONGER IN DISTRESS Respiratory/Chest: chest non-tender, + decreased breath sounds, no accesory muscle use Cardiovascular: regular rate, rhythm, + systolic murmur Abdomen: normal bowel sounds, soft, + distended (no large fluid wave consistent with ascites) Extremities: + pedal edema (minor tenderness to his right lateral a little less ) Neurologic/Psychiatric: alert, oriented x 3 Hospital Course 62-year-old male presented to the ER from [facility] with concern for sepsis was discharged marked facility not so long ago being treated with intravenous antibiotics with concern for infected fluid collection from recent spinal surgery. There was concern of fluid collection in the abdominal wall and also in the paraspinous areas. Given the complexity of his medical care at decision was made to treat medically and not to pursue aggressive intervention. With his liver and renal dysfunction aggressive intervention would need to likely be performed to tertiary center. Patient will be referred to [facility]. 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 Hypotension from unclear etiology, relative immunosuppressed and given long- term chronic steroid use, acute anemia Palliative care was consulted: Patient's goal is to get better, and he wants FULL TREATMENT at this time including CPR/intubation if indicated Metabolic encephalopathy likely reactive sepsis source currently is unclear he has baseline lung changes from his sarcoidosis he is immunosuppressed from chronic steroid use he is broadly covered with aztreonam vancomycin and caspofungin. His mentation did improve on day of transfer. He is pancultured considerations could be the fluid collections that mentioned above or skin-related infection or urinary infection. He does not have any symptoms of SBP and his last hospital stay he did have his ascites evaluated and that was negative he does not have clinical signs or symptoms of significant ascites, Influenza negative - Chest x-ray with probable right middle infiltrate Renal insufficiency:- Creatinine at 1.9, baseline 1.2 concern for hepatorenal syndrome volume resuscitated and supporting blood pressure following levels Sarcoidosis: Has been given stress steroid coverage given he is on chronic prednisone 20 mg daily Type 2 diabetes - A1c 8.4 (Sep 2017) this will likely be worsened by steroid coverage will maintain insulin sliding scale watching for toxic side effects such as hypoglycemia Portal hypertension/alcoholic/sarcoidosis-induced cirrhosis Rifaximin and lactulose,propranolol have been restarted given his mental state for permits oral intake and his blood pressure have prevented propranolol we'll continue to hold his Lasix 40 mg daily and Spironolactone 100 mg Right Common Femoral DVT and Superficial Femoral Vein: Was previously on lovenox which has been held considering his decreased renal function therapeutic heparin drip has been started we'll be monitoring his CBC for toxic effects of platelet depression this will also serve as current DVT prevention Full code Total Time Spent: Greater than 30 minutes This includes examination of the patient, discharge planning, medication reconciliation, and communication with other providers. Discharge Instructions Please refer to the electronic Patient Visit Report (Discharge Instructions) for additional information.
[2017-12-20] MEDS ORDERED: VANCOMYCIN TROUGH ONE (03:30)
== END 2017-12-19 00:01 | disposition short-term general hospital (02) | DRG 871 ==
LOC: EDBD 00:36 → C.EDC 00:37 → C.MSICU 04:08 → ENRESERV 04:18
PROVIDERS: ADMIT Family Medicine; ATTEND Internal Medicine Sports Medicine
DX: A41.9 Sepsis, unspecified organism (principal); G93.41 Metabolic encephalopathy; R65.21 Severe sepsis with septic shock; N17.9 Acute kidney failure, unspecified; K76.6 Portal hypertension; I82.411 Acute embolism and thrombosis of right femoral vein; R18.8 Other ascites; K21.9 Gastro-esophageal reflux disease without esophagitis; J45.909 Unspecified asthma, uncomplicated; I10 Essential (primary) hypertension; E78.5 Hyperlipidemia, unspecified; E66.9 Obesity, unspecified; G47.33 Obstructive sleep apnea (adult) (pediatric); D86.0 Sarcoidosis of lung; E11.9 Type 2 diabetes mellitus without complications; K74.60 Unspecified cirrhosis of liver; Z68.31 Body mass index [BMI] 31.0-31.9, adult; Z87.442 Personal history of urinary calculi; Z79.4 Long term (current) use of insulin; Z88.0 Allergy status to penicillin

== ENCOUNTER → 2017-12-26 | Outpatient (CLI) | payer BC ==
[~2017-12-26] MED LIST changes: -ALBINSX INH; +BISA10SU38 PR; +DOCU100C31 PO; -ENOX40IN SC; +ENOX80IN SQ; +IPRASOL4 INH; -LDDP5 TD; +MOML PO; +OXYC-643 PO; +OXYC-88 PO; -OXYC1TAB3 PO; +POLY335019 PO; +RIFA550T2 PO; +SENN-61 PO; +SODIENE PR; +SPIR100T PO; -SPRN100 PO; -XFX550 PO
[2017-12-26 19:18] LABS: ALBUMIN 2.9 gm/dl (3.4-5.0); ALT/SGPT 34 U/L (12-78); AST/SGOT 36 U/L (15-37); BLOOD UREA NITROGEN 20 mg/dl (7-18); CALCIUM 8.6 mg/dl (8.5-10.1); CARBON DIOXIDE 31 mmol/L (21-32); CREATININE 1.42 mg/dl (0.60-1.40); GLUCOSE 64 mg/dl (70-99); POTASSIUM 3.4 mmol/L (3.5-5.1); SODIUM 140 mmol/L (136-145)
[2017-12-26 19:21] LABS: ALKALINE PHOSPHATASE 241 U/L (45-117); TOTAL PROTEIN 6.1 gm/dl (6.4-8.2)
[2017-12-26 19:45] LABS: BASO % 0.4 %; BASO ABS # 0.04 K/uL (0-0.2); EOS % 3.9 %; EOS ABS # 0.37 K/uL (0-0.5); HEMATOCRIT 30.7 % (42-52); HEMOGLOBIN 9.9 g/dL (14.0-18.0); IG# 0.07 K/uL (0.00-0.02); LYMPH % 7.2 %; LYMPH ABS # 0.68 K/uL (1.2-3.4); MEAN CELL VOLUME 85.3 fL (80-100); MEAN CORPUSCULAR HEMOGLOBIN 27.5 pg (25-34); MEAN CORPUSCULAR HGB CONC 32.2 g/dl (32-36); MONO % 18.1 %; MONO ABS # 1.71 K/uL (0.11-0.59); NEUT % 69.7 %; PLATELET COUNT 164 K/uL (130-400); RED CELL DISTRIBUTION WIDTH CV 19.1 % (11.5-14.5); RED CELL DISTRIBUTION WIDTH SD 59.1 fL (36.4-46.3); WHITE BLOOD COUNT 9.47 K/uL (4.8-10.8)
== END | disposition home or self-care (01) ==
LOC: C.LABSPEC 17:47
PROVIDERS: ATTEND Internal Medicine
DX: D61.818 Other pancytopenia (principal); E11.9 Type 2 diabetes mellitus without complications; K74.60 Unspecified cirrhosis of liver

== ENCOUNTER → 2018-03-05 | Outpatient (CLI) | payer BC ==
[~2018-03-05] MED LIST changes: +POTA-639 PO; -POTA20TA16 PO
== END | disposition home or self-care (01) ==
LOC: C.LABSPEC 17:22
PROVIDERS: ATTEND Internal Medicine
DX: M54.9 Dorsalgia, unspecified (principal)

== ENCOUNTER → 2018-04-03 | Outpatient (CLI) | payer BC ==
[~2018-04-03] MED LIST changes: +OXYC-594 PO; -OXYC-88 PO
[2018-04-03 18:09] LABS: INR 1.1 (0.9-1.1); PTT PATIENT 27.8 SECONDS (21.0-31.0)
[2018-04-03 20:55] LABS: HEMATOCRIT 29.8 % (42-52); HEMOGLOBIN 9.2 g/dL (14.0-18.0); MEAN CELL VOLUME 84.2 fL (80-100); MEAN CORPUSCULAR HGB CONC 30.9 g/dl (32-36); PLATELET COUNT 74 K/uL (130-400); RED CELL DISTRIBUTION WIDTH CV 16.9 % (11.5-14.5); RED CELL DISTRIBUTION WIDTH SD 52.1 fL (36.4-46.3); WHITE BLOOD COUNT 5.65 K/uL (4.8-10.8)
[2018-04-03 20:57] LABS: BASO % 0.4 %; BASO ABS # 0.02 K/uL (0-0.2); EOS % 1.9 %; EOS ABS # 0.11 K/uL (0-0.5); IG# 0.02 K/uL (0.00-0.02); LYMPH % 13.3 %; LYMPH ABS # 0.75 K/uL (1.2-3.4); MONO % 8.3 %; MONO ABS # 0.47 K/uL (0.11-0.59); NEUT % 75.7 %; NEUT ABS # 4.28 K/uL (1.4-6.5)
== END | disposition home or self-care (01) ==
LOC: C.LABSPEC 16:56
PROVIDERS: ATTEND Internal Medicine
DX: R18.8 Other ascites (principal)

== ENCOUNTER → 2018-06-12 | Outpatient (CLI) | payer BC ==
[~2018-06-12] MED LIST changes: -ACET-1256 PO; +ALBINS/ INH; +ANSHCCR EXT; -BISA10SU38 PR; -DOCU100C31 PO; -ENOX80IN SQ; +INSDGI SC; -INSDGIPEN SC; -IPRASOL4 INH; -LACT10SO17 PO; +LACT10SO3 PO; -MCTP EXT; +MOME6000 NAE; -MOML PO; -OXYC-594 PO; -OXYC-643 PO; +OXYC-737 PO; -POLY335019 PO; +QUET1TAB30 PO; -SENN-61 PO; +SIME80CH13 PO; -SODIENE PR; -SPIR100T PO; +SPIR25TA5 PO; +SULF800T23 PO; +VNTHFA/IN INH; +[UNRECOGNIZED DRUG - CODE] PO
[2018-06-12 18:09] LABS: BASO % 0.2 %; BASO ABS # 0.01 K/uL (0-0.2); EOS % 2.7 %; EOS ABS # 0.15 K/uL (0-0.5); HEMATOCRIT 25.3 % (42-52); HEMOGLOBIN 7.7 g/dL (14.0-18.0); IG# 0.03 K/uL (0.00-0.02); LYMPH % 11.1 %; LYMPH ABS # 0.61 K/uL (1.2-3.4); MEAN CELL VOLUME 78.6 fL (80-100); MEAN CORPUSCULAR HEMOGLOBIN 23.9 pg (25-34); MEAN CORPUSCULAR HGB CONC 30.4 g/dl (32-36); MEAN PLATELET VOLUME 10.7 fL (7.4-10.4); MONO % 9.7 %; MONO ABS # 0.53 K/uL (0.11-0.59); NEUT % 75.8 %; NEUT ABS # 4.16 K/uL (1.4-6.5); PLATELET COUNT 118 K/uL (130-400); RED CELL DISTRIBUTION WIDTH CV 17.2 % (11.5-14.5); RED CELL DISTRIBUTION WIDTH SD 49.6 fL (36.4-46.3); WHITE BLOOD COUNT 5.49 K/uL (4.8-10.8)
[2018-06-12 18:17] LABS: INR 1.1 (0.9-1.1)
--- NOTE | 2018-06-22 10:30 | CODING QUERY NO DIAGNOSIS ---
1953 Valid Physician Order Needed A valid physician order must be submitted in order to properly bill for the service(s) provided, including date of service(s), valid diagnosis, and physician signature. If these tests are done on a recurring basis the original physican order must be submitted in order to code and bill for the service(s) provided. Please fax us the original, signed physician order so that we may expedite billing to [phone] DOS 06/12/18 * CBC WITH AUTO DIFF *PT Thank you Jessica [employer]
== END | disposition home or self-care (01) ==
LOC: C.LABSPEC 17:23
PROVIDERS: ATTEND Internal Medicine
DX: R18.8 Other ascites (principal); K70.31 Alcoholic cirrhosis of liver with ascites

== ENCOUNTER → 2018-06-26 | Outpatient (CLI) | payer BC ==
[~2018-06-26] MED LIST changes: -QUET1TAB30 PO
[2018-06-26 17:33] LABS: MEAN CORPUSCULAR HGB CONC 30.9 g/dl (32-36)
[2018-06-26 17:42] LABS: INR 1.1 (0.9-1.1); PTT PATIENT 29.2 SECONDS (21.0-31.0)
[2018-06-26 17:43] LABS: HEMATOCRIT 30.1 % (42-52); HEMOGLOBIN 9.3 g/dL (14.0-18.0); MEAN CELL VOLUME 80.3 fL (80-100); MEAN CORPUSCULAR HEMOGLOBIN 24.8 pg (25-34); RED CELL DISTRIBUTION WIDTH CV 19.3 % (11.5-14.5); RED CELL DISTRIBUTION WIDTH SD 56.8 fL (36.4-46.3)
[2018-06-26 17:56] LABS: BASO % 0.8 %; BASO ABS # 0.04 K/uL (0-0.2); EOS % 2.7 %; EOS ABS # 0.14 K/uL (0-0.5); IG# 0.06 K/uL (0.00-0.02); LYMPH % 10.6 %; LYMPH ABS # 0.55 K/uL (1.2-3.4); MONO % 10.6 %; MONO ABS # 0.55 K/uL (0.11-0.59); NEUT % 74.1 %; NEUT ABS # 3.86 K/uL (1.4-6.5); PLATELET COUNT 84 K/uL (130-400)
--- NOTE | 2018-06-28 14:29 | Discharge Instructions ---
Discharge Instructions Procedure Procedure Date: Jun 28, 2018. Reason for visit: Ascites, K74.60, Z01.818. Discharge Discharge Date: Jun 28, 2018. Discharge Diagnosis: same Instructions Activity Recommendations: No limitations Return to School/Work: no limitations Recommended Home Diet: No Limitations, Resume Previous Diet Provider Instructions: ACTIVITY RECOMMENDATIONS: * Rest today. * Resume regular activity in one day. MEDICATIONS: * May take Tylenol or Ibuprofen as needed for pain. DIET: * Resume previous diet. SPECIAL CARE INSTRUCTIONS: Call your doctor if: * Temperature above 101 degrees F. * Pain not relieved by pain medicine ordered. * Increased drainage or redness from incision. * Notify your doctor with any questions or concerns. Call your doctor or go to the nearest Emergency Department if you experience: * Increased chest pain or shortness of breath. FOLLOW UP VISIT: Follow-up with Referring Physician as scheduled. Allergies Coded Allergies: Celecoxib (Verified Allergy, Intermediate, HIVES, 06/15/18) Penicillins (Verified Allergy, Intermediate, HIVES, 06/15/18) Vicky Hernandez Recommendations: Call your doctor if: * Temperature above 101 degrees * Pain not relieved by pain medicine ordered * There is increased drainage or redness from any incision * You have any unanswered questions or concerns. Your Doctors Instructions noted above were prepared by provider Joseph Beltrán. Patient Signature Section: Patient Instructions Signature Page Orlando Santiago Patient (or Guardian) Signature/Date: I have read and understand the instructions given to me by my caregivers. Caregiver/RN/Doctor Signature/Date: The above-named patient and/or guardian has received patient instructions on this date. + Original Patient Signature Page (only) stays with chart. Please make copy for patient.
== END | disposition home or self-care (01) ==
LOC: C.LABSPEC 17:18
PROVIDERS: ATTEND Internal Medicine
DX: Z01.818 Encounter for other preprocedural examination (principal); K74.60 Unspecified cirrhosis of liver; R18.8 Other ascites

== ENCOUNTER → 2018-07-10 | Outpatient (CLI) | payer BC ==
[2018-07-10 18:34] LABS: MEAN CORPUSCULAR HGB CONC 30.7 g/dl (32-36)
[2018-07-10 18:46] LABS: INR 1.1 (0.9-1.1)
[2018-07-10 19:31] LABS: HEMATOCRIT 31.6 % (42-52); HEMOGLOBIN 9.8 g/dL (14.0-18.0); MEAN CORPUSCULAR HEMOGLOBIN 24.2 pg (25-34); MEAN PLATELET VOLUME 10.5 fL (7.4-10.4); PLATELET COUNT 97 K/uL (130-400); RED CELL DISTRIBUTION WIDTH CV 20.4 % (11.5-14.5); RED CELL DISTRIBUTION WIDTH SD 58.5 fL (36.4-46.3); WHITE BLOOD COUNT 7.89 K/uL (4.8-10.8)
[2018-07-10 19:32] LABS: BASO % 0.3 %; BASO ABS # 0.02 K/uL (0-0.2); EOS % 2.8 %; EOS ABS # 0.22 K/uL (0-0.5); IG# 0.07 K/uL (0.00-0.02); LYMPH % 8.5 %; LYMPH ABS # 0.67 K/uL (1.2-3.4); MONO ABS # 1.26 K/uL (0.11-0.59); NEUT % 71.5 %; NEUT ABS # 5.65 K/uL (1.4-6.5)
== END | disposition home or self-care (01) ==
LOC: C.LABSPEC 17:48
PROVIDERS: ATTEND Internal Medicine
DX: R18.0 Malignant ascites (principal); K74.60 Unspecified cirrhosis of liver

== ENCOUNTER 2019-01-26 13:47 | Inpatient (IN) ==
[2019-01-26] MEDS ORDERED: MoRPHine SULFATE 4 MG/ML 1 ML CARP\\VIAL IV STA (14:23)
[2019-01-26] MEDS ORDERED: ONDANSETRON INJ 2 MG/ML 2 ML VIAL IV STA (14:23)
[2019-01-26] MEDS ORDERED: DIPHTHERIA/TETANUS/PERTUSSIS 0.5 ML SYR/VIAL IM ONE (14:23)
[2019-01-26] MEDS ORDERED: LIDOCAINE HCL 1% 20 ML VIAL INFIL ONE (14:23)
[2019-01-26 14:30] LABS: Mean Corpuscular Hgb Conc 29.9 g/dL (32-36); Nucleated RBC # (auto) 0.02 K/uL (0-0); Nucleated RBC % (auto) 0.3 %
[2019-01-26 14:39] LABS: Albumin Level 2.1 gm/dl (3.4-5.0); Calcium 7.8 mg/dl (8.5-10.1); Creatinine Clr Calc Pharmacy 48.8 ml/min; Est GFR (Non-African American) 47.4; Potassium 3.7 mmol/L (3.5-5.1)
[2019-01-26 14:41] LABS: Hematocrit (blood only) 27.4 % (42-52); Hemoglobin 8.2 g/dL (14.0-18.0); Mean Corpuscular Volume 75.5 fL (80-100); RDW Coefficient of Variation 21.5 % (11.5-14.5); RDW Standard Deviation 59.5 fL (36.4-46.3); Red Blood Count 3.63 M/uL (4.7-6.1); White Blood Count 6.32 K/uL (4.8-10.8)
[2019-01-26 14:42] LABS: Albumin Globulin Ratio 0.6 (0.9-2); Bilirubin,Total 1.8 mg/dl (0.2-1); Globulin 3.5 gm/dl (2.5-4.0); Total Protein 5.6 gm/dl (6.4-8.2)
[2019-01-26 14:45] LABS: Anisocytosis Present; Basophils # (auto) 0.01 K/uL (0-0.2); Basophils % (auto) 0.2 %; Eosinophils # (auto) 0.08 K/uL (0-0.5); Eosinophils % (auto) 1.3 %; Hypochromasia Present; Immature Granulocytes # (auto) 0.08 K/uL (0.00-0.02); Immature Granulocytes % (auto) 1.3 %; Lymphocytes # (auto) 0.47 K/uL (1.2-3.4); Lymphocytes % (auto) 7.4 %; Mean Platelet Volume 9.8 fL (7.4-10.4); Microcytosis Present; Monocytes # (auto) 1.19 K/uL (0.11-0.59); Monocytes % (auto) 18.8 %; Neutrophils # (auto) 4.49 K/uL (1.4-6.5); Platelet Count 121 K/uL (130-400)
--- NOTE | 2019-01-26 15:16 | XRay Report ---
XR pelvis 1-2V routine CLINICAL HISTORY: trauma eval for injury COMPARISON STUDY: None. FINDINGS: No fracture or dislocation within the pelvis or hips. The bones are osteopenic. Extensive l umbar sacral spine fusion is noted. The hardware appears intact. IMPRESSION: No fracture or dislocation within the pelvis or hips. Electronically signed by: Joseph Beltrán M.D. 01/26/2019 3:15 PM
--- NOTE | 2019-01-26 15:20 | XRay Report ---
XR tibia fibula RT 2V CLINICAL HISTORY: trauma eval for injury. Right lower leg laceration. COMPARISON STUDY: Right ankle 12/06/2017. FINDINGS: No fractures within the right tibia or fibula. Small lucencies within the proximal tibia an d fibula. This is indeterminate but could be due to osteopenia. Diffuse muscular atrophy. No radiopaq ue foreign bodies. Mild soft tissue swelling within the lower leg. IMPRESSION: No fractures within the right lower leg. Electronically signed by: Joseph Beltrán M.D. 01/26/2019 3:18 PM
--- NOTE | 2019-01-26 15:28 | CT Scan Report ---
HEAD CT NONCONTRAST CT DOSE: 1019.47 mGy.cm HISTORY: trauma eval for injury TECHNIQUE: Multiaxial CT images of the head were performed without the use of intravenous contrast. A utomated exposure control was utilized for this study. A dose lowering technique was utilized adheri ng to the principles of ALARA. Comparison: Head CT 05/23/2018. Findings: Opacification of the right maxillary sinus and right sphenoid sinus. Moderate mucosal thick ening within the left maxillary sinus. This has progressed. The mastoid air cells are clear. The calv arium and skull base are intact. There is no mass, hematoma, midline shift, acute infarct. White arie er hypodensity is nonspecific but suggestive of microvascular ischemic change. The ventricles and sul ci demonstrate mild age-related involutional changes. Impression: 1. No acute intracranial abnormality. 2. Progressive opacification of the right maxillary sinus and right sphenoid sinus. Electronically signed by: Joseph Beltrán M.D. 01/26/2019 3:26 PM
--- NOTE | 2019-01-26 15:36 | CT Scan Report ---
CERVICAL SPINE CT CT DOSE: HISTORY: trauma eval for injury TECHNIQUE: Multiaxial CT images of the cervical spine were performed and reformatted in the sagittal and coronal plane without the use of contrast. A dose lowering technique was utilized adhering to th e principles of ALARA. COMPARISON: None. FINDINGS: No fractures. No subluxation. Prevertebral soft tissues and the C1-C2 interval are intact. No pneumothorax. Mild reversal of the normal lordotic curvature within the upper cervical spine. Fatoumata re disc space narrowing from C3 through C7 with endplate osteophytes. This results in multilevel mild central canal narrowing. Multiple small subcentimeter bilateral parotid gland nodules. There is also a dominant soft tissue nodule along the inferior to the right parotid gland which measures 1.8 cm. IMPRESSION: No fractures within the cervical spine. Subcentimeter bilateral parotid gland nodules as well as a 1. 8 cm nodule at the inferior aspect of the right parotid gland. Follow-up nonemergent bilateral paroti d gland ultrasound is recommended for further evaluation. Electronically signed by: Joseph Beltrán M.D. 01/26/2019 3:34 PM
--- NOTE | 2019-01-26 15:39 | CT Scan Report ---
MAXILLOFACIAL CT CT DOSE: HISTORY: trauma eval for injury TECHNIQUE: Multiaxial CT images of the maxillofacial region were performed and reformatted in the cor onal plane without the use of contrast. A dose lowering technique was utilized adhering to the princ ipldany of SHERLEY. COMPARISON: None. FINDINGS: Mildly displaced nasal bone fractures. The mandible, orbital floors, lamina papyracea, pter ygoid plates, zygomatic arches, and skull base appear intact. The globes and retrobulbar fat are main tained. Mild nasal soft tissue swelling. Opacified right maxillary sinus and right sphenoid sinus. Th e right posterior ethmoid air cells are also opacified. Partial opacification of the left maxillary s inus. Bilateral parotid gland nodules are again noted. IMPRESSION: Mildly displaced nasal bone fractures. Additional findings as described above Electronically signed by: Joseph Beltrán M.D. 01/26/2019 3:38 PM
[2019-01-26] MEDS ORDERED: LIDOCAINE/EPINEPH/TETRACAINE 1 EA SYR EXT ONE (16:40)
--- NOTE | 2019-01-26 18:06 | History & Physical Report ---
Date of Service January 26, 2019 Assessment & Plan (1) Generalized weakness: Planning for d/c to [facility] from ED, however no beds available PT/OT pending, outpt workup has already been started CM aware Ammonia level pending Falls, reported as purely mechanical due to pt not wanting assistance with transfers (2) Nasal bone fracture: May need to see ENT on d/c (3) Noninfected skin tear of right leg: Repaired in ED (4) Hypertension: continue home meds (5) Hyperlipidemia: continue home meds (6) Sleep apnea: Noncompliant with CPAP at baseline (7) GERD (gastroesophageal reflux disease): continue home meds (8) Hyperammonemia: Chronic elevation in the setting of cirrhosis Levels pending given noncompliant with lactulose (9) Depression: continue home meds (10) DM type 2 (diabetes mellitus, type 2): SSI PRN + home lantus dose A1c pending (11) Anxiety: continue home meds (12) ARF (acute renal failure): Baseline cr around 1.3 Monitor (13) Cirrhosis: continue home meds Ammonia level pending (14) Sarcoidosis: Family states in remission (15) Steroid long-term use: Uncertain why pt is on prednisone, takes 20mg QD Will continue (16) DVT prophylaxis: Heparin/SCDs for DVT proph History of Present Illness Primary Care Provider: Hu Nielsen MD 64 y/o M c/o weakness and falls. states pt has fallen seven times in the last month or so. These falls are related to pt attempting to ambulate on his own. states that today, they were transferring pt from bedside commode to chair. She turned away from him to situate the supplies they were using and pt attempted to ambulate without assistance. He fell straight forward "flat on his face". He was unable to support himself at all. Pt did not, nor has he recently passed out. states that they saw PCP on 01/21. It was recommended that pt be placed at that time, however they were trying to avoid this. Home PT/OT evals were being done in attempt to trial home therapy first. Pt states that he has pain to his R LE which he landed on during his fall. He states he is lightheaded and family states this is usual for him. He usually has diarrhea related to lactulose use. states he is to take lactulose BID, "but I am happy if I can get him to take even one a day". Pt has a better appetite in the AM, but is generally too fatigued to eat later in the day. He frequently has emesis with meals, although not all meals and not every day. Pt denies any other pain at present. Pt denies fever, SOB, chest pain, abd pain, LE swelling. Family states that pt is generally interactive, but that this has been less s/p pain meds in the ED. Allergies Allergy/AdvReac Type Severity Reaction Status Date / Time celecoxib Allergy Intermediate HIVES Verified 01/26/19 14:59 Penicillins Allergy Intermediate HIVES Verified 01/26/19 14:59 Home Medications Home Medications Medication Instructions Recorded Confirmed Type levalbuterol HCl 1.25 mg INHALATION Q4 PRN #0 MDD 06/17/17 01/26/19 History 7.5 prednisone 20 mg PO DAILY #0 06/17/17 01/26/19 History fluoxetine [Prozac] 40 mg PO QAM #0 07/22/17 01/26/19 History pantoprazole [Protonix] 40 mg PO DAILY #0 07/22/17 01/26/19 History propranolol 5 mg PO DAILY #0 07/22/17 01/26/19 History atorvastatin [Lipitor] 10 mg PO HS #0 tab 12/17/17 01/26/19 History rifaximin 550 mg PO BID #0 tab 12/17/17 01/26/19 History Lantus U-100 Insulin 15 units SUBCUT BID #0 vial 04/26/18 01/26/19 History albuterol sulfate 2.5 mg INHALATION Q4 PRN #0 dose 04/26/18 01/26/19 History albuterol sulfate [Ventolin HFA] 2 puff INHALATION Q6H PRN #0 MDD 04/30/18 01/26/19 History 12 puffs furosemide [Lasix] 40 mg PO BID #0 tab 04/30/18 01/26/19 History mometasone 2 spray INTRANASAL DAILY PRN #0 04/30/18 01/26/19 History pentoxifylline 400 mg PO BID #0 tab 04/30/18 01/26/19 History spironolactone [Aldactone] 50 mg PO DAILY #0 tab 04/30/18 01/26/19 History lactulose 15 mg PO BID 10/15/18 01/26/19 History potassium chloride 10 meq PO BID 10/15/18 01/26/19 History promethazine 25 mg PO Q6H PRN 10/15/18 01/26/19 History insulin aspart U-100 [Novolog 0 sliding scale dose SUBCUT UD 11/12/18 01/26/19 History PenFill U-100 Insulin] carboxymethylcellulose sodium 1 drp OPB BID 01/26/19 01/26/19 History [Refresh Celluvisc] simethicone [Gas-X Extra Strength] 125 mg PO UD PRN 01/26/19 01/26/19 History sulfamethoxazole-trimethoprim 1 tab PO 3XWK 01/26/19 01/26/19 History [Bactrim DS] Past Med/Surg History Medical History Abdominal pain (Acute) Abscess in epidural space of lumbar spine (Acute) Altered mental status (Acute) Asthma (Acute) Diabetic autonomic neuropathy (Acute) Diarrhea (Acute) Fall in home (Acute) Fever (Acute) Fungemia (Acute) Fusion of spine (Acute) GERD (gastroesophageal reflux disease) (Acute) GI bleed (Acute) Gram negative septicemia (Acute) Hepatic encephalopathy (Acute) Hyperammonemia (Acute) Hyperlipidemia (Acute) Hypertension (Acute) Hypertension (Acute) Hypokalemia (Acute) Hypoxia (Acute) Immunocompromised (Acute) Infection of lumbar spine (Acute) Kidney stones (Acute) Lactic acidosis (Acute) Left leg cellulitis (Acute) Lumbar compression fracture (Acute) Lumbar disc herniation with radiculopathy (Acute) Lumbar stenosis with neurogenic claudication (Acute) Marijuana smoker (Acute) Meningitis (Acute) Obesity (Acute) Open wound of LLQ of abdominal wall w/o penentrat into periton cavity (Acute) Peritonitis (acute) generalized (Acute) Pneumonia (Acute) Post op infection (Acute) Sarcoidosis (Acute) Sepsis (Acute) Septal defect (Acute) Septic shock (Acute) Severe sepsis (Acute) Sleep apnea (Acute) Tenosynovitis, de Quervain (Acute) Thrombocytopenia (Acute) Vomiting (Acute) Alcoholic cirrhosis Surgical History History of carpal tunnel release (Acute) History of cataract surgery (Acute) History of herniorrhaphy (Acute) History of lithotripsy (Acute) History of repair of rotator cuff (Acute) Family History Father Heart attack Social History Preferred Language: Sami Beliefs That Will Affect Care: None marital status: Current Living Situation: Spouse Feels Safe at Home: Yes Smoking Status: Never smoker Hx Alcohol Use: Yes Hx Substance Use: Yes (medical marijuana) Review of Systems Pertinent positives and negatives reviewed in HPI--all others negative Physical Exam Vital Signs (Past 24 Hours): Last Vital Signs Temp 36.7 C 01/26/19 13:57 Pulse 93 H 01/26/19 13:57 Resp 20 01/26/19 13:57 BP 126/77 01/26/19 13:57 Pulse Ox 93 01/26/19 15:17 Constitutional: WD/WN, vitals as above Eyes: R sided conjunctival hemorrhage with weeping. Bruising noted inferior to orbit ENMT: Bruising noted along nasal bridge Neck: normal visual inspection and trachea midline Respiratory: normal respiratory effort, lungs clear to auscultation Cardiovascular: Rate/Rhythm: regular rate and regular rhythm Gastrointestinal (Abdomen): Inspection/Auscultation: abdomen not distended Percussion/Palpation: abdomen soft; abdomen nontender Musculoskeletal: Head/Neck/Chest: normocephalic and head atraumatic negative for edema, peripheral pulses intact Skin: no rashes, warm and dry Bruising noted diffusely Telangectasias diffuse and c/w cirrhosis R skin lac just inferior to patella Neurologic: awake; not confused Speech / Cognition: normal speech Awakens to answer questions but falls asleep easily and need re-aroused Psychiatric: A+Ox3, euthymic affect Results & Data Diagnostic Findings CT head: R sided maxillary/sphenoid sinusitis CT facial--nasal fx CT spine: neg for fracture, noted for b/l parotid gland nodules and recs for f/u US Pelvic XR: neg for acute R tib/fib XR: neg for acute Code Status & VTE Plan Code Status Living will states DNR/DNI states pt would want chest compressions but not intubation at this time. "I would override this to intubate if I could." VTE Prophylaxis Plan VTE Prophylaxis will be ordered: Yes (1) Nasal bone fracture Encounter type: initial encounter Fracture type: closed Qualified Code(s): S02.2XXA - Fracture of nasal bones, initial encounter for closed fracture (2) Noninfected skin tear of right leg Encounter type: initial encounter Qualified Code(s): S81.811A - Laceration without foreign body, right lower leg, initial encounter
[2019-01-26] MEDS ORDERED: GLUCOSE 10 TABS/TUBE PO PRN (18:50)
[2019-01-26] MEDS ORDERED: ALBUTEROL 0.083% NEBU SOLN 3 ML VIAL INH PRN (18:50)
[2019-01-26] MEDS ORDERED: ALBUTEROL HFA 8 GM INHALER INH PRN (18:50)
[2019-01-26] MEDS ORDERED: SIMETHICONE 125 MG PO PRN (18:50)
[2019-01-26] MEDS ORDERED: GLUCAGON FOR INJ 1 MG VIAL SQ PRN (18:50)
[2019-01-26] MEDS ORDERED: FLUTICASONE PROPIONATE NA SPR 16 GM BTL NAE PRN (18:50)
[2019-01-26] MEDS ORDERED: LEVALBUTEROL HCL 1.25 MG/3 ML NEB INH PRN (18:50)
[2019-01-26] MEDS ORDERED: DEXTROSE 50% 50 ML SYRINGE IV PRN (18:50)
[2019-01-26] MEDS ORDERED: MAGNESIUM HYDROXIDE SUSP 30 ML UDC PO PRN (18:50)
[2019-01-26] MEDS ORDERED: GLUCOSE 40% GEL 15 GM TUBE PO PRN (18:50)
--- NOTE | 2019-01-26 19:35 | Emergency Department Note ---
Entered by Tricia Sauceda acting as a scribe for Americo Lemus MD History of Present Illness General Chief complaint: Fall Stated complaint: fall/ facial injury Source: patient Limitations: no limitations History of Present Illness Provider complaint: fall Onset (ago): hour(s) Location: head and right Maximum Pain Intensity: 7 Associated symptoms: + denies other symptoms (blurry vision), + headaches and + other (+neck pain, +right knee pain, +right hip pain) Treatments prior to arrival: none The patient is a 64 year old male who presents to the Emergency Room with complaints of a fall that occurred just prior to arrival. The patient states that he was on his bedside toilet and states that he slide off, fell forward, and hit his head. The patient is unsure if he had a syncopal episode after he fell. The patient states that he has a headache, right knee pain, neck pain, right hip pain, but denies any blurry vision or double vision. The patient states that he thinks he is not up-to-date with his Tetanus shot. The patient denies being on any blood thinners. Home Medications Home Medications Medication Instructions Recorded Confirmed Type levalbuterol HCl 1.25 mg INHALATION Q4 PRN #0 MDD 06/17/17 01/26/19 History 7.5 prednisone 20 mg PO DAILY #0 06/17/17 01/26/19 History fluoxetine [Prozac] 40 mg PO QAM #0 07/22/17 01/26/19 History pantoprazole [Protonix] 40 mg PO DAILY #0 07/22/17 01/26/19 History propranolol 5 mg PO DAILY #0 07/22/17 01/26/19 History atorvastatin [Lipitor] 10 mg PO HS #0 tab 12/17/17 01/26/19 History rifaximin 550 mg PO BID #0 tab 12/17/17 01/26/19 History Lantus U-100 Insulin 15 units SUBCUT BID #0 vial 04/26/18 01/26/19 History albuterol sulfate 2.5 mg INHALATION Q4 PRN #0 dose 04/26/18 01/26/19 History albuterol sulfate [Ventolin HFA] 2 puff INHALATION Q6H PRN #0 MDD 04/30/18 01/26/19 History 12 puffs furosemide [Lasix] 40 mg PO BID #0 tab 04/30/18 01/26/19 History mometasone 2 spray INTRANASAL DAILY PRN #0 04/30/18 01/26/19 History pentoxifylline 400 mg PO BID #0 tab 04/30/18 01/26/19 History spironolactone [Aldactone] 50 mg PO DAILY #0 tab 04/30/18 01/26/19 History lactulose 15 mg PO BID 10/15/18 01/26/19 History potassium chloride 10 meq PO BID 10/15/18 01/26/19 History promethazine 25 mg PO Q6H PRN 10/15/18 01/26/19 History insulin aspart U-100 [Novolog 0 sliding scale dose SUBCUT UD 11/12/18 01/26/19 History PenFill U-100 Insulin] carboxymethylcellulose sodium 1 drp OPB BID 01/26/19 01/26/19 History [Refresh Celluvisc] simethicone [Gas-X Extra Strength] 125 mg PO UD PRN 01/26/19 01/26/19 History sulfamethoxazole-trimethoprim 1 tab PO 3XWK 01/26/19 01/26/19 History [Bactrim DS] Allergies Allergy/AdvReac Type Severity Reaction Status Date / Time celecoxib Allergy Intermediate HIVES Verified 01/26/19 14:59 Penicillins Allergy Intermediate HIVES Verified 01/26/19 14:59 Past Med/Surg History Medical History Abdominal pain (Acute) Abscess in epidural space of lumbar spine (Acute) Altered mental status (Acute) Asthma (Acute) Diabetic autonomic neuropathy (Acute) Diarrhea (Acute) Fall in home (Acute) Fever (Acute) Fungemia (Acute) Fusion of spine (Acute) GERD (gastroesophageal reflux disease) (Acute) GI bleed (Acute) Gram negative septicemia (Acute) Hepatic encephalopathy (Acute) Hyperammonemia (Acute) Hyperlipidemia (Acute) Hypertension (Acute) Hypertension (Acute) Hypokalemia (Acute) Hypoxia (Acute) Immunocompromised (Acute) Infection of lumbar spine (Acute) Kidney stones (Acute) Lactic acidosis (Acute) Left leg cellulitis (Acute) Lumbar compression fracture (Acute) Lumbar disc herniation with radiculopathy (Acute) Lumbar stenosis with neurogenic claudication (Acute) Marijuana smoker (Acute) Meningitis (Acute) Obesity (Acute) Open wound of LLQ of abdominal wall w/o penentrat into periton cavity (Acute) Peritonitis (acute) generalized (Acute) Pneumonia (Acute) Post op infection (Acute) Sarcoidosis (Acute) Sepsis (Acute) Septal defect (Acute) Septic shock (Acute) Severe sepsis (Acute) Sleep apnea (Acute) Tenosynovitis, de Quervain (Acute) Thrombocytopenia (Acute) Vomiting (Acute) Alcoholic cirrhosis Surgical History History of carpal tunnel release (Acute) History of cataract surgery (Acute) History of herniorrhaphy (Acute) History of lithotripsy (Acute) History of repair of rotator cuff (Acute) Family History Father Heart attack Social History Preferred Language: Welsh Communication Ability: Effective Hydrographic Surveyor Required: No Beliefs That Will Affect Care: None marital status: Current Living Situation: Spouse Other Information That Helps Us Care for You: No Feels Safe at Home: Yes Safety Concerns: Feels Safe At This Time Smoking Status: Never smoker Hx Alcohol Use: No Hx Substance Use: No Review of Systems See HPI for pertinent positives & negatives. and A total of 10 systems reviewed and were otherwise negative Physical Exam Vital Signs Vital Signs - 24 hr 01/26/19 13:57 01/26/19 15:17 01/26/19 18:32 Temperature 36.7 C 36.7 C Temperature Source Oral Oral Sepsis Recent Fever Within 48 Hours No Sepsis New/Unexplained Change in Mental Status No Sepsis Action Taken by Nursing No Action Required Pulse Rate 93 H Pulse Rate [Right Finger] 84 Respiratory Rate 20 18 Respiratory Effort / Characteristics Non-Labored Spontaneous Non-Labored Spontaneous Respiratory Depth Normal Normal Respiratory Pattern Regular Regular Blood Pressure 126/77 Blood Pressure [Right Arm] 116/75 Blood Pressure Mean 93 Blood Pressure Mean [Right Arm] 88 Blood Pressure Position [Right Arm] Lying Pulse Oximetry 97 93 93 Oxygen Delivery Method Room Air Room Air Room Air Constitutional: Vital signs reviewed. Eyes: Pupils are equal round reactive to light. Conjunctiva are noninjected. Diffuse subhemorrage to right globe, no hyphema, negative Wendy's Test, minimal fluorescein. ENT: Pharynx is clear without erythema or exudate. Mucous membranes are moist. Mild midline tenderness to cervical spine without step-off. 1 cm laceration to the bridge of nose, no septal hematoma, no active bleeding. Respiratory: Clear to auscultation bilaterally. Breath sounds are equal bilaterally. Cardiovascular: Regular rate and rhythm. No rubs or gallops. GI: Soft, nondistended and nontender. Bowel sounds are present. Large left lateral hernia. Musculoskeletal: No peripheral edema. No lower extremity tenderness. Integumentary: No cyanosis. Large skin tear to the right anterior lower leg, no bony tenderness to hips or femurs. Neurologic: The patient is awake and alert. Cranial nerves II-XII are intact. Motor is 5 out of 5 all extremities. Sensation is intact to light touch all extremities. Normal speech. Psychiatric: Normal affect. GCS 15. Course 1412: Past medical records reviewed. The patient was evaluated in room A3, and a complete history and physical examination were performed. 1535: I checked on and updated the patient on his results. 1610: I checked on and updated the patient on his results. The patient is barely able to get out of bed. The patient has an IOP of 20 in his right eye. The patient agrees to hospitalization due to weakness and ambulatory dysfunction. 1620: I [facility] the [facility] who will evaluate the patient for further hospitalization. Consultations Consultation #1[facility] Time: 16:20 Administered Medications Discontinued Medications Diphtheria/Pertussis/Tetanus Vacc (Adacel) 0.5 ml IM .ONCE ONE Stop: 01/26/19 14:24 Last Admin: 01/26/19 14:51 Dose: 0.5 ml Documented by: [id number] Lidocaine (Let Gel 4%/1:100/0.5%) Confirm Administered Dose 2 ea EXT .STK-MED ONE Stop: 01/26/19 16:41 Last Admin: 01/26/19 16:45 Dose: 2 ea Documented by: [id number] Lidocaine HCl (Xylocaine 1% (Local)) 10 ml INFIL NOW ONE Stop: 01/26/19 14:24 Last Admin: 01/26/19 15:16 Dose: 10 ml Documented by: [id number] Morphine Sulfate (Morphine Sulfate) 2 mg IV NOW STA Stop: 01/26/19 14:24 Last Admin: 01/26/19 14:52 Dose: 2 mg Documented by: [id number] Ondansetron HCl (Zofran) 4 mg IV NOW STA Stop: 01/26/19 14:24 Last Admin: 01/26/19 14:52 Dose: 4 mg Documented by: [id number] Medical Decision Making Differential Diagnosis Differentials include ICH, concussion, facial fracture, globe rupture, corneal abrasion, and leg fracture. Medical Records Attestation: I reviewed the patient's medical records. Home Medications Current Medication List: was personally reviewed by me Laboratory Data Attestation: I reviewed the patient's lab results. Result diagrams: 01/26/19 14:10 01/26/19 14:10 Lab Results 01/26/19 01/26/19 Range/Units 14:10 14:10 WBC 6.32 (4.8-10.8) K/uL RBC 3.63 L (4.7-6.1) M/uL Hgb 8.2 L (14.0-18.0) g/dL Hct 27.4 L (42-52) % MCV 75.5 L (80-100) fL MCH 22.6 L (25-34) pg MCHC 29.9 L (32-36) g/dL RDW Std Deviation 59.5 H (36.4-46.3) fL RDW Coeff of Curt 21.5 H (11.5-14.5) % Plt Count 121 L (130-400) K/uL MPV 9.8 (7.4-10.4) fL Immature Gran % (Auto) 1.3 % Neut % (Auto) 71.0 % Lymph % (Auto) 7.4 % Buchanan % (Auto) 18.8 % Eos % (Auto) 1.3 % Baso % (Auto) 0.2 % Immature Gran # (Auto) 0.08 H (0.00-0.02) K/uL Neut # (Auto) 4.49 (1.4-6.5) K/uL Lymph # (Auto) 0.47 L (1.2-3.4) K/uL Buchanan # (Auto) 1.19 H (0.11-0.59) K/uL Eos # (Auto) 0.08 (0-0.5) K/uL Baso # (Auto) 0.01 (0-0.2) K/uL Absolute Nucleated RBC 0.02 H (0-0) K/uL Nucleated RBC % (auto) 0.3 % Hypochromasia Present Anisocytosis Present Microcytosis Present Sodium 137 (136-145) mmol/L Potassium 3.7 (3.5-5.1) mmol/L Chloride 102 (98-107) mmol/L Carbon Dioxide 28 (21-32) mmol/L Anion Gap 7.0 (3-11) BUN 30 H (7-18) mg/dl Creatinine 1.51 H (0.6-1.4) mg/dl Est Cr Clr Drug Dosing 48.8 ml/min Est GFR ( Amer) 55.0 Est GFR (Non-Af Amer) 47.4 BUN/Creatinine Ratio 20.0 (10-20) Glucose 156 H (70-99) mg/dl Calcium 7.8 L (8.5-10.1) mg/dl Total Bilirubin 1.8 H (0.2-1) mg/dl AST 39 H (15-37) U/L ALT 33 (12-78) U/L Alkaline Phosphatase 321 H (45-117) U/L Total Protein 5.6 L (6.4-8.2) gm/dl Albumin 2.1 L (3.4-5.0) gm/dl Globulin 3.5 (2.5-4.0) gm/dl Albumin/Globulin Ratio 0.6 L (0.9-2) Imaging Data Radiologist's Impression: Radiology results as stated below per my review and the radiologist's interpretation: CERVICAL SPINE CT CT DOSE: HISTORY: trauma eval for injury TECHNIQUE: Multiaxial CT images of the cervical spine were performed and reformatted in the sagittal and coronal plane without the use of contrast. A dose lowering technique was utilized adhering to the principles of ALARA. COMPARISON: None. FINDINGS: No fractures. No subluxation. Prevertebral soft tissues and the C1-C2 interval are intact. No pneumothorax. Mild reversal of the normal lordotic curvature within the upper cervical spine. Severe disc space narrowing from C3 through C7 with endplate osteophytes. This results in multilevel mild central canal narrowing. Multiple small subcentimeter bilateral parotid gland nodules. There is also a dominant soft tissue nodule along the inferior to the right parotid gland which measures 1.8 cm. IMPRESSION: No fractures within the cervical spine. Subcentimeter bilateral parotid gland nodules as well as a 1.8 cm nodule at the inferior aspect of the right parotid gland. Follow-up nonemergent bilateral parotid gland ultrasound is recommended for further evaluation. Electronically signed by: Joseph Beltrán M.D. 01/26/2019 3:[address] DOSE: HISTORY: trauma eval for injury TECHNIQUE: Multiaxial CT images of the maxillofacial region were performed and reformatted in the coronal plane without the use of contrast. A dose lowering technique was utilized adhering to the principles of ALARA. COMPARISON: None. FINDINGS: Mildly displaced nasal bone fractures. The mandible, orbital floors, lamina papyracea, pterygoid plates, zygomatic arches, and skull base appear intact. The globes and retrobulbar fat are maintained. Mild nasal soft tissue swelling. Opacified right maxillary sinus and right sphenoid sinus. The right posterior ethmoid air cells are also opacified. Partial opacification of the left maxillary sinus. Bilateral parotid gland nodules are again noted. IMPRESSION: Mildly displaced nasal bone fractures. Additional findings as described above Electronically signed by: Joseph Beltrán M.D. 01/26/2019 3:38 PM XR pelvis 1-2V routine CLINICAL HISTORY: trauma eval for injury COMPARISON STUDY: None. FINDINGS: No fracture or dislocation within the pelvis or hips. The bones are osteopenic. Extensive lumbar sacral spine fusion is noted. The hardware appears intact. IMPRESSION: No fracture or dislocation within the pelvis or hips. Electronically signed by: Joseph Beltrán M.D. 01/26/2019 3:15 PM XR tibia fibula RT 2V CLINICAL HISTORY: trauma eval for injury. Right lower leg laceration. COMPARISON STUDY: Right ankle 12/06/2017. FINDINGS: No fractures within the right tibia or fibula. Small lucencies within the proximal tibia and fibula. This is indeterminate but could be due to osteopenia. Diffuse muscular atrophy. No radiopaque foreign bodies. Mild soft tissue swelling within the lower leg. IMPRESSION: No fractures within the right lower leg. Electronically signed by: Joseph Beltrán M.D. 01/26/2019 3:[address]AST CT DOSE: 1019.47 mGy.cm HISTORY: trauma eval for injury TECHNIQUE: Multiaxial CT images of the head were performed without the use of intravenous contrast. Automated exposure control was utilized for this study. A dose lowering technique was utilized adhering to the principles of ALARA. Comparison: Head CT 05/23/2018. Findings: Opacification of the right maxillary sinus and right sphenoid sinus. Moderate mucosal thickening within the left maxillary sinus. This has progressed. The mastoid air cells are clear. The calvarium and skull base are intact. There is no mass, hematoma, midline shift, acute infarct. White matter hypodensity is nonspecific but suggestive of microvascular ischemic change. The ventricles and sulci demonstrate mild age-related involutional changes. Impression: 1. No acute intracranial abnormality. 2. Progressive opacification of the right maxillary sinus and right sphenoid sinus. Electronically signed by: Joseph Beltrán M.D. 01/26/2019 3:26 PM ECG Data Attestation: I personally reviewed and interpreted this ECG as follows: Indication: other (fall) Rate (beats per minute): 94 Rhythm: normal sinus Findings: + LAFB; no ST elevation Blood Pressure Blood Pressure Findings: Normal blood pressure Head Trauma GCS Score: 15 MDM Narrative I did perform a limited focused review of portions of the patient's old chart on the electronic medical record. The patient has had no recent pertinent visits to this hospital. I did evaluate the patient as noted above. The patient states he had a mechanical fall. He did hit his face on the ground and does not know if he passed out afterwards. He does complain of pain mostly to the right leg where he has a large skin tear. He also complains of headache and neck pain and some hip pain although he has full range of motion of that hip. He is neurologically intact. His tetanus is not up-to-date and so he was given Adacel IM IV access was established. I did treat him with IV morphine and Zofran for his pain. The patient was placed on a continuous cardiac cath lab radiology technologist. I did order and personally review the patient's 12-lead EKG and x-rays y as described above. There is no evidence of acute ischemia. He has no fractures or dislocations on his x-rays. I did order and review the patient's blood work as noted in the electronic medical record. He has chronic anemia and an elevated creatinine. I did order CTs of the head and cervical spine as well as facial bones. I did review the images myself as well as the radiology report as described above. There is no evidence of acute intracranial abnormality. He does have nasal fractures. I did discuss the test results with the patient. He does have a right subconjunctival hemorrhage but there is no evidence of hyphema or globe rupture. He denies any visual complaints. I did check his IOP which was 20 in the right eye. The patient is extremely weak at this time. He is unable to get up without assistance and so he will require hospitalization. I did discuss the case with the hospitalist and foster care case manager. His wounds were addressed by the ANJALI Solis. Impression & Plan Generalized weakness, Ambulatory dysfunction, Nasal bone fracture, Noninfected skin tear of right leg, Laceration of nose Discharge Plan Visit Data *Final* Discharge Date/Time: 01/26/19 18:57 Chief Complaint: Fall Stated Complaint: fall/ facial injury ED Provider: Americo Lemus Discharge Problem: Generalized weakness, Ambulatory dysfunction, Nasal bone fracture, Noninfected skin tear of right leg, Laceration of nose Patient Disposition: Admitted As Inpatient Discharge Instructions Interventions: ED Discharge Assessment Last Done: 01/26/19 18:57 Discharge Problem: Nasal bone fracture Qualifiers: Encounter type: initial encounter Fracture type: closed Qualified Code(s): S02.2XXA - Fracture of nasal bones, initial encounter for closed fracture Noninfected skin tear of right leg Qualifiers: Encounter type: initial encounter Qualified Code(s): S81.811A - Laceration without foreign body, right lower leg, initial encounter Laceration of nose Qualifiers: Encounter type: initial encounter Qualified Code(s): S01.21XA - Laceration without foreign body of nose, initial encounter The scribe's documentation has been prepared under my direction and personally reviewed by me in its entirety. I confirm that the note above accurately reflects all work, treatment, procedures, and medical decision making performed by me.
[2019-01-26] MEDS: FUROSEMIDE 40 MG TAB PO SCH (19:56)
[2019-01-26 20:05] LABS: INR 1.2 (0.9-1.1); Prothrombin Time 12.4 Seconds (9.0-12.0)
[2019-01-26] MEDS: RIFAXIMIN 550 MG TABLET PO SCH (20:30)
[2019-01-26] MEDS: POTASSIUM CHLORIDE 10 MEQ TABCR PO SCH (20:30)
[2019-01-26] MEDS: PENTOXIFYLLINE 400MG EXT REL TAB PO SCH (20:31)
[2019-01-26] MEDS: ATORVASTATIN 10 MG TAB PO SCH (20:31)
[2019-01-26] MEDS ORDERED: MoRPHine SULFATE 2 MG/ML CARP ONE (20:45)
[2019-01-26] MEDS: ACETAMINOPHEN 325 MG TAB PO PRN (20:49)
[2019-01-26] MEDS: MoRPHine SULFATE 2 MG/ML CARP IV PRN (20:50)
[2019-01-26] MEDS: ARTIFICIAL TEARS OPB SCH (20:52)
[2019-01-26] MEDS: INSULIN GLARGINE SOLOSTAR 100 UNITS/ML 3 ML PEN SQ SCH (20:54)
[2019-01-26] MEDS ORDERED: SIMETHICONE 80 MG CHEW PO PRN ×2 (20:55→21:00)
[2019-01-26] MEDS: INSULIN ASPART 100 UNITS/ML 3 ML PEN SC SCH (20:57)
[2019-01-26] MEDS: HEPARIN SOD 5,000 UNIT/0.5 ML VIAL SQ SCH (21:30)
[2019-01-26] MEDS: LACTULOSE SYRUP 10 GM/15 ML BTL 473 ML PO SCH (21:36)
[2019-01-27] MEDS: HEPARIN SOD 5,000 UNIT/0.5 ML VIAL SQ SCH ×4 (05:46→20:44)
[2019-01-27 07:08] LABS: Mean Corpuscular Hgb Conc 30.1 g/dL (32-36)
[2019-01-27 07:15] LABS: Hematocrit (blood only) 25.6 % (42-52); Hemoglobin 7.7 g/dL (14.0-18.0); Mean Corpuscular Volume 74.4 fL (80-100); RDW Coefficient of Variation 21.5 % (11.5-14.5); RDW Standard Deviation 58.5 fL (36.4-46.3); Red Blood Count 3.44 M/uL (4.7-6.1); White Blood Count 4.28 K/uL (4.8-10.8)
[2019-01-27 07:33] LABS: BUN Creatinine Ratio 21.4 (10-20); Creatinine Clr Calc Pharmacy 50.1 ml/min; Est GFR (African American) 56.8; Magnesium 2.2 mg/dl (1.8-2.4)
[2019-01-27 07:34] LABS: Phosphorus 3.6 mg/dl (2.5-4.9)
[2019-01-27 07:47] LABS: Mean Platelet Volume 9.8 fL (7.4-10.4); Platelet Count 92 K/uL (130-400)
[2019-01-27 07:48] LABS: Anisocytosis Present; Basophils # (auto) 0.01 K/uL (0-0.2); Basophils % (auto) 0.2 %; Immature Granulocytes # (auto) 0.04 K/uL (0.00-0.02); Immature Granulocytes % (auto) 0.9 %; Lymphocytes # (auto) 0.47 K/uL (1.2-3.4); Microcytosis Present; Monocytes # (auto) 0.52 K/uL (0.11-0.59); Monocytes % (auto) 12.1 %; Neutrophils # (auto) 3.24 K/uL (1.4-6.5); Neutrophils % (auto) 75.8 %
[2019-01-27] MEDS: predniSONE 20 MG TAB PO SCH (09:06)
[2019-01-27] MEDS: POTASSIUM CHLORIDE 10 MEQ TABCR PO SCH ×2 (09:06→20:41)
[2019-01-27] MEDS: ARTIFICIAL TEARS OPB SCH ×2 (09:06→20:42)
[2019-01-27] MEDS: PANTOprazole 40 MG TAB PO SCH (09:06)
[2019-01-27] MEDS: SPIRONOLACTONE 25 MG TAB PO SCH (09:06)
[2019-01-27] MEDS: LACTULOSE SYRUP 10 GM/15 ML BTL 473 ML PO SCH ×2 (09:06→20:41)
[2019-01-27] MEDS: PROPRANOLOL HCL 10 MG TAB PO SCH (09:06)
[2019-01-27] MEDS: PENTOXIFYLLINE 400MG EXT REL TAB PO SCH ×2 (09:07→20:41)
[2019-01-27] MEDS: FUROSEMIDE 40 MG TAB PO SCH ×2 (09:07→15:57)
[2019-01-27] MEDS: RIFAXIMIN 550 MG TABLET PO SCH ×2 (09:07→20:41)
[2019-01-27] MEDS: FLUOXETINE HCL 20 MG CAP PO SCH (09:07)
[2019-01-27] MEDS: INSULIN ASPART 100 UNITS/ML 3 ML PEN SC SCH ×4 (09:07→21:03)
[2019-01-27] MEDS: INSULIN GLARGINE SOLOSTAR 100 UNITS/ML 3 ML PEN SQ SCH ×2 (09:07→21:04)
[2019-01-27] MEDS: ACETAMINOPHEN 325 MG TAB PO PRN (13:03)
[2019-01-27] MEDS: MoRPHine SULFATE 2 MG/ML CARP IV PRN (15:57)
--- NOTE | 2019-01-27 16:45 | Family Medicine Progress Note ---
Date of Service January 27, 2019 Assessment & Plan (1) Generalized weakness: Admitting team had planned for d/c to [facility] from ED, however no beds available PT/OT pending Pt allegedly had been trying to avoid placement with home PT/OT CM aware Ammonia level 55 Falls, reported as purely mechanical due to pt not wanting assistance with transfers (2) Hyperammonemia: Chronic elevation in setting of longstanding alcoholic cirrhosis Reportedly noncompliant with lactulose, taking once per day if garima. MELD score of 14 (3) Nasal bone fracture: Recommend ENT follow up on discharge (4) Noninfected skin tear of right leg: Repaired in ED Routine wound care (5) Hypertension: continue home meds (6) Hyperlipidemia: continue home meds (7) Sleep apnea: Noncompliant with CPAP at baseline (8) GERD (gastroesophageal reflux disease): continue home meds (9) Depression: continue home meds (10) DM type 2 (diabetes mellitus, type 2): ISS + lantus dose A1c pending, previous of 6.9% in 10/07 (11) Anxiety: continue home meds (12) Cirrhosis: continue home meds Ammonia level 55 (13) Sarcoidosis: Family states in remission (14) Steroid long-term use: Uncertain why pt is on prednisone, no info in [employer] as pt sees Dr. Diaz -Continue 20mg daily (15) DVT prophylaxis: Heparin/SCDs for DVT proph CODE: [facility] Dispo: Awaiting placement. Discuss with CM Supervising Physician Co-Signing Physician Notes I saw and examined the patient independently. I discussed the plan of care with the resident with the following summary/exceptions: 64yo M w/ hx of alcoholic cirrhosis who presents with multiple falls at home, plan for rehab. Today, he reports being at his baseline. Has multiple bruises/cuts from falling at home. Right eye with bruising and conjunctival hemorrhage. However, feels well, and wants to go to rehab when able. 1) Falls/weakness - Likely multifactorial from cirrhosis/chronic illnesses/neuropathy from DM. Per patient, mechanical in nature. Will get PT/OT/CM to help with rehab. Will get B12 level. 2) Cirrhosis - No major concerns for decompensation. Continue home meds. 3) DM - Continue home Lantus and SSI. Subjective Patient reports he feels sore this morning but otherwise has no complaints. Review of Systems All systems reviewed & are unremarkable except as noted in HPI & below Constitutional: + body aches Eyes: + eye pain (hematoma in R eye) Ear, Nose, Mouth, Throat: + nasal obstruction and + facial pain Respiratory: no cough and no dyspnea Cardiovascular: no chest pain Gastrointestinal: no abdominal pain Physical Exam Vital Signs (Past 24 Hours): Last Vital Signs Temp 36.8 C 01/27/19 07:19 Pulse 71 01/27/19 07:19 Resp 18 01/27/19 07:19 BP 102/67 01/27/19 07:19 Pulse Ox 98 01/27/19 07:19 Constitutional: WD/WN, vitals as above Eyes: + periorbital abnormality (Bruising on inferior orbital rim, hematoma within R sclera) Exopthalmos ENMT: Nose: + septum abnormality Neck: normal visual inspection and trachea midline Respiratory: normal respiratory effort, lungs clear to auscultation Cardiovascular: Rate/Rhythm: regular rate and regular rhythm Gastrointestinal (Abdomen): Inspection/Auscultation: abdomen not distended Percussion/Palpation: abdomen soft and + hernia (LLQ); abdomen nontender Musculoskeletal: Head/Neck/Chest: normocephalic and head atraumatic Skin: no rashes, warm and dry Neurologic: awake; not confused Speech / Cognition: normal speech Psychiatric: A+Ox3, euthymic affect Results & Data Laboratory Results 01/27/19 01/27/19 01/27/19 Range/Units 11:59 07:41 06:40 WBC (4.8-10.8) K/uL RBC (4.7-6.1) M/uL Hgb (14.0-18.0) g/dL Hct (42-52) % MCV (80-100) fL MCH (25-34) pg MCHC (32-36) g/dL RDW Std Deviation (36.4-46.3) fL RDW Coeff of Curt (11.5-14.5) % Plt Count (130-400) K/uL MPV (7.4-10.4) fL Immature Gran % (Auto) % Neut % (Auto) % Lymph % (Auto) % Kay % (Auto) % Eos % (Auto) % Baso % (Auto) % Immature Gran # (Auto) (0.00-0.02) K/uL Neut # (Auto) (1.4-6.5) K/uL Lymph # (Auto) (1.2-3.4) K/uL Kay # (Auto) (0.11-0.59) K/uL Eos # (Auto) (0-0.5) K/uL Baso # (Auto) (0-0.2) K/uL Anisocytosis Microcytosis PT (9.0-12.0) Seconds INR (0.9-1.1) Sodium (136-145) mmol/L Potassium (3.5-5.1) mmol/L Chloride (98-107) mmol/L Carbon Dioxide (21-32) mmol/L Anion Gap (3-11) BUN (7-18) mg/dl Creatinine (0.6-1.4) mg/dl Est Cr Clr Drug Dosing ml/min Est GFR ( Amer) Est GFR (Non-Af Amer) BUN/Creatinine Ratio (10-20) Glucose (70-99) mg/dl POC Glucose 195 H 146 H (70-99) Estimat Average Glucose Pending Hemoglobin A1c Pending Calcium (8.5-10.1) mg/dl Phosphorus (2.5-4.9) mg/dl Magnesium (1.8-2.4) mg/dl Ammonia (11-32) umol/L 01/27/19 01/27/19 01/26/19 Range/Units 06:40 06:40 20:24 WBC 4.28 L (4.8-10.8) K/uL RBC 3.44 L (4.7-6.1) M/uL Hgb 7.7 L (14.0-18.0) g/dL Hct 25.6 L (42-52) % MCV 74.4 L (80-100) fL MCH 22.4 L (25-34) pg MCHC 30.1 L (32-36) g/dL RDW Std Deviation 58.5 H (36.4-46.3) fL RDW Coeff of Curt 21.5 H (11.5-14.5) % Plt Count 92 L (130-400) K/uL MPV 9.8 (7.4-10.4) fL Immature Gran % (Auto) 0.9 % Neut % (Auto) 75.8 % Lymph % (Auto) 11.0 % Kay % (Auto) 12.1 % Eos % (Auto) 0.0 % Baso % (Auto) 0.2 % Immature Gran # (Auto) 0.04 H (0.00-0.02) K/uL Neut # (Auto) 3.24 (1.4-6.5) K/uL Lymph # (Auto) 0.47 L (1.2-3.4) K/uL Kay # (Auto) 0.52 (0.11-0.59) K/uL Eos # (Auto) 0.00 (0-0.5) K/uL Baso # (Auto) 0.01 (0-0.2) K/uL Anisocytosis Present Microcytosis Present PT (9.0-12.0) Seconds INR (0.9-1.1) Sodium 137 (136-145) mmol/L Potassium 4.0 (3.5-5.1) mmol/L Chloride 103 (98-107) mmol/L Carbon Dioxide 28 (21-32) mmol/L Anion Gap 6.0 (3-11) BUN 31 H (7-18) mg/dl Creatinine 1.47 H (0.6-1.4) mg/dl Est Cr Clr Drug Dosing 50.1 ml/min Est GFR ( Amer) 56.8 Est GFR (Non-Af Amer) 49.0 BUN/Creatinine Ratio 21.4 H (10-20) Glucose 159 H (70-99) mg/dl POC Glucose 206 H (70-99) Estimat Average Glucose Hemoglobin A1c Calcium 8.0 L (8.5-10.1) mg/dl Phosphorus 3.6 (2.5-4.9) mg/dl Magnesium 2.2 (1.8-2.4) mg/dl Ammonia (11-32) umol/L 01/26/19 01/26/19 Range/Units 19:03 14:10 WBC (4.8-10.8) K/uL RBC (4.7-6.1) M/uL Hgb (14.0-18.0) g/dL Hct (42-52) % MCV (80-100) fL MCH (25-34) pg MCHC (32-36) g/dL RDW Std Deviation (36.4-46.3) fL RDW Coeff of Curt (11.5-14.5) % Plt Count (130-400) K/uL MPV (7.4-10.4) fL Immature Gran % (Auto) % Neut % (Auto) % Lymph % (Auto) % Kay % (Auto) % Eos % (Auto) % Baso % (Auto) % Immature Gran # (Auto) (0.00-0.02) K/uL Neut # (Auto) (1.4-6.5) K/uL Lymph # (Auto) (1.2-3.4) K/uL Kay # (Auto) (0.11-0.59) K/uL Eos # (Auto) (0-0.5) K/uL Baso # (Auto) (0-0.2) K/uL Anisocytosis Microcytosis PT 12.4 H (9.0-12.0) Seconds INR 1.2 H (0.9-1.1) Sodium (136-145) mmol/L Potassium (3.5-5.1) mmol/L Chloride (98-107) mmol/L Carbon Dioxide (21-32) mmol/L Anion Gap (3-11) BUN (7-18) mg/dl Creatinine (0.6-1.4) mg/dl Est Cr Clr Drug Dosing ml/min Est GFR ( Amer) Est GFR (Non-Af Amer) BUN/Creatinine Ratio (10-20) Glucose (70-99) mg/dl POC Glucose (70-99) Estimat Average Glucose Hemoglobin A1c Calcium (8.5-10.1) mg/dl Phosphorus (2.5-4.9) mg/dl Magnesium (1.8-2.4) mg/dl Ammonia 55.0 H (11-32) umol/L Medications Administered Current Inpatient Medications Acetaminophen (Tylenol) 650 mg PO Q4H PRN PRN Reason: pain/fever Stop: 02/25/19 18:49 Last Admin: 01/27/19 13:03 Dose: 650 mg Documented by: Albuterol (Ventolin 0.083% 2.5mg/3ml) 2.5 mg INH Q4 PRN PRN Reason: Shortness Of Breath Stop: 02/25/19 18:49 Albuterol (Ventolin Hfa) 2 puffs INH Q6H PRN PRN Reason: Shortness Of Breath Stop: 02/25/19 18:49 Artificial Tears (Artificial Tears) 1 drops OPB BID ALINA Stop: 02/25/19 20:59 Last Admin: 01/27/19 09:06 Dose: 1 drops Documented by: Atorvastatin Calcium (Lipitor) 10 mg PO HS LAINA Stop: 02/25/19 20:59 Last Admin: 01/26/19 20:31 Dose: 10 mg Documented by: Dextrose (Dextrose 50%) 25 - 50 ml IV UD PRN; Protocol PRN Reason: Hypoglycemia Protocol Stop: 02/25/19 18:49 Fluoxetine HCl (Prozac) 40 mg PO QAM ALINA Stop: 02/26/19 08:59 Last Admin: 01/27/19 09:07 Dose: 40 mg Documented by: Fluticasone Propionate (Flonase) 2 sprays JORGE DAILY PRN PRN Reason: Congestion Stop: 02/25/19 18:49 Furosemide (Lasix) 40 mg PO BID17 ALINA Stop: 02/25/19 07:59 Last Admin: 01/27/19 15:57 Dose: 40 mg Documented by: Glucagon (Glucagen) 1 mg SQ UD PRN; Protocol PRN Reason: Hypoglycemia Protocol Stop: 02/25/19 18:49 Glucose (Glucose 40%) 15 - 30 gm PO UD PRN; Protocol PRN Reason: Hypoglycemia Protocol Stop: 02/25/19 18:49 Glucose (Dex4 Glucose) 4 - 8 tabs PO UD PRN; Protocol PRN Reason: Hypoglycemia Protocol Stop: 02/25/19 18:49 Heparin Sodium (Porcine) (Heparin Sodium (Porcine)) 5,000 units SQ Q8 ALINA Stop: 02/25/19 21:59 Last Admin: 01/27/19 13:07 Dose: Not Given Documented by: Insulin Aspart (Novolog Flexpen) 0 units SC ACHS ALINA Stop: 02/25/19 20:59 Last Admin: 01/27/19 13:04 Dose: 12 units Documented by: Insulin Glargine (Lantus Solostar Pen) 15 units SQ BID ALINA Stop: 02/25/19 20:59 Last Admin: 01/27/19 09:07 Dose: 15 units Documented by: Lactulose (Chronulac) 10 gm PO BID ALINA Stop: 02/25/19 20:59 Last Admin: 01/27/19 09:06 Dose: 10 gm Documented by: Levalbuterol HCl (Xopenex 1.25mg/3ml Neb) 1.25 mg INH Q4 PRN PRN Reason: Shortness Of Breath Stop: 02/25/19 18:49 Magnesium Hydroxide (Milk Of Magnesia) 30 ml PO Q6H PRN PRN Reason: Constipation Stop: 02/25/19 18:49 Miscellaneous (Carbohydrates For Hypoglycemia) 15 - 30 gm PO UD PRN PRN Reason: Hypoglycemia Treatment Stop: 02/25/19 18:49 Morphine Sulfate (Morphine Sulfate) 0.5 mg IV Q2H PRN PRN Reason: Pain Stop: 02/09/19 20:38 Last Admin: 01/27/19 15:57 Dose: 0.5 mg Documented by: Ondansetron HCl (Zofran) 4 mg IV Q6H PRN PRN Reason: Nausea Stop: 02/25/19 18:49 Pantoprazole Sodium (Protonix) 40 mg PO DAILY [facility] Stop: 02/26/19 08:59 Last Admin: 01/27/19 09:06 Dose: 40 mg Documented by: Pentoxifylline (Trental) 400 mg PO BID [facility] Stop: 02/25/19 20:59 Last Admin: 01/27/19 09:07 Dose: 400 mg Documented by: Potassium Chloride (Klor-Con M10) 10 meq PO BID ALINA Stop: 02/25/19 20:59 Last Admin: 01/27/19 09:06 Dose: 10 meq Documented by: Prednisone (Prednisone) 20 mg PO DAILY [facility] Stop: 02/26/19 08:59 Last Admin: 01/27/19 09:06 Dose: 20 mg Documented by: Promethazine HCl (Phenergan) 25 mg PO Q6H PRN PRN Reason: Nausea Stop: 02/25/19 18:49 Propranolol HCl (Inderal) 5 mg PO DAILY [facility] Stop: 02/26/19 08:59 Last Admin: 01/27/19 09:06 Dose: 5 mg Documented by: Rifaximin (Xifaxan) 550 mg PO BID [facility] Stop: 02/25/19 20:59 Last Admin: 01/27/19 09:07 Dose: 550 mg Documented by: Simethicone (Mylicon) 80 mg PO DAILY PRN PRN Reason: Abdominal Discomfort Stop: 02/25/19 20:54 Spironolactone (Aldactone) 50 mg PO DAILY [facility] Stop: 02/26/19 08:59 Last Admin: 01/27/19 09:06 Dose: 50 mg Documented by: Trimethoprim/Sulfamethoxazole (Septra Ds 800/160mg Tab) 1 tab PO MoWeFr@0900 [facility] Stop: 02/27/19 08:59 Resident Activity Tracking Resident Involvement: Resident Care Provided Care Provided: Adult Hospital Medicine (1) Nasal bone fracture Encounter type: initial encounter Fracture type: closed Qualified Code(s): S02.2XXA - Fracture of nasal bones, initial encounter for closed fracture (2) Noninfected skin tear of right leg Encounter type: initial encounter Qualified Code(s): S81.811A - Laceration without foreign body, right lower leg, initial encounter
[2019-01-27] MEDS: ATORVASTATIN 10 MG TAB PO SCH (20:41)
[2019-01-27] MEDS ORDERED: MICONAZOLE NITRATE POWDER 43 GM EXT PRN (21:21)
[2019-01-27] MEDS ORDERED: CETIRIZINE HCL 10 MG TABLET PO ONE (22:00)
[2019-01-28] MEDS: ONDANSETRON INJ 2 MG/ML 2 ML VIAL IV PRN ×2 (01:58→16:14)
[2019-01-28 06:32] LABS: Estimated Average Glucose 148 mg/dl; Hemoglobin A1C 6.8 % (4.5-5.6)
[2019-01-28] MEDS: HEPARIN SOD 5,000 UNIT/0.5 ML VIAL SQ SCH ×4 (06:41→21:56)
[2019-01-28 06:52] LABS: Nucleated RBC # (auto) 0.02 K/uL (0-0); Nucleated RBC % (auto) 0.3 %
[2019-01-28 07:04] LABS: Hematocrit (blood only) 27.3 % (42-52); Hemoglobin 8.3 g/dL (14.0-18.0); Mean Corpuscular Hgb Conc 30.4 g/dL (32-36); RDW Coefficient of Variation 21.2 % (11.5-14.5); RDW Standard Deviation 57.6 fL (36.4-46.3); Red Blood Count 3.69 M/uL (4.7-6.1); White Blood Count 8.09 K/uL (4.8-10.8)
[2019-01-28 07:12] LABS: Anisocytosis Present; Basophils # (auto) 0.01 K/uL (0-0.2); Basophils % (auto) 0.1 %; Eosinophils # (auto) 0.06 K/uL (0-0.5); Eosinophils % (auto) 0.7 %; Hypochromasia Present; Immature Granulocytes # (auto) 0.11 K/uL (0.00-0.02); Immature Granulocytes % (auto) 1.4 %; Lymphocytes # (auto) 0.74 K/uL (1.2-3.4); Lymphocytes % (auto) 9.1 %; Mean Platelet Volume 9.5 fL (7.4-10.4); Monocytes # (auto) 1.15 K/uL (0.11-0.59); Monocytes % (auto) 14.2 %; Neutrophils # (auto) 6.02 K/uL (1.4-6.5); Neutrophils % (auto) 74.5 %; Platelet Count 123 K/uL (130-400); Platelet Estimate Decreased (Normal); Toxic Granulation 2+
[2019-01-28 07:20] LABS: BUN Creatinine Ratio 21.7 (10-20); Calcium 8.1 mg/dl (8.5-10.1); Creatinine Clr Calc Pharmacy 49.4 ml/min; Est GFR (African American) 55.9; Est GFR (Non-African American) 48.2; Potassium 3.8 mmol/L (3.5-5.1)
[2019-01-28] MEDS: PROPRANOLOL HCL 10 MG TAB PO SCH (08:32)
[2019-01-28] MEDS: SULFAMETHOXAZOLE/TRIMETHOPRIM DS 800/160MG TAB PO SCH (08:35)
[2019-01-28] MEDS: SPIRONOLACTONE 25 MG TAB PO SCH (08:35)
[2019-01-28] MEDS: POTASSIUM CHLORIDE 10 MEQ TABCR PO SCH ×2 (08:35→21:43)
[2019-01-28] MEDS: LACTULOSE SYRUP 10 GM/15 ML BTL 473 ML PO SCH ×2 (08:35→21:43)
[2019-01-28] MEDS: PENTOXIFYLLINE 400MG EXT REL TAB PO SCH ×2 (08:35→21:43)
[2019-01-28] MEDS: INSULIN GLARGINE SOLOSTAR 100 UNITS/ML 3 ML PEN SQ SCH ×2 (08:35→21:44)
[2019-01-28] MEDS: predniSONE 20 MG TAB PO SCH (08:35)
[2019-01-28] MEDS: FUROSEMIDE 40 MG TAB PO SCH ×2 (08:35→17:05)
[2019-01-28] MEDS: PANTOprazole 40 MG TAB PO SCH (08:35)
[2019-01-28] MEDS: RIFAXIMIN 550 MG TABLET PO SCH ×2 (08:35→21:43)
[2019-01-28] MEDS: FLUOXETINE HCL 20 MG CAP PO SCH (08:35)
[2019-01-28] MEDS: ARTIFICIAL TEARS OPB SCH ×2 (08:35→21:43)
[2019-01-28] MEDS: INSULIN ASPART 100 UNITS/ML 3 ML PEN SC SCH ×4 (08:36→21:44)
[2019-01-28] MEDS: PROMETHAZINE HCL 25 MG TAB PO PRN (11:54)
--- NOTE | 2019-01-28 16:42 | Family Medicine Progress Note ---
Date of Service January 28, 2019 Assessment & Plan (1) Ambulatory dysfunction: 64-year-old male with a history of alcoholic hepatitis presents with ambulatory dysfunction, chronic. He recently has had a progression with frequent falls, 7 in the past month. Patient suffered a fall on 01/26/2019 where he fell flat on his face. Ambulatory dysfunction, frequent falls Causes likely multifactorial; hyperammonemia, deconditioning/muscle wasting of the extremities, orthostasis on diuretics No clinically significant fractures on x-ray, no cranial fractures or intracranial bleed seen on CT PT/OT evaluate the patient with planned to transfer to [facility] for outpatie nt rehab Ecchymotic upper lower extremity, scattered excoriations Wound care consult, appreciate recommendations Nasal bone fracture Follow-up with ENT in the outpatient setting Bilateral parotid gland nodules Incidentally found on spiral CT 1.8 cm nodule on inferior aspect of right parotid gland, seen on CT Radiology recommends nonemergent follow-up Alcoholic cirrhosis Meld score of 14 Continue Lasix 40 mg p.o. twice daily, will order orthostatic blood pressures, ambulatory dysfunction may be further hampered by orthostasis Continue lactulose, rifaximin, spironolactone, propranolol Anemia, microcytic Likely secondary to chronic disease, no signs of acute blood loss Currently at the patient's baseline Continue propranolol for prevention of varices Hyperammonemia Chronic in the setting of alcoholic cirrhosis Continue lactulose Depression/anxiety Continue fluoxetine GERD Protonix 40 mg daily Type 2 diabetes Continue atorvastatin 10 mg Continue Lantus 15 units twice daily, insulin sliding scale Sleep apnea Noncompliant with CPAP DVT prophylax Heparin 5000 every 8 CODE STATUS Full code, no mechanical ventilation (2) Steroid long-term use: (3) Sarcoidosis: (4) Cirrhosis: (5) ARF (acute renal failure): (6) Anxiety: (7) DVT prophylaxis: (8) DM type 2 (diabetes mellitus, type 2): (9) Depression: (10) Noninfected skin tear of right leg: (11) Laceration of nose: (12) Nasal bone fracture: (13) Generalized weakness: Supervising Physician Co-Signing Physician Notes Resident Physician Supervision Note: I independently interviewed and examined the patient and verified the chan history and physical, reviewed labs and image studies, discussed the case with the resident Dr. Escamilla and agree with the findings and care plan. Subjective 64-year-old male with a past medical history of alcoholic hepatitis presents with weakness and falls. Patient reports being lightheaded, but denies passing out. Patient reports being nauseous and having right abdominal pain. He states that this is normal for him at baseline. Review of systems Constitutional; denies fevers, chills, night sweats Chest; denies chest pain, shortness of breath, palpitations Abdomen; right upper and lower quadrant abdominal pain, persistent nausea, frequent diarrhea, decreased appetite Physical Exam Vital Signs (Past 24 Hours): Last Vital Signs Temp 36.6 C 01/28/19 15:29 Pulse 83 01/28/19 15:29 Resp 18 01/28/19 15:29 BP 102/66 01/28/19 15:29 Pulse Ox 97 01/28/19 15:29 Constitutional: + ill appearing, + obese and + cushingoid Eyes: Bilateral exophthalmos, conjunctival hemorrhage in the right eye Neck: trachea midline, no thyromegaly Cardiovascular: Rate/Rhythm: regular rate and regular rhythm 2 out of 6 systolic murmur Gastrointestinal (Abdomen): Inspection/Auscultation: + abdomen distended and normal bowel sounds Percussion/Palpation: + abdomen tender Right lower and upper quadrant tenderness, hypoactive bowel sounds, distended abdomen Musculoskeletal: Extremities: + muscle atrophy (In all extremities) Skin: Skin is ecchymoticupper and lower extremities. Numerous excoriations on extremities as well. Psychiatric: Orientation: alert and oriented x 3 Flat a fact Results & Data Laboratory Results Laboratory Last Values WBC 8.09 K/uL (4.8-10.8) 01/28/19 05:49 RBC 3.69 M/uL (4.7-6.1) L 01/28/19 05:49 Hgb 8.3 g/dL (14.0-18.0) L 01/28/19 05:49 Hct 27.3 % (42-52) L 01/28/19 05:49 MCV 74.0 fL (80-100) L 01/28/19 05:49 MCH 22.5 pg (25-34) L 01/28/19 05:49 MCHC 30.4 g/dL (32-36) L 01/28/19 05:49 RDW Std Deviation 57.6 fL (36.4-46.3) H 01/28/19 05:49 RDW Coeff of Curt 21.2 % (11.5-14.5) H 01/28/19 05:49 Plt Count 123 K/uL (130-400) L 01/28/19 05:49 MPV 9.5 fL (7.4-10.4) 01/28/19 05:49 Immature Gran % (Auto) 1.4 % 01/28/19 05:49 Neut % (Auto) 74.5 % 01/28/19 05:49 Lymph % (Auto) 9.1 % 01/28/19 05:49 Marion % (Auto) 14.2 % 01/28/19 05:49 Eos % (Auto) 0.7 % 01/28/19 05:49 Baso % (Auto) 0.1 % 01/28/19 05:49 Immature Gran # (Auto) 0.11 K/uL (0.00-0.02) H 01/28/19 05:49 Neut # (Auto) 6.02 K/uL (1.4-6.5) 01/28/19 05:49 Lymph # (Auto) 0.74 K/uL (1.2-3.4) L 01/28/19 05:49 Marion # (Auto) 1.15 K/uL (0.11-0.59) H 01/28/19 05:49 Eos # (Auto) 0.06 K/uL (0-0.5) 01/28/19 05:49 Baso # (Auto) 0.01 K/uL (0-0.2) 01/28/19 05:49 Absolute Nucleated RBC 0.02 K/uL (0-0) H 01/28/19 05:49 Nucleated RBC % (auto) 0.3 % 01/28/19 05:49 Toxic Granulation 2+ 01/28/19 05:49 Platelet Estimate Decreased (Normal) 01/28/19 05:49 Hypochromasia Present 01/28/19 05:49 Anisocytosis Present 01/28/19 05:49 Microcytosis Present 01/27/19 06:40 PT 12.4 Seconds (9.0-12.0) H 01/26/19 14:10 INR 1.2 (0.9-1.1) H 01/26/19 14:10 Sodium 138 mmol/L (136-145) 01/28/19 05:49 Potassium 3.8 mmol/L (3.5-5.1) 01/28/19 05:49 Chloride 102 mmol/L (98-107) 01/28/19 05:49 Carbon Dioxide 28 mmol/L (21-32) 01/28/19 05:49 Anion Gap 8.0 (3-11) 01/28/19 05:49 BUN 32 mg/dl (7-18) H 01/28/19 05:49 Creatinine 1.49 mg/dl (0.6-1.4) H 01/28/19 05:49 Est Cr Clr Drug Dosing 49.4 ml/min 01/28/19 05:49 Est GFR ( Amer) 55.9 01/28/19 05:49 Est GFR (Non-Af Amer) 48.2 01/28/19 05:49 BUN/Creatinine Ratio 21.7 (10-20) H 01/28/19 05:49 Glucose 63 mg/dl (70-99) L 01/28/19 05:49 POC Glucose 181 (70-99) H 01/28/19 11:35 Estimat Average Glucose 148 mg/dl 01/27/19 06:40 Hemoglobin A1c 6.8 % (4.5-5.6) H 01/27/19 06:40 Calcium 8.1 mg/dl (8.5-10.1) L 01/28/19 05:49 Phosphorus 3.6 mg/dl (2.5-4.9) 01/27/19 06:40 Magnesium 2.2 mg/dl (1.8-2.4) 01/27/19 06:40 Total Bilirubin 1.8 mg/dl (0.2-1) H 01/26/19 14:10 AST 39 U/L (15-37) H 01/26/19 14:10 ALT 33 U/L (12-78) 01/26/19 14:10 Alkaline Phosphatase 321 U/L (45-117) H 01/26/19 14:10 Ammonia 55.0 umol/L (11-32) H 01/26/19 19:03 Total Protein 5.6 gm/dl (6.4-8.2) L 01/26/19 14:10 Albumin 2.1 gm/dl (3.4-5.0) L 01/26/19 14:10 Globulin 3.5 gm/dl (2.5-4.0) 01/26/19 14:10 Albumin/Globulin Ratio 0.6 (0.9-2) L 01/26/19 14:10 Resident Activity Tracking Resident Involvement: Resident Care Provided Care Provided: Adult [facility] Medicine (1) Nasal bone fracture Encounter type: initial encounter Fracture type: closed Qualified Code(s): S02.2XXA - Fracture of nasal bones, initial encounter for closed fracture (2) Noninfected skin tear of right leg Encounter type: initial encounter Qualified Code(s): S81.811A - Laceration without foreign body, right lower leg, initial encounter (3) Laceration of nose Encounter type: initial encounter Qualified Code(s): S01.21XA - Laceration without foreign body of nose, initial encounter
[2019-01-28] MEDS: ATORVASTATIN 10 MG TAB PO SCH (21:43)
[2019-01-28] MEDS: MoRPHine SULFATE 2 MG/ML CARP IV PRN (21:52)
[2019-01-29] MEDS: HEPARIN SOD 5,000 UNIT/0.5 ML VIAL SQ SCH ×3 (06:05→20:19)
[2019-01-29] MEDS: POTASSIUM CHLORIDE 10 MEQ TABCR PO SCH ×2 (07:49→20:25)
[2019-01-29] MEDS: PENTOXIFYLLINE 400MG EXT REL TAB PO SCH ×2 (07:49→20:25)
[2019-01-29] MEDS: RIFAXIMIN 550 MG TABLET PO SCH ×2 (07:49→20:25)
[2019-01-29] MEDS: PROPRANOLOL HCL 10 MG TAB PO SCH (07:49)
[2019-01-29] MEDS: FUROSEMIDE 40 MG TAB PO SCH ×2 (07:49→17:35)
[2019-01-29] MEDS: predniSONE 20 MG TAB PO SCH (07:50)
[2019-01-29] MEDS: PANTOprazole 40 MG TAB PO SCH (07:50)
[2019-01-29] MEDS: SPIRONOLACTONE 25 MG TAB PO SCH (07:50)
[2019-01-29] MEDS: FLUOXETINE HCL 20 MG CAP PO SCH (07:50)
[2019-01-29] MEDS: LACTULOSE SYRUP 10 GM/15 ML BTL 473 ML PO SCH ×4 (07:51→20:19)
[2019-01-29] MEDS: ARTIFICIAL TEARS OPB SCH ×2 (07:51→20:24)
--- NOTE | 2019-01-29 09:12 | Family Medicine Progress Note ---
Date of Service January 29, 2019 Assessment & Plan (1) Ambulatory dysfunction: (1) Ambulatory dysfunction: 64-year-old male with a history of alcoholic hepatitis presents with ambulatory dysfunction, chronic. He recently has had a progression with frequent falls, 7 in the past month. Patient suffered a fall on 01/26/2019 where he fell flat on his face. Ambulatory dysfunction, frequent falls Causes likely multifactorial; hyperammonemia, deconditioning/muscle wasting of the extremities, orthostasis on diuretics No clinically significant fractures on x-ray, no cranial fractures or intracranial bleed seen on CT PT/OT evaluate the patient with planned to transfer to [facility] for outpatient rehab Worsening nausea/vomiting/constipation -KUB ordered, though has good bowel sounds. continue to monitor -Lactulose increased to TID dosing, continue antiemetics Ecchymotic upper lower extremity, scattered excoriations Wound care consult, appreciate recommendations Nasal bone fracture Follow-up with ENT in the outpatient setting Bilateral parotid gland nodules Incidentally found on spiral CT 1.8 cm nodule on inferior aspect of right parotid gland, seen on CT Radiology recommends nonemergent follow-up Alcoholic cirrhosis Meld score of 14 Continue Lasix 40 mg p.o. twice daily, will order orthostatic blood pressures, ambulatory dysfunction may be further hampered by orthostasis Continue lactulose, rifaximin, spironolactone, propranolol Anemia, microcytic Likely secondary to chronic disease, no signs of acute blood loss Currently at the patient's baseline Continue propranolol for prevention of varices Hyperammonemia Chronic in the setting of alcoholic cirrhosis Continue lactulose Depression/anxiety Continue fluoxetine GERD Protonix 40 mg daily Type 2 diabetes Continue atorvastatin 10 mg Continue Lantus 15 units twice daily, insulin sliding scale Sleep apnea Noncompliant with CPAP DVT prophylax Heparin 5000 every 8 CODE STATUS Full code, no mechanical ventilation (2) Hypertension: (3) Hyperlipidemia: (4) Asthma: (5) Sleep apnea: (6) Diabetic autonomic neuropathy: (7) Obesity: (8) Hyperammonemia: (9) Nasal bone fracture: (10) Cirrhosis: (11) DM type 2 (diabetes mellitus, type 2): (12) Depression: (13) Anxiety: Supervising Physician Co-Signing Physician Notes Resident Physician Supervision Note: I independently interviewed and examined the patient and verified the chan history and physical, reviewed labs and image studies, discussed the case with the resident Dr. Escamilla and agree with the findings and care plan. Subjective 64-year-old male with a past medical history of alcoholic hepatitis presents with weakness and falls. Patient describes persistent nausea and right upper lower quadrant abdominal pain. He states that he is not had a bowel movement the past couple days. Review of systems Constitutional; denies fevers, chills, night sweats Chest; denies chest pain, shortness of breath, palpitations Abdomen; right upper and lower quadrant abdominal pain, persistent nausea, decreased appetite Physical Exam Vital Signs (Past 24 Hours): Last Vital Signs Temp 36.6 C 01/29/19 08:18 Pulse 83 01/29/19 08:18 Resp 20 01/29/19 08:18 BP 122/77 01/29/19 08:18 Pulse Ox 96 01/29/19 08:18 Constitutional: + ill appearing, + obese and + cushingoid Eyes: Bilateral exophthalmos, conjunctival hemorrhage in the right eye Neck: trachea midline, no thyromegaly Cardiovascular: Rate/Rhythm: regular rate and regular rhythm 2 out of 6 systolic murmur Gastrointestinal (Abdomen): Inspection/Auscultation: + abdomen distended and normal bowel sounds Percussion/Palpation: + abdomen tender Hyperactive bowel sounds. Right upper lower quadrant tenderness Musculoskeletal: Extremities: + muscle atrophy (In all extremities) Skin: Skin is ecchymoticupper and lower extremities. Numerous excoriations on extremities as well. Psychiatric: Orientation: alert and oriented x 3 Results & Data Laboratory Results Laboratory Last Values WBC 8.09 K/uL (4.8-10.8) 01/28/19 05:49 RBC 3.69 M/uL (4.7-6.1) L 01/28/19 05:49 Hgb 8.3 g/dL (14.0-18.0) L 01/28/19 05:49 Hct 27.3 % (42-52) L 01/28/19 05:49 MCV 74.0 fL (80-100) L 01/28/19 05:49 MCH 22.5 pg (25-34) L 01/28/19 05:49 MCHC 30.4 g/dL (32-36) L 01/28/19 05:49 RDW Std Deviation 57.6 fL (36.4-46.3) H 01/28/19 05:49 RDW Coeff of Curt 21.2 % (11.5-14.5) H 01/28/19 05:49 Plt Count 123 K/uL (130-400) L 01/28/19 05:49 MPV 9.5 fL (7.4-10.4) 01/28/19 05:49 Immature Gran % (Auto) 1.4 % 01/28/19 05:49 Neut % (Auto) 74.5 % 01/28/19 05:49 Lymph % (Auto) 9.1 % 01/28/19 05:49 [place] % (Auto) 14.2 % 01/28/19 05:49 Eos % (Auto) 0.7 % 01/28/19 05:49 Baso % (Auto) 0.1 % 01/28/19 05:49 Immature Gran # (Auto) 0.11 K/uL (0.00-0.02) H 01/28/19 05:49 Neut # (Auto) 6.02 K/uL (1.4-6.5) 01/28/19 05:49 Lymph # (Auto) 0.74 K/uL (1.2-3.4) L 01/28/19 05:49 [place] # (Auto) 1.15 K/uL (0.11-0.59) H 01/28/19 05:49 Eos # (Auto) 0.06 K/uL (0-0.5) 01/28/19 05:49 Baso # (Auto) 0.01 K/uL (0-0.2) 01/28/19 05:49 Absolute Nucleated RBC 0.02 K/uL (0-0) H 01/28/19 05:49 Nucleated RBC % (auto) 0.3 % 01/28/19 05:49 Toxic Granulation 2+ 01/28/19 05:49 Platelet Estimate Decreased (Normal) 01/28/19 05:49 Hypochromasia Present 01/28/19 05:49 Anisocytosis Present 01/28/19 05:49 Microcytosis Present 01/27/19 06:40 PT 12.4 Seconds (9.0-12.0) H 01/26/19 14:10 INR 1.2 (0.9-1.1) H 01/26/19 14:10 Sodium 138 mmol/L (136-145) 01/28/19 05:49 Potassium 3.8 mmol/L (3.5-5.1) 01/28/19 05:49 Chloride 102 mmol/L (98-107) 01/28/19 05:49 Carbon Dioxide 28 mmol/L (21-32) 01/28/19 05:49 Anion Gap 8.0 (3-11) 01/28/19 05:49 BUN 32 mg/dl (7-18) H 01/28/19 05:49 Creatinine 1.49 mg/dl (0.6-1.4) H 01/28/19 05:49 Est Cr Clr Drug Dosing 49.4 ml/min 01/28/19 05:49 Est GFR ( Amer) 55.9 01/28/19 05:49 Est GFR (Non-Af Amer) 48.2 01/28/19 05:49 BUN/Creatinine Ratio 21.7 (10-20) H 01/28/19 05:49 Glucose 63 mg/dl (70-99) L 01/28/19 05:49 POC Glucose 118 (70-99) H 01/29/19 07:51 Estimat Average Glucose 148 mg/dl 01/27/19 06:40 Hemoglobin A1c 6.8 % (4.5-5.6) H 01/27/19 06:40 Calcium 8.1 mg/dl (8.5-10.1) L 01/28/19 05:49 Phosphorus 3.6 mg/dl (2.5-4.9) 01/27/19 06:40 Magnesium 2.2 mg/dl (1.8-2.4) 01/27/19 06:40 Total Bilirubin 1.8 mg/dl (0.2-1) H 01/26/19 14:10 AST 39 U/L (15-37) H 01/26/19 14:10 ALT 33 U/L (12-78) 01/26/19 14:10 Alkaline Phosphatase 321 U/L (45-117) H 01/26/19 14:10 Ammonia 55.0 umol/L (11-32) H 01/26/19 19:03 Total Protein 5.6 gm/dl (6.4-8.2) L 01/26/19 14:10 Albumin 2.1 gm/dl (3.4-5.0) L 01/26/19 14:10 Globulin 3.5 gm/dl (2.5-4.0) 01/26/19 14:10 Albumin/Globulin Ratio 0.6 (0.9-2) L 01/26/19 14:10 Resident Activity Tracking Resident Involvement: Resident Care Provided Care Provided: Adult Hospital Medicine (1) Nasal bone fracture Encounter type: initial encounter Fracture type: closed Qualified Code(s): S02.2XXA - Fracture of nasal bones, initial encounter for closed fracture
[2019-01-29] MEDS: ONDANSETRON INJ 2 MG/ML 2 ML VIAL IV PRN (09:34)
[2019-01-29] MEDS: INSULIN ASPART 100 UNITS/ML 3 ML PEN SC SCH ×4 (09:34→20:20)
[2019-01-29] MEDS: MoRPHine SULFATE 2 MG/ML CARP IV PRN ×3 (09:34→18:13)
[2019-01-29] MEDS: INSULIN GLARGINE SOLOSTAR 100 UNITS/ML 3 ML PEN SQ SCH ×2 (09:35→20:24)
--- NOTE | 2019-01-29 12:03 | XRay Report ---
XR KUB CLINICAL HISTORY: nausea, constipation, abdominal distension pain COMPARISON STUDY: No previous studies for comparison. FINDINGS: Nonobstructive bowel pattern. Postoperative changes of the lumbar spine and sacroiliac join ts. No secondary evidence for free air. Small calcification overlying left kidney. IMPRESSION: Nonobstructive bowel pattern. Small left renal cortical calcification. The above report was generated using voice recognition software. It may contain grammatical, syntax or spelling errors. Electronically signed by: Naga Vázquez M.D. 01/29/2019 12:02 PM
[2019-01-29] MEDS: PROMETHAZINE HCL 25 MG TAB PO PRN (19:03)
[2019-01-29] MEDS: ATORVASTATIN 10 MG TAB PO SCH (20:26)
[2019-01-30 06:31] LABS: Mean Corpuscular Hgb Conc 30.6 g/dL (32-36)
[2019-01-30 07:03] LABS: BUN Creatinine Ratio 20.8 (10-20); Calcium 7.5 mg/dl (8.5-10.1); Creatinine Clr Calc Pharmacy 52.6 ml/min; Est GFR (African American) 60.3; Potassium 3.5 mmol/L (3.5-5.1)
[2019-01-30 07:08] LABS: Hematocrit (blood only) 25.2 % (42-52); Hemoglobin 7.7 g/dL (14.0-18.0); Mean Corpuscular Volume 74.3 fL (80-100); RDW Coefficient of Variation 20.9 % (11.5-14.5); Red Blood Count 3.39 M/uL (4.7-6.1)
[2019-01-30] MEDS: CARBOHYDRATES FOR HYPOGLYCEMIA PO PRN (07:09)
[2019-01-30] MEDS: FLUOXETINE HCL 20 MG CAP PO SCH (07:39)
[2019-01-30] MEDS: SPIRONOLACTONE 25 MG TAB PO SCH (07:39)
[2019-01-30] MEDS: predniSONE 20 MG TAB PO SCH (07:39)
[2019-01-30] MEDS: PROPRANOLOL HCL 10 MG TAB PO SCH (07:40)
[2019-01-30] MEDS: RIFAXIMIN 550 MG TABLET PO SCH ×2 (07:40→20:27)
[2019-01-30] MEDS: FUROSEMIDE 40 MG TAB PO SCH ×2 (07:40→17:40)
[2019-01-30] MEDS: ARTIFICIAL TEARS OPB SCH ×2 (07:40→20:26)
[2019-01-30] MEDS: SULFAMETHOXAZOLE/TRIMETHOPRIM DS 800/160MG TAB PO SCH (07:40)
[2019-01-30] MEDS: POTASSIUM CHLORIDE 10 MEQ TABCR PO SCH ×2 (07:40→20:28)
[2019-01-30] MEDS: PANTOprazole 40 MG TAB PO SCH (07:40)
[2019-01-30] MEDS: PENTOXIFYLLINE 400MG EXT REL TAB PO SCH ×2 (07:41→20:29)
[2019-01-30] MEDS: LACTULOSE SYRUP 10 GM/15 ML BTL 473 ML PO SCH ×3 (07:41→20:27)
[2019-01-30 07:51] LABS: Anisocytosis Present; Basophils # (auto) 0.01 K/uL (0-0.2); Basophils % (auto) 0.2 %; Eosinophils # (auto) 0.06 K/uL (0-0.5); Immature Granulocytes # (auto) 0.05 K/uL (0.00-0.02); Immature Granulocytes % (auto) 0.9 %; Lymphocytes % (auto) 8.6 %; Mean Platelet Volume 9.1 fL (7.4-10.4); Microcytosis Present; Monocytes # (auto) 0.82 K/uL (0.11-0.59); Monocytes % (auto) 14.1 %; Neutrophils # (auto) 4.36 K/uL (1.4-6.5); Neutrophils % (auto) 75.2 %; Platelet Count 92 K/uL (130-400); Platelet Estimate Decreased (Normal); Toxic Granulation 2+
[2019-01-30] MEDS: INSULIN ASPART 100 UNITS/ML 3 ML PEN SC SCH ×4 (08:41→20:29)
[2019-01-30] MEDS: INSULIN GLARGINE SOLOSTAR 100 UNITS/ML 3 ML PEN SQ SCH ×2 (08:41→20:28)
[2019-01-30] MEDS: HEPARIN SOD 5,000 UNIT/0.5 ML VIAL SQ SCH ×2 (08:41→20:27)
[2019-01-30] MEDS: MoRPHine SULFATE 2 MG/ML CARP IV PRN ×4 (08:52→20:34)
--- NOTE | 2019-01-30 15:23 | Family Medicine Progress Note ---
Date of Service January 30, 2019 Assessment & Plan (1) Ambulatory dysfunction: (1) Ambulatory dysfunction: (1) Ambulatory dysfunction: 64-year-old male with a history of alcoholic hepatitis presents with ambulatory dysfunction, chronic. He recently has had a progression with freq uent falls, 7 in the past month. Patient suffered a fall on 01/26/2019 where he fell flat on his face. Ambulatory dysfunction, frequent falls Causes likely multifactorial; hyperammonemia, deconditioning/muscle wasting of the extremities, orthostasis on diuretics No clinically significant fractures on x-ray, no cranial fractures or intracranial bleed seen on CT PT/OT evaluate the patient with planned to transfer to [facility] for outpatient rehab Nausea/vomiting/constipation Improved today after successful bowel movement with the help of a bowel regimen. Ecchymotic upper lower extremity, scattered excoriations Wound care consult, appreciate recommendations Nasal bone fracture Follow-up with ENT in the outpatient setting Bilateral parotid gland nodules Incidentally found on spiral CT 1.8 cm nodule on inferior aspect of right parotid gland, seen on CT Radiology recommends nonemergent follow-up Alcoholic cirrhosis Meld score of 14 Continue Lasix 40 mg p.o. twice daily Continue lactulose, rifaximin, spironolactone, propranolol Anemia, microcytic Likely secondary to chronic disease, no signs of acute blood loss Currently at the patient's baseline Continue propranolol for prevention of variceal bleeding Hyperammonemia Chronic in the setting of alcoholic cirrhosis Continue lactulose Depression/anxiety Continue fluoxetine GERD Protonix 40 mg daily Type 2 diabetes Continue atorvastatin 10 mg Continue Lantus 15 units twice daily, insulin sliding scale Sleep apnea Noncompliant with CPAP. Reiterated compliance DVT prophylax Heparin 5000 every 8 CODE STATUS Full code, no mechanical ventilation Supervising Physician Co-Signing Physician Notes Resident Physician Supervision Note: I independently interviewed and examined the patient and verified the chan history and physical, reviewed labs and image studies, discussed the case with the resident Dr. Escamilla and agree with the findings and care plan. Subjective 64-year-old male with a past medical history of alcoholic hepatitis presents with weakness and falls. Patient states that his abdominal pain is much better today following successful bowel movement. He states that his nausea is decreased and his appetite is improved. Review of systems Constitutional; denies fevers, chills, night sweats Chest; denies chest pain, shortness of breath, palpitations Abdomen; improved abdominal pain, improved nausea Physical Exam Vital Signs (Past 24 Hours): Last Vital Signs Temp 36.6 C 01/29/19 23:13 Pulse 72 01/30/19 07:33 Resp 18 01/30/19 07:33 BP 108/67 01/30/19 07:33 Pulse Ox 96 01/30/19 07:33 Constitutional: + ill appearing, + obese and + cushingoid Eyes: Bilateral exophthalmos, conjunctival hemorrhage in the right eye Neck: trachea midline, no thyromegaly Cardiovascular: Rate/Rhythm: regular rate and regular rhythm Gastrointestinal (Abdomen): Inspection/Auscultation: + abdomen distended and normal bowel sounds Percussion/Palpation: + abdomen tender Musculoskeletal: Extremities: + muscle atrophy (In all extremities) Skin: Skin is ecchymoticupper and lower extremities. Numerous excoriations on extremities as well. Psychiatric: Orientation: alert and oriented x 3 Results & Data Laboratory Results Laboratory Last Values WBC 5.80 K/uL (4.8-10.8) 01/30/19 05:53 RBC 3.39 M/uL (4.7-6.1) L 01/30/19 05:53 Hgb 7.7 g/dL (14.0-18.0) L 01/30/19 05:53 Hct 25.2 % (42-52) L 01/30/19 05:53 MCV 74.3 fL (80-100) L 01/30/19 05:53 MCH 22.7 pg (25-34) L 01/30/19 05:53 MCHC 30.6 g/dL (32-36) L 01/30/19 05:53 RDW Std Deviation 57.0 fL (36.4-46.3) H 01/30/19 05:53 RDW Coeff of Curt 20.9 % (11.5-14.5) H 01/30/19 05:53 Plt Count 92 K/uL (130-400) L 01/30/19 05:53 MPV 9.1 fL (7.4-10.4) 01/30/19 05:53 Immature Gran % (Auto) 0.9 % 01/30/19 05:53 Neut % (Auto) 75.2 % 01/30/19 05:53 Lymph % (Auto) 8.6 % 01/30/19 05:53 [place] % (Auto) 14.1 % 01/30/19 05:53 Eos % (Auto) 1.0 % 01/30/19 05:53 Baso % (Auto) 0.2 % 01/30/19 05:53 Immature Gran # (Auto) 0.05 K/uL (0.00-0.02) H 01/30/19 05:53 Neut # (Auto) 4.36 K/uL (1.4-6.5) 01/30/19 05:53 Lymph # (Auto) 0.50 K/uL (1.2-3.4) L 01/30/19 05:53 [place] # (Auto) 0.82 K/uL (0.11-0.59) H 01/30/19 05:53 Eos # (Auto) 0.06 K/uL (0-0.5) 01/30/19 05:53 Baso # (Auto) 0.01 K/uL (0-0.2) 01/30/19 05:53 Absolute Nucleated RBC 0.02 K/uL (0-0) H 01/28/19 05:49 Nucleated RBC % (auto) 0.3 % 01/28/19 05:49 Toxic Granulation 2+ 01/30/19 05:53 Platelet Estimate Decreased (Normal) 01/30/19 05:53 Hypochromasia Present 01/28/19 05:49 Anisocytosis Present 01/30/19 05:53 Microcytosis Present 01/30/19 05:53 PT 12.4 Seconds (9.0-12.0) H 01/26/19 14:10 INR 1.2 (0.9-1.1) H 01/26/19 14:10 Sodium 136 mmol/L (136-145) 01/30/19 05:53 Potassium 3.5 mmol/L (3.5-5.1) 01/30/19 05:53 Chloride 101 mmol/L (98-107) 01/30/19 05:53 Carbon Dioxide 28 mmol/L (21-32) 01/30/19 05:53 Anion Gap 7.0 (3-11) 01/30/19 05:53 BUN 29 mg/dl (7-18) H 01/30/19 05:53 Creatinine 1.40 mg/dl (0.6-1.4) 01/30/19 05:53 Est Cr Clr Drug Dosing 52.6 ml/min 01/30/19 05:53 Est GFR ( Amer) 60.3 01/30/19 05:53 Est GFR (Non-Af Amer) 52.0 01/30/19 05:53 BUN/Creatinine Ratio 20.8 (10-20) H 01/30/19 05:53 Glucose 46 mg/dl (70-99) L* 01/30/19 05:53 POC Glucose 175 (70-99) H 01/30/19 11:34 Estimat Average Glucose 148 mg/dl 01/27/19 06:40 Hemoglobin A1c 6.8 % (4.5-5.6) H 01/27/19 06:40 Calcium 7.5 mg/dl (8.5-10.1) L 01/30/19 05:53 Phosphorus 3.6 mg/dl (2.5-4.9) 01/27/19 06:40 Magnesium 2.2 mg/dl (1.8-2.4) 01/27/19 06:40 Total Bilirubin 1.8 mg/dl (0.2-1) H 01/26/19 14:10 AST 39 U/L (15-37) H 01/26/19 14:10 ALT 33 U/L (12-78) 01/26/19 14:10 Alkaline Phosphatase 321 U/L (45-117) H 01/26/19 14:10 Ammonia 55.0 umol/L (11-32) H 01/26/19 19:03 Total Protein 5.6 gm/dl (6.4-8.2) L 01/26/19 14:10 Albumin 2.1 gm/dl (3.4-5.0) L 01/26/19 14:10 Globulin 3.5 gm/dl (2.5-4.0) 01/26/19 14:10 Albumin/Globulin Ratio 0.6 (0.9-2) L 01/26/19 14:10 Resident Activity Tracking Resident Involvement: Resident Care Provided Care Provided: Adult [place] [facility]
[2019-01-30] MEDS: PROMETHAZINE HCL 25 MG TAB PO PRN (19:22)
[2019-01-30] MEDS: ATORVASTATIN 10 MG TAB PO SCH (20:29)
[2019-01-31] MEDS: POTASSIUM CHLORIDE 10 MEQ TABCR PO SCH ×2 (08:26→21:32)
[2019-01-31] MEDS: SPIRONOLACTONE 25 MG TAB PO SCH (08:27)
[2019-01-31] MEDS: FLUOXETINE HCL 20 MG CAP PO SCH (08:27)
[2019-01-31] MEDS: RIFAXIMIN 550 MG TABLET PO SCH ×2 (08:27→21:33)
[2019-01-31] MEDS: PROPRANOLOL HCL 10 MG TAB PO SCH (08:28)
[2019-01-31] MEDS: predniSONE 20 MG TAB PO SCH (08:28)
[2019-01-31] MEDS: PANTOprazole 40 MG TAB PO SCH (08:28)
[2019-01-31] MEDS: ARTIFICIAL TEARS OPB SCH ×2 (08:29→21:29)
[2019-01-31] MEDS: LACTULOSE SYRUP 10 GM/15 ML BTL 473 ML PO SCH ×3 (08:29→21:28)
[2019-01-31] MEDS: PENTOXIFYLLINE 400MG EXT REL TAB PO SCH ×2 (08:29→21:32)
[2019-01-31] MEDS: FUROSEMIDE 40 MG TAB PO SCH ×2 (08:29→16:52)
[2019-01-31] MEDS: INSULIN GLARGINE SOLOSTAR 100 UNITS/ML 3 ML PEN SQ SCH ×2 (08:30→21:38)
[2019-01-31] MEDS: HEPARIN SOD 5,000 UNIT/0.5 ML VIAL SQ SCH ×2 (08:31→21:38)
[2019-01-31] MEDS: INSULIN ASPART 100 UNITS/ML 3 ML PEN SC SCH ×4 (09:55→21:38)
--- NOTE | 2019-01-31 14:06 | Family Medicine Progress Note ---
Date of Service January 31, 2019 Assessment & Plan (1) Ambulatory dysfunction: (1) Ambulatory dysfunction: 64-year-old male with a history of alcoholic hepatitis presents with ambulatory dysfunction, chronic. He recently has had a progression with frequent falls, 7 in the past month. Patient suffered a fall on 01/26/2019 where he fell flat on his face. Ambulatory dysfunction, frequent falls Causes likely multifactorial; hyperammonemia, deconditioning/muscle wasting of the extremities, orthostasis on diuretics No clinically significant fractures on x-ray, no cranial fractures or intracranial bleed seen on CT PT/OT evaluate the patient with planned to transfer to [facility] for outpatient rehab Orthostatic hypotension Patient is currently being treated with Lasix 40 mg twice daily Patient has a delicate fluid balance considering baseline cirrhosis/hypoalbuminemia, currently appears intravascularly depleted, creatinine is at baseline 1.4 BUN, 29 No change to regimen at this time but will encourage p.o. hydration and reassessment of orthostatic pressures. Nausea/vomiting/constipation Improved yesterday after successful bowel movement Appears the patient is refusing doses of lactulosediscussed with nursing to inform us when the patient defers medication We will not increase the dose of lactulose at this time, but will follow compliance. Ecchymotic upper lower extremity, scattered excoriations Wound care consult, appreciate recommendations Nasal bone fracture Follow-up with ENT in the outpatient setting Bilateral parotid gland nodules Incidentally found on spiral CT 1.8 cm nodule on inferior aspect of right parotid gland, seen on CT Radiology recommends nonemergent follow-up Alcoholic cirrhosis Meld score of 14 Continue Lasix 40 mg p.o. twice daily Continue lactulose, rifaximin, spironolactone, propranolol Anemia, microcytic Likely secondary to chronic disease, no signs of acute blood loss Currently at the patient's baseline Continue propranolol for prevention of variceal bleeding Hyperammonemia Chronic in the setting of alcoholic cirrhosis Continue lactulose Depression/anxiety Continue fluoxetine GERD Protonix 40 mg daily Type 2 diabetes Continue atorvastatin 10 mg Continue Lantus 15 units twice daily, insulin sliding scale Sleep apnea Noncompliant with CPAP. Reiterated compliance DVT prophylax Heparin 5000 every 8 CODE STATUS Full code, no mechanical ventilation Disposition; continue management of constipation, emphasizing compliance with lactulose, continue monitoring of orthostatic blood pressure, continue physical therapy. [facility] Supervising Physician Co-Signing Physician Notes Resident Physician Supervision Note: I independently interviewed and examined the patient and verified the chan history and physical, reviewed labs and image studies, discussed the case with the resident Dr. Escamilla and agree with the findings and care plan. Subjective 64-year-old male with a past medical history of alcoholic hepatitis presents with weakness and falls. Today the patient's abdominal pain and nausea is worsened. Nursing admits that the patient has been refusing lactulose dosing. Review of systems Constitutional; denies fevers, chills, night sweats Chest; denies chest pain, shortness of breath, palpitations Abdomen; improved abdominal pain, improved nausea Physical Exam Vital Signs (Past 24 Hours): Last Vital Signs Temp 36.6 C 01/31/19 07:00 Pulse 92 H 01/31/19 07:00 Resp 20 01/31/19 07:00 BP 104/70 01/31/19 07:00 Pulse Ox 94 01/31/19 07:00 Physical Exam: Constitutional: + ill appearing, + obese and + cushingoid Eyes: Bilateral exophthalmos, conjunctival hemorrhage in the right eye Neck: trachea midline, no thyromegaly Cardiovascular: Rate/Rhythm: regular rate and regular rhythm Gastrointestinal (Abdomen): Inspection/Auscultation: + abdomen distended and normal bowel sounds Percussion/Palpation: + abdomen tender Musculoskeletal: Extremities: + muscle atrophy (In all extremities) Skin: Skin is ecchymoticupper and lower extremities. Numerous excoriations on extremities as well. Psychiatric: Orientation: alert and oriented x 3 Results & Data Laboratory Results Laboratory Last Values WBC 5.80 K/uL (4.8-10.8) 01/30/19 05:53 RBC 3.39 M/uL (4.7-6.1) L 01/30/19 05:53 Hgb 7.7 g/dL (14.0-18.0) L 01/30/19 05:53 Hct 25.2 % (42-52) L 01/30/19 05:53 MCV 74.3 fL (80-100) L 01/30/19 05:53 MCH 22.7 pg (25-34) L 01/30/19 05:53 MCHC 30.6 g/dL (32-36) L 01/30/19 05:53 RDW Std Deviation 57.0 fL (36.4-46.3) H 01/30/19 05:53 RDW Coeff of Curt 20.9 % (11.5-14.5) H 01/30/19 05:53 Plt Count 92 K/uL (130-400) L 01/30/19 05:53 MPV 9.1 fL (7.4-10.4) 01/30/19 05:53 Immature Gran % (Auto) 0.9 % 01/30/19 05:53 Neut % (Auto) 75.2 % 01/30/19 05:53 Lymph % (Auto) 8.6 % 01/30/19 05:53 [place] % (Auto) 14.1 % 01/30/19 05:53 Eos % (Auto) 1.0 % 01/30/19 05:53 Baso % (Auto) 0.2 % 01/30/19 05:53 Immature Gran # (Auto) 0.05 K/uL (0.00-0.02) H 01/30/19 05:53 Neut # (Auto) 4.36 K/uL (1.4-6.5) 01/30/19 05:53 Lymph # (Auto) 0.50 K/uL (1.2-3.4) L 01/30/19 05:53 [place] # (Auto) 0.82 K/uL (0.11-0.59) H 01/30/19 05:53 Eos # (Auto) 0.06 K/uL (0-0.5) 01/30/19 05:53 Baso # (Auto) 0.01 K/uL (0-0.2) 01/30/19 05:53 Absolute Nucleated RBC 0.02 K/uL (0-0) H 01/28/19 05:49 Nucleated RBC % (auto) 0.3 % 01/28/19 05:49 Toxic Granulation 2+ 01/30/19 05:53 Platelet Estimate Decreased (Normal) 01/30/19 05:53 Hypochromasia Present 01/28/19 05:49 Anisocytosis Present 01/30/19 05:53 Microcytosis Present 01/30/19 05:53 PT 12.4 Seconds (9.0-12.0) H 01/26/19 14:10 INR 1.2 (0.9-1.1) H 01/26/19 14:10 Sodium 136 mmol/L (136-145) 01/30/19 05:53 Potassium 3.5 mmol/L (3.5-5.1) 01/30/19 05:53 Chloride 101 mmol/L (98-107) 01/30/19 05:53 Carbon Dioxide 28 mmol/L (21-32) 01/30/19 05:53 Anion Gap 7.0 (3-11) 01/30/19 05:53 BUN 29 mg/dl (7-18) H 01/30/19 05:53 Creatinine 1.40 mg/dl (0.6-1.4) 01/30/19 05:53 Est Cr Clr Drug Dosing 52.6 ml/min 01/30/19 05:53 Est GFR ( Amer) 60.3 01/30/19 05:53 Est GFR (Non-Af Amer) 52.0 01/30/19 05:53 BUN/Creatinine Ratio 20.8 (10-20) H 01/30/19 05:53 Glucose 46 mg/dl (70-99) L* 01/30/19 05:53 POC Glucose 86 (70-99) 01/31/19 07:46 Estimat Average Glucose 148 mg/dl 01/27/19 06:40 Hemoglobin A1c 6.8 % (4.5-5.6) H 01/27/19 06:40 Calcium 7.5 mg/dl (8.5-10.1) L 01/30/19 05:53 Phosphorus 3.6 mg/dl (2.5-4.9) 01/27/19 06:40 Magnesium 2.2 mg/dl (1.8-2.4) 01/27/19 06:40 Total Bilirubin 1.8 mg/dl (0.2-1) H 01/26/19 14:10 AST 39 U/L (15-37) H 01/26/19 14:10 ALT 33 U/L (12-78) 01/26/19 14:10 Alkaline Phosphatase 321 U/L (45-117) H 01/26/19 14:10 Ammonia 55.0 umol/L (11-32) H 01/26/19 19:03 Total Protein 5.6 gm/dl (6.4-8.2) L 01/26/19 14:10 Albumin 2.1 gm/dl (3.4-5.0) L 01/26/19 14:10 Globulin 3.5 gm/dl (2.5-4.0) 01/26/19 14:10 Albumin/Globulin Ratio 0.6 (0.9-2) L 01/26/19 14:10 Resident Activity Tracking Resident Involvement: Resident Care Provided Care Provided: Adult [facility] Medicine
[2019-01-31] MEDS: MoRPHine SULFATE 2 MG/ML CARP IV PRN (15:59)
[2019-01-31] MEDS: ATORVASTATIN 10 MG TAB PO SCH (21:32)
[2019-02-01] MEDS: ACETAMINOPHEN 325 MG TAB PO PRN (00:26)
[2019-02-01] MEDS: MoRPHine SULFATE 2 MG/ML CARP IV PRN ×2 (01:16→13:45)
[2019-02-01 06:40] LABS: Mean Corpuscular Hgb Conc 30.8 g/dL (32-36)
[2019-02-01] MEDS: CARBOHYDRATES FOR HYPOGLYCEMIA PO PRN (06:45)
[2019-02-01 06:53] LABS: Hematocrit (blood only) 23.7 % (42-52); Hemoglobin 7.3 g/dL (14.0-18.0); Mean Corpuscular Volume 73.6 fL (80-100); RDW Coefficient of Variation 20.5 % (11.5-14.5); RDW Standard Deviation 54.9 fL (36.4-46.3); Red Blood Count 3.22 M/uL (4.7-6.1); White Blood Count 6.36 K/uL (4.8-10.8)
[2019-02-01 07:27] LABS: Mean Platelet Volume 9.5 fL (7.4-10.4); Platelet Count 92 K/uL (130-400)
[2019-02-01 07:29] LABS: Anisocytosis Present; Basophilic Stippling 1+; Basophils # (auto) 0.01 K/uL (0-0.2); Basophils % (auto) 0.2 %; Eosinophils # (auto) 0.12 K/uL (0-0.5); Eosinophils % (auto) 1.9 %; Hypochromasia Present; Immature Granulocytes # (auto) 0.08 K/uL (0.00-0.02); Immature Granulocytes % (auto) 1.3 %; Lymphocytes # (auto) 0.55 K/uL (1.2-3.4); Lymphocytes % (auto) 8.6 %; Microcytosis Present; Monocytes # (auto) 0.89 K/uL (0.11-0.59); Neutrophils # (auto) 4.71 K/uL (1.4-6.5); Platelet Estimate Decreased (Normal); Toxic Granulation 1+
[2019-02-01 07:39] LABS: BUN Creatinine Ratio 22.2 (10-20); Calcium 7.9 mg/dl (8.5-10.1); Creatinine Clr Calc Pharmacy 51.1 ml/min; Est GFR (African American) 58.2; Est GFR (Non-African American) 50.2; Potassium 3.9 mmol/L (3.5-5.1)
[2019-02-01] MEDS: SPIRONOLACTONE 25 MG TAB PO SCH (08:40)
[2019-02-01] MEDS: SULFAMETHOXAZOLE/TRIMETHOPRIM DS 800/160MG TAB PO SCH (08:40)
[2019-02-01] MEDS: PANTOprazole 40 MG TAB PO SCH (08:40)
[2019-02-01] MEDS: predniSONE 20 MG TAB PO SCH (08:40)
[2019-02-01] MEDS: RIFAXIMIN 550 MG TABLET PO SCH ×2 (08:41→21:24)
[2019-02-01] MEDS: POTASSIUM CHLORIDE 10 MEQ TABCR PO SCH ×2 (08:41→21:19)
[2019-02-01] MEDS: PROPRANOLOL HCL 10 MG TAB PO SCH (08:42)
[2019-02-01] MEDS: FUROSEMIDE 40 MG TAB PO SCH ×2 (08:43→18:17)
[2019-02-01] MEDS: FLUOXETINE HCL 20 MG CAP PO SCH (08:43)
[2019-02-01] MEDS: LACTULOSE SYRUP 10 GM/15 ML BTL 473 ML PO SCH ×3 (08:44→21:18)
[2019-02-01] MEDS: ARTIFICIAL TEARS OPB SCH ×2 (08:44→21:17)
[2019-02-01] MEDS: HEPARIN SOD 5,000 UNIT/0.5 ML VIAL SQ SCH ×2 (08:45→21:41)
[2019-02-01] MEDS: PENTOXIFYLLINE 400MG EXT REL TAB PO SCH ×2 (08:46→21:22)
[2019-02-01] MEDS: INSULIN GLARGINE SOLOSTAR 100 UNITS/ML 3 ML PEN SQ SCH ×2 (08:47→21:41)
[2019-02-01] MEDS: INSULIN ASPART 100 UNITS/ML 3 ML PEN SC SCH ×4 (09:53→21:42)
--- NOTE | 2019-02-01 20:37 | Family Medicine Progress Note ---
Date of Service February 01, 2019 Assessment & Plan (1) Ambulatory dysfunction: 64M with a history of alcoholic hepatitis presents with ambulatory dysfunction, chronic. He recently has had a progression with frequent falls, 7 in the past month. Patient suffered a fall on 01/26/2019 where he fell flat on his face. Pt has refused placement in the past and now is agreeable to rehab placement. Ambulatory dysfunction, frequent falls Causes likely multifactorial; hyperammonemia, deconditioning/muscle wasting of the extremities, orthostasis on diuretics No clinically significant fractures on x-ray, no cranial fractures or intracranial bleed seen on CT PT/OT evaluate the patient with planned to transfer to [facility] for outpatient rehab Orthostatic hypotension Patient is currently being treated with Lasix 40 mg twice daily Patient has a delicate fluid balance considering baseline cirrhosis/hypoalbuminemia, currently appears intravascularly depleted, creatinine is at baseline 1.4 BUN, 29 No change to regimen at this time but will encourage p.o. hydration and reassessment of orthostatic pressures. Nausea/vomiting/constipation Nausea resolved today, pt is now taking his lactulose after previous refusing. Nursing to inform us when the patient defers medication We will not increase the dose of lactulose at this time, but will follow compliance. Ecchymotic upper lower extremity, scattered excoriations Wound care on board. Nasal bone fracture Follow-up with ENT in the outpatient setting Bilateral parotid gland nodules Incidentally found on spiral CT 1.8 cm nodule on inferior aspect of right parotid gland, seen on CT Radiology recommends nonemergent follow-up Alcoholic cirrhosis Meld score of 14 Continue Lasix 40 mg p.o. twice daily Continue lactulose, rifaximin, spironolactone, propranolol Anemia, microcytic Likely secondary to chronic disease, no signs of acute blood loss Currently at the patient's baseline Continue propranolol for prevention of variceal bleeding Hyperammonemia Chronic in the setting of alcoholic cirrhosis Continue lactulose Depression/anxiety Continue fluoxetine GERD c/w Protonix 40 mg daily Type 2 diabetes Continue atorvastatin 10 mg Continue Lantus 15 units twice daily, insulin sliding scale Sleep apnea Noncompliant with CPAP. Reiterated compliance DVT prophylax Heparin 5000 every 8 CODE STATUS Full code, no mechanical ventilation Disposition; DC to [facility] likely Monday. Supervising Physician Co-Signing Physician Notes Resident Physician Supervision Note: I independently interviewed and examined the patient and verified the chan histor y and physical, reviewed labs and image studies, discussed the case with the resident Dr. Brambila and agree with the findings and care plan. Subjective Pt was seen and examined at bedside. Emphasis on taking meds given. Pt had two large BM overnight. No other complaints. ROS: No chest pain, no SOB, no dyspnea on exertion, no palpitations, no fevers, no chills, no nausea, no vomiting, no diarrhea, no dysuria, no rash. Physical Exam Vital Signs (Past 24 Hours): Last Vital Signs Temp 36.8 C 02/01/19 15:07 Pulse 86 02/01/19 15:07 Resp 18 02/01/19 15:07 BP 121/72 02/01/19 15:07 Pulse Ox 92 02/01/19 15:07 Constitutional: WD/WN, vitals as above + obese and + cushingoid Eyes: + periorbital abnormality (Bruising on inferior orbital rim, hematoma within R sclera) Neck: trachea midline, no thyromegaly normal visual inspection and trachea midline Respiratory: normal respiratory effort, lungs clear to auscultation Cardiovascular: Rate/Rhythm: regular rate and regular rhythm Gastrointestinal (Abdomen): Inspection/Auscultation: + abdomen distended and normal bowel sounds Percussion/Palpation: abdomen soft and + hernia (LLQ) Musculoskeletal: Head/Neck/Chest: normocephalic and head atraumatic Extremities: + muscle atrophy (In all extremities) Skin: no rashes, warm and dry Neurologic: awake; not confused Speech / Cognition: normal speech Psychiatric: A+Ox3, euthymic affect Orientation: alert and oriented x 3 Resident Activity Tracking Resident Involvement: Resident Care Provided Care Provided: Adult Hospital Medicine
[2019-02-01] MEDS: ONDANSETRON INJ 2 MG/ML 2 ML VIAL IV PRN (21:14)
[2019-02-01] MEDS: ATORVASTATIN 10 MG TAB PO SCH (21:22)
[2019-02-02] MEDS: PROMETHAZINE HCL 25 MG TAB PO PRN (01:50)
[2019-02-02] MEDS: CARBOHYDRATES FOR HYPOGLYCEMIA PO PRN (03:30)
[2019-02-02] MEDS: ONDANSETRON INJ 2 MG/ML 2 ML VIAL IV PRN (08:23)
[2019-02-02] MEDS: INSULIN GLARGINE SOLOSTAR 100 UNITS/ML 3 ML PEN SQ SCH (09:36)
[2019-02-02] MEDS: INSULIN ASPART 100 UNITS/ML 3 ML PEN SC SCH ×2 (09:38→12:59)
[2019-02-02] MEDS ORDERED: PROMETHAZINE HCL 6.25 MG in SODIUM CHLORIDE 0.9% 50 ML IV ONE (09:45)
[2019-02-02] MEDS ORDERED: Nursing to Pharmacy Communication ONE (10:09)
[2019-02-02] MEDS: ARTIFICIAL TEARS OPB SCH (10:25)
[2019-02-02] MEDS: HEPARIN SOD 5,000 UNIT/0.5 ML VIAL SQ SCH (10:26)
[2019-02-02] MEDS: SPIRONOLACTONE 25 MG TAB PO SCH (11:16)
[2019-02-02] MEDS: LACTULOSE SYRUP 10 GM/15 ML BTL 473 ML PO SCH (11:18)
[2019-02-02] MEDS: PROPRANOLOL HCL 10 MG TAB PO SCH (11:21)
[2019-02-02] MEDS: POTASSIUM CHLORIDE 10 MEQ TABCR PO SCH (11:22)
[2019-02-02] MEDS: FUROSEMIDE 40 MG TAB PO SCH (11:22)
[2019-02-02] MEDS: FLUOXETINE HCL 20 MG CAP PO SCH (11:23)
[2019-02-02] MEDS: PANTOprazole 40 MG TAB PO SCH (11:23)
[2019-02-02] MEDS: predniSONE 20 MG TAB PO SCH (11:23)
[2019-02-02] MEDS: RIFAXIMIN 550 MG TABLET PO SCH (11:24)
[2019-02-02] MEDS: PENTOXIFYLLINE 400MG EXT REL TAB PO SCH (11:24)
--- NOTE | 2019-02-02 12:24 | Discharge Summary ---
Date of Service February 02, 2019 Admission HPI Per Admitting Provider 64 y/o M c/o weakness and falls. states pt has fallen seven times in the last month or so. These falls are related to pt attempting to ambulate on his own. states that today, they were transferring pt from bedside commode to chair. She turned away from him to situate the supplies they were using and pt attempted to ambulate without assistance. He fell straight forward "flat on his face". He was unable to support himself at all. Pt did not, nor has he recently passed out. states that they saw PCP on 01/21. It was recommended that pt be placed at that time, however they were trying to avoid this. Home PT/OT evals were being done in attempt to trial home therapy first. Pt states that he has pain to his R LE which he landed on during his fall. He states he is lightheaded and family states this is usual for him. He usually has diarrhea related to lactulose use. states he is to take lactulose BID, "but I am happy if I can get him to take even one a day". Pt has a better appetite in the AM, but is generally too fatigued to eat later in the day. He frequently has emesis with meals, although not all meals and not every day. Pt denies any other pain at present. Pt denies fever, SOB, chest pain, abd pain, LE swelling. Family states that pt is generally interactive, but that this has been less s/p pain meds in the ED. Principal Diagnosis Frequent falls in patient with alcoholic cirrhosis Discharge Exam Constitutional: WD/WN, vitals as above + obese and + cushingoid Eyes: + periorbital abnormality (Bruising on inferior orbital rim, hematoma within R sclera) Neck: trachea midline, no thyromegaly normal visual inspection and trachea midline Respiratory: normal respiratory effort, lungs clear to auscultation Cardiovascular: Rate/Rhythm: regular rate and regular rhythm, 2/6 murmur at RUSB Gastrointestinal (Abdomen): Inspection/Auscultation: + abdomen distended and normal bowel sounds Percussion/Palpation: abdomen soft and + hernia (LLQ), chronic skin changes on left lower part of abdomen Head/Neck/Chest: normocephalic and head atraumatic Extremities: + muscle atrophy (In all extremities) Skin: no rashes, warm and dry, diffuse bruising Neurologic: awake; not confused Speech / Cognition: normal speech Psychiatric: A+Ox3, euthymic affect Orientation: alert and oriented x 3 Discharge Data Allergies Allergy/AdvReac Type Severity Reaction Status Date / Time celecoxib Allergy Intermediate HIVES Verified 01/26/19 14:59 Penicillins Allergy Intermediate HIVES Verified 01/26/19 14:59 Consultations 01/26/19 16:11 ED Decision to Admit Stat 01/26/19 18:50 Consult Case Management - Discharge Planning Routine Ordered Studies 01/26/19 14:23 CT cervical spine wo con Stat CT facial bones wo con Stat CT head/brain wo con Stat Hospital Course (1) Ambulatory dysfunction: (1) Ambulatory dysfunction: 64M with a history of alcoholic cirrhosis presents with ambulatory dysfunction, chronic. He recently has had a progression with frequent falls, 7 in the past month. Patient suffered a fall on 01/26/2019 where he fell flat on his face. Pt has refused placement in the past and now is agreeable to rehab placement. Dr. Koehler did discuss with patient and the fact that he is likely to fail rehab and will likely need SNF placement/Hospice discussion. Patient and would like to try rehab first despite Dr. Koehler's recommendations. Ambulatory dysfunction, frequent falls Causes likely multifactorial; hyperammonemia, deconditioning/muscle wasting of the extremities, orthostasis on diuretics Patient has a nasal bone fracture, no cranial fractures or intracranial bleed seen on CT PT/OT evaluate the patient with planned to transfer to [facility] for outpatient rehab Orthostatic hypotension Patient has a delicate fluid balance considering baseline cirrhosis/hypoalbuminemia. Continue Lasix 40 mg twice daily No change to regimen at this time but will need encouragement of p.o. hydration and reassessment of [facility]ostatic [facility] Ecchymotic upper and lower extremity, scattered excoriations Likely secondary to cirrhosis and recurrent falls Nasal bone fracture Follow-up with ENT in the outpatient setting Bilateral parotid gland nodules Incidentally found on spiral CT 1.8 cm nodule on inferior aspect of right parotid gland, seen on CT Radiology recommends nonemergent follow-up in 3-6 months with US Alcoholic cirrhosis Meld score of 14 Continue Lasix 40 mg p.o. twice daily Continue lactulose, rifaximin, spironolactone, propranolol Anemia, microcytic Likely secondary to chronic disease, no signs of acute blood loss Currently at the patient's baseline (7-8) Continue propranolol for prevention of variceal bleeding Hyperammonemia Chronic in the setting of alcoholic cirrhosis Continue lactulose Depression/anxiety Continue fluoxetine GERD - Continue Protonix 40 mg daily Type 2 diabetes Continue atorvastatin 10 mg Continue Lantus 15 units twice daily, insulin sliding scale Sleep apnea Noncompliant with CPAP, patient continue to refuse in hospital CODE STATUS Full code, no mechanical ventilation Total Time Total Time Spent Total Time Spent (In Minutes): 30 Discharge Plan Discharge Items Patient Disposition: Transfer Inpatient Rehab Fac Reason For Visit: WEAKNESS, FALLS Discharge Diagnosis: Recurrent falls Discharge Goals: Diagnostic testing, Improve disease control and Improve function Activity: Resume your previous activity Non-emergency contact: Primary Care Provider Call non-emergency contact if: you have any medication questions Follow-up/Referrals: Hu Nielsen MD [Primary Care Provider] - Diet: Carb Count or DM1 Addtl Provider Instructions: We will be discharging you to [facility] for acute rehab Prescriptions: Continued prednisone 20 mg Tablet 20 mg PO DAILY Qty: 0 RF: 0 levalbuterol HCl 1.25 mg/3 mL Solution For Nebulization 1.25 mg Inhalation Q4 MDD 7.5 PRN (Reason: Shortness Of Breath) Qty: 0 RF: 0 propranolol 10 mg Tablet 5 mg PO DAILY Qty: 0 RF: 0 pantoprazole [Protonix] 40 mg Tablet,Delayed Release (Dr/Ec) 40 mg PO DAILY Qty: 0 RF: 0 fluoxetine [Prozac] 40 mg Capsule 40 mg PO QAM Qty: 0 RF: 0 atorvastatin [Lipitor] 10 mg Tablet 10 mg PO HS Qty: 0 RF: 0 rifaximin 550 mg Tablet 550 mg PO BID Qty: 0 RF: 0 Lantus U-100 Insulin 100 unit/mL Solution 15 units subcut BID Qty: 0 RF: 0 albuterol sulfate 2.5 mg /3 mL (0.083 %) Solution For Nebulization 2.5 mg Inhalation Q4 PRN (Reason: Shortness Of Breath) Qty: 0 RF: 0 furosemide [Lasix] 40 mg Tablet 40 mg PO BID Qty: 0 RF: 0 pentoxifylline 400 mg Tablet Extended Release 400 mg PO BID Qty: 0 RF: 0 mometasone 50 mcg/actuation [place],Non-Aerosol 2 spray INTRANASAL DAILY PRN (Reason: Congestion) Qty: 0 RF: 0 albuterol sulfate [Ventolin HFA] 90 mcg/actuation Hfa Aerosol Inhaler 2 puff INHALATION Q6H MDD 12 puffs PRN (Reason: Shortness Of Breath) Qty: 0 RF: 0 spironolactone [Aldactone] 50 mg Tablet 50 mg PO DAILY Qty: 0 RF: 0 Novolog PenFill U-100 Insulin 100 unit/mL Cartridge SUBCUT UD RF: 0 simethicone [Gas-X Extra Strength] 125 mg Capsule 125 mg PO UD PRN (Reason: Abdominal Discomfort) RF: 0 sulfamethoxazole-trimethoprim [Bactrim DS] 800-160 mg tablet 1 tab PO 3XWK RF: 0 Refresh Celluvisc 1 % Dropperette,Gel 1 drp OPB BID RF: 0 potassium chloride 10 mEq tablet,ER particles/crystals 10 meq PO BID RF: 0 lactulose 10 gram/15 mL Solution 15 mg PO BID RF: 0 promethazine 25 mg Tablet 25 mg PO Q6H PRN (Reason: Nausea) RF: 0 Stand-Alone Forms: [facility] Discharge Orders: Discharge Order (Routine); Ordered 02/02/19 Ordered By: Gagandeep Yanes Skilled Items Patient informed of condition?: Yes DNR: No Discharge Level of Care: Acute rehab Communicable Disease: No Discharge Prognosis: Stable Admission Data Admit Date/Time: 01/26/19 17:50 Attending Provider: Ashley Koehler Admit Provider: Velia Rivero Primary Care Provider: Hu Nielsen Other Providers: Dennis Mckeon Service: Medical Other Interventions: Discharge Summary Assessment (RN) Last Done: 02/02/19 13:04 DC Date/Time DO NOT enter until pt leaves facility: 02/02/19 15:00 Supervising Physician Co-Signing Physician Notes Resident Physician Supervision Note: I independently interviewed and examined the patient and verified the chan history and physical, reviewed labs and image studies, discussed the case with the resident Dr. Yanes and agree with the findings and care plan. Time spent in discharge 40min
--- NOTE | 2019-02-20 13:02 | Emergency Department Note ---
ED Provider Note I was asked by Dr. Lemus to evaluate and treat the skin tear on the right lower extremity in addition to the nose. Please see his note for details on physical exam. There was a fairly large skin tear noted to the right lower extremity. This was first anesthetized with let gel. Once there is proper anesthesia, the wound was thoroughly cleansed with Betadine and irrigated with normal saline. No foreign bodies were noted. No active bleeding. The wound was bandaged in a Xeroform dressing. The patient tolerated the procedure well. There was a small, 2 mm laceration noted to the bridge of the nose. The edges do not gape apart with traction. This was also treated with Betadine. It was irrigated with normal saline. Bacitracin was applied. The patient tolerated the procedure well. Impression & Plan Generalized weakness, Ambulatory dysfunction, Nasal bone fracture, Noninfected skin tear of right leg, Laceration of nose Past Med/Surg History Medical History Abdominal pain (Acute) Abscess in epidural space of lumbar spine (Acute) Altered mental status (Acute) Asthma (Acute) Diabetic autonomic neuropathy (Acute) Diarrhea (Acute) Fall in home (Acute) Fever (Acute) Fungemia (Acute) Fusion of spine (Acute) GERD (gastroesophageal reflux disease) (Acute) GI bleed (Acute) Gram negative septicemia (Acute) Hepatic encephalopathy (Acute) Hyperammonemia (Acute) Hyperlipidemia (Acute) Hypertension (Acute) Hypertension (Acute) Hypokalemia (Acute) Hypoxia (Acute) Immunocompromised (Acute) Infection of lumbar spine (Acute) Kidney stones (Acute) Lactic acidosis (Acute) Left leg cellulitis (Acute) Lumbar compression fracture (Acute) Lumbar disc herniation with radiculopathy (Acute) Lumbar stenosis with neurogenic claudication (Acute) Marijuana smoker (Acute) Meningitis (Acute) Obesity (Acute) Open wound of LLQ of abdominal wall w/o penentrat into periton cavity (Acute) Peritonitis (acute) generalized (Acute) Pneumonia (Acute) Post op infection (Acute) Sarcoidosis (Acute) Sepsis (Acute) Septal defect (Acute) Septic shock (Acute) Severe sepsis (Acute) Sleep apnea (Acute) Tenosynovitis, de Quervain (Acute) Thrombocytopenia (Acute) Vomiting (Acute) Alcoholic cirrhosis Surgical History History of carpal tunnel release (Acute) History of cataract surgery (Acute) History of herniorrhaphy (Acute) History of lithotripsy (Acute) History of repair of rotator cuff (Acute) Family History Father Heart attack Social History Preferred Language: Lithuanian Beliefs That Will Affect Care: None marital status: Current Living Situation: Spouse Other Information That Helps Us Care for You: No Feels Safe at Home: Yes Safety Concerns: Feels Safe At This Time Smoking Status: Never smoker Hx Alcohol Use: No Hx Substance Use: No Results & Data Laboratory Data Result diagrams: 02/01/19 06:17 02/01/19 06:17 Lab Results 01/26/19 01/26/19 01/26/19 Range/Units 14:10 14:10 14:10 WBC 6.32 (4.8-10.8) K/uL RBC 3.63 L (4.7-6.1) M/uL Hgb 8.2 L (14.0-18.0) g/dL Hct 27.4 L (42-52) % MCV 75.5 L (80-100) fL MCH 22.6 L (25-34) pg MCHC 29.9 L (32-36) g/dL RDW Std Deviation 59.5 H (36.4-46.3) fL RDW Coeff of Curt 21.5 H (11.5-14.5) % Plt Count 121 L (130-400) K/uL MPV 9.8 (7.4-10.4) fL Immature Gran % (Auto) 1.3 % Neut % (Auto) 71.0 % Lymph % (Auto) 7.4 % [place] % (Auto) 18.8 % Eos % (Auto) 1.3 % Baso % (Auto) 0.2 % Immature Gran # (Auto) 0.08 H (0.00-0.02) K/uL Neut # (Auto) 4.49 (1.4-6.5) K/uL Lymph # (Auto) 0.47 L (1.2-3.4) K/uL [place] # (Auto) 1.19 H (0.11-0.59) K/uL Eos # (Auto) 0.08 (0-0.5) K/uL Baso # (Auto) 0.01 (0-0.2) K/uL Absolute Nucleated RBC 0.02 H (0-0) K/uL Nucleated RBC % (auto) 0.3 % Toxic Granulation Platelet Estimate (Normal) Hypochromasia Present Basophilic Stippling Anisocytosis Present Microcytosis Present PT 12.4 H (9.0-12.0) Seconds INR 1.2 H (0.9-1.1) Sodium 137 (136-145) mmol/L Potassium 3.7 (3.5-5.1) mmol/L Chloride 102 (98-107) mmol/L Carbon Dioxide 28 (21-32) mmol/L Anion Gap 7.0 (3-11) BUN 30 H (7-18) mg/dl Creatinine 1.51 H (0.6-1.4) mg/dl Est Cr Clr Drug Dosing 48.8 ml/min Est GFR ( Amer) 55.0 Est GFR (Non-Af Amer) 47.4 BUN/Creatinine Ratio 20.0 (10-20) Glucose 156 H (70-99) mg/dl POC Glucose (70-99) Estimat Average Glucose mg/dl Hemoglobin A1c (4.5-5.6) % Calcium 7.8 L (8.5-10.1) mg/dl Phosphorus (2.5-4.9) mg/dl Magnesium (1.8-2.4) mg/dl Total Bilirubin 1.8 H (0.2-1) mg/dl AST 39 H (15-37) U/L ALT 33 (12-78) U/L Alkaline Phosphatase 321 H (45-117) U/L Ammonia (11-32) umol/L Total Protein 5.6 L (6.4-8.2) gm/dl Albumin 2.1 L (3.4-5.0) gm/dl Globulin 3.5 (2.5-4.0) gm/dl Albumin/Globulin Ratio 0.6 L (0.9-2) 01/26/19 01/26/19 01/27/19 Range/Units 19:03 20:24 06:40 WBC 4.28 L (4.8-10.8) K/uL RBC 3.44 L (4.7-6.1) M/uL Hgb 7.7 L (14.0-18.0) g/dL Hct 25.6 L (42-52) % MCV 74.4 L (80-100) fL MCH 22.4 L (25-34) pg MCHC 30.1 L (32-36) g/dL RDW Std Deviation 58.5 H (36.4-46.3) fL RDW Coeff of Curt 21.5 H (11.5-14.5) % Plt Count 92 L (130-400) K/uL MPV 9.8 (7.4-10.4) fL Immature Gran % (Auto) 0.9 % Neut % (Auto) 75.8 % Lymph % (Auto) 11.0 % [place] % (Auto) 12.1 % Eos % (Auto) 0.0 % Baso % (Auto) 0.2 % Immature Gran # (Auto) 0.04 H (0.00-0.02) K/uL Neut # (Auto) 3.24 (1.4-6.5) K/uL Lymph # (Auto) 0.47 L (1.2-3.4) K/uL [place] # (Auto) 0.52 (0.11-0.59) K/uL Eos # (Auto) 0.00 (0-0.5) K/uL Baso # (Auto) 0.01 (0-0.2) K/uL Absolute Nucleated RBC (0-0) K/uL Nucleated RBC % (auto) % Toxic Granulation Platelet Estimate (Normal) Hypochromasia Basophilic Stippling Anisocytosis Present Microcytosis Present PT (9.0-12.0) Seconds INR (0.9-1.1) Sodium (136-145) mmol/L Potassium (3.5-5.1) mmol/L Chloride (98-107) mmol/L Carbon Dioxide (21-32) mmol/L Anion Gap (3-11) BUN (7-18) mg/dl Creatinine (0.6-1.4) mg/dl Est Cr Clr Drug Dosing ml/min Est GFR ( Amer) Est GFR (Non-Af Amer) BUN/Creatinine Ratio (10-20) Glucose (70-99) mg/dl POC Glucose 206 H (70-99) Estimat Average Glucose mg/dl Hemoglobin A1c (4.5-5.6) % Calcium (8.5-10.1) mg/dl Phosphorus (2.5-4.9) mg/dl Magnesium (1.8-2.4) mg/dl Total Bilirubin (0.2-1) mg/dl AST (15-37) U/L ALT (12-78) U/L Alkaline Phosphatase (45-117) U/L Ammonia 55.0 H (11-32) umol/L Total Protein (6.4-8.2) gm/dl Albumin (3.4-5.0) gm/dl Globulin (2.5-4.0) gm/dl Albumin/Globulin Ratio (0.9-2) 01/27/19 01/27/19 01/27/19 Range/Units 06:40 06:40 07:41 WBC (4.8-10.8) K/uL RBC (4.7-6.1) M/uL Hgb (14.0-18.0) g/dL Hct (42-52) % MCV (80-100) fL MCH (25-34) pg MCHC (32-36) g/dL RDW Std Deviation (36.4-46.3) fL RDW Coeff of Curt (11.5-14.5) % Plt Count (130-400) K/uL MPV (7.4-10.4) fL Immature Gran % (Auto) % Neut % (Auto) % Lymph % (Auto) % [place] % (Auto) % Eos % (Auto) % Baso % (Auto) % Immature Gran # (Auto) (0.00-0.02) K/uL Neut # (Auto) (1.4-6.5) K/uL Lymph # (Auto) (1.2-3.4) K/uL [place] # (Auto) (0.11-0.59) K/uL Eos # (Auto) (0-0.5) K/uL Baso # (Auto) (0-0.2) K/uL Absolute Nucleated RBC (0-0) K/uL Nucleated RBC % (auto) % Toxic Granulation Platelet Estimate (Normal) Hypochromasia Basophilic Stippling Anisocytosis Microcytosis PT (9.0-12.0) Seconds INR (0.9-1.1) Sodium 137 (136-145) mmol/L Potassium 4.0 (3.5-5.1) mmol/L Chloride 103 (98-107) mmol/L Carbon Dioxide 28 (21-32) mmol/L Anion Gap 6.0 (3-11) BUN 31 H (7-18) mg/dl Creatinine 1.47 H (0.6-1.4) mg/dl Est Cr Clr Drug Dosing 50.1 ml/min Est GFR ( Amer) 56.8 Est GFR (Non-Af Amer) 49.0 BUN/Creatinine Ratio 21.4 H (10-20) Glucose 159 H (70-99) mg/dl POC Glucose 146 H (70-99) Estimat Average Glucose 148 mg/dl Hemoglobin A1c 6.8 H (4.5-5.6) % Calcium 8.0 L (8.5-10.1) mg/dl Phosphorus 3.6 (2.5-4.9) mg/dl Magnesium 2.2 (1.8-2.4) mg/dl Total Bilirubin (0.2-1) mg/dl AST (15-37) U/L ALT (12-78) U/L Alkaline Phosphatase (45-117) U/L Ammonia (11-32) umol/L Total Protein (6.4-8.2) gm/dl Albumin (3.4-5.0) gm/dl Globulin (2.5-4.0) gm/dl Albumin/Globulin Ratio (0.9-2) 01/27/19 01/27/19 01/27/19 Range/Units 11:59 17:11 17:12 WBC (4.8-10.8) K/uL RBC (4.7-6.1) M/uL Hgb (14.0-18.0) g/dL Hct (42-52) % MCV (80-100) fL MCH (25-34) pg MCHC (32-36) g/dL RDW Std Deviation (36.4-46.3) fL RDW Coeff of Curt (11.5-14.5) % Plt Count (130-400) K/uL MPV (7.4-10.4) fL Immature Gran % (Auto) % Neut % (Auto) % Lymph % (Auto) % [place] % (Auto) % Eos % (Auto) % Baso % (Auto) % Immature Gran # (Auto) (0.00-0.02) K/uL Neut # (Auto) (1.4-6.5) K/uL Lymph # (Auto) (1.2-3.4) K/uL [place] # (Auto) (0.11-0.59) K/uL Eos # (Auto) (0-0.5) K/uL Baso # (Auto) (0-0.2) K/uL Absolute Nucleated RBC (0-0) K/uL Nucleated RBC % (auto) % Toxic Granulation Platelet Estimate (Normal) Hypochromasia Basophilic Stippling Anisocytosis Microcytosis PT (9.0-12.0) Seconds INR (0.9-1.1) Sodium (136-145) mmol/L Potassium (3.5-5.1) mmol/L Chloride (98-107) mmol/L Carbon Dioxide (21-32) mmol/L Anion Gap (3-11) BUN (7-18) mg/dl Creatinine (0.6-1.4) mg/dl Est Cr Clr Drug Dosing ml/min Est GFR ( Amer) Est GFR (Non-Af Amer) BUN/Creatinine Ratio (10-20) Glucose (70-99) mg/dl POC Glucose 195 H 350 H 350 H (70-99) Estimat Average Glucose mg/dl Hemoglobin A1c (4.5-5.6) % Calcium (8.5-10.1) mg/dl Phosphorus (2.5-4.9) mg/dl Magnesium (1.8-2.4) mg/dl Total Bilirubin (0.2-1) mg/dl AST (15-37) U/L ALT (12-78) U/L Alkaline Phosphatase (45-117) U/L Ammonia (11-32) umol/L Total Protein (6.4-8.2) gm/dl Albumin (3.4-5.0) gm/dl Globulin (2.5-4.0) gm/dl Albumin/Globulin Ratio (0.9-2) 01/27/19 01/27/19 01/27/19 Range/Units 20:21 20:24 20:27 WBC (4.8-10.8) K/uL RBC (4.7-6.1) M/uL Hgb (14.0-18.0) g/dL Hct (42-52) % MCV (80-100) fL MCH (25-34) pg MCHC (32-36) g/dL RDW Std Deviation (36.4-46.3) fL RDW Coeff of Curt (11.5-14.5) % Plt Count (130-400) K/uL MPV (7.4-10.4) fL Immature Gran % (Auto) % Neut % (Auto) % Lymph % (Auto) % [place] % (Auto) % Eos % (Auto) % Baso % (Auto) % Immature Gran # (Auto) (0.00-0.02) K/uL Neut # (Auto) (1.4-6.5) K/uL Lymph # (Auto) (1.2-3.4) K/uL [place] # (Auto) (0.11-0.59) K/uL Eos # (Auto) (0-0.5) K/uL Baso # (Auto) (0-0.2) K/uL Absolute Nucleated RBC (0-0) K/uL Nucleated RBC % (auto) % Toxic Granulation Platelet Estimate (Normal) Hypochromasia Basophilic Stippling Anisocytosis Microcytosis PT (9.0-12.0) Seconds INR (0.9-1.1) Sodium (136-145) mmol/L Potassium (3.5-5.1) mmol/L Chloride (98-107) mmol/L Carbon Dioxide (21-32) mmol/L Anion Gap (3-11) BUN (7-18) mg/dl Creatinine (0.6-1.4) mg/dl Est Cr Clr Drug Dosing ml/min Est GFR ( Amer) Est GFR (Non-Af Amer) BUN/Creatinine Ratio (10-20) Glucose (70-99) mg/dl POC Glucose 410 H* 381 H* 360 H* (70-99) Estimat Average Glucose mg/dl Hemoglobin A1c (4.5-5.6) % Calcium (8.5-10.1) mg/dl Phosphorus (2.5-4.9) mg/dl Magnesium (1.8-2.4) mg/dl Total Bilirubin (0.2-1) mg/dl AST (15-37) U/L ALT (12-78) U/L Alkaline Phosphatase (45-117) U/L Ammonia (11-32) umol/L Total Protein (6.4-8.2) gm/dl Albumin (3.4-5.0) gm/dl Globulin (2.5-4.0) gm/dl Albumin/Globulin Ratio (0.9-2) 01/28/19 01/28/19 01/28/19 Range/Units 05:49 05:49 07:48 WBC 8.09 (4.8-10.8) K/uL RBC 3.69 L (4.7-6.1) M/uL Hgb 8.3 L (14.0-18.0) g/dL Hct 27.3 L (42-52) % MCV 74.0 L (80-100) fL MCH 22.5 L (25-34) pg MCHC 30.4 L (32-36) g/dL RDW Std Deviation 57.6 H (36.4-46.3) fL RDW Coeff of Curt 21.2 H (11.5-14.5) % Plt Count 123 L (130-400) K/uL MPV 9.5 (7.4-10.4) fL Immature Gran % (Auto) 1.4 % Neut % (Auto) 74.5 % Lymph % (Auto) 9.1 % [place] % (Auto) 14.2 % Eos % (Auto) 0.7 % Baso % (Auto) 0.1 % Immature Gran # (Auto) 0.11 H (0.00-0.02) K/uL Neut # (Auto) 6.02 (1.4-6.5) K/uL Lymph # (Auto) 0.74 L (1.2-3.4) K/uL [place] # (Auto) 1.15 H (0.11-0.59) K/uL Eos # (Auto) 0.06 (0-0.5) K/uL Baso # (Auto) 0.01 (0-0.2) K/uL Absolute Nucleated RBC 0.02 H (0-0) K/uL Nucleated RBC % (auto) 0.3 % Toxic Granulation 2+ Platelet Estimate Decreased (Normal) Hypochromasia Present Basophilic Stippling Anisocytosis Present Microcytosis PT (9.0-12.0) Seconds INR (0.9-1.1) Sodium 138 (136-145) mmol/L Potassium 3.8 (3.5-5.1) mmol/L Chloride 102 (98-107) mmol/L Carbon Dioxide 28 (21-32) mmol/L Anion Gap 8.0 (3-11) BUN 32 H (7-18) mg/dl Creatinine 1.49 H (0.6-1.4) mg/dl Est Cr Clr Drug Dosing 49.4 ml/min Est GFR ( Amer) 55.9 Est GFR (Non-Af Amer) 48.2 BUN/Creatinine Ratio 21.7 H (10-20) Glucose 63 L (70-99) mg/dl POC Glucose 82 (70-99) Estimat Average Glucose mg/dl Hemoglobin A1c (4.5-5.6) % Calcium 8.1 L (8.5-10.1) mg/dl Phosphorus (2.5-4.9) mg/dl Magnesium (1.8-2.4) mg/dl Total Bilirubin (0.2-1) mg/dl AST (15-37) U/L ALT (12-78) U/L Alkaline Phosphatase (45-117) U/L Ammonia (11-32) umol/L Total Protein (6.4-8.2) gm/dl Albumin (3.4-5.0) gm/dl Globulin (2.5-4.0) gm/dl Albumin/Globulin Ratio (0.9-2) 01/28/19 01/28/19 01/28/19 Range/Units 11:35 16:39 20:07 WBC (4.8-10.8) K/uL RBC (4.7-6.1) M/uL Hgb (14.0-18.0) g/dL Hct (42-52) % MCV (80-100) fL MCH (25-34) pg MCHC (32-36) g/dL RDW Std Deviation (36.4-46.3) fL RDW Coeff of Curt (11.5-14.5) % Plt Count (130-400) K/uL MPV (7.4-10.4) fL Immature Gran % (Auto) % Neut % (Auto) % Lymph % (Auto) % [place] % (Auto) % Eos % (Auto) % Baso % (Auto) % Immature Gran # (Auto) (0.00-0.02) K/uL Neut # (Auto) (1.4-6.5) K/uL Lymph # (Auto) (1.2-3.4) K/uL [place] # (Auto) (0.11-0.59) K/uL Eos # (Auto) (0-0.5) K/uL Baso # (Auto) (0-0.2) K/uL Absolute Nucleated RBC (0-0) K/uL Nucleated RBC % (auto) % Toxic Granulation Platelet Estimate (Normal) Hypochromasia Basophilic Stippling Anisocytosis Microcytosis PT (9.0-12.0) Seconds INR (0.9-1.1) Sodium (136-145) mmol/L Potassium (3.5-5.1) mmol/L Chloride (98-107) mmol/L Carbon Dioxide (21-32) mmol/L Anion Gap (3-11) BUN (7-18) mg/dl Creatinine (0.6-1.4) mg/dl Est Cr Clr Drug Dosing ml/min Est GFR ( Amer) Est GFR (Non-Af Amer) BUN/Creatinine Ratio (10-20) Glucose (70-99) mg/dl POC Glucose 181 H 121 H 174 H (70-99) Estimat Average Glucose mg/dl Hemoglobin A1c (4.5-5.6) % Calcium (8.5-10.1) mg/dl Phosphorus (2.5-4.9) mg/dl Magnesium (1.8-2.4) mg/dl Total Bilirubin (0.2-1) mg/dl AST (15-37) U/L ALT (12-78) U/L Alkaline Phosphatase (45-117) U/L Ammonia (11-32) umol/L Total Protein (6.4-8.2) gm/dl Albumin (3.4-5.0) gm/dl Globulin (2.5-4.0) gm/dl Albumin/Globulin Ratio (0.9-2) 03/11/0701/29/19 01/29/19 Range/Units 07:51 12:09 16:23 WBC (4.8-10.8) K/uL RBC (4.7-6.1) M/uL Hgb (14.0-18.0) g/dL Hct (42-52) % MCV (80-100) fL MCH (25-34) pg MCHC (32-36) g/dL RDW Std Deviation (36.4-46.3) fL RDW Coeff of Curt (11.5-14.5) % Plt Count (130-400) K/uL MPV (7.4-10.4) fL Immature Gran % (Auto) % Neut % (Auto) % Lymph % (Auto) % [place] % (Auto) % Eos % (Auto) % Baso % (Auto) % Immature Gran # (Auto) (0.00-0.02) K/uL Neut # (Auto) (1.4-6.5) K/uL Lymph # (Auto) (1.2-3.4) K/uL [place] # (Auto) (0.11-0.59) K/uL Eos # (Auto) (0-0.5) K/uL Baso # (Auto) (0-0.2) K/uL Absolute Nucleated RBC (0-0) K/uL Nucleated RBC % (auto) % Toxic Granulation Platelet Estimate (Normal) Hypochromasia Basophilic Stippling Anisocytosis Microcytosis PT (9.0-12.0) Seconds INR (0.9-1.1) Sodium (136-145) mmol/L Potassium (3.5-5.1) mmol/L Chloride (98-107) mmol/L Carbon Dioxide (21-32) mmol/L Anion Gap (3-11) BUN (7-18) mg/dl Creatinine (0.6-1.4) mg/dl Est Cr Clr Drug Dosing ml/min Est GFR ( Amer) Est GFR (Non-Af Amer) BUN/Creatinine Ratio (10-20) Glucose (70-99) mg/dl POC Glucose 118 H 139 H 232 H (70-99) Estimat Average Glucose mg/dl Hemoglobin A1c (4.5-5.6) % Calcium (8.5-10.1) mg/dl Phosphorus (2.5-4.9) mg/dl Magnesium (1.8-2.4) mg/dl Total Bilirubin (0.2-1) mg/dl AST (15-37) U/L ALT (12-78) U/L Alkaline Phosphatase (45-117) U/L Ammonia (11-32) umol/L Total Protein (6.4-8.2) gm/dl Albumin (3.4-5.0) gm/dl Globulin (2.5-4.0) gm/dl Albumin/Globulin Ratio (0.9-2) 01/29/19 01/30/19 01/30/19 Range/Units 20:06 05:53 05:53 WBC 5.80 (4.8-10.8) K/uL RBC 3.39 L (4.7-6.1) M/uL Hgb 7.7 L (14.0-18.0) g/dL Hct 25.2 L (42-52) % MCV 74.3 L (80-100) fL MCH 22.7 L (25-34) pg MCHC 30.6 L (32-36) g/dL RDW Std Deviation 57.0 H (36.4-46.3) fL RDW Coeff of Curt 20.9 H (11.5-14.5) % Plt Count 92 L (130-400) K/uL MPV 9.1 (7.4-10.4) fL Immature Gran % (Auto) 0.9 % Neut % (Auto) 75.2 % Lymph % (Auto) 8.6 % [place] % (Auto) 14.1 % Eos % (Auto) 1.0 % Baso % (Auto) 0.2 % Immature Gran # (Auto) 0.05 H (0.00-0.02) K/uL Neut # (Auto) 4.36 (1.4-6.5) K/uL Lymph # (Auto) 0.50 L (1.2-3.4) K/uL [place] # (Auto) 0.82 H (0.11-0.59) K/uL Eos # (Auto) 0.06 (0-0.5) K/uL Baso # (Auto) 0.01 (0-0.2) K/uL Absolute Nucleated RBC (0-0) K/uL Nucleated RBC % (auto) % Toxic Granulation 2+ Platelet Estimate Decreased (Normal) Hypochromasia Basophilic Stippling Anisocytosis Present Microcytosis Present PT (9.0-12.0) Seconds INR (0.9-1.1) Sodium 136 (136-145) mmol/L Potassium 3.5 (3.5-5.1) mmol/L Chloride 101 (98-107) mmol/L Carbon Dioxide 28 (21-32) mmol/L Anion Gap 7.0 (3-11) BUN 29 H (7-18) mg/dl Creatinine 1.40 (0.6-1.4) mg/dl Est Cr Clr Drug Dosing 52.6 ml/min Est GFR ( Amer) 60.3 Est GFR (Non-Af Amer) 52.0 BUN/Creatinine Ratio 20.8 H (10-20) Glucose 46 L* (70-99) mg/dl POC Glucose 187 H (70-99) Estimat Average Glucose mg/dl Hemoglobin A1c (4.5-5.6) % Calcium 7.5 L (8.5-10.1) mg/dl Phosphorus (2.5-4.9) mg/dl Magnesium (1.8-2.4) mg/dl Total Bilirubin (0.2-1) mg/dl AST (15-37) U/L ALT (12-78) U/L Alkaline Phosphatase (45-117) U/L Ammonia (11-32) umol/L Total Protein (6.4-8.2) gm/dl Albumin (3.4-5.0) gm/dl Globulin (2.5-4.0) gm/dl Albumin/Globulin Ratio (0.9-2) 01/30/19 01/30/19 01/30/19 Range/Units 07:05 07:06 07:28 WBC (4.8-10.8) K/uL RBC (4.7-6.1) M/uL Hgb (14.0-18.0) g/dL Hct (42-52) % MCV (80-100) fL MCH (25-34) pg MCHC (32-36) g/dL RDW Std Deviation (36.4-46.3) fL RDW Coeff of Curt (11.5-14.5) % Plt Count (130-400) K/uL MPV (7.4-10.4) fL Immature Gran % (Auto) % Neut % (Auto) % Lymph % (Auto) % [place] % (Auto) % Eos % (Auto) % Baso % (Auto) % Immature Gran # (Auto) (0.00-0.02) K/uL Neut # (Auto) (1.4-6.5) K/uL Lymph # (Auto) (1.2-3.4) K/uL [place] # (Auto) (0.11-0.59) K/uL Eos # (Auto) (0-0.5) K/uL Baso # (Auto) (0-0.2) K/uL Absolute Nucleated RBC (0-0) K/uL Nucleated RBC % (auto) % Toxic Granulation Platelet Estimate (Normal) Hypochromasia Basophilic Stippling Anisocytosis Microcytosis PT (9.0-12.0) Seconds INR (0.9-1.1) Sodium (136-145) mmol/L Potassium (3.5-5.1) mmol/L Chloride (98-107) mmol/L Carbon Dioxide (21-32) mmol/L Anion Gap (3-11) BUN (7-18) mg/dl Creatinine (0.6-1.4) mg/dl Est Cr Clr Drug Dosing ml/min Est GFR ( Amer) Est GFR (Non-Af Amer) BUN/Creatinine Ratio (10-20) Glucose (70-99) mg/dl POC Glucose 59 L* 60 L* 98 (70-99) Estimat Average Glucose mg/dl Hemoglobin A1c (4.5-5.6) % Calcium (8.5-10.1) mg/dl Phosphorus (2.5-4.9) mg/dl Magnesium (1.8-2.4) mg/dl Total Bilirubin (0.2-1) mg/dl AST (15-37) U/L ALT (12-78) U/L Alkaline Phosphatase (45-117) U/L Ammonia (11-32) umol/L Total Protein (6.4-8.2) gm/dl Albumin (3.4-5.0) gm/dl Globulin (2.5-4.0) gm/dl Albumin/Globulin Ratio (0.9-2) 01/30/19 01/30/19 01/30/19 Range/Units 11:34 16:45 20:09 WBC (4.8-10.8) K/uL RBC (4.7-6.1) M/uL Hgb (14.0-18.0) g/dL Hct (42-52) % MCV (80-100) fL MCH (25-34) pg MCHC (32-36) g/dL RDW Std Deviation (36.4-46.3) fL RDW Coeff of Curt (11.5-14.5) % Plt Count (130-400) K/uL MPV (7.4-10.4) fL Immature Gran % (Auto) % Neut % (Auto) % Lymph % (Auto) % [place] % (Auto) % Eos % (Auto) % Baso % (Auto) % Immature Gran # (Auto) (0.00-0.02) K/uL Neut # (Auto) (1.4-6.5) K/uL Lymph # (Auto) (1.2-3.4) K/uL [place] # (Auto) (0.11-0.59) K/uL Eos # (Auto) (0-0.5) K/uL Baso # (Auto) (0-0.2) K/uL Absolute Nucleated RBC (0-0) K/uL Nucleated RBC % (auto) % Toxic Granulation Platelet Estimate (Normal) Hypochromasia Basophilic Stippling Anisocytosis Microcytosis PT (9.0-12.0) Seconds INR (0.9-1.1) Sodium (136-145) mmol/L Potassium (3.5-5.1) mmol/L Chloride (98-107) mmol/L Carbon Dioxide (21-32) mmol/L Anion Gap (3-11) BUN (7-18) mg/dl Creatinine (0.6-1.4) mg/dl Est Cr Clr Drug Dosing ml/min Est GFR ( Amer) Est GFR (Non-Af Amer) BUN/Creatinine Ratio (10-20) Glucose (70-99) mg/dl POC Glucose 175 H 125 H 129 H (70-99) Estimat Average Glucose mg/dl Hemoglobin A1c (4.5-5.6) % Calcium (8.5-10.1) mg/dl Phosphorus (2.5-4.9) mg/dl Magnesium (1.8-2.4) mg/dl Total Bilirubin (0.2-1) mg/dl AST (15-37) U/L ALT (12-78) U/L Alkaline Phosphatase (45-117) U/L Ammonia (11-32) umol/L Total Protein (6.4-8.2) gm/dl Albumin (3.4-5.0) gm/dl Globulin (2.5-4.0) gm/dl Albumin/Globulin Ratio (0.9-2) 01/31/19 01/31/19 01/31/19 Range/Units 07:46 12:09 16:50 WBC (4.8-10.8) K/uL RBC (4.7-6.1) M/uL Hgb (14.0-18.0) g/dL Hct (42-52) % MCV (80-100) fL MCH (25-34) pg MCHC (32-36) g/dL RDW Std Deviation (36.4-46.3) fL RDW Coeff of Curt (11.5-14.5) % Plt Count (130-400) K/uL MPV (7.4-10.4) fL Immature Gran % (Auto) % Neut % (Auto) % Lymph % (Auto) % [place] % (Auto) % Eos % (Auto) % Baso % (Auto) % Immature Gran # (Auto) (0.00-0.02) K/uL Neut # (Auto) (1.4-6.5) K/uL Lymph # (Auto) (1.2-3.4) K/uL [place] # (Auto) (0.11-0.59) K/uL Eos # (Auto) (0-0.5) K/uL Baso # (Auto) (0-0.2) K/uL Absolute Nucleated RBC (0-0) K/uL Nucleated RBC % (auto) % Toxic Granulation Platelet Estimate (Normal) Hypochromasia Basophilic Stippling Anisocytosis Microcytosis PT (9.0-12.0) Seconds INR (0.9-1.1) Sodium (136-145) mmol/L Potassium (3.5-5.1) mmol/L Chloride (98-107) mmol/L Carbon Dioxide (21-32) mmol/L Anion Gap (3-11) BUN (7-18) mg/dl Creatinine (0.6-1.4) mg/dl Est Cr Clr Drug Dosing ml/min Est GFR ( Amer) Est GFR (Non-Af Amer) BUN/Creatinine Ratio (10-20) Glucose (70-99) mg/dl POC Glucose 86 152 H 198 H (70-99) Estimat Average Glucose mg/dl Hemoglobin A1c (4.5-5.6) % Calcium (8.5-10.1) mg/dl Phosphorus (2.5-4.9) mg/dl Magnesium (1.8-2.4) mg/dl Total Bilirubin (0.2-1) mg/dl AST (15-37) U/L ALT (12-78) U/L Alkaline Phosphatase (45-117) U/L Ammonia (11-32) umol/L Total Protein (6.4-8.2) gm/dl Albumin (3.4-5.0) gm/dl Globulin (2.5-4.0) gm/dl Albumin/Globulin Ratio (0.9-2) 01/31/19 02/01/19 02/01/19 Range/Units 20:41 06:17 06:17 WBC 6.36 (4.8-10.8) K/uL RBC 3.22 L (4.7-6.1) M/uL Hgb 7.3 L (14.0-18.0) g/dL Hct 23.7 L (42-52) % MCV 73.6 L (80-100) fL MCH 22.7 L (25-34) pg MCHC 30.8 L (32-36) g/dL RDW Std Deviation 54.9 H (36.4-46.3) fL RDW Coeff of Curt 20.5 H (11.5-14.5) % Plt Count 92 L (130-400) K/uL MPV 9.5 (7.4-10.4) fL Immature Gran % (Auto) 1.3 % Neut % (Auto) 74.0 % Lymph % (Auto) 8.6 % [place] % (Auto) 14.0 % Eos % (Auto) 1.9 % Baso % (Auto) 0.2 % Immature Gran # (Auto) 0.08 H (0.00-0.02) K/uL Neut # (Auto) 4.71 (1.4-6.5) K/uL Lymph # (Auto) 0.55 L (1.2-3.4) K/uL [place] # (Auto) 0.89 H (0.11-0.59) K/uL Eos # (Auto) 0.12 (0-0.5) K/uL Baso # (Auto) 0.01 (0-0.2) K/uL Absolute Nucleated RBC (0-0) K/uL Nucleated RBC % (auto) % Toxic Granulation 1+ Platelet Estimate Decreased (Normal) Hypochromasia Present Basophilic Stippling 1+ Anisocytosis Present Microcytosis Present PT (9.0-12.0) Seconds INR (0.9-1.1) Sodium 134 L (136-145) mmol/L Potassium 3.9 (3.5-5.1) mmol/L Chloride 99 (98-107) mmol/L Carbon Dioxide 29 (21-32) mmol/L Anion Gap 6.0 (3-11) BUN 32 H (7-18) mg/dl Creatinine 1.44 H (0.6-1.4) mg/dl Est Cr Clr Drug Dosing 51.1 ml/min Est GFR ( Amer) 58.2 Est GFR (Non-Af Amer) 50.2 BUN/Creatinine Ratio 22.2 H (10-20) Glucose 50 L* (70-99) mg/dl POC Glucose 193 H (70-99) Estimat Average Glucose mg/dl Hemoglobin A1c (4.5-5.6) % Calcium 7.9 L (8.5-10.1) mg/dl Phosphorus (2.5-4.9) mg/dl Magnesium (1.8-2.4) mg/dl Total Bilirubin (0.2-1) mg/dl AST (15-37) U/L ALT (12-78) U/L Alkaline Phosphatase (45-117) U/L Ammonia (11-32) umol/L Total Protein (6.4-8.2) gm/dl Albumin (3.4-5.0) gm/dl Globulin (2.5-4.0) gm/dl Albumin/Globulin Ratio (0.9-2) 02/01/19 02/01/19 02/01/19 Range/Units 06:38 06:44 07:04 WBC (4.8-10.8) K/uL RBC (4.7-6.1) M/uL Hgb (14.0-18.0) g/dL Hct (42-52) % MCV (80-100) fL MCH (25-34) pg MCHC (32-36) g/dL RDW Std Deviation (36.4-46.3) fL RDW Coeff of Curt (11.5-14.5) % Plt Count (130-400) K/uL MPV (7.4-10.4) fL Immature Gran % (Auto) % Neut % (Auto) % Lymph % (Auto) % [place] % (Auto) % Eos % (Auto) % Baso % (Auto) % Immature Gran # (Auto) (0.00-0.02) K/uL Neut # (Auto) (1.4-6.5) K/uL Lymph # (Auto) (1.2-3.4) K/uL [place] # (Auto) (0.11-0.59) K/uL Eos # (Auto) (0-0.5) K/uL Baso # (Auto) (0-0.2) K/uL Absolute Nucleated RBC (0-0) K/uL Nucleated RBC % (auto) % Toxic Granulation Platelet Estimate (Normal) Hypochromasia Basophilic Stippling Anisocytosis Microcytosis PT (9.0-12.0) Seconds INR (0.9-1.1) Sodium (136-145) mmol/L Potassium (3.5-5.1) mmol/L Chloride (98-107) mmol/L Carbon Dioxide (21-32) mmol/L Anion Gap (3-11) BUN (7-18) mg/dl Creatinine (0.6-1.4) mg/dl Est Cr Clr Drug Dosing ml/min Est GFR ( Amer) Est GFR (Non-Af Amer) BUN/Creatinine Ratio (10-20) Glucose (70-99) mg/dl POC Glucose 55 L* 55 L* 90 (70-99) Estimat Average Glucose mg/dl Hemoglobin A1c (4.5-5.6) % Calcium (8.5-10.1) mg/dl Phosphorus (2.5-4.9) mg/dl Magnesium (1.8-2.4) mg/dl Total Bilirubin (0.2-1) mg/dl AST (15-37) U/L ALT (12-78) U/L Alkaline Phosphatase (45-117) U/L Ammonia (11-32) umol/L Total Protein (6.4-8.2) gm/dl Albumin (3.4-5.0) gm/dl Globulin (2.5-4.0) gm/dl Albumin/Globulin Ratio (0.9-2) 02/01/19 02/01/19 02/01/19 Range/Units 07:43 11:13 15:59 WBC (4.8-10.8) K/uL RBC (4.7-6.1) M/uL Hgb (14.0-18.0) g/dL Hct (42-52) % MCV (80-100) fL MCH (25-34) pg MCHC (32-36) g/dL RDW Std Deviation (36.4-46.3) fL RDW Coeff of Curt (11.5-14.5) % Plt Count (130-400) K/uL MPV (7.4-10.4) fL Immature Gran % (Auto) % Neut % (Auto) % Lymph % (Auto) % [place] % (Auto) % Eos % (Auto) % Baso % (Auto) % Immature Gran # (Auto) (0.00-0.02) K/uL Neut # (Auto) (1.4-6.5) K/uL Lymph # (Auto) (1.2-3.4) K/uL [place] # (Auto) (0.11-0.59) K/uL Eos # (Auto) (0-0.5) K/uL Baso # (Auto) (0-0.2) K/uL Absolute Nucleated RBC (0-0) K/uL Nucleated RBC % (auto) % Toxic Granulation Platelet Estimate (Normal) Hypochromasia Basophilic Stippling Anisocytosis Microcytosis PT (9.0-12.0) Seconds INR (0.9-1.1) Sodium (136-145) mmol/L Potassium (3.5-5.1) mmol/L Chloride (98-107) mmol/L Carbon Dioxide (21-32) mmol/L Anion Gap (3-11) BUN (7-18) mg/dl Creatinine (0.6-1.4) mg/dl Est Cr Clr Drug Dosing ml/min Est GFR ( Amer) Est GFR (Non-Af Amer) BUN/Creatinine Ratio (10-20) Glucose (70-99) mg/dl POC Glucose 152 H 136 H 149 H (70-99) Estimat Average Glucose mg/dl Hemoglobin A1c (4.5-5.6) % Calcium (8.5-10.1) mg/dl Phosphorus (2.5-4.9) mg/dl Magnesium (1.8-2.4) mg/dl Total Bilirubin (0.2-1) mg/dl AST (15-37) U/L ALT (12-78) U/L Alkaline Phosphatase (45-117) U/L Ammonia (11-32) umol/L Total Protein (6.4-8.2) gm/dl Albumin (3.4-5.0) gm/dl Globulin (2.5-4.0) gm/dl Albumin/Globulin Ratio (0.9-2) 02/01/19 02/02/19 02/02/19 Range/Units 20:04 03:01 04:02 WBC (4.8-10.8) K/uL RBC (4.7-6.1) M/uL Hgb (14.0-18.0) g/dL Hct (42-52) % MCV (80-100) fL MCH (25-34) pg MCHC (32-36) g/dL RDW Std Deviation (36.4-46.3) fL RDW Coeff of Curt (11.5-14.5) % Plt Count (130-400) K/uL MPV (7.4-10.4) fL Immature Gran % (Auto) % Neut % (Auto) % Lymph % (Auto) % [place] % (Auto) % Eos % (Auto) % Baso % (Auto) % Immature Gran # (Auto) (0.00-0.02) K/uL Neut # (Auto) (1.4-6.5) K/uL Lymph # (Auto) (1.2-3.4) K/uL [place] # (Auto) (0.11-0.59) K/uL Eos # (Auto) (0-0.5) K/uL Baso # (Auto) (0-0.2) K/uL Absolute Nucleated RBC (0-0) K/uL Nucleated RBC % (auto) % Toxic Granulation Platelet Estimate (Normal) Hypochromasia Basophilic Stippling Anisocytosis Microcytosis PT (9.0-12.0) Seconds INR (0.9-1.1) Sodium (136-145) mmol/L Potassium (3.5-5.1) mmol/L Chloride (98-107) mmol/L Carbon Dioxide (21-32) mmol/L Anion Gap (3-11) BUN (7-18) mg/dl Creatinine (0.6-1.4) mg/dl Est Cr Clr Drug Dosing ml/min Est GFR ( Amer) Est GFR (Non-Af Amer) BUN/Creatinine Ratio (10-20) Glucose (70-99) mg/dl POC Glucose 249 H 66 L* 182 H (70-99) Estimat Average Glucose mg/dl Hemoglobin A1c (4.5-5.6) % Calcium (8.5-10.1) mg/dl Phosphorus (2.5-4.9) mg/dl Magnesium (1.8-2.4) mg/dl Total Bilirubin (0.2-1) mg/dl AST (15-37) U/L ALT (12-78) U/L Alkaline Phosphatase (45-117) U/L Ammonia (11-32) umol/L Total Protein (6.4-8.2) gm/dl Albumin (3.4-5.0) gm/dl Globulin (2.5-4.0) gm/dl Albumin/Globulin Ratio (0.9-2) 02/02/19 02/02/19 Range/Units 07:44 11:02 WBC (4.8-10.8) K/uL RBC (4.7-6.1) M/uL Hgb (14.0-18.0) g/dL Hct (42-52) % MCV (80-100) fL MCH (25-34) pg MCHC (32-36) g/dL RDW Std Deviation (36.4-46.3) fL RDW Coeff of Curt (11.5-14.5) % Plt Count (130-400) K/uL MPV (7.4-10.4) fL Immature Gran % (Auto) % Neut % (Auto) % Lymph % (Auto) % [place] % (Auto) % Eos % (Auto) % Baso % (Auto) % Immature Gran # (Auto) (0.00-0.02) K/uL Neut # (Auto) (1.4-6.5) K/uL Lymph # (Auto) (1.2-3.4) K/uL [place] # (Auto) (0.11-0.59) K/uL Eos # (Auto) (0-0.5) K/uL Baso # (Auto) (0-0.2) K/uL Absolute Nucleated RBC (0-0) K/uL Nucleated RBC % (auto) % Toxic Granulation Platelet Estimate (Normal) Hypochromasia Basophilic Stippling Anisocytosis Microcytosis PT (9.0-12.0) Seconds INR (0.9-1.1) Sodium (136-145) mmol/L Potassium (3.5-5.1) mmol/L Chloride (98-107) mmol/L Carbon Dioxide (21-32) mmol/L Anion Gap (3-11) BUN (7-18) mg/dl Creatinine (0.6-1.4) mg/dl Est Cr Clr Drug Dosing ml/min Est GFR ( Amer) Est GFR (Non-Af Amer) BUN/Creatinine Ratio (10-20) Glucose (70-99) mg/dl POC Glucose 152 H 88 (70-99) Estimat Average Glucose mg/dl Hemoglobin A1c (4.5-5.6) % Calcium (8.5-10.1) mg/dl Phosphorus (2.5-4.9) mg/dl Magnesium (1.8-2.4) mg/dl Total Bilirubin (0.2-1) mg/dl AST (15-37) U/L ALT (12-78) U/L Alkaline Phosphatase (45-117) U/L Ammonia (11-32) umol/L Total Protein (6.4-8.2) gm/dl Albumin (3.4-5.0) gm/dl Globulin (2.5-4.0) gm/dl Albumin/Globulin Ratio (0.9-2) Administered Medications Discontinued Medications Acetaminophen (Tylenol) 650 mg PO Q4H PRN PRN Reason: pain/fever Stop: 02/25/19 18:49 Last Admin: 02/01/19 00:26 Dose: 650 mg Documented by: [id number] Admin: 01/27/19 13:03 Dose: 650 mg Documented by: [id number] Admin: 01/26/19 20:49 Dose: 650 mg Documented by: [id number] Artificial Tears (Artificial Tears) 1 drops OPB BID ALINA Stop: 02/25/19 20:59 Last Admin: 02/02/19 10:25 Dose: 1 drops Documented by: [id number] Admin: 02/01/19 21:17 Dose: 1 drops Documented by: [id number] Admin: 02/01/19 08:44 Dose: 1 drops Documented by: [id number] Admin: 01/31/19 21:29 Dose: 1 drops Documented by: [id number] Admin: 01/31/19 08:29 Dose: 1 drops Documented by: [id number] Admin: 01/30/19 20:26 Dose: 1 drops Documented by: [id number] Admin: 01/30/19 07:40 Dose: 1 drops Documented by: [id number] Admin: 01/29/19 20:24 Dose: 1 drops Documented by: [id number] Admin: 01/29/19 07:51 Dose: 1 drops Documented by: [id number] Admin: 01/28/19 21:43 Dose: 1 drops Documented by: [id number] Admin: 01/28/19 08:35 Dose: 1 drops Documented by: [id number] Admin: 01/27/19 20:42 Dose: 1 drops Documented by: [id number] Admin: 01/27/19 09:06 Dose: 1 drops Documented by: [id number] Admin: 01/26/19 20:52 Dose: 1 drops Documented by: [id number] Atorvastatin Calcium (Lipitor) 10 mg PO HS ALINA Stop: 02/25/19 20:59 Last Admin: 02/01/19 21:22 Dose: 10 mg Documented by: [id number] Admin: 01/31/19 21:32 Dose: 10 mg Documented by: [id number] Admin: 01/30/19 20:29 Dose: 10 mg Documented by: [id number] Admin: 01/29/19 20:26 Dose: 10 mg Documented by: [id number] Admin: 01/28/19 21:43 Dose: 10 mg Documented by: [id number] Admin: 01/27/19 20:41 Dose: 10 mg Documented by: [id number] Admin: 01/26/19 20:31 Dose: 10 mg Documented by: [id number] Cetirizine HCl (Zyrtec) 10 mg PO NOW ONE Stop: 01/27/19 22:01 Last Admin: 01/27/19 22:08 Dose: 10 mg Documented by: [id number] Diphtheria/Pertussis/Tetanus Vacc (Adacel) 0.5 ml IM .ONCE ONE Stop: 01/26/19 14:24 Last Admin: 01/26/19 14:51 Dose: 0.5 ml Documented by: [id number] Fluoxetine HCl (Prozac) 40 mg PO QAM [facility] Stop: 02/26/19 08:59 Last Admin: 02/02/19 11:23 Dose: 40 mg Documented by: [id number] Admin: 02/01/19 08:43 Dose: 40 mg Documented by: [id number] Admin: 01/31/19 08:27 Dose: 40 mg Documented by: [id number] Admin: 01/30/19 07:39 Dose: 40 mg Documented by: [id number] Admin: 01/29/19 07:50 Dose: 40 mg Documented by: [id number] Admin: 01/28/19 08:35 Dose: 40 mg Documented by: [id number] Admin: 01/27/19 09:07 Dose: 40 mg Documented by: [id number] Furosemide (Lasix) 40 mg PO BID17 [facility] Stop: 02/25/19 07:59 Last Admin: 02/02/19 11:22 Dose: 40 mg Documented by: [id number] Admin: 02/01/19 18:17 Dose: 40 mg Documented by: [id number] Admin: 02/01/19 08:43 Dose: 40 mg Documented by: [id number] Admin: 01/31/19 16:52 Dose: 40 mg Documented by: [id number] Admin: 01/31/19 08:29 Dose: 40 mg Documented by: [id number] Admin: 01/30/19 17:40 Dose: 40 mg Documented by: [id number] Admin: 01/30/19 07:40 Dose: 40 mg Documented by: [id number] Admin: 01/29/19 17:35 Dose: 40 mg Documented by: [id number] Admin: 01/29/19 07:49 Dose: 40 mg Documented by: [id number] Admin: 01/28/19 17:05 Dose: 40 mg Documented by: [id number] Admin: 01/28/19 08:35 Dose: 40 mg Documented by: [id number] Admin: 01/27/19 15:57 Dose: 40 mg Documented by: [id number] Admin: 01/27/19 09:07 Dose: 40 mg Documented by: [id number] Admin: 01/26/19 19:56 Dose: 40 mg Documented by: [id number] Heparin Sodium (Porcine) (Heparin Sodium (Porcine)) 5,000 units SQ Q8 [facility] Stop: 02/25/19 21:59 Last Admin: 01/29/19 13:00 Dose: Not Given Documented by: [id number] Admin: 01/29/19 06:05 Dose: Not Given Documented by: [id number] Admin: 01/28/19 21:56 Dose: Not Given Documented by: [id number] Admin: 01/28/19 12:37 Dose: Not Given Documented by: [id number] Admin: 01/28/19 06:41 Dose: Not Given Documented by: [id number] Admin: 01/27/19 20:44 Dose: Not Given Documented by: [id number] Admin: 01/27/19 13:07 Dose: Not Given Documented by: [id number] Admin: 01/27/19 05:46 Dose: 5,000 units Documented by: [id number] Cosigned by: [id number] Admin: 01/26/19 21:30 Dose: 5,000 units Documented by: [id number] Cosigned by: [id number] Heparin Sodium (Porcine) (Heparin Sodium (Porcine)) 5,000 units SQ BID ALINA Stop: 02/28/19 20:59 Last Admin: 02/02/19 10:26 Dose: 5,000 units Documented by: [id number] Cosigned by: [id number] Admin: 02/01/19 21:41 Dose: 5,000 units Documented by: [id number] Cosigned by: [id number] Admin: 02/01/19 08:45 Dose: 5,000 units Documented by: [id number] Cosigned by: [id number] Admin: 01/31/19 21:38 Dose: 5,000 units Documented by: [id number] Cosigned by: [id number] Admin: 01/31/19 08:31 Dose: 5,000 units Documented by: [id number] Cosigned by: [id number] Admin: 01/30/19 20:27 Dose: 5,000 units Documented by: [id number] Cosigned by: [id number] Admin: 01/30/19 08:41 Dose: 5,000 units Documented by: [id number] Cosigned by: [id number] Admin: 01/29/19 20:19 Dose: 5,000 units Documented by: [id number] Cosigned by: [id number] Promethazine HCl 6.25 mg/ (Sodium Chloride) 50.25 mls @ 201 mls/hr IV TODAY@0945 ONE Stop: 02/02/19 09:59 Last Infusion: 02/02/19 10:40 Dose: 0 mls/hr Documented by: [id number] Admin: 02/02/19 10:21 Dose: 201 mls/hr Documented by: [id number] Insulin Aspart (Novolog Flexpen) 0 units SC ACHS AL[facility] Stop: 02/25/19 20:59 Last Admin: 02/02/19 12:59 Dose: Not Given Documented by: [id number] Cosigned by: [id number] Admin: 02/02/19 09:38 Dose: Not Given Documented by: [id number] Cosigned by: [id number] Admin: 02/01/19 21:42 Dose: 11 units Documented by: [id number] Cosigned by: [id number] Admin: 02/01/19 18:16 Dose: 2 units Documented by: [id number] Cosigned by: [id number] Admin: 02/01/19 14:11 Dose: 4 units Documented by: [id number] Cosigned by: [id number] Admin: 02/01/19 09:53 Dose: 10 units Documented by: [id number] Cosigned by: [id number] Admin: 01/31/19 21:38 Dose: 6 units Documented by: [id number] Cosigned by: [id number] Admin: 01/31/19 18:37 Dose: 15 units Documented by: [id number] Cosigned by: [id number] Admin: 01/31/19 14:11 Dose: 7 units Documented by: [id number] Cosigned by: [id number] Admin: 01/31/19 09:55 Dose: 4 units Documented by: [id number] Cosigned by: [id number] Admin: 01/30/19 20:29 Dose: Not Given Documented by: [id number] Cosigned by: [id number] Admin: 01/30/19 18:25 Dose: Not Given Documented by: [id number] Cosigned by: [id number] Admin: 01/30/19 13:39 Dose: 10 units Documented by: [id number] Cosigned by: [id number] Admin: 01/30/19 08:41 Dose: 8 units Documented by: [id number] Cosigned by: [id number] Admin: 01/29/19 20:20 Dose: 5 units Documented by: [id number] Cosigned by: [id number] Admin: 01/29/19 18:54 Dose: 10 units Documented by: [id number] Cosigned by: [id number] Admin: 01/29/19 13:01 Dose: 8 units Documented by: [id number] Cosigned by: [id number] Admin: 01/29/19 09:34 Dose: 2 units Documented by: [id number] Cosigned by: [id number] Admin: 01/28/19 21:44 Dose: 4 units Documented by: [id number] Cosigned by: [id number] Admin: 01/28/19 18:44 Dose: Not Given Documented by: [id number] Cosigned by: [id number] Admin: 01/28/19 12:36 Dose: 10 units Documented by: [id number] Cosigned by: [id number] Admin: 01/28/19 08:36 Dose: 9 units Documented by: [id number] Cosigned by: [id number] Admin: 01/27/19 21:03 Dose: 28 units Documented by: [id number] Cosigned by: [id number] Admin: 01/27/19 17:41 Dose: 20 units Documented by: [id number] Cosigned by: [id number] Admin: 01/27/19 13:04 Dose: 12 units Documented by: [id number] Cosigned by: [id number] Admin: 01/27/19 09:07 Dose: 5 units Documented by: [id number] Cosigned by: [id number] Admin: 01/26/19 20:57 Dose: 5 units Documented by: [id number] Cosigned by: [id number] Insulin Glargine (Lantus Solostar Pen) 15 units SQ BID ALINA Stop: 02/25/19 20:59 Last Admin: 02/01/19 08:47 Dose: 12 units Documented by: [id number] Cosigned by: [id number] Admin: 01/31/19 21:38 Dose: 15 units Documented by: [id number] Cosigned by: [id number] Admin: 01/31/19 08:30 Dose: 15 units Documented by: [id number] Cosigned by: [id number] Admin: 01/30/19 20:28 Dose: 15 units Documented by: [id number] Cosigned by: [id number] Admin: 01/30/19 08:41 Dose: 15 units Documented by: [id number] Cosigned by: [id number] Admin: 01/29/19 20:24 Dose: 15 units Documented by: [id number] Cosigned by: [id number] Admin: 01/29/19 09:35 Dose: 15 units Documented by: [id number] Cosigned by: [id number] Admin: 01/28/19 21:44 Dose: 15 units Documented by: [id number] Cosigned by: [id number] Admin: 01/28/19 08:35 Dose: 15 units Documented by: [id number] Cosigned by: [id number] Admin: 01/27/19 21:04 Dose: 15 units Documented by: [id number] Cosigned by: [id number] Admin: 01/27/19 09:07 Dose: 15 units Documented by: [id number] Cosigned by: [id number] Admin: 01/26/19 20:54 Dose: 15 units Documented by: [id number] Cosigned by: [id number] Insulin Glargine (Lantus Solostar Pen) 12 units SQ BID ALINA Stop: 03/03/19 20:59 Last Admin: 02/02/19 09:36 Dose: Not Given Documented by: [id number] Cosigned by: [id number] Admin: 02/01/19 21:41 Dose: 12 units Documented by: [id number] Cosigned by: [id number] Lactulose (Chronulac) 10 gm PO BID ALINA Stop: 02/25/19 20:59 Last Admin: 01/29/19 07:51 Dose: 10 gm Documented by: [id number] Admin: 01/28/19 21:43 Dose: 10 gm Documented by: [id number] Admin: 01/28/19 08:35 Dose: 10 gm Documented by: [id number] Admin: 01/27/19 20:41 Dose: 10 gm Documented by: [id number] Admin: 01/27/19 09:06 Dose: 10 gm Documented by: [id number] Admin: 01/26/19 21:36 Dose: 10 gm Documented by: [id number] Lactulose (Chronulac) 10 gm PO TID ALINA Stop: 02/28/19 08:59 Last Admin: 02/02/19 11:18 Dose: 10 gm Documented by: [id number] Admin: 02/01/19 21:18 Dose: Not Given Documented by: [id number] Admin: 02/01/19 13:39 Dose: 10 gm Documented by: [id number] Admin: 02/01/19 08:44 Dose: 10 gm Documented by: [id number] Admin: 01/31/19 21:28 Dose: 10 gm Documented by: [id number] Admin: 01/31/19 14:12 Dose: 10 gm Documented by: [id number] Admin: 01/31/19 08:29 Dose: 10 gm Documented by: [id number] Admin: 01/30/19 20:27 Dose: Not Given Documented by: [id number] Admin: 01/30/19 13:39 Dose: 10 gm Documented by: [id number] Admin: 01/30/19 07:41 Dose: Not Given Documented by: [id number] Admin: 01/29/19 20:19 Dose: 10 gm Documented by: [id number] Admin: 01/29/19 13:00 Dose: 10 gm Documented by: [id number] Admin: 01/29/19 09:46 Dose: Not Given Documented by: [id number] Lidocaine (Let Gel 4%/1:100/0.5%) Confirm Administered Dose 2 ea EXT .STK-MED ONE Stop: 01/26/19 16:41 Last Admin: 01/26/19 16:45 Dose: 2 ea Documented by: [id number] Lidocaine HCl (Xylocaine 1% (Local)) 10 ml INFIL NOW ONE Stop: 01/26/19 14:24 Last Admin: 01/26/19 15:16 Dose: 10 ml Documented by: [id number] Miconazole Nitrate (Desenex) 1 appln EXT PRN PRN PRN Reason: Affected Skin Folds Stop: 02/26/19 21:20 Last Admin: 01/27/19 22:08 Dose: 1 appln Documented by: [id number] Miscellaneous (Carbohydrates For Hypoglycemia) 15 - 30 gm PO UD PRN PRN Reason: Hypoglycemia Treatment Stop: 02/25/19 18:49 Last Admin: 02/02/19 03:30 Dose: 15 gm Documented by: [id number] Admin: 02/01/19 06:45 Dose: 15 gm Documented by: [id number] Admin: 01/30/19 07:09 Dose: 15 gm Documented by: [id number] Morphine Sulfate (Morphine Sulfate) 2 mg IV NOW STA Stop: 01/26/19 14:24 Last Admin: 01/26/19 14:52 Dose: 2 mg Documented by: [id number] Morphine Sulfate (Morphine Sulfate) 0.5 mg IV Q2H PRN PRN Reason: Pain Stop: 02/09/19 20:38 Last Admin: 02/01/19 13:45 Dose: 0.5 mg Documented by: [id number] Admin: 02/01/19 01:16 Dose: 0.5 mg Documented by: [id number] Admin: 01/31/19 15:59 Dose: 0.5 mg Documented by: [id number] Admin: 01/30/19 20:34 Dose: 0.5 mg Documented by: [id number] Admin: 01/30/19 17:43 Dose: 0.5 mg Documented by: [id number] Admin: 01/30/19 15:27 Dose: 0.5 mg Documented by: [id number] Admin: 01/30/19 08:52 Dose: 0.5 mg Documented by: [id number] Admin: 01/29/19 18:13 Dose: 0.5 mg Documented by: [id number] Admin: 01/29/19 09:34 Dose: 0.5 mg Documented by: [id number] Admin: 01/29/19 00:00 Dose: 0.5 mg Documented by: [id number] Admin: 01/28/19 21:52 Dose: 0.5 mg Documented by: [id number] Admin: 01/27/19 15:57 Dose: 0.5 mg Documented by: [id number] Admin: 01/26/19 20:50 Dose: 0.5 mg Documented by: [id number] Morphine Sulfate (Morphine Sulfate) Confirm Administered Dose 2 mg .ROUTE .STK- MED ONE Stop: 01/26/19 20:46 Last Admin: 01/26/19 20:52 Dose: Not Given Documented by: [id number] Ondansetron HCl (Zofran) 4 mg IV NOW STA Stop: 01/26/19 14:24 Last Admin: 01/26/19 14:52 Dose: 4 mg Documented by: [id number] Ondansetron HCl (Zofran) 4 mg IV Q6H PRN PRN Reason: Nausea Stop: 02/25/19 18:49 Last Admin: 02/02/19 08:23 Dose: 4 mg Documented by: [id number] Admin: 02/01/19 21:14 Dose: 4 mg Documented by: [id number] Admin: 01/29/19 09:34 Dose: 4 mg Documented by: [id number] Admin: 01/28/19 16:14 Dose: 4 mg Documented by: [id number] Admin: 01/28/19 01:58 Dose: 4 mg Documented by: [id number] Pantoprazole Sodium (Protonix) 40 mg PO DAILY [facility] Stop: 02/26/19 08:59 Last Admin: 02/02/19 11:23 Dose: 40 mg Documented by: [id number] Admin: 02/01/19 08:40 Dose: 40 mg Documented by: [id number] Admin: 01/31/19 08:28 Dose: 40 mg Documented by: [id number] Admin: 01/30/19 07:40 Dose: 40 mg Documented by: [id number] Admin: 01/29/19 07:50 Dose: 40 mg Documented by: [id number] Admin: 01/28/19 08:35 Dose: 40 mg Documented by: [id number] Admin: 01/27/19 09:06 Dose: 40 mg Documented by: [id number] Pentoxifylline (Trental) 400 mg PO BID ALINA Stop: 02/25/19 20:59 Last Admin: 02/02/19 11:24 Dose: 400 mg Documented by: [id number] Admin: 02/01/19 21:22 Dose: 400 mg Documented by: [id number] Admin: 02/01/19 08:46 Dose: 400 mg Documented by: [id number] Admin: 01/31/19 21:32 Dose: 400 mg Documented by: [id number] Admin: 01/31/19 08:29 Dose: 400 mg Documented by: [id number] Admin: 01/30/19 20:29 Dose: 400 mg Documented by: [id number] Admin: 01/30/19 07:41 Dose: 400 mg Documented by: [id number] Admin: 01/29/19 20:25 Dose: 400 mg Documented by: [id number] Admin: 01/29/19 07:49 Dose: 400 mg Documented by: [id number] Admin: 01/28/19 21:43 Dose: 400 mg Documented by: [id number] Admin: 01/28/19 08:35 Dose: 400 mg Documented by: [id number] Admin: 01/27/19 20:41 Dose: 400 mg Documented by: [id number] Admin: 01/27/19 09:07 Dose: 400 mg Documented by: [id number] Admin: 01/26/19 20:31 Dose: 400 mg Documented by: [id number] Potassium Chloride (Klor-Con M10) 10 meq PO BID ALINA Stop: 02/25/19 20:59 Last Admin: 02/02/19 11:22 Dose: 10 meq Documented by: [id number] Admin: 02/01/19 21:19 Dose: 10 meq Documented by: [id number] Admin: 02/01/19 08:41 Dose: 10 meq Documented by: [id number] Admin: 01/31/19 21:32 Dose: 10 meq Documented by: [id number] Admin: 01/31/19 08:26 Dose: 10 meq Documented by: [id number] Admin: 01/30/19 20:28 Dose: 10 meq Documented by: [id number] Admin: 01/30/19 07:40 Dose: 10 meq Documented by: [id number] Admin: 01/29/19 20:25 Dose: 10 meq Documented by: [id number] Admin: 01/29/19 07:49 Dose: 10 meq Documented by: [id number] Admin: 01/28/19 21:43 Dose: 10 meq Documented by: [id number] Admin: 01/28/19 08:35 Dose: 10 meq Documented by: [id number] Admin: 01/27/19 20:41 Dose: 10 meq Documented by: [id number] Admin: 01/27/19 09:06 Dose: 10 meq Documented by: [id number] Admin: 01/26/19 20:30 Dose: 10 meq Documented by: [id number] Prednisone (Prednisone) 20 mg PO DAILY ALINA Stop: 02/26/19 08:59 Last Admin: 02/02/19 11:23 Dose: 20 mg Documented by: [id number] Admin: 02/01/19 08:40 Dose: 20 mg Documented by: [id number] Admin: 01/31/19 08:28 Dose: 20 mg Documented by: [id number] Admin: 01/30/19 07:39 Dose: 20 mg Documented by: [id number] Admin: 01/29/19 07:50 Dose: 20 mg Documented by: [id number] Admin: 01/28/19 08:35 Dose: 20 mg Documented by: [id number] Admin: 01/27/19 09:06 Dose: 20 mg Documented by: [id number] Promethazine HCl (Phenergan) 25 mg PO Q6H PRN PRN Reason: Nausea Stop: 02/25/19 18:49 Last Admin: 02/02/19 01:50 Dose: 25 mg Documented by: [id number] Admin: 01/30/19 19:22 Dose: 25 mg Documented by: [id number] Admin: 01/29/19 19:03 Dose: 25 mg Documented by: [id number] Admin: 01/28/19 11:54 Dose: 25 mg Documented by: [id number] Propranolol HCl (Inderal) 5 mg PO DAILY [facility] Stop: 02/26/19 08:59 Last Admin: 02/02/19 11:21 Dose: 5 mg Documented by: [id number] Admin: 02/01/19 08:42 Dose: Not Given Documented by: [id number] Admin: 01/31/19 08:28 Dose: 5 mg Documented by: [id number] Admin: 01/30/19 07:40 Dose: 5 mg Documented by: [id number] Admin: 01/29/19 07:49 Dose: 5 mg Documented by: [id number] Admin: 01/28/19 08:32 Dose: Not Given Documented by: [id number] Admin: 01/27/19 09:06 Dose: 5 mg Documented by: [id number] Rifaximin (Xifaxan) 550 mg PO BID [facility] Stop: 02/25/19 20:59 Last Admin: 02/02/19 11:24 Dose: 550 mg Documented by: [id number] Admin: 02/01/19 21:24 Dose: 550 mg Documented by: [id number] Admin: 02/01/19 08:41 Dose: 550 mg Documented by: [id number] Admin: 01/31/19 21:33 Dose: 550 mg Documented by: [id number] Admin: 01/31/19 08:27 Dose: 550 mg Documented by: [id number] Admin: 01/30/19 20:27 Dose: 550 mg Documented by: [id number] Admin: 01/30/19 07:40 Dose: 550 mg Documented by: [id number] Admin: 01/29/19 20:25 Dose: 550 mg Documented by: [id number] Admin: 01/29/19 07:49 Dose: 550 mg Documented by: [id number] Admin: 01/28/19 21:43 Dose: 550 mg Documented by: [id number] Admin: 01/28/19 08:35 Dose: 550 mg Documented by: [id number] Admin: 01/27/19 20:41 Dose: 550 mg Documented by: [id number] Admin: 01/27/19 09:07 Dose: 550 mg Documented by: [id number] Admin: 01/26/19 20:30 Dose: 550 mg Documented by: [id number] Spironolactone (Aldactone) 50 mg PO DAILY [facility] Stop: 02/26/19 08:59 Last Admin: 02/02/19 11:16 Dose: 50 mg Documented by: [id number] Admin: 02/01/19 08:40 Dose: 50 mg Documented by: [id number] Admin: 01/31/19 08:27 Dose: 50 mg Documented by: [id number] Admin: 01/30/19 07:39 Dose: 50 mg Documented by: [id number] Admin: 01/29/19 07:50 Dose: 50 mg Documented by: [id number] Admin: 01/28/19 08:35 Dose: 50 mg Documented by: [id number] Admin: 01/27/19 09:06 Dose: 50 mg Documented by: [id number] Trimethoprim/Sulfamethoxazole (Septra Ds 800/160mg Tab) 1 tab PO MoWeFr@0900 [facility] Stop: 02/27/19 08:59 Last Admin: 02/01/19 08:40 Dose: 1 tab Documented by: [id number] Admin: 01/30/19 07:40 Dose: 1 tab Documented by: [id number] Admin: 01/28/19 08:35 Dose: 1 tab Documented by: [id number] Discharge Plan Visit Data *Final* Discharge Date/Time: 01/26/19 18:57 Chief Complaint: Fall Stated Complaint: fall/ facial injury ED Provider: Americo Lemus Discharge Problem: Generalized weakness, Ambulatory dysfunction, Nasal bone fracture, Noninfected skin tear of right leg, Laceration of nose Patient Disposition: Admitted As Inpatient Discharge Instructions Interventions: ED Discharge Assessment Last Done: 01/26/19 18:57 Discharge Problem: Nasal bone fracture Qualifiers: Encounter type: initial encounter Fracture type: closed Qualified Code(s): S02.2XXA - Fracture of nasal bones, initial encounter for closed fracture Noninfected skin tear of right leg Qualifiers: Encounter type: initial encounter Qualified Code(s): S81.811A - Laceration without foreign body, right lower leg, initial encounter Laceration of nose Qualifiers: Encounter type: initial encounter Qualified Code(s): S01.21XA - Laceration without foreign body of nose, initial encounter
== END 2019-02-02 15:00 | DRG 92 ==
LOC: ED 13:47 → 4W 17:50 → SUATTDRO 17:50 → 4W 18:57

== ENCOUNTER 2019-03-12 15:02 | Inpatient (IN) ==
[2019-03-12 15:47] LABS: Eosinophils # (auto) 0.08 K/uL (0-0.5); Eosinophils % (auto) 1.1 %; Hematocrit (blood only) 25.4 % (42-52); Hemoglobin 7.8 g/dL (14.0-18.0); Immature Granulocytes # (auto) 0.05 K/uL (0.00-0.02); Immature Granulocytes % (auto) 0.7 %; Lymphocytes # (auto) 0.51 K/uL (1.2-3.4); Mean Corpuscular Hgb Conc 30.7 g/dL (32-36); Mean Corpuscular Volume 71.3 fL (80-100); Mean Platelet Volume 8.9 fL (7.4-10.4); Monocytes # (auto) 0.88 K/uL (0.11-0.59); Monocytes % (auto) 12.1 %; Neutrophils # (auto) 5.77 K/uL (1.4-6.5); Neutrophils % (auto) 79.1 %; Platelet Count 124 K/uL (130-400); RDW Coefficient of Variation 19.6 % (11.5-14.5); Red Blood Count 3.56 M/uL (4.7-6.1); White Blood Count 7.29 K/uL (4.8-10.8)
[2019-03-12 16:02] LABS: Alanine Aminotransferase 35 U/L (12-78); Albumin Level 2.1 gm/dl (3.4-5.0); Aspartate Aminotransferase 53 U/L (15-37); BUN Creatinine Ratio 24.1 (10-20); Blood Urea Nitrogen 39 mg/dl (7-18); Carbon Dioxide 27 mmol/L (21-32); Chloride 101 mmol/L (98-107); Creatinine Clr Calc Pharmacy 44.4 ml/min; Est GFR (African American) 50.5; Est GFR (Non-African American) 43.6; Glucose 73 mg/dl (70-99); Magnesium 2.1 mg/dl (1.8-2.4); Sodium 134 mmol/L (136-145)
[2019-03-12 16:13] LABS: Albumin Globulin Ratio 0.6 (0.9-2); Alkaline Phosphatase 291 U/L (45-117); Bilirubin,Total 2.3 mg/dl (0.2-1); Globulin 3.7 gm/dl (2.5-4.0); Total Protein 5.8 gm/dl (6.4-8.2); Troponin I < 0.015 ng/ml (0-0.045)
[2019-03-12 16:25] LABS: Appearance Urine Clear (Clear); Bilirubin Urine Negative (Negative); Blood Urine Negative (Negative); Color Urine Yellow; Glucose Urine UA Negative (Negative); Ketones Urine Negative (Negative); Leukocyte Esterase Urine Negative (Negative); Nitrite Urine Negative (Negative); Protein Urine Negative (Negative); Specific Gravity Urine 1.016 (1.000-1.030); Urobilinogen Urine Negative (Negative)
[2019-03-12 16:30] LABS: Hypochromasia Present; Ovalocytes 1+
--- NOTE | 2019-03-12 16:36 | XRay Report ---
XR chest 1V portable CLINICAL HISTORY: weakness COMPARISON STUDY: 02/26/2019 FINDINGS: The heart is normal in size. There is aortic tortuosity. There is mild chronic interstitial thickening. There is no lobar consolidation. There is no overt failure. There are no pleural effusio ns.[ IMPRESSION: No active disease in the chest. Electronically signed by: Ian Jones M.D. 03/12/2019 4:35 PM
--- NOTE | 2019-03-12 16:36 | CT Scan Report ---
CT head/brain wo con CLINICAL HISTORY: 64 years-old Male presenting with AMS, confusion, weakness. TECHNIQUE: Multidetector CT imaging of the head was performed without the use of intravenous contrast . IV contrast: None. One or more dose lowering techniques were used consistent with the principles of ALARA (as low as reasonably achievable), including automatic exposure control, mA or kV adjustment t o individual patient size, and/or use of iterative reconstruction. COMPARISON: 02/26/2019. CT DOSE (mGy.cm): The estimated cumulative dose is 1038.76 mGycm. FINDINGS: Blasting Helper topogram: Unremarkable. Proportional ventricular and sulcal prominence, likely age-related parenchymal volume loss. No hemorr russ. Periventricular and subcortical white matter hypoattenuation, nonspecific but likely indicative of chronic small vessel ischemic change. No acute territorial infarct. No mass effect or midline marilyn ft. No extra-axial fluid collection. Extensive sinus opacification similar to prior exam. Internal hi gh density material within the maxillary sinuses as well as extensive opacification of sphenoid sinus es and ethmoid air cells. Calvarium intact. IMPRESSION: 1. Chronic small vessel ischemic change. No acute intracranial abnormality. 2. Findings may suggest chronic allergic fungal sinusitis, an appearance similar to prior exam. Electronically signed by: Jayro Frankel M.D. 03/12/2019 4:35 PM
[2019-03-12] MEDS ORDERED: SODIUM CHLORIDE 0.9% 1000ML 1,000 ML IV STA (16:48)
[2019-03-12] MEDS ORDERED: LACTULOSE SYRUP 20 GM/30 ML UDC PO STA (17:02)
[2019-03-12 17:24] LABS: HCO3 ABG 23 mmol/L (19-24); Oxygen Saturation ABG 94.1 % (90-95); PCO2 ABG 31 mmHg (35-46); PO2 ABG 78 mm/Hg (80-95); pH ABG 7.49 (7.35-7.45)
[2019-03-12 17:25] LABS: Allen Test POS (Pos)
--- NOTE | 2019-03-12 18:35 | Emergency Department Note ---
Entered by Kayla Heller acting as a scribe for ED Provider Note CHIEF COMPLAINT: Confusion HISTORY OF PRESENT ILLNESS: The patient is a 64 year old male who presents to the Emergency Room with complaints of confusion today. Per , the patient is confused and not his normal self. The patient reports having pain in his lower back. Per , the patient has chronic pain from 7 back surgeries. His states that the patient does not always take his lactulose and has had problems with his ammonia levels in the past. Per , the patient has had right arm weakness for a couple of weeks and has been retaining fluid in his ankles. His states that the patient had a paracentesis on February 22 and has been in physical therapy and has had recent falls. Per , the patient is diabetic and has alcoholic cirrhosis. Pt and deny LOC, headache, fevers, chills, neck pain, chest pain, breathing difficulties, nausea, vomiting, abdominal pain, melena, hematochezia, urinary symptoms, numbness, lymphadenopathy, rash, or other complaints. Limited HPI secondary to mental status. REVIEW OF SYSTEMS: Limited ROS secondary to mental status. PMHx/PSHx: HTN, ARF, GERD, DVT, depression, asthma, lumbar stenosis SOCIAL HISTORY: Patient lives at home. PHYSICAL EXAM: GENERAL: Chronically ill appearing. HENT: Normocephalic, atraumatic. Oropharynx unremarkable. EYES: PERRL. Normal conjunctiva. Sclera non-icteric. NECK: Inspection normal. Non-tender. Supple. No nuchal rigidity. FROM. No masses. RESPIRATORY: Clear to auscultation. No wheezes. No rales. Normal respiratory effort. CARDIAC: Normal rate. Normal rhythm. No murmurs. No rubs. Extremities warm and well perfused. Pulses equal. No JVD. GI: Soft, non-distended. No tenderness to palpation. No rebound or guarding. No masses. RECTAL: Deferred. MUSCULOSKELETAL: Atraumatic. Chest examination reveals no tenderness. The back is symmetrical on inspection without obvious abnormality. There is no CVA tenderness to palpation. No joint edema. LOWER EXTREMITIES: Calves are equal size bilaterally and non-tender. 2+ lower extremity edema. Chronic venous discoloration. NEURO: Altered sensorium. Oriented to person and place only. SKIN: No rash or jaundice noted. Multiple skin tears of various stages of h ealing on the upper and lower extremities. No signs of cellulitis. EMERGENCY DEPARTMENT COURSE: 153: Past medical records reviewed. The patient was evaluated in room A11B, and a complete history and physical examination were performed. 1650: I updated the patient's who verbalized agreement and understanding of the treatment plan. 1657: I discussed the patient's case with Dr. Celina Hernandez who will evaluate the patient for further management. She asked that I order a dose of lactulose for him now. MEDICAL DECISION MAKING: Prior records/ancillary studies reviewed and summarized above. Nursing notes reviewed and agree them. Additional history obtained from the patient's . The patient's history was concerning for altered mental status. Differential diagnosis: Etiologies such as infection, hypoglycemia, electrolyte abnormalities, cardiac sources, intracerebral event, toxicologic, neurologic, as well as others were entertained. Physical examination: Patient was oriented to person and place only. He was confused on time and events. ER treatment provided: IV Lock Normal saline hydration Oral lactulose Cardia monitoring On reassessment the patient felt better. Diagnostics interpretation by me: ECG: No acute ischemia or dysrhythmia The labs revealed a stable anemia on CBC. Chemistry panel showed elevated LFTs consistent with prior. Stable renal insufficiency. ABG showed no evidence of hypercarbia. His oxygen was borderline low but stable compared to prior. Ammonia level normal. Imaging studies: Chest x-ray and CT scan performed and were negative for acute process. The patient has confusion. He denies any headache. There is no evidence of acute intracranial abnormality on CT scan. Chronic sinus issues noted that were unchanged from prior. Again the patient denied any pain. He had no neck pain. There has been no fever. The patient denied any abdominal pain he had not he had a benign abdominal examination. Given his confusion further management in the hospital will be necessary. Consultation: A consultation was placed with the hospitalist. The case was discussed and diagnostics were reviewed. The patient was evaluated in the ER for further t reatment. IMPRESSION: Altered mental status PLAN: Admitted The scribe's documentation has been prepared under my direction and personally reviewed by me in its entirety. I confirm that the note above accurately reflects all work, treatment, procedures, and medical decision making performed by me. Impression & Plan Altered mental status Past Med/Surg History Medical History Abdominal pain (Acute) Abscess in epidural space of lumbar spine (Acute) Altered mental status (Acute) Asthma (Acute) Diabetic autonomic neuropathy (Acute) Diarrhea (Acute) Fall in home (Acute) Fever (Acute) Fungemia (Acute) Fusion of spine (Acute) GERD (gastroesophageal reflux disease) (Acute) GI bleed (Acute) Gram negative septicemia (Acute) Hepatic encephalopathy (Acute) Hyperammonemia (Acute) Hyperlipidemia (Acute) Hypertension (Acute) Hypertension (Acute) Hypokalemia (Acute) Hypoxia (Acute) Immunocompromised (Acute) Infection of lumbar spine (Acute) Kidney stones (Acute) Lactic acidosis (Acute) Left leg cellulitis (Acute) Lumbar compression fracture (Acute) Lumbar disc herniation with radiculopathy (Acute) Lumbar stenosis with neurogenic claudication (Acute) Marijuana smoker (Acute) Meningitis (Acute) Obesity (Acute) Open wound of LLQ of abdominal wall w/o penentrat into periton cavity (Acute) Peritonitis (acute) generalized (Acute) Pneumonia (Acute) Post op infection (Acute) Sarcoidosis (Acute) Sepsis (Acute) Septal defect (Acute) Septic shock (Acute) Severe sepsis (Acute) Sleep apnea (Acute) Tenosynovitis, de Quervain (Acute) Thrombocytopenia (Acute) Vomiting (Acute) Alcoholic cirrhosis Surgical History History of carpal tunnel release (Acute) History of cataract surgery (Acute) History of herniorrhaphy (Acute) History of lithotripsy (Acute) History of repair of rotator cuff (Acute) Family History Father Heart attack Social History Preferred Language: Slovak Communication Ability: Effective Bus Mechanic Required: No Beliefs That Will Affect Care: None marital status: Current Living Situation: Spouse Other Information That Helps Us Care for You: No Feels Safe at Home: Yes Safety Concerns: Feels Safe At This Time Smoking Status: Former smoker Do You Dip or Chew Tobacco: No Second Hand Exposure: No Hx Alcohol Use: No Hx Substance Use: No Results & Data Vital Signs Vital Signs - 24 hr 03/12/19 15:07 03/12/19 15:15 03/12/19 15:24 Temperature 37.2 C Temperature Source Oral Sepsis Recent Fever Within 48 Hours No Sepsis Action Taken by Nursing No Action Required Pulse Rate 77 81 78 Pulse Rate from SpO2 Sensor 76 79 Respiratory Rate 17 11 L 18 Respiratory Depth Normal Blood Pressure 118/76 118/76 Blood Pressure Mean 90 90 Pulse Oximetry 97 98 96 Oxygen Delivery Method Room Air 03/12/19 15:30 03/12/19 15:32 03/12/19 16:00 Temperature Temperature Source Sepsis Recent Fever Within 48 Hours Sepsis Action Taken by Nursing Pulse Rate 78 78 76 Pulse Rate from SpO2 Sensor 78 75 Respiratory Rate 13 16 Respiratory Depth Blood Pressure Blood Pressure Mean Pulse Oximetry 98 97 91 Oxygen Delivery Method Room Air 03/12/19 16:17 03/12/19 16:30 03/12/19 17:00 Temperature Temperature Source Sepsis Recent Fever Within 48 Hours Sepsis Action Taken by Nursing Pulse Rate 78 80 76 Pulse Rate from SpO2 Sensor 79 74 Respiratory Rate 17 16 14 Respiratory Depth Blood Pressure 133/79 Blood Pressure Mean 97 Pulse Oximetry 96 95 Oxygen Delivery Method 03/12/19 17:30 03/12/19 17:32 03/12/19 17:50 Temperature Temperature Source Sepsis Recent Fever Within 48 Hours Sepsis Action Taken by Nursing Pulse Rate 77 77 Pulse Rate from SpO2 Sensor 77 77 Respiratory Rate 14 19 Respiratory Depth Blood Pressure 104/72 Blood Pressure Mean 82 Pulse Oximetry 97 97 98 Oxygen Delivery Method Room Air Home Medications Current Medication List: was personally reviewed by me Laboratory Data Attestation: I reviewed the patient's lab results. Result diagrams: 03/12/19 15:20 03/12/19 15:20 Lab Results 03/12/19 03/12/19 03/12/19 Range/Units 15:20 15:20 16:07 WBC 7.29 (4.8-10.8) K/uL RBC 3.56 L (4.7-6.1) M/uL Hgb 7.8 L (14.0-18.0) g/dL Hct 25.4 L (42-52) % MCV 71.3 L (80-100) fL MCH 21.9 L (25-34) pg MCHC 30.7 L (32-36) g/dL RDW Std Deviation 51.0 H (36.4-46.3) fL RDW Coeff of Curt 19.6 H (11.5-14.5) % Plt Count 124 L (130-400) K/uL MPV 8.9 (7.4-10.4) fL Immature Gran % (Auto) 0.7 % Neut % (Auto) 79.1 % Lymph % (Auto) 7.0 % [place] % (Auto) 12.1 % Eos % (Auto) 1.1 % Baso % (Auto) 0.0 % Immature Gran # (Auto) 0.05 H (0.00-0.02) K/uL Neut # (Auto) 5.77 (1.4-6.5) K/uL Lymph # (Auto) 0.51 L (1.2-3.4) K/uL [place] # (Auto) 0.88 H (0.11-0.59) K/uL Eos # (Auto) 0.08 (0-0.5) K/uL Baso # (Auto) 0.00 (0-0.2) K/uL Hypochromasia Present Ovalocytes 1+ ABG pH (7.35-7.45) ABG pCO2 (35-46) mmHg ABG pO2 (80-95) mm/Hg ABG HCO3 (19-24) mmol/L ABG O2 Saturation (90-95) % ABG Base Excess (-9-1.8) mEq/L Sergio Test (Pos) Barometric Pressure mm/Hg Oxygen Given Sodium 134 L (136-145) mmol/L Potassium 4.0 (3.5-5.1) mmol/L Chloride 101 (98-107) mmol/L Carbon Dioxide 27 (21-32) mmol/L Anion Gap 6.0 (3-11) BUN 39 H (7-18) mg/dl Creatinine 1.62 H (0.6-1.4) mg/dl Est Cr Clr Drug Dosing 44.4 ml/min Est GFR ( Amer) 50.5 Est GFR (Non-Af Amer) 43.6 BUN/Creatinine Ratio 24.1 H (10-20) Glucose 73 (70-99) mg/dl Calcium 8.0 L (8.5-10.1) mg/dl Magnesium 2.1 (1.8-2.4) mg/dl Total Bilirubin 2.3 H (0.2-1) mg/dl AST 53 H (15-37) U/L ALT 35 (12-78) U/L Alkaline Phosphatase 291 H (45-117) U/L Ammonia 20.3 (11-32) umol/L Troponin I < 0.015 (0-0.045) ng/ml Total Protein 5.8 L (6.4-8.2) gm/dl Albumin 2.1 L (3.4-5.0) gm/dl Globulin 3.7 (2.5-4.0) gm/dl Albumin/Globulin Ratio 0.6 L (0.9-2) TSH 2.000 (0.300-4.500) uIu/ml Urine Color Urine Appearance (Clear) Urine pH (4.5-7.5) Ur Specific [place] (1.000-1.030) Urine Protein (Negative) Urine Glucose (UA) (Negative) Urine Ketones (Negative) Urine Blood (Negative) Urine Nitrite (Negative) Urine Bilirubin (Negative) Urine Urobilinogen (Negative) Ur Leukocyte Esterase (Negative) 03/12/19 03/12/19 Range/Units 16:15 17:12 WBC (4.8-10.8) K/uL RBC (4.7-6.1) M/uL Hgb (14.0-18.0) g/dL Hct (42-52) % MCV (80-100) fL MCH (25-34) pg MCHC (32-36) g/dL RDW Std Deviation (36.4-46.3) fL RDW Coeff of Curt (11.5-14.5) % Plt Count (130-400) K/uL MPV (7.4-10.4) fL Immature Gran % (Auto) % Neut % (Auto) % Lymph % (Auto) % [place] % (Auto) % Eos % (Auto) % Baso % (Auto) % Immature Gran # (Auto) (0.00-0.02) K/uL Neut # (Auto) (1.4-6.5) K/uL Lymph # (Auto) (1.2-3.4) K/uL [place] # (Auto) (0.11-0.59) K/uL Eos # (Auto) (0-0.5) K/uL Baso # (Auto) (0-0.2) K/uL Hypochromasia Ovalocytes ABG pH 7.49 H (7.35-7.45) ABG pCO2 31 L (35-46) mmHg ABG pO2 78 L (80-95) mm/Hg ABG HCO3 23 (19-24) mmol/L ABG O2 Saturation 94.1 (90-95) % ABG Base Excess -0.3 (-9-1.8) mEq/L Sergio Test POS (Pos) Barometric Pressure 727.4 mm/Hg Oxygen Given ROOM AIR Sodium (136-145) mmol/L Potassium (3.5-5.1) mmol/L Chloride (98-107) mmol/L Carbon Dioxide (21-32) mmol/L Anion Gap (3-11) BUN (7-18) mg/dl Creatinine (0.6-1.4) mg/dl Est Cr Clr Drug Dosing ml/min Est GFR ( Amer) Est GFR (Non-Af Amer) BUN/Creatinine Ratio (10-20) Glucose (70-99) mg/dl Calcium (8.5-10.1) mg/dl Magnesium (1.8-2.4) mg/dl Total Bilirubin (0.2-1) mg/dl AST (15-37) U/L ALT (12-78) U/L Alkaline Phosphatase (45-117) U/L Ammonia (11-32) umol/L Troponin I (0-0.045) ng/ml Total Protein (6.4-8.2) gm/dl Albumin (3.4-5.0) gm/dl Globulin (2.5-4.0) gm/dl Albumin/Globulin Ratio (0.9-2) TSH (0.300-4.500) uIu/ml Urine Color Yellow Urine Appearance Clear (Clear) Urine pH 5.0 (4.5-7.5) Ur Specific [place] 1.016 (1.000-1.030) Urine Protein Negative (Negative) Urine Glucose (UA) Negative (Negative) Urine Ketones Negative (Negative) Urine Blood Negative (Negative) Urine Nitrite Negative (Negative) Urine Bilirubin Negative (Negative) Urine Urobilinogen Negative (Negative) Ur Leukocyte Esterase Negative (Negative) Administered Medications Sodium Chloride (Nss 1000ml) 1,000 mls @ 125 mls/hr IV .Q8H STA Stop: 03/13/19 00:47 Last Admin: 03/12/19 17:10 Dose: 125 mls/hr Documented by: [id number] Discontinued Medications Lactulose (Chronulac) 30 gm PO NOW STA Stop: 03/12/19 17:03 Last Admin: 03/12/19 17:22 Dose: 30 gm Documented by: [id number] Imaging Data Radiologist's Impression: Radiology results as stated below per my review and the radiologist's interpretation: XR chest 1V portable CLINICAL HISTORY: weakness COMPARISON STUDY: 02/26/2019 FINDINGS: The heart is normal in size. There is aortic tortuosity. There is mild chronic interstitial thickening. There is no lobar consolidation. There is no overt failure. There are no pleural effusions.[ IMPRESSION: No active disease in the chest. Electronically signed by: Ian Jones M.D. 03/12/2019 4:[address] head/brain wo con CLINICAL HISTORY: 64 years-old Male presenting with AMS, confusion, weakness. TECHNIQUE: Multidetector CT imaging of the head was performed without the use of intravenous contrast. IV contrast: None. One or more dose lowering techniques were used consistent with the principles of ALARA (as low as reasonably achievable), including automatic exposure control, mA or kV adjustment to individual patient size, and/or use of iterative reconstruction. COMPARISON: 02/26/2019. CT DOSE (mGy.cm): The estimated cumulative dose is 1038.76 mGycm. 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 Proportional ventricular and sulcal prominence, likely age-related parenchymal volume loss. No hemorrhage. Periventricular and subcortical white matter hypoattenuation, nonspecific but likely indicative of chronic small vessel ischemic change. No acute territorial infarct. No mass effect or midline shift. No extra-axial fluid collection. Extensive sinus opacification similar to prior exam. Internal high density material within the maxillary sinuses as well as extensive opacification of sphenoid sinuses and ethmoid air cells. Calvarium intact. IMPRESSION: 1. Chronic small vessel ischemic change. No acute intracranial abnormality. 2. Findings may suggest chronic allergic fungal sinusitis, an appearance similar to prior exam. Electronically signed by: Jayro Frankel M.D. 03/12/2019 4:35 PM ECG Data Attestation: I personally reviewed and interpreted this ECG as follows: Indication: altered mental status Rate (beats per minute): 77 Rhythm: normal sinus Findings: no PAC, no PVC, no ST depression, no ST elevation, no acute ischemic change and no ectopy Blood Pressure Blood Pressure Findings: Normal blood pressure Discharge Plan Visit Data Chief Complaint: Confusion Stated Complaint: CONFUSION, ILLNESS ED Provider: Orlando Ovalle Discharge Problem: Altered mental status Patient Disposition: Being Evaluated by Hospitalist Forms Stand Alone Forms: My [facility] Prescriptions Prescriptions: No Action furosemide 40 mg tablet 40 mg PO BID RF: 0 loratadine 10 mg Tablet 10 mg PO HS RF: 0 fentanyl [Duragesic] 25 mcg/hr Patch 72 Hour 1 patch TRANSDERMAL Q72H RF: 0 fluoxetine 40 mg Capsule 40 mg PO DAILY RF: 0 Lantus U-100 Insulin 100 unit/mL Solution 15 unit SUBCUT BID RF: 0 atorvastatin 10 mg Tablet 10 mg PO DAILY RF: 0 prednisone 20 mg Tablet 20 mg PO DAILY RF: 0 potassium chloride 10 mEq Tablet Extended Release 10 meq PO BID RF: 0 sulfamethoxazole-trimethoprim [Bactrim DS] 800-160 mg Tablet 1 tab PO 3XWK MDD -- RF: 0 acetaminophen 500 mg Tablet 500 mg PO QID PRN (Reason: Pain) RF: 0 pentoxifylline 400 mg Tablet Extended Release 400 mg PO BID RF: 0 propranolol 10 mg Tablet 5 mg PO QAM RF: 0 lactulose 10 gram Packet 1 dose PO BID RF: 0 pantoprazole 40 mg Tablet,Delayed Release (Dr/Ec) 40 mg PO DAILY RF: 0 promethazine 25 mg Tablet 25 mg PO Q6H PRN (Reason: Nausea) RF: 0 mometasone 50 mcg/actuation [place],Non-Aerosol 50 mcg intranasal BID PRN (Reason: Congestion) RF: 0 multivitamin with minerals Tablet 1 tab PO DAILY RF: 0 albuterol sulfate 90 mcg/actuation Hfa Aerosol Inhaler 2 puff INHALATION Q6H PRN (Reason: sob) RF: 0 spironolactone 50 mg Tablet 50 mg PO DAILY RF: 0 simethicone 80 mg Tablet,Chewable 80 mg PO BID PRN (Reason: flatulence/gas) RF: 0 Refresh Celluvisc 1 % [place],Gel 1 dose ophthalmic (eye) BID RF: 0 Xifaxan 550 mg Tablet 550 mg PO BID RF: 0 Referrals Referrals: Hu Nielsen MD [Primary Care Provider] - The scribe's documentation has been prepared under my direction and personally reviewed by me in its entirety. I confirm that the note above accurately reflects all work, treatment, procedures, and medical decision making performed by me.
--- NOTE | 2019-03-12 19:20 | History & Physical Report ---
Date of Service March 12, 2019 Assessment & Plan (1) Altered mental status: Acute metabolic encephalopathy. Patient with one day of confusion/somnolence/weakness and fatigue. Workup thus far with unremarkable CT head. Stable hyponatremia Fs=774, CKD with BUN 39, Cr of 1.62 which is slightly worse than baseline. Mild increase in Tbili of 2.3 from 1.8. TSH WNL. VBG with respiratory alkalosis, no CO2 retention. Ammonia level normal. Patient is afebrile, hemodynamically stable, no leukocytosis. No overt evidence of infectious process. Unclear source of AMS, ?hepatic etiology, ?renal function. -Blood cultures x 2 sets -Check INR -Frequent orientation -Monitor I/O, electrolytes -Check Utox -Delirium prevention strategies, frequent orientation (2) Cirrhosis: Patient with cirrhosis secondary to EtOH and sarcoidosis. -Hold Lasix and Spironolactone for now -Continue Rifaximin and Lactulose -Albumin 25% x 2 bottles -Monitor electrolytes, renal function and LFTs Present on Admission?: Yes (3) Abrasion: Multiple skin abrasions from frequent falls -Consult wound care -Dressing changes Present on Admission?: Yes (4) Ambulatory dysfunction: Patient with frequent falls at home. Has PT and OT at home presently. -PT/OT assessment. May benefit from inpatient rehab -Fall precautions Present on Admission?: Yes (5) Steroid long-term use: Prednisone 20mg po daily for Sarcoidosis -Continue daily steroids -If patient becomes hypotensive then provide stress-dose steroids Present on Admission?: Yes (6) Sarcoidosis: Chronic -Continue Steroids Present on Admission?: Yes (7) DM type 2 (diabetes mellitus, type 2): Blood sugar well controlled at present. AIC=6.8 on 01/27/19 -Continue home Lantus -ISS -Continue to monitor Present on Admission?: Yes (8) Hypertension: Blood pressure borderline low at present. reports patient runs in the low 100's at baseline -Continue Propranolol with holding parameters -Holding diuretics as above Present on Admission?: Yes (9) Hyperlipidemia: Chronic. -Continue Atorvastatin (10) GERD (gastroesophageal reflux disease): Chronic. -Continue Protonix PO daily F/E/N - Albumin 25% x 2 bottles, monitor electrolytes and replete as needed, low Na diet as tolerated Ppx - Lovenox. Protonix Code -Full Dispo - Medical floor History of Present Illness Chief Complaint: encephalopathy Primary Care Provider: Hu Nielsen MD Mr. Santiago is a 64yo male with multiple medical comorbidities to include cirrhosis of the liver, sarcoidosis, chronic steroid use presenting with metabolic encephalopathy. Patient's and sister are at bedside and provide the majority of the history secondary to patients altered mental status. Patient states that he "feels really sick" but is unable to provide further details. Patient felt well on Monday and was at his baseline functional level. reports that yesterday patient became more confused. He was complaining of severe nausea with multiple episodes of non-bloody/non-bilious emesis. Also with weakness and fatigue. Confusion - patient somnolent and acting inappropriate at times, urinated in his bed on purpose. notes that patient's RUE has been weaker than usual. Also with worsening bilateral LE edema. Frequent falls at home. Patient had large volume paracentesis performed on 02/22/19. Denies fevers/headache/visual changes/neck pain. No abdominal pain/diarrhea/melena/hematochezia/hematemesis. No new medications. No sick contacts or recent travel. ER Course: Lacutlose 30gm, NSS x 1L Allergies Allergy/AdvReac Type Severity Reaction Status Date / Time celecoxib Allergy Intermediate HIVES Verified 03/12/19 19:07 Penicillins Allergy Intermediate HIVES Verified 03/12/19 19:07 Home Medications Home Medications Medication Instructions Recorded Confirmed Type acetaminophen 500 mg PO QID PRN 02/22/19 02/26/19 History albuterol sulfate 2 puff INHALATION Q6H PRN 02/22/19 02/26/19 History atorvastatin 10 mg PO DAILY 02/22/19 02/26/19 History carboxymethylcellulose sodium 1 dose OPHTHALMIC (EYE) BID 02/22/19 02/26/19 History [Refresh Celluvisc] fentanyl [Duragesic] 1 patch TRANSDERMAL Q72H 02/22/19 02/26/19 History fluoxetine 40 mg PO DAILY 02/22/19 02/26/19 History insulin glargine [Lantus U-100 15 unit SUBCUT BID 02/22/19 02/26/19 History Insulin] lactulose 1 dose PO BID 02/22/19 02/26/19 History mometasone 50 mcg INTRANASAL BID PRN 02/22/19 02/26/19 History multivitamin with minerals 1 tab PO DAILY 02/22/19 02/26/19 History pantoprazole 40 mg PO DAILY 02/22/19 02/26/19 History pentoxifylline 400 mg PO BID 02/22/19 02/26/19 History potassium chloride 10 meq PO BID 02/22/19 02/26/19 History prednisone 20 mg PO DAILY 02/22/19 02/26/19 History promethazine 25 mg PO Q6H PRN 02/22/19 02/26/19 History propranolol 5 mg PO QAM 02/22/19 02/26/19 History rifaximin [Xifaxan] 550 mg PO BID 02/22/19 02/26/19 History simethicone 80 mg PO BID PRN 02/22/19 02/26/19 History spironolactone 50 mg PO DAILY 02/22/19 02/26/19 History sulfamethoxazole-trimethoprim 1 tab PO 3XWK MDD m-w-f 02/22/19 02/26/19 History [Bactrim DS] furosemide 40 mg PO BID 02/26/19 02/26/19 History loratadine 10 mg PO HS 02/26/19 02/26/19 History Past Med/Surg History Medical History Abdominal pain (Acute) Abscess in epidural space of lumbar spine (Acute) Altered mental status (Acute) Asthma (Acute) Diabetic autonomic neuropathy (Acute) Diarrhea (Acute) Fall in home (Acute) Fever (Acute) Fungemia (Acute) Fusion of spine (Acute) GERD (gastroesophageal reflux disease) (Acute) GI bleed (Acute) Gram negative septicemia (Acute) Hepatic encephalopathy (Acute) Hyperammonemia (Acute) Hyperlipidemia (Acute) Hypertension (Acute) Hypertension (Acute) Hypokalemia (Acute) Hypoxia (Acute) Immunocompromised (Acute) Infection of lumbar spine (Acute) Kidney stones (Acute) Lactic acidosis (Acute) Left leg cellulitis (Acute) Lumbar compression fracture (Acute) Lumbar disc herniation with radiculopathy (Acute) Lumbar stenosis with neurogenic claudication (Acute) Marijuana smoker (Acute) Meningitis (Acute) Obesity (Acute) Open wound of LLQ of abdominal wall w/o penentrat into periton cavity (Acute) Peritonitis (acute) generalized (Acute) Pneumonia (Acute) Post op infection (Acute) Sarcoidosis (Acute) Septal defect (Acute) Sleep apnea (Acute) Tenosynovitis, de Quervain (Acute) Thrombocytopenia (Acute) Vomiting (Acute) Alcoholic cirrhosis Surgical History History of carpal tunnel release (Acute) History of cataract surgery (Acute) History of herniorrhaphy (Acute) History of lithotripsy (Acute) History of repair of rotator cuff (Acute) Family History Father Heart attack Social History Preferred Language: Hungarian Communication Ability: Effective Lab Clerk Required: No Beliefs That Will Affect Care: None marital status: Current Living Situation: Spouse Other Information That Helps Us Care for You: No Feels Safe at Home: Yes Safety Concerns: Feels Safe At This Time Smoking Status: Former smoker Do You Dip or Chew Tobacco: No Second Hand Exposure: No Hx Alcohol Use: No Hx Substance Use: No Review of Systems Review of Systems: Unobtainable due to cognitive status Physical Exam Physical Exam: General: chronically ill appearing, NAD, AA&O to self and location, slow to answer, somnolent but arousable Skin: multiple skin tears with dressing in place HEENT: NC/AT, PERRL, EOMI, icteric sclera, conjunctiva without injection, exophthalmos, external ear normal to inspection and nontender, nares patent, nasal mucosa pink, dry mucus membranes, poor dentition, no oropharyngeal lesions, neck supple, trachea midline, no LAD, no thyromegaly, no JVD Heart: +S1/S2, regular, 3/6 EMILY across precordium to bilateral carotids, no rubs/gallops Lungs: equal air entry bilaterally, no rales/rhonchi/wheezes Abd: +BS, soft, mildly tender with palpation, no rebound/guarding/peritoneal signs, ND, abdominal wall hernia at LLQ, nontender, No organomegaly/ascites Ext: warm, 2+ pulses in UE/LE bilaterally, no clubbing/cyanosis, 2+ nonpitting pedal edema Neuro: nonfocal, patient AA&O x 2, speech intact but slow, no facial droop, moving all extremities on command with equal strength 5/5, non asterixis Results & Data Vital Signs (Past 12 Hours) Vital Signs Temp Pulse Resp BP Pulse Ox 03/12/19 18:31 76 17 105/72 03/12/19 18:30 74 12 95 03/12/19 18:01 74 32 H 97 03/12/19 18:00 76 11 L 91/69 L 96 03/12/19 17:50 98 03/12/19 17:33 77 13 98 03/12/19 17:32 77 19 104/72 97 03/12/19 17:30 77 14 97 03/12/19 17:00 76 14 95 03/12/19 16:30 80 16 96 03/12/19 16:17 78 17 133/79 03/12/19 16:00 76 16 91 03/12/19 15:32 78 97 03/12/19 15:30 78 13 98 03/12/19 15:24 78 18 96 03/12/19 15:15 37.2 C 81 11 L 118/76 98 03/12/19 15:07 77 17 118/76 97 Laboratory Results Lab Results 03/12/19 03/12/19 03/12/19 Range/Units 15:20 15:20 16:07 WBC 7.29 (4.8-10.8) K/uL RBC 3.56 L (4.7-6.1) M/uL Hgb 7.8 L (14.0-18.0) g/dL Hct 25.4 L (42-52) % MCV 71.3 L (80-100) fL MCH 21.9 L (25-34) pg MCHC 30.7 L (32-36) g/dL RDW Std Deviation 51.0 H (36.4-46.3) fL RDW Coeff of Curt 19.6 H (11.5-14.5) % Plt Count 124 L (130-400) K/uL MPV 8.9 (7.4-10.4) fL Immature Gran % (Auto) 0.7 % Neut % (Auto) 79.1 % Lymph % (Auto) 7.0 % [place] % (Auto) 12.1 % Eos % (Auto) 1.1 % Baso % (Auto) 0.0 % Immature Gran # (Auto) 0.05 H (0.00-0.02) K/uL Neut # (Auto) 5.77 (1.4-6.5) K/uL Lymph # (Auto) 0.51 L (1.2-3.4) K/uL [place] # (Auto) 0.88 H (0.11-0.59) K/uL Eos # (Auto) 0.08 (0-0.5) K/uL Baso # (Auto) 0.00 (0-0.2) K/uL Hypochromasia Present Ovalocytes 1+ ABG pH (7.35-7.45) ABG pCO2 (35-46) mmHg ABG pO2 (80-95) mm/Hg ABG HCO3 (19-24) mmol/L ABG O2 Saturation (90-95) % ABG Base Excess (-9-1.8) mEq/L Sergio Test (Pos) Barometric Pressure mm/Hg Oxygen Given Sodium 134 L (136-145) mmol/L Potassium 4.0 (3.5-5.1) mmol/L Chloride 101 (98-107) mmol/L Carbon Dioxide 27 (21-32) mmol/L Anion Gap 6.0 (3-11) BUN 39 H (7-18) mg/dl Creatinine 1.62 H (0.6-1.4) mg/dl Est Cr Clr Drug Dosing 44.4 ml/min Est GFR ( Amer) 50.5 Est GFR (Non-Af Amer) 43.6 BUN/Creatinine Ratio 24.1 H (10-20) Glucose 73 (70-99) mg/dl Calcium 8.0 L (8.5-10.1) mg/dl Magnesium 2.1 (1.8-2.4) mg/dl Total Bilirubin 2.3 H (0.2-1) mg/dl AST 53 H (15-37) U/L ALT 35 (12-78) U/L Alkaline Phosphatase 291 H (45-117) U/L Ammonia 20.3 (11-32) umol/L Troponin I < 0.015 (0-0.045) ng/ml Total Protein 5.8 L (6.4-8.2) gm/dl Albumin 2.1 L (3.4-5.0) gm/dl Globulin 3.7 (2.5-4.0) gm/dl Albumin/Globulin Ratio 0.6 L (0.9-2) TSH 2.000 (0.300-4.500) uIu/ml Urine Color Urine Appearance (Clear) Urine pH (4.5-7.5) Ur Specific [place] (1.000-1.030) Urine Protein (Negative) Urine Glucose (UA) (Negative) Urine Ketones (Negative) Urine Blood (Negative) Urine Nitrite (Negative) Urine Bilirubin (Negative) Urine Urobilinogen (Negative) Ur Leukocyte Esterase (Negative) 03/12/19 03/12/19 Range/Units 16:15 17:12 WBC (4.8-10.8) K/uL RBC (4.7-6.1) M/uL Hgb (14.0-18.0) g/dL Hct (42-52) % MCV (80-100) fL MCH (25-34) pg MCHC (32-36) g/dL RDW Std Deviation (36.4-46.3) fL RDW Coeff of Curt (11.5-14.5) % Plt Count (130-400) K/uL MPV (7.4-10.4) fL Immature Gran % (Auto) % Neut % (Auto) % Lymph % (Auto) % [place] % (Auto) % Eos % (Auto) % Baso % (Auto) % Immature Gran # (Auto) (0.00-0.02) K/uL Neut # (Auto) (1.4-6.5) K/uL Lymph # (Auto) (1.2-3.4) K/uL [place] # (Auto) (0.11-0.59) K/uL Eos # (Auto) (0-0.5) K/uL Baso # (Auto) (0-0.2) K/uL Hypochromasia Ovalocytes ABG pH 7.49 H (7.35-7.45) ABG pCO2 31 L (35-46) mmHg ABG pO2 78 L (80-95) mm/Hg ABG HCO3 23 (19-24) mmol/L ABG O2 Saturation 94.1 (90-95) % ABG Base Excess -0.3 (-9-1.8) mEq/L Sergio Test POS (Pos) Barometric Pressure 727.4 mm/Hg Oxygen Given ROOM AIR Sodium (136-145) mmol/L Potassium (3.5-5.1) mmol/L Chloride (98-107) mmol/L Carbon Dioxide (21-32) mmol/L Anion Gap (3-11) BUN (7-18) mg/dl Creatinine (0.6-1.4) mg/dl Est Cr Clr Drug Dosing ml/min Est GFR ( Amer) Est GFR (Non-Af Amer) BUN/Creatinine Ratio (10-20) Glucose (70-99) mg/dl Calcium (8.5-10.1) mg/dl Magnesium (1.8-2.4) mg/dl Total Bilirubin (0.2-1) mg/dl AST (15-37) U/L ALT (12-78) U/L Alkaline Phosphatase (45-117) U/L Ammonia (11-32) umol/L Troponin I (0-0.045) ng/ml Total Protein (6.4-8.2) gm/dl Albumin (3.4-5.0) gm/dl Globulin (2.5-4.0) gm/dl Albumin/Globulin Ratio (0.9-2) TSH (0.300-4.500) uIu/ml Urine Color Yellow Urine Appearance Clear (Clear) Urine pH 5.0 (4.5-7.5) Ur Specific [place] 1.016 (1.000-1.030) Urine Protein Negative (Negative) Urine Glucose (UA) Negative (Negative) Urine Ketones Negative (Negative) Urine Blood Negative (Negative) Urine Nitrite Negative (Negative) Urine Bilirubin Negative (Negative) Urine Urobilinogen Negative (Negative) Ur Leukocyte Esterase Negative (Negative) Diagnostic Findings CT head/brain wo con CLINICAL HISTORY: 64 years-old Male presenting with AMS, confusion, weakness. TECHNIQUE: Multidetector CT imaging of the head was performed without the use of intravenous contrast. IV contrast: None. One or more dose lowering techniques were used consistent with the principles of ALARA (as low as reasonably achievable), including automatic exposure control, mA or kV adjustment to individual patient size, and/or use of iterative reconstruction. COMPARISON: 02/26/2019. CT DOSE (mGy.cm): The estimated cumulative dose is 1038.76 mGycm. FINDINGS: Marketing Database Coordinator topogram: Unremarkable. Proportional ventricular and sulcal prominence, likely age-related parenchymal volume loss. No hemorrhage. Periventricular and subcortical white matter hypoattenuation, nonspecific but likely indicative of chronic small vessel ischemic change. No acute territorial infarct. No mass effect or midline shift. No extra-axial fluid collection. Extensive sinus opacification similar to prior exam. Internal high density material within the maxillary sinuses as well as extensive opacification of sphenoid sinuses and ethmoid air cells. Calvarium intact. IMPRESSION: 1. Chronic small vessel ischemic change. No acute intracranial abnormality. 2. Findings may suggest chronic allergic fungal sinusitis, an appearance si milar to prior exam. Electronically signed by: Jayro Frankel M.D. 03/12/2019 4:35 PM Dictated: 03/12/191626 Transcribed: 03/12/191626 XR chest 1V portable CLINICAL HISTORY: weakness COMPARISON STUDY: 02/26/2019 FINDINGS: The heart is normal in size. There is aortic tortuosity. There is mild chronic interstitial thickening. There is no lobar consolidation. There is no overt failure. There are no pleural effusions.[ IMPRESSION: No active disease in the chest. Electronically signed by: Ian Jones M.D. 03/12/2019 4:35 PM Dictated: 03/12/19 1634 Transcribed: 03/12/191633 ECG Additional Comments: NSR at 77bpm, normal axis and intervals, no acute ischemic changes Code Status & VTE Plan Code Status FULL VTE Prophylaxis Plan VTE Prophylaxis will be ordered: Yes Critical Care Time Critical Care Time: No (1) Altered mental status Altered mental status type: unspecified Qualified Code(s): R41.82 - Altered mental status, unspecified (2) Cirrhosis Hepatic cirrhosis type: alcoholic cirrhosis Ascites presence: with ascites Qualified Code(s): K70.31 - Alcoholic cirrhosis of liver with ascites (3) DM type 2 (diabetes mellitus, type 2) Diabetes mellitus terminal supervisor insulin use: with fdc use Diabetes mellitus complication status: without complication Qualified Code(s): E11.9 - Type 2 diabetes mellitus without complications; 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
[2019-03-12] MEDS ORDERED: GLUCOSE 40% GEL 15 GM TUBE PO PRN (19:54)
[2019-03-12] MEDS ORDERED: CARBOHYDRATES FOR HYPOGLYCEMIA PO PRN (19:54)
[2019-03-12] MEDS ORDERED: ALBUMIN 25% 50 ML IV ONE ×2 (19:54)
[2019-03-12] MEDS ORDERED: GLUCAGON FOR INJ 1 MG VIAL SQ PRN (19:54)
[2019-03-12] MEDS ORDERED: DEXTROSE 50% 50 ML SYRINGE IV PRN (19:54)
[2019-03-12] MEDS ORDERED: ALBUTEROL HFA 8 GM INHALER INH PRN (19:54)
[2019-03-12] MEDS ORDERED: GLUCOSE 10 TABS/TUBE PO PRN (19:54)
--- NOTE | 2019-03-12 20:18 | XRay Report ---
XR KUB/Abdomen 1 view CLINICAL HISTORY: nausea COMPARISON STUDY: 01/29/2019 FINDINGS: Extensive postsurgical changes are present within the lumbar spine sacrum. There are old T1 2 and L1 compression fractures. There are no transition zones indicate bowel obstruction. There is a mildly dilated transversely oriented small bowel loop within the left central abdomen. This likely re flects a mild ileus. There is gas present within nondilated colon. A 3 mm calcification projected ove r the left kidney remain stable. IMPRESSION: Minimally dilated left mid abdominal small bowel loop, likely representing a mild ileus. No conventional radiographic evidence of a high-grade bowel obstruction Electronically signed by: Ian Jones M.D. 03/12/2019 8:17 PM
[2019-03-12] MEDS: ONDANSETRON INJ 2 MG/ML 2 ML VIAL IV PRN (20:39)
[2019-03-12] MEDS ORDERED: FLUTICASONE PROPIONATE NA SPR 16 GM BTL PRN (21:00)
[2019-03-12] MEDS ORDERED: INSULIN GLARGINE SOLOSTAR 100 UNITS/ML 3 ML PEN SC SCH (21:00)
[2019-03-12] MEDS ORDERED: ENOXAPARIN INJ 40 MG/0.4 ML SYR SQ SCH (21:00)
[2019-03-12] MEDS: INSULIN ASPART 100 UNITS/ML 3 ML PEN SC SCH (21:40)
[2019-03-12] MEDS: INSULIN GLARGINE SOLOSTAR 100 UNITS/ML 3 ML PEN SC SCH (21:42)
[2019-03-12] MEDS: RIFAXIMIN 550 MG TABLET PO SCH (21:49)
[2019-03-12] MEDS: ATORVASTATIN 10 MG TAB PO SCH (21:49)
[2019-03-12] MEDS: LORATADINE 10 MG TAB PO SCH (21:49)
[2019-03-12] MEDS: POTASSIUM CHLORIDE 10 MEQ TABCR PO SCH (21:50)
[2019-03-12] MEDS: PENTOXIFYLLINE 400MG EXT REL TAB PO SCH (21:51)
[2019-03-12] MEDS: fentaNYL 25 MCG/HR TDSY TD SCH (21:57)
[2019-03-12] MEDS: ARTIFICIAL TEARS OP SCH (22:07)
[2019-03-12] MEDS: LACTULOSE SYRUP 10 GM/15 ML BTL 473 ML PO SCH (22:17)
[2019-03-12] MEDS: CHECK FENTANYL PATCH PLACEMENT SCH (23:54)
[2019-03-13 05:42] LABS: Amphetamines+Metham, Urine Neg (Neg); Barbiturates, Urine Neg (Neg); Benzodiazepine, Urine Neg (Neg); Cocaine, Urine Neg (Neg); MDMA (Ecstacy), Urine Neg (Neg); Methadone, Urine Neg (Neg); Opiate, Urine Neg (Neg); Phencyclidine, Urine Neg (Neg)
[2019-03-13] MEDS: ACETAMINOPHEN SOL 650 MG/20.3 ML UDC PO PRN ×2 (06:49→14:05)
[2019-03-13] MEDS: CHECK FENTANYL PATCH PLACEMENT SCH ×2 (08:22→17:11)
[2019-03-13] MEDS: ARTIFICIAL TEARS OP SCH ×2 (08:23→21:08)
[2019-03-13] MEDS: LACTULOSE SYRUP 10 GM/15 ML BTL 473 ML PO SCH ×2 (08:24→21:05)
[2019-03-13] MEDS: predniSONE 20 MG TAB PO SCH (08:25)
[2019-03-13] MEDS: PENTOXIFYLLINE 400MG EXT REL TAB PO SCH ×2 (08:25→21:07)
[2019-03-13] MEDS: POTASSIUM CHLORIDE 10 MEQ TABCR PO SCH ×2 (08:26→21:08)
[2019-03-13] MEDS: RIFAXIMIN 550 MG TABLET PO SCH ×2 (08:26→21:06)
[2019-03-13] MEDS: FLUOXETINE HCL 20 MG CAP PO SCH (08:28)
[2019-03-13 08:46] LABS: Albumin Level 2.2 gm/dl (3.4-5.0); BUN Creatinine Ratio 22.5 (10-20); Calcium 8.3 mg/dl (8.5-10.1); Creatinine Clr Calc Pharmacy 44.4 ml/min; Est GFR (African American) 50.5; Est GFR (Non-African American) 43.6; Potassium 4.2 mmol/L (3.5-5.1)
[2019-03-13 08:47] LABS: Hematocrit (blood only) 21.9 % (42-52); Hemoglobin 6.7 g/dL (14.0-18.0); Mean Corpuscular Hgb Conc 30.6 g/dL (32-36); Mean Corpuscular Volume 70.2 fL (80-100); Mean Platelet Volume 8.5 fL (7.4-10.4); Platelet Count 70 K/uL (130-400); RDW Coefficient of Variation 19.5 % (11.5-14.5); Red Blood Count 3.12 M/uL (4.7-6.1); White Blood Count 4.42 K/uL (4.8-10.8)
[2019-03-13 08:48] LABS: Anisocytosis Present; Basophils # (auto) 0.01 K/uL (0-0.2); Basophils % (auto) 0.2 %; Echinocytes 1+; Eosinophils # (auto) 0.05 K/uL (0-0.5); Eosinophils % (auto) 1.1 %; Hypochromasia Present; Immature Granulocytes # (auto) 0.03 K/uL (0.00-0.02); Immature Granulocytes % (auto) 0.7 %; Lymphocytes # (auto) 0.39 K/uL (1.2-3.4); Lymphocytes % (auto) 8.8 %; Monocytes # (auto) 0.47 K/uL (0.11-0.59); Monocytes % (auto) 10.6 %; Neutrophils # (auto) 3.47 K/uL (1.4-6.5); Neutrophils % (auto) 78.6 %; Platelet Estimate Decreased (Normal); Poikilocytosis Present; Toxic Granulation 1+
[2019-03-13 08:49] LABS: Bilirubin Direct 1.7 mg/dl (0-0.2); Bilirubin,Total 2.5 mg/dl (0.2-1); Total Protein 5.2 gm/dl (6.4-8.2)
[2019-03-13] MEDS ORDERED: PROPRANOLOL HCL 10 MG TAB PO SCH (09:00)
[2019-03-13] MEDS ORDERED: PANTOprazole 40 MG TAB PO SCH (09:00)
[2019-03-13] MEDS ORDERED: SULFAMETHOXAZOLE/TRIMETHOPRIM DS 800/160MG TAB PO SCH (09:00)
[2019-03-13] MEDS: INSULIN ASPART 100 UNITS/ML 3 ML PEN SC SCH ×4 (09:05→21:09)
[2019-03-13] MEDS: INSULIN GLARGINE SOLOSTAR 100 UNITS/ML 3 ML PEN SC SCH (09:20)
[2019-03-13] MEDS ORDERED: Nursing to Pharmacy Communication ONE ×2 (09:32→18:28)
[2019-03-13 10:37] LABS: INR 1.4 (0.9-1.1); Prothrombin Time 13.8 Seconds (9.0-12.0)
--- NOTE | 2019-03-13 10:46 | Hospitalist Progress Note ---
Date of Service March 13, 2019 Assessment & Plan (1) Nausea & vomiting: Possibly secondary to SBP as has presented this way previously with SBP. Ileus seen on KUB -seems to be improved today -add Zofran as an antiemetic prn (2) Abdominal pain: Possibly secondary to SBP given cirrhosis, recent paracentesis on 02/22/19. has hernia but is reducible and not tender -has fluid collections left flank and left paracolic gutter regions on CT from 02/[address] 04/2018-unsure if loculated ascites? -also with moderate free intraperitoneal fluid on same CT from 02/22 -plan for US-guided paracentesis today -start IV abx afterwards-collect fluid cytology, culture, LDH, TProt, glucose, TG, lipase, AFB -monitor (3) Microcytic anemia: Hgb lower today at 6.7 and may be somewhat hemodilutional given drop in all cell lines Baseline hgb around 7.5, severely microcytic last EGD 2016 with erosive gastritis, portal gastropathy, gastri cpolyps, esophageal Candidiasis as per GI notes Last colonoscopy 2014 with hemorrhoids, diverticulosis Also had a capsule endoscopy at that time with similar findings No obvious bleeding here or at home as per pt and his who saw his emesis -repeat CBC now, type and screen for 1 unit and transfuse if remains < 7.5 -Fe studies, B12, folate, Hemoccult -GI consult to see about EGD this admission and management of cirrhosis- discussed with GI on phone today (4) Altered mental status: Acute metabolic encephalopathy. Patient with one day of confusion/somnolence/weakness and fatigue. Workup thus far with unremarkable CT head except chronic sinusitis. Stable hyponatremia Jx=822, CKD with BUN 39, Cr of 1.62 which is slightly worse than baseline. Mild increase in Tbili of 2.5 from 1.8. TSH WNL. VBG with respiratory alkalosis, no CO2 retention. Ammonia level normal. Patient is afebrile, hemodynamically stable, no leukocytosis. No overt evidence of infectious process, but may be SBP as above Also with +THC on UDS -Blood cultures x 2 sets-NGTD, will follow -Frequent orientation -Monitor I/O, electrolytes -Delirium prevention strategies, frequent orientation (5) Cirrhosis: Patient with cirrhosis secondary to EtOH and sarcoidosis/side effects from multiple treatments used for sarcoidosis including Achtar (synthetic ACTH). NH3 level normal at 20 TBili and DBili, AST, Alk phos mildly elevated With possible SBP as above Was given albumin in ER -Holding Lasix and Spironolactone for now as was mildly dry on admission-restart when possible or at direction of GI -Continue Rifaximin and Lactulose -Monitor electrolytes, renal function and LFTs -paracentesis today -continue propranolol (6) Abrasion: Multiple skin abrasions from frequent falls -Consult wound care -Dressing changes (7) Ambulatory dysfunction: Patient with frequent falls at home. Has PT and OT at home presently. -PT/OT assessment. May benefit from inpatient rehab -Fall precautions (8) Steroid long-term use: Prednisone 20mg po daily for Sarcoidosis -Continue daily steroids -with borderline hypotension here--> will provide stress-dose steroids with HC 50mg IV q8h in addition to prednisone 20mg daily (9) Sarcoidosis: Chronic, pulmonary, unresponsive to multiple drugs in the past including high dose steroids, Remicade, MTX, Acthar -Continue Steroids (10) DM type 2 (diabetes mellitus, type 2): Blood sugar low today, minimal po intake. AIC=6.8 on 01/27/19 -hold home Lantus for now -ISS -Continue to monitor (11) Hypertension: Blood pressure borderline low at present. reports patient runs in the low 100's at baseline -Continue Propranolol with holding parameters -Holding diuretics as above -giving stress dosed steroids (12) Hyperlipidemia: Chronic. -Continue Atorvastatin (13) GERD (gastroesophageal reflux disease): Chronic. -Continue Protonix and increase to bid (14) Thrombocytopenia: plts down to 70 today likely from cirrhosis and some hemodilution -follow CBC (15) Sleep apnea: need to see if uses CPAP at home? (16) Lumbar stenosis with neurogenic claudication: continue chronic pain meds with Fentanyl patch -has had 7 surgeries on back with extensive fusions and rods, has compression fractures (17) Chronic sinusitis: seen on CT Head, pansinusitis, asymptomatic -needs ENT f/u (18) DVT prophylaxis: Hold Lovenox for procedure and need to see what INR is Dispo-remain on medical floor Discussed care with on phone who reviewed his HCPOA/Advanced directives with me on phone--> FULL CODE but does not want prolonged life saving measures if prognosis poor or in vegetative state following a resuscitation Subjective Still lethargic today but reports feeling a little better. Frequently falling asleep while talking to me but is appropriate with questions. Says he has diffuse abd pain that started yesterday AM along with the N/V. No current N/V No hematemesis or bloody stools, no melena No chest pain or SOB. Review of Systems Review of Systems: All systems reviewed & are unremarkable except as noted in HPI & below Physical Exam Constitutional: + ill appearing (chronically ill appearing) and + obese lethargic Eyes: PERRL, conjunctivae normal, anicteric sclerae ENMT: external ear and nose normal, oropharynx normal Neck: trachea midline, no thyromegaly Respiratory: normal respiratory effort, lungs clear to auscultation Cardiovascular: Rate/Rhythm: regular rate and regular rhythm Heart Sounds: + murmur (2/6 at RUSB) Extremities: + edema (left foot and leg 1+ pitting edema chronic as per pt>right) Gastrointestinal (Abdomen): Inspection/Auscultation: + abdomen abnormal to inspection (very large LLQ hernia, reducible and nontender) Percussion/Pal pation: + abdomen tender (diffusely but moreso in periumbilical region) Musculoskeletal: Extremities: extremities normal to inspection; no cyanosis and no clubbing Skin: + wound (multiple scabbed over lesions on all extremities) Neurologic: moves all extremities and awake (but falls asleep easily); no focal motor deficits Psychiatric: Orientation: oriented to person, oriented to place, oriented to time (year and month) and cooperative Genitourinary: no testicular masses, no penis abnormality Results & Data Vital Signs (Past 12 Hours) Vital Signs Temp Pulse Resp BP Pulse Ox 03/13/19 07:17 36.6 C 73 20 91/64 L 98 03/12/19 22:48 36.5 C 78 16 103/66 99 Laboratory Results 03/13/19 03/13/19 03/13/19 Range/Units 10:19 10:10 10:10 WBC (4.8-10.8) K/uL RBC (4.7-6.1) M/uL Hgb (14.0-18.0) g/dL Hct (42-52) % MCV (80-100) fL MCH (25-34) pg MCHC (32-36) g/dL RDW Std Deviation (36.4-46.3) fL RDW Coeff of Curt (11.5-14.5) % Plt Count (130-400) K/uL MPV (7.4-10.4) fL Immature Gran % (Auto) % Neut % (Auto) % Lymph % (Auto) % [place] % (Auto) % Eos % (Auto) % Baso % (Auto) % Immature Gran # (Auto) (0.00-0.02) K/uL Neut # (Auto) (1.4-6.5) K/uL Lymph # (Auto) (1.2-3.4) K/uL [place] # (Auto) (0.11-0.59) K/uL Eos # (Auto) (0-0.5) K/uL Baso # (Auto) (0-0.2) K/uL Toxic Granulation Platelet Estimate (Normal) Polychromasia Hypochromasia Poikilocytosis Anisocytosis Target Cells Ovalocytes Echinocytes PT 13.8 H (9.0-12.0) Seconds INR 1.4 H (0.9-1.1) ABG pH (7.35-7.45) ABG pCO2 (35-46) mmHg ABG pO2 (80-95) mm/Hg ABG HCO3 (19-24) mmol/L ABG O2 Saturation (90-95) % ABG Base Excess (-9-1.8) mEq/L Sergio Test (Pos) Barometric Pressure mm/Hg Oxygen Given Sodium (136-145) mmol/L Potassium (3.5-5.1) mmol/L Chloride (98-107) mmol/L Carbon Dioxide (21-32) mmol/L Anion Gap (3-11) BUN (7-18) mg/dl Creatinine (0.6-1.4) mg/dl Est Cr Clr Drug Dosing ml/min Est GFR ( Amer) Est GFR (Non-Af Amer) BUN/Creatinine Ratio (10-20) Glucose (70-99) mg/dl POC Glucose (70-99) Lactate (0.4-2.0) mmol/L Calcium (8.5-10.1) mg/dl Phosphorus (2.5-4.9) mg/dl Magnesium (1.8-2.4) mg/dl Iron (35-175) mcg/dl TIBC (250-450) mcg/dl Transferrin (200-360) mg/dl Transferrin % Sat (20-50) % Ferritin (8-388) ng/ml Total Bilirubin (0.2-1) mg/dl Direct Bilirubin (0-0.2) mg/dl AST (15-37) U/L ALT (12-78) U/L Alkaline Phosphatase (45-117) U/L Ammonia (11-32) umol/L Troponin I (0-0.045) ng/ml Total Protein (6.4-8.2) gm/dl Albumin (3.4-5.0) gm/dl Globulin (2.5-4.0) gm/dl Albumin/Globulin Ratio (0.9-2) Vitamin B12 Pending Folate Pending TSH (0.300-4.500) uIu/ml Urine Color Urine Appearance (Clear) Urine pH (4.5-7.5) Ur Specific [place] (1.000-1.030) Urine Protein (Negative) Urine Glucose (UA) (Negative) Urine Ketones (Negative) Urine Blood (Negative) Urine Nitrite (Negative) Urine Bilirubin (Negative) Urine Urobilinogen (Negative) Ur Leukocyte Esterase (Negative) Urine Opiates Screen (Neg) Ur Methadone, Qual (Neg) Urine Barbiturates (Neg) Ur Phencyclidine (PCP) (Neg) U Amphetamin/Meth Scrn (Neg) MDMA (Ecstasy) Screen (Neg) U Benzodiazepines Scrn (Neg) Ur Cocaine Metabolite (Neg) U Marijuana (THC) Screen (Neg) U Marijuana THC Carboxy Blood Type Pending Antibody Screen Pending Crossmatch See Detail 03/13/19 03/13/19 03/13/19 Range/Units 10:10 10:10 08:27 WBC 4.39 L (4.8-10.8) K/uL RBC 3.09 L (4.7-6.1) M/uL Hgb 6.8 L* (14.0-18.0) g/dL Hct 21.7 L (42-52) % MCV 70.2 L (80-100) fL MCH 22.0 L (25-34) pg MCHC 31.3 L (32-36) g/dL RDW Std Deviation 50.4 H (36.4-46.3) fL RDW Coeff of Curt 19.7 H (11.5-14.5) % Plt Count 77 L (130-400) K/uL MPV 9.0 (7.4-10.4) fL Immature Gran % (Auto) 0.7 % Neut % (Auto) 80.2 % Lymph % (Auto) 6.2 % [place] % (Auto) 11.8 % Eos % (Auto) 1.1 % Baso % (Auto) 0.0 % Immature Gran # (Auto) 0.03 H (0.00-0.02) K/uL Neut # (Auto) 3.52 (1.4-6.5) K/uL Lymph # (Auto) 0.27 L (1.2-3.4) K/uL [place] # (Auto) 0.52 (0.11-0.59) K/uL Eos # (Auto) 0.05 (0-0.5) K/uL Baso # (Auto) 0.00 (0-0.2) K/uL Toxic Granulation Platelet Estimate Decreased (Normal) Polychromasia 1+ Hypochromasia Present Poikilocytosis Anisocytosis Target Cells 1+ Ovalocytes 1+ Echinocytes PT (9.0-12.0) Seconds INR (0.9-1.1) ABG pH (7.35-7.45) ABG pCO2 (35-46) mmHg ABG pO2 (80-95) mm/Hg ABG HCO3 (19-24) mmol/L ABG O2 Saturation (90-95) % ABG Base Excess (-9-1.8) mEq/L Sergio Test (Pos) Barometric Pressure mm/Hg Oxygen Given Sodium (136-145) mmol/L Potassium (3.5-5.1) mmol/L Chloride (98-107) mmol/L Carbon Dioxide (21-32) mmol/L Anion Gap (3-11) BUN (7-18) mg/dl Creatinine (0.6-1.4) mg/dl Est Cr Clr Drug Dosing ml/min Est GFR ( Amer) Est GFR (Non-Af Amer) BUN/Creatinine Ratio (10-20) Glucose (70-99) mg/dl POC Glucose 78 (70-99) Lactate (0.4-2.0) mmol/L Calcium (8.5-10.1) mg/dl Phosphorus (2.5-4.9) mg/dl Magnesium (1.8-2.4) mg/dl Iron 15 L (35-175) mcg/dl TIBC 192 L (250-450) mcg/dl Transferrin 148 L (200-360) mg/dl Transferrin % Sat 7 L (20-50) % Ferritin 110.3 (8-388) ng/ml Total Bilirubin (0.2-1) mg/dl Direct Bilirubin (0-0.2) mg/dl AST (15-37) U/L ALT (12-78) U/L Alkaline Phosphatase (45-117) U/L Ammonia (11-32) umol/L Troponin I (0-0.045) ng/ml Total Protein (6.4-8.2) gm/dl Albumin (3.4-5.0) gm/dl Globulin (2.5-4.0) gm/dl Albumin/Globulin Ratio (0.9-2) Vitamin B12 Folate TSH (0.300-4.500) uIu/ml Urine Color Urine Appearance (Clear) Urine pH (4.5-7.5) Ur Specific [place] (1.000-1.030) Urine Protein (Negative) Urine Glucose (UA) (Negative) Urine Ketones (Negative) Urine Blood (Negative) Urine Nitrite (Negative) Urine Bilirubin (Negative) Urine Urobilinogen (Negative) Ur Leukocyte Esterase (Negative) Urine Opiates Screen (Neg) Ur Methadone, Qual (Neg) Urine Barbiturates (Neg) Ur Phencyclidine (PCP) (Neg) U Amphetamin/Meth Scrn (Neg) MDMA (Ecstasy) Screen (Neg) U Benzodiazepines Scrn (Neg) Ur Cocaine Metabolite (Neg) U Marijuana (THC) Screen (Neg) U Marijuana THC Carboxy Blood Type Antibody Screen Crossmatch 03/13/19 03/13/19 03/13/19 Range/Units 08:12 08:12 08:12 WBC 4.42 L (4.8-10.8) K/uL RBC 3.12 L (4.7-6.1) M/uL Hgb 6.7 L* (14.0-18.0) g/dL Hct 21.9 L (42-52) % MCV 70.2 L (80-100) fL MCH 21.5 L (25-34) pg MCHC 30.6 L (32-36) g/dL RDW Std Deviation 50.0 H (36.4-46.3) fL RDW Coeff of Curt 19.5 H (11.5-14.5) % Plt Count 70 L (130-400) K/uL MPV 8.5 (7.4-10.4) fL Immature Gran % (Auto) 0.7 % Neut % (Auto) 78.6 % Lymph % (Auto) 8.8 % [place] % (Auto) 10.6 % Eos % (Auto) 1.1 % Baso % (Auto) 0.2 % Immature Gran # (Auto) 0.03 H (0.00-0.02) K/uL Neut # (Auto) 3.47 (1.4-6.5) K/uL Lymph # (Auto) 0.39 L (1.2-3.4) K/uL [place] # (Auto) 0.47 (0.11-0.59) K/uL Eos # (Auto) 0.05 (0-0.5) K/uL Baso # (Auto) 0.01 (0-0.2) K/uL Toxic Granulation 1+ Platelet Estimate Decreased (Normal) Polychromasia Hypochromasia Present Poikilocytosis Present Anisocytosis Present Target Cells Ovalocytes Echinocytes 1+ PT (9.0-12.0) Seconds INR (0.9-1.1) ABG pH (7.35-7.45) ABG pCO2 (35-46) mmHg ABG pO2 (80-95) mm/Hg ABG HCO3 (19-24) mmol/L ABG O2 Saturation (90-95) % ABG Base Excess (-9-1.8) mEq/L Sergio Test (Pos) Barometric Pressure mm/Hg Oxygen Given Sodium 137 (136-145) mmol/L Potassium 4.2 (3.5-5.1) mmol/L Chloride 105 (98-107) mmol/L Carbon Dioxide 25 (21-32) mmol/L Anion Gap 7.0 (3-11) BUN 36 H (7-18) mg/dl Creatinine 1.62 H (0.6-1.4) mg/dl Est Cr Clr Drug Dosing 44.4 ml/min Est GFR ( Amer) 50.5 Est GFR (Non-Af Amer) 43.6 BUN/Creatinine Ratio 22.5 H (10-20) Glucose 73 (70-99) mg/dl POC Glucose (70-99) Lactate 1.6 (0.4-2.0) mmol/L Calcium 8.3 L (8.5-10.1) mg/dl Phosphorus (2.5-4.9) mg/dl Magnesium (1.8-2.4) mg/dl Iron (35-175) mcg/dl TIBC (250-450) mcg/dl Transferrin (200-360) mg/dl Transferrin % Sat (20-50) % Ferritin (8-388) ng/ml Total Bilirubin 2.5 H (0.2-1) mg/dl Direct Bilirubin 1.7 H (0-0.2) mg/dl AST 44 H (15-37) U/L ALT 30 (12-78) U/L Alkaline Phosphatase 232 H (45-117) U/L Ammonia (11-32) umol/L Troponin I (0-0.045) ng/ml Total Protein 5.2 L (6.4-8.2) gm/dl Albumin 2.2 L (3.4-5.0) gm/dl Globulin (2.5-4.0) gm/dl Albumin/Globulin Ratio (0.9-2) Vitamin B12 Folate TSH (0.300-4.500) uIu/ml Urine Color Urine Appearance (Clear) Urine pH (4.5-7.5) Ur Specific [place] (1.000-1.030) Urine Protein (Negative) Urine Glucose (UA) (Negative) Urine Ketones (Negative) Urine Blood (Negative) Urine Nitrite (Negative) Urine Bilirubin (Negative) Urine Urobilinogen (Negative) Ur Leukocyte Esterase (Negative) Urine Opiates Screen (Neg) Ur Methadone, Qual (Neg) Urine Barbiturates (Neg) Ur Phencyclidine (PCP) (Neg) U Amphetamin/Meth Scrn (Neg) MDMA (Ecstasy) Screen (Neg) U Benzodiazepines Scrn (Neg) Ur Cocaine Metabolite (Neg) U Marijuana (THC) Screen (Neg) U Marijuana THC Carboxy Blood Type Antibody Screen Crossmatch 03/13/19 03/13/19 03/12/19 Range/Units 04:45 04:45 20:31 WBC (4.8-10.8) K/uL RBC (4.7-6.1) M/uL Hgb (14.0-18.0) g/dL Hct (42-52) % MCV (80-100) fL MCH (25-34) pg MCHC (32-36) g/dL RDW Std Deviation (36.4-46.3) fL RDW Coeff of Curt (11.5-14.5) % Plt Count (130-400) K/uL MPV (7.4-10.4) fL Immature Gran % (Auto) % Neut % (Auto) % Lymph % (Auto) % [place] % (Auto) % Eos % (Auto) % Baso % (Auto) % Immature Gran # (Auto) (0.00-0.02) K/uL Neut # (Auto) (1.4-6.5) K/uL Lymph # (Auto) (1.2-3.4) K/uL [place] # (Auto) (0.11-0.59) K/uL Eos # (Auto) (0-0.5) K/uL Baso # (Auto) (0-0.2) K/uL Toxic Granulation Platelet Estimate (Normal) Polychromasia Hypochromasia Poikilocytosis Anisocytosis Target Cells Ovalocytes Echinocytes PT (9.0-12.0) Seconds INR (0.9-1.1) ABG pH (7.35-7.45) ABG pCO2 (35-46) mmHg ABG pO2 (80-95) mm/Hg ABG HCO3 (19-24) mmol/L ABG O2 Saturation (90-95) % ABG Base Excess (-9-1.8) mEq/L Sergio Test (Pos) Barometric Pressure mm/Hg Oxygen Given Sodium (136-145) mmol/L Potassium (3.5-5.1) mmol/L Chloride (98-107) mmol/L Carbon Dioxide (21-32) mmol/L Anion Gap (3-11) BUN (7-18) mg/dl Creatinine (0.6-1.4) mg/dl Est Cr Clr Drug Dosing ml/min Est GFR ( Amer) Est GFR (Non-Af Amer) BUN/Creatinine Ratio (10-20) Glucose (70-99) mg/dl POC Glucose (70-99) Lactate (0.4-2.0) mmol/L Calcium (8.5-10.1) mg/dl Phosphorus 3.3 (2.5-4.9) mg/dl Magnesium (1.8-2.4) mg/dl Iron (35-175) mcg/dl TIBC (250-450) mcg/dl Transferrin (200-360) mg/dl Transferrin % Sat (20-50) % Ferritin (8-388) ng/ml Total Bilirubin (0.2-1) mg/dl Direct Bilirubin (0-0.2) mg/dl AST (15-37) U/L ALT (12-78) U/L Alkaline Phosphatase (45-117) U/L Ammonia (11-32) umol/L Troponin I (0-0.045) ng/ml Total Protein (6.4-8.2) gm/dl Albumin (3.4-5.0) gm/dl Globulin (2.5-4.0) gm/dl Albumin/Globulin Ratio (0.9-2) Vitamin B12 Folate TSH (0.300-4.500) uIu/ml Urine Color Urine Appearance (Clear) Urine pH (4.5-7.5) Ur Specific [place] (1.000-1.030) Urine Protein (Negative) Urine Glucose (UA) (Negative) Urine Ketones (Negative) Urine Blood (Negative) Urine Nitrite (Negative) Urine Bilirubin (Negative) Urine Urobilinogen (Negative) Ur Leukocyte Esterase (Negative) Urine Opiates Screen Neg (Neg) Ur Methadone, Qual Neg (Neg) Urine Barbiturates Neg (Neg) Ur Phencyclidine (PCP) Neg (Neg) U Amphetamin/Meth Scrn Neg (Neg) MDMA (Ecstasy) Screen Neg (Neg) U Benzodiazepines Scrn Neg (Neg) Ur Cocaine Metabolite Neg (Neg) U Marijuana (THC) Screen Pos H (Neg) U Marijuana THC Carboxy Pending Blood Type Antibody Screen Crossmatch 03/12/19 03/12/19 03/12/19 Range/Units 20:31 20:01 17:12 WBC (4.8-10.8) K/uL RBC (4.7-6.1) M/uL Hgb (14.0-18.0) g/dL Hct (42-52) % MCV (80-100) fL MCH (25-34) pg MCHC (32-36) g/dL RDW Std Deviation (36.4-46.3) fL RDW Coeff of Curt (11.5-14.5) % Plt Count (130-400) K/uL MPV (7.4-10.4) fL Immature Gran % (Auto) % Neut % (Auto) % Lymph % (Auto) % [place] % (Auto) % Eos % (Auto) % Baso % (Auto) % Immature Gran # (Auto) (0.00-0.02) K/uL Neut # (Auto) (1.4-6.5) K/uL Lymph # (Auto) (1.2-3.4) K/uL [place] # (Auto) (0.11-0.59) K/uL Eos # (Auto) (0-0.5) K/uL Baso # (Auto) (0-0.2) K/uL Toxic Granulation Platelet Estimate (Normal) Polychromasia Hypochromasia Poikilocytosis Anisocytosis Target Cells Ovalocytes Echinocytes PT (9.0-12.0) Seconds INR (0.9-1.1) ABG pH 7.49 H (7.35-7.45) ABG pCO2 31 L (35-46) mmHg ABG pO2 78 L (80-95) mm/Hg ABG HCO3 23 (19-24) mmol/L ABG O2 Saturation 94.1 (90-95) % ABG Base Excess -0.3 (-9-1.8) mEq/L Sergio Test POS (Pos) Barometric Pressure 727.4 mm/Hg Oxygen Given ROOM AIR Sodium (136-145) mmol/L Potassium (3.5-5.1) mmol/L Chloride (98-107) mmol/L Carbon Dioxide (21-32) mmol/L Anion Gap (3-11) BUN (7-18) mg/dl Creatinine (0.6-1.4) mg/dl Est Cr Clr Drug Dosing ml/min Est GFR ( Amer) Est GFR (Non-Af Amer) BUN/Creatinine Ratio (10-20) Glucose (70-99) mg/dl POC Glucose 93 (70-99) Lactate 2.1 H* (0.4-2.0) mmol/L Calcium (8.5-10.1) mg/dl Phosphorus (2.5-4.9) mg/dl Magnesium (1.8-2.4) mg/dl Iron (35-175) mcg/dl TIBC (250-450) mcg/dl Transferrin (200-360) mg/dl Transferrin % Sat (20-50) % Ferritin (8-388) ng/ml Total Bilirubin (0.2-1) mg/dl Direct Bilirubin (0-0.2) mg/dl AST (15-37) U/L ALT (12-78) U/L Alkaline Phosphatase (45-117) U/L Ammonia (11-32) umol/L Troponin I (0-0.045) ng/ml Total Protein (6.4-8.2) gm/dl Albumin (3.4-5.0) gm/dl Globulin (2.5-4.0) gm/dl Albumin/Globulin Ratio (0.9-2) Vitamin B12 Folate TSH (0.300-4.500) uIu/ml Urine Color Urine Appearance (Clear) Urine pH (4.5-7.5) Ur Specific [place] (1.000-1.030) Urine Protein (Negative) Urine Glucose (UA) (Negative) Urine Ketones (Negative) Urine Blood (Negative) Urine Nitrite (Negative) Urine Bilirubin (Negative) Urine Urobilinogen (Negative) Ur Leukocyte Esterase (Negative) Urine Opiates Screen (Neg) Ur Methadone, Qual (Neg) Urine Barbiturates (Neg) Ur Phencyclidine (PCP) (Neg) U Amphetamin/Meth Scrn (Neg) MDMA (Ecstasy) Screen (Neg) U Benzodiazepines Scrn (Neg) Ur Cocaine Metabolite (Neg) U Marijuana (THC) Screen (Neg) U Marijuana THC Carboxy Blood Type Antibody Screen Crossmatch 03/12/19 03/12/19 03/12/19 Range/Units 16:15 16:07 15:20 WBC (4.8-10.8) K/uL RBC (4.7-6.1) M/uL Hgb (14.0-18.0) g/dL Hct (42-52) % MCV (80-100) fL MCH (25-34) pg MCHC (32-36) g/dL RDW Std Deviation (36.4-46.3) fL RDW Coeff of Curt (11.5-14.5) % Plt Count (130-400) K/uL MPV (7.4-10.4) fL Immature Gran % (Auto) % Neut % (Auto) % Lymph % (Auto) % [place] % (Auto) % Eos % (Auto) % Baso % (Auto) % Immature Gran # (Auto) (0.00-0.02) K/uL Neut # (Auto) (1.4-6.5) K/uL Lymph # (Auto) (1.2-3.4) K/uL [place] # (Auto) (0.11-0.59) K/uL Eos # (Auto) (0-0.5) K/uL Baso # (Auto) (0-0.2) K/uL Toxic Granulation Platelet Estimate (Normal) Polychromasia Hypochromasia Poikilocytosis Anisocytosis Target Cells Ovalocytes Echinocytes PT (9.0-12.0) Seconds INR (0.9-1.1) ABG pH (7.35-7.45) ABG pCO2 (35-46) mmHg ABG pO2 (80-95) mm/Hg ABG HCO3 (19-24) mmol/L ABG O2 Saturation (90-95) % ABG Base Excess (-9-1.8) mEq/L Sergio Test (Pos) Barometric Pressure mm/Hg Oxygen Given Sodium 134 L (136-145) mmol/L Potassium 4.0 (3.5-5.1) mmol/L Chloride 101 (98-107) mmol/L Carbon Dioxide 27 (21-32) mmol/L Anion Gap 6.0 (3-11) BUN 39 H (7-18) mg/dl Creatinine 1.62 H (0.6-1.4) mg/dl Est Cr Clr Drug Dosing 44.4 ml/min Est GFR ( Amer) 50.5 Est GFR (Non-Af Amer) 43.6 BUN/Creatinine Ratio 24.1 H (10-20) Glucose 73 (70-99) mg/dl POC Glucose (70-99) Lactate (0.4-2.0) mmol/L Calcium 8.0 L (8.5-10.1) mg/dl Phosphorus (2.5-4.9) mg/dl Magnesium 2.1 (1.8-2.4) mg/dl Iron (35-175) mcg/dl TIBC (250-450) mcg/dl Transferrin (200-360) mg/dl Transferrin % Sat (20-50) % Ferritin (8-388) ng/ml Total Bilirubin 2.3 H (0.2-1) mg/dl Direct Bilirubin (0-0.2) mg/dl AST 53 H (15-37) U/L ALT 35 (12-78) U/L Alkaline Phosphatase 291 H (45-117) U/L Ammonia 20.3 (11-32) umol/L Troponin I < 0.015 (0-0.045) ng/ml Total Protein 5.8 L (6.4-8.2) gm/dl Albumin 2.1 L (3.4-5.0) gm/dl Globulin 3.7 (2.5-4.0) gm/dl Albumin/Globulin Ratio 0.6 L (0.9-2) Vitamin B12 Folate TSH 2.000 (0.300-4.500) uIu/ml Urine Color Yellow Urine Appearance Clear (Clear) Urine pH 5.0 (4.5-7.5) Ur Specific [place] 1.016 (1.000-1.030) Urine Protein Negative (Negative) Urine Glucose (UA) Negative (Negative) Urine Ketones Negative (Negative) Urine Blood Negative (Negative) Urine Nitrite Negative (Negative) Urine Bilirubin Negative (Negative) Urine Urobilinogen Negative (Negative) Ur Leukocyte Esterase Negative (Negative) Urine Opiates Screen (Neg) Ur Methadone, Qual (Neg) Urine Barbiturates (Neg) Ur Phencyclidine (PCP) (Neg) U Amphetamin/Meth Scrn (Neg) MDMA (Ecstasy) Screen (Neg) U Benzodiazepines Scrn (Neg) Ur Cocaine Metabolite (Neg) U Marijuana (THC) Screen (Neg) U Marijuana THC Carboxy Blood Type Antibody Screen Crossmatch 03/12/19 Range/Units 15:20 WBC 7.29 (4.8-10.8) K/uL RBC 3.56 L (4.7-6.1) M/uL Hgb 7.8 L (14.0-18.0) g/dL Hct 25.4 L (42-52) % MCV 71.3 L (80-100) fL MCH 21.9 L (25-34) pg MCHC 30.7 L (32-36) g/dL RDW Std Deviation 51.0 H (36.4-46.3) fL RDW Coeff of Curt 19.6 H (11.5-14.5) % Plt Count 124 L (130-400) K/uL MPV 8.9 (7.4-10.4) fL Immature Gran % (Auto) 0.7 % Neut % (Auto) 79.1 % Lymph % (Auto) 7.0 % [place] % (Auto) 12.1 % Eos % (Auto) 1.1 % Baso % (Auto) 0.0 % Immature Gran # (Auto) 0.05 H (0.00-0.02) K/uL Neut # (Auto) 5.77 (1.4-6.5) K/uL Lymph # (Auto) 0.51 L (1.2-3.4) K/uL [place] # (Auto) 0.88 H (0.11-0.59) K/uL Eos # (Auto) 0.08 (0-0.5) K/uL Baso # (Auto) 0.00 (0-0.2) K/uL Toxic Granulation Platelet Estimate (Normal) Polychromasia Hypochromasia Present Poikilocytosis Anisocytosis Target Cells Ovalocytes 1+ Echinocytes PT (9.0-12.0) Seconds INR (0.9-1.1) ABG pH (7.35-7.45) ABG pCO2 (35-46) mmHg ABG pO2 (80-95) mm/Hg ABG HCO3 (19-24) mmol/L ABG O2 Saturation (90-95) % ABG Base Excess (-9-1.8) mEq/L Sergio Test (Pos) Barometric Pressure mm/Hg Oxygen Given Sodium (136-145) mmol/L Potassium (3.5-5.1) mmol/L Chloride (98-107) mmol/L Carbon Dioxide (21-32) mmol/L Anion Gap (3-11) BUN (7-18) mg/dl Creatinine (0.6-1.4) mg/dl Est Cr Clr Drug Dosing ml/min Est GFR ( Amer) Est GFR (Non-Af Amer) BUN/Creatinine Ratio (10-20) Glucose (70-99) mg/dl POC Glucose (70-99) Lactate (0.4-2.0) mmol/L Calcium (8.5-10.1) mg/dl Phosphorus (2.5-4.9) mg/dl Magnesium (1.8-2.4) mg/dl Iron (35-175) mcg/dl TIBC (250-450) mcg/dl Transferrin (200-360) mg/dl Transferrin % Sat (20-50) % Ferritin (8-388) ng/ml Total Bilirubin (0.2-1) mg/dl Direct Bilirubin (0-0.2) mg/dl AST (15-37) U/L ALT (12-78) U/L Alkaline Phosphatase (45-117) U/L Ammonia (11-32) umol/L Troponin I (0-0.045) ng/ml Total Protein (6.4-8.2) gm/dl Albumin (3.4-5.0) gm/dl Globulin (2.5-4.0) gm/dl Albumin/Globulin Ratio (0.9-2) Vitamin B12 Folate TSH (0.300-4.500) uIu/ml Urine Color Urine Appearance (Clear) Urine pH (4.5-7.5) Ur Specific [place] (1.000-1.030) Urine Protein (Negative) Urine Glucose (UA) (Negative) Urine Ketones (Negative) Urine Blood (Negative) Urine Nitrite (Negative) Urine Bilirubin (Negative) Urine Urobilinogen (Negative) Ur Leukocyte Esterase (Negative) Urine Opiates Screen (Neg) Ur Methadone, Qual (Neg) Urine Barbiturates (Neg) Ur Phencyclidine (PCP) (Neg) U Amphetamin/Meth Scrn (Neg) MDMA (Ecstasy) Screen (Neg) U Benzodiazepines Scrn (Neg) Ur Cocaine Metabolite (Neg) U Marijuana (THC) Screen (Neg) U Marijuana THC Carboxy Blood Type Antibody Screen Crossmatch (1) DM type 2 (diabetes mellitus, type 2) Diabetes mellitus complication status: without complication Diabetes mellitus jail insulin use: with intermediate card tender use Qualified Code(s): E11.9 - Type 2 diabetes mellitus without complications; 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 (2) Hyperlipidemia Hyperlipidemia type: unspecified Qualified Code(s): E78.5 - Hyperlipidemia, unspecified (3) Cirrhosis Ascites presence: with ascites Hepatic cirrhosis type: alcoholic cirrhosis Qualified Code(s): K70.31 - Alcoholic cirrhosis of liver with ascites (4) Altered mental status Altered mental status type: unspecified Qualified Code(s): R41.82 - Altered mental status, unspecified (5) GERD (gastroesophageal reflux disease) Esophagitis presence: esophagitis presence not specified Qualified Code(s): K21.9 - Gastro-esophageal reflux disease without esophagitis (6) Hypertension Hypertension type: essential hypertension Qualified Code(s): I10 - Essential (primary) hypertension
[2019-03-13 10:49] LABS: Eosinophils # (auto) 0.05 K/uL (0-0.5); Eosinophils % (auto) 1.1 %; Hematocrit (blood only) 21.7 % (42-52); Hemoglobin 6.8 g/dL (14.0-18.0); Hypochromasia Present; Immature Granulocytes # (auto) 0.03 K/uL (0.00-0.02); Immature Granulocytes % (auto) 0.7 %; Lymphocytes # (auto) 0.27 K/uL (1.2-3.4); Lymphocytes % (auto) 6.2 %; Mean Corpuscular Hgb Conc 31.3 g/dL (32-36); Mean Corpuscular Volume 70.2 fL (80-100); Monocytes # (auto) 0.52 K/uL (0.11-0.59); Monocytes % (auto) 11.8 %; Neutrophils # (auto) 3.52 K/uL (1.4-6.5); Neutrophils % (auto) 80.2 %; Ovalocytes 1+; Platelet Count 77 K/uL (130-400); Platelet Estimate Decreased (Normal); Polychromasia 1+; RDW Coefficient of Variation 19.7 % (11.5-14.5); RDW Standard Deviation 50.4 fL (36.4-46.3); Red Blood Count 3.09 M/uL (4.7-6.1); Target Cells 1+; White Blood Count 4.39 K/uL (4.8-10.8)
[2019-03-13 11:02] LABS: Ferritin 110.3 ng/ml (8-388)
[2019-03-13 11:11] LABS: Vitamin B12 > 2000 pg/ml (211-911)
[2019-03-13 11:12] LABS: Folate (Folic Acid) > 24.00 ng/ml (>5.38)
[2019-03-13] MEDS ORDERED: SODIUM CHLORIDE 0.9% 250 ML IV PRN (12:21)
[2019-03-13] MEDS: HYDROCORTISONE SOD 50 MG in SYRINGE 0 ML IV SCH ×2 (12:39→20:08)
--- NOTE | 2019-03-13 14:08 | Ultrasound Report ---
PARACENTESIS UNDER ULTRASOUND GUIDANCE CLINICAL HISTORY: cirrhosis,suspect spontaneous bacterial peritonitis ASCITES COMPARISON STUDY: No previous studies for comparison. FINDINGS: The risks, benefits, and alternatives to the procedure were discussed with the patient. Arnav null informed consent was obtained. Following real-time ultrasound localization, the skin was prepped and draped. Following local anesthesia with Xylocaine, the sheath paracentesis needle was inserted a nd approximately 1.3 liters of straw-colored fluid was removed by vacuum suction. A left lower quadra nt approach was utilized. The patient tolerated the procedure well and left the department in satisfactory condition. IMPRESSION: Successful ultrasound-guided paracentesis with removal of approximately 1.3 liters of asc itic fluid. Electronically signed by: Ian Jones M.D. 03/13/2019 2:07 PM
[2019-03-13] MEDS: OXYCODONE HCL IR 5 MG TAB (IMMEDIATE RELEASE) PO PRN ×2 (14:44→22:47)
[2019-03-13 14:48] LABS: Albumin Peritoneal Fluid < 0.6 g/dl; Amylase Peritoneal Fluid 60 U/L; Glucose Peritoneal Fluid 51 mg/dl; LDH Peritoneal Fluid 100 U/L; Lipase Peritoneal Fluid 397 U/L; Triglyceride Peritoneal Fluid 61 mg/dl
[2019-03-13 15:20] LABS: Appearance Peritoneal Fluid HAZY; Color Peritoneal Fluid STRAW; Mononuclear WBC Peritoneal 9.2 %; Polynuclear WBC Peritoneal 90.8 %; RBC Peritoneal Fluid (A) 7000 /uL; WBC Peritoneal Fluid (A) 1973 /ul (0-300)
--- NOTE | 2019-03-13 16:41 | Consultation Report ---
DATE OF CONSULTATION: 03/13/2019 REASON FOR EVALUATION: Abdominal pain, anemia and cirrhosis. 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 The patient had a paracentesis on February 22 to remove excess fluid secondary to his cirrhosis. He presented to the hospital with a few day history of profound weakness, abdominal pain, altered mental status, nausea and vomiting. He underwent a diagnostic paracentesis today for possible spontaneous bacterial peritonitis and his white count returned at 1973 with 90% neutrophils, indicating spontaneous bacterial peritonitis. The Gram stain and culture are pending. He has been started empirically on Cipro. He is also anemic with a hemoglobin of 6.7 and is receiving blood at this time. He did have an EGD 2 years ago which showed some gastritis and portal hypertensive gastropathy, but has not had any overt signs of bleeding. His B12 and folate levels are normal. Currently on Xifaxan and lactulose for hepatic encephalopathy. He is on a baseline of 20 mg of prednisone for sarcoidosis. PAST MEDICAL HISTORY: Remarkable for cirrhosis, sarcoidosis, alcohol use, hypertension, diabetes, hyperlipidemia, acid reflux, sleep apnea, lumbar stenosis requiring multiple operations. He has ascites and hepatic encephalopathy. MEDICATIONS: Per list. ALLERGIES: CELECOXIB AND PENICILLIN. FAMILY HISTORY: Positive for his father having a heart attack. SOCIAL HISTORY: The patient is and lives with his . Former smoker, does not use alcohol currently, but did heavily in the past. PHYSICAL EXAMINATION: GENERAL: The patient is actually very sleepy having received pain medication recently. HEENT: Remarkable for exophthalmos. SKIN: Shows multiple ecchymoses. ABDOMEN: Shows a left lower quadrant abdominal wall hernia. Because of the sedation I do not appreciate any tenderness in his abdomen at this time. There is a bandage in the left lower quadrant from his paracentesis from earlier today. IMPRESSION: The patient has what appears to be spontaneous bacterial peritonitis. This is most commonly due to coliform bacteria and he is being treated empirically, until those results are available, with Cipro. He is also getting blood transfusion. We will continue his oral Xifaxan and lactulose for encephalopathy. Will continue to follow the patient during his hospital stay.
[2019-03-13] MEDS: CIPROFLOXACIN 400 MG/200 ML BAG IV SCH (18:23)
[2019-03-13] MEDS: PANTOprazole 40 MG TAB PO SCH (21:07)
[2019-03-13] MEDS: LORATADINE 10 MG TAB PO SCH (21:07)
[2019-03-13] MEDS: ATORVASTATIN 10 MG TAB PO SCH (21:07)
[2019-03-13] MEDS: ONDANSETRON INJ 2 MG/ML 2 ML VIAL IV PRN (22:47)
[2019-03-14] MEDS: CHECK FENTANYL PATCH PLACEMENT SCH ×3 (00:30→16:13)
[2019-03-14] MEDS: HYDROCORTISONE SOD 50 MG in SYRINGE 0 ML IV SCH ×3 (04:56→21:21)
[2019-03-14] MEDS: OXYCODONE HCL IR 5 MG TAB (IMMEDIATE RELEASE) PO PRN ×2 (04:56→11:54)
[2019-03-14] MEDS: CIPROFLOXACIN 400 MG/200 ML BAG IV SCH ×2 (06:21→17:45)
[2019-03-14] MEDS: ACETAMINOPHEN SOL 650 MG/20.3 ML UDC PO PRN ×2 (06:40→15:50)
[2019-03-14 07:17] LABS: Mean Corpuscular Hgb Conc 31.3 g/dL (32-36)
[2019-03-14 07:25] LABS: Hematocrit (blood only) 25.9 % (42-52); Hemoglobin 8.1 g/dL (14.0-18.0); INR 1.3 (0.9-1.1); Mean Corpuscular Volume 72.3 fL (80-100); Prothrombin Time 13.2 Seconds (9.0-12.0); RDW Coefficient of Variation 21.2 % (11.5-14.5); RDW Standard Deviation 55.9 fL (36.4-46.3); Red Blood Count 3.58 M/uL (4.7-6.1); White Blood Count 5.69 K/uL (4.8-10.8)
[2019-03-14 07:36] LABS: Mean Platelet Volume 9.1 fL (7.4-10.4); Platelet Count 101 K/uL (130-400)
[2019-03-14 07:42] LABS: Anisocytosis Present; Hypochromasia Present; Immature Granulocytes # (auto) 0.03 K/uL (0.00-0.02); Immature Granulocytes % (auto) 0.5 %; Lymphocytes % (auto) 5.3 %; Microcytosis Present; Monocytes # (auto) 0.31 K/uL (0.11-0.59); Monocytes % (auto) 5.4 %; Neutrophils # (auto) 5.05 K/uL (1.4-6.5); Neutrophils % (auto) 88.8 %; Polychromasia 1+; Toxic Granulation 1+
[2019-03-14 07:53] LABS: Albumin Level 2.2 gm/dl (3.4-5.0); BUN Creatinine Ratio 21.4 (10-20); Bilirubin Direct 1.7 mg/dl (0-0.2); Bilirubin,Total 2.4 mg/dl (0.2-1); Calcium 8.2 mg/dl (8.5-10.1); Creatinine Clr Calc Pharmacy 36.3 ml/min; Est GFR (African American) 39.6; Est GFR (Non-African American) 34.2; Potassium 5.2 mmol/L (3.5-5.1); Total Protein 5.6 gm/dl (6.4-8.2)
[2019-03-14] MEDS: ARTIFICIAL TEARS OP SCH ×2 (08:49→21:21)
[2019-03-14] MEDS: PANTOprazole 40 MG TAB PO SCH ×2 (08:49→21:22)
[2019-03-14] MEDS: POTASSIUM CHLORIDE 10 MEQ TABCR PO SCH (08:49)
[2019-03-14] MEDS: RIFAXIMIN 550 MG TABLET PO SCH ×2 (08:49→21:22)
[2019-03-14] MEDS: INSULIN ASPART 100 UNITS/ML 3 ML PEN SC SCH ×4 (08:49→21:12)
[2019-03-14] MEDS: FLUOXETINE HCL 20 MG CAP PO SCH (08:49)
[2019-03-14] MEDS: predniSONE 20 MG TAB PO SCH (08:49)
[2019-03-14] MEDS: PENTOXIFYLLINE 400MG EXT REL TAB PO SCH ×2 (08:49→21:23)
[2019-03-14] MEDS: LACTULOSE SYRUP 10 GM/15 ML BTL 473 ML PO SCH ×2 (08:49→21:21)
[2019-03-14] MEDS ORDERED: SODIUM POLYSTYRENE SULFONATE 15G/60ML SUSP PO ONE (11:15)
--- NOTE | 2019-03-14 11:51 | Nephrology Consultation ---
Date of Consultation March 14, 2019 Assessment & Plan (1) ARF (acute renal failure): -- LETTY likely related to SBP, intravascular volume contraction, anemia and relative hypotension -- Will place [place] catheter to accurately measure I&O's -- Will order renal US -- Urinalysis was negative for blood or protein -- Will check FeNa -- Will provide SPA 25 g IV q8 hours x 24 hours and administer 1 L 0.9NS IV at 100 cc/hr -- Monitor serial PRP (2) Acute bacterial peritonitis: -- On IV Cipro. Dose is currently appropriate for level of kidney function (3) Anemia: -- Agree w/ transfusion to maintain Hgb > 8.0 History of Present Illness Reason for Consultation: LETTY Attending Physician: Rita Mast MD History of Present Illness Mr. Santiago is a 64 year old white male who is seen at the request of Dr. Mast for evaluation of LETTY. Medical records in the EMR were reviewed today and are summarized as follows: Mr. Santiago has sarcoidosis requiring scout steroid therapy, cirrhosis related to sarcoidosis and alcohol use, AODM, HTN, hyperlipidemia, GERD, THUY and lumbar stenosis requiring several surgeries. Mr. Santiago's baseline creatinine has been 1.4. He has not required Nephrology evaluation in the past. Mr. Santiago has suffered from recurrent ascites and has required periodic paracentesis. His last procedure was 02/22/19. He did well until a few days ago. He presented to the ED w/ weakne ss, abdominal pain, N&V, and MS changes. Diagnostic paracentesis this am was c/w SBP. Mr. Santiago has been started on oral Cipro therapy. He was anemic at the time of admission and has been transfused one unit PRBC. Hgb has risen from 6.7 to 8.1. Mr. Santiago has been oliguric. Serum creatinine has risen from 1.4 to 1.9. Nephrology consultation is now requested to assess LETTY. Allergies Allergy/AdvReac Type Severity Reaction Status Date / Time celecoxib Allergy Intermediate HIVES Verified 03/12/19 19:07 Penicillins Allergy Intermediate HIVES Verified 03/12/19 19:07 Home Medications Home Medications Medication Instructions Recorded Confirmed Type acetaminophen 500 mg PO QID PRN 02/22/19 03/12/19 History albuterol sulfate 2 puff INHALATION Q6H PRN 02/22/19 03/12/19 History atorvastatin 10 mg PO HS 02/22/19 03/12/19 History carboxymethylcellulose sodium 1 dose OPHTHALMIC (EYE) BID 02/22/19 03/12/19 History [Refresh Celluvisc] fentanyl [Duragesic] 1 patch TRANSDERMAL Q72H 02/22/19 03/12/19 History fluoxetine 40 mg PO DAILY 02/22/19 03/12/19 History insulin glargine [Lantus U-100 15 unit SUBCUT BID 02/22/19 03/12/19 History Insulin] lactulose 1 dose PO BID 02/22/19 03/12/19 History mometasone 50 mcg INTRANASAL BID PRN 02/22/19 03/12/19 History multivitamin with minerals 1 tab PO DAILY 02/22/19 03/12/19 History pantoprazole 40 mg PO DAILY 02/22/19 03/12/19 History pentoxifylline 400 mg PO BID 02/22/19 03/12/19 History potassium chloride 10 meq PO BID 02/22/19 03/12/19 History prednisone 20 mg PO DAILY 02/22/19 03/12/19 History promethazine 25 mg PO Q6H PRN 02/22/19 03/12/19 History propranolol 5 mg PO QAM 02/22/19 03/12/19 History rifaximin [Xifaxan] 550 mg PO BID 02/22/19 03/12/19 History simethicone 80 - 160 mg PO BID PRN 02/22/19 03/12/19 History spironolactone 50 mg PO DAILY 02/22/19 03/12/19 History sulfamethoxazole-trimethoprim 1 tab PO 3XWK MDD m-w-f 02/22/19 03/12/19 History [Bactrim DS] furosemide 40 mg PO BID 02/26/19 03/12/19 History loratadine 10 mg PO HS 02/26/19 03/12/19 History Patient History Medical History Abdominal pain (Acute) Abscess in epidural space of lumbar spine (Acute) Altered mental status (Acute) Asthma (Acute) Diabetic autonomic neuropathy (Acute) Diarrhea (Acute) Fall in home (Acute) Fever (Acute) Fungemia (Acute) Fusion of spine (Acute) GERD (gastroesophageal reflux disease) (Acute) GI bleed (Acute) Gram negative septicemia (Acute) Hepatic encephalopathy (Acute) Hyperammonemia (Acute) Hyperlipidemia (Acute) Hypertension (Acute) Hypertension (Acute) Hypokalemia (Acute) Hypoxia (Acute) Immunocompromised (Acute) Infection of lumbar spine (Acute) Kidney stones (Acute) Lactic acidosis (Acute) Left leg cellulitis (Acute) Lumbar compression fracture (Acute) Lumbar disc herniation with radiculopathy (Acute) Lumbar stenosis with neurogenic claudication (Acute) Marijuana smoker (Acute) Meningitis (Acute) Obesity (Acute) Open wound of LLQ of abdominal wall w/o penentrat into periton cavity (Acute) Peritonitis (acute) generalized (Acute) Pneumonia (Acute) Post op infection (Acute) Sarcoidosis (Acute) Septal defect (Acute) Sleep apnea (Acute) Tenosynovitis, de Quervain (Acute) Thrombocytopenia (Acute) Vomiting (Acute) Alcoholic cirrhosis Surgical History History of carpal tunnel release (Acute) History of cataract surgery (Acute) History of herniorrhaphy (Acute) History of lithotripsy (Acute) History of repair of rotator cuff (Acute) Family History Father Heart attack Social History Preferred Language: Occitan Communication Ability: Effective Air Defense Specialist Required: No Beliefs That Will Affect Care: None marital status: Current Living Situation: Spouse Other Information That Helps Us Care for You: No Feels Safe at Home: Yes Safety Concerns: Feels Safe At This Time Smoking Status: Former smoker Do You Dip or Chew Tobacco: No Second Hand Exposure: No Hx Alcohol Use: No Hx Substance Use: No Review of Systems Constitutional: no fever Respiratory: no dyspnea Cardiovascular: no chest pain at rest Gastrointestinal: + abdominal pain and + vomiting; no diarrhea/loose stools Genitourinary: no dysuria and no urinary hesitancy Physical Exam Constitutional: + ill appearing Eyes: EOM intact bilaterally (mild scleral icterus, + exopthalmos) ENMT: Mouth: + dry oral mucous membranes Neck: trachea midline, no thyromegaly Respiratory: normal respiratory effort, lungs clear to auscultation Cardiovascular: RRR, no murmur, no edema Gastrointestinal (Abdomen): Inspection/Auscultation: + hypoactive bowel sounds Percussion/Palpation: + abdomen tender; no guarding Psychiatric: Orientation: alert, oriented to person and oriented to place Results & Data Vital Signs (Past 12 Hours) Vital Signs Temp Pulse Resp BP Pulse Ox 03/14/19 08:22 36.7 C 76 20 112/74 95 Laboratory Results Laboratory Tests 03/13/19 03/14/19 03/14/19 08:12 06:58 06:58 WBC 5.69 Hgb 6.7 L* 8.1 L Hct 25.9 L Plt Count 101 L Sodium 133 L Potassium 5.2 H D Chloride 102 Carbon Dioxide 23 BUN 42 H Creatinine 1.98 H D Glucose 129 H Laboratory Tests 03/12/19 03/14/19 16:15 06:58 INR 1.3 H Urine Color Yellow Urine Appearance Clear Urine pH 5.0 Ur Specific [place] 1.016 Urine Protein Negative Urine Glucose (UA) Negative Urine Blood Negative Urine Nitrite Negative Ur Leukocyte Esterase Negative Laboratory Tests 03/12/19 03/12/19 03/14/19 15:20 16:07 06:58 Total Bilirubin 2.4 H Direct Bilirubin 1.7 H AST 35 ALT 29 Alkaline Phosphatase 230 H Ammonia 20.3 Albumin 2.2 L TSH 2.000
[2019-03-14] MEDS ORDERED: SODIUM CHLORIDE 0.9% 1000ML 1,000 ML IV SCH (12:45)
--- NOTE | 2019-03-14 13:25 | Gastroenterology Progress Note ---
Date of Service March 14, 2019 Assessment & Plan (1) Acute bacterial peritonitis: SBP---continue abx, await cultures abd pain--most likely from SBP--continue abx LETTY ---appreciate renal consult confusion--from SBP --improved versus description in the chart anemia--incremented post transfusion--per patient no black nor bloody stools at home and per nurse today no stools today so no indication of active GI bleeding---monitor. Subjective cc f/u abd pain, SBP HPI Pt states has abd pain increases and decreases in intenisty now 04/29. He denies black or bloody stools at home or in the hospital Review of Systems Respiratory: no dyspnea Cardiovascular: Additional Comments: states can get chest pain at times but none currently Physical Exam Constitutional: WD/WN, vitals as above Respiratory: normal respiratory effort, lungs clear to auscultation Cardiovascular: Rate/Rhythm: regular rate Gastrointestinal (Abdomen): normal bowel sounds, soft, nontender, no hepatosplenomegaly subjectively has abd pain, abdomen is flat Skin: normal turgor warm and dry Psychiatric: A+Ox3, euthymic affect Results & Data Vital Signs (Past 12 Hours) Vital Signs Temp Pulse Resp BP Pulse Ox 03/14/19 08:22 36.7 C 76 20 112/74 95
[2019-03-14] MEDS: ALBUMIN 25% 50 ML IV SCH ×5 (13:53→22:19)
--- NOTE | 2019-03-14 15:39 | Ultrasound Report ---
RENAL ULTRASOUND HISTORY: Acute kidney injury. COMPARISON: Abdomen and pelvis CT 02/26/2019. FINDINGS: Right kidney: 11 cm. No hydronephrosis. Normal corticomedullary differentiation and mild cortical thi nning. Hypoechoic appearance to the renal sinus favors mild lipomatosis. Left kidney: 11.9 cm. No hydronephrosis. Normal corticomedullary differentiation and mild cortical th inning. Hypoechoic appearance to the renal sinus favors mild lipomatosis. Bladder: Decompressed by Verma catheter and not well visualized. IMPRESSION: No hydronephrosis. Mild bilateral cortical renal thinning. Mild renal sinus lipomatosis, unchanged. Electronically signed by: Joseph Beltrán M.D. 03/14/2019 3:38 PM
--- NOTE | 2019-03-14 16:33 | Hospitalist Progress Note ---
Date of Service March 14, 2019 Assessment & Plan (1) Nausea & vomiting: Possibly secondary to SBP as has presented this way previously with SBP. Ileus seen on KUB on admission Now resolved but still not moving bowels -Advance diet to full liquids until moving bowels more regularly and abdominal pain improving (2) Abdominal pain: secondary to SBP given cirrhosis, with 1973 WBCs with 90% polynuclear on peritoneal fluid has hernia but is reducible and not tender -has fluid collections left flank and left paracolic gutter regions on CT from 02/[address] 04/2018-unsure if loculated ascites? -also with moderate free intraperitoneal fluid on same CT from 02/22 -Now status post US-guided paracentesis on 03/13 for 1.3 L of fluid-consistent with infection -Now on day #2 of Cipro 400 mg IV every 12 hours for SBP -Follow-up on peritoneal fluid cytology, culture -Increase oxycodone to 10 mg p.o. every 6 hours as needed pain (3) Acute bacterial peritonitis: -Treatment as above (4) Microcytic anemia: Microcytic iron deficiency anemia associated with CKD stage 3 and liver disease Cannot rule out blood loss anemia from occult GI bleeding\\ Hgb lower the day after admission at 6.7 and may be somewhat hemodilutional given drop in all cell lines Baseline hgb around 7.5, severely microcytic last EGD 2016 with erosive gastritis, portal gastropathy, gastri cpolyps, esophageal Candidiasis as per GI notes Last colonoscopy 2014 with hemorrhoids, diverticulosis Also had a capsule endoscopy at that time with similar findings No obvious bleeding here or at home as per pt and his who saw his emesis Now status post 1 unit PRBCs transfused on 03/13, repeat hemoglobin today is improved to 8.1 -Follow hemoglobin and transfuse if drops below 8 Iron studies consistent with mixture of iron deficiency anemia and anemia of chronic disease-will need oral iron supplementation upon discharge but will hold off for now given constipation -GI consult-question if needs EGD this admission? -Follow-up Hemoccult stool when collected (5) Altered mental status: Acute metabolic encephalopathy due to cirrhosis of the liver due to alcohol and sarcoidosis Patient with one day of confusion/somnolence/weakness and fatigue prior to admission. Workup thus far with unremarkable CT head except chronic sinusitis. Stable hyponatremia Qz=079, CKD with BUN 39, Cr of 1.62 which is slightly worse than baseline upon admission. Mild increase in Tbili of 2.5 from 1.8. TSH WNL. VBG with respiratory alkalosis, no CO2 retention. Ammonia level normal. Patient is afebrile, hemodynamically stable, no leukocytosis. However, found to have SBP as above Also with +THC on UDS Encephalopathy now resolved with treatment of SBP -Blood cultures x 2 sets-NGTD, will follow -Frequent orientation -Monitor I/O, electrolytes (6) Cirrhosis: Patient with cirrhosis secondary to EtOH and sarcoidosis/side effects from multiple treatments used for sarcoidosis including Achtar (synthetic ACTH). NH3 level normal at 20 TBili and DBili, AST, Alk phos mildly elevated but improved today overall With SBP as above -Continuing with albumin today for LETTY -Continue holding Lasix and Spironolactone -Continue Rifaximin and Lactulose -Monitor electrolytes, renal function and LFTs -Hold propranolol for portal hypertension in the setting of SBP and consider discontinuing it indefinitely as can have worse outcomes with beta-blockers in the setting of SBP (7) Abrasion: Multiple skin abrasions from frequent falls -Consult wound care -Dressing changes (8) Ambulatory dysfunction: Patient with frequent falls at home. Has PT and OT at home presently. -PT/OT assessment. May benefit from inpatient rehab -Fall precautions (9) Steroid long-term use: Prednisone 20mg po daily for Sarcoidosis -Continue daily steroids -with borderline hypotension here--> continue stress-dose steroids with HC 50mg IV q8h in addition to prednisone 20mg daily (10) Sarcoidosis: Chronic, pulmonary, unresponsive to multiple drugs in the past including high dose steroids, Remicade, MTX, Acthar -Continue Steroids (11) DM type 2 (diabetes mellitus, type 2): Blood were previously low when he had minimal po intake. AIC=6.8 on 01/27/19 Now with hyperglycemia in the setting of stress test IV steroids and increased oral intake -Restart home Lantus 15 units twice daily -ISS -Continue to monitor (12) Hypertension: Blood pressure borderline low but now improved. reports patient runs in the low 100's at baseline -Holding propranolol as above -Holding diuretics as above -Continue stress dosed steroids (13) Hyperlipidemia: Chronic. -Continue Atorvastatin (14) GERD (gastroesophageal reflux disease): Chronic. -Continue Protonix and increased to bid in case of portal gastropathy or gastritis (15) Thrombocytopenia: plts down to 70 on admission likely from cirrhosis with hypersplenism and some hemodilution Now improved 100 -follow CBC (16) Sleep apnea: need to see if uses CPAP at home? (17) Lumbar stenosis with neurogenic claudication: continue chronic pain meds with Fentanyl patch -has had 7 surgeries on back with extensive fusions and rods, has compression fractures -Oxycodone as needed for breakthrough (18) Chronic sinusitis: seen on CT Head, pansinusitis, asymptomatic, with history of sinus surgery -needs ENT f/u as an outpatient (19) Aortic stenosis: Mild on echocardiogram from 2018 -Asymptomatic and preserved LVEF on that echo at that time -Follow as an outpatient (20) Mitral regurgitation: Mild-moderate on echo in 2018 -Follow as an outpatient (21) LETTY (acute kidney injury): Creatinine up to 1.98 today, likely secondary to prerenal azotemia from acute illness with SBP, poor p.o. intake, may be mild ATN from low blood pressures -Check fractional excretion of sodium Urinalysis is bland -Appreciate nephrology consultation-giving 1 L of normal saline along with 25% albumin 3 times daily -Follow BMP in the morning -With hyperkalemia mild as below (22) CKD stage 3 due to type 2 diabetes mellitus: Baseline creatinine around 1.4 -Avoid nephrotoxins -Renally dose medications (23) Hyperkalemia: Potassium 5.2 today secondary to acute kidney injury -Discontinue oral potassium supplement -Give Kayexalate 30 g p.o. x1 now -Follow BMP this afternoon -Change diet to low potassium (24) DVT prophylaxis: We will continue to hold chemical means due to severe anemia and possibility of occult GI bleed Add SCDs and JENIFER dionicionita Dispo-remain on medical floor Discussed care with at the bedside is his HCPOA/Advanced directives state he is a FULL CODE but does not want prolonged life saving measures if prognosis poor or in vegetative state following a resuscitation Subjective Patient reports still having diffuse abdominal pain and his usual chronic back pain. The 5 mg of oxycodone is not enough to control it for very long. He has not had a bowel movement today despite getting Kayexalate and lactulose. He was not making much urine and a Verma catheter was placed given acute kidney injury. He is still feeling "crappy" but his family is happy to see that he is much more awake and alert today. He denies chest pains or shortness of breath. Review of Systems Review of Systems: All systems reviewed & are unremarkable except as noted in HPI & below Physical Exam Constitutional: WD/WN, vitals as above (Much more alert and awake today) + ill appearing (chronically ill appearing) and + obese; no acute distress Eyes: PERRL, conjunctivae normal, anicteric sclerae (With bilateral proptosis) ENMT: external ear and nose normal, oropharynx normal Neck: trachea midline, no thyromegaly Respiratory: normal respiratory effort, lungs clear to auscultation Cardiovascular: Rate/Rhythm: regular rate and regular rhythm Heart Sounds: + murmur (2/6 at RUSB) Extremities: + edema (left foot and leg 1+ pitting edema chronic as per pt>right) Gastrointestinal (Abdomen): Inspection/Auscultation: + abdomen abnormal to inspection (very large LLQ hernia, reducible and nontender) Percussi on/Palpation: + abdomen tender (Mild and diffuse, improved from yesterday) and abdomen soft; abdomen not rigid Musculoskeletal: Extremities: extremities normal to inspection; no cyanosis and no clubbing Skin: no rashes, warm and dry + wound (multiple scabbed over lesions on all extremities) Neurologic: moves all extremities and awake; no focal motor deficits Psychiatric: A+Ox3, euthymic affect Results & Data Vital Signs (Past 12 Hours) Vital Signs Temp Pulse Resp BP Pulse Ox 03/14/19 16:00 36.6 C 84 20 107/66 99 03/14/19 15:23 36.5 C 83 20 122/72 99 03/14/19 14:36 36.6 C 82 18 115/75 96 03/14/19 13:54 36.7 C 80 18 95/58 L 98 03/14/19 08:22 36.7 C 76 20 112/74 95 Laboratory Results 03/14/19 03/14/19 03/14/19 Range/Units Unknown Unknown 16:28 WBC (4.8-10.8) K/uL RBC (4.7-6.1) M/uL Hgb (14.0-18.0) g/dL Hct (42-52) % MCV (80-100) fL MCH (25-34) pg MCHC (32-36) g/dL RDW Std Deviation (36.4-46.3) fL RDW Coeff of Curt (11.5-14.5) % Plt Count (130-400) K/uL MPV (7.4-10.4) fL Immature Gran % (Auto) % Neut % (Auto) % Lymph % (Auto) % [place] % (Auto) % Eos % (Auto) % Baso % (Auto) % Immature Gran # (Auto) (0.00-0.02) K/uL Neut # (Auto) (1.4-6.5) K/uL Lymph # (Auto) (1.2-3.4) K/uL [place] # (Auto) (0.11-0.59) K/uL Eos # (Auto) (0-0.5) K/uL Baso # (Auto) (0-0.2) K/uL Toxic Granulation Polychromasia Hypochromasia Anisocytosis Microcytosis PT (9.0-12.0) Seconds INR (0.9-1.1) Sodium Pending (136-145) mmol/L Potassium Pending (3.5-5.1) mmol/L Chloride Pending (98-107) mmol/L Carbon Dioxide Pending (21-32) mmol/L Anion Gap Pending (3-11) BUN Pending (7-18) mg/dl Creatinine Pending (0.6-1.4) mg/dl Est Cr Clr Drug Dosing Pending ml/min Est GFR ( Amer) Pending Est GFR (Non-Af Amer) Pending BUN/Creatinine Ratio Pending (10-20) Glucose Pending (70-99) mg/dl POC Glucose (70-99) Calcium Pending (8.5-10.1) mg/dl Total Bilirubin (0.2-1) mg/dl Direct Bilirubin (0-0.2) mg/dl AST (15-37) U/L ALT (12-78) U/L Alkaline Phosphatase (45-117) U/L Total Protein (6.4-8.2) gm/dl Albumin (3.4-5.0) gm/dl Ur Random Creatinine 51.9 mg/dl Ur Random Sodium 10 mmol/L Crossmatch 03/14/19 03/14/19 03/14/19 Range/Units 11:44 07:50 06:58 WBC 5.69 (4.8-10.8) K/uL RBC 3.58 L (4.7-6.1) M/uL Hgb 8.1 L (14.0-18.0) g/dL Hct 25.9 L (42-52) % MCV 72.3 L (80-100) fL MCH 22.6 L (25-34) pg MCHC 31.3 L (32-36) g/dL RDW Std Deviation 55.9 H (36.4-46.3) fL RDW Coeff of Curt 21.2 H (11.5-14.5) % Plt Count 101 L (130-400) K/uL MPV 9.1 (7.4-10.4) fL Immature Gran % (Auto) 0.5 % Neut % (Auto) 88.8 % Lymph % (Auto) 5.3 % [place] % (Auto) 5.4 % Eos % (Auto) 0.0 % Baso % (Auto) 0.0 % Immature Gran # (Auto) 0.03 H (0.00-0.02) K/uL Neut # (Auto) 5.05 (1.4-6.5) K/uL Lymph # (Auto) 0.30 L (1.2-3.4) K/uL [place] # (Auto) 0.31 (0.11-0.59) K/uL Eos # (Auto) 0.00 (0-0.5) K/uL Baso # (Auto) 0.00 (0-0.2) K/uL Toxic Granulation 1+ Polychromasia 1+ Hypochromasia Present Anisocytosis Present Microcytosis Present PT (9.0-12.0) Seconds INR (0.9-1.1) Sodium (136-145) mmol/L Potassium (3.5-5.1) mmol/L Chloride (98-107) mmol/L Carbon Dioxide (21-32) mmol/L Anion Gap (3-11) BUN (7-18) mg/dl Creatinine (0.6-1.4) mg/dl Est Cr Clr Drug Dosing ml/min Est GFR ( Amer) Est GFR (Non-Af Amer) BUN/Creatinine Ratio (10-20) Glucose (70-99) mg/dl POC Glucose 156 H 163 H (70-99) Calcium (8.5-10.1) mg/dl Total Bilirubin (0.2-1) mg/dl Direct Bilirubin (0-0.2) mg/dl AST (15-37) U/L ALT (12-78) U/L Alkaline Phosphatase (45-117) U/L Total Protein (6.4-8.2) gm/dl Albumin (3.4-5.0) gm/dl Ur Random Creatinine mg/dl Ur Random Sodium mmol/L Crossmatch 03/14/19 03/14/19 03/13/19 Range/Units 06:58 06:58 20:19 WBC (4.8-10.8) K/uL RBC (4.7-6.1) M/uL Hgb (14.0-18.0) g/dL Hct (42-52) % MCV (80-100) fL MCH (25-34) pg MCHC (32-36) g/dL RDW Std Deviation (36.4-46.3) fL RDW Coeff of Curt (11.5-14.5) % Plt Count (130-400) K/uL MPV (7.4-10.4) fL Immature Gran % (Auto) % Neut % (Auto) % Lymph % (Auto) % [place] % (Auto) % Eos % (Auto) % Baso % (Auto) % Immature Gran # (Auto) (0.00-0.02) K/uL Neut # (Auto) (1.4-6.5) K/uL Lymph # (Auto) (1.2-3.4) K/uL [place] # (Auto) (0.11-0.59) K/uL Eos # (Auto) (0-0.5) K/uL Baso # (Auto) (0-0.2) K/uL Toxic Granulation Polychromasia Hypochromasia Anisocytosis Microcytosis PT 13.2 H (9.0-12.0) Seconds INR 1.3 H (0.9-1.1) Sodium 133 L (136-145) mmol/L Potassium 5.2 H D (3.5-5.1) mmol/L Chloride 102 (98-107) mmol/L Carbon Dioxide 23 (21-32) mmol/L Anion Gap 8.0 (3-11) BUN 42 H (7-18) mg/dl Creatinine 1.98 H D (0.6-1.4) mg/dl Est Cr Clr Drug Dosing 36.3 ml/min Est GFR ( Amer) 39.6 Est GFR (Non-Af Amer) 34.2 BUN/Creatinine Ratio 21.4 H (10-20) Glucose 129 H (70-99) mg/dl POC Glucose 176 H (70-99) Calcium 8.2 L (8.5-10.1) mg/dl Total Bilirubin 2.4 H (0.2-1) mg/dl Direct Bilirubin 1.7 H (0-0.2) mg/dl AST 35 (15-37) U/L ALT 29 (12-78) U/L Alkaline Phosphatase 230 H (45-117) U/L Total Protein 5.6 L (6.4-8.2) gm/dl Albumin 2.2 L (3.4-5.0) gm/dl Ur Random Creatinine mg/dl Ur Random Sodium mmol/L Crossmatch 03/13/19 03/13/19 Range/Units 16:48 10:10 WBC (4.8-10.8) K/uL RBC (4.7-6.1) M/uL Hgb (14.0-18.0) g/dL Hct (42-52) % MCV (80-100) fL MCH (25-34) pg MCHC (32-36) g/dL RDW Std Deviation (36.4-46.3) fL RDW Coeff of Curt (11.5-14.5) % Plt Count (130-400) K/uL MPV (7.4-10.4) fL Immature Gran % (Auto) % Neut % (Auto) % Lymph % (Auto) % [place] % (Auto) % Eos % (Auto) % Baso % (Auto) % Immature Gran # (Auto) (0.00-0.02) K/uL Neut # (Auto) (1.4-6.5) K/uL Lymph # (Auto) (1.2-3.4) K/uL [place] # (Auto) (0.11-0.59) K/uL Eos # (Auto) (0-0.5) K/uL Baso # (Auto) (0-0.2) K/uL Toxic Granulation Polychromasia Hypochromasia Anisocytosis Microcytosis PT (9.0-12.0) Seconds INR (0.9-1.1) Sodium (136-145) mmol/L Potassium (3.5-5.1) mmol/L Chloride (98-107) mmol/L Carbon Dioxide (21-32) mmol/L Anion Gap (3-11) BUN (7-18) mg/dl Creatinine (0.6-1.4) mg/dl Est Cr Clr Drug Dosing ml/min Est GFR ( Amer) Est GFR (Non-Af Amer) BUN/Creatinine Ratio (10-20) Glucose (70-99) mg/dl POC Glucose 152 H (70-99) Calcium (8.5-10.1) mg/dl Total Bilirubin (0.2-1) mg/dl Direct Bilirubin (0-0.2) mg/dl AST (15-37) U/L ALT (12-78) U/L Alkaline Phosphatase (45-117) U/L Total Protein (6.4-8.2) gm/dl Albumin (3.4-5.0) gm/dl Ur Random Creatinine mg/dl Ur Random Sodium mmol/L Crossmatch See Detail (1) Altered mental status Altered mental status type: unspecified Qualified Code(s): R41.82 - Altered mental status, unspecified (2) Cirrhosis Hepatic cirrhosis type: alcoholic cirrhosis Ascites presence: with ascites Qualified Code(s): K70.31 - Alcoholic cirrhosis of liver with ascites (3) DM type 2 (diabetes mellitus, type 2) Diabetes mellitus supervisor rod placing insulin use: with supervisor rod placing use Diabetes mellitus complication status: without complication Qualified Code(s): E11.9 - Type 2 diabetes mellitus without complications; Z79.4 - senior care (current) use of insulin (4) Hypertension Hypertension type: essential hypertension Qualified Code(s): I10 - Essential (primary) hypertension (5) Hyperlipidemia Hyperlipidemia type: unspecified Qualified Code(s): E78.5 - Hyperlipidemia, unspecified (6) GERD (gastroesophageal reflux disease) Esophagitis presence: esophagitis presence not specified Qualified Code(s): K21.9 - Gastro-esophageal reflux disease without esophagitis
[2019-03-14 16:57] LABS: BUN Creatinine Ratio 20.1 (10-20); Calcium 8.2 mg/dl (8.5-10.1); Creatinine Clr Calc Pharmacy 33.5 ml/min; Est GFR (African American) 35.9; Est GFR (Non-African American) 30.9; Potassium 4.6 mmol/L (3.5-5.1)
[2019-03-14] MEDS: INSULIN GLARGINE SOLOSTAR 100 UNITS/ML 3 ML PEN SC SCH (21:13)
[2019-03-14] MEDS: LORATADINE 10 MG TAB PO SCH (21:22)
[2019-03-14] MEDS: ATORVASTATIN 10 MG TAB PO SCH (21:22)
[2019-03-15] MEDS: CHECK FENTANYL PATCH PLACEMENT SCH ×3 (00:13→17:18)
[2019-03-15] MEDS: OXYCODONE HCL IR 5 MG TAB (IMMEDIATE RELEASE) PO PRN ×2 (00:15→08:39)
[2019-03-15] MEDS: HYDROCORTISONE SOD 50 MG in SYRINGE 0 ML IV SCH (04:38)
[2019-03-15] MEDS: ALBUMIN 25% 50 ML IV SCH ×3 (04:46→06:50)
[2019-03-15 06:17] LABS: Hematocrit (blood only) 21.6 % (42-52); Mean Corpuscular Hgb Conc 32.4 g/dL (32-36); Mean Corpuscular Volume 72.5 fL (80-100); RDW Coefficient of Variation 21.4 % (11.5-14.5); RDW Standard Deviation 57.2 fL (36.4-46.3); Red Blood Count 2.98 M/uL (4.7-6.1); White Blood Count 4.32 K/uL (4.8-10.8)
[2019-03-15] MEDS ORDERED: Nursing to Pharmacy Communication ONE (06:25)
[2019-03-15 06:28] LABS: INR 1.4 (0.9-1.1); Prothrombin Time 13.7 Seconds (9.0-12.0)
[2019-03-15 06:44] LABS: Albumin Level 2.5 gm/dl (3.4-5.0); BUN Creatinine Ratio 20.8 (10-20); Bilirubin Direct 1.4 mg/dl (0-0.2); Calcium 8.1 mg/dl (8.5-10.1); Creatinine Clr Calc Pharmacy 41.3 ml/min; Est GFR (African American) 46.3; Potassium 4.3 mmol/L (3.5-5.1)
[2019-03-15 06:49] LABS: Total Protein 5.3 gm/dl (6.4-8.2)
[2019-03-15 06:56] LABS: Anisocytosis Present; Immature Granulocytes # (auto) 0.03 K/uL (0.00-0.02); Immature Granulocytes % (auto) 0.7 %; Lymphocytes # (auto) 0.19 K/uL (1.2-3.4); Lymphocytes % (auto) 4.4 %; Mean Platelet Volume 8.3 fL (7.4-10.4); Microcytosis Present; Monocytes # (auto) 0.33 K/uL (0.11-0.59); Monocytes % (auto) 7.6 %; Neutrophils # (auto) 3.77 K/uL (1.4-6.5); Neutrophils % (auto) 87.3 %; Platelet Count 62 K/uL (130-400); Platelet Estimate Decreased (Normal); Polychromasia 1+
[2019-03-15] MEDS: CIPROFLOXACIN 400 MG/200 ML BAG IV SCH ×2 (08:25→20:09)
[2019-03-15] MEDS: LACTULOSE SYRUP 10 GM/15 ML BTL 473 ML PO SCH (08:31)
[2019-03-15] MEDS: ARTIFICIAL TEARS OP SCH ×2 (08:31→20:09)
[2019-03-15] MEDS: ONDANSETRON INJ 2 MG/ML 2 ML VIAL IV PRN (08:33)
[2019-03-15] MEDS: predniSONE 20 MG TAB PO SCH (08:36)
[2019-03-15] MEDS: PENTOXIFYLLINE 400MG EXT REL TAB PO SCH ×2 (08:37→20:10)
[2019-03-15] MEDS: FLUOXETINE HCL 20 MG CAP PO SCH (08:37)
[2019-03-15] MEDS: PANTOprazole 40 MG TAB PO SCH ×2 (08:37→20:10)
[2019-03-15] MEDS: RIFAXIMIN 550 MG TABLET PO SCH ×2 (08:38→20:10)
[2019-03-15] MEDS: INSULIN ASPART 100 UNITS/ML 3 ML PEN SC SCH ×4 (09:22→21:04)
[2019-03-15] MEDS: INSULIN GLARGINE SOLOSTAR 100 UNITS/ML 3 ML PEN SC SCH ×2 (09:23→21:03)
[2019-03-15] MEDS: ACETAMINOPHEN SOL 650 MG/20.3 ML UDC PO PRN (09:29)
[2019-03-15] MEDS ORDERED: LACTULOSE SYRUP 20 GM/30 ML UDC PO ONE (10:00)
[2019-03-15] MEDS ORDERED: LACTULOSE SYRUP 20 GM/30 ML UDC PO SCH (10:00)
[2019-03-15] MEDS ORDERED: SODIUM CHLORIDE 0.9% 250 ML IV PRN (10:07)
[2019-03-15] MEDS ORDERED: OXYCODONE HCL IR 5 MG TAB (IMMEDIATE RELEASE) PO PRN (10:49)
--- NOTE | 2019-03-15 11:02 | Hospitalist Progress Note ---
Date of Service March 15, 2019 Assessment & Plan (1) Nausea & vomiting: Possibly secondary to SBP as has presented this way previously with SBP. Ileus seen on KUB on admission Now resolved and did move bowels but not enough -continue full liquids diet until moving bowels more regularly and abdominal pain improving (2) Abdominal pain: secondary to SBP given cirrhosis, with 1973 WBCs with 90% polynuclear on peritoneal fluid has hernia but is reducible and not tender -has fluid collections left flank and left paracolic gutter regions on CT from 02/[address] 04/2018-unsure if loculated ascites? -also with moderate free intraperitoneal fluid on same CT from 02/22 -Now status post US-guided paracentesis on 03/13 for 1.3 L of fluid-consistent with infection -continue on day #3 of Cipro 400 mg IV every 12 hours for SBP -Follow-up on peritoneal fluid cytology, culture-no growth thus far, cyto pending -decrease oxycodone back down to 5 mg p.o. every 4 hours as needed for pain due to constipation and increased lethargy (3) Acute bacterial peritonitis: -Treatment as above (4) Microcytic anemia: Microcytic iron deficiency anemia associated with CKD stage 3 and liver disease Cannot rule out blood loss anemia from occult GI bleeding-hemoccult not collected yet Hgb lower the day after admission at 6.7 and may be somewhat hemodilutional given drop in all cell lines Baseline hgb around 7.5, severely microcytic last EGD 2016 with erosive gastritis, portal gastropathy, gastri cpolyps, esophageal Candidiasis as per GI notes Last colonoscopy 2014 with hemorrhoids, diverticulosis Also had a capsule endoscopy at that time with similar findings No obvious bleeding here or at home as per pt and his who saw his emesis Now status post 1 unit PRBCs transfused on 03/13, repeat hemoglobinwas improved to 8.1, BUT NOW decreased again to 7.0 -transfuse 2 units PRBCs today and will d/w Nephro about giving IV lasix between units Iron studies consistent with mixture of iron deficiency anemia and anemia of chronic disease-will need oral iron supplementation upon discharge but will hold off for now given constipation -GI consult-question if needs EGD this admission? -Follow-up Hemoccult stool when collected (5) Altered mental status: Acute metabolic encephalopathy due to cirrhosis of the liver due to al cohol and sarcoidosis. With some component secondary to hepatic encephalopathy and secondary to opioid use Patient with one day of confusion/somnolence/weakness and fatigue prior to admission. Workup thus far with unremarkable CT head except chronic sinusitis. Stable hyponatremia Ly=946, CKD with BUN 39, Cr of 1.62 which is slightly worse than baseline upon admission. Mild increase in Tbili of 2.5 on admission, now improved to 2.0. TSH WNL. VBG with respiratory alkalosis, no CO2 retention. Ammonia level was normal at 20, now increased to 56 Patient is afebrile, hemodynamically stable, no leukocytosis. However, found to have SBP as above Also with +THC on UDS Encephalopathy had resolved with treatment of SBP, but now worse today again as above -increase lactulose to 20 gm bid--> give extra dose now -follow NH3 levels -decrease oxycodone back down to 5mg -continue treatment of the SBP (6) Cirrhosis: Patient with cirrhosis secondary to EtOH and sarcoidosis/side effects from multiple treatments used for sarcoidosis including Achtar (synthetic ACTH). NH3 level now elevated as above TBili and DBili, AST, Alk phos mildly elevated but improved further today, INR up a bit to 1.4 With SBP as above -received more albumin on 03/14 for LETTY -Continue holding Lasix and Spironolactone , but may give IV lasix todya with PRBCs -Continue Rifaximin and Lactulose -Monitor electrolytes, renal function and LFTs -continue holding propranolol for portal hypertension in the setting of SBP and consider discontinuing it indefinitely as can have worse outcomes with beta- blockers in the setting of SBP (7) Abrasion: Multiple skin abrasions from frequent falls -Consult wound care -Dressing changes (8) Ambulatory dysfunction: Patient with frequent falls at home. Has PT and OT at home presently. -PT/OT assessment. May benefit from inpatient rehab -Fall precautions (9) Steroid long-term use: Prednisone 20mg po daily for Sarcoidosis -Continue daily steroids -with borderline hypotension here--> continue stress-dose steroids but decrease to HC 25 mg IV q8h in addition to prednisone 20mg daily (10) Sarcoidosis: Chronic, pulmonary, unresponsive to multiple drugs in the past including high dose steroids, Remicade, MTX, Acthar -Continue Steroids (11) DM type 2 (diabetes mellitus, type 2): Blood were previously low when he had minimal po intake. AIC=6.8 on 01/27/19 Now with hyperglycemia in the setting of stress test IV steroids and increased oral intake. Sugars now improved with restarting Lantus -Continue Lantus 15 units twice daily -ISS -Continue to monitor (12) Hypertension: Blood pressure borderline low but now improved. reports patient runs in the low 100's at baseline -Holding propranolol as above -Holding diuretics as above -Continue stress dosed steroids but decreased to 25 mg every 8 as above (13) Hyperlipidemia: Chronic. -Continue Atorvastatin (14) GERD (gastroesophageal reflux disease): Chronic. -Continue Protonix and increased to bid in case of portal gastropathy or gastritis (15) Thrombocytopenia: plts down to 70 on admission likely from cirrhosis with hypersplenism and some hemodilution Had improved and now back down again 62, no evidence of bleeding -follow CBC (16) Sleep apnea: need to see if uses CPAP at home? (17) Lumbar stenosis with neurogenic claudication: continue chronic pain meds with Fentanyl patch -has had 7 surgeries on back with extensive fusions and rods, has compression fractures -Oxycodone as needed for breakthrough (18) Chronic sinusitis: seen on CT Head, pansinusitis, asymptomatic, with history of sinus surgery -needs ENT f/u as an outpatient (19) Aortic stenosis: Mild on echocardiogram from 2018 -Asymptomatic and preserved LVEF on that echo at that time -Follow as an outpatient (20) Mitral regurgitation: Mild-moderate on echo in 2018 -Follow as an outpatient (21) LETTY (acute kidney injury): Creatinine peaked at 2.15 and now improved to 1.74, likely secondary to prerenal azotemia from acute illness with SBP, poor p.o. intake, may be mild ATN from low blood pressures Urinalysis is bland -Appreciate nephrology consultation-now status post receiving 1 L of normal saline along with 25% albumin 3 times daily for 1 day Hyperkalemia now improved Now with some hyponatremia (22) CKD stage 3 due to type 2 diabetes mellitus: Baseline creatinine around 1.4 -Avoid nephrotoxins -Renally dose medications (23) Hyperkalemia: Potassium 5.2 secondary to acute kidney injury and oral potassium supplement Now resolved after receiving Kayexalate and holding potassium supplement, improvement of renal function -Continue to hold oral potassium supplement -Follow BMP daily -Continue low potassium diet (24) DVT prophylaxis: We will continue to hold chemical means due to severe anemia and possibility of occult GI bleed Add Shelly and JENIFER cuevas Dispo-remain on medical floor is his HCPOA/Advanced directives state he is a FULL CODE but does not want prolonged life saving measures if prognosis poor or in vegetative state following a resuscitation Subjective Pt still with abd pain but is improved from previous but "I wouldn't want any more." Is taking the oxycodone 10mg and is very tired. Only had one BM yesterday which was the only one since admission. Denies CP or OSB Review of Systems 2 Review of Systems: All systems reviewed & are unremarkable except as noted in HPI & below Physical Exam Constitutional: WD/WN, vitals as above (lethargic today but oriented) + ill appearing (chronically ill appearing) and + obese; no acute distress Eyes: PERRL, conjunctivae normal, anicteric sclerae (With bilateral proptosis) Neck: trachea midline, no thyromegaly Respiratory: normal respiratory effort, lungs clear to auscultation Cardiovascular: Rate/Rhythm: regular rate and regular rhythm Heart Sounds: + murmur (2/6 at RUSB) Extremities: + edema (left foot and leg 1+ pitting edema chronic as per pt>right) Gastrointestinal (Abdomen): Inspection/Auscultation: + abdomen abnormal to inspection (very large LLQ hernia, reducible and nontender) Percussion/Palpation: abdomen soft; abdomen nontender and abdomen not rigid Musculoskeletal: Extremities: extremities normal to inspection; no cyanosis and no clubbing Skin: no rashes, warm and dry + wound (multiple scabbed over lesions on all extremities) Neurologic: moves all extremities and awake (but drowsy); no focal motor deficits Psychiatric: Orientation: oriented to person, oriented to place, oriented to time and cooperative Genitourinary: Verma in place with medium yellow urine Results & Data Vital Signs (Past 12 Hours) Vital Signs Temp Pulse Resp BP Pulse Ox 03/15/19 07:16 37.5 C 102 H 18 110/65 96 03/15/19 04:44 37.0 C 90 16 122/71 95 03/15/19 00:07 36.3 C L 87 18 115/70 97 Laboratory Results 03/15/19 03/15/19 03/15/19 Range/Units 07:40 06:09 06:09 WBC (4.8-10.8) K/uL RBC (4.7-6.1) M/uL Hgb (14.0-18.0) g/dL Hct (42-52) % MCV (80-100) fL MCH (25-34) pg MCHC (32-36) g/dL RDW Std Deviation (36.4-46.3) fL RDW Coeff of Curt (11.5-14.5) % Plt Count (130-400) K/uL MPV (7.4-10.4) fL Immature Gran % (Auto) % Neut % (Auto) % Lymph % (Auto) % [place] % (Auto) % Eos % (Auto) % Baso % (Auto) % Immature Gran # (Auto) (0.00-0.02) K/uL Neut # (Auto) (1.4-6.5) K/uL Lymph # (Auto) (1.2-3.4) K/uL [place] # (Auto) (0.11-0.59) K/uL Eos # (Auto) (0-0.5) K/uL Baso # (Auto) (0-0.2) K/uL Platelet Estimate (Normal) Polychromasia Anisocytosis Microcytosis PT 13.7 H (9.0-12.0) Seconds INR 1.4 H (0.9-1.1) Sodium 131 L (136-145) mmol/L Potassium 4.3 (3.5-5.1) mmol/L Chloride 102 (98-107) mmol/L Carbon Dioxide 21 (21-32) mmol/L Anion Gap 8.0 (3-11) BUN 36 H (7-18) mg/dl Creatinine 1.74 H D (0.6-1.4) mg/dl Est Cr Clr Drug Dosing 41.3 ml/min Est GFR ( Amer) 46.3 Est GFR (Non-Af Amer) 40.0 BUN/Creatinine Ratio 20.8 H (10-20) Glucose 155 H (70-99) mg/dl POC Glucose 178 H (70-99) Calcium 8.1 L (8.5-10.1) mg/dl Total Bilirubin 2.0 H (0.2-1) mg/dl Direct Bilirubin 1.4 H (0-0.2) mg/dl AST 26 (15-37) U/L ALT 22 (12-78) U/L Alkaline Phosphatase 195 H (45-117) U/L Ammonia (11-32) umol/L Total Protein 5.3 L (6.4-8.2) gm/dl Albumin 2.5 L (3.4-5.0) gm/dl Ur Random Creatinine mg/dl Ur Random Sodium mmol/L Crossmatch 03/15/19 03/15/19 03/14/19 Range/Units 06:09 06:08 Unknown WBC 4.32 L (4.8-10.8) K/uL RBC 2.98 L (4.7-6.1) M/uL Hgb 7.0 L (14.0-18.0) g/dL Hct 21.6 L (42-52) % MCV 72.5 L (80-100) fL MCH 23.5 L (25-34) pg MCHC 32.4 (32-36) g/dL RDW Std Deviation 57.2 H (36.4-46.3) fL RDW Coeff of Curt 21.4 H (11.5-14.5) % Plt Count 62 L (130-400) K/uL MPV 8.3 (7.4-10.4) fL Immature Gran % (Auto) 0.7 % Neut % (Auto) 87.3 % Lymph % (Auto) 4.4 % [place] % (Auto) 7.6 % Eos % (Auto) 0.0 % Baso % (Auto) 0.0 % Immature Gran # (Auto) 0.03 H (0.00-0.02) K/uL Neut # (Auto) 3.77 (1.4-6.5) K/uL Lymph # (Auto) 0.19 L (1.2-3.4) K/uL [place] # (Auto) 0.33 (0.11-0.59) K/uL Eos # (Auto) 0.00 (0-0.5) K/uL Baso # (Auto) 0.00 (0-0.2) K/uL Platelet Estimate Decreased (Normal) Polychromasia 1+ Anisocytosis Present Microcytosis Present PT (9.0-12.0) Seconds INR (0.9-1.1) Sodium (136-145) mmol/L Potassium (3.5-5.1) mmol/L Chloride (98-107) mmol/L Carbon Dioxide (21-32) mmol/L Anion Gap (3-11) BUN (7-18) mg/dl Creatinine (0.6-1.4) mg/dl Est Cr Clr Drug Dosing ml/min Est GFR ( Amer) Est GFR (Non-Af Amer) BUN/Creatinine Ratio (10-20) Glucose (70-99) mg/dl POC Glucose (70-99) Calcium (8.5-10.1) mg/dl Total Bilirubin (0.2-1) mg/dl Direct Bilirubin (0-0.2) mg/dl AST (15-37) U/L ALT (12-78) U/L Alkaline Phosphatase (45-117) U/L Ammonia 56.4 H (11-32) umol/L Total Protein (6.4-8.2) gm/dl Albumin (3.4-5.0) gm/dl Ur Random Creatinine mg/dl Ur Random Sodium 10 mmol/L Crossmatch 03/14/19 03/14/19 03/14/19 Range/Units Unknown 20:05 16:36 WBC (4.8-10.8) K/uL RBC (4.7-6.1) M/uL Hgb (14.0-18.0) g/dL Hct (42-52) % MCV (80-100) fL MCH (25-34) pg MCHC (32-36) g/dL RDW Std Deviation (36.4-46.3) fL RDW Coeff of Curt (11.5-14.5) % Plt Count (130-400) K/uL MPV (7.4-10.4) fL Immature Gran % (Auto) % Neut % (Auto) % Lymph % (Auto) % [place] % (Auto) % Eos % (Auto) % Baso % (Auto) % Immature Gran # (Auto) (0.00-0.02) K/uL Neut # (Auto) (1.4-6.5) K/uL Lymph # (Auto) (1.2-3.4) K/uL [place] # (Auto) (0.11-0.59) K/uL Eos # (Auto) (0-0.5) K/uL Baso # (Auto) (0-0.2) K/uL Platelet Estimate (Normal) Polychromasia Anisocytosis Microcytosis PT (9.0-12.0) Seconds INR (0.9-1.1) Sodium (136-145) mmol/L Potassium (3.5-5.1) mmol/L Chloride (98-107) mmol/L Carbon Dioxide (21-32) mmol/L Anion Gap (3-11) BUN (7-18) mg/dl Creatinine (0.6-1.4) mg/dl Est Cr Clr Drug Dosing ml/min Est GFR ( Amer) Est GFR (Non-Af Amer) BUN/Creatinine Ratio (10-20) Glucose (70-99) mg/dl POC Glucose 263 H 225 H (70-99) Calcium (8.5-10.1) mg/dl Total Bilirubin (0.2-1) mg/dl Direct Bilirubin (0-0.2) mg/dl AST (15-37) U/L ALT (12-78) U/L Alkaline Phosphatase (45-117) U/L Ammonia (11-32) umol/L Total Protein (6.4-8.2) gm/dl Albumin (3.4-5.0) gm/dl Ur Random Creatinine 51.9 mg/dl Ur Random Sodium mmol/L Crossmatch 03/14/19 03/14/19 03/13/19 Range/Units 16:28 11:44 10:10 WBC (4.8-10.8) K/uL RBC (4.7-6.1) M/uL Hgb (14.0-18.0) g/dL Hct (42-52) % MCV (80-100) fL MCH (25-34) pg MCHC (32-36) g/dL RDW Std Deviation (36.4-46.3) fL RDW Coeff of Curt (11.5-14.5) % Plt Count (130-400) K/uL MPV (7.4-10.4) fL Immature Gran % (Auto) % Neut % (Auto) % Lymph % (Auto) % [place] % (Auto) % Eos % (Auto) % Baso % (Auto) % Immature Gran # (Auto) (0.00-0.02) K/uL Neut # (Auto) (1.4-6.5) K/uL Lymph # (Auto) (1.2-3.4) K/uL [place] # (Auto) (0.11-0.59) K/uL Eos # (Auto) (0-0.5) K/uL Baso # (Auto) (0-0.2) K/uL Platelet Estimate (Normal) Polychromasia Anisocytosis Microcytosis PT (9.0-12.0) Seconds INR (0.9-1.1) Sodium 134 L (136-145) mmol/L Potassium 4.6 (3.5-5.1) mmol/L Chloride 102 (98-107) mmol/L Carbon Dioxide 21 (21-32) mmol/L Anion Gap 11.0 (3-11) BUN 43 H (7-18) mg/dl Creatinine 2.15 H (0.6-1.4) mg/dl Est Cr Clr Drug Dosing 33.5 ml/min Est GFR ( Amer) 35.9 Est GFR (Non-Af Amer) 30.9 BUN/Creatinine Ratio 20.1 H (10-20) Glucose 190 H (70-99) mg/dl POC Glucose 156 H (70-99) Calcium 8.2 L (8.5-10.1) mg/dl Total Bilirubin (0.2-1) mg/dl Direct Bilirubin (0-0.2) mg/dl AST (15-37) U/L ALT (12-78) U/L Alkaline Phosphatase (45-117) U/L Ammonia (11-32) umol/L Total Protein (6.4-8.2) gm/dl Albumin (3.4-5.0) gm/dl Ur Random Creatinine mg/dl Ur Random Sodium mmol/L Crossmatch See Detail (1) DM type 2 (diabetes mellitus, type 2) Diabetes mellitus complication status: without complication Diabetes mellitus prison insulin use: with intermediate card tender use Qualified Code(s): E11.9 - Type 2 diabetes mellitus without complications; Z79.4 - intermediate card tender (current) use of insulin (2) Hyperlipidemia Hyperlipidemia type: unspecified Qualified Code(s): E78.5 - Hyperlipidemia, unspecified (3) Cirrhosis Ascites presence: with ascites Hepatic cirrhosis type: alcoholic cirrhosis Qualified Code(s): K70.31 - Alcoholic cirrhosis of liver with ascites (4) Altered mental status Altered mental status type: unspecified Qualified Code(s): R41.82 - Altered mental status, unspecified (5) GERD (gastroesophageal reflux disease) Esophagitis presence: esophagitis presence not specified Qualified Code(s): K21.9 - Gastro-esophageal reflux disease without esophagitis (6) Hypertension Hypertension type: essential hypertension Qualified Code(s): I10 - Essential (primary) hypertension
[2019-03-15] MEDS ORDERED: FUROSEMIDE 20 MG in SYRINGE 0 ML IV SCH (12:00)
--- NOTE | 2019-03-15 13:03 | Progress Note ---
DATE: 03/15/2019 RENAL PROGRESS NOTE SUBJECTIVE: Mr. Santiago says that he is not feeling particularly well. He says that his symptoms tend to come and go. He says sometimes he awakens in the morning and feels quite good and other times he feels poorly. Today apparently is not one of his better days, but he has no specific complaints. However, he does say that he has some minimal lower abdominal discomfort but the discomfort is not diffuse. He has a little appetite. However, he is not nauseated. He has not vomited. He says that he has moved his bowels. He has no chest pain or shortness of breath. His urine output is fair. At the time of his admission, he had a minimally elevated blood ammonia. He had obvious ascites. His ascites was tapped. He had a white count in his peritoneal fluid that was just an excess of 1000. It was predominantly polys. Cultures have been negative so far. Nonetheless, it has been presumed that he has spontaneous bacterial peritonitis and he has been treated with Cipro. His baseline renal function includes a serum creatinine of 1.4. A review of some of his old studies done do show a low urine sodium, which could be multifactorial, but could represent a hepatorenal syndrome, type 2. His hepatic failure is apparently due to a combination of hepatic sarcoidosis and a history of alcoholism. OBJECTIVE: GENERAL: On physical exam when seen by me, Mr. Santiago appears as a chronically ill gentleman of about his stated age of 64. He was awake and alert and oriented to time, place and person. VITAL SIGNS: His blood pressure is 110/65 with a pulse of 102 and regular. Respiratory rate is 18, his pulse ox is 96% on room air. He has a low-grade fever of 37.5 degrees centigrade. SKIN: Shows an essentially normal skin turgor. He has multiple lesions on his chest, which include leon hemangiomas and questionable spider hemangiomas. He has diffuse ecchymoses on his arms particularly, but also on his legs with some confluence of evidence of a chronic dermatitis. He has no palpable lymphadenopathy. HEAD: Normal. EYES: Grossly normal except for the fact that he does have a mild proptosis. Conjunctivae do not appear to be icteric. Extraocular movements are intact. His pupils are round and reactive to light. EARS, NOSE, MOUTH AND THROAT: Unremarkable. His oral mucous membranes are moist. NECK: Shows no jugular venous distention. He has no carotid bruit or thyromegaly. CHEST: Shows elevated hemidiaphragms. He has some diminished breath sounds at the bases, but I hear no wheezes, rales or rhonchi. CARDIAC: Shows a regular rhythm. He has a grade 2/6 systolic murmur at the base and along the upper sternal borders. ABDOMEN: Slightly distended. It is soft. He has some lower abdominal tenderness. Bowel sounds are active. I hear no abdominal bruits. I cannot palpate his liver or spleen. He has a left lower quadrant and inguinal hernia that does reduce. EXTREMITIES: Show no cyanosis or clubbing. He has trace lower extremity edema. Peripheral pulses are diminished. NEUROLOGIC: Shows no obvious lateralizing changes. I cannot note asterixis at the current time. Since admission, his urine output has been about 1300 mL. His intake exceeds his output by about 1.26 liters. PERTINENT LABORATORY WORK: At the current time shows a white count of 4320 with a shift to the left with 87.3 neutrophils. His hemoglobin is 7.0. His hematocrit is 21.6. His red cell indices are hypochromic and microcytic. His platelet count is 62,000. Clinical chemistries show a sodium of 131 mmol/L, potassium of 4.3 mmol/L, chloride of 102 mmol/L, and CO2 content of 21 mmol/L. His BUN is down to 36 and his creatinine is down to 1.74. Blood sugars vary today from 155-277. His serum calcium is 8.1. His total bilirubin 2.0 with a direct bilirubin of 1.4. His AST is 26 and his ALT is 22. His alkaline phosphatase is 195. His blood ammonia done today is 56.4. His total protein is 5.3 and his albumin is 2.5. On admission, his urine sodium was 10 and his urine creatinine 51.9. That would calculate for fractional excretion of sodium of 0.31%. ASSESSMENT AND PLAN: Mr. Santiago's renal function appears to be improved. He may have some degree of a chronic hepatorenal syndrome. Nonetheless, the problem is not acute. Treatment is simply supportive at this point. Would avoid the use of loop diuretics. Given his low serum albumin and chronic liver disease, once he is stable and his renal function has been maximized and unless he is significantly hyperkalemic, spironolactone may be a better diuretic to use. Otherwise, I would recommend continuing with his current therapy.
[2019-03-15] MEDS: HYDROCORTISONE SOD 25 MG in SYRINGE 0 ML IV SCH ×2 (15:31→21:03)
--- NOTE | 2019-03-15 16:46 | Progress Note ---
DATE: 03/15/2019 SUBJECTIVE: The patient reports less abdominal pain. He is getting his third unit of blood today for hemoglobin of 7. The patient reports no bowel movement today, and yesterday his bowel movement was brown. PHYSICAL EXAMINATION: VITAL SIGNS: Blood pressure 119/60, pulse 80, temperature is 36.4, room air saturation 97%. ABDOMEN: Shows some ecchymoses, but much less tender today than 2 days ago. IMPRESSION: The patient has spontaneous bacterial peritonitis. His ascites culture is still not showing any growth and Gram stain was negative. He is improving significantly on IV Cipro; however, which I would continue either IV or p.o. for a total of 14 days and then put him on a dose of maintenance Cipro at 500 mg a day indefinitely to prevent further recurrence. Dr. Osborne will be covering for the weekend.
[2019-03-15] MEDS: LACTULOSE SYRUP 20 GM/30 ML UDC PO SCH (20:09)
[2019-03-15] MEDS: LORATADINE 10 MG TAB PO SCH (20:09)
[2019-03-15] MEDS: ATORVASTATIN 10 MG TAB PO SCH (20:10)
[2019-03-15] MEDS: fentaNYL 25 MCG/HR TDSY TD SCH (21:02)
[2019-03-16] MEDS: CHECK FENTANYL PATCH PLACEMENT SCH ×3 (01:13→16:58)
[2019-03-16 05:41] LABS: Hematocrit (blood only) 27.2 % (42-52); Hemoglobin 8.7 g/dL (14.0-18.0); Mean Corpuscular Volume 74.5 fL (80-100); RDW Coefficient of Variation 20.4 % (11.5-14.5); RDW Standard Deviation 56.2 fL (36.4-46.3); Red Blood Count 3.65 M/uL (4.7-6.1); White Blood Count 3.68 K/uL (4.8-10.8)
[2019-03-16 05:47] LABS: INR 1.5 (0.9-1.1); Prothrombin Time 14.6 Seconds (9.0-12.0)
[2019-03-16 05:53] LABS: Albumin Level 2.4 gm/dl (3.4-5.0); BUN Creatinine Ratio 18.2 (10-20); Bilirubin Direct 1.4 mg/dl (0-0.2); Calcium 7.9 mg/dl (8.5-10.1); Creatinine Clr Calc Pharmacy 48.6 ml/min; Est GFR (African American) 56.3; Est GFR (Non-African American) 48.6; Potassium 3.7 mmol/L (3.5-5.1)
[2019-03-16 05:55] LABS: Bilirubin,Total 2.2 mg/dl (0.2-1); Total Protein 5.2 gm/dl (6.4-8.2)
[2019-03-16 05:59] LABS: Mean Platelet Volume 9.1 fL (7.4-10.4); Platelet Count 49 K/uL (130-400)
[2019-03-16] MEDS: CIPROFLOXACIN 400 MG/200 ML BAG IV SCH ×2 (06:16→18:39)
[2019-03-16] MEDS: HYDROCORTISONE SOD 25 MG in SYRINGE 0 ML IV SCH (06:16)
[2019-03-16 06:47] LABS: Anisocytosis Present; Hypochromasia Present; Immature Granulocytes # (auto) 0.01 K/uL (0.00-0.02); Immature Granulocytes % (auto) 0.3 %; Lymphocytes # (auto) 0.11 K/uL (1.2-3.4); Microcytosis Present; Monocytes # (auto) 0.31 K/uL (0.11-0.59); Monocytes % (auto) 8.4 %; Neutrophils # (auto) 3.25 K/uL (1.4-6.5); Neutrophils % (auto) 88.3 %; Ovalocytes 1+; Toxic Granulation 1+
[2019-03-16] MEDS: ARTIFICIAL TEARS OP SCH ×2 (08:19→21:29)
[2019-03-16] MEDS: LACTULOSE SYRUP 20 GM/30 ML UDC PO SCH ×2 (08:20→21:29)
[2019-03-16] MEDS: predniSONE 20 MG TAB PO SCH (08:22)
[2019-03-16] MEDS: PANTOprazole 40 MG TAB PO SCH ×2 (08:22→21:31)
[2019-03-16] MEDS: PENTOXIFYLLINE 400MG EXT REL TAB PO SCH ×2 (08:23→21:31)
[2019-03-16] MEDS: FLUOXETINE HCL 20 MG CAP PO SCH (08:23)
[2019-03-16] MEDS: RIFAXIMIN 550 MG TABLET PO SCH ×2 (08:24→21:31)
[2019-03-16] MEDS: INSULIN ASPART 100 UNITS/ML 3 ML PEN SC SCH ×4 (09:22→21:30)
[2019-03-16] MEDS: INSULIN GLARGINE SOLOSTAR 100 UNITS/ML 3 ML PEN SC SCH ×2 (09:23→21:29)
--- NOTE | 2019-03-16 11:42 | Nephrology Progress Note ---
Date of Service March 16, 2019 Assessment & Plan (1) ARF (acute renal failure): -- LETTY likely related to SBP, intravascular volume contraction, anemia and relative hypotension -- Urine studies consistent with some component or prerenal physiology or HRS -- Renal US did not demonstrate obstruction -- Volume status acceptable -- Electrolytes appropriate -- Non-oliguric -- Creatinine improving -- Hold additional IVF for now -- Defer diuretics at this time -- Document I/O's -- May remove Verma -- Repeat metabolic profile tomorrow AM (2) Acute bacterial peritonitis: -- On IV Cipro. Dose is currently appropriate for level of kidney function (3) Anemia: -- Agree w/ transfusion to maintain Hgb > 8.0 Subjective No acute events overnight. Denies pain. Breathing comfortably. Orlando was seen and evaluated with his sisters at the bedside. No fevers or chills. Appetite fair. Review of Systems Review of Systems: All systems reviewed & are unremarkable except as noted in HPI & below Physical Exam Constitutional: + ill appearing and + frail appearing Eyes: EOM intact bilaterally (mild scleral icterus, + exopthalmos) ENMT: Mouth: oral mucous membranes not dry Neck: trachea midline, no thyromegaly Respiratory: normal respiratory effort, lungs clear to auscultation Cardiovascular: RRR, no murmur, no edema Gastrointestinal (Abdomen): Inspection/Auscultation: + abdomen distended and + hypoactive bowel sounds Percussion/Palpation: + ascites; abdomen nontender and no guarding Skin: + turgor decreased and + jaundice; no rashes Neurologic: Motor/Sensory: no tremor and no asterixis Psychiatric: Orientation: alert, oriented to person and oriented to place Genitourinary: Verma draining clear yellow urine Results & Data Vital Signs (Past 12 Hours) Vital Signs Temp Pulse Resp BP Pulse Ox 03/16/19 07:24 36.2 C L 82 20 124/75 96 Laboratory Results Laboratory Results - last 24 hr 03/13/19 03/13/19 03/15/19 04:45 10:10 11:51 WBC RBC Hgb Hct MCV MCH MCHC RDW Std Deviation RDW Coeff of Curt Plt Count MPV Immature Gran % (Auto) Neut % (Auto) Lymph % (Auto) [place] % (Auto) Eos % (Auto) Baso % (Auto) Immature Gran # (Auto) Neut # (Auto) Lymph # (Auto) [place] # (Auto) Eos # (Auto) Baso # (Auto) Toxic Granulation Hypochromasia Anisocytosis Microcytosis Ovalocytes PT INR Sodium Potassium Chloride Carbon Dioxide Anion Gap BUN Creatinine Est Cr Clr Drug Dosing Est GFR ( Amer) Est GFR (Non-Af Amer) BUN/Creatinine Ratio Glucose POC Glucose 277 H Calcium Total Bilirubin Direct Bilirubin AST ALT Alkaline Phosphatase Ammonia Total Protein Albumin Stool Occult Bld Scrn U Marijuana THC Carboxy 45 A Blood Type O Positive Antibody Screen NEGATIVE Crossmatch See Detail 03/15/19 03/15/19 03/15/19 16:28 16:29 20:13 WBC RBC Hgb Hct MCV MCH MCHC RDW Std Deviation RDW Coeff of Curt Plt Count MPV Immature Gran % (Auto) Neut % (Auto) Lymph % (Auto) [place] % (Auto) Eos % (Auto) Baso % (Auto) Immature Gran # (Auto) Neut # (Auto) Lymph # (Auto) [place] # (Auto) Eos # (Auto) Baso # (Auto) Toxic Granulation Hypochromasia Anisocytosis Microcytosis Ovalocytes PT INR Sodium Potassium Chloride Carbon Dioxide Anion Gap BUN Creatinine Est Cr Clr Drug Dosing Est GFR ( Amer) Est GFR (Non-Af Amer) BUN/Creatinine Ratio Glucose POC Glucose 256 H 286 H 298 H Calcium Total Bilirubin Direct Bilirubin AST ALT Alkaline Phosphatase Ammonia Total Protein Albumin Stool Occult Bld Scrn U Marijuana THC Carboxy Blood Type Antibody Screen Crossmatch 03/16/19 03/16/19 03/16/19 05:20 05:20 05:20 WBC 3.68 L RBC 3.65 L Hgb 8.7 L Hct 27.2 L MCV 74.5 L MCH 23.8 L MCHC 32.0 RDW Std Deviation 56.2 H RDW Coeff of Curt 20.4 H Plt Count 49 L MPV 9.1 Immature Gran % (Auto) 0.3 Neut % (Auto) 88.3 Lymph % (Auto) 3.0 [place] % (Auto) 8.4 Eos % (Auto) 0.0 Baso % (Auto) 0.0 Immature Gran # (Auto) 0.01 Neut # (Auto) 3.25 Lymph # (Auto) 0.11 L [place] # (Auto) 0.31 Eos # (Auto) 0.00 Baso # (Auto) 0.00 Toxic Granulation 1+ Hypochromasia Present Anisocytosis Present Microcytosis Present Ovalocytes 1+ PT 14.6 H INR 1.5 H Sodium 136 Potassium 3.7 Chloride 106 Carbon Dioxide 24 Anion Gap 6.0 BUN 27 H Creatinine 1.48 H Est Cr Clr Drug Dosing 48.6 Est GFR ( Amer) 56.3 Est GFR (Non-Af Amer) 48.6 BUN/Creatinine Ratio 18.2 Glucose 173 H POC Glucose Calcium 7.9 L Total Bilirubin 2.2 H Direct Bilirubin 1.4 H AST 20 ALT 21 Alkaline Phosphatase 183 H Ammonia Total Protein 5.2 L Albumin 2.4 L Stool Occult Bld Scrn U Marijuana THC Carboxy Blood Type Antibody Screen Crossmatch 03/16/19 03/16/19 03/16/19 05:20 07:33 08:17 WBC RBC Hgb Hct MCV MCH MCHC RDW Std Deviation RDW Coeff of Curt Plt Count MPV Immature Gran % (Auto) Neut % (Auto) Lymph % (Auto) [place] % (Auto) Eos % (Auto) Baso % (Auto) Immature Gran # (Auto) Neut # (Auto) Lymph # (Auto) [place] # (Auto) Eos # (Auto) Baso # (Auto) Toxic Granulation Hypochromasia Anisocytosis Microcytosis Ovalocytes PT INR Sodium Potassium Chloride Carbon Dioxide Anion Gap BUN Creatinine Est Cr Clr Drug Dosing Est GFR ( Amer) Est GFR (Non-Af Amer) BUN/Creatinine Ratio Glucose POC Glucose 204 H Calcium Total Bilirubin Direct Bilirubin AST ALT Alkaline Phosphatase Ammonia 42.0 H Total Protein Albumin Stool Occult Bld Scrn Negative U Marijuana THC Carboxy Blood Type Antibody Screen Crossmatch
[2019-03-16] MEDS ORDERED: OXYCODONE HCL IR 5 MG TAB (IMMEDIATE RELEASE) PO PRN (13:24)
--- NOTE | 2019-03-16 13:25 | Hospitalist Progress Note ---
Date of Service March 16, 2019 Assessment & Plan (1) Nausea & vomiting: Possibly secondary to SBP as has presented this way previously with SBP. Ileus seen on KUB on admission Now resolved and moving bowels at least twice daily -advance diet to regular today (2) Abdominal pain: secondary to SBP given cirrhosis, with 1973 WBCs with 90% polynuclear on peritoneal fluid has hernia but is reducible and not tender -has fluid collections left flank and left paracolic gutter regions on CT from 02/[address] 04/2018-unsure if loculated ascites? -also with moderate free intraperitoneal fluid on same CT from 02/22 -Now status post US-guided paracentesis on 03/13 for 1.3 L of fluid-consistent with infection -continue on day #4 of Cipro 400 mg IV every 12 hours for SBP-complete 14 days and then convert to daily 500mg dose for prophylaxis -Follow-up on peritoneal fluid cytology, culture-no growth thus far, cyto negative for malignancy -decrease oxycodone againto 2.5 mg p.o. every 4 hours as needed for pain (3) Acute bacterial peritonitis: -Treatment as above (4) Microcytic anemia: Microcytic iron deficiency anemia associated with CKD stage 3 and liver di sease Hemoccult negative Hgb lower the day after admission at 6.7 and may be somewhat hemodilutional given drop in all cell lines Baseline hgb around 7.5, severely microcytic last EGD 2016 with erosive gastritis, portal gastropathy, gastric polyps, esophageal Candidiasis as per GI notes Last colonoscopy 2014 with hemorrhoids, diverticulosis Also had a capsule endoscopy at that time with similar findings No obvious bleeding here or at home as per pt and his who saw his emesis Now status post 1 unit PRBCs transfused on 03/13, and another 2 units given on 03/15 Iron studies consistent with mixture of iron deficiency anemia and anemia of chronic disease-will need oral iron supplementation upon discharge but will hold off for now given constipation -GI consult-question if needs EGD this admission? Discussed today and likely not as no melena and hemoccult negative (5) Altered mental status: Acute metabolic encephalopathy due to cirrhosis of the liver due to alcohol and sarcoidosis. With some component secondary to hepatic encephalopathy and secondary to opioid use Presented with confusion/somnolence/weakness and fatigue prior to admission secondary to SBP. Workup otherwise with CT head negative chronic sinusitis. Mild increase in Tbili of 2.5 on admission, now improved to 2.2 TSH WNL. VBG with respiratory alkalosis, no CO2 retention. Ammonia level was normal at 20,then increased to 56 and now back down to 42 with moving bowels more With +THC on UDS Encephalopathy had resolved initially with treatment of SBP, but now worse and waxing/waning the last 2 days possibly secondary to hepatic encephalopathy, constipation, and oxycodone use -continue increased dose of lactulose 20 gm bid -decrease oxycodone to 2.5mg and use sparingly -follow NH3 levels -continue treatment of the SBP (6) Cirrhosis: Patient with cirrhosis secondary to EtOH and sarcoidosis/side effects from multiple treatments used for sarcoidosis including Achtar (synthetic ACTH). NH3 level now elevated as above TBili and DBili, AST, Alk phos mildly elevated but improved further today, INR up a bit to 1.5, plts down again to 49 With SBP as above -received more albumin on 03/14 for LETTY -Continue holding Lasix and Spironolactone , but may give IV lasix todya with PRBCs -Continue Rifaximin and Lactulose -Monitor electrolytes, renal function and LFTs -continue holding propranolol for portal hypertension in the setting of SBP and consider discontinuing it indefinitely as can have worse outcomes with beta- blockers in the setting of SBP (7) Abrasion: Multiple skin abrasions from frequent falls -Consult wound care -Dressing changes (8) Ambulatory dysfunction: Patient with frequent falls at home. Has PT and OT at home presently. -PT/OT assessment. May benefit from inpatient rehab -Fall precautions (9) Steroid long-term use: Prednisone 20mg po daily for Sarcoidosis -Continue daily steroids -with borderline hypotension here which is now improved--> continue stress-dose steroids but decrease again to HC 12.5 mg IV q8h in addition to prednisone 20mg daily (10) Sarcoidosis: Chronic, pulmonary, unresponsive to multiple drugs in the past including high dose steroids, Remicade, MTX, Acthar -Continue Steroids (11) DM type 2 (diabetes mellitus, type 2): Blood were previously low when he had minimal po intake. AIC=6.8 on 01/27/19 Now with hyperglycemia in the setting of stress test IV steroids and increased oral intake. Sugars now improved with restarting Lantus but still high -increase Lantus to 18 units twice daily -ISS and tighten CF and CR -Continue to monitor (12) Hypertension: Blood pressure borderline low but now improved. reports patient runs in the low 100's at baseline -Holding propranolol as above -Holding diuretics as above -Continue stress dosed steroids but decreased to 12.5 mg every 8 as above (13) Hyperlipidemia: Chronic. -Continue Atorvastatin (14) GERD (gastroesophageal reflux disease): Chronic. -Continue Protonix and increased to bid in case of portal gastropathy or gastritis (15) Thrombocytopenia: plts down to 70 on admission likely from cirrhosis with hypersplenism and some hemodilution Lower today at 49, no evidence of bleeding -follow CBC (16) Sleep apnea: has CPAP at home but no longer uses as he states "I'm stubborn" (17) Lumbar stenosis with neurogenic claudication: continue chronic pain meds with Fentanyl patch -has had 7 surgeries on back with extensive fusions and rods, has compression fractures -Oxycodone as needed for breakthrough (18) Chronic sinusitis: seen on CT Head, pansinusitis, asymptomatic, with history of sinus surgery -needs ENT f/u as an outpatient (19) Aortic stenosis: Mild on echocardiogram from 2018 -Asymptomatic and preserved LVEF on that echo at that time -Follow as an outpatient (20) Mitral regurgitation: Mild-moderate on echo in 2018 -Follow as an outpatient (21) LETTY (acute kidney injury): Creatinine peaked at 2.15 and now improved to 1.48, likely was secondary to prerenal azotemia from acute illness with SBP, poor p.o. intake, may be mild ATN from low blood pressures Urinalysis is bland -Appreciate nephrology consultation-now status post receiving 1 L of normal saline along with 25% albumin 3 times daily for 1 day Hyperkalemia now improved -holding home diuretics-consider restarting aldactone soon (22) CKD stage 3 due to type 2 diabetes mellitus: Baseline creatinine around 1.4 -Avoid nephrotoxins -Renally dose medications (23) Hyperkalemia: Potassium 5.2 secondary to acute kidney injury and oral potassium supplement Now resolved after receiving Kayexalate and holding potassium supplement, improvement of renal function -Continue to hold oral potassium supplement -Follow BMP daily (24) DVT prophylaxis: We will continue to hold chemical means due to severe anemia and possibility of occult GI bleed continue SCDs and JENIFER cuevas Dispo-remain on medical floor is his HCPOA/Advanced directives state he is a FULL CODE but does not want prolonged life saving measures if prognosis poor or in vegetative state following a resuscitation Subjective RN reports pt was doing very well this AM and then when I saw him in the afternoon, he was confused and hallucinating-hearing voices and sounds in the room, talking about cat litter. Denies any abdominal pain now. Had some redness around the adhesive dressing on left abdomen from paracentesis and when asked if he has a sensitivity to adhesives, he said "yes, all of them except paper tape." Denies CP or SOB Discussed the case with GI Review of Systems Review of Systems: All systems reviewed & are unremarkable except as noted in HPI & below Physical Exam Constitutional: WD/WN, vitals as above (lethargic today but oriented) + ill appearing (chronically ill appearing) and + obese; no acute distress Eyes: PERRL, conjunctivae normal, anicteric sclerae (With bilateral proptosis) ENMT: external ear and nose normal, oropharynx normal Neck: trachea midline, no thyromegaly Respiratory: normal respiratory effort, lungs clear to auscultation Cardiovascular: Rate/Rhythm: regular rate and regular rhythm Heart Sounds: + murmur (2/6 at RUSB) Extremities: + edema (left foot and leg trace pitting edema chronic as per pt>right) Gastrointestinal (Abdomen): Inspection/Auscultation: + abdomen abnormal to inspection (very large LLQ hernia, reducible and nontender) Percussion/Palpation: abdomen soft; abdomen nontender and abdomen not rigid Musculoskeletal: Extremities: extremities normal to inspection; no cyanosis and no clubbing Skin: + wound (multiple scabbed over lesions on all extremities) and + erythema (mild on left flank around adhesive dressing at site of paracentesis) Neurologic: moves all extremities and + confused; no focal motor deficits Motor/Sensory: + asterixis (mild) Psychiatric: Orientation: oriented to person, oriented to place, oriented to time and cooperative; + not alert (drowsy at times) Results & Data Vital Signs (Past 12 Hours) Vital Signs Temp Pulse Resp BP Pulse Ox 03/16/19 07:24 36.2 C L 82 20 124/75 96 Laboratory Results 03/16/19 03/16/19 03/16/19 Range/Units 20:09 16:36 11:50 WBC (4.8-10.8) K/uL RBC (4.7-6.1) M/uL Hgb (14.0-18.0) g/dL Hct (42-52) % MCV (80-100) fL MCH (25-34) pg MCHC (32-36) g/dL RDW Std Deviation (36.4-46.3) fL RDW Coeff of Curt (11.5-14.5) % Plt Count (130-400) K/uL MPV (7.4-10.4) fL Immature Gran % (Auto) % Neut % (Auto) % Lymph % (Auto) % [place] % (Auto) % Eos % (Auto) % Baso % (Auto) % Immature Gran # (Auto) (0.00-0.02) K/uL Neut # (Auto) (1.4-6.5) K/uL Lymph # (Auto) (1.2-3.4) K/uL [place] # (Auto) (0.11-0.59) K/uL Eos # (Auto) (0-0.5) K/uL Baso # (Auto) (0-0.2) K/uL Toxic Granulation Hypochromasia Anisocytosis Microcytosis Ovalocytes PT (9.0-12.0) Seconds INR (0.9-1.1) Sodium (136-145) mmol/L Potassium (3.5-5.1) mmol/L Chloride (98-107) mmol/L Carbon Dioxide (21-32) mmol/L Anion Gap (3-11) BUN (7-18) mg/dl Creatinine (0.6-1.4) mg/dl Est Cr Clr Drug Dosing ml/min Est GFR ( Amer) Est GFR (Non-Af Amer) BUN/Creatinine Ratio (10-20) Glucose (70-99) mg/dl POC Glucose 185 H 146 H 198 H (70-99) Calcium (8.5-10.1) mg/dl Total Bilirubin (0.2-1) mg/dl Direct Bilirubin (0-0.2) mg/dl AST (15-37) U/L ALT (12-78) U/L Alkaline Phosphatase (45-117) U/L Ammonia (11-32) umol/L Total Protein (6.4-8.2) gm/dl Albumin (3.4-5.0) gm/dl Stool Occult Bld Scrn (Negative) 03/16/19 03/16/19 03/16/19 Range/Units 08:17 07:33 05:20 WBC (4.8-10.8) K/uL RBC (4.7-6.1) M/uL Hgb (14.0-18.0) g/dL Hct (42-52) % MCV (80-100) fL MCH (25-34) pg MCHC (32-36) g/dL RDW Std Deviation (36.4-46.3) fL RDW Coeff of Curt (11.5-14.5) % Plt Count (130-400) K/uL MPV (7.4-10.4) fL Immature Gran % (Auto) % Neut % (Auto) % Lymph % (Auto) % [place] % (Auto) % Eos % (Auto) % Baso % (Auto) % Immature Gran # (Auto) (0.00-0.02) K/uL Neut # (Auto) (1.4-6.5) K/uL Lymph # (Auto) (1.2-3.4) K/uL [place] # (Auto) (0.11-0.59) K/uL Eos # (Auto) (0-0.5) K/uL Baso # (Auto) (0-0.2) K/uL Toxic Granulation Hypochromasia Anisocytosis Microcytosis Ovalocytes PT (9.0-12.0) Seconds INR (0.9-1.1) Sodium (136-145) mmol/L Potassium (3.5-5.1) mmol/L Chloride (98-107) mmol/L Carbon Dioxide (21-32) mmol/L Anion Gap (3-11) BUN (7-18) mg/dl Creatinine (0.6-1.4) mg/dl Est Cr Clr Drug Dosing ml/min Est GFR ( Amer) Est GFR (Non-Af Amer) BUN/Creatinine Ratio (10-20) Glucose (70-99) mg/dl POC Glucose 204 H (70-99) Calcium (8.5-10.1) mg/dl Total Bilirubin (0.2-1) mg/dl Direct Bilirubin (0-0.2) mg/dl AST (15-37) U/L ALT (12-78) U/L Alkaline Phosphatase (45-117) U/L Ammonia 42.0 H (11-32) umol/L Total Protein (6.4-8.2) gm/dl Albumin (3.4-5.0) gm/dl Stool Occult Bld Scrn Negative (Negative) 03/16/19 03/16/19 03/16/19 Range/Units 05:20 05:20 05:20 WBC 3.68 L (4.8-10.8) K/uL RBC 3.65 L (4.7-6.1) M/uL Hgb 8.7 L (14.0-18.0) g/dL Hct 27.2 L (42-52) % MCV 74.5 L (80-100) fL MCH 23.8 L (25-34) pg MCHC 32.0 (32-36) g/dL RDW Std Deviation 56.2 H (36.4-46.3) fL RDW Coeff of Curt 20.4 H (11.5-14.5) % Plt Count 49 L (130-400) K/uL MPV 9.1 (7.4-10.4) fL Immature Gran % (Auto) 0.3 % Neut % (Auto) 88.3 % Lymph % (Auto) 3.0 % [place] % (Auto) 8.4 % Eos % (Auto) 0.0 % Baso % (Auto) 0.0 % Immature Gran # (Auto) 0.01 (0.00-0.02) K/uL Neut # (Auto) 3.25 (1.4-6.5) K/uL Lymph # (Auto) 0.11 L (1.2-3.4) K/uL [place] # (Auto) 0.31 (0.11-0.59) K/uL Eos # (Auto) 0.00 (0-0.5) K/uL Baso # (Auto) 0.00 (0-0.2) K/uL Toxic Granulation 1+ Hypochromasia Present Anisocytosis Present Microcytosis Present Ovalocytes 1+ PT 14.6 H (9.0-12.0) Seconds INR 1.5 H (0.9-1.1) Sodium 136 (136-145) mmol/L Potassium 3.7 (3.5-5.1) mmol/L Chloride 106 (98-107) mmol/L Carbon Dioxide 24 (21-32) mmol/L Anion Gap 6.0 (3-11) BUN 27 H (7-18) mg/dl Creatinine 1.48 H (0.6-1.4) mg/dl Est Cr Clr Drug Dosing 48.6 ml/min Est GFR ( Amer) 56.3 Est GFR (Non-Af Amer) 48.6 BUN/Creatinine Ratio 18.2 (10-20) Glucose 173 H (70-99) mg/dl POC Glucose (70-99) Calcium 7.9 L (8.5-10.1) mg/dl Total Bilirubin 2.2 H (0.2-1) mg/dl Direct Bilirubin 1.4 H (0-0.2) mg/dl AST 20 (15-37) U/L ALT 21 (12-78) U/L Alkaline Phosphatase 183 H (45-117) U/L Ammonia (11-32) umol/L Total Protein 5.2 L (6.4-8.2) gm/dl Albumin 2.4 L (3.4-5.0) gm/dl Stool Occult Bld Scrn (Negative) (1) DM type 2 (diabetes mellitus, type 2) Diabetes mellitus complication status: without complication Diabetes mellitus shelter insulin use: with ultimate hoops trainer use Qualified Code(s): E11.9 - Type 2 diabetes mellitus without complications; Z79.4 - assisted (current) use of insulin (2) Hyperlipidemia Hyperlipidemia type: unspecified Qualified Code(s): E78.5 - Hyperlipidemia, unspecified (3) Cirrhosis Ascites presence: with ascites Hepatic cirrhosis type: alcoholic cirrhosis Qualified Code(s): K70.31 - Alcoholic cirrhosis of liver with ascites (4) Altered mental status Altered mental status type: unspecified Qualified Code(s): R41.82 - Altered mental status, unspecified (5) GERD (gastroesophageal reflux disease) Esophagitis presence: esophagitis presence not specified Qualified Code(s): K21.9 - Gastro-esophageal reflux disease without esophagitis (6) Hypertension Hypertension type: essential hypertension Qualified Code(s): I10 - Essential (primary) hypertension
[2019-03-16] MEDS: HYDROCORTISONE SOD 12.5 MG in SYRINGE 0 ML IV SCH ×2 (14:01→21:32)
--- NOTE | 2019-03-16 15:54 | Gastroenterology Progress Note ---
Date of Service March 16, 2019 Assessment & Plan (1) Acute bacterial peritonitis: SBP---continue abx, cultures NGSF abd pain--most likely from SBP--continue abx---no abd pain on exam LETTY ---appreciate renal consult confusion--perhaps from SBP although clinically that is better, ammonia level only 42 today so SBP seems less likely anemia-stools are not black nor bloody so doubt GI active GI bleeding-monitor. Subjective cc f/u SBP HPI with patient today. Per patient is sleepy and in and out of coherence today. Cannot seem to pin patient down as to his level of pain today. Per nursing had small brown/yellow liquid stool today. Review of Systems Review of Systems: Unobtainable due to cognitive status Physical Exam Constitutional: WD/WN, vitals as above Respiratory: normal respiratory effort, lungs clear to auscultation Cardiovascular: Rate/Rhythm: regular rate Gastrointestinal (Abdomen): normal bowel sounds, soft, nontender, no hepatosplenomegaly Skin: normal turgor Psychiatric: A+Ox3, euthymic affect Results & Data Vital Signs (Past 12 Hours) Vital Signs Temp Pulse Resp BP BP Pulse Ox 03/16/19 15:08 36.6 C 88 20 125/74 98 03/16/19 07:24 36.2 C L 82 20 124/75 96
[2019-03-16] MEDS: LORATADINE 10 MG TAB PO SCH (21:29)
[2019-03-16] MEDS: ATORVASTATIN 10 MG TAB PO SCH (21:30)
[2019-03-17] MEDS: CHECK FENTANYL PATCH PLACEMENT SCH ×4 (01:02→23:11)
[2019-03-17] MEDS: HYDROCORTISONE SOD 12.5 MG in SYRINGE 0 ML IV SCH (06:08)
[2019-03-17] MEDS: CIPROFLOXACIN 400 MG/200 ML BAG IV SCH ×2 (06:43→18:38)
[2019-03-17 06:46] LABS: Mean Corpuscular Hgb Conc 32.4 g/dL (32-36)
[2019-03-17 06:54] LABS: INR 1.5 (0.9-1.1); Prothrombin Time 14.9 Seconds (9.0-12.0)
[2019-03-17 07:24] LABS: Albumin Globulin Ratio 0.8 (0.9-2); Albumin Level 2.5 gm/dl (3.4-5.0); BUN Creatinine Ratio 16.4 (10-20); Bilirubin,Total 3.1 mg/dl (0.2-1); Calcium 8.4 mg/dl (8.5-10.1); Est GFR (African American) 69.8; Est GFR (Non-African American) 60.2; Globulin 3.1 gm/dl (2.5-4.0); Hematocrit (blood only) 30.9 % (42-52); Mean Corpuscular Volume 74.8 fL (80-100); Potassium 3.8 mmol/L (3.5-5.1); RDW Coefficient of Variation 20.7 % (11.5-14.5); RDW Standard Deviation 56.5 fL (36.4-46.3); Red Blood Count 4.13 M/uL (4.7-6.1); Total Protein 5.6 gm/dl (6.4-8.2)
[2019-03-17 07:29] LABS: Platelet Count 52 K/uL (130-400)
[2019-03-17 07:30] LABS: Basophilic Stippling 1+; Echinocytes 2+; Hypochromasia Present; Immature Granulocytes # (auto) 0.03 K/uL (0.00-0.02); Immature Granulocytes % (auto) 0.5 %; Lymphocytes # (auto) 0.16 K/uL (1.2-3.4); Lymphocytes % (auto) 2.7 %; Monocytes # (auto) 0.31 K/uL (0.11-0.59); Monocytes % (auto) 5.2 %; Neutrophils % (auto) 91.6 %; Platelet Estimate Decreased (Normal); Toxic Granulation 2+
[2019-03-17] MEDS: ARTIFICIAL TEARS OP SCH ×2 (08:22→21:23)
[2019-03-17] MEDS: LACTULOSE SYRUP 20 GM/30 ML UDC PO SCH ×2 (08:23→21:24)
[2019-03-17] MEDS: predniSONE 20 MG TAB PO SCH (08:24)
[2019-03-17] MEDS: FLUOXETINE HCL 20 MG CAP PO SCH (08:25)
[2019-03-17] MEDS: PANTOprazole 40 MG TAB PO SCH ×2 (08:25→21:28)
[2019-03-17] MEDS: PENTOXIFYLLINE 400MG EXT REL TAB PO SCH ×2 (08:25→21:28)
[2019-03-17] MEDS: RIFAXIMIN 550 MG TABLET PO SCH ×2 (08:26→21:28)
[2019-03-17] MEDS: INSULIN ASPART 100 UNITS/ML 3 ML PEN SC SCH ×4 (09:42→21:25)
[2019-03-17] MEDS: INSULIN GLARGINE SOLOSTAR 100 UNITS/ML 3 ML PEN SC SCH ×2 (09:43→21:24)
[2019-03-17] MEDS: SPIRONOLACTONE 25 MG TAB PO SCH (11:19)
--- NOTE | 2019-03-17 12:01 | Nephrology Progress Note ---
Date of Service March 17, 2019 Assessment & Plan (1) ARF (acute renal failure): -- LETTY likely related to SBP, intravascular volume contraction, anemia and relative hypotension -- Urine studies consistent with some component or prerenal physiology or HRS -- Renal US did not demonstrate obstruction -- Volume status acceptable -- Restart spironolactone 50 mg daily -- May restart low dose loop diuretic as needed -- Electrolytes appropriate -- Non-oliguric -- Creatinine improved -- Document I/O's -- Repeat metabolic profile tomorrow AM (2) Acute bacterial peritonitis: -- On IV Cipro. Dose is currently appropriate for level of kidney function -- Unclear etiology of left lower quadrant abdominal tenderness. Abdominal CT requested for additional evaluation -- Culture negative SBP (3) Anemia: -- Agree w/ transfusion to maintain Hgb > 8.0 (4) Gross hematuria: -- Requested Verma to be replaced until bleeding resolved -- May manually irrigate as needed Subjective Mental status has been waxing and waning per report. Several loose stool yesterday. No BM today. No fevers or chills. [place] continues to experience increasing left sided abdominal pain. There is noted tenderness in the lower quadrant. He has had bleeding since removal of Verma catheter. Bright red blood is leaking from urethral meatus. He has voided without difficulty. Review of Systems Review of Systems: All systems reviewed & are unremarkable except as noted in HPI & below Physical Exam Constitutional: + ill appearing and + frail appearing Eyes: EOM intact bilaterally (mild scleral icterus, + exopthalmos) ENMT: Mouth: oral mucous membranes not dry Neck: trachea midline, no thyromegaly Respiratory: normal respiratory effort, lungs clear to auscultation Cardiovascular: RRR, no murmur, no edema Gastrointestinal (Abdomen): Inspection/Auscultation: + abdomen distended Percussion/Palpation: + abdomen tender and abdomen soft; no guarding large hernia non tender Skin: + turgor decreased and + jaundice; no rashes Neurologic: Motor/Sensory: no tremor and no asterixis Psychiatric: Orientation: alert, oriented to person and oriented to place Results & Data Vital Signs (Past 12 Hours) Vital Signs Temp Pulse Resp BP Pulse Ox 03/17/19 07:41 36.3 C L 79 20 121/75 99 Laboratory Results Laboratory Results - last 24 hr 03/16/19 03/16/19 03/16/19 11:50 16:36 20:09 WBC RBC Hgb Hct MCV MCH MCHC RDW Std Deviation RDW Coeff of Curt Plt Count Immature Gran % (Auto) Neut % (Auto) Lymph % (Auto) [place] % (Auto) Eos % (Auto) Baso % (Auto) Immature Gran # (Auto) Neut # (Auto) Lymph # (Auto) [place] # (Auto) Eos # (Auto) Baso # (Auto) Toxic Granulation Platelet Estimate Hypochromasia Basophilic Stippling Echinocytes PT INR Sodium Potassium Chloride Carbon Dioxide Anion Gap BUN Creatinine Est Cr Clr Drug Dosing Est GFR ( Amer) Est GFR (Non-Af Amer) BUN/Creatinine Ratio Glucose POC Glucose 198 H 146 H 185 H Calcium Total Bilirubin AST ALT Alkaline Phosphatase Ammonia Total Protein Albumin Globulin Albumin/Globulin Ratio 03/17/19 03/17/19 03/17/19 06:37 06:37 06:37 WBC 6.00 RBC 4.13 L Hgb 10.0 L Hct 30.9 L MCV 74.8 L MCH 24.2 L MCHC 32.4 RDW Std Deviation 56.5 H RDW Coeff of Curt 20.7 H Plt Count 52 L Immature Gran % (Auto) 0.5 Neut % (Auto) 91.6 Lymph % (Auto) 2.7 [place] % (Auto) 5.2 Eos % (Auto) 0.0 Baso % (Auto) 0.0 Immature Gran # (Auto) 0.03 H Neut # (Auto) 5.50 Lymph # (Auto) 0.16 L [place] # (Auto) 0.31 Eos # (Auto) 0.00 Baso # (Auto) 0.00 Toxic Granulation 2+ Platelet Estimate Decreased Hypochromasia Present Basophilic Stippling 1+ Echinocytes 2+ PT INR Sodium 133 L Potassium 3.8 Chloride 103 Carbon Dioxide 23 Anion Gap 7.0 BUN 20 H Creatinine 1.24 Est Cr Clr Drug Dosing 56.0 Est GFR ( Amer) 69.8 Est GFR (Non-Af Amer) 60.2 BUN/Creatinine Ratio 16.4 Glucose 118 H POC Glucose Calcium 8.4 L Total Bilirubin 3.1 H AST 30 ALT 22 Alkaline Phosphatase 225 H Ammonia 44.9 H Total Protein 5.6 L Albumin 2.5 L Globulin 3.1 Albumin/Globulin Ratio 0.8 L 04/28/19 04/28/19 04/28/19 06:37 08:00 11:31 WBC RBC Hgb Hct MCV MCH MCHC RDW Std Deviation RDW Coeff of Curt Plt Count Immature Gran % (Auto) Neut % (Auto) Lymph % (Auto) [place] % (Auto) Eos % (Auto) Baso % (Auto) Immature Gran # (Auto) Neut # (Auto) Lymph # (Auto) [place] # (Auto) Eos # (Auto) Baso # (Auto) Toxic Granulation Platelet Estimate Hypochromasia Basophilic Stippling Echinocytes PT 14.9 H INR 1.5 H Sodium Potassium Chloride Carbon Dioxide Anion Gap BUN Creatinine Est Cr Clr Drug Dosing Est GFR ( Amer) Est GFR (Non-Af Amer) BUN/Creatinine Ratio Glucose POC Glucose 141 H 169 H Calcium Total Bilirubin AST ALT Alkaline Phosphatase Ammonia Total Protein Albumin Globulin Albumin/Globulin Ratio
--- NOTE | 2019-03-17 12:23 | Urology Consultation ---
Date of Consultation March 17, 2019 Assessment & Plan (1) Gross hematuria: A/P 64 yo male with gross hematuria s/p salinas removal. Salinas ordered replaced - reasonable, I suspect bladder urine to be clear and prostate / urethral to be the source of bleeding. Can leave salinas in place a few days to allow for tamponade and surveillance of urine. Hand irrigation PRN clots or obstruction. Will plan on outpatient cystoscopy to evaluate bladder anatomy - renal US results reviewed with patient. I suspect his hepatic dysfunction to be a significant contributor to his bleeding issues. Patient vocalizes understanding of the treatment plan. Thank you for allowing us to participate in this patient's acute care. Will monitor. History of Present Illness Reason for Consultation: Gross hematuria. Attending Physician: Rita Mast MD History of Present Illness 64 yo male admitted due to renal failure, ascites, Cr normalized noted to have gross hematuria and urethral bleeding after salinas removal yesterday. Salinas was in place due to renal insufficiency, ordered replaced. He is noted to have blood at meatus, per nursing staff his stream is clear with terminal hematuria and dribbling. He notes poor voiding sensation and some resistance to his stream. He denies prior evaluation or issues with gross hematuria. Renal US was done this admission showing renal cortical atrophy, no hydro, masses or stones. Urologic consultation requested for his acute bleeding issues. No outpatient evaluation by our service is noted. Allergies Allergy/AdvReac Type Severity Reaction Status Date / Time celecoxib Allergy Intermediate HIVES Verified 03/12/19 19:07 Penicillins Allergy Intermediate HIVES Verified 03/12/19 19:07 Home Medications Home Medications Medication Instructions Recorded Confirmed Type acetaminophen 500 mg PO QID PRN 02/22/19 03/12/19 History albuterol sulfate 2 puff INHALATION Q6H PRN 02/22/19 03/12/19 History atorvastatin 10 mg PO HS 02/22/19 03/12/19 History carboxymethylcellulose sodium 1 dose OPHTHALMIC (EYE) BID 02/22/19 03/12/19 History [Refresh Celluvisc] fentanyl [Duragesic] 1 patch TRANSDERMAL Q72H 02/22/19 03/12/19 History fluoxetine 40 mg PO DAILY 02/22/19 03/12/19 History insulin glargine [Lantus U-100 15 unit SUBCUT BID 02/22/19 03/12/19 History Insulin] lactulose 1 dose PO BID 02/22/19 03/12/19 History mometasone 50 mcg INTRANASAL BID PRN 02/22/19 03/12/19 History multivitamin with minerals 1 tab PO DAILY 02/22/19 03/12/19 History pantoprazole 40 mg PO DAILY 02/22/19 03/12/19 History pentoxifylline 400 mg PO BID 02/22/19 03/12/19 History potassium chloride 10 meq PO BID 02/22/19 03/12/19 History prednisone 20 mg PO DAILY 02/22/19 03/12/19 History promethazine 25 mg PO Q6H PRN 02/22/19 03/12/19 History propranolol 5 mg PO QAM 02/22/19 03/12/19 History rifaximin [Xifaxan] 550 mg PO BID 02/22/19 03/12/19 History simethicone 80 - 160 mg PO BID PRN 02/22/19 03/12/19 History spironolactone 50 mg PO DAILY 02/22/19 03/12/19 History sulfamethoxazole-trimethoprim 1 tab PO 3XWK MDD m-w-f 02/22/19 03/12/19 History [Bactrim DS] furosemide 40 mg PO BID 02/26/19 03/12/19 History loratadine 10 mg PO HS 02/26/19 03/12/19 History Patient History Medical History Abdominal pain (Acute) Abscess in epidural space of lumbar spine (Acute) Altered mental status (Acute) Asthma (Acute) Diabetic autonomic neuropathy (Acute) Diarrhea (Acute) Fall in home (Acute) Fever (Acute) Fungemia (Acute) Fusion of spine (Acute) GERD (gastroesophageal reflux disease) (Acute) GI bleed (Acute) Gram negative septicemia (Acute) Hepatic encephalopathy (Acute) Hyperammonemia (Acute) Hyperlipidemia (Acute) Hypertension (Acute) Hypertension (Acute) Hypokalemia (Acute) Hypoxia (Acute) Immunocompromised (Acute) Infection of lumbar spine (Acute) Kidney stones (Acute) Lactic acidosis (Acute) Left leg cellulitis (Acute) Lumbar compression fracture (Acute) Lumbar disc herniation with radiculopathy (Acute) Lumbar stenosis with neurogenic claudication (Acute) Marijuana smoker (Acute) Meningitis (Acute) Obesity (Acute) Open wound of LLQ of abdominal wall w/o penentrat into periton cavity (Acute) Peritonitis (acute) generalized (Acute) Pneumonia (Acute) Post op infection (Acute) Sarcoidosis (Acute) Septal defect (Acute) Sleep apnea (Acute) Tenosynovitis, de Quervain (Acute) Thrombocytopenia (Acute) Vomiting (Acute) Alcoholic cirrhosis Surgical History History of carpal tunnel release (Acute) History of cataract surgery (Acute) History of herniorrhaphy (Acute) History of lithotripsy (Acute) History of repair of rotator cuff (Acute) Family History Father Heart attack Social History Preferred Language: Belarusian Communication Ability: Effective Poultry Picker Required: No Beliefs That Will Affect Care: None marital status: Current Living Situation: Spouse Other Information That Helps Us Care for You: No Feels Safe at Home: Yes Safety Concerns: Feels Safe At This Time Smoking Status: Former smoker Do You Dip or Chew Tobacco: No Second Hand Exposure: No Hx Alcohol Use: No Hx Substance Use: No Review of Systems Constitutional: no fever and no chills Eyes: no diplopia Ear, Nose, Mouth, Throat: no ear trauma Respiratory: no hemoptysis Cardiovascular: + edema; no chest pain Gastrointestinal: + abdominal pain; no vomiting Genitourinary: + hematuria Musculoskeletal: + swelling Integumentary: no acne Neurologic: no paralysis Psychiatric: no hopelessness Endocrine: + fatigue Hematologic / Lymphatic: + easy bleeding Physical Exam Constitutional: + obese; no acute distress ENMT: Ears: no hearing impairment Neck: trachea midline; no anterior neck swelling Respiratory: no respiratory distress and does not use accessory muscles Cardiovascular: Vessels: radial pulses present Gastrointestinal (Abdomen): Inspection/Auscultation: + abdomen distended (ascitic fluid, weak abdominal wall with herniation) Percussion/Palpation: abdomen soft; abdomen nontender Skin: + ecchymosis (diffuse) Neurologic: awake; not obtunded Psychiatric: Orientation: alert and oriented x 3 Genitourinary: + circumcised blood at meatus, no active bleeding Results & Data Vital Signs (Past 12 Hours) Vital Signs Temp Pulse Resp BP Pulse Ox 03/17/19 07:41 36.3 C L 79 20 121/75 99 Laboratory Results Laboratory Results - last 48 hr 03/13/19 03/13/19 03/15/19 04:45 10:10 16:28 WBC RBC Hgb Hct MCV MCH MCHC RDW Std Deviation RDW Coeff of Curt Plt Count MPV Immature Gran % (Auto) Neut % (Auto) Lymph % (Auto) [place] % (Auto) Eos % (Auto) Baso % (Auto) Immature Gran # (Auto) Neut # (Auto) Lymph # (Auto) [place] # (Auto) Eos # (Auto) Baso # (Auto) Toxic Granulation Platelet Estimate Hypochromasia Basophilic Stippling Anisocytosis Microcytosis Ovalocytes Echinocytes PT INR Sodium Potassium Chloride Carbon Dioxide Anion Gap BUN Creatinine Est Cr Clr Drug Dosing Est GFR ( Amer) Est GFR (Non-Af Amer) BUN/Creatinine Ratio Glucose POC Glucose 256 H Calcium Total Bilirubin Direct Bilirubin AST ALT Alkaline Phosphatase Ammonia Total Protein Albumin Globulin Albumin/Globulin Ratio Stool Occult Bld Scrn U Marijuana THC Carboxy 45 A Blood Type O Positive Antibody Screen NEGATIVE Crossmatch See Detail 03/15/19 03/15/19 03/16/19 16:29 20:13 05:20 WBC RBC Hgb Hct MCV MCH MCHC RDW Std Deviation RDW Coeff of Curt Plt Count MPV Immature Gran % (Auto) Neut % (Auto) Lymph % (Auto) [place] % (Auto) Eos % (Auto) Baso % (Auto) Immature Gran # (Auto) Neut # (Auto) Lymph # (Auto) [place] # (Auto) Eos # (Auto) Baso # (Auto) Toxic Granulation Platelet Estimate Hypochromasia Basophilic Stippling Anisocytosis Microcytosis Ovalocytes Echinocytes PT INR Sodium 136 Potassium 3.7 Chloride 106 Carbon Dioxide 24 Anion Gap 6.0 BUN 27 H Creatinine 1.48 H Est Cr Clr Drug Dosing 48.6 Est GFR ( Amer) 56.3 Est GFR (Non-Af Amer) 48.6 BUN/Creatinine Ratio 18.2 Glucose 173 H POC Glucose 286 H 298 H Calcium 7.9 L Total Bilirubin 2.2 H Direct Bilirubin 1.4 H AST 20 ALT 21 Alkaline Phosphatase 183 H Ammonia Total Protein 5.2 L Albumin 2.4 L Globulin Albumin/Globulin Ratio Stool Occult Bld Scrn U Marijuana THC Carboxy Blood Type Antibody Screen Crossmatch 03/16/19 03/16/19 03/16/19 05:20 05:20 05:20 WBC 3.68 L RBC 3.65 L Hgb 8.7 L Hct 27.2 L MCV 74.5 L MCH 23.8 L MCHC 32.0 RDW Std Deviation 56.2 H RDW Coeff of Curt 20.4 H Plt Count 49 L MPV 9.1 Immature Gran % (Auto) 0.3 Neut % (Auto) 88.3 Lymph % (Auto) 3.0 [place] % (Auto) 8.4 Eos % (Auto) 0.0 Baso % (Auto) 0.0 Immature Gran # (Auto) 0.01 Neut # (Auto) 3.25 Lymph # (Auto) 0.11 L [place] # (Auto) 0.31 Eos # (Auto) 0.00 Baso # (Auto) 0.00 Toxic Granulation 1+ Platelet Estimate Hypochromasia Present Basophilic Stippling Anisocytosis Present Microcytosis Present Ovalocytes 1+ Echinocytes PT 14.6 H INR 1.5 H Sodium Potassium Chloride Carbon Dioxide Anion Gap BUN Creatinine Est Cr Clr Drug Dosing Est GFR ( Amer) Est GFR (Non-Af Amer) BUN/Creatinine Ratio Glucose POC Glucose Calcium Total Bilirubin Direct Bilirubin AST ALT Alkaline Phosphatase Ammonia 42.0 H Total Protein Albumin Globulin Albumin/Globulin Ratio Stool Occult Bld Scrn U Marijuana THC Carboxy Blood Type Antibody Screen Crossmatch 03/16/19 03/16/19 03/16/19 07:33 08:17 11:50 WBC RBC Hgb Hct MCV MCH MCHC RDW Std Deviation RDW Coeff of Curt Plt Count MPV Immature Gran % (Auto) Neut % (Auto) Lymph % (Auto) [place] % (Auto) Eos % (Auto) Baso % (Auto) Immature Gran # (Auto) Neut # (Auto) Lymph # (Auto) [place] # (Auto) Eos # (Auto) Baso # (Auto) Toxic Granulation Platelet Estimate Hypochromasia Basophilic Stippling Anisocytosis Microcytosis Ovalocytes Echinocytes PT INR Sodium Potassium Chloride Carbon Dioxide Anion Gap BUN Creatinine Est Cr Clr Drug Dosing Est GFR ( Amer) Est GFR (Non-Af Amer) BUN/Creatinine Ratio Glucose POC Glucose 204 H 198 H Calcium Total Bilirubin Direct Bilirubin AST ALT Alkaline Phosphatase Ammonia Total Protein Albumin Globulin Albumin/Globulin Ratio Stool Occult Bld Scrn Negative U Marijuana THC Carboxy Blood Type Antibody Screen Crossmatch 03/16/19 03/16/19 03/17/19 16:36 20:09 06:37 WBC RBC Hgb Hct MCV MCH MCHC RDW Std Deviation RDW Coeff of Curt Plt Count MPV Immature Gran % (Auto) Neut % (Auto) Lymph % (Auto) [place] % (Auto) Eos % (Auto) Baso % (Auto) Immature Gran # (Auto) Neut # (Auto) Lymph # (Auto) [place] # (Auto) Eos # (Auto) Baso # (Auto) Toxic Granulation Platelet Estimate Hypochromasia Basophilic Stippling Anisocytosis Microcytosis Ovalocytes Echinocytes PT INR Sodium 133 L Potassium 3.8 Chloride 103 Carbon Dioxide 23 Anion Gap 7.0 BUN 20 H Creatinine 1.24 Est Cr Clr Drug Dosing 56.0 Est GFR ( Amer) 69.8 Est GFR (Non-Af Amer) 60.2 BUN/Creatinine Ratio 16.4 Glucose 118 H POC Glucose 146 H 185 H Calcium 8.4 L Total Bilirubin 3.1 H Direct Bilirubin AST 30 ALT 22 Alkaline Phosphatase 225 H Ammonia Total Protein 5.6 L Albumin 2.5 L Globulin 3.1 Albumin/Globulin Ratio 0.8 L Stool Occult Bld Scrn U Marijuana THC Carboxy Blood Type Antibody Screen Crossmatch 03/17/19 03/17/19 03/17/19 06:37 06:37 06:37 WBC 6.00 RBC 4.13 L Hgb 10.0 L Hct 30.9 L MCV 74.8 L MCH 24.2 L MCHC 32.4 RDW Std Deviation 56.5 H RDW Coeff of Curt 20.7 H Plt Count 52 L MPV Immature Gran % (Auto) 0.5 Neut % (Auto) 91.6 Lymph % (Auto) 2.7 [place] % (Auto) 5.2 Eos % (Auto) 0.0 Baso % (Auto) 0.0 Immature Gran # (Auto) 0.03 H Neut # (Auto) 5.50 Lymph # (Auto) 0.16 L [place] # (Auto) 0.31 Eos # (Auto) 0.00 Baso # (Auto) 0.00 Toxic Granulation 2+ Platelet Estimate Decreased Hypochromasia Present Basophilic Stippling 1+ Anisocytosis Microcytosis Ovalocytes Echinocytes 2+ PT 14.9 H INR 1.5 H Sodium Potassium Chloride Carbon Dioxide Anion Gap BUN Creatinine Est Cr Clr Drug Dosing Est GFR ( Amer) Est GFR (Non-Af Amer) BUN/Creatinine Ratio Glucose POC Glucose Calcium Total Bilirubin Direct Bilirubin AST ALT Alkaline Phosphatase Ammonia 44.9 H Total Protein Albumin Globulin Albumin/Globulin Ratio Stool Occult Bld Scrn U Marijuana THC Carboxy Blood Type Antibody Screen Crossmatch 03/17/19 03/17/19 08:00 11:31 WBC RBC Hgb Hct MCV MCH MCHC RDW Std Deviation RDW Coeff of Curt Plt Count MPV Immature Gran % (Auto) Neut % (Auto) Lymph % (Auto) [place] % (Auto) Eos % (Auto) Baso % (Auto) Immature Gran # (Auto) Neut # (Auto) Lymph # (Auto) [place] # (Auto) Eos # (Auto) Baso # (Auto) Toxic Granulation Platelet Estimate Hypochromasia Basophilic Stippling Anisocytosis Microcytosis Ovalocytes Echinocytes PT INR Sodium Potassium Chloride Carbon Dioxide Anion Gap BUN Creatinine Est Cr Clr Drug Dosing Est GFR ( Amer) Est GFR (Non-Af Amer) BUN/Creatinine Ratio Glucose POC Glucose 141 H 169 H Calcium Total Bilirubin Direct Bilirubin AST ALT Alkaline Phosphatase Ammonia Total Protein Albumin Globulin Albumin/Globulin Ratio Stool Occult Bld Scrn U Marijuana THC Carboxy Blood Type Antibody Screen Crossmatch
--- NOTE | 2019-03-17 12:59 | CT Scan Report ---
ABDOMEN AND PELVIS CT WITHOUT CONTRAST CT DOSE: 885.08 mGy.cm HISTORY: Acute generalized abdominal pain with history of cirrhotic liver disease and recurrent ascit es abdominal pain TECHNIQUE: Multiaxial CT images of the abdomen and pelvis were performed without contrast. A dose lo wering technique was utilized adhering to the principles of ALARA. COMPARISON STUDY: CT abdomen and pelvis 02/26/2019 FINDINGS: Trace left pleural effusion. Subsegmental bibasilar atelectasis/scarring. Calcified bilateral hilar l ymph nodes. Imaged inferior cardiac chambers are mildly enlarged with coronary arterial calcification s. Graft of aortic valve noted. Device noted about the intra-atrial septum. No pneumatosis or pneumop eritoneum identified. Cirrhotic morphology of the liver with moderate intra-abdominal and intrapelvic ascites. Loculated fl uid collection about the lateral abdominal wall is unchanged measuring approximately 17.8 x 9.2 x 21. 2 cm. This is contiguous with the abdominal cavity and filled with ascites. Scattered calcifications of the gallbladder wall with mild gallbladder wall thickening and partial distention. No biliary duct al dilation identified. Splenomegaly. Scattered parenchymal calcifications of the pancreas with mild generalized pancreatic atrophy. And adrenal glands appear unremarkable. 6 mm calcification of the int erpolar left kidney suggests a nonobstructing calculus. No ureteral calculi or obstructive uropathy i dentified. Focus of air noted about the nondependent urinary bladder. Prostate is unremarkable. Calci fication of the abdominal aorta without aneurysm. No new adenopathy. There is mild wall thickening noted about the gastric antrum which may be secondary to partial disten tion. There is no small bowel obstruction. Small right inguinal hernia. Mild colonic diverticulosis w ithout definite CT evidence of acute diverticulitis. There is asymmetric mesenteric stranding noted a bout the abdominal left upper quadrant and left pericolic gutter. No significant wall thickening of t he adjacent large bowel. Visualized appendix appears noninflamed. Calcifications about the left inter nal canal likely on a postsurgical basis. Mild generalized body wall edema. Subacute healing fracture s about the anterolateral left sixth through 11th ribs without significant displacement. Demineralize d appearance of the bones. Extensive postsurgical changes of the lumbar spine redemonstrated. Remote compression deformities redemonstrated throughout the lumbar spine which also appear unchanged. IMPRESSION: 1. Cirrhotic liver disease with moderate abdominal pelvic ascites which includes loculated ascites ab out the left anterolateral abdominal wall, generally unchanged from comparison. 2. Asymmetric mesenteric stranding about the abdominal left upper quadrant and left pericolic gutter may also be related to underlying cirrhosis with mesenteric edema. No significant bowel wall thickeni ng to suggest associated colitis. Correlate clinically. 3. Partial distention of the gallbladder with mild wall thickening and gallbladder wall calcification s, unchanged. 4. No bowel obstruction. 5. Splenomegaly. 6. Focus of air noted within the urinary bladder lumen may reflect recent instrumentation or gas form ing organism. Correlate with urinalysis. 7. Multiple healing subacute left-sided rib fractures redemonstrated. 8. Additional findings as above. Electronically signed by: Christian Dia M.D. 03/17/2019 12:57 PM
--- NOTE | 2019-03-17 13:43 | Hospitalist Progress Note ---
Date of Service March 17, 2019 Assessment & Plan (1) Abdominal pain: secondary to SBP given cirrhosis, with 1973 WBCs with 90% polynuclear on peritoneal fluid has hernia but is reducible and not tender Had some recurrence of right sided abd pain on 03/[address] unchanged, is likely secondary to ongoing peritonitis and discontinuation of the oxycodone -has fluid collections left flank and left paracolic gutter regions on CT from 02/[address] 04/2018-is loculated ascites -also with moderate free intraperitoneal fluid on same CT from 02/22 and again on repeat CT 03/17 -Now status post US-guided paracentesis on 03/13 for 1.3 L of fluid-consistent with infection -continue on day #5 of 14 of Cipro 400 mg IV every 12 hours for SBP-complete 14 days and then convert to daily 500mg dose for prophylaxis as per GI recs -Follow-up on peritoneal fluid cytology, culture-no growth thus far, cyto negative for malignancy -dc oxycodone because even the 5mg dose causes severe encephalopathy with hallucinations, lethargy (2) Nausea & vomiting: Possibly secondary to SBP as has presented this way previously with SBP. Ileus seen on KUB on admission Now resolved and moving bowels at least twice daily -tolerating reg diet (3) Acute bacterial peritonitis: -Treatment as above (4) Microcytic anemia: Microcytic iron deficiency anemia associated with CKD stage 3 and liver disease Hemoccult negative Hgb lower the day after admission at 6.7 and may be somewhat hemodilutional given drop in all cell lines Baseline hgb around 7.5, severely microcytic last EGD 2016 with erosive gastritis, portal gastropathy, gastric polyps, esophageal Candidiasis as per GI notes Last colonoscopy 2014 with hemorrhoids, diverticulosis Also had a capsule endoscopy at that time with similar findings No obvious bleeding here or at home as per pt and his who saw his emesis Now status post 1 unit PRBCs transfused on 03/13, and another 2 units given on 03/15 Hgb now at 10.0 Iron studies consistent with mixture of iron deficiency anemia and anemia of chronic disease-will need oral iron supplementation upon discharge but will hold off for now given constipation -GI consult-question if needs EGD this admission? Discussed with GI and likely no EGD needed as no melena and hemoccult negative (5) Altered mental status: Acute metabolic encephalopathy due to cirrhosis of the liver due to alcohol and sarcoidosis. With some component secondary to hepatic encephalopathy and secondary to opioid use Presented with confusion/somnolence/weakness and fatigue prior to admission secondary to SBP. Workup otherwise with CT head negative chronic sinusitis. Mild increase in Tbili of 2.5 on admission, had improved to 2.2 , now back up to 3.1, unclear why TSH WNL. VBG with respiratory alkalosis, no CO2 retention. Ammonia level was normal at 20,then increased to 56 and now back down to 44 with moving bowels more With +THC on UDS Encephalopathy had resolved initially with treatment of SBP, but then continued to be waxing/waning secondary to hepatic encephalopathy, constipation, and oxycodone use -continue increased dose of lactulose 20 gm bid -dc oxycodone completely -follow NH3 levels -continue treatment of the SBP (6) Cirrhosis: Patient with cirrhosis secondary to EtOH and sarcoidosis/side effects from multiple treatments used for sarcoidosis including Achtar (synthetic ACTH). NH3 levels elevated as above with intermittent hepatic encephalopathy TBili and DBili, AST, Alk phos mildly elevated, INR up a bit to 1.5, plts low but stable at 52 With SBP as above -received albumin on 03/14 for LETTY -Continue holding Lasix -restart Spironolactone today as per d/w Nephro -Continue Rifaximin and Lactulose -Monitor electrolytes, renal function and LFTs -continue holding propranolol for portal hypertension in the setting of SBP and consider discontinuing it indefinitely as can have worse outcomes with beta- blockers in the setting of SBP (7) Abrasion: Multiple skin abrasions from frequent falls -Consult wound care -Dressing changes (8) Ambulatory dysfunction: Patient with frequent falls at home. Has PT and OT at home presently. and pt report pt has been non-ambulatory since "something got nicked in my last surgery" and is in wheelchair with some standing transfers with walker -PT/OT assessment. May benefit from inpatient rehab -Fall precautions (9) Steroid long-term use: Prednisone 20mg po daily for Sarcoidosis -Continue daily steroids -with borderline hypotension here which is now improved--> will now dc stress- dose steroids (10) Sarcoidosis: Chronic, pulmonary, unresponsive to multiple drugs in the past including high dose steroids, Remicade, MTX, Acthar -Continue Steroids (11) DM type 2 (diabetes mellitus, type 2): Blood glucose were previously low when he had minimal po intake. AIC=6.8 on 01/27/19 Then with hyperglycemia in the setting of stress test IV steroids and increased oral intake. Sugars now improved with restarting Lantus and increasing dose -continue Lantus 18 units twice daily BUT MAY NEED TO DECREASE as now off IV hydrocortisone -ISS -Continue to monitor (12) Hypertension: Blood pressure borderline low but now improved. reports patient runs in the low 100's at baseline -Holding propranolol as above -Holding diuretics but now restarting aldactone so watch BP carefully -dc stress dosed steroids (13) Hyperlipidemia: Chronic. -Continue Atorvastatin (14) GERD (gastroesophageal reflux disease): Chronic. -Continue Protonix and increased to bid in case of portal gastropathy or gastritis (15) Thrombocytopenia: plts down to 70 on admission likely from cirrhosis with hypersplenism and some hemodilution Stable but low today at 52, now with bleeding from urethral meatus -follow CBC (16) Sleep apnea: has CPAP at home but no longer uses as he states "I'm stubborn" (17) Lumbar stenosis with neurogenic claudication: continue chronic pain meds with Fentanyl patch -has had 7 surgeries on back with extensive fusions and rods, has compression fractures -dc Oxycodone as above -start Voltaren gel (18) Chronic sinusitis: seen on CT Head, pansinusitis, asymptomatic, with history of sinus surgery -needs ENT f/u as an outpatient (19) Aortic stenosis: Mild on echocardiogram from 2018 -Asymptomatic and preserved LVEF on that echo at that time -Follow as an outpatient (20) Mitral regurgitation: Mild-moderate on echo in 2018 -Follow as an outpatient (21) LETTY (acute kidney injury): Creatinine peaked at 2.15 and now improved to 1.24, likely was secondary to prerenal azotemia from acute illness with SBP, poor p.o. intake, may be mild ATN from low blood pressures Urinalysis is bland -Appreciate nephrology consultation-now status post receiving 1 L of normal saline along with 25% albumin 3 times daily for 1 day Hyperkalemia now resolved -holding home diuretics- restarting aldactone today -can restart lasix if BPs can tolerate (22) CKD stage 3 due to type 2 diabetes mellitus: Baseline creatinine around 1.4 -Avoid nephrotoxins -Renally dose medications (23) Hyperkalemia: Potassium 5.2 secondary to acute kidney injury and oral potassium supplement Now resolved after receiving Kayexalate and holding potassium supplement, improvement of renal function -Continue to hold oral potassium supplement -Follow BMP daily (24) Hematuria: secondary to Verma trauma, elevated INR, low platelets -started after Verma removed, persists, dripping blood frommeatus -Consulted Urology -replaced Verma as may be retaining urine as well -keep in for several days for tamponade -Appreciate Urol assistance (25) DVT prophylaxis: We will continue to hold chemical means due to severe anemia and possibility of occult GI bleed and with bleeding continue SCDs and JENIFER cuevas Dispo-remain on medical floor, PT/OT consults in place, may need rehab is his HCPOA/Advanced directives state he is a FULL CODE but does not want prolonged life saving measures if prognosis poor or in vegetative state following a resuscitation Subjective Patient has been having gross hematuria from the meatus even without urinating since last night after the Verma catheter was pulled. He is also complaining of right-sided abdominal pain but also he has not been getting any oxycodone since yesterday due to his altered mental status. His mentation is much improved today. He denies chest pain or shortness of breath. He has chronic back pain. I discussed the case at length with nephrology today. Review of Systems Review of Systems: All systems reviewed & are unremarkable except as noted in HPI & below Physical Exam Constitutional: WD/WN, vitals as above (Awake and alert and having normal c onversation) + obese; no acute distress Eyes: PERRL, conjunctivae normal, anicteric sclerae (With bilateral proptosis) ENMT: external ear and nose normal, oropharynx normal Neck: trachea midline, no thyromegaly Respiratory: normal respiratory effort, lungs clear to auscultation Cardiovascular: Rate/Rhythm: regular rate and regular rhythm Heart Sounds: + murmur (2/6 at RUSB) Extremities: + edema (left foot and leg trace pitting edema chronic as per pt>right) Gastrointestinal (Abdomen): Inspection/Auscultation: + abdomen abnormal to inspection (very large LLQ hernia, reducible and nontender) Percussion/Palpation: + abdomen tender (In the right lower quadrant without guarding or rebound, no hernia at that point) and abdomen soft; abdomen not rigid Musculoskeletal: Extremities: extremities normal to inspection; no cyanosis and no clubbing Skin: no rashes, warm and dry + wound (multiple scabbed over lesions on all extremities) Neurologic: moves all extremities and awake; no focal motor deficits and not confused Psychiatric: A+Ox3, euthymic affect Genitourinary: no penis abnormality (With small amount of blood from the meatus) and no scrotum abnormality Results & Data Vital Signs (Past 12 Hours) Vital Signs Temp Pulse Resp BP Pulse Ox 03/17/19 07:41 36.3 C L 79 20 121/75 99 Laboratory Results 03/17/19 03/17/19 03/17/19 Range/Units 11:31 08:00 06:37 WBC (4.8-10.8) K/uL RBC (4.7-6.1) M/uL Hgb (14.0-18.0) g/dL Hct (42-52) % MCV (80-100) fL MCH (25-34) pg MCHC (32-36) g/dL RDW Std Deviation (36.4-46.3) fL RDW Coeff of Curt (11.5-14.5) % Plt Count (130-400) K/uL Immature Gran % (Auto) % Neut % (Auto) % Lymph % (Auto) % Mccracken % (Auto) % Eos % (Auto) % Baso % (Auto) % Immature Gran # (Auto) (0.00-0.02) K/uL Neut # (Auto) (1.4-6.5) K/uL Lymph # (Auto) (1.2-3.4) K/uL Mccracken # (Auto) (0.11-0.59) K/uL Eos # (Auto) (0-0.5) K/uL Baso # (Auto) (0-0.2) K/uL Toxic Granulation Platelet Estimate (Normal) Hypochromasia Basophilic Stippling Echinocytes PT 14.9 H (9.0-12.0) Seconds INR 1.5 H (0.9-1.1) Sodium (136-145) mmol/L Potassium (3.5-5.1) mmol/L Chloride (98-107) mmol/L Carbon Dioxide (21-32) mmol/L Anion Gap (3-11) BUN (7-18) mg/dl Creatinine (0.6-1.4) mg/dl Est Cr Clr Drug Dosing ml/min Est GFR ( Amer) Est GFR (Non-Af Amer) BUN/Creatinine Ratio (10-20) Glucose (70-99) mg/dl POC Glucose 169 H 141 H (70-99) Calcium (8.5-10.1) mg/dl Total Bilirubin (0.2-1) mg/dl AST (15-37) U/L ALT (12-78) U/L Alkaline Phosphatase (45-117) U/L Ammonia (11-32) umol/L Total Protein (6.4-8.2) gm/dl Albumin (3.4-5.0) gm/dl Globulin (2.5-4.0) gm/dl Albumin/Globulin Ratio (0.9-2) 03/17/19 03/17/19 03/17/19 Range/Units 06:37 06:37 06:37 WBC 6.00 (4.8-10.8) K/uL RBC 4.13 L (4.7-6.1) M/uL Hgb 10.0 L (14.0-18.0) g/dL Hct 30.9 L (42-52) % MCV 74.8 L (80-100) fL MCH 24.2 L (25-34) pg MCHC 32.4 (32-36) g/dL RDW Std Deviation 56.5 H (36.4-46.3) fL RDW Coeff of Curt 20.7 H (11.5-14.5) % Plt Count 52 L (130-400) K/uL Immature Gran % (Auto) 0.5 % Neut % (Auto) 91.6 % Lymph % (Auto) 2.7 % Mccracken % (Auto) 5.2 % Eos % (Auto) 0.0 % Baso % (Auto) 0.0 % Immature Gran # (Auto) 0.03 H (0.00-0.02) K/uL Neut # (Auto) 5.50 (1.4-6.5) K/uL Lymph # (Auto) 0.16 L (1.2-3.4) K/uL Mccracken # (Auto) 0.31 (0.11-0.59) K/uL Eos # (Auto) 0.00 (0-0.5) K/uL Baso # (Auto) 0.00 (0-0.2) K/uL Toxic Granulation 2+ Platelet Estimate Decreased (Normal) Hypochromasia Present Basophilic Stippling 1+ Echinocytes 2+ PT (9.0-12.0) Seconds INR (0.9-1.1) Sodium 133 L (136-145) mmol/L Potassium 3.8 (3.5-5.1) mmol/L Chloride 103 (98-107) mmol/L Carbon Dioxide 23 (21-32) mmol/L Anion Gap 7.0 (3-11) BUN 20 H (7-18) mg/dl Creatinine 1.24 (0.6-1.4) mg/dl Est Cr Clr Drug Dosing 56.0 ml/min Est GFR ( Amer) 69.8 Est GFR (Non-Af Amer) 60.2 BUN/Creatinine Ratio 16.4 (10-20) Glucose 118 H (70-99) mg/dl POC Glucose (70-99) Calcium 8.4 L (8.5-10.1) mg/dl Total Bilirubin 3.1 H (0.2-1) mg/dl AST 30 (15-37) U/L ALT 22 (12-78) U/L Alkaline Phosphatase 225 H (45-117) U/L Ammonia 44.9 H (11-32) umol/L Total Protein 5.6 L (6.4-8.2) gm/dl Albumin 2.5 L (3.4-5.0) gm/dl Globulin 3.1 (2.5-4.0) gm/dl Albumin/Globulin Ratio 0.8 L (0.9-2) 03/16/19 03/16/19 Range/Units 20:09 16:36 WBC (4.8-10.8) K/uL RBC (4.7-6.1) M/uL Hgb (14.0-18.0) g/dL Hct (42-52) % MCV (80-100) fL MCH (25-34) pg MCHC (32-36) g/dL RDW Std Deviation (36.4-46.3) fL RDW Coeff of Curt (11.5-14.5) % Plt Count (130-400) K/uL Immature Gran % (Auto) % Neut % (Auto) % Lymph % (Auto) % Mccracken % (Auto) % Eos % (Auto) % Baso % (Auto) % Immature Gran # (Auto) (0.00-0.02) K/uL Neut # (Auto) (1.4-6.5) K/uL Lymph # (Auto) (1.2-3.4) K/uL Mccracken # (Auto) (0.11-0.59) K/uL Eos # (Auto) (0-0.5) K/uL Baso # (Auto) (0-0.2) K/uL Toxic Granulation Platelet Estimate (Normal) Hypochromasia Basophilic Stippling Echinocytes PT (9.0-12.0) Seconds INR (0.9-1.1) Sodium (136-145) mmol/L Potassium (3.5-5.1) mmol/L Chloride (98-107) mmol/L Carbon Dioxide (21-32) mmol/L Anion Gap (3-11) BUN (7-18) mg/dl Creatinine (0.6-1.4) mg/dl Est Cr Clr Drug Dosing ml/min Est GFR ( Amer) Est GFR (Non-Af Amer) BUN/Creatinine Ratio (10-20) Glucose (70-99) mg/dl POC Glucose 185 H 146 H (70-99) Calcium (8.5-10.1) mg/dl Total Bilirubin (0.2-1) mg/dl AST (15-37) U/L ALT (12-78) U/L Alkaline Phosphatase (45-117) U/L Ammonia (11-32) umol/L Total Protein (6.4-8.2) gm/dl Albumin (3.4-5.0) gm/dl Globulin (2.5-4.0) gm/dl Albumin/Globulin Ratio (0.9-2) Diagnostic Findings CT abdomen/pelvis: IMPRESSION: 1. Cirrhotic liver disease with moderate abdominal pelvic ascites which includes loculated ascites about the left anterolateral abdominal wall, generally unchanged from comparison. 2. Asymmetric mesenteric stranding about the abdominal left upper quadrant and left pericolic gutter may also be related to underlying cirrhosis with mesenteric edema. No significant bowel wall thickening to suggest associated colitis. Correlate clinically. 3. Partial distention of the gallbladder with mild wall thickening and gallbladder wall calcifications, unchanged. 4. No bowel obstruction. 5. Splenomegaly. 6. Focus of air noted within the urinary bladder lumen may reflect recent instrumentation or gas forming organism. Correlate with urinalysis. 7. Multiple healing subacute left-sided rib fractures redemonstrated. 8. Additional findings as above. 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 (2) Hyperlipidemia Hyperlipidemia type: unspecified Qualified Code(s): E78.5 - Hyperlipidemia, unspecified (3) Cirrhosis Ascites presence: with ascites Hepatic cirrhosis type: alcoholic cirrhosis Qualified Code(s): K70.31 - Alcoholic cirrhosis of liver with ascites (4) Altered mental status Altered mental status type: unspecified Qualified Code(s): R41.82 - Altered mental status, unspecified (5) GERD (gastroesophageal reflux disease) Esophagitis presence: esophagitis presence not specified Qualified Code(s): K21.9 - Gastro-esophageal reflux disease without esophagitis (6) Hypertension Hypertension type: essential hypertension Qualified Code(s): I10 - Essential (primary) hypertension
[2019-03-17] MEDS ORDERED: Nursing to Pharmacy Communication ONE ×2 (14:41→18:10)
[2019-03-17] MEDS: DICLOFENAC SOD 1% GEL 100 GM TUBE EXT PRN ×2 (15:39→18:37)
--- NOTE | 2019-03-17 16:11 | Gastroenterology Progress Note ---
Date of Service March 17, 2019 Assessment & Plan (1) Acute bacterial peritonitis: SBP---continue abx, cultures NGSF, cytology neg abd pain--different location of pain today, CT no change--improved at present LETTY ---appreciate renal consult confusion-improved off narcotic, ammonia only 45, anemia-stable, heme neg stool this admit so no gross GI bleeding. hematuria--per hospitalist/urology Dr Rubio is assuming GI care tomorrow 03/18 at 0730. Subjective cc f/u SBP HPI Per nursing patient had gross hematuria earlier today and also RLQ pain. A/p CT ordered to looked for pathology to explain. Reviewed report and findings similar to admission with area of loculated ascites lateral wall but communicating with rest of fluid in abdomen, cirrhosis, splenomegaly. Pt is more alert today off oxycodone. He states pain on admit was LLQ and this am RLQ. He is comfortable at present Physical Exam Constitutional: WD/WN, vitals as above Respiratory: normal respiratory effort, lungs clear to auscultation Cardiovascular: Rate/Rhythm: regular rate Gastrointestinal (Abdomen): normal bowel sounds, soft, nontender, no hepatosplenomegaly Skin: normal turgor Psychiatric: A+Ox3, euthymic affect Results & Data Vital Signs (Past 12 Hours) Vital Signs Temp Pulse Resp BP Pulse Ox 03/17/19 15:25 36.8 C 81 20 118/76 99 03/17/19 07:41 36.3 C L 79 20 121/75 99
[2019-03-17] MEDS: LORATADINE 10 MG TAB PO SCH (21:24)
[2019-03-17] MEDS: ATORVASTATIN 10 MG TAB PO SCH (21:24)
[2019-03-18] MEDS: CIPROFLOXACIN 400 MG/200 ML BAG IV SCH ×2 (06:28→18:03)
[2019-03-18 07:15] LABS: INR 1.4 (0.9-1.1); Mean Corpuscular Hgb Conc 32.3 g/dL (32-36); Prothrombin Time 13.7 Seconds (9.0-12.0)
[2019-03-18 07:21] LABS: Hemoglobin 9.7 g/dL (14.0-18.0); Mean Corpuscular Volume 74.4 fL (80-100); RDW Coefficient of Variation 21.3 % (11.5-14.5); RDW Standard Deviation 57.8 fL (36.4-46.3); Red Blood Count 4.03 M/uL (4.7-6.1); White Blood Count 6.97 K/uL (4.8-10.8)
[2019-03-18 07:39] LABS: Albumin Level 2.3 gm/dl (3.4-5.0); BUN Creatinine Ratio 18.2 (10-20); Creatinine Clr Calc Pharmacy 48.7 ml/min; Est GFR (African American) 58.2; Est GFR (Non-African American) 50.2; Potassium 3.8 mmol/L (3.5-5.1)
[2019-03-18 07:48] LABS: Anisocytosis Present; Echinocytes 1+; Eosinophils # (auto) 0.05 K/uL (0-0.5); Eosinophils % (auto) 0.7 %; Immature Granulocytes # (auto) 0.04 K/uL (0.00-0.02); Immature Granulocytes % (auto) 0.6 %; Lymphocytes # (auto) 0.21 K/uL (1.2-3.4); Microcytosis Present; Monocytes # (auto) 0.54 K/uL (0.11-0.59); Monocytes % (auto) 7.7 %; Neutrophils # (auto) 6.13 K/uL (1.4-6.5); Platelet Count 49 K/uL (130-400); Platelet Estimate Decreased (Normal)
[2019-03-18 07:49] LABS: Albumin Globulin Ratio 0.7 (0.9-2); Bilirubin,Total 2.6 mg/dl (0.2-1); Globulin 3.1 gm/dl (2.5-4.0); Total Protein 5.4 gm/dl (6.4-8.2)
[2019-03-18] MEDS: ONDANSETRON INJ 2 MG/ML 2 ML VIAL IV PRN ×3 (08:25→23:17)
[2019-03-18] MEDS: FLUOXETINE HCL 20 MG CAP PO SCH (08:28)
[2019-03-18] MEDS: PANTOprazole 40 MG TAB PO SCH ×2 (08:29→20:53)
[2019-03-18] MEDS: SPIRONOLACTONE 25 MG TAB PO SCH (08:29)
[2019-03-18] MEDS: PENTOXIFYLLINE 400MG EXT REL TAB PO SCH ×2 (08:29→20:54)
[2019-03-18] MEDS: predniSONE 20 MG TAB PO SCH (08:29)
[2019-03-18] MEDS: LACTULOSE SYRUP 20 GM/30 ML UDC PO SCH ×2 (08:30→20:55)
[2019-03-18] MEDS: RIFAXIMIN 550 MG TABLET PO SCH ×2 (08:30→20:54)
[2019-03-18] MEDS: ARTIFICIAL TEARS OP SCH ×2 (08:30→20:55)
[2019-03-18] MEDS: CHECK FENTANYL PATCH PLACEMENT SCH ×3 (08:31→23:27)
[2019-03-18] MEDS: INSULIN GLARGINE SOLOSTAR 100 UNITS/ML 3 ML PEN SC SCH ×2 (08:33→20:51)
[2019-03-18] MEDS: INSULIN ASPART 100 UNITS/ML 3 ML PEN SC SCH ×4 (08:35→20:52)
[2019-03-18 09:46] LABS: Uric Acid 6.2 mg/dl (2.6-7.2)
--- NOTE | 2019-03-18 10:42 | Urology Progress Note ---
Date of Service March 18, 2019 Assessment & Plan (1) Gross hematuria: 64yo M admitted with renal failure, ascites, with gross hematuria and ureteral bleeding after salinas removal two days ago. Salinas reinserted yesterday. Doing well, tolerating catheter without difficulty. Hemturia resolved - salinas now draining hazy yellow. Plan per Dr. Mckeon, maintain catheter for 2-3days. Trial of void prior to discharge. Okay to hand irrigate PRN for clots/obstruction. In the event patient is unable to void spontaneously and catheter needs replaced prior to discharge, please recontact our service as this will change our follow up plan. Will arrange for outpatient cystoscopy by our office to assess bladder anatomy in 3-4 weeks. Thank you for allowing us to participate in the care of Mr. Santiago. Please reconsult with any issues/concerns or changes in patient status. Subjective 64yo M admitted with renal failure, ascites, with gross hematuria and ureteral bleeding after salinas removal two days ago. Salinas reinserted yesterday. Pt doing well from standpoint. Tolerating catheter well. Denies ureteral or suprapubic pain. Denies bladder spasms. Salinas catheter draining hazy yellow. No clots. Pelvis noted to have generalized dependent, nonpitting edema with pt in seated position. Urethral meatus/salinas insertion site with no active bleeding, exudate or other issues. Review of Systems Review of Systems: All systems reviewed & are unremarkable except as noted in HPI & below Physical Exam Physical Exam: Salinas catheter draining hazy yellow. No clots. Pelvis noted to have generalized dependent, nonpitting edema with pt in seated position. Urethral meatus/salinas insertion site with no active bleeding, exudate or other issues. Results & Data Vital Signs (Past 12 Hours) Vital Signs Temp Pulse Resp BP Pulse Ox 03/18/19 08:20 37.0 C 80 20 107/70 96
--- NOTE | 2019-03-18 10:47 | Nephrology Progress Note ---
Date of Service March 18, 2019 Assessment & Plan (1) ARF (acute renal failure): -- LETTY likely related to SBP, intravascular volume contraction, anemia and relative hypotension. Urine studies consistent with some component or prerenal physiology or HRS. Renal US did not demonstrate obstruction -- Volume status acceptable -- continue on spironolactone 50 milligram p.o. daily for now --if urine output remained low may need to start on Bumex 1 milligram p.o. daily and then increase dose as needed --restrict free water intake to less than 40 ounce a day --check urine osmolality and repeat serum sodium --increase protein intake to improve free water clearance -- Document I/O's -- Repeat metabolic profile tomorrow AM (2) Acute bacterial peritonitis: -- On IV Cipro. Dose is currently appropriate for level of kidney function -- Unclear etiology of left lower quadrant abdominal tenderness. Abdominal CT requested for additional evaluation -- Culture negative SBP (3) Anemia: -- Agree w/ transfusion to maintain Hgb > 8.0 (4) Gross hematuria: -- Requested Verma to be replaced until bleeding resolved -- May manually irrigate as needed Subjective Orlando was seen examined in his room this morning. His much more awake, alert has been having breakfast the although reports appetite being poor. Renal function staying somewhat stable, creatinine 1.4 this morning. Serum sodium dropped to 127. He has been net positive despite being on Aldactone 50 milligram which was started yesterday. Blood pressure remained low but relatively asymptomatic. Physical Exam Constitutional: WD/WN, vitals as above Respiratory: normal respiratory effort, lungs clear to auscultation Cardiovascular: Rate/Rhythm: regular rate and regular rhythm Gastrointestinal (Abdomen): Inspection/Auscultation: + abdomen distended left LQ hernia Neurologic: moves all extremities and awake Psychiatric: A+Ox3, euthymic affect Results & Data Vital Signs (Past 12 Hours) Vital Signs Temp Pulse Resp BP Pulse Ox 03/18/19 08:20 37.0 C 80 20 107/70 96
[2019-03-18] MEDS: DICLOFENAC SOD 1% GEL 100 GM TUBE EXT PRN ×2 (17:10→23:27)
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
--- NOTE | 2019-03-18 18:20 | Progress Note ---
DATE: 03/18/2019 SUBJECTIVE: The patient reports a little bit of abdominal discomfort and nausea today and received a dose of antiemetic. He did have fruit for breakfast and then lunch and this evening he has eaten tomato soup and part of a grilled cheese sandwich. Continues to have an indwelling Verma catheter. He is afebrile. His vital signs are normal. Abdomen is somewhat more protuberant today. He had a CAT scan yesterday shows a fair amount of ascites, some of it loculated on the left side. His ascites culture showed 2 organisms. An alpha strep and an Enterococcus both in small numbers; it is not clear whether these actually were pathogenic or not, but he did have multiple white cells in the fluid. He is improving on IV Cipro. Plan is to continue Cipro for a total of 14 days at full dose and then half dose as a maintenance going forward.
--- NOTE | 2019-03-18 20:49 | Hospitalist Progress Note ---
Date of Service March 18, 2019 Assessment & Plan (1) SBP (spontaneous bacterial peritonitis): cell counts at admission s/p diagnostic paracentesis c/w SBP. remains on cipro IV bid. day #6. culture with gram positive rods. in most cases gram positive rods are contaminants. either way he is slowly clinically improving. continue IV cipro. plan 14 days of Rx. could likely go to PO cipro tomorrow. appreciate GI input. after bid dosing of cipro likely to use cipro as SBP prophylaxis thereafter. (2) Gross hematuria: resolved sal[place] is in place urology following plan- voiding trial in 2-3 days outpatient cystoscopy (3) CKD stage 3 due to type 2 diabetes mellitus: creatinine now back to baseline following an acute kidney injury (4) LETTY (acute kidney injury): resolved Peak Cr was 2.1 now 1.4 (5) Hyponatremia: acute/chronic acute component uncertain cause TSH, cortisol wnl Urine Na very low consistent with salt depletion lasix currently on hold uric acid is normal which would argue against SIADH remains on aldactone daily repeat BMP am nephrology following this issue as well (6) Sarcoidosis: long-standing, steroid-dependent (prednisone 20mg/day) (7) Cirrhosis: 2nd to sarcoid, medication toxicity, etc no prior h/o etoh cont lactulose and rifaximin for hepatic encephalopathy prophylaxis treat SBP with cipro lasix on hold aldactone continues appreciate GI consult & recs cont PPI twice daily (h/o multiple upper GI issues) (8) DM type 2 (diabetes mellitus, type 2): BSGs acceptable at this time cont lantus cont novolog (9) Lumbar disc herniation with radiculopathy: with resulting acquired paraplegic type state patient no longer walks also with chronic back pain 2nd to this issue (10) 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 updated at bedside today Subjective patient eating ice cream upon my arrival. tolerating such. had 1 episode of nausea with emesis this am per . confirms he has days at home when he is confused and memory is poor. he denies any abdominal pain to me during the visit. also confirms he is nonambulatory due to chronic lumbar back issues but typically he can stand/pivot/transfer to get to a chair. now he cannot do such. Review of Systems Constitutional: no fever Respiratory: no cough and no dyspnea Cardiovascular: no chest pain Gastrointestinal: no abdominal pain Physical Exam Constitutional: + ill appearing and + altered mental status (oriented to place/person only); no acute distress Eyes: + anicteric sclerae ENMT: external ear and nose normal, oropharynx normal Respiratory: no respiratory distress Auscultation: + diminished lung sounds (bases); no crackles, no rhonchi and no wheezes Cardiovascular: Rate/Rhythm: regular rate and regular rhythm Heart Sounds: normal S1, normal S2 and + murmur (1/6 LSB) Vessels: posterior tibial pulses present and dorsalis pedis pulses present; no JVD Extremities: + pedal edema (1-2 + b/l) Gastrointestinal (Abdomen): protuberant abdomen; ascites present; large hernia left side of abdomen - this is reducible; left flank with protuberance - loculated ascites?; nontender; no hepatomegaly Skin: numerous optifoam dressings in place on arms/legs Psychiatric: Orientation: alert; + not oriented x 3 (could not name the date, month, year) Results & Data Vital Signs (Past 12 Hours) Vital Signs Temp Pulse Resp BP Pulse Ox 03/18/19 15:38 36.5 C 93 H 20 135/78 100 03/18/19 15:34 98 Laboratory Results Laboratory Results - last 24 hr 03/18/19 03/18/19 03/18/19 06:55 06:55 06:55 WBC 6.97 RBC 4.03 L Hgb 9.7 L Hct 30.0 L MCV 74.4 L MCH 24.1 L MCHC 32.3 RDW Std Deviation 57.8 H RDW Coeff of Curt 21.3 H Plt Count 49 L Immature Gran % (Auto) 0.6 Neut % (Auto) 88.0 Lymph % (Auto) 3.0 Hodgeman % (Auto) 7.7 Eos % (Auto) 0.7 Baso % (Auto) 0.0 Immature Gran # (Auto) 0.04 H Neut # (Auto) 6.13 Lymph # (Auto) 0.21 L Hodgeman # (Auto) 0.54 Eos # (Auto) 0.05 Baso # (Auto) 0.00 Platelet Estimate Decreased Anisocytosis Present Microcytosis Present Echinocytes 1+ PT INR Sodium 127 L Potassium 3.8 Chloride 97 L Carbon Dioxide 24 Anion Gap 6.0 BUN 26 H Creatinine 1.44 H Est Cr Clr Drug Dosing 48.7 Est GFR ( Amer) 58.2 Est GFR (Non-Af Amer) 50.2 BUN/Creatinine Ratio 18.2 Glucose 116 H POC Glucose Uric Acid Calcium 8.0 L Total Bilirubin 2.6 H AST 27 ALT 22 Alkaline Phosphatase 245 H Ammonia 59.0 H Total Protein 5.4 L Albumin 2.3 L Globulin 3.1 Albumin/Globulin Ratio 0.7 L TSH Random Cortisol Urine Osmolality Ur Random Sodium 03/18/19 03/18/19 03/18/19 06:55 07:38 08:52 WBC RBC Hgb Hct MCV MCH MCHC RDW Std Deviation RDW Coeff of Curt Plt Count Immature Gran % (Auto) Neut % (Auto) Lymph % (Auto) Hodgeman % (Auto) Eos % (Auto) Baso % (Auto) Immature Gran # (Auto) Neut # (Auto) Lymph # (Auto) Hodgeman # (Auto) Eos # (Auto) Baso # (Auto) Platelet Estimate Anisocytosis Microcytosis Echinocytes PT 13.7 H INR 1.4 H Sodium Potassium Chloride Carbon Dioxide Anion Gap BUN Creatinine Est Cr Clr Drug Dosing Est GFR ( Amer) Est GFR (Non-Af Amer) BUN/Creatinine Ratio Glucose POC Glucose 133 H Uric Acid 6.2 Calcium Total Bilirubin AST ALT Alkaline Phosphatase Ammonia Total Protein Albumin Globulin Albumin/Globulin Ratio TSH 1.420 Random Cortisol Urine Osmolality Ur Random Sodium 03/18/19 03/18/19 03/18/19 08:52 11:45 16:31 WBC RBC Hgb Hct MCV MCH MCHC RDW Std Deviation RDW Coeff of Curt Plt Count Immature Gran % (Auto) Neut % (Auto) Lymph % (Auto) Hodgeman % (Auto) Eos % (Auto) Baso % (Auto) Immature Gran # (Auto) Neut # (Auto) Lymph # (Auto) Hodgeman # (Auto) Eos # (Auto) Baso # (Auto) Platelet Estimate Anisocytosis Microcytosis Echinocytes PT INR Sodium Potassium Chloride Carbon Dioxide Anion Gap BUN Creatinine Est Cr Clr Drug Dosing Est GFR ( Amer) Est GFR (Non-Af Amer) BUN/Creatinine Ratio Glucose POC Glucose 116 H 142 H Uric Acid Calcium Total Bilirubin AST ALT Alkaline Phosphatase Ammonia Total Protein Albumin Globulin Albumin/Globulin Ratio TSH Random Cortisol 16.10 Urine Osmolality Ur Random Sodium 03/18/19 03/18/19 03/18/19 20:39 Unknown Unknown WBC RBC Hgb Hct MCV MCH MCHC RDW Std Deviation RDW Coeff of Curt Plt Count Immature Gran % (Auto) Neut % (Auto) Lymph % (Auto) Hodgeman % (Auto) Eos % (Auto) Baso % (Auto) Immature Gran # (Auto) Neut # (Auto) Lymph # (Auto) Hodgeman # (Auto) Eos # (Auto) Baso # (Auto) Platelet Estimate Anisocytosis Microcytosis Echinocytes PT INR Sodium Potassium Chloride Carbon Dioxide Anion Gap BUN Creatinine Est Cr Clr Drug Dosing Est GFR ( Amer) Est GFR (Non-Af Amer) BUN/Creatinine Ratio Glucose POC Glucose 197 H Uric Acid Calcium Total Bilirubin AST ALT Alkaline Phosphatase Ammonia Total Protein Albumin Globulin Albumin/Globulin Ratio TSH Random Cortisol Urine Osmolality 368 L Ur Random Sodium 9 (1) Cirrhosis Hepatic cirrhosis type: alcoholic cirrhosis Ascites presence: with ascites Qualified Code(s): K70.31 - Alcoholic cirrhosis of liver with ascites (2) DM type 2 (diabetes mellitus, type 2) Diabetes mellitus healthcare applications analyst insulin use: with healthcare applications analyst use Diabetes mellitus complication status: without complication Qualified Code(s): E11.9 - Type 2 diabetes mellitus without complications; Z79.4 - special 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
[2019-03-18] MEDS: fentaNYL 25 MCG/HR TDSY TD SCH (20:50)
[2019-03-18] MEDS: ATORVASTATIN 10 MG TAB PO SCH (20:53)
[2019-03-18] MEDS: LORATADINE 10 MG TAB PO SCH (20:53)
[2019-03-19] MEDS ORDERED: TRAMADOL HCL 50 MG TABLET PO STA (02:44)
[2019-03-19] MEDS: CIPROFLOXACIN 400 MG/200 ML BAG IV SCH (06:02)
[2019-03-19 07:12] LABS: Mean Corpuscular Hgb Conc 33.4 g/dL (32-36)
[2019-03-19 07:40] LABS: Hematocrit (blood only) 28.7 % (42-52); Hemoglobin 9.6 g/dL (14.0-18.0); Mean Corpuscular Volume 73.6 fL (80-100); RDW Coefficient of Variation 21.7 % (11.5-14.5); RDW Standard Deviation 58.6 fL (36.4-46.3)
[2019-03-19 07:42] LABS: Platelet Count 53 K/uL (130-400); Platelet Estimate Decreased (Normal)
[2019-03-19 08:00] LABS: Albumin Globulin Ratio 0.8 (0.9-2); Albumin Level 2.2 gm/dl (3.4-5.0); BUN Creatinine Ratio 20.3 (10-20); Bilirubin,Total 2.4 mg/dl (0.2-1); Calcium 8.2 mg/dl (8.5-10.1); Creatinine Clr Calc Pharmacy 44.9 ml/min; Est GFR (African American) 52.9; Est GFR (Non-African American) 45.6; Globulin 2.9 gm/dl (2.5-4.0); Potassium 4.3 mmol/L (3.5-5.1); Total Protein 5.1 gm/dl (6.4-8.2)
[2019-03-19] MEDS: CHECK FENTANYL PATCH PLACEMENT SCH ×3 (08:04→22:50)
[2019-03-19] MEDS: PANTOprazole 40 MG TAB PO SCH ×2 (08:04→20:53)
[2019-03-19] MEDS: ARTIFICIAL TEARS OP SCH ×2 (08:05→20:52)
[2019-03-19] MEDS: predniSONE 20 MG TAB PO SCH (08:05)
[2019-03-19] MEDS: RIFAXIMIN 550 MG TABLET PO SCH ×2 (08:06→20:53)
[2019-03-19] MEDS: PENTOXIFYLLINE 400MG EXT REL TAB PO SCH ×2 (08:06→20:53)
[2019-03-19] MEDS: SPIRONOLACTONE 25 MG TAB PO SCH (08:06)
[2019-03-19] MEDS: LACTULOSE SYRUP 20 GM/30 ML UDC PO SCH ×2 (08:07→20:52)
[2019-03-19] MEDS: FLUOXETINE HCL 20 MG CAP PO SCH (08:07)
[2019-03-19] MEDS: INSULIN GLARGINE SOLOSTAR 100 UNITS/ML 3 ML PEN SC SCH ×2 (08:11→20:54)
[2019-03-19] MEDS: INSULIN ASPART 100 UNITS/ML 3 ML PEN SC SCH ×4 (08:12→20:54)
[2019-03-19] MEDS: ONDANSETRON INJ 2 MG/ML 2 ML VIAL IV PRN ×2 (08:16→14:21)
--- NOTE | 2019-03-19 10:41 | Nephrology Progress Note ---
Date of Service March 19, 2019 Assessment & Plan (1) ARF (acute renal failure): -- LETTY likely related to SBP, intravascular volume contraction, anemia and relative hypotension. Urine studies consistent with some component or prerenal physiology or HRS. Renal US did not demonstrate obstruction -- hold spironolactone for now, start on gentle IV hydration with normal saline --increase protein intake to improve free water clearance -- Document I/O's -- Repeat metabolic profile tomorrow AM (2) Acute bacterial peritonitis: -- On IV Cipro. Dose is currently appropriate for level of kidney function (3) Anemia: -- Agree w/ transfusion to maintain Hgb > 8.0 (4) Gross hematuria: -- Requested Verma to be replaced until bleeding resolved -- May manually irrigate as needed Subjective Johnny Was seen and examined in his room this morning overall he is feeling about the same. Appetite has been poor. Denies significant abdominal pain or distension. No shortness of breath or chest pain. Urine output has dropped. Renal function slightly worsened. Physical Exam Constitutional: WD/WN, vitals as above Respiratory: normal respiratory effort, lungs clear to auscultation Cardiovascular: Rate/Rhythm: regular rate and regular rhythm Gastrointestinal (Abdomen): Inspection/Auscultation: normal bowel sounds Percussion/Palpation: abdomen soft Neurologic: moves all extremities and awake Psychiatric: A+Ox3, euthymic affect Results & Data Vital Signs (Past 12 Hours) Vital Signs Temp Pulse Resp BP Pulse Ox 03/19/19 07:26 36.7 C 91 H 17 112/72 95 03/18/19 23:54 36.5 C 90 18 111/68 97
[2019-03-19] MEDS: AMPICILLIN/SULBACTAM SOD 3,000 MG in 0.9 % SODIUM CHLORIDE 100 ML IV SCH ×2 (14:28→18:39)
[2019-03-19] MEDS: DICLOFENAC SOD 1% GEL 100 GM TUBE EXT PRN (14:29)
[2019-03-19] MEDS ORDERED: METOCLOPRAMIDE HCL INJ 5 MG/ML 2 ML VIAL IV PRN (15:07)
[2019-03-19] MEDS ORDERED: DiphenhydrAMINE HCL 50 MG/ML VIAL IV PRN (15:08)
[2019-03-19] MEDS ORDERED: SODIUM CHLORIDE 0.9% 500 ML IV SCH (17:45)
[2019-03-19 19:02] LABS: Appearance Urine Turbid (Clear); Bacteria Urine Automated Negative (Negative); Bilirubin Urine Negative (Negative); Blood Urine 3+ (Negative); Color Urine Orange; Epithelial Cell Urine Auto >30 /lpf (0-5); Glucose Urine UA Negative (Negative); Ketones Urine Negative (Negative); Leukocyte Esterase Urine 2+ (Negative); Nitrite Urine Negative (Negative); Protein Urine Negative (Negative); Specific Gravity Urine 1.023 (1.000-1.030); Urobilinogen Urine Negative (Negative); WBC Urine Automated >30 /hpf (0-5)
[2019-03-19 20:03] LABS: RBC Urine Automated >30 /hpf (0-4)
[2019-03-19] MEDS: LORATADINE 10 MG TAB PO SCH (20:53)
[2019-03-19] MEDS: ATORVASTATIN 10 MG TAB PO SCH (20:53)
--- NOTE | 2019-03-19 21:33 | Hospitalist Progress Note ---
Date of Service March 19, 2019 Assessment & Plan (1) SBP (spontaneous bacterial peritonitis): cell counts at admission s/p diagnostic paracentesis c/w SBP. has remained on cipro IV bid since admission w/o significant general improvement. today is day #7 of abx. culture with gram positive rods. this could potentially represent listeria (if the GPR is truly pathogenic). if not listeria then the GPR would probably be a contaminant. either way, since he is not improving on a grand scale, will change cipro to Unasyn since cipro would not cover listeria or other GPR that well. after adequate treatment of this episode of SBP he likely will need cipro as SBP prophylaxis thereafter. since he continues with numerous GI complaints will send u/a and urine cx to ensure no concomitant UTI. (2) Gross hematuria: resolved sal[place] is in place urology following plan- voiding trial in the next few days outpatient cystoscopy (3) CKD stage 3 due to type 2 diabetes mellitus: creatinine now back to baseline following an acute kidney injury (4) LETTY (acute kidney injury): resolved Peak Cr was 2.1 now 1.5 (5) Hyponatremia: acute/chronic TSH, cortisol wnl Urine Na very low consistent with salt depletion lasix currently on hold uric acid is normal which would argue against SIADH remains on aldactone daily patient looks intravascularly dry -- patient hardly drinking and eating very poorly NS x 500cc over 10 hours repeat BMP am (6) Sarcoidosis: long-standing, steroid-dependent (prednisone 20mg/day) (7) Cirrhosis: 2nd to sarcoid, medication toxicity, etc no prior h/o etoh cont lactulose and rifaximin for hepatic encephalopathy prophylaxis treat SBP as above lasix on hold aldactone continues appreciate GI consult & recs cont PPI twice daily (h/o multiple upper GI issues) (8) DM type 2 (diabetes mellitus, type 2): BSGs acceptable at this time cont lantus cont novolog (9) Lumbar disc herniation with radiculopathy: with resulting acquired paraplegic type state patient no longer walks also with chronic back pain 2nd to this issue cont fentanyl patch 25mcg (10) 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 follow with daily CBC (11) Cognitive impairment: at baseline appears to mild cognitive impairment based on 's account no change today in [place] (12) DVT prophylaxis: SCDs chemical means contraindicated due to low platelets may need SNF for rehab since he normally can stand, pivot and transfer for at home he can't even do these things right now updated at bedside Subjective pt's reports very poor appetite continues with nausea also he has had vague abdominal discomfort he was confused during the visit he c/o fatigue Review of Systems Constitutional: + fatigue and + anorexia; no fever and no chills Respiratory: no cough and no dyspnea Cardiovascular: no chest pain Physical Exam Constitutional: + ill appearing and + altered mental status; no acute distress Eyes: + anicteric sclerae ENMT: external ear and nose normal, oropharynx normal Respiratory: no respiratory distress Auscultation: + diminished lung sounds (bases); no crackles, no rhonchi and no wheezes Cardiovascular: Rate/Rhythm: regular rate and regular rhythm Heart Sounds: normal S1, normal S2 and + murmur (1/6 LSB) Vessels: posterior tibial pulses present and dorsalis pedis pulses present; no JVD Extremities: + pedal edema (1-2 + b/l) Gastrointestinal (Abdomen): protuberant abdomen with large hernia LLQ; this hernia is still reducible. he has focal abdominal swelling that comes off the left flank - unchanged. probable generalized ascites - unchanged from yesterday's exam. no focal tenderness. mild dependent erythema of lower abdominal wall. Psychiatric: Orientation: alert; + not oriented x 3 (unable to give good history) Results & Data Vital Signs (Past 12 Hours) Vital Signs Temp Pulse Resp BP Pulse Ox 03/19/19 16:00 36.8 C 97 H 20 116/70 96 Laboratory Results Laboratory Results - last 24 hr 03/19/19 03/19/19 03/19/19 07:05 07:05 07:05 WBC 7.20 RBC 3.90 L Hgb 9.6 L Hct 28.7 L MCV 73.6 L MCH 24.6 L MCHC 33.4 RDW Std Deviation 58.6 H RDW Coeff of Curt 21.7 H Plt Count 53 L Platelet Estimate Decreased Sodium 128 L Potassium 4.3 Chloride 98 Carbon Dioxide 21 Anion Gap 9.0 BUN 32 H Creatinine 1.56 H Est Cr Clr Drug Dosing 44.9 Est GFR ( Amer) 52.9 Est GFR (Non-Af Amer) 45.6 BUN/Creatinine Ratio 20.3 H Glucose 147 H POC Glucose Calcium 8.2 L Total Bilirubin 2.4 H AST 44 H ALT 26 Alkaline Phosphatase 287 H Ammonia 37.0 H Total Protein 5.1 L Albumin 2.2 L Globulin 2.9 Albumin/Globulin Ratio 0.8 L Specimen Hemolysis Urine Color Urine Appearance Urine pH Ur Specific [place] Urine Protein Urine Glucose (UA) Urine Ketones Urine Blood Urine Nitrite Urine Bilirubin Urine Urobilinogen Ur Leukocyte Esterase Urine WBC (Auto) Urine RBC (Auto) U Hyaline Cast (Auto) U Epithel Cells (Auto) Urine Bacteria (Auto) Urine Yeast 03/19/19 03/19/19 03/19/19 07:39 11:54 16:36 WBC RBC Hgb Hct MCV MCH MCHC RDW Std Deviation RDW Coeff of Curt Plt Count Platelet Estimate Sodium Potassium Chloride Carbon Dioxide Anion Gap BUN Creatinine Est Cr Clr Drug Dosing Est GFR ( Amer) Est GFR (Non-Af Amer) BUN/Creatinine Ratio Glucose POC Glucose 149 H 101 H 126 H Calcium Total Bilirubin AST ALT Alkaline Phosphatase Ammonia Total Protein Albumin Globulin Albumin/Globulin Ratio Specimen Hemolysis Urine Color Urine Appearance Urine pH Ur Specific [place] Urine Protein Urine Glucose (UA) Urine Ketones Urine Blood Urine Nitrite Urine Bilirubin Urine Urobilinogen Ur Leukocyte Esterase Urine WBC (Auto) Urine RBC (Auto) U Hyaline Cast (Auto) U Epithel Cells (Auto) Urine Bacteria (Auto) Urine Yeast 03/19/19 03/19/19 18:37 20:06 WBC RBC Hgb Hct MCV MCH MCHC RDW Std Deviation RDW Coeff of Curt Plt Count Platelet Estimate Sodium Potassium Chloride Carbon Dioxide Anion Gap BUN Creatinine Est Cr Clr Drug Dosing Est GFR ( Amer) Est GFR (Non-Af Amer) BUN/Creatinine Ratio Glucose POC Glucose 114 H Calcium Total Bilirubin AST ALT Alkaline Phosphatase Ammonia Total Protein Albumin Globulin Albumin/Globulin Ratio Specimen Hemolysis Urine Color [place] Urine Appearance Turbid H Urine pH 5.0 Ur Specific [place] 1.023 Urine Protein Negative Urine Glucose (UA) Negative Urine Ketones Negative Urine Blood 3+ H Urine Nitrite Negative Urine Bilirubin Negative Urine Urobilinogen Negative Ur Leukocyte Esterase 2+ H Urine WBC (Auto) >30 H Urine RBC (Auto) >30 H U Hyaline Cast (Auto) 1-5 U Epithel Cells (Auto) >30 H Urine Bacteria (Auto) Negative Urine Yeast Budding H (1) DM type 2 (diabetes mellitus, type 2) Diabetes mellitus complication status: without complication Diabetes mellitus alf insulin use: with alf use Qualified Code(s): E11.9 - Type 2 diabetes mellitus without complications; Z79.4 - penitentiary (current) use of insulin (2) Cirrhosis Ascites presence: with ascites Hepatic cirrhosis type: alcoholic cirrhosis Qualified Code(s): K70.31 - Alcoholic cirrhosis of liver with ascites
[2019-03-20] MEDS: AMPICILLIN/SULBACTAM SOD 3,000 MG in 0.9 % SODIUM CHLORIDE 100 ML IV SCH ×4 (00:48→19:33)
[2019-03-20 06:47] LABS: Mean Corpuscular Hgb Conc 33.1 g/dL (32-36)
[2019-03-20 06:59] LABS: Hematocrit (blood only) 31.4 % (42-52); Hemoglobin 10.4 g/dL (14.0-18.0); Mean Corpuscular Volume 74.2 fL (80-100); RDW Coefficient of Variation 22.3 % (11.5-14.5); RDW Standard Deviation 59.8 fL (36.4-46.3); Red Blood Count 4.23 M/uL (4.7-6.1); White Blood Count 8.24 K/uL (4.8-10.8)
[2019-03-20 07:18] LABS: BUN Creatinine Ratio 19.9 (10-20); Calcium 8.3 mg/dl (8.5-10.1); Creatinine Clr Calc Pharmacy 42.7 ml/min; Est GFR (African American) 49.8; Est GFR (Non-African American) 42.9; Platelet Count 54 K/uL (130-400); Potassium 4.4 mmol/L (3.5-5.1)
[2019-03-20 07:20] LABS: Anisocytosis Present; Echinocytes 2+; Immature Granulocytes # (auto) 0.05 K/uL (0.00-0.02); Immature Granulocytes % (auto) 0.6 %; Lymphocytes # (auto) 0.47 K/uL (1.2-3.4); Lymphocytes % (auto) 5.7 %; Monocytes # (auto) 0.53 K/uL (0.11-0.59); Monocytes % (auto) 6.4 %; Neutrophils # (auto) 7.19 K/uL (1.4-6.5); Neutrophils % (auto) 87.3 %; Ovalocytes 1+; Platelet Estimate Decreased (Normal)
[2019-03-20] MEDS: RIFAXIMIN 550 MG TABLET PO SCH ×2 (08:01→21:29)
[2019-03-20] MEDS: PENTOXIFYLLINE 400MG EXT REL TAB PO SCH ×2 (08:01→21:29)
[2019-03-20] MEDS: FLUOXETINE HCL 20 MG CAP PO SCH (08:01)
[2019-03-20] MEDS: PANTOprazole 40 MG TAB PO SCH ×2 (08:01→21:28)
[2019-03-20] MEDS: predniSONE 20 MG TAB PO SCH ×2 (08:01→21:28)
[2019-03-20] MEDS: SPIRONOLACTONE 25 MG TAB PO SCH (08:02)
[2019-03-20] MEDS: CHECK FENTANYL PATCH PLACEMENT SCH ×3 (08:02→23:25)
[2019-03-20] MEDS: LACTULOSE SYRUP 20 GM/30 ML UDC PO SCH ×2 (08:02→21:24)
[2019-03-20] MEDS: ARTIFICIAL TEARS OP SCH ×2 (08:02→21:24)
[2019-03-20] MEDS: INSULIN GLARGINE SOLOSTAR 100 UNITS/ML 3 ML PEN SC SCH ×2 (08:55→21:26)
[2019-03-20] MEDS: INSULIN ASPART 100 UNITS/ML 3 ML PEN SC SCH ×4 (08:55→21:27)
--- NOTE | 2019-03-20 10:17 | Nephrology Progress Note ---
Date of Service March 20, 2019 Assessment & Plan (1) ARF (acute renal failure): -- LETTY likely related to SBP, intravascular volume contraction, anemia and relative hypotension. Urine studies consistent with some component or prerenal physiology or HRS. Renal US did not demonstrate obstruction -- patient clinically seems volume depleted however significant worsening of scrotal edema and abdominal ascites over last 24 hours --start on Bumex 1 milligram IV twice a day however need to monitor renal function closely as there is risk for further worsening of renal function --increase protein intake to improve free water clearance --it would be important to document intake and output however patient has incontinence and since Verma catheter is now out, he has not been having his output documented. --if scrotal edema improves, will try Verma catheter again Will follow (2) Acute bacterial peritonitis: -- On IV Cipro. Dose is currently appropriate for level of kidney function (3) Anemia: -- Agree w/ transfusion to maintain Hgb > 8.0 (4) Gross hematuria: -- Requested Verma to be replaced until bleeding resolved -- May manually irrigate as needed Subjective Orlando Was seen and examined in his room this morning. Overall he continues to feel poorly, appetite remains poor. Verma catheter was removed last night due to worsening scrotal edema. Ascites has been increasing. Renal function continues to worsen slowly. Blood pressure remained stable urine output has been low over last 2 days. Physical Exam Constitutional: WD/WN, vitals as above Respiratory: normal respiratory effort, lungs clear to auscultation Cardiovascular: Rate/Rhythm: regular rate and regular rhythm Gastrointestinal (Abdomen): Inspection/Auscultation: normal bowel sounds Percussion/Palpation: abdomen soft Neurologic: moves all extremities and awake Psychiatric: A+Ox3, euthymic affect Results & Data Vital Signs (Past 12 Hours) Vital Signs Temp Pulse Resp BP Pulse Ox 03/20/19 07:27 36.5 C 91 H 16 135/79 97 03/20/19 00:20 37.2 C 121 H 16 124/71 94 03/19/19 23:20 37.6 C H 136 H 18 117/64 93
[2019-03-20] MEDS: BUMETANIDE 1 MG in SYRINGE 0 ML IV SCH ×2 (10:21→21:25)
[2019-03-20] MEDS ORDERED: OXYCODONE HCL IR 5 MG TAB (IMMEDIATE RELEASE) ONE (14:09)
[2019-03-20] MEDS: ONDANSETRON INJ 2 MG/ML 2 ML VIAL IV PRN (14:19)
--- NOTE | 2019-03-20 14:44 | Gastroenterology Progress Note ---
Date of Service March 20, 2019 Assessment & Plan (1) SBP (spontaneous bacterial peritonitis): (1) Acute bacterial peritonitis: SBP--cytology neg, Cutibacterium growing out could be real or skin contaminant. Repeat paracentesis to look at cell count could be helpful although with now what looks like cellulitis over most likely areas of access makes that a difficult decision ( do not want to seed peritoneum). Continue new Abx Zosyn for now. Discussed with DR Nevarez will see how the new abx works on cellulitis and hold off paracentesis. Cellulitis--appears to be over lower abdomen--Discsussed with DR Nevarez and he will decide if any additional abx coverage besides Zosyn needed. abd pain--still present can be RLQ and LLQ LETTY ---appreciate renal consult confusion-improved off narcotic, anemia-stable, heme neg stool this admit so no gross GI bleeding. Subjective cc f/u abd pain, SBP HPI with patient. He is continuing to have nausea with poor appetite and also has abd pain. Abx changed to Zosyn because of peritoneal fluid growing out Cutibacterium acnes. Review of Systems Respiratory: no dyspnea Cardiovascular: no chest pain Physical Exam Constitutional: WD/WN, vitals as above Respiratory: normal respiratory effort, lungs clear to auscultation Cardiovascular: Heart Sounds: normal, physiologic split S2 Gastrointestinal (Abdomen): abdomen moderate distension but not tense, pos bs, some RLQ guarding. Skin lower half of abdomen erythematous. Psychiatric: A+Ox3, euthymic affect Results & Data Vital Signs (Past 12 Hours) Vital Signs Temp Pulse Resp BP Pulse Ox 03/20/19 07:27 36.5 C 91 H 16 135/79 97
--- NOTE | 2019-03-20 14:51 | Gastroenterology Progress Note ---
Date of Service March 20, 2019 Assessment & Plan (1) Acute bacterial peritonitis: SBP--cytology neg, Cutibacterium growing out could be real or skin contaminant. Repeat paracentesis to look at cell count could be helpful although with now what looks like cellulitis over most likely areas of access makes that a difficult decision ( do not want to seed peritoneum). Will discuss with DR Nevarez. Continue new Abx Zosyn for now. Cellulitis--appears to be over lower abdomen--defer to Dr Nevarez. Pt is now on different abx than the Cipro he was started on. abd pain--still present can be RLQ and LLQ LETTY ---appreciate renal consult confusion-improved off narcotic, anemia-stable, heme neg stool this admit so no gross GI bleeding. Results & Data Vital Signs (Past 12 Hours) Vital Signs Temp Pulse Resp BP Pulse Ox 03/20/19 07:27 36.5 C 91 H 16 135/79 97
[2019-03-20] MEDS ORDERED: DAPTOmycin 500 MG VIAL IV SCH (16:30)
[2019-03-20] MEDS: DAPTOmycin 250 MG in SYRINGE 0 ML IV SCH (18:07)
[2019-03-20] MEDS: LORATADINE 10 MG TAB PO SCH (21:25)
--- NOTE | 2019-03-20 21:31 | Hospitalist Progress Note ---
Date of Service March 20, 2019 Assessment & Plan (1) Abdominal wall cellulitis: I agree w/ pt's family and Dr Osborne that it appears he has developed some element of abd wall cellulitis of the left upper quadrant, left flank, and to a lesser degree the LLQ. I believe his paracentesis was in this region so it is possible he seeded from the procedure but I could not say that definitively. He is on unasyn IV for SBP; add daptomycin for MRSA coverage. ID consultation requested. Present on Admission?: No (2) SBP (spontaneous bacterial peritonitis): cell counts at admission s/p diagnostic paracentesis consistent with SBP. was on cipro IV since admission w/o significant general improvement. culture grew cutibacterium acnes (gram positive noel). his cipro was changed to IV unasyn yesterday. difficult to say if this pathogen is truly pathogenic or contaminant but given how immunocompromised he is (chronic prednisone use, etc) would consider pathogenic. agree w/ Dr Osborne a repeat diagnostic paracentesis would be helpful to see if WBC count is decreasing and thereby signifying his SBP is improving. after adequate treatment of this episode of SBP he likely will need cipro as SBP prophylaxis thereafter. (3) Candidal UTI (urinary tract infection): the pt's urine cx is growing yeast. this is from cath specimen. the salinas is only a few days old. by history he has had fungemia in the past. typically this would not need Rx but in light of immunocompromised status and his abdominal symptoms this could represent true infection of note - salinas was removed overnight. I have asked Dr Banks to weight in on whether this should be treated and if so which antifungal is safe in the context of his cirrhosis. (4) Gross hematuria: resolved salinas removed overnight voiding ok outpatient cystoscopy by urology (5) CKD stage 3 due to type 2 diabetes mellitus: creatinine at baseline (6) LETTY (acute kidney injury): resolved Peak Cr was 2.1 now 1.5-1.6 (7) Hyponatremia: acute/chronic TSH, cortisol wnl Urine Na very low consistent with salt depletion lasix currently on hold uric acid is normal which would argue against SIADH remains on aldactone daily Na improved w/ 500cc of NS overnight respiratory status stable defer management to nephrology (8) Sarcoidosis: long-standing, steroid-dependent (prednisone 20mg/day) in light of infections will give stress dose steroids and increase to 20mg BID (9) Cirrhosis: 2nd to sarcoid, medication toxicity, etc no prior h/o etoh cont lactulose and rifaximin for hepatic encephalopathy prophylaxis treat SBP as above lasix on hold aldactone continues appreciate GI consult & recs cont PPI twice daily (h/o multiple upper GI issues) (10) DM type 2 (diabetes mellitus, type 2): BSGs acceptable at this time cont lantus cont novolog (11) Lumbar disc herniation with radiculopathy: with resulting acquired paraplegic type state patient no longer walks also with chronic back pain 2nd to this issue cont fentanyl patch 25mcg oxycodone prn cautiously (12) 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 due to SIRS from infections? could he have had a PE in midst of prolonged bedbound status and no chemical DVT proph? repeat EKG today if tachycardia persists then dopplers of legs (15) DVT prophylaxis: SCDs chemical means contraindicated due to low platelets may need SNF for rehab since he normally can stand, pivot and transfer for at home he can't even do these things right now and daughter updated at bedside I am concerned about the pt's overall poor progress Subjective patient still does not feel well. no appetite. off/on nausea. no vomiting however. very tired/fatigued. and abdominal pain returned today - RLQ. back pain - as usual - still present. there is concern of worsening abdominal wall erythema above baseline. Review of Systems Constitutional: + fatigue and + anorexia; no fever and no chills Respiratory: no cough and no dyspnea Cardiovascular: no chest pain and no palpitations Gastrointestinal: as per Subjective / HPI and + abdominal pain Physical Exam Constitutional: + ill appearing and + altered mental status; no acute distress Eyes: + anicteric sclerae ENMT: Mouth: + dry oral mucous membranes Respiratory: no respiratory distress Auscultation: + diminished lung sounds (bases); no crackles, no rhonchi and no wheezes Cardiovascular: Rate/Rhythm: regular rhythm and + tachycardic Heart Sounds: normal S1, normal S2 and + murmur (1/6 LSB) Vessels: posterior tibial pulses present and dorsalis pedis pulses present; no JVD Extremities: + pedal edema (1-2 + b/l) Gastrointestinal (Abdomen): Inspection/Auscultation: + abdomen distended (with ascites), + abdominal wall ecchymosis, + abdominal edema (left flank) and + v isible herniation (large, LLQ) Percussion/Palpation: + abdomen tender (RLQ); no hepatomegaly Skin: abdominal wall erythema left flank and LUQ/LLQ; on his large hernia in the LLQ there is chronic hyperpigmentation but scant erythema. there is warmth over the erythematous areas in the LUQ and left flank. oddly he is NOT tender over any of these areas despite the complaint of abdominal pain. Psychiatric: Orientation: alert; + not oriented x 3 (unable to give good history) Results & Data Vital Signs (Past 12 Hours) Vital Signs Temp Pulse Resp BP Pulse Ox 03/20/19 15:43 36.7 C 111 H 18 130/87 96 Laboratory Results Laboratory Results - last 24 hr 03/20/19 03/20/19 03/20/19 00:21 00:39 00:41 WBC RBC Hgb Hct MCV MCH MCHC RDW Std Deviation RDW Coeff of Curt Plt Count Immature Gran % (Auto) Neut % (Auto) Lymph % (Auto) Sequoyah % (Auto) Eos % (Auto) Baso % (Auto) Immature Gran # (Auto) Neut # (Auto) Lymph # (Auto) [place]ah # (Auto) Eos # (Auto) Baso # (Auto) Platelet Estimate Anisocytosis Ovalocytes Echinocytes Sodium Potassium Chloride Carbon Dioxide Anion Gap BUN Creatinine Est Cr Clr Drug Dosing Est GFR ( Amer) Est GFR (Non-Af Amer) BUN/Creatinine Ratio Glucose POC Glucose 91 89 92 Calcium 03/20/19 03/20/19 03/20/19 06:36 06:36 07:51 WBC 8.24 RBC 4.23 L Hgb 10.4 L Hct 31.4 L MCV 74.2 L MCH 24.6 L MCHC 33.1 RDW Std Deviation 59.8 H RDW Coeff of Curt 22.3 H Plt Count 54 L Immature Gran % (Auto) 0.6 Neut % (Auto) 87.3 Lymph % (Auto) 5.7 Sequoyah % (Auto) 6.4 Eos % (Auto) 0.0 Baso % (Auto) 0.0 Immature Gran # (Auto) 0.05 H Neut # (Auto) 7.19 H Lymph # (Auto) 0.47 L Sequ[place]ah # (Auto) 0.53 Eos # (Auto) 0.00 Baso # (Auto) 0.00 Platelet Estimate Decreased Anisocytosis Present Ovalocytes 1+ Echinocytes 2+ Sodium 130 L Potassium 4.4 Chloride 100 Carbon Dioxide 21 Anion Gap 9.0 BUN 33 H Creatinine 1.64 H Est Cr Clr Drug Dosing 42.7 Est GFR ( Amer) 49.8 Est GFR (Non-Af Amer) 42.9 BUN/Creatinine Ratio 19.9 Glucose 106 H POC Glucose 114 H Calcium 8.3 L 03/20/19 03/20/19 03/20/19 11:52 16:22 20:09 WBC RBC Hgb Hct MCV MCH MCHC RDW Std Deviation RDW Coeff of Curt Plt Count Immature Gran % (Auto) Neut % (Auto) Lymph % (Auto) [place] % (Auto) Eos % (Auto) Baso % (Auto) Immature Gran # (Auto) Neut # (Auto) Lymph # (Auto) [place]ah # (Auto) Eos # (Auto) Baso # (Auto) Platelet Estimate Anisocytosis Ovalocytes Echinocytes Sodium Potassium Chloride Carbon Dioxide Anion Gap BUN Creatinine Est Cr Clr Drug Dosing Est GFR ( Amer) Est GFR (Non-Af Amer) BUN/Creatinine Ratio Glucose POC Glucose 140 H 172 H 191 H Calcium (1) DM type 2 (diabetes mellitus, type 2) Diabetes mellitus complication status: without complication Diabetes mellitus mcc insulin use: with mcc use Qualified Code(s): E11.9 - Type 2 diabetes mellitus without complications; Z79.4 - care home (current) use of insulin (2) Cirrhosis Ascites presence: with ascites Hepatic cirrhosis type: alcoholic cirrhosis Qualified Code(s): K70.31 - Alcoholic cirrhosis of liver with ascites
[2019-03-20] MEDS: ATORVASTATIN 10 MG TAB PO SCH (21:35)
[2019-03-20] MEDS: OXYCODONE HCL IR 5 MG TAB (IMMEDIATE RELEASE) PO PRN (23:25)
[2019-03-21] MEDS: AMPICILLIN/SULBACTAM SOD 3,000 MG in 0.9 % SODIUM CHLORIDE 100 ML IV SCH ×4 (00:39→19:32)
[2019-03-21 07:34] LABS: Hematocrit (blood only) 30.6 % (42-52); Hemoglobin 10.1 g/dL (14.0-18.0); Mean Corpuscular Volume 73.7 fL (80-100); RDW Coefficient of Variation 22.8 % (11.5-14.5); RDW Standard Deviation 60.6 fL (36.4-46.3); Red Blood Count 4.15 M/uL (4.7-6.1)
[2019-03-21 07:43] LABS: INR 1.3 (0.9-1.1); Prothrombin Time 13.5 Seconds (9.0-12.0)
[2019-03-21 07:52] LABS: Platelet Count 62 K/uL (130-400)
[2019-03-21 07:54] LABS: Basophils # (auto) 0.01 K/uL (0-0.2); Basophils % (auto) 0.1 %; Echinocytes 2+; Eosinophils # (auto) 0.03 K/uL (0-0.5); Eosinophils % (auto) 0.3 %; Immature Granulocytes # (auto) 0.07 K/uL (0.00-0.02); Immature Granulocytes % (auto) 0.7 %; Lymphocytes # (auto) 0.54 K/uL (1.2-3.4); Lymphocytes % (auto) 5.1 %; Monocytes # (auto) 0.68 K/uL (0.11-0.59); Monocytes % (auto) 6.4 %; Neutrophils # (auto) 9.27 K/uL (1.4-6.5); Neutrophils % (auto) 87.4 %; Ovalocytes 1+; Platelet Estimate Decreased (Normal)
[2019-03-21 08:09] LABS: Albumin Level 2.2 gm/dl (3.4-5.0); BUN Creatinine Ratio 20.1 (10-20); Calcium 8.3 mg/dl (8.5-10.1); Est GFR (African American) 50.9; Est GFR (Non-African American) 43.9; Potassium 3.9 mmol/L (3.5-5.1)
[2019-03-21 08:12] LABS: Albumin Globulin Ratio 0.7 (0.9-2); Bilirubin,Total 2.6 mg/dl (0.2-1); Globulin 3.1 gm/dl (2.5-4.0); Total Protein 5.3 gm/dl (6.4-8.2)
[2019-03-21] MEDS: SPIRONOLACTONE 25 MG TAB PO SCH (08:35)
[2019-03-21] MEDS: FLUOXETINE HCL 20 MG CAP PO SCH (08:35)
[2019-03-21] MEDS: RIFAXIMIN 550 MG TABLET PO SCH ×2 (08:35→21:10)
[2019-03-21] MEDS: PANTOprazole 40 MG TAB PO SCH ×2 (08:35→21:09)
[2019-03-21] MEDS: BUMETANIDE 1 MG in SYRINGE 0 ML IV SCH ×2 (08:35→21:08)
[2019-03-21] MEDS: PENTOXIFYLLINE 400MG EXT REL TAB PO SCH ×2 (08:35→21:11)
[2019-03-21] MEDS: CHECK FENTANYL PATCH PLACEMENT SCH ×2 (08:35→16:07)
[2019-03-21] MEDS: LACTULOSE SYRUP 20 GM/30 ML UDC PO SCH ×2 (08:35→21:07)
[2019-03-21] MEDS: ARTIFICIAL TEARS OP SCH ×2 (08:36→21:07)
[2019-03-21] MEDS: predniSONE 20 MG TAB PO SCH ×2 (08:45→21:09)
[2019-03-21] MEDS: INSULIN GLARGINE SOLOSTAR 100 UNITS/ML 3 ML PEN SC SCH ×2 (09:24→21:13)
[2019-03-21] MEDS: INSULIN ASPART 100 UNITS/ML 3 ML PEN SC SCH ×4 (09:24→21:12)
--- NOTE | 2019-03-21 09:36 | Infectious Disease Consult ---
Date of Consultation March 21, 2019 Assessment & Plan (1) Abdominal wall cellulitis: Patient with what appears to be a developing abdominal wall cellulitis, and agree with the use of Unasyn which should cover the isolate from the peritoneal fluid. Significance of that is unknown since it is known to be a skin contaminant. Patient has had positive urine cultures for Christina glabrata, would require amphotericin B bladder irrigation for 5 days to adequately treat, and would give IV caspofungin at the same time to treat potential renal involvement. Will discuss with all involved. Will follow. (2) Candidal UTI (urinary tract infection): History of Present Illness Reason for Consultation: ? Fungal UTI, SBP, other Attending Physician: Antoni Nvearez History of Present Illness 64-year-old male known to me from previous infectious disease consultation when I treated him for lumbar discitis, who has history of sarcoidosis, cirrhosis, stage III chronic kidney disease, who was initially admitted on March 12 with altered mental status and abdominal pain. He was felt to have possible spontaneous bacterial peritonitis, and underwent paracentesis eventually with finding of abnormal fluid with elevated white blood cell count consistent with peritonitis. Cultures eventually grew Cutibacterium. Over the last 1 to 2 days, patient developed some worsening abdominal pain and was noted to have worsening erythema over the left lower quadrant in the area of paracentesis. He had previously been on Zosyn. Blood cultures have been negative. Pain currently 3 out of 10 in intensity left lower quadrant. Also patient has been found to have abnormal urinalysis and urine culture has grown Christina glabrata. Allergies Allergy/AdvReac Type Severity Reaction Status Date / Time celecoxib Allergy Intermediate HIVES Verified 03/12/19 19:07 Penicillins Allergy Intermediate HIVES Verified 03/12/19 19:07 Home Medications Home Medications Medication Instructions Recorded Confirmed Type acetaminophen 500 mg PO QID PRN 02/22/19 03/12/19 History albuterol sulfate 2 puff INHALATION Q6H PRN 02/22/19 03/12/19 History atorvastatin 10 mg PO HS 02/22/19 03/12/19 History carboxymethylcellulose sodium 1 dose OPHTHALMIC (EYE) BID 02/22/19 03/12/19 History [Refresh Celluvisc] fentanyl [Duragesic] 1 patch TRANSDERMAL Q72H 02/22/19 03/12/19 History fluoxetine 40 mg PO DAILY 02/22/19 03/12/19 History insulin glargine [Lantus U-100 15 unit SUBCUT BID 02/22/19 03/12/19 History Insulin] lactulose 1 dose PO BID 02/22/19 03/12/19 History mometasone 50 mcg INTRANASAL BID PRN 02/22/19 03/12/19 History multivitamin with minerals 1 tab PO DAILY 02/22/19 03/12/19 History pantoprazole 40 mg PO DAILY 02/22/19 03/12/19 History pentoxifylline 400 mg PO BID 02/22/19 03/12/19 History potassium chloride 10 meq PO BID 02/22/19 03/12/19 History prednisone 20 mg PO DAILY 02/22/19 03/12/19 History promethazine 25 mg PO Q6H PRN 02/22/19 03/12/19 History propranolol 5 mg PO QAM 02/22/19 03/12/19 History rifaximin [Xifaxan] 550 mg PO BID 02/22/19 03/12/19 History simethicone 80 - 160 mg PO BID PRN 02/22/19 03/12/19 History spironolactone 50 mg PO DAILY 02/22/19 03/12/19 History sulfamethoxazole-trimethoprim 1 tab PO 3XWK MDD m-w-f 02/22/19 03/12/19 History [Bactrim DS] furosemide 40 mg PO BID 02/26/19 03/12/19 History loratadine 10 mg PO HS 02/26/19 03/12/19 History Patient History Medical History Abdominal pain (Acute) Abscess in epidural space of lumbar spine (Acute) Altered mental status (Acute) Asthma (Acute) Diabetic autonomic neuropathy (Acute) Diarrhea (Acute) Fall in home (Acute) Fever (Acute) Fungemia (Acute) Fusion of spine (Acute) GERD (gastroesophageal reflux disease) (Acute) GI bleed (Acute) Gram negative septicemia (Acute) Hepatic encephalopathy (Acute) Hyperammonemia (Acute) Hyperlipidemia (Acute) Hypertension (Acute) Hypertension (Acute) Hypokalemia (Acute) Hypoxia (Acute) Immunocompromised (Acute) Infection of lumbar spine (Acute) Kidney stones (Acute) Lactic acidosis (Acute) Left leg cellulitis (Acute) Lumbar compression fracture (Acute) Lumbar disc herniation with radiculopathy (Acute) Lumbar stenosis with neurogenic claudication (Acute) Marijuana smoker (Acute) Meningitis (Acute) Obesity (Acute) Open wound of LLQ of abdominal wall w/o penentrat into periton cavity (Acute) Peritonitis (acute) generalized (Acute) Pneumonia (Acute) Post op infection (Acute) Sarcoidosis (Acute) Septal defect (Acute) Sleep apnea (Acute) Tenosynovitis, de Quervain (Acute) Thrombocytopenia (Acute) Vomiting (Acute) Alcoholic cirrhosis Surgical History History of carpal tunnel release (Acute) History of cataract surgery (Acute) History of herniorrhaphy (Acute) History of lithotripsy (Acute) History of repair of rotator cuff (Acute) Family History Father Heart attack Social History Preferred Language: Lithuanian Communication Ability: Effective Analytics Architect Required: No Beliefs That Will Affect Care: None marital status: Current Living Situation: Spouse Other Information That Helps Us Care for You: No Feels Safe at Home: Yes Safety Concerns: Feels Safe At This Time Smoking Status: Former smoker Do You Dip or Chew Tobacco: No Second Hand Exposure: No Hx Alcohol Use: No Hx Substance Use: No Review of Systems Review of Systems: All systems reviewed & are unremarkable except as noted in HPI & below Physical Exam Constitutional: WD/WN, vitals as above comfortable; no acute distress Eyes: PERRL, conjunctivae normal, anicteric sclerae ENMT: external ear and nose normal, oropharynx normal Neck: trachea midline, no thyromegaly neck nontender Respiratory: normal respiratory effort, lungs clear to auscultation normal percussion; does not use accessory muscles Cardiovascular: Rate/Rhythm: regular rate and regular rhythm Heart Sounds: normal S1 and normal S2; no gallop, no murmur and no cardiac rub Vessels: normal peripheral pulses; no JVD Gastrointestinal (Abdomen): Inspection/Auscultation: + abdomen distended Percussion/Palpation: + abdomen tender (Left lower quadrant without rebound or guarding); no hepatomegaly and no abdominal mass Musculoskeletal: no cyanosis or clubbing, extremities motor strength 5/5 Spine: thoracic spine normal to inspection and lumbar spine normal to inspection; no cervical spinal tenderness Skin: no rashes, warm and dry normal turgor Left lower quadrant erythema Neurologic: patellar DTR's 2+ bilat, sensation intact no focal motor deficits Psychiatric: A+Ox3, euthymic affect Orientation: cooperative Lymphatic: no cervical or axillary lymphadenopathy no inguinal lymphadenopathy Results & Data Vital Signs (Past 12 Hours) Vital Signs Temp Pulse Resp BP Pulse Ox 03/21/19 07:36 36.8 C 123 H 22 140/85 96 03/20/19 23:14 37.1 C 117 H 19 124/78 95 Laboratory Results Short CBC 03/21/19 Range/Units 06:29 WBC 10.60 (4.8-10.8) K/uL Hgb 10.1 L (14.0-18.0) g/dL Hct 30.6 L (42-52) % Plt Count 62 L (130-400) K/uL BMP 03/21/19 06:29 Sodium 132 L Potassium 3.9 Chloride 100 Carbon Dioxide 21 BUN 32 H Creatinine 1.61 H Glucose 130 H Calcium 8.3 L Liver Function 03/21/19 Range/Units 06:29 Total Bilirubin 2.6 H (0.2-1) mg/dl AST 37 (15-37) U/L ALT 24 (12-78) U/L Alkaline Phosphatase 316 H (45-117) U/L Albumin 2.2 L (3.4-5.0) gm/dl Diagnostic Findings Microbiology 03/19/19 18:37 Urine,Indwelling Cath Urine Culture - Preliminary Yeast 03/13/19 Unknown Peritoneal Fluid Gram Stain - Final 03/13/19 Unknown Peritoneal Fluid Aerobic and Anaerobic Culture - Final Cutibacterium (Propioni) acnes 03/12/19 20:44 Blood Blood Culture - Final No growth 03/12/19 20:31 Blood Blood Culture - Final No growth 03/13/19 Unknown Peritoneal Fluid Acid Fast Bacilli Smear - Final 03/13/19 Unknown Peritoneal Fluid Acid Fast Bacilli Culture - Preliminary No Acid-Fast Bacilli Isolated - Report 1, Ad ditional Report to Follow. ABDOMEN AND PELVIS CT WITHOUT CONTRAST CT DOSE: 885.08 mGy.cm HISTORY: Acute generalized abdominal pain with history of cirrhotic liver disease and recurrent ascites abdominal pain TECHNIQUE: Multiaxial CT images of the abdomen and pelvis were performed without contrast. A dose lowering technique was utilized adhering to the principles of ALARA. COMPARISON STUDY: CT abdomen and pelvis 02/26/2019 FINDINGS: Trace left pleural effusion. Subsegmental bibasilar atelectasis/scarring. Calcified bilateral hilar lymph nodes. Imaged inferior cardiac chambers are mildly enlarged with coronary arterial calcifications. Graft of aortic valve noted. Device noted about the intra-atrial septum. No pneumatosis or pneumoperitoneum identified. Cirrhotic morphology of the liver with moderate intra-abdominal and intrapelvic ascites. Loculated fluid collection about the lateral abdominal wall is unchanged measuring approximately 17.8 x 9.2 x 21.2 cm. This is contiguous with the abdominal cavity and filled with ascites. Scattered calcifications of the gallbladder wall with mild gallbladder wall thickening and partial distention. No biliary ductal dilation identified. Splenomegaly. Scattered parenchymal calcifications of the pancreas with mild generalized pancreatic atrophy. And adrenal glands appear unremarkable. 6 mm calcification of the interpolar left kidney suggests a nonobstructing calculus. No ureteral calculi or obstructive uropathy identified. Focus of air noted about the nondependent urinary bladder. Prostate is unremarkable. Calcification of the abdominal aorta without aneurysm. No new adenopathy. There is mild wall thickening noted about the gastric antrum which may be secondary to partial distention. There is no small bowel obstruction. Small right inguinal hernia. Mild colonic diverticulosis without definite CT evidence of acute diverticulitis. There is asymmetric mesenteric stranding noted about the abdominal left upper quadrant and left pericolic gutter. No significant wall thickening of the adjacent large bowel. Visualized appendix appears noninflamed. Calcifications about the left internal canal likely on a postsurgical basis. Mild generalized body wall edema. Subacute healing fractures about the anterolateral left sixth through 11th ribs without significant displacement. Demineralized appearance of the bones. Extensive postsurgical changes of the lumbar spine redemonstrated. Remote compression deformities redemonstrated throughout the lumbar spine which also appear unchanged. IMPRESSION: 1. Cirrhotic liver disease with moderate abdominal pelvic ascites which includes loculated ascites about the left anterolateral abdominal wall, generally unchanged from comparison. 2. Asymmetric mesenteric stranding about the abdominal left upper quadrant and left pericolic gutter may also be related to underlying cirrhosis with mesenteric edema. No significant bowel wall thickening to suggest associated colitis. Correlate clinically. 3. Partial distention of the gallbladder with mild wall thickening and gallbladder wall calcifications, unchanged. 4. No bowel obstruction. 5. Splenomegaly. 6. Focus of air noted within the urinary bladder lumen may reflect recent instrumentation or gas forming organism. Correlate with urinalysis. 7. Multiple healing subacute left-sided rib fractures redemonstrated. 8. Additional findings as above. Electronically signed by: Christian Dia M.D. 03/17/2019 12:57 PM Dictated: 03/17/19 1245
--- NOTE | 2019-03-21 10:01 | Ultrasound Report ---
ULTRASOUND BILATERAL LOWER EXTREMITY VENOUS CLINICAL HISTORY: Lower extremity edema. COMPARISON STUDY: Bilateral lower extremity venous ultrasound dated 11/12/2018. TECHNIQUE: Real-time, grayscale, and color Doppler sonography of the deep veins of the right and left lower extremity was performed from the inguinal crease to the calf. Compression and augmentation wer e utilized. FINDINGS: There is no sonographic evidence of deep venous thrombosis identified in the right or left lower extremity. The common femoral, superficial femoral, and popliteal veins are patent and normally compressible bilaterally. The greater saphenous vein and the profunda femoris vein at the junction w ith the common femoral vein are clear in both legs. The visualized calf veins are patent bilaterally. Soft tissue edema is noted in both legs. IMPRESSION: There is no sonographic evidence of deep venous thrombosis identified in the right or lef t lower extremity. Electronically signed by: Gianni Hewitt M.D. 03/21/2019 10:00 AM
--- NOTE | 2019-03-21 11:17 | Nephrology Progress Note ---
Date of Service March 21, 2019 Assessment & Plan (1) LETTY (acute kidney injury): LETTY likely related to SBP, intravascular volume contraction, anemia and relative hypotension. Urine studies consistent with some component or prerenal physiology or HRS. Renal US did not demonstrate obstruction --continue on Bumex 1 milligram IV twice a day however need to monitor renal function closely as there is risk for further worsening of renal function --increase protein intake to improve free water clearance --it would be important to document intake and output however patient has incontinence and since Verma catheter is now out, he has not been having his output documented. --if scrotal edema improves, will try Verma catheter again Will follow (2) Hyponatremia: (3) CKD stage 3 due to type 2 diabetes mellitus: (4) Acute bacterial peritonitis: -- On IV Cipro. Dose is currently appropriate for level of kidney function (5) Scrotal edema: Liz Tripp was seen and examined in his room this morning. Overall he is feeling better today. Responding to IV Bumex, urine output improved however was not able to have the exact eyes and nose as he is incontinent. Scrotal edema and abdominal wall edema improved. Renal function staying relatively stable, electrolyte acceptable. No hypotensive episode. Physical Exam Constitutional: WD/WN, vitals as above Respiratory: normal respiratory effort, lungs clear to auscultation Cardiovascular: Rate/Rhythm: regular rate and regular rhythm Gastrointestinal (Abdomen): Inspection/Auscultation: normal bowel sounds Percussion/Palpation: abdomen soft Neurologic: moves all extremities and awake Psychiatric: A+Ox3, euthymic affect Results & Data Vital Signs (Past 12 Hours) Vital Signs Temp Pulse Resp BP Pulse Ox 03/21/19 07:36 36.8 C 123 H 22 140/85 96
[2019-03-21] MEDS: OXYCODONE HCL IR 5 MG TAB (IMMEDIATE RELEASE) PO PRN (12:39)
--- NOTE | 2019-03-21 16:15 | Gastroenterology Progress Note ---
Date of Service March 21, 2019 Assessment & Plan (1) SBP (spontaneous bacterial peritonitis): Continue abd per ID which will cover SBP if from Cutibacterium and also celluitis--once cellulitis resolves if still having abd pain then do paracentesis to check cell count to document if that is improved confusion---stable anemia--stable and no evidence of GI bleeding this admit. hepatic encephalopathy continue Rifaxamin and lactulose. LETTY per renal Subjective cc f/u abd pain, cellulitis HPI with pateint for h and P. States abd pain about the same but thinks cellulitis looks better and he is eating somewhat better. Review of Systems Respiratory: no dyspnea Cardiovascular: no chest pain Physical Exam Respiratory: normal respiratory effort, lungs clear to auscultation Cardiovascular: RRR, no murmur, no edema Gastrointestinal (Abdomen): pos bs, soft, no guarding nor rebound, lower abd cellulitis less red and less surface area, mild abd distension but not tense. Psychiatric: A+Ox3, euthymic affect Results & Data Vital Signs (Past 12 Hours) Vital Signs Temp Pulse Resp BP BP Pulse Ox 03/21/19 15:22 36.8 C 108 H 18 117/76 94 03/21/19 07:36 36.8 C 123 H 22 140/85 96
[2019-03-21] MEDS: AMPHOTERICIN B 50 MG in WATER, STERILE 1,000 ML IR SCH (16:22)
[2019-03-21] MEDS ORDERED: CASPOFUNGIN 70 MG in SODIUM CHLORIDE 0.9% 250 ML IV ONE (16:30)
[2019-03-21] MEDS: DAPTOmycin 250 MG in SYRINGE 0 ML IV SCH (18:03)
[2019-03-21] MEDS: fentaNYL 25 MCG/HR TDSY TD SCH (21:05)
[2019-03-21] MEDS: ATORVASTATIN 10 MG TAB PO SCH (21:09)
[2019-03-21] MEDS: LORATADINE 10 MG TAB PO SCH (21:10)
--- NOTE | 2019-03-21 21:32 | Hospitalist Progress Note ---
Date of Service March 21, 2019 Assessment & Plan (1) Abdominal wall cellulitis: Improving. Cont unasyn (being used for SBP but should help the skin). Cont daptomycin for MRSA coverage. ID consultation appreciated. (2) SBP (spontaneous bacterial peritonitis): cell counts at admission s/p diagnostic paracentesis consistent with SBP. was on cipro IV since admission w/o significant general improvement. culture grew cutibacterium acnes (gram positive noel). his cipro was changed to IV unasyn 2 days ago. difficult to say if this pathogen is truly pathogenic or contaminant but given how immunocompromised he is (chronic prednisone use, etc) would consider pathogenic unless proven otherwise. agree w/ Dr Osborne a repeat diagnostic paracentesis would be helpful to see if WBC count is decreasing and thereby signifying his SBP is improving. after adequate treatment of this episode of SBP he likely will need cipro as SBP prophylaxis thereafter. (3) Candidal UTI (urinary tract infection): spoke with Dr Banks - Rx recommended. place 3-way [place]. start amphotericin bladder irrigation -- do this x 5 days. start IV caspofungin. of note - pt has had fungemia in the past per his family during an admission at [facility]. (4) Gross hematuria: resolved outpatient cystoscopy by urology (5) CKD stage 3 due to type 2 diabetes mellitus: creatinine at baseline nephrology following; appreciate their help (6) LETTY (acute kidney injury): resolved Peak Cr was 2.1 now 1.5-1.6 (7) Hyponatremia: acute/chronic TSH, cortisol wnl Urine Na very low uric acid is normal which would argue against SIADH remains on aldactone daily respiratory status stable defer management to nephrology - they have restarted diuretics with IV bumex (8) Sarcoidosis: long-standing, steroid-dependent (prednisone 20mg/day) in light of infections will give stress dose steroids and increase to 20mg BID for several days (9) Cirrhosis: 2nd to sarcoid, medication toxicity, etc no prior h/o etoh cont lactulose and rifaximin for hepatic encephalopathy prophylaxis treat SBP as above aldactone continues now on IV bumex appreciate GI consult & recs cont PPI twice daily (h/o multiple upper GI issues) (10) DM type 2 (diabetes mellitus, type 2): BSGs acceptable at this time cont lantus cont novolog (11) Lumbar disc herniation with radiculopathy: with resulting acquired paraplegic type state patient no longer walks also with chronic back pain 2nd to this issue cont fentanyl patch 25mcg oxycodone prn cautiously (12) 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 dopplers neg for DVT; doesn't rule out PE but suspicion for PE is low at this time (15) DVT prophylaxis: SCDs chemical means contraindicated due to low platelets may need SNF for rehab since he normally can stand, pivot and transfer for at home he can't even do these things right now and daughter updated at bedside again today I am concerned about the pt's overall poor progress Subjective maybe a little more energy today and a little more appetite still with abd pain daughter/ feel skin infection on abdominal wall is improved no nausea or emesis today no other new issues Review of Systems Constitutional: + fatigue; no fever and no chills Respiratory: no cough, no dyspnea and no pain on inspiration Cardiovascular: + edema; no chest pain, no orthopnea and no paroxysmal nocturnal dyspnea Gastrointestinal: + abdominal pain; no nausea, no vomiting and no constipation Integumentary: + erythema (abd wall) Physical Exam Constitutional: + ill appearing; no acute distress Eyes: + anicteric sclerae ENMT: Mouth: + dry oral mucous membranes Respiratory: no respiratory distress Auscultation: + diminished lung sounds (bases); no crackles, no rhonchi and no wheezes Cardiovascular: Rate/Rhythm: regular rhythm and + tachycardic Heart Sounds: normal S1, normal S2 and + murmur (1/6 LSB) Vessels: posterior tibial pulses present and dorsalis pedis pulses present; no JVD Extremities: + pedal edema (1-2 + b/l) Gastrointestinal (Abdomen): Inspection/Auscultation: + abdomen distended (with ascites), + abdominal wall ecchymosis, + abdominal edema (left flank) and + visible herniation (large, LLQ) Percussion/Palpation: + abdomen tender (RLQ); no hepatomegaly Skin: abdominal wall erythema is receding from my demarkation line from yesterday and is not as intensely red and not as warm to touch Psychiatric: Orientation: alert (much more awake & alert today) Results & Data Vital Signs (Past 12 Hours) Vital Signs Temp Pulse Resp BP Pulse Ox 03/21/19 15:22 36.8 C 108 H 18 117/76 94 Laboratory Results Laboratory Results - last 24 hr 03/21/19 03/21/19 03/21/19 06:29 06:29 06:29 WBC 10.60 RBC 4.15 L Hgb 10.1 L Hct 30.6 L MCV 73.7 L MCH 24.3 L MCHC 33.0 RDW Std Deviation 60.6 H RDW Coeff of Curt 22.8 H Plt Count 62 L Immature Gran % (Auto) 0.7 Neut % (Auto) 87.4 Lymph % (Auto) 5.1 [place] % (Auto) 6.4 Eos % (Auto) 0.3 Baso % (Auto) 0.1 Immature Gran # (Auto) 0.07 H Neut # (Auto) 9.27 H Lymph # (Auto) 0.54 L [place] # (Auto) 0.68 H Eos # (Auto) 0.03 Baso # (Auto) 0.01 Platelet Estimate Decreased Ovalocytes 1+ Echinocytes 2+ PT 13.5 H INR 1.3 H Sodium 132 L Potassium 3.9 Chloride 100 Carbon Dioxide 21 Anion Gap 11.0 BUN 32 H Creatinine 1.61 H Est Cr Clr Drug Dosing 44.0 Est GFR ( Amer) 50.9 Est GFR (Non-Af Amer) 43.9 BUN/Creatinine Ratio 20.1 H Glucose 130 H POC Glucose Calcium 8.3 L Total Bilirubin 2.6 H AST 37 ALT 24 Alkaline Phosphatase 316 H Total Protein 5.3 L Albumin 2.2 L Globulin 3.1 Albumin/Globulin Ratio 0.7 L 03/21/19 03/21/19 03/21/19 07:50 11:39 16:41 WBC RBC Hgb Hct MCV MCH MCHC RDW Std Deviation RDW Coeff of Curt Plt Count Immature Gran % (Auto) Neut % (Auto) Lymph % (Auto) [place] % (Auto) Eos % (Auto) Baso % (Auto) Immature Gran # (Auto) Neut # (Auto) Lymph # (Auto) [place] # (Auto) Eos # (Auto) Baso # (Auto) Platelet Estimate Ovalocytes Echinocytes PT INR Sodium Potassium Chloride Carbon Dioxide Anion Gap BUN Creatinine Est Cr Clr Drug Dosing Est GFR ( Amer) Est GFR (Non-Af Amer) BUN/Creatinine Ratio Glucose POC Glucose 138 H 187 H 163 H Calcium Total Bilirubin AST ALT Alkaline Phosphatase Total Protein Albumin Globulin Albumin/Globulin Ratio 03/21/19 19:57 WBC RBC Hgb Hct MCV MCH MCHC RDW Std Deviation RDW Coeff of Curt Plt Count Immature Gran % (Auto) Neut % (Auto) Lymph % (Auto) [place] % (Auto) Eos % (Auto) Baso % (Auto) Immature Gran # (Auto) Neut # (Auto) Lymph # (Auto) [place] # (Auto) Eos # (Auto) Baso # (Auto) Platelet Estimate Ovalocytes Echinocytes PT INR Sodium Potassium Chloride Carbon Dioxide Anion Gap BUN Creatinine Est Cr Clr Drug Dosing Est GFR ( Amer) Est GFR (Non-Af Amer) BUN/Creatinine Ratio Glucose POC Glucose 217 H Calcium Total Bilirubin AST ALT Alkaline Phosphatase Total Protein Albumin Globulin Albumin/Globulin Ratio (1) DM type 2 (diabetes mellitus, type 2) Diabetes mellitus complication status: without complication Diabetes mellitus half-way insulin use: with manager long term care use Qualified Code(s): E11.9 - Type 2 diabetes mellitus without complications; Z79.4 - USP (current) use of insulin (2) Cirrhosis Ascites presence: with ascites Hepatic cirrhosis type: alcoholic cirrhosis Qualified Code(s): K70.31 - Alcoholic cirrhosis of liver with ascites
[2019-03-22] MEDS: AMPICILLIN/SULBACTAM SOD 3,000 MG in 0.9 % SODIUM CHLORIDE 100 ML IV SCH ×4 (01:21→18:27)
[2019-03-22] MEDS: CHECK FENTANYL PATCH PLACEMENT SCH ×3 (01:21→15:32)
[2019-03-22] MEDS: OXYCODONE HCL IR 5 MG TAB (IMMEDIATE RELEASE) PO PRN ×3 (03:33→15:30)
[2019-03-22 07:35] LABS: Hematocrit (blood only) 30.6 % (42-52); Hemoglobin 10.1 g/dL (14.0-18.0); Mean Corpuscular Volume 73.4 fL (80-100); RDW Standard Deviation 61.5 fL (36.4-46.3); Red Blood Count 4.17 M/uL (4.7-6.1)
[2019-03-22 08:00] LABS: Albumin Level 2.2 gm/dl (3.4-5.0); BUN Creatinine Ratio 21.5 (10-20); Calcium 8.4 mg/dl (8.5-10.1); Creatinine Clr Calc Pharmacy 47.6 ml/min; Est GFR (Non-African American) 47.4; Potassium 3.9 mmol/L (3.5-5.1)
[2019-03-22 08:03] LABS: Albumin Globulin Ratio 0.7 (0.9-2); Bilirubin,Total 2.8 mg/dl (0.2-1); Globulin 3.2 gm/dl (2.5-4.0); Total Protein 5.4 gm/dl (6.4-8.2)
[2019-03-22 08:04] LABS: Platelet Count 50 K/uL (130-400)
[2019-03-22 08:05] LABS: Basophils # (auto) 0.01 K/uL (0-0.2); Basophils % (auto) 0.1 %; Echinocytes 1+; Immature Granulocytes % (auto) 1.1 %; Lymphocytes # (auto) 0.49 K/uL (1.2-3.4); Lymphocytes % (auto) 5.4 %; Monocytes # (auto) 0.27 K/uL (0.11-0.59); Neutrophils # (auto) 8.23 K/uL (1.4-6.5); Neutrophils % (auto) 90.4 %; Platelet Estimate Decreased (Normal); Target Cells 1+
[2019-03-22] MEDS: INSULIN ASPART 100 UNITS/ML 3 ML PEN SC SCH ×4 (09:00→20:42)
[2019-03-22] MEDS: FLUOXETINE HCL 20 MG CAP PO SCH (09:01)
[2019-03-22] MEDS: PENTOXIFYLLINE 400MG EXT REL TAB PO SCH ×2 (09:01→20:44)
[2019-03-22] MEDS: LACTULOSE SYRUP 20 GM/30 ML UDC PO SCH ×2 (09:01→20:40)
[2019-03-22] MEDS: INSULIN GLARGINE SOLOSTAR 100 UNITS/ML 3 ML PEN SC SCH ×2 (09:02→20:41)
[2019-03-22] MEDS: PANTOprazole 40 MG TAB PO SCH ×2 (09:02→20:43)
[2019-03-22] MEDS: predniSONE 20 MG TAB PO SCH ×2 (09:02→20:43)
[2019-03-22] MEDS: RIFAXIMIN 550 MG TABLET PO SCH ×2 (09:02→20:44)
[2019-03-22] MEDS: ARTIFICIAL TEARS OP SCH ×2 (09:13→20:39)
[2019-03-22] MEDS: BUMETANIDE 1 MG in SYRINGE 0 ML IV SCH ×2 (09:15→20:39)
[2019-03-22] MEDS: SPIRONOLACTONE 25 MG TAB PO SCH (09:32)
--- NOTE | 2019-03-22 10:19 | Nephrology Progress Note ---
Date of Service March 22, 2019 Assessment & Plan (1) LETTY (acute kidney injury): LETTY likely related to SBP, intravascular volume contraction, anemia and relative hypotension. Urine studies consistent with some component or prerenal physiology or HRS. Renal US did not demonstrate obstruction Scrotal and abdominal wall edema improving. Renal function stable. --continue on Bumex 1 milligram IV twice a day, monitor renal function closely as there is risk for worsening of renal function and electrolyte abnormality. --increase protein intake to improve free water clearance --it would be important to document intake and output however patient has incontinence and since Verma catheter is now out, he has not been having his output documented. --if scrotal edema improves, will try Verma catheter again Will follow (2) Hyponatremia: (3) CKD stage 3 due to type 2 diabetes mellitus: (4) Acute bacterial peritonitis: -- On IV Cipro. Dose is currently appropriate for level of kidney function (5) Scrotal edema: Liz Perry was seen and examined today. Feeling better, appetite improved. Denies SOB, CP, fever, chills. Physical Exam Constitutional: WD/WN, vitals as above Respiratory: normal respiratory effort, lungs clear to auscultation Cardiovascular: Rate/Rhythm: regular rate and regular rhythm Gastrointestinal (Abdomen): Inspection/Auscultation: normal bowel sounds Percussion/Palpation: abdomen soft Neurologic: moves all extremities and awake Psychiatric: A+Ox3, euthymic affect Results & Data Vital Signs (Past 12 Hours) Vital Signs Temp Pulse Resp BP BP Pulse Ox 03/22/19 07:48 36.6 C 106 H 16 142/85 H 92 03/21/19 23:00 36.8 C 101 H 18 150/83 H 95
[2019-03-22] MEDS: DICLOFENAC SOD 1% GEL 100 GM TUBE EXT PRN ×2 (11:39→15:31)
--- NOTE | 2019-03-22 15:09 | Gastroenterology Progress Note ---
Date of Service March 22, 2019 Assessment & Plan (1) SBP (spontaneous bacterial peritonitis): Continue abd per ID which will cover SBP if from Cutibacterium and also celluitis--once cellulitis resolves if still having abd pain then do paracentesis to check cell count to document if that is improved abd pain--improved at present. confusion---stable anemia--stable and no evidence of GI bleeding this admit. hepatic encephalopathy continue Rifaxamin and lactulose. LETTY per renal cellulitiis per ID and hospitalist--discussing wiht family they think it may be somewhat worse today Subjective CC f/u cellulitis, SBP HPI with patient for H and P. Pt thinks he has more ascites and some abd pressure but no real pain in abdomen. He is tolerating some solid food. Review of Systems Respiratory: some shortness of breath Cardiovascular: no chest pain Physical Exam Constitutional: WD/WN, vitals as above Respiratory: normal respiratory effort, lungs clear to auscultation Cardiovascular: RRR, no murmur, no edema Rate/Rhythm: regular rate Heart Sounds: normal, physiologic split S2 Gastrointestinal (Abdomen): pos bs, mild distension but not tense, no guarding nor rebound, lower abdomen erythema c/w cellulitis Skin: normal turgor Psychiatric: A+Ox3, euthymic affect Results & Data Vital Signs (Past 12 Hours) Vital Signs Temp Pulse Resp BP Pulse Ox 03/22/19 07:48 36.6 C 106 H 16 142/85 H 92
[2019-03-22] MEDS: CASPOFUNGIN 50 MG in SODIUM CHLORIDE 0.9% 250 ML IV SCH (15:43)
--- NOTE | 2019-03-22 15:49 | Infectious Disease Progress Nt ---
Date of Service March 22, 2019 Assessment & Plan (1) Abdominal wall cellulitis: Patient with what appears to be a developing abdominal wall cellulitis, and agree with the use of Unasyn which should cover the isolate from the peritoneal fluid. Significance of that is unknown since it is known to be a skin contaminant. Patient has had positive urine cultures for Christina glabrata, would require amphotericin B bladder irrigation for 5 days to adequately treat, and would give IV caspofungin at the same time to treat potential renal involvement. Will discuss with all involved. Will follow. (2) Candidal UTI (urinary tract infection): Subjective Patient seen in follow-up for peritonitis and abdominal wall cellulitis. Feels slightly better today but more bloated. No fever. No worsening abdominal pain. Review of Systems Review of Systems: All systems reviewed & are unremarkable except as noted in HPI & below Results & Data Vital Signs (Past 12 Hours) Vital Signs Temp Pulse Resp BP Pulse Ox 03/22/19 07:48 36.6 C 106 H 16 142/85 H 92 Laboratory Results Short CBC 03/22/19 Range/Units 07:01 WBC 9.10 (4.8-10.8) K/uL Hgb 10.1 L (14.0-18.0) g/dL Hct 30.6 L (42-52) % Plt Count 50 L (130-400) K/uL BMP 03/22/19 07:01 Sodium 131 L Potassium 3.9 Chloride 99 Carbon Dioxide 20 L BUN 33 H Creatinine 1.51 H Glucose 136 H Calcium 8.4 L Liver Function 03/22/19 Range/Units 07:01 Total Bilirubin 2.8 H (0.2-1) mg/dl AST 41 H (15-37) U/L ALT 28 (12-78) U/L Alkaline Phosphatase 338 H (45-117) U/L Albumin 2.2 L (3.4-5.0) gm/dl Diagnostic Findings Microbiology 03/19/19 18:37 Urine,Indwelling Cath Urine Culture - Final Christina glabrata 03/13/19 Unknown Peritoneal Fluid Gram Stain - Final 03/13/19 Unknown Peritoneal Fluid Aerobic and Anaerobic Culture - Final Cutibacterium (Propioni) acnes 03/12/19 20:44 Blood Blood Culture - Final No growth 03/12/19 20:31 Blood Blood Culture - Final No growth 03/13/19 Unknown Peritoneal Fluid Acid Fast Bacilli Smear - Final 03/13/19 Unknown Peritoneal Fluid Acid Fast Bacilli Culture - Preliminary No Acid-Fast Bacilli Isolated - Report 1, Additional Report to Follow.
[2019-03-22] MEDS: AMPHOTERICIN B 50 MG in WATER, STERILE 1,000 ML IR SCH (16:23)
[2019-03-22] MEDS: DAPTOmycin 250 MG in SYRINGE 0 ML IV SCH (18:05)
[2019-03-22] MEDS: ATORVASTATIN 10 MG TAB PO SCH (20:40)
[2019-03-22] MEDS: LORATADINE 10 MG TAB PO SCH (20:40)
[2019-03-23] MEDS: CHECK FENTANYL PATCH PLACEMENT SCH ×4 (00:19→23:36)
[2019-03-23] MEDS: AMPICILLIN/SULBACTAM SOD 3,000 MG in 0.9 % SODIUM CHLORIDE 100 ML IV SCH ×4 (01:30→18:07)
--- NOTE | 2019-03-23 05:40 | Gastroenterology Progress Note ---
Date of Service March 23, 2019 Assessment & Plan (1) SBP (spontaneous bacterial peritonitis): Continue abx per ID which will cover SBP if from Cutibacterium and also celluitis--once cellulitis resolves if still having abd pain then do paracentesis to check cell count to document if that is improved abd pain--improved at present. cellulitis--per ID confusion---stable anemia--no evidence of GI bleeding this admit. hepatic encephalopathy continue Rifaxamin and lactulose. LETTY per renal Subjective cc f/u abd pain, SBP, cellulitis HPI Pt states no abd pain at present and nurse O/N states patient did not voice abd pain complaints. Review of Systems Respiratory: no dyspnea Cardiovascular: no chest pain Physical Exam Constitutional: WD/WN, vitals as above Respiratory: normal respiratory effort, lungs clear to auscultation Cardiovascular: Heart Sounds: normal, physiologic split S2 Gastrointestinal (Abdomen): pos bs, mild abd distension but not tense, no guarding nor rebound, lower abdomen skin dark which is chronic, overall redness seems improved vs what is was at its worst Psychiatric: A+Ox3, euthymic affect Results & Data Vital Signs (Past 12 Hours) Vital Signs Temp Pulse Resp BP Pulse Ox 03/22/19 23:55 36.6 C 102 H 20 135/83 91
--- NOTE | 2019-03-23 08:00 | Hospitalist Progress Note ---
Date of Service March 22, 2019 Assessment & Plan (1) Abdominal wall cellulitis: Same or slightly better today. Cont unasyn (being used for SBP but should cover the skin as well). Cont daptomycin for MRSA coverage. ID consultation appreciated. (2) SBP (spontaneous bacterial peritonitis): cell counts at admission s/p diagnostic paracentesis consistent with SBP. was on cipro IV since admission w/o significant general improvement. culture grew cutibacterium acnes (gram positive noel). his cipro was changed to IV unasyn 3 days ago. difficult to say if this pathogen is truly pathogenic or contaminant but given how immunocompromised he is (chronic prednisone use, etc) would consider pathogenic unless proven otherwise. agree w/ Dr Osborne a repeat diagnostic paracentesis would be helpful to see if WBC count is decreasing and thereby signifying his SBP is improving. clinically his abd pain is better which would argue SBP is resolving. after adequate treatment of this episode of SBP he likely will need cipro as SBP prophylaxis thereafter. (3) Candidal UTI (urinary tract infection): day #2 amphotericin bladder irrigation -- plan total 5 days. cont IV caspofungin - day #2. of note - pt has had fungemia in the past per his family during an admission at [facility]. appreciate Dr Banks's assistance. (4) Gross hematuria: resolved outpatient cystoscopy by urology (5) CKD stage 3 due to type 2 diabetes mellitus: creatinine at baseline nephrology following; appreciate their help BMP am for stability (6) LETTY (acute kidney injury): resolved Peak Cr was 2.1 now 1.5-1.6 (7) Hyponatremia: acute/chronic TSH, cortisol wnl Urine Na very low uric acid is normal which would argue against SIADH remains on aldactone daily respiratory status stable defer management to nephrology - they have restarted diuretics with IV bumex (8) Sarcoidosis: long-standing, steroid-dependent (prednisone 20mg/day) in light of infections will give stress dose steroids and increase to 20mg BID for several days (9) Cirrhosis: 2nd to sarcoid, medication toxicity, etc no prior h/o etoh cont lactulose and rifaximin for hepatic encephalopathy prophylaxis treat SBP as above aldactone continues now on IV bumex appreciate GI consult & recs cont PPI twice daily (h/o multiple upper GI issues) (10) DM type 2 (diabetes mellitus, type 2): BSGs acceptable at this time cont lantus cont novolog (11) Lumbar disc herniation with radiculopathy: with resulting acquired paraplegic type state patient no longer walks also with chronic back pain 2nd to this issue cont fentanyl patch 25mcg oxycodone prn cautiously consider titration to 37mcg given ongoing pain (12) 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 dopplers neg for DVT; doesn't rule out PE but suspicion for PE is low at this time (15) Depression: on 40mg prozac long time depression is quite severe will ask psychiatry to see to help with medication management and suggestions (16) DVT prophylaxis: SCDs chemical means contraindicated due to low platelets may need SNF for rehab since he normally can stand, pivot and transfer for at home he can't even do these things right now I spent much of today's visit discussing his depression Will involve psychiatry to assist with med management given his cirrhosis I asked the patient today how much further he wishes to take his care given his numerous comorbidities, failure to thrive, terrible eating, depression, bed- bound status, etc. I encouraged him to tell his family what he wants/doesn't want. Daughter who is an OT also encouraged her father to voice his desires. He remains full code. Consider palliative care consultation to define long-term goals for care. Subjective patient still with very poor appetite no nausea or emesis abd pain resolved thinks cellulitis of abd wall is mildly worse family reports poor appetite at home "for months" long-standing depression --has been taking prozac 40mg daily for "years" states "it doesn't seem to be working any more" Review of Systems Constitutional: no fever Respiratory: no dyspnea Cardiovascular: no chest pain Gastrointestinal: no abdominal pain, no bloating, no nausea, no vomiting and no diarrhea/loose stools Psychiatric: + depression Physical Exam Constitutional: + ill appearing; no acute distress Eyes: + anicteric sclerae ENMT: external ear and nose normal, oropharynx normal Respiratory: no respiratory distress Auscultation: + diminished lung sounds (bases); no crackles, no rhonchi and no wheezes Cardiovascular: Rate/Rhythm: regular rhythm and + tachycardic Heart Sounds: normal S1, normal S2 and + murmur (1/6 LSB) Vessels: posterior tibial pulses present and dorsalis pedis pulses present; no JVD Extremities: + pedal edema (2 + b/l) Gastrointestinal (Abdomen): Inspection/Auscultation: + abdomen distended (with ascites), + abdominal wall ecchymosis, + abdominal edema (left flank) and + visible herniation (large, LLQ, reducible (no change today)) Percussion /Palpation: + abdomen tender (RLQ); no hepatomegaly Skin: abd wall cellulitis on LUQ/LLQ and left flank - either same or slightly better today Psychiatric: Orientation: alert, oriented to person and oriented to place Affect: + flat affect Results & Data Vital Signs (Past 12 Hours) Vital Signs Temp Pulse Resp BP Pulse Ox 03/23/19 07:40 36.6 C 102 H 16 135/71 95 03/22/19 23:55 36.6 C 102 H 20 135/83 91 Laboratory Results Laboratory Results - last 24 hr 03/22/19 03/22/19 03/22/19 07:01 07:01 11:32 Plt Count 50 L Immature Gran % (Auto) 1.1 Neut % (Auto) 90.4 Lymph % (Auto) 5.4 [place] % (Auto) 3.0 Eos % (Auto) 0.0 Baso % (Auto) 0.1 Immature Gran # (Auto) 0.10 H Neut # (Auto) 8.23 H Lymph # (Auto) 0.49 L [place] # (Auto) 0.27 Eos # (Auto) 0.00 Baso # (Auto) 0.01 Platelet Estimate Decreased Target Cells 1+ Echinocytes 1+ Sodium 131 L Potassium 3.9 Chloride 99 Carbon Dioxide 20 L Anion Gap 12.0 H BUN 33 H Creatinine 1.51 H Est Cr Clr Drug Dosing 47.6 Est GFR ( Amer) 55.0 Est GFR (Non-Af Amer) 47.4 BUN/Creatinine Ratio 21.5 H Glucose 136 H POC Glucose 169 H Calcium 8.4 L Total Bilirubin 2.8 H AST 41 H ALT 28 Alkaline Phosphatase 338 H Total Protein 5.4 L Albumin 2.2 L Globulin 3.2 Albumin/Globulin Ratio 0.7 L 03/22/19 03/22/19 16:53 20:02 Plt Count Immature Gran % (Auto) Neut % (Auto) Lymph % (Auto) [place] % (Auto) Eos % (Auto) Baso % (Auto) Immature Gran # (Auto) Neut # (Auto) Lymph # (Auto) [place] # (Auto) Eos # (Auto) Baso # (Auto) Platelet Estimate Target Cells Echinocytes Sodium Potassium Chloride Carbon Dioxide Anion Gap BUN Creatinine Est Cr Clr Drug Dosing Est GFR ( Amer) Est GFR (Non-Af Amer) BUN/Creatinine Ratio Glucose POC Glucose 153 H 161 H Calcium Total Bilirubin AST ALT Alkaline Phosphatase Total Protein Albumin Globulin Albumin/Globulin Ratio (1) Cirrhosis Hepatic cirrhosis type: alcoholic cirrhosis Ascites presence: with ascites Qualified Code(s): K70.31 - Alcoholic cirrhosis of liver with ascites (2) DM type 2 (diabetes mellitus, type 2) Diabetes mellitus 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
[2019-03-23] MEDS: PANTOprazole 40 MG TAB PO SCH ×2 (08:13→20:32)
[2019-03-23] MEDS: BUMETANIDE 1 MG in SYRINGE 0 ML IV SCH (08:13)
[2019-03-23] MEDS: predniSONE 20 MG TAB PO SCH (08:13)
[2019-03-23] MEDS: FLUOXETINE HCL 20 MG CAP PO SCH (08:14)
[2019-03-23] MEDS: SPIRONOLACTONE 25 MG TAB PO SCH (08:14)
[2019-03-23] MEDS: RIFAXIMIN 550 MG TABLET PO SCH ×2 (08:14→20:34)
[2019-03-23] MEDS: LACTULOSE SYRUP 20 GM/30 ML UDC PO SCH ×2 (08:14→20:30)
[2019-03-23] MEDS: PENTOXIFYLLINE 400MG EXT REL TAB PO SCH ×2 (08:14→20:33)
[2019-03-23] MEDS: ARTIFICIAL TEARS OP SCH ×2 (08:15→20:32)
[2019-03-23] MEDS: INSULIN ASPART 100 UNITS/ML 3 ML PEN SC SCH ×4 (08:16→20:41)
[2019-03-23] MEDS: INSULIN GLARGINE SOLOSTAR 100 UNITS/ML 3 ML PEN SC SCH ×2 (08:17→20:40)
[2019-03-23 10:00] LABS: Mean Corpuscular Hgb Conc 32.5 g/dL (32-36)
[2019-03-23 10:07] LABS: Hematocrit (blood only) 32.3 % (42-52); Hemoglobin 10.5 g/dL (14.0-18.0); Mean Corpuscular Volume 75.1 fL (80-100); RDW Coefficient of Variation 23.4 % (11.5-14.5); RDW Standard Deviation 64.1 fL (36.4-46.3); White Blood Count 9.79 K/uL (4.8-10.8)
[2019-03-23 10:23] LABS: Platelet Count 46 K/uL (130-400)
[2019-03-23 10:24] LABS: Anisocytosis Present; Echinocytes 2+; Immature Granulocytes # (auto) 0.08 K/uL (0.00-0.02); Immature Granulocytes % (auto) 0.8 %; Lymphocytes # (auto) 0.43 K/uL (1.2-3.4); Lymphocytes % (auto) 4.4 %; Monocytes # (auto) 0.21 K/uL (0.11-0.59); Monocytes % (auto) 2.1 %; Neutrophils # (auto) 9.07 K/uL (1.4-6.5); Neutrophils % (auto) 92.7 %; Platelet Estimate Decreased (Normal)
[2019-03-23 10:29] LABS: Albumin Level 2.1 gm/dl (3.4-5.0); BUN Creatinine Ratio 22.2 (10-20); Calcium 8.4 mg/dl (8.5-10.1); Creatinine Clr Calc Pharmacy 43.3 ml/min; Est GFR (African American) 47.6; Est GFR (Non-African American) 41.1
[2019-03-23 10:32] LABS: Albumin Globulin Ratio 0.7 (0.9-2); Bilirubin,Total 2.5 mg/dl (0.2-1); Globulin 3.2 gm/dl (2.5-4.0); Total Protein 5.3 gm/dl (6.4-8.2)
[2019-03-23] MEDS ORDERED: BUMETANIDE 1 MG in SYRINGE 0 ML IV ONE (10:45)
--- NOTE | 2019-03-23 11:40 | Hospitalist Progress Note ---
Date of Service March 23, 2019 Assessment & Plan (1) SBP (spontaneous bacterial peritonitis): Peritoneal fluid cell counts at admission s/p diagnostic paracentesis consistent with SBP. He was on cipro IV since admission w/o significant general improvement. His culture grew cutibacterium acnes (gram positive noel). The Cipro was changed to IV unasyn on 03/20 It is difficult to say if this pathogen is truly pathogenic or contaminant but given how immunocompromised he is (chronic prednisone use, etc) would consider pathogenic unless proven otherwise. GI says to consider a repeat diagnostic paracentesis after improvement of his abdominal wall cellulitis if he continues to have abdominal pain Clinically his abd pain is better which would argue SBP is resolving. -after adequate treatment of this episode of SBP he likely will need cipro as SBP prophylaxis thereafter. -Continue IV Unasyn-day #4 and consider switching to Augmentin, will defer to ID-plan for 14 days of treatment (2) Abdominal wall cellulitis: Family reports it is slightly improved today Cont unasyn (being used for SBP but should cover the skin as well). Cont daptomycin for MRSA coverage. ID consultation appreciated. (3) Candidal UTI (urinary tract infection): day #3 amphotericin bladder irrigation -- plan total 5 days. cont IV caspofungin - day #3-likely 7-day course but will discuss with infectious disease. of note - pt has had fungemia in the past per his family during an admission at [facility]. appreciate Dr Banks's assistance. (4) Gross hematuria: resolved outpatient cystoscopy by urology (5) CKD stage 3 due to type 2 diabetes mellitus: creatinine at baseline is around 1.5 Today with mild increase to 1.70 with using IV Bumex nephrology following; appreciate their help -Follow BMP (6) LETTY (acute kidney injury): Peak Cr was 2.1 on admission with infection and had some improvement with giving albumin and normal saline Creatinine today with slight increase again to 1.70 after using IV Bumex Discussed with nephrology-he is significantly edematous and has gained a large amount of fluid weight in the last several days. He is uncomfortable with his scrotal and penile edema although nephrology does feel that it is improved from yesterday. Discussed with the patient, his family, and nephrology about the fact that his creatinine may rise with continued efforts to diuresis Urine output is low today His albumin is low at 2.1 which will make a loop diuretic less effective - will increase Bumex to 2 mg IV twice daily for now -Follow BMP in the morning -Renally dose medications -Avoid nephrotoxins -Follow urine output (7) Hyponatremia: acute/chronic, sodium today is 130 TSH, cortisol wnl Urine Na very low uric acid is normal which would argue against SIADH remains on aldactone daily, IV Bumex as above respiratory status stable -Follow BMP (8) Sarcoidosis: long-standing, steroid-dependent (prednisone 20mg/day) in light of infections is receiving stress dose steroids-we will start to taper down his blood pressures are stable-decrease to prednisone 15 mg p.o. twice daily today (9) Cirrhosis: Secondary to sarcoid, medication toxicity, etc He also used to consume wine on a daily basis and there may be some alcohol component Continues with intermittent encephalopathy and has had elevated ammonia levels this admission No bowel movement since yesterday -Cont lactulose and rifaximin for hepatic encephalopathy prophylaxis -Treat SBP as above -Aldactone continues -Continue IV bumex -appreciate GI consult & recs -cont PPI twice daily (h/o multiple upper GI issues) (10) DM type 2 (diabetes mellitus, type 2): BSGs acceptable at this time cont lantus cont novolog (11) Lumbar disc herniation with radiculopathy: with resulting acquired paraplegic type state patient no longer walks also with chronic back pain secondary to this issue cont fentanyl patch 25mcg and consider increasing to 37.5 to avoid oral oxycodone usage oxycodone prn cautiously-decrease dose to 2.5 mg as he is too sedated to get a higher dose - will consider titrating up his fentanyl patch tomorrow if is more mentally alert (12) 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 dopplers neg for DVT; doesn't rule out PE but suspicion for PE is low at this time -Follow (15) Depression: on 40mg prozac long time depression is quite severe Discussed the case with psychiatry-given ongoing multiple comorbidities, low platelets, hyponatremia, and encephalopathy, psychiatry actually recommends titrating down on his Prozac to 20 mg daily today and eventually off -Psychiatry recommends eventually starting either mirtazapine or Lexapro (16) DVT prophylaxis: SCDs, chemical means contraindicated due to low platelets Disposition - will likely need SNF for rehab since he normally can assist with transfer from bed to wheelchair He is severely debilitated and he can't even do these things right now I had a lengthy discussion on 03/23 with the patient's and stepdaughter at the bedside regarding his poor prognosis and goals of care. Patient has been to encephalopathic to participate in the discussion. His wants to wait until he is more alert in the morning and then discuss goals of care further than to include potentially changing his CODE STATUS, and what to do if his condition continues to deteriorate or he has recurrence of infection after these current infections are resolved They are interested in a palliative care consultation which I will place for Monday Subjective I first saw the patient in the morning and he was semi-alert and admitted to having pain in his penis and scrotum. He denied chest pain but did say he had some shortness of breath. He then went off topic and started talking about his eyes and a bowl of cereal. Later in the afternoon, I came back to the bedside at the request of his and daughter to discuss his care. The patient at this time was sleeping and did not wake up despite ongoing conversation around him. reports that he usually naps all afternoon and wakes up at 5 PM for dinner. We had a long discussion about his prognosis, condition, and goals of care moving forward. The patient's produced his advanced directive and we reviewed this in detail. We determined he is not at a terminal condition at this point in time, however his condition is chronic and is likely to continue to worsen. I do not see any improvement in fact he has had worsening since I last saw him 6 days ago. I discussed this in detail with the and daughter at the bedside. The reports she would like to discuss goals of care with him when he is more alert hopefully in the morning. She does not want to see him suffer. We did discuss possibly increasing his fentanyl pain patch as she reports that his back pain is 1 of the only things he continues to complain about. I discussed the case at length with nephrology today Review of Systems Review of Systems: All systems reviewed & are unremarkable except as noted in HPI & below Physical Exam Constitutional: + ill appearing and + obese; no acute distress Eyes: PERRL, conjunctivae normal, anicteric sclerae (With bilateral proptosis) Neck: trachea midline, no thyromegaly Respiratory: normal respiratory effort Auscultation: + diminished lung sounds (At the bases bilaterally); no crackles, no rhonchi and no wheezes Cardiovascular: Rate/Rhythm: regular rate and regular rhythm Heart Sounds: + murmur (2/6 at RUSB) Extremities: + edema (1-2+ pitting edema of the LEs to the thighs bilaterally) Gastrointestinal (Abdomen): Inspection/Auscultation: + abdomen abnormal to inspection (very large LLQ hernia, reducible and nontender) Percussion/Palpation: abdomen soft; abdomen nontender and abdomen not rigid Musculoskeletal: Extremities: extremities normal to inspection; no cyanosis and no clubbing Skin: + wound (multiple scabbed over lesions on all extremities covered with dressings) and + erythema (Mild erythema of the left lateral abdominal wall that is warm to the touch) Neurologic: awake (But drowsy) and + confused Psychiatric: Orientation: cooperative Eye Contact: + fair eye contact Mood: + depressed mood Genitourinary: + scrotum abnormality (With penile and scrotal edema-moderate, Verma catheter in place, no hematuria) Results & Data Vital Signs (Past 12 Hours) Vital Signs Temp Pulse Resp BP Pulse Ox 03/23/19 07:40 36.6 C 102 H 16 135/71 95 03/22/19 23:55 36.6 C 102 H 20 135/83 91 Laboratory Results 03/23/19 03/23/19 03/23/19 Range/Units 20:29 16:49 11:51 WBC (4.8-10.8) K/uL RBC (4.7-6.1) M/uL Hgb (14.0-18.0) g/dL Hct (42-52) % MCV (80-100) fL MCH (25-34) pg MCHC (32-36) g/dL RDW Std Deviation (36.4-46.3) fL RDW Coeff of Curt (11.5-14.5) % Plt Count (130-400) K/uL Immature Gran % (Auto) % Neut % (Auto) % Lymph % (Auto) % [place] % (Auto) % Eos % (Auto) % Baso % (Auto) % Immature Gran # (Auto) (0.00-0.02) K/uL Neut # (Auto) (1.4-6.5) K/uL Lymph # (Auto) (1.2-3.4) K/uL [place] # (Auto) (0.11-0.59) K/uL Eos # (Auto) (0-0.5) K/uL Baso # (Auto) (0-0.2) K/uL Platelet Estimate (Normal) Anisocytosis Echinocytes Sodium (136-145) mmol/L Potassium (3.5-5.1) mmol/L Chloride (98-107) mmol/L Carbon Dioxide (21-32) mmol/L Anion Gap (3-11) BUN (7-18) mg/dl Creatinine (0.6-1.4) mg/dl Est Cr Clr Drug Dosing ml/min Est GFR ( Amer) Est GFR (Non-Af Amer) BUN/Creatinine Ratio (10-20) Glucose (70-99) mg/dl POC Glucose 192 H 159 H 189 H (70-99) Calcium (8.5-10.1) mg/dl Total Bilirubin (0.2-1) mg/dl AST (15-37) U/L ALT (12-78) U/L Alkaline Phosphatase (45-117) U/L Total Protein (6.4-8.2) gm/dl Albumin (3.4-5.0) gm/dl Globulin (2.5-4.0) gm/dl Albumin/Globulin Ratio (0.9-2) 03/23/19 03/23/19 03/23/19 Range/Units 09:44 09:44 07:57 WBC 9.79 (4.8-10.8) K/uL RBC 4.30 L (4.7-6.1) M/uL Hgb 10.5 L (14.0-18.0) g/dL Hct 32.3 L (42-52) % MCV 75.1 L (80-100) fL MCH 24.4 L (25-34) pg MCHC 32.5 (32-36) g/dL RDW Std Deviation 64.1 H (36.4-46.3) fL RDW Coeff of Curt 23.4 H (11.5-14.5) % Plt Count 46 L (130-400) K/uL Immature Gran % (Auto) 0.8 % Neut % (Auto) 92.7 % Lymph % (Auto) 4.4 % [place] % (Auto) 2.1 % Eos % (Auto) 0.0 % Baso % (Auto) 0.0 % Immature Gran # (Auto) 0.08 H (0.00-0.02) K/uL Neut # (Auto) 9.07 H (1.4-6.5) K/uL Lymph # (Auto) 0.43 L (1.2-3.4) K/uL [place] # (Auto) 0.21 (0.11-0.59) K/uL Eos # (Auto) 0.00 (0-0.5) K/uL Baso # (Auto) 0.00 (0-0.2) K/uL Platelet Estimate Decreased L (Normal) Anisocytosis Present Echinocytes 2+ Sodium 130 L (136-145) mmol/L Potassium 4.0 (3.5-5.1) mmol/L Chloride 98 (98-107) mmol/L Carbon Dioxide 21 (21-32) mmol/L Anion Gap 11.0 (3-11) BUN 38 H (7-18) mg/dl Creatinine 1.70 H (0.6-1.4) mg/dl Est Cr Clr Drug Dosing 43.3 ml/min Est GFR ( Amer) 47.6 Est GFR (Non-Af Amer) 41.1 BUN/Creatinine Ratio 22.2 H (10-20) Glucose 163 H (70-99) mg/dl POC Glucose 158 H (70-99) Calcium 8.4 L (8.5-10.1) mg/dl Total Bilirubin 2.5 H (0.2-1) mg/dl AST 43 H (15-37) U/L ALT 28 (12-78) U/L Alkaline Phosphatase 359 H (45-117) U/L Total Protein 5.3 L (6.4-8.2) gm/dl Albumin 2.1 L (3.4-5.0) gm/dl Globulin 3.2 (2.5-4.0) gm/dl Albumin/Globulin Ratio 0.7 L (0.9-2) (1) DM type 2 (diabetes mellitus, type 2) Diabetes mellitus complication status: without complication Diabetes mellitus exterminator insulin use: with exterminator use Qualified Code(s): E11.9 - Type 2 diabetes mellitus without complications; 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
--- NOTE | 2019-03-23 12:17 | Nephrology Progress Note ---
Date of Service March 23, 2019 Assessment & Plan (1) LETTY (acute kidney injury): LETTY likely related to SBP, intravascular volume contraction, anemia and relative hypotension. Urine studies consistent with some component or prerenal physiology or HRS. Renal US did not demonstrate obstruction Scrotal and abdominal wall edema improving. Renal function stable. --okay to increase Bumex to 2 milligram IV twice a day, monitor renal function closely as there is risk for worsening of renal function and electrolyte abnormality, however so far renal function has been stable. --increase protein intake to improve free water clearance --overall prognosis seems to be poor considering underlying liver disease, chronic deconditioning at home for long time and severe depression Will sign off for now, please do not hesitate to contact if further assistance needed. (2) Hyponatremia: (3) CKD stage 3 due to type 2 diabetes mellitus: (4) Acute bacterial peritonitis: -- On IV Cipro. Dose is currently appropriate for level of kidney function (5) Scrotal edema: Liz An was seen and examined in his room this morning. Overall no significant change, blood pressure stable. He feels somewhat " lost". Denies shortness of breath or chest pain. Scrotal edema slightly improved however continued to have some edema. Has been having decent urine output. Renal function and electrolytes staying reasonably stable. Physical Exam Constitutional: WD/WN, vitals as above Respiratory: normal respiratory effort, lungs clear to auscultation Cardiovascular: Rate/Rhythm: regular rate and regular rhythm Gastrointestinal (Abdomen): Inspection/Auscultation: normal bowel sounds Percussion/Palpation: abdomen soft Neurologic: moves all extremities and awake Psychiatric: A+Ox3, euthymic affect Results & Data Vital Signs (Past 12 Hours) Vital Signs Temp Pulse Resp BP Pulse Ox 03/23/19 07:40 36.6 C 102 H 16 135/71 95
--- NOTE | 2019-03-23 13:07 | Psychiatric Consultation ---
Date of Consultation March 23, 2019 Impression / Recommendations Impression 64 yo male with a history of depression reactive to his multiple chronic medical conditions, appears to have some ongoing encephalopathy and/or sedation from medications. Adjusting antidepressants is complicated given excessive sedation, hyponatremia, low platelets, etc. I would not increase Prozac given it's cyt p450 profile and would infact suggest that it be tapered to 20 mg and discontinued, ultimately in favor of a different agent (perhaps Lexapro). It is labelled for drug drug interactions (excessive MACHINE LOADER effects) in combo with fentanyl and this and other drug drug interactions could be contributing to the length of time taking for encephalopathy to resolve. I defer to medical team on frequency of ammonia level. summary: tapering Prozac with plan to d/c. Will need reassessed to determine appropriateness of Lexapro. If less sedated as encephalopathy resolves, Remeron may be a nice agent. Psych History Chief Complaint "I'm just frustrated". History of Present Illness Mr. Santiago is a 64yo male with multiple medical comorbidities to include cirrhosis of the liver, sarcoidosis, chronic steroid use presenting with metabolic encephalopathy on 03/12/19 a few weeks after paracentesis. He was diagnosed with bacterial peritonitis and a UTI but has remained somewhat somnolent with poor PO intake with ongoing concerns about depression. He states that he had felt the "best I have in a while" following his paracentesis and he was hoping to be more active when "it all fell apart again". Mr. Santiago had significant difficulties staying awake during the interview and would restart conversation, only on a different topic. He was seen later by nurse liaison and scored 16 on PHQ-9. He consistently denied suicidal thoughts to both examiners. He was unsure how long he has been taking Prozac. He states "probably some time" and has found it helpful in the past. He had difficulty out any psychiatric symptoms from his medical problems. Allergies Allergy/AdvReac Type Severity Reaction Status Date / Time celecoxib Allergy Intermediate HIVES Verified 03/12/19 19:07 Penicillins Allergy Intermediate HIVES Verified 03/12/19 19:07 Home Medications Home Medications Medication Instructions Recorded Confirmed Type acetaminophen 500 mg PO QID PRN 02/22/19 03/12/19 History albuterol sulfate 2 puff INHALATION Q6H PRN 02/22/19 03/12/19 History atorvastatin 10 mg PO HS 02/22/19 03/12/19 History carboxymethylcellulose sodium 1 dose OPHTHALMIC (EYE) BID 02/22/19 03/12/19 History [Refresh Celluvisc] fentanyl [Duragesic] 1 patch TRANSDERMAL Q72H 02/22/19 03/12/19 History fluoxetine 40 mg PO DAILY 02/22/19 03/12/19 History insulin glargine [Lantus U-100 15 unit SUBCUT BID 02/22/19 03/12/19 History Insulin] lactulose 1 dose PO BID 02/22/19 03/12/19 History mometasone 50 mcg INTRANASAL BID PRN 02/22/19 03/12/19 History multivitamin with minerals 1 tab PO DAILY 02/22/19 03/12/19 History pantoprazole 40 mg PO DAILY 02/22/19 03/12/19 History pentoxifylline 400 mg PO BID 02/22/19 03/12/19 History potassium chloride 10 meq PO BID 02/22/19 03/12/19 History prednisone 20 mg PO DAILY 02/22/19 03/12/19 History promethazine 25 mg PO Q6H PRN 02/22/19 03/12/19 History propranolol 5 mg PO QAM 02/22/19 03/12/19 History rifaximin [Xifaxan] 550 mg PO BID 02/22/19 03/12/19 History simethicone 80 - 160 mg PO BID PRN 02/22/19 03/12/19 History spironolactone 50 mg PO DAILY 02/22/19 03/12/19 History sulfamethoxazole-trimethoprim 1 tab PO 3XWK MDD m-w-f 02/22/19 03/12/19 History [Bactrim DS] furosemide 40 mg PO BID 02/26/19 03/12/19 History loratadine 10 mg PO HS 02/26/19 03/12/19 History Personal History Beliefs That Will Affect Care: None Patient History Medical History Abdominal pain (Acute) Abscess in epidural space of lumbar spine (Acute) Altered mental status (Acute) Asthma (Acute) Diabetic autonomic neuropathy (Acute) Diarrhea (Acute) Fall in home (Acute) Fever (Acute) Fungemia (Acute) Fusion of spine (Acute) GERD (gastroesophageal reflux disease) (Acute) GI bleed (Acute) Gram negative septicemia (Acute) Hepatic encephalopathy (Acute) Hyperammonemia (Acute) Hyperlipidemia (Acute) Hypertension (Acute) Hypertension (Acute) Hypokalemia (Acute) Hypoxia (Acute) Immunocompromised (Acute) Infection of lumbar spine (Acute) Kidney stones (Acute) Lactic acidosis (Acute) Left leg cellulitis (Acute) Lumbar compression fracture (Acute) Lumbar disc herniation with radiculopathy (Acute) Lumbar stenosis with neurogenic claudication (Acute) Marijuana smoker (Acute) Meningitis (Acute) Obesity (Acute) Open wound of LLQ of abdominal wall w/o penentrat into periton cavity (Acute) Peritonitis (acute) generalized (Acute) Pneumonia (Acute) Post op infection (Acute) Sarcoidosis (Acute) Septal defect (Acute) Sleep apnea (Acute) Tenosynovitis, de Quervain (Acute) Thrombocytopenia (Acute) Vomiting (Acute) Alcoholic cirrhosis Surgical History History of carpal tunnel release (Acute) History of cataract surgery (Acute) History of herniorrhaphy (Acute) History of lithotripsy (Acute) History of repair of rotator cuff (Acute) Family History Father Heart attack Social History Preferred Language: Serbian Communication Ability: Effective Sole Splitter Required: No Beliefs That Will Affect Care: None marital status: Current Living Situation: Spouse Other Information That Helps Us Care for You: No Feels Safe at Home: Yes Safety Concerns: Feels Safe At This Time Smoking Status: Former smoker Do You Dip or Chew Tobacco: No Second Hand Exposure: No Hx Alcohol Use: No Hx Substance Use: No Physical Exam Psychiatric: Orientation: alert, oriented to person and oriented to place Apperance: + disheveled Eye Contact: + poor eye contact Motor Behavior: + psychomotor retardation Speech: + abnormal rate/rhythm/volume of speech Affect: + blunted affect Mood: + depressed mood Thought Process: + circumstantial thought process Thought Content: no delusions Suicidal Thoughts: denies suicidal thoughts Homicidal Thoughts: denies homicidal thoughts Hallucinations: no auditory hallucinations and no visual hallucinations Cognition: + recent memory not intact and + attention not int act Vital Signs (Past 24 Hours): Last Vital Signs Temp 36.6 C 03/23/19 07:40 Pulse 102 H 03/23/19 07:40 Resp 16 03/23/19 07:40 BP 135/71 03/23/19 07:40 Pulse Ox 95 03/23/19 07:40 Review of Systems Unobtainable due to cognitive status Results & Data Medications Administered Artificial Tears (Artificial Tears) 1 drops OP BID [facility] Stop: 04/11/19 20:59 Last Admin: 03/23/19 08:15 Dose: 1 drops Documented by: [id number] Admin: 03/22/19 20:39 Dose: 1 drops Documented by: [id number] Admin: 03/22/19 09:13 Dose: 1 drops Documented by: [id number] Admin: 03/21/19 21:07 Dose: 1 drops Documented by: [id number] Admin: 03/21/19 08:36 Dose: 1 drops Documented by: [id number] Admin: 03/20/19 21:24 Dose: 1 drops Documented by: [id number] Admin: 03/20/19 08:02 Dose: 1 drops Documented by: [id number] Admin: 03/19/19 20:52 Dose: 1 drops Documented by: [id number] Admin: 03/19/19 08:05 Dose: 1 drops Documented by: [id number] Admin: 03/18/19 20:55 Dose: 1 drops Documented by: [id number] Admin: 03/18/19 08:30 Dose: 1 drops Documented by: [id number] Admin: 03/17/19 21:23 Dose: 1 drops Documented by: [id number] Admin: 03/17/19 08:22 Dose: 1 drops Documented by: [id number] Admin: 03/16/19 21:29 Dose: 1 drops Documented by: [id number] Admin: 03/16/19 08:19 Dose: 1 drops Documented by: [id number] Admin: 03/15/19 20:09 Dose: 1 drops Documented by: [id number] Admin: 03/15/19 08:31 Dose: 1 drops Documented by: [id number] Admin: 03/14/19 21:21 Dose: 1 drops Documented by: [id number] Admin: 03/14/19 08:49 Dose: 1 drops Documented by: [id number] Admin: 03/13/19 21:08 Dose: 1 drops Documented by: [id number] Admin: 03/13/19 08:23 Dose: 1 drops Documented by: [id number] Admin: 03/12/19 22:07 Dose: 1 drops Documented by: [id number] Atorvastatin Calcium (Lipitor) 10 mg PO HS [facility] Stop: 04/11/19 20:59 Last Admin: 03/22/19 20:40 Dose: 10 mg Documented by: [id number] Admin: 03/21/19 21:09 Dose: 10 mg Documented by: [id number] Admin: 03/20/19 21:35 Dose: 10 mg Documented by: [id number] Admin: 03/19/19 20:53 Dose: 10 mg Documented by: [id number] Admin: 03/18/19 20:53 Dose: 10 mg Documented by: [id number] Admin: 03/17/19 21:24 Dose: 10 mg Documented by: [id number] Admin: 03/16/19 21:30 Dose: 10 mg Documented by: [id number] Admin: 03/15/19 20:10 Dose: 10 mg Documented by: [id number] Admin: 03/14/19 21:22 Dose: 10 mg Documented by: [id number] Admin: 03/13/19 21:07 Dose: 10 mg Documented by: [id number] Admin: 03/12/19 21:49 Dose: 10 mg Documented by: [id number] Diclofenac Sodium (Voltaren 1% Top) 1 appln EXT QID PRN PRN Reason: Pain Stop: 04/16/19 15:06 Last Admin: 03/22/19 15:31 Dose: 1 appln Documented by: [id number] Admin: 03/22/19 11:39 Dose: 1 appln Documented by: [id number] Admin: 03/19/19 14:29 Dose: 1 appln Documented by: [id number] Admin: 03/18/19 23:27 Dose: 1 appln Documented by: [id number] Admin: 03/18/19 17:10 Dose: 1 appln Documented by: [id number] Admin: 03/17/19 18:37 Dose: 1 appln Documented by: [id number] Admin: 03/17/19 15:39 Dose: 1 appln Documented by: [id number] Fentanyl (Duragesic) 25 mcg TD Q72H [facility] Stop: 03/26/19 20:59 Last Admin: 03/21/19 21:05 Dose: 25 mcg Documented by: [id number] Admin: 03/18/19 20:50 Dose: 25 mcg Documented by: [id number] Admin: 03/15/19 21:02 Dose: 25 mcg Documented by: [id number] Admin: 03/12/19 21:57 Dose: 25 mcg Documented by: [id number] Fluticasone Propionate (Flonase) 2 sprays NA BID PRN PRN Reason: CONGESTION Stop: 04/11/19 20:59 Last Admin: 03/17/19 01:42 Dose: 2 sprays Documented by: [id number] Ampicillin Sodium/Sulbactam Sodium 3,000 mg/ Sodium Chloride 108 mls @ 216 mls/hr IV Q6H [facility]; Protocol Stop: 03/29/19 12:59 Last Admin: 03/23/19 12:32 Dose: 216 mls/hr Documented by: [id number] Infusion: 03/23/19 09:30 Dose: 0 mls/hr Documented by: [id number] Admin: 03/23/19 08:13 Dose: 216 mls/hr Documented by: [id number] Infusion: 03/23/19 07:10 Dose: 0 mls/hr Documented by: [id number] Admin: 03/23/19 01:30 Dose: 216 mls/hr Documented by: [id number] Infusion: 03/22/19 18:57 Dose: 216 mls/hr Documented by: [id number] Admin: 03/22/19 18:27 Dose: 216 mls/hr Documented by: [id number] Infusion: 03/22/19 13:23 Dose: 0 mls/hr Documented by: [id number] Admin: 03/22/19 12:37 Dose: 216 mls/hr Documented by: [id number] Infusion: 03/22/19 06:46 Dose: 0 mls/hr Documented by: [id number] Admin: 03/22/19 06:09 Dose: 216 mls/hr Documented by: [id number] Infusion: 03/22/19 02:00 Dose: 0 mls/hr Documented by: [id number] Admin: 03/22/19 01:21 Dose: 216 mls/hr Documented by: [id number] Infusion: 03/21/19 20:05 Dose: 216 mls/hr Documented by: [id number] Infusion: 03/21/19 19:32 Dose: 216 mls/hr Documented by: [id number] Admin: 03/21/19 19:32 Dose: 216 mls/hr Documented by: [id number] Infusion: 03/21/19 13:09 Dose: 0 mls/hr Documented by: [id number] Admin: 03/21/19 12:39 Dose: 216 mls/hr Documented by: [id number] Infusion: 03/21/19 06:49 Dose: 0 mls/hr Documented by: [id number] Admin: 03/21/19 06:17 Dose: 216 mls/hr Documented by: [id number] Infusion: 03/21/19 01:10 Dose: 0 mls/hr Documented by: [id number] Admin: 03/21/19 00:39 Dose: 216 mls/hr Documented by: [id number] Infusion: 03/20/19 20:20 Dose: 216 mls/hr Documented by: [id number] Admin: 03/20/19 19:33 Dose: 216 mls/hr Documented by: [id number] Infusion: 03/20/19 14:18 Dose: 0 mls/hr Documented by: [id number] Admin: 03/20/19 13:48 Dose: 216 mls/hr Documented by: [id number] Infusion: 03/20/19 08:59 Dose: 0 mls/hr Documented by: [id number] Admin: 03/20/19 06:23 Dose: 216 mls/hr Documented by: [id number] Infusion: 03/20/19 01:27 Dose: 0 mls/hr Documented by: [id number] Admin: 03/20/19 00:48 Dose: 216 mls/hr Documented by: [id number] Infusion: 03/19/19 19:14 Dose: 0 mls/hr Documented by: [id number] Admin: 03/19/19 18:39 Dose: 216 mls/hr Documented by: [id number] Infusion: 03/19/19 16:34 Dose: 216 mls/hr Documented by: [id number] Admin: 03/19/19 14:28 Dose: 216 mls/hr Documented by: [id number] Daptomycin 250 mg/ Syringe 5 mls @ 2.5 mls/min IV Q24H [facility]; Protocol Stop: 03/30/19 17:59 Last Admin: 03/22/19 18:05 Dose: 2.5 mls/min Documented by: [id number] Admin: 03/21/19 18:03 Dose: 2.5 mls/min Documented by: [id number] Admin: 03/20/19 18:07 Dose: 2.5 mls/min Documented by: [id number] Amphotericin B 50 mg/ Sterile (Water) 1,000 mls @ 41.667 mls/hr IR Q24H [facility] Stop: 03/26/19 16:29 Last Admin: 03/22/19 16:23 Dose: 41.667 mls/hr Documented by: [id number] Admin: 03/21/19 16:22 Dose: 41.667 mls/hr Documented by: [id number] Caspofungin 50 mg/ Sodium (Chloride) 260 mls @ 260 mls/hr IV DAILY@1600 [facility] Stop: 03/31/19 15:59 Last Infusion: 03/22/19 17:29 Dose: 0 mls/hr Documented by: [id number] Admin: 03/22/19 15:43 Dose: 260 mls/hr Documented by: [id number] Insulin Aspart (Novolog Flexpen) 0 units SC ACHS [facility] Stop: 04/11/19 20:59 Last Admin: 03/23/19 12:33 Dose: 3 units Documented by: [id number] Cosigned by: [id number] Admin: 03/23/19 08:16 Dose: 1 units Documented by: [id number] Cosigned by: [id number] Admin: 03/22/19 20:42 Dose: 2 units Documented by: [id number] Cosigned by: [id number] Admin: 03/22/19 18:27 Dose: 4 units Documented by: [id number] Cosigned by: [id number] Admin: 03/22/19 13:00 Dose: 7 units Documented by: [id number] Cosigned by: [id number] Admin: 03/22/19 09:00 Dose: 3 units Documented by: [id number] Cosigned by: [id number] Admin: 03/21/19 21:12 Dose: 4 units Documented by: [id number] Cosigned by: [id number] Admin: 03/21/19 18:00 Dose: 8 units Documented by: [id number] Cosigned by: [id number] Admin: 03/21/19 12:43 Dose: 4 units Documented by: [id number] Cosigned by: [id number] Admin: 03/21/19 09:24 Dose: Not Given Documented by: [id number] Cosigned by: [id number] Admin: 03/20/19 21:27 Dose: 5 units Documented by: [id number] Cosigned by: [id number] Admin: 03/20/19 17:52 Dose: 5 units Documented by: [id number] Cosigned by: [id number] Admin: 03/20/19 13:51 Dose: Not Given Documented by: [id number] Cosigned by: [id number] Admin: 03/20/19 08:55 Dose: Not Given Documented by: [id number] Admin: 03/19/19 20:54 Dose: Not Given Documented by: [id number] Cosigned by: [id number] Admin: 03/19/19 17:19 Dose: Not Given Documented by: [id number] Cosigned by: [id number] Admin: 03/19/19 12:35 Dose: Not Given Documented by: [id number] Cosigned by: [id number] Admin: 03/19/19 08:12 Dose: 5 units Documented by: [id number] Cosigned by: [id number] Admin: 03/18/19 20:52 Dose: 3 units Documented by: [id number] Cosigned by: [id number] Admin: 03/18/19 18:00 Dose: 4 units Documented by: [id number] Cosigned by: [id number] Admin: 03/18/19 12:24 Dose: 3 units Documented by: [id number] Cosigned by: [id number] Admin: 03/18/19 08:35 Dose: 4 units Documented by: [id number] Cosigned by: [id number] Admin: 03/17/19 21:25 Dose: 6 units Documented by: [id number] Cosigned by: [id number] Admin: 03/17/19 17:51 Dose: 5 units Documented by: [id number] Cosigned by: [id number] Admin: 03/17/19 13:29 Dose: 4 units Documented by: [id number] Cosigned by: [id number] Admin: 03/17/19 09:42 Dose: 3 units Documented by: [id number] Cosigned by: [id number] Admin: 03/16/19 21:30 Dose: 3 units Documented by: [id number] Cosigned by: [id number] Admin: 03/16/19 17:43 Dose: 1 units Documented by: [id number] Cosigned by: [id number] Admin: 03/16/19 13:57 Dose: 6 units Documented by: [id number] Cosigned by: [id number] Admin: 03/16/19 09:22 Dose: 6 units Documented by: [id number] Cosigned by: [id number] Admin: 03/15/19 21:04 Dose: 6 units Documented by: [id number] Cosigned by: [id number] Admin: 03/15/19 18:18 Dose: 7 units Documented by: [id number] Cosigned by: [id number] Admin: 03/15/19 13:26 Dose: 5 units Documented by: [id number] Cosigned by: [id number] Admin: 03/15/19 09:22 Dose: 6 units Documented by: [id number] Cosigned by: [id number] Admin: 03/14/19 21:12 Dose: 4 units Documented by: [id number] Cosigned by: [id number] Admin: 03/14/19 17:41 Dose: 5 units Documented by: [id number] Cosigned by: [id number] Admin: 03/14/19 13:44 Dose: 3 units Documented by: [id number] Cosigned by: [id number] Admin: 03/14/19 08:49 Dose: 2 units Documented by: [id number] Cosigned by: [id number] Admin: 03/13/19 21:09 Dose: 2 units Documented by: [id number] Cosigned by: [id number] Admin: 03/13/19 17:12 Dose: Not Given Documented by: [id number] Admin: 03/13/19 12:28 Dose: Not Given Documented by: [id number] Cosigned by: [id number] Admin: 03/13/19 09:05 Dose: Not Given Documented by: [id number] Cosigned by: [id number] Admin: 03/12/19 21:40 Dose: Not Given Documented by: [id number] Cosigned by: [id number] Insulin Glargine (Lantus Solostar Pen) 18 units SC BID [facility] Stop: 04/15/19 20:59 Last Admin: 03/23/19 08:17 Dose: 18 units Documented by: [id number] Cosigned by: [id number] Admin: 03/22/19 20:41 Dose: 18 units Documented by: [id number] Cosigned by: [id number] Admin: 03/22/19 09:02 Dose: 18 units Documented by: [id number] Cosigned by: [id number] Admin: 03/21/19 21:13 Dose: 18 units Documented by: [id number] Cosigned by: [id number] Admin: 03/21/19 09:24 Dose: 18 units Documented by: [id number] Cosigned by: [id number] Admin: 03/20/19 21:26 Dose: 18 units Documented by: [id number] Cosigned by: [id number] Admin: 03/20/19 08:55 Dose: 18 units Documented by: [id number] Cosigned by: [id number] Admin: 03/19/19 20:54 Dose: 18 units Documented by: [id number] Cosigned by: [id number] Admin: 03/19/19 08:11 Dose: 18 units Documented by: [id number] Cosigned by: [id number] Admin: 03/18/19 20:51 Dose: 18 units Documented by: [id number] Cosigned by: [id number] Admin: 03/18/19 08:33 Dose: 18 units Documented by: [id number] Cosigned by: [id number] Admin: 03/17/19 21:24 Dose: 18 units Documented by: [id number] Cosigned by: [id number] Admin: 03/17/19 09:43 Dose: 18 units Documented by: [id number] Cosigned by: [id number] Admin: 03/16/19 21:29 Dose: 18 units Documented by: [id number] Cosigned by: [id number] Lactulose (Chronulac) 20 gm PO BID [facility] Stop: 04/14/19 09:59 Last Admin: 03/23/19 08:14 Dose: 20 gm Documented by: [id number] Admin: 03/22/19 20:40 Dose: 20 gm Documented by: [id number] Admin: 03/22/19 09:01 Dose: 20 gm Documented by: [id number] Admin: 03/21/19 21:07 Dose: 20 gm Documented by: [id number] Admin: 03/21/19 08:35 Dose: 20 gm Documented by: [id number] Admin: 03/20/19 21:24 Dose: 20 gm Documented by: [id number] Admin: 03/20/19 08:02 Dose: 20 gm Documented by: [id number] Admin: 03/19/19 20:52 Dose: 20 gm Documented by: [id number] Admin: 03/19/19 08:07 Dose: 20 gm Documented by: [id number] Admin: 03/18/19 20:55 Dose: 20 gm Documented by: [id number] Admin: 03/18/19 08:30 Dose: 20 gm Documented by: [id number] Admin: 03/17/19 21:24 Dose: 20 gm Documented by: [id number] Admin: 03/17/19 08:23 Dose: 20 gm Documented by: [id number] Admin: 03/16/19 21:29 Dose: 20 gm Documented by: [id number] Admin: 03/16/19 08:20 Dose: 20 gm Documented by: [id number] Admin: 03/15/19 20:09 Dose: 20 gm Documented by: [id number] Loratadine (Claritin) 10 mg PO HS [facility] Stop: 04/11/19 20:59 Last Admin: 03/22/19 20:40 Dose: 10 mg Documented by: [id number] Admin: 03/21/19 21:10 Dose: 10 mg Documented by: [id number] Admin: 03/20/19 21:25 Dose: 10 mg Documented by: [id number] Admin: 03/19/19 20:53 Dose: 10 mg Documented by: [id number] Admin: 03/18/19 20:53 Dose: 10 mg Documented by: [id number] Admin: 03/17/19 21:24 Dose: 10 mg Documented by: [id number] Admin: 03/16/19 21:29 Dose: 10 mg Documented by: [id number] Admin: 03/15/19 20:09 Dose: 10 mg Documented by: [id number] Admin: 03/14/19 21:22 Dose: 10 mg Documented by: [id number] Admin: 03/13/19 21:07 Dose: 10 mg Documented by: [id number] Admin: 03/12/19 21:49 Dose: 10 mg Documented by: [id number] Metoclopramide HCl (Reglan) 10 mg IV Q8 PRN PRN Reason: Nausea And Vomiting Stop: 04/18/19 15:06 Last Admin: 03/19/19 17:07 Dose: 10 mg Documented by: [id number] Miscellaneous (Fentanyl Patch Check Placement) 1 ea N/A QS [facility] Stop: 04/12/19 00:00 Last Admin: 03/23/19 08:16 Dose: 1 ea Documented by: [id number] Admin: 03/23/19 00:19 Dose: 1 ea Documented by: [id number] Admin: 03/22/19 15:32 Dose: 1 ea Documented by: [id number] Admin: 03/22/19 09:01 Dose: 1 ea Documented by: [id number] Admin: 03/22/19 01:21 Dose: 1 ea Documented by: [id number] Admin: 03/21/19 16:07 Dose: 1 ea Documented by: [id number] Admin: 03/21/19 08:35 Dose: 1 ea Documented by: [id number] Admin: 03/20/19 23:25 Dose: 1 ea Documented by: [id number] Admin: 03/20/19 16:52 Dose: 1 ea Documented by: [id number] Admin: 03/20/19 08:02 Dose: 1 ea Documented by: [id number] Admin: 03/19/19 22:50 Dose: 1 ea Documented by: [id number] Admin: 03/19/19 16:44 Dose: 1 ea Documented by: [id number] Admin: 03/19/19 08:04 Dose: 1 ea Documented by: [id number] Admin: 03/18/19 23:27 Dose: 1 ea Documented by: [id number] Admin: 03/18/19 16:20 Dose: 1 ea Documented by: [id number] Admin: 03/18/19 08:31 Dose: 1 ea Documented by: [id number] Admin: 03/17/19 23:11 Dose: 1 ea Documented by: [id number] Admin: 03/17/19 15:41 Dose: 1 ea Documented by: [id number] Admin: 03/17/19 08:22 Dose: 1 ea Documented by: [id number] Admin: 03/17/19 01:02 Dose: 1 ea Documented by: [id number] Admin: 03/16/19 16:58 Dose: 1 ea Documented by: [id number] Admin: 03/16/19 08:19 Dose: 1 ea Documented by: [id number] Admin: 03/16/19 01:13 Dose: 1 ea Documented by: [id number] Admin: 03/15/19 17:18 Dose: 1 ea Documented by: [id number] Admin: 03/15/19 07:56 Dose: 1 ea Documented by: [id number] Admin: 03/15/19 00:13 Dose: 1 ea Documented by: [id number] Admin: 03/14/19 16:13 Dose: 1 ea Documented by: [id number] Admin: 03/14/19 08:47 Dose: 1 ea Documented by: [id number] Admin: 03/14/19 00:30 Dose: 1 ea Documented by: [id number] Admin: 03/13/19 17:11 Dose: 1 ea Documented by: [id number] Admin: 03/13/19 08:22 Dose: 1 ea Documented by: [id number] Admin: 03/12/19 23:54 Dose: 1 ea Documented by: [id number] Miscellaneous (Fentanyl Patch Remove & Waste) 1 ea N/A Q3D [facility] Stop: 04/14/19 19:35 Last Admin: 03/21/19 21:05 Dose: 1 ea Documented by: [id number] Cosigned by: [id number] Admin: 03/18/19 20:50 Dose: 1 ea Documented by: [id number] Cosigned by: [id number] Admin: 03/15/19 19:28 Dose: 1 ea Documented by: [id number] Cosigned by: [id number] Ondansetron HCl (Zofran) 4 mg IV Q6H PRN PRN Reason: Nausea Stop: 04/12/19 10:45 Last Admin: 03/20/19 14:19 Dose: 4 mg Documented by: [id number] Pantoprazole Sodium (Protonix) 40 mg PO BID [facility] Stop: 04/12/19 20:59 Last Admin: 03/23/19 08:13 Dose: 40 mg Documented by: [id number] Admin: 03/22/19 20:43 Dose: 40 mg Documented by: [id number] Admin: 03/22/19 09:02 Dose: 40 mg Documented by: [id number] Admin: 03/21/19 21:09 Dose: 40 mg Documented by: [id number] Admin: 03/21/19 08:35 Dose: 40 mg Documented by: [id number] Admin: 03/20/19 21:28 Dose: 40 mg Documented by: [id number] Admin: 03/20/19 08:01 Dose: 40 mg Documented by: [id number] Admin: 03/19/19 20:53 Dose: 40 mg Documented by: [id number] Admin: 03/19/19 08:04 Dose: 40 mg Documented by: [id number] Admin: 03/18/19 20:53 Dose: 40 mg Documented by: [id number] Admin: 03/18/19 08:29 Dose: 40 mg Documented by: [id number] Admin: 03/17/19 21:28 Dose: 40 mg Documented by: [id number] Admin: 03/17/19 08:25 Dose: 40 mg Documented by: [id number] Admin: 03/16/19 21:31 Dose: 40 mg Documented by: [id number] Admin: 03/16/19 08:22 Dose: 40 mg Documented by: [id number] Admin: 03/15/19 20:10 Dose: 40 mg Documented by: [id number] Admin: 03/15/19 08:37 Dose: 40 mg Documented by: [id number] Admin: 03/14/19 21:22 Dose: 40 mg Documented by: [id number] Admin: 03/14/19 08:49 Dose: 40 mg Documented by: [id number] Admin: 03/13/19 21:07 Dose: 40 mg Documented by: [id number] Pentoxifylline (Trental) 400 mg PO BID [facility] Stop: 04/11/19 20:59 Last Admin: 03/23/19 08:14 Dose: 400 mg Documented by: [id number] Admin: 03/22/19 20:44 Dose: 400 mg Documented by: [id number] Admin: 03/22/19 09:01 Dose: 400 mg Documented by: [id number] Admin: 03/21/19 21:11 Dose: 400 mg Documented by: [id number] Admin: 03/21/19 08:35 Dose: 400 mg Documented by: [id number] Admin: 03/20/19 21:29 Dose: 400 mg Documented by: [id number] Admin: 03/20/19 08:01 Dose: 400 mg Documented by: [id number] Admin: 03/19/19 20:53 Dose: 400 mg Documented by: [id number] Admin: 03/19/19 08:06 Dose: 400 mg Documented by: [id number] Admin: 03/18/19 20:54 Dose: 400 mg Documented by: [id number] Admin: 03/18/19 08:29 Dose: 400 mg Documented by: [id number] Admin: 03/17/19 21:28 Dose: 400 mg Documented by: [id number] Admin: 03/17/19 08:25 Dose: 400 mg Documented by: [id number] Admin: 03/16/19 21:31 Dose: 400 mg Documented by: [id number] Admin: 03/16/19 08:23 Dose: 400 mg Documented by: [id number] Admin: 03/15/19 20:10 Dose: 400 mg Documented by: [id number] Admin: 03/15/19 08:37 Dose: 400 mg Documented by: [id number] Admin: 03/14/19 21:23 Dose: 400 mg Documented by: [id number] Admin: 03/14/19 08:49 Dose: 400 mg Documented by: [id number] Admin: 03/13/19 21:07 Dose: 400 mg Documented by: [id number] Admin: 03/13/19 08:25 Dose: 400 mg Documented by: [id number] Admin: 03/12/19 21:51 Dose: 400 mg Documented by: [id number] Rifaximin (Xifaxan) 550 mg PO BID ALINA Stop: 04/11/19 20:59 Last Admin: 03/23/19 08:14 Dose: 550 mg Documented by: [id number] Admin: 03/22/19 20:44 Dose: 550 mg Documented by: [id number] Admin: 03/22/19 09:02 Dose: 550 mg Documented by: [id number] Admin: 03/21/19 21:10 Dose: 550 mg Documented by: [id number] Admin: 03/21/19 08:35 Dose: 550 mg Documented by: [id number] Admin: 03/20/19 21:29 Dose: 550 mg Documented by: [id number] Admin: 03/20/19 08:01 Dose: 550 mg Documented by: [id number] Admin: 03/19/19 20:53 Dose: 550 mg Documented by: [id number] Admin: 03/19/19 08:06 Dose: 550 mg Documented by: [id number] Admin: 03/18/19 20:54 Dose: 550 mg Documented by: [id number] Admin: 03/18/19 08:30 Dose: 550 mg Documented by: [id number] Admin: 03/17/19 21:28 Dose: 550 mg Documented by: [id number] Admin: 03/17/19 08:26 Dose: 550 mg Documented by: [id number] Admin: 03/16/19 21:31 Dose: 550 mg Documented by: [id number] Admin: 03/16/19 08:24 Dose: 550 mg Documented by: [id number] Admin: 03/15/19 20:10 Dose: 550 mg Documented by: [id number] Admin: 03/15/19 08:38 Dose: 550 mg Documented by: [id number] Admin: 03/14/19 21:22 Dose: 550 mg Documented by: [id number] Admin: 03/14/19 08:49 Dose: 550 mg Documented by: [id number] Admin: 03/13/19 21:06 Dose: 550 mg Documented by: [id number] Admin: 03/13/19 08:26 Dose: 550 mg Documented by: [id number] Admin: 03/12/19 21:49 Dose: 550 mg Documented by: [id number] Spironolactone (Aldactone) 50 mg PO QAM ALINA Stop: 04/16/19 10:44 Last Admin: 03/23/19 08:14 Dose: 50 mg Documented by: [id number] Admin: 03/22/19 09:32 Dose: 50 mg Documented by: [id number] Admin: 03/21/19 08:35 Dose: 50 mg Documented by: [id number] Admin: 03/20/19 08:02 Dose: 50 mg Documented by: [id number] Admin: 03/19/19 08:06 Dose: 50 mg Documented by: [id number] Admin: 03/18/19 08:29 Dose: 50 mg Documented by: [id number] Admin: 03/17/19 11:19 Dose: 50 mg Documented by: [id number] Trimethoprim/Sulfamethoxazole (Septra Ds 800/160mg Tab) 1 tab PO MoWeFr@0900 [facility] Stop: 04/12/19 08:59 Last Admin: 03/13/19 08:26 Dose: 1 tab Documented by: [id number]
[2019-03-23] MEDS: CASPOFUNGIN 50 MG in SODIUM CHLORIDE 0.9% 250 ML IV SCH (16:38)
[2019-03-23] MEDS: AMPHOTERICIN B 50 MG in WATER, STERILE 1,000 ML IR SCH (16:39)
[2019-03-23] MEDS: BUMETANIDE 2 MG in SYRINGE 0 ML IV SCH (16:39)
[2019-03-23] MEDS: DAPTOmycin 250 MG in SYRINGE 0 ML IV SCH (18:08)
[2019-03-23] MEDS: OXYCODONE HCL IR 5 MG TAB (IMMEDIATE RELEASE) PO PRN (18:12)
[2019-03-23] MEDS: ATORVASTATIN 10 MG TAB PO SCH (20:32)
[2019-03-23] MEDS: LORATADINE 10 MG TAB PO SCH (20:32)
[2019-03-23] MEDS: predniSONE 10 MG TABLET PO SCH (20:33)
--- NOTE | 2019-03-23 21:22 | Infectious Disease Progress Nt ---
Date of Service March 23, 2019 Assessment & Plan (1) Abdominal wall cellulitis: Patient with abdominal wall cellulitis, slowly improving with Unasyn. Has Christina glabrata urinary tract infection, treatment with IV caspofungin and amphotericin B bladder irrigation. Will follow. (2) Candidal UTI (urinary tract infection): Subjective Patient seen in follow-up for peritonitis, abdominal wall cellulitis, and fungal urinary tract infection. Now on caspofungin. Still weak and debilitated, mild abdominal pain today. Currently afebrile. Review of Systems Review of Systems: All systems reviewed & are unremarkable except as noted in HPI & below Physical Exam Constitutional: WD/WN, vitals as above + ill appearing Eyes: PERRL, conjunctivae normal, anicteric sclerae ENMT: external ear and nose normal, oropharynx normal Neck: trachea midline, no thyromegaly Respiratory: normal respiratory effort, lungs clear to auscultation Cardiovascular: RRR, no murmur, no edema Gastrointestinal (Abdomen): Inspection/Auscultation: + abdomen distended and normal bowel sounds Percussion/Palpation: abdomen nontender, no hepatosplenomegaly and no abdominal mass Musculoskeletal: no cyanosis or clubbing, extremities motor strength 5/5 Skin: no rashes, warm and dry Neurologic: moves all extremities; no focal motor deficits Psychiatric: Orientation: alert and oriented x 3 Affect: + depressed affect Lymphatic: no cervical or axillary lymphadenopathy no inguinal lym phadenopathy Results & Data Vital Signs (Past 12 Hours) Vital Signs Temp Pulse Resp BP Pulse Ox 03/23/19 15:15 36.7 C 113 H 16 137/81 96 Laboratory Results Short CBC 03/23/19 Range/Units 09:44 WBC 9.79 (4.8-10.8) K/uL Hgb 10.5 L (14.0-18.0) g/dL Hct 32.3 L (42-52) % Plt Count 46 L (130-400) K/uL BMP 03/23/19 09:44 Sodium 130 L Potassium 4.0 Chloride 98 Carbon Dioxide 21 BUN 38 H Creatinine 1.70 H Glucose 163 H Calcium 8.4 L Liver Function 03/23/19 Range/Units 09:44 Total Bilirubin 2.5 H (0.2-1) mg/dl AST 43 H (15-37) U/L ALT 28 (12-78) U/L Alkaline Phosphatase 359 H (45-117) U/L Albumin 2.1 L (3.4-5.0) gm/dl Diagnostic Findings Microbiology 03/19/19 18:37 Urine,Indwelling Cath Urine Culture - Final Christina glabrata 03/13/19 Unknown Peritoneal Fluid Gram Stain - Final 03/13/19 Unknown Peritoneal Fluid Aerobic and Anaerobic Culture - Final Cutibacterium (Propioni) acnes 03/12/19 20:44 Blood Blood Culture - Final No growth 03/12/19 20:31 Blood Blood Culture - Final No growth 03/13/19 Unknown Peritoneal Fluid Acid Fast Bacilli Smear - Final 03/13/19 Unknown Peritoneal Fluid Acid Fast Bacilli Culture - Preliminary No Acid-Fast Bacilli Isolated - Report 1, Additional Report to Follow.
[2019-03-24] MEDS: AMPICILLIN/SULBACTAM SOD 3,000 MG in 0.9 % SODIUM CHLORIDE 100 ML IV SCH ×4 (01:26→19:54)
[2019-03-24 07:07] LABS: Mean Corpuscular Hgb Conc 33.1 g/dL (32-36)
[2019-03-24 07:27] LABS: Hematocrit (blood only) 30.2 % (42-52); Mean Corpuscular Volume 74.4 fL (80-100); RDW Coefficient of Variation 23.6 % (11.5-14.5); RDW Standard Deviation 63.7 fL (36.4-46.3); Red Blood Count 4.06 M/uL (4.7-6.1); White Blood Count 9.41 K/uL (4.8-10.8)
[2019-03-24] MEDS: ARTIFICIAL TEARS OP SCH ×2 (07:41→20:38)
[2019-03-24] MEDS: predniSONE 10 MG TABLET PO SCH ×2 (07:42→20:42)
[2019-03-24] MEDS: SPIRONOLACTONE 25 MG TAB PO SCH (07:43)
[2019-03-24] MEDS: PENTOXIFYLLINE 400MG EXT REL TAB PO SCH ×2 (07:43→20:40)
[2019-03-24] MEDS: PANTOprazole 40 MG TAB PO SCH ×2 (07:43→20:42)
[2019-03-24] MEDS: LACTULOSE SYRUP 20 GM/30 ML UDC PO SCH ×2 (07:43→20:38)
[2019-03-24] MEDS: RIFAXIMIN 550 MG TABLET PO SCH ×2 (07:43→20:41)
[2019-03-24] MEDS: CHECK FENTANYL PATCH PLACEMENT SCH ×6 (07:44→23:43)
[2019-03-24 07:45] LABS: BUN Creatinine Ratio 22.4 (10-20); Calcium 8.1 mg/dl (8.5-10.1); Creatinine Clr Calc Pharmacy 43.1 ml/min; Est GFR (African American) 48.7
[2019-03-24 07:47] LABS: Albumin Globulin Ratio 0.6 (0.9-2); Bilirubin,Total 2.4 mg/dl (0.2-1); Globulin 3.3 gm/dl (2.5-4.0); Total Protein 5.3 gm/dl (6.4-8.2)
[2019-03-24 07:53] LABS: Anisocytosis Present; Echinocytes 2+; Immature Granulocytes # (auto) 0.07 K/uL (0.00-0.02); Immature Granulocytes % (auto) 0.7 %; Lymphocytes # (auto) 0.57 K/uL (1.2-3.4); Lymphocytes % (auto) 6.1 %; Monocytes # (auto) 0.28 K/uL (0.11-0.59); Neutrophils # (auto) 8.49 K/uL (1.4-6.5); Neutrophils % (auto) 90.2 %; Platelet Count 60 K/uL (130-400); Platelet Estimate Decreased (Normal)
[2019-03-24] MEDS: BUMETANIDE 2 MG in SYRINGE 0 ML IV SCH ×2 (08:20→17:59)
[2019-03-24] MEDS: INSULIN GLARGINE SOLOSTAR 100 UNITS/ML 3 ML PEN SC SCH ×2 (08:23→20:43)
[2019-03-24] MEDS: INSULIN ASPART 100 UNITS/ML 3 ML PEN SC SCH ×4 (08:24→20:39)
[2019-03-24] MEDS ORDERED: FLUOXETINE HCL 20 MG CAP PO SCH (09:00)
[2019-03-24] MEDS: ONDANSETRON INJ 2 MG/ML 2 ML VIAL IV PRN (11:11)
[2019-03-24] MEDS: OXYCODONE HCL IR 5 MG TAB (IMMEDIATE RELEASE) PO PRN ×2 (12:00→18:40)
--- NOTE | 2019-03-24 13:01 | Hospitalist Progress Note ---
Date of Service March 24, 2019 Assessment & Plan (1) SBP (spontaneous bacterial peritonitis): Peritoneal fluid cell counts at admission s/p diagnostic paracentesis consistent with SBP. He was on cipro IV since admission w/o significant general improvement. His culture grew cutibacterium acnes (gram positive noel). The Cipro was changed to IV unasyn on 03/20 It is difficult to say if this pathogen is truly pathogenic or contaminant but given how immunocompromised he is (chronic prednisone use, etc) would consider pathogenic unless proven otherwise. GI says to consider a repeat diagnostic paracentesis after improvement of his abdominal wall cellulitis if he continues to have abdominal pain Clinically his abd pain is better which would argue SBP is resolving. -after adequate treatment of this episode of SBP he likely will need cipro as SBP prophylaxis thereafter. -Continue IV Unasyn-day #5 and consider switching to Augmentin prior to discharge, will defer to ID-plan for 14 days of treatment (2) Abdominal wall cellulitis: Cellulitis seems improved today on my reexamination Cont unasyn (being used for SBP but should cover the skin as well). Cont daptomycin for MRSA coverage. ID consultation appreciated. (3) Candidal UTI (urinary tract infection): day #4 amphotericin bladder irrigation -- plan total 5 days. cont IV caspofungin - day #4-likely 7-day course but will discuss with infectious disease. of note - pt has had fungemia in the past per his family during an admission at [place]. appreciate Dr Banks's assistance. (4) Gross hematuria: resolved outpatient cystoscopy by urology (5) CKD stage 3 due to type 2 diabetes mellitus: creatinine at baseline is around 1.5 Now on IV Bumex, however creatinine is fairly stable and actually improved from previous at 1.67 nephrology following; appreciate their help -Follow BMP (6) LETTY (acute kidney injury): Peak Cr was 2.1 on admission with infection and had some improvement with giving albumin and normal saline Creatinine with slight increase again to 1.70 after using IV Bumex which is now improved today to 1.67 Discussed with nephrology-he is significantly edematous and had gained a large amount of fluid weight this admission. He is uncomfortable with his scrotal and penile edema Discussed with the patient, his family, and nephrology about the fact that his creatinine may rise with continued efforts to diuresis, however it seems to be improving today even with increased dose of Bumex Urine output is improved today His albumin is low at 2.0 which will make a loop diuretic less effective -Crease dose of Bumex at 2 mg IV twice daily -Follow BMP again in the morning -Renally dose medications -Avoid nephrotoxins -Follow urine output (7) Hyponatremia: acute/chronic, sodium today is lower at 128 TSH, cortisol wnl Urine Na very low uric acid is normal which would argue against SIADH remains on aldactone daily, IV Bumex as above respiratory status stable -Follow BMP (8) Sarcoidosis: long-standing, steroid-dependent (prednisone 20mg/day) in light of infections is receiving stress dose steroids-we will start to taper down his blood pressures are stable-will decrease to 25 mg daily for tomorrow (9) Cirrhosis: Secondary to sarcoid, medication toxicity, etc He also used to consume wine on a daily basis and there may be some alcohol component Continues with intermittent encephalopathy and has had elevated ammonia levels this admission-encephalopathy is resolved today No bowel movement in 2 days -Cont lactulose and rifaximin for hepatic encephalopathy prophylaxis and will increase lactulose dose tomorrow if still no bowel movement -Continue to treat SBP as above -Aldactone continues -Continue IV bumex -appreciate GI consult & recs -cont PPI twice daily (h/o multiple upper GI issues) -Needs outpatient GI follow-up after discharge (10) DM type 2 (diabetes mellitus, type 2): BSGs acceptable at this time cont lantus cont novolog (11) Lumbar disc herniation with radiculopathy: with resulting acquired paraplegic type state patient no longer walks also with chronic back pain secondary to this issue cont fentanyl patch and will increase to 37.5 to avoid oral oxycodone usage and to achieve better pain control oxycodone prn cautiously-decreased dose to 2.5 mg as he is too sedated to get a higher dose (12) 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 dopplers neg for DVT; doesn't rule out PE but suspicion for PE is low at this time -Follow (15) Depression: on 40mg prozac long time depression is quite severe Discussed the case with psychiatry-given ongoing multiple comorbidities, low platelets, hyponatremia, and encephalopathy, psychiatry actually recommends titrating down on his Prozac to 20 mg daily today and eventually off -Psychiatry recommends eventually starting either mirtazapine or Lexapro (16) DVT prophylaxis: SCDs, chemical means contraindicated due to low platelets Disposition - will likely need SNF for rehab since he normally can assist with transfer from bed to wheelchair He is severely debilitated and he can't even do these things right now I had a lengthy discussion on 03/23 with the patient's and stepdaughter at the bedside regarding his poor prognosis and goals of care. Patient is now alert and oriented and also is agreeable to palliative care consultation on Monday He wants to discuss his CODE STATUS with his before changing it Subjective Patient has some right-sided abdominal pain, otherwise is more alert today, not confused. Denies chest pain but does have some occasional shortness of breath. He still has no appetite and has barely eaten anything today. His lunch is sitting in front of him. He is making plenty of urine. He is interested in a palliative care consult. When asked what his wishes were for moving forward if his condition were to deteriorate, and in discussion of CODE STATUS, he states "I would have to chew on that for a little bit." Review of Systems Review of Systems: All systems reviewed & are unremarkable except as noted in HPI & below Physical Exam Constitutional: WD/WN, vitals as above (Awake and alert and having normal conversation) + obese; no acute distress Eyes: PERRL, conjunctivae normal, anicteric sclerae (With bilateral proptosis) Neck: trachea midline, no thyromegaly Respiratory: normal respiratory effort Auscultation: + diminished lung sounds (At the bases bilaterally); no crackles, no rhonchi and no wheezes Cardiovascular: Rate/Rhythm: regular rate and regular rhythm Heart Sounds: + murmur (2/6 at RUSB) Extremities: + edema (1-2+ pitting edema of the LEs to the thighs bilaterally) Gastrointestinal (Abdomen): Inspection/Auscultation: + abdomen abnormal to inspection (very large LLQ hernia, reducible and nontender) Percussion/Palpation: abdomen soft; abdomen nontender and abdomen not rigid Musculoskeletal: Extremities: no cyanosis and no clubbing Skin: + wound (multiple scabbed over lesions on all extremities covered with dressings) and + erythema (Mild erythema of the left lateral abdominal wall that is warm to the touch improved from previous) Neurologic: awake; not confused Psychiatric: Orientation: alert and oriented x 3 Eye Contact: + fair eye contact Mood: + depressed mood Genitourinary: + scrotum abnormality (With penile and scrotal edema-moderate, Verma catheter in place, no hematuria) Results & Data Vital Signs (Past 12 Hours) Vital Signs Temp Pulse Resp BP BP Pulse Ox 03/24/19 08:51 36.7 C 98 H 20 124/81 96 03/24/19 01:42 36.8 C 112 H 24 117/75 94 Laboratory Results 03/24/19 03/24/19 03/24/19 Range/Units 11:53 07:59 06:55 WBC (4.8-10.8) K/uL RBC (4.7-6.1) M/uL Hgb (14.0-18.0) g/dL Hct (42-52) % MCV (80-100) fL MCH (25-34) pg MCHC (32-36) g/dL RDW Std Deviation (36.4-46.3) fL RDW Coeff of Curt (11.5-14.5) % Plt Count (130-400) K/uL Immature Gran % (Auto) % Neut % (Auto) % Lymph % (Auto) % [place] % (Auto) % Eos % (Auto) % Baso % (Auto) % Immature Gran # (Auto) (0.00-0.02) K/uL Neut # (Auto) (1.4-6.5) K/uL Lymph # (Auto) (1.2-3.4) K/uL [place] # (Auto) (0.11-0.59) K/uL Eos # (Auto) (0-0.5) K/uL Baso # (Auto) (0-0.2) K/uL Platelet Estimate (Normal) Anisocytosis Echinocytes Sodium (136-145) mmol/L Potassium (3.5-5.1) mmol/L Chloride (98-107) mmol/L Carbon Dioxide (21-32) mmol/L Anion Gap (3-11) BUN (7-18) mg/dl Creatinine (0.6-1.4) mg/dl Est Cr Clr Drug Dosing ml/min Est GFR ( Amer) Est GFR (Non-Af Amer) BUN/Creatinine Ratio (10-20) Glucose (70-99) mg/dl POC Glucose 196 H 146 H (70-99) Calcium (8.5-10.1) mg/dl Total Bilirubin (0.2-1) mg/dl AST (15-37) U/L ALT (12-78) U/L Alkaline Phosphatase (45-117) U/L Ammonia 12.0 (11-32) umol/L Total Protein (6.4-8.2) gm/dl Albumin (3.4-5.0) gm/dl Globulin (2.5-4.0) gm/dl Albumin/Globulin Ratio (0.9-2) 03/24/19 03/24/19 03/23/19 Range/Units 06:55 06:55 20:29 WBC 9.41 (4.8-10.8) K/uL RBC 4.06 L (4.7-6.1) M/uL Hgb 10.0 L (14.0-18.0) g/dL Hct 30.2 L (42-52) % MCV 74.4 L (80-100) fL MCH 24.6 L (25-34) pg MCHC 33.1 (32-36) g/dL RDW Std Deviation 63.7 H (36.4-46.3) fL RDW Coeff of Curt 23.6 H (11.5-14.5) % Plt Count 60 L (130-400) K/uL Immature Gran % (Auto) 0.7 % Neut % (Auto) 90.2 % Lymph % (Auto) 6.1 % [place] % (Auto) 3.0 % Eos % (Auto) 0.0 % Baso % (Auto) 0.0 % Immature Gran # (Auto) 0.07 H (0.00-0.02) K/uL Neut # (Auto) 8.49 H (1.4-6.5) K/uL Lymph # (Auto) 0.57 L (1.2-3.4) K/uL [place] # (Auto) 0.28 (0.11-0.59) K/uL Eos # (Auto) 0.00 (0-0.5) K/uL Baso # (Auto) 0.00 (0-0.2) K/uL Platelet Estimate Decreased L (Normal) Anisocytosis Present Echinocytes 2+ Sodium 128 L (136-145) mmol/L Potassium 4.0 (3.5-5.1) mmol/L Chloride 97 L (98-107) mmol/L Carbon Dioxide 24 (21-32) mmol/L Anion Gap 7.0 (3-11) BUN 37 H (7-18) mg/dl Creatinine 1.67 H (0.6-1.4) mg/dl Est Cr Clr Drug Dosing 43.1 ml/min Est GFR ( Amer) 48.7 Est GFR (Non-Af Amer) 42.0 BUN/Creatinine Ratio 22.4 H (10-20) Glucose 145 H (70-99) mg/dl POC Glucose 192 H (70-99) Calcium 8.1 L (8.5-10.1) mg/dl Total Bilirubin 2.4 H (0.2-1) mg/dl AST 36 (15-37) U/L ALT 27 (12-78) U/L Alkaline Phosphatase 389 H (45-117) U/L Ammonia (11-32) umol/L Total Protein 5.3 L (6.4-8.2) gm/dl Albumin 2.0 L (3.4-5.0) gm/dl Globulin 3.3 (2.5-4.0) gm/dl Albumin/Globulin Ratio 0.6 L (0.9-2) 03/23/19 Range/Units 16:49 WBC (4.8-10.8) K/uL RBC (4.7-6.1) M/uL Hgb (14.0-18.0) g/dL Hct (42-52) % MCV (80-100) fL MCH (25-34) pg MCHC (32-36) g/dL RDW Std Deviation (36.4-46.3) fL RDW Coeff of Curt (11.5-14.5) % Plt Count (130-400) K/uL Immature Gran % (Auto) % Neut % (Auto) % Lymph % (Auto) % [place] % (Auto) % Eos % (Auto) % Baso % (Auto) % Immature Gran # (Auto) (0.00-0.02) K/uL Neut # (Auto) (1.4-6.5) K/uL Lymph # (Auto) (1.2-3.4) K/uL [place] # (Auto) (0.11-0.59) K/uL Eos # (Auto) (0-0.5) K/uL Baso # (Auto) (0-0.2) K/uL Platelet Estimate (Normal) Anisocytosis Echinocytes Sodium (136-145) mmol/L Potassium (3.5-5.1) mmol/L Chloride (98-107) mmol/L Carbon Dioxide (21-32) mmol/L Anion Gap (3-11) BUN (7-18) mg/dl Creatinine (0.6-1.4) mg/dl Est Cr Clr Drug Dosing ml/min Est GFR ( Amer) Est GFR (Non-Af Amer) BUN/Creatinine Ratio (10-20) Glucose (70-99) mg/dl POC Glucose 159 H (70-99) Calcium (8.5-10.1) mg/dl Total Bilirubin (0.2-1) mg/dl AST (15-37) U/L ALT (12-78) U/L Alkaline Phosphatase (45-117) U/L Ammonia (11-32) umol/L Total Protein (6.4-8.2) gm/dl Albumin (3.4-5.0) gm/dl Globulin (2.5-4.0) gm/dl Albumin/Globulin Ratio (0.9-2) (1) Cirrhosis Hepatic cirrhosis type: alcoholic cirrhosis Ascites presence: with ascites Qualified Code(s): K70.31 - Alcoholic cirrhosis of liver with ascites (2) DM type 2 (diabetes mellitus, type 2) Diabetes mellitus terminal worker insulin use: with terminal worker use Diabetes mellitus complication status: without complication Qualified Code(s): E11.9 - Type 2 diabetes mellitus without complications; 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
[2019-03-24] MEDS: fentaNYL 25 MCG/HR TDSY TD SCH (13:21)
[2019-03-24] MEDS: fentaNYL 12 MCG/HR TDSY TD SCH (13:22)
[2019-03-24] MEDS: DICLOFENAC SOD 1% GEL 100 GM TUBE EXT PRN (13:38)
[2019-03-24] MEDS ORDERED: OXYCODONE HCL IR 5 MG TAB (IMMEDIATE RELEASE) PO STA (14:53)
[2019-03-24] MEDS: CASPOFUNGIN 50 MG in SODIUM CHLORIDE 0.9% 250 ML IV SCH (16:10)
[2019-03-24] MEDS: AMPHOTERICIN B 50 MG in WATER, STERILE 1,000 ML IR SCH (16:10)
--- NOTE | 2019-03-24 16:11 | Gastroenterology Progress Note ---
Date of Service March 24, 2019 Assessment & Plan (1) SBP (spontaneous bacterial peritonitis): Continue abx per ID which will cover SBP if from Cutibacterium and also celluitis--once cellulitis resolves if still having abd pain then do paracentesis to check cell count to document if that is improved. Per my discussion with DR Mast who spoke with radiology that the area called loculated by radiology truly does communicate with rest of abdomen and that area is what is tapped by radiology. abd pain--the RLQ pain he is having does not seem to fit with the infection SBP on the left. cellulitis--per ID confusion---stable anemia--no evidence of GI bleeding this admit. hepatic encephalopathy continue Rifaxamin and lactulose. LETTY per renal Subjective cc f/u SBP, cellulitis HPI Pt states nausea today and having RLQ pain. Physical Exam Constitutional: WD/WN, vitals as above Cardiovascular: RRR, no murmur, no edema Rate/Rhythm: regular rate Heart Sounds: normal, physiologic split S2 Gastrointestinal (Abdomen): pos bs, soft, mildly distended abdomen, no guarding nor rebound, cellulitis stable to better. area he points to with RLQ is almost inguinal Psychiatric: A+Ox3, euthymic affect Results & Data Vital Signs (Past 12 Hours) Vital Signs Temp Pulse Resp BP Pulse Ox 03/24/19 08:51 36.7 C 98 H 20 124/81 96
[2019-03-24] MEDS: DAPTOmycin 250 MG in SYRINGE 0 ML IV SCH (17:59)
[2019-03-24] MEDS: LORATADINE 10 MG TAB PO SCH (20:42)
[2019-03-24] MEDS: ATORVASTATIN 10 MG TAB PO SCH (20:43)
[2019-03-25] MEDS: AMPICILLIN/SULBACTAM SOD 3,000 MG in 0.9 % SODIUM CHLORIDE 100 ML IV SCH ×4 (01:34→18:05)
[2019-03-25] MEDS: PANTOprazole 40 MG TAB PO SCH ×2 (07:16→20:31)
[2019-03-25] MEDS: OXYCODONE HCL IR 5 MG TAB (IMMEDIATE RELEASE) PO PRN ×3 (07:16→20:27)
[2019-03-25] MEDS: PENTOXIFYLLINE 400MG EXT REL TAB PO SCH ×2 (07:17→20:30)
[2019-03-25] MEDS: predniSONE 20 MG TAB PO SCH (07:17)
[2019-03-25] MEDS: LACTULOSE SYRUP 20 GM/30 ML UDC PO SCH ×3 (07:17→20:44)
[2019-03-25] MEDS: SPIRONOLACTONE 25 MG TAB PO SCH (07:17)
[2019-03-25] MEDS: DICLOFENAC SOD 1% GEL 100 GM TUBE EXT PRN ×2 (07:18→20:38)
[2019-03-25] MEDS: ARTIFICIAL TEARS OP SCH ×2 (07:19→20:38)
[2019-03-25 07:31] LABS: Mean Corpuscular Hgb Conc 32.7 g/dL (32-36)
[2019-03-25 07:44] LABS: Hematocrit (blood only) 33.6 % (42-52); RDW Coefficient of Variation 23.6 % (11.5-14.5); RDW Standard Deviation 63.3 fL (36.4-46.3); Red Blood Count 4.54 M/uL (4.7-6.1); White Blood Count 13.03 K/uL (4.8-10.8)
[2019-03-25] MEDS: BUMETANIDE 2 MG in SYRINGE 0 ML IV SCH ×2 (07:55→16:45)
[2019-03-25 07:58] LABS: Anisocytosis Present; Basophils # (auto) 0.02 K/uL (0-0.2); Basophils % (auto) 0.2 %; Echinocytes 2+; Immature Granulocytes # (auto) 0.14 K/uL (0.00-0.02); Immature Granulocytes % (auto) 1.1 %; Lymphocytes # (auto) 0.62 K/uL (1.2-3.4); Lymphocytes % (auto) 4.8 %; Microcytosis Present; Monocytes # (auto) 0.48 K/uL (0.11-0.59); Monocytes % (auto) 3.7 %; Neutrophils # (auto) 11.77 K/uL (1.4-6.5); Neutrophils % (auto) 90.2 %; Platelet Count 82 K/uL (130-400); Platelet Estimate Decreased (Normal)
[2019-03-25 08:01] LABS: Albumin Level 2.1 gm/dl (3.4-5.0); BUN Creatinine Ratio 23.3 (10-20); Calcium 8.6 mg/dl (8.5-10.1); Creatinine Clr Calc Pharmacy 41.9 ml/min; Est GFR (Non-African American) 39.7; Potassium 4.2 mmol/L (3.5-5.1)
[2019-03-25 08:04] LABS: Albumin Globulin Ratio 0.6 (0.9-2); Bilirubin,Total 2.6 mg/dl (0.2-1); Globulin 3.5 gm/dl (2.5-4.0); Total Protein 5.6 gm/dl (6.4-8.2)
[2019-03-25] MEDS: CHECK FENTANYL PATCH PLACEMENT SCH ×4 (08:04→15:42)
[2019-03-25] MEDS: INSULIN GLARGINE SOLOSTAR 100 UNITS/ML 3 ML PEN SC SCH ×2 (08:31→20:49)
[2019-03-25] MEDS: ONDANSETRON INJ 2 MG/ML 2 ML VIAL IV PRN ×3 (08:31→20:26)
[2019-03-25] MEDS ORDERED: predniSONE 5 MG TAB PO SCH (09:00)
[2019-03-25] MEDS: INSULIN ASPART 100 UNITS/ML 3 ML PEN SC SCH ×4 (09:08→20:48)
[2019-03-25] MEDS: RIFAXIMIN 550 MG TABLET PO SCH ×2 (09:08→20:29)
[2019-03-25] MEDS: CASPOFUNGIN 50 MG in SODIUM CHLORIDE 0.9% 250 ML IV SCH (15:40)
[2019-03-25] MEDS: AMPHOTERICIN B 50 MG in WATER, STERILE 1,000 ML IR SCH (15:43)
--- NOTE | 2019-03-25 15:43 | Palliative Care Consultation ---
Date of Consultation March 25, 2019 Assessment & Plan (1) Goals of care, counseling/discussion: Patient's and step daughter at bedside. Patient is a 64-year-old male with a past medical history significant for cirrhosis, [id number], diabetes, CKD stage III, thrombocytopenia who was discharged from [facility] on 02/19 after a 2-week rehab stay for falls. has been able to transfer patient using a slide board up until a few days prior to admission. Patient was having increased weakness and had altered mental status-was brought to the ER on 03/12. Patient was diagnosed with SBP as well as fungal UTI-had been on Cipro without improvement, this was changed to Unasyn on 03/20-patient and family feel that he is making some improvement. He is on amphotericin bladder flushes and caspofungin IV for the fungal infection. Patient had several falls at home-sustained a new compression fracture. Patient rates his pain at an 8.5 out of 10-his fentanyl patch was recently increased to 37 mcg, patient does report some improved pain control. Patient states that 4- 5/10 is an acceptable pain level, 6/10 is on the edge of being unacceptable. Patient also gets PRN Roxanol at 2.5 mg-he required 3 doses in the past 24 hours. Patient reports the Roxanol helps some and last for approximately 1-1/2 hours. Family reports patient very drowsy even on low-dose Roxanol-it is effective in helping his pain, higher doses cause hallucinations. Patient feels his general health is continuing to decline, he is not think he could participate in rehab due to increasing weakness. Discussed patient's multiple medical problems including cirrhosis, difficulty managing ascites due to CKD stage III as well as low albumin. Patient's albumin was 2.0, his INR was 1.3, he is receiving Bumex-BUN increased to 41 with a creatinine 1.75. Patient did have a paracentesis on 03/13-had 1.3 L removed. Discussed CODE STATUS with the patient and family-patient stated he would not want to be put on a ventilator and does not feel that resuscitation would be helpful at this point-patient's CODE STATUS changed to DNR. Spoke with patient and family regarding goals of care-patient's is not sure she can provide care at home, patient stepdaughter lives in [place] but is able to travel back and forth and helps him with his care. Patient would like to think it over as regarding going home with hospice or going to a nursing facility with hospice care. Patient and family also to discuss continued treatments including IV antibiotics as well as continued therapies for his cirrhosis. -Encephalopathy-improved with treatment of SBP and fungal UTI -CODE STATUS-DNR -Cirrhosis-patient continues to have loose stools, refuses lactulose occasionally, continues Xifaxan for now, albumin 2.0-contributing to edema as well as ascites, INR 1.3 -SBP-continue Zosyn and daptomycin, family stated that if they decided to take him home with hospice they would not want to go home on continued IV therapy -Yeast UTI-today should be day 5 of amphotericin bladder irrigation, continue IV caspofungin for now -Sarcoid-on prednisone 25 mg daily-chronic steroid use likely contributing to infections -Back pain-due to compression fracture-pain control improved with increase fentanyl patch to 37 mcg, continue PRN Roxanol -CKD stage III-contributing to difficulty diuresing -DM-continue current insulin regime -Ascites-status post paracentesis on 03/09 4-1.3 L removed. Difficulty managing edema and ascites due to CKD Collaborated with case management-will meet with family to discuss discharge planning and care options including hospice either at home or in a facility Will continue to follow and assist patient and family with medical decision making Will plan to fill out POLST form next time I meet with patient and family History of Present Illness Reason for Consultation: Address CODE STATUS and goals of care Requesting Physician: Dr. Rita Mast Attending Physician: Rita Mast MD History of Present Illness Patient's and step daughter at bedside. Patient is a 64-year-old male with a past medical history significant for cirrhosis, ooxzhtawzov-fbcsecl-[id number], diabetes, CKD stage III, thrombocytopenia who was discharged from [facility] on 02/19 after a 2-week rehab stay for falls. has been able to transfer patient using a slide board up until a few days prior to admission. Patient was having increased weakness and had altered mental status-was brought to the ER on 03/12. Patient was diagnosed with SBP as well as fungal UTI-had been on Cipro without improvement, this was changed to Unasyn on 03/20-patient and family feel that he is making some improvement. He is on amphotericin bladder flushes and caspofungin IV for the fungal infection. Patient had several falls at home-sustained a new compression fracture. Patient rates his pain at an 8.5 out of 10-his fentanyl patch was recently increased to 37 mcg, patient does report some improved pain control. Patient states that 4-5/10 is an acceptable pain level, 6/10 is on the edge of being unacceptable. Patient also gets PRN Roxanol at 2.5 mg-he required 3 doses in the past 24 hours. Patient reports the Roxanol helps some and last for approximately 1-1/2 hours. Family reports patient very drowsy even on low-dose Roxanol-it is effective in helping his pain, higher doses cause hallucinations. Patient feels his general health is continuing to decline, he is not think he could participate in rehab due to increasing weakness. Discussed patient's multiple medical problems including cirrhosis, difficulty managing ascites due to CKD stage III as well as low albumin. Patient's albumin was 2.0, his INR was 1.3, he is receiving Bumex-BUN increased to 41 with a creatinine 1.75. Patient did have a paracentesis on 03/13-had 1.3 L removed. Discussed CODE STATUS with the patient and family-patient stated he would not want to be put on a ventilator and does not feel that resuscitation would be helpful at this point-patient's CODE STATUS changed to DNR. Spoke with patient and family regarding goals of care-patient's is not sure she can provide care at home, patient innaughter lives in [place] but is able to travel back and forth and helps him with his care. Patient would like to think it over as regarding going home with hospice or going to a nursing facility with hospice care. Patient and family also to discuss continued treatments including IV antibiotics as well as continued therapies for his cirrhosis. Allergies Allergy/AdvReac Type Severity Reaction Status Date / Time celecoxib Allergy Intermediate HIVES Verified 03/12/19 19:07 Penicillins Allergy Intermediate HIVES Verified 03/12/19 19:07 Home Medications Home Medications Medication Instructions Recorded Confirmed Type acetaminophen 500 mg PO QID PRN 02/22/19 03/12/19 History albuterol sulfate 2 puff INHALATION Q6H PRN 02/22/19 03/12/19 History atorvastatin 10 mg PO HS 02/22/19 03/12/19 History carboxymethylcellulose sodium 1 dose OPHTHALMIC (EYE) BID 02/22/19 03/12/19 History [Refresh Celluvisc] fentanyl [Duragesic] 1 patch TRANSDERMAL Q72H 02/22/19 03/12/19 History fluoxetine 40 mg PO DAILY 02/22/19 03/12/19 History insulin glargine [Lantus U-100 15 unit SUBCUT BID 02/22/19 03/12/19 History Insulin] lactulose 1 dose PO BID 02/22/19 03/12/19 History mometasone 50 mcg INTRANASAL BID PRN 02/22/19 03/12/19 History multivitamin with minerals 1 tab PO DAILY 02/22/19 03/12/19 History pantoprazole 40 mg PO DAILY 02/22/19 03/12/19 History pentoxifylline 400 mg PO BID 02/22/19 03/12/19 History potassium chloride 10 meq PO BID 02/22/19 03/12/19 History prednisone 20 mg PO DAILY 02/22/19 03/12/19 History promethazine 25 mg PO Q6H PRN 02/22/19 03/12/19 History propranolol 5 mg PO QAM 02/22/19 03/12/19 History rifaximin [Xifaxan] 550 mg PO BID 02/22/19 03/12/19 History simethicone 80 - 160 mg PO BID PRN 02/22/19 03/12/19 History spironolactone 50 mg PO DAILY 02/22/19 03/12/19 History sulfamethoxazole-trimethoprim 1 tab PO 3XWK MDD m-w-f 02/22/19 03/12/19 History [Bactrim DS] furosemide 40 mg PO BID 02/26/19 03/12/19 History loratadine 10 mg PO HS 02/26/19 03/12/19 History Patient History Medical History Abdominal pain (Acute) Abscess in epidural space of lumbar spine (Acute) Altered mental status (Acute) Asthma (Acute) Diabetic autonomic neuropathy (Acute) Diarrhea (Acute) Fall in home (Acute) Fever (Acute) Fungemia (Acute) Fusion of spine (Acute) GERD (gastroesophageal reflux disease) (Acute) GI bleed (Acute) Gram negative septicemia (Acute) Hepatic encephalopathy (Acute) Hyperammonemia (Acute) Hyperlipidemia (Acute) Hypertension (Acute) Hypertension (Acute) Hypokalemia (Acute) Hypoxia (Acute) Immunocompromised (Acute) Infection of lumbar spine (Acute) Kidney stones (Acute) Lactic acidosis (Acute) Left leg cellulitis (Acute) Lumbar compression fracture (Acute) Lumbar disc herniation with radiculopathy (Acute) Lumbar stenosis with neurogenic claudication (Acute) Marijuana smoker (Acute) Meningitis (Acute) Obesity (Acute) Open wound of LLQ of abdominal wall w/o penentrat into periton cavity (Acute) Peritonitis (acute) generalized (Acute) Pneumonia (Acute) Post op infection (Acute) Sarcoidosis (Acute) Septal defect (Acute) Sleep apnea (Acute) Tenosynovitis, de Quervain (Acute) Thrombocytopenia (Acute) Vomiting (Acute) Alcoholic cirrhosis Surgical History History of carpal tunnel release (Acute) History of cataract surgery (Acute) History of herniorrhaphy (Acute) History of lithotripsy (Acute) History of repair of rotator cuff (Acute) Family History Father Heart attack Social History Preferred Language: Malaysian Communication Ability: Effective Ward Assistant Required: No Beliefs That Will Affect Care: None marital status: Current Living Situation: Spouse Other Information That Helps Us Care for You: No Feels Safe at Home: Yes Safety Concerns: Feels Safe At This Time Smoking Status: Former smoker Do You Dip or Chew Tobacco: No Second Hand Exposure: No Hx Alcohol Use: No Hx Substance Use: No Review of Systems Review of Systems: Patient complains of back pain-rated 8.5 out of 10 Pain is constant Pain improved with increase in fentanyl patch as well as PRN Roxanol Pain worsens with certain positions Pain interferes with quality of life Patient denies fever, chills, chest pain, increased shortness of breath, positive abdominal hernia, no increased abdominal pain with palpation Physical Exam Physical Exam: PE: Initially patient was comfortable-was having increased back pain-nursing did give a dose of Roxanol during visit HEENT: Exophthalmos-normal TSH, hearing within normal limits, EOMI Respiratory: Unlabored, no rhonchi CV: Regular rate, 3+ lower extremity edema Abdomen: Distended, positive ascites, positive abdominal wall erythema greatest on the left side, abdominal hernia on the left-easily reduced Extremities: Generalized weakness Neuro: Alert and oriented x4 Results & Data Vital Signs (Past 12 Hours) Vital Signs Temp Pulse Resp BP Pulse Ox 03/25/19 07:31 97.9 F 104 H 22 133/89 96 Time Spent Attending Total time spent 70 minutes with greater than 50% of the time spent at bedside discussing CODE STATUS, treatment options, as well as goals of care
--- NOTE | 2019-03-25 18:00 | Hospitalist Progress Note ---
Date of Service March 25, 2019 Assessment & Plan (1) SBP (spontaneous bacterial peritonitis): Peritoneal fluid cell counts at admission s/p diagnostic paracentesis consistent with SBP. He was on cipro IV since admission w/o significant general improvement. His culture grew cutibacterium acnes (gram positive noel). The Cipro was changed to IV unasyn on 03/20 It is difficult to say if this pathogen is truly pathogenic or contaminant but given how immunocompromised he is (chronic prednisone use, etc) would consider pathogenic unless proven otherwise. GI says to consider a repeat diagnostic paracentesis after improvement of his abdominal wall cellulitis if he continues to have abdominal pain Clinically his abd pain is better which would argue SBP is resolving. -after adequate treatment of this episode of SBP he likely will need cipro as SBP prophylaxis thereafter. -Continue IV Unasyn-day #6 and will switch to Augmentin tomorrow if tolerating po (awake enough to take pills) (2) Abdominal wall cellulitis: Improved back to chronic dark red color, left side of abdomen Cont unasyn (being used for SBP but should cover the skin as well). Cont daptomycin for MRSA coverage and likely dc in 2 more days. ID consultation appreciated. (3) Candidal UTI (urinary tract infection): day #5 amphotericin bladder irrigation -- plan total 5 days. cont IV caspofungin - day #5-likely 7-day course but will discuss with infectious disease. of note - pt has had fungemia in the past per his family during an admission at [facility]. appreciate Dr Banks's assistance. (4) Gross hematuria: resolved Consider outpatient cystoscopy by urology (5) CKD stage 3 due to type 2 diabetes mellitus: creatinine at baseline is around 1.5, now with mild increase to 1.75 today after a few days of IV Bumex Nephrology has signed off-appreciate their assistance -Follow BMP -continue Bumex for now to try to get fluid off (6) LETTY (acute kidney injury): Peak Cr was 2.1 on admission with infection and had some improvement with giving albumin and normal saline Creatinine with slight increase again today after using IV Bumex Discussed with the patient, his family, and nephrology about the fact that his creatinine may rise with continued efforts to diuresis Urine output is improved today, but weight remains stable from previous but way up over entire hospital stay His albumin is low at 2.0 which will make a loop diuretic less effective -Continue Bumex at 2 mg IV twice daily -Follow BMP again in the morning -Renally dose medications -Avoid nephrotoxins -Follow urine output (7) Hyponatremia: acute/chronic, sodium today is stable at 128 TSH, cortisol wnl Urine Na very low uric acid is normal which would argue against SIADH remains on aldactone daily, IV Bumex as above respiratory status stable -Follow BMP (8) Sarcoidosis: long-standing, steroid-dependent (prednisone 20mg/day) in light of infections is receiving stress dose steroids-will continue to taper down as his blood pressures are stable-will decrease to 20 mg daily for tomorrow (9) Cirrhosis: Secondary to sarcoid, medication toxicity, etc He also used to consume wine on a daily basis and there may be some alcohol component Continues with intermittent encephalopathy and has had elevated ammonia levels this admission-encephalopathy is at this point related to opioid use but is now acceptable in light of poor prognosis overall and family and patient have decided to pursue more of a Palliative approach -Cont lactulose and rifaximin for hepatic encephalopathy prophylaxis -Continue to treat SBP as above -Aldactone continues -Continue IV bumex -appreciate GI consult & recs -cont PPI twice daily (h/o multiple upper GI issues) -Needs outpatient GI follow-up after discharge if desires (10) DM type 2 (diabetes mellitus, type 2): BSGs acceptable at this time cont lantus cont novolog (11) Lumbar disc herniation with radiculopathy: with resulting acquired paraplegic type state patient no longer walks also with chronic back pain secondary to this issue cont fentanyl patch at increased dose of 37 -continue oxycodone prn and increase frequency today by Palliative Care Medicine (12) Thrombocytopenia: Secondary to hypersplenism from cirrhosis Platelets improved today to 82, no evidence of bleeding follow with daily CBC (13) Cognitive impairment: at baseline appears to mild cognitive impairment based on 's account (14) Tachycardia: EKGs with sinus tach the sinus tach started abruptly in the midst of his infections Now resolved for the most part thus, suspect tachycardia was due to SIRS from various infections. dopplers neg for DVT; doesn't rule out PE but suspicion for PE is low at this time -Follow (15) Depression: on 40mg prozac long time depression is quite severe Discussed the case with psychiatry-given ongoing multiple comorbidities, low platelets, hyponatremia, and encephalopathy, psychiatry actually recommends titrating down on his Prozac to 20 mg daily today and eventually off -Psychiatry recommends eventually starting either mirtazapine or Lexapro (16) DVT prophylaxis: SCDs, chemical means contraindicated due to low platelets Disposition - will likely need SNF for rehab since he normally can assist with transfer from bed to wheelchair He is severely debilitated and he can't even do these things right now I had a lengthy discussion on 03/23 and again on 03/25 with the patient's and stepdaughter at the bedside regarding his poor prognosis and goals of care. Palliative Care has seen the pat Plan is now DNR/DNI status, wish to enroll in Hospice and either home hospice or fpc w/ hospice in the next 1-2 days Subjective Pt received oxycodone before I saw him today and could not wake up for more than 1 second to talk to me, he could not stay awake. Discussed his care with his and daughter at the bedside, as well as Dr. Barrett of Palliative Medicine. Apparently he was having severe pain in his back earlier and could not get comfortable. He has now decided he wants comfort care focus, but dwight finish out his abx courses. Plan is to focus on pain control and family accepting of fact that he will be more lethargic and unable to participate in conversation as much with oxycodone on board. Pt still barely eating anything for weeks now. Review of Systems Review of Systems: Unobtainable due to reduced consciousness Physical Exam Constitutional: + obese and + lethargic; no acute distress Neck: trachea midline, no thyromegaly Respiratory: normal respiratory effort Auscultation: + diminished lung sounds (At the bases bilaterally); no crackles, no rhonchi and no wheezes Cardiovascular: Rate/Rhythm: regular rate and regular rhythm Heart Sounds: + murmur (2/6 at RUSB) Extremities: + edema (2+ pitting edema of the LEs to the thighs bilaterally, edema of arms) Gastrointestinal (Abdomen): Inspection/Auscultation: + abdomen abnormal to inspection (very large LLQ hernia,difficult to completely reduce,is edematous,nontender) Percussion/Palpation: + abdomen tender (mild on right side abdomen, no guarding) and abdomen soft; abdomen not rigid Musculoskeletal: Extremities: no cyanosis and no clubbing Skin: + wound (multiple scabbed over lesions on all extremities covered with dressings) and + erythema (Mild erythema of the left lateral abdominal wall improved from previous) Neurologic: + not awake Psychiatric: Orientation: + not alert Results & Data Vital Signs (Past 12 Hours) Vital Signs Temp Pulse Resp BP BP Pulse Ox 03/25/19 15:32 36 C L 117 H 18 120/81 96 03/25/19 07:31 36.6 C 104 H 22 133/89 96 Laboratory Results 03/25/19 03/25/19 03/25/19 Range/Units 20:47 16:41 11:17 WBC (4.8-10.8) K/uL RBC (4.7-6.1) M/uL Hgb (14.0-18.0) g/dL Hct (42-52) % MCV (80-100) fL MCH (25-34) pg MCHC (32-36) g/dL RDW Std Deviation (36.4-46.3) fL RDW Coeff of Curt (11.5-14.5) % Plt Count (130-400) K/uL Immature Gran % (Auto) % Neut % (Auto) % Lymph % (Auto) % Stanton % (Auto) % Eos % (Auto) % Baso % (Auto) % Immature Gran # (Auto) (0.00-0.02) K/uL Neut # (Auto) (1.4-6.5) K/uL Lymph # (Auto) (1.2-3.4) K/uL Stanton # (Auto) (0.11-0.59) K/uL Eos # (Auto) (0-0.5) K/uL Baso # (Auto) (0-0.2) K/uL Platelet Estimate (Normal) Anisocytosis Microcytosis Echinocytes Sodium (136-145) mmol/L Potassium (3.5-5.1) mmol/L Chloride (98-107) mmol/L Carbon Dioxide (21-32) mmol/L Anion Gap (3-11) BUN (7-18) mg/dl Creatinine (0.6-1.4) mg/dl Est Cr Clr Drug Dosing ml/min Est GFR ( Amer) Est GFR (Non-Af Amer) BUN/Creatinine Ratio (10-20) Glucose (70-99) mg/dl POC Glucose 165 H 147 H 162 H (70-99) Calcium (8.5-10.1) mg/dl Total Bilirubin (0.2-1) mg/dl AST (15-37) U/L ALT (12-78) U/L Alkaline Phosphatase (45-117) U/L Total Protein (6.4-8.2) gm/dl Albumin (3.4-5.0) gm/dl Globulin (2.5-4.0) gm/dl Albumin/Globulin Ratio (0.9-2) 03/25/19 03/25/19 03/25/19 Range/Units 07:25 07:15 07:15 WBC 13.03 H (4.8-10.8) K/uL RBC 4.54 L (4.7-6.1) M/uL Hgb 11.0 L (14.0-18.0) g/dL Hct 33.6 L (42-52) % MCV 74.0 L (80-100) fL MCH 24.2 L (25-34) pg MCHC 32.7 (32-36) g/dL RDW Std Deviation 63.3 H (36.4-46.3) fL RDW Coeff of Curt 23.6 H (11.5-14.5) % Plt Count 82 L (130-400) K/uL Immature Gran % (Auto) 1.1 % Neut % (Auto) 90.2 % Lymph % (Auto) 4.8 % Stanton % (Auto) 3.7 % Eos % (Auto) 0.0 % Baso % (Auto) 0.2 % Immature Gran # (Auto) 0.14 H (0.00-0.02) K/uL Neut # (Auto) 11.77 H (1.4-6.5) K/uL Lymph # (Auto) 0.62 L (1.2-3.4) K/uL Stanton # (Auto) 0.48 (0.11-0.59) K/uL Eos # (Auto) 0.00 (0-0.5) K/uL Baso # (Auto) 0.02 (0-0.2) K/uL Platelet Estimate Decreased L (Normal) Anisocytosis Present Microcytosis Present Echinocytes 2+ Sodium 128 L (136-145) mmol/L Potassium 4.2 (3.5-5.1) mmol/L Chloride 95 L (98-107) mmol/L Carbon Dioxide 21 (21-32) mmol/L Anion Gap 12.0 H (3-11) BUN 41 H (7-18) mg/dl Creatinine 1.75 H (0.6-1.4) mg/dl Est Cr Clr Drug Dosing 41.9 ml/min Est GFR ( Amer) 46.0 Est GFR (Non-Af Amer) 39.7 BUN/Creatinine Ratio 23.3 H (10-20) Glucose 179 H (70-99) mg/dl POC Glucose 169 H (70-99) Calcium 8.6 (8.5-10.1) mg/dl Total Bilirubin 2.6 H (0.2-1) mg/dl AST 37 (15-37) U/L ALT 30 (12-78) U/L Alkaline Phosphatase 412 H (45-117) U/L Total Protein 5.6 L (6.4-8.2) gm/dl Albumin 2.1 L (3.4-5.0) gm/dl Globulin 3.5 (2.5-4.0) gm/dl Albumin/Globulin Ratio 0.6 L (0.9-2) (1) DM type 2 (diabetes mellitus, type 2) Diabetes mellitus complication status: without complication 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
[2019-03-25] MEDS: DAPTOmycin 250 MG in SYRINGE 0 ML IV SCH (18:10)
--- NOTE | 2019-03-25 19:14 | Infectious Disease Progress Nt ---
Date of Service March 25, 2019 Assessment & Plan (1) Abdominal wall cellulitis: Patient with abdominal wall cellulitis, slowly improving with Unasyn. Has Christina glabrata urinary tract infection, treatment with IV caspofungin and amphotericin B bladder irrigation. Will follow. (2) Candidal UTI (urinary tract infection): Subjective Patient seen in follow-up for abdominal wall cellulitis and fungal urinary tract infection. Very lethargic today, not participating with history. Afebrile, no expressed worsening abdominal pain. Review of Systems Review of Systems: All systems reviewed & are unremarkable except as noted in HPI & below Physical Exam Constitutional: WD/WN, vitals as above + ill appearing Eyes: PERRL, conjunctivae normal, anicteric sclerae ENMT: external ear and nose normal, oropharynx normal Neck: trachea midline, no thyromegaly Respiratory: normal respiratory effort, lungs clear to auscultation Cardiovascular: RRR, no murmur, no edema Gastrointestinal (Abdomen): Inspection/Auscultation: + abdomen distended and normal bowel sounds Percussion/Palpation: abdomen nontender, no hepatosplenomegaly and no abdominal mass Musculoskeletal: no cyanosis or clubbing, extremities motor strength 5/5 Skin: no rashes, warm and dry Neurologic: moves all extremities; no focal motor deficits Psychiatric: Orientation: alert and oriented x 3 Affect: + depressed affect Lymphatic: no cervical or axillary lymphadenopathy no inguinal lymphadeno franchesca Results & Data Vital Signs (Past 12 Hours) Vital Signs Temp Pulse Resp BP BP Pulse Ox 03/25/19 15:32 36 C L 117 H 18 120/81 96 03/25/19 07:31 36.6 C 104 H 22 133/89 96 Laboratory Results Short CBC 03/25/19 Range/Units 07:15 WBC 13.03 H (4.8-10.8) K/uL Hgb 11.0 L (14.0-18.0) g/dL Hct 33.6 L (42-52) % Plt Count 82 L (130-400) K/uL BMP 03/25/19 07:15 Sodium 128 L Potassium 4.2 Chloride 95 L Carbon Dioxide 21 BUN 41 H Creatinine 1.75 H Glucose 179 H Calcium 8.6 Liver Function 03/25/19 Range/Units 07:15 Total Bilirubin 2.6 H (0.2-1) mg/dl AST 37 (15-37) U/L ALT 30 (12-78) U/L Alkaline Phosphatase 412 H (45-117) U/L Albumin 2.1 L (3.4-5.0) gm/dl Diagnostic Findings Microbiology 03/13/19 Unknown Peritoneal Fluid Acid Fast Bacilli Smear - Final 03/13/19 Unknown Peritoneal Fluid Acid Fast Bacilli Culture - Preliminary No Acid-Fast Bacilli Isolated - Report 2, Additional Report to Follow. 03/19/19 18:37 Urine,Indwelling Cath Urine Culture - Final Christina glabrata 03/13/19 Unknown Peritoneal Fluid Gram Stain - Final 03/13/19 Unknown Peritoneal Fluid Aerobic and Anaerobic Culture - Final Cutibacterium (Propioni) acnes 03/12/19 20:44 Blood Blood Culture - Final No growth 03/12/19 20:31 Blood Blood Culture - Final No growth
[2019-03-25] MEDS: ATORVASTATIN 10 MG TAB PO SCH (20:30)
[2019-03-25] MEDS: LORATADINE 10 MG TAB PO SCH (20:31)
[2019-03-26] MEDS: OXYCODONE HCL IR 5 MG TAB (IMMEDIATE RELEASE) PO PRN ×4 (00:27→14:01)
[2019-03-26] MEDS: CHECK FENTANYL PATCH PLACEMENT SCH ×8 (00:28→23:55)
[2019-03-26] MEDS: AMPICILLIN/SULBACTAM SOD 3,000 MG in 0.9 % SODIUM CHLORIDE 100 ML IV SCH ×4 (00:34→13:53)
[2019-03-26 08:03] LABS: Albumin Level 1.9 gm/dl (3.4-5.0); BUN Creatinine Ratio 26.4 (10-20); Calcium 8.5 mg/dl (8.5-10.1); Est GFR (African American) 46.6; Est GFR (Non-African American) 40.2; Magnesium 1.9 mg/dl (1.8-2.4); Potassium 4.2 mmol/L (3.5-5.1)
[2019-03-26 08:12] LABS: Bilirubin Direct 1.4 mg/dl (0-0.2)
[2019-03-26 08:13] LABS: Bilirubin,Total 2.1 mg/dl (0.2-1); Total Protein 4.9 gm/dl (6.4-8.2)
[2019-03-26] MEDS: INSULIN ASPART 100 UNITS/ML 3 ML PEN SC SCH ×4 (08:46→20:33)
[2019-03-26] MEDS: ARTIFICIAL TEARS OP SCH ×2 (08:49→20:01)
[2019-03-26] MEDS: BUMETANIDE 2 MG in SYRINGE 0 ML IV SCH (08:50)
[2019-03-26 08:51] LABS: Mean Corpuscular Hgb Conc 32.2 g/dL (32-36)
[2019-03-26 08:56] LABS: Hematocrit (blood only) 31.4 % (42-52); Hemoglobin 10.1 g/dL (14.0-18.0); Mean Corpuscular Volume 74.4 fL (80-100); RDW Coefficient of Variation 23.7 % (11.5-14.5); RDW Standard Deviation 63.9 fL (36.4-46.3); Red Blood Count 4.22 M/uL (4.7-6.1)
[2019-03-26 09:27] LABS: Platelet Count 52 K/uL (130-400)
[2019-03-26 09:28] LABS: Anisocytosis Present; Basophils # (auto) 0.01 K/uL (0-0.2); Basophils % (auto) 0.1 %; Echinocytes 2+; Eosinophils # (auto) 0.02 K/uL (0-0.5); Eosinophils % (auto) 0.2 %; Immature Granulocytes # (auto) 0.09 K/uL (0.00-0.02); Lymphocytes # (auto) 0.63 K/uL (1.2-3.4); Lymphocytes % (auto) 6.9 %; Monocytes # (auto) 0.23 K/uL (0.11-0.59); Monocytes % (auto) 2.5 %; Neutrophils # (auto) 8.12 K/uL (1.4-6.5); Neutrophils % (auto) 89.3 %; Platelet Estimate Decreased (Normal)
[2019-03-26] MEDS: INSULIN GLARGINE SOLOSTAR 100 UNITS/ML 3 ML PEN SC SCH (09:35)
[2019-03-26] MEDS: SPIRONOLACTONE 25 MG TAB PO SCH (09:35)
[2019-03-26] MEDS: LACTULOSE SYRUP 20 GM/30 ML UDC PO SCH ×2 (09:35→20:04)
[2019-03-26] MEDS: predniSONE 20 MG TAB PO SCH (09:36)
[2019-03-26] MEDS: PENTOXIFYLLINE 400MG EXT REL TAB PO SCH ×2 (09:36→20:03)
[2019-03-26] MEDS: PANTOprazole 40 MG TAB PO SCH ×2 (09:36→20:03)
[2019-03-26] MEDS: RIFAXIMIN 550 MG TABLET PO SCH ×2 (09:36→20:02)
--- NOTE | 2019-03-26 10:48 | Hospitalist Progress Note ---
Date of Service March 26, 2019 Assessment & Plan (1) SBP (spontaneous bacterial peritonitis): Peritoneal fluid cell counts at admission s/p diagnostic paracentesis consistent with SBP. He was on cipro IV since admission w/o significant general improvement. His culture grew cutibacterium acnes (gram positive noel). The Cipro was changed to IV unasyn on 03/20 It is difficult to say if this pathogen is truly pathogenic or contaminant but given how immunocompromised he is (chronic prednisone use, etc) would consider pathogenic unless proven otherwise. GI says to consider a repeat diagnostic paracentesis after improvement of his abdominal wall cellulitis if he continues to have abdominal pain Clinically his abd pain is better which would argue SBP is resolving. Will not likely perform repeat paracentesis at this time as he is not having significant abdominal pain and we are moving towards comfort care -after adequate treatment of this episode of SBP he likely will need cipro as SBP prophylaxis thereafter. -Continue IV Unasyn-day #7 and will switch to Augmentin tomorrow if tolerating p o (awake enough to take pills)-not awake enough to take his pills today so we will hold off on this (2) Abdominal wall cellulitis: Definitely improved with reduced erythema on the left side of abdomen Cont unasyn (being used for SBP but should cover the skin as well). Cont daptomycin for MRSA coverage and likely dc in 1 more days. ID consultation appreciated. (3) Candidal UTI (urinary tract infection): day #5 amphotericin bladder irrigation -now completed this morning cont IV caspofungin - day #6-likely 7-day course but will discuss with infectious disease. of note - pt has had fungemia in the past per his family during an admission at [facility]. appreciate Dr Banks's assistance. (4) Gross hematuria: resolved Consider outpatient cystoscopy by urology (5) CKD stage 3 due to type 2 diabetes mellitus: creatinine at baseline is around 1.5, now stable at 1.7 today with ongoing diuresis with IV Bumex Nephrology has signed off-appreciate their assistance -Follow BMP -continue Bumex for now to try to get fluid off for comfort (6) LETTY (acute kidney injury): Peak Cr was 2.1 on admission with infection and had some improvement with giving albumin and normal saline Creatinine with slight increase yesterday but stable today at 1.73 after using IV Bumex Discussed with the patient, his family, and nephrology about the fact that his creatinine may rise with continued efforts to diuresis Urine output is excellent today, and weight slightly down today but overall volume up significantly since admission His albumin is severely low at 1.9 which will make a loop diuretic less effective -Continue Bumex at 2 mg IV twice daily -Follow BMP again in the morning -Renally dose medications -Avoid nephrotoxins -Follow urine output (7) Hyponatremia: acute/chronic, sodium today is stable at 128, secondary to volume overload TSH, cortisol wnl Urine Na very low uric acid is normal which would argue against SIADH remains on aldactone daily, IV Bumex as above respiratory status stable -Follow BMP (8) Sarcoidosis: long-standing, steroid-dependent (prednisone 20mg/day) in light of infections he did receive stress dose steroids-now back to usual dose (9) Cirrhosis: Secondary to sarcoid, medication toxicity, etc He also used to consume wine on a daily basis and there may be some alcohol component Continues with waxing and waning encephalopathy and has had elevated ammonia levels this admission-encephalopathy is at this point related to opioid use but is now acceptable in light of poor prognosis overall and family and patient have decided to pursue more of a Palliative approach -Cont lactulose and rifaximin for hepatic encephalopathy prophylaxis -Continue to treat SBP as above -Aldactone continues -Continue IV bumex -appreciate GI consult & recs -cont PPI twice daily (h/o multiple upper GI issues) -Needs outpatient GI follow-up after discharge if desires (10) DM type 2 (diabetes mellitus, type 2): BSGs acceptable at this time, but mildly low this morning. Very poor p.o. 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 Platelets decreased today to 52, no evidence of bleeding follow with daily CBC (13) Cognitive impairment: at baseline appears to mild cognitive impairment based on 's account (14) Tachycardia: EKGs with sinus tach the sinus tach started abruptly in the midst of his infections Now resolved for the most part but up and down likely due to intravascular volume depletion dopplers neg for DVT; doesn't rule out PE but suspicion for PE is low at this time -Follow (15) Depression: on 40mg prozac long time depression is quite severe Discussed the case with psychiatry-given ongoing multiple comorbidities, low platelets, hyponatremia, and encephalopathy, psychiatry actually recommends titrating down on his Prozac to 20 mg daily today and eventually off -Psychiatry recommends eventually starting either mirtazapine or Lexapro (16) DVT prophylaxis: SCDs, chemical means contraindicated due to low platelets Disposition He is severely debilitated and can no longer do his usual transfers Palliative care consultation appreciated-family and patient wished to pursue comfort measures with hospice after discharge after finishing antibiotic course Patient tells me on 03/26 that he does not want to go to a care home-we will discuss with the and case management to see if home with hospice is an option in the next 1 to 2 days DNR/DNI Subjective RN called and said the patient was so lethargic this morning she could not get him to wake up to take his morning meds. When I saw him, he was awake but still very drowsy. He did report he wanted to try to eat something. Reports his pain is fairly well-controlled at the moment in the back. No significant abdominal pain. After repeated questioning, he finally is able to tell me that he does not want to go to a care home upon discharge. Review of Systems Review of Systems: Unobtainable due to reduced consciousness Physical Exam Constitutional: + obese and + lethargic; no acute distress Eyes: PERRL, conjunctivae normal, anicteric sclerae (With bilateral proptosis) ENMT: external ear and nose normal, oropharynx normal Neck: trachea midline, no thyromegaly Respiratory: normal respiratory effort, lungs clear to auscultation normal respiratory effort Auscultation: + diminished lung sounds (At the bases bilaterally); no crackles, no rhonchi and no wheezes Cardiovascular: Rate/Rhythm: regular rate and regular rhythm Heart Sounds: + murmur (2/6 at RUSB) Extremities: + edema (2+ pitting edema of the LEs to the thighs bilaterally, edema of arms) Gastrointestinal (Abdomen): Inspection/Auscultation: + abdomen abnormal to inspection (very large LLQ hernia,difficult to completely reduce,is edematous,nontender) Percussion/Palpation: + abdomen tender (mild on right side abdomen, no guarding) and abdomen soft; abdomen not rigid Musculoskeletal: Extremities: no cyanosis and no clubbing Skin: no rashes, warm and dry + wound (multiple scabbed over lesions on all extremities covered with dressings) and + erythema (Mild erythema of the left lateral abdominal wall improved from previous) Neurologic: + not awake Motor/Sensory: + asterixis (mild) Psychiatric: Eye Contact: + fair eye contact Mood: + depressed mood Genitourinary: no testicular masses, no penis abnormality + scrotum abnormality (With penile and scrotal edema-moderate, Verma catheter in place, no hematuria) Results & Data Vital Signs (Past 12 Hours) Vital Signs Temp Pulse Resp BP BP Pulse Ox 03/26/19 08:00 36.8 C 77 18 109/63 95 03/25/19 23:48 36.6 C 102 H 20 141/67 H 96 Laboratory Results 03/26/19 03/26/19 03/26/19 Range/Units 08:33 07:46 07:20 WBC 9.10 (4.8-10.8) K/uL RBC 4.22 L (4.7-6.1) M/uL Hgb 10.1 L (14.0-18.0) g/dL Hct 31.4 L (42-52) % MCV 74.4 L (80-100) fL MCH 23.9 L (25-34) pg MCHC 32.2 (32-36) g/dL RDW Std Deviation 63.9 H (36.4-46.3) fL RDW Coeff of Curt 23.7 H (11.5-14.5) % Plt Count 52 L (130-400) K/uL Immature Gran % (Auto) 1.0 % Neut % (Auto) 89.3 % Lymph % (Auto) 6.9 % Blaine % (Auto) 2.5 % Eos % (Auto) 0.2 % Baso % (Auto) 0.1 % Immature Gran # (Auto) 0.09 H (0.00-0.02) K/uL Neut # (Auto) 8.12 H (1.4-6.5) K/uL Lymph # (Auto) 0.63 L (1.2-3.4) K/uL Blaine # (Auto) 0.23 (0.11-0.59) K/uL Eos # (Auto) 0.02 (0-0.5) K/uL Baso # (Auto) 0.01 (0-0.2) K/uL Platelet Estimate Decreased L (Normal) Anisocytosis Present Echinocytes 2+ Sodium 128 L (136-145) mmol/L Potassium 4.2 (3.5-5.1) mmol/L Chloride 96 L (98-107) mmol/L Carbon Dioxide 21 (21-32) mmol/L Anion Gap 11.0 (3-11) BUN 46 H (7-18) mg/dl Creatinine 1.73 H (0.6-1.4) mg/dl Est Cr Clr Drug Dosing 41.0 ml/min Est GFR ( Amer) 46.6 Est GFR (Non-Af Amer) 40.2 BUN/Creatinine Ratio 26.4 H (10-20) Glucose 96 (70-99) mg/dl POC Glucose 108 H (70-99) Calcium 8.5 (8.5-10.1) mg/dl Magnesium 1.9 (1.8-2.4) mg/dl Total Bilirubin 2.1 H (0.2-1) mg/dl Direct Bilirubin 1.4 H (0-0.2) mg/dl AST 38 H (15-37) U/L ALT 24 (12-78) U/L Alkaline Phosphatase 313 H (45-117) U/L Total Protein 4.9 L (6.4-8.2) gm/dl Albumin 1.9 L (3.4-5.0) gm/dl Specimen Hemolysis Cancelled 03/25/19 03/25/19 03/25/19 Range/Units 20:47 16:41 11:17 WBC (4.8-10.8) K/uL RBC (4.7-6.1) M/uL Hgb (14.0-18.0) g/dL Hct (42-52) % MCV (80-100) fL MCH (25-34) pg MCHC (32-36) g/dL RDW Std Deviation (36.4-46.3) fL RDW Coeff of Curt (11.5-14.5) % Plt Count (130-400) K/uL Immature Gran % (Auto) % Neut % (Auto) % Lymph % (Auto) % Blaine % (Auto) % Eos % (Auto) % Baso % (Auto) % Immature Gran # (Auto) (0.00-0.02) K/uL Neut # (Auto) (1.4-6.5) K/uL Lymph # (Auto) (1.2-3.4) K/uL Blaine # (Auto) (0.11-0.59) K/uL Eos # (Auto) (0-0.5) K/uL Baso # (Auto) (0-0.2) K/uL Platelet Estimate (Normal) Anisocytosis Echinocytes Sodium (136-145) mmol/L Potassium (3.5-5.1) mmol/L Chloride (98-107) mmol/L Carbon Dioxide (21-32) mmol/L Anion Gap (3-11) BUN (7-18) mg/dl Creatinine (0.6-1.4) mg/dl Est Cr Clr Drug Dosing ml/min Est GFR ( Amer) Est GFR (Non-Af Amer) BUN/Creatinine Ratio (10-20) Glucose (70-99) mg/dl POC Glucose 165 H 147 H 162 H (70-99) Calcium (8.5-10.1) mg/dl Magnesium (1.8-2.4) mg/dl Total Bilirubin (0.2-1) mg/dl Direct Bilirubin (0-0.2) mg/dl AST (15-37) U/L ALT (12-78) U/L Alkaline Phosphatase (45-117) U/L Total Protein (6.4-8.2) gm/dl Albumin (3.4-5.0) gm/dl Specimen Hemolysis (1) Cirrhosis Hepatic cirrhosis type: alcoholic cirrhosis Ascites presence: with ascites Qualified Code(s): K70.31 - Alcoholic cirrhosis of liver with ascites (2) DM type 2 (diabetes mellitus, type 2) Diabetes mellitus mcc insulin use: with mcc use Diabetes mellitus complication status: without complication Qualified Code(s): E11.9 - Type 2 diabetes mellitus without complications; Z79.4 - prison (current) use of insulin (3) Depression Depression Type: other depression Qualified Code(s): F32.89 - Other specified depressive episodes
[2019-03-26] MEDS: DICLOFENAC SOD 1% GEL 100 GM TUBE EXT PRN (14:02)
--- NOTE | 2019-03-26 14:52 | Infectious Disease Progress Nt ---
Date of Service March 26, 2019 Assessment & Plan (1) Abdominal wall cellulitis: Patient with abdominal wall cellulitis, slowly improving with Unasyn. Has Christina glabrata urinary tract infection, treatment with IV caspofungin and amphotericin B bladder irrigation. Patient will complete 7 days of Unasyn today, to transition to Augmentin tomorrow if stable. (2) Candidal UTI (urinary tract infection): Subjective Patient seen in follow-up for abdominal wall cellulitis and fungal urinary tract infection. Very lethargic today, not participating with history. Afebrile, no expressed worsening abdominal pain. Review of Systems Review of Systems: Unobtainable due to cognitive status Physical Exam Constitutional: WD/WN, vitals as above + ill appearing Eyes: PERRL, conjunctivae normal, anicteric sclerae ENMT: external ear and nose normal, oropharynx normal Neck: trachea midline, no thyromegaly Respiratory: normal respiratory effort, lungs clear to auscultation Cardiovascular: RRR, no murmur, no edema Gastrointestinal (Abdomen): Inspection/Auscultation: + abdomen distended and n ormal bowel sounds Percussion/Palpation: abdomen nontender, no hepatosplenomegaly and no abdominal mass Musculoskeletal: no cyanosis or clubbing, extremities motor strength 5/5 Skin: no rashes, warm and dry Neurologic: moves all extremities; no focal motor deficits Psychiatric: Orientation: alert and oriented x 3 Affect: + depressed affect Lymphatic: no cervical or axillary lymphadenopathy no inguinal lymphadenopathy Results & Data Vital Signs (Past 12 Hours) Vital Signs Temp Pulse Resp BP Pulse Ox 03/26/19 08:00 36.8 C 77 18 109/63 95 Laboratory Results Short CBC 03/26/19 Range/Units 08:33 WBC 9.10 (4.8-10.8) K/uL Hgb 10.1 L (14.0-18.0) g/dL Hct 31.4 L (42-52) % Plt Count 52 L (130-400) K/uL BMP 03/26/19 07:20 Sodium 128 L Potassium 4.2 Chloride 96 L Carbon Dioxide 21 BUN 46 H Creatinine 1.73 H Glucose 96 Calcium 8.5 Liver Function 03/26/19 Range/Units 07:20 Total Bilirubin 2.1 H (0.2-1) mg/dl Direct Bilirubin 1.4 H (0-0.2) mg/dl AST 38 H (15-37) U/L ALT 24 (12-78) U/L Alkaline Phosphatase 313 H (45-117) U/L Albumin 1.9 L (3.4-5.0) gm/dl Diagnostic Findings Microbiology 03/13/19 Unknown Peritoneal Fluid Acid Fast Bacilli Smear - Final 03/13/19 Unknown Peritoneal Fluid Acid Fast Bacilli Culture - Preliminary No Acid-Fast Bacilli Isolated - Report 2, Additional Report to Follow. 03/19/19 18:37 Urine,Indwelling Cath Urine Culture - Final Christina glabrata 03/13/19 Unknown Peritoneal Fluid Gram Stain - Final 03/13/19 Unknown Peritoneal Fluid Aerobic and Anaerobic Culture - Final Cutibacterium (Propioni) acnes 03/12/19 20:44 Blood Blood Culture - Final No growth 03/12/19 20:31 Blood Blood Culture - Final No growth
--- NOTE | 2019-03-26 16:15 | Palliative Care Progress Note ---
Date of Service March 26, 2019 Assessment & Plan (1) Goals of care, counseling/discussion: Goals of care, counseling/discussion: Patient's at bedside. Patient is a 64-year-old male with a past medical history significant for cirrhosis, [id number], diabetes, CKD stage III, thrombocytopenia who was discharged from [facility] on 02/19 after a 2-week rehab stay for falls. has been able to transfer patient using a slide board up until a few days prior to admission. Patient was having increased weakness and had altered mental status-was brought to the ER on 03/12. Patient was diagnosed with SBP as well as fungal UTI-had been on Cipro without improvement, this was changed to Unasyn on 03/20-patient and family feel that he is making some improvement. He is on amphotericin bladder flushes and caspofungin IV for the fungal infection. Patient had several falls at home-sustained a new compression fracture. Patient rates his pain at an 8.5 out of 10-his fentanyl patch was recently increased to 37 mcg, patient does report some improved pain control. Patient states that 4-5/10 is an acceptable pain level, 6/10 is on the edge of being unacceptable. Patient also gets PRN Roxanol at 2.5 mg-he required 3 doses in the past 24 hours. Patient reports the Roxanol helps some and last for approximately 1-1/2 hours. Family reports patient very drowsy even on low-dose Roxanol-it is effective in helping his pain, higher doses cause hallucinations. Patient feels his general health is continuing to decline, he is willing to try participate in rehab . Discussed patient's multiple medical problems including cirrhosis, difficulty managing ascites due to CKD stage III as well as low albumin. Patient's albumin was 2.0, his INR was 1.3, he is receiving Bumex-BUN increased to 41 with a creatinine 1.75. Patient did have a paracentesis on 03/13-had 1.3 L removed. Discussed CODE STATUS with the patient and family-patient stated he would not want to be put on a ventilator and does not feel that resuscitation would be helpful at this point-patient's CODE STATUS changed to DNR. Spoke with patient and family regarding goals of care-patient has agreed to transfer to facility for further care. Discussed options- is willing to take patient home if he changes his mind. -Encephalopathy-improved with treatment of SBP and fungal UTI -CODE STATUS-DNR -Cirrhosis-patient continues to have loose stools, refuses lactulose occasionally, continues Xifaxan for now, albumin 2.0-contributing to edema as well as ascites, INR 1.3 -SBP-transition to p.o. Augmentin in anticipation of transfer to facility -Yeast UTI-patient completed bladder irrigation with amphotericin, on last day of caspofungin -Sarcoid-on prednisone 25 mg daily-chronic steroid use likely contributing to infections -Back pain-due to compression fracture-pain control improved with increase fentanyl patch to 37 mcg, continue PRN Roxanol -CKD stage III-contributing to difficulty diuresing -DM-continue current insulin regime -Ascites-status post paracentesis on 03/09 4-1.3 L removed. Difficulty managing edema and ascites due to CKD POLST form completed-copy placed in chart, original given to Subjective Patient awake and alert, no acute distress. Patient denies fever, chills, chest pain, increased shortness of breath, or GI/ complaints. Patient's present at bedside-patient reiterated he wishes to be a DNR. Reviewed POLST form with patient and -patient signed a pulsed form stating DNR, limited interventions regarding antibiotics, limited fluids if needed, NO feeding tube. Copy of POLST form placed in medical record-original given to patient's . Patient's current wishes are to go to [facility]-he may attempt to participate in therapies initially-goal would be to transition to hospice if he continues to decline. Patient much brighter and more alert on exam this afternoon- reports this is his usual-will be sleepy one day, brighter the next day. Patient also appears to be more jaundiced on exam today. Patient is planned to be transition to p.o. Augmentin in preparation for discharge to facility. We will change his PRN oxycodone to Roxanol for ease of delivery. Answered patient and 's questions as well as address their concerns. Review of Systems Review of Systems: Patient denies fever, chills, chest pain, increased shortness of breath, or GI symptoms Physical Exam Physical Exam: PE: Patient more alert, no acute distress, stayed awake during entire visit. HEENT: Exophthalmos, hearing within normal limits Respiratory: Unlabored, clear breath sounds anteriorly CV: Regular rate, 2+ pitting edema lower extremities Abdomen: Soft, nontender, positive ascites, abdominal wall cellulitis-improving, stable abdominal wall hernia Extremities: Generalized weakness Neuro: More alert Results & Data Vital Signs (Past 12 Hours) Vital Signs Temp Pulse Resp BP BP Pulse Ox 03/26/19 15:35 97.9 F 103 H 18 101/62 96 03/26/19 08:00 98.2 F 77 18 109/63 95 Time Spent Attending Total time spent 40 minutes with greater than 50% of the time spent at bedside discussing goals of care as well as reviewing and filling out POLST form-will continue to follow and assist with medical decision making as needed
[2019-03-26] MEDS ORDERED: AMOXICILLIN/CLAVULANATE 875 MG TAB PO SCH (17:00)
[2019-03-26] MEDS: AMOXICILLIN/CLAVULANATE 875 MG TAB PO SCH (17:37)
[2019-03-26] MEDS: BUMETANIDE 1 MG TAB PO SCH (17:57)
[2019-03-26] MEDS: ATORVASTATIN 10 MG TAB PO SCH (20:03)
[2019-03-26] MEDS: LORATADINE 10 MG TAB PO SCH (20:03)
[2019-03-27] MEDS: RIFAXIMIN 550 MG TABLET PO SCH ×2 (07:39→21:18)
[2019-03-27] MEDS: AMOXICILLIN/CLAVULANATE 875 MG TAB PO SCH ×2 (07:39→17:23)
[2019-03-27] MEDS: SPIRONOLACTONE 25 MG TAB PO SCH (07:39)
[2019-03-27] MEDS: ARTIFICIAL TEARS OP SCH ×2 (07:39→21:17)
[2019-03-27] MEDS: LACTULOSE SYRUP 20 GM/30 ML UDC PO SCH ×2 (07:40→21:18)
[2019-03-27] MEDS: predniSONE 20 MG TAB PO SCH (07:40)
[2019-03-27] MEDS: PENTOXIFYLLINE 400MG EXT REL TAB PO SCH ×2 (07:41→21:18)
[2019-03-27] MEDS: PANTOprazole 40 MG TAB PO SCH ×2 (07:41→21:17)
[2019-03-27] MEDS: CHECK FENTANYL PATCH PLACEMENT SCH ×4 (07:43→15:31)
[2019-03-27 08:18] LABS: Mean Corpuscular Hgb Conc 32.7 g/dL (32-36)
[2019-03-27 08:28] LABS: INR 1.3 (0.9-1.1); Prothrombin Time 13.4 Seconds (9.0-12.0)
[2019-03-27 08:36] LABS: Hematocrit (blood only) 31.5 % (42-52); Hemoglobin 10.3 g/dL (14.0-18.0); Mean Corpuscular Volume 75.2 fL (80-100); RDW Coefficient of Variation 23.9 % (11.5-14.5); RDW Standard Deviation 64.7 fL (36.4-46.3); Red Blood Count 4.19 M/uL (4.7-6.1); White Blood Count 8.62 K/uL (4.8-10.8)
[2019-03-27 08:51] LABS: Albumin Level 1.9 gm/dl (3.4-5.0); BUN Creatinine Ratio 23.8 (10-20); Bilirubin Direct 1.7 mg/dl (0-0.2); Calcium 8.7 mg/dl (8.5-10.1); Creatinine Clr Calc Pharmacy 34.1 ml/min; Est GFR (African American) 35.7; Est GFR (Non-African American) 30.8; Potassium 4.1 mmol/L (3.5-5.1)
[2019-03-27 08:52] LABS: Anisocytosis Present; Basophils # (auto) 0.01 K/uL (0-0.2); Basophils % (auto) 0.1 %; Eosinophils # (auto) 0.14 K/uL (0-0.5); Eosinophils % (auto) 1.6 %; Immature Granulocytes % (auto) 1.2 %; Lymphocytes % (auto) 4.6 %; Monocytes # (auto) 0.29 K/uL (0.11-0.59); Monocytes % (auto) 3.4 %; Neutrophils # (auto) 7.68 K/uL (1.4-6.5); Neutrophils % (auto) 89.1 %; Platelet Count 56 K/uL (130-400); Platelet Estimate Decreased (Normal); Target Cells 1+; Toxic Granulation 3+
[2019-03-27 08:54] LABS: Bilirubin,Total 2.4 mg/dl (0.2-1)
[2019-03-27] MEDS: INSULIN ASPART 100 UNITS/ML 3 ML PEN SC SCH ×4 (08:56→21:06)
[2019-03-27] MEDS: BUMETANIDE 1 MG TAB PO SCH ×2 (10:28→17:23)
[2019-03-27] MEDS: OXYCODONE HCL IR 5 MG TAB (IMMEDIATE RELEASE) PO PRN ×3 (13:04→21:19)
[2019-03-27] MEDS: fentaNYL 12 MCG/HR TDSY TD SCH (13:28)
[2019-03-27] MEDS: fentaNYL 25 MCG/HR TDSY TD SCH (13:30)
[2019-03-27] MEDS: DICLOFENAC SOD 1% GEL 100 GM TUBE EXT PRN (15:53)
[2019-03-27] MEDS: ONDANSETRON INJ 2 MG/ML 2 ML VIAL IV PRN (17:41)
--- NOTE | 2019-03-27 18:51 | Hospitalist Progress Note ---
Date of Service March 27, 2019 Assessment & Plan (1) SBP (spontaneous bacterial peritonitis): Peritoneal fluid cell counts at admission s/p diagnostic paracentesis consistent with SBP. He was on cipro IV since admission w/o significant general improvement. His culture grew cutibacterium acnes (gram positive noel). The Cipro was changed to IV unasyn on 03/20 It is difficult to say if this pathogen is truly pathogenic or contaminant but given how immunocompromised he is (chronic prednisone use, etc) would consider pathogenic unless proven otherwise. GI says to consider a repeat diagnostic paracentesis after improvement of his abdominal wall cellulitis if he continues to have abdominal pain Clinically his abd pain is better which would argue SBP is resolving. Will not likely perform repeat paracentesis at this time as he is not having significant abdominal pain and we are moving towards comfort care -after adequate treatment of this episode of SBP he likely will need cipro as SBP prophylaxis thereafter. -Received 8 days of IV Unasyn and will switch to Augmentin today for 6 more days 875 mg p.o. twice daily (2) Abdominal wall cellulitis: Improved erythema on the left side of abdomen Treated with Unasyn and daptomycin-now on daptomycin discontinued, continuing Augmentin as above ID consultation appreciated. (3) LETTY (acute kidney injury): Peak Cr was 2.1 on admission with infection and then had some improvement with giving albumin and normal saline Creatinine continues to rise now at 2.16 and sodium 129 Discussed with the patient, his family, and nephrology about the fact that his creatinine may rise with continued efforts to diuresis Urine output is really diminished today and he has very minimal p.o. intake His albumin is severely low at 1.9 which will make a loop diuretic less effective -Decrease Bumex to 1 mg p.o. twice daily -Decrease spironolactone to 25 mg once daily in the morning -Renally dose medications -Avoid nephrotoxins -Follow urine output, Verma catheter in place Overall guarded prognosis (4) CKD stage 3 due to type 2 diabetes mellitus: creatinine at baseline is around 1.5 Nephrology has signed off-appreciate their assistance -Follow BMP (5) Candidal UTI (urinary tract infection): With Christina glabrata and urinalysis -Completed 5 days of amphotericin bladder irrigation -Completed 6 days of IV caspofungin-discontinue due to losing IV and moving towards comfort measures of note - pt has had fungemia in the past per his family during an admission at [facility]. appreciate Dr Banks's assistance. (6) Hyponatremia: acute/chronic, sodium today is slightly improved at 129, secondary to volume overload TSH, cortisol wnl Urine Na very low uric acid is normal which would argue against SIADH -Decreasing Bumex and Aldactone as above respiratory status stable -Follow BMP (7) Sarcoidosis: long-standing, steroid-dependent (prednisone 20mg/day) in light of infections he did receive stress dose steroids-now back to usual dose (8) Cirrhosis: Secondary to sarcoid, medication toxicity, etc He also used to consume wine on a daily basis and there may be some alcohol component Continues with waxing and waning encephalopathy and has had elevated ammonia levels this admission-encephalopathy is at this point related to opioid use but is now acceptable in light of poor prognosis overall and family and patient have decided to pursue more of a Palliative approach -Cont lactulose and rifaximin for hepatic encephalopathy prophylaxis -Continue to treat SBP as above -Aldactone continues -Continue p.o. Bumex -appreciate GI consult & recs -cont PPI twice daily (h/o multiple upper GI issues) -Needs outpatient GI follow-up after discharge if desires (9) DM type 2 (diabetes mellitus, type 2): BSGs acceptable at this time, but remain low due to very poor p.o. 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 Platelets decreased stable today at 56, no evidence of bleeding follow with daily CBC (12) Cognitive impairment: at baseline appears to mild cognitive impairment based on 's account (13) Tachycardia: EKGs with sinus tach the sinus tach started abruptly in the midst of his infections Now resolved for the most part but up and down likely due to intravascular volume depletion dopplers neg for DVT; doesn't rule out PE but suspicion for PE is low at this time -Follow (14) Depression: on 40mg prozac long time depression is quite severe Discussed the case with psychiatry-given ongoing multiple comorbidities, low platelets, hyponatremia, and encephalopathy, psychiatry actually recommends titrating off his Prozac-now completely off of -Psychiatry recommends eventually starting either mirtazapine or Lexapro in future if needed-we will hold off for now (15) Gross hematuria: resolved No follow-up needed with urology (16) DVT prophylaxis: SCDs, chemical means contraindicated due to low platelets Disposition He is severely debilitated and can no longer do his usual transfers Palliative care consultation appreciated-family and patient wished to pursue comfort measures with hospice upon discharge He has now finished his IV antibiotics and amphotericin B bladder washes and can be discharged to group home with hospice Will discontinue all blood draws at this time due to comfort desire DNR/DNI Subjective Patient drowsy today but does wake up and tell me his pain is fairly well- controlled. He has no appetite and has hardly eaten at all today. He shakes my hand and says thank you for taking care of him. Nurse reports that he continues to be seeping serous fluid from multiple areas of his legs, and that after every blood draw, he leaks fluid through the needle hole that soaks gauze pads Review of Systems Review of Systems: All systems reviewed & are unremarkable except as noted in HPI & below Physical Exam Constitutional: + ill appearing (Drowsy but wakes up) and + obese; no acute distress Eyes: PERRL, conjunctivae normal, anicteric sclerae (With bilateral proptosis) Neck: trachea midline, no thyromegaly Respiratory: normal respiratory effort Auscultation: + diminished lung sounds (At the bases bilaterally); no crackles, no rhonchi and no wheezes Cardiovascular: Rate/Rhythm: regular rate and regular rhythm Heart Sounds: + murmur (2/6 at RUSB) Extremities: + edema (3+ pitting edema of the LEs to the thighs bilaterally, edema of arms and abdominal wall) Gastrointestinal (Abdomen): Inspection/Auscultation: + abdomen abnormal to inspection (very large LLQ hernia,difficult to completely reduce,is edematous,nontender) Percussion/Palpation: + abdomen tender (mild on right side abdomen, no guarding) and abdomen soft; abdomen not rigid Musculoskeletal: Extremities: no cyanosis and no clubbing Skin: + wound (multiple scabbed over lesions on all extremities covered with dressings) and + erythema (Mild erythema of the left lateral abdominal wall improved from previous) Psychiatric: Mood: + depressed mood Genitourinary: + scrotum abnormality (With penile and scrotal edema-moderate, Verma catheter in place, no hematuria) Results & Data Vital Signs (Past 12 Hours) Vital Signs Temp Pulse Resp BP BP Pulse Ox 03/27/19 15:04 36.4 C L 110 H 18 93/56 L 94 03/27/19 07:38 36.3 C L 107 H 18 95/60 L 96 Laboratory Results 03/27/19 03/27/19 03/27/19 Range/Units 20:41 17:05 11:34 WBC (4.8-10.8) K/uL RBC (4.7-6.1) M/uL Hgb (14.0-18.0) g/dL Hct (42-52) % MCV (80-100) fL MCH (25-34) pg MCHC (32-36) g/dL RDW Std Deviation (36.4-46.3) fL RDW Coeff of Curt (11.5-14.5) % Plt Count (130-400) K/uL Immature Gran % (Auto) % Neut % (Auto) % Lymph % (Auto) % Arroyo % (Auto) % Eos % (Auto) % Baso % (Auto) % Immature Gran # (Auto) (0.00-0.02) K/uL Neut # (Auto) (1.4-6.5) K/uL Lymph # (Auto) (1.2-3.4) K/uL Arroyo # (Auto) (0.11-0.59) K/uL Eos # (Auto) (0-0.5) K/uL Baso # (Auto) (0-0.2) K/uL Toxic Granulation Platelet Estimate (Normal) Anisocytosis Target Cells PT (9.0-12.0) Seconds INR (0.9-1.1) Sodium (136-145) mmol/L Potassium (3.5-5.1) mmol/L Chloride (98-107) mmol/L Carbon Dioxide (21-32) mmol/L Anion Gap (3-11) BUN (7-18) mg/dl Creatinine (0.6-1.4) mg/dl Est Cr Clr Drug Dosing ml/min Est GFR ( Amer) Est GFR (Non-Af Amer) BUN/Creatinine Ratio (10-20) Glucose (70-99) mg/dl POC Glucose 130 H 135 H 121 H (70-99) Calcium (8.5-10.1) mg/dl Total Bilirubin (0.2-1) mg/dl Direct Bilirubin (0-0.2) mg/dl AST (15-37) U/L ALT (12-78) U/L Alkaline Phosphatase (45-117) U/L Total Protein (6.4-8.2) gm/dl Albumin (3.4-5.0) gm/dl 03/27/19 03/27/19 03/27/19 Range/Units 08:08 08:08 08:08 WBC 8.62 (4.8-10.8) K/uL RBC 4.19 L (4.7-6.1) M/uL Hgb 10.3 L (14.0-18.0) g/dL Hct 31.5 L (42-52) % MCV 75.2 L (80-100) fL MCH 24.6 L (25-34) pg MCHC 32.7 (32-36) g/dL RDW Std Deviation 64.7 H (36.4-46.3) fL RDW Coeff of Curt 23.9 H (11.5-14.5) % Plt Count 56 L (130-400) K/uL Immature Gran % (Auto) 1.2 % Neut % (Auto) 89.1 % Lymph % (Auto) 4.6 % Arroyo % (Auto) 3.4 % Eos % (Auto) 1.6 % Baso % (Auto) 0.1 % Immature Gran # (Auto) 0.10 H (0.00-0.02) K/uL Neut # (Auto) 7.68 H (1.4-6.5) K/uL Lymph # (Auto) 0.40 L (1.2-3.4) K/uL Arroyo # (Auto) 0.29 (0.11-0.59) K/uL Eos # (Auto) 0.14 (0-0.5) K/uL Baso # (Auto) 0.01 (0-0.2) K/uL Toxic Granulation 3+ Platelet Estimate Decreased L (Normal) Anisocytosis Present Target Cells 1+ PT 13.4 H (9.0-12.0) Seconds INR 1.3 H (0.9-1.1) Sodium 129 L (136-145) mmol/L Potassium 4.1 (3.5-5.1) mmol/L Chloride 94 L (98-107) mmol/L Carbon Dioxide 23 (21-32) mmol/L Anion Gap 11.0 (3-11) BUN 52 H (7-18) mg/dl Creatinine 2.16 H D (0.6-1.4) mg/dl Est Cr Clr Drug Dosing 34.1 ml/min Est GFR ( Amer) 35.7 Est GFR (Non-Af Amer) 30.8 BUN/Creatinine Ratio 23.8 H (10-20) Glucose 93 (70-99) mg/dl POC Glucose (70-99) Calcium 8.7 (8.5-10.1) mg/dl Total Bilirubin 2.4 H (0.2-1) mg/dl Direct Bilirubin 1.7 H (0-0.2) mg/dl AST 36 (15-37) U/L ALT 24 (12-78) U/L Alkaline Phosphatase 328 H (45-117) U/L Total Protein 5.0 L (6.4-8.2) gm/dl Albumin 1.9 L (3.4-5.0) gm/dl 03/27/19 Range/Units 08:04 WBC (4.8-10.8) K/uL RBC (4.7-6.1) M/uL Hgb (14.0-18.0) g/dL Hct (42-52) % MCV (80-100) fL MCH (25-34) pg MCHC (32-36) g/dL RDW Std Deviation (36.4-46.3) fL RDW Coeff of Curt (11.5-14.5) % Plt Count (130-400) K/uL Immature Gran % (Auto) % Neut % (Auto) % Lymph % (Auto) % Arroyo % (Auto) % Eos % (Auto) % Baso % (Auto) % Immature Gran # (Auto) (0.00-0.02) K/uL Neut # (Auto) (1.4-6.5) K/uL Lymph # (Auto) (1.2-3.4) K/uL Arroyo # (Auto) (0.11-0.59) K/uL Eos # (Auto) (0-0.5) K/uL Baso # (Auto) (0-0.2) K/uL Toxic Granulation Platelet Estimate (Normal) Anisocytosis Target Cells PT (9.0-12.0) Seconds INR (0.9-1.1) Sodium (136-145) mmol/L Potassium (3.5-5.1) mmol/L Chloride (98-107) mmol/L Carbon Dioxide (21-32) mmol/L Anion Gap (3-11) BUN (7-18) mg/dl Creatinine (0.6-1.4) mg/dl Est Cr Clr Drug Dosing ml/min Est GFR ( Amer) Est GFR (Non-Af Amer) BUN/Creatinine Ratio (10-20) Glucose (70-99) mg/dl POC Glucose 92 (70-99) Calcium (8.5-10.1) mg/dl Total Bilirubin (0.2-1) mg/dl Direct Bilirubin (0-0.2) mg/dl AST (15-37) U/L ALT (12-78) U/L Alkaline Phosphatase (45-117) U/L Total Protein (6.4-8.2) gm/dl Albumin (3.4-5.0) gm/dl (1) DM type 2 (diabetes mellitus, type 2) Diabetes mellitus complication status: without complication 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
--- NOTE | 2019-03-27 19:54 | Infectious Disease Progress Nt ---
Date of Service March 27, 2019 Assessment & Plan (1) Abdominal wall cellulitis: Patient with abdominal wall cellulitis, slowly improving with Unasyn. Has Christina glabrata urinary tract infection, treatment with IV caspofungin and amphotericin B bladder irrigation. Patient will complete 7 days of Unasyn today, to transition to Augmentin tomorrow if stable. (2) Candidal UTI (urinary tract infection): Subjective Patient seen in follow-up for abdominal wall cellulitis and fungal urinary tract infection. Very lethargic today, not participating with history. Afebrile, no expressed worsening abdominal pain. Review of Systems Review of Systems: All systems reviewed & are unremarkable except as noted in HPI & below Physical Exam Constitutional: WD/WN, vitals as above + ill appearing and comfortable; no acute distress Eyes: PERRL, conjunctivae normal, anicteric sclerae ENMT: external ear and nose normal, oropharynx normal Neck: trachea midline, no thyromegaly neck nontender Respiratory: normal respiratory effort, lungs clear to auscultation normal percussion; does not use accessory muscles Cardiovascular: RRR, no murmur, no edema Rate/Rhythm: regular rate and regular rhythm Heart Sounds: normal S1 and normal S2; no gallop, no murmur and no cardiac rub Vessels: normal peripheral pulses; no JVD Gastrointestinal (Abdomen): Inspection/Auscultation: + abdomen distended Percussion/Palpation: + abdomen tender (Left lower quadrant without rebound or guarding); no hepatomegaly and no abdominal mass Musculoskeletal: no cyanosis or clubbing, extremities motor strength 5/5 Spine: thoracic spine normal to inspection and lumbar spine normal to inspection; no cervical spinal tenderness Skin: no rashes, warm and dry normal turgor Neurologic: patellar DTR's 2+ bilat, sensation intact moves all extremities; no focal motor deficits Psychiatric: A+Ox3, euthymic affect Orientation: alert, oriented x 3 and cooperative Affect: + depressed affect Lymphatic: no cervical or axillary lymphadenopathy no inguinal lymphadenopathy Results & Data Vital Signs (Past 12 Hours) Vital Signs Temp Pulse Resp BP Pulse Ox 03/27/19 15:04 36.4 C L 110 H 18 93/56 L 94 Laboratory Results Short CBC 03/27/19 Range/Units 08:08 WBC 8.62 (4.8-10.8) K/uL Hgb 10.3 L (14.0-18.0) g/dL Hct 31.5 L (42-52) % Plt Count 56 L (130-400) K/uL BMP 03/27/19 08:08 Sodium 129 L Potassium 4.1 Chloride 94 L Carbon Dioxide 23 BUN 52 H Creatinine 2.16 H D Glucose 93 Calcium 8.7 Liver Function 03/27/19 Range/Units 08:08 Total Bilirubin 2.4 H (0.2-1) mg/dl Direct Bilirubin 1.7 H (0-0.2) mg/dl AST 36 (15-37) U/L ALT 24 (12-78) U/L Alkaline Phosphatase 328 H (45-117) U/L Albumin 1.9 L (3.4-5.0) gm/dl Diagnostic Findings Microbiology 03/13/19 Unknown Peritoneal Fluid Acid Fast Bacilli Smear - Final 03/13/19 Unknown Peritoneal Fluid Acid Fast Bacilli Culture - Preliminary No Acid-Fast Bacilli Isolated - Report 2, Additional Report to Follow. 03/19/19 18:37 Urine,Indwelling Cath Urine Culture - Final Christina glabrata 03/13/19 Unknown Peritoneal Fluid Gram Stain - Final 03/13/19 Unknown Peritoneal Fluid Aerobic and Anaerobic Culture - Final Cutibacterium (Propioni) acnes 03/12/19 20:44 Blood Blood Culture - Final No growth 03/12/19 20:31 Blood Blood Culture - Final No growth
[2019-03-27] MEDS: ATORVASTATIN 10 MG TAB PO SCH (21:18)
[2019-03-27] MEDS: LORATADINE 10 MG TAB PO SCH (21:18)
[2019-03-28] MEDS: CHECK FENTANYL PATCH PLACEMENT SCH ×6 (00:50→15:38)
[2019-03-28] MEDS: OXYCODONE HCL IR 5 MG TAB (IMMEDIATE RELEASE) PO PRN ×3 (05:08→19:00)
[2019-03-28] MEDS: SPIRONOLACTONE 25 MG TAB PO SCH (08:52)
[2019-03-28] MEDS: BUMETANIDE 1 MG TAB PO SCH ×2 (08:53→18:34)
[2019-03-28] MEDS: ARTIFICIAL TEARS OP SCH ×2 (08:53→21:15)
[2019-03-28] MEDS: LACTULOSE SYRUP 20 GM/30 ML UDC PO SCH ×3 (08:53→21:15)
[2019-03-28] MEDS: PENTOXIFYLLINE 400MG EXT REL TAB PO SCH ×2 (08:54→21:13)
[2019-03-28] MEDS: RIFAXIMIN 550 MG TABLET PO SCH ×2 (08:54→21:13)
[2019-03-28] MEDS: predniSONE 20 MG TAB PO SCH (08:54)
[2019-03-28] MEDS: PANTOprazole 40 MG TAB PO SCH ×2 (08:54→21:14)
[2019-03-28] MEDS: INSULIN ASPART 100 UNITS/ML 3 ML PEN SC SCH ×4 (09:44→21:47)
[2019-03-28] MEDS: AMOXICILLIN/CLAVULANATE 875 MG TAB PO SCH ×2 (11:53→18:55)
[2019-03-28] MEDS: DICLOFENAC SOD 1% GEL 100 GM TUBE EXT PRN ×2 (15:45→21:14)
--- NOTE | 2019-03-28 19:04 | Hospitalist Progress Note ---
Date of Service March 28, 2019 Assessment & Plan (1) SBP (spontaneous bacterial peritonitis): Peritoneal fluid cell counts at admission s/p diagnostic paracentesis consistent with SBP. He was on cipro IV since admission w/o significant general improvement. His culture grew cutibacterium acnes (gram positive noel). The Cipro was changed to IV unasyn on 03/20 and now on p.o. Augmentin-day #9 of 14 days of treatment It is difficult to say if this pathogen is truly pathogenic or contaminant but given how immunocompromised he is (chronic prednisone use, etc) would consider pathogenic unless proven otherwise. Will not perform repeat paracentesis at this time as he is not having significant abdominal pain and we are moving towards comfort care -Previously plan was to continue Cipro 500 mg once daily after Augmentin completed for SBP prophylaxis, but suspect his prognosis is very poor so would not be necessary (2) Abdominal wall cellulitis: Resolved on the left side of the abdomen Treated with Unasyn and daptomycin for 6 days-now on Augmentin as above ID consultation appreciated. (3) LETTY (acute kidney injury): Peak Cr was 2.1 on admission with infection and then had some improvement with giving albumin and normal saline Creatinine continues to rise now at 2.16 and sodium 129 Discussed with the patient, his family, and nephrology about the fact that his creatinine may rise with continued efforts to diuresis Now oliguric and he has very minimal p.o. intake, no longer checking blood test due to comfort measures His albumin is severely low at 1.9 which will make a loop diuretic less effect dinesh. We have since stopped doing IV diuresis -Continue Bumex 1 mg p.o. twice daily -Continue spironolactone 25 mg once daily in the morning-dose was lowered due to hypotension -Renally dose medications -Avoid nephrotoxins -Follow urine output, Verma catheter exchanged on 03/28 Overall very guarded prognosis-if remains oliguric or anorexic, would expect him to pass away within the next week (4) CKD stage 3 due to type 2 diabetes mellitus: creatinine at baseline is around 1.5 Nephrology has signed off-appreciate their assistance -Follow BMP (5) Candidal UTI (urinary tract infection): With Christina glabrata -Completed 5 days of amphotericin bladder irrigation -Completed a course of IV caspofungin (6) Hyponatremia: acute/chronic, sodium improved at 129, secondary to volume overload TSH, cortisol wnl Urine Na very low uric acid is normal which would argue against SIADH -No longer following labs due to comfort measures (7) Sarcoidosis: long-standing, steroid-dependent (prednisone 20mg/day) in light of infections he did receive stress dose steroids-now back to usual dose-would continue this upon discharge until not able to take p.o. (8) Cirrhosis: Secondary to sarcoid, medication toxicity, etc He also used to consume wine on a daily basis and there may be some alcohol component Continues with waxing and waning encephalopathy and has had elevated ammonia lev els this admission-encephalopathy is at this point related to opioid use but is now acceptable in light of poor prognosis overall and family and patient have decided to pursue more of a Palliative approach -Cont lactulose and rifaximin for now, but consider discontinuing if diarrhea causes discomfort -Treating SBP as above -Aldactone continues -Continue p.o. Bumex -appreciate GI consult & recs -cont PPI twice daily (h/o multiple upper GI issues) No outpatient GI follow-up as prognosis now quite poor (9) DM type 2 (diabetes mellitus, type 2): BSGs acceptable at this time, but remain low due to very poor p.o. 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 Platelets decreased persistently at 56, no evidence of bleeding No longer need to follow CBC (12) Cognitive impairment: at baseline appears to mild cognitive impairment based on 's account (13) Tachycardia: EKGs with sinus tach the sinus tach started abruptly in the midst of his infections Now resolved for the most part but up and down likely due to intravascular volume depletion Dopplers neg for DVT; doesn't rule out PE but suspicion for PE is low at this time No further work-up or treatment needed (14) Depression: Prozac was discontinued by psychiatry here as plan was to start either mirtazapine or Lexapro which would be better for his age and comorbidities. However, given very poor prognosis and short life expectancy, will not start a new psychiatric medication at this time (15) Gross hematuria: resolved No follow-up needed with urology given he is [facility] (16) DVT prophylaxis: Removed SCDs and JENIFER hose due to severe anasarca and frail skin with weepi ng Disposition He is severely debilitated and can no longer do his usual transfers Palliative care consultation appreciated-family and patient wished to pursue comfort measures with hospice upon discharge No blood draws, no IV fluids or IV diuresis, no further IV antibiotics DNR/DNI Plan is for discharge to [facility] on 03/29 with hospice Subjective Patient states he is having suprapubic region today and has essentially made very little to no urine all day long. His Verma catheter was replaced and still no urine. CT confirms he has a decompressed bladder and is just oliguric. Otherwise, patient reports his pain in the back and the rest of his abdomen is well controlled. Review of Systems Review of Systems: All systems reviewed & are unremarkable except as noted in HPI & below Physical Exam Constitutional: + ill appearing (Drowsy but wakes up and answers questions) and + obese; no acute distress Eyes: + scleral abnormality (Left medial and inferior sclera with subconjunctival hemorrhage) and + position abnormality (Severe bilateral proptosis) Neck: trachea midline, no thyromegaly Respiratory: normal respiratory effort Auscultation: + diminished lung sounds (At the bases bilaterally); no crackles, no rhonchi and no wheezes Cardiovascular: Rate/Rhythm: regular rate and regular rhythm Heart Sounds: + murmur (2/6 at RUSB) Extremities: + edema (3+ pitting edema/anasarca with weeping fluid) Gastrointestinal (Abdomen): Inspection/Auscultation: + abdomen abnormal to inspection (very large LLQ hernia,difficult to completely reduce,is edematous,nontender) Percussion/Palpation: + abdomen tender (Minimal in the suprapubic region, no bladder distention palpated) and abdomen soft; abdomen not rigid Musculoskeletal: Extremities: no cyanosis and no clubbing Skin: + wound (multiple scabbed over lesions on all extremities covered with dressings) and + erythema (Mild erythema of the left lateral abdominal wall improved from previous) Psychiatric: Orientation: + not alert (Drowsy but does wake up) Eye Contact: + fair eye contact Mood: + depressed mood Genitourinary: + scrotum abnormality (With penile and scrotal edema-moderate, Verma catheter in place, no hematuria) Results & Data Vital Signs (Past 12 Hours) Vital Signs Temp Pulse Resp BP BP Pulse Ox 03/28/19 15:39 36.2 C L 102 H 20 92/61 L 96 03/28/19 07:26 36.3 C L 106 H 18 89/55 L 98 Laboratory Results 03/28/19 03/28/19 03/28/19 Range/Units 20:45 16:20 11:44 POC Glucose 94 92 92 (70-99) 03/28/19 Range/Units 07:58 POC Glucose 82 (70-99) (1) DM type 2 (diabetes mellitus, type 2) Diabetes mellitus complication status: without complication 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
--- NOTE | 2019-03-28 19:40 | CT Scan Report ---
CT abd pelvis wo con CT DOSE: 1437.69 mGy.cm HISTORY: Pain lower abdominal pain,no urine output from Verma TECHNIQUE: Multiaxial CT images of the abdomen and pelvis were performed without contrast. A dose lo wering technique was utilized adhering to the principles of ALARA. COMPARISON STUDY: 03/17/2019 FINDINGS: Interval development of bilateral pleural effusions with mild bibasilar atelectatic change. Findings of abdominal and pelvic ascites are similar. Cirrhotic liver. Slightly contracted gallbladde r. Atrophic pancreas. Mild splenomegaly. Mild body wall anasarca. This is similar compared to the prior study. Moderate amount of ascites within the paracolic gutter regions. Mild nonspecific infiltrative change of the left and to a lesser extent right pericolonic fat. No significant bowel wall thickening. Verma catheter within a collapsed bladder. No evidence for hydronephrosis. Moderate cortical scarring and thinning bilaterally. Stable postoperative changes to the spine. Unchanging lower left rib fractures. IMPRESSION: 1. No major change compared to the prior study of 03/17/2019. 2. Interval development of small bilateral pleural effusions with mild bibasilar atelectatic change. 3. Unchanging findings of hepatic cirrhosis, diffuse ascites, as well as nonspecific infiltrative [place] nge left and to a lesser extent right paracolic gutter regions. Loculated ascitic fluid collections a re unaltered 4. Mild body wall anasarca slightly increased from the prior exam. The above report was generated using voice recognition software. It may contain grammatical, syntax or spelling errors. Electronically signed by: Naga Vázquez M.D. 03/28/2019 7:38 PM
--- NOTE | 2019-03-28 20:19 | Infectious Disease Progress Nt ---
Date of Service March 28, 2019 Assessment & Plan (1) Abdominal wall cellulitis: Patient with abdominal wall cellulitis, slowly improving with Unasyn. Has Christina glabrata urinary tract infection, treatment with IV caspofungin and amphotericin B bladder irrigation. Completed 7 days of IV Unasyn, to treat with Augmentin. Will follow. (2) Candidal UTI (urinary tract infection): Subjective Patient seen in follow-up for abdominal wall cellulitis and fungal urinary tract infection. Remains lethargic, not answering questions at present. Remains afebrile. Has completed 7 days of Unasyn. Review of Systems Review of Systems: Unobtainable due to cognitive status Physical Exam Constitutional: WD/WN, vitals as above + ill appearing and comfortable; no acute distress Eyes: PERRL, conjunctivae normal, anicteric sclerae ENMT: external ear and nose normal, oropharynx normal Neck: trachea midline, no thyromegaly neck nontender Respiratory: normal respiratory effort, lungs clear to auscultation normal percussion; does not use accessory muscles Cardiovascular: RRR, no murmur, no edema Rate/Rhythm: regular rate and regular rhythm Heart Sounds: normal S1 and normal S2; no gallop, no murmur and no cardiac rub Vessels: normal peripheral pulses; no JVD Gastrointestinal (Abdomen): Inspection/Auscultation: + abdomen distended Percussion/Palpation: + abdomen tender (Left lower quadrant without rebound or guarding); no hepatomegaly and no abdominal mass Musculoskeletal: no cyanosis or clubbing, extremities motor strength 5/5 Spine: thoracic spine normal to inspection and lumbar spine normal to inspection; no cervical spinal tenderness Skin: no rashes, warm and dry normal turgor Neurologic: patellar DTR's 2+ bilat, sensation intact moves all extremities; no focal motor deficits Psychiatric: A+Ox3, euthymic affect Orientation: alert, oriented x 3 and cooperative Affect: + depressed affect Lymphatic: no cervical or axillary lymphadenopathy no inguinal lymphadenopathy Results & Data Vital Signs (Past 12 Hours) Vital Signs Temp Pulse Resp BP Pulse Ox 03/28/19 15:39 36.2 C L 102 H 20 92/61 L 96 Laboratory Results Laboratory Results - last 48 hr 03/26/19 03/27/19 03/27/19 20:22 08:04 08:08 WBC 8.62 RBC 4.19 L Hgb 10.3 L Hct 31.5 L MCV 75.2 L MCH 24.6 L MCHC 32.7 RDW Std Deviation 64.7 H RDW Coeff of Curt 23.9 H Plt Count 56 L Immature Gran % (Auto) 1.2 Neut % (Auto) 89.1 Lymph % (Auto) 4.6 [place] % (Auto) 3.4 Eos % (Auto) 1.6 Baso % (Auto) 0.1 Immature Gran # (Auto) 0.10 H Neut # (Auto) 7.68 H Lymph # (Auto) 0.40 L [place] # (Auto) 0.29 Eos # (Auto) 0.14 Baso # (Auto) 0.01 Toxic Granulation 3+ Platelet Estimate Decreased L Anisocytosis Present Target Cells 1+ PT INR Sodium Potassium Chloride Carbon Dioxide Anion Gap BUN Creatinine Est Cr Clr Drug Dosing Est GFR ( Amer) Est GFR (Non-Af Amer) BUN/Creatinine Ratio Glucose POC Glucose 109 H 92 Calcium Total Bilirubin Direct Bilirubin AST ALT Alkaline Phosphatase Total Protein Albumin 03/27/19 03/27/19 03/27/19 08:08 08:08 11:34 WBC RBC Hgb Hct MCV MCH MCHC RDW Std Deviation RDW Coeff of Curt Plt Count Immature Gran % (Auto) Neut % (Auto) Lymph % (Auto) [place] % (Auto) Eos % (Auto) Baso % (Auto) Immature Gran # (Auto) Neut # (Auto) Lymph # (Auto) [place] # (Auto) Eos # (Auto) Baso # (Auto) Toxic Granulation Platelet Estimate Anisocytosis Target Cells PT 13.4 H INR 1.3 H Sodium 129 L Potassium 4.1 Chloride 94 L Carbon Dioxide 23 Anion Gap 11.0 BUN 52 H Creatinine 2.16 H D Est Cr Clr Drug Dosing 34.1 Est GFR ( Amer) 35.7 Est GFR (Non-Af Amer) 30.8 BUN/Creatinine Ratio 23.8 H Glucose 93 POC Glucose 121 H Calcium 8.7 Total Bilirubin 2.4 H Direct Bilirubin 1.7 H AST 36 ALT 24 Alkaline Phosphatase 328 H Total Protein 5.0 L Albumin 1.9 L 03/27/19 03/27/19 03/28/19 17:05 20:41 07:58 WBC RBC Hgb Hct MCV MCH MCHC RDW Std Deviation RDW Coeff of Curt Plt Count Immature Gran % (Auto) Neut % (Auto) Lymph % (Auto) [place] % (Auto) Eos % (Auto) Baso % (Auto) Immature Gran # (Auto) Neut # (Auto) Lymph # (Auto) [place] # (Auto) Eos # (Auto) Baso # (Auto) Toxic Granulation Platelet Estimate Anisocytosis Target Cells PT INR Sodium Potassium Chloride Carbon Dioxide Anion Gap BUN Creatinine Est Cr Clr Drug Dosing Est GFR ( Amer) Est GFR (Non-Af Amer) BUN/Creatinine Ratio Glucose POC Glucose 135 H 130 H 82 Calcium Total Bilirubin Direct Bilirubin AST ALT Alkaline Phosphatase Total Protein Albumin 03/28/19 03/28/19 11:44 16:20 WBC RBC Hgb Hct MCV MCH MCHC RDW Std Deviation RDW Coeff of Curt Plt Count Immature Gran % (Auto) Neut % (Auto) Lymph % (Auto) [place] % (Auto) Eos % (Auto) Baso % (Auto) Immature Gran # (Auto) Neut # (Auto) Lymph # (Auto) [place] # (Auto) Eos # (Auto) Baso # (Auto) Toxic Granulation Platelet Estimate Anisocytosis Target Cells PT INR Sodium Potassium Chloride Carbon Dioxide Anion Gap BUN Creatinine Est Cr Clr Drug Dosing Est GFR ( Amer) Est GFR (Non-Af Amer) BUN/Creatinine Ratio Glucose POC Glucose 92 92 Calcium Total Bilirubin Direct Bilirubin AST ALT Alkaline Phosphatase Total Protein Albumin Diagnostic Findings Microbiology 03/13/19 Unknown Peritoneal Fluid Acid Fast Bacilli Smear - Final 03/13/19 Unknown Peritoneal Fluid Acid Fast Bacilli Culture - Preliminary No Acid-Fast Bacilli Isolated - Report 2, Additional Report to Follow. 03/19/19 18:37 Urine,Indwelling Cath Urine Culture - Final Christina glabrata 03/13/19 Unknown Peritoneal Fluid Gram Stain - Final 03/13/19 Unknown Peritoneal Fluid Aerobic and Anaerobic Culture - Final Cutibacterium (Propioni) acnes 03/12/19 20:44 Blood Blood Culture - Final No growth 03/12/19 20:31 Blood Blood Culture - Final No growth
[2019-03-28] MEDS: ATORVASTATIN 10 MG TAB PO SCH (21:14)
[2019-03-28] MEDS: LORATADINE 10 MG TAB PO SCH (21:14)
[2019-03-28] MEDS ORDERED: OXYBUTYNIN CHLORIDE 5 MG TAB PO PRN (21:53)
[2019-03-29] MEDS: CHECK FENTANYL PATCH PLACEMENT SCH ×8 (00:05→23:43)
[2019-03-29] MEDS: INSULIN ASPART 100 UNITS/ML 3 ML PEN SC SCH ×4 (08:10→21:22)
[2019-03-29] MEDS: OXYCODONE HCL IR 5 MG TAB (IMMEDIATE RELEASE) PO PRN ×2 (08:38→13:51)
[2019-03-29] MEDS: ARTIFICIAL TEARS OP SCH ×2 (08:39→21:11)
[2019-03-29] MEDS: SPIRONOLACTONE 25 MG TAB PO SCH (08:39)
[2019-03-29] MEDS: AMOXICILLIN/CLAVULANATE 875 MG TAB PO SCH ×3 (08:39→16:00)
[2019-03-29] MEDS: PENTOXIFYLLINE 400MG EXT REL TAB PO SCH ×2 (08:40→21:07)
[2019-03-29] MEDS: LACTULOSE SYRUP 20 GM/30 ML UDC PO SCH ×3 (08:40→21:07)
[2019-03-29] MEDS: BUMETANIDE 1 MG TAB PO SCH ×3 (08:40→16:01)
[2019-03-29] MEDS: predniSONE 20 MG TAB PO SCH (08:40)
[2019-03-29] MEDS: PANTOprazole 40 MG TAB PO SCH ×2 (08:40→21:07)
[2019-03-29] MEDS: RIFAXIMIN 550 MG TABLET PO SCH ×2 (08:41→21:07)
[2019-03-29] MEDS ORDERED: MoRPHine SULFATE 2 MG/ML CARP IV PRN (11:47)
--- NOTE | 2019-03-29 13:13 | Progress Note ---
DATE: 03/29/2019 The patient is not doing well overall, following admission for spontaneous bacterial peritonitis, he was started on Cipro and then switched to Zosyn, but due to his overall poor health, he continues to decline despite being treated for spontaneous bacterial peritonitis. His abdomen is not really tender anymore. The cellulitis is stabilized or improving, but the plan is to continue toward comfort measures at this point. We have no further suggestions at this time and will sign off.
[2019-03-29] MEDS: MoRPHine SULFATE 5 MG/0.25 ML UDP PO PRN ×3 (14:04→16:24)
--- NOTE | 2019-03-29 14:34 | Infectious Disease Progress Nt ---
Date of Service March 29, 2019 Assessment & Plan (1) Abdominal wall cellulitis: Patient with treated bacterial peritonitis, improved abdominal wall cellulitis now transition to oral Augmentin. Fungal urinary tract infection treated with caspofungin and amphotericin B bladder irrigation. To continue on Augmentin for now. Will follow. (2) Candidal UTI (urinary tract infection): (3) SBP (spontaneous bacterial peritonitis): Subjective Patient seen in follow-up for bacterial peritonitis, abdominal wall cellulitis, and Christina urinary tract infection.Abdominal wall cellulitis has improved, abdominal pain at present. Clinically worsening and palliative care being considered. No fever. Review of Systems Review of Systems: All systems reviewed & are unremarkable except as noted in HPI & below Results & Data Vital Signs (Past 12 Hours) Vital Signs Temp Pulse Resp BP Pulse Ox 03/29/19 07:22 36.7 C 111 H 20 90/52 L 94 Laboratory Results Laboratory Results - last 48 hr 03/27/19 03/27/19 03/28/19 17:05 20:41 07:58 POC Glucose 135 H 130 H 82 03/28/19 03/28/19 03/28/19 11:44 16:20 20:45 POC Glucose 92 92 94 03/29/19 03/29/19 07:43 11:53 POC Glucose 82 79 Diagnostic Findings Microbiology 03/13/19 Unknown Peritoneal Fluid Acid Fast Bacilli Smear - Final 03/13/19 Unknown Peritoneal Fluid Acid Fast Bacilli Culture - Preliminary No Acid-Fast Bacilli Isolated - Report 2, Additional Report to Follow. 03/19/19 18:37 Urine,Indwelling Cath Urine Culture - Final Christina glabrata 03/13/19 Unknown Peritoneal Fluid Gram Stain - Final 03/13/19 Unknown Peritoneal Fluid Aerobic and Anaerobic Culture - Final Cutibacterium (Propioni) acnes 03/12/19 20:44 Blood Blood Culture - Final No growth 03/12/19 20:31 Blood Blood Culture - Final No growth
[2019-03-29] MEDS ORDERED: NALOXONE HCL 0.4 MG/1 ML VIAL/CARP IV PRN (15:06)
--- NOTE | 2019-03-29 15:42 | Progress Note ---
Date of Service March 29, 2019 Assessment & Plan (1) Cirrhosis: I last saw Mr Santiago about 7 days ago and at that time he was being treated for SBP, abdominal wall cellulitis, and candidal UTI. Despite maximal medical efforts he did very poorly with little improvement on a general scale. He has remained anorexic and has had significant back pain, abdominal pain, and bladder pain throughout his stay requiring escalating doses of fentanyl patch and oxycodone. He has declined SIGNIFICANTLY since my last visit with him 7 days ago. Several days ago a decision was made to transition to hospice in light of his end-stage liver disease/cirrhosis and lack of clinical improvement despite zach atment of the above infections. Plan was for him to go to a personal skilled nursing this coming Monday with hospice in place. Today the patient was significantly altered/lethargic but was able to voice that he was having severe pain in his abdomen. He has had worsening oliguria over the last 48 hours and last creatinine several days ago showed acute kidney injury/failure. On exam he was tender in his abdomen and had asterixis consistent with hepatic encephalopathy. At this time he remains quite uncomfortable and has significant abdominal pain. I believe he should transition to inpatient hospice status for symptom control including pain, dyspnea, etc. I have spoken with Dr Barrett and Cortney Isaac from the palliative care team. Since we have lost IV access we may use morphine SC. While attempting SC access will change to morphine elixir for pain. I also applied 2 L NC O2 during my bedside rounds due to complaint of comfort. Hepatic cirrhosis type: other cirrhosis Qualified Code(s): K74.69 - Other cirrhosis of liver (2) Acute bacterial peritonitis: (3) LETTY (acute kidney injury): (4) Hepatic encephalopathy: Results & Data Vital Signs (Past 12 Hours) Vital Signs Temp Pulse Resp BP Pulse Ox 03/29/19 07:22 36.7 C 111 H 20 90/52 L 94
[2019-03-29] MEDS ORDERED: SIMETHICONE 80 MG CHEW PO PRN (16:16)
--- NOTE | 2019-03-29 16:22 | Palliative Care Progress Note ---
Date of Service March 29, 2019 Assessment & Plan (1) Goals of care, counseling/discussion: Goals of care, counseling/discussion: Patient's , sister, son-in-law at bedside. Patient is a 64-year-old male with a past medical history significant for cirrhosis, [id number], diabetes, CKD stage III, thrombocytopenia who was discharged from [facility] on 02/19 after a 2-week rehab stay for falls. has been able to transfer patient using a slide board up until a few days prior to admission. Patient was having increased weakness and had altered mental status-was brought to the ER on 03/12. Patient was diagnosed with SBP as well as fungal UTI-had been on Cipro without improvement, this was changed to Unasyn on 03/20-patient and family feel that he is making some improvement. He is on amphotericin bladder flushes and caspofungin IV for the fungal infection. Patient had several falls at home-sustained a new compression fracture. Patient was to transfer to [facility] with hospice care-bed will not be available until Monday. Rita from [address] [place] [address] at bedside to evaluate for possible [facility] hospice admission for pain control. Patient having increased pain-requiring more PRN medications-we will start on a morphine [employer]ACHINE [employer]EDER, continue his fentanyl patches until tomorrow morning then discontinue them, add PRN Ativan for anxiety and restlessness, also add PRN simethicone for gas pain. -Patient moving toward comfort care-we will discontinue patient's Lipitor, Claritin and Flonase. May need to discontinue other p.o. meds as patient's mental status declines -Encephalopathy-had improved with treatment of SBP and fungal UTI -now starting to decline-partly due to pain medications -CODE STATUS-DNR -Cirrhosis-patient continues to have loose stools, refuses lactulose occasionally, continues Xifaxan for now, albumin 2.0-contributing to edema as well as ascites, INR 1.3 -SBP-transition to p.o. Augmentin in anticipation of transfer to facility -Yeast UTI-patient completed bladder irrigation with amphotericin, and IV caspofungin -Sarcoid-on prednisone 25 mg daily-chronic steroid use likely contributing to infections -Back pain-due to compression fracture-pain increasing-we will start morphine [employer]ACHINE [employer]EDER and discontinue fentanyl patches tomorrow-dose calculated to include his fentanyl patches -CKD stage III-contributing to difficulty diuresing -DM-continue current insulin regime -Ascites-status post paracentesis on 03/09 4-1.3 L removed. Difficulty managing edema and ascites due to CKD POLST form completed-copy placed in chart, original given to Will continue to follow and assist with pain management goal decision making Subjective Patient seen and examined, patient's , sister and [id number] at bedside along with Rita from [address] [place] [address]. Patient with increased pain-received a PRN Roxanol approximately 30 minutes ago- continue to grimace and clenches fists with pain-stat dose given now x1 Discussed treatment options with -regarding pain management-we will start morphine F[employer] MACHINE [employer]EDER at continuous rate of 0.5 mg an hour with a bolus of 1 mg every 15 minutes as needed, will also order as needed Ativan for anxiety and restlessness, patient also complains of increased gas discomfort-we will order as needed simethicone. Discussed possibility of [facility] admission with [address] [place] [address] with nurse, Rita, at bedside. Review of Systems Review of Systems: Unable to obtain a full review of systems secondary to pain-patient did deny fever, chills, shortness of breath or increased abdominal pain Positive for increased back pain. Physical Exam Physical Exam: PE: Patient in moderate distress due to pain-stat dose of Roxanol given-good response. HEENT: Exophthalmos, hearing within normal limits Respiratory, mildly labored due to pain-clear breath sounds Abdomen: Soft, nontender, positive hernia Extremities: Positive edema Skin: Positive jaundice, toes pale, hands cool to touch Neuro: Slightly more confused-some confusion due to pain meds, elevated ammonia level may also be contributing Results & Data Vital Signs (Past 12 Hours) Vital Signs Temp Pulse Resp BP Pulse Ox 03/29/19 15:48 97.3 F L 107 H 18 80/48 L 98 03/29/19 07:22 98.1 F 111 H 20 90/52 L 94 Time Spent Attending Total time spent 70 minutes with greater than 50% of the time at bedside-patient was seen on 3 separate visits to assess effectiveness of pain regime.
[2019-03-29] MEDS ORDERED: LORazepam 0.5 MG TAB SL PRN (16:38)
[2019-03-29] MEDS ORDERED: FLUTICASONE PROPIONATE NA SPR 16 GM BTL PRN (16:40)
[2019-03-29] MEDS: MoRPHine SULFATE PCA 50 MG/50ML SQ SCH (16:56)
--- NOTE | 2019-03-29 19:10 | Hospitalist Progress Note ---
Date of Service March 29, 2019 Assessment & Plan (1) Abdominal pain: The patient has declined considerably in the last week. This is despite maximal medical efforts and Rx of all infectious processes including SBP, abd wall cellulitis, etc. He has had long-standing failure to thrive for months. Despite fentanyl patch and roxicode prn he continues with severe pain. I spoke with the palliative care team who plan to make additional recommendations for pain control. I suspect based on today's exam that his life expectency is a few days given his oliguria, hepatic encephalopathy, LETTY, etc. He may be an inpatient hospice candidate. Plan to transition to comfort care measures. (2) Metabolic encephalopathy: (3) Hepatic encephalopathy: (4) Cirrhosis: (5) CKD stage 3 due to type 2 diabetes mellitus: (6) LETTY (acute kidney injury): (7) Aortic stenosis: (8) Acute bacterial peritonitis: (9) Sarcoidosis: left message for today offering support Subjective patient quite confused during my visit. he yelled out in pain. I asked him to point and he ultimately pointed to his abdomen. he otherwise couldn't provide other history. Review of Systems Review of Systems: Unobtainable due to reduced consciousness Physical Exam Constitutional: + acute distress (pain, dyspnea), + ill appearing and + altered mental status patient very sickly Eyes: proptosis of eyes ENMT: Mouth: + oral mucosal abnormality (dry MM) Respiratory: + respiratory distress and + labored breathing Auscultation: + crackles and + wheezes Cardiovascular: Rate/Rhythm: + tachycardic Heart Sounds: normal S1, normal S2 and + murmur (systolic) Vessels: no JVD Extremities: + abnormal capillary refill (prolonged) Gastrointestinal (Abdomen): Inspection/Auscultation: + abdomen distended Percussion/Palpation: + abdomen tender (RLQ) large hernia LLQ Skin: hyperpigmentation of abdominal wall Neurologic: asterixis present Psychiatric: Orientation: + not alert and + not oriented x 3 Results & Data Vital Signs (Past 12 Hours) Vital Signs Temp Pulse Resp BP Pulse Ox 03/29/19 15:48 36.3 C L 107 H 18 80/48 L 98 03/29/19 07:22 36.7 C 111 H 20 90/52 L 94 (1) Cirrhosis Hepatic cirrhosis type: other cirrhosis Qualified Code(s): K74.69 - Other cirrhosis of liver (2) Aortic stenosis Cardiac valve disease etiology: etiology unspecified Qualified Code(s): I35.0 - Nonrheumatic aortic (valve) stenosis (3) Abdominal pain Abdominal location: right lower quadrant Qualified Code(s): R10.31 - Right lower quadrant pain
[2019-03-29] MEDS: LORATADINE 10 MG TAB PO SCH (21:07)
[2019-03-29] MEDS: ATORVASTATIN 10 MG TAB PO SCH (21:07)
[2019-03-30] MEDS ORDERED: SCOPOLAMINE 1.5 MG TDSY TD SCH (03:30)
[2019-03-30] MEDS: AMOXICILLIN/CLAVULANATE 875 MG TAB PO SCH (07:41)
[2019-03-30] MEDS: INSULIN ASPART 100 UNITS/ML 3 ML PEN SC SCH ×2 (07:41→11:30)
[2019-03-30] MEDS: CHECK SCOPOLAMINE PATCH PLACEMENT SCH ×2 (07:41→16:31)
[2019-03-30] MEDS: ARTIFICIAL TEARS OP SCH ×2 (07:42→20:23)
[2019-03-30] MEDS: SPIRONOLACTONE 25 MG TAB PO SCH (07:42)
[2019-03-30] MEDS: CHECK FENTANYL PATCH PLACEMENT SCH ×4 (07:42→16:32)
[2019-03-30] MEDS: BUMETANIDE 1 MG TAB PO SCH ×2 (07:43→16:32)
[2019-03-30] MEDS: PANTOprazole 40 MG TAB PO SCH ×2 (07:43→20:23)
[2019-03-30] MEDS: LACTULOSE SYRUP 20 GM/30 ML UDC PO SCH ×2 (07:43→20:22)
[2019-03-30] MEDS: predniSONE 20 MG TAB PO SCH (07:43)
[2019-03-30] MEDS: PENTOXIFYLLINE 400MG EXT REL TAB PO SCH ×2 (07:44→20:23)
[2019-03-30] MEDS: RIFAXIMIN 550 MG TABLET PO SCH ×2 (07:44→20:23)
[2019-03-30] MEDS: MoRPHine SULFATE PCA 50 MG/50ML SQ SCH ×2 (10:45→15:00)
[2019-03-30] MEDS ORDERED: ATROPINE SULFATE 1% OP SOLN 2 ML BTL SL PRN (10:49)
[2019-03-30] MEDS ORDERED: Nursing to Pharmacy Communication ONE ×2 (13:34→13:35)
[2019-03-30] MEDS: ATORVASTATIN 10 MG TAB PO SCH (20:23)
[2019-03-30] MEDS: LORATADINE 10 MG TAB PO SCH (20:23)
--- NOTE | 2019-03-30 20:29 | Infectious Disease Progress Nt ---
Date of Service March 30, 2019 Assessment & Plan (1) Abdominal wall cellulitis: Patient with treated bacterial peritonitis, improved abdominal wall cellulitis now transition to oral Augmentin. Fungal urinary tract infection treated with caspofungin and amphotericin B bladder irrigation. Patient now transition to comfort care, will discontinue ID follow-up at this time, please consult us if any further ID follow-up required. (2) Candidal UTI (urinary tract infection): (3) SBP (spontaneous bacterial peritonitis): Subjective Patient seen in follow-up for abdominal wall cellulitis, peritonitis, and Christina urinary tract infection. Appears to be slowly worsening. Now on comfort care. Review of Systems Review of Systems: Unobtainable due to cognitive status Physical Exam Constitutional: + ill appearing, comfortable and + lethargic; no acute distress Eyes: PERRL, conjunctivae normal, anicteric sclerae ENMT: external ear and nose normal, oropharynx normal Neck: trachea midline, no thyromegaly neck nontender Respiratory: normal respiratory effort, lungs clear to auscultation normal percussion; does not use accessory muscles Cardiovascular: RRR, no murmur, no edema Rate/Rhythm: regular rate and regular rhythm Heart Sounds: normal S1 and normal S2; no gallop, no murmur and no cardiac rub Vessels: normal peripheral pulses; no JVD Gastrointestinal (Abdomen): Inspection/Auscultation: + abdomen distended Percussion/Palpation: + abdomen tender (Left lower quadrant without rebound or guarding); no hepatomegaly and no abdominal mass Musculoskeletal: no cyanosis or clubbing, extremities motor strength 5/5 Spine: thoracic spine normal to inspection and lumbar spine normal to inspection; no cervical spinal tenderness Skin: no rashes, warm and dry normal turgor Neurologic: moves all extremities; no focal motor deficits Psychiatric: Lethargic, not responding to questions Lymphatic: no cervical or axillary lymphadenopathy no inguinal lymphadenopathy Results & Data Laboratory Results Laboratory Results - last 48 hr 03/28/19 03/29/19 03/29/19 20:45 07:43 11:53 POC Glucose 94 82 79 03/29/19 03/29/19 03/30/19 16:39 20:15 07:15 POC Glucose 79 73 57 L* 03/30/19 08:02 POC Glucose 57 L* Diagnostic Findings Microbiology 03/13/19 Unknown Peritoneal Fluid Acid Fast Bacilli Smear - Final 03/13/19 Unknown Peritoneal Fluid Acid Fast Bacilli Culture - Preliminary No Acid-Fast Bacilli Isolated - Report 2, Additional Report to Follow. 03/19/19 18:37 Urine,Indwelling Cath Urine Culture - Final Christina glabrata 03/13/19 Unknown Peritoneal Fluid Gram Stain - Final 03/13/19 Unknown Peritoneal Fluid Aerobic and Anaerobic Culture - Final Cutibacterium (Propioni) acnes 03/12/19 20:44 Blood Blood Culture - Final No growth 03/12/19 20:31 Blood Blood Culture - Final No growth
--- NOTE | 2019-03-30 21:00 | Hospitalist Progress Note ---
Date of Service March 30, 2019 Assessment & Plan (1) Palliative care encounter: Patient has now transitioned to comfort care pathway. Increase morphine infusion to 2mg/hr. It is a subcutaneous drip thus we will be limited with how much we can increase the drip. Add atropine drops. Cont scopalmine patch. NC O2. Verma. Cont fentanyl patch. Support given to family/friends. [employer] resource engineer contacted and indeed came to bedside to offer spiritual support & prayer. Anticipate pt's passing in the next 12-24 hours. Subjective patient obtunded during my visit girgling breath sounds, apneas noted last FSBS was very low and last BP was 60s systolic numerous family/friends at bedside including his Review of Systems Review of Systems: Unobtainable due to reduced consciousness Physical Exam Physical Exam: gen - unresponsive, girgling breath sounds, distress mouth - MM dry heart - tachy, s1, s2, 2/6 holosystolic murmur lungs - diffuse rales & rhonchi/wheeze, resp distress with retractions abd - distended NT large hernia present ext - cool, pulses thready, cap refill delayed, 2-3+ edema
[2019-03-31] MEDS: CHECK FENTANYL PATCH PLACEMENT SCH ×2
[2019-03-31] MEDS: CHECK SCOPOLAMINE PATCH PLACEMENT SCH
--- NOTE | 2019-04-05 21:14 | Discharge Summary ---
Date of Service date of admission - 03/12/2019 date of - 03/31/2019 Admission HPI Per Admitting Provider Mr. Santiago is a 64yo male with multiple medical comorbidities including cirrhosis of the liver, sarcoidosis, chronic steroid use, chronic lumbar back pain, aortic stenosis, and T2DM who presented with metabolic encephalopathy. Patient's and sister were at bedside and provided the majority of the history secondary to patient's altered mental status. Patient stated that he "feels really sick" but was unable to provide further details. Patient felt well on Monday and was at his baseline functional level. reported that yesterday patient became more confused. He was complaining of severe nausea with multiple episodes of non-bloody/non-bilious emesis. Also with weakness and fatigue. Also with worsening bilateral LE edema. Frequent falls at home. Patient had large volume paracentesis performed on 02/22/19. Denied fevers/headache/visual changes/neck pain. No abdominal pain/diarrhea/melena/hematochezia/hematemesis. No new medications. No sick co ntacts or recent travel. Principal Diagnosis spontaneous bacterial peritonitis 2nd to end-stage cirrhosis Discharge Exam Constitutional + acute distress (pain, dyspnea), + ill appearing and + altered mental status ENMT Mouth: + oral mucosal abnormality (dry MM) Respiratory + respiratory distress and + labored breathing Auscultation: + diminished lung sounds (bases), + crackles and + wheezes; no rhonchi Cardiovascular Rate/Rhythm: regular rhythm and + tachycardic Heart Sounds: normal S1, normal S2 and + murmur (systolic) Vessels: posterior tibial pulses present and dorsalis pedis pulses present; no JVD Extremities: + pedal edema (2 + b/l); + abnormal capillary refill (prolonged) Gastrointestinal (Abdomen) Inspection/Auscultation: + abdomen distended, + abdominal wall ecchymosis, + abdominal edema (left flank) and + visible herniation (large, LLQ) Percussion/Palpation: + abdomen tender (RLQ); no hepatomegaly Psychiatric Orientation: + not alert and + not oriented x 3 Discharge Data Allergies Allergy/AdvReac Type Severity Reaction Status Date / Time celecoxib Allergy Intermediate HIVES Verified 03/12/19 19:07 Penicillins Allergy Intermediate HIVES Verified 03/12/19 19:07 Consultations Consult Gastroenterology Routine Consult Nephrology Routine Consult Urology Routine Consult Infectious Diseases Routine Consult Psychiatry Routine Consult Palliative Care Routine PT, OT Ordered Studies 03/12/19 15:27 CT head/brain wo con Stat 03/13/19 10:24 US paracentesis abd w/image Urgent 03/14/19 12:21 US renal/blad retro comp Routine 03/17/19 11:56 CT abd pelvis wo con Routine 03/21/19 08:14 US venous doppler LE BI Routine 03/28/19 18:42 CT abd pelvis wo con Urgent Hospital Course (1) SBP (spontaneous bacterial peritonitis): (2) Cognitive impairment: (3) Hyponatremia: (4) Candidal UTI (urinary tract infection): (5) Abdominal wall cellulitis: (6) Cirrhosis: (7) Hepatic encephalopathy: (8) Abdominal pain: (9) Hematuria: (10) CKD stage 3 due to type 2 diabetes mellitus: (11) LETTY (acute kidney injury): (12) Aortic stenosis: (13) Anemia: (14) Nausea & vomiting: (15) Steroid long-term use: (16) Sarcoidosis: (17) Anxiety: (18) DM type 2 (diabetes mellitus, type 2): (19) Depression: (20) Hyperlipidemia: (21) GERD (gastroesophageal reflux disease): (22) Lumbar stenosis with neurogenic claudication: (23) Palliative care encounter: The patient had a protracted hospitalization marked by spontaneous bacterial peritonitis, failure to thrive, abdominal wall cellulitis, candidal glabrata UTI, gross hematuria, hepatic encephalopathy/metabolic encephalopathy, depression, acute kidney injury, feeding intolerance due to persistent nausea, etc. Despite maximal medical efforts, treatment of all infectious processes, and supp ortive care he never made much improvement. Palliative care discussions were held with the patient and his family, and he was ultimately initiated on a comfort care pathway. For a brief period of time the goal was for the patient to discharge to a local personal jail with hospice in place. However, he worsened rapidly with development of acute kidney injury, respiratory distress, and worsening mentation in the 2-3 days before his . As a result he was placed on morphine infusion and remained on such until his passing on 03/31/2019. Time of 0345 per nursing documentation. Total Time Total Time Spent Total Time Spent (In Minutes): 30 Discharge Plan Discharge Items Patient Disposition: Admission Data Admit Date/Time: 03/12/19 18:56 Service: Medical Other DC Date/Time DO NOT enter until pt leaves facility: 03/31/19 03:45
== END 2019-03-31 03:45 | disposition expired | DRG 373 ==
LOC: ED 15:02 → 4E 18:56 → SUATTDRO 18:56 → 4E 19:13
DX: K65.2 Spontaneous bacterial peritonitis